=== PATIENT | female | born 1955 | race Caucasian/White ===

== ENCOUNTER → 2016-11-30 | Outpatient (CLI) | payer BC ==
[~2016-11-30] MED LIST: ACYC-251 PO; ALBU1AER9 INH; AMOX500C3 PO; B-COTAB18 PO; BACTRIM PO; BECL0.3A INH; BUTO10SO; CALC600T9 PO; CETI10TA84 PO; CLON1TAB3 PO; COEN1CAP28 PO; CYAN1LOZ; DIPH1TAB PO; DNSIS60 INJ; DOCU-94 PO; ENOX40IN SQ; ERGO1CAP41 PO; FENT75DI2 TOP; FLORAGEN PO; FOLI1TAB7 PO; ITRA100C PO; LACTONEX PO; MAGN1TAB41 PO; METH-307 PO; MULTTAB58 PO; NRN400 PO; OXYC1TAB3 PO; OXYSR/20 PO; POTA20TA13 PO; QUET1TAB10 PO; TOPI200T20 PO; TPRSR/25 PO; TRIM100T20 PO; TRMCR130WC TOP; VITA400C15 PO
[2016-11-30 18:16] LABS: BASO % 0.2 %; BASO ABS # 0.01 K/uL (0-0.2); COMPLETE YES; HEMATOCRIT 35.4 % (37-47); IG% 0.3 %; LYMPH % 27.1 %; LYMPH ABS # 1.56 K/uL (1.2-3.4); MEAN CELL VOLUME 106.3 fL (80-100); MEAN CORPUSCULAR HEMOGLOBIN 34.2 pg (25-34); MEAN CORPUSCULAR HGB CONC 32.2 g/dl (32-36); MEAN PLATELET VOLUME 10.8 fL (7.4-10.4); MONO % 19.3 %; NEUT % 49.1 %; PLATELET COUNT 136 K/uL (130-400); RED BLOOD COUNT 3.33 M/uL (4.2-5.4); WHITE BLOOD COUNT 5.76 K/uL (4.8-10.8)
[2016-11-30 19:33] LABS: ALKALINE PHOSPHATASE 93 U/L (45-117); AST/SGOT 35 U/L (15-37); BLOOD UREA NITROGEN 9 mg/dl (7-18); BUN/CREATININE RATIO 6.5 (10-20); CALCIUM 8.9 mg/dl (8.5-10.1); CARBON DIOXIDE 27 mmol/L (21-32); CHLORIDE 109 mmol/L (98-107); GLUCOSE 97 mg/dl (70-99); POTASSIUM 5.1 mmol/L (3.5-5.1); SODIUM 142 mmol/L (136-145)
[2016-11-30 19:35] LABS: ALT/SGPT 73 U/L (12-78)
[2016-12-01 06:28] LABS: ESTIMATED AVERAGE GLUCOSE 123 mg/dl; HA1C FLAG Normal (Normal)
--- NOTE | 2016-12-06 12:19 | CODING QUERY MEDICAL NECESSITY ---
SUPPORTING DIAGNOSIS NEEDED A supporting diagnosis is required for the test/procedure performed on this patient in order for us to be reimbursed by the patient's insurance. Please provide a supporting diagnosis for the following test/procedure listed below next to the test name along with your signature. *If there is no additional diagnosis for this patient that would support the following test/procedure please document that below next to the test/procedure. Test(s)/Procedure(s) that require a supporting diagnosis: * GLYCATED HEMOGLOBIN DIAGNOSIS: * DOS: 11/30/16 Provider Signature: Date: Thank you Zeina Molina Health Information Management Once completed, please kindly fax back to [phone] For questions please call [phone]
== END | disposition home or self-care (01) ==
LOC: C.LABBFT 12:48
PROVIDERS: ATTEND Internal Medicine
DX: D64.9 Anemia, unspecified (principal); E55.9 Vitamin D deficiency, unspecified; R73.03 Prediabetes; Z51.81 Encounter for therapeutic drug level monitoring; Z79.01 Long term (current) use of anticoagulants; Z86.718 Personal history of other venous thrombosis and embolism

== ENCOUNTER → 2016-12-20 | Outpatient (CLI) | payer BC ==
[2016-12-20 14:17] LABS: BASO % 0.1 %; BASO ABS # 0.01 K/uL (0-0.2); COMPLETE YES; EOS % 1.4 %; HEMATOCRIT 36.5 % (37-47); IG% 0.5 %; LYMPH % 20.3 %; MEAN CELL VOLUME 103.4 fL (80-100); MEAN CORPUSCULAR HEMOGLOBIN 33.7 pg (25-34); MEAN CORPUSCULAR HGB CONC 32.6 g/dl (32-36); MEAN PLATELET VOLUME 10.4 fL (7.4-10.4); MONO % 13.3 %; NEUT % 64.4 %; PLATELET COUNT 123 K/uL (130-400); RED BLOOD COUNT 3.53 M/uL (4.2-5.4); WHITE BLOOD COUNT 8.87 K/uL (4.8-10.8)
[2016-12-20 15:21] LABS: BLOOD UREA NITROGEN 15 mg/dl (7-18); BUN/CREATININE RATIO 12.4 (10-20); CALCIUM 8.4 mg/dl (8.5-10.1); CARBON DIOXIDE 23 mmol/L (21-32); CHLORIDE 109 mmol/L (98-107); GLUCOSE 99 mg/dl (70-99); POTASSIUM 4.2 mmol/L (3.5-5.1); SODIUM 142 mmol/L (136-145)
== END | disposition home or self-care (01) ==
LOC: C.LAB 13:00
PROVIDERS: ATTEND Urology
DX: N13.30 Unspecified hydronephrosis (principal)

== ENCOUNTER 2017-01-11 13:00 | Day surgery (SDC) | payer BC ==
[2016-12-28 13:38] VITALS: BMI 34.0
[~2017-01-11] VITALS: Ht 154.9 cm; Wt 81.8 kg
[~2017-01-11 13:00] MED LIST changes: -BACTRIM PO; +CIPROFLOXACIN / D5W 400 MG IV SCH; -DIPH1TAB PO; -FLORAGEN PO; +GENTAMICIN INJ 80 MG in DEXTROSE 5% 100ML 100 ML IV SCH; -ITRA100C PO; +LACTATED RINGER'S 1000ML 1,000 ML IV SCH
--- NOTE | 2017-01-11 13:17 | History & Physical Bridge Note ---
H&P Re-Evaluation Bridge Note: I have examined the patient, reviewed the History & Physical and in the interval since the performance of the History & Physical I have noted the following changes of clinical significance: No changes noted
[2017-01-11 13:23] VITALS: BP 117/61; PULSE 73; TEMP 36.9; O2SAT 92; Ht 154.9 cm; Wt 81.8 kg
[2017-01-11] MEDS ORDERED: PROPOFOL IV EMULSION 10 MG/ML 20 ML VIAL IV ONE (13:43)
[2017-01-11] MEDS ORDERED: DEXAMETHASONE SOD INJ 4 MG/ML VIAL ONE (13:43)
[2017-01-11] MEDS ORDERED: FENTANYL CITRATE INJ 50 MCG/1 ML 2 ML VIAL ONE (13:43)
[2017-01-11] MEDS ORDERED: ONDANSETRON INJ 2 MG/ML 2 ML VIAL ONE (13:43)
[2017-01-11] MEDS ORDERED: LIDOCAINE HCL 2% 2 ML VIAL (20MG/ML) ONE (13:43)
[2017-01-11] MEDS ORDERED: MIDAZOLAM HCL 1 MG/ML 2ML VIAL ONE (13:43)
[2017-01-11] MEDS ORDERED: CONRAY 30% 150ML BOTTLE ONE (14:24)
[2017-01-11] MEDS ORDERED: ONDANSETRON INJ 2 MG/ML 2 ML VIAL IV PRN (14:30)
[2017-01-11] MEDS ORDERED: ATROPINE SULFATE 0.1 MG/ML 5ML SYR IV PRN (14:30)
[2017-01-11] MEDS ORDERED: FENTANYL CITRATE INJ 50 MCG/1 ML 2 ML VIAL IV PRN (14:30)
[2017-01-11] MEDS ORDERED: TRIM100T20 PO (15:05)
--- NOTE | 2017-01-11 15:06 | [facility] Post Operative Brief Note ---
Immediate Operative Summary Operative Date Jan 11, 2017. Pre-Operative Diagnosis Chronic Bilateral Hydronephrosis Post-Operative Diagnosis Chronic Bilateral Hydronephrosis Procedure(s) Performed Cystoscopy, Right Retrograde Pylography; Bilateral Stent Exchange Surgeon Dr. Sean Barrett Sales Office Administrator Surgeon(s) none Estimated Blood Loss 0 cc Findings Bilateral stents in good position Specimens none per surgeon Drains 6 fr 24 cm JJ bilateral ureteral stents Anesthesia MAC Complication(s) None Disposition Recovery Room / PACU
--- NOTE | 2017-01-11 15:10 | Discharge Instructions ---
Discharge Instructions Date of Service Jan 11, 2017. Admission Reason for Admission: Bilateral Hydronephrosis Discharge Discharge Diagnosis / Problem: Bilateral hydro s/p stent exchange Discharge Goals Goal(s): Improve function, Improve disease control, Therapeutic intervention Activity Recommendations Activity Limitations: resume your previous activity Lifting Limitations: none Exercise/Sports Limitations: as tolerated May Resume Sexual Activity: when tolerated Shower/Bathe: no limitations Driving or Machine Use: resume 1 day after discharge . Instructions / Follow-Up Instructions / Follow-Up As scheduled Discharge Diet Recommended Diet: Regular Diet (good fluid intake) Procedures Procedures Performed: Cystoscopy, stent exchange Pending Studies Studies pending at discharge: no Laboratory Results Hemoglobin A1c Test 11/30/16 14:41 Range/Units Estimated Average Glucose 123 mg/dl Hemoglobin A1c 5.9 H 4.5-5.6 % Medical Emergencies . Who to Call and When: Medical Emergencies: If at any time you feel your situation is an emergency, please call 911 immediately. . Non-Emergent Contact Non-Emergency issues call your: Urologist Call Non-Emergent contact if: you have a fever, temperature is above 101, your pain is not controlled, your pain is worsening, your pain is unusual for you, your pain is concerning you, you have any medication questions . . "Provider Documentation" section prepared by Theo Barrett. VTE Core Measure Inpt VTE Proph given/why not?: SCD's
[2017-01-11] MEDS ORDERED: OXYCODONE HCL IR 5 MG TAB (IMMEDIATE RELEASE) PO PRN (15:15)
[2017-01-11] MEDS ORDERED: PHENAZOPYRIDINE HCL 100 MG TAB PO PRN (15:15)
--- NOTE | 2017-01-11 15:21 | DIAGNOSTIC IMAGING REPORT ---
RETROGRADE INCLUDES KUB HISTORY: BILATERAL RETROGRADES AND STENT EXCHANGE FLUOROSCOPY TIME: 1 minute. FINDINGS: 6 fluoroscopic spot images were submitted for review. Initial images demonstrate retrograde opacification of the right renal collecting system. This is followed by bilateral ureteral stent placement. Only the proximal portion of the stents are visualized and appear to be in good position. IMPRESSION: Fluoroscopy provided for bilateral ureteral stent placement. Electronically signed by: Jimi Bangura M.D. 01/11/2017 3:20 PM Dictated Date/Time: 01/11/2017 3:19 PM
--- NOTE | 2017-01-11 15:33 | OPERATIVE REPORT ---
DATE OF OPERATION: 01/11/2017 PREOPERATIVE DIAGNOSIS: Chronic bilateral hydronephrosis with history of renal failure managed with indwelling stents. POSTOPERATIVE DIAGNOSIS: Same. PROCEDURE: Cystoscopy, right retrograde pyelography, bilateral ureteral stent exchange. SURGEON: Dr. Theo Barrett. INTERIOR ASSEMBLIES INSTALLER: None. ANESTHESIA: Monitored anesthesia care with sedation. COMPLICATIONS: None. FINDINGS: Good stent position on both sides. DRAINS LEFT IN PLACE: Include a 6-Australian 24 cm firm Cook ureteral stent. FINDINGS: Partially encrusted stents on both sides able to be removed easily, good stent position is noted. SPECIMENS SENT TO PATHOLOGY: None. BRIEF HISTORY: Ms. Duron is a 61-year-old female who I have seen as an outpatient for history of bilateral indwelling ureteral stents to manage her chronic hydronephrosis and renal failure. She has been moved to 4 month stent exchanges due to incrustation at her last visit. Please see H\T\P for further details. She is covered with appropriate antibiotics and has been treated preoperatively for a positive urine culture. SCDs used for DVT prophylaxis today. PROCEDURE: The patient was properly identified and brought to the operative suite. After identification and appropriate consent in the chart, monitored anesthesia care with sedation was initiated and the patient was prepped and draped in standard fashion for this procedure. time study technologist-out procedure was followed. A 22-Australian rigid cystoscope was passed into the bladder under direct visualization and bladder was surveyed in its entirety demonstrating inflamed mucosa and a posterior defect from her indwelling pessary. Stents were present bilaterally with some mild encrustation. The right-sided stent was grasped and brought down to the level of the meatus and attempted to be cannulated, but due to the distal stone accumulation could not be cannulated at the level of the kidney. Wire was able to be placed alongside the stent; however, without difficulties and up to the level of the renal pelvis. Stent was removed and open ended catheter was advanced over the wire. Collecting system was opacified and wire was replaced. A 6 Australian 24 cm double-J stent was advanced with a full coil present within the renal pelvis and a full coil present within the bladder. Attention was then turned to the left hand side. The position of the stent was inspected. The right side was used as a landmark and therefore left side retrograde pyelography was not performed. The wire was simply passed alongside the stent which was then removed. A 6 Australian 24 cm double-J ureteral stent was advanced with a full coil present within the bladder and a full coil at the level of the renal pelvis. Bladder was drained, the cystoscope was removed, anesthesia was reversed. The patient was transferred to recovery room in stable condition. FOLLOW-UP CARE: We will extend the patient's course of preoperative trimethoprim for a few days. No analgesics in the postoperative period. We will keep it 4 month stent exchanges seeing her findings today. The patient's postoperative appointment is confirmed. The patient is instructed to contact us should she note any fevers, chills, nausea, vomiting, or any other significant difficulties in the postoperative period. I attest to the content of the Intraoperative Record and any orders documented therein. Any exceptio ns are noted below.
--- NOTE | 2017-01-11 15:40 | Anesthesiology Progress Note ---
Anesthesia Post Op Note Date & Time Jan 11, 2017 at 15:40 Vital Signs Vital Signs Past 12 Hours Date Time Temp Pulse Resp B/P Pulse Ox O2 Delivery O2 Flow Rate FiO2 01/11/17 15:35 36.7 59 16 102/56 98 Room Air 01/11/17 15:25 36.7 61 16 99/59 97 Room Air 01/11/17 15:15 66 16 104/60 99 Room Air 01/11/17 15:06 36.7 69 16 87/56 99 Room Air 01/11/17 13:23 36.9 73 18 117/61 92 Room Air Notes Mental Status: alert / awake / arousable, participated in evaluation Pt Amnestic to Procedure: Yes Nausea / Vomiting: adequately controlled Pain: adequately controlled Airway Patency, RR, SpO2: stable & adequate BP & HR: stable & adequate Hydration State: stable & adequate Anesthetic Complications: no major complications apparent
[2017-01-11 15:47] VITALS: BP 109/61; PULSE 65; TEMP 36.7; O2SAT 100
[2017-01-11 16:15] VITALS: BP 99/55; PULSE 60; TEMP 36.6; O2SAT 97
[2017-01-11 16:44] VITALS: BP 114/59; PULSE 62; TEMP 36.6; O2SAT 95
[2017-04-30] MEDS ORDERED: FLORAGEN PO (09:07)
[2017-04-30] MEDS ORDERED: BACTRIM PO (09:15)
[2017-04-30] MEDS ORDERED: DIPH1TAB PO (09:15)
[2017-06-08] MEDS ORDERED: ITRA100C PO (15:13)
== END 2017-01-11 16:45 | disposition home or self-care (01) ==
LOC: C.ACU 13:00
PROVIDERS: ATTEND Urology
DX: N13.30 Unspecified hydronephrosis (principal); Z46.6 Encounter for fitting and adjustment of urinary device; R33.9 Retention of urine, unspecified; N39.0 Urinary tract infection, site not specified; N81.11 Cystocele, midline; I12.9 Hypertensive chronic kidney disease with stage 1 through stage 4 chronic kidney disease, or unspecified chronic kidney disease; N18.3 Chronic kidney disease, stage 3 (moderate); E78.5 Hyperlipidemia, unspecified; K21.9 Gastro-esophageal reflux disease without esophagitis; M81.0 Age-related osteoporosis without current pathological fracture; D64.9 Anemia, unspecified; I20.9 Angina pectoris, unspecified; J45.909 Unspecified asthma, uncomplicated; J90 Pleural effusion, not elsewhere classified; I42.9 Cardiomyopathy, unspecified; J44.9 Chronic obstructive pulmonary disease, unspecified; B19.20 Unspecified viral hepatitis C without hepatic coma

== ENCOUNTER → 2017-02-26 | Outpatient (CLI) | payer BC ==
[~2017-02-26] MED LIST changes: +ACYC-223 PO; -ACYC-251 PO; +ALBU18002 INH; +AMX875 PO; +BACTRIM PO; +CALC600T37 PO; -CIPROFLOXACIN / D5W 400 MG IV SCH; +DIPH1TAB87 PO; -ERGO1CAP41 PO; +ERGO500011 PO; +FLORAGEN PO; -GENTAMICIN INJ 80 MG in DEXTROSE 5% 100ML 100 ML IV SCH; +ITRA100C PO; -LACTATED RINGER'S 1000ML 1,000 ML IV SCH; +METO-452 PO; +OXYC20TA50 PO; +PROBCAP2 PO; +QVRINH80 INH; +STDN; +TOPI100T34 PO; +TRIM100T2 PO; -TRIM100T20 PO; +VITA400C3 PO
== END | disposition home or self-care (01) ==
LOC: C.LAB1850 14:18
PROVIDERS: ATTEND Internal Medicine Rheumatology
DX: M81.0 Age-related osteoporosis without current pathological fracture (principal); S62.101A Fracture of unspecified carpal bone, right wrist, initial encounter for closed fracture; X58.XXXA Exposure to other specified factors, initial encounter

== ENCOUNTER → 2017-04-02 | Outpatient (CLI) | payer BC | END | disposition home or self-care (01) | LOC: C.MAMM 12:50 | PROVIDERS: ATTEND Internal Medicine Rheumatology | DX: M81.0 Age-related osteoporosis without current pathological fracture (principal); S62.101A Fracture of unspecified carpal bone, right wrist, initial encounter for closed fracture; X58.XXXA Exposure to other specified factors, initial encounter ==

== ENCOUNTER → 2017-04-17 | Outpatient (CLI) | payer BC ==
[~2017-04-17] MED LIST changes: -ACYC-223 PO; +ACYC-251 PO; -ALBU18002 INH; -AMX875 PO; -BACTRIM PO; -CALC600T37 PO; -DIPH1TAB87 PO; +ERGO1CAP41 PO; -ERGO500011 PO; -FLORAGEN PO; -ITRA100C PO; -METO-452 PO; -OXYC20TA50 PO; -PROBCAP2 PO; -QVRINH80 INH; -STDN; -TOPI100T34 PO; -TRIM100T2 PO; +TRIM100T20 PO; -VITA400C3 PO
== END | disposition home or self-care (01) ==
LOC: C.LAB1850 14:39
PROVIDERS: ATTEND Internal Medicine Rheumatology
DX: M81.0 Age-related osteoporosis without current pathological fracture (principal)

== ENCOUNTER → 2017-04-25 | Outpatient (CLI) | payer BC ==
[~2017-04-25] MED LIST changes: +ALBU18002 INH; +BACTRIM PO; +DIPH1TAB PO; +FLORAGEN PO; +ITRA100C PO; +METO1TAB66 PO; +OXYC20TA50 PO; +PROBCAP2 PO; +QVRINH80 INH; +TOPI100T34 PO; +VITA400C3 PO
--- NOTE | 2017-04-25 08:00 | DIAGNOSTIC IMAGING REPORT ---
ABDOMEN COMPLETE (US) CLINICAL HISTORY: FOLLICULAR LYMPHOMA COMPARISON STUDY: 09/12/2016 FINDINGS: The liver is of slightly increased echogenicity. No focal hepatic masses are visualized. The gallbladder is mildly distended. Tiny calculi are visualized. There is no gallbladder wall thickening. The common bile duct measures 7 mm. No pancreatic masses are visualized. There is mild splenic enlargement (13.7 cm). The right kidney measures 9.6 cm in length. The left kidney measures 10.9 cm in length. 2 left renal cysts are visualized measuring 1 cm in diameter. The IVC appear normal as visualized. There is no evidence of abdominal aortic dilatation. The distal abdominal aorta was nonvisualized. IMPRESSION: 1. Slight increase in hepatic echogenicity. No focal hepatic masses identified 2. Mild gallbladder distention. Cholelithiasis. 3. 7 mm common bile duct. 4. Mild splenomegaly Electronically signed by: Octavio Penny M.D. 04/25/2017 7:58 AM Dictated Date/Time: 04/25/2017 7:55 AM
--- NOTE | 2017-04-25 08:06 | DIAGNOSTIC IMAGING REPORT ---
CT SCAN OF THE CHEST WITHOUT IV CONTRAST CLINICAL HISTORY: 62-year-old female with history of follicular lymphoma; reported additional history of lung cancer. COMPARISON STUDY: 08/10/2016 and additional priors dating back to 07/26/2015. TECHNIQUE: CT scan of the thorax was performed from the thoracic inlet to the upper abdomen. Images are reviewed in the axial, sagittal, and coronal planes. IV contrast was not administered for this examination. CT DOSE: 340.75 mGy.cm FINDINGS: On soft tissue windows, normal thyroid and thoracic inlet are noted. No axillary lymphadenopathy. Mildly prominent subcentimeter mediastinal lymph nodes in the tracheal and precarinal regions, which have slightly decreased in size from prior exams. The largest node measures 7 mm in short axis (series 4 image 99), previously 8 mm in July 2016 and 11 mm in July 2015. Few small pericardial lymph nodes also noted, unchanged. Aortic arch atherosclerosis with a normal caliber aorta. Main pulmonary artery mildly enlarged measuring 3.1 cm in transverse dimension. Coronary artery calcification noted. Normal heart size. No pericardial or pleural effusion. The upper abdomen demonstrates a liver density from 40-45 Hounsfield units, suggestive of mild steatosis. Few calcifications in the spleen may relate to prior injury, infarct or old granulomatous disease. Few prominent lymph nodes in the celiac axis measure up to 10 mm in short axis (series 4 image 264), unchanged from prior. On lung windows, emphysematous changes in the mid to upper lungs again noted. Reticular opacities extending from the right hilum to the bandlike peripheral consolidation at the right apex in the subpleural/pleural based region of the anterior segment of the right upper lobe. This measures approximately 3.2 x 1.1 cm, previously 3.6 x 1.2 cm. Minimal reticular opacities noted dependently at the right lung base and anterolaterally in the left upper lobe, possibly mild fibrotic changes. No new pulmonary nodule or mass. On bone windows, at the site of chronic right anterior second and third rib deformities, increased dense callus or soft tissue noted at the anterior right second rib deformity over time, although unchanged from most recent prior. This may represent slow healing; attention on follow-up. No new destructive osseous lesion. IMPRESSION: 1. Stable appearance of the consolidative subpleural/pleural based changes in the right upper lobe. No new pulmonary nodule or mass. 2. Emphysema. 3. Continued slight interval decreased prominence of mediastinal lymph nodes. No new lymphadenopathy. Electronically signed by: Babar Kaur 04/25/2017 8:04 AM Dictated Date/Time: 04/25/2017 7:40 AM
== END | disposition home or self-care (01) ==
LOC: C.ULTR 07:04
PROVIDERS: ATTEND Nurse Practitioner Family
DX: C82.10 Follicular lymphoma grade II, unspecified site (principal); J43.9 Emphysema, unspecified; N13.30 Unspecified hydronephrosis

== ENCOUNTER → 2017-04-25 | Outpatient (CLI) | payer BC | END | disposition home or self-care (01) | LOC: C.LAB 12:45 | PROVIDERS: ATTEND Urology | DX: N13.30 Unspecified hydronephrosis (principal) ==

== ENCOUNTER 2017-05-10 09:57 | Day surgery (SDC) | payer BC ==
[2017-04-30 09:08] VITALS: BMI 34.0
[~2017-05-10] VITALS: Ht 154.9 cm; Wt 81.8 kg
[~2017-05-10 09:57] MED LIST changes: -ACYC-251 PO; -ALBU18002 INH; +ATROPINE SULFATE 0.1 MG/ML 5ML SYR IV PRN; +CIPROFLOXACIN / D5W 400 MG IV SCH; +EpHEDrine SULFATE INJ 50 MG/ML AMP IV PRN; +FENTANYL CITRATE INJ 50 MCG/1 ML 2 ML VIAL IV PRN; -ITRA100C PO; +LACTATED RINGER'S 1000ML 1,000 ML IV SCH; -LACTONEX PO; -METO1TAB66 PO; +ONDANSETRON INJ 2 MG/ML 2 ML VIAL IV PRN; -OXYC20TA50 PO; -PROBCAP2 PO; -QVRINH80 INH; -TOPI100T34 PO; -TRIM100T20 PO; -VITA400C3 PO
[2017-05-10] MEDS ORDERED: ACYC-251 PO (10:42)
[2017-05-10 10:49] VITALS: BP 99/58; PULSE 89; TEMP 37.3; O2SAT 93; Ht 154.9 cm; Wt 81.8 kg
[2017-05-10] MEDS ORDERED: NURSING VERBAL MED ORDER ONE (11:30)
[2017-05-10] MEDS ORDERED: LIDOCAINE HCL 2% 2 ML VIAL (20MG/ML) ONE (11:31)
[2017-05-10] MEDS ORDERED: PROPOFOL IV EMULSION 10 MG/ML 20 ML VIAL IV ONE (11:31)
[2017-05-10] MEDS ORDERED: MIDAZOLAM HCL 1 MG/ML 2ML VIAL ONE ×2 (11:31→12:49)
[2017-05-10] MEDS ORDERED: FENTANYL CITRATE INJ 50 MCG/1 ML 2 ML VIAL ONE (11:32)
[2017-05-10] MEDS ORDERED: CONRAY 30% 150ML BOTTLE ONE (12:21)
--- NOTE | 2017-05-10 13:16 | Discharge Instructions ---
Discharge Instructions Date of Service May 10, 2017. Admission Reason for Admission: Bilateral Hydronephrosis Discharge Discharge Diagnosis / Problem: Bilateral hydronephrosis with indwelling stents Discharge Goals Goal(s): Improve function, Improve disease control Activity Recommendations Activity Limitations: as noted below Lifting Limitations: no more than 25 pounds, gradually increase as tolerated Exercise/Sports Limitations: rest today, gradually increase as tolerated May Resume Sexual Activity: when tolerated Shower/Bathe: no limitations Driving or Machine Use: resume 1 day after discharge . Instructions / Follow-Up Instructions / Follow-Up As scheduled in office No new prescriptions, complete antibiotics as prescribed Discharge Diet Recommended Diet: Regular Diet (good hydration) Procedures Procedures Performed: Cystoscopy, Bilateral Ureteral Stent Exchange Pending Studies Studies pending at discharge: no Medical Emergencies . Who to Call and When: Medical Emergencies: If at any time you feel your situation is an emergency, please call 911 immediately. . Non-Emergent Contact Non-Emergency issues call your: Urologist Call Non-Emergent contact if: you have a fever, temperature is above 101, your pain is not controlled, your pain is worsening, your pain is unusual for you, your pain is concerning you . . "Provider Documentation" section prepared by Theo Barrett. . VTE Core Measure Inpt VTE Proph given/why not?: SCD's
--- NOTE | 2017-05-10 13:19 | [facility] Post Operative Brief Note ---
Immediate Operative Summary Operative Date May 10, 2017. Pre-Operative Diagnosis Bilateral hydronephrosis, history of renal failure Post-Operative Diagnosis Bilateral hydronephrosis, history of renal failure Procedure(s) Performed Cystoscopy, Bilateral Ureteral Stent Exchange Surgeon Dr. Mirella Barrett Airport Ramp Agent Surgeon(s) none Estimated Blood Loss 0cc Findings Pessary in position, good stent position bilaterally after completion of case on fluoro Specimens None per surgeon Drains 6 fr 24 cm bilaterally Firm Cook in good position on fluoro Anesthesia MAC Complication(s) None Disposition Recovery Room / PACU
--- NOTE | 2017-05-10 13:21 | DIAGNOSTIC IMAGING REPORT ---
KUB HISTORY: 62 years Female B/L STENT EXCHANGE COMPARISON: Retrograde cystourethrogram images from 08/31/2016 TECHNIQUE: 2 anterior spot fluoroscopic images of the abdomen were obtained utilizing 39.1 seconds of fluoroscopy time. FINDINGS: The first image demonstrates a guidewire and stent on the right which appears to be in appropriate position, only the proximal portion is imaged. The second image demonstrates a left sided ureteral stent in place which appears to be in satisfactory position as well, only the proximal portion imaged. IMPRESSION: Bilateral proximal pigtail portions of the ureteral stents are imaged and appear to be in appropriate position. The above report was generated using voice recognition software. It may contain grammatical, syntax or spelling errors. Electronically signed by: Alfredo Yoder M.D. 05/10/2017 1:19 PM Dictated Date/Time: 05/10/2017 1:17 PM
--- NOTE | 2017-05-10 13:27 | [facility] Operative Report ---
Operative Report Operative Date May 10, 2017. Pre-Operative Diagnosis Bilateral hydronephrosis, history of renal failure Post-Operative Diagnosis Bilateral hydronephrosis, history of renal failure Procedure(s) Performed Cystoscopy, Bilateral Ureteral Stent Exchange Surgeon Dr. Mirella Barrett Occupational Health And Safety Officer Surgeon(s) none Estimated Blood Loss 0cc Findings Good stent position on fluoro, pessary in good position Specimens None per surgeon Drains 6 fr 24 cm bilaterally Firm Cook in good position on fluoro Anesthesia MAC Complication(s) None Disposition Recovery Room / PACU Indications Bilateral hydronephrosis managed with indwelling stents Description of Procedure Patient was properly identified and brought to the operative suite after identification for appropriate consent of the chart. Intravenous ciprofloxacin , which the patient is tolerated in the past, was used for antibiotic prophylaxis. SCDs were in place. Full timeout procedure was followed. Monitored anesthesia care with mask sedation was used for analgesia. Patient was prepped and draped in the standard fashion for this procedure that is in a dorsal lithotomy position. 22 [place]ese rigid cystoscope was passed into the bladder under direct visualization and posterior bladder wall defect from the patient's indwelling pessary was noted. This was appreciated to be in good position. Right-sided ureteral stent was grasped and brought down to the level of the meatus using a stent grasper. This was noted to be externally unencrusted but provided a small amount of resistance to passage of the wire through the lumen of the catheter. A sensor tip wire was therefore passed alongside the ureteral stent without difficulties up to the left of the right renal pelvis under fluoroscopic guidance. Indwelling stent was removed without problems and a 6 [place]ese 24 cm firm Cook ureteral stent was advanced with a full coil at the level of the ureteral orifice and a full coil in the right upper quadrant at the level of the kidney. Attention was then turned to the left- handed side where this procedure was repeated. Again stent was noted to be relatively on encrusted compared to previous baseline. Good position of the new stent was noted. Urine was noted to be clear within the bladder and mild erythema appreciated. No intravesical masses or calculi noted. Bladder was drained and cystoscope was removed. Sedation was reversed patient was transferred to the recovery room in stable condition. I attest to the content of the Intraoperative Record and any orders documented therein. Any exceptions are noted below.
[2017-05-10] MEDS ORDERED: OXYCODONE/ACETAMINOPHEN 5-325 TAB PO PRN ×2 (13:30)
--- NOTE | 2017-05-10 13:38 | Anesthesiology Progress Note ---
Anesthesia Post Op Note Date & Time May 10, 2017 at 13:38 Vital Signs Pain Intensity: 0 Vital Signs Past 12 Hours Date Time Temp Pulse Resp B/P (MAP) Pulse Ox O2 Delivery O2 Flow Rate FiO2 05/10/17 13:30 76 12 91/51 94 Room Air 05/10/17 13:20 76 10 99/51 98 Oxymask 5 05/10/17 13:14 36.8 79 10 93/50 98 Oxymask 9 05/10/17 10:49 37.3 89 20 99/58 (72) 93 Room Air Notes Mental Status: alert / awake / arousable, participated in evaluation Pt Amnestic to Procedure: Yes Nausea / Vomiting: adequately controlled Pain: adequately controlled Airway Patency, RR, SpO2: stable & adequate BP & HR: stable & adequate Hydration State: stable & adequate Anesthetic Complications: no major complications apparent
[2017-05-10 14:20] VITALS: BP 98/63; PULSE 71; O2SAT 95
[2017-05-10 15:00] VITALS: BP 95/57; PULSE 72; TEMP 36.6; O2SAT 93
[2017-06-08] MEDS ORDERED: ITRA100C PO (15:13)
[2017-07-31] MEDS ORDERED: TOPI100T34 PO (11:29)
[2017-07-31] MEDS ORDERED: QVRINH80 INH (11:29)
[2017-07-31] MEDS ORDERED: VITA400C3 PO (11:29)
[2017-07-31] MEDS ORDERED: OXYC20TA50 PO (11:29)
[2017-07-31] MEDS ORDERED: ALBU18002 INH (11:29)
[2017-07-31] MEDS ORDERED: PROBCAP2 PO (11:29)
[2017-07-31] MEDS ORDERED: METO1TAB66 PO (11:29)
== END 2017-05-10 14:50 | disposition home or self-care (01) ==
LOC: C.ACU 09:57
PROVIDERS: ATTEND Urology
DX: N13.30 Unspecified hydronephrosis (principal); J44.9 Chronic obstructive pulmonary disease, unspecified; I42.9 Cardiomyopathy, unspecified; N18.3 Chronic kidney disease, stage 3 (moderate); Z86.718 Personal history of other venous thrombosis and embolism; E78.5 Hyperlipidemia, unspecified; K21.9 Gastro-esophageal reflux disease without esophagitis; Z86.19 Personal history of other infectious and parasitic diseases; I12.9 Hypertensive chronic kidney disease with stage 1 through stage 4 chronic kidney disease, or unspecified chronic kidney disease; M81.0 Age-related osteoporosis without current pathological fracture; Z85.72 Personal history of non-Hodgkin lymphomas; Z87.81 Personal history of (healed) traumatic fracture; Z85.118 Personal history of other malignant neoplasm of bronchus and lung; Z87.440 Personal history of urinary (tract) infections; Z92.21 Personal history of antineoplastic chemotherapy; Z86.2 Personal history of diseases of the blood and blood-forming organs and certain disorders involving the immune mechanism; Z86.72 Personal history of thrombophlebitis; Z90.89 Acquired absence of other organs; Z83.3 Family history of diabetes mellitus; Z82.49 Family history of ischemic heart disease and other diseases of the circulatory system; Z87.891 Personal history of nicotine dependence; G89.29 Other chronic pain; Z79.01 Long term (current) use of anticoagulants; I34.1 Nonrheumatic mitral (valve) prolapse; Z86.73 Personal history of transient ischemic attack (TIA), and cerebral infarction without residual deficits; M19.90 Unspecified osteoarthritis, unspecified site; Z99.81 Dependence on supplemental oxygen; I25.10 Atherosclerotic heart disease of native coronary artery without angina pectoris; G62.9 Polyneuropathy, unspecified; F41.9 Anxiety disorder, unspecified

== ENCOUNTER → 2017-08-08 | Day surgery (SDC) | payer BC ==
[2017-07-31 11:32] VITALS: Ht 154.9 cm; Wt 84.1 kg
[~2017-08-08] VITALS: Ht 154.9 cm; Wt 84.1 kg
[~2017-08-08] MED LIST changes: +ACYC-251 PO; +ALBU18002 INH; -ALBU1AER9 INH; -ATROPINE SULFATE 0.1 MG/ML 5ML SYR IV PRN; -BACTRIM PO; -BECL0.3A INH; -BUTO10SO; -CIPROFLOXACIN / D5W 400 MG IV SCH; -CYAN1LOZ; -DIPH1TAB PO; -EpHEDrine SULFATE INJ 50 MG/ML AMP IV PRN; -FENTANYL CITRATE INJ 50 MCG/1 ML 2 ML VIAL IV PRN; -FLORAGEN PO; +ITRA100C PO; -LACTATED RINGER'S 1000ML 1,000 ML IV SCH; +LIDOCAINE HCL 2% 2 ML VIAL (20MG/ML) ONE; +METO1TAB66 PO; +MIDAZOLAM HCL 1 MG/ML 2ML VIAL ONE; -ONDANSETRON INJ 2 MG/ML 2 ML VIAL IV PRN; +ONDANSETRON INJ 2 MG/ML 2 ML VIAL ONE; +OXYC20TA50 PO; -OXYSR/20 PO; +PROBCAP2 PO; +PROPOFOL IV EMULSION 10 MG/ML 20 ML VIAL IV ONE; +QVRINH80 INH; +TOPI100T34 PO; -TOPI200T20 PO; -TPRSR/25 PO; -VITA400C15 PO; +VITA400C3 PO
--- NOTE | 2017-08-08 13:04 | Endo History and Physical ---
History & Physical Date of Service: Aug 08, 2017. Chief Complaint: History of colon polyps Referring Physician: Reynold Villegas History of Present Illness 62 yo CF who presents for colonoscopy secondary to history of colon polyps. Past Medical History Osteoporosis, Arthritis, Fractures, Asthma, Blood Dyscrasias, Cancer, Hypertension, Thrombophlebitis, COPD, Kidney Disease, CVA/TIA, Other, Depression Past Surgical History Hx Cardiac Surgery: No Hx Internal Defibrillator: No Hx Pacemaker: No Hx Abdominal Surgery: Yes (TUBAL LIGATION, LIVER BIOPSY) Hx of Implantable Prosthesis: No Hx Post-Op Nausea and Vomiting: No Hx Cancer Surgery: Yes (LUNG BIOPSY, LYMPH NODE BIOPSY) Hx Thoracic Surgery: Yes (BRONCHOSCOPIES) Hx Orthopedic: Yes (BURSA REMOVAL RT KNEE, RT ARM "NERVE RELEASE") Hx Urinary Tract Surgery: Yes (MULTIPLE URETAL STENTS) Family History None Social History Smoking Status: Former Smoker Hx Substance Use: No Hx Alcohol Use: Yes (QUIT 20-30 YEARS AGO) Allergies Coded Allergies: Levofloxacin (Verified Allergy, Intermediate, numbness/weakness, 07/31/17) Pt is OK to receive CIPRO Allopurinol (Verified Allergy, Unknown, rash, 07/31/17) BEE STING (Verified Allergy, Unknown, SWELLING AT SITE-SOB AT TIMES, 07/31) Iodinated Diagnostic Agents (Verified Allergy, Unknown, Hives, 07/31/17) Iodine (Verified Allergy, Unknown, HIVES, 07/31/17) Pregabalin (Verified Allergy, Unknown, fever?/?rash, 07/31/17) Magnolia (Verified Allergy, Unknown, HIVES, 07/31/17) Sulfa Antibiotics (Verified Allergy, Unknown, RASH, 07/31/17) Venlafaxine (Verified Allergy, Unknown, UNKNOWN, 07/31/17) Gluten (Verified Adverse Reaction, Severe, Celiac Dz = GI symptoms, ) Adhesives (Verified Adverse Reaction, Unknown, red torn skin, 07/31/17) BAND AIDS OKAY - [place] OKAY - PAPER TAPE OKAY Propoxyphene (Verified Adverse Reaction, Unknown, STEAM PIPE FITTER side effects, ) Current Medications Reported Home Medications Medications Dose Route/Sig Max Daily Dose Days Date Category Dose Instructions Florajen3 (Probiotic Product) 1 Cap Cap 1 Cap PO QAM 07/31/17 Reported Vitamin E 400 Iu (Vitamin E) 400 Unit Cap 400 Inter.unit PO QAM 07/31/17 Reported Qvar (Beclomethasone Dip) 80 Mcg/Act Aer 2 Puffs INH BID 07/31/17 Reported Proair Respiclick (Albuterol Sulfate) 108 Mcg/Act Aer 2 Puffs INH Q4H PRN 07/31/17 Reported Oxycontin (Oxycodone Hcl) 20 Mg Tab 1 Tab PO BID 07/31/17 Reported Topamax (Topiramate) 100 Mg Tab 100 Mg PO HS 07/31/17 Reported Toprol Xl (Metoprolol Succinate) 50 Mg Tab 50 Mg PO QAM 07/31/17 Reported Sporanox (Itraconazole) 100 Mg Cap 100 Mg PO BID 06/08/17 Reported Zovirax (Acyclovir) 800 Mg Tab 800 Mg PO QAM 05/10/17 Reported WILL COMPLETE 08-03-17 Fentanyl 75 Mcg/Hr Dis 1 Dose TOP Q72H 12/28/16 Reported Prolia (Denosumab) 60 Mg/1 Ml Inj 60 Mg INJ Q6 MONTHS 08/16/16 Reported Calcium + D (Calcium Carbonate-Vitamin D) 1 Tab Tab 1 Tab PO QAM 08/16/16 Reported 600 MG / 800 IU Colace (Docusate Sodium) 100 Mg Cap 1 Cap PO TID 02/28/16 Reported Amoxil (Amoxicillin) 500 Mg Cap 500 Mg PO BID 02/28/16 Reported Roxicodone Ir (Oxycodone HCl) 5 Mg Tab 5 Mg PO Q2H PRN 08/26/15 Reported moderate pain Magnesium (Magnesium Oxide) 400 Mg Tab 400 Mg PO QAM 07/16/15 Reported Klonopin (Clonazepam) 1 Mg Tab 1 Mg PO HS 07/16/15 Reported Potassium Chloride Er (Potassium Chloride Microencaps) 20 Meq Tab 20 Meq PO QAM 06/18/15 Reported Robaxin (Methocarbamol) 750 Mg Tab 750 Mg PO BID 04/07/15 Reported Multivitamin (Multiple Vitamin) 1 Tab Tab 1 Tab PO QAM 02/11/15 Reported Co Q10 (Coenzyme Q10) 50 Mg Cap 200 Mg PO QAM 02/11/15 Reported Aristocort 0.1% (Triamcinolone Acet) 90 Appln/30 Gm Cr 1 Appln TOP BID PRN 02/11/15 Reported Lovenox (Enoxaparin) 40 Mg/0.4 Ml Inj 40 Mg SQ QAM 02/11/15 Reported Folvite (Folic Acid) 1 Mg Tab 1 Mg PO QAM 02/11/15 Reported Seroquel (Quetiapine Fumarate) 200 Mg Tab 200 Mg PO HS 02/11/15 Reported Vitamin D 86478 Unit (Ergocalciferol) 50,000 Unit Cap 1 Tab PO WK 01/08/15 Reported GIVE ON SUNDAY Vitamin B Complex (B-Complex Vitamins) 1 Tab Tab 1 Tab PO QAM 01/08/15 Reported Gabapentin 400 Mg Cap 400 Mg PO TID 11/13/14 Reported Zyrtec (Cetirizine HCl) 10 Mg Tab 10 Mg PO QAM 04/16/14 Reported Vital Signs Weight (Kilograms): 84.09 Height (Feet): 5 Height (Inches): 1 Physical Exam General Appearance: WD/WN, no apparent distress Respiratory/Chest: Auscultation: breath sounds normal Cardiovascular: Heart Auscultation: RRR Abdomen: Bowel Sounds: normal Inspection & Palpation: soft, non-distended, no tenderness, guarding & rebound Assessment and Plan Assessment: 62 yo CF who presents for colonoscopy secondary to history of colon polyps. Plan: Proceed with colonoscopy.
--- NOTE | 2017-08-08 13:47 | Discharge Instructions ---
Endoscopy Patient Instructions Date / Procedure(s) Performed Aug 08, 2017. Colonoscopy Allergy Information Coded Allergies: Levofloxacin (Verified Allergy, Intermediate, numbness/weakness, 07/31/17) Pt is OK to receive CIPRO Allopurinol (Verified Allergy, Unknown, rash, 07/31/17) BEE STING (Verified Allergy, Unknown, SWELLING AT SITE-SOB AT TIMES, 07/31) Iodinated Diagnostic Agents (Verified Allergy, Unknown, Hives, 07/31/17) Iodine (Verified Allergy, Unknown, HIVES, 07/31/17) Pregabalin (Verified Allergy, Unknown, fever?/?rash, 07/31/17) [place] (Verified Allergy, Unknown, HIVES, 07/31/17) Sulfa Antibiotics (Verified Allergy, Unknown, RASH, 07/31/17) Venlafaxine (Verified Allergy, Unknown, UNKNOWN, 07/31/17) Gluten (Verified Adverse Reaction, Severe, Celiac Dz = GI symptoms, ) Adhesives (Verified Adverse Reaction, Unknown, red torn skin, 07/31/17) BAND AIDS OKAY - [place] OKAY - PAPER TAPE OKAY Propoxyphene (Verified Adverse Reaction, Unknown, 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 Colon polyps Diverticulosis Internal hemorrhoids Medication Instructions Stopped Medication(s): stopped Vit E and fish oil Sunday,last dose Lovenox Sunday OK to resume all medications today as prescribed Reported Home Medications Medications Dose Route/Sig Max Daily Dose Days Date Category Dose Instructions Florajen3 (Probiotic Product) 1 Cap Cap 1 Cap PO QAM 07/31/17 Reported Vitamin E 400 Iu (Vitamin E) 400 Unit Cap 400 Inter.unit PO QAM 07/31/17 Reported Qvar (Beclomethasone Dip) 80 Mcg/Act Aer 2 Puffs INH BID 07/31/17 Reported Proair Respiclick (Albuterol Sulfate) 108 Mcg/Act Aer 2 Puffs INH Q4H PRN 07/31/17 Reported Oxycontin (Oxycodone Hcl) 20 Mg Tab 1 Tab PO BID 07/31/17 Reported Topamax (Topiramate) 100 Mg Tab 100 Mg PO HS 07/31/17 Reported Toprol Xl (Metoprolol Succinate) 50 Mg Tab 50 Mg PO QAM 10/10/17 Reported Sporanox (Itraconazole) 100 Mg Cap 100 Mg PO BID 06/08/17 Reported Zovirax (Acyclovir) 800 Mg Tab 800 Mg PO QAM 05/10/17 Reported WILL COMPLETE 08-03-17 Fentanyl 75 Mcg/Hr Dis 1 Dose TOP Q72H 12/28/16 Reported Prolia (Denosumab) 60 Mg/1 Ml Inj 60 Mg INJ Q6 MONTHS 08/16/16 Reported Calcium + D (Calcium Carbonate-Vitamin D) 1 Tab Tab 1 Tab PO QAM 08/16/16 Reported 600 MG / 800 IU Colace (Docusate Sodium) 100 Mg Cap 1 Cap PO TID 02/28/16 Reported Amoxil (Amoxicillin) 500 Mg Cap 500 Mg PO BID 02/28/16 Reported Roxicodone Ir (Oxycodone HCl) 5 Mg Tab 5 Mg PO Q2H PRN 08/26/15 Reported moderate pain Magnesium (Magnesium Oxide) 400 Mg Tab 400 Mg PO QAM 07/16/15 Reported Klonopin (Clonazepam) 1 Mg Tab 1 Mg PO HS 07/16/15 Reported Potassium Chloride Er (Potassium Chloride Microencaps) 20 Meq Tab 20 Meq PO QAM 06/18/15 Reported Robaxin (Methocarbamol) 750 Mg Tab 750 Mg PO BID 04/07/15 Reported Multivitamin (Multiple Vitamin) 1 Tab Tab 1 Tab PO QAM 02/11/15 Reported Co Q10 (Coenzyme Q10) 50 Mg Cap 200 Mg PO QAM 02/11/15 Reported Aristocort 0.1% (Triamcinolone Acet) 90 Appln/30 Gm Cr 1 Appln TOP BID PRN 02/11/15 Reported Lovenox (Enoxaparin) 40 Mg/0.4 Ml Inj 40 Mg SQ QAM 02/11/15 Reported Folvite (Folic Acid) 1 Mg Tab 1 Mg PO QAM 02/11/15 Reported Seroquel (Quetiapine Fumarate) 200 Mg Tab 200 Mg PO HS 02/11/15 Reported Vitamin D 75236 Unit (Ergocalciferol) 50,000 Unit Cap 1 Tab PO WK 01/08/15 Reported GIVE ON SUNDAY Vitamin B Complex (B-Complex Vitamins) 1 Tab Tab 1 Tab PO QAM 01/08/15 Reported Gabapentin 400 Mg Cap 400 Mg PO TID 11/13/14 Reported Zyrtec (Cetirizine HCl) 10 Mg Tab 10 Mg PO QAM 04/16/14 Reported Provider Instructions Activity Restrictions - No exercising or heavy lifting for 24 hours. - Do not drink alcohol the day of the procedure. - Do not drive a car or operate machinery until the day after the procedure. - Do not make any important decisions or sign important papers in 24 hours after the procedure. Following Day: - Return to full activity which may include returning to work/school. Diet Start your diet with liquids and light foods (jello, soup, juice, toast). Then eat your usual diet if not nauseated. Treatment For Common After Affects For mild abdominal pain, bloating, or excessive gas: - Rest - Eat lightly - Lie on right side Follow-Up Information Follow-up with Dr. Villegas as scheduled Anesthesia Information What You Should Know You have had a procedure that required some medicine to reduce anxiety and discomfort. This treatment is called moderate sedation. After receiving the treatment, you may be sleepy, but you will be able to breathe on your own. The effects of the treatment may last for several hours. Follow these instructions along with Activity/Diet recommendations noted above: * Do NOT do anything where dizziness or clumsiness would be dangerous. * Rest quietly at home today, then you can be up and about tomorrow. * Have a responsible person stay with you the rest of today. * You may have had an I.V. today. If so, you may take the dressing off later today. Recommendations Call your doctor if: * Trouble breathing * Continuous vomiting for more than 24 hours * Temperature above 101 degrees * Severe abdominal pain or bloating * Pain not relieved by pain medicine ordered * There is increased drainage or redness from any incision * A large amount of rectal bleeding greater than 2-3 tablespoons. (If you had a polyp/s removed or have hemorrhoids, a small amount of blood - from the rectum is to be expected.) * You have any unanswered questions or concerns. IN THE EVENT OF A SERIOUS EMERGENCY, GO TO THE NEAREST EMERGENCY ROOM Your discharge instructions were prepared by provider Parker Murray. Patient Instructions Signature Page Rupali Duron Patient (or Guardian) Signature/Date: I have read and understand the instructions given to me by my caregivers. Caregiver/RN/Doctor Signature/Date: The above-named patient and/or guardian has received patient instructions on this date. + Original Patient Signature Page (only) stays with chart. Please make copy for patient.
--- NOTE | 2017-08-08 13:53 | GI REPORT ---
Procedure Date: 08/08/2017 12:53 PM Procedure: Colonoscopy Indications: High risk colon cancer surveillance: Personal history of colonic polyps Medicines: Monitored Anesthesia Care Complications: No immediate complications. Estimated Blood Loss: Estimated blood loss: none. Procedure: Pre-Anesthesia Assessment: - Prior to the procedure, a History and Physical was performed, and patient medications and allergies were reviewed. The patient's tolerance of previous anesthesia was also reviewed. The risks and benefits of the procedure and the sedation options and risks were discussed with the patient. All questions were answered, and informed consent was obtained. Prior Anticoagulants: The patient has taken Lovenox (enoxaparin), last dose was 2 days prior to procedure. ASA Grade Assessment: III - A patient with severe systemic disease. After reviewing the risks and benefits, the patient was deemed in satisfactory condition to undergo the procedure. After I obtained informed consent, the scope was passed under direct vision. Throughout the procedure, the patient's blood pressure, pulse, and oxygen saturations were monitored continuously. The scope was introduced through the anus and advanced to the terminal ileum. The colonoscopy was performed without difficulty. The patient tolerated the procedure well. The quality of the bowel preparation was good. The terminal ileum, ileocecal valve, appendiceal orifice, and rectum were photographed. Findings: Three sessile polyps were found in the descending colon and in the transverse colon. The polyps were 5 to 7 mm in size. These polyps were removed with a hot snare. Resection and retrieval were complete. Multiple small-mouthed diverticula were found in the sigmoid colon. Non-bleeding internal hemorrhoids were found during retroflexion. The hemorrhoids were small. Impression: - Three 5 to 7 mm polyps in the descending colon and in the transverse colon, removed with a hot snare. Resected and retrieved. - Diverticulosis in the sigmoid colon. - Non-bleeding internal hemorrhoids. Recommendation: - Resume previous diet. - Continue present medications. - Repeat colonoscopy for surveillance based on pathology results. - Return to primary care physician as previously scheduled. Parker Murray DO 08/08/2017 1:52:35 PM This report has been signed electronically. Note Initiated On: 08/08/2017 12:53 PM I attest to the content of the Intraoperative Record and orders documented therein, exceptions below
--- NOTE | 2017-08-08 14:11 | Anesthesiology Progress Note ---
Anesthesia Post Op Note Date & Time Aug 08, 2017 at 14:11 Vital Signs Pain Intensity: 2 Vital Signs Past 12 Hours Date Time Temp Pulse Resp B/P (MAP) Pulse Ox O2 Delivery O2 Flow Rate FiO2 08/08/17 14:03 78 20 115/70 (85) 96 Room Air 08/08/17 13:47 77 20 97/61 (73) 96 Room Air 08/08/17 13:17 36.4 80 18 124/59 (80) 94 Room Air Notes Mental Status: alert / awake / arousable, participated in evaluation Pt Amnestic to Procedure: Yes Nausea / Vomiting: adequately controlled Pain: adequately controlled Airway Patency, RR, SpO2: stable & adequate BP & HR: stable & adequate Hydration State: stable & adequate Anesthetic Complications: no major complications apparent
[2017-08-08 14:18] VITALS: BP 128/73; PULSE 68; O2SAT 93
== END | disposition home or self-care (01) ==
LOC: C.GI 12:04
PROVIDERS: ATTEND Internal Medicine
DX: Z12.11 Encounter for screening for malignant neoplasm of colon (principal); D12.3 Benign neoplasm of transverse colon; D12.4 Benign neoplasm of descending colon; K57.30 Diverticulosis of large intestine without perforation or abscess without bleeding; K64.8 Other hemorrhoids; Z86.010 Personal history of colon polyps; I10 Essential (primary) hypertension; J44.9 Chronic obstructive pulmonary disease, unspecified; N28.9 Disorder of kidney and ureter, unspecified; D75.9 Disease of blood and blood-forming organs, unspecified; M81.0 Age-related osteoporosis without current pathological fracture; F32.9 Major depressive disorder, single episode, unspecified; Z86.73 Personal history of transient ischemic attack (TIA), and cerebral infarction without residual deficits; Z87.891 Personal history of nicotine dependence; Z79.899 Other long term (current) drug therapy

== ENCOUNTER → 2017-09-05 | Outpatient (CLI) | payer BC ==
[~2017-09-05] MED LIST changes: -ACYC-251 PO; -ERGO1CAP41 PO; +ERGO500011 PO; -LIDOCAINE HCL 2% 2 ML VIAL (20MG/ML) ONE; +METO-452 PO; -METO1TAB66 PO; -MIDAZOLAM HCL 1 MG/ML 2ML VIAL ONE; -ONDANSETRON INJ 2 MG/ML 2 ML VIAL ONE; -PROPOFOL IV EMULSION 10 MG/ML 20 ML VIAL IV ONE
[2017-09-05 17:44] LABS: ALT/SGPT 42 U/L (12-78); AST/SGOT 19 U/L (15-37); BLOOD UREA NITROGEN 19 mg/dl (7-18); BUN/CREATININE RATIO 13.4 (10-20); CALCIUM 9.4 mg/dl (8.5-10.1); CARBON DIOXIDE 27 mmol/L (21-32); CHLORIDE 107 mmol/L (98-107); CREATININE 1.45 mg/dl (0.60-1.20); GLUCOSE 91 mg/dl (70-99); POTASSIUM 4.1 mmol/L (3.5-5.1); SODIUM 143 mmol/L (136-145)
[2017-09-05 17:55] LABS: ALB/GLOB RATIO 0.9 (0.9-2); ALKALINE PHOSPHATASE 88 U/L (45-117)
[2017-09-05 18:17] LABS: URINE APPEARANCE CLOUDY (CLEAR); URINE BILIRUBIN NEG (NEG); URINE COLOR YELLOW; URINE NITRITE POS (NEG); URINE SPECIFIC GRAVITY 1.013 (1.000-1.030); UROBILINOGEN NEG (NEG); ZZUR CULT IF INDIC CLEAN CATCH YES
[2017-09-05 18:20] LABS: MANUAL MICROSCOPIC REQUIRED? NO; REVIEW REQ? YES
[2017-09-06 08:26] LABS: ESTIMATED AVERAGE GLUCOSE 126 mg/dl; HA1C FLAG Normal (Normal)
== END | disposition home or self-care (01) ==
LOC: C.LABBFT 14:36
PROVIDERS: ATTEND Physician Assistant Medical
DX: J44.9 Chronic obstructive pulmonary disease, unspecified (principal); C85.90 Non-Hodgkin lymphoma, unspecified, unspecified site; R39.9 Unspecified symptoms and signs involving the genitourinary system; E55.9 Vitamin D deficiency, unspecified; R73.03 Prediabetes; R60.9 Edema, unspecified

== ENCOUNTER → 2017-09-17 | Outpatient (CLI) | payer BC ==
[~2017-09-17] MED LIST changes: +AMX875 PO; +CALC600T37 PO; +STDN
--- NOTE | 2017-09-17 11:20 | DIAGNOSTIC IMAGING REPORT ---
ABDOMEN LIMITED (US) HISTORY: 62 years-old Female K74.60 unspecified cirrhosis of the liver COMPARISON: Ultrasound of the abdomen 04/25/2017 TECHNIQUE: Multiple real-time sonographic images of the abdominal right upper quadrant were obtained assessing grayscale appearance and color flow FINDINGS: Imaged pancreas is unremarkable. Distal body and tail are obscured by bowel gas. Mild increased echogenicity of the liver is again seen without significant marginal nodularity. No right upper quadrant ascites or focal hepatic mass identified. These findings appear stable from comparison. Mild layering stones and sludge seen within the gallbladder lumen. Gallbladder wall is normal, 2 mm. No pericholecystic fluid collections. Common bile duct is mildly dilated, 7 mm. No obstructing stone or mass. This is likely incidental. Imaged right kidney is unremarkable without renal calculi or hydronephrosis identified. IMPRESSION: 1. Mildly increased echogenicity of the hepatic parenchyma is again seen which is unchanged and nonspecific. No significant marginal nodularity of the liver or ascites identified. 2. Cholelithiasis and mild gallbladder sludge without sonographic evidence of acute cholecystitis. 3. Mildly dilated common bile duct measuring 7 mm without obstructing stone or mass identified. The above report was generated using voice recognition software. It may contain grammatical, syntax or spelling errors. Electronically signed by: Alfredo Yoder M.D. 09/17/2017 11:19 AM Dictated Date/Time: 09/17/2017 11:16 AM
== END | disposition home or self-care (01) ==
LOC: C.ULTR 10:37
PROVIDERS: ATTEND Internal Medicine Gastroenterology
DX: K74.60 Unspecified cirrhosis of liver (principal); K80.20 Calculus of gallbladder without cholecystitis without obstruction

== ENCOUNTER → 2017-09-19 | Outpatient (CLI) | payer BC ==
[2017-09-19 14:40] LABS: BASO % 0.2 %; BASO ABS # 0.01 K/uL (0-0.2); COMPLETE YES; EOS % 2.3 %; HEMATOCRIT 37.6 % (37-47); IG% 0.3 %; LYMPH % 26.4 %; LYMPH ABS # 1.74 K/uL (1.2-3.4); MEAN CELL VOLUME 104.4 fL (80-100); MEAN CORPUSCULAR HEMOGLOBIN 33.6 pg (25-34); MEAN CORPUSCULAR HGB CONC 32.2 g/dl (32-36); MEAN PLATELET VOLUME 10.3 fL (7.4-10.4); NEUT % 55.8 %; PLATELET COUNT 126 K/uL (130-400)
== END | disposition home or self-care (01) ==
LOC: C.CPL 13:00
PROVIDERS: ATTEND Urology
DX: N13.30 Unspecified hydronephrosis (principal)

== ENCOUNTER → 2017-10-04 | Day surgery (SDC) | payer BC ==
[2017-09-20 15:41] VITALS: BMI 34.0
[~2017-10-04] VITALS: Ht 154.9 cm; Wt 81.8 kg
[~2017-10-04] MED LIST changes: -AMOX500C3 PO; +ATROPINE SULFATE 0.1 MG/ML 5ML SYR IV PRN; -CALC600T9 PO; +CIPR1TAB11 PO; +CONRAY 30% 150ML BOTTLE ONE; +DEXAMETHASONE SOD INJ 4 MG/ML VIAL ONE; +EpHEDrine SULFATE INJ 50 MG/ML AMP IV PRN; +FENTANYL CITRATE INJ 50 MCG/1 ML 2 ML VIAL IV PRN; +FENTANYL CITRATE INJ 50 MCG/1 ML 2 ML VIAL ONE; -FOLI1TAB7 PO; +FOLI1TAB8 PO; +GENTAMICIN INJ 80 MG in DEXTROSE 5% 100ML 100 ML IV SCH; +HYDROmorphone INJ 1 MG/ML SYR IV PRN; -ITRA100C PO; +LACTATED RINGER'S 1000ML 1,000 ML IV SCH; +LIDOCAINE HCL 2% 2 ML VIAL (20MG/ML) ONE; +MIDAZOLAM HCL 1 MG/ML 2ML VIAL ONE; +NURSING VERBAL MED ORDER ONE; +ONDANSETRON INJ 2 MG/ML 2 ML VIAL IV PRN; +ONDANSETRON INJ 2 MG/ML 2 ML VIAL ONE; +OXYCODONE HCL IR 5 MG TAB (IMMEDIATE RELEASE) PO PRN; +PHENAZOPYRIDINE HCL 100 MG TAB PO PRN; +PHENAZOPYRIDINE HCL 200 MG TAB PO ONE; +PROMETHAZINE HCL INJ 12.5 MG in SODIUM CHLORIDE 0.9% 50ML 50 ML IV PRN; +PROPOFOL IV EMULSION 10 MG/ML 20 ML VIAL IV ONE
[2017-10-04 05:45] VITALS: BP 117/53; PULSE 83; TEMP 37.1; O2SAT 93; Ht 154.9 cm; Wt 81.8 kg
--- NOTE | 2017-10-04 07:21 | Discharge Instructions ---
Discharge Instructions Date of Service Oct 04, 2017. Admission Reason for Admission: Bilateral Hydronephrosis Discharge Discharge Diagnosis / Problem: Bilateral hydronephrosis s/p stent change Discharge Goals Goal(s): Improve function Activity Recommendations Activity Limitations: as noted below Lifting Limitations: no more than 25 pounds, gradually increase as tolerated Exercise/Sports Limitations: rest today, gradually increase as tolerated May Resume Sexual Activity: when tolerated Shower/Bathe: no limitations Driving or Machine Use: resume 1 day after discharge . Instructions / Follow-Up Instructions / Follow-Up In office for postop check as scheduled Current Hospital Diet Patient's current hospital diet: Discharge Diet Recommended Diet: Regular Diet Procedures Procedures Performed: Cystoscopy, bilateral retrograde pyelography, bilateral ureteral stent exchange Pending Studies Studies pending at discharge: no Laboratory Results Hemoglobin A1c Test 09/05/17 14:56 Range/Units Estimated Average Glucose 126 mg/dl Hemoglobin A1c 6.0 H 4.5-5.6 % Medical Emergencies . Who to Call and When: Medical Emergencies: If at any time you feel your situation is an emergency, please call 911 immediately. . Non-Emergent Contact Non-Emergency issues call your: Urologist Call Non-Emergent contact if: you have a fever, temperature is above 101, your pain is not controlled, your pain is worsening, your pain is unusual for you, your pain is concerning you, you have any medication questions . . "Provider Documentation" section prepared by Theo Barrett. . VTE Core Measure Inpt VTE Proph given/why not?: SCD's
--- NOTE | 2017-10-04 08:08 | [facility] Operative Report ---
Operative Report Operative Date Oct 04, 2017. Pre-Operative Diagnosis Bilateral Hydronephrosis Post-Operative Diagnosis Bilateral Hydronephrosis Procedure(s) Performed Cystoscopy, Bilateral Ureteral Stent Exchange, Retrograde Pyelogram Surgeon Dr. Mirella Barrett Vision Impaired Teacher Surgeon(s) none Estimated Blood Loss 0mL Findings No significant hydro on opacification of collecting system bilaterally, good stent position on fluoroscopy. Specimens none per surgeon Drains 6 fr 24 cm bilateral firm Cook stents Anesthesia MAC Complication(s) None Disposition Recovery Room / PACU Indications Chronic bilaterally hydronephrosis managed with indwelling stents. SCDs were used for DVT prophylaxis and gentamicin provided for perioperative antibiotic coverage. Patient's been pretreated for her positive urine culture for Proteus with ciprofloxacin which she has tolerated well. Please see H&P for further details. Description of Procedure Patient was properly identified and brought to the operative suite after identification for appropriate consent of the chart. Intravenous ciprofloxacin , which the patient is tolerated in the past, was used for antibiotic prophylaxis. SCDs were in place. Full timeout procedure was followed. Monitored anesthesia care with mask sedation was used for analgesia. Patient was prepped and draped in the standard fashion for this procedure that is in a dorsal lithotomy position. 22 Occitan rigid cystoscope was passed into the bladder under direct visualization and posterior bladder wall defect from the patient's indwelling pessary was noted. This was appreciated to be in good position. Right-sided ureteral stent was grasped and brought down to the level of the meatus using a stent grasper. This was noted to be externally unencrusted but provided a small amount of resistance to passage of the wire through the lumen of the catheter. A sensor tip wire was therefore passed alongside the ureteral stent without difficulties up to the left of the right renal pelvis under fluoroscopic guidance. Indwelling stent was removed without problems and a 6 Occitan 24 cm firm Cook ureteral stent was advanced with a full coil at the level of the ureteral orifice and a full coil in the right upper quadrant at the level of the kidney. Attention was then turned to the left- handed side where this procedure was repeated. Again stent was noted to be relatively on encrusted compared to previous baseline. Good position of the new stent was noted. Urine was noted to be clear within the bladder and mild erythema appreciated. No significant hydro was noted on either side on opacification of the collecting system with a 5 fr open ended prior to stent placement to ensure good location. No intravesical masses or calculi noted. Bladder was drained and cystoscope was removed. Sedation was reversed patient was transferred to the recovery room in stable condition. I attest to the content of the Intraoperative Record and any orders documented therein. Any exceptions are noted below.
--- NOTE | 2017-10-04 08:10 | [facility] Post Operative Brief Note ---
Immediate Operative Summary Operative Date Oct 04, 2017. Pre-Operative Diagnosis Bilateral Hydronephrosis Post-Operative Diagnosis Bilateral Hydronephrosis Procedure(s) Performed Cystoscopy, Bilateral Ureteral Stent Exchange, Retrograde Pyelogram Surgeon Dr. Mirella Barrett Microfilm Technician Surgeon(s) none Estimated Blood Loss 0mL Findings No significant hydro on opacification of collecting system bilaterally, good stent position on fluoroscopy. Specimens none per surgeon Drains 6 fr 24 cm firm cook JJ stents bilaterally Anesthesia MAC Complication(s) None Disposition Recovery Room / PACU
--- NOTE | 2017-10-04 08:18 | DIAGNOSTIC IMAGING REPORT ---
RETROGRADE INCLUDES KUB CLINICAL HISTORY: 62 years-old Female presenting with BILATERAL CYSTOSCOPY, STENT EXCHANGE. TECHNIQUE: 7 fluoroscopic spot image(s) obtained as part of an intraoperative procedure. COMPARISON: None. FINDINGS/IMPRESSION: At the first fluoroscopic image, bilateral ureteral stents in place. Subsequently a catheter over a guidewire was introduced into the left ureter. A catheter over a guidewire was also introduced into the right ureter. The left ureteral stent was replaced. The right renal collecting system was opacified with contrast, demonstrating a dilated system though slightly decreased from prior. A right ureteral stent was then placed. The left renal collecting system was finally opacified with contrast demonstrating dilatation and blunting of the calyces. Please see surgical report for further details. Fluoroscopy dosage (mGy): 22.19. Fluoroscopy time: 63.3 seconds. Number of fluoroscopic spot images: 7. Electronically signed by: Babar Kaur M.D. 10/04/2017 8:17 AM Dictated Date/Time: 10/04/2017 8:15 AM
--- NOTE | 2017-10-04 08:56 | Anesthesiology Progress Note ---
Anesthesia Post Op Note Date & Time Oct 04, 2017 at 08:55 Vital Signs Pain Intensity: 0 Vital Signs Past 12 Hours Date Time Temp Pulse Resp B/P (MAP) Pulse Ox O2 Delivery O2 Flow Rate FiO2 10/04/17 08:47 76 18 99 10/04/17 08:47 75 18 10/04/17 08:46 94/51 10/04/17 08:42 66 16 92 10/04/17 08:42 36.1 10/04/17 08:42 67 16 10/04/17 08:41 95/54 10/04/17 08:37 72 15 94 10/04/17 08:37 73 15 10/04/17 08:36 98/58 10/04/17 08:35 74 15 10/04/17 08:35 76 15 99 10/04/17 08:31 95/53 10/04/17 08:30 72 20 91 10/04/17 08:30 72 20 10/04/17 08:26 98/63 10/04/17 08:25 75 16 10/04/17 08:25 75 16 94 10/04/17 08:24 73 16 92 10/04/17 08:24 75 16 10/04/17 08:21 121/68 10/04/17 08:19 71 14 100 10/04/17 08:19 72 14 10/04/17 08:16 111/71 10/04/17 08:14 92 16 10/04/17 08:14 92 16 100 10/04/17 08:13 78 15 100 10/04/17 08:13 79 15 10/04/17 08:11 94/55 10/04/17 08:08 78 16 100 10/04/17 08:08 78 16 10/04/17 08:07 90/53 10/04/17 08:06 75/52 10/04/17 08:03 77 15 10/04/17 08:03 77 15 100 10/04/17 08:01 84/56 10/04/17 07:58 79 15 99 10/04/17 07:58 78 15 10/04/17 07:57 81/39 10/04/17 07:56 76/45 10/04/17 07:53 79 12 10/04/17 07:53 82 12 94 10/04/17 07:53 36.6 83 15 81/39 97 Oxymask 10 10/04/17 05:45 37.1 83 20 117/53 (74) 93 Room Air Notes Mental Status: alert / awake / arousable, participated in evaluation Pt Amnestic to Procedure: Yes Nausea / Vomiting: adequately controlled Pain: adequately controlled Airway Patency, RR, SpO2: stable & adequate BP & HR: stable & adequate Hydration State: stable & adequate Anesthetic Complications: no major complications apparent
[2017-10-04 09:00] VITALS: BP 99/53; PULSE 73; TEMP 36.4; O2SAT 94
[2017-10-04 09:30] VITALS: BP 120/62; PULSE 76; TEMP 36.4; O2SAT 95
[2017-10-04 10:00] VITALS: BP 120/64; PULSE 77; TEMP 36.5; O2SAT 95
== END | disposition home or self-care (01) ==
LOC: C.ACU 05:27
PROVIDERS: ATTEND Urology
DX: N13.30 Unspecified hydronephrosis (principal); J44.9 Chronic obstructive pulmonary disease, unspecified; K50.90 Crohn's disease, unspecified, without complications; I12.9 Hypertensive chronic kidney disease with stage 1 through stage 4 chronic kidney disease, or unspecified chronic kidney disease; N18.3 Chronic kidney disease, stage 3 (moderate); Z86.718 Personal history of other venous thrombosis and embolism; E78.5 Hyperlipidemia, unspecified; R26.9 Unspecified abnormalities of gait and mobility; I34.1 Nonrheumatic mitral (valve) prolapse; C85.90 Non-Hodgkin lymphoma, unspecified, unspecified site; M81.0 Age-related osteoporosis without current pathological fracture; G62.9 Polyneuropathy, unspecified; R73.03 Prediabetes; L40.9 Psoriasis, unspecified; E55.9 Vitamin D deficiency, unspecified; E51.9 Thiamine deficiency, unspecified; Z86.73 Personal history of transient ischemic attack (TIA), and cerebral infarction without residual deficits; Z86.72 Personal history of thrombophlebitis; Z86.14 Personal history of Methicillin resistant Staphylococcus aureus infection

== ENCOUNTER → 2017-10-08 | Day surgery (SDC) | payer BC ==
[2017-09-24 12:36] VITALS: Ht 154.9 cm; Wt 81.8 kg
[~2017-10-08] VITALS: Ht 154.9 cm; Wt 81.8 kg
[~2017-10-08] MED LIST changes: -ATROPINE SULFATE 0.1 MG/ML 5ML SYR IV PRN; -CONRAY 30% 150ML BOTTLE ONE; -DEXAMETHASONE SOD INJ 4 MG/ML VIAL ONE; -EpHEDrine SULFATE INJ 50 MG/ML AMP IV PRN; -FENTANYL CITRATE INJ 50 MCG/1 ML 2 ML VIAL IV PRN; -FENTANYL CITRATE INJ 50 MCG/1 ML 2 ML VIAL ONE; -GENTAMICIN INJ 80 MG in DEXTROSE 5% 100ML 100 ML IV SCH; -HYDROmorphone INJ 1 MG/ML SYR IV PRN; -LACTATED RINGER'S 1000ML 1,000 ML IV SCH; -MIDAZOLAM HCL 1 MG/ML 2ML VIAL ONE; -NURSING VERBAL MED ORDER ONE; -ONDANSETRON INJ 2 MG/ML 2 ML VIAL IV PRN; -ONDANSETRON INJ 2 MG/ML 2 ML VIAL ONE; -OXYCODONE HCL IR 5 MG TAB (IMMEDIATE RELEASE) PO PRN; -PHENAZOPYRIDINE HCL 100 MG TAB PO PRN; -PHENAZOPYRIDINE HCL 200 MG TAB PO ONE; -PROMETHAZINE HCL INJ 12.5 MG in SODIUM CHLORIDE 0.9% 50ML 50 ML IV PRN
--- NOTE | 2017-10-08 13:12 | Endo History and Physical ---
History & Physical Date of Service: Oct 08, 2017. Chief Complaint: dysphagia Referring Physician: Dr Chavez History of Present Illness For EGD Past Medical History Osteoporosis, Arthritis, Fractures, Asthma, Blood Dyscrasias, Cancer, Hypertension, Thrombophlebitis, COPD, Kidney Disease, CVA/TIA, Other, Depression Past Surgical History Hx Cardiac Surgery: No Hx Internal Defibrillator: No Hx Pacemaker: No Hx Abdominal Surgery: Yes (TUBAL LIGATION, LIVER BIOPSY) Hx Post-Op Nausea and Vomiting: No Hx Cancer Surgery: Yes (LUNG BIOPSY, LYMPH NODE BIOPSY) Hx Thoracic Surgery: Yes (BRONCHOSCOPIES) Hx Orthopedic: Yes (BURSA REMOVAL RT KNEE, RT ARM/ELBOW "NERVE RELEASE") Hx Urinary Tract Surgery: Yes (MULTIPLE URETAL STENTS) Family History IBD Social History Smoking Status: Former Smoker Hx Substance Use: Yes (SEE MED REC) Hx Alcohol Use: No Allergies Coded Allergies: Levofloxacin (Verified Allergy, Intermediate, numbness/weakness, 10/04/17) Pt is OK to receive CIPRO Allopurinol (Verified Allergy, Unknown, rash, 10/04/17) BEE STING (Verified Allergy, Unknown, SWELLING AT SITE-SOB AT TIMES, 10/04) Iodinated Diagnostic Agents (Verified Allergy, Unknown, Hives, 10/04/17) Iodine (Verified Allergy, Unknown, HIVES, 10/04/17) Pregabalin (Verified Allergy, Unknown, fever?/?rash, 10/04/17) [place] (Verified Allergy, Unknown, HIVES, 09/24/17) Sulfa Antibiotics (Verified Allergy, Unknown, RASH/HIVES, 10/01/17) Venlafaxine (Verified Allergy, Unknown, UNKNOWN, 09/24/17) Gluten (Verified Adverse Reaction, Severe, Celiac Dz = GI symptoms, ) Adhesives (Verified Adverse Reaction, Unknown, red torn skin, 09/24/17) BAND AIDS OKAY - [place] OKAY - PAPER TAPE OKAY Propoxyphene (Verified Adverse Reaction, Unknown, 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, ) Current Medications Reported Home Medications Medications Dose Route/Sig Max Daily Dose Days Date Category Dose Instructions Cipro (Ciprofloxacin) 250 Mg Tab 500 Mg PO BID 10/04/17 Reported Butorphanol Tartrate 25 Sprays/2.5 Ml Eolia 1 Eolia NA DAILY PRN 09/20/17 Reported Calcium 600 Mg Tab 1 Tab PO QAM 09/20/17 Reported Amoxicillin 875 Mg Tab 1 Tab PO BID 09/20/17 Reported Florajen3 (Probiotic Product) 1 Cap Cap 1 Cap PO QAM 07/31/17 Reported Vitamin E 400 Iu (Vitamin E) 400 Unit Cap 400 Inter.unit PO QAM 07/31/17 Reported Qvar (Beclomethasone Dip) 80 Mcg/Act Aer 2 Puffs INH BID 07/31/17 Reported Proair Respiclick (Albuterol Sulfate) 108 Mcg/Act Aer 2 Puffs INH Q4H PRN 07/31/17 Reported Oxycontin (Oxycodone Hcl) 20 Mg Tab 1 Tab PO BID 07/31/17 Reported Topamax (Topiramate) 100 Mg Tab 100 Mg PO HS 07/31/17 Reported Toprol Xl (Metoprolol Succinate) 50 Mg Tab 50 Mg PO QAM 07/31/17 Reported Fentanyl 75 Mcg/Hr Dis 1 Dose TOP Q72H 12/28/16 Reported Prolia (Denosumab) 60 Mg/1 Ml Inj 60 Mg INJ Q6 MONTHS 08/16/16 Reported Colace (Docusate Sodium) 100 Mg Cap 1 Cap PO TID 02/28/16 Reported Roxicodone Ir (Oxycodone HCl) 5 Mg Tab 5 Mg PO Q2H PRN 08/26/15 Reported moderate pain Magnesium (Magnesium Oxide) 400 Mg Tab 400 Mg PO QAM 07/16/15 Reported Klonopin (Clonazepam) 1 Mg Tab 1 Mg PO HS 07/16/15 Reported Potassium Chloride Er (Potassium Chloride Microencaps) 20 Meq Tab 20 Meq PO QAM 06/18/15 Reported Robaxin (Methocarbamol) 750 Mg Tab 750 Mg PO BID 04/07/15 Reported Multivitamin (Multiple Vitamin) 1 Tab Tab 1 Tab PO QAM 02/11/15 Reported Co Q10 (Coenzyme Q10) 50 Mg Cap 200 Mg PO QAM 02/11/15 Reported Aristocort 0.1% (Triamcinolone Acet) 90 Appln/30 Gm Cr 1 Appln TOP BID PRN 02/11/15 Reported Lovenox (Enoxaparin) 40 Mg/0.4 Ml Inj 40 Mg SQ QAM 02/11/15 Reported Folvite (Folic Acid) 1 Mg Tab 1 Mg PO QAM 02/11/15 Reported Seroquel (Quetiapine Fumarate) 200 Mg Tab 200 Mg PO HS 02/11/15 Reported Vitamin D 91722 Unit (Ergocalciferol) 50,000 Unit Cap 1 Tab PO WK 01/08/15 Reported GIVE ON SUNDAY Vitamin B Complex (B-Complex Vitamins) 1 Tab Tab 1 Tab PO QAM 01/08/15 Reported Gabapentin 400 Mg Cap 400 Mg PO TID 11/13/14 Reported Zyrtec (Cetirizine HCl) 10 Mg Tab 10 Mg PO QAM 04/16/14 Reported Vital Signs Weight (Kilograms): 81.82 Height (Feet): 5 Height (Inches): 1 Physical Exam General Appearance: WD/WN Respiratory/Chest: Respiratory effort: no dyspnea Cardiovascular: Heart Auscultation: RRR Abdomen: Inspection & Palpation: soft Assessment and Plan Dysphagia for EGD
--- NOTE | 2017-10-08 14:10 | Discharge Instructions ---
Endoscopy Patient Instructions Date / Procedure(s) Performed Oct 08, 2017. EGD Allergy Information Coded Allergies: Levofloxacin (Verified Allergy, Intermediate, numbness/weakness, 10/04/17) Pt is OK to receive CIPRO Allopurinol (Verified Allergy, Unknown, rash, 10/04/17) BEE STING (Verified Allergy, Unknown, SWELLING AT SITE-SOB AT TIMES, 10/04) Iodinated Diagnostic Agents (Verified Allergy, Unknown, Hives, 10/04/17) Iodine (Verified Allergy, Unknown, HIVES, 10/04/17) Pregabalin (Verified Allergy, Unknown, fever?/?rash, 10/04/17) [place] (Verified Allergy, Unknown, HIVES, 09/24/17) Sulfa Antibiotics (Verified Allergy, Unknown, RASH/HIVES, 10/01/17) Venlafaxine (Verified Allergy, Unknown, UNKNOWN, 09/24/17) Gluten (Verified Adverse Reaction, Severe, Celiac Dz = GI symptoms, ) Adhesives (Verified Adverse Reaction, Unknown, red torn skin, 09/24/17) BAND AIDS OKAY - [place] OKAY - PAPER TAPE OKAY Propoxyphene (Verified Adverse Reaction, Unknown, 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 stricture Medication Instructions Stopped Medication(s): see med rec Restart Stopped Medication(s): resume meds Reported Home Medications Medications Dose Route/Sig Max Daily Dose Days Date Category Dose Instructions Cipro (Ciprofloxacin) 250 Mg Tab 500 Mg PO BID 10/04/17 Reported Butorphanol Tartrate 25 Sprays/2.5 Ml [place] 1 [place] NA DAILY PRN 09/20/17 Reported Calcium 600 Mg Tab 1 Tab PO QAM 09/20/17 Reported Amoxicillin 875 Mg Tab 1 Tab PO BID 09/20/17 Reported Florajen3 (Probiotic Product) 1 Cap Cap 1 Cap PO QAM 07/31/17 Reported Vitamin E 400 Iu (Vitamin E) 400 Unit Cap 400 Inter.unit PO QAM 07/31/17 Reported Qvar (Beclomethasone Dip) 80 Mcg/Act Aer 2 Puffs INH BID 07/31/17 Reported Proair Respiclick (Albuterol Sulfate) 108 Mcg/Act Aer 2 Puffs INH Q4H PRN 07/31/17 Reported Oxycontin (Oxycodone Hcl) 20 Mg Tab 1 Tab PO BID 07/31/17 Reported Topamax (Topiramate) 100 Mg Tab 100 Mg PO HS 07/31/17 Reported Toprol Xl (Metoprolol Succinate) 50 Mg Tab 50 Mg PO QAM 07/31/17 Reported Fentanyl 75 Mcg/Hr Dis 1 Dose TOP Q72H 12/28/16 Reported Prolia (Denosumab) 60 Mg/1 Ml Inj 60 Mg INJ Q6 MONTHS 08/16/16 Reported Colace (Docusate Sodium) 100 Mg Cap 1 Cap PO TID 02/28/16 Reported Roxicodone Ir (Oxycodone HCl) 5 Mg Tab 5 Mg PO Q2H PRN 08/26/15 Reported moderate pain Magnesium (Magnesium Oxide) 400 Mg Tab 400 Mg PO QAM 07/16/15 Reported Klonopin (Clonazepam) 1 Mg Tab 1 Mg PO HS 07/16/15 Reported Potassium Chloride Er (Potassium Chloride Microencaps) 20 Meq Tab 20 Meq PO QAM 06/18/15 Reported Robaxin (Methocarbamol) 750 Mg Tab 750 Mg PO BID 04/07/15 Reported Multivitamin (Multiple Vitamin) 1 Tab Tab 1 Tab PO QAM 02/11/15 Reported Co Q10 (Coenzyme Q10) 50 Mg Cap 200 Mg PO QAM 02/11/15 Reported Aristocort 0.1% (Triamcinolone Acet) 90 Appln/30 Gm Cr 1 Appln TOP BID PRN 02/11/15 Reported Lovenox (Enoxaparin) 40 Mg/0.4 Ml Inj 40 Mg SQ QAM 02/11/15 Reported Folvite (Folic Acid) 1 Mg Tab 1 Mg PO QAM 02/11/15 Reported Seroquel (Quetiapine Fumarate) 200 Mg Tab 200 Mg PO HS 02/11/15 Reported Vitamin D 07725 Unit (Ergocalciferol) 50,000 Unit Cap 1 Tab PO WK 01/08/15 Reported GIVE ON SUNDAY Vitamin B Complex (B-Complex Vitamins) 1 Tab Tab 1 Tab PO QAM 01/08/15 Reported Gabapentin 400 Mg Cap 400 Mg PO TID 11/13/14 Reported Zyrtec (Cetirizine HCl) 10 Mg Tab 10 Mg PO QAM 04/16/14 Reported Provider Instructions Activity Restrictions - No exercising or heavy lifting for 24 hours. - Do not drink alcohol the day of the procedure. - Do not drive a car or operate machinery until the day after the procedure. - Do not make any important decisions or sign important papers in 24 hours after the procedure. Following Day: - Return to full activity which may include returning to work/school. Diet Start your diet with liquids and light foods (jello, soup, juice, toast). Then eat your usual diet if not nauseated. Treatment For Common After Affects For mild abdominal pain, bloating, or excessive gas: - Rest - Eat lightly - Lie on right side Follow-Up Information Follow-up with Dr. Reynold Villegas as scheduled Anesthesia Information What You Should Know You have had a procedure that required some medicine to reduce anxiety and discomfort. This treatment is called moderate sedation. After receiving the treatment, you may be sleepy, but you will be able to breathe on your own. The effects of the treatment may last for several hours. Follow these instructions along with Activity/Diet recommendations noted above: * Do NOT do anything where dizziness or clumsiness would be dangerous. * Rest quietly at home today, then you can be up and about tomorrow. * Have a responsible person stay with you the rest of today. * You may have had an I.V. today. If so, you may take the dressing off later today. Recommendations Call your doctor if: * Trouble breathing * Continuous vomiting for more than 24 hours * Temperature above 101 degrees * Severe abdominal pain or bloating * Pain not relieved by pain medicine ordered * There is increased drainage or redness from any incision * A large amount of rectal bleeding greater than 2-3 tablespoons. (If you had a polyp/s removed or have hemorrhoids, a small amount of blood - from the rectum is to be expected.) * You have any unanswered questions or concerns. IN THE EVENT OF A SERIOUS EMERGENCY, GO TO THE NEAREST EMERGENCY ROOM Your discharge instructions were prepared by provider Pradeep Chavez. Patient Instructions Signature Page Rupali Oliverio Patient (or Guardian) Signature/Date: I have read and understand the instructions given to me by my caregivers. Caregiver/RN/Doctor Signature/Date: The above-named patient and/or guardian has received patient instructions on this date. + Original Patient Signature Page (only) stays with chart. Please make copy for patient.
--- NOTE | 2017-10-08 14:16 | GI REPORT ---
Procedure Date: 10/08/2017 1:49 PM Procedure: Upper GI endoscopy Indications: Dysphagia Medicines: Propofol total dose 180 mg IV, Lidocaine 80 mg IV Complications: No immediate complications. Estimated Blood Loss: Estimated blood loss was minimal. Estimated blood loss was minimal. Procedure: Pre-Anesthesia Assessment: - Prior to the procedure, a History and Physical was performed, and patient medications, allergies and sensitivities were reviewed. The patient's tolerance of previous anesthesia was reviewed. - The risks and benefits of the procedure and the sedation options and risks were discussed with the patient. All questions were answered and informed consent was obtained. After obtaining informed consent, the endoscope was passed under direct vision. Throughout the procedure, the patient's blood pressure, pulse, and oxygen saturations were monitored continuously. The scope was introduced through the mouth, and advanced to the second part of duodenum. The upper GI endoscopy was accomplished without difficulty. The patient tolerated the procedure well. Findings: The 2nd part of the duodenum was normal. Biopsies were taken with a cold forceps for histology. Estimated blood loss was minimal. The entire examined stomach was normal. A single 4 mm mucosal nodule with a localized distribution was found at the gastroesophageal junction, 41 cm from the incisors. Biopsies were taken with a cold forceps for histology. Estimated blood loss was minimal. A web was found in the middle third of the esophagus. Biopsies were taken with a cold forceps for histology. Estimated blood loss was minimal. One mild benign-appearing, intrinsic stenosis was found. And was traversed. A guidewire was placed and the scope was withdrawn. Dilation was performed with a Savary dilator with no resistance at 48 Fr. Estimated blood loss was minimal. Patchy candidiasis was found in the middle third of the esophagus. Cells for cytology were obtained by brushing. Estimated blood loss: none. Impression: - Normal 2nd part of the duodenum. Biopsied. - Normal stomach. - Mucosal nodule found in the esophagus. Biopsied. - Web in the middle third of the esophagus. Biopsied. - Benign-appearing esophageal stenosis. Dilated. Recommendation: - Discharge patient to home (ambulatory). - Continue present medications. - Await pathology results. - Return to primary care physician NATASHA. Pradeep Chavez M.D. Pradeep Chavez MD 10/08/2017 2:16:04 PM This report has been signed electronically. Note Initiated On: 10/08/2017 1:49 PM I attest to the content of the Intraoperative Record and orders documented therein, exceptions below
--- NOTE | 2017-10-08 14:24 | Anesthesiology Progress Note ---
Anesthesia Post Op Note Date & Time Oct 08, 2017 at 14:24 Vital Signs Pain Intensity: 6 Vital Signs Past 12 Hours Date Time Temp Pulse Resp B/P (MAP) Pulse Ox O2 Delivery O2 Flow Rate FiO2 10/08/17 13:28 36.4 76 20 120/66 (84) 93 Room Air Notes Mental Status: alert / awake / arousable, participated in evaluation Pt Amnestic to Procedure: Yes Nausea / Vomiting: adequately controlled Pain: adequately controlled Airway Patency, RR, SpO2: stable & adequate BP & HR: stable & adequate Hydration State: stable & adequate Anesthetic Complications: no major complications apparent
[2017-10-08 14:47] VITALS: BP 99/69; PULSE 67; O2SAT 97
== END | disposition home or self-care (01) ==
LOC: C.GI 12:52
PROVIDERS: ATTEND Internal Medicine Gastroenterology
DX: R13.10 Dysphagia, unspecified (principal); K22.2 Esophageal obstruction; M81.0 Age-related osteoporosis without current pathological fracture; M19.90 Unspecified osteoarthritis, unspecified site; J44.9 Chronic obstructive pulmonary disease, unspecified; I10 Essential (primary) hypertension; F32.9 Major depressive disorder, single episode, unspecified; I34.1 Nonrheumatic mitral (valve) prolapse; N18.9 Chronic kidney disease, unspecified; Z87.81 Personal history of (healed) traumatic fracture; Z86.73 Personal history of transient ischemic attack (TIA), and cerebral infarction without residual deficits; Z86.72 Personal history of thrombophlebitis; Z98.51 Tubal ligation status; Z87.891 Personal history of nicotine dependence; Z91.041 Radiographic dye allergy status; Z88.2 Allergy status to sulfonamides; Z85.118 Personal history of other malignant neoplasm of bronchus and lung; Z85.72 Personal history of non-Hodgkin lymphomas; Z92.21 Personal history of antineoplastic chemotherapy

== ENCOUNTER 2017-11-12 17:01 | Inpatient (IN) | payer BC, OTHER ==
[~2017-11-12] VITALS: Ht 154.9 cm; Wt 82.1 kg
[~2017-11-12 17:01] MED LIST changes: -LIDOCAINE HCL 2% 2 ML VIAL (20MG/ML) ONE; -PROPOFOL IV EMULSION 10 MG/ML 20 ML VIAL IV ONE
[2017-11-12] MEDS ORDERED: CEFTRIAXONE SOD INJ 1 GM ADDVIAL IV STA (18:58)
[2017-11-12] MEDS ORDERED: VANCOMYCIN 1GM/270ML NSS IV STA (18:58)
--- NOTE | 2017-11-12 19:03 | EMERGENCY ROOM VISIT NOTE ---
History Report prepared by Baldev: Johnathon Platt Under the Supervision of: Dr. Oracio Santos M.D. First contact with patient: 18:52 Chief Complaint: SWELLING TO EXTREMITY Stated Complaint: RED SWOLLEN SORE LEGS History of Present Illness The patient is a 62 year old female who presents to the Emergency Room with complaints of constant pain in her lower extremities that she has been experiencing for a couple of days. She notes that she has worsening redness and swelling to the extremities as well. The patient claims she was also running a fever of 100.3 two days prior to arrival. 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 A total of 10 systems reviewed and were otherwise negative. Past Medical & Surgical Medical Problems: (1) Acute blood loss anemia (2) Anemia (3) Asthma (4) Asthma (5) ASTHMA, UNSPECIFIED (6) ASTHMA, UNSPECIFIED (7) ASTHMA, UNSPECIFIED (8) Bronchitis (9) Bronchitis (10) Carcinoma of upper lobe, bronchus or lung (11) Carcinoma of upper lobe, bronchus or lung (12) Carcinoma of upper lobe, bronchus or lung (13) Cellulitis (14) Cellulitis (15) CHRONIC KIDNEY DISEASE, STAGE III (MODERATE) (16) CHRONIC KIDNEY DISEASE, STAGE III (MODERATE) (17) CHRONIC KIDNEY DISEASE, STAGE III (MODERATE) (18) Contusion of left leg (19) DVT (deep venous thrombosis) (20) DVT (deep venous thrombosis) (21) Emphysema (22) Emphysema (23) Failure of outpatient treatment (24) Fall (25) Frequent falls (26) Frequent falls (27) Frequent falls (28) History of malignant lymphoma (29) History of malignant lymphoma (30) History of malignant lymphoma (31) HYDRONEPHROSIS (32) HYDRONEPHROSIS (33) HYDRONEPHROSIS (34) Hypertension Nos (35) Hypertension Nos (36) Hypertension Nos (37) HYPTNSV CHR KID DIS, UNSPEC, 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 (38) HYPTNSV CHR KID DIS, UNSPEC, 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 (39) HYPTNSV CHR KID DIS, UNSPEC, 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 (40) Lung cancer (41) Lung cancer (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) MRSA (methicillin resistant Staphylococcus aureus) (44) MRSA (methicillin resistant Staphylococcus aureus) (45) Orthostatic hypotension (46) Pancytopenia (47) Pancytopenia (48) Pancytopenia (49) Pneumonia (50) Pneumonia (51) Rash and nonspecific skin eruption (52) Stroke (53) Thrombocytopenia (54) Urinary tract infection Surgical Problems: (1) History of tubal ligation (2) History of tubal ligation (3) History of ureter stent (4) History of ureter stent (5) Tubal Ligation Status (6) Tubal Ligation Status (7) Tubal Ligation Status Social History Problems: (1) Hepatitis C (2) Hepatitis C (3) Hepatitis C Family History Cancer Diabetes mellitus Heart disease Hypertension Social History Smoking Status: Former Smoker Alcohol Use: none Drug Use: none Marital Status: Housing Status: [facility] Occupation Status: retired, disabled Current/Historical Medications Scheduled Amoxicillin (Amoxicillin), 1 TAB PO BID B-Complex Vitamins (Vitamin B Complex), 1 TAB PO QAM Beclomethasone Dip (Qvar), 2 PUFFS INH BID Calcium (Calcium), 1 TAB PO QAM Cetirizine (Zyrtec), 10 MG PO QAM Clonazepam (Klonopin), 1 MG PO HS Coenzyme Q10 (Ubidecarenone) (Co Q10), 200 MG PO QAM Denosumab (Prolia), 60 MG INJ Q6 MONTHS Docusate Sodium (Colace), 1 CAP PO TID Enoxaparin (Lovenox), 40 MG SQ QAM Ergocalciferol (Vitamin D 90779 Unit), 1 TAB PO WK Fentanyl (Fentanyl), 1 DOSE TOP Q72H Folic Acid (Folvite), 1 MG PO QAM Gabapentin (Gabapentin), 400 MG PO TID Magnesium Oxide (Magnesium), 400 MG PO BID Methocarbamol (Robaxin), 750 MG PO BID Metoprolol Succinate (Toprol Xl), 50 MG PO QAM Multiple Vitamin (Multivitamin), 1 TAB PO QAM Oxycodone Hcl (Oxycontin), 1 TAB PO BID Potassium Chloride Microencaps (Potassium Chloride Er), 20 MEQ PO QAM Probiotic Product (Florajen3), 1 CAP PO QAM Quetiapine Fumarate (Seroquel), 200 MG PO HS Topiramate (Topamax), 100 MG PO HS Vitamin E (Vitamin E 400 Iu), 400 INTER.UNIT PO QAM Scheduled PRN Albuterol Sulfate (Proair Respiclick), 2 PUFFS INH Q4H PRN for SOB/Wheezing Butorphanol Tartrate (Butorphanol Tartrate), 1 SPRAY NA DAILY PRN for Migraine Oxycodone Immediate Rel Tab (Roxicodone Ir), 5 MG PO Q2H PRN for Severe Pain Triamcinolone Acet (Aristocort 0.1%), 1 APPLN TOP BID PRN for Psoriasis Allergies Coded Allergies: Levofloxacin (Verified Allergy, Intermediate, numbness/weakness, 11/12/17) Pt is OK to receive CIPRO Allopurinol (Verified Allergy, Unknown, rash, 11/12/17) BEE STING (Verified Allergy, Unknown, SWELLING AT SITE-SOB AT TIMES, ) Iodinated Diagnostic Agents (Verified Allergy, Unknown, Hives, 11/12/17) Iodine (Verified Allergy, Unknown, HIVES, 11/12/17) Pregabalin (Verified Allergy, Unknown, fever?/?rash, 11/12/17) [place] (Verified Allergy, Unknown, HIVES, 11/12/17) Sulfa Antibiotics (Verified Allergy, Unknown, RASH/HIVES, 11/12/17) Venlafaxine (Verified Allergy, Unknown, UNKNOWN, 11/12/17) Gluten (Verified Adverse Reaction, Severe, Celiac Dz = GI symptoms, ) Adhesives (Verified Adverse Reaction, Unknown, red torn skin, 11/12/17) BAND AIDS OKAY - [place] OKAY - PAPER TAPE OKAY Propoxyphene (Verified Adverse Reaction, Unknown, 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, ) Physical Exam Vital Signs Date Time Temp Pulse Resp B/P (MAP) Pulse Ox O2 Delivery O2 Flow Rate FiO2 11/12/17 20:40 Room Air 11/12/17 19:40 86 18 104/63 95 Room Air 11/12/17 17:19 36.7 91 18 145/72 94 Room Air Physical Exam GENERAL: Patient is a healthy-appearing well-nourished [] HEAD: Normocephalic atraumatic EYES: Ocular movements intact pupils equal and react to light OROPHARYNX mucous membranes are moist no exudates present no erythema or edema present NECK: Supple no nuchal rigidity CHEST: Good equal expansion LUNGS: Clear and equal to auscultation CARDIAC: Normal S1 and S2 ABDOMEN: Soft nontender no guarding BACK: No CVA tenderness EXTREMITIES: No pain upon palpation normal muscle strength in all groups no clubbing cyanosis. The left leg is grossly swollen all the way to the knee. There is weeping present. NEURO: Patient is following commands and answering questions appropriately. Alert and oriented x3 Cranial Nerves 2-12 grossly intact Medical Decision & Procedures ER Provider Diagnostic Interpretation: L VENOUS DOPP LOWER EXT UNILAT CLINICAL HISTORY: Pt c/o LLE swelling pain. Edema. TECHNIQUE: Venous Doppler COMPARISON STUDY: None FINDINGS: Normal study IMPRESSION: Normal study The above report was generated using voice recognition software. It may contain grammatical, syntax or spelling errors. Electronically signed by: Shahram Heaton M.D. 11/12/2017 8:20 PM Dictated Date/Time: 11/12/2017 8:20 PM Laboratory Results Test 11/12/17 19:25 11/12/17 21:01 Immature Granulocyte % (Auto) 0.3 % White Blood Count 7.69 K/uL (4.8-10.8) Red Blood Count 3.80 M/uL (4.2-5.4) Hemoglobin 12.8 g/dL (12.0-16.0) Hematocrit 38.3 % (37-47) Mean Corpuscular Volume 100.8 fL (80-100) Mean Corpuscular Hemoglobin 33.7 pg (25-34) Mean Corpuscular Hemoglobin Concent 33.4 g/dl (32-36) Platelet Count 142 K/uL (130-400) Mean Platelet Volume 10.2 fL (7.4-10.4) Neutrophils (%) (Auto) 54.2 % Lymphocytes (%) (Auto) 27.2 % Monocytes (%) (Auto) 17.0 % Eosinophils (%) (Auto) 1.2 % Basophils (%) (Auto) 0.1 % Neutrophils # (Auto) 4.17 K/uL (1.4-6.5) Lymphocytes # (Auto) 2.09 K/uL (1.2-3.4) Monocytes # (Auto) 1.31 K/uL (0.11-0.59) Eosinophils # (Auto) 0.09 K/uL (0-0.5) Basophils # (Auto) 0.01 K/uL (0-0.2) Immature Granulocyte # (Auto) 0.02 K/uL (0.00-0.02) Total Bilirubin 0.5 mg/dl (0.2-1) Direct Bilirubin 0.1 mg/dl (0-0.2) Aspartate Amino Transf (AST/SGOT) 26 U/L (15-37) Alanine Aminotransferase (ALT/SGPT) 45 U/L (12-78) Alkaline Phosphatase 88 U/L (45-117) Pro-B-Type Natriuretic Peptide 384 pg/ml (0-900) Total Protein 7.5 gm/dl (6.4-8.2) Albumin 3.5 gm/dl (3.4-5.0) Urine Color YELLOW Urine Appearance CLOUDY (CLEAR) Urine pH 7.5 (4.5-7.5) Urine Specific Johnson 1.011 (1.000-1.030) Urine Protein NEG (NEG) Urine Glucose (UA) NEG (NEG) Urine Ketones NEG (NEG) Urine Occult Blood TRACE (NEG) Urine Nitrite NEG (NEG) Urine Bilirubin NEG (NEG) Urine Urobilinogen NEG (NEG) Urine Leukocyte Esterase LARGE (NEG) Urine WBC (Auto) >30 /hpf (0-5) Urine RBC (Auto) 0-4 /hpf (0-4) Urine Hyaline Casts (Auto) 1-5 /lpf (0-5) Urine Epithelial Cells (Auto) 5-10 /lpf (0-5) Urine Bacteria (Auto) NEG (NEG) Urine Yeast (Auto) BUDDING (NONE PRSENT) Labs reviewed by ED physician. Medications Administered Medications (Trade) Dose Ordered Sig/Artie Route Start Time Stop Time Status Last Admin Dose Admin Ceftriaxone Sodium (Rocephin Inj) 1 gm NOW STAT IV 11/12/17 18:58 11/12/17 19:01 DC 11/12/17 19:49 1 GM Vancomycin HCl (Vancomycin 1gm/ 270ml Nss) 1 gm NOW STAT IV 11/12/17 18:58 11/12/17 19:01 DC 11/12/17 18:58 1 GM ED Course 1853: Past medical records reviewed. The patient was evaluated in room A11. A complete history and physical examination was performed. 1858: Ordered Vancomycin HCl 1 gm IV, Rocephin 1 gm IV. Medical Decision Differential diagnosis: Etiologies such as cellulitis, abscess, MRSA infection, DVT, necrotizing fasciitis, dermatitis, drug eruption, as well as others were entertained. This is a 62-year-old female who presents emergency department complaining of a rash to the left lower extremity that has now extended all the way up to her hip. The patient is on antibiotic that home for cellulitis however that has not prevented this outbreak. She was given Rocephin and Bactrim in the emergency department. I did discuss the case with the hospitalist service who agreed to admit the patient. Patient was in agreement with the treatment plan. Medication Reconcilliation Current Medication List: was personally reviewed by me Impression Primary Impression: Swelling of left extremity Scribe Attestation The scribe's documentation has been prepared under my direction and personally reviewed by me in its entirety. I confirm that the note above accurately reflects all work, treatment, procedures, and medical decision making performed by me. Departure Information Referrals Reynold Villegas M.D. (PCP) Patient Instructions My [facility]
--- NOTE | 2017-11-12 19:39 | DIAGNOSTIC IMAGING REPORT ---
CHEST ONE VIEW PORTABLE CLINICAL HISTORY: Pt c/o SOB dyspnea COMPARISON STUDY: 08/20/2015 FINDINGS: Chronic parenchymal scarring right upper lobe laterally. Lungs otherwise are clear. Diaphragms are smooth. PICC catheter in the prior study has been removed. IMPRESSION: Chronic change. No acute process. The above report was generated using voice recognition software. It may contain grammatical, syntax or spelling errors. Electronically signed by: Shahram Heaton M.D. 11/12/2017 7:38 PM Dictated Date/Time: 11/12/2017 7:36 PM
[2017-11-12 19:51] LABS: BASO % 0.1 %; BASO ABS # 0.01 K/uL (0-0.2); EOS % 1.2 %; EOS ABS # 0.09 K/uL (0-0.5); HEMATOCRIT 38.3 % (37-47); HEMOGLOBIN 12.8 g/dL (12.0-16.0); IG# 0.02 K/uL (0.00-0.02); LYMPH % 27.2 %; LYMPH ABS # 2.09 K/uL (1.2-3.4); MEAN CELL VOLUME 100.8 fL (80-100); MEAN CORPUSCULAR HEMOGLOBIN 33.7 pg (25-34); MEAN CORPUSCULAR HGB CONC 33.4 g/dl (32-36); MEAN PLATELET VOLUME 10.2 fL (7.4-10.4); MONO ABS # 1.31 K/uL (0.11-0.59); NEUT % 54.2 %; NEUT ABS # 4.17 K/uL (1.4-6.5); PLATELET COUNT 142 K/uL (130-400); RED CELL DISTRIBUTION WIDTH CV 13.7 % (11.5-14.5); RED CELL DISTRIBUTION WIDTH SD 50.5 fL (36.4-46.3); WHITE BLOOD COUNT 7.69 K/uL (4.8-10.8)
[2017-11-12 20:03] LABS: ALBUMIN 3.5 gm/dl (3.4-5.0); CALCIUM 8.8 mg/dl (8.5-10.1); CREATININE 1.22 mg/dl (0.60-1.20); POTASSIUM 3.9 mmol/L (3.5-5.1)
[2017-11-12 20:08] LABS: TOTAL PROTEIN 7.5 gm/dl (6.4-8.2)
--- NOTE | 2017-11-12 20:21 | DIAGNOSTIC IMAGING REPORT ---
L VENOUS DOPP LOWER EXT UNILAT CLINICAL HISTORY: Pt c/o LLE swelling pain. Edema. TECHNIQUE: Venous Doppler COMPARISON STUDY: None FINDINGS: Normal study IMPRESSION: Normal study The above report was generated using voice recognition software. It may contain grammatical, syntax or spelling errors. Electronically signed by: Shahram Heaton M.D. 11/12/2017 8:20 PM Dictated Date/Time: 11/12/2017 8:20 PM
[2017-11-12] MEDS ORDERED: POLYETHYLENE (MIRALAX) 17 GM PACK PO PRN (21:15)
[2017-11-12] MEDS ORDERED: ONDANSETRON INJ 2 MG/ML 2 ML VIAL IV PRN (21:15)
[2017-11-12] MEDS ORDERED: ACETAMINOPHEN 325 MG TAB PO PRN (21:15)
[2017-11-12] MEDS ORDERED: MAGNESIUM HYDROXIDE SUSP 30 ML UDC PO PRN (21:15)
[2017-11-12] MEDS ORDERED: ALUMINUM/MAGNESIUM/SIMETH (MAALOX MAX) 30 ML UDC PO PRN (21:15)
[2017-11-12 22:35] VITALS: BP 130/80; PULSE 102; TEMP 36.5; O2SAT 93
[2017-11-12 23:01] VITALS: BP 130/80; PULSE 102; TEMP 36.5; O2SAT 93; Ht 154.9 cm; Wt 82.1 kg
--- NOTE | 2017-11-12 23:37 | History and Physical ---
History & Physical Date & Time of Service: Nov 12, 2017 at 23:37 Chief Complaint: Cellulitis Of Both Lower Extremities Primary Care Physician: Reynold Villegas M.D. History of Present Illness Source: patient, clinic records This is a 62 yo f with a h/o chronic LE cellulitis presenting to us with acute worsening of her cellulitis. Patient typically follows with Dr nielson and has been on chronic suppressive therapy with Amoxil 875 mg daily. She has done well and has not been in the hospital for recurrence since 2014. Over the weekend the patient has noticed significant worsening of the weeping and erythema of the LE. She called Dr Nielsen office today but could not be seen until tomorrow. She was concerned for the cellulitis and came into the ED for evaluation. Aside from the erythema and weeping from the LE she has had intermittent low grade temp of 100.3F. She denies any chest pain, SOB, change in bowel habits or dysuria. She has had a PICC line in the past for abx and would be willing to get another if this was necessary, no consent signed as of yet. 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 Non Hodgkin Lymphoma 2010 Peripheral neuropathy - chronic back pain Stroke Family History Cancer Diabetes mellitus Heart disease Hypertension Social History Smoking Status: Former Smoker Smokeless Tobacco Use: No Alcohol Use: none Drug Use: none Marital Status: Housing status: lives with family, skilled nursing Occupational Status: retired, disabled Immunizations History of Influenza Vaccine: Yes Influenza Vaccine Date: May 22, 2011 History of Tetanus Vaccine?: utd Tetanus Immunization Date: Jul 03, 2012 History of Pneumococcal: Yes Pneumococcal Date: May 22, 2011 History of Hepatitis B Vaccine: Unknown Multi-Drug Resistant Organisms History of MDRO: No Allergies Coded Allergies: Levofloxacin (Verified Allergy, Intermediate, numbness/weakness, 11/12/17) Pt is OK to receive CIPRO Allopurinol (Verified Allergy, Unknown, rash, 11/12/17) BEE STING (Verified Allergy, Unknown, SWELLING AT SITE-SOB AT TIMES, ) Iodinated Diagnostic Agents (Verified Allergy, Unknown, Hives, 11/12/17) Iodine (Verified Allergy, Unknown, HIVES, 11/12/17) Pregabalin (Verified Allergy, Unknown, fever?/?rash, 11/12/17) [place] (Verified Allergy, Unknown, HIVES, 11/12/17) Sulfa Antibiotics (Verified Allergy, Unknown, RASH/HIVES, 11/12/17) Venlafaxine (Verified Allergy, Unknown, UNKNOWN, 11/12/17) Gluten (Verified Adverse Reaction, Severe, Celiac Dz = GI symptoms, ) Adhesives (Verified Adverse Reaction, Unknown, red torn skin, 11/12/17) BAND AIDS OKAY - [place] OKAY - PAPER TAPE OKAY Propoxyphene (Verified Adverse Reaction, Unknown, 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, ) Home Medications Scheduled Amoxicillin (Amoxicillin), 1 TAB PO BID B-Complex Vitamins (Vitamin B Complex), 1 TAB PO QAM Beclomethasone Dip (Qvar), 2 PUFFS INH BID Calcium (Calcium), 1 TAB PO QAM Cetirizine (Zyrtec), 10 MG PO QAM Clonazepam (Klonopin), 1 MG PO HS Coenzyme Q10 (Ubidecarenone) (Co Q10), 200 MG PO QAM Denosumab (Prolia), 60 MG INJ Q6 MONTHS Docusate Sodium (Colace), 1 CAP PO TID Enoxaparin (Lovenox), 40 MG SQ QAM Ergocalciferol (Vitamin D 04614 Unit), 1 TAB PO WK Fentanyl (Fentanyl), 1 DOSE TOP Q72H Folic Acid (Folvite), 1 MG PO QAM Gabapentin (Gabapentin), 400 MG PO TID Magnesium Oxide (Magnesium), 400 MG PO BID Methocarbamol (Robaxin), 750 MG PO BID Metoprolol Succinate (Toprol Xl), 50 MG PO QAM Multiple Vitamin (Multivitamin), 1 TAB PO QAM Oxycodone Hcl (Oxycontin), 1 TAB PO BID Potassium Chloride Microencaps (Potassium Chloride Er), 20 MEQ PO QAM Probiotic Product (Florajen3), 1 CAP PO QAM Quetiapine Fumarate (Seroquel), 200 MG PO HS Topiramate (Topamax), 100 MG PO HS Vitamin E (Vitamin E 400 Iu), 400 INTER.UNIT PO QAM Scheduled PRN Albuterol Sulfate (Proair Respiclick), 2 PUFFS INH Q4H PRN for SOB/Wheezing Butorphanol Tartrate (Butorphanol Tartrate), 1 SPRAY NA DAILY PRN for Migraine Oxycodone Immediate Rel Tab (Roxicodone Ir), 5 MG PO Q2H PRN for Severe Pain Triamcinolone Acet (Aristocort 0.1%), 1 APPLN TOP BID PRN for Psoriasis Review of Systems Constitutional: + fever, No chills, No sweats, No weight loss, No weakness Eyes: No worsening of vision ENT: No hearing loss Respiratory: No cough, No sputum, No wheezing, No shortness of breath, No dyspnea on exertion, No dyspnea at rest Cardiovascular: No chest pain Abdomen: No pain, No nausea, No vomiting, No diarrhea, No constipation, No GI bleeding Musculoskeletal: + muscle pain, + swelling, No joint pain Genitourinary - Female: No dysuria, No hematuria Neurologic: No weakness, No numbness/tingling, No balance problems Psychiatric: No depression symptoms Endocrine: No fatigue Hematologic / Lymphatic: No abnormal bleeding/bruising Integumentary: No rash Physical Exam Vital Signs Date Time Temp Pulse Resp B/P (MAP) Pulse Ox O2 Delivery O2 Flow Rate FiO2 11/12/17 22:35 36.5 102 18 130/80 (97) 93 Room Air 11/12/17 22:06 81 18 109/68 98 11/12/17 20:40 Room Air 11/12/17 19:40 86 18 104/63 95 Room Air 11/12/17 17:19 36.7 91 18 145/72 94 Room Air General Appearance: no apparent distress Head: normocephalic, atraumatic Eyes: normal inspection ENT: normal ENT inspection Neck: supple Respiratory/Chest: normal breath sounds, no respiratory distress, no accessory muscle use Cardiovascular: regular rate, rhythm, no murmur Abdomen/GI: normal bowel sounds, non tender, soft Back: normal inspection, no CVA tenderness Extremities/Musculoskelatal: + pertinent finding (bilat LE swelling with weeping lesions above both navarro, erythema spreading to the bilat inner thighs) Neurologic/Psych: alert, normal mood/affect, oriented x 3 Skin: normal color, warm/dry, no rash Lymphatic: no adenopathy Diagnostics Laboratory Results Results Past 24 Hours Test 11/12/17 19:25 11/12/17 21:01 Range/Units White Blood Count 7.69 4.8-10.8 K/uL Red Blood Count 3.80 4.2-5.4 M/uL Hemoglobin 12.8 12.0-16.0 g/dL Hematocrit 38.3 37-47 % Mean Corpuscular Volume 100.8 80-100 fL Mean Corpuscular Hemoglobin 33.7 25-34 pg Mean Corpuscular Hemoglobin Concent 33.4 32-36 g/dl Platelet Count 142 130-400 K/uL Mean Platelet Volume 10.2 7.4-10.4 fL Neutrophils (%) (Auto) 54.2 % Lymphocytes (%) (Auto) 27.2 % Monocytes (%) (Auto) 17.0 % Eosinophils (%) (Auto) 1.2 % Basophils (%) (Auto) 0.1 % Neutrophils # (Auto) 4.17 1.4-6.5 K/uL Lymphocytes # (Auto) 2.09 1.2-3.4 K/uL Monocytes # (Auto) 1.31 0.11-0.59 K/uL Eosinophils # (Auto) 0.09 0-0.5 K/uL Basophils # (Auto) 0.01 0-0.2 K/uL RDW Standard Deviation 50.5 36.4-46.3 fL RDW Coefficient of Variation 13.7 11.5-14.5 % Immature Granulocyte % (Auto) 0.3 % Immature Granulocyte # (Auto) 0.02 0.00-0.02 K/uL Sodium Level 137 136-145 mmol/L Potassium Level 3.9 3.5-5.1 mmol/L Chloride Level 106 98-107 mmol/L Carbon Dioxide Level 23 21-32 mmol/L Anion Gap 8.0 3-11 mmol/L Blood Urea Nitrogen 10 7-18 mg/dl Creatinine 1.22 0.60-1.20 mg/dl Est Creatinine Clear Calc Drug Dose 46.6 ml/min Estimated GFR () 55.0 Estimated GFR (Non- 47.4 BUN/Creatinine Ratio 8.1 10-20 Random Glucose 106 70-99 mg/dl Calcium Level 8.8 8.5-10.1 mg/dl Total Bilirubin 0.5 0.2-1 mg/dl Direct Bilirubin 0.1 0-0.2 mg/dl Aspartate Amino Transf (AST/SGOT) 26 15-37 U/L Alanine Aminotransferase (ALT/SGPT) 45 12-78 U/L Alkaline Phosphatase 88 45-117 U/L Pro-B-Type Natriuretic Peptide 384 0-900 pg/ml Total Protein 7.5 6.4-8.2 gm/dl Albumin 3.5 3.4-5.0 gm/dl Urine Color YELLOW Urine Appearance CLOUDY CLEAR Urine pH 7.5 4.5-7.5 Urine Specific [place] 1.011 1.000-1.030 Urine Protein NEG NEG Urine Glucose (UA) NEG NEG Urine Ketones NEG NEG Urine Occult Blood TRACE NEG Urine Nitrite NEG NEG Urine Bilirubin NEG NEG Urine Urobilinogen NEG NEG Urine Leukocyte Esterase LARGE NEG Urine WBC (Auto) >30 0-5 /hpf Urine RBC (Auto) 0-4 0-4 /hpf Urine Hyaline Casts (Auto) 1-5 0-5 /lpf Urine Epithelial Cells (Auto) 5-10 0-5 /lpf Urine Bacteria (Auto) NEG NEG Urine Yeast (Auto) BUDDING NONE PRSENT Microbiology Results 11/12/17 Blood Culture, Received Pending 11/12/17 Blood Culture, Received Pending Diagnostic Radiology CHEST ONE VIEW PORTABLE CLINICAL HISTORY: Pt c/o SOB dyspnea COMPARISON STUDY: 08/20/2015 FINDINGS: Chronic parenchymal scarring right upper lobe laterally. Lungs otherwise are clear. Diaphragms are smooth. PICC catheter in the prior study has been removed. IMPRESSION: Chronic change. No acute process. L VENOUS DOPP LOWER EXT UNILAT CLINICAL HISTORY: Pt c/o LLE swelling pain. Edema. TECHNIQUE: Venous Doppler COMPARISON STUDY: None FINDINGS: Normal study IMPRESSION: Normal study Impression Assessment and Plan This is a 62 yo f that failed oupatient therapy of chronic LE cellulitis treatment here for IV antibiotics Bilat LE cellulitis, failure of outpatient mx - continue Rocephin and Vanco - consult ID - repeat CBC in am - Blood cx pending COPD, stable - continue Q selvin CKD III- stable - follow BMP, Cr at BL (approx 1.2-1.3) Migraine with aura - Topamax 100 mg HS Peripheral neuropathy / chronic pain mx - cont Fentanyl and oyxcontin - continue gabapentin 400 mg HS - continue Methocarbamol 750 mg bid HTN/TIA/ CAD - continue Toprol XL 50 mg am Mood disorder - cont Seroquel 200 mg HS Hypomagnesemia - continue Mg Oxide supp DVT prophylaxis, H/O DVT Lovenox 40 SC daily FULL CODE Attending addendum: I have physically seen this patient, have supervised the medical residents activities, and agree with the H&P unless as otherwise noted. Assessment and Plan: Cellulitis of bilateral lower extremity/failure of outpatient treatment-- Place on vancomycin IV per pharmacokinetic monitoring, and ceftriaxone 1 g IV daily. Follow blood culture and sensitivity Consult Dr. Nielson from infectious disease who was following her in the past Needs better management of lower extremity edema to treat this occurrence and prevent future occurrences. Level of Care Med/Surg Advanced Directives Existing Advance Directive: No Existing Living Will: No Existing Power of Armature Tester: No Resuscitation Status FULL RESUSCITATION VTE Prophylaxis VTE Risk Assessment Done? Y/N: Yes Risk Level: Moderate Given or contraindicated: Enoxaparin (Lovenox)SQ Social Service Consult None Apply Note Total Time: Critical Care 30 - 74 minutes Additional Copies To Reynold Villegas M.D.
[2017-11-12] MEDS ORDERED: FENTANYL TOP SCH (23:45)
[2017-11-12] MEDS ORDERED: VANCOMYCIN CONSULT ACTIVE PRN (23:45)
[2017-11-12] MEDS ORDERED: ALBUTEROL HFA 8 GM INHALER INH PRN (23:45)
[2017-11-12] MEDS ORDERED: TRIAMCINOLONE ACET 0.1% CR 15 GM TUBE EXT PRN (23:45)
[2017-11-12] MEDS ORDERED: BUTORPHANOL TARTRATE 10 MG/ML PRN (23:45)
[2017-11-12 23:56] LABS: INR 1.1 (0.9-1.1)
[2017-11-13] MEDS: OXYCODONE HCL IR 5 MG TAB (IMMEDIATE RELEASE) PO PRN ×5 (00:47→23:15)
[2017-11-13] MEDS ORDERED: VANCOMYCIN CONSULT ACTIVE PRN (04:15)
[2017-11-13 06:51] LABS: INR 1.1 (0.9-1.1)
[2017-11-13 07:17] LABS: PTT PATIENT 49.1 SECONDS (21.0-31.0)
[2017-11-13 07:38] VITALS: BP 102/65; PULSE 93; TEMP 37.4; O2SAT 93
--- NOTE | 2017-11-13 07:53 | Pharmacy Progress Note ---
Pharmacy Abx Initial Consult Date of Service Nov 13, 2017. Pharmacy Dosing Scope Date of Consult: 11/12/17 Consultation requested by: Dr. Booth Pharmacy is consulted to initiate Vancomycin IV dosing therapy, order appropriate labs and adjust drug dose/frequency. Subjective The patient is a 62 year old female admitted on Nov 12, 2017 at 21:18 with complaints of worsening LE cellulitis. Objective Height (Feet): 5 Height (Inches): 1.00 Weight (Kilograms): 82.100 Vital Signs (Past 12Hrs) Vital Signs Past 12 Hours Date Time Temp Pulse Resp B/P (MAP) Pulse Ox O2 Delivery O2 Flow Rate FiO2 11/13/17 07:38 37.4 93 16 102/65 (77) 93 Nasal Cannula 1.0 11/13/17 00:00 Room Air 11/12/17 23:01 36.5 102 18 130/80 93 Room Air 11/12/17 22:35 36.5 102 18 130/80 (97) 93 Room Air 11/12/17 22:06 81 18 109/68 98 11/12/17 20:40 Room Air Lab Results (24Hrs) Laboratory Tests (24 Hours) Test 11/12/17 19:25 White Blood Count 7.69 K/uL (4.8-10.8) Red Blood Count 3.80 M/uL (4.2-5.4) L Hemoglobin 12.8 g/dL (12.0-16.0) Hematocrit 38.3 % (37-47) Mean Corpuscular Volume 100.8 fL (80-100) H Mean Corpuscular Hemoglobin 33.7 pg (25-34) Mean Corpuscular Hemoglobin Concent 33.4 g/dl (32-36) Platelet Count 142 K/uL (130-400) Mean Platelet Volume 10.2 fL (7.4-10.4) Neutrophils (%) (Auto) 54.2 % Lymphocytes (%) (Auto) 27.2 % Monocytes (%) (Auto) 17.0 % Eosinophils (%) (Auto) 1.2 % Basophils (%) (Auto) 0.1 % Neutrophils # (Auto) 4.17 K/uL (1.4-6.5) Lymphocytes # (Auto) 2.09 K/uL (1.2-3.4) Monocytes # (Auto) 1.31 K/uL (0.11-0.59) H Eosinophils # (Auto) 0.09 K/uL (0-0.5) Basophils # (Auto) 0.01 K/uL (0-0.2) Micro Results Date/Time Source Procedure Growth Status 11/12/17 19:33 Blood Blood Culture Pending Received 11/12/17 19:25 Blood Blood Culture Pending Received Risk Factors for Resistance * Antimicrobial use within the last 90 days/Pt takes chronic suppressive therapy as outpatient (Amoxicillin 875 mg PO BID) Assessment & Plan Assessment 62 year old female with chronic LE cellulitis presents with acute worsening, initiated on Vancomycin/Rocephin IV. Pt follows with Dr. Nielson as outpatient and has been on chronic suppressive Amoxicillin 875 mg PO BID. ID consulted this admission. Blood cultures pending. Plan Vancomycin IV * Loading dose: 1000 mg (12 mg/kg) -- given in ED * Maintenance dose: 1250 mg IV (15 mg/kg) every 18 hours * Goal trough level for cellulitis: 15 mcg/mL * Trough level ordered for 11/14/17 @2130 prior to 2200 dose. Pharmacy will continue to follow and will adjust dose/frequency as necessary. Thank you.
[2017-11-13] MEDS ORDERED: NON-FORMULARY MEDICATION (Coenzyme Q10 (Ubidecarenone) (Co Q10) 200 MG) PO SCH (08:00)
[2017-11-13] MEDS ORDERED: HEPARIN SOD 5000 UNIT/0.5 ML CARP SQ SCH (09:00)
[2017-11-13] MEDS ORDERED: VANCOMYCIN INJ 1,000 MG in SODIUM CHLORIDE 0.9% 250ML 250 ML IV SCH ×4 (09:00)
[2017-11-13] MEDS: OXYCODONE HCL 20 MG TABCR (OXYCONTIN) PO SCH ×2 (09:27→19:40)
[2017-11-13] MEDS: VANCOMYCIN INJ 1,250 MG in SODIUM CHLORIDE 0.9% 250ML 250 ML IV SCH (09:27)
[2017-11-13] MEDS: VITAMIN B COMPLEX TAB PO SCH (09:28)
[2017-11-13] MEDS: METOPROLOL SUCC 50MG EXT REL TAB PO SCH (09:28)
[2017-11-13] MEDS: CALCIUM 600MG + VIT D 400 IU TAB PO SCH (09:28)
[2017-11-13] MEDS: MULTIVITAMIN TAB PO SCH (09:28)
[2017-11-13] MEDS: LACTOBACILLUS ACIDOPHILUS (FLORANEX) TAB PO SCH (09:29)
[2017-11-13] MEDS: MAGNESIUM OXIDE 400 MG TAB PO SCH ×2 (09:29→19:40)
[2017-11-13] MEDS: GABAPENTIN 400 MG CAP PO SCH ×3 (09:29→19:40)
[2017-11-13] MEDS: CETIRIZINE HCL 10 MG TAB PO SCH (09:29)
[2017-11-13] MEDS: METHOCARBAMOL 750 MG TAB PO SCH ×2 (09:29→19:40)
[2017-11-13] MEDS: DOCUSATE SODIUM 100 MG CAP PO SCH ×3 (09:30→19:40)
[2017-11-13] MEDS: CHOLECALCIFEROL 1000 INTER.UNIT TAB PO SCH (09:30)
[2017-11-13] MEDS: POTASSIUM CHLORIDE 20 MEQ TABCR PO SCH (09:30)
[2017-11-13] MEDS: CHECK FENTANYL PATCH PLACEMENT SCH ×3 (09:32→23:10)
[2017-11-13] MEDS: BECLOMETHASONE DIP HFA 80 MCG 8.7G INH INH SCH ×2 (09:43→19:40)
[2017-11-13] MEDS: ENOXAPARIN 40 MG/0.4 ML SYR SQ SCH (09:44)
--- NOTE | 2017-11-13 10:40 | Medical Consult ---
Consultation Date of Consultation: Nov 13, 2017. Attending Physician: Leeroy Mcelroy MD Reason for Consultation: Failure of outpatient therapy History of Present Illness 62-year-old female well known to me from infectious disease outpatient follow-up , with history of multiple recurrences of cellulitis of the lower extremities in the setting of chronic venous stasis disease. She has been maintained for several years on oral amoxicillin as suppressive therapy with relatively good results. Has not been hospitalized since 2014. She now presents with several days of progressively worsening bilateral lower extremity erythema, pain, and low-grade fevers with chills. Has been started on IV vancomycin and ceftriaxone. She rates pain in her legs currently 6/10 in intensity Past Medical/Surgical History Medical Problems: (1) Acute blood loss anemia Status: Acute (2) Acute blood loss anemia Status: Acute (3) Anemia Status: Acute (4) Anemia Status: Acute (5) Asthma Status: Chronic (6) ASTHMA, UNSPECIFIED Status: Chronic (7) ASTHMA, UNSPECIFIED Status: Chronic (8) Bronchitis Status: Chronic (9) Cellulitis Status: Chronic (10) Cellulitis Status: Chronic (11) Cellulitis of both lower extremities Status: Acute (12) Cellulitis of both lower extremities Status: Acute (13) Cellulitis of right leg Status: Acute (14) CHRONIC KIDNEY DISEASE, STAGE III (MODERATE) Status: Chronic (15) CHRONIC KIDNEY DISEASE, STAGE III (MODERATE) Status: Chronic (16) Contusion of left leg Status: Acute (17) Contusion of left leg Status: Acute (18) Contusion of leg, left Status: Acute (19) Contusion of leg, left Status: Acute (20) Contusion of leg, left Status: Acute (21) Emphysema Status: Chronic (22) Failure of outpatient treatment Status: Acute (23) Fall Status: Acute (24) Fall Status: Acute (25) Fever Status: Acute (26) Fever Status: Acute (27) Frequent falls Status: Chronic (28) Frequent falls Status: Chronic (29) History of malignant lymphoma Status: Chronic (30) HYDRONEPHROSIS Status: Chronic (31) HYDRONEPHROSIS Status: Chronic (32) Hypertension Nos Status: Chronic (33) Hypertension Nos Status: Chronic (34) Hypotension Status: Acute (35) Hypotension Status: Acute (36) Hypotension Status: Acute (37) Hypotension Status: Acute (38) Hypotension Status: Acute (39) Hypoxia Status: Acute (40) Hypoxia Status: Acute (41) HYPTNSV CHR KID DIS, UNSPEC, 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 (42) HYPTNSV CHR KID DIS, UNSPEC, 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 (43) Left leg cellulitis Status: Acute (44) Lymphangitis, acute, lower leg Status: Acute (45) Orthostatic hypotension Status: Acute (46) Orthostatic hypotension Status: Acute (47) Pancytopenia Status: Chronic (48) Pneumonia Status: Chronic (49) Rash and nonspecific skin eruption Status: Acute (50) Rash and nonspecific skin eruption Status: Acute (51) Sepsis Status: Acute (52) Sepsis Status: Acute (53) Stroke Status: Acute (54) Stroke Status: Acute (55) UTI (lower urinary tract infection) Status: Acute (56) UTI (lower urinary tract infection) Status: Acute (57) UTI (lower urinary tract infection) Status: Acute (58) UTI (urinary tract infection) Status: Acute (59) UTI (urinary tract infection) Status: Acute Social History Problems: (1) Hepatitis C Status: Chronic (2) Hepatitis C Status: Chronic Medical Problems: (1) Acute blood loss anemia (2) Anemia (3) Asthma (4) Asthma (5) ASTHMA, UNSPECIFIED (6) ASTHMA, UNSPECIFIED (7) ASTHMA, UNSPECIFIED (8) Bronchitis (9) Bronchitis (10) Carcinoma of upper lobe, bronchus or lung (11) Carcinoma of upper lobe, bronchus or lung (12) Carcinoma of upper lobe, bronchus or lung (13) Cellulitis (14) Cellulitis (15) CHRONIC KIDNEY DISEASE, STAGE III (MODERATE) (16) CHRONIC KIDNEY DISEASE, STAGE III (MODERATE) (17) CHRONIC KIDNEY DISEASE, STAGE III (MODERATE) (18) Contusion of left leg (19) DVT (deep venous thrombosis) (20) DVT (deep venous thrombosis) (21) Emphysema (22) Emphysema (23) Failure of outpatient treatment (24) Fall (25) Frequent falls (26) Frequent falls (27) Frequent falls (28) History of malignant lymphoma (29) History of malignant lymphoma (30) History of malignant lymphoma (31) HYDRONEPHROSIS (32) HYDRONEPHROSIS (33) HYDRONEPHROSIS (34) Hypertension Nos (35) Hypertension Nos (36) Hypertension Nos (37) HYPTNSV CHR KID DIS, UNSPEC, 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 (38) HYPTNSV CHR KID DIS, UNSPEC, 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 (39) HYPTNSV CHR KID DIS, UNSPEC, 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 (40) Lung cancer (41) Lung cancer (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) MRSA (methicillin resistant Staphylococcus aureus) (44) MRSA (methicillin resistant Staphylococcus aureus) (45) Orthostatic hypotension (46) Pancytopenia (47) Pancytopenia (48) Pancytopenia (49) Pneumonia (50) Pneumonia (51) Rash and nonspecific skin eruption (52) Stroke (53) Thrombocytopenia (54) Urinary tract infection Surgical Problems: (1) History of tubal ligation (2) History of tubal ligation (3) History of ureter stent (4) History of ureter stent (5) Tubal Ligation Status (6) Tubal Ligation Status (7) Tubal Ligation Status Social History Problems: (1) Hepatitis C (2) Hepatitis C (3) Hepatitis C Family History Cancer Diabetes mellitus Heart disease Hypertension Social History Smoking Status: Never Smoker Smokeless Tobacco Use: No Alcohol Use: none Drug Use: none Marital Status: Housing Status: alf Occupation Status: retired, disabled Allergies Coded Allergies: Levofloxacin (Verified Allergy, Intermediate, numbness/weakness, 11/12/17) Pt is OK to receive CIPRO Allopurinol (Verified Allergy, Unknown, rash, 11/12/17) BEE STING (Verified Allergy, Unknown, SWELLING AT SITE-SOB AT TIMES, ) Iodinated Diagnostic Agents (Verified Allergy, Unknown, Hives, 11/12/17) Iodine (Verified Allergy, Unknown, HIVES, 11/12/17) Pregabalin (Verified Allergy, Unknown, fever?/?rash, 11/12/17) [place] (Verified Allergy, Unknown, HIVES, 11/12/17) Sulfa Antibiotics (Verified Allergy, Unknown, RASH/HIVES, 11/12/17) Venlafaxine (Verified Allergy, Unknown, UNKNOWN, 11/12/17) Gluten (Verified Adverse Reaction, Severe, Celiac Dz = GI symptoms, ) Adhesives (Verified Adverse Reaction, Unknown, red torn skin, 11/12/17) BAND AIDS OKAY - [place] OKAY - PAPER TAPE OKAY Propoxyphene (Verified Adverse Reaction, Unknown, CLEAN OUT DRILLER side effects, ) Current Inpatient Medications Current Inpatient Medications Medications (Trade) Dose Ordered Sig/Artie Route Start Time Stop Time Status Last Admin Dose Admin Acetaminophen (Tylenol Tab) 650 mg Q4H PRN PO 11/12/17 21:15 12/12/17 21:14 Al Hydrox/Mg Hydrox/Simethicone (Maalox Max Susp) 15 ml Q4H PRN PO 11/12/17 21:15 12/12/17 21:14 Magnesium Hydroxide (Milk Of Magnesia Susp) 30 ml Q6H PRN PO 11/12/17 21:15 12/12/17 21:14 Polyethylene (Miralax Powder Packet) 17 gm DAILY PRN PO 11/12/17 21:15 12/12/17 21:14 Ondansetron HCl (Zofran Inj) 4 mg Q6H PRN IV 11/12/17 21:15 12/12/17 21:14 Ceftriaxone Sodium 1 gm/ Dextrose 50 ml @ 100 mls/hr Q24H IV 11/13/17 20:00 11/13/17 20:29 Miscellaneous Information (Consult) 1 ea UD PRN N/A 11/12/17 23:45 12/12/17 23:44 Beclomethasone Dipropionate (Qvar 80 Mcg Hfa Inhaler) 2 puffs BID INH 11/13/17 08:00 12/13/17 07:59 11/13/17 09:43 2 PUFFS Butorphanol Tartrate (Butorphanol Tartrate Mark) 2 sprays DAILY PRN NA 11/12/17 23:45 12/12/17 23:44 Cetirizine HCl (zyrTEC TAB) 10 mg QAM PO 11/13/17 08:00 12/13/17 07:59 11/13/17 09:29 10 MG Clonazepam (Klonopin Tab) 1 mg HS PO 11/13/17 21:00 12/13/17 20:59 Docusate Sodium (coLACE CAP) 100 mg TID PO 11/13/17 08:00 12/13/17 07:59 11/13/17 09:30 100 MG Cholecalciferol (Vitamin D Tab) 1,000 inter.unit DAILY PO 11/13/17 08:00 12/13/17 07:59 11/13/17 09:30 1,000 INTER.UNIT Folic Acid (Folvite Tab) 1 mg QAM PO 11/13/17 08:00 12/13/17 07:59 11/13/17 09:30 1 MG Gabapentin (Neurontin Cap) 400 mg TID PO 11/13/17 08:00 12/13/17 07:59 11/13/17 09:29 400 MG Methocarbamol (Robaxin Tab) 750 mg BID PO 11/13/17 08:00 12/13/17 07:59 11/13/17 09:29 750 MG Metoprolol Succinate (Toprol Xl Tab) 50 mg QAM PO 11/13/17 08:00 12/13/17 07:59 11/13/17 09:28 50 MG Multivitamins (Multivitamin Tab) 1 tab QAM PO 11/13/17 08:00 12/13/17 07:59 11/13/17 09:28 1 TAB Oxycodone HCl (Oxycontin Tab) 20 mg BID PO 11/13/17 08:00 11/27/17 07:59 11/13/17 09:27 20 MG Oxycodone HCl (Roxicodone Immediate Rel Tab) 5 mg Q2H PRN PO 11/12/17 23:45 11/26/17 23:44 11/13/17 09:27 5 MG Potassium Chloride (Klor-Con Tab) 20 meq QAM PO 11/13/17 08:00 12/13/17 07:59 11/13/17 09:30 20 MEQ Quetiapine Fumarate (seroQUEL TAB) 200 mg HS PO 11/13/17 21:00 12/13/17 20:59 Topiramate (Topamax Tab) 100 mg HS PO 11/13/17 21:00 12/13/17 20:59 Triamcinolone Acetonide (Kenalog 0.1% Cream) 1 appln BID PRN EXT 11/12/17 23:45 12/12/17 23:44 Albuterol (Ventolin Hfa Inhaler) 2 puffs Q4H PRN INH 11/12/17 23:45 12/12/17 23:44 Miscellaneous Information (Order Awaiting Action) 1 ea QS N/A 11/13/17 08:00 12/13/17 07:59 Vitamin B Complex (Vitamin B Complex) 1 tab QAM PO 11/13/17 08:00 12/13/17 07:59 11/13/17 09:28 1 TAB Calcium/Vitamin D (Caltrate Plus Tab) 1 tab QAM PO 11/13/17 08:00 12/13/17 07:59 11/13/17 09:28 1 TAB Miscellaneous Information (Order Awaiting Action) 1 ea QS N/A 11/13/17 08:00 12/13/17 07:59 Magnesium Oxide (Mag-Ox Tab) 400 mg BID PO 11/13/17 08:00 12/13/17 07:59 11/13/17 09:29 400 MG Lactobacillus Acidophilus (Floranex Tab) 1 tab QAM PO 11/13/17 08:00 12/13/17 07:59 11/13/17 09:29 1 TAB Fentanyl (Duragesic Patch) 75 mcg Q3D TD 11/15/17 09:00 11/29/17 08:59 Miscellaneous (Fentanyl Patch Remove & Waste) 1 ea Q3D N/A 11/15/17 08:59 12/15/17 08:58 Miscellaneous Information (Check Fentanyl Patch Placement) 1 ea QS N/A 11/13/17 08:00 12/13/17 07:59 11/13/17 09:32 1 EA Enoxaparin Sodium (Lovenox Inj) 40 mg QAM SQ 11/13/17 08:00 12/13/17 07:59 11/13/17 09:44 40 MG Vancomycin HCl 1250 mg/Sodium Chloride 275 ml @ 125 mls/hr Q18H IV 11/13/17 10:00 11/23/17 09:59 11/13/17 09:27 125 MLS/HR Review of Systems Constitutional: + fever, + chills Eyes: No problem reported Respiratory: No problem reported Cardiovascular: No problem reported Abdomen: No problem reported Musculoskeletal: + muscle pain, + swelling Genitourinary - Female: No problem reported Neurologic: No problem reported Psychiatric: No problem reported Endocrine: No problem reported Hematologic / Lymphatic: No problem reported Integumentary: + new/changing skin lesions Allergic / Immunologic: No problem reported Physical Exam Date Time Temp Pulse Resp B/P (MAP) Pulse Ox O2 Delivery O2 Flow Rate FiO2 11/13/17 07:38 37.4 93 16 102/65 (77) 93 Nasal Cannula 1.0 11/13/17 00:00 Room Air 11/12/17 23:01 36.5 102 18 130/80 93 Room Air 11/12/17 22:35 36.5 102 18 130/80 (97) 93 Room Air 11/12/17 22:06 81 18 109/68 98 11/12/17 20:40 Room Air 11/12/17 19:40 86 18 104/63 95 Room Air 11/12/17 17:19 36.7 91 18 145/72 94 Room Air General Appearance: WD/WN, no apparent distress Head: normocephalic, atraumatic Eyes: normal inspection, EOMI, sclerae normal ENT: normal ENT inspection, pharynx normal Neck: supple, no adenopathy, thyroid normal, trachea midline Respiratory/Chest: chest non-tender, lungs clear, normal breath sounds, no respiratory distress Cardiovascular: regular rate, rhythm, no gallop, no murmur Abdomen/GI: normal bowel sounds, non tender, soft, no organomegaly Back: normal inspection, no CVA tenderness Extremities/Musculoskelatal: normal capillary refill, + inflammation, + swelling Neurologic/Psych: alert, normal mood/affect, oriented x 3 Skin: normal color, no rash, + pertinent finding (Bilateral lower extremity venous chronic stasis disease, with overlying cellulitis below her knees.) Lymphatic: no adenopathy Laboratory Results Date/Time Source Procedure Growth Status 11/12/17 19:33 Blood Blood Culture Pending Received 11/12/17 19:25 Blood Blood Culture Pending Received Last 24 Hours Test 11/12/17 19:25 11/12/17 21:01 11/13/17 06:05 White Blood Count 7.69 K/uL Red Blood Count 3.80 M/uL Hemoglobin 12.8 g/dL Hematocrit 38.3 % Mean Corpuscular Volume 100.8 fL Mean Corpuscular Hemoglobin 33.7 pg Mean Corpuscular Hemoglobin Concent 33.4 g/dl Platelet Count 142 K/uL Mean Platelet Volume 10.2 fL Neutrophils (%) (Auto) 54.2 % Lymphocytes (%) (Auto) 27.2 % Monocytes (%) (Auto) 17.0 % Eosinophils (%) (Auto) 1.2 % Basophils (%) (Auto) 0.1 % Neutrophils # (Auto) 4.17 K/uL Lymphocytes # (Auto) 2.09 K/uL Monocytes # (Auto) 1.31 K/uL Eosinophils # (Auto) 0.09 K/uL Basophils # (Auto) 0.01 K/uL RDW Standard Deviation 50.5 fL RDW Coefficient of Variation 13.7 % Immature Granulocyte % (Auto) 0.3 % Immature Granulocyte # (Auto) 0.02 K/uL Prothrombin Time 11.3 SECONDS 12.0 SECONDS Prothromb Time International Ratio 1.1 1.1 Sodium Level 137 mmol/L Potassium Level 3.9 mmol/L Chloride Level 106 mmol/L Carbon Dioxide Level 23 mmol/L Anion Gap 8.0 mmol/L Blood Urea Nitrogen 10 mg/dl Creatinine 1.22 mg/dl Est Creatinine Clear Calc Drug Dose 46.6 ml/min Estimated GFR () 55.0 Estimated GFR (Non- 47.4 BUN/Creatinine Ratio 8.1 Random Glucose 106 mg/dl Calcium Level 8.8 mg/dl Total Bilirubin 0.5 mg/dl Direct Bilirubin 0.1 mg/dl Aspartate Amino Transf (AST/SGOT) 26 U/L Alanine Aminotransferase (ALT/SGPT) 45 U/L Alkaline Phosphatase 88 U/L Pro-B-Type Natriuretic Peptide 384 pg/ml Total Protein 7.5 gm/dl Albumin 3.5 gm/dl Urine Color YELLOW Urine Appearance CLOUDY Urine pH 7.5 Urine Specific [place] 1.011 Urine Protein NEG Urine Glucose (UA) NEG Urine Ketones NEG Urine Occult Blood TRACE Urine Nitrite NEG Urine Bilirubin NEG Urine Urobilinogen NEG Urine Leukocyte Esterase LARGE Urine WBC (Auto) >30 /hpf Urine RBC (Auto) 0-4 /hpf Urine Hyaline Casts (Auto) 1-5 /lpf Urine Epithelial Cells (Auto) 5-10 /lpf Urine Bacteria (Auto) NEG Urine Yeast (Auto) BUDDING Activated Partial Thromboplast Time 49.1 SECONDS Partial Thromboplastin Ratio 1.9 L VENOUS DOPP LOWER EXT UNILAT CLINICAL HISTORY: Pt c/o LLE swelling pain. Edema. TECHNIQUE: Venous Doppler COMPARISON STUDY: None FINDINGS: Normal study IMPRESSION: Normal study The above report was generated using voice recognition software. It may contain grammatical, syntax or spelling errors. Electronically signed by: Shahram Heaton M.D. 11/12/2017 8:20 PM Dictated Date/Time: 11/12/2017 8:20 PM The status of this report is Signed. Draft = Not yet reviewed or approved by Radiologist. Assessment & Plan 62-year-old female with recurrent lower extremity cellulitis in the setting of chronic venous stasis disease. Current antibiotic therapy appropriate, would increase dose of ceftriaxone to 2 g daily. Await further culture results. Length of IV antibiotics will be determined by clinical response and culture results. Will follow.
[2017-11-13 14:58] VITALS: BP 99/61; PULSE 80; TEMP 37.1; O2SAT 93
[2017-11-13] MEDS ORDERED: CEFTRIAXONE SOD INJ 1 GM in DEXTROSE 5% ADD-VANTAGE 50ML 50 ML IV SCH (20:00)
[2017-11-13] MEDS: TOPIRAMATE 100 MG TAB PO SCH ×2 (21:00→23:08)
[2017-11-13] MEDS: QUETIAPINE FUMARATE 200 MG TAB PO SCH ×2 (21:00→23:08)
[2017-11-13] MEDS: CLONAZEPAM 1 MG TAB PO SCH ×2 (21:00→23:08)
--- NOTE | 2017-11-13 22:49 | Progress Note ---
Subjective Date of Service: Nov 13, 2017. Subjective Pt evaluation today including: conversation w/ patient, physical exam, chart review, lab review, review of studies (doppler, etc), review of inpatient medication list Pain: legs, L>R PO Intake: normal Voiding: no voiding problems pt w/o complaints except for mild leg discomfort thinks the erythema in the left upper medial thigh is improved Problem List Medical Problems: (1) Acute blood loss anemia Status: Acute (2) Acute blood loss anemia Status: Acute (3) Anemia Status: Acute (4) Anemia Status: Acute (5) Asthma Status: Chronic (6) ASTHMA, UNSPECIFIED Status: Chronic (7) ASTHMA, UNSPECIFIED Status: Chronic (8) Bronchitis Status: Chronic (9) Cellulitis Status: Chronic (10) Cellulitis Status: Chronic (11) Cellulitis of both lower extremities Status: Acute (12) Cellulitis of both lower extremities Status: Acute (13) Cellulitis of right leg Status: Acute (14) CHRONIC KIDNEY DISEASE, STAGE III (MODERATE) Status: Chronic (15) CHRONIC KIDNEY DISEASE, STAGE III (MODERATE) Status: Chronic (16) Contusion of left leg Status: Acute (17) Contusion of left leg Status: Acute (18) Contusion of leg, left Status: Acute (19) Contusion of leg, left Status: Acute (20) Contusion of leg, left Status: Acute (21) Emphysema Status: Chronic (22) Failure of outpatient treatment Status: Acute (23) Fall Status: Acute (24) Fall Status: Acute (25) Fever Status: Acute (26) Fever Status: Acute (27) Frequent falls Status: Chronic (28) Frequent falls Status: Chronic (29) History of malignant lymphoma Status: Chronic (30) HYDRONEPHROSIS Status: Chronic (31) HYDRONEPHROSIS Status: Chronic (32) Hypertension Nos Status: Chronic (33) Hypertension Nos Status: Chronic (34) Hypotension Status: Acute (35) Hypotension Status: Acute (36) Hypotension Status: Acute (37) Hypotension Status: Acute (38) Hypotension Status: Acute (39) Hypoxia Status: Acute (40) Hypoxia Status: Acute (41) HYPTNSV CHR KID DIS, UNSPEC, 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 (42) HYPTNSV CHR KID DIS, UNSPEC, 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 (43) Left leg cellulitis Status: Acute (44) Lymphangitis, acute, lower leg Status: Acute (45) Orthostatic hypotension Status: Acute (46) Orthostatic hypotension Status: Acute (47) Pancytopenia Status: Chronic (48) Pneumonia Status: Chronic (49) Rash and nonspecific skin eruption Status: Acute (50) Rash and nonspecific skin eruption Status: Acute (51) Sepsis Status: Acute (52) Sepsis Status: Acute (53) Stroke Status: Acute (54) Stroke Status: Acute (55) UTI (lower urinary tract infection) Status: Acute (56) UTI (lower urinary tract infection) Status: Acute (57) UTI (lower urinary tract infection) Status: Acute (58) UTI (urinary tract infection) Status: Acute (59) UTI (urinary tract infection) Status: Acute Social History Problems: (1) Hepatitis C Status: Chronic (2) Hepatitis C Status: Chronic Review of Systems Constitutional: No fever, No chills Respiratory: No shortness of breath Cardiac: No chest pain Abdomen: No pain Objective Vital Signs Date Time Temp Pulse Resp B/P (MAP) Pulse Ox O2 Delivery O2 Flow Rate FiO2 11/13/17 20:00 Room Air 11/13/17 16:20 Room Air 11/13/17 14:58 37.1 80 16 99/61 (74) 93 Room Air 11/13/17 09:30 Room Air 11/13/17 07:38 37.4 93 16 102/65 (77) 93 Nasal Cannula 1.0 11/13/17 00:00 Room Air 11/12/17 23:01 36.5 102 18 130/80 93 Room Air Physical Exam General Appearance: no apparent distress ENT: pharynx normal Neck: no JVD Respiratory/Chest: lungs clear, no respiratory distress, no accessory muscle use Cardiovascular: regular rate, rhythm, no gallop, no JVD, no murmur Abdomen: normal bowel sounds, non tender, soft, no organomegaly Extremities: + pedal edema, + swelling (1-2+ b/l, worse on left) Neurologic/Psychiatric: alert, oriented x 3 Skin: + pertinent finding (extensive cellulitis of LLE in background of chronic venous stasis changes; erythema & warmth extends from just superior to left ankle to the knee; there is also faint erythema extending from medial distal thigh proximally to the left medial groin; RLE below the knee with very mild cellulitis, ending just above the ankle as well ) Laboratory Results Last 24 Hours Test 11/13/17 06:05 Prothrombin Time 12.0 SECONDS Prothromb Time International Ratio 1.1 Activated Partial Thromboplast Time 49.1 SECONDS Partial Thromboplastin Ratio 1.9 Assessment and Plan 62yo female with: 1. b/l LE cellulitis, much worse on left - cont vanco and rocephin; ID consult appreciated; will increase rocephin to 2gm daily per Dr. Nielson's recommendation. Blood cx's thus far neg. 2. COPD - stable, not active; cont home inhalers. 3. anxiety/ Depression - stable, cont home meds. 4. Squamous cell ca of lung 2014 - noted. 5. chronic pain syndrome, 2nd to neuropathy & chronic back pain - cont fentanyl patch, etc. 6. peripheral neuropathy - legs - cont gabapentin. 7. h/o Stroke - noted, but oddly is not on anything for secondary stroke prevention. Will need to inquire w/ patient if she has ever taken aspirin, plavix, etc. 8. DVT proph - lovenox 40mg daily. 9. CKD stage 2-3 - BMP in am for stability. Continued [facility] stay due to: multiple IV medications needed Discharge planning: home
[2017-11-13 23:26] VITALS: BP 100/62; PULSE 76; TEMP 36.8; O2SAT 92
[2017-11-14] MEDS: VANCOMYCIN INJ 1,250 MG in SODIUM CHLORIDE 0.9% 250ML 250 ML IV SCH ×2 (03:04→22:09)
[2017-11-14 06:53] LABS: CALCIUM 7.7 mg/dl (8.5-10.1); CREATININE 1.25 mg/dl (0.60-1.20); POTASSIUM 3.9 mmol/L (3.5-5.1)
[2017-11-14] MEDS: CHOLECALCIFEROL 1000 INTER.UNIT TAB PO SCH (07:36)
[2017-11-14] MEDS: OXYCODONE HCL 20 MG TABCR (OXYCONTIN) PO SCH ×2 (07:36→21:28)
[2017-11-14] MEDS: CETIRIZINE HCL 10 MG TAB PO SCH (07:37)
[2017-11-14] MEDS: VITAMIN B COMPLEX TAB PO SCH (07:37)
[2017-11-14] MEDS: MAGNESIUM OXIDE 400 MG TAB PO SCH ×2 (07:37→21:28)
[2017-11-14] MEDS: CALCIUM 600MG + VIT D 400 IU TAB PO SCH (07:37)
[2017-11-14] MEDS: OXYCODONE HCL IR 5 MG TAB (IMMEDIATE RELEASE) PO PRN ×4 (07:37→18:53)
[2017-11-14] MEDS: BECLOMETHASONE DIP HFA 80 MCG 8.7G INH INH SCH ×2 (07:38→21:27)
[2017-11-14] MEDS: LACTOBACILLUS ACIDOPHILUS (FLORANEX) TAB PO SCH (07:38)
[2017-11-14] MEDS: POTASSIUM CHLORIDE 20 MEQ TABCR PO SCH (07:38)
[2017-11-14] MEDS: METHOCARBAMOL 750 MG TAB PO SCH ×2 (07:39→21:29)
[2017-11-14] MEDS: ENOXAPARIN 40 MG/0.4 ML SYR SQ SCH (07:39)
[2017-11-14] MEDS: GABAPENTIN 400 MG CAP PO SCH ×3 (07:39→21:28)
[2017-11-14] MEDS: MULTIVITAMIN TAB PO SCH (07:39)
[2017-11-14] MEDS: METOPROLOL SUCC 50MG EXT REL TAB PO SCH (07:39)
[2017-11-14] MEDS: DOCUSATE SODIUM 100 MG CAP PO SCH ×3 (07:39→21:28)
[2017-11-14] MEDS: CHECK FENTANYL PATCH PLACEMENT SCH ×2 (07:40→16:00)
[2017-11-14 07:50] VITALS: BP 105/62; PULSE 74; TEMP 36.5; O2SAT 94
[2017-11-14 09:46] LABS: HEMATOCRIT 32.4 % (37-47); HEMOGLOBIN 10.6 g/dL (12.0-16.0); MEAN CELL VOLUME 101.3 fL (80-100); MEAN CORPUSCULAR HEMOGLOBIN 33.1 pg (25-34); MEAN CORPUSCULAR HGB CONC 32.7 g/dl (32-36); MEAN PLATELET VOLUME 9.9 fL (7.4-10.4); PLATELET COUNT 122 K/uL (130-400); RED CELL DISTRIBUTION WIDTH CV 13.8 % (11.5-14.5); RED CELL DISTRIBUTION WIDTH SD 51.6 fL (36.4-46.3); WHITE BLOOD COUNT 5.28 K/uL (4.8-10.8)
--- NOTE | 2017-11-14 11:47 | Hospitalist Progress Note ---
Hospitalist Progress Note Date of Service Nov 14, 2017. (Sheron Parr ., RHINA-C) Subjective Pt evaluation today including: conversation w/ patient, physical exam, chart review, lab review, review of inpatient medication list Pain: 10/10 aching LLE pain PO Intake: Tolerating PO diet Voiding: no voiding problems The patient reports feeling the same. She complains of 10/10 aching pain in her LLE, even at rest, and this is exacerbated by touch, movement and walking. She states that the erythema going up her medial thigh seems minimally improved. The patient reports that last night she had some nausea and did not eat her supper, however she denies any abdominal pain or vomiting. She was able to eat some breakfast and states that the nausea is improving. The patient denies fevers, chills, sweats, chest pain, palpitations, claudication, cough, wheezing, shortness of breath, vomiting, abdominal pain, dysuria, hematuria, urinary retention, paralysis, weakness, numbness and tingling. Additional Comments: See HPI for pertinent positives and negatives. All other systems reviewed and negative. (Sheron Parr ., PA-C) Objective Vital Signs Date Time Temp Pulse Resp B/P (MAP) Pulse Ox O2 Delivery O2 Flow Rate FiO2 11/14/17 08:00 Room Air 11/14/17 07:50 36.5 74 18 105/62 (76) 94 Room Air 11/14/17 00:45 Room Air 11/13/17 23:26 36.8 76 20 100/62 (75) 92 Room Air 11/13/17 20:00 Room Air 11/13/17 16:20 Room Air 11/13/17 14:58 37.1 80 16 99/61 (74) 93 Room Air (Sheron Parr ., RHINA-C) Physical Exam Notes: General appearance: +Obese. Well-developed, well-nourished, no apparent distress Head: Normocephalic, atraumatic Eyes: Normal inspection, PERRL, EOMI ENT: Normal ENT inspection, hearing grossly normal, pharynx normal Neck: Supple, no JVD, trachea midline Respiratory/Chest: Lungs clear to auscultation, normal breath sounds, no respiratory distress Cardiovascular: Regular rate & rhythm, no gallop, no murmur Abdomen/GI: Normal bowel sounds, non-tender, soft Extremities/Musculoskeletal: +Circumferential erythema of lower legs bilaterally, L>R. Edema bilaterally, L>R. LLE exquisitely TTP. Erythema of LLE starts at ankle and extends up medial aspect of thigh. No calf tenderness, no pedal edema Neurological/Psych: Alert, normal mood/affect, oriented x 3 Skin: +Erythema as above. Psoriasis plaques left anterior navarro. Warm/dry (Sheron Parr ., RHINA-C) Laboratory Results Last 24 Hours Test 11/14/17 05:43 11/14/17 09:30 Sodium Level 138 mmol/L Potassium Level 3.9 mmol/L Chloride Level 108 mmol/L Carbon Dioxide Level 22 mmol/L Anion Gap 8.0 mmol/L Blood Urea Nitrogen 13 mg/dl Creatinine 1.25 mg/dl Est Creatinine Clear Calc Drug Dose 45.5 ml/min Estimated GFR () 53.4 Estimated GFR (Non- 46.1 BUN/Creatinine Ratio 10.4 Random Glucose 109 mg/dl Calcium Level 7.7 mg/dl White Blood Count 5.28 K/uL Red Blood Count 3.20 M/uL Hemoglobin 10.6 g/dL Hematocrit 32.4 % Mean Corpuscular Volume 101.3 fL Mean Corpuscular Hemoglobin 33.1 pg Mean Corpuscular Hemoglobin Concent 32.7 g/dl RDW Standard Deviation 51.6 fL RDW Coefficient of Variation 13.8 % Platelet Count 122 K/uL Mean Platelet Volume 9.9 fL (Sheron Parr ., PA-C) Assessment and Plan 62 y/o female with a history of COPD, h/o CVA, anxiety/depression, h/o non- Hodgkin's lymphoma, neuropathy, migraine and chronic back pain who presents with acute worsening of chronic cellulitis. Bilateral lower extremity cellulitis, L>R--ongoing. Still with 10/10 pain -Admit to med/surg -Infectious disease consulted, appreciate recs: Increase Rocephin to 2 gm, continue vancomycin. Length of IV antibiotics to be determined by clinical response and culture results -Continue Rocephin 2 gm IV qd and IV vanco. Day #3. -Blood cultures NGTD x 2 HTN--stable -Continue Toprol XL 50 mg PO qd COPD--stable, no acute exacerbation -Continue Qvar BID, albuterol prn H/o CVA--remote history, CVA in 1996 Anxiety, depression, insomnia--stable -Continue Seroquel 200 mg PO hs, Klonopin 1 mg PO hs H/o non-Hodgkin's lymphoma--last treatment 2013 H/o SCC right upper lobe--s/p radiation 2012 Neuropathy, chronic pain -Continue fentanyl patch 75 mcg, methocarbamol 750 mg PO BID, oxycodone ER 20 mg PO BID, oxycodone IR 5 mg PO q2h prn, and gabapentin 400 mg PO TID Migraine -Continue Topamax 100 mg PO hs H/o DVT, Factor V Leiden deficiency -Doppler ultrasound negative for DVT in LLE -Continue Lovenox 40 mg SC q24h CKD stage III--stable -Creatinine at baseline DVT prophylaxis -Enoxaparin 40 mg SC q24h Code Status -Level I, FULL RESUSCITATION STATUS Continued [facility] stay due to: multiple IV medications needed (Sheron Parr ., PA-C) PA Physician Supervision Note: I interviewed and examined the patient. Discussed with Sheron BALTAZAR and agree with findings and plan as documented in the note. Any exceptions or clarifications are listed here: None Patient is marked pain in her legs are erythematous and swollen she is on chronic pain medicine but feels her pain is worse than usual Vital signs show temp 36 5 pulse 74 respiration rate 18 BP 105/62 Her legs are with chronic stasis dermatitis is a small open area in the left lower leg there is an erythematous lymphangitic streak to the left upper thigh there is no fluctuance or fluid collection seen Patient with chronic venous stasis and recurrent infections is currently on vancomycin and Rocephin with infectious disease oversight likely will need follow-up and wound care clinic\ I personally increase her pain medications due to poor pain control we need to also observe her for problems with constipation due to her opiate medication Documented By: William Hussein (William Hussein M.D.)
[2017-11-14] MEDS: CEFTRIAXONE SOD INJ 2,000 MG in DEXTROSE 5% 50ML 50 ML IV SCH (14:33)
[2017-11-14] MEDS ORDERED: NURSING VERBAL MED ORDER ONE (14:45)
[2017-11-14 15:25] VITALS: BP 103/67; PULSE 79; TEMP 36.6; O2SAT 92
[2017-11-14] MEDS ORDERED: CEFTRIAXONE SOD INJ 2,000 MG in DEXTROSE 5% 50ML 50 ML IV SCH (19:00)
[2017-11-14] MEDS: CLONAZEPAM 1 MG TAB PO SCH (21:29)
[2017-11-14] MEDS: ACETAMINOPHEN 500 MG TAB PO SCH (21:29)
[2017-11-14] MEDS ORDERED: VANCOMYCIN TROUGH ONE (21:30)
[2017-11-14] MEDS: TOPIRAMATE 100 MG TAB PO SCH (21:30)
[2017-11-14] MEDS: QUETIAPINE FUMARATE 200 MG TAB PO SCH (21:30)
[2017-11-14 23:48] VITALS: BP 100/62; PULSE 77; TEMP 36.6; O2SAT 91
[2017-11-15] MEDS: OXYCODONE HCL IR 5 MG TAB (IMMEDIATE RELEASE) PO PRN ×8 (00:30→23:31)
[2017-11-15] MEDS: CHECK FENTANYL PATCH PLACEMENT SCH ×4 (00:31→23:34)
[2017-11-15 06:11] LABS: HEMATOCRIT 35.6 % (37-47); HEMOGLOBIN 11.7 g/dL (12.0-16.0); MEAN CELL VOLUME 101.4 fL (80-100); MEAN CORPUSCULAR HEMOGLOBIN 33.3 pg (25-34); MEAN CORPUSCULAR HGB CONC 32.9 g/dl (32-36); MEAN PLATELET VOLUME 9.7 fL (7.4-10.4); PLATELET COUNT 127 K/uL (130-400); RED CELL DISTRIBUTION WIDTH CV 13.9 % (11.5-14.5); RED CELL DISTRIBUTION WIDTH SD 51.4 fL (36.4-46.3); WHITE BLOOD COUNT 4.89 K/uL (4.8-10.8)
[2017-11-15 06:41] LABS: CALCIUM 8.5 mg/dl (8.5-10.1); CREATININE 1.37 mg/dl (0.60-1.20)
[2017-11-15 07:44] VITALS: BP 97/68; PULSE 77; TEMP 36.4; O2SAT 94
[2017-11-15] MEDS: OXYCODONE HCL 20 MG TABCR (OXYCONTIN) PO SCH ×2 (08:29→19:32)
[2017-11-15] MEDS: GABAPENTIN 400 MG CAP PO SCH ×3 (08:30→19:32)
[2017-11-15] MEDS: CETIRIZINE HCL 10 MG TAB PO SCH (08:30)
[2017-11-15] MEDS: VITAMIN B COMPLEX TAB PO SCH (08:30)
[2017-11-15] MEDS: METOPROLOL SUCC 50MG EXT REL TAB PO SCH (08:30)
[2017-11-15] MEDS: MAGNESIUM OXIDE 400 MG TAB PO SCH ×2 (08:30→19:31)
[2017-11-15] MEDS: MULTIVITAMIN TAB PO SCH (08:30)
[2017-11-15] MEDS: POTASSIUM CHLORIDE 20 MEQ TABCR PO SCH (08:30)
[2017-11-15] MEDS: LACTOBACILLUS ACIDOPHILUS (FLORANEX) TAB PO SCH (08:30)
[2017-11-15] MEDS: ACETAMINOPHEN 500 MG TAB PO SCH ×3 (08:31→19:33)
[2017-11-15] MEDS: CALCIUM 600MG + VIT D 400 IU TAB PO SCH (08:31)
[2017-11-15] MEDS: CHOLECALCIFEROL 1000 INTER.UNIT TAB PO SCH (08:31)
[2017-11-15] MEDS: METHOCARBAMOL 750 MG TAB PO SCH ×2 (08:31→19:32)
[2017-11-15] MEDS: DOCUSATE SODIUM 100 MG CAP PO SCH ×3 (08:31→19:31)
[2017-11-15] MEDS: BECLOMETHASONE DIP HFA 80 MCG 8.7G INH INH SCH ×2 (08:32→19:30)
[2017-11-15] MEDS: ENOXAPARIN 40 MG/0.4 ML SYR SQ SCH (08:32)
[2017-11-15] MEDS ORDERED: FENTANYL PATCH REMOVE & WASTE SCH (08:59)
[2017-11-15] MEDS ORDERED: FENTANYL 75 MCG/HR TDSY TD SCH (09:00)
--- NOTE | 2017-11-15 09:12 | Hospitalist Progress Note ---
Hospitalist Progress Note Date of Service Nov 15, 2017. (Sheron Parr ., PA-C) Subjective Pt evaluation today including: conversation w/ patient, physical exam, chart review, lab review, conversation w/ financial services consultant (spoke with Dr. Nielson), review of inpatient medication list Pain: 8/10 aching LLE pain PO Intake: Tolerating PO diet, improved appetite today Voiding: no voiding problems The patient states that her erythema is improved but her pain is about the same. She currently complains of an 8/10 aching pain in the LLE but states that she just received an oxycodone just prior to my arrival. She denies any pain in her RLE. She denies any nausea today and states that she was able to eat properly yesterday. She states she had a good bowel movement last night. The patient denies fevers, chills, sweats, chest pain, palpitations, claudication, cough, wheezing, shortness of breath, nausea, vomiting, abdominal pain, dysuria, hematuria, urinary retention, paralysis, weakness, numbness and tingling. Additional Comments: See HPI for pertinent positives and negatives. All other systems reviewed and negative. (Sheron Parr ., PA-C) Objective Vital Signs Date Time Temp Pulse Resp B/P (MAP) Pulse Ox O2 Delivery O2 Flow Rate FiO2 11/15/17 07:44 36.4 77 20 97/68 (78) 94 Room Air 11/15/17 00:45 Room Air 11/14/17 23:48 36.6 77 20 100/62 (75) 91 Room Air 11/14/17 16:00 Room Air 11/14/17 15:25 36.6 79 16 103/67 (79) 92 Room Air (Sheron Prar ., PA-C) Physical Exam Notes: General appearance: +Obese. Well-developed, well-nourished, no apparent distress Head: Normocephalic, atraumatic Eyes: Normal inspection, PERRL, EOMI ENT: Normal ENT inspection, hearing grossly normal, pharynx normal Neck: Supple, no JVD, trachea midline Respiratory/Chest: Lungs clear to auscultation, normal breath sounds, no respiratory distress Cardiovascular: Regular rate & rhythm, no gallop, no murmur Abdomen/GI: Normal bowel sounds, non-tender, soft Extremities/Musculoskeletal: +Circumferential erythema of lower legs bilaterally, L>R, improved. Erythema less bright red, now more dusky in appearance. Edema bilaterally, L>R. LLE TTP but less tender than yesterday. Erythema of LLE starts at ankle and extends up medial aspect of thigh. No calf tenderness, no pedal edema Neurological/Psych: Alert, normal mood/affect, oriented x 3 Skin: +Erythema as above. Skin dry/peeling left anterior navarro. Warm/dry (Sheron Parr ., PA-C) Laboratory Results Last 24 Hours Test 11/14/17 09:30 11/14/17 21:31 11/15/17 05:51 White Blood Count 5.28 K/uL 4.89 K/uL Red Blood Count 3.20 M/uL 3.51 M/uL Hemoglobin 10.6 g/dL 11.7 g/dL Hematocrit 32.4 % 35.6 % Mean Corpuscular Volume 101.3 fL 101.4 fL Mean Corpuscular Hemoglobin 33.1 pg 33.3 pg Mean Corpuscular Hemoglobin Concent 32.7 g/dl 32.9 g/dl RDW Standard Deviation 51.6 fL 51.4 fL RDW Coefficient of Variation 13.8 % 13.9 % Platelet Count 122 K/uL 127 K/uL Mean Platelet Volume 9.9 fL 9.7 fL Vancomycin Level Trough 15.8 mcg/ml Sodium Level 138 mmol/L Potassium Level 4.0 mmol/L Chloride Level 108 mmol/L Carbon Dioxide Level 25 mmol/L Anion Gap 5.0 mmol/L Blood Urea Nitrogen 16 mg/dl Creatinine 1.37 mg/dl Est Creatinine Clear Calc Drug Dose 41.2 ml/min Estimated GFR () 47.8 Estimated GFR (Non- 41.2 BUN/Creatinine Ratio 11.6 Random Glucose 113 mg/dl Calcium Level 8.5 mg/dl (Sheron Parr, PA-C) Assessment and Plan 62 y/o female with a history of COPD, h/o CVA, anxiety/depression, h/o non- Hodgkin's lymphoma, neuropathy, migraine and chronic back pain who presents with acute worsening of chronic cellulitis. Bilateral lower extremity cellulitis, L>R--improving. Erythema much improved, pain slightly improved. -Admit to med/surg -Infectious disease consulted, appreciate recs: Spoke with Dr. Nielson. Cellulitis is improved, would continue IV antibiotics through today and then transition to PO antibiotics. -Continue Rocephin 2 gm IV qd and IV vanco. Day #4. -Blood cultures NGTD x 2 -Tylenol 1000 mg PO TID scheduled -Increased oxycodone IR to 10 mg PO q2h prn pain HTN--stable -Continue Toprol XL 50 mg PO qd COPD--stable, no acute exacerbation -Continue Qvar BID, albuterol prn H/o CVA--remote history, CVA in 1996 Anxiety, depression, insomnia--stable -Continue Seroquel 200 mg PO hs, Klonopin 1 mg PO hs H/o non-Hodgkin's lymphoma--last treatment 2013 H/o SCC right upper lobe--s/p radiation 2012 Neuropathy, chronic pain -Continue fentanyl patch 75 mcg, methocarbamol 750 mg PO BID, oxycodone ER 20 mg PO BID, and gabapentin 400 mg PO TID -Oxycodone IR increased as above Migraine -Continue Topamax 100 mg PO hs H/o DVT, Factor V Leiden deficiency -Doppler ultrasound negative for DVT in LLE -Continue Lovenox 40 mg SC q24h CKD stage III--stable -Creatinine at baseline 1.2-1.4 DVT prophylaxis -Enoxaparin 40 mg SC q24h Code Status -Level I, FULL RESUSCITATION STATUS Continued [facility] stay due to: multiple IV medications needed (Sheron Parr ., PA-C) PA Physician Supervision Note: I interviewed and examined the patient. Discussed with Sheron Parr PAC and agree with findings and plan as documented in the note. Any exceptions or clarifications are listed here: None Patient has dramatic improvement of the erythema of her lower legs for pain control also improved although she does take chronic pain medication Her vital signs are stable today, her blood pressure remains slightly low Her lower extremities are less erythematous there still is a slight erythematous streak to the left middle thigh Continue antibiotics including vancomycin with infectious disease oversight and pain controlled escalating dosages of oral opiates Documented By: William Hussein (William Hussein M.D.)
--- NOTE | 2017-11-15 10:59 | Infectious Disease Progress Nt ---
Progress Note Date of Service Nov 15, 2017. Subjective Pt evaluation today including: conversation w/ patient, physical exam, chart review, lab review, review of studies, conversation w/ art sales consultant, review of inpatient medication list Patient feeling better today. Still with severe pain, currently 7 out 10 intensity, but improved from admission. Erythema much improved. No fever. Tolerating her antibiotic without apparent difficulty. All Other Systems: Reviewed and Negative Medications Current Inpatient Medications Medications (Trade) Dose Ordered Sig/Artie Route Start Time Stop Time Status Last Admin Dose Admin Acetaminophen (Tylenol Tab) 650 mg Q4H PRN PO 11/12/17 21:15 12/12/17 21:14 Al Hydrox/Mg Hydrox/Simethicone (Maalox Max Susp) 15 ml Q4H PRN PO 11/12/17 21:15 12/12/17 21:14 Magnesium Hydroxide (Milk Of Magnesia Susp) 30 ml Q6H PRN PO 11/12/17 21:15 12/12/17 21:14 Polyethylene (Miralax Powder Packet) 17 gm DAILY PRN PO 11/12/17 21:15 12/12/17 21:14 Ondansetron HCl (Zofran Inj) 4 mg Q6H PRN IV 11/12/17 21:15 12/12/17 21:14 Miscellaneous Information (Consult) 1 ea UD PRN N/A 11/12/17 23:45 12/12/17 23:44 Beclomethasone Dipropionate (Qvar 80 Mcg Hfa Inhaler) 2 puffs BID INH 11/13/17 08:00 12/13/17 07:59 11/15/17 08:32 2 PUFFS Butorphanol Tartrate (Butorphanol Tartrate [place]) 2 sprays DAILY PRN NA 11/12/17 23:45 12/12/17 23:44 Cetirizine HCl (zyrTEC TAB) 10 mg QAM PO 11/13/17 08:00 12/13/17 07:59 11/15/17 08:30 10 MG Clonazepam (Klonopin Tab) 1 mg HS PO 11/13/17 21:00 12/13/17 20:59 11/14/17 21:29 1 MG Docusate Sodium (coLACE CAP) 100 mg TID PO 11/13/17 08:00 12/13/17 07:59 11/15/17 08:31 100 MG Cholecalciferol (Vitamin D Tab) 1,000 inter.unit DAILY PO 11/13/17 08:00 12/13/17 07:59 11/15/17 08:31 1,000 INTER.UNIT Folic Acid (Folvite Tab) 1 mg QAM PO 11/13/17 08:00 12/13/17 07:59 11/15/17 08:30 1 MG Gabapentin (Neurontin Cap) 400 mg TID PO 11/13/17 08:00 12/13/17 07:59 11/15/17 08:30 400 MG Methocarbamol (Robaxin Tab) 750 mg BID PO 11/13/17 08:00 12/13/17 07:59 11/15/17 08:31 750 MG Metoprolol Succinate (Toprol Xl Tab) 50 mg QAM PO 11/13/17 08:00 12/13/17 07:59 11/14/17 07:39 50 MG Multivitamins (Multivitamin Tab) 1 tab QAM PO 11/13/17 08:00 12/13/17 07:59 11/15/17 08:30 1 TAB Oxycodone HCl (Oxycontin Tab) 20 mg BID PO 11/13/17 08:00 11/27/17 07:59 11/15/17 08:29 20 MG Potassium Chloride (Klor-Con Tab) 20 meq QAM PO 11/13/17 08:00 12/13/17 07:59 11/15/17 08:30 20 MEQ Quetiapine Fumarate (seroQUEL TAB) 200 mg HS PO 11/13/17 21:00 12/13/17 20:59 11/14/17 21:30 200 MG Topiramate (Topamax Tab) 100 mg HS PO 11/13/17 21:00 12/13/17 20:59 11/14/17 21:30 100 MG Triamcinolone Acetonide (Kenalog 0.1% Cream) 1 appln BID PRN EXT 11/12/17 23:45 12/12/17 23:44 Albuterol (Ventolin Hfa Inhaler) 2 puffs Q4H PRN INH 11/12/17 23:45 12/12/17 23:44 Vitamin B Complex (Vitamin B Complex) 1 tab QAM PO 11/13/17 08:00 12/13/17 07:59 11/15/17 08:30 1 TAB Calcium/Vitamin D (Caltrate Plus Tab) 1 tab QAM PO 11/13/17 08:00 12/13/17 07:59 11/15/17 08:31 1 TAB Magnesium Oxide (Mag-Ox Tab) 400 mg BID PO 11/13/17 08:00 12/13/17 07:59 11/15/17 08:30 400 MG Lactobacillus Acidophilus (Floranex Tab) 1 tab QAM PO 11/13/17 08:00 12/13/17 07:59 11/15/17 08:30 1 TAB Fentanyl (Duragesic Patch) 75 mcg Q3D TD 11/15/17 09:00 11/29/17 08:59 11/15/17 08:29 75 MCG Miscellaneous (Fentanyl Patch Remove & Waste) 1 ea Q3D N/A 11/15/17 08:59 12/15/17 08:58 11/15/17 08:40 1 EA Miscellaneous Information (Check Fentanyl Patch Placement) 1 ea QS N/A 11/13/17 08:00 12/13/17 07:59 11/15/17 08:00 1 EA Enoxaparin Sodium (Lovenox Inj) 40 mg QAM SQ 11/13/17 08:00 12/13/17 07:59 11/15/17 08:32 40 MG Vancomycin HCl 1250 mg/Sodium Chloride 275 ml @ 125 mls/hr Q18H IV 11/13/17 10:00 11/23/17 09:59 11/14/17 22:09 125 MLS/HR Ceftriaxone Sodium 2000 mg/ Dextrose 70 ml @ 100 mls/hr Q24H IV 11/14/17 14:00 11/24/17 13:59 11/14/17 14:33 100 MLS/HR Oxycodone HCl (Roxicodone Immediate Rel Tab) 10 mg Q2H PRN PO 11/14/17 15:45 11/26/17 23:44 11/15/17 09:52 10 MG Acetaminophen (Tylenol Tab) 1,000 mg TID PO 11/14/17 20:00 12/14/17 19:59 11/15/17 08:31 1,000 MG Objective Vital Signs Date Time Temp Pulse Resp B/P (MAP) Pulse Ox O2 Delivery O2 Flow Rate FiO2 11/15/17 10:23 Room Air 11/15/17 07:44 36.4 77 20 97/68 (78) 94 Room Air 11/15/17 00:45 Room Air 11/14/17 23:48 36.6 77 20 100/62 (75) 91 Room Air 11/14/17 16:00 Room Air 11/14/17 15:25 36.6 79 16 103/67 (79) 92 Room Air Physical Exam General Appearance: WD/WN, no apparent distress Eyes: normal inspection, EOMI, sclerae normal ENT: normal ENT inspection, pharynx normal Neck: supple, no adenopathy, trachea midline Respiratory/Chest: chest non-tender, lungs clear, normal breath sounds, no respiratory distress Cardiovascular: regular rate, rhythm, no gallop, no JVD Abdomen: normal bowel sounds, non tender, soft, no organomegaly Extremities: non-tender, no calf tenderness Neurologic/Psychiatric: alert, oriented x 3 Skin: normal color, no rash Lymphatic: no adenopathy Laboratory Results Last 24 Hours Test 11/14/17 21:31 11/15/17 05:51 Vancomycin Level Trough 15.8 mcg/ml White Blood Count 4.89 K/uL Red Blood Count 3.51 M/uL Hemoglobin 11.7 g/dL Hematocrit 35.6 % Mean Corpuscular Volume 101.4 fL Mean Corpuscular Hemoglobin 33.3 pg Mean Corpuscular Hemoglobin Concent 32.9 g/dl RDW Standard Deviation 51.4 fL RDW Coefficient of Variation 13.9 % Platelet Count 127 K/uL Mean Platelet Volume 9.7 fL Sodium Level 138 mmol/L Potassium Level 4.0 mmol/L Chloride Level 108 mmol/L Carbon Dioxide Level 25 mmol/L Anion Gap 5.0 mmol/L Blood Urea Nitrogen 16 mg/dl Creatinine 1.37 mg/dl Est Creatinine Clear Calc Drug Dose 41.2 ml/min Estimated GFR () 47.8 Estimated GFR (Non- 41.2 BUN/Creatinine Ratio 11.6 Random Glucose 113 mg/dl Calcium Level 8.5 mg/dl Assessment and Plan 62-year-old female with recurrent lower extremity cellulitis in the setting of chronic venous stasis disease. Appears to be responding well to current antibiotic therapy, would recommend at least 24 more hours of IV antibiotics before consideration of transition to oral therapy. Will follow.
--- NOTE | 2017-11-15 13:30 | Pharmacy Progress Note ---
Pharmacy Abx Dose Short Note Date of Service Nov 15, 2017. Assessment & Plan Assessment 62 year old female receiving vancomycin/Rocephin for treatment of cellulitis Day # 3 of antimicrobial therapy. Per provider, cellulitis is much improved. Plan Vancomycin * Trough level of 15.8 mcg/mL is therapeutic. * Continue dose of 1250 mg IV every 18 hours * Goal trough level for cellulitis : ~15 mcg/mL * Re-order level if continues on for > 1 week or kidney function is altered Pharmacy will continue to follow and will adjust dose/frequency as necessary. Thank you.
[2017-11-15] MEDS: CEFTRIAXONE SOD INJ 2,000 MG in DEXTROSE 5% 50ML 50 ML IV SCH (14:22)
[2017-11-15 14:48] VITALS: BP 104/68; PULSE 72; TEMP 36.5; O2SAT 93
[2017-11-15] MEDS: VANCOMYCIN INJ 1,250 MG in SODIUM CHLORIDE 0.9% 250ML 250 ML IV SCH (15:45)
[2017-11-15 23:02] VITALS: BP 114/53; PULSE 68; TEMP 36.5; O2SAT 97
[2017-11-15] MEDS: TOPIRAMATE 100 MG TAB PO SCH (23:31)
[2017-11-15] MEDS: CLONAZEPAM 1 MG TAB PO SCH (23:31)
[2017-11-15] MEDS: QUETIAPINE FUMARATE 200 MG TAB PO SCH (23:31)
[2017-11-16 03:47] VITALS: BP 96/63; PULSE 70; TEMP 36.5; O2SAT 97
[2017-11-16 06:06] LABS: HEMATOCRIT 34.1 % (37-47); HEMOGLOBIN 11.1 g/dL (12.0-16.0); MEAN CELL VOLUME 101.5 fL (80-100); MEAN CORPUSCULAR HGB CONC 32.6 g/dl (32-36); MEAN PLATELET VOLUME 9.8 fL (7.4-10.4); PLATELET COUNT 116 K/uL (130-400); RED CELL DISTRIBUTION WIDTH SD 51.8 fL (36.4-46.3); WHITE BLOOD COUNT 4.45 K/uL (4.8-10.8)
[2017-11-16 06:50] LABS: CREATININE 1.4 mg/dl (0.60-1.20)
[2017-11-16] MEDS: CHECK FENTANYL PATCH PLACEMENT SCH (07:33)
[2017-11-16] MEDS: BECLOMETHASONE DIP HFA 80 MCG 8.7G INH INH SCH (07:34)
[2017-11-16] MEDS: CALCIUM 600MG + VIT D 400 IU TAB PO SCH (07:34)
[2017-11-16] MEDS: CETIRIZINE HCL 10 MG TAB PO SCH (07:35)
[2017-11-16] MEDS: CHOLECALCIFEROL 1000 INTER.UNIT TAB PO SCH (07:35)
[2017-11-16] MEDS: POTASSIUM CHLORIDE 20 MEQ TABCR PO SCH (07:37)
[2017-11-16] MEDS: METOPROLOL SUCC 50MG EXT REL TAB PO SCH (07:39)
[2017-11-16] MEDS: GABAPENTIN 400 MG CAP PO SCH ×2 (07:39→14:48)
[2017-11-16] MEDS: MAGNESIUM OXIDE 400 MG TAB PO SCH (07:40)
[2017-11-16] MEDS: MULTIVITAMIN TAB PO SCH (07:40)
[2017-11-16] MEDS: LACTOBACILLUS ACIDOPHILUS (FLORANEX) TAB PO SCH (07:41)
[2017-11-16] MEDS: DOCUSATE SODIUM 100 MG CAP PO SCH ×2 (07:41→14:48)
[2017-11-16] MEDS: METHOCARBAMOL 750 MG TAB PO SCH (07:42)
[2017-11-16 07:43] VITALS: BP 104/68; PULSE 79; TEMP 36.3; O2SAT 99
[2017-11-16] MEDS: VITAMIN B COMPLEX TAB PO SCH (07:43)
[2017-11-16] MEDS: ENOXAPARIN 40 MG/0.4 ML SYR SQ SCH (07:44)
[2017-11-16] MEDS: OXYCODONE HCL 20 MG TABCR (OXYCONTIN) PO SCH (07:49)
[2017-11-16] MEDS: OXYCODONE HCL IR 5 MG TAB (IMMEDIATE RELEASE) PO PRN ×4 (07:59→16:00)
[2017-11-16] MEDS: ACETAMINOPHEN 500 MG TAB PO SCH ×2 (08:00→14:49)
[2017-11-16] MEDS: VANCOMYCIN INJ 1,250 MG in SODIUM CHLORIDE 0.9% 250ML 250 ML IV SCH (10:53)
[2017-11-16 11:23] VITALS: BP 104/67; PULSE 75; TEMP 36.5; O2SAT 94
[2017-11-16] MEDS: CEFTRIAXONE SOD INJ 2,000 MG in DEXTROSE 5% 50ML 50 ML IV SCH (14:48)
[2017-11-16] MEDS ORDERED: DOXY1TAB6 PO (14:53)
[2017-11-16] MEDS ORDERED: CEPH-571 PO (14:53)
[2017-11-16] MEDS ORDERED: ACET-24 PO (14:53)
--- NOTE | 2017-11-16 14:59 | Discharge Instructions ---
Discharge Instructions Date of Service Nov 16, 2017. Admission Reason for Admission: Cellulitis Of Both Lower Extremities Discharge Discharge Diagnosis / Problem: Cellulitis Discharge Goals Goal(s): Decrease discomfort, Improve function, Diagnostic testing, Therapeutic intervention Activity Recommendations Activity Limitations: resume your previous activity . Instructions / Follow-Up Instructions / Follow-Up You were admitted to the hospital with acute worsening of your chronic/ recurrent lower extremity cellulitis. You were initially treated with IV antibiotics, which did result in significant improvement. Dr. Nielson of infectious disease has also been following along with your case, and you are now ready to be changed to oral antibiotics. Medications: *Please take doxycycline 100 mg by mouth twice a day for 2 weeks or until instructed otherwise by infectious disease. You will follow up with Dr. Nielson, and he may need to extend this course. *Please take Keflex 500 mg by mouth twice a day for 2 weeks or until instructed otherwise by infectious disease. *STOP Amoxil. *You may take Tylenol 1000 mg by mouth three times a day scheduled for pain, in addition to your home narcotics. Follow up: *You have been scheduled to follow up at your primary care provider's office with Brenda Amaro PA-C on November 20 at 11:30 am. *You have also been scheduled to follow up with Dr. Nielson of infectious disease on November 28 at 1:15 pm. Please seek medical attention if you experience fevers, chills, sweats, dizziness/lightheadedness, loss of consciousness, chest pain, shortness of breath, nausea, vomiting, numbness or tingling. Current Hospital Diet Patient's current hospital diet: Gluten Free Diet Discharge Diet Recommended Diet: AHA Diet (Heart Healthy), Gluten Free Diet Pending Studies Studies pending at discharge: no Laboratory Results Hemoglobin A1c Test 09/05/17 14:56 Range/Units Estimated Average Glucose 126 mg/dl Hemoglobin A1c 6.0 H 4.5-5.6 % Medical Emergencies . Who to Call and When: Medical Emergencies: If at any time you feel your situation is an emergency, please call 911 immediately. . Non-Emergent Contact Non-Emergency issues call your: Primary Care Provider, Specialist (infectious disease) Call Non-Emergent contact if: you have a fever, your pain is not controlled, your pain is worsening, your pain is unusual for you, your pain is concerning you, you have any medication questions . Past History Medical & Surgical History: (1) Cellulitis of left leg (2) Cellulitis of both lower extremities . "Provider Documentation" section prepared by Sheron Parr. . VTE Core Measure Inpt VTE Proph given/why not?: Enoxaparin (Lovenox)SQ [place] Drug Monitoring Program Search Results: patient reviewed within database, no issues identified
[2017-11-16 15:25] VITALS: BP 104/67; PULSE 75; TEMP 36.5; O2SAT 94
--- NOTE | 2017-11-16 15:41 | Discharge Summary ---
Discharge Summary Date of Service Nov 16, 2017. Discharge Summary Admission Date: Nov 12, 2017 at 21:18 Discharge Date: Nov 16, 2017 Discharge Disposition: Home Principal Diagnosis: Cellulitis Problems/Secondary Diagnoses: (1) Asthma Status: Chronic (2) ASTHMA, UNSPECIFIED Status: Chronic (3) ASTHMA, UNSPECIFIED Status: Chronic (4) Bronchitis Status: Chronic (5) Cellulitis Status: Chronic (6) Cellulitis Status: Chronic (7) CHRONIC KIDNEY DISEASE, STAGE III (MODERATE) Status: Chronic (8) CHRONIC KIDNEY DISEASE, STAGE III (MODERATE) Status: Chronic (9) Emphysema Status: Chronic (10) Frequent falls Status: Chronic (11) Frequent falls Status: Chronic (12) History of malignant lymphoma Status: Chronic (13) HYDRONEPHROSIS Status: Chronic (14) HYDRONEPHROSIS Status: Chronic (15) Hypertension Nos Status: Chronic (16) Hypertension Nos Status: Chronic (17) HYPTNSV CHR KID DIS, UNSPEC, 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 Edema. TECHNIQUE: Venous Doppler COMPARISON STUDY: None FINDINGS: Normal study IMPRESSION: Normal study Consultations: Infectious disease Medication Reconciliation New Medications: Cephalexin (Keflex) 500 Mg Cap 1 CAP PO BID for 14 Days, #28 CAP Doxycycline Hyclate (Doxycycline Hyclate) 100 Mg Tab 1 TAB PO BID for 14 Days, #28 TAB Acetaminophen (Sb Non-Aspirin Extra Stre) 500 Mg Tab 1000 MG PO TID for 7 Days, #42 TAB Continued Medications: Albuterol Sulfate (Proair Respiclick) 108 Mcg/Act Aer 2 PUFFS INH Q4H PRN for SOB/Wheezing B-Complex Vitamins (Vitamin B Complex) 1 Tab Tab 1 TAB PO QAM Beclomethasone Dip (Qvar) 80 Mcg/Act Aer 2 PUFFS INH BID Butorphanol Tartrate (Butorphanol Tartrate) 25 Sprays/2.5 Ml [place] 1 SPRAY NA DAILY PRN for Migraine Calcium (Calcium) 600 Mg Tab 1 TAB PO QAM Cetirizine (Zyrtec) 10 Mg Tab 10 MG PO QAM, TAB Clonazepam (Klonopin) 1 Mg Tab 1 MG PO HS, TAB Coenzyme Q10 (Ubidecarenone) (Co Q10) 50 Mg Cap 200 MG PO QAM, CAP Denosumab (Prolia) 60 Mg/1 Ml Inj 60 MG INJ Q6 MONTHS Docusate Sodium (Colace) 100 Mg Cap 1 CAP PO TID Enoxaparin (Lovenox) 40 Mg/0.4 Ml Inj 40 MG SQ QAM Ergocalciferol (Vitamin D 61527 Unit) 50,000 Unit Cap 1 TAB PO WK, CAP GIVE ON SUNDAY Fentanyl (Fentanyl) 75 Mcg/Hr Dis 1 DOSE TOP Q72H Folic Acid (Folvite) 1 Mg Tab 1 MG PO QAM, TAB Gabapentin (Gabapentin) 400 Mg Cap 400 MG PO TID Magnesium Oxide (Magnesium) 400 Mg Tab 400 MG PO BID Methocarbamol (Robaxin) 750 Mg Tab 750 MG PO BID Metoprolol Succinate (Toprol Xl) 50 Mg Tab 50 MG PO QAM Multiple Vitamin (Multivitamin) 1 Tab Tab 1 TAB PO QAM, TAB Oxycodone Hcl (Oxycontin) 20 Mg Tab 1 TAB PO BID Oxycodone Immediate Rel Tab (Roxicodone Ir) 5 Mg Tab 5 MG PO Q2H PRN for Severe Pain, TAB moderate pain Potassium Chloride Microencaps (Potassium Chloride Er) 20 Meq Tab 20 MEQ PO QAM Probiotic Product (Florajen3) 1 Cap Cap 1 CAP PO QAM Quetiapine Fumarate (Seroquel) 200 Mg Tab 200 MG PO HS, TAB Topiramate (Topamax) 100 Mg Tab 100 MG PO HS Triamcinolone Acet (Aristocort 0.1%) 90 Appln/30 Gm Cr 1 APPLN TOP BID PRN for Psoriasis Vitamin E (Vitamin E 400 Iu) 400 Unit Cap 400 INTER.UNIT PO QAM Discontinued Medications: Amoxicillin (Amoxicillin) 875 Mg Tab 1 TAB PO BID Discharge Exam Patient reports feeling the same. Her pain remains unchanged. She states that her RLE has returned to baseline. She states that her LLE erythema is improved from admission. She does complain of some itching on the dorsal aspect of her feet bilaterally. The patient denies fevers, chills, sweats, chest pain, palpitations, claudication, cough, wheezing, shortness of breath, nausea, vomiting, abdominal pain, dysuria, hematuria, urinary retention, paralysis, weakness, numbness and tingling. Constitutional: No fever, No chills, No sweats Eyes: No worsening of vision, No eye pain, No diplopia ENT: No hearing loss, No nasal symptoms, No trouble swallowing Respiratory: No cough, No wheezing, No shortness of breath Cardiovascular: No chest pain, No claudication, No palpitations Abdomen: No pain, No nausea, No vomiting Musculoskeletal: No joint pain, No muscle pain, No swelling Genitourinary - Female: No dysuria, No urinary retention, No hematuria Neurologic: No paralysis, No weakness, No numbness/tingling Integumentary: +Erythema LLE improving. No rash, No itch General appearance: +Obese. Well-developed, well-nourished, no apparent distress Head: Normocephalic, atraumatic Eyes: Normal inspection, PERRL, EOMI ENT: Normal ENT inspection, hearing grossly normal, pharynx normal Neck: Supple, no JVD, trachea midline Respiratory/Chest: Lungs clear to auscultation, normal breath sounds, no respiratory distress Cardiovascular: Regular rate & rhythm, no gallop, no murmur Abdomen/GI: Normal bowel sounds, non-tender, soft Extremities/Musculoskeletal: +Circumferential erythema of lower legs bilaterally, L>R, improved. Erythema less bright red, now more dusky in appearance. Edema bilaterally, L>R. LLE TTP but less tender than yesterday. Erythema of LLE starts at ankle and extends up medial aspect of thigh. Trace pitting edema. No calf tenderness Neurological/Psych: Alert, normal mood/affect, oriented x 3 Skin: +Erythema as above. Skin dry/peeling left anterior navarro. Warm/dry Hospital Course 62 y/o female with a history of COPD, h/o CVA, anxiety/depression, h/o non- Hodgkin's lymphoma, neuropathy, migraine and chronic back pain who presents with acute worsening of chronic cellulitis. Bilateral lower extremity cellulitis, L>R--improving. Erythema much improved, pain slightly improved. -Admit to med/surg -Infectious disease consulted, appreciate recs: Spoke with Dr. Nielson. Can transition to PO doxycycline and Keflex x 2 weeks and will see in office as outpatient for [facility] suppressive therapy. -Continue Rocephin 2 gm IV qd and IV vanco. Day #5. -D/C with doxy 100 mg PO BID and Keflex 500 mg PO BID x 2 weeks -Blood cultures NGTD x 2 -Tylenol 1000 mg PO TID scheduled -Increased oxycodone IR to 10 mg PO q2h prn pain HTN--stable -Continue Toprol XL 50 mg PO qd COPD--stable, no acute exacerbation -Continue Qvar BID, albuterol prn H/o CVA--remote history, CVA in 1996 Anxiety, depression, insomnia--stable -Continue Seroquel 200 mg PO hs, Klonopin 1 mg PO hs H/o non-Hodgkin's lymphoma--last treatment 2013 H/o SCC right upper lobe--s/p radiation 2012 Neuropathy, chronic pain -Continue fentanyl patch 75 mcg, methocarbamol 750 mg PO BID, oxycodone ER 20 mg PO BID, and gabapentin 400 mg PO TID -Oxycodone IR increased as above Migraine -Continue Topamax 100 mg PO hs H/o DVT, Factor V Leiden deficiency -Doppler ultrasound negative for DVT in LLE -Continue Lovenox 40 mg SC q24h CKD stage III--stable -Creatinine at baseline 1.2-1.4 DVT prophylaxis -Enoxaparin 40 mg SC q24h Code Status -Level I, FULL RESUSCITATION STATUS PA Physician Supervision Note: I interviewed and examined the patient. Discussed with Sheron BALTAZAR and agree with findings and plan as documented in the note. Any exceptions or clarifications are listed here: None Patient is a good improvement of her leg discomfort and erythema Dr. Nielson has recommended Keflex and Bactrim patient's family to take her home and will try to enroll her in outpatient wound clinic for continued attention to her chronic venous stasis dermatitis and cellulitis Vital signs show temperature 63 pulse 79 respiration 18 BP 104/68 her legs are with receding erythema the left leg is still slightly worse than the right there is also small open area to the distal left leg Attempts at outpatient treatment will be undertaken if need be she doesn't a poor and arrangements for IV antibiotics at home could be arranged as an outpatient Documented By: William Hussein Total Time Spent: Greater than 30 minutes This includes examination of the patient, discharge planning, medication reconciliation, and communication with other providers. Discharge Instructions Please refer to the electronic Patient Visit Report (Discharge Instructions) for additional information. Follow-Up Scheduled to f/u with infectious disease in 2 weeks Additional Copies To Brenda Amaro PA
[2017-11-17] MEDS ORDERED: VANCOMYCIN TROUGH ONE (20:30)
== END 2017-11-16 17:22 | disposition home or self-care (01) | DRG 603 ==
LOC: C.EDA 18:57 → C.4E 21:18 → ENRESERV 21:48
PROVIDERS: ADMIT Hospitalist; ATTEND Internal Medicine
DX: L03.116 Cellulitis of left lower limb (principal); L03.115 Cellulitis of right lower limb; I87.8 Other specified disorders of veins; G62.9 Polyneuropathy, unspecified; N18.3 Chronic kidney disease, stage 3 (moderate); I12.9 Hypertensive chronic kidney disease with stage 1 through stage 4 chronic kidney disease, or unspecified chronic kidney disease; J44.9 Chronic obstructive pulmonary disease, unspecified; E83.42 Hypomagnesemia; I25.10 Atherosclerotic heart disease of native coronary artery without angina pectoris; F32.9 Major depressive disorder, single episode, unspecified; F41.9 Anxiety disorder, unspecified; G89.29 Other chronic pain; J45.909 Unspecified asthma, uncomplicated; G47.00 Insomnia, unspecified; Z79.01 Long term (current) use of anticoagulants; Z79.2 Long term (current) use of antibiotics; Z79.899 Other long term (current) drug therapy; Z86.73 Personal history of transient ischemic attack (TIA), and cerebral infarction without residual deficits; Z87.891 Personal history of nicotine dependence; Z88.1 Allergy status to other antibiotic agents; Z88.2 Allergy status to sulfonamides; Z91.041 Radiographic dye allergy status; Z86.718 Personal history of other venous thrombosis and embolism; Z92.3 Personal history of irradiation

== ENCOUNTER 2018-02-12 19:39 | Inpatient (IN) | payer BC, OTHER ==
[~2018-02-12] VITALS: Ht 154.9 cm; Wt 84.6 kg
[~2018-02-12 19:39] MED LIST changes: -AMX875 PO; +CEPH500C2 PO; -CIPR1TAB11 PO; -COEN1CAP28 PO; +DOXY-300 PO; -FOLI1TAB8 PO; -MULTTAB58 PO; +OXGN; -QUET1TAB10 PO; -TRMCR130WC TOP; +VITA1TAB4 PO; -VITA400C3 PO
[2018-02-12] MEDS ORDERED: ACETAMINOPHEN 500 MG TAB PO STA (20:57)
[2018-02-12] MEDS ORDERED: ONDANSETRON INJ 2 MG/ML 2 ML VIAL IV STA (20:57)
[2018-02-12] MEDS ORDERED: SODIUM CHLORIDE 0.9% 1000ML 1,000 ML IV STA (20:57)
--- NOTE | 2018-02-12 20:57 | EMERGENCY ROOM VISIT NOTE ---
History Report prepared by Baldev: Fidelia Lopez Under the Supervision of: Dr. Oracio Santos M.D. First contact with patient: 20:31 Chief Complaint: VOMITING Stated Complaint: NAUSEA, DIARRHEA, VOMITING Nursing Triage Summary: pt c/o n/v/d that began today. states she is on maintence keflex and doxycycline for cellulitis in her legs, states "dr. mcknight put me on maintence, i've been on it for awhile." pt alert and oriented x4, ambulatory independently, breathing WNL. History of Present Illness The patient is a 63 year old female who presents to the Emergency Room with complaints of worsening vomiting starting this afternoon. The patient states that she has nausea and diarrhea as well. She reports that she called her PCP and they said to come to the ED for fluids. She notes that she usually only wears O2 at night. The patient denies any abdominal surgery and abdominal pain. The patient notes that she takes Doxycycline, Keflex, and Lovenox. Source of History: patient Onset: this afternoon Position: other (global) Quality: other (vomiting) Timing: worsening Associated Symptoms: + nausea, + diarrhea, No abdominal pain Review of Systems See HPI for pertinent positives & negatives. A total of 10 systems reviewed and were otherwise negative. Past Medical & Surgical Medical Problems: (1) Acute blood loss anemia (2) Anemia (3) Asthma (4) Asthma (5) ASTHMA, UNSPECIFIED (6) ASTHMA, UNSPECIFIED (7) ASTHMA, UNSPECIFIED (8) Bronchitis (9) Bronchitis (10) Carcinoma of upper lobe, bronchus or lung (11) Carcinoma of upper lobe, bronchus or lung (12) Carcinoma of upper lobe, bronchus or lung (13) Cellulitis (14) Cellulitis (15) CHRONIC KIDNEY DISEASE, STAGE III (MODERATE) (16) CHRONIC KIDNEY DISEASE, STAGE III (MODERATE) (17) CHRONIC KIDNEY DISEASE, STAGE III (MODERATE) (18) Contusion of left leg (19) Diarrhea (20) DVT (deep venous thrombosis) (21) DVT (deep venous thrombosis) (22) Emphysema (23) Emphysema (24) Failure of outpatient treatment (25) Fall (26) Frequent falls (27) Frequent falls (28) Frequent falls (29) History of malignant lymphoma (30) History of malignant lymphoma (31) History of malignant lymphoma (32) HYDRONEPHROSIS (33) HYDRONEPHROSIS (34) HYDRONEPHROSIS (35) Hypertension Nos (36) Hypertension Nos (37) Hypertension Nos (38) HYPTNSV CHR KID DIS, UNSPEC, 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 (39) HYPTNSV CHR KID DIS, UNSPEC, 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 (40) HYPTNSV CHR KID DIS, UNSPEC, 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 (41) Lung cancer (42) Lung cancer (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) MRSA (methicillin resistant Staphylococcus aureus) (45) MRSA (methicillin resistant Staphylococcus aureus) (46) Orthostatic hypotension (47) Pancytopenia (48) Pancytopenia (49) Pancytopenia (50) Pneumonia (51) Pneumonia (52) Rash and nonspecific skin eruption (53) Stroke (54) Thrombocytopenia (55) Urinary tract infection Surgical Problems: (1) History of tubal ligation (2) History of tubal ligation (3) History of ureter stent (4) History of ureter stent (5) Tubal Ligation Status (6) Tubal Ligation Status (7) Tubal Ligation Status Social History Problems: (1) Hepatitis C (2) Hepatitis C (3) Hepatitis C Family History Cancer Diabetes mellitus Heart disease Hypertension Social History Smoking Status: Never Smoker Alcohol Use: none Drug Use: none Marital Status: Housing Status: senior living Occupation Status: retired, disabled Current/Historical Medications Scheduled B-Complex Vitamins (Vitamin B Complex), 1 TAB PO QAM Beclomethasone Dip (Qvar), 2 PUFFS INH BID Calcium (Calcium), 1 TAB PO QAM Cephalexin Monohydrate (Keflex), 500 MG PO QAM Cetirizine (Zyrtec), 10 MG PO QAM Clonazepam (Klonopin), 1 MG PO HS Coenzyme Q10 (Ubidecarenone) (Co Q10), 200 MG PO QAM Denosumab (Prolia), 60 MG INJ Q6 MONTHS Docusate Sodium (Colace), 1 CAP PO TID Doxycycline (Monohydrate) (Doxycycline), 100 MG PO QDL Enoxaparin (Lovenox), 40 MG SQ QAM Ergocalciferol (Vitamin D 16030 Unit), 1 TAB PO WK Fentanyl (Fentanyl), 75 MCG TOP Q72H Folic Acid (Folvite), 1 MG PO QAM Gabapentin (Gabapentin), 400 MG PO TID Home O2 Therapy (Oxygen), 2 LITER NA HS Magnesium Oxide (Magnesium), 400 MG PO BID Methocarbamol (Robaxin), 750 MG PO BID Metoprolol Succinate (Toprol Xl), 50 MG PO QAM Multiple Vitamin (Multivitamin), 1 TAB PO QAM Oxycodone Hcl (Oxycontin), 1 TAB PO BID Potassium Chloride Microencaps (Potassium Chloride Er), 20 MEQ PO QAM Probiotic Product (Florajen3), 1 CAP PO QAM Quetiapine Fumarate (Seroquel), 200 MG PO HS Topiramate (Topamax), 100 MG PO HS Vitamin E (Vitamin E), 1 TAB PO QAM Scheduled PRN Albuterol Sulfate (Proair Respiclick), 2 PUFFS INH Q4H PRN for SOB/Wheezing Butorphanol Tartrate (Butorphanol Tartrate), 1 SPRAY NA DAILY PRN for Migraine Oxycodone Immediate Rel Tab (Roxicodone Ir), 5 MG PO Q2H PRN for Severe Pain Triamcinolone Acet (Aristocort 0.1%), 1 APPLN TOP BID PRN for Psoriasis Allergies Coded Allergies: Levofloxacin (Verified Allergy, Intermediate, numbness/weakness, 02/06/18) Pt is OK to receive CIPRO Allopurinol (Verified Allergy, Unknown, rash, 02/06/18) BEE STING (Verified Allergy, Unknown, SWELLING AT SITE-SOB AT TIMES, ) Iodinated Diagnostic Agents (Verified Allergy, Unknown, Hives, 02/06/18) Iodine (Verified Allergy, Unknown, HIVES, 02/06/18) Pregabalin (Verified Allergy, Unknown, fever?/?rash, 02/06/18) Shushan (Verified Allergy, Unknown, HIVES, 02/06/18) Sulfa Antibiotics (Verified Allergy, Unknown, RASH/HIVES, 02/06/18) Venlafaxine (Verified Allergy, Unknown, UNKNOWN, 02/06/18) Gluten (Verified Adverse Reaction, Severe, Celiac Dz = GI symptoms, ) Adhesives (Verified Adverse Reaction, Unknown, red torn skin, 02/06/18) BAND AIDS OKAY - [place] OKAY - PAPER TAPE OKAY Propoxyphene (Verified Adverse Reaction, Unknown, [employer]OP[employer]GER side effects, ) Physical Exam Vital Signs Date Time Temp Pulse Resp B/P (MAP) Pulse Ox O2 Delivery O2 Flow Rate FiO2 02/13/18 00:56 92 20 113/68 94 Nasal Cannula 2.0 02/12/18 23:48 104 20 110/59 95 Room Air 02/12/18 22:41 110 22 101/46 94 Nasal Cannula 2.0 02/12/18 22:10 108 20 100/54 100 Nebulizer 02/12/18 21:46 108 02/12/18 20:51 92 Nasal Cannula 2.0 02/12/18 20:44 115 22 111/58 92 Nasal Cannula 2.0 02/12/18 19:53 37.6 128 18 140/71 91 Room Air Physical Exam GENERAL: Awake, alert, well-appearing, in no acute distress HENT: Normocephalic, atraumatic. Oropharynx unremarkable. EYES: Normal conjunctiva. Sclera non-icteric. NECK: Supple. No nuchal rigidity. FROM. No JVD. RESPIRATORY: Clear to auscultation. CARDIAC: Regular rate, normal rhythm. Extremities warm and well perfused. Pulses equal. ABDOMEN: Soft, non-distended. No tenderness to palpation. No rebound or guarding. No masses. RECTAL: Deferred. MUSCULOSKELETAL: Chest examination reveals no tenderness. The back is symmetrical on inspection without obvious abnormality. There is no CVA tenderness to palpation. No joint edema. LOWER EXTREMITIES: Calves are equal size bilaterally and non-tender. No edema. No discoloration. NEURO: Normal sensorium. No sensory or motor deficits noted. SKIN: No rash or jaundice noted. Medical Decision & Procedures ER Provider Diagnostic Interpretation: Radiology results as stated below per my review and radiologist interpretation: CHEST ONE VIEW PORTABLE CLINICAL HISTORY: Shortness of breath COMPARISON STUDY: 11/12/2017 FINDINGS: The cardiac and mediastinal contours remain stable. There is diffuse elevation of the interstitium, possibly secondary to mild pulmonary vascular congestion. Right upper lung zone opacities, likely relate to old rib fractures. There is a 6 mm left upper lung zone opacity, corresponding to an area of presumed scarring on the prior CT scan performed April 2017 There is pulmonary emphysema.[ IMPRESSION: 1. Emphysema 2. Slight elevation of the interstitium. Clinical correlation in regards to mild congestive failure/fluid overload is recommended 3. Right upper lung zone opacities which are felt to be secondary to healing rib fractures 4. 6 mm left upper lung zone opacity corresponding to an area of presumed scarring on a prior CT scan. Electronically signed by: Octavio Penny M.D. 02/12/2018 10:19 PM Dictated Date/Time: 02/12/2018 10:[address] SCAN OF THE ABDOMEN AND PELVIS WITHOUT CONTRAST CLINICAL HISTORY: Nausea, vomiting, diarrhea COMPARISON STUDY: March 2015 TECHNIQUE: CT scan of the abdomen and pelvis was performed from the lung bases to the proximal femurs. Images are reviewed in the axial, sagittal, and coronal planes. IV contrast was not administered for this examination. A dose lowering technique was utilized adhering to the principles of ALARA. CT DOSE: 991.37 mGy.cm FINDINGS: Lower chest: There are by basilar atelectatic changes. There is a tiny left-sided Bochdalek hernia. Liver: There is mild hepatic steatosis. No focal masses are visualized in this noncontrast study. Gallbladder: Cholelithiasis Spleen: Mildly enlarged measuring 13 cm Pancreas: There is fatty atrophy the pancreas. There is no ductal dilatation. Adrenal glands: Unremarkable. Kidneys: There is a lower pole left renal calculus. There is a left-sided nephroureteral stent. Also evident is a right-sided nephroureteral stent. There is a right renal calculus. Bowel: There are no transition zones indicate bowel obstruction. The appendix appears normal. There is no acute diverticulitis. Peritoneum: There is no intraperitoneal free air or abdominal ascites. Vasculature: The abdominal aorta is normal in course and caliber. Adenopathy: There are a few borderline enlarged lymph nodes adjacent to the pancreas and in the region of the gastrohepatic ligament. There is a left iliac node which remains unchanged and is at the upper limits of normal in size Pelvic viscera: There is pelvic floor relaxation. A pessary is visualized. Skeletal structures: No destructive osseous lesions are seen. IMPRESSION: 1. No evidence of bowel obstruction. No evidence of free air 2. Normal appendix. No evidence of acute diverticulitis 3. Bilateral nephrolithiasis. Bilateral nephroureteral stents 4. Pelvic floor relaxation Electronically signed by: Octavio Penny M.D. 02/12/2018 10:38 PM Dictated Date/Time: 02/12/2018 10:31 PM Laboratory Results 02/12/18 20:00 Red Blood Count 3.77, Mean Corpuscular Volume 100.5, Mean Corpuscular Hemoglobin 33.2, Mean Corpuscular Hemoglobin Concent 33.0, Mean Platelet Volume 10.5, Neutrophils (%) (Auto) 78.5, Lymphocytes (%) (Auto) 10.6, Monocytes (%) ( Auto) 10.0, Eosinophils (%) (Auto) 0.3, Basophils (%) (Auto) 0.1, Neutrophils # (Auto) 11.74, Lymphocytes # (Auto) 1.59, Monocytes # (Auto) 1.50, Eosinophils # (Auto) 0.05, Basophils # (Auto) 0.01 02/12/18 20:00 Test 02/12/18 20:00 02/12/18 20:33 02/12/18 22:39 White Blood Count 14.96 K/uL (4.8-10.8) Red Blood Count 3.77 M/uL (4.2-5.4) Hemoglobin 12.5 g/dL (12.0-16.0) Hematocrit 37.9 % (37-47) Mean Corpuscular Volume 100.5 fL (80-100) Mean Corpuscular Hemoglobin 33.2 pg (25-34) Mean Corpuscular Hemoglobin Concent 33.0 g/dl (32-36) Platelet Count 149 K/uL (130-400) Mean Platelet Volume 10.5 fL (7.4-10.4) Neutrophils (%) (Auto) 78.5 % Lymphocytes (%) (Auto) 10.6 % Monocytes (%) (Auto) 10.0 % Eosinophils (%) (Auto) 0.3 % Basophils (%) (Auto) 0.1 % Neutrophils # (Auto) 11.74 K/uL (1.4-6.5) Lymphocytes # (Auto) 1.59 K/uL (1.2-3.4) Monocytes # (Auto) 1.50 K/uL (0.11-0.59) Eosinophils # (Auto) 0.05 K/uL (0-0.5) Basophils # (Auto) 0.01 K/uL (0-0.2) RDW Standard Deviation 51.7 fL (36.4-46.3) RDW Coefficient of Variation 14.2 % (11.5-14.5) Immature Granulocyte % (Auto) 0.5 % Immature Granulocyte # (Auto) 0.07 K/uL (0.00-0.02) Anion Gap 9.0 mmol/L (3-11) Est Creatinine Clear Calc Drug Dose 32.3 ml/min Estimated GFR () 35.3 Estimated GFR (Non- 30.5 BUN/Creatinine Ratio 12.9 (10-20) Calcium Level 8.8 mg/dl (8.5-10.1) Total Bilirubin 0.4 mg/dl (0.2-1) Direct Bilirubin < 0.1 mg/dl (0-0.2) Aspartate Amino Transf (AST/SGOT) 21 U/L (15-37) Alanine Aminotransferase (ALT/SGPT) 48 U/L (12-78) Alkaline Phosphatase 90 U/L (45-117) Total Protein 7.1 gm/dl (6.4-8.2) Albumin 3.4 gm/dl (3.4-5.0) Lipase 74 U/L (73-393) Urine Color DK YELLOW Urine Appearance TURBID (CLEAR) Urine pH 6.0 (4.5-7.5) Urine Specific [place] 1.019 (1.000-1.030) Urine Protein 3+ (NEG) Urine Glucose (UA) NEG (NEG) Urine Ketones NEG (NEG) Urine Occult Blood 3+ (NEG) Urine Nitrite POS (NEG) Urine Bilirubin NEG (NEG) Urine Urobilinogen NEG (NEG) Urine Leukocyte Esterase LARGE (NEG) Urine WBC (Auto) >30 /hpf (0-5) Urine RBC (Auto) >30 /hpf (0-4) Urine Hyaline Casts (Auto) /lpf (0-5) Urine Epithelial Cells (Auto) >30 /lpf (0-5) Urine Bacteria (Auto) NEG (NEG) Urine Pathogenic Casts /lpf (0) Phosphorus Level 3.7 mg/dl (2.5-4.9) Magnesium Level 1.8 mg/dl (1.8-2.4) Total Creatine Kinase 220 U/L (26-192) Creatine Kinase MB 5.4 ng/ml (0.5-3.6) Creatine Kinase MB Ratio 2.5 (0-3.0) Troponin I < 0.015 ng/ml (0-0.045) Labs reviewed by ED physician. Medications Administered Medications (Trade) Dose Ordered Sig/Artie Route Start Time Stop Time Status Last Admin Dose Admin Sodium Chloride 1,000 ml @ 999 mls/hr Q1H1M STAT IV 02/12/18 20:57 02/12/18 21:57 DC 02/12/18 21:23 999 MLS/HR Ondansetron HCl (Zofran Inj) 4 mg NOW STAT IV 02/12/18 20:57 02/12/18 20:59 DC 02/12/18 21:23 4 MG Acetaminophen (Tylenol Tab) 1,000 mg NOW STAT PO 02/12/18 20:57 02/12/18 20:59 DC 02/12/18 21:11 1,000 MG Albuterol Sulfate (Ventolin 0.083% 2.5MG/3ML Neb) 2.5 mg NOW STAT INH 02/12/18 21:16 02/12/18 21:17 DC 02/12/18 21:28 2.5 MG Albuterol Sulfate (Ventolin 0.083% 2.5MG/3ML Neb) 2.5 mg NOW STAT INH 02/12/18 21:57 02/12/18 21:59 DC 02/12/18 22:06 2.5 MG ECG Per My Interpretation Indication: vomiting Rate (beats per minute): 107 Rhythm: sinus tachycardia Findings: PVC, other (inferior infarct) Comparison ECG Date: 09/19/2017 Change: The inferior infarct is new. ED Course 2047: Past medical records reviewed. The patient was evaluated in room A4B. A complete history and physical examination was performed. I offered to perform x- ray s and cat scans, but the patient refused. 2056: Ordered Tylenol Tab 1000 mg PO, Zofran Inj 4 mg IV, NSS 1000 ml @ 999 mls/ hr IV. 2115: Ordered Albuterol Sulfate 2.5 mg INH. 2153: I reevaluated the patient and she is willing to get the CT and x-rays now. 2156: Ordered Albuterol Sulfate 2.5 mg INH. 9: I reevaluated the patient and she is doing okay. 2303: I reevaluated the patient and updated her on her test results. She states that she is unsure if she wants to be admitted to the hospital. 2347: The patient has decided that she would like to stay in the hospital. 001: I discussed the patient's case with Dr. Kika VIGIL Hospitalist, she has agreed to evaluate the patient for further management and care. Medical Decision Differential diagnosis: Etiologies such as gastroenteritis, food borne illness, infections, appendicitis , diverticulitis, inflammatory bowel disease, obstruction, GI bleed, biliary pathology, as well as others were entertained. This is a 63-year-old female who presents the emergency department complaining of vomiting. Serial abdominal examinations were performed and the patient in the emergency department and no time to the patient exhibited surgical abdomen. Upon arrival to the emergency department based on the patient's past medical history as well as the fact that she is requiring oxygen I strongly recommended that the patient received CAT scan of the abdomen pelvis as well as chest x-ray which she refused. She does have an elevation in her white blood cell count. She was given Zofran as well as a normal saline bolus. I again discussed the patient's case with her and her son and she eventually relented to having a CAT scan performed as well as EKG and cardiac enzymes. I am concerned that the patient's EKG is unchanged from previous she has what appears to be an old inferior infarct. After talking to the patient she was having chest pain earlier this week. I strongly recommended that the patient be admitted to the hospital however she at first wish to go home. Her son eventually recommended that she stay. I did discuss the case with hospitalist service who agreed to admit the patient. Patient was in agreement with the treatment plan. Medication Reconcilliation Current Medication List: was personally reviewed by me Blood Pressure Screening Patient's blood pressure: Normal blood pressure Blood pressure disposition: Did not require urgent referral Consults Time Called: 2348 Consulting Physician: Dr. Kika VIGIL Hospitalist Returned Call: 15 I discussed the patient's case with Dr. Kika VIGIL Hospitalist, she has agreed to evaluate the patient for further management and care. Impression Primary Impression: Vomiting Scribe Attestation The scribe's documentation has been prepared under my direction and personally reviewed by me in its entirety. I confirm that the note above accurately reflects all work, treatment, procedures, and medical decision making performed by me. Departure Information Dispostion Being Evaluated By Hospitalist Referrals Reynold Villegas M.D. (PCP) Patient Instructions [facility] Problem Qualifiers Primary Impression: Vomiting Vomiting type: unspecified Vomiting Intractability: unspecified Nausea presence: unspecified Qualified Codes: R11.10 - Vomiting, unspecified
[2018-02-12] MEDS ORDERED: ALBUTEROL 0.083% NEBU SOLN 3 ML VIAL INH STA ×2 (21:16→21:57)
[2018-02-12 21:36] LABS: HEMATOCRIT 37.9 % (37-47); HEMOGLOBIN 12.5 g/dL (12.0-16.0); MEAN CELL VOLUME 100.5 fL (80-100); MEAN CORPUSCULAR HEMOGLOBIN 33.2 pg (25-34); MEAN PLATELET VOLUME 10.5 fL (7.4-10.4); PLATELET COUNT 149 K/uL (130-400); RED CELL DISTRIBUTION WIDTH CV 14.2 % (11.5-14.5); RED CELL DISTRIBUTION WIDTH SD 51.7 fL (36.4-46.3); WHITE BLOOD COUNT 14.96 K/uL (4.8-10.8)
[2018-02-12 21:43] LABS: ALBUMIN 3.4 gm/dl (3.4-5.0); ALT/SGPT 48 U/L (12-78); AST/SGOT 21 U/L (15-37); BLOOD UREA NITROGEN 23 mg/dl (7-18); CALCIUM 8.8 mg/dl (8.5-10.1); CARBON DIOXIDE 22 mmol/L (21-32); CREATININE 1.75 mg/dl (0.60-1.20); GLUCOSE 139 mg/dl (70-99); LIPASE 74 U/L (73-393); POTASSIUM 4.2 mmol/L (3.5-5.1); SODIUM 140 mmol/L (136-145)
[2018-02-12 21:46] LABS: ALKALINE PHOSPHATASE 90 U/L (45-117); TOTAL PROTEIN 7.1 gm/dl (6.4-8.2)
[2018-02-12 22:02] LABS: BASO % 0.1 %; BASO ABS # 0.01 K/uL (0-0.2); EOS % 0.3 %; EOS ABS # 0.05 K/uL (0-0.5); IG# 0.07 K/uL (0.00-0.02); LYMPH % 10.6 %; LYMPH ABS # 1.59 K/uL (1.2-3.4); NEUT % 78.5 %; NEUT ABS # 11.74 K/uL (1.4-6.5)
--- NOTE | 2018-02-12 22:20 | DIAGNOSTIC IMAGING REPORT ---
CHEST ONE VIEW PORTABLE CLINICAL HISTORY: Shortness of breath COMPARISON STUDY: 11/12/2017 FINDINGS: The cardiac and mediastinal contours remain stable. There is diffuse elevation of the interstitium, possibly secondary to mild pulmonary vascular congestion. Right upper lung zone opacities, likely relate to old rib fractures. There is a 6 mm left upper lung zone opacity, corresponding to an area of presumed scarring on the prior CT scan performed April 2017 There is pulmonary emphysema.[ IMPRESSION: 1. Emphysema 2. Slight elevation of the interstitium. Clinical correlation in regards to mild congestive failure/fluid overload is recommended 3. Right upper lung zone opacities which are felt to be secondary to healing rib fractures 4. 6 mm left upper lung zone opacity corresponding to an area of presumed scarring on a prior CT scan. Electronically signed by: Octavio Penny M.D. 02/12/2018 10:19 PM Dictated Date/Time: 02/12/2018 10:16 PM
[2018-02-12] MEDS ORDERED: QUET1TAB10 PO (22:35)
[2018-02-12] MEDS ORDERED: TRMCR130WC TOP (22:40)
[2018-02-12] MEDS ORDERED: FOLI1TAB8 PO (22:40)
--- NOTE | 2018-02-12 22:40 | DIAGNOSTIC IMAGING REPORT ---
CT SCAN OF THE ABDOMEN AND PELVIS WITHOUT CONTRAST CLINICAL HISTORY: Nausea, vomiting, diarrhea COMPARISON STUDY: March 2015 TECHNIQUE: CT scan of the abdomen and pelvis was performed from the lung bases to the proximal femurs. Images are reviewed in the axial, sagittal, and coronal planes. IV contrast was not administered for this examination. A dose lowering technique was utilized adhering to the principles of ALARA. CT DOSE: 991.37 mGy.cm FINDINGS: Lower chest: There are by basilar atelectatic changes. There is a tiny left-sided Bochdalek hernia. Liver: There is mild hepatic steatosis. No focal masses are visualized in this noncontrast study. Gallbladder: Cholelithiasis Spleen: Mildly enlarged measuring 13 cm Pancreas: There is fatty atrophy the pancreas. There is no ductal dilatation. Adrenal glands: Unremarkable. Kidneys: There is a lower pole left renal calculus. There is a left-sided nephroureteral stent. Also evident is a right-sided nephroureteral stent. There is a right renal calculus. Bowel: There are no transition zones indicate bowel obstruction. The appendix appears normal. There is no acute diverticulitis. Peritoneum: There is no intraperitoneal free air or abdominal ascites. Vasculature: The abdominal aorta is normal in course and caliber. Adenopathy: There are a few borderline enlarged lymph nodes adjacent to the pancreas and in the region of the gastrohepatic ligament. There is a left iliac node which remains unchanged and is at the upper limits of normal in size Pelvic viscera: There is pelvic floor relaxation. A pessary is visualized. Skeletal structures: No destructive osseous lesions are seen. IMPRESSION: 1. No evidence of bowel obstruction. No evidence of free air 2. Normal appendix. No evidence of acute diverticulitis 3. Bilateral nephrolithiasis. Bilateral nephroureteral stents 4. Pelvic floor relaxation Electronically signed by: Octavio Penny M.D. 02/12/2018 10:38 PM Dictated Date/Time: 02/12/2018 10:31 PM
[2018-02-12] MEDS ORDERED: COEN1CAP28 PO (22:44)
[2018-02-12] MEDS ORDERED: MULTTAB58 PO (22:44)
[2018-02-12 23:15] LABS: CKMB 5.4 ng/ml (0.5-3.6)
[2018-02-13] MEDS ORDERED: BUTORPHANOL TARTRATE 10 MG/ML PRN (00:45)
[2018-02-13] MEDS ORDERED: ACETAMINOPHEN 325 MG TAB PO PRN (00:45)
[2018-02-13] MEDS ORDERED: ALBUTEROL HFA INHALER 8.5 GM INH PRN (00:45)
[2018-02-13] MEDS ORDERED: ONDANSETRON INJ 2 MG/ML 2 ML VIAL IV PRN (00:45)
[2018-02-13] MEDS ORDERED: ENOXAPARIN 40 MG/0.4 ML SYR SQ SCH (00:45)
[2018-02-13 01:36] LABS: PHOSPHORUS 3.7 mg/dl (2.5-4.9)
--- NOTE | 2018-02-13 01:36 | History and Physical ---
History & Physical Date & Time of Service: Feb 13, 2018 at 00:54 Chief Complaint: Nausea, Diarrhea, Vomiting Primary Care Physician: Reynold Villegas M.D. History of Present Illness Source: patient, family Patient is a pleasant 63yo C female presenting with 1 day of nausea, vomiting and diarrhea. Patient states that she had multiple episodes of large volume watery non-bloody diarrhea today, as well as a few episodes of nausea with nonbloody/nonbilious vomiting starting around noon today. She has some abdominal discomfort as well. Patient denies dietary changes, denies sick contacts. On arrival to the ER she was afebrile, tachycardic at 128bpm, BP 140/ 71, RR of 22 and 100% on 2L NC. EKG was performed in the ER which was noted to be different from prior, suggestive inferior infarct. Patient states that last Sunday she had right arm pain and heaviness but was not concerned about it. Otherwise she denies chest pain, palpitations, dyspnea, edema. She is able to walk a flight of stairs carrying laundry with minimal dyspnea. No exertional chest pain. She reports following with Cardiology in the past due to a prior episode of chest pain. She had a stress test in the past. ER Course: Zofran, Tylenol, NSS x 1 liter, Albuterol Past Medical/Surgical History Medical Problems: 1. Asthma 2. CKD Stage III - baseline Cr of 1.3-1.4 3. CVA 4. Non-hodgkins lymphoma 5. Migraine 6. SCC Lung CA upper lobe 7. HCV 8. Cirrhosis 9. Factor II deficiency 10. DVT Surgical Problems: 1. Tubal ligation 2. Tonsillectomy 3. Right ulnar nerve release 4. Right knee bursectomy 5. Bilateral renal stents 6. CT release left 7. Lymph node biopsy Family History Cancer Diabetes mellitus Heart disease Hypertension Social History Smoking Status: Never Smoker Smokeless Tobacco Use: No Alcohol Use: none Drug Use: none Marital Status: Housing status: lives with family, half-way Occupational Status: retired, disabled Immunizations History of Influenza Vaccine: Yes Influenza Vaccine Date: May 22, 2011 History of Tetanus Vaccine?: utd Tetanus Immunization Date: Jul 03, 2012 History of Pneumococcal: Yes Pneumococcal Date: May 22, 2011 History of Hepatitis B Vaccine: Unknown Allergies Coded Allergies: Levofloxacin (Verified Allergy, Intermediate, numbness/weakness, 02/06/18) Pt is OK to receive CIPRO Allopurinol (Verified Allergy, Unknown, rash, 02/06/18) BEE STING (Verified Allergy, Unknown, SWELLING AT SITE-SOB AT TIMES, ) Iodinated Diagnostic Agents (Verified Allergy, Unknown, Hives, 02/06/18) Iodine (Verified Allergy, Unknown, HIVES, 02/06/18) Pregabalin (Verified Allergy, Unknown, fever?/?rash, 02/06/18) Mcfarland (Verified Allergy, Unknown, HIVES, 02/06/18) Sulfa Antibiotics (Verified Allergy, Unknown, RASH/HIVES, 02/06/18) Venlafaxine (Verified Allergy, Unknown, UNKNOWN, 02/06/18) Gluten (Verified Adverse Reaction, Severe, Celiac Dz = GI symptoms, ) Adhesives (Verified Adverse Reaction, Unknown, red torn skin, 02/06/18) BAND AIDS OKAY - [place] OKAY - PAPER TAPE OKAY Propoxyphene (Verified Adverse Reaction, Unknown, REWRITER side effects, ) Home Medications Scheduled B-Complex Vitamins (Vitamin B Complex), 1 TAB PO QAM Beclomethasone Dip (Qvar), 2 PUFFS INH BID Calcium (Calcium), 1 TAB PO QAM Cephalexin Monohydrate (Keflex), 500 MG PO QAM Cetirizine (Zyrtec), 10 MG PO QAM Clonazepam (Klonopin), 1 MG PO HS Coenzyme Q10 (Ubidecarenone) (Co Q10), 200 MG PO QAM Denosumab (Prolia), 60 MG INJ Q6 MONTHS Docusate Sodium (Colace), 1 CAP PO TID Doxycycline (Monohydrate) (Doxycycline), 100 MG PO QDL Enoxaparin (Lovenox), 40 MG SQ QAM Ergocalciferol (Vitamin D 37879 Unit), 1 TAB PO WK Fentanyl (Fentanyl), 75 MCG TOP Q72H Folic Acid (Folvite), 1 MG PO QAM Gabapentin (Gabapentin), 400 MG PO TID Home O2 Therapy (Oxygen), 2 LITER NA HS Magnesium Oxide (Magnesium), 400 MG PO BID Methocarbamol (Robaxin), 750 MG PO BID Metoprolol Succinate (Toprol Xl), 50 MG PO QAM Multiple Vitamin (Multivitamin), 1 TAB PO QAM Oxycodone Hcl (Oxycontin), 1 TAB PO BID Potassium Chloride Microencaps (Potassium Chloride Er), 20 MEQ PO QAM Probiotic Product (Florajen3), 1 CAP PO QAM Quetiapine Fumarate (Seroquel), 200 MG PO HS Topiramate (Topamax), 100 MG PO HS Vitamin E (Vitamin E), 1 TAB PO QAM Scheduled PRN Albuterol Sulfate (Proair Respiclick), 2 PUFFS INH Q4H PRN for SOB/Wheezing Butorphanol Tartrate (Butorphanol Tartrate), 1 SPRAY NA DAILY PRN for Migraine Oxycodone Immediate Rel Tab (Roxicodone Ir), 5 MG PO Q2H PRN for Severe Pain Triamcinolone Acet (Aristocort 0.1%), 1 APPLN TOP BID PRN for Psoriasis Review of Systems Constitutional: + chills, No fever, No sweats, No weight loss, No weakness, No fatigue Eyes: No worsening of vision, No eye pain, No redness ENT: No hearing loss, No unusual epistaxis, No sore throat, No trouble swallowing Respiratory: No cough, No sputum, No wheezing, No shortness of breath, No dyspnea on exertion Cardiovascular: No chest pain, No orthopnea, No edema, No claudication, No palpitations Abdomen: + nausea, + vomiting, + diarrhea, + constipation, No pain Musculoskeletal: No joint pain Genitourinary - Female: No dysuria, No urinary frequency, No urinary urgency Neurologic: No paralysis Hematologic / Lymphatic: No abnormal bleeding/bruising, No night sweats Integumentary: No rash, No new/changing skin lesions Physical Exam Vital Signs Date Time Temp Pulse Resp B/P (MAP) Pulse Ox O2 Delivery O2 Flow Rate FiO2 02/12/18 23:48 104 20 110/59 95 Room Air 02/12/18 22:41 110 22 101/46 94 Nasal Cannula 2.0 02/12/18 22:10 108 20 100/54 100 Nebulizer 02/12/18 21:46 108 02/12/18 20:51 92 Nasal Cannula 2.0 02/12/18 20:44 115 22 111/58 92 Nasal Cannula 2.0 02/12/18 19:53 37.6 128 18 140/71 91 Room Air General: patient is resting comfortably in bed, NAD, pleasant Skin: warm, dry, intact, scattered psoriasis lesions noted, no evidence of bleeding or secondary infection HEENT: NC/AT, PERRL, EOMI, anicteric sclera, conjunctiva without injection, dry mucus membranes, dentition intact, neck supple, no JVD, no thyromegaly Heart: +S1/S2, regular, tachycardic at 102bpm with occasional ectopy, no m/r/g Lungs: equal air entry bilaterally, no rales/rhonchi or wheezes Abdomen: hyperactive bowel sounds, soft, NT/ND Extremities: warm, well perfused, mild clubbing of fingernails Neuro: grossly nonfocal, left facial droop from prior CVA Diagnostics Laboratory Results Results Past 24 Hours Test 02/12/18 20:00 02/12/18 20:33 02/12/18 22:39 Range/Units White Blood Count 14.96 4.8-10.8 K/uL Red Blood Count 3.77 4.2-5.4 M/uL Hemoglobin 12.5 12.0-16.0 g/dL Hematocrit 37.9 37-47 % Mean Corpuscular Volume 100.5 80-100 fL Mean Corpuscular Hemoglobin 33.2 25-34 pg Mean Corpuscular Hemoglobin Concent 33.0 32-36 g/dl Platelet Count 149 130-400 K/uL Mean Platelet Volume 10.5 7.4-10.4 fL Neutrophils (%) (Auto) 78.5 % Lymphocytes (%) (Auto) 10.6 % Monocytes (%) (Auto) 10.0 % Eosinophils (%) (Auto) 0.3 % Basophils (%) (Auto) 0.1 % Neutrophils # (Auto) 11.74 1.4-6.5 K/uL Lymphocytes # (Auto) 1.59 1.2-3.4 K/uL Monocytes # (Auto) 1.50 0.11-0.59 K/uL Eosinophils # (Auto) 0.05 0-0.5 K/uL Basophils # (Auto) 0.01 0-0.2 K/uL RDW Standard Deviation 51.7 36.4-46.3 fL RDW Coefficient of Variation 14.2 11.5-14.5 % Immature Granulocyte % (Auto) 0.5 % Immature Granulocyte # (Auto) 0.07 0.00-0.02 K/uL Sodium Level 140 136-145 mmol/L Potassium Level 4.2 3.5-5.1 mmol/L Chloride Level 109 98-107 mmol/L Carbon Dioxide Level 22 21-32 mmol/L Anion Gap 9.0 3-11 mmol/L Blood Urea Nitrogen 23 7-18 mg/dl Creatinine 1.75 0.60-1.20 mg/dl Est Creatinine Clear Calc Drug Dose 32.3 ml/min Estimated GFR () 35.3 Estimated GFR (Non- 30.5 BUN/Creatinine Ratio 12.9 10-20 Random Glucose 139 70-99 mg/dl Calcium Level 8.8 8.5-10.1 mg/dl Total Bilirubin 0.4 0.2-1 mg/dl Direct Bilirubin < 0.1 0-0.2 mg/dl Aspartate Amino Transf (AST/SGOT) 21 15-37 U/L Alanine Aminotransferase (ALT/SGPT) 48 12-78 U/L Alkaline Phosphatase 90 45-117 U/L Total Protein 7.1 6.4-8.2 gm/dl Albumin 3.4 3.4-5.0 gm/dl Lipase 74 73-393 U/L Urine Color DK YELLOW Urine Appearance TURBID CLEAR Urine pH 6.0 4.5-7.5 Urine Specific Weikert 1.019 1.000-1.030 Urine Protein 3+ NEG Urine Glucose (UA) NEG NEG Urine Ketones NEG NEG Urine Occult Blood 3+ NEG Urine Nitrite POS NEG Urine Bilirubin NEG NEG Urine Urobilinogen NEG NEG Urine Leukocyte Esterase LARGE NEG Urine WBC (Auto) >30 0-5 /hpf Urine RBC (Auto) >30 0-4 /hpf Urine Hyaline Casts (Auto) 0-5 /lpf Urine Epithelial Cells (Auto) >30 0-5 /lpf Urine Bacteria (Auto) NEG NEG Urine Pathogenic Casts 0 /lpf Total Creatine Kinase 220 26-192 U/L Creatine Kinase MB 5.4 0.5-3.6 ng/ml Creatine Kinase MB Ratio 2.5 0-3.0 Troponin I < 0.015 0-0.045 ng/ml Diagnostic Radiology CT SCAN OF THE ABDOMEN AND PELVIS WITHOUT CONTRAST CLINICAL HISTORY: Nausea, vomiting, diarrhea COMPARISON STUDY: March 2015 TECHNIQUE: CT scan of the abdomen and pelvis was performed from the lung bases to the proximal femurs. Images are reviewed in the axial, sagittal, and coronal planes. IV contrast was not administered for this examination. A dose lowering technique was utilized adhering to the principles of ALARA. CT DOSE: 991.37 mGy.cm FINDINGS: Lower chest: There are by basilar atelectatic changes. There is a tiny left-sided Bochdalek hernia. Liver: There is mild hepatic steatosis. No focal masses are visualized in this noncontrast study. Gallbladder: Cholelithiasis Spleen: Mildly enlarged measuring 13 cm Pancreas: There is fatty atrophy the pancreas. There is no ductal dilatation. Adrenal glands: Unremarkable. Kidneys: There is a lower pole left renal calculus. There is a left-sided nephroureteral stent. Also evident is a right-sided nephroureteral stent. There is a right renal calculus. Bowel: There are no transition zones indicate bowel obstruction. The appendix appears normal. There is no acute diverticulitis. Peritoneum: There is no intraperitoneal free air or abdominal ascites. Vasculature: The abdominal aorta is normal in course and caliber. Adenopathy: There are a few borderline enlarged lymph nodes adjacent to the pancreas and in the region of the gastrohepatic ligament. There is a left iliac node which remains unchanged and is at the upper limits of normal in size Pelvic viscera: There is pelvic floor relaxation. A pessary is visualized. Skeletal structures: No destructive osseous lesions are seen. IMPRESSION: 1. No evidence of bowel obstruction. No evidence of free air 2. Normal appendix. No evidence of acute diverticulitis 3. Bilateral nephrolithiasis. Bilateral nephroureteral stents 4. Pelvic floor relaxation ################################################################################ ######################### CHEST ONE VIEW PORTABLE CLINICAL HISTORY: Shortness of breath COMPARISON STUDY: 11/12/2017 FINDINGS: The cardiac and mediastinal contours remain stable. There is diffuse elevation of the interstitium, possibly secondary to mild pulmonary vascular congestion. Right upper lung zone opacities, likely relate to old rib fractures. There is a 6 mm left upper lung zone opacity, corresponding to an area of presumed scarring on the prior CT scan performed April 2017 There is pulmonary emphysema.[ IMPRESSION: 1. Emphysema 2. Slight elevation of the interstitium. Clinical correlation in regards to mild congestive failure/fluid overload is recommended 3. Right upper lung zone opacities which are felt to be secondary to healing rib fractures 4. 6 mm left upper lung zone opacity corresponding to an area of presumed scarring on a prior CT scan. EKG The study demonstrates sinus tachycardia at 107bpm with PVCs, normal MD and QRS intervals, GQp=173, no evidence of acute ischemia, possible old inferior infarct. When compared to prior EKG from 09/19/2017 there is significant changes in leads II, aVL and aVF Impression Assessment and Plan 63yo C female presenting with nausea/vomiting and diarrhea. 1. Nausea/vomiting/diarrhea - possibly secondary to viral syndrome, patient denies changes in diet, sick contacts or new medication. No evidence of colitis or acute intraabdominal process on CT. Patient appears clinically volume depleted on exam -Check c. diff -Monitor electrolytes and replete as needed -NSS at 125mL/hr x 2 liters -Zofran PRN -Hold Colace 2. AUR[place]A on CKD - patient with baseline Cr of 1.3-1.4 presents now with Cr of 1.75. Most likely secondary to prerenal azotemia in setting of GI losses. -Continue to monitor BUN/Cr/electrolytes and UOP -Avoid nephrotoxic agents -Renal dosing where appropriate -Repeat chemistry panel in AM 3. Leukocytosis - patient is SIRS 3/4 on arrival (elevated HR, leukocytosis and tachypnea). Sources to include GI vs urine vs skin -Will repeat UA and culture if indicated -Continue to monitor, no empiric antibiotics at this time 4. EKG changes - patient does not endorse CP, palpitations or exertional symptoms. She had vague arm pain last Sunday, uncertain of significance. EKG changes suggestive of inferior infarct, age undetermined -Trend cardiac enzymes x 3 sets -EKG in AM -Cardiology consultation -Continue Metoprolol XL 50mg po qAM -Start ASA 81mg po daily -Check CK with AM labs - patient should be on a statin given history of prior CVA 5. Asthma - patient presently with adequate oxygenation and ventilation on 2L NC, no respiratory distress. -Continue O2, baseline 2L qHS -Continue Albuterol PRN -Continue Beclomethasone inhaled 6. Migraine - patient presently without headache -Continue Butorphanol PRN -Continue Topamax 7. Chronic Pain - Patient is on a significant amount of pain medication -Continue Fentanyl patch -Continue Oxycontin 20mg po BID -Change Oxycodone to 5mg po q 4 hours PRN -Continue Neurontin -Continue Methocarbamol 8. Anxiety/Depression/Insomnia -Continue Clonazepam -Continue Seroquel 200mg po qHS 9. F/E/N - NSS at 125mL/hr x 2 liters, monitor electrolytes and replete as needed, AHA diet as tolerated 10. Ppx - Lovenox for DVT prophylaxis 11. Code - Full per discussion with patient 12. Admit to general medical floor Resuscitation Status VTE Prophylaxis Will order VTE Prophylaxis: Yes
[2018-02-13 02:25] VITALS: BP 117/72; PULSE 86; TEMP 36.6; O2SAT 94; Ht 154.9 cm; Wt 84.6 kg
[2018-02-13] MEDS: OXYCODONE HCL IR 5 MG TAB (IMMEDIATE RELEASE) PO PRN ×3 (03:01→16:04)
[2018-02-13] MEDS: SODIUM CHLORIDE 0.9% 1000ML 1,000 ML IV SCH ×2 (03:02→08:21)
[2018-02-13] MEDS ORDERED: IV FLUIDS COMPLETED PRN (04:15)
[2018-02-13 07:32] VITALS: BP 107/69; PULSE 86; TEMP 36.5; O2SAT 97
[2018-02-13] MEDS: ASPIRIN 81 MG CHEW PO SCH (08:21)
[2018-02-13] MEDS: OXYCODONE HCL 20 MG TABCR (OXYCONTIN) PO SCH ×2 (08:21→19:48)
[2018-02-13] MEDS: ENOXAPARIN 40 MG/0.4 ML SYR SQ SCH (08:22)
[2018-02-13] MEDS: METHOCARBAMOL 750 MG TAB PO SCH ×2 (08:23→19:48)
[2018-02-13] MEDS: BECLOMETHASONE DIP HFA 80 MCG 8.7G INH INH SCH ×2 (08:23→19:48)
[2018-02-13] MEDS: CETIRIZINE HCL 10 MG TAB PO SCH (08:23)
[2018-02-13] MEDS: METOPROLOL SUCC 50MG EXT REL TAB PO SCH (08:24)
[2018-02-13] MEDS: GABAPENTIN 400 MG CAP PO SCH ×3 (08:24→19:48)
[2018-02-13] MEDS: CHECK FENTANYL PATCH PLACEMENT SCH ×3 (08:25→23:38)
--- NOTE | 2018-02-13 09:42 | Cardiology Consultation ---
Cardiology Consultation Date of Consultation: Feb 13, 2018. Requesting Physician: Dr. Kay Attending Physician: Dr. Garcia Reason for Consultation: ECG abnormality Pt evaluation today including: conversation w/ patient, physical exam, chart review, lab review, review of studies, review of inpatient medication list, conversation w/ attending History of Present Illness Ms. Duron is a 63-year-old female with a complex past medical history who presented to the ED last evening with complaints of vomiting and diarrhea which began yesterday afternoon. ECG on arrival showed sinus tachycardia with occasional PVCs, possible inferior infarct, and low voltage QRS. The consultation was requested due to the new finding of a possible inferior infarct on ECG. The patient has been somewhat limited in her functional status recently due to lower extremity pain from recurrent cellulitis infections. She is not able to do any prolonged walking due to the discomfort. She continues to perform her own housework, and she has stairs in her home which she ambulates up and down regularly. She denies any chest discomfort, other anginal type symptoms, or limiting dyspnea with these activities. She notes an episode of right arm pain last week, which lasted several hours in duration. She felt that the discomfort was musculoskeletal in nature. She also had an episode of left arm discomfort a couple of weeks ago, which she also felt was musculoskeletal in nature as she was scrubbing floors and vacuuming prior to the onset of the pain. She has chronically slept in her recliner at night. She denies edema, palpitations, lightheadedness, syncope, presyncope, or cerebrovascular symptoms. She notes chronic hematuria. She denies melena or hematochezia. Review of Systems: As noted in HPI. All other ROS are reviewed and otherwise negative at this time. Past Medical/Surgical History 1. Hx of multiple prior CVAs 2. Hx of LLE DVT 3. Hypercoagulable state (Factor II mutation) 4. Hypertension 5. COPD/asthma - wears supplemental O2 at night 6. Hx of B cell non-Hodgkin's lymphoma treated with chemotherapy 7. Hx of squamous cell carcinoma of lung treated with radiation 8. Hx of resolved cardiomyopathy (EF 40% in 2012; EF 60-65% by most recent echo in 2014) 9. Hx of Hepatitis C 10. Chronic kidney disease 11. Recurrent LE cellulitis 12. Bilateral uretal stent placement 13. Hx of tubal ligation Family History Cancer Diabetes mellitus Heart disease Hypertension Father of a SC at the age of 69. Mother in a car accident. Social History Smoking Status: Former Smoker History of Alcohol Use: No Quit smoking in 2010. She smoked off and on since the age of 17 at up to 1 ppd. No alcohol or illicit drug use. Allergies Coded Allergies: Levofloxacin (Verified Allergy, Intermediate, numbness/weakness, 02/06/18) Pt is OK to receive CIPRO Allopurinol (Verified Allergy, Unknown, rash, 02/06/18) BEE STING (Verified Allergy, Unknown, SWELLING AT SITE-SOB AT TIMES, ) Iodinated Diagnostic Agents (Verified Allergy, Unknown, Hives, 02/06/18) Iodine (Verified Allergy, Unknown, HIVES, 02/06/18) Pregabalin (Verified Allergy, Unknown, fever?/?rash, 02/06/18) [place] (Verified Allergy, Unknown, HIVES, 02/06/18) Sulfa Antibiotics (Verified Allergy, Unknown, RASH/HIVES, 02/06/18) Venlafaxine (Verified Allergy, Unknown, UNKNOWN, 02/06/18) Gluten (Verified Adverse Reaction, Severe, Celiac Dz = GI symptoms, ) Adhesives (Verified Adverse Reaction, Unknown, red torn skin, 02/06/18) BAND AIDS OKAY - [place] OKAY - PAPER TAPE OKAY Propoxyphene (Verified Adverse Reaction, Unknown, REGULATORY AUDITOR side effects, ) Medications Current Inpatient Medications Medications (Trade) Dose Ordered Sig/Artie Route Start Time Stop Time Status Last Admin Dose Admin Acetaminophen (Tylenol Tab) 650 mg Q4H PRN PO 02/13/18 00:45 03/15/18 00:44 Ondansetron HCl (Zofran Inj) 4 mg Q6H PRN IV 02/13/18 00:45 03/15/18 00:44 Beclomethasone Dipropionate (Qvar 80 Mcg Hfa Inhaler) 2 puffs BID INH 02/13/18 08:00 03/15/18 08:59 02/13/18 08:23 2 PUFFS Butorphanol Tartrate (Butorphanol Tartrate [place]) 1 sprays DAILY PRN NA 02/13/18 00:45 03/15/18 00:44 Cetirizine HCl (zyrTEC TAB) 10 mg QAM PO 02/13/18 08:00 03/15/18 08:59 02/13/18 08:23 10 MG Enoxaparin Sodium (Lovenox Inj) 40 mg QAM SQ 02/13/18 08:00 03/15/18 08:59 02/13/18 08:22 40 MG Folic Acid (Folvite Tab) 1 mg QAM PO 02/13/18 08:00 03/15/18 08:59 02/13/18 08:24 1 MG Gabapentin (Neurontin Cap) 400 mg TID PO 02/13/18 08:00 03/15/18 08:59 02/13/18 08:24 400 MG Methocarbamol (Robaxin Tab) 750 mg BID PO 02/13/18 08:00 03/15/18 08:59 02/13/18 08:23 750 MG Metoprolol Succinate (Toprol Xl Tab) 50 mg QAM PO 02/13/18 08:00 03/15/18 08:59 02/13/18 08:24 50 MG Oxycodone HCl (Oxycontin Tab) 20 mg BID PO 02/13/18 08:00 02/27/18 08:59 02/13/18 08:21 20 MG Oxycodone HCl (Roxicodone Immediate Rel Tab) 5 mg Q4 PRN PO 02/13/18 00:45 02/27/18 00:44 02/13/18 03:01 5 MG Quetiapine Fumarate (seroQUEL TAB) 200 mg HS PO 02/13/18 21:00 03/15/18 20:59 Topiramate (Topamax Tab) 100 mg HS PO 02/13/18 21:00 03/15/18 20:59 Albuterol (Proair Hfa) 2 puffs Q4H PRN INH 02/13/18 00:45 03/15/18 00:44 Doxycycline Hyclate (Vibramycin Cap) 100 mg QDL PO 02/13/18 12:00 03/15/18 11:59 02/13/18 08:22 100 MG Fentanyl (Duragesic Patch) 75 mcg Q72H TD 02/14/18 08:00 02/28/18 07:59 Sodium Chloride 1,000 ml @ 125 mls/hr Q8H IV 02/13/18 00:45 02/13/18 16:44 02/13/18 08:21 125 MLS/HR Aspirin (Aspirin Chew) 81 mg DAILY PO 02/13/18 08:00 03/15/18 08:59 02/13/18 08:21 81 MG Clonazepam (Klonopin Tab) 1 mg HS PRN PO 02/13/18 21:00 03/15/18 20:59 Miscellaneous (Fentanyl Patch Remove & Waste) 1 ea Q72H N/A 02/14/18 07:59 03/16/18 07:58 Miscellaneous Information (Check Fentanyl Patch Placement) 1 ea QS N/A 02/13/18 08:00 03/15/18 07:59 02/13/18 08:25 1 EA Miscellaneous (Iv Fluids Completed) 1 ea PRN PRN N/A 02/13/18 04:15 02/13/19 04:14 Physical Exam Vital Signs Past 12 Hours Date Time Temp Pulse Resp B/P (MAP) Pulse Ox O2 Delivery O2 Flow Rate FiO2 02/13/18 07:32 36.5 86 16 107/69 (82) 97 Nasal Cannula 2.0 02/13/18 02:25 36.6 86 20 117/72 94 Venturi Mask 2.0 02/13/18 02:02 36.6 89 20 105/67 95 Nasal Cannula 2.0 02/13/18 00:56 92 20 113/68 94 Nasal Cannula 2.0 02/12/18 23:48 104 20 110/59 95 Room Air 02/12/18 22:41 110 22 101/46 94 Nasal Cannula 2.0 02/12/18 22:10 108 20 100/54 100 Nebulizer 02/12/18 21:46 108 Constitutional: Alert, oriented, in no acute distress. Oxygen via nasal cannula HEENT: Head is atraumatic and normocephalic. EOMs intact. Sclera anicteric. Face is symmetric. No perioral cyanosis. Mucous membranes moist. Neck: Supple, no JVD, no carotid bruits Pulmonary: Normal respiratory effort, clear to auscultation bilaterally Cardiac: Regular rate and rhythm, normal S1 and S2, no gallops, no rubs, no murmurs Extremities: No clubbing, cyanosis, or edema. Pulses 2+ and symmetric Abdomen: Normal bowel sounds, soft, non-tender, no abdominal mass palpated Skin: Chronic venous stasis skin changes of bilateral lower extremities. No rash or skin lesions Neurological: Oriented to person, place, and time Data Laboratory Results: Last 24 Hours Test 02/12/18 20:00 02/12/18 20:33 02/12/18 22:39 02/13/18 05:07 White Blood Count 14.96 K/uL Red Blood Count 3.77 M/uL Hemoglobin 12.5 g/dL Hematocrit 37.9 % Mean Corpuscular Volume 100.5 fL Mean Corpuscular Hemoglobin 33.2 pg Mean Corpuscular Hemoglobin Concent 33.0 g/dl Platelet Count 149 K/uL Mean Platelet Volume 10.5 fL Neutrophils (%) (Auto) 78.5 % Lymphocytes (%) (Auto) 10.6 % Monocytes (%) (Auto) 10.0 % Eosinophils (%) (Auto) 0.3 % Basophils (%) (Auto) 0.1 % Neutrophils # (Auto) 11.74 K/uL Lymphocytes # (Auto) 1.59 K/uL Monocytes # (Auto) 1.50 K/uL Eosinophils # (Auto) 0.05 K/uL Basophils # (Auto) 0.01 K/uL RDW Standard Deviation 51.7 fL RDW Coefficient of Variation 14.2 % Immature Granulocyte % (Auto) 0.5 % Immature Granulocyte # (Auto) 0.07 K/uL Sodium Level 140 mmol/L Potassium Level 4.2 mmol/L Chloride Level 109 mmol/L Carbon Dioxide Level 22 mmol/L Anion Gap 9.0 mmol/L Blood Urea Nitrogen 23 mg/dl Creatinine 1.75 mg/dl Est Creatinine Clear Calc Drug Dose 32.3 ml/min Estimated GFR () 35.3 Estimated GFR (Non- 30.5 BUN/Creatinine Ratio 12.9 Random Glucose 139 mg/dl Calcium Level 8.8 mg/dl Total Bilirubin 0.4 mg/dl Direct Bilirubin < 0.1 mg/dl Aspartate Amino Transf (AST/SGOT) 21 U/L Alanine Aminotransferase (ALT/SGPT) 48 U/L Alkaline Phosphatase 90 U/L Total Protein 7.1 gm/dl Albumin 3.4 gm/dl Lipase 74 U/L Urine Color DK YELLOW Urine Appearance TURBID Urine pH 6.0 Urine Specific [place] 1.019 Urine Protein 3+ Urine Glucose (UA) NEG Urine Ketones NEG Urine Occult Blood 3+ Urine Nitrite POS Urine Bilirubin NEG Urine Urobilinogen NEG Urine Leukocyte Esterase LARGE Urine WBC (Auto) >30 /hpf Urine RBC (Auto) >30 /hpf Urine Hyaline Casts (Auto) /lpf Urine Epithelial Cells (Auto) >30 /lpf Urine Bacteria (Auto) NEG Urine Pathogenic Casts /lpf Phosphorus Level 3.7 mg/dl Magnesium Level 1.8 mg/dl Total Creatine Kinase 220 U/L Creatine Kinase MB 5.4 ng/ml Creatine Kinase MB Ratio 2.5 Troponin I < 0.015 ng/ml < 0.015 ng/ml Chest x-ray: 1. Emphysema 2. Slight elevation of the interstitium. Clinical correlation in regards to mild congestive failure/fluid overload is recommended 3. Right upper lung zone opacities which are felt to be secondary to healing rib fractures 4. 6 mm left upper lung zone opacity corresponding to an area of presumed scarring on a prior CT scan. EKG: Sinus tachycardia with occasional PVCs. 107 bpm. Low voltage QRS. Possible inferior infarct, which is a new finding compared to previous ECGs. Assessment & Plan Patient is a 63-year-old female with a complex medical history, but known known CAD, who was admitted last evening in the setting of vomiting and diarrhea. ECG shows possible inferior infarct, which is a new finding compared to prior ECGs. She has no acute ST-T wave abnormality, and 2 sets of Troponin I have been negative. She is not currently experiencing any angina, and has been relatively active at home without anginal symptoms. She has no signs or symptoms of congestive heart failure. It is recommended that she undergo an echocardiogram to further evaluate her LV systolic function and regional wall motion. As there does not appear to be an acute event occurring, no additional evaluation is warranted at this time. Moving forward, though, would optimize her cardiovascular risk factors with good blood pressure, cholesterol, and blood glucose control. She has been started on a low dose aspirin, which is also appropriate. The patient was discussed with Dr. Garcia, and the plan was made in collaboration with him.
[2018-02-13] MEDS ORDERED: PERFLUTREN LIPID MICROSPHERE (DEFINITY) IV ONE (10:23)
[2018-02-13] MEDS ORDERED: DOXYCYCLINE HYCLATE 100 MG CAP PO SCH (12:00)
[2018-02-13 12:06] LABS: BLOOD UREA NITROGEN 21 mg/dl (7-18); CALCIUM 7.5 mg/dl (8.5-10.1); CARBON DIOXIDE 23 mmol/L (21-32); GLUCOSE 105 mg/dl (70-99); POTASSIUM 3.8 mmol/L (3.5-5.1); SODIUM 141 mmol/L (136-145)
[2018-02-13] MEDS: LACTOBACILLUS ACIDOPHILUS (FLORANEX) TAB PO SCH ×2 (12:34→18:10)
[2018-02-13] MEDS: VANCOMYCIN HCL 125 MG/2.5ML SOLN PO SCH ×3 (12:35→23:38)
[2018-02-13] MEDS: RASPBERRY SYRUP 5 ML UDP PO SCH ×3 (12:35→23:37)
--- NOTE | 2018-02-13 12:37 | ECHOCARDIOGRAM REPORT ---
*NOTICE TO RECEIVING LIBERTARIAN AGENCY This information is strictly Confidential and protected under [place] law. [place] law prohibits you from making any further disclosure of this information unless further disclosure is expressly permitted by the written consent of the person to whom it pertains or is authorized by law. A general authorization for the release of medical or other information is not sufficient for this purpose. Hospital accepts no responsibility if the information is made available to any other person, INCLUDING THE PATIENT. Interpretation Summary * Name: JOSUE IVY Study Date: 02/13/2018 09:56 AM BP: 107/69 mmHg * Patient Location: .4E\S\E418\S\1 HR: 86 * : 1955 (M/d/yyyy) Gender: Female Height: 60 in * Age: 63 yrs Ethnicity: CA Weight: 186 lb * Ordering Physician: Josey Black * Referring Physician: Self, Referred * Performed By: Heydi Salter RDCS * * Reason For Study: ECG Abnormality * BSA: 1.8 m2 * -- Conclusions -- * Left ventricular systolic function is normal. * The left ventricular wall motion is normal. * Right ventricular systolic pressure is elevated at 30-40mmHg. Procedure Details * A complete two-dimensional transthoracic echocardiogram was performed (2D, M-mode, Doppler and color flow Doppler). * A contrast injection of Definity was performed to improve assessment of LV function. * Contrast was injected into an intravenous site in the left arm. * One vial of Definity ultrasound contrast was diluted in normal saline to a total volume of 10 ml. A total of '2' ml of solution was administered during imaging. * Lot # [id number] of Definity utilized for procedure. * Expiration date 1APR19. * The attending nurse who injected the contrast agent was Radha Blanco RN. Left Ventricle * The left ventricle is normal in size. * There is normal left ventricular wall thickness. * Ejection Fraction = 60-65%. * Left ventricular systolic function is normal. * Normal diastolic function * The left ventricular wall motion is normal. Right Ventricle * The right ventricle is normal in size and function. * The right ventricular systolic function is normal as assessed by tricuspid annular plane systolic excursion (TAPSE) (normal >1.5 cm). Atria * The left atrial size is normal. * Right atrium not well visualized. Mitral Valve * The mitral valve is grossly normal. * Significant mitral regurgitation is absent. Tricuspid Valve * The tricuspid valve is not well visualized, but is grossly normal. * There is trace tricuspid regurgitation. * Right ventricular systolic pressure is elevated at 30-40mmHg. Aortic Valve * The aortic valve is normal in structure and function. * No hemodynamically significant valvular aortic stenosis. * There is no significant aortic regurgitation. Pulmonic Valve * The pulmonic valve is not well visualized. Great Vessels * The aortic root is normal size. Pericardium/Pleural * There is no pericardial effusion. MMode 2D Measurements and Calculations IVSd 0.85 cm IVSs 1.2 cm LVIDd 4.8 cm LVIDs 3.0 cm LVPWd 0.85 cm LVPWs 1.5 cm IVS/LVPW 0.99 FS 36.9 % EDV(Teich) 106.3 ml ESV(Teich) 35.5 ml EF(Teich) 66.6 % EDV(cubed) 109.0 ml ESV(cubed) 27.4 ml EF(cubed) 74.8 % % IVS thick 38.2 % % LVPW thick 78.2 % LV mass(C)d 135.8 grams LV mass(C)dI 75.0 grams/m\S\2 LV mass(C)s 132.2 grams LV mass(C)sI 73.1 grams/m\S\2 SV(Teich) 70.8 ml SI(Teich) 39.1 ml/m\S\2 SV(cubed) 81.5 ml SI(cubed) 45.1 ml/m\S\2 Ao root diam 3.0 cm Ao root area 6.9 cm\S\2 ACS 2.3 cm LA dimension 3.4 cm LA/Ao 1.2 LVAd ap4 21.4 cm\S\2 LVLd ap4 7.6 cm EDV(MOD-sp4) 55.0 ml EDV(sp4-el) 51.3 ml LVAs ap4 12.5 cm\S\2 LVLs ap4 6.9 cm ESV(MOD-sp4) 19.8 ml ESV(sp4-el) 19.4 ml EF(MOD-sp4) 64.1 % EF(sp4-el) 62.2 % LVAd ap2 22.4 cm\S\2 LVLd ap2 7.8 cm EDV(MOD-sp2) 55.0 ml EDV(sp2-el) 54.9 ml LVAs ap2 11.0 cm\S\2 LVLs ap2 6.4 cm ESV(MOD-sp2) 16.8 ml ESV(sp2-el) 16.0 ml EF(MOD-sp2) 69.5 % EF(sp2-el) 70.9 % LVLd %diff 2.2 % EDV(MOD-bp) 55.0 ml LVLs %diff -7.14 % ESV(MOD-bp) 18.8 ml EF(MOD-bp) 65.8 % SV(MOD-sp4) 35.2 ml SI(MOD-sp4) 19.5 ml/m\S\2 SV(MOD-sp2) 38.2 ml SI(MOD-sp2) 21.1 ml/m\S\2 SV(MOD-bp) 36.2 ml SI(MOD-bp) 20.0 ml/m\S\2 SV(sp4-el) 31.9 ml SI(sp4-el) 17.6 ml/m\S\2 SV(sp2-el) 38.9 ml SI(sp2-el) 21.5 ml/m\S\2 Doppler Measurements and Calculations MV E max vijay 124.7 cm/sec MV A max vijay 102.8 cm/sec MV E/A 1.2 MV dec time 0.17 sec Ao V2 max 136.8 cm/sec Ao max PG 7.5 mmHg Ao max PG (full) 3.4 mmHg LV V1 max PG 4.1 mmHg LV V1 max 101.4 cm/sec PA V2 max 132.7 cm/sec PA max PG 7.0 mmHg TR max vijay 279.8 cm/sec
[2018-02-13 15:14] VITALS: BP 97/63; PULSE 72; TEMP 36.7; O2SAT 96
[2018-02-13 16:00] VITALS: O2SAT 96
[2018-02-13] MEDS ORDERED: CLONAZEPAM 1 MG TAB PO SCH (21:00)
[2018-02-13] MEDS ORDERED: NSS + 20MEQ KCL 1000ML 1,000 ML IV SCH (22:00)
--- NOTE | 2018-02-13 22:07 | Progress Note ---
Subjective Date of Service: Feb 13, 2018. Subjective Pt evaluation today including: conversation w/ patient, physical exam, chart review, lab review, review of studies (CT abd/pelvis, echo) Pain: none reported PO Intake: tolerating diet Voiding: no voiding problems patient with 2 loose stools this AM after eating breakfast yesterday had 20+ stools throughout the day reports taking chronic keflex and doxycycline for recurrent LE cellulitis, managed by infectious disease also takes probiotics we had a discussion about how to clean her bathroom and linens at home (she lives with her son) Problem List Medical Problems: (1) Acute blood loss anemia Status: Acute (2) Acute blood loss anemia Status: Acute (3) Anemia Status: Acute (4) Anemia Status: Acute (5) Asthma Status: Chronic (6) ASTHMA, UNSPECIFIED Status: Chronic (7) ASTHMA, UNSPECIFIED Status: Chronic (8) Bronchitis Status: Chronic (9) Cellulitis Status: Chronic (10) Cellulitis Status: Chronic (11) Cellulitis of both lower extremities Status: Acute (12) Cellulitis of both lower extremities Status: Acute (13) Cellulitis of right leg Status: Acute (14) CHRONIC KIDNEY DISEASE, STAGE III (MODERATE) Status: Chronic (15) CHRONIC KIDNEY DISEASE, STAGE III (MODERATE) Status: Chronic (16) Contusion of left leg Status: Acute (17) Contusion of left leg Status: Acute (18) Contusion of leg, left Status: Acute (19) Contusion of leg, left Status: Acute (20) Contusion of leg, left Status: Acute (21) Emphysema Status: Chronic (22) Failure of outpatient treatment Status: Acute (23) Fall Status: Acute (24) Fall Status: Acute (25) Fever Status: Acute (26) Fever Status: Acute (27) Frequent falls Status: Chronic (28) Frequent falls Status: Chronic (29) History of malignant lymphoma Status: Chronic (30) HYDRONEPHROSIS Status: Chronic (31) HYDRONEPHROSIS Status: Chronic (32) Hypertension Nos Status: Chronic (33) Hypertension Nos Status: Chronic (34) Hypotension Status: Acute (35) Hypotension Status: Acute (36) Hypotension Status: Acute (37) Hypotension Status: Acute (38) Hypotension Status: Acute (39) Hypoxia Status: Acute (40) Hypoxia Status: Acute (41) HYPTNSV CHR KID DIS, UNSPEC, 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 (42) HYPTNSV CHR KID DIS, UNSPEC, 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 (43) Left leg cellulitis Status: Acute (44) Lymphangitis, acute, lower leg Status: Acute (45) Orthostatic hypotension Status: Acute (46) Orthostatic hypotension Status: Acute (47) Pancytopenia Status: Chronic (48) Pneumonia Status: Chronic (49) Rash and nonspecific skin eruption Status: Acute (50) Rash and nonspecific skin eruption Status: Acute (51) Sepsis Status: Acute (52) Sepsis Status: Acute (53) Stroke Status: Acute (54) Stroke Status: Acute (55) UTI (lower urinary tract infection) Status: Acute (56) UTI (lower urinary tract infection) Status: Acute (57) UTI (lower urinary tract infection) Status: Acute (58) UTI (urinary tract infection) Status: Acute (59) UTI (urinary tract infection) Status: Acute (60) Vomiting Status: Acute Social History Problems: (1) Hepatitis C Status: Chronic (2) Hepatitis C Status: Chronic Review of Systems Constitutional: No fever, No chills Respiratory: No shortness of breath, No dyspnea on exertion Cardiac: No chest pain Abdomen: + pain, + diarrhea, No nausea, No vomiting, No GI bleeding Objective Vital Signs Date Time Temp Pulse Resp B/P (MAP) Pulse Ox O2 Delivery O2 Flow Rate FiO2 02/13/18 16:00 96 Room Air 02/13/18 15:14 36.7 72 18 97/63 (74) 96 Room Air 02/13/18 08:30 Room Air 02/13/18 07:32 36.5 86 16 107/69 (82) 97 Nasal Cannula 2.0 02/13/18 02:25 36.6 86 20 117/72 94 Venturi Mask 2.0 02/13/18 02:02 36.6 89 20 105/67 95 Nasal Cannula 2.0 02/13/18 00:56 92 20 113/68 94 Nasal Cannula 2.0 02/12/18 23:48 104 20 110/59 95 Room Air 02/12/18 22:41 110 22 101/46 94 Nasal Cannula 2.0 02/12/18 22:10 108 20 100/54 100 Nebulizer Physical Exam General Appearance: no apparent distress ENT: pharynx normal (MMM ) Neck: no JVD Respiratory/Chest: lungs clear, no respiratory distress, no accessory muscle use Cardiovascular: regular rate, rhythm, no gallop, no murmur Abdomen: normal bowel sounds, non tender, soft, no organomegaly Extremities: no pedal edema Neurologic/Psychiatric: alert, oriented x 3, + pertinent finding (minimal motor weakness left arm/leg) Skin: + pertinent finding (chronic stasis changes/hemosiderin changes on both legs) Laboratory Results Last 24 Hours Test 02/12/18 22:39 02/13/18 05:07 02/13/18 09:45 02/13/18 11:20 Phosphorus Level 3.7 mg/dl Magnesium Level 1.8 mg/dl Total Creatine Kinase 220 U/L Creatine Kinase MB 5.4 ng/ml Creatine Kinase MB Ratio 2.5 Troponin I < 0.015 ng/ml < 0.015 ng/ml < 0.015 ng/ml Sodium Level 141 mmol/L Potassium Level 3.8 mmol/L Chloride Level 113 mmol/L Carbon Dioxide Level 23 mmol/L Anion Gap 5.0 mmol/L Blood Urea Nitrogen 21 mg/dl Creatinine 1.30 mg/dl Est Creatinine Clear Calc Drug Dose 43.7 ml/min Estimated GFR () 50.6 Estimated GFR (Non- 43.6 BUN/Creatinine Ratio 16.1 Random Glucose 105 mg/dl Calcium Level 7.5 mg/dl Assessment and Plan 63yo female with: 1. c. diff colitis - start vancomycin 125mg QID and Rx for 14 days. Probiotics. If diarrhea frequency continues to be severe consider bile acid sequestrant. Contact isolation. BMP in am. 2. acute kidney injury - 2nd to significant dehydration from #1. Improving. BMP am. Will give 1 additional liter of NS tonight. 3. CKD stage 3 - creatinine has approached baseline. 4. hematuria & proteinuria on u/a - this will need to be repeated later in the admission. No casts to suggest GN. 5. h/o stroke - cont asa for secondary stroke prevention. 6. h/o Non-hodgkins lymphoma - noted. 7. h/o SCC of the Lung - noted. 8. cirrhosis of the liver - appears compensated. 9. Factor II deficiency with h/o DVT - takes lovenox daily presumably for such. anti-10a level tomorrow after AM dose (check 4 hours later). 10. chronic pain syndrome - continue outpatient meds. 11. DVT proph - lovenox 40mg daily. 12. FEN - 1 additional liter of fluids tonight; repeat BMP am. 13. chronic, recurrent LE cellulitis - noted; takes doxycycline & keflex chronically; would hold these while hospitalized and resume at discharge. PT eval to ensure safe for home Continued [facility] stay due to: multiple IV medications needed Discharge planning: home
[2018-02-13 22:31] VITALS: BP 100/66; PULSE 70; TEMP 36.5; O2SAT 91
[2018-02-13] MEDS: TOPIRAMATE 100 MG TAB PO SCH (22:48)
[2018-02-13] MEDS: CLONAZEPAM 1 MG TAB PO PRN (22:56)
[2018-02-13] MEDS: QUETIAPINE FUMARATE 200 MG TAB PO SCH (23:37)
[2018-02-14] MEDS: VANCOMYCIN HCL 125 MG/2.5ML SOLN PO SCH ×3 (05:33→16:43)
[2018-02-14] MEDS: RASPBERRY SYRUP 5 ML UDP PO SCH ×3 (05:33→16:43)
[2018-02-14 07:01] LABS: HEMATOCRIT 32.4 % (37-47); HEMOGLOBIN 10.4 g/dL (12.0-16.0); MEAN CELL VOLUME 101.6 fL (80-100); MEAN CORPUSCULAR HEMOGLOBIN 32.6 pg (25-34); MEAN CORPUSCULAR HGB CONC 32.1 g/dl (32-36); MEAN PLATELET VOLUME 9.7 fL (7.4-10.4); PLATELET COUNT 106 K/uL (130-400); RED CELL DISTRIBUTION WIDTH CV 14.5 % (11.5-14.5); RED CELL DISTRIBUTION WIDTH SD 53.9 fL (36.4-46.3); WHITE BLOOD COUNT 5.37 K/uL (4.8-10.8)
[2018-02-14 07:36] LABS: CALCIUM 7.8 mg/dl (8.5-10.1); CREATININE 1.16 mg/dl (0.60-1.20); POTASSIUM 4.3 mmol/L (3.5-5.1)
[2018-02-14 07:56] VITALS: BP 97/64; PULSE 77; TEMP 36.4; O2SAT 96
[2018-02-14] MEDS ORDERED: FENTANYL PATCH REMOVE & WASTE SCH (07:59)
[2018-02-14] MEDS ORDERED: FENTANYL 75 MCG/HR TDSY TD SCH (08:00)
[2018-02-14] MEDS: ASPIRIN 81 MG CHEW PO SCH (08:26)
[2018-02-14] MEDS: OXYCODONE HCL 20 MG TABCR (OXYCONTIN) PO SCH ×2 (08:26→20:21)
[2018-02-14] MEDS: GABAPENTIN 400 MG CAP PO SCH ×3 (08:27→20:22)
[2018-02-14] MEDS: METOPROLOL SUCC 50MG EXT REL TAB PO SCH (08:27)
[2018-02-14] MEDS: METHOCARBAMOL 750 MG TAB PO SCH ×2 (08:27→20:22)
[2018-02-14] MEDS: CETIRIZINE HCL 10 MG TAB PO SCH (08:27)
[2018-02-14] MEDS: BECLOMETHASONE DIP HFA 80 MCG 8.7G INH INH SCH ×2 (08:27→20:23)
[2018-02-14] MEDS: LACTOBACILLUS ACIDOPHILUS (FLORANEX) TAB PO SCH ×3 (08:27→16:44)
[2018-02-14] MEDS: ENOXAPARIN 40 MG/0.4 ML SYR SQ SCH (08:28)
[2018-02-14] MEDS: CHECK FENTANYL PATCH PLACEMENT SCH ×2 (08:28→16:00)
[2018-02-14 08:32] VITALS: BP 110/72; PULSE 76
[2018-02-14 09:54] VITALS: O2SAT 96
[2018-02-14] MEDS: OXYCODONE HCL IR 5 MG TAB (IMMEDIATE RELEASE) PO PRN ×2 (11:53→16:23)
[2018-02-14 15:51] VITALS: BP 106/71; PULSE 76; TEMP 36.3; O2SAT 91
[2018-02-14 16:00] VITALS: O2SAT 91
--- NOTE | 2018-02-14 16:06 | Pharmacy Progress Note ---
Pharmacy Progress Note Date of Service Feb 14, 2018. Progress Note Xa ordered for today, per protocol, after discussion w/ Dr. Veliz yesterday since this is one of our anticoagulation clinic patients and was in [place]. SCr has significantly improved today; Xa = 0.[address] Veliz - okay with level. No changes necessary. Please let clinical pharmacy service know if we can be of further assistance.
[2018-02-14] MEDS: CLONAZEPAM 1 MG TAB PO PRN (22:35)
[2018-02-14] MEDS: QUETIAPINE FUMARATE 200 MG TAB PO SCH (22:36)
[2018-02-14] MEDS: TOPIRAMATE 100 MG TAB PO SCH (22:36)
--- NOTE | 2018-02-14 23:11 | Progress Note ---
Subjective Date of Service: Feb 14, 2018. Subjective Pt evaluation today including: conversation w/ patient, physical exam, chart review, lab review, review of inpatient medication list Pain: minimal abd discomfort at times PO Intake: tolerating meals Voiding: no voiding problems no diarrhea since yesterday no nausea or emesis gets a little full/early satiety mild lower abdominal discomfort but intermittent ambulating w/o difficulty NO UTI symptoms such as dysuria, incontinence, frequency, foul smelling urine, etc Problem List Medical Problems: (1) Acute blood loss anemia Status: Acute (2) Acute blood loss anemia Status: Acute (3) Anemia Status: Acute (4) Anemia Status: Acute (5) Asthma Status: Chronic (6) ASTHMA, UNSPECIFIED Status: Chronic (7) ASTHMA, UNSPECIFIED Status: Chronic (8) Bronchitis Status: Chronic (9) Cellulitis Status: Chronic (10) Cellulitis Status: Chronic (11) Cellulitis of both lower extremities Status: Acute (12) Cellulitis of both lower extremities Status: Acute (13) Cellulitis of right leg Status: Acute (14) CHRONIC KIDNEY DISEASE, STAGE III (MODERATE) Status: Chronic (15) CHRONIC KIDNEY DISEASE, STAGE III (MODERATE) Status: Chronic (16) Contusion of left leg Status: Acute (17) Contusion of left leg Status: Acute (18) Contusion of leg, left Status: Acute (19) Contusion of leg, left Status: Acute (20) Contusion of leg, left Status: Acute (21) Emphysema Status: Chronic (22) Failure of outpatient treatment Status: Acute (23) Fall Status: Acute (24) Fall Status: Acute (25) Fever Status: Acute (26) Fever Status: Acute (27) Frequent falls Status: Chronic (28) Frequent falls Status: Chronic (29) History of malignant lymphoma Status: Chronic (30) HYDRONEPHROSIS Status: Chronic (31) HYDRONEPHROSIS Status: Chronic (32) Hypertension Nos Status: Chronic (33) Hypertension Nos Status: Chronic (34) Hypotension Status: Acute (35) Hypotension Status: Acute (36) Hypotension Status: Acute (37) Hypotension Status: Acute (38) Hypotension Status: Acute (39) Hypoxia Status: Acute (40) Hypoxia Status: Acute (41) HYPTNSV CHR KID DIS, UNSPEC, 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 (42) HYPTNSV CHR KID DIS, UNSPEC, 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 (43) Left leg cellulitis Status: Acute (44) Lymphangitis, acute, lower leg Status: Acute (45) Orthostatic hypotension Status: Acute (46) Orthostatic hypotension Status: Acute (47) Pancytopenia Status: Chronic (48) Pneumonia Status: Chronic (49) Rash and nonspecific skin eruption Status: Acute (50) Rash and nonspecific skin eruption Status: Acute (51) Sepsis Status: Acute (52) Sepsis Status: Acute (53) Stroke Status: Acute (54) Stroke Status: Acute (55) UTI (lower urinary tract infection) Status: Acute (56) UTI (lower urinary tract infection) Status: Acute (57) UTI (lower urinary tract infection) Status: Acute (58) UTI (urinary tract infection) Status: Acute (59) UTI (urinary tract infection) Status: Acute (60) Vomiting Status: Acute Social History Problems: (1) Hepatitis C Status: Chronic (2) Hepatitis C Status: Chronic Review of Systems Constitutional: No fever Respiratory: No shortness of breath Cardiac: No chest pain Abdomen: + see HPI, No GI bleeding Objective Vital Signs Date Time Temp Pulse Resp B/P (MAP) Pulse Ox O2 Delivery O2 Flow Rate FiO2 02/14/18 16:00 91 Room Air 02/14/18 15:51 36.3 76 20 106/71 (83) 91 Room Air 02/14/18 09:54 96 02/14/18 08:32 76 110/72 (85) 02/14/18 08:00 Room Air 02/14/18 07:56 36.4 77 16 97/64 (75) 96 Nasal Cannula 2.0 02/14/18 00:00 Room Air Physical Exam General Appearance: no apparent distress ENT: pharynx normal Neck: no JVD Respiratory/Chest: lungs clear, no respiratory distress, no accessory muscle use Cardiovascular: regular rate, rhythm, no gallop, no murmur Abdomen: normal bowel sounds, non tender, soft, no organomegaly, + distended ( mild) Extremities: no pedal edema Neurologic/Psychiatric: alert, oriented x 3 Laboratory Results Last 24 Hours Test 02/14/18 06:37 02/14/18 12:13 White Blood Count 5.37 K/uL Red Blood Count 3.19 M/uL Hemoglobin 10.4 g/dL Hematocrit 32.4 % Mean Corpuscular Volume 101.6 fL Mean Corpuscular Hemoglobin 32.6 pg Mean Corpuscular Hemoglobin Concent 32.1 g/dl RDW Standard Deviation 53.9 fL RDW Coefficient of Variation 14.5 % Platelet Count 106 K/uL Mean Platelet Volume 9.7 fL Sodium Level 142 mmol/L Potassium Level 4.3 mmol/L Chloride Level 116 mmol/L Carbon Dioxide Level 21 mmol/L Anion Gap 5.0 mmol/L Blood Urea Nitrogen 16 mg/dl Creatinine 1.16 mg/dl Est Creatinine Clear Calc Drug Dose 49.0 ml/min Estimated GFR () 58.0 Estimated GFR (Non- 50.1 BUN/Creatinine Ratio 14.1 Random Glucose 96 mg/dl Calcium Level 7.8 mg/dl Heparin Anti-Xa Act, Low Molec Wt 0.34 IU/ML Assessment and Plan 63yo female with: 1. c. diff colitis - improved. Day #2 vancomycin 125mg QID x 14 days. Outpatient cost for 12 more days of Rx -- $12. Cont probiotics. Contact isolation. BMP in am. Low fiber diet. 2. acute kidney injury - 2nd to significant dehydration from #1. Resolved. BMP am. Stop fluids; she is hydrating well on her own. 3. CKD stage 3 - creatinine at baseline. 4. hematuria & proteinuria on u/a - No casts to suggest GN. Creatinine at baseline. Repeat u/a in AM to re-evaluate. 5. h/o stroke - cont asa for secondary stroke prevention. 6. h/o Non-hodgkins lymphoma - noted. 7. h/o SCC of the Lung - noted. 8. cirrhosis of the liver - appears compensated. 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 anti-10a level is therapeutic at 0.3. 10. chronic pain syndrome - continue outpatient meds. 11. DVT proph - lovenox 40mg daily. 12. FEN - lytes stable, low fiber diet (tolerating this despite #1), BMP am. 13. chronic, recurrent LE cellulitis - noted; takes doxycycline & keflex chronically; can resume tomorrow. 14. positive urine cx - patient w/o signs/symptoms of UTI. This is likely asymptomatic bacteriuria - would not Rx at this time. 15. h/o asthma (or COPD) - stable on home inhalers. Lung exam stable/normal. PT eval - has been cleared for home hopefully d/c tomorrow Discharge planning: home
[2018-02-14 23:48] VITALS: BP 118/71; PULSE 71; TEMP 36.3; O2SAT 97
[2018-02-15] MEDS: VANCOMYCIN HCL 125 MG/2.5ML SOLN PO SCH ×4 (01:03→17:11)
[2018-02-15] MEDS: RASPBERRY SYRUP 5 ML UDP PO SCH ×4 (01:03→17:11)
[2018-02-15] MEDS: CHECK FENTANYL PATCH PLACEMENT SCH ×3 (01:04→15:40)
[2018-02-15] MEDS: OXYCODONE HCL IR 5 MG TAB (IMMEDIATE RELEASE) PO PRN ×2 (06:07→12:57)
[2018-02-15 06:17] LABS: MEAN CORPUSCULAR HGB CONC 32.6 g/dl (32-36); MEAN PLATELET VOLUME 9.7 fL (7.4-10.4); PLATELET COUNT 128 K/uL (130-400)
[2018-02-15 06:31] LABS: HEMATOCRIT 33.1 % (37-47); HEMOGLOBIN 10.8 g/dL (12.0-16.0); MEAN CELL VOLUME 102.2 fL (80-100); MEAN CORPUSCULAR HEMOGLOBIN 33.3 pg (25-34); RED CELL DISTRIBUTION WIDTH CV 14.6 % (11.5-14.5); RED CELL DISTRIBUTION WIDTH SD 54.6 fL (36.4-46.3); WHITE BLOOD COUNT 5.83 K/uL (4.8-10.8)
[2018-02-15 06:46] LABS: CALCIUM 7.9 mg/dl (8.5-10.1); CREATININE 1.36 mg/dl (0.60-1.20); POTASSIUM 4.1 mmol/L (3.5-5.1)
[2018-02-15 07:53] VITALS: BP 99/64; PULSE 70; TEMP 36.4; O2SAT 98
[2018-02-15] MEDS ORDERED: DOXYCYCLINE HYCLATE 100 MG CAP PO SCH (08:00)
[2018-02-15] MEDS ORDERED: CEPHALEXIN MONOHYDRATE 500 MG CAP PO SCH (08:00)
[2018-02-15] MEDS: ASPIRIN 81 MG CHEW PO SCH (08:39)
[2018-02-15] MEDS: OXYCODONE HCL 20 MG TABCR (OXYCONTIN) PO SCH (08:39)
[2018-02-15] MEDS: LACTOBACILLUS ACIDOPHILUS (FLORANEX) TAB PO SCH ×3 (08:40→17:10)
[2018-02-15] MEDS: BECLOMETHASONE DIP HFA 80 MCG 8.7G INH INH SCH (08:40)
[2018-02-15] MEDS: GABAPENTIN 400 MG CAP PO SCH ×2 (08:40→12:55)
[2018-02-15] MEDS: CETIRIZINE HCL 10 MG TAB PO SCH (08:41)
[2018-02-15] MEDS: METHOCARBAMOL 750 MG TAB PO SCH (08:41)
[2018-02-15] MEDS: METOPROLOL SUCC 50MG EXT REL TAB PO SCH (08:42)
[2018-02-15] MEDS: ENOXAPARIN 40 MG/0.4 ML SYR SQ SCH (08:42)
[2018-02-15 09:35] VITALS: BP 112/76
[2018-02-15] MEDS ORDERED: SULFAMETHOXAZOLE/TRIMETHOPRIM DS 800/160MG TAB PO ONE (13:41)
[2018-02-15] MEDS ORDERED: DIPH1TAB87 PO (13:47)
[2018-02-15] MEDS ORDERED: ASPCH81 PO (13:47)
[2018-02-15] MEDS ORDERED: SULF800T23 PO (13:47)
[2018-02-15] MEDS ORDERED: VANC1CAP19 PO (13:47)
--- NOTE | 2018-02-15 13:50 | Discharge Instructions ---
Discharge Instructions Date of Service Feb 15, 2018. Admission Reason for Admission: Diarrhea Discharge Discharge Diagnosis / Problem: Clostridium difficile colitis Discharge Goals Goal(s): Improve disease control, Diagnostic testing, Therapeutic intervention Activity Recommendations Activity Limitations: resume your previous activity Shower/Bathe: no limitations Instructions / Follow-Up Instructions / Follow-Up Please finish out the course of antibiotics for the Clostridium difficile diarrhea. Continue taking your probiotics. You were found to have bacteria in your urine and due to your upcoming ureteral stent change out, you will be treated with an antibiotic separately for this urinary tract infection. Please follow-up with your PCP within 1-2 weeks as scheduled for you. . Current Hospital Diet Patient's current hospital diet: Low Fiber Diet Discharge Diet Recommended Diet: Low Fiber Diet Procedures Procedures Performed: CT abdomen/pelvis Chest x-ray Pending Studies Studies pending at discharge: no Medical Emergencies . Who to Call and When: Medical Emergencies: If at any time you feel your situation is an emergency, please call 911 immediately. . Non-Emergent Contact Non-Emergency issues call your: Primary Care Provider Call Non-Emergent contact if: you have a fever, temperature is above 100.5, your pain is not controlled, your pain is worsening, your pain is unusual for you, your pain is concerning you, you have any medication questions . . "Provider Documentation" section prepared by July Garrett. .
--- NOTE | 2018-02-15 13:58 | Discharge Summary ---
Discharge Summary Date of Service Feb 15, 2018. Discharge Summary Admission Date: Feb 13, 2018 at 01:37 Discharge Date: Feb 15, 2018 Discharge Disposition: Home Principal Diagnosis: Clostridium difficile colitis Problems/Secondary Diagnoses: (1) Asthma Status: Chronic (2) ASTHMA, UNSPECIFIED Status: Chronic (3) ASTHMA, UNSPECIFIED Status: Chronic (4) Bronchitis Status: Chronic (5) Cellulitis Status: Chronic (6) Cellulitis Status: Chronic (7) CHRONIC KIDNEY DISEASE, STAGE III (MODERATE) Status: Chronic (8) CHRONIC KIDNEY DISEASE, STAGE III (MODERATE) Status: Chronic (9) Emphysema Status: Chronic (10) Frequent falls Status: Chronic (11) Frequent falls Status: Chronic (12) History of malignant lymphoma Status: Chronic (13) HYDRONEPHROSIS Status: Chronic (14) HYDRONEPHROSIS Status: Chronic (15) Hypertension Nos Status: Chronic (16) Hypertension Nos Status: Chronic (17) HYPTNSV CHR KID DIS, UNSPEC, 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 c. diff colitis - improved. Day #2 vancomycin 125mg QID x 14 days. Outpatient cost for 12 more days of Rx -- $12. Cont probiotics. Contact isolation. BMP in am. Low fiber diet. 2. acute kidney injury - 2nd to significant dehydration from #1. Resolved. BMP am. Stop fluids; she is hydrating well on her own. 3. CKD stage 3 - creatinine at baseline. 4. hematuria & proteinuria on u/a - No casts to suggest GN. Creatinine at baseline. Repeat u/a in AM to re-evaluate. 5. h/o stroke - cont asa for secondary stroke prevention. 6. h/o Non-hodgkins lymphoma - noted. 7. h/o SCC of the Lung - noted. 8. cirrhosis of the liver - appears compensated. 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 anti-10a level is therapeutic at 0.3. 10. chronic pain syndrome - continue outpatient meds. 11. DVT proph - lovenox 40mg daily. 12. FEN - lytes stable, low fiber diet (tolerating this despite #1), BMP am. 13. chronic, recurrent LE cellulitis - noted; takes doxycycline & keflex chronically; can resume tomorrow. 14. positive urine cx - patient w/o signs/symptoms of UTI. This is likely asymptomatic bacteriuria - would not Rx at this time. 15. h/o asthma (or COPD) - stable on home inhalers. Lung exam stable/normal. PT eval - has been cleared for home hopefully d/c tomorrow Discharge planning: home <Electronically signed by Leeroy Mcelroy MD> Signed: 02/14/182310 Signed: The status of this report is Signed * If report status is Draft, the document has not been finalized by the responsible provider. Addendum: 02/14/184 Addendum: Leeroy Mcelroy MD on 02/14/18 @ 23:12 Addendum Section abnormal EKG at presentation - EKG from admission showed new ST segment changes. Trop x 3 negative. echo wnl with normal LV function/wall motion. cardiology consult performed - no Rx/additional work-up at this time due to absence of cardiac symptoms. Bilateral ureteral stents Recurrent UTIs Immunizations: Have You Had Influenza Vaccine: Yes Influenza Vaccine Date: May 22, 2011 History of Tetanus Vaccine?: utd Tetanus Immunization Date: Jul 03, 2012 History of Pneumococcal: Yes Pneumococcal Date: May 22, 2011 History of Hepatitis B Vaccine: Unknown Procedures: CT abdomen/pelvis Chest x-ray Echocardiogram Consultations: Cardiology Medication Reconciliation New Medications: Diphenhydramine Hcl (Benadryl Allergy) 25 Mg Tab 25 MG PO BID for 6 Days to be taken 1 hour prior to taking Bactrim for UTI Sulfa/Trimethoprim (Bactrim Ds 800MG/160MG) Tab 1 TAB PO BID, #13 TAB Vancomycin Hcl (Vancocin Hcl) 125 Mg Cap 125 MG PO QID for 11 Days, #44 CAP Aspirin (Aspirin Low Strength) 81 Mg Chew 81 MG PO DAILY for 30 Days, #30 OTC Continued Medications: Albuterol Sulfate (Proair Respiclick) 108 Mcg/Act Aer 2 PUFFS INH Q4H PRN for SOB/Wheezing B-Complex Vitamins (Vitamin B Complex) 1 Tab Tab 1 TAB PO QAM Beclomethasone Dip (Qvar) 80 Mcg/Act Aer 2 PUFFS INH BID Butorphanol Tartrate (Butorphanol Tartrate) 25 Sprays/2.5 Ml Ephraim 1 SPRAY NA DAILY PRN for Migraine Calcium (Calcium) 600 Mg Tab 1 TAB PO QAM Cephalexin Monohydrate (Keflex) 500 Mg Cap 500 MG PO QAM, CAP Cetirizine (Zyrtec) 10 Mg Tab 10 MG PO QAM, TAB Clonazepam (Klonopin) 1 Mg Tab 1 MG PO HS, TAB Coenzyme Q10 (Ubidecarenone) (Co Q10) 50 Mg Cap 200 MG PO QAM, CAP Denosumab (Prolia) 60 Mg/1 Ml Inj 60 MG INJ Q6 MONTHS LAST DOSE SEP 2017 Doxycycline (Monohydrate) (Doxycycline) 100 Mg Cap 100 MG PO QDL Enoxaparin (Lovenox) 40 Mg/0.4 Ml Inj 40 MG SQ QAM Ergocalciferol (Vitamin D 59381 Unit) 50,000 Unit Cap 1 TAB PO WK, CAP GIVE ON SUNDAY Fentanyl (Fentanyl) 75 Mcg/Hr Dis 75 MCG TOP Q72H Folic Acid (Folvite) 1 Mg Tab 1 MG PO QAM, TAB Gabapentin (Gabapentin) 400 Mg Cap 400 MG PO TID Home O2 Therapy (Oxygen) Unknown Strength Gas 2 LITER NA HS, BTL Magnesium Oxide (Magnesium) 400 Mg Tab 400 MG PO BID Methocarbamol (Robaxin) 750 Mg Tab 750 MG PO BID Metoprolol Succinate (Toprol Xl) 50 Mg Tab 50 MG PO QAM Multiple Vitamin (Multivitamin) 1 Tab Tab 1 TAB PO QAM, TAB Oxycodone Hcl (Oxycontin) 20 Mg Tab 1 TAB PO BID Oxycodone Immediate Rel Tab (Roxicodone Ir) 5 Mg Tab 5 MG PO Q2H PRN for Severe Pain, TAB moderate pain Potassium Chloride Microencaps (Potassium Chloride Er) 20 Meq Tab 20 MEQ PO QAM Probiotic Product (Florajen3) 1 Cap Cap 1 CAP PO QAM Quetiapine Fumarate (Seroquel) 200 Mg Tab 200 MG PO HS, TAB Topiramate (Topamax) 100 Mg Tab 100 MG PO HS Triamcinolone Acet (Aristocort 0.1%) 90 Appln/30 Gm Cr 1 APPLN TOP BID PRN for Psoriasis Vitamin E (Vitamin E) 400 Unit Tab 1 TAB PO QAM Discontinued Medications: Docusate Sodium (Colace) 100 Mg Cap 1 CAP PO TID Discharge Exam Patient feeling well. No further diarrhea in the last 2 days. Has mild lower abdominal pain that is present. No bleeding in the stool. She has no dysuria or urinary frequency, however the RN reports that her urine appears very cloudy. Patient reports she is having a ureteral stent change out in the near future. She is concerned about urinary tract infection. Afebrile. Tolerating a low fiber diet, no nausea or vomiting. Review of Systems: Constitutional: No fever, No chills Eyes: No problem reported ENT: No problem reported Respiratory: No shortness of breath Cardiovascular: No chest pain Abdomen: + pain, No nausea, No vomiting, No diarrhea, No constipation, No GI bleeding Musculoskeletal: No problem reported Genitourinary - Female: No problem reported Neurologic: No problem reported Psychiatric: No problem reported Endocrine: No problem reported Hematologic / Lymphatic: No problem reported Integumentary: No problem reported Physical Exam: General Appearance: WD/WN, no apparent distress, + obese Eyes: normal inspection, sclerae normal ENT: hearing grossly normal, pharynx normal Neck: supple, no adenopathy, trachea midline Respiratory/Chest: lungs clear, normal breath sounds, no respiratory distress, no accessory muscle use Cardiovascular: regular rate, rhythm, no edema, no gallop, no murmur Abdomen / GI: normal bowel sounds, soft, + pertinent finding (Mild tenderness to palpation in the lower abdomen and suprapubic region without guarding or rebound tenderness) Extremities: no calf tenderness, no pedal edema, + pertinent finding ( Chronic venous stasis changes, no edema) Neurologic/Psychiatric: no motor/sensory deficits, alert, normal mood/affect , oriented x 3 Skin: normal color, warm/dry, no rash Hospital Course 1. c. diff colitis - improved. Day #2 vancomycin 125mg QID x 14 days. Outpatient cost for 12 more days of Rx -- $12. Cont probiotics. Contact isolation. BMP in am. Low fiber diet. 2. acute kidney injury - 2nd to significant dehydration from #1. Resolved. BMP am. Stop fluids; she is hydrating well on her own. 3. CKD stage 3 - creatinine at baseline. 4. hematuria & proteinuria on u/a - No casts to suggest GN. Creatinine at baseline. Repeat u/a in AM to re-evaluate. 5. h/o stroke - cont asa for secondary stroke prevention. 6. h/o Non-hodgkins lymphoma - noted. 7. h/o SCC of the Lung - noted. 8. cirrhosis of the liver - appears compensated. 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 anti-10a level is therapeutic at 0.3. 10. chronic pain syndrome - continue outpatient meds. 11. DVT proph - lovenox 40mg daily. 12. FEN - lytes stable, low fiber diet (tolerating this despite #1), BMP am. 13. chronic, recurrent LE cellulitis - noted; takes doxycycline & keflex chronically; can resume tomorrow. 14. positive urine cx - patient w/o signs/symptoms of UTI. This is likely asymptomatic bacteriuria - would not Rx at this time. 15. h/o asthma (or COPD) - stable on home inhalers. Lung exam stable/normal. PT eval - has been cleared for home abnormal EKG at presentation - EKG from admission showed new ST segment changes. Trop x 3 negative. echo wnl with normal LV function/wall motion. cardiology consult performed - no Rx/additional work-up at this time due to absence of cardiac symptoms. Bilateral ureteral stents Recurrent UTIs Total Time Spent: Greater than 30 minutes This includes examination of the patient, discharge planning, medication reconciliation, and communication with other providers. Discharge Instructions Please refer to the electronic Patient Visit Report (Discharge Instructions) for additional information. Follow-Up With PCP within 1-2 weeks Additional Copies To Reynold Villegas M.D.
[2018-02-15 14:52] VITALS: BP 112/76; PULSE 70; TEMP 36.4; O2SAT 98
[2018-02-15] MEDS ORDERED: SULFAMETHOXAZOLE/TRIMETHOPRIM DS 800/160MG TAB PO SCH (21:00)
== END 2018-02-15 18:26 | disposition home or self-care (01) | DRG 372 ==
LOC: C.EDB 19:40 → C.4E 02-13 01:37 → EDBEDREQ 02-13 01:38 → ENRESERV 02-13 01:52
PROVIDERS: ADMIT Internal Medicine; ATTEND Family Medicine
DX: A04.72 Enterocolitis due to Clostridium difficile, not specified as recurrent (principal); D68.2 Hereditary deficiency of other clotting factors; N17.9 Acute kidney failure, unspecified; N13.30 Unspecified hydronephrosis; L03.116 Cellulitis of left lower limb; D62 Acute posthemorrhagic anemia; J45.909 Unspecified asthma, uncomplicated; Z88.9 Allergy status to unspecified drugs, medicaments and biological substances; Z86.718 Personal history of other venous thrombosis and embolism; J43.9 Emphysema, unspecified; Z86.14 Personal history of Methicillin resistant Staphylococcus aureus infection; Z85.72 Personal history of non-Hodgkin lymphomas; Z86.19 Personal history of other infectious and parasitic diseases; Z88.1 Allergy status to other antibiotic agents; Z88.2 Allergy status to sulfonamides; N18.3 Chronic kidney disease, stage 3 (moderate); Z86.73 Personal history of transient ischemic attack (TIA), and cerebral infarction without residual deficits; I12.9 Hypertensive chronic kidney disease with stage 1 through stage 4 chronic kidney disease, or unspecified chronic kidney disease; G89.4 Chronic pain syndrome; K74.60 Unspecified cirrhosis of liver; I25.10 Atherosclerotic heart disease of native coronary artery without angina pectoris

== ENCOUNTER → 2018-02-21 | Day surgery (SDC) | payer BC ==
[2018-02-06 13:16] VITALS: BMI 35.0
[2018-02-06 15:10] LABS: BASO % 0.2 %; BASO ABS # 0.02 K/uL (0-0.2); EOS % 1.3 %; EOS ABS # 0.11 K/uL (0-0.5); HEMATOCRIT 36.7 % (37-47); HEMOGLOBIN 11.8 g/dL (12.0-16.0); IG# 0.05 K/uL (0.00-0.02); LYMPH ABS # 2.21 K/uL (1.2-3.4); MEAN CELL VOLUME 102.2 fL (80-100); MEAN CORPUSCULAR HEMOGLOBIN 32.9 pg (25-34); MEAN CORPUSCULAR HGB CONC 32.2 g/dl (32-36); MEAN PLATELET VOLUME 10.2 fL (7.4-10.4); MONO % 15.6 %; MONO ABS # 1.28 K/uL (0.11-0.59); NEUT % 55.3 %; NEUT ABS # 4.53 K/uL (1.4-6.5); PLATELET COUNT 127 K/uL (130-400); RED CELL DISTRIBUTION WIDTH CV 14.2 % (11.5-14.5); RED CELL DISTRIBUTION WIDTH SD 53.4 fL (36.4-46.3)
[2018-02-06 15:18] LABS: CALCIUM 9.1 mg/dl (8.5-10.1); CREATININE 1.4 mg/dl (0.60-1.20); POTASSIUM 5.1 mmol/L (3.5-5.1)
[~2018-02-21] VITALS: Ht 154.9 cm; Wt 84.9 kg
[~2018-02-21] MED LIST changes: +ASPCH81 PO; +ATROPINE SULFATE 0.1 MG/ML 5ML SYR IV PRN; +COEN1CAP28 PO; +Cysto-Conray II 17.2% 250ML BOTTLE ONE; +DIPH1TAB87 PO; -DOCU-94 PO; +EpHEDrine SULFATE INJ 50 MG/ML AMP IV PRN; +FENTANYL CITRATE INJ 50 MCG/1 ML 2 ML VIAL IV PRN; +FENTANYL CITRATE INJ 50 MCG/1 ML 2 ML VIAL ONE; +FOLI1TAB8 PO; +HYDROmorphone INJ 2 MG/ML SYR/VIAL IV PRN; +LACTATED RINGER'S 1000ML 1,000 ML IV SCH; +LIDOCAINE HCL 2% 2 ML VIAL (20MG/ML) ONE; +MIDAZOLAM HCL 1 MG/ML 2ML VIAL ONE; +MULTTAB58 PO; +ONDANSETRON INJ 2 MG/ML 2 ML VIAL IV PRN; +OXYCODONE/ACETAMINOPHEN 5-325 TAB PO PRN; +PHENAZOPYRIDINE HCL 200 MG TAB PO PRN; +PHENYLEPHRINE 100MCG/ML 5ML SYR IV PRN; +PHENYLEPHRINE 100MCG/ML 5ML SYR ONE; +PROMETHAZINE HCL INJ 12.5 MG in SODIUM CHLORIDE 0.9% 50ML 50 ML IV PRN; +PROPOFOL IV EMULSION 10 MG/ML 20 ML VIAL ONE; +QUET1TAB10 PO; +SULF800T23 PO; +TRMCR130WC TOP; +VANC1CAP19 PO
[2018-02-21 12:50] VITALS: BP 136/64; PULSE 102; TEMP 37.5; O2SAT 91; Ht 154.9 cm; Wt 84.9 kg
--- NOTE | 2018-02-21 16:22 | Discharge Instructions ---
Discharge Instructions Date of Service February 21, 2018. Admission Reason for Admission: Hydronephrosis Discharge Discharge Diagnosis / Problem: Bilateral hydro with indwelling stents s/p stent exchange Discharge Goals Goal(s): Improve disease control, Therapeutic intervention Activity Recommendations Activity Limitations: as noted below Lifting Limitations: no more than 25 pounds, gradually increase as tolerated Exercise/Sports Limitations: rest today, gradually increase as tolerated May Resume Sexual Activity: when tolerated Shower/Bathe: no limitations . Instructions / Follow-Up Instructions / Follow-Up In office as scheduled Current Hospital Diet Patient's current hospital diet: Discharge Diet Recommended Diet: Regular Diet Procedures Procedures Performed: Cystoscopy, bilateral retrograde pyelography, bilateral ureteral stent exchange Pending Studies Studies pending at discharge: no Medical Emergencies . Who to Call and When: Medical Emergencies: If at any time you feel your situation is an emergency, please call 911 immediately. . Non-Emergent Contact Non-Emergency issues call your: Urologist Call Non-Emergent contact if: you have a fever, temperature is above 101, your pain is not controlled, your pain is worsening, your pain is unusual for you, your pain is concerning you, you have any medication questions . . "Provider Documentation" section prepared by Theo Barrett. .
--- NOTE | 2018-02-21 16:48 | [facility] Operative Report ---
Operative Report Operative Date February 21, 2018. Pre-Operative Diagnosis History of bilateral hydronephrosis, renal failure managed with stents Post-Operative Diagnosis History of bilateral hydronephrosis, renal failure managed with stents Procedure(s) Performed Cystoscopy, Bilateral Ureteral Stent Exchange, Retrograde Pyelogram Surgeon Dr. Sean Barrett Estimated Blood Loss 0cc Findings Good stent position bilaterally on fluoroscopy. Specimens None Drains 6 [place] 24 cm stents bilaterally, Cook firm Anesthesia Type MAC Complication(s) none Disposition no Recovery Room / PACU Indications 63-year-old female managed with regular stent exchanges for history of bilateral hydronephrosis and renal failure here for a scheduled stent exchange. She has been recently diagnosed with C. difficile colitis and is on numerous antibiotics. She reports her diarrhea is improved. No preoperative antibiotics provided today due to her numerous other agents for coverage. Please see H&P for further details. SCDs used for DVT prophylaxis. She is currently on a q. 5 month stent exchange schedule due to a history of stent failure near the end of her previous six-month changes. Description of Procedure Patient was properly identified and brought into the operative suite after identification for proper consent of the chart. Monitored anesthesia care with sedation was initiated and patient was prepped and draped in standard fashion for the full timeout procedure was followed. 22 [place] rigid cystoscope was placed in the bladder under direct visualization which was noted to have some mild to moderate inflammation, unchanged from previously. Pessary remains in good position. Right-sided stent was grasped and a sensor tip wire was advanced alongside the stent and up to the level of the right kidney under fluoroscopy. Stent was removed and a 5 [place] open-ended catheter was placed over the wire. Collecting system was opacified to assist with stent location and noted to be free of the patient's previously noted hydronephrosis. Sensor tip wire was replaced followed by a 6 [place] 24 cm double-J firm Cook ureteral stent with a full coil present at the level of the renal pelvis and a full coil present within the bladder. Procedure was repeated on the left-hand side with opacification of the collecting system and a lack of significant hydronephrosis. 6 [place] 24 cm double-J firm Cook ureteral stent was present with a full coil present at the level of the distal renal pelvis and a full coil present within the bladder. Bladder was drained and cystoscope was removed. Anesthesia was reversed the patient was transferred to the recovery room in stable condition. Follow-up instructions: No new prescriptions provided today. Outpatient follow- up is scheduled for postoperative check. Patient is instructed to contact our service should she note any fevers, chills, nausea, vomiting or other difficulties in the postoperative period. I attest to the content of the Intraoperative Record and any orders documented therein. Any exceptions are noted below.
[2018-02-21 16:55] VITALS: BP 124/59; PULSE 61; TEMP 36.8; O2SAT 97
--- NOTE | 2018-02-21 17:00 | DIAGNOSTIC IMAGING REPORT ---
RETROGRADE INCLUDES KUB CLINICAL HISTORY: 63 years-old Female presenting with CYSTOSCOPY, BILATERAL STENT EXCHANGE. TECHNIQUE: 5 fluoroscopic image(s) recorded as part of an intraoperative procedure. COMPARISON: CT from 02/12/2018. FINDINGS/IMPRESSION: A catheter was introduced into the right ureter and a right ureteral stent was placed. Subsequently a catheter was introduced into the left ureter. The left urinary collecting system was opacified with contrast, which was mildly dilated. A left ureteral stent was placed. Please see surgical report for further details. Dose area product (mGy.cm^2): 6993.7. Fluoroscopy time: 61.9 seconds. Number of fluoroscopic spot images: 0. Electronically signed by: Babar Kaur M.D. 02/21/2018 4:59 PM Dictated Date/Time: 02/21/2018 4:57 PM
--- NOTE | 2018-02-21 17:19 | Anesthesiology Progress Note ---
Anesthesia Post Op Note Date & Time February 21, 2018 at 17:19 Vital Signs Pain Intensity: 4 Vital Signs Past 12 Hours Date Time Temp Pulse Resp B/P (MAP) Pulse Ox O2 Delivery O2 Flow Rate FiO2 02/21/18 16:55 36.8 61 20 124/59 97 Room Air 02/21/18 12:50 37.5 102 20 136/64 (88) 91 Room Air Notes Mental Status: alert / awake / arousable, participated in evaluation Nausea / Vomiting: adequately controlled Pain: adequately controlled Airway Patency, RR, SpO2: stable & adequate BP & HR: stable & adequate Hydration State: stable & adequate Anesthetic Complications: no major complications apparent
[2018-02-21 17:25] VITALS: BP 99/55; PULSE 79; TEMP 36.8; O2SAT 94
== END | disposition home or self-care (01) ==
LOC: C.ACU 12:13
PROVIDERS: ATTEND Urology
DX: N13.30 Unspecified hydronephrosis (principal); N31.8 Other neuromuscular dysfunction of bladder; I42.9 Cardiomyopathy, unspecified; N18.3 Chronic kidney disease, stage 3 (moderate); J44.9 Chronic obstructive pulmonary disease, unspecified; F32.9 Major depressive disorder, single episode, unspecified; E78.5 Hyperlipidemia, unspecified; K21.9 Gastro-esophageal reflux disease without esophagitis; D68.8 Other specified coagulation defects; I12.9 Hypertensive chronic kidney disease with stage 1 through stage 4 chronic kidney disease, or unspecified chronic kidney disease; D64.9 Anemia, unspecified; B19.20 Unspecified viral hepatitis C without hepatic coma; Z83.3 Family history of diabetes mellitus; Z82.49 Family history of ischemic heart disease and other diseases of the circulatory system; Z88.8 Allergy status to other drugs, medicaments and biological substances; Z91.041 Radiographic dye allergy status; Z82.2 Family history of deafness and hearing loss; Z86.718 Personal history of other venous thrombosis and embolism; Z87.442 Personal history of urinary calculi; E66.9 Obesity, unspecified; Z85.72 Personal history of non-Hodgkin lymphomas; Z85.118 Personal history of other malignant neoplasm of bronchus and lung; Z92.21 Personal history of antineoplastic chemotherapy; Z88.1 Allergy status to other antibiotic agents; Z88.2 Allergy status to sulfonamides; Z79.899 Other long term (current) drug therapy

== ENCOUNTER → 2018-03-06 | Outpatient (CLI) | payer BC ==
[~2018-03-06] MED LIST changes: -ASPCH81 PO; -ATROPINE SULFATE 0.1 MG/ML 5ML SYR IV PRN; -Cysto-Conray II 17.2% 250ML BOTTLE ONE; -EpHEDrine SULFATE INJ 50 MG/ML AMP IV PRN; -FENTANYL CITRATE INJ 50 MCG/1 ML 2 ML VIAL IV PRN; -FENTANYL CITRATE INJ 50 MCG/1 ML 2 ML VIAL ONE; -HYDROmorphone INJ 2 MG/ML SYR/VIAL IV PRN; -LACTATED RINGER'S 1000ML 1,000 ML IV SCH; -LIDOCAINE HCL 2% 2 ML VIAL (20MG/ML) ONE; -MIDAZOLAM HCL 1 MG/ML 2ML VIAL ONE; -ONDANSETRON INJ 2 MG/ML 2 ML VIAL IV PRN; -OXYCODONE/ACETAMINOPHEN 5-325 TAB PO PRN; -PHENAZOPYRIDINE HCL 200 MG TAB PO PRN; -PHENYLEPHRINE 100MCG/ML 5ML SYR IV PRN; -PHENYLEPHRINE 100MCG/ML 5ML SYR ONE; -PROMETHAZINE HCL INJ 12.5 MG in SODIUM CHLORIDE 0.9% 50ML 50 ML IV PRN; -PROPOFOL IV EMULSION 10 MG/ML 20 ML VIAL ONE
== END | disposition home or self-care (01) ==
LOC: C.LAB1850 12:50
PROVIDERS: ATTEND Internal Medicine Rheumatology
DX: M81.0 Age-related osteoporosis without current pathological fracture (principal); E55.9 Vitamin D deficiency, unspecified; K90.0 Celiac disease

== ENCOUNTER → 2018-06-14 | Outpatient (CLI) | payer BC ==
[~2018-06-14] MED LIST changes: +CLON1TAB10 PO; -CLON1TAB3 PO; -DIPH1TAB87 PO; +OXYC-737 PO; -OXYC1TAB3 PO; -QVRINH80 INH; -SULF800T23 PO; +SYMIN160 INH
[2018-06-14 18:14] LABS: HEMATOCRIT 31.9 % (37-47); MEAN CELL VOLUME 104.6 fL (80-100); MEAN CORPUSCULAR HEMOGLOBIN 32.8 pg (25-34); MEAN CORPUSCULAR HGB CONC 31.3 g/dl (32-36); MEAN PLATELET VOLUME 12.7 fL (7.4-10.4); PLATELET COUNT 73 K/uL (130-400); RED CELL DISTRIBUTION WIDTH CV 14.7 % (11.5-14.5); RED CELL DISTRIBUTION WIDTH SD 55.2 fL (36.4-46.3)
== END | disposition home or self-care (01) ==
LOC: C.LABBFT 14:12
PROVIDERS: ATTEND Physician Assistant Medical
DX: D64.9 Anemia, unspecified (principal)

== ENCOUNTER 2020-06-27 14:26 | Observation (INO) ==
--- NOTE | 2020-06-27 15:30 | Emergency Department Note ---
History of Present Illness General Chief complaint: Chest Pain Stated complaint: CHEST PAIN Time Seen by Provider: 06/27/20 15:02 Source: patient and family History of Present Illness Provider complaint: Chest pain Onset (ago): hour(s) Location: chest and left Radiation: back Pain Consistency: + now resolved Maximum Pain Intensity: 5 Quality: + other (Squeezing) Relieved By: + none Associated symptoms: + chest pain, + headaches (Chronic left-sided headaches) an d + shortness of breath; no cough, no fever/chills and no nausea/vomiting This is a 65-year-old female brought in by her son for evaluation of chest discomfort and shortness of breath. The patient started having symptoms sometime this afternoon. She has COPD and requires 2 L of oxygen daily. She felt like she needed more oxygen. He did turn up her oxygen and she did feel better. She then noticed some stiffness in her left arm and leg. She denies numbness or weakness but it felt stiff. As they were bringing her to the hospital her son noticed that she was either falling asleep or look like she is going to pass out. He went over to the backat and woke her up. She then stated that she had left-sided chest discomfort which she describes as a squeezing sensation. No associated diaphoresis or nausea. The chest discomfort resolved. She does state currently that she feels a hollow feeling in her right chest rating to her back. She states it is not the same discomfort she had earlier. She describes it as her chest feeling empty. She denies any fever, cough or cold symptoms, known exposure to COVID-19, abdominal pain, urinary symptoms, vomiting or diarrhea. She is on Lovenox daily as she has a prior history of DVT and lymphoma. 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 Finally she states that before her shortness of breath started she felt as if her heart rate was slowing down. Her son states that she has been very emotional and having nightmares and therefore had an MRI of her brain earlier this month which was within normal limits. Home Medications Home Medications Medication Instructions Recorded Confirmed Type Florajen3 1 cap PO QAM 07/16/18 06/27/20 History Prolia 60 mg SUBCUT Q6M 07/16/18 06/27/20 History butorphanol tartrate 1 spray INTRANASAL Q3H PRN 07/16/18 06/27/20 History cetirizine [Zyrtec] 10 mg PO QAM 07/16/18 06/27/20 History coenzyme Q10 [CoQ-10] 200 mg PO QAM 07/16/18 06/27/20 History folic acid 1 mg PO QAM 07/16/18 06/27/20 History magnesium oxide 400 mg PO QAM 07/16/18 06/27/20 History multivitamin 1 tab PO QAM 07/16/18 06/27/20 History triamcinolone acetonide 1 applic TOPICAL BID PRN 07/16/18 06/27/20 History vitamin B complex [B-Complex] 1 tab PO QAM 07/16/18 06/27/20 History calcium carbonate-vitamin D3 600 1 tab PO QPM 11/26/18 06/27/20 History mg (1,500 mg)-800 unit tablet cyanocobalamin (vitamin B-12) 1,000 mcg IM MONTHLY 02/10/19 06/27/20 History ferrous sulfate [iron] 325 mg PO QAM 02/10/19 06/27/20 History mirabegron 50 mg tablet,extended 50 mg PO HS #90 tab 08/20/19 06/27/20 Rx release 24 hr psyllium husk [Metamucil] 0.52 g PO QAM 08/28/19 06/27/20 History vitamin E 400 unit PO QAM 08/28/19 06/27/20 History budesonide-formoterol HFA 160 2 puff INHALATION BID #10.2 gm 09/15/19 06/27/20 Rx mcg-4.5 mcg/actuation aerosol inhaler albuterol sulfate 90 mcg/actuation 2 puff INHALATION QID PRN #8.5 gm 11/12/19 06/27/20 Rx aerosol inhaler vancomycin 125 mg capsule 125 mg PO 2XWK #30 cap 12/01/19 06/27/20 Rx methocarbamol 750 mg tablet See Rx Instructions .ROUTE 01/20/20 06/27/20 Rx .COMPLEX #60 tablet oxybutynin chloride 10 mg 10 mg PO QAM #90 tab 01/20/20 06/27/20 Rx tablet,extended release 24 hr rizatriptan 10 mg disintegrating See Rx Instructions PO .COMPLEX #9 02/09/20 06/27/20 Rx tablet tab topiramate 100 mg tablet 100 mg PO BID #60 tab 02/09/20 06/27/20 Rx ergocalciferol (vitamin D2) 1,250 50,000 units PO WEEKLY #12 cap 04/13/20 Rx mcg (50,000 unit) capsule gabapentin 400 mg capsule 400 mg PO DAILY cap 04/26/20 06/27/20 History lidocaine 5 % topical cream 1 appln TOP TID PRN #30 gm 05/14/20 06/27/20 Rx clonazepam 1 mg tablet 1 mg PO HS #30 tab 06/09/20 06/27/20 Rx metoprolol succinate 50 mg 50 mg PO QAM #30 tab 06/09/20 06/27/20 Rx tablet,extended release 24 hr potassium chloride 20 mEq 20 meq PO QAM #30 tab 06/09/20 06/27/20 Rx tablet,extended release enoxaparin 40 mg/0.4 mL See Rx Instructions SQ QAM 30 Days 06/10/20 06/27/20 Rx subcutaneous syringe #30 syr quetiapine 50 mg tablet 50 mg PO ONCE HS 30 Days #30 tab 06/10/20 06/27/20 Rx cephalexin 500 mg capsule 500 mg PO QAM #30 cap 06/16/20 06/27/20 Rx Medical Marijuana 1 dose PO DIRECTED PRN 06/27/20 06/27/20 History evlzwxyxhs-uovahnpualbow-yzsi See Rx Instructions .ROUTE 06/27/20 06/27/20 History .COMPLEX PRN doxycycline hyclate 100 mg PO QAM 06/27/20 06/27/20 History Allergies Allergy/AdvReac Type Severity Reaction Status Date / Time Iodinated Contrast Media Allergy Intermediate Hives Verified 06/27/20 16:01 iodine Allergy Intermediate HIVES Verified 06/27/20 16:01 levofloxacin Allergy Intermediate numbness/we Verified 06/27/20 16:01 akness pregabalin Allergy Intermediate fever?/?cher Verified 06/27/20 16:01 h strawberry Allergy Intermediate HIVES Verified 06/27/20 16:01 Sulfa (Sulfonamide Allergy Intermediate RASH/HIVES Verified 06/27/20 16:01 Antibiotics) allopurinol Allergy Mild rash Verified 06/27/20 16:01 venlafaxine Allergy Unknown UNKNOWN Verified 06/27/20 16:01 gluten AdvReac Severe Celiac Dz Verified 06/27/20 16:01 = GI symptoms adhesive AdvReac Intermediate red torn Verified 06/27/20 16:01 skin propoxyphene AdvReac Intermediate [employer]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 BAUM). CURRENTLY NOT ACTIVE. 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 Psoriasis Pulmonary emphysema Recurrent cellulitis Stroke 1996= DECREASED RIGHT SIDED SENSATION Thrombocytopenia CHRONIC Urge and stress incontinence Venous stasis Surgical History H/O bursectomy RIGHT KNEE History of bone marrow biopsy History of bronchoscopy History of carpal tunnel release LEFT History of cystoscopy most recent 10/27/2019 [place] Cystoscopy, Bilateral Retrograde, Bilateral Stent Exchange, Injection of Urethral Bulking Agent History of esophagogastroduodenoscopy (EGD) History of liver biopsy History of ureter stent MULTIPLE Hx of bladder repair surgery FOR PROLAPSE Hx of colonoscopy Hx of tonsillectomy Hx of tubal ligation Family History Unknown Heart disease Hypertension Mother Psoriasis Diabetes Social History Smoking Status: Former smoker Smoking End Date: 03/07/2011; Second Hand Exposure: No; Hx Alcohol Use: No Hx Substance Use: Yes Last Used Substance: Hours (ago) Last Used Substance Other:: Daily Substance Use Type Other:: AM and PM; medical marijuana Preferred Language: Citizen Of [place] Communication Ability: Effective Visual Impairment: No Limitations Nautical Instrument Mechanic Required: No Beliefs That Will Affect Care: None Current Living Situation: Family Current Living Situation Comment: Son and gf Feels Safe at Home: Yes Safety Concerns: Feels Safe At This Time Review of Systems See HPI for pertinent positives & negatives. and A total of 10 systems reviewed and were otherwise negative Physical Exam Vital Signs Vital Signs - 24 hr 06/27/20 14:44 06/27/20 15:45 06/27/20 15:48 Temperature 36.4 C L Temperature Source Oral Pulse Rate 71 Pulse Rate [Apical] 66 Pulse Rate from SpO2 Sensor Respiratory Rate 19 18 Respiratory Effort / Characteristics Non-Labored Spontaneous Respiratory Depth Normal Respiratory Pattern Regular Blood Pressure 112/76 Blood Pressure [Left Arm] 105/62 Blood Pressure Mean 88 Blood Pressure Mean [Left Arm] 76 Pulse Oximetry 100 100 100 Oxygen Delivery Method Nasal Cannula Nasal Cannula Nasal Cannula Oxygen Flow Rate 5 2 2 Sepsis Recent Fever Within 48 Hours No Sepsis New/Unexplained Change in Mental Status No Sepsis Action Taken by Nursing No Action Required 06/27/20 16:09 06/27/20 16:30 06/27/20 17:00 Temperature Temperature Source Pulse Rate 59 L 59 L 55 L Pulse Rate [Apical] Pulse Rate from SpO2 Sensor 60 59 L Respiratory Rate 15 12 13 Respiratory Effort / Characteristics Respiratory Depth Respiratory Pattern Blood Pressure 103/60 123/63 Blood Pressure [Left Arm] Blood Pressure Mean 71 81 Blood Pressure Mean [Left Arm] Pulse Oximetry 100 100 Oxygen Delivery Method Nasal Cannula Nasal Cannula Oxygen Flow Rate 2 2 Sepsis Recent Fever Within 48 Hours Sepsis New/Unexplained Change in Mental Status Sepsis Action Taken by Nursing 06/27/20 17:37 06/27/20 18:00 06/27/20 18:01 Temperature Temperature Source Pulse Rate 54 L 55 L 59 L Pulse Rate [Apical] Pulse Rate from SpO2 Sensor 54 L 58 L Respiratory Rate 20 13 18 Respiratory Effort / Characteristics Respiratory Depth Respiratory Pattern Blood Pressure 114/66 Blood Pressure [Left Arm] Blood Pressure Mean 83 Blood Pressure Mean [Left Arm] Pulse Oximetry Oxygen Delivery Method Oxygen Flow Rate Sepsis Recent Fever Within 48 Hours Sepsis New/Unexplained Change in Mental Status Sepsis Action Taken by Nursing Constitutional: Vital signs reviewed. Eyes: Pupils are equal round reactive to light. Conjunctiva are noninjected. ENT: Pharynx is clear without erythema or exudate. Mucous membranes are moist. Neck supple without meningeal signs. Respiratory: Clear to auscultation bilaterally. Breath sounds are equal bilaterally. Cardiovascular: Regular rate and rhythm. No rubs or gallops. GI: Soft, nondistended and nontender. Bowel sounds are present. Musculoskeletal: No peripheral edema. No lower extremity tenderness. Integumentary: No cyanosis. or jaundice. Neurologic: The patient is awake and alert. Cranial nerves II-XII are intact. Motor is 5 out of 5 all extremities. Sensation is intact to light touch all extremities. Normal speech. No pronator drift. Psychiatric: Anxious appearing. Medical Decision Making Differential Diagnosis Unstable angina, [place], pleurisy, anxiety, COPD exacerbation, ICH Medical Records Attestation: I reviewed the patient's medical records. Patient had an MRI of her brain June 23 which showed no acute intracranial abnormalities. She was seen by her primary care provider last month and noted to have paranoia, confusion and auditory hallucinations. Home Medications Current Medication List: was personally reviewed by me Laboratory Data Attestation: I reviewed the patient's lab results. Result diagrams: 06/27/20 15:38 06/27/20 15:38 Lab Results 06/27/20 06/27/20 06/27/20 Range/Units 15:38 15:38 15:38 WBC 3.17 L (4.8-10.8) K/uL RBC 3.54 L (4.2-5.4) M/uL Hgb 11.5 L (12.0-16.0) g/dL Hct 35.6 L (37-47) % MCV 100.6 H (80-100) fL MCH 32.5 (25-34) pg MCHC 32.3 (32-36) g/dL RDW Std Deviation 49.4 H (36.4-46.3) fL RDW Coeff of Irasema 13.4 (11.5-14.5) % Plt Count 124 L (130-400) K/uL MPV 10.0 (7.4-10.4) fL Immature Gran % (Auto) 0.0 % Neut % (Auto) 39.8 % Lymph % (Auto) 38.5 % [place] % (Auto) 17.0 % Eos % (Auto) 4.4 % Baso % (Auto) 0.3 % Neut # (Auto) 1.26 L (1.4-6.5) K/uL Lymph # (Auto) 1.22 (1.2-3.4) K/uL [place] # (Auto) 0.54 (0.11-0.59) K/uL Eos # (Auto) 0.14 (0-0.5) K/uL Baso # (Auto) 0.01 (0-0.2) K/uL Immature Gran # (Auto) 0.00 (0.00-0.02) K/uL PT 11.3 (9.0-12.0) Seconds INR 1.1 (0.9-1.1) APTT 34.6 H (21.0-31.0) Seconds PTT Ratio 1.2 Sodium 143 (136-145) mmol/L Potassium 3.8 (3.5-5.1) mmol/L Chloride 109 H (98-107) mmol/L Carbon Dioxide 27 (21-32) mmol/L Anion Gap 7.0 (3-11) BUN 20 H (7-18) mg/dl Creatinine 1.37 H (0.6-1.2) mg/dl Est Cr Clr Drug Dosing 34.6 ml/min Est GFR ( Amer) 46.8 Est GFR (Non-Af Amer) 40.4 BUN/Creatinine Ratio 14.7 (10-20) Glucose 89 (70-99) mg/dl Calcium 8.5 (8.5-10.1) mg/dl Total Bilirubin 0.3 (0.2-1) mg/dl AST 14 L (15-37) U/L ALT 27 (12-78) U/L Alkaline Phosphatase 67 (45-117) U/L Troponin I < 0.015 (0-0.045) ng/ml Total Protein 6.7 (6.4-8.2) gm/dl Albumin 3.5 (3.4-5.0) gm/dl Globulin 3.2 (2.5-4.0) gm/dl Albumin/Globulin Ratio 1.1 (0.9-2) Lipase 96 (73-393) U/L Urine Color Urine Appearance (Clear) Urine pH (4.5-7.5) Ur Specific [place] (1.000-1.030) Urine Protein (Negative) Urine Glucose (UA) (Negative) Urine Ketones (Negative) Urine Blood (Negative) Urine Nitrite (Negative) Urine Bilirubin (Negative) Urine Urobilinogen (Negative) Ur Leukocyte Esterase (Negative) Urine WBC (Auto) (0-5) /hpf Urine RBC (Auto) (0-4) /hpf U Hyaline Cast (Auto) (0-5) /lpf U Epithel Cells (Auto) (0-5) /lpf Urine Bacteria (Auto) (Negative) 06/27/20 Range/Units 16:08 WBC (4.8-10.8) K/uL RBC (4.2-5.4) M/uL Hgb (12.0-16.0) g/dL Hct (37-47) % MCV (80-100) fL MCH (25-34) pg MCHC (32-36) g/dL RDW Std Deviation (36.4-46.3) fL RDW Coeff of Irasema (11.5-14.5) % Plt Count (130-400) K/uL MPV (7.4-10.4) fL Immature Gran % (Auto) % Neut % (Auto) % Lymph % (Auto) % [place] % (Auto) % Eos % (Auto) % Baso % (Auto) % Neut # (Auto) (1.4-6.5) K/uL Lymph # (Auto) (1.2-3.4) K/uL [place] # (Auto) (0.11-0.59) K/uL Eos # (Auto) (0-0.5) K/uL Baso # (Auto) (0-0.2) K/uL Immature Gran # (Auto) (0.00-0.02) K/uL PT (9.0-12.0) Seconds INR (0.9-1.1) APTT (21.0-31.0) Seconds PTT Ratio Sodium (136-145) mmol/L Potassium (3.5-5.1) mmol/L Chloride (98-107) mmol/L Carbon Dioxide (21-32) mmol/L Anion Gap (3-11) BUN (7-18) mg/dl Creatinine (0.6-1.2) mg/dl Est Cr Clr Drug Dosing ml/min Est GFR ( Amer) Est GFR (Non-Af Amer) BUN/Creatinine Ratio (10-20) Glucose (70-99) mg/dl Calcium (8.5-10.1) mg/dl Total Bilirubin (0.2-1) mg/dl AST (15-37) U/L ALT (12-78) U/L Alkaline Phosphatase (45-117) U/L Troponin I (0-0.045) ng/ml Total Protein (6.4-8.2) gm/dl Albumin (3.4-5.0) gm/dl Globulin (2.5-4.0) gm/dl Albumin/Globulin Ratio (0.9-2) Lipase (73-393) U/L Urine Color Yellow Urine Appearance Cloudy A (Clear) Urine pH 7.0 (4.5-7.5) Ur Specific [place] 1.012 (1.000-1.030) Urine Protein 2+ H (Negative) Urine Glucose (UA) Negative (Negative) Urine Ketones Negative (Negative) Urine Blood 3+ H (Negative) Urine Nitrite Negative (Negative) Urine Bilirubin Negative (Negative) Urine Urobilinogen Negative (Negative) Ur Leukocyte Esterase 3+ H (Negative) Urine WBC (Auto) >30 H (0-5) /hpf Urine RBC (Auto) >30 H (0-4) /hpf U Hyaline Cast (Auto) 1-5 (0-5) /lpf U Epithel Cells (Auto) 10-20 H (0-5) /lpf Urine Bacteria (Auto) Negative (Negative) Imaging Data Radiologist's Impression: CT head/brain wo con CLINICAL HISTORY: 65 years-old Female with KELLOGG eval for bleed. Acute headache TECHNIQUE: Multiple axial CT images of the head were obtained without contrast. A dose lowering technique was utilized adhering to the principles of ALARA. CT DOSE: 537.48 mGy.cm COMPARISON: Head CT 11/16/2019. FINDINGS: No acute intracranial hemorrhage, midline shift, intracranial mass, hydrocephalus, territorial ischemia or abnormal extra-axial collection. Age- related involutional changes. Encephalomalacia from remote infarct involves the left frontal/temporal lobes and left cerebellar hemisphere. Tiny area of encephalomalacia is again noted involving the posterolateral medial right parietal lobe. Mild patchy white matter hypodensities suggest chronic microvascular ischemic disease. The calvarium is intact. The paranasal sinuses, mastoid air cells, and middle ear cavities are clear. IMPRESSION: Chronic findings as above without acute intracranial abnormality. ACT 112: Negative or not required by law. The above report was generated using voice recognition software. It may contain grammatical, syntax or spelling errors. Electronically signed by: Alfredo Yoder M.D. 06/27/2020 4:48 PM XR chest 1V portable HISTORY: 65 years-old Female Chest Pain acute atypical chest pain COMPARISON: Chest radiograph 11/16/2019, chest CT 05/14/2020, PET CT 05/31/2020. TECHNIQUE: Portable AP view of the chest FINDINGS: Cardiomediastinal and hilar silhouettes are within normal limits. Chronic interstitial coarsening. Unchanged blunting of the costophrenic angles. Emphysema. Ill-defined 2 cm nodule of the medial right lung base redemonstrated. Unchanged linear scarring of the right upper lobe. Healed remote fracture def ormity of the proximal left humerus. Degenerative changes of the shoulders and spine. IMPRESSION: 1. Emphysema without acute process. 2. Ill-defined suspicious nodule of the right lower lobe redemonstrated. ACT 112: Negative or not required by law. The above report was generated using voice recognition software. It may contain grammatical, syntax or spelling errors. Electronically signed by: Alfredo Yoder M.D. 06/27/2020 4:04 PM Dictated: 06/27/20 1600 Transcribed: 06/27/20 1600 ECG Data Attestation: I personally reviewed and interpreted this ECG as follows: Indication: + chest pain Rate (beats per minute): 72 Rhythm: + normal sinus ECG Intervals/blocks: + Normal QRS ECG ST segments: no ST elevation ECG Findings: no PVCs Blood Pressure Blood Pressure Findings: Normal blood pressure MDM Narrative I did evaluate the patient as noted above. IV access was established. I did place an order for continuous cardiac monitoring. The monitor showed normal sinus rhythm at a rate of 72 bpm. I did order and personally review the patient's 12-lead EKG as described above. She has no acute ischemic changes on her twelve-lead EKG. I did order and personally reviewed the images of the patient's chest x-ray as described above. Chest x-ray is unremarkable. I did o rder a urine analysis. She does have a UTI. Urine culture was sent. Antibiotics to be determined by the hospitalist. I did order and review the patient's blood work as noted in the electronic medical record. She has mild pancytopenia. She has chronic kidney disease. Electrolytes are unremarkable. Troponin is negative. I did order a CT of the brain. I did review the images myself as well as the radiology report as described above. There is no evidence of acute intracranial process. I did reassess the patient. I did discuss the test results with the patient. She is not having any chest pain at this time. I did recommend hospitalization for further evaluation of her symptoms. I did discuss the case with the hospitalist and employment case manager. Impression & Plan Chest pain, Heart palpitations, Near syncope, Acute UTI, Chronic kidney disease, Pancytopenia Discharge Plan Visit Data Chief Complaint: Chest Pain Stated Complaint: CHEST PAIN ED Provider: William Lopez Discharge Problem: Chest pain, Heart palpitations, Near syncope, Acute UTI, Chronic kidney disease, Pancytopenia Patient Disposition: Admitted As Inpatient Discharge Instructions Interventions: ED Discharge Assessment Last Done: 06/27/20 20:31 Discharge Problem: Chest pain Qualifiers: Chest pain type: unspecified Qualified Code(s): R07.9 - Chest pain, unspecified Chronic kidney disease Qualifiers: Chronic kidney disease stage: unspecified stage Qualified Code(s): N18.9 - Chronic kidney disease, unspecified
[2020-06-27 15:51] LABS: Basophils # (auto) 0.01 K/uL (0-0.2); Basophils % (auto) 0.3 %; Eosinophils # (auto) 0.14 K/uL (0-0.5); Eosinophils % (auto) 4.4 %; Hematocrit (blood only) 35.6 % (37-47); Hemoglobin 11.5 g/dL (12.0-16.0); Lymphocytes # (auto) 1.22 K/uL (1.2-3.4); Lymphocytes % (auto) 38.5 %; Mean Corpuscular Hemoglobin 32.5 pg (25-34); Mean Corpuscular Hgb Conc 32.3 g/dL (32-36); Mean Corpuscular Volume 100.6 fL (80-100); Monocytes # (auto) 0.54 K/uL (0.11-0.59); Neutrophils # (auto) 1.26 K/uL (1.4-6.5); Neutrophils % (auto) 39.8 %; Platelet Count 124 K/uL (130-400); RDW Coefficient of Variation 13.4 % (11.5-14.5); RDW Standard Deviation 49.4 fL (36.4-46.3); Red Blood Count 3.54 M/uL (4.2-5.4); White Blood Count 3.17 K/uL (4.8-10.8)
--- NOTE | 2020-06-27 16:05 | XRay Report ---
XR chest 1V portable HISTORY: 65 years-old Female Chest Pain acute atypical chest pain COMPARISON: Chest radiograph 11/16/2019, chest CT 05/14/2020, PET CT 05/31/2020. TECHNIQUE: Portable AP view of the chest FINDINGS: Cardiomediastinal and hilar silhouettes are within normal limits. Chronic interstitial coarsening. Un changed blunting of the costophrenic angles. Emphysema. Ill-defined 2 cm nodule of the medial right l vania base redemonstrated. Unchanged linear scarring of the right upper lobe. Healed remote fracture de formity of the proximal left humerus. Degenerative changes of the shoulders and spine. IMPRESSION: 1. Emphysema without acute process. 2. Ill-defined suspicious nodule of the right lower lobe redemonstrated. ACT 112: Negative or not required by law. The above report was generated using voice recognition software. It may contain grammatical, syntax o r spelling errors. Electronically signed by: Alfredo Yoder M.D. 06/27/2020 4:04 PM
[2020-06-27 16:08] LABS: Alanine Aminotransferase 27 U/L (12-78); Albumin Level 3.5 gm/dl (3.4-5.0); Aspartate Aminotransferase 14 U/L (15-37); BUN Creatinine Ratio 14.7 (10-20); Blood Urea Nitrogen 20 mg/dl (7-18); Calcium 8.5 mg/dl (8.5-10.1); Carbon Dioxide 27 mmol/L (21-32); Chloride 109 mmol/L (98-107); Creatinine Clr Calc Pharmacy 34.6 ml/min; Est GFR (African American) 46.8; Est GFR (Non-African American) 40.4; Glucose 89 mg/dl (70-99); Lipase 96 U/L (73-393); Potassium 3.8 mmol/L (3.5-5.1); Sodium 143 mmol/L (136-145)
[2020-06-27 16:12] LABS: Albumin Globulin Ratio 1.1 (0.9-2); Alkaline Phosphatase 67 U/L (45-117); Bilirubin,Total 0.3 mg/dl (0.2-1); Globulin 3.2 gm/dl (2.5-4.0); Total Protein 6.7 gm/dl (6.4-8.2); Troponin I < 0.015 ng/ml (0-0.045)
[2020-06-27 16:14] LABS: INR 1.1 (0.9-1.1); Partial Thromboplastin Ratio 1.2; Partial Thromboplastin Time 34.6 Seconds (21.0-31.0); Prothrombin Time 11.3 Seconds (9.0-12.0)
[2020-06-27 16:29] LABS: Appearance Urine Cloudy (Clear); Bacteria Urine Automated Negative (Negative); Bilirubin Urine Negative (Negative); Blood Urine 3+ (Negative); Color Urine Yellow; Glucose Urine UA Negative (Negative); Ketones Urine Negative (Negative); Leukocyte Esterase Urine 3+ (Negative); Nitrite Urine Negative (Negative); Protein Urine 2+ (Negative); RBC Urine Automated >30 /hpf (0-4); Specific Gravity Urine 1.012 (1.000-1.030); Urobilinogen Urine Negative (Negative); WBC Urine Automated >30 /hpf (0-5)
--- NOTE | 2020-06-27 16:50 | CT Scan Report ---
CT head/brain wo con CLINICAL HISTORY: 65 years-old Female with KELLOGG eval for bleed. Acute headache TECHNIQUE: Multiple axial CT images of the head were obtained without contrast. A dose lowering tech nique was utilized adhering to the principles of ALARA. CT DOSE: 537.48 mGy.cm COMPARISON: Head CT 11/16/2019. FINDINGS: No acute intracranial hemorrhage, midline shift, intracranial mass, hydrocephalus, territorial ischem ia or abnormal extra-axial collection. Age-related involutional changes. Encephalomalacia from remote infarct involves the left frontal/temporal lobes and left cerebellar hemisphere. Tiny area of enceph alomalacia is again noted involving the posterolateral medial right parietal lobe. Mild patchy white matter hypodensities suggest chronic microvascular ischemic disease. The calvarium is intact. The paranasal sinuses, mastoid air cells, and middle ear cavities are clear . IMPRESSION: Chronic findings as above without acute intracranial abnormality. ACT 112: Negative or not required by law. The above report was generated using voice recognition software. It may contain grammatical, syntax o r spelling errors. Electronically signed by: Alfredo Yoder M.D. 06/27/2020 4:48 PM
--- NOTE | 2020-06-27 18:47 | History & Physical Report ---
Date of Service June 27, 2020 Assessment & Plan (1) Muscle spasticity: Sudden onset left arm. No residual symptoms. ?related to hypoperfusion with presyncopal symptoms although this appears to be her first symptom. ?neuropsychiatric related to recent knowledge of new suspected cancerous lung nodule. (2) Back pain: Muscle spasticity in her back appears to be because of her discomfort when she was woken up by her son in the back of the car. (3) Chest pain: Came on with her back pain Low suspicion ACS. Repeat troponin in AM. (4) Near syncope: Eyes rolling to the back of her head. Appears consistent with presyncope. Will consult cardiology given association with her feeling like her heart was beating slower. (5) Heart palpitations: Did not have any palpitations during 48 hour holter therefore this is effectively non-diagnostic. Monitor for arrhythmia on telemetry. Consult cardiology as above. (6) Urinary frequency: Chronic, cystocele. Continue Mybetriq and oxybutynin. Follow up urine culture. (7) Urge and stress incontinence: as above (8) Bilateral hydronephrosis: Chronic bilateral indwelling stents exchanged every 5 months. Last performed March 2020. (9) Celiac disease: Will send out IgA-TTG to assess for compliance to gluten-free diet given multiple recent neuropsychiatric problems which can be associated with celiacs. Episode today came on with Brother[employer] pizza (although gluten free was prepared in an area with a lot of gluten). (10) Cirrhosis: Due to hepatitis C treated with sofosbuvir/simeprevir in 2013. Viral load undetectable October 2014. (11) B12 deficiency: B12 injections monthly (12) Recurrent deep venous thrombosis: Continue home medication of Lovenox 40 mg SQ daily (13) Hypertension: Continue metoprolol succinate 50mg PO QAM (14) Solitary lung nodule: RLL follow up outpatient for biopsy. (15) Chronic kidney disease, stage III (moderate): At baseline. Monitor BMP. (16) Clostridium difficile colitis: History of such on chronic antibiotics. Continue her chronic suppressive therapy with oral vancomycin twice a week. (17) Recurrent cellulitis: On chronic suppression with Keflex and doxycycline. We will continue these. 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 diff, PEs, celiacs disease, history of small cell lung cancer, marginal zone lymphoma who presents to the ER an abnormal episode consisting of left arm stiffness, presyncope, chest and back pain. She was seen with her son who provided a collateral history. For the past few months she has been feeling generally unwell with palpitations and auditory hallucinations undergoing workup by her PCP. Recent investigations are concerning for FDG avid spiculated right lower lobe lung which she is awaiting biopsy for. Today she suddenly called out to her son around 1:30pm. She was feeling her heart rate slowing to the point she was concerned it might stop. When he arrived she was pointing to her left arm complaining she couldn't move it as it was completely stiff. Occurred while lying down on the couch. While bringing her mother to the ER her eyes were rolling upwards and her son was unsure whether she was losing consciousness or falling asleep. He was able to arouse her at which point she noted chest pain radiating through to her back between her shoulder blades with a feeling that she had a hole in her back. No headache, neck pain, shortness of breath, change in bowels, dysuria. Residual deficits from prior CVA are a; right sided mainly sensory with inability to tell difference between hot and cold. Never had any problems on left side. On admission she reports feeling "not too bad". Feels like she needs to go to the bathroom. Allergies Allergy/AdvReac Type Severity Reaction Status Date / Time Iodinated Contrast Media Allergy Intermediate Hives Verified 07/02/20 14:57 iodine Allergy Intermediate HIVES Verified 07/02/20 14:57 levofloxacin Allergy Intermediate numbness/we Verified 07/02/20 14:57 akness pregabalin Allergy Intermediate fever?/?cher Verified 07/02/20 14:57 h strawberry Allergy Intermediate HIVES Verified 07/02/20 14:57 Sulfa (Sulfonamide Allergy Intermediate RASH/HIVES Verified 07/02/20 14:57 Antibiotics) allopurinol Allergy Mild rash Verified 07/02/20 14:57 venlafaxine Allergy Unknown UNKNOWN Verified 07/02/20 14:57 gluten AdvReac Severe Celiac Dz Verified 07/02/20 14:57 = GI symptoms adhesive AdvReac Intermediate red torn Verified 07/02/20 14:57 skin propoxyphene AdvReac Intermediate COUNTER FORMER side Verified 07/02/20 14:57 effects bee stings Allergy Severe Difficulty Uncoded 07/02/20 14:57 Breathing Home Medications Home Medications Medication Instructions Recorded Confirmed Type Florajen3 1 cap PO QAM 07/16/18 07/02/20 History Prolia 60 mg SUBCUT Q6M 07/16/18 07/02/20 History butorphanol tartrate 1 spray INTRANASAL Q3H PRN 07/16/18 07/02/20 History cetirizine [Zyrtec] 10 mg PO QAM 07/16/18 07/02/20 History coenzyme Q10 [CoQ-10] 200 mg PO QAM 07/16/18 07/02/20 History folic acid 1 mg PO QAM 07/16/18 07/02/20 History magnesium oxide 400 mg PO QAM 07/16/18 07/02/20 History multivitamin 1 tab PO QAM 07/16/18 07/02/20 History triamcinolone acetonide 1 applic TOPICAL BID PRN 07/16/18 07/02/20 History vitamin B complex [B-Complex] 1 tab PO QAM 07/16/18 07/02/20 History calcium carbonate-vitamin D3 600 1 tab PO QPM 11/26/18 07/02/20 History mg (1,500 mg)-800 unit tablet cyanocobalamin (vitamin B-12) 1,000 mcg IM MONTHLY 02/10/19 07/02/20 History ferrous sulfate [iron] 325 mg PO QAM 02/10/19 07/02/20 History mirabegron 50 mg tablet,extended 50 mg PO HS #90 tab 08/20/19 07/02/20 Rx release 24 hr psyllium husk [Metamucil] 0.52 g PO QAM 08/28/19 07/02/20 History vitamin E 400 unit PO QAM 08/28/19 07/02/20 History budesonide-formoterol HFA 160 2 puff INHALATION BID #10.2 gm 09/15/19 07/02/20 R x mcg-4.5 mcg/actuation aerosol inhaler albuterol sulfate 90 mcg/actuation 2 puff INHALATION QID PRN #8.5 gm 11/12/19 07/02/20 Rx aerosol inhaler vancomycin 125 mg capsule 125 mg PO 2XWK #30 cap 12/01/19 07/02/20 Rx methocarbamol 750 mg tablet See Rx Instructions .ROUTE 01/20/20 07/02/20 Rx .COMPLEX #60 tablet oxybutynin chloride 10 mg 10 mg PO QAM #90 tab 01/20/20 07/02/20 Rx tablet,extended release 24 hr rizatriptan 10 mg disintegrating See Rx Instructions PO .COMPLEX #9 02/09/20 07/02/20 Rx tablet tab ergocalciferol (vitamin D2) 1,250 50,000 units PO WEEKLY #12 cap 04/13/20 07/02/20 Rx mcg (50,000 unit) capsule gabapentin 400 mg capsule 400 mg PO DAILY cap 04/26/20 07/02/20 History lidocaine 5 % topical cream 1 appln TOP TID PRN #30 gm 05/14/20 07/02/20 Rx clonazepam 1 mg tablet 1 mg PO HS #30 tab 06/09/20 07/02/20 Rx metoprolol succinate 50 mg 50 mg PO QAM #30 tab 06/09/20 07/02/20 Rx tablet,extended release 24 hr potassium chloride 20 mEq 20 meq PO QAM #30 tab 06/09/20 07/02/20 Rx tablet,extended release enoxaparin 40 mg/0.4 mL See Rx Instructions SQ QAM 30 Days 06/10/20 07/02/20 Rx subcutaneous syringe #30 syr quetiapine 50 mg tablet 50 mg PO ONCE HS 30 Days #30 tab 06/10/20 07/02/20 Rx cephalexin 500 mg capsule 500 mg PO QAM #30 cap 06/16/20 07/02/20 Rx Medical Marijuana 1 dose PO DIRECTED PRN 06/27/20 07/02/20 History leibzwmoyf-etzuagszfgofe-ueto See Rx Instructions .ROUTE 06/27/20 07/02/20 History .COMPLEX PRN doxycycline hyclate 100 mg PO QAM 09/06/20 09/11/20 History acyclovir 400 mg tablet 400 mg PO BID #60 tab 06/29/20 07/02/20 Rx topiramate See Rx Instructions .ROUTE 06/29/20 07/02/20 Rx .COMPLEX #90 tab Past Med/Surg History Medical History (Updated 07/02/20 @ 16:07 by Alex Sampson MD) Abnormal PET of right lung Acute UTI Anemia Asthma Celiac disease History of Hep C 2013 Cellulitis RECURRENT B/L LE - ON PROPHYLACTIC ABX (FOLLOWS W/ DR. BAUM). CURRENTLY NOT ACTIVE. BUT IF STOPS ABX FLARES UP Chest pain Chronic back pain Chronic hypoxemic respiratory failure Chronic kidney disease STAGE III Chronic obstructive pulmonary disease EMPHYSEMA ON O2 2L CONTINUOUS Chronic venous stasis WITH DERMATITIS AND RECURRENT CELLULITIS Cirrhosis COPD (chronic obstructive pulmonary disease) COPD (chronic obstructive pulmonary disease) with acute bronchitis Heart palpitations Hx of cancer of lung TREATED Hx of deep venous thrombosis Hx of hepatitis C 2003 - TREATED Hx of non-Hodgkin's lymphoma Hydronephrosis B/L CHRONIC HYDRONEPHROSIS REQUIRING ROUTINE STENT EXCHANGES Lung nodule Medical marijuana use Migraine Near syncope On home oxygen therapy 2L continuous Osteoporosis Poor historian Primary hypercoagulable state 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 Psoriasis Pulmonary emphysema Recurrent cellulitis Stroke 1996= DECREASED RIGHT SIDED SENSATION Thrombocytopenia CHRONIC Urge and stress incontinence Venous stasis Surgical History H/O bursectomy RIGHT KNEE History of bone marrow biopsy History of bronchoscopy History of carpal tunnel release LEFT History of cystoscopy most recent 10/27/2019 [place] Cystoscopy, Bilateral Retrograde, Bilateral Stent Exchange, Injection of Urethral Bulking Agent History of esophagogastroduodenoscopy (EGD) History of liver biopsy History of ureter stent MULTIPLE Hx of bladder repair surgery FOR PROLAPSE Hx of colonoscopy Hx of tonsillectomy Hx of tubal ligation Family History Unknown Heart disease Hypertension Mother Psoriasis Diabetes Social History Smoking Status: Former smoker Second Hand Exposure: No; Hx Alcohol Use: No Hx Substance Use: Yes Last Used Substance: Hours (ago) Last Used Substance Other:: Daily Substance Use Type Other:: AM and PM; medical marijuana Preferred Language: Persian Communication Ability: Effective Visual Impairment: No Limitations Salvationist Required: No Current Living Situation: Family Current Living Situation Comment: Son and gf Feels Safe at Home: Yes Review of Systems Review of Systems: All systems reviewed & are unremarkable except as noted in HPI & below Physical Exam Constitutional: well developed; + not well nourished and no acute distress Eyes: PERRL, conjunctivae normal, anicteric sclerae ENMT: external ear and nose normal, oropharynx normal Neck: trachea midline, no thyromegaly Respiratory: normal respiratory effort, lungs clear to auscultation Cardiovascular: RRR, no murmur, no edema Gastrointestinal (Abdomen): normal bowel sounds, soft, nontender, no hepatosplenomegaly Musculoskeletal: no cyanosis or clubbing, extremities motor strength 5/5 Skin: no rashes, warm and dry Neurologic: moves all extremities and awake; no focal motor deficits and not confused Motor/Sensory: no tremor, no pronator drift and no sensory deficit Coordination: normal kadedt-fv-tjey test Psychiatric: Orientation: alert and oriented x 3 Eye Contact: + fair eye contact Motor Behavior: no abnormal motor movements Speech: normal rate/rhythm/volume of speech Affect: + anxious affect Mood: + anxious mood Genitourinary: no CVA tenderness Results & Data Results & Data ([facility]) Vital Signs (Past 12 Hours) Vital Signs Temp Pulse Pulse Resp BP BP Pulse Ox 06/27/20 18:01 59 L 18 06/27/20 18:00 55 L 13 114/66 06/27/20 17:37 54 L 20 06/27/20 17:00 55 L 13 06/27/20 16:30 59 L 12 123/63 100 06/27/20 16:09 59 L 15 103/60 100 06/27/20 15:48 66 18 105/62 100 06/27/20 15:45 100 06/27/20 14:44 36.4 C L 71 19 112/76 100 Diagnostic Findings XR chest 1V portable IMPRESSION: 1. Emphysema without acute process. 2. Ill-defined suspicious nodule of the right lower lobe redemonstrated. CT head/brain wo con IMPRESSION: Chronic findings as above without acute intracranial abnormality. ECG Indication: syncope (presyncope) Rate (beats per minute): 72 Rhythm: normal sinus Comparison ECG Date: from (Nov 16, 2019) Change: no significant change Code Status & VTE Plan Code Status Full VTE Prophylaxis Plan VTE Prophylaxis will be ordered: Yes PG Care Time/CCT Total # of Minutes Spent Total Time Spent with Patient: Total time spent is greater than 50% in coordination of care (as documented) at patient's floor/unit and/or counseling patient: Coding Level of Care Code 77016 OBS Care - Level 3 Diagnoses Muscle spasticity M62.838 Back pain M54.9 Chest pain R07.9 Chest pain type: unspecified Near syncope R55 Heart palpitations R00.2 Urinary frequency R35.0 Urge and stress incontinence N39.46 Bilateral hydronephrosis N13.30 Celiac disease K90.0 Cirrhosis K74.60 B12 deficiency E53.8 Recurrent deep venous thrombosis I82.409 Hypertension I10 Solitary lung nodule R91.1 Chronic kidney disease, stage III (moderate) N18.3 Clostridium difficile colitis A04.72 Recurrent cellulitis L03.90 Primary hypercoagulable state D68.59 Migraine G43.909 Squamous cell carcinoma of lung C34.90 Marginal zone B-cell lymphoma C85.80 (1) Chest pain Chest pain type: unspecified Qualified Code(s): R07.9 - Chest pain, unspecified
[2020-06-27] MEDS ORDERED: TRIAMCINOLONE ACET 0.025% CR 15 GM TUBE TOP PRN (20:44)
[2020-06-27] MEDS ORDERED: MEDICAL MARIJUANA PO PRN (21:47)
[2020-06-27] MEDS: clonazePAM 1 MG TAB PO SCH (22:21)
[2020-06-27] MEDS: CALCIUM 600MG + VIT D 400 IU TAB PO SCH (22:21)
[2020-06-27] MEDS: METHOCARBAMOL 750 MG TABLET PO SCH (22:22)
[2020-06-27] MEDS: MIRABEGRON ER 25 MG TAB PO SCH (22:23)
[2020-06-27] MEDS: QUETIAPINE FUMARATE 25 MG TABLET PO SCH (22:23)
[2020-06-27] MEDS: TOPIRAMATE 100 MG TAB PO SCH (22:24)
[2020-06-28 06:13] LABS: Basophils # (auto) 0.01 K/uL (0-0.2); Basophils % (auto) 0.2 %; Eosinophils # (auto) 0.16 K/uL (0-0.5); Eosinophils % (auto) 2.7 %; Hematocrit (blood only) 40.3 % (37-47); Hemoglobin 12.8 g/dL (12.0-16.0); Immature Granulocytes # (auto) 0.01 K/uL (0.00-0.02); Immature Granulocytes % (auto) 0.2 %; Lymphocytes # (auto) 2.49 K/uL (1.2-3.4); Lymphocytes % (auto) 41.6 %; Mean Corpuscular Hemoglobin 32.5 pg (25-34); Mean Corpuscular Hgb Conc 31.8 g/dL (32-36); Mean Corpuscular Volume 102.3 fL (80-100); Mean Platelet Volume 9.7 fL (7.4-10.4); Monocytes # (auto) 0.85 K/uL (0.11-0.59); Monocytes % (auto) 14.2 %; Neutrophils # (auto) 2.47 K/uL (1.4-6.5); Neutrophils % (auto) 41.1 %; Platelet Count 140 K/uL (130-400); RDW Coefficient of Variation 13.5 % (11.5-14.5); RDW Standard Deviation 51.1 fL (36.4-46.3); Red Blood Count 3.94 M/uL (4.2-5.4); White Blood Count 5.99 K/uL (4.8-10.8)
[2020-06-28 06:42] LABS: BUN Creatinine Ratio 14.4 (10-20); Blood Urea Nitrogen 20 mg/dl (7-18); Calcium 8.7 mg/dl (8.5-10.1); Carbon Dioxide 27 mmol/L (21-32); Chloride 108 mmol/L (98-107); Creatinine Clr Calc Pharmacy 33.1 ml/min; Est GFR (African American) 45.2; Glucose 95 mg/dl (70-99); Sodium 140 mmol/L (136-145)
[2020-06-28 06:53] LABS: Thyroid Stimulating Hormone 0.943 uIu/ml (0.300-4.500); Troponin I < 0.015 ng/ml (0-0.045)
--- NOTE | 2020-06-28 07:02 | Electrocardiogram Report ---
Test Reason : Blood Pressure : / mmHG Vent. Rate : 072 BPM Atrial Rate : 072 BPM P-R Int : 188 ms QRS Dur : 096 ms QT Int : 408 ms P-R-T Axes : 053 009 036 degrees QTc Int : 446 ms Poor data quality, interpretation may be adversely affected Normal sinus rhythm Normal ECG When compared with ECG of 16-NOV-2019 01:55, No significant change was found Confirmed by Jose Self ([id number]) on 06/28/2020 7:01:38 AM Referred By: REFERRED SELF Confirmed By:Jose Self
[2020-06-28] MEDS: FLUTICASONE/VILANTEROL 200/25MCG 14 PUFFS/INHALER INH SCH (08:08)
[2020-06-28] MEDS: CETIRIZINE HCL 10 MG TABLET PO SCH (08:10)
[2020-06-28] MEDS: VITAMIN B COMPLEX TAB PO SCH (08:10)
[2020-06-28] MEDS: TOCOPHERYL, DL-ALPHA 400 UNITS CAP PO SCH (08:10)
[2020-06-28] MEDS: FOLIC ACID 1 MG TAB PO SCH (08:10)
[2020-06-28] MEDS: FERROUS SULFATE 325 MG TAB PO SCH (08:10)
[2020-06-28] MEDS: MAGNESIUM OXIDE 400 MG TAB PO SCH (08:10)
[2020-06-28] MEDS: OXYBUTYNIN CHLORIDE XL 5 MG TABCR PO SCH (08:10)
[2020-06-28] MEDS: cephALEXin 500 MG CAP PO SCH (08:10)
[2020-06-28] MEDS: GABAPENTIN 400 MG CAP PO SCH (08:11)
[2020-06-28] MEDS: METOPROLOL SUCC 50MG EXT REL TAB PO SCH (08:11)
[2020-06-28] MEDS: ENOXAPARIN INJ 40 MG/0.4 ML SYR SQ SCH (08:12)
[2020-06-28] MEDS: MULTIVITAMIN TAB PO SCH (08:12)
[2020-06-28] MEDS: POTASSIUM CHLORIDE 20 MEQ TABCR PO SCH (08:12)
[2020-06-28] MEDS: TOPIRAMATE 100 MG TAB PO SCH ×2 (08:12→22:11)
[2020-06-28] MEDS: METHOCARBAMOL 750 MG TABLET PO SCH ×2 (08:12→22:11)
[2020-06-28] MEDS: PSYLLIUM 58.6% POWDER PACKET PO SCH (08:13)
[2020-06-28] MEDS ORDERED: LACTOBACILLUS ACIDOPHILUS PO SCH (09:00)
[2020-06-28] MEDS ORDERED: VANCOMYCIN HCL 125 MG/2.5ML SOLN PO SCH (09:00)
[2020-06-28] MEDS ORDERED: [UNRECOGNIZED DRUG - OTHER] PO SCH (09:00)
[2020-06-28] MEDS ORDERED: RASPBERRY SYRUP 5 ML UDP PO SCH (09:00)
[2020-06-28] MEDS ORDERED: BIFIDOBACTERIUM LONGUM PO SCH (09:00)
[2020-06-28] MEDS ORDERED: NON-FORMULARY MEDICATION (Coenzyme Q10 [Coq-10] 200 MG) PO SCH (09:00)
--- NOTE | 2020-06-28 09:50 | Hospitalist Progress Note ---
Date of Service June 28, 2020 Assessment & Plan (1) Muscle spasticity: * Sudden onset left arm 06/27. History CVA 1996 with some R sided numbness along with hx multiple smaller strokes. 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 * Neurology consulted -- appreciate assistance. Recent MRI without evidence of acute CVA or brain mass -- could consider repeating MRI although do not suspect this is current cause Patient also with PET scan with new RLL nodule with previous hx small cell lung ca 7-8 years ago * Psych consulted -- ??neuropsych related to recent knowledge of suspected lung ca --> of note, patient with auditory hallucinations and had recently been restarted on her Seroquel and increased to 50mg daily as she had previously weaned herself off (2) Depression: * and anxiety, with auditory hallucinations/possible psychosis * MRI negative for brain mets * Psych consulted -- appreciate assitance (3) Chest pain: * Came on with her back pain --> now describes as intermittent "squeezing/tightness" with shortness of breath * Low suspicion ACS --> trops negative. EKG unremarkable. * Previous * Cardiology consulted --> appreciate assistance. No further ischemic evaluation recommended. If patient agreeable, could arrange 30 day event monitor as she was unsure if she would like to undergo at this time during their conversation * Suspect some related to anxiety/depression -- see above (4) Near syncope: * Reported eyes rolling to the back of her head. Appears consistent with presyncope. * Cardiology consulted -- rec possible 30day (5) Urinary frequency: * Chronic, cystocele. On Keflex/Doxy outpatient for recurrent cellulitis * UA 2+ protein, 3+ blood, 3+ leuk esterase, >30 RBC, 10-20 epi * Culture with pinpoint growth, re-incubating --> follow * Continue Mybetriq and oxybutynin. * Will speak with Urology in AM as patient with chronic bilateral stent, exchan ged Q5 months and most recently exchanged 04/01/[address] Marroquin (6) Heart palpitations: * Did not have any palpitations during 48 hour Holter therefore this is effectively non-diagnostic. She did have some bigeminy noted, although did not increase BB due to hypotension * Monitor for arrhythmia on telemetry. * Consult cardiology as above. * Has been normal sinus 60-70s on monitor (7) Back pain: * Stable (8) Urge and stress incontinence: * as above (9) Bilateral hydronephrosis: * Chronic bilateral indwelling stents exchanged every 5 months. Last performed March 2020. (10) Celiac disease: * IgA-TTG sent out to assess for compliance to gluten-free diet given multiple recent neuropsychiatric problems which can be associated with celiacs. Patient had episode reported following Brother[employer] pizza (although gluten free was prepared in an area with a lot of gluten). * Follow (11) Cirrhosis: * Due to hepatitis C treated with sofosbuvir/simeprevir in 2013. Viral load undetectable October 2014. (12) B12 deficiency: * B12 injections monthly -- to have next one on Sunday she believes (13) Recurrent deep venous thrombosis: * Hx Factor II deficiency * Continue home medication of Lovenox 40 mg SQ daily (14) Hypertension: * Continue metoprolol succinate 50mg PO QAM * BP 100/60 and patient continually runs lower --> had been low at last office visit as well. Cardiology consulted as above (15) Solitary lung nodule: * Hx small cell lung ca. * Seen on PET scan, 2.2cm RLL nodule, ordered by Dr. Piedra. Will need outpatient follow up courtney and likely fine needle biopsy outpatient and then f/u with Dr. Bloom (16) Chronic kidney disease, stage III (moderate): * At baseline. * Continue to monitor (17) Clostridium difficile colitis: * History of such on chronic antibiotics. Continue her chronic suppressive therapy with oral vancomycin twice a week, sunday/sunday (18) Recurrent cellulitis: * On chronic suppression with Keflex and doxycycline. We will continue these. (19) Primary hypercoagulable state: * Factor II mutation, on daily lovenox (20) Migraine: * Continue topamax 100mg BID (21) Squamous cell carcinoma of lung: * Hx Right upper lobe - external beam radiation * New nodule on PET as above * Follows with Dr. Bloom for oncology (22) Marginal zone B-cell lymphoma: * s/p chemotherapy 2013. (23) COPD (chronic obstructive pulmonary disease): * On 2L chronically at home * Continue home medications * Currently 100% on 2L NC (24) DVT prophylaxis: * Lovenox Admission and Anticipated Discharge Date Admission Date: June 27, 2020 Subjective Patient evaluated this afternoon. She states she is feeling ok and that she talked with Dr. Pagan this morning who she has followed with for some time. No further spasticity this morning but does have some numbness to left elbow when resting in bed. She became tearful during our conversation when talking about what's been going on lately. She states that she had been seen by Dr. Piedra previously who ordered the PET scan, and that she did receive a call from their office that he would be out of town but she did not hear anything back from them. Discussed getting her in sooner rather than later but that I did speak with pulmonary team and that it is likely she will be able to have a fine need biopsy given location. She states she did have a holter monitor in the past but they didn't want to increase metoprolol because her blood pressures were on the low side. She notes that she has had significant weight loss since last September 2019 from 175lb to 135lb with associated night sweats. She states she did not wake up "drenched" in sweat but had been "moist" most mornings. She has had decreased appetite and increased anxiety and depression regarding her living situation. She states that her son lives with her and his girlfriend also moved in last winter and she endorses not getting along with her. She states she had been utilizing caffeine free tea and the girlfriend brought in tea this morning "on purpose" that had caffeine and upset her stomach. She had been previously been trying to get into psychiatric care but had not heard back from her PCP or psych office as they had been trying to get her in with neuropsych so that she might get seen sooner. Denies SI/HI but does endorse increased anxiety/depression given new findings of likely recurrence of lung CA. She is willing to travel to [facility] for appointments, but states she depends on daughter for travel and will need to coordinate these visits. She denies fever, chills. She has chest tightness/squeezing that comes and goes and is not related directly to food or activity. Review of Systems Review of Systems: All systems reviewed & are unremarkable except as noted in HPI & below Physical Exam Constitutional: no acute distress. appears older than stated age Eyes: + anicteric sclerae and PERRL ENMT: Ears: no hearing impairment Neck: normal visual inspection Respiratory: normal respiratory effort, lungs clear to auscultation Cardiovascular: Rate/Rhythm: regular rate and regular rhythm Extremities: + edema (trace b/l) Gastrointestinal (Abdomen): Inspection/Auscultation: + abdomen distended and normal bowel sounds Percussion/Palpation: abdomen soft; abdomen nontender, no guarding and abdomen not rigid Musculoskeletal: no cyanosis or clubbing, extremities motor strength 5/5 Skin: warm, dry -- numerous areas of ecchymosis across lower abdomen Neurologic: PERRL, EOMI, accommodation nl, no face palsy, no dysarthria 1/4 reflexes biceps, triceps b/l Psychiatric: Orientation: alert and oriented x 3 Affect: + anxious affect and + tearful affect Lymphatic: no cervical or axillary lymphadenopathy Results & Data Results & Data ([facility]) Vital Signs (Past 12 Hours) Vital Signs Temp Pulse Pulse Resp BP Pulse Ox 06/28/20 07:08 81 06/28/20 06:15 36.4 C L 74 18 100/59 L 100 06/28/20 02:46 36.6 C 66 18 97/68 L 99 Laboratory Results 06/28/20 06/28/20 06/28/20 Range/Units 05:41 05:41 05:41 WBC 5.99 (4.8-10.8) K/uL RBC 3.94 L (4.2-5.4) M/uL Hgb 12.8 (12.0-16.0) g/dL Hct 40.3 (37-47) % MCV 102.3 H (80-100) fL MCH 32.5 (25-34) pg MCHC 31.8 L (32-36) g/dL RDW Std Deviation 51.1 H (36.4-46.3) fL RDW Coeff of Irasema 13.5 (11.5-14.5) % Plt Count 140 (130-400) K/uL MPV 9.7 (7.4-10.4) fL Immature Gran % (Auto) 0.2 % Neut % (Auto) 41.1 % Lymph % (Auto) 41.6 % [place] % (Auto) 14.2 % Eos % (Auto) 2.7 % Baso % (Auto) 0.2 % Neut # (Auto) 2.47 (1.4-6.5) K/uL Lymph # (Auto) 2.49 (1.2-3.4) K/uL [place] # (Auto) 0.85 H (0.11-0.59) K/uL Eos # (Auto) 0.16 (0-0.5) K/uL Baso # (Auto) 0.01 (0-0.2) K/uL Immature Gran # (Auto) 0.01 (0.00-0.02) K/uL Sodium 140 (136-145) mmol/L Potassium 4.0 (3.5-5.1) mmol/L Chloride 108 H (98-107) mmol/L Carbon Dioxide 27 (21-32) mmol/L Anion Gap 5.0 (3-11) BUN 20 H (7-18) mg/dl Creatinine 1.41 H (0.6-1.2) mg/dl Est Cr Clr Drug Dosing 33.1 ml/min Est GFR ( Amer) 45.2 Est GFR (Non-Af Amer) 39.0 BUN/Creatinine Ratio 14.4 (10-20) Glucose 95 (70-99) mg/dl Calcium 8.7 (8.5-10.1) mg/dl Troponin I < 0.015 (0-0.045) ng/ml TSH 0.943 (0.300-4.500) uIu/ml Tiss Transglutamin IgA Pending PG Care Time/CCT Total # of Minutes Spent Total Time Spent with Patient: Total time spent is greater than 50% in coord ination of care (as documented) at patient's floor/unit and/or counseling patient: Coding Level of Care Code 02465 Subseq Obs Care Lvl 3 Diagnoses Muscle spasticity M62.838 Depression F32.9 Chest pain R07.9 Chest pain type: unspecified Near syncope R55 Urinary frequency R35.0 Heart palpitations R00.2 Back pain M54.9 Urge and stress incontinence N39.46 Bilateral hydronephrosis N13.30 Celiac disease K90.0 Cirrhosis K74.60 B12 deficiency E53.8 Recurrent deep venous thrombosis I82.409 Hypertension I10 Solitary lung nodule R91.1 Chronic kidney disease, stage III (moderate) N18.3 Clostridium difficile colitis A04.72 Recurrent cellulitis L03.90 Primary hypercoagulable state D68.59 Migraine G43.909 Squamous cell carcinoma of lung C34.90 Marginal zone B-cell lymphoma C85.80 COPD (chronic obstructive pulmonary disease) J44.9 DVT prophylaxis Z29.9 (1) Chest pain Chest pain type: unspecified Qualified Code(s): R07.9 - Chest pain, unspecified
--- NOTE | 2020-06-28 10:30 | Neurology Consultation ---
Date of Consultation June 28, 2020 Assessment & Plan (1) Muscle spasticity: (2) Migraine: (3) Factor II deficiency: (4) Depression: This patient has a long-standing history of refractory, intermittent migraine headaches which have been spontaneously improve over time compared to previous decades of her life. She is stable with this issue currently. She has a history of a significant left temporoparietal stroke in 1996 leaving her with some right-sided numbness. This is also stable. Currently on neurologic examination she is at baseline with no other focal neurologic findings, meningeal signs, or encephalopathy. she has a history of multiple other smaller strokes but none recently. She has Factor 2 deficiency. The patient has a history of non-Hodgkin's lymphoma and small cell lung carcinoma 7-8 years ago and currently has a new right lung lesion seen on imaging. This is likely recurrence small cell carcinoma. She had cardiopulmonary symptoms yesterday which led to her admission. There was some brief left arm and leg stiffness that occurred for some minutes ( unsure by history) resolved by the time she came to the emergency room and did not reoccur. Patient does have a remote history of seizures , but these have not been an issue for many years. The topiramate and gabapentin that she is on for migraine headaches would help prevent seizures as well. She was awake and alert with good recall of the events of yesterday. She has a history of depression and possibly some psychosis. This has been stable eyes with low-dose Seroquel and her mood seems fairly good currently. An MRI of the brain several days prior to admission revealed no new tumor or stroke. Recommendations: 1. continue topiramate, gabapentin, and quetiapine at current doses. 2. I see no need for additional neurologic testing at this time since she is so stable and her exam is at baseline neurologically (As well as just having an MRI several days prior to admission). 3. Cardiology and pulmonology evaluations would be reasonable. 4. I will follow otherwise, Overall, I spent a total of 100 minutes with this case including review of records, review of MRI films, direct evaluation the patient at bedside, and discussion of the case with the patient and RN at bedside as well as Flory Mirza PA-C, including differential diagnosis and treatment options. History of Present Illness Reason for Consultation: Patient is a 65-year-old, who I was asked to see at the request of Dr. Brown, for neurologic consultation regarding acute left- sided spasticity and abnormal movements. Requesting Physician: Dr. Brown Attending Physician: William Hussein MD History of Present Illness I have known this patient since the early when I followed her for severe, refractory, intermittent migraine headaches. He has tried and failed most medications that I have ever tried although currently topiramate helps some. The patient had a significant left temporoparietal stroke in 1996. She has had multiple smaller strokes in the past as well including the cerebellum left greater than right side , and the right basal ganglia. she has a factor II thrombophilia. She was also diagnosed in the with porphyria cutanea tarda. She had non-Hodgkin's lymphoma diagnosed somewhere around 2011 and within a year to after that she had small cell lung carcinoma of the right lung. she carries a diagnosis of depression and insomnia. She has had some right- sided numbness and dysesthesias since the stroke in 1996 of a longstanding nature. Over the last 6 months there has been a question of memory and mental status changes. She was on Seroquel but tapered herself off. I saw her on April of this year and felt that perhaps there was some underlying psychosis. I restarted Seroquel at 25 mg each evening for a couple of weeks then increase to 50 mg each evening where she is now. She tells me that she is sleeping a little bit better and her mood is better. This may be having a bit of headache control as well. Her headaches are occasional and not nearly as frequent or severe as they were in past years. Topiramate and gabapentin help her headaches to some degree. Recent PET scan showed right lower lobe change consistent with possible lung cancer recurrence. She has prominent lymph nodes of the mediastinum but these were unchanged. MRI of the brain June 23 showed old changes only and no new strokes or tumors. On the morning of June 27 she had a typical left sided headache. By 1 o'clock in the afternoon she noted some shortness of breath and some "slowing of her heart rate". She had some chest discomfort and then some "stiffness" of her left arm and leg. There was no limb pain or increased weakness or numbness. She did not have the control over it that she felt but was perfectly awake and alert and had total recall all events of yesterday. She arrived to the emergency room June 27 at 1444 with a temperature 36.4, pulse 71, respiratory rate 19, blood pressure 112/76, and 100% O2 on 5 L. This remain 100% on 2 L ( her usual dose of oxygen ). Neurologic examination was described as unremarkable/ normal. CBC showed some mild anemia increased MCV. Chem profile showed elevated BUN and creatinine. Urinalysis had increased white cells and a culture is pending. CT scan of the head was unremarkable. Chest x-ray showed changes of emphysema and a right lower lobe nodule. This morning the patient is doing very well with no spasticity, stiffness, weakness, numbness, or pain of the arms and legs bilaterally. Her chest feels better and she feels that she is breathing better. She is not confused and has no vision issues. She does have some chronic low back pain which is typical for her. Currently she has no headache. In the past she has tried and failed (for both migraine prevention and mood) Cymbalta, Lamictal, Keppra, Depakote, doxepin, Lyrica, Effexor, Paxil, Zanaflex, Remeron, Zoloft, Corgard, gabapentin, nortriptyline, fluoxetine, verapamil, propranolol, and amitriptyline. Allergies Allergy/AdvReac Type Severity Reaction Status Date / Time Iodinated Contrast Media Allergy Intermediate Hives Verified 06/27/20 16:01 iodine Allergy Intermediate HIVES Verified 06/27/20 16:01 levofloxacin Allergy Intermediate numbness/we Verified 06/27/20 16:01 akness pregabalin Allergy Intermediate fever?/?cher Verified 06/27/20 16:01 h strawberry Allergy Intermediate HIVES Verified 06/27/20 16:01 Sulfa (Sulfonamide Allergy Intermediate RASH/HIVES Verified 06/27/20 16:01 Antibiotics) allopurinol Allergy Mild rash Verified 06/27/20 16:01 venlafaxine Allergy Unknown UNKNOWN Verified 06/27/20 16:01 gluten AdvReac Severe Celiac Dz Verified 06/27/20 16:01 = GI symptoms adhesive AdvReac Intermediate red torn Verified 06/27/20 16:01 skin propoxyphene AdvReac Intermediate DIRECTOR STYLE side Verified 06/27/20 16:01 effects bee stings Allergy Severe Difficulty Uncoded 06/27/20 16:01 Breathing Home Medications Home Medications Medication Instructions Recorded Confirmed Type Florajen3 1 cap PO QAM 07/16/18 06/27/20 History Prolia 60 mg SUBCUT Q6M 07/16/18 06/27/20 History butorphanol tartrate 1 spray INTRANASAL Q3H PRN 07/16/18 06/27/20 History cetirizine [Zyrtec] 10 mg PO QAM 07/16/18 06/27/20 History coenzyme Q10 [CoQ-10] 200 mg PO QAM 07/16/18 06/27/20 History folic acid 1 mg PO QAM 07/16/18 06/27/20 History magnesium oxide 400 mg PO QAM 07/16/18 06/27/20 History multivitamin 1 tab PO QAM 07/16/18 06/27/20 History triamcinolone acetonide 1 applic TOPICAL BID PRN 07/16/18 06/27/20 History vitamin B complex [B-Complex] 1 tab PO QAM 07/16/18 06/27/20 History calcium carbonate-vitamin D3 600 1 tab PO QPM 11/26/18 06/27/20 History mg (1,500 mg)-800 unit tablet cyanocobalamin (vitamin B-12) 1,000 mcg IM MONTHLY 02/10/19 06/27/20 History ferrous sulfate [iron] 325 mg PO QAM 02/10/19 06/27/20 History mirabegron 50 mg tablet,extended 50 mg PO HS #90 tab 08/20/19 06/27/20 Rx release 24 hr psyllium husk [Metamucil] 0.52 g PO QAM 08/28/19 06/27/20 History vitamin E 400 unit PO QAM 08/28/19 06/27/20 History budesonide-formoterol HFA 160 2 puff INHALATION BID #10.2 gm 09/15/19 06/27/20 Rx mcg-4.5 mcg/actuation aerosol inhaler albuterol sulfate 90 mcg/actuation 2 puff INHALATION QID PRN #8.5 gm 11/12/19 06/27/20 Rx aerosol inhaler vancomycin 125 mg capsule 125 mg PO 2XWK #30 cap 12/01/19 06/27/20 Rx methocarbamol 750 mg tablet See Rx Instructions .ROUTE 01/20/20 06/27/20 Rx .COMPLEX #60 tablet oxybutynin chloride 10 mg 10 mg PO QAM #90 tab 01/20/20 06/27/20 Rx tablet,extended release 24 hr rizatriptan 10 mg disintegrating See Rx Instructions PO .COMPLEX #9 02/09/20 06/27/20 Rx tablet tab topiramate 100 mg tablet 100 mg PO BID #60 tab 02/09/20 06/27/20 Rx ergocalciferol (vitamin D2) 1,250 50,000 units PO WEEKLY #12 cap 04/13/20 06/27/20 Rx mcg (50,000 unit) capsule gabapentin 400 mg capsule 400 mg PO DAILY cap 04/26/20 06/27/20 History lidocaine 5 % topical cream 1 appln TOP TID PRN #30 gm 05/14/20 06/27/20 Rx clonazepam 1 mg tablet 1 mg PO HS #30 tab 06/09/20 06/27/20 Rx metoprolol succinate 50 mg 50 mg PO QAM #30 tab 06/09/20 06/27/20 Rx tablet,extended release 24 hr potassium chloride 20 mEq 20 meq PO QAM #30 tab 06/09/20 06/27/20 Rx tablet,extended release enoxaparin 40 mg/0.4 mL See Rx Instructions SQ QAM 30 Days 06/10/20 06/27/20 Rx subcutaneous syringe #30 syr quetiapine 50 mg tablet 50 mg PO ONCE HS 30 Days #30 tab 06/10/20 06/27/20 Rx cephalexin 500 mg capsule 500 mg PO QAM #30 cap 06/16/20 06/27/20 Rx Medical Marijuana 1 dose PO DIRECTED PRN 06/27/20 06/27/20 History [id number] See Rx Instructions .ROUTE 06/27/20 06/27/20 History .COMPLEX PRN doxycycline hyclate 100 mg PO QAM 06/27/20 06/27/20 History Patient History Medical History Anemia Asthma Cardiomyopathy HX (EF 60-65% PER 2018 ECHO) Celiac disease History of Hep C 2013 Cellulitis RECURRENT B/L LE - ON PROPHYLACTIC ABX (FOLLOWS W/ DR. BAUM). CURRENTLY NOT ACTIVE. BUT IF STOPS ABX FLARES UP Chronic back pain Chronic kidney disease STAGE III Chronic obstructive pulmonary disease EMPHYSEMA ON O2 2L CONTINUOUS Chronic venous stasis WITH DERMATITIS AND RECURRENT CELLULITIS Cirrhosis COPD (chronic obstructive pulmonary disease) Hx of cancer of lung TREATED Hx of deep venous thrombosis Hx of hepatitis C 2004 - TREATED Hx of non-Hodgkin's lymphoma Hydronephrosis B/L CHRONIC HYDRONEPHROSIS REQUIRING ROUTINE STENT EXCHANGES Lung nodule Medical marijuana use Migraine On home oxygen therapy 2L continuous Osteoporosis Poor historian Primary hypercoagulable state Prothrombin [id number] mutation "FACTOR 2 MUTATION" PER PT Psoriasis Pulmonary emphysema Recurrent cellulitis Stroke 1996= DECREASED RIGHT SIDED SENSATION Thrombocytopenia CHRONIC Urge and stress incontinence Venous stasis Surgical History H/O bursectomy RIGHT KNEE History of bone marrow biopsy History of bronchoscopy History of carpal tunnel release LEFT History of cystoscopy most recent 10/27/2019 [place] Cystoscopy, Bilateral Retrograde, Bilateral Stent Exchange, Injection of Urethral Bulking Agent History of esophagogastroduodenoscopy (EGD) History of liver biopsy History of ureter stent MULTIPLE Hx of bladder repair surgery FOR PROLAPSE Hx of colonoscopy Hx of tonsillectomy Hx of tubal ligation Family History Unknown Heart disease Hypertension Mother Psoriasis Diabetes Social History Smoking Status: Former smoker Smoking End Date: 03/07/2011; Second Hand Exposure: No; Hx Alcohol Use: No Hx Substance Use: Yes Last Used Substance: Hours (ago) Last Used Substance Other:: Daily Substance Use Type Other:: AM and PM; medical marijuana Preferred Language: Divehi Communication Ability: Effective Visual Impairment: No Limitations Marine Engine Driver Required: No Beliefs That Will Affect Care: None Current Living Situation: Family Current Living Situation Comment: Son and gf Feels Safe at Home: Yes Safety Concerns: Feels Safe At This Time Review of Systems Constitutional: + fatigue; no fever and no weakness Eyes: no diplopia, no eye pain and no worsening vision Ear, Nose, Mouth, Throat: no ear pain, no tinnitus, no hearing loss, no dizziness, no hoarseness and no dysphagia Respiratory: no cough and no dyspnea Cardiovascular: no chest pain, no palpitations and no lightheadedness Gastrointestinal: no abdominal pain, no nausea and no vomiting Genitourinary: no dysuria, no urinary frequency and no urinary incontinence Musculoskeletal: + back pain; no neck pain, no radicular pain, no joint pain and no myalgia Integumentary: no rash and no lesions Neurologic: no gait abnormality, no localized weakness, no generalized weakness, no tingling, no numbness, no tremor(s), no abnormal movements, no headache(s), no abnormal speech, no confusion and no memory loss Psychiatric: + depression; no irritability, no anxiety, no difficulty concentrating, no confusion and no hallucinations Endocrine: no fatigue and no flushing Hematologic / Lymphatic: no easy bleeding and no easy bruising Allergy / Immunological: no urticaria and no problem reported Exam (Neuro) Physical Exam: The patient is right-handed. The patient is awake, alert, and attentive. Speech is normal without any aphasia or dysarthria. She can name objects, repeat phrases, and has normal spontaneous speech. Mentation and thought processes are intact, with cayla entation to person, place and time, and normal fund of knowledge. Attention and concentration are normal. Mood is reasonable and affect is mildly flat ( as is typical for her). General appearance and grooming are normal. Short and long- term memory are reasonable to conversation. The discs are sharp with positive venous pulsations bilaterally. There are no exudates, hemorrhages, or blood vessel changes seen. Pupils are 4 mm bilaterally and reactive to light. Extraocular eye muscles are intact without nystagmus. Visual acuity and visual romero seem normal grossly to confrontation. There are no deficits to sensation in the face in all 3 distributions of the fifth cranial nerve bilaterally. Corneal reflexes are positive bilaterally. Facial strength and symmetry was normal bilaterally. Hearing seems normal to whisper and finger rub bilaterally. Palate moves well without asymmetry. There is normal sternocleidomastoid and trapezius (shoulder shrug) strength bilaterally. Tongue is midline with good strength bilaterally. Neck has a full range of motion without discomfort. There are no cervical bruits bilaterally. There are no cranial or ocular bruits. Heart is without murmur. There is a regular rhythm and rate. Cervical, thoracic, and lumbar spine are nontender to palpation. Gait Was not tested but stance sitting up in bed is. With outstretched arms there is no drift. There are no resting, postural, or action tremors. There is no ataxia with finger to nose testing. There is good facility in the hands. No other abnormal involuntary movements are noted. Motor strength is 5/5 diffusely in the arms bilaterally including deltoids, biceps, triceps, brachioradialis, wrist flexors and extensors, landscape photographer, and intrinsic hand muscles. Motor strength is 5/5 diffusely in the legs bilaterally including hip flexors, quadriceps, hamstrings, gastrocnemius, tibialis anterior, tibialis posterior, and Peroneii muscles. Toe extensors are normal and there is good bulk in the extensor digitorum brevis muscles bilaterally. The limbs have good tone without rigidity or spasticity. There is no atrophy noted in the muscles. Muscle bulk is normal, there is no tenderness to palpation, no myotonia to percussion, and no fasciculations seen. Sensory examination is intact to touch and pin throughout all 4 limbs diffusely. Reflexes are 1/4 in the biceps, triceps, brachioradialis, quadriceps, and Achilles tendons bilaterally. There is no clonus bilaterally. Toes are downgoing with plantar stimulation bilaterally. Peripheral pulses are present and of normal quality distally in all 4 limbs. There is no peripheral edema noted in the limbs. Results & Data ([facility]) Vital Signs (Past 12 Hours) Vital Signs Temp Pulse Pulse Resp BP Pulse Ox 06/28/20 07:08 81 06/28/20 06:15 36.4 C L 74 18 100/59 L 100 06/28/20 02:46 36.6 C 66 18 97/68 L 99 Diagnostic Findings MRI OF THE BRAIN WITHOUT AND WITH IV CONTRAST CLINICAL HISTORY: G43.909 - Migraine, unspecified, not intractable, without status migrainosus HISTORY OF LYMPHOMA AND LUNG CARCINOMA COMPARISON STUDY: MRI the brain dated 12/19/2014, CT scan dated 11/16/2019 TECHNIQUE: MRI of the brain was performed from the vertex to the skull base utilizing various T1 and T2 weighted sequences. Following the IV administration of 6 mL of Gadavist contrast, additional enhanced images were obtained. FINDINGS: Sagittal T1, axial diffusion, proton density and T2 weighted axial, coronal FLAIR, and pre and post axial T1-weighted images were acquired. These were supplemented with post gadolinium coronal T1 weighted images. No intra or extra-axial mass lesions are visualized. Axial diffusion-weighted images reveal no evidence of acute or subacute infarction. There is no evidence of ventricular dilatation. Proton density T2-weighted and FLAIR images reveal scattered foci of increased T2 signal within the white matter, likely on a small vessel basis. There is an old left parietotemporal lobe cortical infarct, and old cerebellar infarcts. There are no abnormal flow voids. There is no evidence of pathologic enhancement. IMPRESSION: 1. No acute intracranial findings 2. No evidence of intracranial mass 3. No evidence of acute or subacute infarction 4. Old left parietotemporal and cerebellar infarcts ACT 112: Negative or not required by law. Electronically signed by: Octavio Penny M.D. 06/23/2020 9:02 AM PG Care Time/CCT Total # of Minutes Spent Total Time Spent with Patient: Total time spent is greater than 50% in coordination of care (as documented) at patient's floor/unit and/or counseling patient: Coding Level of Care Code 00869 OBS Care - Level 3 Diagnoses Muscle spasticity M62.838 Migraine G43.909 Factor II deficiency D68.2 Depression F32.9 Time Spent (min) 100 Comment add [id number] to be [id number]
[2020-06-28] MEDS: DOXYCYCLINE HYCLATE 100 MG CAP PO SCH (11:31)
--- NOTE | 2020-06-28 16:02 | Cardiology Consultation ---
Date of Consultation June 28, 2020 Assessment & Plan (1) Chest pain: (2) Palpitations: (3) Near syncope: ASSESSMENT/PLAN: 1. Chest pain: Her chest pain is atypical and not consistent with ischemic heart disease. She has had persistent pain for more than 24 hours now and has had negative troponin and unremarkable ECG. No further ischemic evaluation recommended at this time. Recommend evaluation for noncardiac chest pain. 2. Palpitations: She describes her heart beating very slowly as if it was going to stop. She had a 48 hour Holter monitor recently but no symptoms as an outpatient. Recommended 30 day event monitor if there is no significant finding on telemetry while hospitalized. She is not sure if she would like to undergo a 30 day event monitor at this time. If she chooses to do so, please notify Cardiology and we can help arrange or she can call the cardiology office or have it arranged to her PCP. 3. Near-syncope: She did not lose consciousness and is not clear if she had near-syncope or simply some form of neurologic symptoms based on her inability to speak or flex her left arm or left leg. Recommend monitor as above. 4. Disposition: Cardiology will sign off at this time. To further clarify her palpitations to see if they correlate with cardiac etiology, event monitor was recommended as above. Patient care discussed with Dr. Hussein of the primary hospitalist service. Thank you for allowing me to participate in the care of your patient. Please call for any other questions or concerns. Sincerely, Juan Self M.D. History of Present Illness Reason for Consultation: "Palpitations, near-syncope, chest pain" Requesting Physician: Dr. Brown Attending Physician: William Hussein MD History of Present Illness Ms. Duron is a pleasant 65-year-old female with a history significant for stroke, recurrent DVT, lung cancer status post chemotherapy and radiation, marginal zone lymphoma, recurrent cellulitis, C diff, celiac disease, hepatitis C (treated 2013), hypertension, and primary hypercoagulable state on anticoagulation therapy. She was hospitalized on 06/27/2020 for multiple symptoms. She states that she was sleeping on a couch yesterday in the afternoon and she felt as though her heart was going to stop. She states her heart felt as if it was beating quite slow. She did not check her pulse however. She thought she was going to . She then became more alert and it felt as though her heart was beating fast. Her left arm felt stiff as well as her left leg. She demonstrated the fact that her arm was extended at the elbow and she was unable to move it, similar to her left leg. She yelled for her son and when he came to a sister, she states that she was no longer able to speak and could merely point at her arm. The symptoms persisted for few minutes and then she felt funny. On the way to the hospital, she once again states that her heart felt funny like it was going to slow down again however it did not. She states that her arms drop to her side and she stopped talking. She reports that her eyes rolled back in her head and that she threw her head backward while sitting in the car. She states that her son then try to a sister from the front seat. His girlfrie nd was driving. She then developed which she describes as big pain in the chest that was constant from that moment on since however the pain has since improved. This pain was felt in the left side of her chest but also radiated to the right side of her back. The left side chest pain persists and was present during our meeting. She denies syncope, shortness of breath, edema, or bleeding. She states that she has had palpitations in the past but could not further quantitate or give any other details. She underwent a Holter monitor as an outpatient for 48 hours but states that she did not experience any symptoms wearing it. The Holter monitor was performed on 05/19/2020 and demonstrated sinus rhythm with an average heart rate of 75, ranging 43-129. Very rare PACs and rare PVCs were noted. No arrhythmia. She also underwent ECHO on 06/04/2020 which demonstrated normal biventricular systolic function and no significant valvular abnormalities. She recalls undergoing chemotherapy in 2010 or 2012 as well as XRT for lung cancer. She apparently has another nodule/mass on lung imaging and is awaiting biopsy. She has had hematuria and has ureteral stents in place. Review of systems: As above. Review of systems otherwise negative/unremarkable. Family history: Father from [place] in his 60s. Social history: She smoked 1-1.5 packs per day until 2010. She denies alcohol abuse. She uses medical marijuana but denies any illicit drugs. She is a . She lives at home. Her son and his girlfriend live with her. She also has a daughter. She has step children but states that she is no longer close with them. She was unaccompanied during our meeting. Allergies Allergy/AdvReac Type Severity Reaction Status Date / Time Iodinated Contrast Media Allergy Intermediate Hives Verified 06/27/20 16:01 iodine Allergy Intermediate HIVES Verified 06/27/20 16:01 levofloxacin Allergy Intermediate numbness/we Verified 06/27/20 16:01 akness pregabalin Allergy Intermediate fever?/?cher Verified 06/27/20 16:01 h strawberry Allergy Intermediate HIVES Verified 06/27/20 16:01 Sulfa (Sulfonamide Allergy Intermediate RASH/HIVES Verified 06/27/20 16:01 Antibiotics) allopurinol Allergy Mild rash Verified 06/27/20 16:01 venlafaxine Allergy Unknown UNKNOWN Verified 06/27/20 16:01 gluten AdvReac Severe Celiac Dz Verified 06/27/20 16:01 = GI symptoms adhesive AdvReac Intermediate red torn Verified 06/27/20 16:01 skin propoxyphene AdvReac Intermediate [employer] side Verified 06/27/20 16:01 effects bee stings Allergy Severe Difficulty Uncoded 06/27/20 16:01 Breathing Home Medications Home Medications Medication Instructions Recorded Confirmed Type Florajen3 1 cap PO QAM 07/16/18 06/27/20 History Prolia 60 mg SUBCUT Q6M 07/16/18 06/27/20 History butorphanol tartrate 1 spray INTRANASAL Q3H PRN 07/16/18 06/27/20 History cetirizine [Zyrtec] 10 mg PO QAM 07/16/18 06/27/20 History coenzyme Q10 [CoQ-10] 200 mg PO QAM 07/16/18 06/27/20 History folic acid 1 mg PO QAM 07/16/18 06/27/20 History magnesium oxide 400 mg PO QAM 07/16/18 06/27/20 History multivitamin 1 tab PO QAM 07/16/18 06/27/20 History triamcinolone acetonide 1 applic TOPICAL BID PRN 07/16/18 06/27/20 History vitamin B complex [B-Complex] 1 tab PO QAM 07/16/18 06/27/20 History calcium carbonate-vitamin D3 600 1 tab PO QPM 11/26/18 06/27/20 History mg (1,500 mg)-800 unit tablet cyanocobalamin (vitamin B-12) 1,000 mcg IM MONTHLY 02/10/19 06/27/20 History ferrous sulfate [iron] 325 mg PO QAM 02/10/19 06/27/20 History mirabegron 50 mg tablet,extended 50 mg PO HS #90 tab 08/20/19 06/27/20 Rx release 24 hr psyllium husk [Metamucil] 0.52 g PO QAM 08/28/19 06/27/20 History vitamin E 400 unit PO QAM 08/28/19 06/27/20 History budesonide-formoterol HFA 160 2 puff INHALATION BID #10.2 gm 09/15/19 06/27/20 Rx mcg-4.5 mcg/actuation aerosol inhaler albuterol sulfate 90 mcg/actuation 2 puff INHALATION QID PRN #8.5 gm 11/12/19 06/27/20 Rx aerosol inhaler vancomycin 125 mg capsule 125 mg PO 2XWK #30 cap 12/01/19 06/27/20 Rx methocarbamol 750 mg tablet See Rx Instructions .ROUTE 01/20/20 06/27/20 Rx .COMPLEX #60 tablet oxybutynin chloride 10 mg 10 mg PO QAM #90 tab 01/20/20 06/27/20 Rx tablet,extended release 24 hr rizatriptan 10 mg disintegrating See Rx Instructions PO .COMPLEX #9 02/09/20 06/27/20 Rx tablet tab topiramate 100 mg tablet 100 mg PO BID #60 tab 02/09/20 06/27/20 Rx ergocalciferol (vitamin D2) 1,250 50,000 units PO WEEKLY #12 cap 04/13/20 06/27/20 Rx mcg (50,000 unit) capsule gabapentin 400 mg capsule 400 mg PO DAILY cap 04/26/20 06/27/20 History lidocaine 5 % topical cream 1 appln TOP TID PRN #30 gm 05/14/20 06/27/20 Rx clonazepam 1 mg tablet 1 mg PO HS #30 tab 06/09/20 06/27/20 Rx metoprolol succinate 50 mg 50 mg PO QAM #30 tab 06/09/20 06/27/20 Rx tablet,extended release 24 hr potassium chloride 20 mEq 20 meq PO QAM #30 tab 06/09/20 06/27/20 Rx tablet,extended release enoxaparin 40 mg/0.4 mL See Rx Instructions SQ QAM 30 Days 06/10/20 06/27/20 Rx subcutaneous syringe #30 syr quetiapine 50 mg tablet 50 mg PO ONCE HS 30 Days #30 tab 06/10/20 06/27/20 Rx cephalexin 500 mg capsule 500 mg PO QAM #30 cap 06/16/20 06/27/20 Rx Medical Marijuana 1 dose PO DIRECTED PRN 06/27/20 06/27/20 History [id number] See Rx Instructions .ROUTE 06/27/20 06/27/20 History .COMPLEX PRN doxycycline hyclate 100 mg PO QAM 06/27/20 06/27/20 History Patient History Medical History Anemia Asthma Cardiomyopathy HX (EF 60-65% PER 2018 ECHO) Celiac disease History of Hep C 2013 Cellulitis RECURRENT B/L LE - ON PROPHYLACTIC ABX (FOLLOWS W/ DR. BAUM). CURRENTLY NOT ACTIVE. 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 Psoriasis Pulmonary emphysema Recurrent cellulitis Stroke 1996= DECREASED RIGHT SIDED SENSATION Thrombocytopenia CHRONIC Urge and stress incontinence Venous stasis Surgical History H/O bursectomy RIGHT KNEE History of bone marrow biopsy History of bronchoscopy History of carpal tunnel release LEFT History of cystoscopy most recent 10/27/2019 [place] Cystoscopy, Bilateral Retrograde, Bilateral Stent Exchange, Injection of Urethral Bulking Agent History of esophagogastroduodenoscopy (EGD) History of liver biopsy History of ureter stent MULTIPLE Hx of bladder repair surgery FOR PROLAPSE Hx of colonoscopy Hx of tonsillectomy Hx of tubal ligation Family History Unknown Heart disease Hypertension Mother Psoriasis Diabetes Social History Smoking Status: Former smoker Smoking End Date: 03/07/2011; Second Hand Exposure: No; Hx Alcohol Use: No Hx Substance Use: Yes Last Used Substance: Hours (ago) Last Used Substance Other:: Daily Substance Use Type Other:: AM and PM; medical marijuana Preferred Language: Japanese Communication Ability: Effective Visual Impairment: No Limitations Outside Cutter Required: No Beliefs That Will Affect Care: None Current Living Situation: Family Current Living Situation Comment: Son and gf Feels Safe at Home: Yes Safety Concerns: Feels Safe At This Time Physical Exam Physical Exam: Gen.: No acute distress. Alert and oriented. HEENT: Anicteric sclera. Neck: No JVD. No bruits. Normal carotid upstrokes bilaterally. Cardiac: PMI was nondisplaced. No ventricular heave. Regular rate and rhythm. Normal S1-S2. No murmurs, rubs, or gallops. Pulmonary: Clear to auscultation bilaterally without wheezes, rales, or rhonchi. Abdomen: Soft, nontender, nondistended, with normoactive bowel sounds. No bruits noted. Extremities: 2+ radial pulses bilaterally. 2+ posterior tibialis pulses bilaterally. Trace bilateral lower extremity edema. No cyanosis. Psychiatric: Affect appears appropriate. Chest: Nontender to palpation. Results & Data ([facility]) Vital Signs (Past 12 Hours) Vital Signs Temp Pulse Pulse Pulse Resp BP Pulse Ox 06/28/20 15:16 36.2 C L 61 17 100/60 100 06/28/20 11:52 36.5 C 64 20 105/63 94 06/28/20 07:08 81 06/28/20 06:15 36.4 C L 74 18 100/59 L 100 Laboratory Results Laboratory Results - last 24 hr 06/27/20 06/27/20 06/27/20 15:38 15:38 16:08 WBC RBC Hgb Hct MCV MCH MCHC RDW Std Deviation RDW Coeff of Irasema Plt Count MPV Immature Gran % (Auto) Neut % (Auto) Lymph % (Auto) [place] % (Auto) Eos % (Auto) Baso % (Auto) Neut # (Auto) Lymph # (Auto) [place] # (Auto) Eos # (Auto) Baso # (Auto) Immature Gran # (Auto) PT 11.3 INR 1.1 APTT 34.6 H PTT Ratio 1.2 Sodium 143 Potassium 3.8 Chloride 109 H Carbon Dioxide 27 Anion Gap 7.0 BUN 20 H Creatinine 1.37 H Est Cr Clr Drug Dosing 34.6 Est GFR ( Amer) 46.8 Est GFR (Non-Af Amer) 40.4 BUN/Creatinine Ratio 14.7 Glucose 89 Calcium 8.5 Total Bilirubin 0.3 AST 14 L ALT 27 Alkaline Phosphatase 67 Troponin I < 0.015 Total Protein 6.7 Albumin 3.5 Globulin 3.2 Albumin/Globulin Ratio 1.1 Lipase 96 TSH Urine Color Yellow Urine Appearance Cloudy A Urine pH 7.0 Ur Specific [place] 1.012 Urine Protein 2+ H Urine Glucose (UA) Negative Urine Ketones Negative Urine Blood 3+ H Urine Nitrite Negative Urine Bilirubin Negative Urine Urobilinogen Negative Ur Leukocyte Esterase 3+ H Urine WBC (Auto) >30 H Urine RBC (Auto) >30 H U Hyaline Cast (Auto) 1-5 U Epithel Cells (Auto) 10-20 H Urine Bacteria (Auto) Negative Tiss Transglutamin IgA 06/28/20 06/28/20 06/28/20 05:41 05:41 05:41 WBC 5.99 RBC 3.94 L Hgb 12.8 Hct 40.3 MCV 102.3 H MCH 32.5 MCHC 31.8 L RDW Std Deviation 51.1 H RDW Coeff of Irasema 13.5 Plt Count 140 MPV 9.7 Immature Gran % (Auto) 0.2 Neut % (Auto) 41.1 Lymph % (Auto) 41.6 [place] % (Auto) 14.2 Eos % (Auto) 2.7 Baso % (Auto) 0.2 Neut # (Auto) 2.47 Lymph # (Auto) 2.49 [place] # (Auto) 0.85 H Eos # (Auto) 0.16 Baso # (Auto) 0.01 Immature Gran # (Auto) 0.01 PT INR APTT PTT Ratio Sodium 140 Potassium 4.0 Chloride 108 H Carbon Dioxide 27 Anion Gap 5.0 BUN 20 H Creatinine 1.41 H Est Cr Clr Drug Dosing 33.1 Est GFR ( Amer) 45.2 Est GFR (Non-Af Amer) 39.0 BUN/Creatinine Ratio 14.4 Glucose 95 Calcium 8.7 Total Bilirubin AST ALT Alkaline Phosphatase Troponin I < 0.015 Total Protein Albumin Globulin Albumin/Globulin Ratio Lipase TSH 0.943 Urine Color Urine Appearance Urine pH Ur Specific [place] Urine Protein Urine Glucose (UA) Urine Ketones Urine Blood Urine Nitrite Urine Bilirubin Urine Urobilinogen Ur Leukocyte Esterase Urine WBC (Auto) Urine RBC (Auto) U Hyaline Cast (Auto) U Epithel Cells (Auto) Urine Bacteria (Auto) Tiss Transglutamin IgA Pending Diagnostic Findings Telemetry personally reviewed: Sinus rhythm. No arrhythmia. ECG personally reviewed: ECG 06/27/2020: Sinus rhythm 72 beats per minute. Normal ECG. No significant change from 11/16/2019 ECG. Echo and Holter report reviewed as noted above in the HPI. Medications Administered Current Inpatient Medications Cephalexin HCl (Cephalexin 500 Mg Cap) 500 mg PO [facility] Stop: 07/28/20 08:59 Last Admin: 06/28/20 08:10 Dose: 500 mg Documented by: Cetirizine HCl (Cetirizine Hcl 10 Mg Tablet) 10 mg PO [facility] Stop: 07/28/20 08:59 Last Admin: 06/28/20 08:10 Dose: 10 mg Documented by: Clonazepam (Clonazepam 1 Mg Tab) 1 mg PO [facility] Stop: 07/27/20 20:59 Last Admin: 06/27/20 22:21 Dose: 1 mg Documented by: Doxycycline Hyclate (Doxycycline Hyclate 100 Mg Cap) 100 mg PO DAILY@1100 [facility] Stop: 07/28/20 10:59 Last Admin: 06/28/20 11:31 Dose: 100 mg Documented by: Enoxaparin Sodium (Enoxaparin Inj 40 Mg/0.4 Ml Syr) 40 mg SQ [facility] Stop: 07/28/20 08:59 Last Admin: 06/28/20 08:12 Dose: 40 mg Documented by: Ferrous Sulfate (Ferrous Sulfate 325 Mg Tab) [facility] Stop: 07/28/20 08:59 Last Admin: 06/28/20 08:10 Dose: 325 mg Documented by: Fluticasone/Vilanterol (Fluticasone/Vilanterol 200/25mcg 14 Puffs/Inhaler) 1 puffs INH DAILY [facility] Stop: 07/28/20 08:59 Last Admin: 06/28/20 08:08 Dose: 1 puffs Documented by: Folic Acid (Folic Acid 1 Mg Tab) 1 mg PO QAM [facility] Stop: 07/28/20 08:59 Last Admin: 06/28/20 08:10 Dose: 1 mg Documented by: Gabapentin (Gabapentin 400 Mg Cap) 400 mg PO DAILY [facility] Stop: 07/28/20 08:59 Last Admin: 06/28/20 08:11 Dose: 400 mg Documented by: Magnesium Oxide (Magnesium Oxide 400 Mg Tab) 400 mg PO QAM [facility] Stop: 07/28/20 08:59 Last Admin: 06/28/20 08:10 Dose: 400 mg Documented by: Methocarbamol (Methocarbamol 750 Mg Tablet) 750 mg PO BID [facility] Stop: 07/27/20 20:59 Last Admin: 06/28/20 08:12 Dose: 750 mg Documented by: Metoprolol Succinate (Metoprolol Succ 50mg Ext Rel Tab) 50 mg PO QAM [facility] Stop: 07/28/20 08:59 Last Admin: 06/28/20 08:11 Dose: 50 mg Documented by: Mirabegron (Mirabegron Er 25 Mg Tab) 50 mg PO HS [facility] Stop: 07/27/20 20:59 Last Admin: 06/27/20 22:23 Dose: 50 mg Documented by: Miscellaneous Medication (Medical Marijuana) 1 dose PO BID PRN PRN Reason: Pain Stop: 07/27/20 21:46 Multivitamins (Multivitamin Tab) 1 tab PO QAM [facility] Stop: 07/28/20 08:59 Last Admin: 06/28/20 08:12 Dose: 1 tab Documented by: Multivitamins/Minerals (Calcium 600mg + Vit D 400 Iu Tab) 1 tab PO QPM [facility] Stop: 07/27/20 20:59 Last Admin: 06/27/20 22:21 Dose: Not Given Documented by: Oxybutynin Chloride (Oxybutynin Chloride Xl 5 Mg Tabcr) 10 mg PO QAM [facility] Stop: 07/28/20 08:59 Last Admin: 06/28/20 08:10 Dose: 10 mg Documented by: Potassium Chloride (Potassium Chloride 20 Meq Tabcr) 20 meq PO QAM [facility] Stop: 07/28/20 08:59 Last Admin: 06/28/20 08:12 Dose: 20 meq Documented by: Psyllium Hydrophilic Mucilloid (Psyllium 58.6% Powder Packet) 1 pkt PO QAM [facility] Stop: 07/28/20 08:59 Last Admin: 06/28/20 08:13 Dose: 1 pkt Documented by: Quetiapine Fumarate (Quetiapine Fumarate 25 Mg Tablet) 50 mg PO HS [facility] Stop: 07/27/20 20:59 Last Admin: 06/27/20 22:23 Dose: 50 mg Documented by: Raspberry (Raspberry Syrup 5 Ml Udp) 5 ml PO MoFr@0900 [facility] Stop: 07/27/20 08:59 Last Admin: 06/28/20 08:10 Dose: 5 ml Documented by: Topiramate (Topiramate 100 Mg Tab) 100 mg PO BID [facility] Stop: 07/27/20 20:59 Last Admin: 06/28/20 08:12 Dose: 100 mg Documented by: Triamcinolone Acetonide (Triamcinolone Acet 0.025% Cr 15 Gm Tube) 1 appln TOP BID PRN PRN Reason: psoriasis Stop: 07/27/20 20:43 Vancomycin HCl (Vancomycin Hcl 125 Mg/2.5ml Soln) 125 mg PO MoFr@0900 [facility] Stop: 07/28/20 08:59 Last Admin: 06/28/20 08:57 Dose: 125 mg Documented by: Vitamin B Complex (Vitamin B Complex Tab) [facility] [place] Stop: 07/28/20 08:59 Last Admin: 06/28/20 08:10 Dose: 1 tab Documented by: Vitamin E (Tocopheryl, Dl-Alpha 400 Units Cap) 400 units PO QAM [facility] Stop: 07/28/20 08:59 Last Admin: 06/28/20 08:10 Dose: 400 units Documented by: PG Care Time/CCT Total # of Minutes Spent Total Time Spent with Patient: Total time spent is greater than 50% in coordination of care (as documented) at patient's floor/unit and/or counseling patient: Coding Level of Care Code 33461 Office/Outpt Visit, New Diagnoses Chest pain R07.9 Chest pain type: unspecified Palpitations R00.2 Near syncope R55 (1) Chest pain Chest pain type: unspecified Qualified Code(s): R07.9 - Chest pain, unspecified
[2020-06-28] MEDS ORDERED: Nursing to Pharmacy Communication SCH (20:30)
[2020-06-28] MEDS: MIRABEGRON ER 25 MG TAB PO SCH (22:10)
[2020-06-28] MEDS: CALCIUM 600MG + VIT D 400 IU TAB PO SCH (22:10)
[2020-06-28] MEDS: clonazePAM 1 MG TAB PO SCH (22:11)
[2020-06-28] MEDS: QUETIAPINE FUMARATE 25 MG TABLET PO SCH (22:11)
[2020-06-29 06:01] LABS: Hematocrit (blood only) 35.7 % (37-47); Hemoglobin 11.8 g/dL (12.0-16.0); Mean Corpuscular Hemoglobin 32.6 pg (25-34); Mean Corpuscular Hgb Conc 33.1 g/dL (32-36); Mean Corpuscular Volume 98.6 fL (80-100); Platelet Count 109 K/uL (130-400); RDW Coefficient of Variation 13.4 % (11.5-14.5); Red Blood Count 3.62 M/uL (4.2-5.4); White Blood Count 4.64 K/uL (4.8-10.8)
[2020-06-29 06:27] LABS: BUN Creatinine Ratio 16.7 (10-20); Calcium 9.5 mg/dl (8.5-10.1); Creatinine Clr Calc Pharmacy 43.2 ml/min; Est GFR (African American) 62.4; Est GFR (Non-African American) 53.8; Potassium 3.8 mmol/L (3.5-5.1)
[2020-06-29] MEDS: FLUTICASONE/VILANTEROL 200/25MCG 14 PUFFS/INHALER INH SCH (08:53)
[2020-06-29] MEDS: VITAMIN B COMPLEX TAB PO SCH (08:54)
[2020-06-29] MEDS: CETIRIZINE HCL 10 MG TABLET PO SCH (08:54)
[2020-06-29] MEDS: ENOXAPARIN INJ 40 MG/0.4 ML SYR SQ SCH (08:54)
[2020-06-29] MEDS: MAGNESIUM OXIDE 400 MG TAB PO SCH (08:54)
[2020-06-29] MEDS: METOPROLOL SUCC 50MG EXT REL TAB PO SCH (08:55)
[2020-06-29] MEDS: POTASSIUM CHLORIDE 20 MEQ TABCR PO SCH (08:55)
[2020-06-29] MEDS: GABAPENTIN 400 MG CAP PO SCH (08:55)
[2020-06-29] MEDS: FERROUS SULFATE 325 MG TAB PO SCH (08:55)
[2020-06-29] MEDS: FOLIC ACID 1 MG TAB PO SCH (08:56)
[2020-06-29] MEDS: OXYBUTYNIN CHLORIDE XL 5 MG TABCR PO SCH (08:56)
[2020-06-29] MEDS: TOPIRAMATE 100 MG TAB PO SCH (08:56)
[2020-06-29] MEDS: cephALEXin 500 MG CAP PO SCH (08:56)
[2020-06-29] MEDS: TOCOPHERYL, DL-ALPHA 400 UNITS CAP PO SCH (08:56)
[2020-06-29] MEDS: PSYLLIUM 58.6% POWDER PACKET PO SCH (08:57)
[2020-06-29] MEDS: METHOCARBAMOL 750 MG TABLET PO SCH (08:58)
[2020-06-29] MEDS: MULTIVITAMIN TAB PO SCH (08:58)
[2020-06-29] MEDS: DOXYCYCLINE HYCLATE 100 MG CAP PO SCH (11:28)
--- NOTE | 2020-06-29 11:37 | Neurology Progress Note ---
Date of Service June 29, 2020 Assessment & Plan (1) Muscle spasticity: (2) Migraine: (3) Factor II deficiency: (4) Depression: This patient has a long-standing history of refractory, intermittent migraine headaches which have been spontaneously improve over time compared to previous decades of her life. She is stable with this issue currently. She has a history of a significant left temporoparietal stroke in 1996 leaving her with some right-sided numbness. This is also stable. Currently on neurologic examination she is at baseline with no other focal neurologic findings, meningeal signs, or encephalopathy. she has a history of multiple other smaller strokes but none recently. She has Factor 2 deficiency. The patient has a history of non-Hodgkin's lymphoma and small cell lung carcinoma 7-8 years ago and currently has a new right lung lesion seen on imaging. This is likely recurrence small cell carcinoma. She had cardiopulmonary symptoms yesterday which led to her admission. There was some brief left arm and leg stiffness that occurred for a few minutes, acc ompanied by some decreased ability to speech, but this all resolved by the time she came to the emergency room and did not reoccur. Patient does have a remote history of seizures , but these have not been an issue for many years. The topiramate and gabapentin that she is on for migraine headaches would help prevent seizures as well. She was awake and alert with good recall of the events of yesterday. She has had no further events since admission. She has a history of depression and possibly some psychosis. This has been stable eyes with low-dose Seroquel and her mood seems fairly good currently. An MRI of the brain several days prior to admission revealed no new tumor or stroke. Recommendations: 1. continue gabapentin, and quetiapine at current doses. 2. Increase topiramate to 100 milligrams in the morning and 200 milligrams at night. As an outpatient, I may increase to 200 milligrams twice daily in a few weeks, if needed. 3. Pulmonology to follow up on lung nodule. 4. I will follow As an outpatient Overall, I spent a total of 35 minutes with this case including review of records, review of MRI films, direct evaluation the patient at bedside, and discussion of the case with the patient at bedside as well as Dr. Hussein, including differential diagnosis and treatment options. Admission and Anticipated Discharge Date Admission Date: June 27, 2020 Subjective And has some minor chest pain and some upper thoracic pain. She does not have a headache currently but has been getting headaches intermittently lately. She has discomfort in her feet and occasionally her left leg will stiffen for a few minutes. Her episode that brought her to the hospital consisted of some stiffening in tremor/jerking of the left upper extremity lasting a couple of minutes and during this she had the inability to get words out well for a minute or so. She was perfectly awake and aware of what happened. Blood pressure is 105/70. TSH was 0.7. CBC shows a mild anemia and Chem profile is unremarkable. Apparently she has been seen by Psychiatry but there is no note yet. Results & Data ([facility]) Vital Signs (Past 12 Hours) Vital Signs Temp Pulse Pulse Resp BP Pulse Ox 06/29/20 07:36 36.4 C L 85 17 105/70 100 06/29/20 07:12 66 06/29/20 03:45 36.5 C 73 18 103/66 100 06/28/20 23:38 36.4 C L 67 18 106/62 100 06/28/20 23:30 72 Exam (Neuro) Physical Exam: She is awake and alert. Speech is without aphasia or dysarthria. Mood is down and affect is mildly flat. She is pleasant and cooperative however. Memory is reasonable to conversation. Extraocular eye muscles are intact without nystagmus. There is no facial droop Strength is symmetrical in the limbs and coordination is normal in the arms. There are no abnormal involuntary movements noted. PG Care Time/CCT Total # of Minutes Spent Total Time Spent with Patient: Total time spent is greater than 50% in coordination of care (as documented) at patient's floor/unit and/or counseling patient: Coding Level of Care Code 10166 Subseq Hosp Care Lvl 3 Diagnoses Muscle spasticity M62.838 Migraine G43.909 Factor II deficiency D68.2 Depression F32.9
--- NOTE | 2020-06-29 12:16 | Psychiatric Consultation ---
Date of Consultation June 29, 2020 Impression / Recommendations Impression Dr. Guille Metz was directly involved in review and discussion of the patient's case and participated in medical decision making regarding treatment recommendations. RECOMMENDATIONS: 06/29 - Psychiatric consultation requested by hospitalist service to evaluate patient for anxiety and depression, with history of small cell lung carcinoma with new right lung lesion which is concerning for recurrence. - Reviewed outpatient primary care records as well as other specialist's consultations (specifically neurology, as they have been involved in patient's treatment for several years). Agree that patient would benefit from referral for outpatient psychiatric treatment, for both medication management and therapy - especially given likelihood of recurrence of lung cancer and numerous other medical issues. - There is mention in various documentation of "auditory hallucinations." When patient was asked about this, she suggests the "voices" occur only surrounding sleep states. Differential includes hypnopompic/hypnagogic hallucinations vs. primary mood disorder with psychotic features vs. organic causes in the context of numerous chronic medical conditions. Continuation of quetiapine certainly seems reasonable, and does could be titrated as needed in the future. - Pt denies suicidal ideation or safety concerns. No indication at this time for inpatient psychiatric admission. Appreciate the opportunity to participate in the care of this patient. Risk Factors Assessment Do You Have Access To A Gun?: Yes Psych History Identifying Data 65-year-old female admitted medically on 06/27/2020 after presenting to the ED with her son due to concern for palpitation and muscle spasticity. Psychiatric consultation was requested by primary team to evaluate patient for depression and anxiety, with recent concern for recurrence of lung carcinoma. Chief Complaint "Oh, my heart...at first it was going real slow. And then my arm got stiff, and I couldn't say anything anymore." History of Present Illness Aleja Duron is a 65-year-old female admitted medically on 06/27/2020 after presenting to the ED with her son with complaints of palpitation and muscle spasticity. It was reported that patient had the sensation that her heart was beating very slowly and then noticed rigidity of her left arm. Pt has been seen by cardiology during her admission, and has also been seen by neurology - fortunately the same provider she meets with as an outpatient. Psychiatric consultation was requested to evaluate patient for anxiety and depression, in the setting of suspected recurrence of lung carcinoma. Pt was cooperative with psychiatric assessment. She shares with this provider "Oh, my heart...at first it was going real slow. And then my arm got stiff, and I couldn't say anything anymore." Pt states that when she regained ability to verbalize words, she had requested that her son and his girlfriend bring her to the hospital. Pt states she has not had a recurrence of these episodes since she was admitted. Pt admits that she is aware of concern surrounding a recent lung nodule, with documented suspicion for recurrence of lung cancer. Pt has an extensive and complex past medical history and likens this to "I'm a cat with 9 lives. I've had a stroke, a serious bleed, and several types of cancers. I've had surgery, it's been a lot. I do feel like I'm running out of lives." Pt does admit that she has not struggled with suicidal ideation and denies safety concerns at home. Pt states she has not previously met with a therapist, but would be interested in a referral for outpatient psychiatric treatment. Regarding her current mood, patient states "I can't say I've been really happy since COVID." She admits to increased anxiety related to leaving her home, given her medical history. Pt does mention poor sleep, especially here in the hospital. She states that at home, she occasionally wakes up during the night and can hear voices "telling me, 'you're not actually awake'." Pt states that she does not hear the voices aside from the period of time surrounding sleep. Pt denies other signs/symptoms of psychosis. She denies history of treatment for anxiety or depression. Although patient is willing for referrals for outpatient treatment, she is not currently willing to make medication adjustments or adding any new medications. She denies any additional needs or concerns at this time Past Psychiatric History Outpatient Services: None presently, though PCP documentation suggests recent attempts to refer for treatment Previous Psych Admissions: Denied Do You Have Access To A Gun?: Yes History of Previous Suicide Attempt: No Past Medication Trials: Per available documentation - patient denies history of treatment for depression/anxiety, claiming the following are for migraines: 1. Seroquel 2. Klonopin 3. Gabapentin 4. Topamax Allergies Allergy/AdvReac Type Severity Reaction Status Date / Time Iodinated Contrast Media Allergy Intermediate Hives Verified 06/27/20 16:01 iodine Allergy Intermediate HIVES Verified 06/27/20 16:01 levofloxacin Allergy Intermediate numbness/we Verified 06/27/20 16:01 akness pregabalin Allergy Intermediate fever?/?cher Verified 06/27/20 16:01 h strawberry Allergy Intermediate HIVES Verified 06/27/20 16:01 Sulfa (Sulfonamide Allergy Intermediate RASH/HIVES Verified 06/27/20 16:01 Antibiotics) allopurinol Allergy Mild rash Verified 06/27/20 16:01 venlafaxine Allergy Unknown UNKNOWN Verified 06/27/20 16:01 gluten AdvReac Severe Celiac Dz Verified 06/27/20 16:01 = GI symptoms adhesive AdvReac Intermediate red torn Verified 06/27/20 16:01 skin propoxyphene AdvReac Intermediate ROUTE [employer]IE[employer]IVER side Verified 06/27/20 16:01 effects bee stings Allergy Severe Difficulty Uncoded 06/27/20 16:01 Breathing Home Medications Home Medications Medication Instructions Recorded Confirmed Type Florajen3 1 cap PO QAM 07/16/18 06/27/20 History Prolia 60 mg SUBCUT Q6M 07/16/18 06/27/20 History butorphanol tartrate 1 spray INTRANASAL Q3H PRN 07/16/18 06/27/20 History cetirizine [Zyrtec] 10 mg PO QAM 07/16/18 06/27/20 History coenzyme Q10 [CoQ-10] 200 mg PO QAM 07/16/18 06/27/20 History folic acid 1 mg PO QAM 07/16/18 06/27/20 History magnesium oxide 400 mg PO QAM 07/16/18 06/27/20 History multivitamin 1 tab PO QAM 07/16/18 06/27/20 History triamcinolone acetonide 1 applic TOPICAL BID PRN 07/16/18 06/27/20 History vitamin B complex [B-Complex] 1 tab PO QAM 07/16/18 06/27/20 History calcium carbonate-vitamin D3 600 1 tab PO QPM 11/26/18 06/27/20 History mg (1,500 mg)-800 unit tablet cyanocobalamin (vitamin B-12) 1,000 mcg IM MONTHLY 02/10/19 06/27/20 History ferrous sulfate [iron] 325 mg PO QAM 02/10/19 06/27/20 History mirabegron 50 mg tablet,extended 50 mg PO HS #90 tab 08/20/19 06/27/20 Rx release 24 hr psyllium husk [Metamucil] 0.52 g PO QAM 08/28/19 06/27/20 History vitamin E 400 unit PO QAM 08/28/19 06/27/20 History budesonide-formoterol HFA 160 2 puff INHALATION BID #10.2 gm 09/15/19 06/27/20 Rx mcg-4.5 mcg/actuation aerosol inhaler albuterol sulfate 90 mcg/actuation 2 puff INHALATION QID PRN #8.5 gm 11/12/19 06/27/20 Rx aerosol inhaler vancomycin 125 mg capsule 125 mg PO 2XWK #30 cap 12/01/19 06/27/20 Rx methocarbamol 750 mg tablet See Rx Instructions .ROUTE 01/20/20 06/27/20 Rx .COMPLEX #60 tablet oxybutynin chloride 10 mg 10 mg PO QAM #90 tab 01/20/20 06/27/20 Rx tablet,extended release 24 hr rizatriptan 10 mg disintegrating See Rx Instructions PO .COMPLEX #9 02/09/20 06/27/20 Rx tablet tab topiramate 100 mg tablet 100 mg PO BID #60 tab 02/09/20 06/27/20 Rx ergocalciferol (vitamin D2) 1,250 50,000 units PO WEEKLY #12 cap 04/13/20 06/27/20 Rx mcg (50,000 unit) capsule gabapentin 400 mg capsule 400 mg PO DAILY cap 04/26/20 06/27/20 History lidocaine 5 % topical cream 1 appln TOP TID PRN #30 gm 05/14/20 06/27/20 Rx clonazepam 1 mg tablet 1 mg PO HS #30 tab 06/09/20 06/27/20 Rx metoprolol succinate 50 mg 50 mg PO QAM #30 tab 06/09/20 06/27/20 Rx tablet,extended release 24 hr potassium chloride 20 mEq 20 meq PO QAM #30 tab 06/09/20 06/27/20 Rx tablet,extended release enoxaparin 40 mg/0.4 mL See Rx Instructions SQ QAM 30 Days 06/10/20 06/27/20 Rx subcutaneous syringe #30 syr quetiapine 50 mg tablet 50 mg PO ONCE HS 30 Days #30 tab 06/10/20 06/27/20 Rx cephalexin 500 mg capsule 500 mg PO QAM #30 cap 06/16/20 06/27/20 Rx Medical Marijuana 1 dose PO DIRECTED PRN 06/27/20 06/27/20 History pxcenotopg-[id number] See Rx Instructions .ROUTE 06/27/20 06/27/20 History .COMPLEX PRN doxycycline hyclate 100 mg PO QAM 06/27/20 06/27/20 History acyclovir 400 mg tablet 400 mg PO BID #60 tab 06/29/20 Rx topiramate See Rx Instructions .ROUTE 06/29/20 Rx .COMPLEX #90 tab Family History Patient reports multiple male cousins on her maternal side committed suicide - suspected to be related to medical diagnoses/complications though information is unknown. Substance Abuse History Pt is a former smoker, quit in 2010. Reportedly has a history of heavy alcohol use prior to 2010 as well. Denies significant alcohol or tobacco use presently. Denies use of illicit substances. 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 BAUM). CURRENTLY NOT ACTIVE. 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 Psoriasis Pulmonary emphysema Recurrent cellulitis Stroke 1996= DECREASED RIGHT SIDED SENSATION Thrombocytopenia CHRONIC Urge and stress incontinence Venous stasis Surgical History H/O bursectomy RIGHT KNEE History of bone marrow biopsy History of bronchoscopy History of carpal tunnel release LEFT History of cystoscopy most recent 10/27/2019 [place] Cystoscopy, Bilateral Retrograde, Bilateral Stent Exchange, Injection of Urethral Bulking Agent History of esophagogastroduodenoscopy (EGD) History of liver biopsy History of ureter stent MULTIPLE Hx of bladder repair surgery FOR PROLAPSE Hx of colonoscopy Hx of tonsillectomy Hx of tubal ligation Family History Unknown Heart disease Hypertension Mother Psoriasis Diabetes Social History Smoking Status: Former smoker Second Hand Exposure: No; Hx Alcohol Use: No Hx Substance Use: Yes Last Used Substance: Hours (ago) Last Used Substance Other:: Daily Substance Use Type Other:: AM and PM; medical marijuana Preferred Language: Kyrgyz Communication Ability: Effective Visual Impairment: No Limitations Ed Tech Required: No Current Living Situation: Family Current Living Situation Comment: Son and gf Feels Safe at Home: Yes Physical Exam Psychiatric: Orientation: alert, oriented x 3 and cooperative Apperance: appropriately dressed and appeared stated age female of healthy- appearing weight, laying in bed in no acute distress. Pt is appropriately dressed in a hospital gown. She is wearing corrective lenses. Appearing only mildly unkempt, though hygiene appears adequate. Eye Contact: good eye contact Motor Behavior: no abnormal motor movements (observed while laying in bed ) Speech: normal rate/rhythm/volume of speech Affect: + depressed affect, + anxious affect and + tearful affect Mood: + depressed mood and + anxious mood Thought Process: goal directed thought process, clear/coherent thought process and thought association intact Thought Content: reality based without delusions; no hopelessness (but does state "I'm worried I'm running out of lives") and no worthlessness Suicidal Thoughts: denies suicidal thoughts, denies suicidal plan and denies suicidal intent Homicidal Thoughts: denies homicidal thoughts Hallucinations: + auditory hallucinations (reporting "voices" only surrounding sleep states); no visual hallucinations Cognition: recent memory grossly intact, attention grossly intact and language grossly intact Estimated Intelligence: consistent with education level Insight: + fair insight Judgement: + fair judgement Vital Signs (Past 24 Hours): Last Vital Signs Temp 36.4 C L 06/29/20 11:43 Pulse 90 06/29/20 11:43 Resp 18 06/29/20 11:43 BP 92/64 L 06/29/20 11:43 Pulse Ox 99 06/29/20 11:43 Review of Systems Constitutional: reports poor sleep, especially in the hospital setting Cardiovascular: denied Respiratory: denied Gastrointestinal: denied Neurological: denied Psychiatric: denies symptoms other than stated above Total of at least 10 systems reviewed, pertinent positives as above and in HPI. Results & Data (PSY) Medications Administered Cephalexin HCl (Cephalexin 500 Mg Cap) 500 mg PO [facility] Stop: 07/28/20 08:59 Last Admin: 06/29/20 08:56 Dose: 500 mg Documented by: [id number] Admin: 06/28/20 08:10 Dose: 500 mg Documented by: [id number] Cetirizine HCl (Cetirizine Hcl 10 Mg Tablet) 10 mg PO [facility] Stop: 07/28/20 08:59 Last Admin: 06/29/20 08:54 Dose: 10 mg Documented by: [id number] Admin: 06/28/20 08:10 Dose: 10 mg Documented by: [id number] Clonazepam (Clonazepam 1 Mg Tab) 1 mg PO [facility] Stop: 07/27/20 20:59 Last Admin: 06/28/20 22:11 Dose: 1 mg Documented by: [id number] Admin: 06/27/20 22:21 Dose: 1 mg Documented by: [id number] Doxycycline Hyclate (Doxycycline Hyclate 100 Mg Cap) 100 mg PO DAILY@1100 [facility] Stop: 07/28/20 10:59 Last Admin: 06/29/20 11:28 Dose: 100 mg Documented by: [id number] Admin: 06/28/20 11:31 Dose: 100 mg Documented by: [id number] Enoxaparin Sodium (Enoxaparin Inj 40 Mg/0.4 Ml Syr) 40 mg SQ [facility] Stop: 07/28/20 08:59 Last Admin: 06/29/20 08:54 Dose: 40 mg Documented by: [id number] Admin: 06/28/20 08:12 Dose: 40 mg Documented by: [id number] Ferrous Sulfate (Ferrous Sulfate 325 Mg Tab) 325 mg PO QAM [facility] Stop: 07/28/20 08:59 Last Admin: 06/29/20 08:55 Dose: 325 mg Documented by: [id number] Admin: 06/28/20 08:10 Dose: 325 mg Documented by: [id number] Fluticasone/Vilanterol (Fluticasone/Vilanterol 200/25mcg 14 Puffs/Inhaler) 1 puffs INH DAILY [facility] Stop: 07/28/20 08:59 Last Admin: 06/29/20 08:53 Dose: 1 puffs Documented by: [id number] Admin: 06/28/20 08:08 Dose: 1 puffs Documented by: [id number] Folic Acid (Folic Acid 1 Mg Tab) 1 mg PO QAM [facility] Stop: 07/28/20 08:59 Last Admin: 06/29/20 08:56 Dose: 1 mg Documented by: [id number] Admin: 06/28/20 08:10 Dose: 1 mg Documented by: [id number] Gabapentin (Gabapentin 400 Mg Cap) 400 mg PO DAILY [facility] Stop: 07/28/20 08:59 Last Admin: 06/29/20 08:55 Dose: 400 mg Documented by: [id number] Admin: 06/28/20 08:11 Dose: 400 mg Documented by: [id number] Magnesium Oxide (Magnesium Oxide 400 Mg Tab) 400 mg PO QAM [facility] Stop: 07/28/20 08:59 Last Admin: 06/29/20 08:54 Dose: 400 mg Documented by: [id number] Admin: 06/28/20 08:10 Dose: 400 mg Documented by: [id number] Methocarbamol (Methocarbamol 750 Mg Tablet) 750 mg PO BID [facility] Stop: 07/27/20 20:59 Last Admin: 06/29/20 08:58 Dose: 750 mg Documented by: [id number] Admin: 06/28/20 22:11 Dose: 750 mg Documented by: [id number] Admin: 06/28/20 08:12 Dose: 750 mg Documented by: [id number] Admin: 06/27/20 22:22 Dose: 750 mg Documented by: [id number] Metoprolol Succinate (Metoprolol Succ 50mg Ext Rel Tab) 50 mg PO QAM [facility] Stop: 07/28/20 08:59 Last Admin: 06/29/20 08:55 Dose: 50 mg Documented by: [id number] Admin: 06/28/20 08:11 Dose: 50 mg Documented by: [id number] Mirabegron (Mirabegron Er 25 Mg Tab) 50 mg PO HS [facility] Stop: 07/27/20 20:59 Last Admin: 06/28/20 22:10 Dose: 50 mg Documented by: [id number] Admin: 06/27/20 22:23 Dose: 50 mg Documented by: [id number] Multivitamins (Multivitamin Tab) 1 tab PO QAM [facility] Stop: 07/28/20 08:59 Last Admin: 06/29/20 08:58 Dose: 1 tab Documented by: [id number] Admin: 06/28/20 08:12 Dose: 1 tab Documented by: [id number] Multivitamins/Minerals (Calcium 600mg + Vit D 400 Iu Tab) 1 tab PO QPM [facility] Stop: 07/27/20 20:59 Last Admin: 06/28/20 22:10 Dose: 1 tab Documented by: [id number] Admin: 06/27/20 22:21 Dose: Not Given Documented by: [id number] Oxybutynin Chloride (Oxybutynin Chloride Xl 5 Mg Tabcr) 10 mg PO QAM [facility] Stop: 07/28/20 08:59 Last Admin: 06/29/20 08:56 Dose: 10 mg Documented by: [id number] Admin: 06/28/20 08:10 Dose: 10 mg Documented by: [id number] Potassium Chloride (Potassium Chloride 20 Meq Tabcr) 20 meq PO QAM [facility] Stop: 07/28/20 08:59 Last Admin: 06/29/20 08:55 Dose: 20 meq Documented by: [id number] Admin: 06/28/20 08:12 Dose: 20 meq Documented by: [id number] Psyllium Hydrophilic Mucilloid (Psyllium 58.6% Powder Packet) 1 pkt PO QAM [facility] Stop: 07/28/20 08:59 Last Admin: 06/29/20 08:57 Dose: 1 pkt Documented by: [id number] Admin: 06/28/20 08:13 Dose: 1 pkt Documented by: [id number] Quetiapine Fumarate (Quetiapine Fumarate 25 Mg Tablet) 50 mg PO [facility] Stop: 07/27/20 20:59 Last Admin: 06/28/20 22:11 Dose: 50 mg Documented by: [id number] Admin: 06/27/20 22:23 Dose: 50 mg Documented by: [id number] Raspberry (Raspberry Syrup 5 Ml Udp) 5 ml PO MoFr@0900 [facility] Stop: 07/27/20 08:59 Last Admin: 06/28/20 08:10 Dose: 5 ml Documented by: [id number] Topiramate (Topiramate 100 Mg Tab) 100 mg PO BID [facility] Stop: 07/27/20 20:59 Last Admin: 06/29/20 08:56 Dose: 100 mg Documented by: [id number] Admin: 06/28/20 22:11 Dose: 100 mg Documented by: [id number] Admin: 06/28/20 08:12 Dose: 100 mg Documented by: [id number] Admin: 06/27/20 22:24 Dose: 100 mg Documented by: [id number] Vancomycin HCl (Vancomycin Hcl 125 Mg/2.5ml Soln) 125 mg PO MoFr@0900 [facility] Stop: 07/28/20 08:59 Last Admin: 06/28/20 08:57 Dose: 125 mg Documented by: [id number] Vitamin B Complex (Vitamin B Complex Tab) 1 tab PO QAM [facility] Stop: 07/28/20 08:59 Last Admin: 06/29/20 08:54 Dose: 1 tab Documented by: [id number] Admin: 06/28/20 08:10 Dose: 1 tab Documented by: [id number] Vitamin E (Tocopheryl, Dl-Alpha 400 Units Cap) 400 units PO QAM [facility] Stop: 07/28/20 08:59 Last Admin: 06/29/20 08:56 Dose: 400 units Documented by: [id number] Admin: 06/28/20 08:10 Dose: 400 units Documented by: [id number] Coding Level of Care Code 81221 U Intl Hosp Care Lvl 3
--- NOTE | 2020-06-29 13:28 | Discharge Summary ---
Date of Service June 29, 2020 Admission HPI Per Admitting Provider Rupali Duron is a 65 year old female who has a very complex medical history including prior CVA, recurrent cellulitis, c. diff, PEs, celiacs disease, history of small cell lung cancer, marginal zone lymphoma who presents to the ER an abnormal episode consisting of left arm stiffness, presyncope, chest and back pain. She was seen with her son who provided a collateral history. For the past few months she has been feeling generally unwell with palpitations and auditory hallucinations undergoing workup by her PCP. Recent investigations are concerning for FDG avid spiculated right lower lobe lung which she is awaiting biopsy for. Today she suddenly called out to her son around 1:30pm. She was feeling her heart rate slowing to the point she was concerned it might stop. When he arrived she was pointing to her left arm complaining she couldn't move it as it was completely stiff. Occurred while lying down on the cough. While bringing her mother to the ER her eyes were rolling upwards and her son was unsure whether she was losing consciousness or falling asleep. He was able to arouse her at which point she noted chest pain radiating through to her back between her shoulder blades with a feeling that she had a hole in her back. No headache, neck pain, shortness of breath, change in bowels, dysuria. Residual deficits from prior CVA are a; right sided mainly sensory with inability to tell difference between hot and cold. Never had any problems on left side. On admission she reports feeling "not too bad". Feels like she needs to go to the bathroom. Principal Diagnosis Anxiety, cannot r/o Seizure Activity Discharge Exam Constitutional + cachectic, cooperative and comfortable chronically ill appearing Eyes + anicteric sclerae and PERRL ENMT Ears: no hearing impairment Neck trachea midline, no thyromegaly Respiratory normal respiratory effort, lungs clear to auscultation Cardiovascular Rate/Rhythm: regular rate and regular rhythm Extremities: + edema (trace b/l) Gastrointestinal (Abdomen) Inspection/Auscultation: + abdomen distended and normal bowel sounds Percussion/Palpation: abdomen soft; abdomen nontender, no guarding and abdomen not rigid Musculoskeletal no cyanosis or clubbing, extremities motor strength 5/5 Neurologic PERRL, EOMI, accommodation nl, no face palsy, no dysarthria Psychiatric Orientation: alert and oriented x 3 Affect: + anxious affect Lymphatic no cervical or axillary lymphadenopathy Discharge Data Allergies Allergy/AdvReac Type Severity Reaction Status Date / Time Iodinated Contrast Media Allergy Intermediate Hives Verified 07/02/20 14:57 iodine Allergy Intermediate HIVES Verified 07/02/20 14:57 levofloxacin Allergy Intermediate numbness/we Verified 07/02/20 14:57 akness pregabalin Allergy Intermediate fever?/?cher Verified 07/02/20 14:57 h strawberry Allergy Intermediate HIVES Verified 07/02/20 14:57 Sulfa (Sulfonamide Allergy Intermediate RASH/HIVES Verified 07/02/20 14:57 Antibiotics) allopurinol Allergy Mild rash Verified 07/02/20 14:57 venlafaxine Allergy Unknown UNKNOWN Verified 07/02/20 14:57 gluten AdvReac Severe Celiac Dz Verified 07/02/20 14:57 = GI symptoms adhesive AdvReac Intermediate red torn Verified 07/02/20 14:57 skin propoxyphene AdvReac Intermediate FRONT W[employer] side Verified 07/02/20 14:57 effects bee stings Allergy Severe Difficulty Uncoded 07/02/20 14:57 Breathing Consultations 06/27/20 16:57 ED Decision to Admit Stat 06/28/20 02:52 Consult Neurology Routine 06/28/20 03:25 Consult Cardiology Routine 06/28/20 14:52 Consult Psychiatry Routine Ordered Studies 06/27/20 15:22 CT head/brain wo con Stat CXR Hospital Course (1) Muscle spasticity: * Sudden onset left arm 06/27. History CVA 1996 with some R sided numbness along with hx multiple smaller strokes. 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 * Neurology consulted. Follows with Dr. Pagan for years. * -- Recent MRI without evidence of acute CVA or brain mass. Recommended increasing topimax to 200mg QAM, 100mg QHS and possible uptitration to 200/200 after outpatient follow-up with Dr. Pagan. Patient also with PET scan with new RLL nodule with previous hx small cell lung ca 7-8 years ago * Psych consulted -- ??neuropsych related to recent knowledge of suspected lung ca --> of note, patient with auditory hallucinations and had recently been restarted on her Seroquel and increased to 50mg daily as she had previously weaned herself off. Agreed to continue current dosing. (2) Depression: * and anxiety, with auditory hallucinations/possible psychosis. Continue clonazepam * MRI negative for brain mets * Psych consulted (3) Urinary frequency: * Chronic, with cystocele. On Keflex/Doxy outpatient for recurrent cellulitis as well as mybetriq and oxybutynin * UA 2+ protein, 3+ blood, 3+ leuk esterase, >30 RBC, 10-20 epi * Culture with pinpoint growth, re-incubated and showed yeast not julia albicans/dub. * Given patient with chronic bilateral stent, exchanged Q5 months and most recently exchanged 04/01/[address] Marroquin --> I spoke with urology information management specialist regarding findings and they recommended outpatient follow-up. Discussed with patient. (4) Back pain: * Stable (5) Urge and stress incontinence: * as above (6) Bilateral hydronephrosis: * Noted. Chronic bilateral indwelling stents exchanged every 5 months. Last performed March 2020. (7) Celiac disease: * IgA-TTG sent out to assess for compliance to gluten-free diet given multiple recent neuropsychiatric problems which can be associated with celiacs. Patient had episode reported following [employer] pizza (although gluten free was prepared in an area with a lot of gluten). * Resulted at 2--> <4 no antibody detected * Gluten free diet while inpatient (8) Cirrhosis: * Due to hepatitis C treated with sofosbuvir/simeprevir in 2013. Viral load undetectable October 2014. 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 BP chronically on lower side. Cardiology consulted as above (12) Solitary lung nodule: * Hx small cell lung ca. * Seen on PET scan, 2.2cm RLL nodule, ordered by Dr. Piedra. * Scheduled outpatient follow up with Pulm on Sunday of this week and will likely need needle biopsy and f/u with Oncology pending results. She follows with Dr. Bloom (13) Chronic kidney disease, stage III (moderate): * At baseline. (14) Clostridium difficile colitis: * History of such on chronic antibiotics. Continued her chronic suppressive therapy with oral vancomycin twice a week, sunday/sunday (15) Recurrent cellulitis: * On chronic suppression with Keflex and doxycycline. Continued * No s/sx cellulitis during hospitalization (16) Primary hypercoagulable state: * Factor II mutation, on daily lovenox. Continued. (17) Migraine: * Continued topamax, but increased as above with possible further titration at follow up with Dr. Pagan (18) Squamous cell carcinoma of lung: * Hx Right upper lobe - external beam radiation * New nodule on PET as above * Follows with Dr. 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 (20) COPD (chronic obstructive pulmonary disease): * On 2L chronically at home * Continued home medications * No hypoxia noted during hospitalization (21) DVT prophylaxis: * Lovenox as above Total Time Total Time Spent Total Time Spent (In Minutes): 60 Discharge Plan Discharge Items Patient Disposition: Home - Self-Care Reason For Visit: CHEST PAIN RULE OUT RI Discharge Diagnosis: Anxiety, Depression, Muscle Spasticity Goals: You have been hospitalized for an acute medical problem. During your stay at [facility], we have made an effort to correct the problem that brought you to the hospital while keeping you as comfortable as possible. Medications were used to bring your condition under control and your discharge instructions will include directions for any medications you should take after leaving the hospital. Please make sure you see your Primary Care Provider as part of your follow up plan. Activity: Resume your previous activity Non-emergency contact: Primary Care Provider and Neurologist Call non-emergency contact if: you have any medication questions and your symptoms worsen Follow-up/Referrals: Rashid Villegas MD [Primary Care Provider] - 07/02/20 10:30 am () Efrem Pagan MD [Physician] - 07/22/20 11:00 am () Rashid Marroquin MD [Physician] - (1 week ) Rodri Piedra DO [Physician] - 07/01/20 10:00 am (APPOINTMENT WILL BE WITH DR STEINBERG) Diet: Heart Healthy Addtl Attending Provider Instructions: You have been hospitalized for chest pain, muscle spasticity and back pain as well as feeling like your heart was going to stop. You were monitored on telemetry which showed a normal rhythm. Cardiology was consulted and they do not recommend further work-up for ischemia (damage to your heart) given negative lab values, normal on heart monitor, and EKG without significant abnormalities. You had previously had a Holter monitor with cardiology and if you continue to notice symptoms again, you may want to discuss a 30 day event monitor for further evaluation. You were evaluated by Neurology and it is felt this is not related to a stroke, but has increased your Topamax to 200mg daily in the morning and 100mg daily at night. Recent MRI did not show any metastatic disease or mass and repeat was not recommended at this time. A CT scan was done of your head and did not show any acute changes. Dr. Pagan may decide to increase this dose further once seen in follow up. Prescriptions have been sent for this medication. You were also evaluated by psychiatry during this admission. They will be attempting to arrange closer follow up with [facility] and will be in touch r egarding appointment. Discussion was had with our pulmonary team and it is recommended that you have follow up with Dr. Piedra as soon as possible for biopsy given increased concern for malignancy on your recent PET scan. An appointment has been made for this upcoming . Your urine was collected and shows yeast but not julia albicans which typically is treated with anti-fungal. It appears as though you have had multiple urine cultures positive for this in the past with negative testing in between. Discussion was had with Urology and you should follow up with them as an outpatient for possible exchange sooner than typically scheduled if they feel this is warranted. Please follow up with them to prevent any further complications. Please return to the emergency department with worsening chest pain, shortness of breath, or for any other symptoms that are concerning for you. It has been a pleasure being a part of the medical team providing for you while you have been in the hospital. Take care! Pending Studies at Discharge: Yes Studies:: Tissue IgA Stand-Alone Forms: My [employer] Medications and DC Order Prescriptions: New topiramate 100 mg tablet See Rx Instructions .ROUTE .COMPLEX Qty: 90 RF: 0 Continued calcium carbonate-vitamin D3 [Caltrate with Vitamin D3] 600 mg(1,500mg) -800 unit tablet 1 tab PO QPM RF: 0 Symbicort 160-4.5 mcg/actuation HFA aerosol inhaler 2 puff INHALATION BID Qty: 10.2 RF: 11 vancomycin 125 mg capsule 125 mg PO 2XWK Qty: 30 RF: 5 oxybutynin chloride 10 mg tablet extended release 24hr 10 mg PO QAM Qty: 90 RF: 1 methocarbamol 750 mg tablet See Rx Instructions .ROUTE .COMPLEX Qty: 60 RF: 5 ergocalciferol (vitamin D2) 1,250 mcg (50,000 unit) capsule 50,000 units PO WEEKLY Qty: 12 RF: 1 lidocaine 5 % cream 1 appln TOP TID PRN (Reason: pain) Qty: 30 RF: 2 clonazepam [Klonopin] 1 mg tablet 1 mg PO HS Qty: 30 RF: 2 metoprolol succinate 50 mg tablet extended release 24 hr 50 mg PO QAM Qty: 30 RF: 5 potassium chloride 20 mEq tablet extended release 20 meq PO QAM Qty: 30 RF: 5 quetiapine 50 mg tablet 50 mg PO ONCE HS 30 Days Qty: 30 RF: 3 enoxaparin [Lovenox] 40 mg/0.4 mL syringe See Rx Instructions SQ QAM 30 Days Qty: 30 RF: 6 acyclovir 400 mg tablet 400 mg PO BID Qty: 60 RF: 2 albuterol sulfate [ProAir HFA] 90 mcg/actuation HFA aerosol inhaler 2 puff INHALATION QID PRN (Reason: Wheezing) Qty: 8.5 RF: 5 rizatriptan 10 mg tablet,disintegrating See Rx Instructions PO .COMPLEX Qty: 9 RF: 5 Myrbetriq 50 mg tablet extended release 24 hr 50 mg PO HS Qty: 90 RF: 3 gabapentin 400 mg capsule 400 mg PO DAILY RF: 0 cephalexin [Keflex] 500 mg capsule 500 mg PO QAM Qty: 30 RF: 6 cyanocobalamin (vitamin B-12) 1,000 mcg/mL Solution 1,000 mcg IM MONTHLY RF: 0 ferrous sulfate [iron] 325 mg (65 mg iron) Tablet 325 mg PO QAM RF: 0 vitamin E 400 unit Capsule 400 unit PO QAM RF: 0 psyllium husk [Metamucil] 0.52 gram Capsule 0.52 g PO QAM RF: 0 multivitamin Tablet 1 tab PO QAM RF: 0 butorphanol tartrate 10 mg/mL [place],Non-Aerosol 1 spray INTRANASAL Q3H PRN (Reason: Migraine Headache) RF: 0 cetirizine [Zyrtec] 10 mg Tablet 10 mg PO QAM RF: 0 triamcinolone acetonide 0.025 % Cream 1 applic TOPICAL BID PRN (Reason: Skin Irritation) RF: 0 vitamin B complex [B-Complex] Tablet 1 tab PO QAM RF: 0 folic acid 1 mg Tablet 1 mg PO QAM RF: 0 coenzyme Q10 [CoQ-10] 100 mg Capsule 200 mg PO QAM RF: 0 Prolia 60 mg/mL Syringe 60 mg subcut Q6M RF: 0 [id number] 460 mg (7.5-6- 1.5 bill. cell) Capsule 1 cap PO QAM RF: 0 magnesium oxide 400 mg Capsule 400 mg PO QAM RF: 0 Medical Marijuana 1 dose PO DIRECTED PRN (Reason: NEEDED) RF: 0 doxycycline hyclate 100 mg capsule 100 mg PO QAM RF: 0 lvudjmqdwf-chrjddknszfuf-ldfq 50-325-40 mg tablet See Rx Instructions .ROUTE .COMPLEX PRN (Reason: HEADACHES) RF: 0 Discontinued topiramate 100 mg tablet 100 mg PO BID Qty: 60 RF: 5 Discharge Orders: Discharge Order (Routine); Ordered 06/29/20 Ordered By: Flory Mirza Admission Data Admit Date/Time: 06/27/20 18:29 Attending Provider: William Hussein Admit Provider: Leeroy Brown Primary Care Provider: Rashid Villegas Other Providers: Leeroy Brown ; Efrem Pagan ; Jose Self ; Lulu Dumont Other Interventions: Discharge Summary Assessment (RN) Last Done: 06/29/20 16:27 Coding Level of Care Code 83543 OBS Care - Discharge Diagnoses Muscle spasticity M62.838 Depression F32.9 Urinary frequency R35.0 Back pain M54.9 Urge and stress incontinence N39.46 Bilateral hydronephrosis N13.30 Celiac disease K90.0 Cirrhosis K74.60 B12 deficiency E53.8 Recurrent deep venous thrombosis I82.409 Hypertension I10 Solitary lung nodule R91.1 Chronic kidney disease, stage III (moderate) N18.3 Clostridium difficile colitis A04.72 Recurrent cellulitis L03.90 Primary hypercoagulable state D68.59 Migraine G43.909 Squamous cell carcinoma of lung C34.90 Marginal zone B-cell lymphoma C85.80 COPD (chronic obstructive pulmonary disease) J44.9 DVT prophylaxis Z29.9
== END 2020-06-29 18:36 | disposition home or self-care (01) ==
LOC: ED 14:26 → 2N 14:26 → SUATTDRO 18:29 → 2N 20:31
DX: R00.2 Palpitations; D68.2 Hereditary deficiency of other clotting factors; K90.0 Celiac disease; Z88.1 Allergy status to other antibiotic agents; K74.60 Unspecified cirrhosis of liver; Z86.718 Personal history of other venous thrombosis and embolism; N18.3 Chronic kidney disease, stage 3 (moderate); Z91.041 Radiographic dye allergy status; G43.909 Migraine, unspecified, not intractable, without status migrainosus; D69.6 Thrombocytopenia, unspecified; Z86.73 Personal history of transient ischemic attack (TIA), and cerebral infarction without residual deficits; Z85.72 Personal history of non-Hodgkin lymphomas; M81.0 Age-related osteoporosis without current pathological fracture; J44.9 Chronic obstructive pulmonary disease, unspecified; Z79.899 Other long term (current) drug therapy; I42.9 Cardiomyopathy, unspecified; I87.8 Other specified disorders of veins; Z86.19 Personal history of other infectious and parasitic diseases; R42 Dizziness and giddiness; Z87.891 Personal history of nicotine dependence; Z91.030 Bee allergy status; J43.9 Emphysema, unspecified; Z88.2 Allergy status to sulfonamides; R07.9 Chest pain, unspecified; Z88.8 Allergy status to other drugs, medicaments and biological substances; Z79.01 Long term (current) use of anticoagulants; F32.9 Major depressive disorder, single episode, unspecified; L40.9 Psoriasis, unspecified; M62.838 Other muscle spasm; R35.0 Frequency of micturition

== ENCOUNTER 2020-08-09 16:28 | Inpatient (IN) ==
[2020-08-09] MEDS ORDERED: PIPERACILLIN/TAZOBACTAM 4.5 GM/120 ML BAG IV ONE (17:06)
[2020-08-09] MEDS ORDERED: CLINDAMYCIN 900 MG in DEXTROSE 5% 50 ML IV ONE (17:06)
[2020-08-09] MEDS ORDERED: DAPTOmycin 350 MG in SYRINGE 0 ML IV ONE (17:06)
[2020-08-09] MEDS ORDERED: SODIUM CHLORIDE 0.9% 1000ML 1,000 ML IV SCH (17:15)
--- NOTE | 2020-08-09 17:19 | Emergency Department Note ---
History of Present Illness General Chief complaint: Wound Recheck Stated complaint: INFECTED LAC Time Seen by Provider: 08/09/20 16:49 Source: patient Mode of arrival: ambulatory Limitations: no limitations History of Present Illness Provider Complaint: + discoloration and + other (left leg infection) Onset (ago): 3 hour(s) Tetanus up to date: yes Location: + LLE Severity: severe Maximum Pain Intensity: 7 Current Pain Intensity: 7 Quality: + burning, + aching and + constant Pain Consistency: + constant Relieved By: + immobilization Exacerbated By: + palpation and + movement Context: + other (recent laceration with repair and infection) Associated symptoms: + fever, + chills and + malaise Treatments prior to arrival: + none HPI narrative: This 65-year-old female patient presents to the emergency department today for evaluation of "I have an angry-looking leg". The patient reports 3 weeks ago, she had a laceration on her left proximal navarro after kicking a cooler. She had 19 stitches placed and states these were removed last week. She was seen by the primary care provider last week for suture removal and they noted a small amount of redness and pain surrounding the laceration. The patient is chronically on doxycycline and Keflex for lower extremity cellulitis prophylaxis, and states her dose was increased to a therapeutic dose due to the infection. She reports the redness and swelling and pain resolved and she was doing well for the past week. The patient states today she went to an ophthalmology appointment when she had a temperature of 99 F. When she got home at about 4 PM, she noticed that her left lower extremity was red and she was experiencing chills. She noticed rapidly progressing redness proximally since 4 PM. When she got home, she did also note a fever of 102.2. The patient states her leg was normal yesterday and even upon awakening this morning. She denies any chest pain, dyspnea, nausea, vomiting, numbness, tingling, or weakness. She has not been wearing her compression stocking of the left lower extremity due to the infection. She denies any other associated symptoms. Home Medications Home Medications Medication Instructions Recorded Confirmed Type Florajen3 1 cap PO QAM 07/16/18 08/09/20 History Prolia 60 mg SUBCUT Q6M 07/16/18 08/09/20 History butorphanol 1 spray INTRANASAL Q3H PRN 07/16/18 08/09/20 History cetirizine [Zyrtec] 10 mg PO QAM 07/16/18 08/09/20 History coenzyme Q10 [CoQ-10] 200 mg PO QAM 07/16/18 08/09/20 History folic acid 1 mg PO QAM 07/16/18 08/09/20 History magnesium oxide 400 mg PO QAM 07/16/18 08/09/20 History multivitamin 1 tab PO QAM 07/16/18 08/09/20 History triamcinolone acetonide 1 applic TOPICAL BID PRN 07/16/18 08/09/20 History vitamin B complex [B-Complex] 1 tab PO QAM 07/16/18 08/09/20 History calcium carbonate-vitamin D3 600 1 tab PO QPM 11/26/18 08/09/20 History mg (1,500 mg)-800 unit tablet cyanocobalamin (vitamin B-12) 1,000 mcg IM MONTHLY 02/10/19 08/09/20 History ferrous sulfate [iron] 325 mg PO QAM 02/10/19 08/09/20 History psyllium husk [Metamucil] 0.52 g PO QAM 08/28/19 08/09/20 History vitamin E 400 unit PO QAM 08/28/19 08/09/20 History budesonide-formoterol HFA 160 2 puff INHALATION BID #10.2 gm 09/15/19 08/09/20 Rx mcg-4.5 mcg/actuation aerosol inhaler albuterol sulfate 90 mcg/actuation 2 puff INHALATION QID PRN #8.5 gm 11/12/19 08/09/20 Rx aerosol inhaler ergocalciferol (vitamin D2) 1,250 50,000 units PO WEEKLY #12 cap 04/13/20 08/09/20 Rx mcg (50,000 unit) capsule gabapentin 400 mg capsule 400 mg PO QAM cap 04/26/20 08/09/20 History clonazepam 1 mg tablet 1 mg PO HS #30 tab 06/09/20 08/09/20 Rx metoprolol succinate 50 mg 50 mg PO QAM #30 tab 06/09/20 08/09/20 Rx tablet,extended release 24 hr potassium chloride 20 mEq 20 meq PO QAM #30 tab 06/09/20 08/09/20 Rx tablet,extended release enoxaparin 40 mg/0.4 mL See Rx Instructions SQ QAM 30 Days 06/10/20 08/09/20 Rx subcutaneous syringe #30 syr Medical Marijuana 1 dose PO BID 06/27/20 08/09/20 History [id number]-[id number] See Rx Instructions .ROUTE 06/27/20 08/09/20 History [Esgic] .COMPLEX PRN acyclovir 400 mg tablet 400 mg PO BID #60 tab 06/29/20 08/09/20 Rx methocarbamol [Robaxin-750] 750 mg PO BID 07/09/20 08/09/20 History quetiapine [Seroquel] 50 mg PO HS 07/09/20 08/09/20 History mirabegron 50 mg tablet,extended 50 mg PO HS #90 tab 07/13/20 08/09/20 Rx release 24 hr oxybutynin chloride 10 mg 10 mg PO QAM #90 tab 07/13/20 08/09/20 Rx tablet,extended release 24 hr mupirocin 2 % topical ointment 1 applic TOPICAL BID 14 Days #15 g 08/02/20 08/09/20 Rx cephalexin 500 mg capsule 500 mg PO BID cap 08/05/20 08/09/20 History doxycycline hyclate 100 mg capsule 100 mg PO BID cap 08/05/20 08/09/20 History vancomycin 125 mg capsule 125 mg PO 2XWK cap 08/05/20 08/09/20 History rizatriptan 10 mg disintegrating 10 mg PO .COMPLEX #9 tab 08/06/20 08/09/20 Rx tablet topiramate 100 mg tablet 100 mg PO .COMPLEX #90 tab 08/06/20 08/09/20 Rx Allergies Allergy/AdvReac Type Severity Reaction Status Date / Time Iodinated Contrast Media Allergy Intermediate Hives Verified 08/09/20 17:43 iodine Allergy Intermediate HIVES Verified 08/09/20 17:43 levofloxacin Allergy Intermediate numbness/we Verified 08/09/20 17:43 akness pregabalin Allergy Intermediate fever?/?cher Verified 08/09/20 17:43 h strawberry Allergy Intermediate HIVES Verified 08/09/20 17:43 Sulfa (Sulfonamide Allergy Intermediate RASH/HIVES Verified 08/09/20 17:43 Antibiotics) allopurinol Allergy Mild rash Verified 08/09/20 17:43 venlafaxine Allergy Unknown UNKNOWN Verified 08/09/20 17:43 gluten AdvReac Severe Celiac Dz Verified 08/09/20 17:43 = GI symptoms adhesive AdvReac Intermediate red torn Verified 08/09/20 17:43 skin propoxyphene AdvReac Intermediate LEAN SIX SIGMA BLACK BELT side Verified 08/09/20 17:43 effects bee stings Allergy Severe Difficulty Uncoded 08/09/20 17:43 Breathing Past Med/Surg History Medical History Abnormal PET of right lung Acute UTI Anemia Asthma Celiac disease History of Hep C 2013 Cellulitis RECURRENT B/L LE - ON PROPHYLACTIC ABX (FOLLOWS W/ DR. BAUM). CURRENTLY NOT ACTIVE. BUT IF STOPS ABX FLARES UP Chest pain Chronic back pain Chronic hypoxemic respiratory failure Chronic kidney disease STAGE III Chronic obstructive pulmonary disease EMPHYSEMA ON O2 2L CONTINUOUS Chronic venous stasis WITH DERMATITIS AND RECURRENT CELLULITIS Cirrhosis COPD (chronic obstructive pulmonary disease) Heart palpitations Hx MRSA infection Hx of cancer of lung 2012> TREATED with radiation Hx of Clostridium difficile infection Hx of deep venous thrombosis Hx of hepatitis C 2003 - TREATED Hx of non-Hodgkin's lymphoma Hydronephrosis B/L CHRONIC HYDRONEPHROSIS REQUIRING ROUTINE STENT EXCHANGES Insomnia Lung cancer Lung nodule Malignant neoplasm of lower lobe, right bronchus or lung Medical marijuana use Migraine Mood disorder Near syncope On home oxygen therapy 2L continuous Osteoporosis Poor historian Primary hypercoagulable state 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 follows Dr. Pagan Thrombocytopenia CHRONIC Urge and stress incontinence Venous stasis Surgical History H/O bursectomy RIGHT KNEE History of bone marrow biopsy History of bronchoscopy History of carpal tunnel release LEFT History of cystoscopy most recent 10/27/2019 [place] Cystoscopy, Bilateral Retrograde, Bilateral Stent Exchange, Injection of Urethral Bulking Agent History of esophagogastroduodenoscopy (EGD) History of liver biopsy History of ureter stent MULTIPLE Hx of bladder repair surgery FOR PROLAPSE Hx of colonoscopy Hx of tonsillectomy Hx of tubal ligation Family History Unknown Heart disease Hypertension Mother Psoriasis Diabetes Social History Smoking Status: Former smoker Cigarettes Per Day: stopped february 2011; Second Hand Exposure: No; Hx Alcohol Use: No Hx Substance Use: Yes Last Used Substance: Hours (ago) Last Used Substance Other:: this am Substance Use Type Other:: medical marijuana Preferred Language: Lebanese Communication Ability: Effective Visual Impairment: No Limitations Evaluator Transfer Students Required: No Beliefs That Will Affect Care: None Current Living Situation: Family Current Living Situation Comment: son and sons girlfriend live with pt Feels Safe at Home: Yes Assistive Devices: Oxygen - Continuous Review of Systems A total of 10 systems reviewed and were otherwise negative Physical Exam Vital Signs: Vital Signs - 24 hr 08/09/20 16:41 08/09/20 17:07 08/09/20 19:26 Temperature 39.4 C H Temperature Source Oral Pulse Rate 103 H 78 Pulse Rate [Left F jose] Pulse Rate from Sp O2 Sensor 76 Respiratory Rate 24 15 Respiratory Effort / Characteristics Blood Pressure 88/38 L Blood Pressure [Ri ght Arm] Blood Pressure [place] n 48 Blood Pressure [place] n [Right Arm] Blood Pressure Pos ition [Right Arm] Pulse Oximetry 100 99 Oxygen Delivery Me thod Nasal Cannula Room Air Nasal Cannula Oxygen Flow Rate 2 2 Sepsis Recent Feve r Within 48 Hours Yes Sepsis New/Unexpla ined Change in Men rambo Status No Sepsis Action Take n by Nursing No Action Required 08/09/20 19:33 08/09/20 20:00 08/09/20 20:13 Temperature Temperature Source Pulse Rate Pulse Rate [Left F jose] 80 Pulse Rate from Sp O2 Sensor 75 75 Respiratory Rate 16 19 16 Respiratory Effort / Characteristics Blood Pressure 80/44 L Blood Pressure [Ri ght Arm] 88/38 L Blood Pressure [place] n 54 Blood Pressure [place] n [Right Arm] 54 Blood Pressure Pos ition [Right Arm] Sitting Pulse Oximetry 99 100 100 Oxygen Delivery Me thod Room Air Nasal Cannula Nasal Cannula Oxygen Flow Rate 2 2 Sepsis Recent Feve r Within 48 Hours Sepsis New/Unexpla ined Change in Men rambo Status Sepsis Action Take n by Nursing 08/09/20 20:19 08/09/20 20:25 Temperature Temperature Source Pulse Rate Pulse Rate [Left F jose] Pulse Rate from Sp O2 Sensor 71 Respiratory Rate 19 Respiratory Effort / Characteristics Non-Labored Sponta neous Blood Pressure 81/42 L Blood Pressure [Ri ght Arm] Blood Pressure [place] n 48 Blood Pressure [place] n [Right Arm] Blood Pressure Pos ition [Right Arm] Pulse Oximetry 100 99 Oxygen Delivery Me thod Nasal Cannula Nasal Cannula Oxygen Flow Rate 2 2 Sepsis Recent Feve r Within 48 Hours Sepsis New/Unexpla ined Change in Men rambo Status Sepsis Action Take n by Nursing Physical Exam: VITALS: Vitals are noted on the nurse's note and reviewed by myself. Patient is tachycardic and febrile. Patient is hypotensive, however blood pressure not immediately obtained by nursing staff. GENERAL: This is a 65-year-old white female, in no acute distress, nondiaphoretic, well-developed well-nourished. SKIN: Erythema, edema, and significant tenderness extending from the medial aspect of the mid thigh to the entire left lower leg, ankle, and heel. No palpable cord. The skin was otherwise without rashes, erythema, edema, or bruis ing. There is no tenting of the skin. Capillary refill less than 2 seconds. HEAD: Normocephalic atraumatic. EYES: Conjunctivae without injection, sclerae without icterus. NECK: Supple without nuchal rigidity. No lymphadenopathy. No thyromegaly. Cervical spine is nontender. No JVD. HEART: Regular rate and rhythm without murmurs gallops or rubs. LUNGS: Clear to auscultation bilaterally without wheezes, rales or rhonchi. No retractions or accessory muscle use. MUSCULOSKELETAL: No muscle atrophy, erythema, or edema except as noted. Full range of motion without joint tenderness in all extremities except the left lower extremity which is mildly limited at the knee and ankle due to pain. No tenderness to palpation except the left lower extremity as previously noted. Limping gait. Strength 5/5 throughout. NEURO: Patient was alert and oriented to person place and time. No focal neur ological deficits. Course Course The patient was seen and evaluated as above. An order was placed for continuous cardiac monitoring. The monitor shows a sinus tachycardia at a rate of 103 bpm. I discussed the case with the ED pharmacist. IV access obtained, labs drawn. Patient medicated with IV fluids, acetaminophen, Zofran, morphine, Zosyn, daptomycin, clindamycin. I discussed the case with my attending physician who did see and evaluate the patient. Imaging performed and reviewed by myself and radiologist as noted. Labs reviewed by myself. I discussed the findings with the patient at bedside. I did discuss recomm endation for admission. The patient was agreeable. I discussed the case with the corporate affairs manager. [facility] She did agree to see and evaluate the patient for ongoing management. Administered Medications Sodium Chloride (Nss 1000ml) 1,000 mls @ 999 mls/hr IV .Q1H1M ONE Stop: 08/09/20 21:18 Last Admin: 08/09/20 20:21 Dose: 999 mls/hr Documented by: [id number] Discontinued Medications Sodium Chloride (Nss 1000ml) 1,000 mls @ 999 mls/hr IV .Q1H1M BIRDIE Stop: 08/09/20 18:15 Last Infusion: 08/09/20 19:19 Dose: 0 mls/hr Documented by: [id number] Admin: 08/09/20 17:52 Dose: 999 mls/hr Documented by: [id number] Daptomycin 350 mg/ Syringe 7 mls @ 3.5 mls/min IV NOW ONE; Protocol Stop: 08/09/20 17:07 Last Admin: 08/09/20 18:09 Dose: 3.5 mls/min Documented by: [id number] Piperacillin Sod/Tazobactam Sod (Zosyn) 4.5 gm in 120 mls @ 240 mls/hr IV NOW ONE Stop: 08/09/20 17:35 Last Infusion: 08/09/20 18:39 Dose: 0 mls/hr Documented by: [id number] Admin: 08/09/20 18:09 Dose: 240 mls/hr Documented by: [id number] Clindamycin Phosphate 900 mg/ (Dextrose) 56 mls @ 112 mls/hr IV ONE ONE Stop: 08/09/20 17:35 Last Infusion: 08/09/20 18:59 Dose: 0 mls/hr Documented by: [id number] Admin: 08/09/20 18:09 Dose: 112 mls/hr Documented by: [id number] Acetaminophen (Ofirmev) 1,000 mg in 100 mls @ 400 mls/hr IV NOW STA Stop: 08/09/20 17:38 Last Infusion: 08/09/20 18:25 Dose: 0 mls/hr Documented by: [id number] Admin: 08/09/20 17:52 Dose: 400 mls/hr Documented by: [id number] Morphine Sulfate (Morphine Sulfate 4 Mg/Ml 1 Ml Carp\\Vial) 4 mg IV NOW STA Stop: 08/09/20 17:25 Last Admin: 08/09/20 17:52 Dose: 4 mg Documented by: [id number] Ondansetron HCl (Ondansetron Inj 2 Mg/Ml 2 Ml Vial) 4 mg IV NOW STA Stop: 08/09/20 17:25 Last Admin: 08/09/20 17:52 Dose: 4 mg Documented by: [id number] Medical Decision Making Differential Diagnosis + abscess of skin or subcutaneous tissue, + urticaria, + cellulitis, + impetigo, + cellulitis, + necrotizing fasciitis and + foreign body Medical Records Attestation: I reviewed the patient's medical records. Home Medications Current Medication List: was personally reviewed by me Laboratory Data Attestation: I reviewed the patient's lab results. Leukocytosis of 12,000. Very mild anemia with a hemoglobin of 11.9. Platelet count 99,000. Coags normal. Creatinine elevated at 1.51. This is elevated from baseline. Otherwise, hepatic function without significant abnormality. Electrolytes without significant abnormality. Lactic acid 1.9. Result diagrams: 08/09/20 17:44 08/09/20 17:44 Lab Results 08/09/20 08/09/20 08/09/20 Range/Units 17:44 17:44 17:44 WBC 12.46 H (4.8-10.8) K/uL RBC 3.66 L (4.2-5.4) M/uL Hgb 11.9 L (12.0-16.0) g/dL POC Hgb (12.0-16.0) g/dl Hct 37.0 (37-47) % POC Hct (37-47) % MCV 101.1 H (80-100) fL MCH 32.5 (25-34) pg MCHC 32.2 (32-36) g/dL RDW Std Deviation 51.0 H (36.4-46.3) fL RDW Coeff of Irasema 13.9 (11.5-14.5) % Plt Count 99 L (130-400) K/uL MPV 10.4 (7.4-10.4) fL Immature Gran % (Auto) 0.3 % Neut % (Auto) 79.3 % Lymph % (Auto) 11.4 % [place] % (Auto) 8.7 % Eos % (Auto) 0.2 % Baso % (Auto) 0.1 % Neut # (Auto) 9.89 H (1.4-6.5) K/uL Lymph # (Auto) 1.42 (1.2-3.4) K/uL [place] # (Auto) 1.08 H (0.11-0.59) K/uL Eos # (Auto) 0.02 (0-0.5) K/uL Baso # (Auto) 0.01 (0-0.2) K/uL Immature Gran # (Auto) 0.04 H (0.00-0.02) K/uL Platelet Estimate Decreased L (Normal) PT 10.9 (9.0-12.0) Seconds INR 1.0 (0.9-1.1) APTT 32.5 H (21.0-31.0) Seconds PTT Ratio 1.2 POC Sodium (135-144) mmol/L Sodium 140 (136-145) mmol/L POC Potassium (3.3-5.0) mmol/L Potassium 4.0 (3.5-5.1) mmol/L POC Chloride (101-112) mmol/L Chloride 110 H (98-107) mmol/L Carbon Dioxide 25 (21-32) mmol/L POC Total CO2 (24-31) mmol/L Anion Gap 4.0 (3-11) POC Anion Gap (16-25) mmol/L POC BUN (7-18) mg/dl BUN 22 H (7-18) mg/dl Creatinine 1.51 H (0.6-1.2) mg/dl POC Creatinine (0.6-1.3) mg/dl Est Cr Clr Drug Dosing 33.4 ml/min Est GFR ( Amer) 41.6 Est GFR (Non-Af Amer) 35.9 BUN/Creatinine Ratio 14.3 (10-20) Glucose 129 H (70-99) mg/dl POC Glucose (other) (70-99) mg/dl Lactate (0.4-2.0) mmol/L Calcium 8.4 L (8.5-10.1) mg/dl POC Ioniz Calcium Ira (1.12-1.32) mmol/l Magnesium 2.1 (1.8-2.4) mg/dl Total Bilirubin 0.5 (0.2-1) mg/dl AST 39 H (15-37) U/L ALT 79 H (12-78) U/L Alkaline Phosphatase 79 (45-117) U/L Total Protein 7.7 (6.4-8.2) gm/dl Albumin 3.8 (3.4-5.0) gm/dl Globulin 3.9 (2.5-4.0) gm/dl Albumin/Globulin Ratio 1.0 (0.9-2) 08/09/20 08/09/20 Range/Units 17:53 18:09 WBC (4.8-10.8) K/uL RBC (4.2-5.4) M/uL Hgb (12.0-16.0) g/dL POC Hgb 12.6 (12.0-16.0) g/dl Hct (37-47) % POC Hct 37 (37-47) % MCV (80-100) fL MCH (25-34) pg MCHC (32-36) g/dL RDW Std Deviation (36.4-46.3) fL RDW Coeff of Irasema (11.5-14.5) % Plt Count (130-400) K/uL MPV (7.4-10.4) fL Immature Gran % (Auto) % Neut % (Auto) % Lymph % (Auto) % [place] % (Auto) % Eos % (Auto) % Baso % (Auto) % Neut # (Auto) (1.4-6.5) K/uL Lymph # (Auto) (1.2-3.4) K/uL [place] # (Auto) (0.11-0.59) K/uL Eos # (Auto) (0-0.5) K/uL Baso # (Auto) (0-0.2) K/uL Immature Gran # (Auto) (0.00-0.02) K/uL Platelet Estimate (Normal) PT (9.0-12.0) Seconds INR (0.9-1.1) APTT (21.0-31.0) Seconds PTT Ratio POC Sodium 141 (135-144) mmol/L Sodium (136-145) mmol/L POC Potassium 4.4 (3.3-5.0) mmol/L Potassium (3.5-5.1) mmol/L POC Chloride 109 (101-112) mmol/L Chloride (98-107) mmol/L Carbon Dioxide (21-32) mmol/L POC Total CO2 18 L (24-31) mmol/L Anion Gap (3-11) POC Anion Gap 19.0 (16-25) mmol/L POC BUN 20 H (7-18) mg/dl BUN (7-18) mg/dl Creatinine (0.6-1.2) mg/dl POC Creatinine 1.2 (0.6-1.3) mg/dl Est Cr Clr Drug Dosing ml/min Est GFR ( Amer) Est GFR (Non-Af Amer) BUN/Creatinine Ratio (10-20) Glucose (70-99) mg/dl POC Glucose (other) 137 H (70-99) mg/dl Lactate 1.9 (0.4-2.0) mmol/L Calcium (8.5-10.1) mg/dl POC Ioniz Calcium Ira 1.08 L (1.12-1.32) mmol/l Magnesium (1.8-2.4) mg/dl Total Bilirubin (0.2-1) mg/dl AST (15-37) U/L ALT (12-78) U/L Alkaline Phosphatase (45-117) U/L Total Protein (6.4-8.2) gm/dl Albumin (3.4-5.0) gm/dl Globulin (2.5-4.0) gm/dl Albumin/Globulin Ratio (0.9-2) Imaging Data Radiologist's Impression: XR chest 1V portable HISTORY: SEPSIS COMPARISON: Chest 07/20/2020. FINDINGS: The heart is normal in size. The lungs are clear. No pleural effusions. No pneumothorax. Old, healed upper right rib fractures are again noted. Old, healed left humeral neck fracture. IMPRESSION: No significant change compared to the prior study. No acute process. ACT 112: Negative or not required by law. Electronically signed by: Jimi Bangura M.D. 08/09/2020 5:[address] WITHOUT CONTRAST, LEFT TIBIA/FIBULA CT WITHOUT CONTRAST CT DOSE: 600.25 mGy.cm HISTORY: Left lower extremity redness, pain, swelling TECHNIQUE: Multiaxial CT images of the left femur and left lower leg were performed and reformatted in the sagittal and coronal plane without the use of contrast. A dose lowering technique was utilized adhering to the principles of ALARA. COMPARISON: None. FINDINGS: Bilateral ureteral stents are partially visualized and located within the bladder. Multiple calcifications surrounding the urethra likely representing a urethral diverticulum. Mild left inguinal and femoral lymphadenopathy with adjacent infiltration. No loculated fluid collections on this noncontrast study is suggested to suggest an abscess. Mild subcutaneous edema within the left lateral hip. No fracture or dislocation within the left femur, tibia, or fibula. Diffuse skin thickening seen within the left lower leg with mild subcutaneous fat stranding. IMPRESSION: 1. Mild left inguinal/femoral lymphadenopathy with surrounding fat stranding. This is nonspecific but may be reactive. 2. Mild diffuse skin thickening with subcutaneous fat stranding within the left lower leg. This could be due to edema or a cellulitis. 3. No loculated fluid collections on this noncontrast study to suggest an abscess. 4. No fractures within the left femur or left lower leg. ACT 112: Negative or not required by law. Electronically signed by: Jimi Bangura M.D. 08/09/2020 7:36 PM Blood Pressure Blood Pressure Findings: Low blood pressure MDM Narrative This 65-year-old female patient presents to the emergency department today for left lower extremity redness, pain, and swelling. This is consistent with lower extremity cellulitis and does seem to have been rapidly progressive since this morning. The patient did have a laceration 3 weeks ago and sutures were removed 1 week ago. At that time, she had a mild cellulitis in the area of the laceration which resolved in approximately 24 hours of increased antibiotics. Patient presents today with sudden onset of redness, pain, and fever which began only several hours prior to arrival. Given the acute nature and rapid progressi on according to the patient and her son, we did elect to perform CT imaging to rule out necrotizing fasciitis. This is consistent with an acute cellulitis, but no evidence of abscess and no clear evidence of subcutaneous gas. The patient was febrile and tachycardic on initial evaluation. Nursing staff did not obtain BP, but once this was obtained, it was noted to be low. The patient was immediately treated with IV fluids, Zofran, morphine, Zosyn, daptomycin, and clindamycin. The redness does seem to have improved with this treatment. The patient will be admitted to the hospitalist service due to sepsis and cellulitis. Please see hospitalist dictation regarding ongoing management care of this patient. The chart was completed utilizing [employer] Speech voice recognition software. Grammatical errors, random word insertions, pronoun errors, and incomplete sentences are an occasional consequence of this system due to software limitations, ambient noise, and hardware issues. Any formal questions or concerns about the content, text, or information contained within the body of this dictation should be directly addressed to the provider for clarification. Impression & Plan Cellulitis of left lower extremity, Sepsis Critical Care Time Critical Care Time: Yes Total Critical Care Time: 47 I have personally spent greater than 47 minutes of critical care time in the direct management of this patient to assess and manage sepsis. This includes bedside care, interpretation of diagnostic studies, and testing, discussion with consultants, patient, and family members, documentation time, and other required patient management activities. This 47 minutes is in excess of all separately billable procedures. Discharge Plan Visit Data Chief Complaint: Wound Recheck Stated Complaint: INFECTED LAC ED Provider: Florence Kulkarni ED Midlevel Provider: Sheron Mckeon Discharge Problem: Cellulitis of left lower extremity, Sepsis Patient Disposition: Admitted As Inpatient Forms Stand Alone Forms: [facility] Prescriptions Prescriptions: No Action cephalexin [Keflex] 500 mg capsule 500 mg PO BID RF: 0 doxycycline hyclate 100 mg capsule 100 mg PO BID RF: 0 vancomycin 125 mg capsule 125 mg PO 2XWK RF: 0 calcium carbonate-vitamin D3 [Caltrate with Vitamin D3] 600 mg(1,500mg) -800 unit tablet 1 tab PO QPM RF: 0 Symbicort 160-4.5 mcg/actuation HFA aerosol inhaler 2 puff INHALATION BID Qty: 10.2 RF: 11 ergocalciferol (vitamin D2) 1,250 mcg (50,000 unit) capsule 50,000 units PO WEEKLY Qty: 12 RF: 1 clonazepam [Klonopin] 1 mg tablet 1 mg PO HS Qty: 30 RF: 2 metoprolol succinate 50 mg tablet extended release 24 hr 50 mg PO QAM Qty: 30 RF: 5 potassium chloride 20 mEq tablet extended release 20 meq PO QAM Qty: 30 RF: 5 enoxaparin [Lovenox] 40 mg/0.4 mL syringe See Rx Instructions SQ QAM 30 Days Qty: 30 RF: 6 acyclovir 400 mg tablet 400 mg PO BID Qty: 60 RF: 2 Myrbetriq 50 mg tablet extended release 24 hr 50 mg PO HS Qty: 90 RF: 3 oxybutynin chloride 10 mg tablet extended release 24hr 10 mg PO QAM Qty: 90 RF: 1 albuterol sulfate [ProAir HFA] 90 mcg/actuation HFA aerosol inhaler 2 puff INHALATION QID PRN (Reason: Wheezing) Qty: 8.5 RF: 5 topiramate [Topamax] 100 mg tablet 100 mg PO .COMPLEX Qty: 90 RF: 5 rizatriptan [Maxalt-CLIENT EXPERIENCE MANAGER] 10 mg tablet,disintegrating 10 mg PO .COMPLEX Qty: 9 RF: 5 mupirocin 2 % ointment 1 applic topical BID 14 Days Qty: 15 RF: 2 gabapentin [Neurontin] 400 mg capsule 400 mg PO QAM RF: 0 cyanocobalamin (vitamin B-12) 1,000 mcg/mL Solution 1,000 mcg IM MONTHLY RF: 0 ferrous sulfate [iron] 325 mg (65 mg iron) Tablet 325 mg PO QAM RF: 0 vitamin E 400 unit Capsule 400 unit PO QAM RF: 0 psyllium husk [Metamucil] 0.52 gram Capsule 0.52 g PO QAM RF: 0 methocarbamol [Robaxin-750] 750 mg tablet 750 mg PO BID RF: 0 quetiapine [Seroquel] 50 mg tablet 50 mg PO HS RF: 0 multivitamin Tablet 1 tab PO QAM RF: 0 butorphanol 10 mg/mL [place],Non-Aerosol 1 spray INTRANASAL Q3H PRN (Reason: Migraine Headache) RF: 0 cetirizine [Zyrtec] 10 mg Tablet 10 mg PO QAM RF: 0 triamcinolone acetonide 0.025 % Cream 1 applic TOPICAL BID PRN (Reason: Skin Irritation) RF: 0 vitamin B complex [B-Complex] Tablet 1 tab PO QAM RF: 0 folic acid 1 mg Tablet 1 mg PO QAM RF: 0 coenzyme Q10 [CoQ-10] 100 mg Capsule 200 mg PO QAM RF: 0 Prolia 60 mg/mL Syringe 60 mg subcut Q6M RF: 0 Florajen3 460 mg (7.5-6- 1.5 bill. cell) Capsule 1 cap PO QAM RF: 0 magnesium oxide 400 mg Capsule 400 mg PO QAM RF: 0 Medical Marijuana 1 dose PO BID RF: 0 uuxaesnciw-eoeuiipmjqiti-lqvd [Esgic] 50-325-40 mg tablet See Rx Instructions .ROUTE .COMPLEX PRN (Reason: HEADACHES) RF: 0 Referrals Referrals: Rashid Villegas MD [Primary Care Provider] - Discharge Problem: Sepsis Qualifiers: Sepsis type: sepsis due to unspecified organism Sepsis acute organ dysfunction status: unspecified Qualified Code(s): A41.9 - Sepsis, unspecified organism
[2020-08-09] MEDS ORDERED: MoRPHine SULFATE 4 MG/ML 1 ML CARP\\VIAL IV STA (17:24)
[2020-08-09] MEDS ORDERED: ACETAMINOPHEN 1,000 MG/100 ML VIAL IV STA (17:24)
[2020-08-09] MEDS ORDERED: ONDANSETRON INJ 2 MG/ML 2 ML VIAL IV STA (17:24)
[2020-08-09 18:01] LABS: Hemoglobin 11.9 g/dL (12.0-16.0); Mean Corpuscular Hemoglobin 32.5 pg (25-34); Mean Corpuscular Hgb Conc 32.2 g/dL (32-36); Mean Corpuscular Volume 101.1 fL (80-100); RDW Coefficient of Variation 13.9 % (11.5-14.5); Red Blood Count 3.66 M/uL (4.2-5.4); White Blood Count 12.46 K/uL (4.8-10.8)
--- NOTE | 2020-08-09 18:01 | XRay Report ---
XR chest 1V portable HISTORY: SEPSIS COMPARISON: Chest 07/20/2020. FINDINGS: The heart is normal in size. The lungs are clear. No pleural effusions. No pneumothorax. Ol d, healed upper right rib fractures are again noted. Old, healed left humeral neck fracture. IMPRESSION: No significant change compared to the prior study. No acute process. ACT 112: Negative or not required by law. Electronically signed by: Jimi Bangura M.D. 08/09/2020 5:59 PM
[2020-08-09 18:06] LABS: iSTAT Creatinine 1.2 mg/dl (0.6-1.3); iSTAT Hemoglobin 12.6 g/dl (12.0-16.0); iSTAT Ionized Calcium 1.08 mmol/l (1.12-1.32); iSTAT Potassium 4.4 mmol/L (3.3-5.0)
[2020-08-09 18:12] LABS: Partial Thromboplastin Ratio 1.2; Partial Thromboplastin Time 32.5 Seconds (21.0-31.0); Prothrombin Time 10.9 Seconds (9.0-12.0)
[2020-08-09 18:19] LABS: Albumin Level 3.8 gm/dl (3.4-5.0); BUN Creatinine Ratio 14.3 (10-20); Calcium 8.4 mg/dl (8.5-10.1); Creatinine Clr Calc Pharmacy 33.4 ml/min; Est GFR (African American) 41.6; Est GFR (Non-African American) 35.9; Magnesium 2.1 mg/dl (1.8-2.4)
[2020-08-09 18:22] LABS: Bilirubin,Total 0.5 mg/dl (0.2-1); Globulin 3.9 gm/dl (2.5-4.0); Total Protein 7.7 gm/dl (6.4-8.2)
[2020-08-09 18:26] LABS: Mean Platelet Volume 10.4 fL (7.4-10.4); Platelet Count 99 K/uL (130-400)
[2020-08-09 18:28] LABS: Basophils # (auto) 0.01 K/uL (0-0.2); Basophils % (auto) 0.1 %; Eosinophils # (auto) 0.02 K/uL (0-0.5); Eosinophils % (auto) 0.2 %; Immature Granulocytes # (auto) 0.04 K/uL (0.00-0.02); Immature Granulocytes % (auto) 0.3 %; Lymphocytes # (auto) 1.42 K/uL (1.2-3.4); Lymphocytes % (auto) 11.4 %; Monocytes # (auto) 1.08 K/uL (0.11-0.59); Monocytes % (auto) 8.7 %; Neutrophils # (auto) 9.89 K/uL (1.4-6.5); Neutrophils % (auto) 79.3 %; Platelet Estimate Decreased (Normal)
--- NOTE | 2020-08-09 19:38 | CT Scan Report ---
LEFT FEMUR CT WITHOUT CONTRAST, LEFT TIBIA/FIBULA CT WITHOUT CONTRAST CT DOSE: 600.25 mGy.cm HISTORY: Left lower extremity redness, pain, swelling TECHNIQUE: Multiaxial CT images of the left femur and left lower leg were performed and reformatted i n the sagittal and coronal plane without the use of contrast. A dose lowering technique was utilized adhering to the principles of ALARA. COMPARISON: None. FINDINGS: Bilateral ureteral stents are partially visualized and located within the bladder. Multiple calcifications surrounding the urethra likely representing a urethral diverticulum. Mild left inguin al and femoral lymphadenopathy with adjacent infiltration. No loculated fluid collections on this non contrast study is suggested to suggest an abscess. Mild subcutaneous edema within the left lateral hi p. No fracture or dislocation within the left femur, tibia, or fibula. Diffuse skin thickening seen w ithin the left lower leg with mild subcutaneous fat stranding. IMPRESSION: 1. Mild left inguinal/femoral lymphadenopathy with surrounding fat stranding. This is nonspecific but may be reactive. 2. Mild diffuse skin thickening with subcutaneous fat stranding within the left lower leg. This could be due to edema or a cellulitis. 3. No loculated fluid collections on this noncontrast study to suggest an abscess. 4. No fractures within the left femur or left lower leg. ACT 112: Negative or not required by law. Electronically signed by: Jimi Bangura M.D. 08/09/2020 7:36 PM
[2020-08-09] MEDS ORDERED: SODIUM CHLORIDE 0.9% 1000ML 1,000 ML IV ONE (20:18)
--- NOTE | 2020-08-09 21:15 | History & Physical Report ---
Date of Service August 09, 2020 Assessment & Plan (1) Cellulitis of left lower extremity: Patient with recent trauma of LLE now with redness/pain/edema. Concern for cellulitis in setting of fever/chills/rigors/leukocytosis. 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 Imaging with no air or evidence of necrotizing fasciitis. Patient on Lovenox 40mg SQ daily at home -Check LLE duplex US -Shahram area of cellulitis -Follow cultures -Continue Zosyn, Daptomycin -Patient with history of C. diff - continue PO vancomycin and probiotic -Check CBC and CK in AM -Pain control with Oxycodone PRN -Tylenol as needed for fever Present on Admission?: Yes (2) Sepsis: As above. Patient febrile, +leukocytosis, hypotensive in the ER. Of note , patient states that her SBP is typically in the 90's. She denies CP/SOB/Palpitations/dizziness. -Follow cultures as above -Zosyn/Daptomycin for skin/soft tissue infection -IVF support Present on Admission?: Yes (3) Asthma: Patient with no cough/SOB or wheeze -Albuterol PRN -Fluticasone/Vilaterol Present on Admission?: Yes (4) Squamous cell carcinoma of lung: Patient to receive XRT -Outpatient followup as scheduled Present on Admission?: Yes (5) Chronic kidney disease, stage III (moderate): BUN=22, Cr=1.5 -Gentle IVF with LR at 100mL/hr -Avoid nephrotoxic agents -Renal dosing where needed -Monitor BUN/Cr/electroltyes and UOP Present on Admission?: Yes (6) Hypertension: Patient hypotensive at present -Hold antihypertensive agents -Continue to monitor F/E/N - LR at 100mL/hr x 1 liter, electrolytes WNL, Regular diet as tolerated Ppx - Lovenox 40 Code - Full Dispo - Admit to medical with telemetry Present on Admission?: Yes History of Present Illness Chief Complaint: LLE cellulitis Primary Care Provider: Reynold Villegas MD Rupali Duron is a pleasant 65yo female with multiple medical problems. Patient injured her LLE 3 weeks ago by bumping into the latch of a cooler leading to a laceration. She was seen in the ER and received 19 sutures. Her sutures were removed 7 days ago without difficulty. The wound healed well with no bleeding/drainage/dehiscence. Patient with history of cellulitis - she is on Doxycycline and Keflex daily for maintenance. Also with history of LLE DVT many years ago. She typically wears compression stockings, however, has been unable to wear them for the last 3 weeks due to her injury. Today she developed pain in her LLE, 6-8/10 in severity. Also with redness and swelling of her LLE. She had chills/rigors and a fever to 102 degrees. No additional complaints. ER Course: Tylenol. Clindamycin. Daptomycin. NSS. Morphine. Zofran. Zosyn Allergies Allergy/AdvReac Type Severity Reaction Status Date / Time bee venom protein (honey bee) Allergy Severe Difficulty Verified 08/09/20 23:03 Breathing Iodinated Contrast Media Allergy Intermediate Hives Verified 08/09/20 17:43 iodine Allergy Intermediate HIVES Verified 08/09/20 17:43 levofloxacin Allergy Intermediate numbness/we Verified 08/09/20 17:43 akness pregabalin Allergy Intermediate fever?/?cher Verified 08/09/20 17:43 h strawberry Allergy Intermediate HIVES Verified 08/09/20 17:43 Sulfa (Sulfonamide Allergy Intermediate RASH/HIVES Verified 08/09/20 17:43 Antibiotics) allopurinol Allergy Mild rash Verified 08/09/20 17:43 venlafaxine Allergy Unknown UNKNOWN Verified 08/09/20 17:43 gluten AdvReac Severe Celiac Dz Verified 08/09/20 17:43 = GI symptoms adhesive AdvReac Intermediate red torn Verified 08/09/20 17:43 skin propoxyphene AdvReac Intermediate [employer] INTER[employer] side Verified 08/09/20 17:43 effects Home Medications Home Medications Medication Instructions Recorded Confirmed Type Florajen3 1 cap PO QAM 07/16/18 08/09/20 History Prolia 60 mg SUBCUT Q6M 07/16/18 08/09/20 History butorphanol 1 spray INTRANASAL Q3H PRN 07/16/18 08/09/20 History cetirizine [Zyrtec] 10 mg PO QAM 07/16/18 08/09/20 History coenzyme Q10 [CoQ-10] 200 mg PO QAM 07/16/18 08/09/20 History folic acid 1 mg PO QAM 07/16/18 08/09/20 History magnesium oxide 400 mg PO QAM 07/16/18 08/09/20 History multivitamin 1 tab PO QAM 07/16/18 08/09/20 History triamcinolone acetonide 1 applic TOPICAL BID PRN 07/16/18 08/09/20 History vitamin B complex [B-Complex] 1 tab PO QAM 07/16/18 08/09/20 History calcium carbonate-vitamin D3 600 1 tab PO QPM 11/26/18 08/09/20 History mg (1,500 mg)-800 unit tablet cyanocobalamin (vitamin B-12) 1,000 mcg IM MONTHLY 02/10/19 08/09/20 History ferrous sulfate [iron] 325 mg PO QAM 02/10/19 08/09/20 History psyllium husk [Metamucil] 0.52 g PO QAM 08/28/19 08/09/20 History vitamin E 400 unit PO QAM 08/28/19 08/09/20 History budesonide-formoterol HFA 160 2 puff INHALATION BID #10.2 gm 09/15/19 08/09/20 Rx mcg-4.5 mcg/actuation aerosol inhaler albuterol sulfate 90 mcg/actuation 2 puff INHALATION QID PRN #8.5 gm 11/12/19 08/09/20 Rx aerosol inhaler ergocalciferol (vitamin D2) 1,250 50,000 units PO WEEKLY #12 cap 04/13/20 08/09/20 Rx mcg (50,000 unit) capsule gabapentin 400 mg capsule 400 mg PO QAM cap 04/26/20 08/09/20 History clonazepam 1 mg tablet 1 mg PO HS #30 tab 06/09/20 08/09/20 Rx metoprolol succinate 50 mg 50 mg PO QAM #30 tab 06/09/20 08/09/20 Rx tablet,extended release 24 hr potassium chloride 20 mEq 20 meq PO QAM #30 tab 06/09/20 08/09/20 Rx tablet,extended release enoxaparin 40 mg/0.4 mL See Rx Instructions SQ QAM 30 Days 06/10/20 08/09/20 Rx subcutaneous syringe #30 syr Medical Marijuana 1 dose PO BID 06/27/20 08/09/20 History ohcjyatzze-qvcqfuxszlwwq-vjpc See Rx Instructions .ROUTE 06/27/20 08/09/20 Histo ry [Esgic] .COMPLEX PRN acyclovir 400 mg tablet 400 mg PO BID #60 tab 06/29/20 08/09/20 Rx methocarbamol [Robaxin-750] 750 mg PO BID 07/09/20 08/09/20 History quetiapine [Seroquel] 50 mg PO HS 07/09/20 08/09/20 History mirabegron 50 mg tablet,extended 50 mg PO HS #90 tab 07/13/20 08/09/20 Rx release 24 hr oxybutynin chloride 10 mg 10 mg PO QAM #90 tab 07/13/20 08/09/20 Rx tablet,extended release 24 hr mupirocin 2 % topical ointment 1 applic TOPICAL BID 14 Days #15 g 08/02/20 08/09/20 Rx cephalexin 500 mg capsule 500 mg PO BID cap 08/05/20 08/09/20 History doxycycline hyclate 100 mg capsule 100 mg PO BID cap 08/05/20 08/09/20 History vancomycin 125 mg capsule 125 mg PO 2XWK cap 08/05/20 08/09/20 History rizatriptan 10 mg disintegrating 10 mg PO .COMPLEX #9 tab 08/06/20 08/09/20 Rx tablet topiramate 100 mg tablet 100 mg PO .COMPLEX #90 tab 08/06/20 08/09/20 Rx Past Med/Surg History Medical History Abnormal PET of right lung Acute UTI Anemia Asthma Celiac disease History of Hep C 2013 Cellulitis RECURRENT B/L LE - ON PROPHYLACTIC ABX (FOLLOWS W/ DR. BAUM). CURRENTLY NOT ACTIVE. BUT IF STOPS ABX FLARES UP Chest pain Chronic back pain Chronic hypoxemic respiratory failure Chronic kidney disease STAGE III Chronic obstructive pulmonary disease EMPHYSEMA ON O2 2L CONTINUOUS Chronic venous stasis WITH DERMATITIS AND RECURRENT CELLULITIS Cirrhosis COPD (chronic obstructive pulmonary disease) Heart palpitations Hx MRSA infection Hx of cancer of lung 2012> TREATED with radiation Hx of Clostridium difficile infection Hx of deep venous thrombosis Hx of hepatitis C 2003 - TREATED Hx of non-Hodgkin's lymphoma Hydronephrosis B/L CHRONIC HYDRONEPHROSIS REQUIRING ROUTINE STENT EXCHANGES Insomnia Lung cancer Lung nodule Malignant neoplasm of lower lobe, right bronchus or lung Medical marijuana use Migraine Mood disorder Near syncope On home oxygen therapy 2L continuous Osteoporosis Poor historian Primary hypercoagulable state 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 follows Dr. Pagan Thrombocytopenia CHRONIC Urge and stress incontinence Venous stasis Surgical History H/O bursectomy RIGHT KNEE History of bone marrow biopsy History of bronchoscopy History of carpal tunnel release LEFT History of cystoscopy most recent 10/27/2019 [place] Cystoscopy, Bilateral Retrograde, Bilateral Stent Exchange, Injection of Urethral Bulking Agent History of esophagogastroduodenoscopy (EGD) History of liver biopsy History of ureter stent MULTIPLE Hx of bladder repair surgery FOR PROLAPSE Hx of colonoscopy Hx of tonsillectomy Hx of tubal ligation Family History Unknown Heart disease Hypertension Mother Psoriasis Diabetes Social History Smoking Status: Former smoker Cigarettes Per Day: stopped february 2011; Smoking End Date: 2010; Second Hand Exposure: No; Do You Dip or Chew Tobacco: No; Tobacco Cessation Education Requested by Patient: No Hx Alcohol Use: No Hx Substance Use: Yes Last Used Substance: Just Prior to Arrival Last Used Substance Other:: this am Substance Use Type Other:: medical marijuana Preferred Language: Nauruan Communication Ability: Effective Visual Impairment: No Limitations Import Export Coordinator Required: No Beliefs That Will Affect Care: None Current Living Situation: Family Current Living Situation Comment: son and DIL Other Information That Helps Us Care for You: No Feels Safe at Home: Yes Safety Concerns: Feels Safe At This Time Assistive Devices: Glasses and Oxygen - Continuous Review of Systems Review of Systems: All systems reviewed & are unremarkable except as noted in HPI & below Physical Exam Physical Exam: General: patient resting comfortably, NAD, non-toxic in appearance, AA&O x 4 Skin: warm, dry, intact HEENT: NC/AT, PERRL, EOMI, anicteric sclera, conjunctiva without injection, external ear normal to inspection and nontender, nares patent, moist mucus membranes, dentition intact, no oropharyngeal lesions, neck supple, trachea midline, no LAD, no thyromegaly, no JVD Heart: +S1/S2, regular, no m/r/g Lungs: equal air entry bilaterally, no rales/rhonchi/wheezes Abd: +BS, soft, NT/ND, no masses/organomegaly/ascites Ext: warm, 2+ pulses in UE/LE bilaterally, LLE red and dusky in color, tender to palpation, 2+ pulses and sensation intact, darkened bullae present which patient assures me are old and unchanged, no crepitus or lymphangitic streaking Neuro: nonfocal, patient AA&O x 4, speech intact, no facial droop, moving all extremities on command with equal strength 5/5 Results & Data Results & Data ([facility]) Vital Signs (Past 12 Hours) Vital Signs Temp Pulse Pulse Resp BP BP Pulse Ox 08/09/20 20:45 73 13 92/54 L 100 08/09/20 20:30 68 17 89/43 L 100 08/09/20 20:25 99 08/09/20 20:19 19 81/42 L 100 08/09/20 20:13 16 80/44 L 100 08/09/20 20:00 19 100 08/09/20 19:33 80 16 88/38 L 99 08/09/20 19:26 78 15 88/38 L 99 08/09/20 16:41 39.4 C H 103 H 24 100 Laboratory Results Lab Results 08/09/20 08/09/20 08/09/20 Range/Units 17:44 17:44 17:44 WBC 12.46 H (4.8-10.8) K/uL RBC 3.66 L (4.2-5.4) M/uL Hgb 11.9 L (12.0-16.0) g/dL POC Hgb (12.0-16.0) g/dl Hct 37.0 (37-47) % POC Hct (37-47) % MCV 101.1 H (80-100) fL MCH 32.5 (25-34) pg MCHC 32.2 (32-36) g/dL RDW Std Deviation 51.0 H (36.4-46.3) fL RDW Coeff of Irasema 13.9 (11.5-14.5) % Plt Count 99 L (130-400) K/uL MPV 10.4 (7.4-10.4) fL Immature Gran % (Auto) 0.3 % Neut % (Auto) 79.3 % Lymph % (Auto) 11.4 % [place] % (Auto) 8.7 % Eos % (Auto) 0.2 % Baso % (Auto) 0.1 % Neut # (Auto) 9.89 H (1.4-6.5) K/uL Lymph # (Auto) 1.42 (1.2-3.4) K/uL [place] # (Auto) 1.08 H (0.11-0.59) K/uL Eos # (Auto) 0.02 (0-0.5) K/uL Baso # (Auto) 0.01 (0-0.2) K/uL Immature Gran # (Auto) 0.04 H (0.00-0.02) K/uL Platelet Estimate Decreased L (Normal) PT 10.9 (9.0-12.0) Seconds INR 1.0 (0.9-1.1) APTT 32.5 H (21.0-31.0) Seconds PTT Ratio 1.2 POC Sodium (135-144) mmol/L Sodium 140 (136-145) mmol/L POC Potassium (3.3-5.0) mmol/L Potassium 4.0 (3.5-5.1) mmol/L POC Chloride (101-112) mmol/L Chloride 110 H (98-107) mmol/L Carbon Dioxide 25 (21-32) mmol/L POC Total CO2 (24-31) mmol/L Anion Gap 4.0 (3-11) POC Anion Gap (16-25) mmol/L POC BUN (7-18) mg/dl BUN 22 H (7-18) mg/dl Creatinine 1.51 H (0.6-1.2) mg/dl POC Creatinine (0.6-1.3) mg/dl Est Cr Clr Drug Dosing 33.4 ml/min Est GFR ( Amer) 41.6 Est GFR (Non-Af Amer) 35.9 BUN/Creatinine Ratio 14.3 (10-20) Glucose 129 H (70-99) mg/dl POC Glucose (other) (70-99) mg/dl Lactate (0.4-2.0) mmol/L Calcium 8.4 L (8.5-10.1) mg/dl POC Ioniz Calcium Ira (1.12-1.32) mmol/l Magnesium 2.1 (1.8-2.4) mg/dl Total Bilirubin 0.5 (0.2-1) mg/dl AST 39 H (15-37) U/L ALT 79 H (12-78) U/L Alkaline Phosphatase 79 (45-117) U/L Total Protein 7.7 (6.4-8.2) gm/dl Albumin 3.8 (3.4-5.0) gm/dl Globulin 3.9 (2.5-4.0) gm/dl Albumin/Globulin Ratio 1.0 (0.9-2) Procalcitonin (0-0.5) ng/ml 08/09/20 08/09/20 08/09/20 Range/Units 17:53 18:09 21:25 WBC (4.8-10.8) K/uL RBC (4.2-5.4) M/uL Hgb (12.0-16.0) g/dL POC Hgb 12.6 (12.0-16.0) g/dl Hct (37-47) % POC Hct 37 (37-47) % MCV (80-100) fL MCH (25-34) pg MCHC (32-36) g/dL RDW Std Deviation (36.4-46.3) fL RDW Coeff of Irasema (11.5-14.5) % Plt Count (130-400) K/uL MPV (7.4-10.4) fL Immature Gran % (Auto) % Neut % (Auto) % Lymph % (Auto) % [place] % (Auto) % Eos % (Auto) % Baso % (Auto) % Neut # (Auto) (1.4-6.5) K/uL Lymph # (Auto) (1.2-3.4) K/uL [place] # (Auto) (0.11-0.59) K/uL Eos # (Auto) (0-0.5) K/uL Baso # (Auto) (0-0.2) K/uL Immature Gran # (Auto) (0.00-0.02) K/uL Platelet Estimate (Normal) PT (9.0-12.0) Seconds INR (0.9-1.1) APTT (21.0-31.0) Seconds PTT Ratio POC Sodium 141 (135-144) mmol/L Sodium (136-145) mmol/L POC Potassium 4.4 (3.3-5.0) mmol/L Potassium (3.5-5.1) mmol/L POC Chloride 109 (101-112) mmol/L Chloride (98-107) mmol/L Carbon Dioxide (21-32) mmol/L POC Total CO2 18 L (24-31) mmol/L Anion Gap (3-11) POC Anion Gap 19.0 (16-25) mmol/L POC BUN 20 H (7-18) mg/dl BUN (7-18) mg/dl Creatinine (0.6-1.2) mg/dl POC Creatinine 1.2 (0.6-1.3) mg/dl Est Cr Clr Drug Dosing ml/min Est GFR ( Amer) Est GFR (Non-Af Amer) BUN/Creatinine Ratio (10-20) Glucose (70-99) mg/dl POC Glucose (other) 137 H (70-99) mg/dl Lactate 1.9 (0.4-2.0) mmol/L Calcium (8.5-10.1) mg/dl POC Ioniz Calcium Ira 1.08 L (1.12-1.32) mmol/l Magnesium (1.8-2.4) mg/dl Total Bilirubin (0.2-1) mg/dl AST (15-37) U/L ALT (12-78) U/L Alkaline Phosphatase (45-117) U/L Total Protein (6.4-8.2) gm/dl Albumin (3.4-5.0) gm/dl Globulin (2.5-4.0) gm/dl Albumin/Globulin Ratio (0.9-2) Procalcitonin 0.32 (0-0.5) ng/ml Diagnostic Findings XR chest 1V portable HISTORY: SEPSIS COMPARISON: Chest 07/20/2020. FINDINGS: The heart is normal in size. The lungs are clear. No pleural effusions. No pneumothorax. Old, healed upper right rib fractures are again noted. Old, healed left humeral neck fracture. IMPRESSION: No significant change compared to the prior study. No acute process. ACT 112: Negative or not required by law. Electronically signed by: Jimi Bangura M.D. 08/09/2020 5:[address] WITHOUT CONTRAST, LEFT TIBIA/FIBULA CT WITHOUT CONTRAST CT DOSE: 600.25 mGy.cm HISTORY: Left lower extremity redness, pain, swelling TECHNIQUE: Multiaxial CT images of the left femur and left lower leg were performed and reformatted in the sagittal and coronal plane without the use of contrast. A dose lowering technique was utilized adhering to the principles of ALARA. COMPARISON: None. FINDINGS: Bilateral ureteral stents are partially visualized and located within the bladder. Multiple calcifications surrounding the urethra likely representing a urethral diverticulum. Mild left inguinal and femoral lymphadenopathy with adjacent infiltration. No loculated fluid collections on this noncontrast study is suggested to suggest an abscess. Mild subcutaneous edema within the left lateral hip. No fracture or dislocation within the left femur, tibia, or fibula. Diffuse skin thickening seen within the left lower leg with mild subcutaneous fat stranding. IMPRESSION: 1. Mild left inguinal/femoral lymphadenopathy with surrounding fat stranding. This is nonspecific but may be reactive. 2. Mild diffuse skin thickening with subcutaneous fat stranding within the left lower leg. This could be due to edema or a cellulitis. 3. No loculated fluid collections on this noncontrast study to suggest an abscess. 4. No fractures within the left femur or left lower leg. ACT 112: Negative or not required by law. Electronically signed by: Jimi Bangura M.D. 08/09/2020 7:36 PM Dictated: 08/09/201928 Transcribed: 08/09/201928 LEFT FEMUR CT WITHOUT CONTRAST, LEFT TIBIA/FIBULA CT WITHOUT CONTRAST CT DOSE: 600.25 mGy.cm HISTORY: Left lower extremity redness, pain, swelling TECHNIQUE: Multiaxial CT images of the left femur and left lower leg were performed and reformatted in the sagittal and coronal plane without the use of contrast. A dose lowering technique was utilized adhering to the principles of ALARA. COMPARISON: None. FINDINGS: Bilateral ureteral stents are partially visualized and located within the bladder. Multiple calcifications surrounding the urethra likely representing a urethral diverticulum. Mild left inguinal and femoral lymphadenopathy with adjacent infiltration. No loculated fluid collections on this noncontrast study is suggested to suggest an abscess. Mild subcutaneous edema within the left lateral hip. No fracture or dislocation within the left femur, tibia, or fibula. Diffuse skin thickening seen within the left lower leg with mild subcutaneous fat stranding. IMPRESSION: 1. Mild left inguinal/femoral lymphadenopathy with surrounding fat stranding. This is nonspecific but may be reactive. 2. Mild diffuse skin thickening with subcutaneous fat stranding within the left lower leg. This could be due to edema or a cellulitis. 3. No loculated fluid collections on this noncontrast study to suggest an abscess. 4. No fractures within the left femur or left lower leg. ACT 112: Negative or not required by law. Electronically signed by: Jimi Bangura M.D. 08/09/2020 7:36 PM Dictated: 08/09/201928 Transcribed: 08/09/201928 ECG Additional Comments: NSR at 94, normal axis, HI=976, QRS=78, NcI=211, No acute ischemic changes Code Status & VTE Plan Code Status FULL CODE VTE Prophylaxis Plan VTE Prophylaxis will be ordered: Yes PG Care Time/CCT Total # of Minutes Spent Total Time Spent with Patient: Total time spent is greater than 50% in coordination of care (as documented) at patient's floor/unit and/or counseling patient: Coding Level of Care Code 61021 Initial Inpt Care Lvl 3 Diagnoses Cellulitis of left lower extremity L03.116 Sepsis A41.9 Sepsis acute organ dysfunction status: unspecified Sepsis type: sepsis due to unspecified organism Asthma J45.30 Asthma severity: mild Asthma persistence: persistent Asthma complication type: uncomplicated Squamous cell carcinoma of lung C34.90 Chronic kidney disease, stage III (moderate) N18.30 Chronic kidney disease stage 3 subtype: unspecified whether 3a or 3b Hypertension I10 Hypertension type: essential hypertension (1) Sepsis Sepsis acute organ dysfunction status: unspecified Sepsis type: sepsis due to unspecified organism Qualified Code(s): A41.9 - Sepsis, unspecified organism (2) Asthma Asthma severity: mild Asthma persistence: persistent Asthma complication type: uncomplicated Qualified Code(s): J45.30 - Mild persistent asthma, uncomplicated (3) Chronic kidney disease, stage III (moderate) Chronic kidney disease stage 3 subtype: unspecified whether 3a or 3b Qualified Code(s): N18.30 - Chronic kidney disease, stage 3 unspecified (4) Hypertension Hypertension type: essential hypertension Qualified Code(s): I10 - Essential (primary) hypertension
[2020-08-09] MEDS ORDERED: ONDANSETRON INJ 2 MG/ML 2 ML VIAL IV PRN (22:50)
[2020-08-09] MEDS ORDERED: PIPERACILL/TAZOBAC CONSULT ACTIVE PRN (22:50)
[2020-08-09] MEDS ORDERED: ALBUTEROL HFA 8 GM INHALER INH PRN (23:25)
[2020-08-09] MEDS: LACTATED RINGER'S 1,000 ML IV SCH (23:27)
[2020-08-09] MEDS: oxyCODONE HCL IR 5 MG TAB (IMMEDIATE RELEASE) PO PRN (23:33)
[2020-08-10] MEDS: ACETAMINOPHEN 325 MG TAB PO PRN ×2 (03:03→16:40)
[2020-08-10 06:49] LABS: Appearance Urine Cloudy (Clear); Bacteria Urine Automated Negative (Negative); Bilirubin Urine Negative (Negative); Blood Urine 3+ (Negative); Color Urine Yellow; Epithelial Cell Urine Auto >30 /lpf (0-5); Glucose Urine UA Negative (Negative); Ketones Urine Negative (Negative); Leukocyte Esterase Urine 2+ (Negative); Nitrite Urine Negative (Negative); Protein Urine 2+ (Negative); RBC Urine Automated >30 /hpf (0-4); Specific Gravity Urine 1.024 (1.000-1.030); Urobilinogen Urine Negative (Negative); WBC Urine Automated >30 /hpf (0-5); pH Urine 5.5 (4.5-7.5)
--- NOTE | 2020-08-10 08:30 | Ultrasound Report ---
US venous doppler LE LT CLINICAL HISTORY: Left lower extremity redness pain and edema. COMPARISON STUDY: October 2017 FINDINGS: Real-time and color flow Doppler imaging were performed. Flow was seen within the femoral, popliteal and calf veins with no intraluminal thrombus demonstrated. The saphenous vein is patent. Mildly prominent left inguinal lymph nodes are likely reactive. IMPRESSION: No evidence of left lower extremity DVT. ACT 112: Negative or not required by law. Electronically signed by: Octavio Penny M.D. 08/10/2020 8:29 AM
[2020-08-10] MEDS: ENOXAPARIN INJ 40 MG/0.4 ML SYR SQ SCH (08:42)
[2020-08-10] MEDS: FOLIC ACID 1 MG TAB PO SCH (08:43)
[2020-08-10] MEDS: ACYCLOVIR 400 MG TAB PO SCH ×3 (08:43→22:20)
[2020-08-10] MEDS: GABAPENTIN 400 MG CAP PO SCH (08:43)
[2020-08-10] MEDS: FERROUS SULFATE 325 MG TAB PO SCH (08:43)
[2020-08-10] MEDS: CETIRIZINE HCL 10 MG TABLET PO SCH (08:44)
[2020-08-10] MEDS: TOPIRAMATE 100 MG TAB PO SCH (08:44)
[2020-08-10] MEDS: OXYBUTYNIN CHLORIDE XL 5 MG TABCR PO SCH (08:44)
[2020-08-10] MEDS: METHOCARBAMOL 750 MG TABLET PO SCH ×3 (08:44→22:20)
[2020-08-10] MEDS: METOPROLOL SUCC 50MG EXT REL TAB PO SCH (08:44)
[2020-08-10] MEDS: FLUTICASONE/VILANTEROL 100/25MCG 14 PUFFS/INHALER INH SCH (08:45)
[2020-08-10] MEDS: ADVANCED PROBIOTIC 1250 MG CAPSULE PO SCH (08:45)
[2020-08-10] MEDS: oxyCODONE HCL IR 5 MG TAB (IMMEDIATE RELEASE) PO PRN ×3 (08:49→20:27)
[2020-08-10] MEDS: PIPERACILLIN/TAZOBACTAM 3.375 GM in DEXTROSE 5% 100 ML IV SCH ×3 (08:49→16:05)
[2020-08-10] MEDS: LACTATED RINGER'S 1,000 ML IV SCH (08:56)
[2020-08-10] MEDS: MEDICAL MARIJUANA INH SCH ×2 (08:57→22:20)
[2020-08-10] MEDS ORDERED: MUPIROCIN 2% OINT 22 GM TUBE EXT SCH (09:00)
[2020-08-10 09:05] LABS: Hematocrit (blood only) 35.4 % (37-47); Hemoglobin 11.4 g/dL (12.0-16.0); Mean Corpuscular Hemoglobin 32.6 pg (25-34); Mean Corpuscular Hgb Conc 32.2 g/dL (32-36); Mean Corpuscular Volume 101.1 fL (80-100); RDW Coefficient of Variation 14.1 % (11.5-14.5); RDW Standard Deviation 51.5 fL (36.4-46.3); White Blood Count 7.48 K/uL (4.8-10.8)
[2020-08-10 09:24] LABS: Albumin Level 2.8 gm/dl (3.4-5.0); BUN Creatinine Ratio 13.8 (10-20); Bilirubin Direct 0.3 mg/dl (0-0.2); Calcium 8.2 mg/dl (8.5-10.1); Est GFR (African American) 44.1; Potassium 3.8 mmol/L (3.5-5.1)
[2020-08-10 09:31] LABS: Mean Platelet Volume 10.3 fL (7.4-10.4); Platelet Count 86 K/uL (130-400)
[2020-08-10 09:32] LABS: Basophils # (auto) 0.02 K/uL (0-0.2); Basophils % (auto) 0.3 %; Eosinophils # (auto) 0.09 K/uL (0-0.5); Eosinophils % (auto) 1.2 %; Immature Granulocytes # (auto) 0.01 K/uL (0.00-0.02); Immature Granulocytes % (auto) 0.1 %; Lymphocytes # (auto) 1.87 K/uL (1.2-3.4); Monocytes # (auto) 0.88 K/uL (0.11-0.59); Monocytes % (auto) 11.8 %; Neutrophils # (auto) 4.61 K/uL (1.4-6.5); Neutrophils % (auto) 61.6 %
--- NOTE | 2020-08-10 09:43 | Electrocardiogram Report ---
Test Reason : Blood Pressure : / mmHG Vent. Rate : 094 BPM Atrial Rate : 094 BPM P-R Int : 146 ms QRS Dur : 078 ms QT Int : 358 ms P-R-T Axes : 064 -15 061 degrees QTc Int : 447 ms Normal sinus rhythm Normal ECG When compared with ECG of 27-JUN-2020 14:55, No significant change was found Confirmed by Collin Deng ([id number]) on 08/10/2020 9:43:25 AM Referred By: REFERRED SELF Confirmed By:Collin Deng
[2020-08-10 09:47] LABS: Bilirubin,Total 0.8 mg/dl (0.2-1); Total Protein 6.2 gm/dl (6.4-8.2)
[2020-08-10] MEDS: PSYLLIUM 58.6% POWDER PACKET PO SCH (12:21)
--- NOTE | 2020-08-10 13:02 | Hospitalist Progress Note ---
Date of Service August 10, 2020 Assessment & Plan (1) Cellulitis of left lower extremity: * Patient with recent trauma of LLE now with redness/pain/edema. Concern for cellulitis in setting of fever/chills/rigors/leukocytosis. * Patient with reported Prothrombin gene mutation, prior DVTs involving the LLE as well as active malignancy (squamous cell). * CT LE with no air or evidence of necrotizing fasciitis. * US Doppler NEGATIVE for DVT * Blood cultures pending -- NGTD * Continue Zosyn, Daptomycin. CK 58 * ID Consulted -- appreciate recommendations * Continue PO Vanco + probiotic for hx cdiff * Oxycodone prn pain, added morphine IV for breakthrough * Tylenol prn fever -- initial temp 39.4C on admission (typically runs low), afebrile since that time * Continue to monitor * Transferred to medical floor as had been NSR 60-100 on monitor without issue (2) Sepsis: * As above. Patient febrile, +leukocytosis, hypotensive in the ER. Of note, patient states that her SBP is typically in the 90's. She denies CP/SOB/Palpitations/dizziness. * Follow cultures as above * Zosyn/Daptomycin for skin/soft tissue infection * IVF support with LR @ 100cc/hr (3) Asthma: * Patient with no cough/SOB or wheeze * Albuterol PRN * Fluticasone/Vilaterol * Stable (4) Squamous cell carcinoma of lung: * New primary, although does have hx of such as well. Discovered on PET scan ordered by Dr. 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 Pt with hx non-hodgkins lymphoma as well Admission and Anticipated Discharge Date Admission Date: August 09, 2020 Supervising Physician Co-Signing Physician Notes RHINA Supervision Note: I did not personally see or examine the patient today, but I verified all george points of RHINA Mirza's assessment and plan with the following exceptions/additions: Of note, patient with chronic microscopic hematuria and bilateral indwelling ureteral stents last exchanged in 03/2020. Will be due for exchange in 08/2020. Otherwise continue with treatment as above Follow urine cultures, blood cultures Subjective Patient evaluated this afternoon. Pain controlled with morphine initially given in ER but states minimal if no relief with current oxycodone, which she has received twice today in addition to her medical marijuana. Discussed ordering additional low dose morphine for now and to let staff know if ineffective but hopeful once infection settled down oral options will be sufficient. She states she had been doing well yesterday and had an appointment for markings for her radiation yesterday morning, which will begin in another 7-10 days by oncology per her account but is not sure of set date at this time. Then she went to her eye doctor appointment and she had walked back the [place] and back to use bathroom and noted she didn't feel quite right and had a temperature of 99 degrees F. She typically runs on the lower side and son's girlfriend told her maybe she got all worked up from the walk back the [place]. She notes later once they got home she noted pain in her extremities and looked down and saw her left leg was hot and swollen to tender to even sheet laying overtop of it. She had required sutures of recent laceration to left knee area that were removed approximately 8 days ago and had initially had some redness once sutures removed, but no issues with this until just last evening. Already on chronic doxy/keflex outpatient for chronic cellulitis and is worried about these maybe not being effective any longer. Discussed obtaining ID consultation for further recommendations moving forward. No fever, chills, chest pain, shortness of breath, abdominal pain, dysuria at th is time. Review of Systems Review of Systems: All systems reviewed & are unremarkable except as noted in HPI & below Physical Exam Constitutional: + cachectic; no acute distress Eyes: + anicteric sclerae and PERRL Neck: trachea midline, no thyromegaly Respiratory: normal respiratory effort; no respiratory distress and no labored breathing Auscultation: + diminished lung sounds coarse BS throughout 98% on 2L via NC Cardiovascular: Rate/Rhythm: regular rate and regular rhythm Heart Sounds: normal S1 and normal S2 Vessels: no JVD Gastrointestinal (Abdomen): normal bowel sounds, soft, nontender, no hepatosplenomegaly Musculoskeletal: Head/Neck/Chest: normocephalic and head atraumatic Skin: left leg with erythema, edema, warmth to knee within markings extremely tender to palpation Neurologic: PERRL, EOMI, accommodation nl, no face palsy, no dysarthria Psychiatric: Orientation: alert and oriented x 3 Lymphatic: no cervical or axillary lymphadenopathy Results & Data Results & Data ([facility]) Vital Signs (Past 12 Hours) Vital Signs Temp Pulse Pulse Resp BP Pulse Ox 08/10/20 11:38 36.6 C 73 20 93/57 L 100 08/10/20 07:26 77 08/10/20 07:00 36.9 C 75 18 93/55 L 99 08/10/20 03:00 37.2 C 79 20 95/60 L 100 08/10/20 01:43 36.7 C 08/10/20 01:39 102 H Laboratory Results 08/10/20 08/10/20 08/10/20 Range/Units 08:44 08:44 05:40 WBC 7.48 (4.8-10.8) K/uL RBC 3.50 L (4.2-5.4) M/uL Hgb 11.4 L (12.0-16.0) g/dL POC Hgb (12.0-16.0) g/dl Hct 35.4 L (37-47) % POC Hct (37-47) % MCV 101.1 H (80-100) fL MCH 32.6 (25-34) pg MCHC 32.2 (32-36) g/dL RDW Std Deviation 51.5 H (36.4-46.3) fL RDW Coeff of Irasema 14.1 (11.5-14.5) % Plt Count 86 L (130-400) K/uL MPV 10.3 (7.4-10.4) fL Immature Gran % (Auto) 0.1 % Neut % (Auto) 61.6 % Lymph % (Auto) 25.0 % Troup % (Auto) 11.8 % Eos % (Auto) 1.2 % Baso % (Auto) 0.3 % Neut # (Auto) 4.61 (1.4-6.5) K/uL Lymph # (Auto) 1.87 (1.2-3.4) K/uL Troup # (Auto) 0.88 H (0.11-0.59) K/uL Eos # (Auto) 0.09 (0-0.5) K/uL Baso # (Auto) 0.02 (0-0.2) K/uL Immature Gran # (Auto) 0.01 (0.00-0.02) K/uL Platelet Estimate (Normal) PT (9.0-12.0) Seconds INR (0.9-1.1) APTT (21.0-31.0) Seconds PTT Ratio POC Sodium (135-144) mmol/L Sodium 141 (136-145) mmol/L POC Potassium (3.3-5.0) mmol/L Potassium 3.8 (3.5-5.1) mmol/L POC Chloride (101-112) mmol/L Chloride 114 H (98-107) mmol/L Carbon Dioxide 23 (21-32) mmol/L POC Total CO2 (24-31) mmol/L Anion Gap 5.0 (3-11) POC Anion Gap (16-25) mmol/L POC BUN (7-18) mg/dl BUN 20 H (7-18) mg/dl Creatinine 1.44 H (0.6-1.2) mg/dl POC Creatinine (0.6-1.3) mg/dl Est Cr Clr Drug Dosing 35.0 ml/min Est GFR ( Amer) 44.1 Est GFR (Non-Af Amer) 38.0 BUN/Creatinine Ratio 13.8 (10-20) Glucose 94 (70-99) mg/dl POC Glucose (other) (70-99) mg/dl Lactate (0.4-2.0) mmol/L Calcium 8.2 L (8.5-10.1) mg/dl POC Ioniz Calcium Ira (1.12-1.32) mmol/l Magnesium (1.8-2.4) mg/dl Total Bilirubin 0.8 (0.2-1) mg/dl Direct Bilirubin 0.3 H (0-0.2) mg/dl AST 21 (15-37) U/L ALT 58 (12-78) U/L Alkaline Phosphatase 64 (45-117) U/L Total Creatine Kinase 58 (26-192) U/L Total Protein 6.2 L (6.4-8.2) gm/dl Albumin 2.8 L (3.4-5.0) gm/dl Globulin (2.5-4.0) gm/dl Albumin/Globulin Ratio (0.9-2) Procalcitonin (0-0.5) ng/ml Urine Color Yellow Urine Appearance Cloudy A (Clear) Urine pH 5.5 (4.5-7.5) Ur Specific Baldwin 1.024 (1.000-1.030) Urine Protein 2+ H (Negative) Urine Glucose (UA) Negative (Negative) Urine Ketones Negative (Negative) Urine Blood 3+ H (Negative) Urine Nitrite Negative (Negative) Urine Bilirubin Negative (Negative) Urine Urobilinogen Negative (Negative) Ur Leukocyte Esterase 2+ H (Negative) Urine WBC (Auto) >30 H (0-5) /hpf Urine RBC (Auto) >30 H (0-4) /hpf U Hyaline Cast (Auto) 1-5 (0-5) /lpf U Epithel Cells (Auto) >30 H (0-5) /lpf Urine Bacteria (Auto) Negative (Negative) 08/09/20 08/09/20 08/09/20 Range/Units 21:25 18:09 17:53 WBC (4.8-10.8) K/uL RBC (4.2-5.4) M/uL Hgb (12.0-16.0) g/dL POC Hgb 12.6 (12.0-16.0) g/dl Hct (37-47) % POC Hct 37 (37-47) % MCV (80-100) fL MCH (25-34) pg MCHC (32-36) g/dL RDW Std Deviation (36.4-46.3) fL RDW Coeff of Irasema (11.5-14.5) % Plt Count (130-400) K/uL MPV (7.4-10.4) fL Immature Gran % (Auto) % Neut % (Auto) % Lymph % (Auto) % Troup % (Auto) % Eos % (Auto) % Baso % (Auto) % Neut # (Auto) (1.4-6.5) K/uL Lymph # (Auto) (1.2-3.4) K/uL Troup # (Auto) (0.11-0.59) K/uL Eos # (Auto) (0-0.5) K/uL Baso # (Auto) (0-0.2) K/uL Immature Gran # (Auto) (0.00-0.02) K/uL Platelet Estimate (Normal) PT (9.0-12.0) Seconds INR (0.9-1.1) APTT (21.0-31.0) Seconds PTT Ratio POC Sodium 141 (135-144) mmol/L Sodium (136-145) mmol/L POC Potassium 4.4 (3.3-5.0) mmol/L Potassium (3.5-5.1) mmol/L POC Chloride 109 (101-112) mmol/L Chloride (98-107) mmol/L Carbon Dioxide (21-32) mmol/L POC Total CO2 18 L (24-31) mmol/L Anion Gap (3-11) POC Anion Gap 19.0 (16-25) mmol/L POC BUN 20 H (7-18) mg/dl BUN (7-18) mg/dl Creatinine (0.6-1.2) mg/dl POC Creatinine 1.2 (0.6-1.3) mg/dl Est Cr Clr Drug Dosing ml/min Est GFR ( Amer) Est GFR (Non-Af Amer) BUN/Creatinine Ratio (10-20) Glucose (70-99) mg/dl POC Glucose (other) 137 H (70-99) mg/dl Lactate 1.9 (0.4-2.0) mmol/L Calcium (8.5-10.1) mg/dl POC Ioniz Calcium Ira 1.08 L (1.12-1.32) mmol/l Magnesium (1.8-2.4) mg/dl Total Bilirubin (0.2-1) mg/dl Direct Bilirubin (0-0.2) mg/dl AST (15-37) U/L ALT (12-78) U/L Alkaline Phosphatase (45-117) U/L Total Creatine Kinase (26-192) U/L Total Protein (6.4-8.2) gm/dl Albumin (3.4-5.0) gm/dl Globulin (2.5-4.0) gm/dl Albumin/Globulin Ratio (0.9-2) Procalcitonin 0.32 (0-0.5) ng/ml Urine Color Urine Appearance (Clear) Urine pH (4.5-7.5) Ur Specific Baldwin (1.000-1.030) Urine Protein (Negative) Urine Glucose (UA) (Negative) Urine Ketones (Negative) Urine Blood (Negative) Urine Nitrite (Negative) Urine Bilirubin (Negative) Urine Urobilinogen (Negative) Ur Leukocyte Esterase (Negative) Urine WBC (Auto) (0-5) /hpf Urine RBC (Auto) (0-4) /hpf U Hyaline Cast (Auto) (0-5) /lpf U Epithel Cells (Auto) (0-5) /lpf Urine Bacteria (Auto) (Negative) 08/09/20 08/09/20 08/09/20 Range/Units 17:44 17:44 17:44 WBC 12.46 H (4.8-10.8) K/uL RBC 3.66 L (4.2-5.4) M/uL Hgb 11.9 L (12.0-16.0) g/dL POC Hgb (12.0-16.0) g/dl Hct 37.0 (37-47) % POC Hct (37-47) % MCV 101.1 H (80-100) fL MCH 32.5 (25-34) pg MCHC 32.2 (32-36) g/dL RDW Std Deviation 51.0 H (36.4-46.3) fL RDW Coeff of Irasema 13.9 (11.5-14.5) % Plt Count 99 L (130-400) K/uL MPV 10.4 (7.4-10.4) fL Immature Gran % (Auto) 0.3 % Neut % (Auto) 79.3 % Lymph % (Auto) 11.4 % Troup % (Auto) 8.7 % Eos % (Auto) 0.2 % Baso % (Auto) 0.1 % Neut # (Auto) 9.89 H (1.4-6.5) K/uL Lymph # (Auto) 1.42 (1.2-3.4) K/uL [place]oup # (Auto) 1.08 H (0.11-0.59) K/uL Eos # (Auto) 0.02 (0-0.5) K/uL Baso # (Auto) 0.01 (0-0.2) K/uL Immature Gran # (Auto) 0.04 H (0.00-0.02) K/uL Platelet Estimate Decreased L (Normal) PT 10.9 (9.0-12.0) Seconds INR 1.0 (0.9-1.1) APTT 32.5 H (21.0-31.0) Seconds PTT Ratio 1.2 POC Sodium (135-144) mmol/L Sodium 140 (136-145) mmol/L POC Potassium (3.3-5.0) mmol/L Potassium 4.0 (3.5-5.1) mmol/L POC Chloride (101-112) mmol/L Chloride 110 H (98-107) mmol/L Carbon Dioxide 25 (21-32) mmol/L POC Total CO2 (24-31) mmol/L Anion Gap 4.0 (3-11) POC Anion Gap (16-25) mmol/L POC BUN (7-18) mg/dl BUN 22 H (7-18) mg/dl Creatinine 1.51 H (0.6-1.2) mg/dl POC Creatinine (0.6-1.3) mg/dl Est Cr Clr Drug Dosing 33.4 ml/min Est GFR ( Amer) 41.6 Est GFR (Non-Af Amer) 35.9 BUN/Creatinine Ratio 14.3 (10-20) Glucose 129 H (70-99) mg/dl POC Glucose (other) (70-99) mg/dl Lactate (0.4-2.0) mmol/L Calcium 8.4 L (8.5-10.1) mg/dl POC Ioniz Calcium Ira (1.12-1.32) mmol/l Magnesium 2.1 (1.8-2.4) mg/dl Total Bilirubin 0.5 (0.2-1) mg/dl Direct Bilirubin (0-0.2) mg/dl AST 39 H (15-37) U/L ALT 79 H (12-78) U/L Alkaline Phosphatase 79 (45-117) U/L Total Creatine Kinase (26-192) U/L Total Protein 7.7 (6.4-8.2) gm/dl Albumin 3.8 (3.4-5.0) gm/dl Globulin 3.9 (2.5-4.0) gm/dl Albumin/Globulin Ratio 1.0 (0.9-2) Procalcitonin (0-0.5) ng/ml Urine Color Urine Appearance (Clear) Urine pH (4.5-7.5) Ur Specific Baldwin (1.000-1.030) Urine Protein (Negative) Urine Glucose (UA) (Negative) Urine Ketones (Negative) Urine Blood (Negative) Urine Nitrite (Negative) Urine Bilirubin (Negative) Urine Urobilinogen (Negative) Ur Leukocyte Esterase (Negative) Urine WBC (Auto) (0-5) /hpf Urine RBC (Auto) (0-4) /hpf U Hyaline Cast (Auto) (0-5) /lpf U Epithel Cells (Auto) (0-5) /lpf Urine Bacteria (Auto) (Negative) Diagnostic Findings LEFT FEMUR CT WITHOUT, LEFT TIBIA/FIBULA CT WITHOUT CONTRAST IMPRESSION: 1. Mild left inguinal/femoral lymphadenopathy with surrounding fat stranding. This is nonspecific but may be reactive. 2. Mild diffuse skin thickening with subcutaneous fat stranding within the left lower leg. This could be due to edema or a cellulitis. 3. No loculated fluid collections on this noncontrast study to suggest an abscess. 4. No fractures within the left femur or left lower leg. US Doppler LE LT IMPRESSION: No evidence of left lower extremity DVT. PG Care Time/CCT Total # of Minutes Spent Total Time Spent with Patient: Total time spent is greater than 50% in coordination of care (as documented) at patient's floor/unit and/or counseling patient: Coding Level of Care Code 62560 Subseq Hosp Care Lvl 3 Diagnoses Cellulitis of left lower extremity L03.116 Sepsis A41.9 Sepsis acute organ dysfunction status: unspecified Sepsis type: sepsis due to unspecified organism Asthma J45.30 Asthma complication type: uncomplicated Asthma persistence: persistent Asthma severity: mild Squamous cell carcinoma of lung C34.90 Chronic kidney disease, stage III (moderate) N18.30 Chronic kidney disease stage 3 subtype: unspecified whether 3a or 3b Hypertension I10 Hypertension type: essential hypertension Prothrombin [id number] mutation D68.52 Chronic hypoxemic respiratory failure J96.11 DVT prophylaxis Z29.9 (1) Chronic kidney disease, stage III (moderate) Chronic kidney disease stage 3 subtype: unspecified whether 3a or 3b Qualified Code(s): N18.30 - Chronic kidney disease, stage 3 unspecified (2) Sepsis Sepsis acute organ dysfunction status: unspecified Sepsis type: sepsis due to unspecified organism Qualified Code(s): A41.9 - Sepsis, unspecified organism (3) Hypertension Hypertension type: essential hypertension Qualified Code(s): I10 - Essential (primary) hypertension (4) Asthma Asthma complication type: uncomplicated Asthma persistence: persistent Asthma severity: mild Qualified Code(s): J45.30 - Mild persistent asthma, uncomplicated
[2020-08-10] MEDS: MUPIROCIN 2% OINT 22 GM TUBE EXT SCH ×2 (13:21→20:24)
[2020-08-10] MEDS ORDERED: BUTORPHANOL TARTRATE 10 MG/ML NAE PRN (16:00)
[2020-08-10] MEDS: MoRPHine SULFATE 2 MG/ML CARP IV PRN ×2 (16:01→22:20)
[2020-08-10] MEDS: DAPTOmycin 225 MG in SYRINGE 0 ML IV SCH (18:10)
[2020-08-10] MEDS: TOPIRAMATE 50 MG TAB PO SCH ×2 (20:23→22:20)
[2020-08-10] MEDS: QUEtiapine FUMARATE 25 MG TABLET PO SCH ×3 (20:23→22:21)
[2020-08-10] MEDS: MIRABEGRON ER 25 MG TAB PO SCH ×3 (20:23→22:20)
[2020-08-10] MEDS: clonazePAM 1 MG TAB PO SCH ×3 (20:28→22:20)
[2020-08-10] MEDS ORDERED: TOPIRAMATE 50 MG TAB PO SCH (21:00)
[2020-08-11] MEDS: PIPERACILLIN/TAZOBACTAM 3.375 GM in DEXTROSE 5% 100 ML IV SCH ×4 (01:14→23:34)
[2020-08-11] MEDS: oxyCODONE HCL IR 5 MG TAB (IMMEDIATE RELEASE) PO PRN ×5 (01:14→22:14)
[2020-08-11 05:56] LABS: Hematocrit (blood only) 33.8 % (37-47); Hemoglobin 10.7 g/dL (12.0-16.0); Mean Corpuscular Hemoglobin 32.4 pg (25-34); Mean Corpuscular Hgb Conc 31.7 g/dL (32-36); Mean Corpuscular Volume 102.4 fL (80-100); RDW Coefficient of Variation 14.2 % (11.5-14.5); RDW Standard Deviation 53.4 fL (36.4-46.3); White Blood Count 6.58 K/uL (4.8-10.8)
[2020-08-11 05:58] LABS: Mean Platelet Volume 10.5 fL (7.4-10.4); Platelet Count 94 K/uL (130-400)
[2020-08-11 06:05] LABS: Partial Thromboplastin Ratio 1.2; Partial Thromboplastin Time 34.5 Seconds (21.0-31.0)
[2020-08-11 06:23] LABS: Albumin Level 2.7 gm/dl (3.4-5.0); BUN Creatinine Ratio 12.6 (10-20); Basophils # (auto) 0.01 K/uL (0-0.2); Basophils % (auto) 0.2 %; Calcium 7.6 mg/dl (8.5-10.1); Creatinine Clr Calc Pharmacy 31.5 ml/min; Eosinophils # (auto) 0.15 K/uL (0-0.5); Eosinophils % (auto) 2.3 %; Est GFR (African American) 38.8; Est GFR (Non-African American) 33.5; Immature Granulocytes # (auto) 0.02 K/uL (0.00-0.02); Immature Granulocytes % (auto) 0.3 %; Lymphocytes # (auto) 1.81 K/uL (1.2-3.4); Lymphocytes % (auto) 27.5 %; Magnesium 2.3 mg/dl (1.8-2.4); Monocytes # (auto) 0.65 K/uL (0.11-0.59); Monocytes % (auto) 9.9 %; Neutrophils # (auto) 3.94 K/uL (1.4-6.5); Neutrophils % (auto) 59.8 %; Potassium 4.1 mmol/L (3.5-5.1)
[2020-08-11 06:25] LABS: Albumin Globulin Ratio 0.8 (0.9-2); Bilirubin,Total 0.6 mg/dl (0.2-1); Globulin 3.2 gm/dl (2.5-4.0); Total Protein 5.9 gm/dl (6.4-8.2)
[2020-08-11] MEDS: FLUTICASONE/VILANTEROL 100/25MCG 14 PUFFS/INHALER INH SCH (09:01)
[2020-08-11] MEDS: FERROUS SULFATE 325 MG TAB PO SCH (09:03)
[2020-08-11] MEDS: OXYBUTYNIN CHLORIDE XL 5 MG TABCR PO SCH (09:04)
[2020-08-11] MEDS: FOLIC ACID 1 MG TAB PO SCH (09:04)
[2020-08-11] MEDS: GABAPENTIN 400 MG CAP PO SCH (09:05)
[2020-08-11] MEDS: ADVANCED PROBIOTIC 1250 MG CAPSULE PO SCH (09:05)
[2020-08-11] MEDS: PSYLLIUM 58.6% POWDER PACKET PO SCH ×2 (09:06→09:32)
[2020-08-11] MEDS: METHOCARBAMOL 750 MG TABLET PO SCH ×2 (09:06→22:11)
[2020-08-11] MEDS: TOPIRAMATE 100 MG TAB PO SCH (09:06)
[2020-08-11] MEDS: ACYCLOVIR 400 MG TAB PO SCH ×2 (09:08→22:11)
[2020-08-11] MEDS: ENOXAPARIN INJ 40 MG/0.4 ML SYR SQ SCH (09:09)
[2020-08-11] MEDS: CETIRIZINE HCL 10 MG TABLET PO SCH (09:09)
[2020-08-11] MEDS: MEDICAL MARIJUANA INH SCH ×2 (09:11→22:11)
[2020-08-11] MEDS: METOPROLOL SUCC 50MG EXT REL TAB PO SCH (09:14)
[2020-08-11] MEDS: MUPIROCIN 2% OINT 22 GM TUBE EXT SCH ×2 (09:16→22:10)
[2020-08-11] MEDS ORDERED: diphenhydrAMINE 50 MG/ML VIAL IV STA (09:39)
[2020-08-11] MEDS: MoRPHine SULFATE 2 MG/ML CARP IV PRN ×2 (12:10→18:53)
--- NOTE | 2020-08-11 15:22 | Hospitalist Progress Note ---
Date of Service August 11, 2020 Assessment & Plan (1) Cellulitis of left lower extremity: Improving slowly, but still with significant pain/edema/erythema * Patient with recent trauma of LLE now with redness/pain/edema. Concern for cellulitis in setting of fever/chills/rigors/leukocytosis. * Patient with reported Prothrombin gene mutation, prior DVTs involving the LLE as well as active malignancy (squamous cell). * CT LE with no air or evidence of necrotizing fasciitis. * US Doppler NEGATIVE for DVT * Blood cultures pending -- NGTD. Follow * Continue Zosyn, Daptomycin. CK 58 * ID Consulted -- appreciate recommendations. Will not be seen until tomorrow * Continue PO Vanco + probiotic for hx cdiff * Oxycodone prn pain, added morphine IV for breakthrough but increased to Q4H and increased oxycodone to 1-2 tablets prn * Tylenol prn fever -- initial temp 39.4C on admission (typically runs low), afebrile since that time * Continue to monitor (2) Sepsis: * As above. Patient febrile, +leukocytosis, hypotensive in the ER. Of note, patient states that her SBP is typically in the 90's. She denies CP/SOB/Palpitations/dizziness. * Follow cultures as above * Zosyn/Daptomycin for skin/soft tissue infection (3) Asthma: * Patient with no cough/SOB or wheeze * Albuterol PRN * Fluticasone/Vilaterol * Stable (4) Squamous cell carcinoma of lung: * New primary, although does have hx of such as well. Discovered on PET scan ordered by Dr. 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 Pt with hx non-hodgkins lymphoma as well Dispo: awaiting ID consultation, BCx Admission and Anticipated Discharge Date Admission Date: August 09, 2020 Supervising Physician Co-Signing Physician Notes RHINA Supervision Note: I did not personally see or examine the patient today, but I verified all george points of RHINA Mirza's assessment and plan with the following exceptions/additions: Of note, patient with chronic microscopic hematuria and bilateral indwelling ureteral stents last exchanged in 03/2020. Will be due for exchange in 08/2020. Otherwise continue with treatment as above Follow urine cultures, blood cultures Subjective Patient evaluated this morning. Still quite painful to her RLE with any movement or touching. Morphine more effective at controlling her pain but frequency does not seem to be sufficient. Will change to Q4H after discussion and she will also use her medical marijuana as needed. In addition, discussed increasing her dose of oral pain medication to 2 tablets to see if any added benefit/longer lasting relief able to be achieved. She did have a breakout/rash across her chest/abdomen/back this morning that was red and reportedly itchy. Still present, although she notes extremely sensitive skin and she utilized supplies from the hospital without looking at the packaging and is in the distribution of wiping with the clothes. housekeeper and laundry assistant helped to wipe down with plain water and relief was achieved with regards to the itching with a dose of IV Benadryl this morning. Hopeful for ID consultation today, as was reportedly lost in transition to her moving to the medical floor last evening. ID backed up and contacted today but consult likely not able to be done until tomorrow. Will continue current IV abx and await their input. Denied fever, chills, cp, sob, abd pain, n/v at this time. Questions/concerns addressed. Review of Systems Review of Systems: All systems reviewed & are unremarkable except as noted in HPI & below Physical Exam Constitutional: + cachectic; no acute distress Eyes: + anicteric sclerae and PERRL Neck: trachea midline, no thyromegaly Respiratory: normal respiratory effort; no respiratory distress and no labored breathing Auscultation: + diminished lung sounds (bronchial breath sounds) Cardiovascular: Rate/Rhythm: regular rate and regular rhythm Heart Sounds: normal S1 and normal S2 Vessels: no JVD Gastrointestinal (Abdomen): normal bowel sounds, soft, nontender, no hepatosplenomegaly Musculoskeletal: Head/Neck/Chest: normocephalic and head atraumatic Skin: significant erythema/darkened area/cellulitis to RLE exquisitely tender to palpation within pen markings up to medial thigh and distal ankle NVI palpable pulses bilaterally healing scar below L knee. Site of recent trauma(sutures removed ~9 days ago). No drainage noted. Neurologic: PERRL, EOMI, accommodation nl, no face palsy, no dysarthria Psychiatric: Orientation: alert and oriented x 3 Lymphatic: no cervical or axillary lymphadenopathy Results & Data Results & Data ([facility]) Vital Signs (Past 12 Hours) Vital Signs Temp Pulse Pulse Resp BP BP Pulse Ox 08/11/20 14:59 36.6 C 73 16 93/56 L 100 08/11/20 13:34 36.6 C 73 19 99/62 L 100 08/11/20 12:10 104/63 08/11/20 09:12 83 94/60 L 08/11/20 07:37 36.9 C 93 H 17 105/65 97 08/11/20 05:19 36.8 C 103/63 Laboratory Results 08/11/20 08/11/20 08/11/20 Range/Units 05:19 05:19 05:19 WBC 6.58 (4.8-10.8) K/uL RBC 3.30 L (4.2-5.4) M/uL Hgb 10.7 L (12.0-16.0) g/dL Hct 33.8 L (37-47) % MCV 102.4 H (80-100) fL MCH 32.4 (25-34) pg MCHC 31.7 L (32-36) g/dL RDW Std Deviation 53.4 H (36.4-46.3) fL RDW Coeff of Irasema 14.2 (11.5-14.5) % Plt Count 94 L (130-400) K/uL MPV 10.5 H (7.4-10.4) fL Immature Gran % (Auto) 0.3 % Neut % (Auto) 59.8 % Lymph % (Auto) 27.5 % [place] % (Auto) 9.9 % Eos % (Auto) 2.3 % Baso % (Auto) 0.2 % Neut # (Auto) 3.94 (1.4-6.5) K/uL Lymph # (Auto) 1.81 (1.2-3.4) K/uL [place] # (Auto) 0.65 H (0.11-0.59) K/uL Eos # (Auto) 0.15 (0-0.5) K/uL Baso # (Auto) 0.01 (0-0.2) K/uL Immature Gran # (Auto) 0.02 (0.00-0.02) K/uL APTT 34.5 H (21.0-31.0) Seconds PTT Ratio 1.2 Sodium 142 (136-145) mmol/L Potassium 4.1 (3.5-5.1) mmol/L Chloride 116 H (98-107) mmol/L Carbon Dioxide 21 (21-32) mmol/L Anion Gap 5.0 (3-11) BUN 20 H (7-18) mg/dl Creatinine 1.60 H (0.6-1.2) mg/dl Est Cr Clr Drug Dosing 31.5 ml/min Est GFR ( Amer) 38.8 Est GFR (Non-Af Amer) 33.5 BUN/Creatinine Ratio 12.6 (10-20) Glucose 89 (70-99) mg/dl Calcium 7.6 L (8.5-10.1) mg/dl Magnesium 2.3 (1.8-2.4) mg/dl Total Bilirubin 0.6 (0.2-1) mg/dl AST 12 L (15-37) U/L ALT 43 (12-78) U/L Alkaline Phosphatase 64 (45-117) U/L Total Protein 5.9 L (6.4-8.2) gm/dl Albumin 2.7 L (3.4-5.0) gm/dl Globulin 3.2 (2.5-4.0) gm/dl Albumin/Globulin Ratio 0.8 L (0.9-2) PG Care Time/CCT Total # of Minutes Spent Total Time Spent with Patient: Total time spent is greater than 50% in coordination of care (as documented) at patient's floor/unit and/or counseling patient: Coding Level of Care Code 78488 Subseq Hosp Care Lvl 3 Diagnoses Cellulitis of left lower extremity L03.116 Sepsis A41.9 Sepsis acute organ dysfunction status: unspecified Sepsis type: sepsis due to unspecified organism Asthma J45.30 Asthma complication type: uncomplicated Asthma persistence: persistent Asthma severity: mild Squamous cell carcinoma of lung C34.90 Chronic kidney disease, stage III (moderate) N18.30 Chronic kidney disease stage 3 subtype: unspecified whether 3a or 3b Hypertension I10 Hypertension type: essential hypertension Prothrombin [id number] mutation D68.52 Chronic hypoxemic respiratory failure J96.11 DVT prophylaxis Z29.9 (1) Chronic kidney disease, stage III (moderate) Chronic kidney disease stage 3 subtype: unspecified whether 3a or 3b Qualified Code(s): N18.30 - Chronic kidney disease, stage 3 unspecified (2) Sepsis Sepsis acute organ dysfunction status: unspecified Sepsis type: sepsis due to unspecified organism Qualified Code(s): A41.9 - Sepsis, unspecified organism (3) Hypertension Hypertension type: essential hypertension Qualified Code(s): I10 - Essential (primary) hypertension (4) Asthma Asthma complication type: uncomplicated Asthma persistence: persistent Asthma severity: mild Qualified Code(s): J45.30 - Mild persistent asthma, uncomplicated
[2020-08-11] MEDS: DAPTOmycin 225 MG in SYRINGE 0 ML IV SCH (17:09)
[2020-08-11] MEDS ORDERED: SODIUM CHLORIDE 0.65% NA SOLN 45 ML (OCEAN) PRN (18:13)
[2020-08-11] MEDS: LACTATED RINGER'S 1,000 ML IV SCH (20:17)
[2020-08-11] MEDS: MIRABEGRON ER 25 MG TAB PO SCH (22:10)
[2020-08-11] MEDS: TOPIRAMATE 50 MG TAB PO SCH (22:11)
[2020-08-11] MEDS: QUEtiapine FUMARATE 25 MG TABLET PO SCH (22:11)
[2020-08-11] MEDS: clonazePAM 1 MG TAB PO SCH (22:14)
[2020-08-12 06:04] LABS: Hematocrit (blood only) 28.6 % (37-47); Hemoglobin 9.3 g/dL (12.0-16.0); Mean Corpuscular Hemoglobin 32.9 pg (25-34); Mean Corpuscular Hgb Conc 32.5 g/dL (32-36); Mean Corpuscular Volume 101.1 fL (80-100); RDW Coefficient of Variation 14.3 % (11.5-14.5); RDW Standard Deviation 52.6 fL (36.4-46.3); Red Blood Count 2.83 M/uL (4.2-5.4); White Blood Count 4.04 K/uL (4.8-10.8)
[2020-08-12] MEDS: oxyCODONE HCL IR 5 MG TAB (IMMEDIATE RELEASE) PO PRN ×4 (06:20→20:30)
[2020-08-12 06:21] LABS: Partial Thromboplastin Ratio 1.2; Partial Thromboplastin Time 33.4 Seconds (21.0-31.0)
[2020-08-12 06:42] LABS: Basophils # (auto) 0.01 K/uL (0-0.2); Basophils % (auto) 0.2 %; Eosinophils # (auto) 0.12 K/uL (0-0.5); Immature Granulocytes # (auto) 0.01 K/uL (0.00-0.02); Immature Granulocytes % (auto) 0.2 %; Lymphocytes # (auto) 1.36 K/uL (1.2-3.4); Lymphocytes % (auto) 33.7 %; Mean Platelet Volume 10.1 fL (7.4-10.4); Monocytes # (auto) 0.54 K/uL (0.11-0.59); Monocytes % (auto) 13.4 %; Neutrophils % (auto) 49.5 %; Platelet Count 90 K/uL (130-400)
[2020-08-12 06:47] LABS: BUN Creatinine Ratio 9.6 (10-20); Calcium 7.1 mg/dl (8.5-10.1); Creatinine Clr Calc Pharmacy 44.3 ml/min; Est GFR (African American) 58.4; Est GFR (Non-African American) 50.4; Magnesium 2.3 mg/dl (1.8-2.4); Phosphorus 1.6 mg/dl (2.5-4.9); Potassium 3.7 mmol/L (3.5-5.1)
[2020-08-12] MEDS: PIPERACILLIN/TAZOBACTAM 3.375 GM in DEXTROSE 5% 100 ML IV SCH ×2 (07:45→16:01)
[2020-08-12] MEDS ORDERED: POTASSIUM PHOS 3 MMOL/1 ML INFUSION IV STA (08:19)
[2020-08-12] MEDS: OXYBUTYNIN CHLORIDE XL 5 MG TABCR PO SCH (08:44)
[2020-08-12] MEDS: FLUTICASONE/VILANTEROL 100/25MCG 14 PUFFS/INHALER INH SCH (08:44)
[2020-08-12] MEDS: MUPIROCIN 2% OINT 22 GM TUBE EXT SCH ×2 (08:44→22:25)
[2020-08-12] MEDS: FERROUS SULFATE 325 MG TAB PO SCH (08:45)
[2020-08-12] MEDS ORDERED: POTASSIUM PHOSPHATE 15 MMOL in SODIUM CHLORIDE 0.9% 250 ML IV ONE (08:45)
[2020-08-12] MEDS: FOLIC ACID 1 MG TAB PO SCH (08:46)
[2020-08-12] MEDS: ADVANCED PROBIOTIC 1250 MG CAPSULE PO SCH (08:46)
[2020-08-12] MEDS: MEDICAL MARIJUANA INH SCH ×2 (08:46→22:25)
[2020-08-12] MEDS: GABAPENTIN 400 MG CAP PO SCH (08:46)
[2020-08-12] MEDS: TOPIRAMATE 100 MG TAB PO SCH (08:47)
[2020-08-12] MEDS: METHOCARBAMOL 750 MG TABLET PO SCH ×2 (08:47→22:26)
[2020-08-12] MEDS: ACYCLOVIR 400 MG TAB PO SCH ×2 (08:47→22:26)
[2020-08-12] MEDS: CETIRIZINE HCL 10 MG TABLET PO SCH (08:48)
[2020-08-12] MEDS: ENOXAPARIN INJ 40 MG/0.4 ML SYR SQ SCH (08:48)
[2020-08-12] MEDS: METOPROLOL SUCC 50MG EXT REL TAB PO SCH ×2 (08:50→10:37)
[2020-08-12] MEDS: PSYLLIUM 58.6% POWDER PACKET PO SCH (09:02)
--- NOTE | 2020-08-12 10:01 | Hospitalist Progress Note ---
Date of Service August 12, 2020 Assessment & Plan (1) Cellulitis of left lower extremity: On admit, patient with recent trauma of LLE now with redness/pain/edema. Concern for cellulitis in setting of fever/chills/rigors/leukocytosis. Patient with reported Prothrombin gene mutation, prior DVTs involving the LLE as well as active malignancy (squamous cell). Continues to improving, slowly. Still with significant pain/edema/erythema * CT LE with no air or evidence of necrotizing fasciitis. * US Doppler NEGATIVE for DVT * On Zosyn, Daptomycin since admission. * Patient with contact dermatitis vs drug reaction with rash to chest/abd/back. Patient with very sensitive skin and has issues without her home soaps/detergents/linens and had not gotten soap used washed off this morning after used) * Benadryl IV (once 08/11 and again 08/12). Will continue prn although patient states improvement of itching since yesterday. * ID Consulted -- appreciate recommendations --> will discontinue Zosyn at this time and continue Daptomycin for next 48 hours alone. If improved on gram + coverage, consider switching to PO linezolid (as long as no drug interactions) at discharge for total duration 14 days. Then, patient to resume her usual immunosuppressive therapy with doxy/keflex * Continue PO Vanco + probiotic for hx cdiff * Oxycodone prn pain, added morphine IV for breakthrough but increased to Q4H and increased oxycodone to 1-2 tablets prn * Tylenol prn fever -- initial temp 39.4C on admission (typically runs low), afebrile since that time * Blood cultures pending -- NGTD. Follow * Continue to monitor (2) Sepsis: * As above. Patient febrile, +leukocytosis, hypotensive in the ER. Of note, patient states that her SBP is typically in the 90's. She denies CP/SOB/Palpitations/dizziness. * Follow cultures as above * Zosyn/Daptomycin for skin/soft tissue infection (3) Asthma: * Patient with no cough/SOB or wheeze * Albuterol PRN * Fluticasone/Vilaterol * Stable (4) Squamous cell carcinoma of lung: * New primary, although does have hx of such as well. Discovered on PET scan ordered by Dr. Piedra and had biopsy in June * Patient to receive XRT, had markings placed day prior to admission * Outpatient followup as scheduled (5) Chronic kidney disease, stage III (moderate): * BUN=22, Cr=1.5 on admission * Gentle IVF with LR --> d/c'd now that Cr 1.14 and patient taking plenty PO * Avoid nephrotoxic agents * Renal dosing where needed * Monitor BUN/Cr/electrolytes and UOP * BMP in AM * Of note, patient with chronic microscopic hematuria and bilateral indwelling ureteral stents last exchanged in 03/2020. Will be due for exchange in 08/2020. (6) Hypertension: * Typically runs low * Continue home metoprolol -- changed hold parameters to give unless SBP <90 as patient asymptomatic with SBP in 90s * BP 97/61 * Continue to monitor (7) Prothrombin [id number] mutation: * On Lovenox SQ 40mg daily (8) Chronic hypoxemic respiratory failure: * On chronic O2 2L via NC * Stable * Continue home medications Anxiety/Depression -- Has been trying to get into outpt provider -- Stable currently -- Continue klonopin, seroquel Migraine --Stable --Continue topamax 100mg QAM, 200mg QPM Recurrent c.diff --Continue oral vancomycin (9) Hypophosphatemia: * Phos checked given above -- low at 1.6 * Ordered 15mmol Kphos IV x 1 * Repeat in AM (10) DVT prophylaxis: * On Lovenox outpt -- continue * Platelets low at 90k although always low. Pt with hx non-hodgkins lymphoma as well Dispo: continue to monitor response on Daptomycin alone. If improved over next 48 hours on this agent alone, can consider oral Linezolid but will need CM to check $. Admission and Anticipated Discharge Date Admission Date: August 09, 2020 Supervising Physician Co-Signing Physician Notes RHINA Supervision Note: I did not personally see or examine the patient today, but I verified all george points of RHINA Mirza's assessment and plan with the following exceptions/additions: None Subjective Patient evaluated this morning. Pain better controlled with increased oral pain medications but she states she has not been offered the morphine. Agreed to re-address with nursing to make sure if not controlled that they offer this medication. Redness/swelling and pain minimally improved. Did have baby soap used this morning and did not get it washed off. Continued issue with itchiness and utilizing benadryl. Discussed stopping one of the abx as this may be contributing but will await their input prior to switching around multiple times given it is improving. Eating/drinking without difficulty. Did have a liquid BM this morning and needed help getting cleaned up as she was not able to get unhooked fast enough to make it to the restroom. No further BM. No fever, chill, cp, sob, abd pain, n/v at this time. Review of Systems Review of Systems: All systems reviewed & are unremarkable except as noted in HPI & below Physical Exam Constitutional: + cachectic; no acute distress Eyes: + anicteric sclerae and PERRL Neck: trachea midline, no thyromegaly Respiratory: normal respiratory effort; no respiratory distress and no labored breathing Auscultation: + diminished lung sounds (bronchial breath sounds) Cardiovascular: Rate/Rhythm: regular rate and regular rhythm Heart Sounds: normal S1 and normal S2 Vessels: no JVD Gastrointestinal (Abdomen): normal bowel sounds, soft, nontender, no hepatosplenomegaly Musculoskeletal: Head/Neck/Chest: normocephalic and head atraumatic Skin: diffuse rash to back, improved to front of chest, minimal R thigh LLE cellulitis improved -- decreased tenderness to palpation but still exquisitely tender. receding from proximal thigh markings as well as distal leg healing laceration to below knee Neurologic: PERRL, EOMI, accommodation nl, no face palsy, no dysarthria Psychiatric: Orientation: alert and oriented x 3 Lymphatic: no cervical or axillary lymphadenopathy Results & Data Results & Data ([facility]) Vital Signs (Past 12 Hours) Vital Signs Temp Pulse Resp BP Pulse Ox 08/12/20 08:50 89 97/61 L 08/12/20 06:28 36.3 C L 76 16 108/67 100 08/11/20 22:30 36.5 C 66 16 114/62 100 Laboratory Results 08/12/20 08/12/20 08/12/20 Range/Units 05:25 05:25 05:25 WBC 4.04 L (4.8-10.8) K/uL RBC 2.83 L (4.2-5.4) M/uL Hgb 9.3 L (12.0-16.0) g/dL Hct 28.6 L (37-47) % MCV 101.1 H (80-100) fL MCH 32.9 (25-34) pg MCHC 32.5 (32-36) g/dL RDW Std Deviation 52.6 H (36.4-46.3) fL RDW Coeff of Irasema 14.3 (11.5-14.5) % Plt Count 90 L (130-400) K/uL MPV 10.1 (7.4-10.4) fL Immature Gran % (Auto) 0.2 % Neut % (Auto) 49.5 % Lymph % (Auto) 33.7 % [place] % (Auto) 13.4 % Eos % (Auto) 3.0 % Baso % (Auto) 0.2 % Neut # (Auto) 2.00 (1.4-6.5) K/uL Lymph # (Auto) 1.36 (1.2-3.4) K/uL [place] # (Auto) 0.54 (0.11-0.59) K/uL Eos # (Auto) 0.12 (0-0.5) K/uL Baso # (Auto) 0.01 (0-0.2) K/uL Immature Gran # (Auto) 0.01 (0.00-0.02) K/uL APTT 33.4 H (21.0-31.0) Seconds PTT Ratio 1.2 Sodium 144 (136-145) mmol/L Potassium 3.7 (3.5-5.1) mmol/L Chloride 117 H (98-107) mmol/L Carbon Dioxide 23 (21-32) mmol/L Anion Gap 4.0 (3-11) BUN 11 (7-18) mg/dl Creatinine 1.14 D (0.6-1.2) mg/dl Est Cr Clr Drug Dosing 44.3 ml/min Est GFR ( Amer) 58.4 Est GFR (Non-Af Amer) 50.4 BUN/Creatinine Ratio 9.6 L (10-20) Glucose 94 (70-99) mg/dl Calcium 7.1 L (8.5-10.1) mg/dl Phosphorus 1.6 L (2.5-4.9) mg/dl Magnesium 2.3 (1.8-2.4) mg/dl PG Care Time/CCT Total # of Minutes Spent Total Time Spent with Patient: Total time spent is greater than 50% in coordination of care (as documented) at patient's floor/unit and/or counseling patient: Coding Level of Care Code 27745 Subseq Hosp Care Lvl 3 Diagnoses Cellulitis of left lower extremity L03.116 Sepsis A41.9 Sepsis acute organ dysfunction status: unspecified Sepsis type: sepsis due to unspecified organism Asthma J45.30 Asthma complication type: uncomplicated Asthma persistence: persistent Asthma severity: mild Squamous cell carcinoma of lung C34.90 Chronic kidney disease, stage III (moderate) N18.30 Chronic kidney disease stage 3 subtype: unspecified whether 3a or 3b Hypertension I10 Hypertension type: essential hypertension Prothrombin [id number] mutation D68.52 Chronic hypoxemic respiratory failure J96.11 Hypophosphatemia E83.39 DVT prophylaxis Z29.9 (1) Chronic kidney disease, stage III (moderate) Chronic kidney disease stage 3 subtype: unspecified whether 3a or 3b Qualified Code(s): N18.30 - Chronic kidney disease, stage 3 unspecified (2) Sepsis Sepsis acute organ dysfunction status: unspecified Sepsis type: sepsis due to unspecified organism Qualified Code(s): A41.9 - Sepsis, unspecified organism (3) Hypertension Hypertension type: essential hypertension Qualified Code(s): I10 - Essential (primary) hypertension (4) Asthma Asthma complication type: uncomplicated Asthma persistence: persistent Asthma severity: mild Qualified Code(s): J45.30 - Mild persistent asthma, uncomplicated
[2020-08-12] MEDS: LACTATED RINGER'S 1,000 ML IV SCH (10:04)
[2020-08-12] MEDS ORDERED: diphenhydrAMINE 50 MG/ML VIAL IV STA (13:38)
[2020-08-12] MEDS: DAPTOmycin 225 MG in SYRINGE 0 ML IV SCH (17:51)
[2020-08-12] MEDS: clonazePAM 1 MG TAB PO SCH (22:25)
[2020-08-12] MEDS: MIRABEGRON ER 25 MG TAB PO SCH (22:26)
[2020-08-12] MEDS: TOPIRAMATE 50 MG TAB PO SCH (22:26)
[2020-08-12] MEDS: QUEtiapine FUMARATE 25 MG TABLET PO SCH (22:26)
[2020-08-12] MEDS: diphenhydrAMINE 50 MG/ML VIAL IV PRN (22:32)
[2020-08-12] MEDS: MoRPHine SULFATE 2 MG/ML CARP IV PRN (22:39)
[2020-08-13] MEDS: oxyCODONE HCL IR 5 MG TAB (IMMEDIATE RELEASE) PO PRN ×4 (06:30→20:27)
[2020-08-13 07:07] LABS: Hematocrit (blood only) 29.8 % (37-47); Hemoglobin 9.2 g/dL (12.0-16.0); Mean Corpuscular Hemoglobin 31.7 pg (25-34); Mean Corpuscular Hgb Conc 30.9 g/dL (32-36); Mean Corpuscular Volume 102.8 fL (80-100); RDW Coefficient of Variation 14.4 % (11.5-14.5); RDW Standard Deviation 54.1 fL (36.4-46.3); White Blood Count 3.04 K/uL (4.8-10.8)
[2020-08-13 07:16] LABS: Platelet Count 97 K/uL (130-400)
[2020-08-13 07:36] LABS: BUN Creatinine Ratio 8.2 (10-20); Calcium 7.3 mg/dl (8.5-10.1); Creatinine Clr Calc Pharmacy 48.1 ml/min; Est GFR (African American) 64.5; Est GFR (Non-African American) 55.7; Magnesium 2.3 mg/dl (1.8-2.4); Phosphorus 1.6 mg/dl (2.5-4.9); Potassium 4.1 mmol/L (3.5-5.1)
[2020-08-13] MEDS ORDERED: POTASSIUM PHOS 3 MMOL/1 ML INFUSION IV STA (08:37)
[2020-08-13] MEDS ORDERED: POTASSIUM PHOSPHATE 21 MMOL in SODIUM CHLORIDE 0.9% 500 ML IV ONE (08:45)
[2020-08-13] MEDS: FLUTICASONE/VILANTEROL 100/25MCG 14 PUFFS/INHALER INH SCH (09:04)
[2020-08-13] MEDS: OXYBUTYNIN CHLORIDE XL 5 MG TABCR PO SCH (09:05)
[2020-08-13] MEDS: FERROUS SULFATE 325 MG TAB PO SCH (09:05)
[2020-08-13] MEDS: MUPIROCIN 2% OINT 22 GM TUBE EXT SCH ×2 (09:05→22:04)
[2020-08-13] MEDS: ENOXAPARIN INJ 40 MG/0.4 ML SYR SQ SCH (09:06)
[2020-08-13] MEDS: FOLIC ACID 1 MG TAB PO SCH (09:06)
[2020-08-13] MEDS: MEDICAL MARIJUANA INH SCH ×2 (09:06→22:05)
[2020-08-13] MEDS: PSYLLIUM 58.6% POWDER PACKET PO SCH (09:07)
[2020-08-13] MEDS: GABAPENTIN 400 MG CAP PO SCH (09:07)
[2020-08-13] MEDS: ADVANCED PROBIOTIC 1250 MG CAPSULE PO SCH (09:07)
[2020-08-13] MEDS: METOPROLOL SUCC 50MG EXT REL TAB PO SCH (09:08)
[2020-08-13] MEDS: ACYCLOVIR 400 MG TAB PO SCH ×2 (09:08→22:06)
[2020-08-13] MEDS: METHOCARBAMOL 750 MG TABLET PO SCH ×2 (09:08→22:06)
[2020-08-13] MEDS: TOPIRAMATE 100 MG TAB PO SCH (09:08)
[2020-08-13] MEDS: CETIRIZINE HCL 10 MG TABLET PO SCH (09:09)
[2020-08-13] MEDS: POT PHOSPHATE MONOBASIC W/ SOD TAB PO SCH ×4 (09:16→22:05)
[2020-08-13] MEDS: VANCOMYCIN HCL 125 MG/2.5ML SOLN PO SCH (10:14)
[2020-08-13] MEDS: RASPBERRY SYRUP 5 ML UDP PO SCH (10:14)
[2020-08-13] MEDS: diphenhydrAMINE 50 MG/ML VIAL IV PRN ×2 (12:03→22:07)
--- NOTE | 2020-08-13 16:18 | Hospitalist Progress Note ---
Date of Service August 13, 2020 Assessment & Plan (1) Cellulitis of left lower extremity: On admit, patient with recent trauma of LLE now with redness/pain/edema. Concern for cellulitis in setting of fever/chills/rigors/leukocytosis. Patient with reported Prothrombin gene mutation, prior DVTs involving the LLE as well as active malignancy (squamous cell). Continues to improve * CT LE with no air or evidence of necrotizing fasciitis. * US Doppler NEGATIVE for DVT * On Zosyn, Daptomycin on admission. * Patient with contact dermatitis vs drug reaction with rash to chest/abd/back. Patient with very sensitive skin and has issues without her home soaps/detergents/linens and had not gotten soap used washed off this morning after used) * Benadryl IV. Will continue prn although patient states improvement of itching since yesterday. * Continue PO Vanco + probiotic for hx cdiff * Oxycodone prn pain, added morphine IV for breakthrough but increased to Q4H and increased oxycodone to 1-2 tablets prn * Blood cultures pending -- NGTD. Follow * Tylenol prn fever -- initial temp 39.4C on admission (typically runs low), afebrile since that time * ID Consulted -- appreciate recommendations * --> will discontinue Zosyn at this time and continue Daptomycin for next 48 hours alone. If improved on gram + coverage, consider switching to PO linezolid (as long as no drug interactions) at discharge for total duration 14 days. Then, patient to resume her usual immunosuppressive therapy with doxy /keflex * Continue to monitor (2) Sepsis: * As above. Patient febrile, +leukocytosis, hypotensive in the ER. Of note, patient states that her SBP is typically in the 90's. She denies CP/SOB/Palpitations/dizziness. * Follow cultures as above * Dapto as above (3) Asthma: * Patient with no cough/SOB or wheeze * Albuterol PRN * Fluticasone/Vilaterol * Stable (4) Squamous cell carcinoma of lung: * New primary, although does have hx of such as well. Discovered on PET scan ordered by Dr. Piedra and had biopsy in June * Patient to receive XRT, had markings placed day prior to admission * Outpatient followup as scheduled (5) Chronic kidney disease, stage III (moderate): * BUN=22, Cr=1.5 on admission * Given IVF * Avoid nephrotoxic agents * Renal dosing where needed * Monitor BUN/Cr/electrolytes and UOP * D/c'd IVF 08/12 * Cr stable at 1 today * BMP in AM Of note, patient with chronic microscopic hematuria and bilateral indwelling ureteral stents last exchanged in 03/2020. Will be due for exchange in 08/2020 --> if remains inpatient through sunday could possibly be done during this admission. To contact Urology on Sunday if still inpatient. 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 Pt with hx non-hodgkins lymphoma as well Dispo: continue to monitor response on Daptomycin alone. If continues to improve over next 24 hours on this agent alone, can consider oral Linezolid but will need CM to check $. Admission and Anticipated Discharge Date Admission Date: August 09, 2020 Supervising Physician Co-Signing Physician Notes RHINA Supervision Note: I did not personally see or examine the patient today, but I verified all george points of RHINA Mirza's assessment and plan with the following exceptions/additions: None Subjective Pain better controlled. Rash/itchiness improved but has not gotten any further benadryl. Will ask nursing to admin. Edema/erythema improved slightly. Eating/drinking without difficulty. No further accidents/diarrhea as yesterday. Has been keeping up with oral intake. Continued stay on Dapto and monitoring response with possible PO option if insurance covered. Will check with CM No fever,chills, cp, sob, abd pain, n/v at this time. Review of Systems Review of Systems: All systems reviewed & are unremarkable except as noted in HPI & below Physical Exam Constitutional: + cachectic; no acute distress Eyes: + anicteric sclerae and PERRL Neck: trachea midline, no thyromegaly Respiratory: normal respiratory effort; no respiratory distress and no labored breathing Auscultation: + diminished lung sounds (bronchial breath sounds) Cardiovascular: Rate/Rhythm: regular rate and regular rhythm Heart Sounds: normal S1 and normal S2 Vessels: no JVD Gastrointestinal (Abdomen): normal bowel sounds, soft, nontender, no hepatosplenomegaly Musculoskeletal: Head/Neck/Chest: normocephalic and head atraumatic Skin: cellulitis of LLE improved, slowly and within markings Now with less edema/erythema but still significant exquisitely tender, but improved from past two days NVI pulses palpable Psychiatric: Orientation: alert and oriented x 3 Lymphatic: no cervical or axillary lymphadenopathy Results & Data Results & Data ([facility]) Vital Signs (Past 12 Hours) Vital Signs Temp Pulse Pulse Resp BP BP Pulse Ox 08/13/20 15:33 36.5 C 58 L 16 99/63 L 100 08/13/20 09:01 36.7 C 72 18 99/63 L 100 Laboratory Results 08/13/20 08/13/20 Range/Units 06:07 06:07 WBC 3.04 L (4.8-10.8) K/uL RBC 2.90 L (4.2-5.4) M/uL Hgb 9.2 L (12.0-16.0) g/dL Hct 29.8 L (37-47) % MCV 102.8 H (80-100) fL MCH 31.7 (25-34) pg MCHC 30.9 L (32-36) g/dL RDW Std Deviation 54.1 H (36.4-46.3) fL RDW Coeff of Irasema 14.4 (11.5-14.5) % Plt Count 97 L (130-400) K/uL MPV 10.0 (7.4-10.4) fL Sodium 144 (136-145) mmol/L Potassium 4.1 (3.5-5.1) mmol/L Chloride 118 H (98-107) mmol/L Carbon Dioxide 23 (21-32) mmol/L Anion Gap 3.0 (3-11) BUN 9 (7-18) mg/dl Creatinine 1.05 (0.6-1.2) mg/dl Est Cr Clr Drug Dosing 48.1 ml/min Est GFR ( Amer) 64.5 Est GFR (Non-Af Amer) 55.7 BUN/Creatinine Ratio 8.2 L (10-20) Glucose 89 (70-99) mg/dl Calcium 7.3 L (8.5-10.1) mg/dl Phosphorus 1.6 L (2.5-4.9) mg/dl Magnesium 2.3 (1.8-2.4) mg/dl PG Care Time/CCT Total # of Minutes Spent Total Time Spent with Patient: Total time spent is greater than 50% in coordination of care (as documented) at patient's floor/unit and/or counseling patient: Coding Level of Care Code 59080 Subseq Hosp Care Lvl 2 Diagnoses Cellulitis of left lower extremity L03.116 Sepsis A41.9 Sepsis acute organ dysfunction status: unspecified Sepsis type: sepsis due to unspecified organism Asthma J45.30 Asthma complication type: uncomplicated Asthma persistence: persistent Asthma severity: mild Squamous cell carcinoma of lung C34.90 Chronic kidney disease, stage III (moderate) N18.30 Chronic kidney disease stage 3 subtype: unspecified whether 3a or 3b Hypertension I10 Hypertension type: essential hypertension Prothrombin [id number] mutation D68.52 Chronic hypoxemic respiratory failure J96.11 Hypophosphatemia E83.39 DVT prophylaxis Z29.9 (1) Chronic kidney disease, stage III (moderate) Chronic kidney disease stage 3 subtype: unspecified whether 3a or 3b Qualified Code(s): N18.30 - Chronic kidney disease, stage 3 unspecified (2) Sepsis Sepsis acute organ dysfunction status: unspecified Sepsis type: sepsis due to unspecified organism Qualified Code(s): A41.9 - Sepsis, unspecified organism (3) Hypertension Hypertension type: essential hypertension Qualified Code(s): I10 - Essential (primary) hypertension (4) Asthma Asthma complication type: uncomplicated Asthma persistence: persistent Asthma severity: mild Qualified Code(s): J45.30 - Mild persistent asthma, uncomplicated
[2020-08-13] MEDS: DAPTOmycin 225 MG in SYRINGE 0 ML IV SCH (17:05)
[2020-08-13] MEDS: clonazePAM 1 MG TAB PO SCH (22:05)
[2020-08-13] MEDS: MIRABEGRON ER 25 MG TAB PO SCH (22:05)
[2020-08-13] MEDS: QUEtiapine FUMARATE 25 MG TABLET PO SCH (22:06)
[2020-08-13] MEDS: TOPIRAMATE 50 MG TAB PO SCH (22:06)
[2020-08-14 06:24] LABS: Hematocrit (blood only) 32.4 % (37-47); Hemoglobin 10.3 g/dL (12.0-16.0); Mean Corpuscular Hemoglobin 32.4 pg (25-34); Mean Corpuscular Hgb Conc 31.8 g/dL (32-36); Mean Corpuscular Volume 101.9 fL (80-100); Platelet Count 113 K/uL (130-400); RDW Coefficient of Variation 14.2 % (11.5-14.5); RDW Standard Deviation 53.1 fL (36.4-46.3); Red Blood Count 3.18 M/uL (4.2-5.4); White Blood Count 4.09 K/uL (4.8-10.8)
[2020-08-14 06:51] LABS: BUN Creatinine Ratio 11.1 (10-20); Calcium 7.8 mg/dl (8.5-10.1); Creatinine Clr Calc Pharmacy 48.1 ml/min; Est GFR (African American) 64.5; Est GFR (Non-African American) 55.7; Potassium 4.4 mmol/L (3.5-5.1)
[2020-08-14] MEDS: ENOXAPARIN INJ 40 MG/0.4 ML SYR SQ SCH (08:27)
[2020-08-14] MEDS: PSYLLIUM 58.6% POWDER PACKET PO SCH (08:27)
[2020-08-14] MEDS: FERROUS SULFATE 325 MG TAB PO SCH (08:28)
[2020-08-14] MEDS: ADVANCED PROBIOTIC 1250 MG CAPSULE PO SCH (08:28)
[2020-08-14] MEDS: FLUTICASONE/VILANTEROL 100/25MCG 14 PUFFS/INHALER INH SCH (08:28)
[2020-08-14] MEDS: ACYCLOVIR 400 MG TAB PO SCH ×2 (08:28→23:04)
[2020-08-14] MEDS: METOPROLOL SUCC 50MG EXT REL TAB PO SCH (08:28)
[2020-08-14] MEDS: FOLIC ACID 1 MG TAB PO SCH (08:28)
[2020-08-14] MEDS: OXYBUTYNIN CHLORIDE XL 5 MG TABCR PO SCH (08:28)
[2020-08-14] MEDS: GABAPENTIN 400 MG CAP PO SCH (08:28)
[2020-08-14] MEDS: MUPIROCIN 2% OINT 22 GM TUBE EXT SCH ×2 (08:29→23:05)
[2020-08-14] MEDS: POT PHOSPHATE MONOBASIC W/ SOD TAB PO SCH ×4 (08:29→23:04)
[2020-08-14] MEDS: METHOCARBAMOL 750 MG TABLET PO SCH ×2 (08:29→23:04)
[2020-08-14] MEDS: TOPIRAMATE 100 MG TAB PO SCH (08:29)
[2020-08-14] MEDS: CETIRIZINE HCL 10 MG TABLET PO SCH (08:29)
[2020-08-14] MEDS: MEDICAL MARIJUANA INH SCH ×2 (08:29→23:05)
[2020-08-14] MEDS: oxyCODONE HCL IR 5 MG TAB (IMMEDIATE RELEASE) PO PRN ×4 (08:42→23:01)
--- NOTE | 2020-08-14 10:15 | Hospitalist Progress Note ---
Date of Service August 14, 2020 Assessment & Plan (1) Cellulitis of left lower extremity: On admit, patient with recent trauma of LLE now with redness/pain/edema. Concern for cellulitis in setting of fever/chills/rigors/leukocytosis. Patient with reported Prothrombin gene mutation, prior DVTs involving the LLE as well as active malignancy (squamous cell). Continues to improve * CT LE with no air or evidence of necrotizing fasciitis. * US Doppler NEGATIVE for DVT * On Zosyn, Daptomycin on admission. * Patient with contact dermatitis vs drug reaction with rash to chest/abd/back. Patient with very sensitive skin and has issues without her home soaps/detergents/linens and had not gotten soap used washed off this morning after used) * Benadryl IV. Will continue prn although patient states improvement of itching since yesterday. * Continue PO Vanco + probiotic for hx cdiff * Oxycodone prn pain, added morphine IV for breakthrough but increased to Q4H and increased oxycodone to 1-2 tablets prn * Blood cultures pending -- NGTD. Follow * Tylenol prn fever -- initial temp 39.4C on admission (typically runs low), afebrile since that time * ID Consulted -- appreciate recommendations * Continue Daptomycin alone for next 48 hours * Can consider transition to Linezolid PO for total duration 14 days at discharge. Of note, patient agreeable to abstain from use of rizatriptan while on this medication. She typically gets migraines about 1x/month but they vary. She has not had to take in a couple weeks. * Then, patient to resume her usual immunosuppressive therapy with doxy/keflex * Continue to monitor (2) Sepsis: * As above. Patient febrile, +leukocytosis, hypotensive in the ER. Of note, patient states that her SBP is typically in the 90's. She denies CP/SOB/Palpitations/dizziness. * Follow cultures as above * Dapto as above (3) Asthma: * Patient with no cough/SOB or wheeze * Albuterol PRN * Fluticasone/Vilaterol * Stable (4) Squamous cell carcinoma of lung: * New primary, although does have hx of such as well. Discovered on PET scan ordered by Dr. Piedra and had biopsy in June * Patient to receive XRT, had markings placed day prior to admission * Outpatient followup as scheduled (5) Chronic kidney disease, stage III (moderate): * BUN=22, Cr=1.5 on admission * Avoid nephrotoxic agents. Renal dosing where needed. Monitor BUN/Cr/electrolytes and UOP * Given IVF --> DC'd 08/12 * Cr stable at 1.05 * BMP in AM Of note, patient with chronic microscopic hematuria and bilateral indwelling ureteral stents last exchanged in 03/2020. Will be due for exchange in 08/2020 --> if remains inpatient through sunday could possibly be done during this admission. To contact Urology on Sunday if still inpatient. Would make NPO after MN 08/15 (6) Hypertension: * Typically runs low * Continue home metoprolol -- changed hold parameters to give unless SBP <90 as patient asymptomatic with SBP in 90s * BP 104/59 * Continue to monitor (7) Prothrombin [id number] mutation: * On Lovenox SQ 40mg daily (8) Chronic hypoxemic respiratory failure: * On chronic O2 2L via NC * Stable * Continue home medications (9) Hypophosphatemia: * Phos checked given above -- low at 1.6 * Ordered 15mmol Kphos IV x 1 and oral supplementation * RESOLVED -- phos 3.0 * Repeat in AM Anxiety/Depression -- Has been trying to get into outpt provider -- Stable currently -- Continue klonopin, seroquel Migraine --Stable --Continue topamax 100mg QAM, 200mg QPM --- See above as she will not be able to use maxaalt while on Linezolid Recurrent c.diff --Continue oral vancomycin (10) DVT prophylaxis: * On Lovenox outpt -- continue * Platelets low at 113k although always low. Pt with hx non-hodgkins lymphoma as well Dispo: continue to monitor response on Daptomycin while inpatient. Can consider oral Linezolid at discharge. CM osorio checked-- insurance to cover at cost of $12 Admission and Anticipated Discharge Date Admission Date: August 09, 2020 Supervising Physician Co-Signing Physician Notes PA Supervision Note: I did not personally see or examine the patient today, but I verified all george points of RHINA Mirza's assessment and plan with the following exceptions/additions: None Subjective Patient evaluated this afternoon. Pain controlled with ordered medications. No need for further IV at this time. Discussed interactions with her riztriptan and the PO Linezolid. She states her migraines have been less frequent but that they do vary. She seemed very interested in using Linezolid as option after discussion of cost but aware that she is not to use the riztriptan during this duration on Linezolid. Several BMs but not c/w her previous cdiff. 2 reported this morning. Rash improved. Got dose of benadryl last evening but nothing further. No fever, chills, cp, sob, abd pain, n/v/dysuria reported at this time. Review of Systems Review of Systems: All systems reviewed & are unremarkable except as noted in HPI & below Physical Exam Constitutional: + cachectic; no acute distress Eyes: + anicteric sclerae and PERRL Neck: trachea midline, no thyromegaly Respiratory: normal respiratory effort; no respiratory distress and no labored breathing Auscultation: + diminished lung sounds (bronchial breath sounds) 100% on 2L NC Cardiovascular: Rate/Rhythm: regular rate and regular rhythm Heart Sounds: normal S1 and normal S2 Vessels: no JVD Gastrointestinal (Abdomen): normal bowel sounds, soft, nontender, no hepatosplenomegaly Inspection/Auscultation: + abdomen distended Musculoskeletal: Head/Neck/Chest: normocephalic and head atraumatic Skin: LLE: erythema to LLE significantly improved to proximal thigh and distal ankle, although still significant to entire navarro up to knee laceration healing distal to knee tender to palpation NVI pulses palpable equal strength Rash: rash significantly improved to chest (almost resolved), improved to back non-tender Neurologic: PERRL, EOMI, accommodation nl, no face palsy, no dysarthria Psychiatric: Orientation: alert and oriented x 3 Lymphatic: no cervical or axillary lymphadenopathy Results & Data Results & Data ([facility]) Vital Signs (Past 12 Hours) Vital Signs Temp Pulse Resp BP BP Pulse Ox 08/14/20 06:54 36.8 C 76 16 105/66 100 08/14/20 00:12 36.7 C 71 16 100/62 100 Laboratory Results 08/14/20 08/14/20 Range/Units 05:24 05:24 WBC 4.09 L (4.8-10.8) K/uL RBC 3.18 L (4.2-5.4) M/uL Hgb 10.3 L (12.0-16.0) g/dL Hct 32.4 L (37-47) % MCV 101.9 H (80-100) fL MCH 32.4 (25-34) pg MCHC 31.8 L (32-36) g/dL RDW Std Deviation 53.1 H (36.4-46.3) fL RDW Coeff of Irasema 14.2 (11.5-14.5) % Plt Count 113 L (130-400) K/uL MPV 10.0 (7.4-10.4) fL Sodium 143 (136-145) mmol/L Potassium 4.4 (3.5-5.1) mmol/L Chloride 117 H (98-107) mmol/L Carbon Dioxide 22 (21-32) mmol/L Anion Gap 4.0 (3-11) BUN 12 (7-18) mg/dl Creatinine 1.05 (0.6-1.2) mg/dl Est Cr Clr Drug Dosing 48.1 ml/min Est GFR ( Amer) 64.5 Est GFR (Non-Af Amer) 55.7 BUN/Creatinine Ratio 11.1 (10-20) Glucose 89 (70-99) mg/dl Calcium 7.8 L (8.5-10.1) mg/dl Phosphorus 3.0 D (2.5-4.9) mg/dl PG Care Time/CCT Total # of Minutes Spent Total Time Spent with Patient: Total time spent is greater than 50% in coordination of care (as documented) at patient's floor/unit and/or counseling patient: Coding Level of Care Code 15800 Subseq Hosp Care Lvl 2 Diagnoses Cellulitis of left lower extremity L03.116 Sepsis A41.9 Sepsis acute organ dysfunction status: unspecified Sepsis type: sepsis due to unspecified organism Asthma J45.30 Asthma complication type: uncomplicated Asthma persistence: persistent Asthma severity: mild Squamous cell carcinoma of lung C34.90 Chronic kidney disease, stage III (moderate) N18.30 Chronic kidney disease stage 3 subtype: unspecified whether 3a or 3b Hypertension I10 Hypertension type: essential hypertension Prothrombin [id number] mutation D68.52 Chronic hypoxemic respiratory failure J96.11 Hypophosphatemia E83.39 DVT prophylaxis Z29.9 (1) Chronic kidney disease, stage III (moderate) Chronic kidney disease stage 3 subtype: unspecified whether 3a or 3b Qualified Code(s): N18.30 - Chronic kidney disease, stage 3 unspecified (2) Sepsis Sepsis acute organ dysfunction status: unspecified Sepsis type: sepsis due to unspecified organism Qualified Code(s): A41.9 - Sepsis, unspecified organism (3) Hypertension Hypertension type: essential hypertension Qualified Code(s): I10 - Essential (primary) hypertension (4) Asthma Asthma complication type: uncomplicated Asthma persistence: persistent Asthma severity: mild Qualified Code(s): J45.30 - Mild persistent asthma, uncomplicated
[2020-08-14] MEDS: DAPTOmycin 225 MG in SYRINGE 0 ML IV SCH (18:43)
[2020-08-14] MEDS: TOPIRAMATE 50 MG TAB PO SCH (23:04)
[2020-08-14] MEDS: clonazePAM 1 MG TAB PO SCH (23:04)
[2020-08-14] MEDS: MIRABEGRON ER 25 MG TAB PO SCH (23:04)
[2020-08-14] MEDS: QUEtiapine FUMARATE 25 MG TABLET PO SCH (23:04)
[2020-08-15 07:28] LABS: Hematocrit (blood only) 30.6 % (37-47); Hemoglobin 9.5 g/dL (12.0-16.0); Mean Corpuscular Hemoglobin 31.8 pg (25-34); Mean Corpuscular Volume 102.3 fL (80-100); Mean Platelet Volume 10.3 fL (7.4-10.4); Platelet Count 107 K/uL (130-400); RDW Coefficient of Variation 14.2 % (11.5-14.5); RDW Standard Deviation 52.9 fL (36.4-46.3); Red Blood Count 2.99 M/uL (4.2-5.4); White Blood Count 2.71 K/uL (4.8-10.8)
[2020-08-15 07:56] LABS: Calcium 7.6 mg/dl (8.5-10.1); Creatinine Clr Calc Pharmacy 63.9 ml/min; Est GFR (Non-African American) 78.6; Phosphorus 2.8 mg/dl (2.5-4.9); Potassium 4.3 mmol/L (3.5-5.1)
[2020-08-15] MEDS: MUPIROCIN 2% OINT 22 GM TUBE EXT SCH ×2 (08:25→22:28)
[2020-08-15] MEDS: OXYBUTYNIN CHLORIDE XL 5 MG TABCR PO SCH (08:26)
[2020-08-15] MEDS: FLUTICASONE/VILANTEROL 100/25MCG 14 PUFFS/INHALER INH SCH (08:26)
[2020-08-15] MEDS: FERROUS SULFATE 325 MG TAB PO SCH (08:26)
[2020-08-15] MEDS: FOLIC ACID 1 MG TAB PO SCH (08:26)
[2020-08-15] MEDS: ENOXAPARIN INJ 40 MG/0.4 ML SYR SQ SCH (08:27)
[2020-08-15] MEDS: PSYLLIUM 58.6% POWDER PACKET PO SCH (08:27)
[2020-08-15] MEDS: POT PHOSPHATE MONOBASIC W/ SOD TAB PO SCH ×4 (08:28→22:27)
[2020-08-15] MEDS: ACYCLOVIR 400 MG TAB PO SCH ×2 (08:28→22:27)
[2020-08-15] MEDS: TOPIRAMATE 100 MG TAB PO SCH (08:28)
[2020-08-15] MEDS: GABAPENTIN 400 MG CAP PO SCH (08:28)
[2020-08-15] MEDS: METHOCARBAMOL 750 MG TABLET PO SCH ×2 (08:29→22:27)
[2020-08-15] MEDS: CETIRIZINE HCL 10 MG TABLET PO SCH (08:29)
[2020-08-15] MEDS: ADVANCED PROBIOTIC 1250 MG CAPSULE PO SCH (08:29)
[2020-08-15] MEDS: MEDICAL MARIJUANA INH SCH ×2 (08:29→22:28)
[2020-08-15] MEDS: METOPROLOL SUCC 50MG EXT REL TAB PO SCH (08:31)
--- NOTE | 2020-08-15 09:47 | Hospitalist Progress Note ---
Date of Service August 15, 2020 Assessment & Plan (1) Cellulitis of left lower extremity: On admit, patient with recent trauma of LLE now with redness/pain/edema. Concern for cellulitis in setting of fever/chills/rigors/leukocytosis. Patient with reported Prothrombin gene mutation, prior DVTs involving the LLE as well as active malignancy (squamous cell). Continuing to improve * CT LE with no air or evidence of necrotizing fasciitis. * US Doppler NEGATIVE for DVT * On Zosyn, Daptomycin on admission. * Patient with contact dermatitis vs drug reaction with rash to chest/abd/back. Patient with very sensitive skin and has issues without her home soaps/detergents/linens and had not gotten soap used washed off this morning after used). Rash almost completely resolved since stopping the Zosyn and avoiding those soaps * Benadryl IV. Will continue prn although patient states improvement of itching * Continue PO Vanco + probiotic for hx cdiff * Oxycodone prn pain, added morphine IV for breakthrough but increased to Q4H and increased oxycodone to 1-2 tablets prn. Pain adequately controlled and has not needed Morphine IV for several days * Blood cultures NGTD - FINAL * Tylenol prn fever -- initial temp 39.4C on admission (typically runs low), afebrile since that time * ID Consulted -- appreciate recommendations * Continue Daptomycin alone while inpatient (on day 7 of therapy). Will order CPK, ESR, CRP in am with rest of labs as she has been on for a week. Patient with leukopenia since on daptomycin -- will order CBCD in AM * Consider transition to Linezolid PO for total duration 14 days at discharge. Then, patient to resume her usual immunosuppressive therapy with doxy/keflex one Linezolid complete * --> Of note, patient agreeable to abstain from use of rizatriptan while on this medication. She typically gets migraines about 1x/month but they vary. She has not had to take in a couple weeks. * Continue to monitor (2) Sepsis: * As above. Patient febrile, +leukocytosis, hypotensive in the ER. Of note, patient states that her SBP is typically in the 90's. She denies CP/SOB/Palpitations/dizziness. * Follow cultures as above * Dapto as above (3) Asthma: * Albuterol PRN * Fluticasone/Vilaterol * Stable * No wheezing on exam. 100% on usual 2L NC as she is on outpatient (4) Squamous cell carcinoma of lung: * New primary, although does have hx of such as well. Discovered on PET scan ordered by Dr. Piedra and had biopsy in June * Patient to receive XRT, had markings placed day prior to admission * Outpatient followup as scheduled (5) Chronic kidney disease, stage III (moderate): * BUN=22, Cr=1.5 on admission * Avoid nephrotoxic agents. Renal dosing where needed. Monitor BUN/Cr/electrolytes and UOP * Given IVF --> DC'd 08/12 * Cr stable at 0.79, better than it has been in the past years * BMP in AM Of note, patient with chronic microscopic hematuria and bilateral indwelling ureteral stents last exchanged in 03/2020. Will be due for exchange in 08/2020 --> if remains inpatient through sunday could possibly be done during this admission. 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 will continue for now and check again in AM to see if she will need continued at d/c Anxiety/Depression -- Has been trying to get into outpt provider -- Stable currently -- Continue klonopin, seroquel Migraine --Stable. None reported during current hospital stay. only usual headache controlled with tylenol --Continue topamax 100mg QAM, 200mg QPM --- See above as she will not be able to use maxaalt while on Linezolid Recurrent c.diff --Continue oral vancomycin (10) DVT prophylaxis: * On Lovenox outpt -- continue except hold for possible procedure tomorrow * Platelets low at 107k although always low. Pt with hx non-hodgkins lymphoma as well. Dispo: continue to monitor response on Daptomycin while inpatient. Can consider oral Linezolid at discharge. CM osorio checked-- insurance to cover at cost of $12. Would need additional 7 days of therapy and to resume usual doxy/keflex once completed. Made NPO after midnight for possible b/l ureteral stent exchange and consulted Urology (aware of pt being hospitalized) Admission and Anticipated Discharge Date Admission Date: August 09, 2020 Supervising Physician Co-Signing Physician Notes PA Supervision Note: I did not personally see or examine the patient today, but I verified all george points of RHINA Mirza's assessment and plan with the following exceptions/additions: None Subjective Patient evaluated this morning. Feeling better. Leg edema/erythema improved. Pain adequately controlled. No migraine. Patient hopeful for stent exchange tomorrow and transition to Linezolid PO for discharge tomorrow if cellulitis improved and stable for discharge. Rash much improved. None present to chest, back almost completely resolved. No fever, chills, chest pain, shortness of breath, abdominal pain, nausea or vomiting at this time. No BM today but is passing gas. No abdominal pain noted. Review of Systems Review of Systems: All systems reviewed & are unremarkable except as noted in HPI & below Physical Exam Constitutional: + cachectic, cooperative and comfortable; no acute distress Eyes: + anicteric sclerae and PERRL ENMT: mmm Neck: trachea midline, no thyromegaly Respiratory: normal respiratory effort and able to speak in complete sentences; no respiratory distress and no labored breathing Auscultation: + diminished lung sounds 100% on 2L NC Cardiovascular: Rate/Rhythm: regular rate and regular rhythm Heart Sounds: normal S1 and normal S2 Vessels: no JVD Gastrointestinal (Abdomen): normal bowel sounds, soft, nontender, no hepatos plenomegaly Inspection/Auscultation: + abdomen distended Musculoskeletal: Head/Neck/Chest: normocephalic and head atraumatic Skin: improvement of LLE cellulitis with specific regards to thigh and medial leg. within markings, less tender to palpation mild-moderate tenderness to navarro NVI pulses palpable and equal steri-strip to laceration distal to L kneecap. no drainage noted Neurologic: PERRL, EOMI, accommodation nl, no face palsy, no dysarthria Psychiatric: Orientation: alert and oriented x 3 Results & Data Results & Data ([facility]) Vital Signs (Past 12 Hours) Vital Signs Temp Pulse Resp BP BP Pulse Ox 08/15/20 08:31 75 116/71 08/15/20 06:56 36.5 C 82 16 117/69 100 08/14/20 23:02 36.6 C 58 L 16 111/58 L 100 Laboratory Results 08/15/20 08/15/20 Range/Units 06:14 06:14 WBC 2.71 L (4.8-10.8) K/uL RBC 2.99 L (4.2-5.4) M/uL Hgb 9.5 L (12.0-16.0) g/dL Hct 30.6 L (37-47) % MCV 102.3 H (80-100) fL MCH 31.8 (25-34) pg MCHC 31.0 L (32-36) g/dL RDW Std Deviation 52.9 H (36.4-46.3) fL RDW Coeff of Irasema 14.2 (11.5-14.5) % Plt Count 107 L (130-400) K/uL MPV 10.3 (7.4-10.4) fL Sodium 144 (136-145) mmol/L Potassium 4.3 (3.5-5.1) mmol/L Chloride 117 H (98-107) mmol/L Carbon Dioxide 23 (21-32) mmol/L Anion Gap 4.0 (3-11) BUN 10 (7-18) mg/dl Creatinine 0.79 (0.6-1.2) mg/dl Est Cr Clr Drug Dosing 63.9 ml/min Est GFR ( Amer) 91.0 Est GFR (Non-Af Amer) 78.6 BUN/Creatinine Ratio 13.0 (10-20) Glucose 84 (70-99) mg/dl Calcium 7.6 L (8.5-10.1) mg/dl Phosphorus 2.8 (2.5-4.9) mg/dl PG Care Time/CCT Total # of Minutes Spent Total Time Spent with Patient: Total time spent is greater than 50% in coordination of care (as documented) at patient's floor/unit and/or counseling patient: Coding Level of Care Code 95339 Subseq Hosp Care Lvl 2 Diagnoses Cellulitis of left lower extremity L03.116 Sepsis A41.9 Sepsis acute organ dysfunction status: unspecified Sepsis type: sepsis due to unspecified organism Asthma J45.30 Asthma complication type: uncomplicated Asthma persistence: persistent Asthma severity: mild Squamous cell carcinoma of lung C34.90 Chronic kidney disease, stage III (moderate) N18.30 Chronic kidney disease stage 3 subtype: unspecified whether 3a or 3b Hypertension I10 Hypertension type: essential hypertension Prothrombin [id number] mutation D68.52 Chronic hypoxemic respiratory failure J96.11 Hypophosphatemia E83.39 DVT prophylaxis Z29.9 (1) Chronic kidney disease, stage III (moderate) Chronic kidney disease stage 3 subtype: unspecified whether 3a or 3b Qualified Code(s): N18.30 - Chronic kidney disease, stage 3 unspecified (2) Sepsis Sepsis acute organ dysfunction status: unspecified Sepsis type: sepsis due to unspecified organism Qualified Code(s): A41.9 - Sepsis, unspecified organism (3) Hypertension Hypertension type: essential hypertension Qualified Code(s): I10 - Essential (primary) hypertension (4) Asthma Asthma complication type: uncomplicated Asthma persistence: persistent Asthma severity: mild Qualified Code(s): J45.30 - Mild persistent asthma, uncomplicated
[2020-08-15] MEDS: oxyCODONE HCL IR 5 MG TAB (IMMEDIATE RELEASE) PO PRN ×3 (10:21→22:35)
[2020-08-15] MEDS: DAPTOmycin 225 MG in SYRINGE 0 ML IV SCH ×2 (17:05→18:07)
[2020-08-15] MEDS: TOPIRAMATE 50 MG TAB PO SCH (22:27)
[2020-08-15] MEDS: QUEtiapine FUMARATE 25 MG TABLET PO SCH (22:27)
[2020-08-15] MEDS: MIRABEGRON ER 25 MG TAB PO SCH (22:27)
[2020-08-15] MEDS: clonazePAM 1 MG TAB PO SCH (22:28)
[2020-08-16 06:15] LABS: Basophils # (auto) 0.01 K/uL (0-0.2); Basophils % (auto) 0.3 %; Hematocrit (blood only) 33.6 % (37-47); Hemoglobin 10.9 g/dL (12.0-16.0); Immature Granulocytes # (auto) 0.01 K/uL (0.00-0.02); Immature Granulocytes % (auto) 0.3 %; Lymphocytes # (auto) 1.35 K/uL (1.2-3.4); Mean Corpuscular Hemoglobin 32.7 pg (25-34); Mean Corpuscular Hgb Conc 32.4 g/dL (32-36); Mean Corpuscular Volume 100.9 fL (80-100); Mean Platelet Volume 9.7 fL (7.4-10.4); Monocytes # (auto) 0.37 K/uL (0.11-0.59); Monocytes % (auto) 11.2 %; Neutrophils # (auto) 1.45 K/uL (1.4-6.5); Neutrophils % (auto) 44.2 %; Platelet Count 110 K/uL (130-400); RDW Coefficient of Variation 14.2 % (11.5-14.5); RDW Standard Deviation 51.4 fL (36.4-46.3); Red Blood Count 3.33 M/uL (4.2-5.4); White Blood Count 3.29 K/uL (4.8-10.8)
[2020-08-16 06:24] LABS: Partial Thromboplastin Ratio 1.1
[2020-08-16] MEDS: oxyCODONE HCL IR 5 MG TAB (IMMEDIATE RELEASE) PO PRN (06:28)
[2020-08-16 07:01] LABS: Albumin Globulin Ratio 0.8 (0.9-2); Albumin Level 2.9 gm/dl (3.4-5.0); BUN Creatinine Ratio 13.5 (10-20); Bilirubin,Total 0.4 mg/dl (0.2-1); C Reactive Protein 0.64 mg/dl (0-0.29); Calcium 8.1 mg/dl (8.5-10.1); Creatinine Clr Calc Pharmacy 60.1 ml/min; Est GFR (African American) 84.5; Est GFR (Non-African American) 72.9; Globulin 3.6 gm/dl (2.5-4.0); Potassium 4.4 mmol/L (3.5-5.1); Total Protein 6.5 gm/dl (6.4-8.2)
[2020-08-16] MEDS: MUPIROCIN 2% OINT 22 GM TUBE EXT SCH (08:52)
[2020-08-16] MEDS: METOPROLOL SUCC 50MG EXT REL TAB PO SCH (08:56)
[2020-08-16] MEDS: OXYBUTYNIN CHLORIDE XL 5 MG TABCR PO SCH (08:57)
[2020-08-16] MEDS: MEDICAL MARIJUANA INH SCH (08:57)
[2020-08-16] MEDS: GABAPENTIN 400 MG CAP PO SCH (08:57)
[2020-08-16] MEDS: FLUTICASONE/VILANTEROL 100/25MCG 14 PUFFS/INHALER INH SCH (09:02)
[2020-08-16] MEDS: PSYLLIUM 58.6% POWDER PACKET PO SCH (09:05)
[2020-08-16] MEDS: POT PHOSPHATE MONOBASIC W/ SOD TAB PO SCH ×2 (09:05→13:05)
[2020-08-16] MEDS: FOLIC ACID 1 MG TAB PO SCH (09:05)
[2020-08-16] MEDS: FERROUS SULFATE 325 MG TAB PO SCH ×2 (09:05→09:24)
[2020-08-16] MEDS: ACYCLOVIR 400 MG TAB PO SCH (09:06)
[2020-08-16] MEDS: ADVANCED PROBIOTIC 1250 MG CAPSULE PO SCH ×2 (09:06→09:24)
[2020-08-16] MEDS: METHOCARBAMOL 750 MG TABLET PO SCH (09:07)
[2020-08-16] MEDS: CETIRIZINE HCL 10 MG TABLET PO SCH (09:07)
[2020-08-16] MEDS: RASPBERRY SYRUP 5 ML UDP PO SCH (09:22)
[2020-08-16] MEDS: VANCOMYCIN HCL 125 MG/2.5ML SOLN PO SCH (09:22)
[2020-08-16] MEDS: TOPIRAMATE 100 MG TAB PO SCH (09:39)
--- NOTE | 2020-08-16 09:59 | Urology Consultation ---
Date of Consultation August 16, 2020 Assessment & Plan (1) Bilateral hydronephrosis: 65yo F with known history of bilateral hydronephrosis managed with chronic bilateral indwelling stents. -Reviewed plan of care with Dr. Marroquin -Afebrile, WBC and Creatinine are stable -No intervention planned today -Can likely schedule for b/l stent exchange on if still inpatient, otherwise will plan for outpatient follow-up -Will continue to monitor while inpatient History of Present Illness Attending Physician: James Thomas, History of Present Illness 65yo F with multiple medical issues admitted to [facility] on 08/09/20 with LLE Cellulitis and Sepsis. Urology consulted for possible b/l stent exchange. Patient has a known history of bilateral hydronephrosis managed with chronic bilateral indwelling stents. Last stent exchange was 04/01/[address] Marroquin. Plan was for next stent exchange in 5 months. Chart Review: Afebrile WBC 3.29 Cr 0.84 Hgb 10.9 ID consulted On PO/IV antibiotics Patient examined at bedside this am. Awake, sitting in bed on arrival. Denies any fever or chills. Denies nausea or vomiting. Denies hematuria/dysuria. Denies any back, flank, or suprapubic pain. Feels she is emptying her bladder completely. Reports some urinary frequency. No additional concerns today. Allergies Allergy/AdvReac Type Severity Reaction Status Date / Time bee venom protein (honey bee) Allergy Severe Difficulty Verified 08/09/20 23:03 Breathing Iodinated Contrast Media Allergy Intermediate Hives Verified 08/09/20 17:43 iodine Allergy Intermediate HIVES Verified 08/09/20 17:43 levofloxacin Allergy Intermediate numbness/we Verified 08/09/20 17:43 akness pregabalin Allergy Intermediate fever?/?cher Verified 08/09/20 17:43 h strawberry Allergy Intermediate HIVES Verified 08/09/20 17:43 Sulfa (Sulfonamide Allergy Intermediate RASH/HIVES Verified 08/09/20 17:43 Antibiotics) allopurinol Allergy Mild rash Verified 08/09/20 17:43 venlafaxine Allergy Unknown UNKNOWN Verified 08/09/20 17:43 gluten AdvReac Severe Celiac Dz Verified 08/09/20 17:43 = GI symptoms adhesive AdvReac Intermediate red torn Verified 08/09/20 17:43 skin propoxyphene AdvReac Intermediate PLASTIC TILE SETTER side Verified 08/09/20 17:43 effects Home Medications Home Medications Medication Instructions Recorded Confirmed Type Florajen3 1 cap PO QAM 07/16/18 08/09/20 History Prolia 60 mg SUBCUT Q6M 07/16/18 08/09/20 History butorphanol 1 spray INTRANASAL Q3H PRN 07/16/18 08/09/20 History cetirizine [Zyrtec] 10 mg PO QAM 07/16/18 08/09/20 History coenzyme Q10 [CoQ-10] 200 mg PO QAM 07/16/18 08/09/20 History folic acid 1 mg PO QAM 07/16/18 08/09/20 History magnesium oxide 400 mg PO QAM 07/16/18 08/09/20 History multivitamin 1 tab PO QAM 07/16/18 08/09/20 History triamcinolone acetonide 1 applic TOPICAL BID PRN 07/16/18 08/09/20 History vitamin B complex [B-Complex] 1 tab PO QAM 07/16/18 08/09/20 History calcium carbonate-vitamin D3 600 1 tab PO QPM 11/26/18 08/09/20 History mg (1,500 mg)-800 unit tablet cyanocobalamin (vitamin B-12) 1,000 mcg IM MONTHLY 02/10/19 08/09/20 History ferrous sulfate [iron] 325 mg PO QAM 02/10/19 08/09/20 History psyllium husk [Metamucil] 0.52 g PO QAM 08/28/19 08/09/20 History vitamin E 400 unit PO QAM 08/28/19 08/09/20 History budesonide-formoterol HFA 160 2 puff INHALATION BID #10.2 gm 09/15/19 08/09/20 Rx mcg-4.5 mcg/actuation aerosol inhaler albuterol sulfate 90 mcg/actuation 2 puff INHALATION QID PRN #8.5 gm 11/12/19 08/09/20 Rx aerosol inhaler ergocalciferol (vitamin D2) 1,250 50,000 units PO WEEKLY #12 cap 04/13/20 08/09/20 Rx mcg (50,000 unit) capsule gabapentin 400 mg capsule 400 mg PO QAM cap 04/26/20 08/09/20 History clonazepam 1 mg tablet 1 mg PO HS #30 tab 06/09/20 08/09/20 Rx metoprolol succinate 50 mg 50 mg PO QAM #30 tab 06/09/20 08/09/20 Rx tablet,extended release 24 hr potassium chloride 20 mEq 20 meq PO QAM #30 tab 06/09/20 08/09/20 Rx tablet,extended release enoxaparin 40 mg/0.4 mL See Rx Instructions SQ QAM 30 Days 06/10/20 08/09/20 Rx subcutaneous syringe #30 syr Medical Marijuana 1 dose PO BID 06/27/20 08/09/20 History tyczdncnax-sijkccfeufqqe-csap See Rx Instructions .ROUTE 06/27/20 08/09/20 History [Esgic] .COMPLEX PRN acyclovir 400 mg tablet 400 mg PO BID #60 tab 06/29/20 08/09/20 Rx methocarbamol [Robaxin-750] 750 mg PO BID 07/09/20 08/09/20 History quetiapine [Seroquel] 50 mg PO HS 07/09/20 08/09/20 History mirabegron 50 mg tablet,extended 50 mg PO HS #90 tab 07/13/20 08/09/20 Rx release 24 hr oxybutynin chloride 10 mg 10 mg PO QAM #90 tab 07/13/20 08/09/20 Rx tablet,extended release 24 hr mupirocin 2 % topical ointment 1 applic TOPICAL BID 14 Days #15 g 08/02/20 08/09/20 Rx cephalexin 500 mg capsule 500 mg PO BID cap 08/05/20 08/09/20 History doxycycline hyclate 100 mg capsule 100 mg PO BID cap 08/05/20 08/09/20 History vancomycin 125 mg capsule 125 mg PO 2XWK cap 08/05/20 08/09/20 History topiramate 100 mg tablet 100 mg PO .COMPLEX #90 tab 08/06/20 08/09/20 Rx linezolid 600 mg PO BID #14 tab 08/16/20 Rx sod phos di, mono-K phos mono 1 tab PO QID #28 tab 08/16/20 Rx [Phospha 250 Neutral] Patient History Medical History Abnormal PET of right lung Acute UTI Anemia Asthma Celiac disease History of Hep C 2013 Cellulitis RECURRENT B/L LE - ON PROPHYLACTIC ABX (FOLLOWS W/ DR. BAUM). CURRENTLY NOT ACTIVE. BUT IF STOPS ABX FLARES UP Chest pain Chronic back pain Chronic hypoxemic respiratory failure Chronic kidney disease STAGE III Chronic obstructive pulmonary disease EMPHYSEMA ON O2 2L CONTINUOUS Chronic venous stasis WITH DERMATITIS AND RECURRENT CELLULITIS Cirrhosis COPD (chronic obstructive pulmonary disease) Heart palpitations Hx MRSA infection Hx of cancer of lung 2012> TREATED with radiation Hx of Clostridium difficile infection Hx of deep venous thrombosis Hx of hepatitis C 2003 - TREATED Hx of non-Hodgkin's lymphoma Hydronephrosis B/L CHRONIC HYDRONEPHROSIS REQUIRING ROUTINE STENT EXCHANGES Insomnia Lung cancer Lung nodule Malignant neoplasm of lower lobe, right bronchus or lung Medical marijuana use Migraine Mood disorder Near syncope On home oxygen therapy 2L continuous Osteoporosis Poor historian Primary hypercoagulable state 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 follows Dr. Pagan Thrombocytopenia CHRONIC Urge and stress incontinence Venous stasis Surgical History H/O bursectomy RIGHT KNEE History of bone marrow biopsy History of bronchoscopy History of carpal tunnel release LEFT History of cystoscopy most recent 10/27/2019 [place] Cystoscopy, Bilateral Retrograde, Bilateral Stent Exchange, Injection of Urethral Bulking Agent History of esophagogastroduodenoscopy (EGD) History of liver biopsy History of ureter stent MULTIPLE Hx of bladder repair surgery FOR PROLAPSE Hx of colonoscopy Hx of tonsillectomy Hx of tubal ligation Family History Unknown Heart disease Hypertension Mother Psoriasis Diabetes Social History Smoking Status: Former smoker Cigarettes Per Day: stopped february 2011; Second Hand Exposure: No; Hx Alcohol Use: No Hx Substance Use: Yes Last Used Substance: Just Prior to Arrival Last Used Substance Other:: this am Substance Use Type Other:: medical marijuana Preferred Language: Welsh Communication Ability: Effective Visual Impairment: No Limitations Hi Lo Driver Required: No Beliefs That Will Affect Care: None Current Living Situation: Family Current Living Situation Comment: son and DIL Feels Safe at Home: Yes Assistive Devices: Glasses and Oxygen - Continuous Review of Systems Constitutional: as per Subjective / HPI; no fever and no chills Eyes: no problem reported Ear, Nose, Mouth, Throat: no problem reported Cardiovascular: no chest pain and no dyspnea Gastrointestinal: as per Subjective / HPI Genitourinary: as per Subjective / HPI Musculoskeletal: as per Subjective / HPI Integumentary: as per Subjective / HPI Neurologic: no abnormal movements and no abnormal speech Psychiatric: no irritability and no confusion Allergy / Immunological: no lip swelling and no tongue swelling Physical Exam Constitutional: well developed and well nourished; no acute distress and not ill appearing Neck: normal visual inspection Respiratory: normal respiratory effort and able to speak in complete sentences Gastrointestinal (Abdomen): Inspection/Auscultation: abdomen normal to inspection Musculoskeletal: Head/Neck/Chest: normocephalic Skin: Warm and dry Neurologic: awake; not confused Psychiatric: Orientation: alert, oriented x 3 and cooperative Results & Data ([facility]) Vital Signs (Past 12 Hours) Vital Signs Temp Pulse Resp BP BP Pulse Ox 08/16/20 08:54 83 105/67 08/16/20 07:08 36.4 C L 72 16 107/65 99 08/15/20 23:33 36.6 C 64 16 109/69 100 PG Care Time/CCT Total # of Minutes Spent Total Time Spent with Patient: Total time spent is greater than 50% in coordination of care (as documented) at patient's floor/unit and/or counseling patient: Coding Level of Care Code 78582 Initial Inpt Care Lvl 3 Diagnoses Bilateral hydronephrosis N13.30
--- NOTE | 2020-08-16 10:56 | Discharge Summary ---
Date of Service August 16, 2020 Admission HPI Per Admitting Provider Rupali Duron is a pleasant 65yo female with multiple medical problems. Patient injured her LLE 3 weeks ago by bumping into the latch of a cooler leading to a laceration. She was seen in the ER and received 19 sutures. Her sutures were removed 7 days ago without difficulty. The wound healed well with no bleeding/drainage/dehiscence. Patient with history of cellulitis - she is on Doxycycline and Keflex daily for maintenance. Also with history of LLE DVT many years ago. She typically wears compression stockings, however, has been unable to wear them for the last 3 weeks due to her injury. Today she developed pain in her LLE, 6-8/10 in severity. Also with redness and swelling of her LLE. She had chills/rigors and a fever to 102 degrees. No additional complaints. ER Course: Tylenol. Clindamycin. Daptomycin. NSS. Morphine. Zofran. Zosyn Principal Diagnosis Cellulitis Discharge Exam Constitutional WD/WN, vitals as above Respiratory normal respiratory effort, lungs clear to auscultation Cardiovascular RRR, no murmur, no edema Gastrointestinal (Abdomen) normal bowel sounds, soft, nontender, no hepatosplenomegaly Musculoskeletal no cyanosis or clubbing, extremities motor strength 5/5 Skin no rashes, warm and dry Neurologic moves all extremities and awake Psychiatric A+Ox3, euthymic affect Discharge Data Allergies Allergy/AdvReac Type Severity Reaction Status Date / Time bee venom protein (honey bee) Allergy Severe Difficulty Verified 08/09/20 23:03 Breathing Iodinated Contrast Media Allergy Intermediate Hives Verified 08/09/20 17:43 iodine Allergy Intermediate HIVES Verified 08/09/20 17:43 levofloxacin Allergy Intermediate numbness/we Verified 08/09/20 17:43 akness pregabalin Allergy Intermediate fever?/?cher Verified 08/09/20 17:43 h strawberry Allergy Intermediate HIVES Verified 08/09/20 17:43 Sulfa (Sulfonamide Allergy Intermediate RASH/HIVES Verified 08/09/20 17:43 Antibiotics) allopurinol Allergy Mild rash Verified 08/09/20 17:43 venlafaxine Allergy Unknown UNKNOWN Verified 08/09/20 17:43 gluten AdvReac Severe Celiac Dz Verified 08/09/20 17:43 = GI symptoms adhesive AdvReac Intermediate red torn Verified 08/09/20 17:43 skin propoxyphene AdvReac Intermediate [employer] side Verified 08/09/20 17:43 effects Consultations 08/09/20 20:05 ED Decision to Admit Stat 08/10/20 15:24 Consult Infectious Diseases Routine 08/16/20 08:00 Consult Urology Routine Ordered Studies 08/09/20 17:16 CT femur LT wo con Stat CT tib/fib LT wo con Stat 08/10/20 08:00 US venous doppler LE LT Stat Hospital Course (1) Cellulitis of left lower extremity: On admit, patient with recent trauma of LLE now with redness/pain/edema. Concern for cellulitis in setting of fever/chills/rigors/leukocytosis. Patient with reported Prothrombin gene mutation, prior DVTs involving the LLE as well as active malignancy (squamous cell). Cellulitis nearly resolved * CT LE with no air or evidence of necrotizing fasciitis. * US Doppler NEGATIVE for DVT * On Zosyn, Daptomycin on admission. * Patient with contact dermatitis vs drug reaction with rash to chest/abd/back. Patient with very sensitive skin and has issues without her home soaps/detergents/linens and had not gotten soap used washed off this morning after used). Rash almost completely resolved since stopping the Zosyn and avoiding those soaps * Continue PO Vanco + probiotic for hx cdiff * Blood cultures NGTD - FINAL * Tylenol prn fever -- initial temp 39.4C on admission (typically runs low), afebrile since that time * ID Consulted -- appreciate recommendations * Continue Daptomycin alone while inpatient (on day 7 of therapy). Checked CPK, ESR, CRP in am with rest of labs as she has been on for a week. Patient with leukopenia since on daptomycin -- continues to be about the same today at 3.2 9. Recheck on Sunday * Transition to Linezolid PO for total duration 14 days at discharge. Then, patient to resume her usual immunosuppressive therapy with doxy/keflex one Linezolid complete * --> Of note, patient agreeable to abstain from use of rizatriptan while on this medication. She typically gets migraines about 1x/month but they vary. She has not had to take in a couple weeks. Given handout on foods to avoid with tyramine while on linezolid (2) Sepsis: * As above. Patient febrile, +leukocytosis, hypotensive in the ER. Of note, patient states that her SBP is typically in the 90's. She denies CP/SOB/Palpitations/dizziness. * Follow cultures as above * abx as above (3) Asthma: * Albuterol PRN * Fluticasone/Vilaterol * Stable * No wheezing on exam. 100% on usual 2L NC as she is on outpatient (4) Squamous cell carcinoma of lung: * New primary, although does have hx of such as well. Discovered on PET scan ordered by Dr. Piedra and had biopsy in June * Patient to receive XRT, had markings placed day prior to admission * Outpatient followup as scheduled (5) Chronic kidney disease, stage III (moderate): * BUN=22, Cr=1.5 on admission * Avoid nephrotoxic agents. Renal dosing where needed. Monitor BUN/Cr/electr olytes and UOP * Given IVF --> DC'd 08/12 * Cr stable at 0.79, better than it has been in the past years * BMP in AM Of note, patient with chronic microscopic hematuria and bilateral indwelling ureteral stents last exchanged in 03/2020. Will be due for exchange in 08/2020 --> urology consulted and will follow up with patient outpatient (6) Hypertension: * Typically runs low * Continue home metoprolol -- changed hold parameters to give unless SBP <90 as patient asymptomatic with SBP in 90s and patient's BP improved with continued use * BP 116/71 * Continue to monitor (7) Prothrombin [id number] mutation: * On Lovenox SQ 40mg daily held for possible procedure today - resume for home (8) Chronic hypoxemic respiratory failure: * On chronic O2 2L via NC * Stable * Continue home medications (9) Hypophosphatemia: * Phos checked given above -- low at 1.6 * Ordered 15mmol Kphos IV x 2 and oral supplementation which has been continued * RESOLVED -- continues to remain stable on oral supplementation alone - will continue for a week and have her follow up with her pcp Anxiety/Depression -- Has been trying to get into outpt provider -- Stable currently -- Continue klonopin, seroquel Migraine --Stable. None reported during current hospital stay. only usual headache controlled with tylenol --Continue topamax 100mg QAM, 200mg QPM --- See above as she will not be able to use maxaalt while on Linezolid Recurrent c.diff --Continue oral vancomycin (10) DVT prophylaxis: * On Lovenox outpt -- continue except hold for possible procedure today - can resume for home * Platelets low at 107k although always low. Pt with hx non-hodgkins lymphoma as well. Total Time Total Time Spent Total Time Spent (In Minutes): greater than 30 minutes Discharge Plan Discharge Items Patient Disposition: Home - Self-Care Reason For Visit: LLE CELLULITIS, SEPSIS Discharge Diagnosis: LLE cellulitis Activity: Resume your previous activity Non-emergency contact: Primary Care Provider Call non-emergency contact if: you have any medication questions, your symptoms worsen, you have a fever and your wound has increased redness Follow-up/Referrals: Rashid Villegas MD [Primary Care Provider] - 08/23/20 10:30 am (follow up in one week APPT WITH GIOVANNY BYNUM) Luis Cervantes DO [Physician] - 08/18/20 11:20 am (Follow up - if you don't hear from the Urology office in the next couple of days please call to arrange stent removal ) Diet: Gluten Free Ambulatory Orders: Complete Blood Count no Diff (Routine) Timeframe: 20200820 Location: Determined by Patient Ordered By: Marly Lindo Comprehensive Metabolic Panel (Routine) Timeframe: 20200820 Location: Determined by Patient Ordered By: Marly Lindo C Reactive Protein (Routine) Timeframe: 20200820 Location: Determined by Patient Ordered By: Marly Lindo Erythrocyte Sedimentation Rate (Routine) Timeframe: 20200820 Location: Determined by Patient Ordered By: Marly Lindo Addtl Attending Provider Instructions: (1) Cellulitis of left lower extremity: You will go home with linezolid for your infection. You will need to hold your rizatriptan until you are finished with the linezolid to avoid interaction. Please refer to the enclosed information about diet as you will need to avoid high tyramine containing foods while completing your linezolid regimen. Continue oral vancomycin and take a probiotic to prevent secondary C diff infection while on linezolid. You should hold your home cephalexin and doxycycline until you are finished with the linezolid and then resume. (2) Ureteral stents Please call urology office this week to arrange stent exchange if you do not hear from them in the next couple of days (3)Hypophosphatemia: Your phosphorous level was low while you were here. I will have you continue phosphorous supplements for another week. You should increase the amount of phosphorous containing foods that you eat and follow with your primary care provider (4)Migraine Hold your Maxalt until you have completed your Linezolid as above (5) Recurrent c.diff --Continue oral vancomycin Pending Studies at Discharge: No Stand-Alone Forms: My [facility] Unique Microguides, Smoking Cessation Medications and DC Order Prescriptions: New linezolid 600 mg tablet 600 mg PO BID Qty: 14 RF: 0 Phospha 250 Neutral 250 mg Tablet 1 tab PO QID Qty: 28 RF: 0 Continued cephalexin [Keflex] 500 mg capsule 500 mg PO BID RF: 0 doxycycline hyclate 100 mg capsule 100 mg PO BID RF: 0 vancomycin 125 mg capsule 125 mg PO 2XWK RF: 0 calcium carbonate-vitamin D3 [Caltrate with Vitamin D3] 600 mg(1,500mg) -800 unit tablet 1 tab PO QPM RF: 0 Symbicort 160-4.5 mcg/actuation HFA aerosol inhaler 2 puff INHALATION BID Qty: 10.2 RF: 11 ergocalciferol (vitamin D2) 1,250 mcg (50,000 unit) capsule 50,000 units PO WEEKLY Qty: 12 RF: 1 clonazepam [Klonopin] 1 mg tablet 1 mg PO HS Qty: 30 RF: 2 metoprolol succinate 50 mg tablet extended release 24 hr 50 mg PO QAM Qty: 30 RF: 5 potassium chloride 20 mEq tablet extended release 20 meq PO QAM Qty: 30 RF: 5 enoxaparin [Lovenox] 40 mg/0.4 mL syringe See Rx Instructions SQ QAM 30 Days Qty: 30 RF: 6 acyclovir 400 mg tablet 400 mg PO BID Qty: 60 RF: 2 Myrbetriq 50 mg tablet extended release 24 hr 50 mg PO HS Qty: 90 RF: 3 oxybutynin chloride 10 mg tablet extended release 24hr 10 mg PO QAM Qty: 90 RF: 1 albuterol sulfate [ProAir HFA] 90 mcg/actuation HFA aerosol inhaler 2 puff INHALATION QID PRN (Reason: Wheezing) Qty: 8.5 RF: 5 topiramate [Topamax] 100 mg tablet 100 mg PO .COMPLEX Qty: 90 RF: 5 mupirocin 2 % ointment 1 applic topical BID 14 Days Qty: 15 RF: 2 gabapentin [Neurontin] 400 mg capsule 400 mg PO QAM RF: 0 cyanocobalamin (vitamin B-12) 1,000 mcg/mL Solution 1,000 mcg IM MONTHLY RF: 0 ferrous sulfate [iron] 325 mg (65 mg iron) Tablet 325 mg PO QAM RF: 0 vitamin E 400 unit Capsule 400 unit PO QAM RF: 0 psyllium husk [Metamucil] 0.52 gram Capsule 0.52 g PO QAM RF: 0 methocarbamol [Robaxin-750] 750 mg tablet 750 mg PO BID RF: 0 quetiapine [Seroquel] 50 mg tablet 50 mg PO HS RF: 0 multivitamin Tablet 1 tab PO QAM RF: 0 butorphanol 10 mg/mL [place],Non-Aerosol 1 spray INTRANASAL Q3H PRN (Reason: Migraine Headache) RF: 0 cetirizine [Zyrtec] 10 mg Tablet 10 mg PO QAM RF: 0 triamcinolone acetonide 0.025 % Cream 1 applic TOPICAL BID PRN (Reason: Skin Irritation) RF: 0 vitamin B complex [B-Complex] Tablet 1 tab PO QAM RF: 0 folic acid 1 mg Tablet 1 mg PO QAM RF: 0 coenzyme Q10 [CoQ-10] 100 mg Capsule 200 mg PO QAM RF: 0 Prolia 60 mg/mL Syringe 60 mg subcut Q6M RF: 0 Florajen3 460 mg (7.5-6- 1.5 bill. cell) Capsule 1 cap PO QAM RF: 0 magnesium oxide 400 mg Capsule 400 mg PO QAM RF: 0 Medical Marijuana 1 dose PO BID RF: 0 [id number] [Esgic] 50-325-40 mg tablet See Rx Instructions .ROUTE .COMPLEX PRN (Reason: HEADACHES) RF: 0 Discontinued rizatriptan [Maxalt-[employer]ICAL WORKER] 10 mg tablet,disintegrating 10 mg PO .COMPLEX Qty: 9 RF: 5 Discharge Orders: Discharge Order (Routine); Ordered 08/16/20 Ordered By: Marly Gomez/Other Patient Handouts: Linezolid tablets Admission Data Admit Date/Time: 08/09/20 21:14 Attending Provider: James Thomas Admit Provider: Sarah Kay Primary Care Provider: Rashid Villegas Other Providers: Sarah Kay ; Yasir Mcclelland ; Guy Aguayo ; Santiago Kay I. ; Jeffrey Starr II ; Oumou Palm ; Shahram Santiago ; Luis Cervantes Other Interventions: Discharge Summary Assessment (RN) Last Done: 08/16/20 10:44 Supervising Physician Co-Signing Physician Notes Patient seen and examined on the day of discharge. I agree with the discharge summary by Marly ANTHONY. I have reviewed the chart including labs, imaging and plans for discharge. patient doing great, redness and tenderness of leg resolved, eating well, no fever/chills - Lower extremity cellulitis: responded well to Daptomycin transition to Linezolid on discharge for MRSA coverage, will need 14 more days Coding Level of Care Code D/C Day Management >30 mins Diagnoses Cellulitis of left lower extremity L03.116 Sepsis A41.9 Sepsis acute organ dysfunction status: unspecified Sepsis type: sepsis due to unspecified organism Asthma J45.30 Asthma complication type: uncomplicated Asthma persistence: persistent Asthma severity: mild Squamous cell carcinoma of lung C34.90 Chronic kidney disease, stage III (moderate) N18.30 Chronic kidney disease stage 3 subtype: unspecified whether 3a or 3b Hypertension I10 Hypertension type: essential hypertension Prothrombin [id number] mutation D68.52 Chronic hypoxemic respiratory failure J96.11 Hypophosphatemia E83.39 DVT prophylaxis Z29.9
--- NOTE | 2020-08-27 13:42 | Coding Query ---
SEPSIS To promote full compliance with coding requirements relating to patient care, physician participation is requested in all cases of post doc fellowship uncertainty. Please assist us with the question(s) below: In responding to this query, please exercise your independent professional judgement. The fact that a question is asked does not imply that any particular answer is desired or expected. We appreciate your clarification on this issue. Throughout the medical record, you have clearly documented a localized infection and your patient has clinical evidence of a generalized sepsis or severe sepsis. It is documented the patient has sepsis and cellulitis; please clarify in your response below: Sepsis Specify associated condition/diagnosis cellulitis Specify Organism,if known____unknown Other, patient has: Please specify Thank you DAT Hutchins
== END 2020-08-16 16:23 | disposition home or self-care (01) | DRG 872 ==
LOC: ED 16:28 → 2W 21:14 → SUATTDRO 21:14 → 2W 22:36 → 3E 08-11 00:59

== ENCOUNTER 2021-01-03 18:11 | Observation (INO) ==
[2021-01-03] MEDS ORDERED: SODIUM CHLORIDE 0.9% 500 ML IV SCH (18:45)
[2021-01-03] MEDS ORDERED: SODIUM CHLORIDE 0.9% 1000ML 1,000 ML IV SCH (18:45)
--- NOTE | 2021-01-03 19:02 | Emergency Department Note ---
Impression & Plan Syncope and collapse, Acute confusion ED Provider Note INFORMANT: Patient ED PROVIDER(S): Fei Walker MD CHIEF COMPLAINT: Illness PLAN: Disposition: Admitted Condition: Good Outpatient prescription management: none Referral: None MEDICAL DECISION MAKING: Patient presented to emergency room complaining of illness. EMS reported a seizure-like episode however the patient was not unconscious for this. She was not responding. There was no post ictal period afterwards. She has noted urinary symptoms. Her laboratory testing did not reveal any significant problems with blood work however it looks like she has a urinary tract infection. CT scan of the head revealed an old CVA. Chest x-ray shows chronic finding. The patient's ECG showed a low voltage QRS and poor R wave progression but otherwise no significant findings. She was given IV Rocephin. He noted feeling generally weak and I did review her results with her as well as her son. The patient was observed in the ER while she was receiving her IV antibiotics. The patient and son did not feel comfortable with the patient going home and she will be alone tomorrow in light of her symptoms. I did discuss the risks and benefits with her but patient still feels uncomfortable with going home. Consultation was made with Dr. Kay of internal medicine. Patient was evaluated for further management. Triage Nursing notes reviewed and agree them. Additional history obtained from EMS and the patient's son Vital Signs: reviewed and remarkable for no significant abnormalities Differential diagnosis: Infection, dehydration, metabolic abnormality, hypo/hyperglycemia, electrolyte disturbance, anemia, hypoxia, cardiac sources, intracerebral event, toxicologic, neurologic, as well as other pathologies. Diagnostics interpreted by me: ECG: Twelve-lead ECG reveals a normal sinus rhythm at 64 bpm. Low voltage QRS. Poor R wave progression. No ST elevation or depression. No PVCs. Cardiac Monitoring: Cardiac monitoring ordered by me: The patient was placed on continuous cardiac monitoring and observed. It revealed a normal sinus rhythm at 62 beats per minute without ectopy or evidence of dysrhythmia. Imaging studies: Chest x-ray. Findings: A chest x-ray was performed and revealed no pneumothorax, effusion, infiltrate, pulmonary edema, free air under the diaphragm, or wide mediastinum. Impression: No acute disease. Chronic findings noted. Head CT revealed old left-sided CVA. No acute findings. Consultation(s): Malena Marques hospitalist HPI: The patient is a 65 year old female who presents to the Emergency Room with complaints of illness. This started today and is persisting throughout the day. The patient also notes the following associated symptoms, chills, syncope, rigors, and possible change in urination, weakness, back pain. The patient has found no relieving factors. Current pain is rated as 4/10. She has lung CA. Pt denies headache, fevers, chills, diaphoresis, visual changes, neck pain, chest pain, breathing difficulties, nausea, vomiting, abdominal pain, back pain, melena, hematochezia, numbness, lymphadenopathy, rash, or other complaints. ROS: See above HPI for pertinent positives & negatives. A total of 10 systems reviewed and were otherwise negative. PAST MEDICAL HISTORY:See Below , lung CA PAST SURGICAL HISTORY:See Below, FAMILY HISTORY:See Below SOCIAL HISTORY:See Below, lives with son HOME MEDICATIONS:See Below ALLERGIES:See Below VITALS:See Below PHYSICAL EXAMINATION: GENERAL: Awake, alert, uncomfortable-appearing, in no distress HENT: Normocephalic, atraumatic. Oropharynx unremarkable. EYES: Normal conjunctiva. Sclera non-icteric. NECK: Inspection normal. Non-tender. Supple. No nuchal rigidity. FROM. No masses. RESPIRATORY: Clear to auscultation. No wheezes. No rales. Normal respiratory e ffort. CARDIAC: Normal rate. Normal rhythm. No murmurs. No rubs. Extremities warm and well perfused. Pulses equal. No JVD. GI: Soft, non-distended. No tenderness to palpation. No rebound or guarding. No masses. RECTAL: Deferred. MUSCULOSKELETAL: Atraumatic. Chest examination reveals no tenderness. The back is symmetrical on inspection without obvious abnormality. There is no CVA tenderness to palpation. No joint edema. LOWER EXTREMITIES: Calves are equal size bilaterally and non-tender. No edema. No discoloration. NEURO: Normal sensorium. No sensory or motor deficits noted. SKIN: No rash or jaundice noted. Fei Walker MD Past Med/Surg History Medical History Abnormal PET of right lung Acute UTI resolved per pt Anemia Asthma rare res inh use Celiac disease Cellulitis RECURRENT B/L LE - ON PROPHYLACTIC ABX (FOLLOWS W/ DR. BAUM). ADMITTED TO [facility] 08/09-08/14 FOR CELLULITIS/SEPSIS 2/2 INFECTED LACERATION ON LE. Chronic back pain Chronic hypoxemic respiratory failure ON 2L O2 CONT. Chronic kidney disease STAGE III Chronic obstructive pulmonary disease EMPHYSEMA ON O2 2L CONTINUOUS Chronic venous stasis WITH DERMATITIS AND RECURRENT CELLULITIS Cirrhosis of liver Heart palpitations no issues with presently Hx MRSA infection several yrs ago Hx of cancer of lung 2012> TREATED with radiation Hx of Clostridium difficile infection on Vanco 2xw prophylactic Hx of deep venous thrombosis left leg > 1976 Hx of hepatitis C 2013 > resolved Hx of non-Hodgkin's lymphoma Hydronephrosis B/L CHRONIC HYDRONEPHROSIS REQUIRING ROUTINE STENT EXCHANGES Insomnia Lung cancer Lung nodule Malignant neoplasm of lower lobe, right bronchus or lung Medical marijuana use Migraine Mood disorder On home oxygen therapy 2L continuous Osteoporosis Poor historian due to hx stroke Primary hypercoagulable state 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 follows Dr. Pagan > Lovenox Thrombocytopenia CHRONIC Urge and stress incontinence Venous stasis Surgical History H/O bursectomy RIGHT KNEE History of bone marrow biopsy History of bronchoscopy History of carpal tunnel release LEFT History of cystoscopy most recent 10/27/2019 [place] Cystoscopy, Bilateral Retrograde, Bilateral Stent Exchange, Injection of Urethral Bulking Agent History of esophagogastroduodenoscopy (EGD) History of liver biopsy History of tooth extraction History of ureter stent MULTIPLE Hx of bladder repair surgery FOR PROLAPSE Hx of colonoscopy Hx of tonsillectomy Hx of tubal ligation Family History Unknown Heart disease Hypertension Mother Psoriasis Diabetes Social History Smoking Status: Unknown if ever smoked Cigarettes Per Day: stopped february 2011; Second Hand Exposure: Yes; Hx Alcohol Use: No Hx Substance Use: Yes Last Used Substance: Just Prior to Arrival Last Used Substance Other:: this am Substance Use Type Other:: medical marijuana card Preferred Language: Bolivian Communication Ability: Effective Visual Impairment: No Limitations Hearing Ability: Normal Field Technician Required: No Beliefs That Will Affect Care: None Current Living Situation: Family Current Living Situation Comment: son and DIL Feels Safe at Home: Yes Assistive Devices: Denture - Upper, Denture - Lower, Glasses and Oxygen - Continuous Allergies Allergies Allergy/AdvReac Type Severity Reaction Status Date / Time bee venom protein (honey bee) Allergy Severe Difficulty Verified 01/03/21 20:20 Breathing Iodinated Contrast Media Allergy Intermediate Hives Verified 01/03/21 20:20 iodine Allergy Intermediate HIVES Verified 01/03/21 20:20 levofloxacin Allergy Intermediate numbness/we Verified 01/03/21 20:20 akness pregabalin Allergy Intermediate fever?/?cher Verified 01/03/21 20:20 h strawberry Allergy Intermediate HIVES Verified 01/03/21 20:20 Sulfa (Sulfonamide Allergy Intermediate RASH/HIVES Verified 01/03/21 20:20 Antibiotics) allopurinol Allergy Mild rash Verified 01/03/21 20:20 venlafaxine Allergy Unknown UNKNOWN Verified 01/03/21 20:20 gluten AdvReac Severe Celiac Dz Verified 01/03/21 20:20 = GI symptoms adhesive AdvReac Intermediate red torn Verified 11/17/20 14:26 skin propoxyphene AdvReac Intermediate BODY TEAM MEMBER side Verified 11/17/20 14:26 effects Home Meds Home Medications Medication Instructions Recorded Confirmed Florajen3 1 cap PO QAM 07/16/18 01/03/21 butorphanol 1 spray INTRANASAL Q3H PRN 07/16/18 01/03/21 cetirizine [Zyrtec] 10 mg PO QAM 07/16/18 01/03/21 coenzyme Q10 [CoQ-10] 200 mg PO QAM 07/16/18 01/03/21 folic acid 1 mg PO QAM 07/16/18 01/03/21 magnesium oxide 400 mg PO QAM 07/16/18 01/03/21 multivitamin 1 tab PO QAM 07/16/18 01/03/21 triamcinolone acetonide 1 applic TOPICAL BID PRN 07/16/18 01/03/21 vitamin B complex [B-Complex] 1 tab PO QAM 07/16/18 01/03/21 calcium carbonate-vitamin D3 600 1 tab PO QPM 11/26/18 01/03/21 mg (1,500 mg)-800 unit tablet cyanocobalamin (vitamin B-12) 1,000 mcg IM MONTHLY 02/10/19 01/03/21 ferrous sulfate [iron] 325 mg PO QAM 02/10/19 01/03/21 psyllium husk [Metamucil] 0.52 g PO QAM 08/28/19 01/03/21 vitamin E 400 unit PO QAM 08/28/19 01/03/21 gabapentin 400 mg capsule 400 mg PO QAM cap 04/26/20 01/03/21 Medical Marijuana 1 dose PO BID 06/27/20 01/03/21 vancomycin 125 mg capsule 125 mg PO 2XWK cap 08/05/20 01/03/21 denosumab 60 mg/mL subcutaneous 60 mg SUBCUT .q 6 months ml 12/17/20 01/03/21 syringe clonazepam 1 mg PO HS 01/03/21 01/03/21 enoxaparin 40 mg SUBCUT DAILY 01/03/21 01/03/21 Previous Rx's Medication Instructions Recorded albuterol sulfate 90 mcg/actuation 2 puff INHALATION QID PRN #8.5 gm 11/12/19 aerosol inhaler potassium chloride 20 mEq 20 meq PO QAM #30 tab 06/09/20 tablet,extended release mirabegron 50 mg tablet,extended 50 mg PO HS #90 tab 07/13/20 release 24 hr oxybutynin chloride 10 mg 10 mg PO QAM #90 tab 07/13/20 tablet,extended release 24 hr budesonide-formoterol HFA 160 2 inh INHALATION BID #10.2 g 09/01/20 mcg-4.5 mcg/actuation aerosol inhaler cephalexin 500 mg capsule 500 mg PO QAM #30 cap 09/13/20 doxycycline hyclate 100 mg capsule 100 mg PO QAM #30 cap 09/13/20 ergocalciferol (vitamin D2) 1,250 50,000 unit PO WEEKLY #12 cap 09/15/20 mcg (50,000 unit) capsule [id number] See Rx Instructions .ROUTE 10/07/20 50 mg-325 mg-40 mg tablet .COMPLEX PRN #12 tab quetiapine 50 mg tablet 50 mg PO HS #30 tab 10/07/20 sertraline 50 mg tablet 50 mg PO DAILY #30 tab 11/11/20 metoprolol succinate 50 mg 50 mg PO QAM #30 tab 12/01/20 tablet,extended release 24 hr methocarbamol 750 mg tablet 750 mg PO BID 30 Days #60 tab 12/29/20 topiramate 100 mg tablet 100 mg PO .COMPLEX 30 Days #90 tab 12/29/20 acyclovir 400 mg tablet 400 mg PO BID #60 tab 12/30/20 Results & Data (ED) Vital Signs Vital Signs - 24 hr 01/03/21 18:22 01/03/21 18:58 01/03/21 19:00 Temperature 36.5 C Temperature Source Oral Pulse Rate 71 92 H Pulse Rate from SpO2 Sensor 69 Respiratory Rate 16 24 Respiratory Depth Normal Blood Pressure 114/60 97/75 L Blood Pressure Mean 78 82 Blood Pressure Position Lying Pulse Oximetry 100 97 100 Oxygen Delivery Method Nasal Cannula Room Air Oxygen Flow Rate 2 2 Sepsis Recent Fever Within 48 Hours No Sepsis New/Unexplained Change in Mental Status N/A Sepsis Action Taken by Nursing No Action Required 01/03/21 19:30 01/03/21 19:31 01/03/21 20:00 Temperature Temperature Source Pulse Rate 59 L 54 L 65 Pulse Rate from SpO2 Sensor 58 L 54 L 65 Respiratory Rate 17 12 12 Respiratory Depth Blood Pressure 112/52 L 111/58 L Blood Pressure Mean 72 75 Blood Pressure Position Pulse Oximetry 99 100 100 Oxygen Delivery Method Oxygen Flow Rate 2 2 Sepsis Recent Fever Within 48 Hours Sepsis New/Unexplained Change in Mental Status Sepsis Action Taken by Nursing 01/03/21 20:51 01/03/21 21:00 01/03/21 21:30 Temperature Temperature Source Pulse Rate 59 L 62 57 L Pulse Rate from SpO2 Sensor 60 62 57 L Respiratory Rate 16 14 13 Respiratory Depth Blood Pressure 108/56 L 107/53 L 108/58 L Blood Pressure Mean 73 71 74 Blood Pressure Position Pulse Oximetry 100 100 100 Oxygen Delivery Method Nasal Cannula Oxygen Flow Rate 2 2 2 Sepsis Recent Fever Within 48 Hours Sepsis New/Unexplained Change in Mental Status Sepsis Action Taken by Nursing 01/03/21 22:00 01/03/21 23:25 01/03/21 23:30 Temperature Temperature Source Pulse Rate 66 65 66 Pulse Rate from SpO2 Sensor 64 65 66 Respiratory Rate 17 14 12 Respiratory Depth Blood Pressure 103/56 L 104/53 L 95/53 L Blood Pressure Mean 71 70 67 Blood Pressure Position Pulse Oximetry 100 100 100 Oxygen Delivery Method Oxygen Flow Rate 2 Sepsis Recent Fever Within 48 Hours Sepsis New/Unexplained Change in Mental Status Sepsis Action Taken by Nursing 01/04/21 00:00 01/04/21 00:30 01/04/21 01:00 Temperature Temperature Source Pulse Rate 60 63 62 Pulse Rate from SpO2 Sensor 60 63 62 Respiratory Rate 16 20 16 Respiratory Depth Blood Pressure 104/56 L 105/56 L 111/59 L Blood Pressure Mean 72 72 76 Blood Pressure Position Pulse Oximetry 100 98 98 Oxygen Delivery Method Oxygen Flow Rate Sepsis Recent Fever Within 48 Hours Sepsis New/Unexplained Change in Mental Status Sepsis Action Taken by Nursing 01/04/21 01:30 Temperature Temperature Source Pulse Rate 58 L Pulse Rate from SpO2 Sensor 58 L Respiratory Rate 15 Respiratory Depth Blood Pressure 107/56 L Blood Pressure Mean 73 Blood Pressure Position Pulse Oximetry 100 Oxygen Delivery Method Oxygen Flow Rate Sepsis Recent Fever Within 48 Hours Sepsis New/Unexplained Change in Mental Status Sepsis Action Taken by Nursing Laboratory Data Result diagrams: 01/03/21 19:20 01/03/21 19:20 Lab Results 01/03/21 01/03/21 01/03/21 Range/Units 19:20 19:20 19:27 WBC 4.97 (4.8-10.8) K/uL RBC 3.32 L (4.2-5.4) M/uL Hgb 11.4 L (12.0-16.0) g/dL Hct 35.4 L (37-47) % MCV 106.6 H (80-100) fL MCH 34.3 H (25-34) pg MCHC 32.2 (32-36) g/dL RDW Std Deviation 54.4 H (36.4-46.3) fL RDW Coeff of Irasema 13.9 (11.5-14.5) % Plt Count 129 L (130-400) K/uL MPV 10.0 (7.4-10.4) fL Immature Gran % (Auto) 0.2 % Neut % (Auto) 53.9 % Lymph % (Auto) 26.4 % [place] % (Auto) 14.3 % Eos % (Auto) 5.0 % Baso % (Auto) 0.2 % Neut # (Auto) 2.68 (1.4-6.5) K/uL Lymph # (Auto) 1.31 (1.2-3.4) K/uL [place] # (Auto) 0.71 H (0.11-0.59) K/uL Eos # (Auto) 0.25 (0-0.5) K/uL Baso # (Auto) 0.01 (0-0.2) K/uL Immature Gran # (Auto) 0.01 (0.00-0.02) K/uL Sodium 142 (136-145) mmol/L Potassium 4.4 (3.5-5.1) mmol/L Chloride 113 H (98-107) mmol/L Carbon Dioxide 25 (21-32) mmol/L Anion Gap 4.0 (3-11) BUN 18 (7-18) mg/dl Creatinine 1.43 H (0.6-1.2) mg/dl Est Cr Clr Drug Dosing Not Reportable Est GFR ( Amer) 44.4 Est GFR (Non-Af Amer) 38.3 BUN/Creatinine Ratio 12.8 (10-20) Glucose 92 (70-99) mg/dl Calcium 9.4 (8.5-10.1) mg/dl Magnesium 2.2 (1.8-2.4) mg/dl Total Bilirubin 0.2 (0.2-1) mg/dl AST 26 (15-37) U/L ALT 38 (12-78) U/L Alkaline Phosphatase 106 (45-117) U/L Total Creatine Kinase 67 (26-192) U/L Troponin I < 0.015 (0-0.045) ng/ml Total Protein 7.2 (6.4-8.2) gm/dl Albumin 3.5 (3.4-5.0) gm/dl Globulin 3.7 (2.5-4.0) gm/dl Albumin/Globulin Ratio 0.9 (0.9-2) TSH 0.777 (0.300-4.500) uIu/ml Urine Color Yellow Urine Appearance Turbid A (Clear) Urine pH 6.0 (4.5-7.5) Ur Specific [place] 1.016 (1.000-1.030) Urine Protein 2+ H (Negative) Urine Glucose (UA) Negative (Negative) Urine Ketones Negative (Negative) Urine Blood 3+ H (Negative) Urine Nitrite Negative (Negative) Urine Bilirubin Negative (Negative) Urine Urobilinogen Negative (Negative) Ur Leukocyte Esterase 3+ H (Negative) Urine WBC (Auto) >30 H (0-5) /hpf Urine RBC (Auto) >30 H (0-4) /hpf U Hyaline Cast (Auto) 0 (0-5) /lpf U Epithel Cells (Auto) >30 H (0-5) /lpf Urine Bacteria (Auto) Negative (Negative) Urine Yeast Budding A (None Prsent) COVID-19 Eval Order SARS-CoV-2, RNA, NAAT (NEGATIVE) 01/03/21 01/03/21 Range/Units 19:33 19:33 WBC (4.8-10.8) K/uL RBC (4.2-5.4) M/uL Hgb (12.0-16.0) g/dL Hct (37-47) % MCV (80-100) fL MCH (25-34) pg MCHC (32-36) g/dL RDW Std Deviation (36.4-46.3) fL RDW Coeff of Irasema (11.5-14.5) % Plt Count (130-400) K/uL MPV (7.4-10.4) fL Immature Gran % (Auto) % Neut % (Auto) % Lymph % (Auto) % [place] % (Auto) % Eos % (Auto) % Baso % (Auto) % Neut # (Auto) (1.4-6.5) K/uL Lymph # (Auto) (1.2-3.4) K/uL [place] # (Auto) (0.11-0.59) K/uL Eos # (Auto) (0-0.5) K/uL Baso # (Auto) (0-0.2) K/uL Immature Gran # (Auto) (0.00-0.02) K/uL Sodium (136-145) mmol/L Potassium (3.5-5.1) mmol/L Chloride (98-107) mmol/L Carbon Dioxide (21-32) mmol/L Anion Gap (3-11) BUN (7-18) mg/dl Creatinine (0.6-1.2) mg/dl Est Cr Clr Drug Dosing Est GFR ( Amer) Est GFR (Non-Af Amer) BUN/Creatinine Ratio (10-20) Glucose (70-99) mg/dl Calcium (8.5-10.1) mg/dl Magnesium (1.8-2.4) mg/dl Total Bilirubin (0.2-1) mg/dl AST (15-37) U/L ALT (12-78) U/L Alkaline Phosphatase (45-117) U/L Total Creatine Kinase (26-192) U/L Troponin I (0-0.045) ng/ml Total Protein (6.4-8.2) gm/dl Albumin (3.4-5.0) gm/dl Globulin (2.5-4.0) gm/dl Albumin/Globulin Ratio (0.9-2) TSH (0.300-4.500) uIu/ml Urine Color Urine Appearance (Clear) Urine pH (4.5-7.5) Ur Specific [place] (1.000-1.030) Urine Protein (Negative) Urine Glucose (UA) (Negative) Urine Ketones (Negative) Urine Blood (Negative) Urine Nitrite (Negative) Urine Bilirubin (Negative) Urine Urobilinogen (Negative) Ur Leukocyte Esterase (Negative) Urine WBC (Auto) (0-5) /hpf Urine RBC (Auto) (0-4) /hpf U Hyaline Cast (Auto) (0-5) /lpf U Epithel Cells (Auto) (0-5) /lpf Urine Bacteria (Auto) (Negative) Urine Yeast (None Prsent) COVID-19 Eval Order Covid19 IDNow [facility] SARS-CoV-2, RNA, NAAT NEGATIVE (NEGATIVE) Administered Medications Sodium Chloride (Nss 1000ml) 1,000 mls @ 125 mls/hr IV .Q8H BIRDIE Stop: 01/04/21 02:44 Last Infusion: 01/03/21 22:04 Dose: 0 mls/hr Documented by: [id number] Admin: 01/03/21 20:10 Dose: 125 mls/hr Documented by: [id number] Discontinued Medications Sodium Chloride (Nss) 500 mls @ 999 mls/hr IV .Q31M BIRDIE Stop: 01/03/21 19:15 Last Infusion: 01/03/21 20:07 Dose: 0 mls/hr Documented by: [id number] Admin: 01/03/21 19:36 Dose: 999 mls/hr Documented by: [id number] Ceftriaxone Sodium (Rocephin) 1,000 mg in 50 mls @ 100 mls/hr IV NOW STA Stop: 01/03/21 22:08 Last Infusion: 01/03/21 22:31 Dose: 0 mls/hr Documented by: [id number] Admin: 01/03/21 22:01 Dose: 100 mls/hr Documented by: [id number] Discharge Plan Visit Data Chief Complaint: Illness ED Provider: Fei Walker Discharge Problem: Syncope and collapse, Acute confusion Forms Stand Alone Forms: My [facility] Prescriptions Prescriptions: No Action vancomycin 125 mg capsule 125 mg PO 2XWK RF: 0 Prolia 60 mg/mL syringe 60 mg subcut .q 6 months RF: 0 calcium carbonate-vitamin D3 [Caltrate with Vitamin D3] 600 mg(1,500mg) -800 unit tablet 1 tab PO QPM RF: 0 potassium chloride 20 mEq tablet extended release 20 meq PO QAM Qty: 30 RF: 5 Myrbetriq 50 mg tablet extended release 24 hr 50 mg PO HS Qty: 90 RF: 3 oxybutynin chloride 10 mg tablet extended release 24hr 10 mg PO QAM Qty: 90 RF: 1 budesonide-formoterol [Symbicort] 160-4.5 mcg/actuation HFA aerosol inhaler 2 inh inhalation BID Qty: 10.2 RF: 11 cephalexin [Keflex] 500 mg capsule 500 mg PO QAM Qty: 30 RF: 5 doxycycline hyclate 100 mg capsule 100 mg PO QAM Qty: 30 RF: 5 ergocalciferol (vitamin D2) 1,250 mcg (50,000 unit) capsule 50,000 unit PO WEEKLY Qty: 12 RF: 1 quetiapine [Seroquel] 50 mg tablet 50 mg PO HS Qty: 30 RF: 5 [id number] [Esgic] 50-325-40 mg tablet See Rx Instructions .ROUTE .COMPLEX PRN (Reason: HEADACHES) Qty: 12 RF: 0 sertraline 50 mg tablet 50 mg PO DAILY Qty: 30 RF: 5 metoprolol succinate 50 mg tablet extended release 24 hr 50 mg PO QAM Qty: 30 RF: 5 methocarbamol [Robaxin-750] 750 mg tablet 750 mg PO BID 30 Days Qty: 60 RF: 2 topiramate [Topamax] 100 mg tablet 100 mg PO .COMPLEX 30 Days Qty: 90 RF: 5 acyclovir 400 mg tablet 400 mg PO BID Qty: 60 RF: 1 albuterol sulfate [ProAir HFA] 90 mcg/actuation HFA aerosol inhaler 2 puff INHALATION QID PRN (Reason: Wheezing) Qty: 8.5 RF: 5 gabapentin [Neurontin] 400 mg capsule 400 mg PO QAM RF: 0 cyanocobalamin (vitamin B-12) 1,000 mcg/mL Solution 1,000 mcg IM MONTHLY RF: 0 ferrous sulfate [iron] 325 mg (65 mg iron) Tablet 325 mg PO QAM RF: 0 vitamin E 400 unit Capsule 400 unit PO QAM RF: 0 psyllium husk [Metamucil] 0.52 gram Capsule 0.52 g PO QAM RF: 0 multivitamin Tablet 1 tab PO QAM RF: 0 butorphanol 10 mg/mL [place],Non-Aerosol 1 spray INTRANASAL Q3H PRN (Reason: Migraine Headache) RF: 0 cetirizine [Zyrtec] 10 mg Tablet 10 mg PO QAM RF: 0 triamcinolone acetonide 0.025 % Cream 1 applic TOPICAL BID PRN (Reason: Skin Irritation) RF: 0 vitamin B complex [B-Complex] Tablet 1 tab PO QAM RF: 0 folic acid 1 mg Tablet 1 mg PO QAM RF: 0 coenzyme Q10 [CoQ-10] 100 mg Capsule 200 mg PO QAM RF: 0 [email or web address] 460 mg (7.5-6- 1.5 bill. cell) Capsule 1 cap PO QAM RF: 0 magnesium oxide 400 mg Capsule 400 mg PO QAM RF: 0 Medical Marijuana 1 dose PO BID RF: 0 enoxaparin 40 mg/0.4 mL syringe 40 mg subcut DAILY RF: 0 clonazepam 1 mg tablet 1 mg PO HS RF: 0
--- NOTE | 2021-01-03 19:21 | XRay Report ---
XR chest 1V portable CLINICAL HISTORY: weakness COMPARISON STUDY: 12/29/2020 FINDINGS: There is radiographic evidence of emphysema. There is a stable area of linear scarring with in the right mid to upper lung zone. There are old right-sided rib fractures. There are persistent in terstitial opacities the right lung base similar to the prior study.[ IMPRESSION: 1. Stable nonspecific interstitial opacities at the right lung base 2. Stable right upper lobe scarring 3. Old right-sided rib deformities 4. Emphysema ACT 112: Negative or not required by law. Electronically signed by: Octavio Penny M.D. 01/03/2021 7:20 PM
[2021-01-03 19:33] LABS: Basophils # (auto) 0.01 K/uL (0-0.2); Basophils % (auto) 0.2 %; Eosinophils # (auto) 0.25 K/uL (0-0.5); Hematocrit (blood only) 35.4 % (37-47); Hemoglobin 11.4 g/dL (12.0-16.0); Immature Granulocytes # (auto) 0.01 K/uL (0.00-0.02); Immature Granulocytes % (auto) 0.2 %; Lymphocytes # (auto) 1.31 K/uL (1.2-3.4); Lymphocytes % (auto) 26.4 %; Mean Corpuscular Hemoglobin 34.3 pg (25-34); Mean Corpuscular Hgb Conc 32.2 g/dL (32-36); Mean Corpuscular Volume 106.6 fL (80-100); Monocytes # (auto) 0.71 K/uL (0.11-0.59); Monocytes % (auto) 14.3 %; Neutrophils # (auto) 2.68 K/uL (1.4-6.5); Neutrophils % (auto) 53.9 %; Platelet Count 129 K/uL (130-400); RDW Coefficient of Variation 13.9 % (11.5-14.5); RDW Standard Deviation 54.4 fL (36.4-46.3); Red Blood Count 3.32 M/uL (4.2-5.4); White Blood Count 4.97 K/uL (4.8-10.8)
[2021-01-03 19:53] LABS: Alanine Aminotransferase 38 U/L (12-78); Albumin Level 3.5 gm/dl (3.4-5.0); Aspartate Aminotransferase 26 U/L (15-37); BUN Creatinine Ratio 12.8 (10-20); Blood Urea Nitrogen 18 mg/dl (7-18); Calcium 9.4 mg/dl (8.5-10.1); Carbon Dioxide 25 mmol/L (21-32); Chloride 113 mmol/L (98-107); Est GFR (African American) 44.4; Est GFR (Non-African American) 38.3; Glucose 92 mg/dl (70-99); Magnesium 2.2 mg/dl (1.8-2.4); Potassium 4.4 mmol/L (3.5-5.1); Sodium 142 mmol/L (136-145)
[2021-01-03 20:04] LABS: Albumin Globulin Ratio 0.9 (0.9-2); Alkaline Phosphatase 106 U/L (45-117); Bilirubin,Total 0.2 mg/dl (0.2-1); Creatine Kinase 67 U/L (26-192); Globulin 3.7 gm/dl (2.5-4.0); Thyroid Stimulating Hormone 0.777 uIu/ml (0.300-4.500); Total Protein 7.2 gm/dl (6.4-8.2); Troponin I < 0.015 ng/ml (0-0.045)
[2021-01-03 20:06] LABS: Appearance Urine Turbid (Clear); Bacteria Urine Automated Negative (Negative); Bilirubin Urine Negative (Negative); Blood Urine 3+ (Negative); Color Urine Yellow; Epithelial Cell Urine Auto >30 /lpf (0-5); Glucose Urine UA Negative (Negative); Ketones Urine Negative (Negative); Leukocyte Esterase Urine 3+ (Negative); Nitrite Urine Negative (Negative); Protein Urine 2+ (Negative); Specific Gravity Urine 1.016 (1.000-1.030); Urobilinogen Urine Negative (Negative); WBC Urine Automated >30 /hpf (0-5)
--- NOTE | 2021-01-03 20:29 | CT Scan Report ---
CT head/brain wo con CLINICAL HISTORY: seizure like activity HISTORY OF LUNG CARCINOMA COMPARISON STUDY: 06/27/2020 TECHNIQUE: Axial CT of the brain is performed from the vertex to the skull base. IV contrast was not administered for this examination. A dose lowering technique was utilized adhering to the principles of ALARA. CT DOSE: 537.48 mGy.cm FINDINGS: No intra or extra-axial mass lesions are visualized. There is no CT evidence of acute cortical infarc tion. There is no evidence of midline shift. There is no acute hemorrhage. No calvarial fractures ar e visualized. There are patchy white matter hypodensities likely on a small vessel basis. There is an old left tricia etal infarct, an old left cerebellar infarct. There is also a probable old right occipital lobe infar ct There is no evidence of pathologic ventricular dilatation. There is no evidence of acute sinusitis IMPRESSION: Evidence of old infarcts. No acute intracranial findings ACT 112: Negative or not required by law. Electronically signed by: Octavio Penny M.D. 01/03/2021 8:28 PM
[2021-01-03 21:16] LABS: RBC Urine Automated >30 /hpf (0-4)
[2021-01-03 21:17] LABS: Cast Urine Automated 0 /lpf (0-5)
[2021-01-03] MEDS ORDERED: cefTRIAXone SODIUM 1,000 MG/50 ML BAG IV STA (21:39)
--- NOTE | 2021-01-04 03:11 | History & Physical Report ---
Date of Service January 04, 2021 Assessment & Plan (1) Syncope and collapse: Most likely in setting of hypoxia - occurred when patient was ambulating without O2 on. -Telemetry monitoring -Check orthostatics Present on Admission?: Yes (2) UTI (urinary tract infection): Afebrile. HD stable -Follow cultures -Ceftriaxone Present on Admission?: Yes (3) Urge and stress incontinence: Chronic -Continue Oxybutynin Present on Admission?: Yes (4) Primary hypercoagulable state: Chronic -Continue Lovenox Present on Admission?: Yes (5) Chronic hypoxemic respiratory failure: Stable -Continue O2 Present on Admission?: Yes (6) Lung cancer: To have outpatient PET scn next month -Continue outpatient plan -No active inpatient issues Present on Admission?: Yes (7) Anxiety: Chronic -Continue Sertraline -Continue Seroquel Present on Admission?: Yes (8) Clostridium difficile colitis: History of recurrent c. diff. On PO Vancomycin weekly -Continue PO Vanc -Continue probiotic Present on Admission?: Yes (9) Cellulitis: Chronic. On suppressive therapy per ID -Continue keflex and doxy Present on Admission?: Yes History of Present Illness Chief Complaint: fall Primary Care Provider: Reynold Villegas MD 65yo C female presenting to ER after a fall at home. Patient took a shower earlier this evening without her oxygen on. Became dizzy and had a syncopal event. She did hit her head. She was on the ground an unknown amount of time. EMS called. ?Seizure -like episode at home and in ambulance x 2 prior to arrival. Patient remembers these episodes - states she feels like she was being shocked. Son states that she was unresponsive for 1-2 minutes, possible loss of bladder control possible post-ictal phase. Uncertain by history. Patient with complaint of dysuria. Otherwise seems to be at baseline. ER Course: Ceftriaxone. NSS Allergies Allergy/AdvReac Type Severity Reaction Status Date / Time bee venom protein (honey bee) Allergy Severe Difficulty Verified 01/03/21 20:20 Breathing Iodinated Contrast Media Allergy Intermediate Hives Verified 01/03/21 20:20 iodine Allergy Intermediate HIVES Verified 01/03/21 20:20 levofloxacin Allergy Intermediate numbness/we Verified 01/03/21 20:20 akness pregabalin Allergy Intermediate fever?/?cher Verified 01/03/21 20:20 h strawberry Allergy Intermediate HIVES Verified 01/03/21 20:20 Sulfa (Sulfonamide Allergy Intermediate RASH/HIVES Verified 01/03/21 20:20 Antibiotics) allopurinol Allergy Mild rash Verified 01/03/21 20:20 venlafaxine Allergy Unknown UNKNOWN Verified 01/03/21 20:20 gluten AdvReac Severe Celiac Dz Verified 01/03/21 20:20 = GI symptoms adhesive AdvReac Intermediate red torn Verified 11/17/20 14:26 skin propoxyphene AdvReac 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 Verified 11/17/20 14:26 effects Home Medications Medication Instructions Recorded Confirmed Type Florajen3 1 cap PO QAM 07/16/18 01/03/21 History butorphanol 1 spray INTRANASAL Q3H PRN 07/16/18 01/03/21 History cetirizine [Zyrtec] 10 mg PO QAM 07/16/18 01/03/21 History coenzyme Q10 [CoQ-10] 200 mg PO QAM 07/16/18 01/03/21 History folic acid 1 mg PO QAM 07/16/18 01/03/21 History magnesium oxide 400 mg PO QAM 07/16/18 01/03/21 History multivitamin 1 tab PO QAM 07/16/18 01/03/21 History triamcinolone acetonide 1 applic TOPICAL BID PRN 07/16/18 01/03/21 History vitamin B complex [B-Complex] 1 tab PO QAM 07/16/18 01/03/21 History calcium carbonate-vitamin D3 600 1 tab PO QPM 11/26/18 01/03/21 History mg (1,500 mg)-800 unit tablet cyanocobalamin (vitamin B-12) 1,000 mcg IM MONTHLY 02/10/19 01/03/21 History ferrous sulfate [iron] 325 mg PO QAM 02/10/19 01/03/21 History psyllium husk [Metamucil] 0.52 g PO QAM 08/28/19 01/03/21 History vitamin E 400 unit PO QAM 08/28/19 01/03/21 History albuterol sulfate 90 mcg/actuation 2 puff INHALATION QID PRN #8.5 gm 11/12/19 01/03/21 Rx aerosol inhaler gabapentin 400 mg capsule 400 mg PO QAM cap 04/26/20 01/03/21 History potassium chloride 20 mEq 20 meq PO QAM #30 tab 06/09/20 01/03/21 Rx tablet,extended release Medical Marijuana 1 dose PO BID 06/27/20 01/03/21 History mirabegron 50 mg tablet,extended 50 mg PO HS #90 tab 07/13/20 01/03/21 Rx release 24 hr oxybutynin chloride 10 mg 10 mg PO QAM #90 tab 07/13/20 01/03/21 Rx tablet,extended release 24 hr vancomycin 125 mg capsule 125 mg PO 2XWK cap 08/05/20 01/03/21 History budesonide-formoterol HFA 160 2 inh INHALATION BID #10.2 g 09/01/20 01/03/21 Rx mcg-4.5 mcg/actuation aerosol inhaler cephalexin 500 mg capsule 500 mg PO QAM #30 cap 09/13/20 01/03/21 Rx doxycycline hyclate 100 mg capsule 100 mg PO QAM #30 cap 09/13/20 01/03/21 Rx ergocalciferol (vitamin D2) 1,250 50,000 unit PO WEEKLY #12 cap 09/15/20 01/03/21 Rx mcg (50,000 unit) capsule [id number]-ulxojhjj See Rx Instructions .ROUTE 10/07/20 01/03/21 Rx 50 mg-325 mg-40 mg tablet .COMPLEX PRN #12 tab quetiapine 50 mg tablet 50 mg PO HS #30 tab 10/07/20 01/03/21 Rx sertraline 50 mg tablet 50 mg PO DAILY #30 tab 11/11/20 01/03/21 Rx metoprolol succinate 50 mg 50 mg PO QAM #30 tab 12/01/20 01/03/21 Rx tablet,extended release 24 hr denosumab 60 mg/mL subcutaneous 60 mg SUBCUT .q 6 months ml 12/17/20 01/03/21 History syringe methocarbamol 750 mg tablet 750 mg PO BID 30 Days #60 tab 12/29/20 01/03/21 Rx topiramate 100 mg tablet 100 mg PO .COMPLEX 30 Days #90 tab 12/29/20 01/03/21 Rx acyclovir 400 mg tablet 400 mg PO BID #60 tab 03/11/21 03/15/21 Rx clonazepam 1 mg PO HS 01/03/21 01/03/21 History enoxaparin 40 mg SUBCUT DAILY 01/03/21 01/03/21 History Past Med/Surg History Medical History Abnormal PET of right lung Acute UTI resolved per pt Anemia Asthma rare res inh use Celiac disease Cellulitis RECURRENT B/L LE - ON PROPHYLACTIC ABX (FOLLOWS W/ DR. BAUM). ADMITTED TO [facility] [place] 08/09-08/14 FOR CELLULITIS/SEPSIS 2/2 INFECTED LACERATION ON LE. Chronic back pain Chronic hypoxemic respiratory failure ON 2L O2 CONT. Chronic kidney disease STAGE III Chronic obstructive pulmonary disease EMPHYSEMA ON O2 2L CONTINUOUS Chronic venous stasis WITH DERMATITIS AND RECURRENT CELLULITIS Cirrhosis of liver Heart palpitations no issues with presently Hx MRSA infection several yrs ago Hx of cancer of lung 2012> TREATED with radiation Hx of Clostridium difficile infection on Vanco 2xw prophylactic Hx of deep venous thrombosis left leg > 1976 Hx of hepatitis C 2013 > resolved Hx of non-Hodgkin's lymphoma Hydronephrosis B/L CHRONIC HYDRONEPHROSIS REQUIRING ROUTINE STENT EXCHANGES Insomnia Lung cancer Lung nodule Malignant neoplasm of lower lobe, right bronchus or lung Medical marijuana use Migraine Mood disorder On home oxygen therapy 2L continuous Osteoporosis Poor historian due to hx stroke Primary hypercoagulable state 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 follows Dr. Pagan > Lovenox Thrombocytopenia CHRONIC Urge and stress incontinence Venous stasis Surgical History H/O bursectomy RIGHT KNEE History of bone marrow biopsy History of bronchoscopy History of carpal tunnel release LEFT History of cystoscopy most recent 10/27/2019 [place] Cystoscopy, Bilateral Retrograde, Bilateral Stent Exchange, Injection of Urethral Bulking Agent History of esophagogastroduodenoscopy (EGD) History of liver biopsy History of tooth extraction History of ureter stent MULTIPLE Hx of bladder repair surgery FOR PROLAPSE Hx of colonoscopy Hx of tonsillectomy Hx of tubal ligation Family History Unknown Heart disease Hypertension Mother Psoriasis Diabetes Social History Smoking Status: Unknown if ever smoked Cigarettes Per Day: stopped february 2011; Second Hand Exposure: Yes; Hx Alcohol Use: No Hx Substance Use: Yes Last Used Substance: Just Prior to Arrival Last Used Substance Other:: this am Substance Use Type Other:: medical marijuana card Preferred Language: Maltese Communication Ability: Effective Visual Impairment: No Limitations Hearing Ability: Normal Formula Technician Required: No Beliefs That Will Affect Care: None Current Living Situation: Family Current Living Situation Comment: son and DIL Feels Safe at Home: Yes Assistive Devices: Denture - Upper, Denture - Lower, Glasses and Oxygen - Continuous Review of Systems Review of Systems: All systems reviewed & are unremarkable except as noted in HPI & below Physical Exam Physical Exam: General: patient resting comfortably, NAD, non-toxic in appearance, AA&O x 4 Skin: warm, dry, intact, no rashes or lesions HEENT: NC/AT, PERRL, EOMI, anicteric sclera, conjunctiva without injection, external ear normal to inspection and nontender, nares patent, moist mucus membranes, dentition intact, no oropharyngeal lesions, neck supple, trachea midline, no LAD, no thyromegaly, no JVD Heart: +S1/S2, regular, no m/r/g Lungs: equal air entry bilaterally, no rales/rhonchi/wheezes Abd: +BS, soft, NT/ND, no masses/organomegaly/ascites Ext: warm, 2+ pulses in UE/LE bilaterally, no clubbing/cyanosis or edema Neuro: nonfocal, patient AA&O x 4, speech intact, no facial droop, moving all extremities on command with equal strength 5/5 Results & Data Results & Data ([facility]) Vital Signs (Past 12 Hours) Vital Signs Temp Pulse Resp BP Pulse Ox 01/04/21 00:00 60 16 104/56 L 100 01/03/21 23:30 66 12 95/53 L 100 01/03/21 23:25 65 14 104/53 L 100 01/03/21 22:00 66 17 103/56 L 100 01/03/21 21:30 57 L 13 108/58 L 100 01/03/21 21:00 62 14 107/53 L 100 01/03/21 20:51 59 L 16 108/56 L 100 03/15/21 20:00 65 12 111/58 L 100 01/03/21 19:31 54 L 12 112/52 L 100 01/03/21 19:30 59 L 17 99 01/03/21 19:00 92 H 24 97/75 L 100 01/03/21 18:58 97 01/03/21 18:22 36.5 C 71 16 114/60 100 Code Status & VTE Plan VTE Prophylaxis Plan VTE Prophylaxis will be ordered: Yes PG Care Time/CCT Total # of Minutes Spent Total Time Spent with Patient: Total time spent is greater than 50% in coordination of care (as documented) at patient's floor/unit and/or counseling patient: Coding Level of Care Code 61430 OBS Care - Level 3 Diagnoses Syncope and collapse R55 UTI (urinary tract infection) N39.0 Urge and stress incontinence N39.46 Primary hypercoagulable state D68.59 Chronic hypoxemic respiratory failure J96.11 Lung cancer C34.31 Laterality: right Lung location: lower lobe of lung Anxiety F41.9 Clostridium difficile colitis A04.72 Cellulitis L03.90 Site of cellulitis: unspecified site (1) Lung cancer Laterality: right Lung location: lower lobe of lung Qualified Code(s): C34.31 - Malignant neoplasm of lower lobe, right bronchus or lung (2) Cellulitis Site of cellulitis: unspecified site Qualified Code(s): L03.90 - Cellulitis, unspecified
[2021-01-04] MEDS ORDERED: LACTATED RINGER'S 1,000 ML IV SCH (04:30)
[2021-01-04] MEDS ORDERED: ONDANSETRON INJ 2 MG/ML 2 ML VIAL IV PRN (04:30)
[2021-01-04] MEDS ORDERED: ACETAMINOPHEN 325 MG TAB PO PRN (04:30)
[2021-01-04] MEDS ORDERED: ALBUTEROL HFA 8 GM INHALER INH PRN (05:15)
[2021-01-04 07:22] VITALS: O2SAT 99
[2021-01-04] MEDS ORDERED: OXYBUTYNIN CHLORIDE XL 5 MG TABCR PO SCH (09:00)
[2021-01-04] MEDS ORDERED: FOLIC ACID 1 MG TAB PO SCH (09:00)
[2021-01-04] MEDS ORDERED: FLUTICASONE/VILANTEROL 100/25MCG 14 PUFFS/INHALER INH SCH (09:00)
[2021-01-04] MEDS ORDERED: CETIRIZINE HCL 10 MG TABLET PO SCH (09:00)
[2021-01-04] MEDS ORDERED: SERTRALINE HCL 50 MG TABLET PO SCH (09:00)
[2021-01-04] MEDS ORDERED: GABAPENTIN 400 MG CAP PO SCH (09:00)
[2021-01-04] MEDS ORDERED: ADVANCED PROBIOTIC 1250 MG CAPSULE PO SCH (09:00)
[2021-01-04] MEDS ORDERED: MAGNESIUM OXIDE 400 MG TAB PO SCH (09:00)
[2021-01-04] MEDS ORDERED: FERROUS SULFATE 325 MG TAB PO SCH (09:00)
[2021-01-04] MEDS ORDERED: METHOCARBAMOL 750 MG TABLET PO SCH (09:00)
[2021-01-04] MEDS ORDERED: DOXYCYCLINE HYCLATE 100 MG CAP PO SCH (09:00)
[2021-01-04] MEDS ORDERED: TOPIRAMATE 100 MG TAB PO SCH ×2 (09:00→21:00)
[2021-01-04] MEDS ORDERED: ACYCLOVIR 400 MG TAB PO SCH (09:00)
[2021-01-04] MEDS ORDERED: POTASSIUM CHLORIDE CRTAB 20 MEQ TABCR PO SCH (09:00)
[2021-01-04] MEDS ORDERED: METOPROLOL SUCC 50MG EXT REL TAB PO SCH (09:00)
[2021-01-04] MEDS ORDERED: cephALEXin 500 MG CAP PO SCH (09:00)
[2021-01-04] MEDS ORDERED: ENOXAPARIN INJ 40 MG/0.4 ML SYR SQ SCH (09:00)
[2021-01-04] MEDS ORDERED: NON-FORMULARY MEDICATION (Coenzyme Q10 [Coq-10] 100 mg Capsule) PO SCH (09:00)
[2021-01-04] MEDS ORDERED: ondansetron HCL 6 MG in DEXTROSE 5% 50 ML IV ONE (09:30)
[2021-01-04 11:14] VITALS: BP 112/65; PULSE 79; TEMP 97.5
--- NOTE | 2021-01-04 18:26 | Discharge Summary ---
Date of Service January 04, 2021 Admission HPI Per Admitting Provider 65yo C female presenting to ER after a fall at home. Patient took a shower earlier this evening without her oxygen on. Became dizzy and had a syncopal event. She did hit her head. She was on the ground an unknown amount of time. EMS called. ?Seizure -like episode at home and in ambulance x 2 prior to arrival. Patient remembers these episodes - states she feels like she was being shocked. Son states that she was unresponsive for 1-2 minutes, possible loss of bladder control possible post-ictal phase. Uncertain by history. Patient with complaint of dysuria. Otherwise seems to be at baseline. ER Course: Ceftriaxone. NSS Principal Diagnosis syncope UTI tibialis anterior tendonitis suboccipital headache Discharge Exam gen aaox3 pleasant nad heent nc at mmm cardio reg no r/m/g lungs cta quiet but clear no r/r/w good effort abd soft nd nt ext L ankle no findings L tib anterior tender no crepitis Discharge Data Allergies Allergy/AdvReac Type Severity Reaction Status Date / Time bee venom protein (honey bee) Allergy Severe Difficulty Verified 01/03/21 20:20 Breathing Iodinated Contrast Media Allergy Intermediate Hives Verified 01/03/21 20:20 iodine Allergy Intermediate HIVES Verified 01/03/21 20:20 levofloxacin Allergy Intermediate numbness/we Verified 01/03/21 20:20 akness pregabalin Allergy Intermediate fever?/?cher Verified 01/03/21 20:20 h strawberry Allergy Intermediate HIVES Verified 01/03/21 20:20 Sulfa (Sulfonamide Allergy Intermediate RASH/HIVES Verified 01/03/21 20:20 Antibiotics) allopurinol Allergy Mild rash Verified 01/03/21 20:20 venlafaxine Allergy Unknown UNKNOWN Verified 01/03/21 20:20 gluten AdvReac Severe Celiac Dz Verified 01/03/21 20:20 = GI symptoms adhesive AdvReac Intermediate red torn Verified 11/17/20 14:26 skin propoxyphene AdvReac 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 -no worrisome cardiac or neurologic findings, has not recurred, has been ambulatory in the room well --->safe/stable for home (2) UTI (urinary tract infection): Afebrile. HD stable -cultures likely will show skin earl - but had (+) UA and urgency --> started on ceftriaxone here, will finish course w cedfinir. due to age + comorbidities: complicated, will treat for a week (3) Urge and stress incontinence: Chronic -Continue Oxybutynin (4) Primary hypercoagulable state: Chronic -Continue Lovenox (5) Chronic hypoxemic respiratory failure: Stable with O2 on -Continue O2 (6) Lung cancer: To have outpatient PET scn next month -Continue outpatient plan -No active inpatient issues (7) Anxiety: Chronic -Continue Sertraline -Continue Seroquel (8) Clostridium difficile colitis: History of recurrent c. diff. On PO Vancomycin weekly -Continue PO Vanc -Continue probiotic (9) Cellulitis: Chronic. On suppressive therapy per ID -Continue keflex and doxy (10) Anterior tibialis tendinitis: stretches taught, voltaren gel QID Total Time Total Time Spent Total Time Spent (In Minutes): >30 Discharge Plan Discharge Items Patient Disposition: Home - Home Health Services Reason For Visit: ?SYNCOPE VS SEIZURE, UTI Discharge Diagnosis: fainting spell, see below Activity: Resume your previous activity Activity Comment: wear your oxygen all the time, 14/05 Non-emergency contact: Primary Care Provider Call non-emergency contact if: you have any medication questions and your symptoms worsen Follow-up/Referrals: Rashid Rust MD [Primary Care Provider] - Diet: Regular Addtl Attending Provider Instructions: fainting spell - fortunately we aren't seeing anything cardiac or neurologic that appears to have been the culprit for your faint. more than likely, it was from being off oxygen while you were in the shower. when people who need oxygen all the time take it off, oxygen levels can drop pretty low pretty quick - but a lot of the time folks won't feel short of breath "like they should" - so things like a fainting spell can result. to that end, it would be best to have you wear your oxygen all the time urinary tract infection -your having to pee all the time appears consistent with a urinary tract infection. the actual culture looks like it was mixed with enough skin bacteria that we won't really have a meaningful result - however, the antibiotic you're on (ceftriaxone) is very similar to the antibiotic we'll send you home on (cefdinir) --> we'll have you take it tonight as your next dose. diarrhea -this is fortunately fairly nonspecific, i expect it to get better on its own in a few days, however, if it worsens we'd want you to have dr rust aware Pending Studies at Discharge: Yes Stand-Alone Forms: My [facility], Smoking Cessation Medications and DC Order Prescriptions: New cefdinir 300 mg capsule 300 mg PO BID Qty: 12 RF: 0 diclofenac sodium [Voltaren] 1 % gel 2 g topical QID Qty: 100 RF: 0 Continued vancomycin 125 mg capsule 125 mg PO 2XWK RF: 0 Prolia 60 mg/mL syringe 60 mg subcut .q 6 months RF: 0 calcium carbonate-vitamin D3 [Caltrate with Vitamin D3] 600 mg(1,500mg) -800 unit tablet 1 tab PO QPM RF: 0 potassium chloride 20 mEq tablet extended release 20 meq PO QAM Qty: 30 RF: 5 Myrbetriq 50 mg tablet extended release 24 hr 50 mg PO HS Qty: 90 RF: 3 oxybutynin chloride 10 mg tablet extended release 24hr 10 mg PO QAM Qty: 90 RF: 1 budesonide-formoterol [Symbicort] 160-4.5 mcg/actuation HFA aerosol inhaler 2 inh inhalation BID Qty: 10.2 RF: 11 cephalexin [Keflex] 500 mg capsule 500 mg PO QAM Qty: 30 RF: 5 doxycycline hyclate 100 mg capsule 100 mg PO QAM Qty: 30 RF: 5 ergocalciferol (vitamin D2) 1,250 mcg (50,000 unit) capsule 50,000 unit PO WEEKLY Qty: 12 RF: 1 quetiapine [Seroquel] 50 mg tablet 50 mg PO HS Qty: 30 RF: 5 [id number]-dcmjlteopcwxc-nbnm [Esgic] 50-325-40 mg tablet See Rx Instructions .ROUTE .COMPLEX PRN (Reason: HEADACHES) Qty: 12 RF: 0 sertraline 50 mg tablet 50 mg PO DAILY Qty: 30 RF: 5 metoprolol succinate 50 mg tablet extended release 24 hr 50 mg PO QAM Qty: 30 RF: 5 methocarbamol [Robaxin-750] 750 mg tablet 750 mg PO BID 30 Days Qty: 60 RF: 2 topiramate [Topamax] 100 mg tablet 100 mg PO .COMPLEX 30 Days Qty: 90 RF: 5 acyclovir 400 mg tablet 400 mg PO BID Qty: 60 RF: 1 albuterol sulfate [ProAir HFA] 90 mcg/actuation HFA aerosol inhaler 2 puff INHALATION QID PRN (Reason: Wheezing) Qty: 8.5 RF: 5 gabapentin [Neurontin] 400 mg capsule 400 mg PO QAM RF: 0 cyanocobalamin (vitamin B-12) 1,000 mcg/mL Solution 1,000 mcg IM MONTHLY RF: 0 ferrous sulfate [iron] 325 mg (65 mg iron) Tablet 325 mg PO QAM RF: 0 vitamin E 400 unit Capsule 400 unit PO QAM RF: 0 psyllium husk [Metamucil] 0.52 gram Capsule 0.52 g PO QAM RF: 0 multivitamin Tablet 1 tab PO QAM RF: 0 butorphanol 10 mg/mL Neche,Non-Aerosol 1 spray INTRANASAL Q3H PRN (Reason: Migraine Headache) RF: 0 cetirizine [Zyrtec] 10 mg Tablet 10 mg PO QAM RF: 0 triamcinolone acetonide 0.025 % Cream 1 applic TOPICAL BID PRN (Reason: Skin Irritation) RF: 0 vitamin B complex [B-Complex] Tablet 1 tab PO QAM RF: 0 folic acid 1 mg Tablet 1 mg PO QAM RF: 0 coenzyme Q10 [CoQ-10] 100 mg Capsule 200 mg PO QAM RF: 0 Florajen3 460 mg (7.5-6- 1.5 bill. cell) Capsule 1 cap PO QAM RF: 0 magnesium oxide 400 mg Capsule 400 mg PO QAM RF: 0 Medical Marijuana 1 dose PO BID RF: 0 enoxaparin 40 mg/0.4 mL syringe 40 mg subcut DAILY RF: 0 clonazepam 1 mg tablet 1 mg PO HS RF: 0 Discharge Orders: Discharge Order (Routine); Ordered 01/04/21 Ordered By: Genaro Rider Admission Data Admit Date/Time: 01/04/21 00:12 Attending Provider: Genaro Rider Admit Provider: Sarah Kay Primary Care Provider: Rashid Rust Other Providers: Sarah Kay Other Interventions: Discharge Summary Assessment (RN) Last Done: 01/04/21 13:39 Coding Level of Care Code 11387 OBS Care - Discharge Diagnoses Syncope and collapse R55 UTI (urinary tract infection) N39.0 Urge and stress incontinence N39.46 Primary hypercoagulable state D68.59 Chronic hypoxemic respiratory failure J96.11 Lung cancer C34.31 Laterality: right Lung location: lower lobe of lung Anxiety F41.9 Clostridium difficile colitis A04.72 Cellulitis L03.90 Site of cellulitis: unspecified site Anterior tibialis tendinitis M76.819
[2021-01-04] MEDS ORDERED: clonazePAM 1 MG TAB PO SCH (21:00)
[2021-01-04] MEDS ORDERED: MIRABEGRON ER 25 MG TAB PO SCH (21:00)
[2021-01-04] MEDS ORDERED: cefTRIAXone SODIUM 1,000 MG in DEXTROSE 5% 50 ML IV SCH (21:00)
[2021-01-04] MEDS ORDERED: QUEtiapine FUMARATE 25 MG TABLET PO SCH (21:00)
--- NOTE | 2021-01-05 05:36 | Electrocardiogram Report ---
Test Reason : Blood Pressure : / mmHG Vent. Rate : 064 BPM Atrial Rate : 064 BPM P-R Int : 176 ms QRS Dur : 068 ms QT Int : 420 ms P-R-T Axes : 080 006 052 degrees QTc Int : 433 ms Poor data quality, interpretation may be adversely affected Normal sinus rhythm Low voltage QRS Cannot rule out Anterior infarct , age undetermined Abnormal ECG When compared with ECG of 09-AUG-2020 18:02, Nonspecific T wave abnormality no longer evident in Anterior leads Confirmed by Jose Self ([id number] on 01/05/2021 5:35:51 AM Referred By: REFERRED SELF Confirmed By:Jose Self
[2021-01-07] MEDS ORDERED: VANCOMYCIN HCL 125 MG/2.5ML SOLN PO SCH (09:00)
[2021-01-07] MEDS ORDERED: RASPBERRY SYRUP 5 ML UDP PO SCH (09:00)
== END 2021-01-04 16:13 | disposition home health service (06) ==
LOC: ED 18:11 → 2N 18:11 → SUATTDRO 01-04 00:12 → 2N 01-04 04:43

== ENCOUNTER 2021-05-09 14:30 | Inpatient (IN) ==
[2021-05-09 15:14] LABS: Hematocrit (blood only) 28.4 % (37-47); Hemoglobin 8.8 g/dL (12.0-16.0); Mean Corpuscular Volume 109.7 fL (80-100); RDW Coefficient of Variation 13.9 % (11.5-14.5); RDW Standard Deviation 55.3 fL (36.4-46.3); Red Blood Count 2.59 M/uL (4.2-5.4); White Blood Count 2.79 K/uL (4.8-10.8)
[2021-05-09] MEDS ORDERED: SODIUM CHLORIDE 0.9% 1000ML 1,000 ML IV ONE ×2 (15:19→17:02)
[2021-05-09 15:22] LABS: Alanine Aminotransferase 145 U/L (12-78); Albumin Level 2.8 gm/dl (3.4-5.0); Aspartate Aminotransferase 78 U/L (15-37); BUN Creatinine Ratio 18.8 (10-20); Blood Urea Nitrogen 27 mg/dl (7-18); Calcium 8.3 mg/dl (8.5-10.1); Carbon Dioxide 29 mmol/L (21-32); Chloride 116 mmol/L (98-107); Creatinine Clr Calc Pharmacy 26.9 ml/min; Est GFR (Non-African American) 37.1 ml/min; Glucose 101 mg/dl (70-99); Potassium 4.5 mmol/L (3.5-5.1); Sodium 147 mmol/L (136-145)
[2021-05-09 15:24] LABS: Alkaline Phosphatase 80 U/L (45-117); Bilirubin,Total 0.2 mg/dl (0.2-1); Globulin 2.7 gm/dl (2.5-4.0); Total Protein 5.5 gm/dl (6.4-8.2)
--- NOTE | 2021-05-09 15:26 | Emergency Department Note ---
History of Present Illness General Chief complaint: Hypotension Stated complaint: HYPOTENSION Time Seen by Provider: 05/09/21 14:58 Mode of arrival: EMS Limitations: no limitations History of Present Illness Provider complaint: syncope, low blood pressure Onset (ago): hour(s) Maximum Pain Intensity: 5 This is a 66-year-old female presents emergency department due to concern for low blood pressure and a syncopal event while in the doctor's office. Patient as well as family at bedside help provide history. Family states prior to arriving at the doctor's office she complained that she was not feeling well. Upon arrival she stated that she felt like "the blood was draining from my body ". After getting checked in and while seated the family member noticed she began holding onto her chest and when she was asked about this she said she was having a hard time breathing. When she was taken back into her room at the doctor's office family member states she appeared to be trying to talk however was not vocalizing anything, her eyes rolled back in her head, and she slumped over and went unresponsive. Staff were unable to palpate a pulse so they later on the floor ended several chest compressions which resulted in her promptly opening her eyes regaining consciousness. Family states that her pulse was also noted to be low in the office in the 30s and 40s. They state her blood pressures recently have been lower than usual over the course of the last week, however she has not had any other near syncopal or syncopal events. He denies any recent change in medication. They suspect she has not been eating and drinking as much as usual due to all of her other ongoing medical problems. Patient admits she does not drink much water daily. Patient states she does have intermittent back pain, however denies chest pain, abdominal pain, nausea, headaches. She states she did feel dizzy/weak/lightheaded prior to arriving at the doctor's office earlier today. She denies any change in bowel movements or urinary habits. Pt seen during a time of high acuity and national emergency pandemic while wearing PPE. Home Medications Medication Instructions Recorded Confirmed Type butorphanol 10 mg/mL nasal spray 1 spray INTRANASAL Q3H PRN 07/16/18 05/09/21 History cetirizine 10 mg tablet (Zyrtec) 10 mg PO QAM 07/16/18 05/09/21 History coenzyme Q10 100 mg capsule 100 mg PO QAM 07/16/18 05/09/21 History (CoQ-10) folic acid 1 mg tablet 1 mg PO QAM 07/16/18 05/09/21 History magnesium oxide 400 mg PO QAM 07/16/18 05/09/21 History multivitamin 1 tab PO QAM 07/16/18 05/09/21 History triamcinolone acetonide 0.025 % 1 applic TOPICAL BID PRN 07/16/18 05/09/21 History topical cream vitamin B complex (B-Complex) 1 tab PO QAM 07/16/18 05/09/21 History calcium carbonate-vitamin D3 600 1 tab PO QPM 11/26/18 05/09/21 History mg (1,500 mg)-800 unit tablet (Caltrate with Vitamin D3) cyanocobalamin (vitamin B-12) 1,000 mcg IM MONTHLY 02/10/19 05/09/21 History 1,000 mcg/mL injection solution ferrous sulfate 325 mg (65 mg 325 mg PO QAM 02/10/19 05/09/21 History iron) tablet (iron) psyllium husk 0.52 gram capsule 1.04 g PO QAM 08/28/19 05/09/21 History (Metamucil) vitamin E 400 unit capsule 400 unit PO QAM 08/28/19 05/09/21 History Medical Marijuana 1 drp SUBLINGUAL BID 06/27/20 05/09/21 History mirabegron 50 mg tablet,extended 50 mg PO HS #90 tab 07/13/20 05/09/21 Rx release 24 hr (Myrbetriq) mgfhmiejny-gyeuaefrzennl-msbfxzsj See Rx Instructions .ROUTE 10/07/20 05/09/21 Rx 50 mg-325 mg-40 mg tablet (Esgic) .COMPLEX PRN #12 tab metoprolol succinate 50 mg 50 mg PO QAM #30 tab 12/01/20 05/09/21 Rx tablet,extended release 24 hr denosumab 60 mg/mL subcutaneous 60 mg SUBCUT .q 6 months ml 12/17/20 05/09/21 History syringe (Prolia) topiramate 100 mg tablet (Topamax) 100 mg PO .COMPLEX 30 Days #90 tab 12/29/20 05/09/21 Rx acetaminophen 500 mg capsule 500 mg PO QID PRN 01/24/21 05/09/21 History doxycycline hyclate 100 mg capsule 100 mg PO QAM #30 cap 01/27/21 05/09/21 Rx gabapentin 400 mg capsule 400 mg PO QAM 30 Days #30 cap 01/27/21 05/09/21 Rx (Neurontin) potassium chloride 20 mEq 20 meq PO QAM #30 tab 01/27/21 05/09/21 Rx tablet,extended release oxybutynin chloride 10 mg 10 mg PO QAM #90 tab 01/31/21 05/09/21 Rx tablet,extended release 24 hr L.acidophilus-B.lactis-B.longum 15 1 cap PO QAM 02/03/21 05/09/21 History billion cell capsule acyclovir 400 mg tablet 400 mg PO BID #60 tab 02/25/21 05/09/21 Rx quetiapine 50 mg tablet (Seroquel) 50 mg PO HS #30 tab 02/25/21 05/09/21 Rx cephalexin 500 mg capsule 500 mg PO QAM #30 cap 02/28/21 05/09/21 Rx enoxaparin 30 mg/0.3 mL 30 mg SUBCUT DAILY #30 syr 02/28/21 05/09/21 Rx subcutaneous syringe ergocalciferol (vitamin D2) 1,250 50,000 unit PO WEEKLY #12 cap 02/28/21 05/09/21 Rx mcg (50,000 unit) capsule budesonide-formoterol HFA 80 2 puff INHALATION BID #10.2 g 03/16/21 05/09/21 Rx mcg-4.5 mcg/actuation aerosol inhaler (Symbicort) sertraline 50 mg tablet 50 mg PO DAILY #30 tab 03/25/21 05/09/21 Rx vancomycin 125 mg capsule 125 mg PO 2XWK #30 cap 03/29/21 05/09/21 Rx albuterol sulfate 90 mcg/actuation 2 puff INHALATION QID PRN #8.5 gm 04/22/21 05/09/21 Rx aerosol inhaler (ProAir HFA) clonazepam 1 mg tablet 1 mg PO HS #30 tab 04/22/21 05/09/21 Rx methocarbamol 750 mg tablet See Rx Instructions .ROUTE 05/09/21 05/09/21 History .COMPLEX PRN rizatriptan 10 mg tablet 10 mg PO DAILY PRN 05/09/21 05/09/21 History Allergies Allergy/AdvReac Type Severity Reaction Status Date / Time bee venom protein (honey bee) Allergy Severe Difficulty Verified 05/09/21 15:33 Breathing Iodinated Contrast Media Allergy Intermediate Hives Verified 05/09/21 15:33 iodine Allergy Intermediate HIVES Verified 05/09/21 15:33 levofloxacin Allergy Intermediate numbness/we Verified 05/09/21 15:33 akness pregabalin Allergy Intermediate fever?/?cher Verified 05/09/21 15:33 h strawberry Allergy Intermediate HIVES Verified 05/09/21 15:33 Sulfa (Sulfonamide Allergy Intermediate RASH/HIVES Verified 05/09/21 15:33 Antibiotics) allopurinol Allergy Mild rash Verified 05/09/21 15:33 venlafaxine Allergy Unknown UNKNOWN Verified 05/09/21 15:33 gluten AdvReac Severe Celiac Dz Verified 05/09/21 15:33 = GI symptoms adhesive AdvReac Intermediate red torn Verified 05/09/21 15:33 skin propoxyphene AdvReac Intermediate MANAGER CHINESE side Verified 05/09/21 15:33 effects Past Med/Surg History Medical History Acute hypercapnic respiratory failure Acute UTI chronic /recurrent> finished Cefdinir 01/11/21 Asthma rare res inh use Bilateral hydronephrosis Celiac disease Cellulitis RECURRENT B/L LE - ON PROPHYLACTIC ABX (FOLLOWS W/ DR. BAUM). On chronic Cephalexin and Doxy Chronic back pain Chronic hypoxemic respiratory failure ON 2L O2 CONT. Chronic kidney disease STAGE III > follows Dr. Fleming Chronic obstructive pulmonary disease EMPHYSEMA ON O2 2L CONTINUOUS Chronic venous stasis WITH DERMATITIS AND RECURRENT CELLULITIS Cirrhosis of liver Hx of Hep C with cirrhosis Clostridium difficile colitis Depression Fatigue Heart palpitations no issues with presently Hx MRSA infection several yrs ago Hx of cancer of lung 2012> TREATED with radiation Dx'ed again in 06/2020 in [facility]- tx'ed with XRT - follows with heme/onc Follow up PET scan January 2021 per patient Hx of Clostridium difficile infection on Vanco 2xw prophylactic Hx of deep venous thrombosis left leg > 1977 Hx of hepatitis C 2013 > resolved Hx of non-Hodgkin's lymphoma finished treatment in 2013 Hydronephrosis B/L CHRONIC HYDRONEPHROSIS REQUIRING ROUTINE STENT EXCHANGES Hyperlipidemia Insomnia Lethargy Migraine Mood disorder Obstructive sleep apnea On home oxygen therapy 2L continuous Osteoporosis Polypharmacy Poor historian due to hx stroke Prediabetes diet control Primary hypercoagulable state 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 follows Dr. Pagan > Lovenox Thrombocytopenia CHRONIC Unintentional weight loss Surgical History H/O bursectomy RIGHT KNEE History of bone marrow biopsy History of bronchoscopy History of carpal tunnel release LEFT History of cystoscopy most recent 08/2020 Bilateral Retrograde Pyelogram, and Bilateral Ureteral Stent Exchange History of esophagogastroduodenoscopy (EGD) History of liver biopsy History of tooth extraction History of ureter stent MULTIPLE History of ureter stent Hx of bladder repair surgery FOR PROLAPSE Hx of colonoscopy Hx of tonsillectomy Hx of tubal ligation Family History Unknown Heart disease Hypertension Mother Psoriasis Diabetes Social History Smoking Status: Former smoker Tobacco Type: Cigarettes Cigarettes Per Day: stopped february 2011; Second Hand Exposure: Yes; Hx Alcohol Use: No Hx Substance Use: No Preferred Language: Yoruba Communication Ability: Effective Visual Impairment: No Limitations Hearing Ability: Normal Supervisor Typesetting Required: No Beliefs That Will Affect Care: None Current Living Situation: Family Current Living Situation Comment: Son and son's girlfriend Feels Safe at Home: Yes Assistive Devices: Denture - Upper, Denture - Lower, Glasses and Oxygen - Continuous Review of Systems See HPI for pertinent positives & negatives. and A total of 10 systems reviewed and were otherwise negative All systems reviewed & are unremarkable except as noted in HPI & below Physical Exam Vital Signs Vital Signs - 24 hr 05/09/21 14:34 05/09/21 14:43 05/09/21 15:00 Temperature 36.6 C Temperature Source Oral Pulse Rate 68 84 66 Pulse Rate [Left Finger] Pulse Rate from SpO2 Sensor 68 65 69 Respiratory Rate 22 18 15 Blood Pressure 90/49 L 89/52 L 92/53 L Blood Pressure [Right Arm] Blood Pressure Mean 62 64 66 Blood Pressure Mean [Right Arm] Blood Pressure Position [Right Arm] Pulse Oximetry 95 98 99 Oxygen Delivery Method Room Air Room Air Room Air Oxygen Flow Rate Sepsis Recent Fever Within 48 Hours No Sepsis New/Unexplained Change in Mental Status No Sepsis Action Taken by Nursing No Action Required 05/09/21 15:10 05/09/21 15:30 05/09/21 15:44 Temperature Temperature Source Pulse Rate 69 62 Pulse Rate [Left Finger] Pulse Rate from SpO2 Sensor 69 63 Respiratory Rate 12 19 24 Blood Pressure 86/46 L 82/56 L 106/50 L Blood Pressure [Right Arm] Blood Pressure Mean 59 64 68 Blood Pressure Mean [Right Arm] Blood Pressure Position [Right Arm] Pulse Oximetry 98 100 Oxygen Delivery Method Room Air Nasal Cannula Oxygen Flow Rate 1 Sepsis Recent Fever Within 48 Hours Sepsis New/Unexplained Change in Mental Status Sepsis Action Taken by Nursing 05/09/21 16:02 05/09/21 16:10 05/09/21 16:31 Temperature Temperature Source Pulse Rate 65 61 102 H Pulse Rate [Left Finger] Pulse Rate from SpO2 Sensor 67 61 78 Respiratory Rate 19 13 22 Blood Pressure 95/55 L Blood Pressure [Right Arm] Blood Pressure Mean 68 Blood Pressure Mean [Right Arm] Blood Pressure Position [Right Arm] Pulse Oximetry 95 100 98 Oxygen Delivery Method Nasal Cannula Nasal Cannula Nasal Cannula Oxygen Flow Rate 1 1 1 Sepsis Recent Fever Within 48 Hours Sepsis New/Unexplained Change in Mental Status Sepsis Action Taken by Nursing 05/09/21 16:58 05/09/21 17:00 05/09/21 17:16 Temperature Temperature Source Pulse Rate 69 67 Pulse Rate [Left Finger] 63 Pulse Rate from SpO2 Sensor 64 67 Respiratory Rate 18 14 18 Blood Pressure 98/56 L Blood Pressure [Right Arm] 101/51 L Blood Pressure Mean 70 Blood Pressure Mean [Right Arm] 67 Blood Pressure Position [Right Arm] Lying Pulse Oximetry 100 100 100 Oxygen Delivery Method Nasal Cannula Nasal Cannula Nasal Cannula Oxygen Flow Rate 1 1 1 Sepsis Recent Fever Within 48 Hours Sepsis New/Unexplained Change in Mental Status Sepsis Action Taken by Nursing 05/09/21 17:31 05/09/21 17:46 05/09/21 18:00 Temperature Temperature Source Pulse Rate 69 67 63 Pulse Rate [Left Finger] 66 Pulse Rate from SpO2 Sensor 68 67 63 Respiratory Rate 16 18 14 Blood Pressure 110/66 103/54 L 109/58 L Blood Pressure [Right Arm] 109/58 L Blood Pressure Mean 80 70 75 Blood Pressure Mean [Right Arm] 75 Blood Pressure Position [Right Arm] Pulse Oximetry 100 100 100 Oxygen Delivery Method Nasal Cannula Nasal Cannula Oxygen Flow Rate 1 1 Sepsis Recent Fever Within 48 Hours Sepsis New/Unexplained Change in Mental Status Sepsis Action Taken by Nursing GENERAL: alert, unwell appearing, cachectic, no distress, non-toxic EYE EXAM: normal conjunctiva, PERRL and EOM's grossly intact OROPHARYNX: no exudate, no erythema, lips, buccal mucosa, and tongue normal and mucous membranes are moist NECK: supple, no nuchal rigidity, no adenopathy, non-tender LUNGS: Clear to auscultation. Normal chest wall mechanics, no w/r/r HEART: no murmurs, S1 normal and S2 normal ABDOMEN: abdomen soft, non-tender, normo-active bowel sounds, no masses, no rebound or guarding. BACK: Back is symmetrical on inspection and there is no deformity, no midline tenderness, no CVA tenderness. SKIN: no rashes and no bruising UPPER EXTREMITIES: upper extremities are grossly normal. FROM, nml pulses b/l. LOWER EXTREMITIES: No pitting edema. FROM, nml pulses b/l. NEURO EXAM: Normal sensorium, cranial nerves II-XII grossly intact, normal speech, no gross weakness of arms, no gross weakness of legs. Gross sensation intact. Course Course 1699: Dr. Leblanc discussed with Dr. Armijo. Administered Medications Acetaminophen (Acetaminophen 500 Mg Tab) 500 mg PO QID PRN PRN Reason: Pain Stop: 06/08/21 21:18 Last Admin: 05/10/21 19:50 Dose: 500 mg Documented by: [id number] Acyclovir (Acyclovir 400 Mg Tab) 400 mg PO BID BIRDIE Stop: 06/08/21 21:59 Last Admin: 05/10/21 08:16 Dose: 400 mg Documented by: [id number] Admin: 05/09/21 22:22 Dose: 400 mg Documented by: [id number] Cetirizine HCl (Cetirizine Hcl 10 Mg Tablet) 10 mg PO QAM BIRDIE Stop: 06/09/21 08:59 Last Admin: 05/10/21 08:15 Dose: 10 mg Documented by: [id number] Clonazepam (Clonazepam 1 Mg Tab) 1 mg PO HS BIRDIE Stop: 06/08/21 21:59 Last Admin: 05/09/21 22:20 Dose: 1 mg Documented by: [id number] Diphenhydramine HCl (Diphenhydramine Capsule 25 Mg Cap) 25 mg PO Q4H PRN PRN Reason: Itching Stop: 06/09/21 10:09 Last Admin: 05/10/21 19:04 Dose: 25 mg Documented by: [id number] Admin: 05/10/21 11:13 Dose: 25 mg Documented by: [id number] Enoxaparin Sodium (Enoxaparin Inj 30 Mg/0.3 Ml Syr) 30 mg SQ DAILY [facility] Stop: 06/09/21 08:59 Last Admin: 05/10/21 08:16 Dose: 30 mg Documented by: [id number] Fluticasone/Vilanterol (Fluticasone/Vilanterol 100/25mcg 14 Puffs/Inhaler) 1 puffs INH DAILY [facility]; Protocol Stop: 06/09/21 08:59 Last Admin: 05/10/21 08:18 Dose: 1 puffs Documented by: [id number] Gabapentin (Gabapentin 400 Mg Cap) 400 mg PO QAM BIRDIE Stop: 06/09/21 08:59 Last Admin: 05/10/21 08:14 Dose: 400 mg Documented by: [id number] Dextrose (D5w) 1,000 mls @ 125 mls/hr IV .Q8H [facility] Stop: 05/11/21 11:14 Last Admin: 05/10/21 19:38 Dose: 125 mls/hr Documented by: [id number] Methocarbamol (Methocarbamol 750 Mg Tablet) 750 mg PO BID BIRDIE Stop: 06/08/21 21:59 Last Admin: 05/10/21 08:16 Dose: 750 mg Documented by: [id number] Admin: 05/09/21 22:21 Dose: 750 mg Documented by: [id number] Mirabegron (Mirabegron Er 25 Mg Tab) 50 mg PO HS [facility] Stop: 06/08/21 21:59 Last Admin: 05/09/21 22:23 Dose: 50 mg Documented by: [id number] Oxybutynin Chloride (Oxybutynin Chloride Xl 5 Mg Tabcr) 10 mg PO QAM BIRDIE Stop: 06/09/21 08:59 Last Admin: 05/10/21 08:14 Dose: 10 mg Documented by: [id number] Quetiapine Fumarate (Quetiapine Fumarate 25 Mg Tablet) 50 mg PO HS BIRDIE Stop: 06/08/21 21:59 Last Admin: 05/09/21 22:23 Dose: 50 mg Documented by: [id number] Sertraline HCl (Sertraline Hcl 50 Mg Tablet) 50 mg PO DAILY BIRDIE Stop: 06/09/21 08:59 Last Admin: 05/10/21 08:14 Dose: 50 mg Documented by: [id number] Topiramate (Topiramate 100 Mg Tab) 100 mg PO DAILY BIRDIE Stop: 06/09/21 08:59 Last Admin: 05/10/21 08:16 Dose: 100 mg Documented by: [id number] Topiramate (Topiramate 100 Mg Tab) 200 mg PO HS BIRDIE Stop: 06/08/21 21:59 Last Admin: 05/09/21 22:24 Dose: 200 mg Documented by: [id number] Discontinued Medications Diphenhydramine HCl (Diphenhydramine 50 Mg/Ml Vial) 25 mg IV NOW STA Stop: 05/09/21 16:20 Last Admin: 05/09/21 16:29 Dose: 25 mg Documented by: [id number] Sodium Chloride (Nss 1000ml) 1,000 mls @ 999 mls/hr IV .Q1H1M ONE Stop: 05/09/21 16:19 Last Infusion: 05/09/21 16:36 Dose: 0 mls/hr Documented by: [id number] Admin: 05/09/21 15:30 Dose: 999 mls/hr Documented by: [id number] Sodium Chloride (Nss 1000ml) 1,000 mls @ 999 mls/hr IV .Q1H1M ONE Stop: 05/09/21 18:02 Last Infusion: 05/09/21 18:06 Dose: 0 mls/hr Documented by: [id number] Admin: 05/09/21 17:00 Dose: 999 mls/hr Documented by: [id number] Piperacillin Sod/Tazobactam Sod (Zosyn) 4.5 gm in 120 mls @ 240 mls/hr IV NOW ONE Stop: 05/09/21 17:45 Last Infusion: 05/09/21 18:25 Dose: 0 mls/hr Documented by: [id number] Admin: 05/09/21 17:55 Dose: 240 mls/hr Documented by: [id number] Piperacillin Sod/Tazobactam (Sod 3.375 gm/ Dextrose) 115 mls @ 28.75 mls/hr IV Q8H [facility]; Protocol Stop: 05/16/21 21:59 Last Infusion: 05/10/21 19:18 Dose: 0 mls/hr Documented by: [id number] Admin: 05/10/21 14:58 Dose: 28.8 mls/hr Documented by: [id number] Infusion: 05/10/21 10:18 Dose: 0 mls/hr Documented by: [id number] Admin: 05/10/21 06:18 Dose: 28.8 mls/hr Documented by: [id number] Infusion: 05/10/21 02:35 Dose: 0 mls/hr Documented by: [id number] Admin: 05/09/21 22:21 Dose: 28.8 mls/hr Documented by: [id number] Sodium Chloride (Nss 1000ml) 500 mls @ 999 mls/hr IV .Q31M ONE Stop: 05/10/21 12:15 Last Infusion: 05/10/21 12:42 Dose: 0 mls/hr Documented by: [id number] Admin: 05/10/21 11:51 Dose: 999 mls/hr Documented by: [id number] Ioversol (Optiray 320 100ml) 94 ml IV ONCE ONE Stop: 05/09/21 16:41 Last Admin: 05/09/21 16:40 Dose: 94 ml Documented by: [id number] Metoprolol Succinate (Metoprolol Succ 50mg Ext Rel Tab) 50 mg PO QAM [facility] Stop: 06/09/21 08:59 Last Admin: 05/10/21 08:21 Dose: 50 mg Documented by: [id number] Raspberry (Raspberry Syrup 5 Ml Udp) 5 ml PO MoFr@0900 [facility] Stop: 05/23/21 21:59 Last Admin: 05/09/21 22:23 Dose: 5 ml Documented by: [id number] Vancomycin HCl (Vancomycin Hcl 125 Mg/2.5ml Soln) 125 mg PO MoFr@0900 [facility] Stop: 06/08/21 21:59 Last Admin: 05/09/21 22:21 Dose: 125 mg Documented by: [id number] Critical Care Time Critical Care Time: Yes (49) Total Critical Care Time: 49 Critical care of 49 min performed to assess and manage high likelihood of life- threatening hypotension, involving labs and imaging performed with assessment to evaluate hypotension and syncope with frequent reassessment. This time includes bedside time, treatment discussions with patient/family/consultants, documentation time and excludes procedure time. Medical Decision Making Differential Diagnosis Differential diagnosis includes etiologies such as vasovagal event, infection, hypoglycemia, electrolyte abnormalities, cardiac sources, intracerebral event, toxicologic, neurologic, as well as others were entertained. Medical Records Attestation: I reviewed the patient's medical records. Home Medications Current Medication List: was personally reviewed by me Laboratory Data Attestation: I reviewed the patient's lab results. Result diagrams: 05/10/21 07:56 05/10/21 07:56 Lab Results 05/09/21 05/09/21 05/09/21 Range/Units 14:40 14:40 14:40 WBC 2.79 L (4.8-10.8) K/uL RBC 2.59 L (4.2-5.4) M/uL Hgb 8.8 L (12.0-16.0) g/dL POC Hgb (12.0-16.0) g/dl Hct 28.4 L (37-47) % POC Hct (37-47) % MCV 109.7 H (80-100) fL MCH 34.0 (25-34) pg MCHC 31.0 L (32-36) g/dL RDW Std Deviation 55.3 H (36.4-46.3) fL RDW Coeff of Irasema 13.9 (11.5-14.5) % Plt Count 64 L (130-400) K/uL MPV 10.5 H (7.4-10.4) fL Immature Gran % (Auto) 0.0 % Neut % (Auto) 40.5 % Lymph % (Auto) 38.7 % Carroll % (Auto) 17.6 % Eos % (Auto) 3.2 % Baso % (Auto) 0.0 % Neut # (Auto) 1.13 L (1.4-6.5) K/uL Lymph # (Auto) 1.08 L (1.2-3.4) K/uL Carroll # (Auto) 0.49 (0.11-0.59) K/uL Eos # (Auto) 0.09 (0-0.5) K/uL Baso # (Auto) 0.00 (0-0.2) K/uL Immature Gran # (Auto) 0.00 (0.00-0.02) K/uL Specimen Type POC pH (7.35-7.45) POC pCO2 (35-46) mmHg POC pO2 (80-95) mmHg POC HCO3 (19-24) leonor/L POC Total CO2 (24-31) mmol/L POC Base Excess (-9-1.8) leonor/L POC ABG O2 Sat (90-95) % POC Sodium (135-144) mmol/L Sodium 147 H (136-145) mmol/L POC Potassium (3.3-5.0) mmol/L Potassium 4.5 (3.5-5.1) mmol/L Chloride 116 H (98-107) mmol/L Carbon Dioxide 29 (21-32) mmol/L Anion Gap 2.0 L (3-11) BUN 27 H (7-18) mg/dl Creatinine 1.46 H (0.6-1.2) mg/dl Est Cr Clr Drug Dosing 26.9 ml/min Est GFR ( Amer) 43.0 ml/min Est GFR (Non-Af Amer) 37.1 ml/min BUN/Creatinine Ratio 18.8 (10-20) Glucose 101 H (70-99) mg/dl Lactate (0.4-2.0) mmol/L Calcium 8.3 L (8.5-10.1) mg/dl Phosphorus 3.8 (2.5-4.9) mg/dl Magnesium 2.2 (1.8-2.4) mg/dl Total Bilirubin 0.2 (0.2-1) mg/dl AST 78 H (15-37) U/L ALT 145 H (12-78) U/L Alkaline Phosphatase 80 (45-117) U/L Troponin I < 0.015 (0-0.045) ng/ml Total Protein 5.5 L (6.4-8.2) gm/dl Albumin 2.8 L (3.4-5.0) gm/dl Globulin 2.7 (2.5-4.0) gm/dl Albumin/Globulin Ratio 1.0 (0.9-2) Procalcitonin (0-0.5) ng/ml Nasal Screen MRSA (PCR) (Negative) COVID-19 Eval Order SARS-CoV-2 (PCR) (Negative) 05/09/21 05/09/21 05/09/21 Range/Units 14:40 15:36 15:53 WBC (4.8-10.8) K/uL RBC (4.2-5.4) M/uL Hgb (12.0-16.0) g/dL POC Hgb 7.8 L (12.0-16.0) g/dl Hct (37-47) % POC Hct 23 L (37-47) % MCV (80-100) fL MCH (25-34) pg MCHC (32-36) g/dL RDW Std Deviation (36.4-46.3) fL RDW Coeff of Irasema (11.5-14.5) % Plt Count (130-400) K/uL MPV (7.4-10.4) fL Immature Gran % (Auto) % Neut % (Auto) % Lymph % (Auto) % Carroll % (Auto) % Eos % (Auto) % Baso % (Auto) % Neut # (Auto) (1.4-6.5) K/uL Lymph # (Auto) (1.2-3.4) K/uL Carroll # (Auto) (0.11-0.59) K/uL Eos # (Auto) (0-0.5) K/uL Baso # (Auto) (0-0.2) K/uL Immature Gran # (Auto) (0.00-0.02) K/uL Specimen Type Arterial POC pH 7.28 L (7.35-7.45) POC pCO2 49 H (35-46) mmHg POC pO2 177 H (80-95) mmHg POC HCO3 23 (19-24) leonor/L POC Total CO2 24 (24-31) mmol/L POC Base Excess -4.0 (-9-1.8) leonor/L POC ABG O2 Sat 99.0 H (90-95) % POC Sodium 147 H (135-144) mmol/L Sodium (136-145) mmol/L POC Potassium 4.1 (3.3-5.0) mmol/L Potassium (3.5-5.1) mmol/L Chloride (98-107) mmol/L Carbon Dioxide (21-32) mmol/L Anion Gap (3-11) BUN (7-18) mg/dl Creatinine (0.6-1.2) mg/dl Est Cr Clr Drug Dosing ml/min Est GFR ( Amer) ml/min Est GFR (Non-Af Amer) ml/min BUN/Creatinine Ratio (10-20) Glucose (70-99) mg/dl Lactate 1.0 (0.4-2.0) mmol/L Calcium (8.5-10.1) mg/dl Phosphorus (2.5-4.9) mg/dl Magnesium (1.8-2.4) mg/dl Total Bilirubin (0.2-1) mg/dl AST (15-37) U/L ALT (12-78) U/L Alkaline Phosphatase (45-117) U/L Troponin I (0-0.045) ng/ml Total Protein (6.4-8.2) gm/dl Albumin (3.4-5.0) gm/dl Globulin (2.5-4.0) gm/dl Albumin/Globulin Ratio (0.9-2) Procalcitonin < 0.05 (0-0.5) ng/ml Nasal Screen MRSA (PCR) (Negative) COVID-19 Eval Order SARS-CoV-2 (PCR) (Negative) 05/09/21 05/09/21 05/09/21 Range/Units 17:22 17:23 17:23 WBC (4.8-10.8) K/uL RBC (4.2-5.4) M/uL Hgb (12.0-16.0) g/dL POC Hgb (12.0-16.0) g/dl Hct (37-47) % POC Hct (37-47) % MCV (80-100) fL MCH (25-34) pg MCHC (32-36) g/dL RDW Std Deviation (36.4-46.3) fL RDW Coeff of Irasema (11.5-14.5) % Plt Count (130-400) K/uL MPV (7.4-10.4) fL Immature Gran % (Auto) % Neut % (Auto) % Lymph % (Auto) % Carroll % (Auto) % Eos % (Auto) % Baso % (Auto) % Neut # (Auto) (1.4-6.5) K/uL Lymph # (Auto) (1.2-3.4) K/uL Carroll # (Auto) (0.11-0.59) K/uL Eos # (Auto) (0-0.5) K/uL Baso # (Auto) (0-0.2) K/uL Immature Gran # (Auto) (0.00-0.02) K/uL Specimen Type POC pH (7.35-7.45) POC pCO2 (35-46) mmHg POC pO2 (80-95) mmHg POC HCO3 (19-24) leonor/L POC Total CO2 (24-31) mmol/L POC Base Excess (-9-1.8) leonor/L POC ABG O2 Sat (90-95) % POC Sodium (135-144) mmol/L Sodium (136-145) mmol/L POC Potassium (3.3-5.0) mmol/L Potassium (3.5-5.1) mmol/L Chloride (98-107) mmol/L Carbon Dioxide (21-32) mmol/L Anion Gap (3-11) BUN (7-18) mg/dl Creatinine (0.6-1.2) mg/dl Est Cr Clr Drug Dosing ml/min Est GFR ( Amer) ml/min Est GFR (Non-Af Amer) ml/min BUN/Creatinine Ratio (10-20) Glucose (70-99) mg/dl Lactate (0.4-2.0) mmol/L Calcium (8.5-10.1) mg/dl Phosphorus (2.5-4.9) mg/dl Magnesium (1.8-2.4) mg/dl Total Bilirubin (0.2-1) mg/dl AST (15-37) U/L ALT (12-78) U/L Alkaline Phosphatase (45-117) U/L Troponin I (0-0.045) ng/ml Total Protein (6.4-8.2) gm/dl Albumin (3.4-5.0) gm/dl Globulin (2.5-4.0) gm/dl Albumin/Globulin Ratio (0.9-2) Procalcitonin (0-0.5) ng/ml Nasal Screen MRSA (PCR) Negative (Negative) COVID-19 Eval Order Covid19 at [facility], [place] SARS-CoV-2 (PCR) NEGATIVE (Negative) Imaging Data Radiologist's Impression: Abdomen/Pelvis CT 05/09/21 16:19 CT abd pelvis IV con only CLINICAL HISTORY: hypotension, BL stents COMPARISON STUDY: December 10, 2020 TECHNIQUE: A dose lowering technique was utilized adhering to the principles of ALARA. CT DOSE: 456.45 mGy.cm FINDINGS: Liver: The contrast-enhanced liver is normal in size, contour, and attenuation. There is no intrahepatic biliary ductal dilatation. The hepatic veins and portal veins are patent. Gallbladder: Is fluid-filled with prominent mucosal enhancement and mild surrounding pericholecystic edema. Previously seen gallstone is poorly demonstrated on current exam which could be due to intravenous contrast administration. Spleen: Normal in size and attenuation. Pancreas: Is slightly atrophic. No definite pancreatic lesion is seen. Adrenal glands: Unremarkable. Kidneys: Mild bilateral hydronephrosis is seen. Right and left double-J stents are in stable position.Stable small left renal cyst. Pelvic viscera: Urinary bladder is fluid-filled, and contain distal aspect of the urinary stents. Uterus is atrophic, previously seen cystic lesion within right posterior pelvis now appear on the contralateral side. Bowel: Bowel loops are nondilated. Appendix is not definitely seen. Peritoneum: There is no intraperitoneal free air or abdominal ascites. Vasculature: Abdominal aorta is nondilated. Distal aspect of infrarenal aorta and bilateral iliac arteries are heavily calcified with possible luminal narrowing of the distal portion of abdominal aorta measuring 6 mm in diameter. Adenopathy: Multiple mottled retroperitoneal lymph nodes are seen. Skeletal structures: Mild degenerative changes of the spine. No definite destructive osseous lesions are seen. IMPRESSION: 1. Stable position of bilateral urinary stents. Mild bilateral hydronephrosis. 2. Questionable pericholecystic edema and mucosal enhancement of the gallbladder. Please correlate above-mentioned findings with clinical presentation of cholecystitis. 3. Stenosis of the distal aspect of abdominal aorta. Prominent calcified plaques. 4. Previously seen cystic lesion within inferior posterior right pelvis now appear on the contralateral side and might represent adnexal cyst versus other etiology. 5. Multiple mottled retroperitoneal lymph nodes, stable since prior. ACT 112: Negative or not required by law. The above report was generated using voice recognition software. It may contain grammatical, syntax or spelling errors. Electronically signed by: Feli Hall DO 05/09/2021 5:[address] 05/09/21 16:19 CT OF THE CHEST WITH IV CONTRAST CLINICAL HISTORY: hx lymphoma, lung cancer, AMS COMPARISON STUDY: April 29, 2021 TECHNIQUE: Following the IV administration of 94 mL of Optiray, CT of the thorax was performed from the thoracic inlet to the lung bases. Images are reviewed in the axial, sagittal, and coronal planes. IV contrast was administered without complication. A dose lowering technique was utilized adhering to the principles of ALARA. CT DOSE: FINDINGS: There is no axillary, supra clavicle or internal mammary lymphadenopathy seen. There are a few pericardial lymph nodes are seen, stable since recent prior study and measuring less than 1 cm in short axis. Multiple mottled mediastinal lymph nodes are again seen measuring up to 1.3 cm within precarinal region, stable since prior. Thyroid: Imaged portions of the thyroid gland are normal in appearance. Thoracic aorta: The thoracic aorta is normal in course and caliber, noting standard 3-vessel arch anatomy. No aneurysm or dissection is seen. Pulmonary vasculature: Main pulmonary artery is is not dilated. HEART: The heart is normal in size and configuration. Trace pericardial effusion and moderate coronary calcifications are seen. Lungs and pleural spaces: Tracheobronchial tree is patent. Evaluation of lung parenchyma is slightly limited due to respiratory motion artifact. There is moderate centrilobular and paraseptal upper lobe predominant emphysema. Stable appearance of the subpleural ill-defined consolidative opacity within right upper lobe associated with pleural thickening and sclerotic appearance of adjacent rib. Previously seen patchy consolidative opacity within posterior basal and medial basal segment of the right lower lobe is slightly enlarged since April 29, 2021 and could represent infectious/inflammatory process . There is minimal focal pleural effusion is seen on the right. Upper abdomen: For abdominal findings please see report of the CT of abdomen and pelvis performed the same time. Skeletal structures: Mild osteopenia and degenerative changes of the spine. IMPRESSION: 1. Mild interval worsening/enlargement of the ill-defined consolidative opacity within right base associated with minimal focal pleural effusion most likely representing infectious/inflammatory etiology or related to aspiration. Previously seen nodule is not well seen on current exam due to surrounding opacities. Follow-up evaluation is per clinical protocol. 2. Stable appearance of the subpleural consolidative opacity within right upper lobe associated with focal sclerotic rib lesion which is stable since recent prior. 3. Stable lymph nodes as detailed above. 4. Emphysema. ACT 112: Negative or not required by law. The above report was generated using voice recognition software. It may contain grammatical, syntax or spelling errors. Electronically signed by: Feli Hall DO 05/09/2021 5:05 PM ECG Data Indication: + syncope Rate (beats per minute): 69 Rhythm: + normal sinus ECG Intervals/blocks: + Normal QRS and + Normal QT ECG [place]: + Normal ECG ST segments: + Normal ST segments ECG Findings: + PVCs MDM Narrative This is an ill-appearing 66-year-old female with multiple chronic comorbidities who presents following low blood pressure in her doctor's office and syncopal event which ultimately resulted in several chest compressions as they were unable to initially feel her pulse. Patient woke up and was neurologically intact very quickly and I believe this was more a syncopal event than true cardiac arrest. Patient's daughter bedside did relay the patient has had lower blood pressure recently and she is typically poor about drinking water and has had decreased p.o. intake. I suspect this was more likely the cause of her low blood pressure. Patient did respond to IV fluids while in the emergency room. No ectopy or dysrhythmia noted on telemetry although patient was intermittently in a sinus bradycardia which may also have been a contributing factor. A sepsis evaluation was started on the patient and she was sent for neuroimaging in addition. Patient was rechecked multiple times by myself, no change in her exam, and as long as IV fluids were continuously given patient's blood pressure responded and improved maintaining a MAP greater than 65. After 3 L of IV fl uids patient's blood pressure was maintaining, she was started on IV antibiotics for a urinary tract infection as well as a possible aspiration pneumonia as noted on CT. Patient's lactic acid reassuring. Cultures pending at this time. I do not suspect acute cholecystitis despite findings noted on CT is patient with no right upper quadrant or epigastric tenderness. Given patient's other comorbidities including chronic liver problems, I feel this is more likely a chronic or incidental finding. Patient does have chronic pancytopenia although today's counts did seem worse compared to prior. Patient with CKD in addition, I do not suspect this is related to evolving pyelonephritis. Patient's prior urine cultures were reviewed. Patient and family made aware of all results, verbalized understanding, and were in agreement with plan. Case discussed with hospitalist. An order was placed for continuous cardiac monitoring. The monitor shows a rate of _56__ with _sinus bradycardia__ rhythm. Impression & Plan Hypotension, Pancytopenia, Syncope, Acute UTI (urinary tract infection), Fatigue, Transaminitis, Bradycardia, Chronic kidney disease, stage III (moderate) Discharge Plan Visit Data Chief Complaint: Hypotension Stated Complaint: HYPOTENSION ED Provider: Florence Kulkarni ED Midlevel Provider: Leena Leblanc Discharge Problem: Hypotension, Pancytopenia, Syncope, Acute UTI (urinary tract infection), Fatigue, Transaminitis, Bradycardia, Chronic kidney disease, stage III (moderate) Patient Disposition: Admitted As Inpatient Discharge Instructions Interventions: ED Discharge Assessment Last Done: 05/09/21 20:30 Resident Activity Tracking Resident Involvement: Resident Care Provided Care Provided: Adult ED (Patient seen with attending provider. Please see their documentation for MDM.)
[2021-05-09 15:31] LABS: Mean Platelet Volume 10.5 fL (7.4-10.4); Platelet Count 64 K/uL (130-400)
[2021-05-09 15:34] LABS: Eosinophils # (auto) 0.09 K/uL (0-0.5); Eosinophils % (auto) 3.2 %; Lymphocytes # (auto) 1.08 K/uL (1.2-3.4); Lymphocytes % (auto) 38.7 %; Monocytes # (auto) 0.49 K/uL (0.11-0.59); Monocytes % (auto) 17.6 %; Neutrophils # (auto) 1.13 K/uL (1.4-6.5); Neutrophils % (auto) 40.5 %
[2021-05-09] MEDS ORDERED: diphenhydrAMINE 50 MG/ML VIAL IV STA (16:19)
[2021-05-09] MEDS ORDERED: OPTIRAY 320 100ml IV ONE (16:40)
[2021-05-09 16:50] LABS: Troponin I < 0.015 ng/ml (0-0.045)
[2021-05-09 17:00] LABS: Appearance Urine Cloudy (Clear); Bacteria Urine Automated Negative (Negative); Bilirubin Urine Negative (Negative); Blood Urine 3+ (Negative); Color Urine Dark Yellow; Epithelial Cell Urine Auto 20-30 /lpf (0-5); Glucose Urine UA Negative (Negative); Ketones Urine Negative (Negative); Leukocyte Esterase Urine 3+ (Negative); Nitrite Urine Negative (Negative); RBC Urine Automated >30 /hpf (0-4); Urobilinogen Urine Negative (Negative); WBC Urine Automated >30 /hpf (0-5); pH Urine 7.5 (4.5-7.5)
--- NOTE | 2021-05-09 17:06 | CT Scan Report ---
CT OF THE CHEST WITH IV CONTRAST CLINICAL HISTORY: hx lymphoma, lung cancer, AMS COMPARISON STUDY: April 29, 2021 TECHNIQUE: Following the IV administration of 94 mL of Optiray, CT of the thorax was performed from the thoracic inlet to the lung bases. Images are reviewed in the axial, sagittal, and coronal planes. IV contrast was administered without complication. A dose lowering technique was utilized adhering to the principles of ALARA. CT DOSE: FINDINGS: There is no axillary, supra clavicle or internal mammary lymphadenopathy seen. There are a few perica rdial lymph nodes are seen, stable since recent prior study and measuring less than 1 cm in short axi s. Multiple mottled mediastinal lymph nodes are again seen measuring up to 1.3 cm within precarinal r egion, stable since prior. Thyroid: Imaged portions of the thyroid gland are normal in appearance. Thoracic aorta: The thoracic aorta is normal in course and caliber, noting standard 3-vessel arch rossana priyank. No aneurysm or dissection is seen. Pulmonary vasculature: Main pulmonary artery is is not dilated. HEART: The heart is normal in size and configuration. Trace pericardial effusion and moderate coronar y calcifications are seen. Lungs and pleural spaces: Tracheobronchial tree is patent. Evaluation of lung parenchyma is slightly limited due to respiratory motion artifact. There is moderate centrilobular and paraseptal upper lobe predominant emphysema. Stable appearance of the subpleural ill-defined consolidative opacity within right upper lobe associa mireya with pleural thickening and sclerotic appearance of adjacent rib. Previously seen patchy consolidative opacity within posterior basal and medial basal segment of the r ight lower lobe is slightly enlarged since April 29, 2021 and could represent infectious/inflammatory p rocess . There is minimal focal pleural effusion is seen on the right. Upper abdomen: For abdominal findings please see report of the CT of abdomen and pelvis performed th e same time. Skeletal structures: Mild osteopenia and degenerative changes of the spine. IMPRESSION: 1. Mild interval worsening/enlargement of the ill-defined consolidative opacity within right base as sociated with minimal focal pleural effusion most likely representing infectious/inflammatory etiolog y or related to aspiration. Previously seen nodule is not well seen on current exam due to surroundin g opacities. Follow-up evaluation is per clinical protocol. 2. Stable appearance of the subpleural consolidative opacity within right upper lobe associated with focal sclerotic rib lesion which is stable since recent prior. 3. Stable lymph nodes as detailed above. 4. Emphysema. ACT 112: Negative or not required by law. The above report was generated using voice recognition software. It may contain grammatical, syntax o r spelling errors. Electronically signed by: Feli Hall DO 05/09/2021 5:05 PM
[2021-05-09 17:10] LABS: Protein Urine 3+ (Negative)
[2021-05-09] MEDS ORDERED: PIPERACILL/TAZOBAC CONSULT ACTIVE PRN ×2 (17:16→21:14)
[2021-05-09] MEDS ORDERED: PIPERACILLIN/TAZOBACTAM 4.5 GM/120 ML BAG IV ONE (17:16)
--- NOTE | 2021-05-09 17:21 | CT Scan Report ---
CT abd pelvis IV con only CLINICAL HISTORY: hypotension, BL stents COMPARISON STUDY: December 10, 2020 TECHNIQUE: A dose lowering technique was utilized adhering to the principles of ALARA. CT DOSE: 456.45 mGy.cm FINDINGS: Liver: The contrast-enhanced liver is normal in size, contour, and attenuation. There is no intrahepa tic biliary ductal dilatation. The hepatic veins and portal veins are patent. Gallbladder: Is fluid-filled with prominent mucosal enhancement and mild surrounding pericholecystic edema. Previously seen gallstone is poorly demonstrated on current exam which could be due to intrave nous contrast administration. Spleen: Normal in size and attenuation. Pancreas: Is slightly atrophic. No definite pancreatic lesion is seen. Adrenal glands: Unremarkable. Kidneys: Mild bilateral hydronephrosis is seen. Right and left double-J stents are in stable position .Stable small left renal cyst. Pelvic viscera: Urinary bladder is fluid-filled, and contain distal aspect of the urinary stents. [place] anushka is atrophic, previously seen cystic lesion within right posterior pelvis now appear on the contra lateral side. Bowel: Bowel loops are nondilated. Appendix is not definitely seen. Peritoneum: There is no intraperitoneal free air or abdominal ascites. Vasculature: Abdominal aorta is nondilated. Distal aspect of infrarenal aorta and bilateral iliac art eries are heavily calcified with possible luminal narrowing of the distal portion of abdominal aorta measuring 6 mm in diameter. Adenopathy: Multiple mottled retroperitoneal lymph nodes are seen. Skeletal structures: Mild degenerative changes of the spine. No definite destructive osseous lesions are seen. IMPRESSION: 1. Stable position of bilateral urinary stents. Mild bilateral hydronephrosis. 2. Questionable pericholecystic edema and mucosal enhancement of the gallbladder. Please correlate a [place]-mentioned findings with clinical presentation of cholecystitis. 3. Stenosis of the distal aspect of abdominal aorta. Prominent calcified plaques. 4. Previously seen cystic lesion within inferior posterior right pelvis now appear on the contralate ral side and might represent adnexal cyst versus other etiology. 5. Multiple mottled retroperitoneal lymph nodes, stable since prior. ACT 112: Negative or not required by law. The above report was generated using voice recognition software. It may contain grammatical, syntax o r spelling errors. Electronically signed by: Feli Hall DO 05/09/2021 5:20 PM
--- NOTE | 2021-05-09 18:07 | History & Physical Report ---
Date of Service May 09, 2021 Assessment & Plan (1) Syncope: Plan: Patient most likely had a syncopal event while at her appointment. Concerning report of pulselessness preceded by feeling of SOB. Patient is HD stable while in the ER now -Telemetry monitoring -Carotid duplex -2D echo -Check orthostatic VS (2) Hypotension: Plan: Blood pressure WNL -Continue to monitor -Metoprolol may be continued with holding parameters (3) Recurrent deep venous thrombosis: Plan: Chronic -Continue Lovenox (4) COPD (chronic obstructive pulmonary disease): Plan: Chronic -Continue Symbicort -Albuterol PRN (5) Depression: Plan: Chronic. -Continue Sertraline (6) UTI (urinary tract infection): Plan: Patient reports dysuria. Also with suprapubic tenderness -Follow cultures -Zosyn (7) Right lower lobe consolidation: Plan: Possible PNA -Check procalcitonin -Zosyn -Follow cultures Admission and Anticipated Discharge Date Admission Date: F/E/N - s/p 3L in ER, monitor electrolytes, check Mg and PO4 x 1, Regular diet as tolerated Ppx - On Lovenox for history of hypercoag Code - Full Dispo -Medical with telemetry History of Present Illness Chief Complaint: syncope Primary Care Provider: Reynold Villegas MD Aleja Duron is a 66yo female with multiple medical problems presenting with possibly syncopal/vasovagal event. Patient was at the doctors today and she "didn't feel well", like "the blood was draining from her body". She was sitting in the exam room and started grabbing her chest and stating that she felt like she couldn't breathe. She became slightly less responsive and briefly dysarthric then had a possible syncopal event where her eyes rolled back and she became unresponsive. She was placed on the floor by medical staff and, by report, was pulseless. She received chest compressions x 5 then woke up. She was placed on O2 and EMS was called to transport her to the ER. By report, patient bradycardic with HR in 30's and hypotensive. Upon arrival patient afebrile, HD stable, NAD. She reports occasional chills as well as dysuria. She also reports ongoing fatigue and some achiness and malaise. She also has lower abdominal cramping discomfort ongoing for the last year and diarrhea. Otherwise she denies fevers, sweats, nausea, vomiting, flank pain. ER Course: 3L NSS, Zosyn , Benadryl Allergies Allergy/AdvReac Type Severity Reaction Status Date / Time bee venom protein (honey bee) Allergy Severe Difficulty Verified 05/09/21 15:33 Breathing Iodinated Contrast Media Allergy Intermediate Hives Verified 05/09/21 15:33 iodine Allergy Intermediate HIVES Verified 05/09/21 15:33 levofloxacin Allergy Intermediate numbness/we Verified 05/09/21 15:33 akness pregabalin Allergy Intermediate fever?/?cher Verified 05/09/21 15:33 h strawberry Allergy Intermediate HIVES Verified 05/09/21 15:33 Sulfa (Sulfonamide Allergy Intermediate RASH/HIVES Verified 05/09/21 15:33 Antibiotics) allopurinol Allergy Mild rash Verified 05/09/21 15:33 venlafaxine Allergy Unknown UNKNOWN Verified 05/09/21 15:33 gluten AdvReac Severe Celiac Dz Verified 05/09/21 15:33 = GI symptoms adhesive AdvReac Intermediate red torn Verified 05/09/21 15:33 skin propoxyphene AdvReac Intermediate COGNOS BI DEVELOPER side Verified 05/09/21 15:33 effects Home Medications Medication Instructions Recorded Confirmed Type butorphanol 10 mg/mL nasal spray 1 spray INTRANASAL Q3H PRN 07/16/18 05/09/21 History cetirizine 10 mg tablet (Zyrtec) 10 mg PO QAM 07/16/18 05/09/21 History coenzyme Q10 100 mg capsule 100 mg PO QAM 07/16/18 05/09/21 History (CoQ-10) folic acid 1 mg tablet 1 mg PO QAM 07/16/18 05/09/21 History magnesium oxide 400 mg PO QAM 07/16/18 05/09/21 History multivitamin 1 tab PO QAM 07/16/18 05/09/21 History triamcinolone acetonide 0.025 % 1 applic TOPICAL BID PRN 07/16/18 05/09/21 History topical cream vitamin B complex (B-Complex) 1 tab PO QAM 07/16/18 05/09/21 History calcium carbonate-vitamin D3 600 1 tab PO QPM 11/26/18 05/09/21 History mg (1,500 mg)-800 unit tablet (Caltrate with Vitamin D3) cyanocobalamin (vitamin B-12) 1,000 mcg IM MONTHLY 02/10/19 05/09/21 History 1,000 mcg/mL injection solution ferrous sulfate 325 mg (65 mg 325 mg PO QAM 02/10/19 05/09/21 History iron) tablet (iron) psyllium husk 0.52 gram capsule 1.04 g PO QAM 08/28/19 05/09/21 History (Metamucil) vitamin E 400 unit capsule 400 unit PO QAM 08/28/19 05/09/21 History Medical Marijuana 1 drp SUBLINGUAL BID 06/27/20 05/09/21 History mirabegron 50 mg tablet,extended 50 mg PO HS #90 tab 07/13/20 05/09/21 Rx release 24 hr (Myrbetriq) elrcmcqwdw-jrwvucudtylrv-zofvzsjj See Rx Instructions .ROUTE 10/07/20 05/09/21 Rx 50 mg-325 mg-40 mg tablet (Esgic) .COMPLEX PRN #12 tab metoprolol succinate 50 mg 50 mg PO QAM #30 tab 12/01/20 05/09/21 Rx tablet,extended release 24 hr denosumab 60 mg/mL subcutaneous 60 mg SUBCUT .q 6 months ml 12/17/20 05/09/21 History syringe (Prolia) topiramate 100 mg tablet (Topamax) 100 mg PO .COMPLEX 30 Days #90 tab 12/29/20 05/09/21 Rx acetaminophen 500 mg capsule 500 mg PO QID PRN 01/24/21 05/09/21 History doxycycline hyclate 100 mg capsule 100 mg PO QAM #30 cap 01/27/21 05/09/21 Rx gabapentin 400 mg capsule 400 mg PO QAM 30 Days #30 cap 01/27/21 05/09/21 Rx (Neurontin) potassium chloride 20 mEq 20 meq PO QAM #30 tab 01/27/21 05/09/21 Rx tablet,extended release oxybutynin chloride 10 mg 10 mg PO QAM #90 tab 01/31/21 05/09/21 Rx tablet,extended release 24 hr L.acidophilus-B.lactis-B.longum 15 1 cap PO QAM 02/03/21 05/09/21 History billion cell capsule acyclovir 400 mg tablet 400 mg PO BID #60 tab 02/25/21 05/09/21 Rx quetiapine 50 mg tablet (Seroquel) 50 mg PO HS #30 tab 02/25/21 05/09/21 Rx cephalexin 500 mg capsule 500 mg PO QAM #30 cap 02/28/21 05/09/21 Rx enoxaparin 30 mg/0.3 mL 30 mg SUBCUT DAILY #30 syr 02/28/21 05/09/21 Rx subcutaneous syringe ergocalciferol (vitamin D2) 1,250 50,000 unit PO WEEKLY #12 cap 02/28/21 05/09/21 Rx mcg (50,000 unit) capsule budesonide-formoterol HFA 80 2 puff INHALATION BID #10.2 g 03/16/21 05/09/21 Rx mcg-4.5 mcg/actuation aerosol inhaler (Symbicort) sertraline 50 mg tablet 50 mg PO DAILY #30 tab 03/25/21 05/09/21 Rx vancomycin 125 mg capsule 125 mg PO 2XWK #30 cap 03/29/21 05/09/21 Rx albuterol sulfate 90 mcg/actuation 2 puff INHALATION QID PRN #8.5 gm 04/22/21 05/09/21 Rx aerosol inhaler (ProAir HFA) clonazepam 1 mg tablet 1 mg PO HS #30 tab 04/22/21 05/09/21 Rx methocarbamol 750 mg tablet See Rx Instructions .ROUTE 05/09/21 05/09/21 History .COMPLEX PRN rizatriptan 10 mg tablet 10 mg PO DAILY PRN 05/09/21 05/09/21 History Past Med/Surg History Medical History Acute hypercapnic respiratory failure Acute UTI chronic /recurrent> finished Cefdinir 01/11/21 Asthma rare res inh use Bilateral hydronephrosis Celiac disease Cellulitis RECURRENT B/L LE - ON PROPHYLACTIC ABX (FOLLOWS W/ DR. BAUM). On chronic Cephalexin and Doxy Chronic back pain Chronic hypoxemic respiratory failure ON 2L O2 CONT. Chronic kidney disease STAGE III > follows Dr. Fleming Chronic obstructive pulmonary disease EMPHYSEMA ON O2 2L CONTINUOUS Chronic venous stasis WITH DERMATITIS AND RECURRENT CELLULITIS Cirrhosis of liver Hx of Hep C with cirrhosis Clostridium difficile colitis Depression Fatigue Heart palpitations no issues with presently Hx MRSA infection several yrs ago Hx of cancer of lung 2012> TREATED with radiation Dx'ed again in 06/2020 in [facility]- tx'ed with XRT - follows with heme/onc Follow up PET scan January 2021 per patient Hx of Clostridium difficile infection on Vanco 2xw prophylactic Hx of deep venous thrombosis left leg > 1977 Hx of hepatitis C 2013 > resolved Hx of non-Hodgkin's lymphoma finished treatment in 2013 Hydronephrosis B/L CHRONIC HYDRONEPHROSIS REQUIRING ROUTINE STENT EXCHANGES Hyperlipidemia Insomnia Lethargy Migraine Mood disorder Obstructive sleep apnea On home oxygen therapy 2L continuous Osteoporosis Polypharmacy Poor historian due to hx stroke Prediabetes diet control Primary hypercoagulable state 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 follows Dr. Pagan > Lovenox Thrombocytopenia CHRONIC Unintentional weight loss Surgical History H/O bursectomy RIGHT KNEE History of bone marrow biopsy History of bronchoscopy History of carpal tunnel release LEFT History of cystoscopy most recent 08/2020 Bilateral Retrograde Pyelogram, and Bilateral Ureteral Stent Exchange History of esophagogastroduodenoscopy (EGD) History of liver biopsy History of tooth extraction History of ureter stent MULTIPLE History of ureter stent Hx of bladder repair surgery FOR PROLAPSE Hx of colonoscopy Hx of tonsillectomy Hx of tubal ligation Family History Unknown Heart disease Hypertension Mother Psoriasis Diabetes Social History Smoking Status: Never smoker Tobacco Type: Cigarettes Cigarettes Per Day: stopped february 2011; Second Hand Exposure: No; Hx Alcohol Use: No Hx Substance Use: Yes Last Used Substance: Just Prior to Arrival Last Used Substance Other:: this am Substance Use Type Other:: medical marijuana card Preferred Language: Arabic Communication Ability: Effective Visual Impairment: No Limitations Hearing Ability: Normal Php Engineer Required: No Beliefs That Will Affect Care: None Current Living Situation: Family Current Living Situation Comment: son and DIL Feels Safe at Home: Yes Assistive Devices: Denture - Upper, Denture - Lower and Glasses Review of Systems Review of Systems: General: Patient denies fevers, weight loss or weight gain Skin: Patient denies bruising, bleeding or rash HEENT: Patient denies headache, visual changes, sore throat, difficulty swallowing, stiff neck Cardio: Patient denies chest pain, palpitations, shortness of breath, lightheadedness Pulmonary: Patient denies cough, wheeze GI: Patient denies, nausea, diarrhea, constipation : Patient denies frequency, urgency or hematuria Musculoskeletal: Patient denies swelling or pain of the joints, edema Neuro: Patient denies numbness, tingling, weakness or falls Psych: Patient denies depression, anxiety Physical Exam Physical Exam: General: patient resting comfortably, NAD, non-toxic in appearance, AA&O x 4, chronically ill in appearance Skin: warm, dry, intact, no rashes or lesions HEENT: NC/AT, PERRL, EOMI, anicteric sclera, conjunctiva without injection, external ear normal to inspection and nontender, nares patent, moist mucus membranes, dentition intact, no oropharyngeal lesions, neck supple, trachea midline, no LAD, no thyromegaly, no JVD Heart: +S1/S2, regular, no m/r/g Lungs: equal air entry bilaterally, no rhonchi/wheezes, +crackles in R[facility] Abd: +BS, soft, ND, tender in lower abdomen and suprapubic region with no rebound, no masses/organomegaly/ascites Ext: warm, 2+ pulses in UE/LE bilaterally, no clubbing/cyanosis or edema Neuro: nonfocal, patient AA&O x 4, speech intact, no facial droop, moving all extremities on command with equal strength 5/5 Results & Data Results & Data ([facility]) Vital Signs (Past 12 Hours) Vital Signs Temp Pulse Pulse Resp BP BP Pulse Ox 05/09/21 17:31 69 16 110/66 100 05/09/21 17:16 67 18 98/56 L 100 05/09/21 17:00 69 14 100 05/09/21 16:58 63 18 101/51 L 100 05/09/21 16:31 102 H 22 98 05/09/21 16:10 61 13 95/55 L 100 05/09/21 16:02 65 19 95 05/09/21 15:44 24 106/50 L 100 05/09/21 15:30 62 19 82/56 L 05/09/21 15:10 69 12 86/46 L 98 05/09/21 15:00 66 15 92/53 L 99 05/09/21 14:43 36.6 C 84 18 89/52 L 98 05/09/21 14:34 68 22 90/49 L 95 Laboratory Results Laboratory Results WBC 2.79 K/uL (4.8-10.8) L 05/09/21 14:40 RBC 2.59 M/uL (4.2-5.4) L 05/09/21 14:40 Hgb 8.8 g/dL (12.0-16.0) L 05/09/21 14:40 Hct 28.4 % (37-47) L 05/09/21 14:40 MCV 109.7 fL (80-100) H 05/09/21 14:40 MCH 34.0 pg (25-34) 05/09/21 14:40 MCHC 31.0 g/dL (32-36) L 05/09/21 14:40 RDW Std Deviation 55.3 fL (36.4-46.3) H 05/09/21 14:40 RDW Coeff of Irasema 13.9 % (11.5-14.5) 05/09/21 14:40 Plt Count 64 K/uL (130-400) L 05/09/21 14:40 MPV 10.5 fL (7.4-10.4) H 05/09/21 14:40 Immature Gran % (Auto) 0.0 % 05/09/21 14:40 Neut % (Auto) 40.5 % 05/09/21 14:40 Lymph % (Auto) 38.7 % 05/09/21 14:40 Nicholas % (Auto) 17.6 % 05/09/21 14:40 Eos % (Auto) 3.2 % 05/09/21 14:40 Baso % (Auto) 0.0 % 05/09/21 14:40 Neut # (Auto) 1.13 K/uL (1.4-6.5) L 05/09/21 14:40 Lymph # (Auto) 1.08 K/uL (1.2-3.4) L 05/09/21 14:40 Nicholas # (Auto) 0.49 K/uL (0.11-0.59) 05/09/21 14:40 Eos # (Auto) 0.09 K/uL (0-0.5) 05/09/21 14:40 Baso # (Auto) 0.00 K/uL (0-0.2) 05/09/21 14:40 Immature Gran # (Auto) 0.00 K/uL (0.00-0.02) 05/09/21 14:40 Sodium 147 mmol/L (136-145) H 05/09/21 14:40 Potassium 4.5 mmol/L (3.5-5.1) 05/09/21 14:40 Chloride 116 mmol/L (98-107) H 05/09/21 14:40 Carbon Dioxide 29 mmol/L (21-32) 05/09/21 14:40 Anion Gap 2.0 (3-11) L 05/09/21 14:40 BUN 27 mg/dl (7-18) H 05/09/21 14:40 Creatinine 1.46 mg/dl (0.6-1.2) H 05/09/21 14:40 Est Cr Clr Drug Dosing 26.9 ml/min 05/09/21 14:40 Est GFR ( Amer) 43.0 ml/min 05/09/21 14:40 Est GFR (Non-Af Amer) 37.1 ml/min 05/09/21 14:40 BUN/Creatinine Ratio 18.8 (10-20) 05/09/21 14:40 Glucose 101 mg/dl (70-99) H 05/09/21 14:40 Lactate 1.0 mmol/L (0.4-2.0) 05/09/21 15:36 Calcium 8.3 mg/dl (8.5-10.1) L 05/09/21 14:40 Total Bilirubin 0.2 mg/dl (0.2-1) 05/09/21 14:40 AST 78 U/L (15-37) H 05/09/21 14:40 ALT 145 U/L (12-78) H 05/09/21 14:40 Alkaline Phosphatase 80 U/L (45-117) 05/09/21 14:40 Troponin I < 0.015 ng/ml (0-0.045) 05/09/21 14:40 Total Protein 5.5 gm/dl (6.4-8.2) L 05/09/21 14:40 Albumin 2.8 gm/dl (3.4-5.0) L 05/09/21 14:40 Globulin 2.7 gm/dl (2.5-4.0) 05/09/21 14:40 Albumin/Globulin Ratio 1.0 (0.9-2) 05/09/21 14:40 Urine Color Dark Yellow 05/09/21 Unknown Urine Appearance Cloudy (Clear) A 05/09/21 Unknown Urine pH 7.5 (4.5-7.5) 05/09/21 Unknown Ur Specific [place] 1.020 (1.000-1.030) 05/09/21 Unknown Urine Protein 3+ (Negative) H 05/09/21 Unknown Urine Glucose (UA) Negative (Negative) 05/09/21 Unknown Urine Ketones Negative (Negative) 05/09/21 Unknown Urine Blood 3+ (Negative) H 05/09/21 Unknown Urine Nitrite Negative (Negative) 05/09/21 Unknown Urine Bilirubin Negative (Negative) 05/09/21 Unknown Urine Urobilinogen Negative (Negative) 05/09/21 Unknown Ur Leukocyte Esterase 3+ (Negative) H 05/09/21 Unknown Urine WBC (Auto) >30 /hpf (0-5) H 05/09/21 Unknown Urine RBC (Auto) >30 /hpf (0-4) H 05/09/21 Unknown U Hyaline Cast (Auto) 1-5 /lpf (0-5) 05/09/21 Unknown U Epithel Cells (Auto) 20-30 /lpf (0-5) H 05/09/21 Unknown Urine Bacteria (Auto) Negative (Negative) 05/09/21 Unknown Nasal Screen MRSA (PCR) Negative (Negative) 05/09/21 17:22 COVID-19 Eval Order Covid19 at [facility] 05/09/21 17:23 SARS-CoV-2 (PCR) NEGATIVE (Negative) 05/09/21 17:23 Impressions Abdomen/Pelvis CT 05/09/21 16:19 CT abd pelvis IV con only CLINICAL HISTORY: hypotension, BL stents COMPARISON STUDY: December 10, 2020 TECHNIQUE: A dose lowering technique was utilized adhering to the principles of ALARA. CT DOSE: 456.45 mGy.cm FINDINGS: Liver: The contrast-enhanced liver is normal in size, contour, and attenuation. There is no intrahepatic biliary ductal dilatation. The hepatic veins and portal veins are patent. Gallbladder: Is fluid-filled with prominent mucosal enhancement and mild surrounding pericholecystic edema. Previously seen gallstone is poorly demonstrated on current exam which could be due to intravenous contrast administration. Spleen: Normal in size and attenuation. Pancreas: Is slightly atrophic. No definite pancreatic lesion is seen. Adrenal glands: Unremarkable. Kidneys: Mild bilateral hydronephrosis is seen. Right and left double-J stents are in stable position.Stable small left renal cyst. Pelvic viscera: Urinary bladder is fluid-filled, and contain distal aspect of the urinary stents. Uterus is atrophic, previously seen cystic lesion within right posterior pelvis now appear on the contralateral side. Bowel: Bowel loops are nondilated. Appendix is not definitely seen. Peritoneum: There is no intraperitoneal free air or abdominal ascites. Vasculature: Abdominal aorta is nondilated. Distal aspect of infrarenal aorta and bilateral iliac arteries are heavily calcified with possible luminal narrowing of the distal portion of abdominal aorta measuring 6 mm in diameter. Adenopathy: Multiple mottled retroperitoneal lymph nodes are seen. Skeletal structures: Mild degenerative changes of the spine. No definite destructive osseous lesions are seen. IMPRESSION: 1. Stable position of bilateral urinary stents. Mild bilateral hydronephrosis. 2. Questionable pericholecystic edema and mucosal enhancement of the gallbladder. Please correlate above-mentioned findings with clinical presentation of cholecystitis. 3. Stenosis of the distal aspect of abdominal aorta. Prominent calcified plaques. 4. Previously seen cystic lesion within inferior posterior right pelvis now appear on the contralateral side and might represent adnexal cyst versus other etiology. 5. Multiple mottled retroperitoneal lymph nodes, stable since prior. ACT 112: Negative or not required by law. The above report was generated using voice recognition software. It may contain grammatical, syntax or spelling errors. Electronically signed by: Feli Hall DO 05/09/2021 5:[address] 05/09/21 16:19 CT OF THE CHEST WITH IV CONTRAST CLINICAL HISTORY: hx lymphoma, lung cancer, AMS COMPARISON STUDY: April 29, 2021 TECHNIQUE: Following the IV administration of 94 mL of Optiray, CT of the thorax was performed from the thoracic inlet to the lung bases. Images are reviewed in the axial, sagittal, and coronal planes. IV contrast was administered without complication. A dose lowering technique was utilized adhering to the principles of ALARA. CT DOSE: FINDINGS: There is no axillary, supra clavicle or internal mammary lymphadenopathy seen. There are a few pericardial lymph nodes are seen, stable since recent prior study and measuring less than 1 cm in short axis. Multiple mottled mediastinal lymph nodes are again seen measuring up to 1.3 cm within precarinal region, stable since prior. Thyroid: Imaged portions of the thyroid gland are normal in appearance. Thoracic aorta: The thoracic aorta is normal in course and caliber, noting standard 3-vessel arch anatomy. No aneurysm or dissection is seen. Pulmonary vasculature: Main pulmonary artery is is not dilated. HEART: The heart is normal in size and configuration. Trace pericardial effusion and moderate coronary calcifications are seen. Lungs and pleural spaces: Tracheobronchial tree is patent. Evaluation of lung parenchyma is slightly limited due to respiratory motion artifact. There is moderate centrilobular and paraseptal upper lobe predominant emphysema. Stable appearance of the subpleural ill-defined consolidative opacity within right upper lobe associated with pleural thickening and sclerotic appearance of adjacent rib. Previously seen patchy consolidative opacity within posterior basal and medial basal segment of the right lower lobe is slightly enlarged since April 29, 2021 and could represent infectious/inflammatory process . There is minimal focal pleural effusion is seen on the right. Upper abdomen: For abdominal findings please see report of the CT of abdomen and pelvis performed the same time. Skeletal structures: Mild osteopenia and degenerative changes of the spine. IMPRESSION: 1. Mild interval worsening/enlargement of the ill-defined consolidative opacity within right base associated with minimal focal pleural effusion most likely representing infectious/inflammatory etiology or related to aspiration. Previously seen nodule is not well seen on current exam due to surrounding opacities. Follow-up evaluation is per clinical protocol. 2. Stable appearance of the subpleural consolidative opacity within right upper lobe associated with focal sclerotic rib lesion which is stable since recent prior. 3. Stable lymph nodes as detailed above. 4. Emphysema. ACT 112: Negative or not required by law. The above report was generated using voice recognition software. It may contain grammatical, syntax or spelling errors. Electronically signed by: Feli Hall DO 05/09/2021 5:05 PM Code Status & VTE Plan VTE Prophylaxis Plan VTE Prophylaxis will be ordered: Yes PG Care Time/CCT Total # of Minutes Spent Total Time Spent with Patient: Total time spent is greater than 50% in coordination of care (as documented) at patient's floor/unit and/or counseling patient: Coding Level of Care Code INT OBSERVATION CARE 50M LVL 2 Diagnoses Hypotension I95.9 Hypotension type: unspecified hypotension type Syncope R55 Syncope type: unspecified Recurrent deep venous thrombosis I82.409 COPD (chronic obstructive pulmonary disease) J44.9 Depression F32.9 UTI (urinary tract infection) N39.0 Right lower lobe consolidation J18.1 (1) Hypotension Hypotension type: unspecified hypotension type Qualified Code(s): I95.9 - Hypotension, unspecified (2) Syncope Syncope type: unspecified Qualified Code(s): R55 - Syncope and collapse
[2021-05-09] MEDS ORDERED: ONDANSETRON INJ 2 MG/ML 2 ML VIAL IV PRN (21:14)
[2021-05-09] MEDS ORDERED: DOCUSATE SODIUM 100 MG CAP PO PRN (21:14)
[2021-05-09] MEDS ORDERED: ALBUTEROL HFA 8 GM INHALER INH PRN (21:24)
[2021-05-09] MEDS ORDERED: RASPBERRY SYRUP 5 ML UDP PO SCH (22:00)
[2021-05-09] MEDS ORDERED: VANCOMYCIN HCL 125 MG/2.5ML SOLN PO SCH (22:00)
[2021-05-09] MEDS: clonazePAM 1 MG TAB PO SCH (22:20)
[2021-05-09] MEDS: METHOCARBAMOL 750 MG TABLET PO SCH (22:21)
[2021-05-09] MEDS: PIPERACILLIN/TAZOBACTAM 3.375 GM in DEXTROSE 5% 100 ML IV SCH (22:21)
[2021-05-09] MEDS: ACYCLOVIR 400 MG TAB PO SCH (22:22)
[2021-05-09 22:23] LABS: Magnesium 2.2 mg/dl (1.8-2.4); Phosphorus 3.8 mg/dl (2.5-4.9)
[2021-05-09] MEDS: QUEtiapine FUMARATE 25 MG TABLET PO SCH (22:23)
[2021-05-09] MEDS: MIRABEGRON ER 25 MG TAB PO SCH (22:23)
[2021-05-09] MEDS: TOPIRAMATE 100 MG TAB PO SCH (22:24)
--- NOTE | 2021-05-09 22:43 | Ultrasound Report ---
ULTRASOUND OF THE CAROTID ARTERIES CLINICAL HISTORY: Syncope COMPARISON STUDY: November 04, 2014 TECHNIQUE: Real-time, grayscale, and color Doppler sonography of the carotid arteries was performed. Imaging reviewed in the transverse and longitudinal planes. NASCET criteria was utilized for stenosis calcification. FINDINGS: There is heavy calcified atherosclerotic plaque present at the distal aspect of the right common gray tid artery near carotid bulb.. The peak systolic velocity within the right internal carotid artery is 60 cm/sec. The systolic velocity ratio of right internal to common carotid artery is 0.6. The peak systolic velocity within the left internal carotid artery is 77 cm/sec. The systolic velocity ratio left internal to common carotid artery is 0.8. Antegrade flow is seen in the vertebral arteries. The external carotid arteries are patent. Blood pressure in the right arm measured 126/69 mm/Hg. Blood pressure in the left arm measured 119/7 0 mm/Hg. IMPRESSION: No evidence of hemodynamically significant carotid stenosis. Mild atherosclerosis. ACT 112: Negative or not required by law. The above report was generated using voice recognition software. It may contain grammatical, syntax o r spelling errors. Electronically signed by: Feli Hall DO 05/09/2021 10:42 PM
[2021-05-10] MEDS: PIPERACILLIN/TAZOBACTAM 3.375 GM in DEXTROSE 5% 100 ML IV SCH ×2 (06:18→14:58)
[2021-05-10 08:12] LABS: Hemoglobin 10.6 g/dL (12.0-16.0); Mean Corpuscular Hemoglobin 34.1 pg (25-34); Mean Corpuscular Hgb Conc 31.2 g/dL (32-36); Mean Corpuscular Volume 109.3 fL (80-100); RDW Coefficient of Variation 14.1 % (11.5-14.5); RDW Standard Deviation 55.6 fL (36.4-46.3); Red Blood Count 3.11 M/uL (4.2-5.4); White Blood Count 3.64 K/uL (4.8-10.8)
[2021-05-10] MEDS: OXYBUTYNIN CHLORIDE XL 5 MG TABCR PO SCH (08:14)
[2021-05-10] MEDS: SERTRALINE HCL 50 MG TABLET PO SCH (08:14)
[2021-05-10] MEDS: GABAPENTIN 400 MG CAP PO SCH (08:14)
[2021-05-10 08:15] LABS: Mean Platelet Volume 10.7 fL (7.4-10.4); Platelet Count 60 K/uL (130-400)
[2021-05-10] MEDS: CETIRIZINE HCL 10 MG TABLET PO SCH (08:15)
[2021-05-10] MEDS: ENOXAPARIN INJ 30 MG/0.3 ML SYR SQ SCH (08:16)
[2021-05-10] MEDS: ACYCLOVIR 400 MG TAB PO SCH ×2 (08:16→21:44)
[2021-05-10] MEDS: TOPIRAMATE 100 MG TAB PO SCH ×2 (08:16→21:46)
[2021-05-10] MEDS: METHOCARBAMOL 750 MG TABLET PO SCH ×2 (08:16→21:45)
[2021-05-10] MEDS: FLUTICASONE/VILANTEROL 100/25MCG 14 PUFFS/INHALER INH SCH (08:18)
[2021-05-10 08:39] LABS: Alanine Aminotransferase 146 U/L (12-78); Albumin Level 2.8 gm/dl (3.4-5.0); Aspartate Aminotransferase 63 U/L (15-37); BUN Creatinine Ratio 17.2 (10-20); Blood Urea Nitrogen 21 mg/dl (7-18); Calcium 7.9 mg/dl (8.5-10.1); Carbon Dioxide 22 mmol/L (21-32); Chloride 119 mmol/L (98-107); Creatinine Clr Calc Pharmacy 33.9 ml/min; Est GFR (African American) 52.9 ml/min; Est GFR (Non-African American) 45.7 ml/min; Glucose 88 mg/dl (70-99); Potassium 4.3 mmol/L (3.5-5.1); Sodium 146 mmol/L (136-145)
[2021-05-10 08:40] LABS: Eosinophils # (auto) 0.11 K/uL (0-0.5); Immature Granulocytes # (auto) 0.01 K/uL (0.00-0.02); Immature Granulocytes % (auto) 0.3 %; Lymphocytes # (auto) 1.15 K/uL (1.2-3.4); Lymphocytes % (auto) 31.6 %; Monocytes # (auto) 0.31 K/uL (0.11-0.59); Monocytes % (auto) 8.5 %; Neutrophils # (auto) 2.06 K/uL (1.4-6.5); Neutrophils % (auto) 56.6 %
[2021-05-10 08:41] LABS: Alkaline Phosphatase 93 U/L (45-117); Bilirubin Direct < 0.1 mg/dl (0-0.2); Bilirubin,Total 0.3 mg/dl (0.2-1)
[2021-05-10] MEDS ORDERED: METOPROLOL SUCC 50MG EXT REL TAB PO SCH (09:00)
[2021-05-10] MEDS ORDERED: EUCERIN CR 120 GM JAR EXT PRN (10:10)
--- NOTE | 2021-05-10 10:13 | XCELERA ---
[id number]
[2021-05-10 10:16] LABS: iSTAT Arterial Blood Gas HCO3 23 meg/L (19-24); iSTAT Arterial Blood Gas pCO2 49 mmHg (35-46); iSTAT Arterial Blood Gas pH 7.28 (7.35-7.45); iSTAT Arterial Blood Gas pO2 177 mmHg (80-95); iSTAT Carbon Dioxide 24 mmol/L (24-31); iSTAT Hematocrit 23 % (37-47); iSTAT Hemoglobin 7.8 g/dl (12.0-16.0); iSTAT Potassium 4.1 mmol/L (3.3-5.0); iSTAT Sodium 147 mmol/L (135-144)
[2021-05-10 10:17] LABS: iSTAT Sample Type Arterial
[2021-05-10] MEDS: diphenhydrAMINE Capsule 25 MG CAP PO PRN ×2 (11:13→19:04)
[2021-05-10] MEDS ORDERED: SODIUM CHLORIDE 0.9% 1000ML 500 ML IV ONE (11:45)
--- NOTE | 2021-05-10 15:26 | Electrocardiogram Report ---
Test Reason : Blood Pressure : / mmHG Vent. Rate : 069 BPM Atrial Rate : 069 BPM P-R Int : 166 ms QRS Dur : 078 ms QT Int : 454 ms P-R-T Axes : 074 018 053 degrees QTc Int : 486 ms Poor data quality, interpretation may be adversely affected Sinus rhythm with frequent Premature ventricular complexes Possible Left atrial enlargement Borderline ECG When compared with ECG of 03-FEB-2021 14:49, Premature ventricular complexes are now Present QT has lengthened Confirmed by Shaheen Davalos ([id number]) on 05/10/2021 3:26:24 PM Referred By: Fatou Bell Confirmed By:Shaheen Davalos
--- NOTE | 2021-05-10 19:11 | Hospitalist Progress Note ---
Date of Service May 10, 2021 Assessment & Plan (1) Syncope: Plan: Patient most likely had a syncopal event while at her appointment. Concerning report of pulselessness preceded by feeling of SOB. -Telemetry monitoring - unremarkable, sinus rhythm -Carotid duplex, no hemodynamically significant stenosis -2D echo - no significant change since 2018 -Check orthostatic VS - suspect dehydration in setting of metoprolol use with PNA as cause (2) Hypotension: Plan: -Continue to monitor -discontinue further metoprolol (3) Recurrent deep venous thrombosis: Plan: Chronic -Continue Lovenox (4) COPD (chronic obstructive pulmonary disease): Plan: Chronic. No acute exacerbation suspected -Continue Symbicort -Albuterol PRN (5) Depression: Plan: Chronic. -Continue Sertraline (6) UTI (urinary tract infection): Plan: Patient reports dysuria. Also with suprapubic tenderness -Follow urine cultures -Zosyn (possible allergic reaction to this with itching although not severe, switch to ceftriaxone (7) Right lower lobe consolidation: Plan: Possible PNA -Procalcitonin negative -Zosyn, switch to ceftriaxone -Follow blood cultures (8) Transaminitis: Plan: ?shock to liver with hypotensive syncopal episode. Will continue to trend. Questionable pericholecystic edema and mucosal enhancement of the gallbladder on CT for no pain in this area. (9) Adnexal cyst: Plan: Incidentally seen on CT, follow up as outpatient Admission and Anticipated Discharge Date Admission Date: May 09, 2021 Subjective Syncopal event at doctors appointment. Reports no presyncope or syncope. Hypotensive after metoprolol given this morning but not significantly symptomatic with this (but also just lying in bed). Cr and BUN at baseline but increase Na and Cl suggest degree of dehydration on admission. She reports good control of her celiac gluten free diet although does note chronic diarrhea (no worse than usual). This is backed up by normal IgA TTG in June 2020. Review of Systems Review of Systems: All systems reviewed & are unremarkable except as noted in HPI & below Physical Exam Constitutional: WD/WN, vitals as above Eyes: + anicteric sclerae; normal pupil size ENMT: external ear and nose normal, oropharynx normal Respiratory: normal respiratory effort, lungs clear to auscultation Cardiovascular: RRR, no murmur, no edema Gastrointestinal (Abdomen): Inspection/Auscultation: abdomen normal to inspection; abdomen not distended Percussion/Palpation: + abdomen tender (mild suprapubic tenderness) and abdomen soft; no guarding, abdomen not rigid and no hepatosplenomegaly Musculoskeletal: no cyanosis or clubbing, extremities motor strength 5/5 Skin: no rashes, warm and dry Neurologic: moves all extremities and awake; not confused Psychiatric: A+Ox3, euthymic affect Genitourinary: no CVA tenderness Results & Data Results & Data ([facility]) Vital Signs (Past 12 Hours) Vital Signs Temp Pulse Pulse Resp BP BP Pulse Ox 05/10/21 18:37 36.9 C 74 18 106/64 100 05/10/21 15:50 36.4 C L 73 18 98/58 L 99 05/10/21 14:20 66 05/10/21 12:43 72 98/61 L 05/10/21 11:37 36.7 C 68 18 80/44 L 99 05/10/21 08:20 80 112/68 05/10/21 07:43 36.5 C 75 18 97/60 L 100 05/10/21 07:12 88 PG Care Time/CCT Total # of Minutes Spent Total Time Spent with Patient: Total time spent is greater than 50% in coordination of care (as documented) at patient's floor/unit and/or counseling patient: Coding Level of Care Code 50738 Subseq Obs Care Lvl 2 Diagnoses Syncope R55 Syncope type: unspecified Hypotension I95.9 Hypotension type: unspecified hypotension type Recurrent deep venous thrombosis I82.409 COPD (chronic obstructive pulmonary disease) J44.9 Depression F32.9 UTI (urinary tract infection) N39.0 Right lower lobe consolidation J18.1 Transaminitis R74.01 Adnexal cyst N94.9 (1) Syncope Syncope type: unspecified Qualified Code(s): R55 - Syncope and collapse (2) Hypotension Hypotension type: unspecified hypotension type Qualified Code(s): I95.9 - Hypotension, unspecified
[2021-05-10] MEDS: DEXTROSE 5% 1,000 ML IV SCH (19:38)
[2021-05-10] MEDS: ACETAMINOPHEN 500 MG TAB PO PRN (19:50)
[2021-05-10] MEDS: cefTRIAXone SODIUM 2,000 MG in DEXTROSE 5% 50 ML IV SCH (21:44)
[2021-05-10] MEDS: clonazePAM 1 MG TAB PO SCH (21:44)
[2021-05-10] MEDS: QUEtiapine FUMARATE 25 MG TABLET PO SCH (21:45)
[2021-05-10] MEDS: MIRABEGRON ER 25 MG TAB PO SCH (21:45)
[2021-05-11] MEDS: DEXTROSE 5% 1,000 ML IV SCH (03:31)
[2021-05-11] MEDS: diphenhydrAMINE Capsule 25 MG CAP PO PRN (03:43)
[2021-05-11] MEDS: ACETAMINOPHEN 500 MG TAB PO PRN (06:03)
[2021-05-11] MEDS: ENOXAPARIN INJ 30 MG/0.3 ML SYR SQ SCH (08:03)
[2021-05-11] MEDS: METHOCARBAMOL 750 MG TABLET PO SCH ×2 (08:03→21:41)
[2021-05-11] MEDS: OXYBUTYNIN CHLORIDE XL 5 MG TABCR PO SCH (08:03)
[2021-05-11] MEDS: SERTRALINE HCL 50 MG TABLET PO SCH (08:03)
[2021-05-11] MEDS: TOPIRAMATE 100 MG TAB PO SCH ×2 (08:03→21:41)
[2021-05-11] MEDS: GABAPENTIN 400 MG CAP PO SCH (08:03)
[2021-05-11] MEDS: FLUTICASONE/VILANTEROL 100/25MCG 14 PUFFS/INHALER INH SCH (08:03)
[2021-05-11] MEDS: CETIRIZINE HCL 10 MG TABLET PO SCH (08:03)
[2021-05-11] MEDS: ACYCLOVIR 400 MG TAB PO SCH ×2 (08:03→21:41)
[2021-05-11 12:51] LABS: Hematocrit (blood only) 34.8 % (37-47); Hemoglobin 11.3 g/dL (12.0-16.0); Mean Corpuscular Hgb Conc 32.5 g/dL (32-36); Mean Corpuscular Volume 107.7 fL (80-100); RDW Coefficient of Variation 13.8 % (11.5-14.5); RDW Standard Deviation 54.8 fL (36.4-46.3); Red Blood Count 3.23 M/uL (4.2-5.4); White Blood Count 4.61 K/uL (4.8-10.8)
[2021-05-11 13:16] LABS: Mean Platelet Volume 9.9 fL (7.4-10.4); Platelet Count 55 K/uL (130-400)
[2021-05-11 13:19] LABS: Eosinophils # (auto) 0.11 K/uL (0-0.5); Eosinophils % (auto) 2.4 %; Immature Granulocytes # (auto) 0.01 K/uL (0.00-0.02); Immature Granulocytes % (auto) 0.2 %; Lymphocytes # (auto) 0.81 K/uL (1.2-3.4); Lymphocytes % (auto) 17.6 %; Monocytes # (auto) 0.32 K/uL (0.11-0.59); Monocytes % (auto) 6.9 %; Neutrophils # (auto) 3.36 K/uL (1.4-6.5); Neutrophils % (auto) 72.9 %
[2021-05-11 13:47] LABS: Alanine Aminotransferase 95 U/L (12-78); Alkaline Phosphatase 86 U/L (45-117); Aspartate Aminotransferase 28 U/L (15-37); BUN Creatinine Ratio 11.6 (10-20); Bilirubin Direct < 0.1 mg/dl (0-0.2); Bilirubin,Total 0.3 mg/dl (0.2-1); Blood Urea Nitrogen 13 mg/dl (7-18); Calcium 7.8 mg/dl (8.5-10.1); Carbon Dioxide 20 mmol/L (21-32); Chloride 114 mmol/L (98-107); Est GFR (African American) 58.7 ml/min; Est GFR (Non-African American) 50.6 ml/min; Glucose 84 mg/dl (70-99); Potassium 3.6 mmol/L (3.5-5.1); Sodium 141 mmol/L (136-145); Total Protein 6.3 gm/dl (6.4-8.2)
[2021-05-11] MEDS: DOXYCYCLINE HYCLATE 100 MG CAP PO SCH ×2 (14:00→21:40)
[2021-05-11] MEDS: cefTRIAXone SODIUM 2,000 MG in DEXTROSE 5% 50 ML IV SCH (19:44)
[2021-05-11] MEDS: MIRABEGRON ER 25 MG TAB PO SCH (21:40)
[2021-05-11] MEDS: clonazePAM 1 MG TAB PO SCH (21:40)
[2021-05-11] MEDS: QUEtiapine FUMARATE 25 MG TABLET PO SCH (21:40)
--- NOTE | 2021-05-11 22:17 | Hospitalist Progress Note ---
Date of Service May 11, 2021 Assessment & Plan (1) Syncope: Plan: Patient most likely had a syncopal event while at her appointment. Concerning report of pulselessness preceded by feeling of SOB. -Telemetry monitoring - unremarkable, sinus rhythm -Carotid duplex, no hemodynamically significant stenosis -2D echo - no significant change since 2018 -Check orthostatic VS -suspect dehydration in setting of metoprolol use with PNA as cause (2) Right lower lobe consolidation: Plan: Possible PNA -Procalcitonin negative, will repeat today -unfortunately limited antibiotics as she chronically takes keflex and doxycycline. -Follow blood cultures (3) Hypotension: Plan: -Continue to monitor -discontinue further metoprolol (4) Recurrent deep venous thrombosis: Plan: Chronic -Continue Lovenox (5) COPD (chronic obstructive pulmonary disease): Plan: Chronic. No acute exacerbation suspected -Continue Symbicort -Albuterol PRN (6) Depression: Plan: Chronic. -Continue Sertraline (7) UTI (urinary tract infection): Plan: Patient reports dysuria. Also with suprapubic tenderness -Follow urine cultures - growing yeast, no symptoms related to this -Zosyn (possible allergic reaction to this with itching although not severe, switched to ceftriaxone) (8) Transaminitis: Plan: Improving ?shock to liver with hypotensive syncopal episode. Will continue to trend. Questionable pericholecystic edema and mucosal enhancement of the gallbladder on CT for no pain in this area. (9) Adnexal cyst: Plan: Incidentally seen on CT, follow up as outpatient Admission and Anticipated Discharge Date Admission Date: May 09, 2021 Subjective Reports not dizziness or presyncope today despite low blood pressures. Significantly tachycardic off metoprolol but not symptomatic with this and no palpitations. Occasional cough. No nasal congestion or shortness of breath. Her biggest concern is generalized itching, unsure if this got worse after Zosyn yesterday but appears to worse than her usual itching with just the hospital bed sheets. Review of Systems Review of Systems: All systems reviewed & are unremarkable except as noted in HPI & below Physical Exam Constitutional: WD/WN, vitals as above Eyes: + anicteric sclerae; normal pupil size ENMT: external ear and nose normal, oropharynx normal Respiratory: normal respiratory effort, lungs clear to auscultation Cardiovascular: RRR, no murmur, no edema Gastrointestinal (Abdomen): Inspection/Auscultation: abdomen normal to inspection; abdomen not distended Percussion/Palpation: + abdomen tender (mild suprapubic tenderness) and abdomen soft; no guarding, abdomen not rigid and no hepatosplenomegaly Musculoskeletal: no cyanosis or clubbing, extremities motor strength 5/5 Skin: no rashes, warm and dry Neurologic: moves all extremities and awake; not confused Psychiatric: A+Ox3, euthymic affect Genitourinary: no CVA tenderness Results & Data Results & Data ([facility]) Vital Signs (Past 12 Hours) Vital Signs Temp Pulse Pulse Resp BP BP Pulse Ox 05/11/21 19:00 36.6 C 99 H 16 98/59 L 95 05/11/21 15:20 93 H 05/11/21 15:14 36.5 C 95 H 20 99/62 L 100 05/11/21 11:00 36.4 C L 99 H 16 86/53 L 100 PG Care Time/CCT Total # of Minutes Spent Total Time Spent with Patient: Total time spent is greater than 50% in coordination of care (as documented) at patient's floor/unit and/or counseling patient: Coding Level of Care Code 23167 Subseq Obs Care Lvl 2 Diagnoses Syncope R55 Syncope type: unspecified Hypotension I95.9 Hypotension type: unspecified hypotension type Recurrent deep venous thrombosis I82.409 COPD (chronic obstructive pulmonary disease) J44.9 Depression F32.9 UTI (urinary tract infection) N39.0 Right lower lobe consolidation J18.1 Transaminitis R74.01 Adnexal cyst N94.9 (1) Syncope Syncope type: unspecified Qualified Code(s): R55 - Syncope and collapse (2) Hypotension Hypotension type: unspecified hypotension type Qualified Code(s): I95.9 - Hypotension, unspecified
[2021-05-12] MEDS: FLUTICASONE/VILANTEROL 100/25MCG 14 PUFFS/INHALER INH SCH (07:51)
[2021-05-12] MEDS: SERTRALINE HCL 50 MG TABLET PO SCH (07:52)
[2021-05-12] MEDS: OXYBUTYNIN CHLORIDE XL 5 MG TABCR PO SCH (07:53)
[2021-05-12] MEDS: METHOCARBAMOL 750 MG TABLET PO SCH ×2 (07:53→22:30)
[2021-05-12] MEDS: GABAPENTIN 400 MG CAP PO SCH (07:54)
[2021-05-12] MEDS: CETIRIZINE HCL 10 MG TABLET PO SCH (07:54)
[2021-05-12] MEDS: DOXYCYCLINE HYCLATE 100 MG CAP PO SCH ×2 (07:54→22:30)
[2021-05-12] MEDS: ACYCLOVIR 400 MG TAB PO SCH ×2 (07:55→22:31)
[2021-05-12] MEDS: TOPIRAMATE 100 MG TAB PO SCH ×2 (07:56→22:33)
[2021-05-12] MEDS: ENOXAPARIN INJ 30 MG/0.3 ML SYR SQ SCH (08:23)
[2021-05-12 08:24] LABS: Hematocrit (blood only) 32.2 % (37-47); Hemoglobin 10.4 g/dL (12.0-16.0); Mean Corpuscular Hemoglobin 34.9 pg (25-34); Mean Corpuscular Hgb Conc 32.3 g/dL (32-36); Mean Corpuscular Volume 108.1 fL (80-100); RDW Standard Deviation 55.3 fL (36.4-46.3); Red Blood Count 2.98 M/uL (4.2-5.4)
[2021-05-12 08:36] LABS: Mean Platelet Volume 9.8 fL (7.4-10.4); Platelet Count 46 K/uL (130-400)
[2021-05-12 08:42] LABS: Calcium 7.6 mg/dl (8.5-10.1); Creatinine Clr Calc Pharmacy 39.4 ml/min; Est GFR (African American) 63.4 ml/min; Est GFR (Non-African American) 54.7 ml/min; Potassium 3.5 mmol/L (3.5-5.1)
[2021-05-12 08:56] LABS: Eosinophils # (auto) 0.09 K/uL (0-0.5); Eosinophils % (auto) 2.4 %; Immature Granulocytes # (auto) 0.01 K/uL (0.00-0.02); Immature Granulocytes % (auto) 0.3 %; Lymphocytes % (auto) 35.1 %; Monocytes # (auto) 0.35 K/uL (0.11-0.59); Monocytes % (auto) 9.5 %; Neutrophils # (auto) 1.95 K/uL (1.4-6.5); Neutrophils % (auto) 52.7 %
--- NOTE | 2021-05-12 09:19 | XRay Report ---
XR chest 2V PA/lateral CLINICAL HISTORY: Pneumonia COMPARISON STUDY: 02/03/2021, CT scan dated 05/09/2021 FINDINGS: There is radiographic evidence of emphysema. The heart is normal in size.[Right upper lung zone calcifications correspond to sclerotic anterior rib lesions. There are linear scarlike densities present within the right upper lobe. There are patchy airspace opacities at the right lung base, lik sarah infectious/inflammatory. There are no large pleural effusions. There is no failure. There is part ial visualization of a left-sided nephroureteral stent IMPRESSION: 1. Patchy right lower lung zone airspace opacities suspicious for pneumonia. Clinical and radiographi c follow-up are recommended 2. Calcifications projected over the right upper lung zone which correspond to sclerotic rib lesions on the prior CT scan 3. Linear scarlike densities within the right upper lobe ACT 112: Negative or not required by law. Electronically signed by: Octavio Penny M.D. 05/12/2021 9:18 AM
[2021-05-12] MEDS ORDERED: ASPIRIN 81 MG CHEW PO STA (14:19)
--- NOTE | 2021-05-12 14:26 | Pulmonary Consultation ---
Date of Consultation May 12, 2021 Assessment & Plan (1) Right lower lobe consolidation: 66-year-old female with a history of marginal cell lymphoma, lung cancer x2 status post radiation most recently to the right lower lobe in the fall 2019 presenting to the hospital due to syncope. Right lower lobe consolidation: There have been some evolving changes in the right lower lobe with an increasing consolidation noted. The opacities are a bit unusual likely due to the underlying emphysema. She previously had radiation to this site in the fall 2019. These may represent evolving radiation changes. She is asymptomatic. In January I did have her in a prolonged steroid taper for possible radiation fibrosis/pneumonitis. I am going to recommend that she restart on the prednisone taper and I will start her on 30 mg prednisone. Please leave her on the 30 mg of prednisone for 5 days and then wean the prednisone by 5 mg every 3 days. I will see her back in the pulmonary clinic. I discussed other options with her including bronchoscopy to evaluate for infectious and malignant causes. I did note to her that the right lower lobe opacities can represent malignancy such as lymphangitic carcinomatosis. She would prefer a more conservative route such as prednisone therapy at this time. Follow-up imaging will need to be done in 2 to 3 weeks with chest x-ray. PET/CT imaging would likely not be helpful with regards to the right lower lobe density as FDG uptake would be very nonspecific at this point. Obstructive sleep apnea: She will need follow-up with the sleep medicine clinic. She does not have a CPAP device. Lower extremity redness and swelling: Suspect this is volume overload exacerbating underlying venous stasis dermatitis changes. I suggested a lower extremity Doppler to rule out DVT. Cellulitis seems less likely given the lack of fever or white count. Patient notes that she has a history of increased swelling and redness whenever she is in the hospital. Can consider evaluation by dermatology if redness worsens. Thank you for the consultation. Please call with questions. (2) History of lung cancer: (3) Obstructive sleep apnea: (4) Venous stasis dermatitis: History of Present Illness Reason for Consultation: Right lower lobe opacity noted on CT chest Attending Physician: Leeroy Brown MD History of Present Illness 66-year-old female with a history of marginal cell lymphoma diagnosed in 2012, squamous cell carcinoma of the right lung diagnosed in 2012 status post radiation and squamous cell carcinoma of the right lower lobe diagnosed in 2020 status post radiation who presented to the hospital on 05/09/2021 due to syncope. Thus far echocardiogram and carotid duplex has been unremarkable. She is on a number of sedating medications including medical marijuana that can contribute to lethargy and possibly syncope. I have noted this on several my previous outpatient pulmonary notes. She has a history of mild obstructive sleep apnea with an AHI of 8 noted on a sleep study from 04/20/2021. Last saw the patient in the pulmonary clinic on 03/16/2021. It was recommended that she wean down her oxygen to 1 L from 3 L/min. Pulmonary is consulted for a right lower lobe airspace opacity that was noted on a CT chest from 05/09/2021. This opacity has been described on numerous previous studies. Recall, that she does have a history of radiation to the right lower lobe for a malignant nodule. I have treated her in the past with prednisone for radiation pneumonitis in this region. She denies any respiratory symptoms on this admission. She notes that she has had chest pain in her left chest. 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 She has reproducible pain to the site after undergoing CPR. She is also being treated for possible cellulitis in the lower extremities. She notes that whenever she is in the hospital and she receives fluids, her legs swell and become more red. She has noted that she feels very tired. She feels that her appetite is good. She is unsure of whether she lost weight. Allergies Allergy/AdvReac Type Severity Reaction Status Date / Time bee venom protein (honey bee) Allergy Severe Difficulty Verified 05/09/21 15:33 Breathing Iodinated Contrast Media Allergy Intermediate Hives Verified 05/09/21 15:33 iodine Allergy Intermediate HIVES Verified 05/09/21 15:33 levofloxacin Allergy Intermediate numbness/we Verified 05/09/21 15:33 akness pregabalin Allergy Intermediate fever?/?cher Verified 05/09/21 15:33 h strawberry Allergy Intermediate HIVES Verified 05/09/21 15:33 Sulfa (Sulfonamide Allergy Intermediate RASH/HIVES Verified 05/09/21 15:33 Antibiotics) allopurinol Allergy Mild rash Verified 05/09/21 15:33 venlafaxine Allergy Unknown UNKNOWN Verified 05/09/21 15:33 gluten AdvReac Severe Celiac Dz Verified 05/09/21 15:33 = GI symptoms adhesive AdvReac Intermediate red torn Verified 05/09/21 15:33 skin propoxyphene AdvReac Intermediate STRIPE MATCHER side Verified 05/09/21 15:33 effects Home Medications Medication Instructions Recorded Confirmed Type butorphanol 10 mg/mL nasal spray 1 spray INTRANASAL Q3H PRN 07/16/18 05/09/21 History cetirizine 10 mg tablet (Zyrtec) 10 mg PO QAM 07/16/18 05/09/21 History coenzyme Q10 100 mg capsule 100 mg PO QAM 07/16/18 05/09/21 History (CoQ-10) folic acid 1 mg tablet 1 mg PO QAM 07/16/18 05/09/21 History magnesium oxide 400 mg PO QAM 07/16/18 05/09/21 History multivitamin 1 tab PO QAM 07/16/18 05/09/21 History triamcinolone acetonide 0.025 % 1 applic TOPICAL BID PRN 07/16/18 05/09/21 History topical cream vitamin B complex (B-Complex) 1 tab PO QAM 07/16/18 05/09/21 History calcium carbonate-vitamin D3 600 1 tab PO QPM 11/26/18 05/09/21 History mg (1,500 mg)-800 unit tablet (Caltrate with Vitamin D3) cyanocobalamin (vitamin B-12) 1,000 mcg IM MONTHLY 02/10/19 05/09/21 History 1,000 mcg/mL injection solution ferrous sulfate 325 mg (65 mg 325 mg PO QAM 02/10/19 05/09/21 History iron) tablet (iron) psyllium husk 0.52 gram capsule 1.04 g PO QAM 08/28/19 05/09/21 History (Metamucil) vitamin E 400 unit capsule 400 unit PO QAM 08/28/19 05/09/21 History Medical Marijuana 1 drp SUBLINGUAL BID 06/27/20 05/09/21 History mirabegron 50 mg tablet,extended 50 mg PO HS #90 tab 07/13/20 05/09/21 Rx release 24 hr (Myrbetriq) scvuafgfua-ldlpcsddujtda-fhjclams See Rx Instructions .ROUTE 10/07/20 05/09/21 Rx 50 mg-325 mg-40 mg tablet (Esgic) .COMPLEX PRN #12 tab metoprolol succinate 50 mg 50 mg PO QAM #30 tab 12/01/20 05/09/21 Rx tablet,extended release 24 hr denosumab 60 mg/mL subcutaneous 60 mg SUBCUT .q 6 months ml 12/17/20 05/09/21 History syringe (Prolia) topiramate 100 mg tablet (Topamax) 100 mg PO .COMPLEX 30 Days #90 tab 12/29/20 05/09/21 Rx acetaminophen 500 mg capsule 500 mg PO QID PRN 01/24/21 05/09/21 History doxycycline hyclate 100 mg capsule 100 mg PO QAM #30 cap 01/27/21 05/09/21 Rx gabapentin 400 mg capsule 400 mg PO QAM 30 Days #30 cap 01/27/21 05/09/21 Rx (Neurontin) potassium chloride 20 mEq 20 meq PO QAM #30 tab 01/27/21 05/09/21 Rx tablet,extended release oxybutynin chloride 10 mg 10 mg PO QAM #90 tab 01/31/21 05/09/21 Rx tablet,extended release 24 hr L.acidophilus-B.lactis-B.longum 15 1 cap PO QAM 02/03/21 05/09/21 History billion cell capsule acyclovir 400 mg tablet 400 mg PO BID #60 tab 02/25/21 05/09/21 Rx quetiapine 50 mg tablet (Seroquel) 50 mg PO HS #30 tab 02/25/21 05/09/21 Rx cephalexin 500 mg capsule 500 mg PO QAM #30 cap 02/28/21 05/09/21 Rx enoxaparin 30 mg/0.3 mL 30 mg SUBCUT DAILY #30 syr 02/28/21 05/09/21 Rx subcutaneous syringe ergocalciferol (vitamin D2) 1,250 50,000 unit PO WEEKLY #12 cap 02/28/21 05/09/21 Rx mcg (50,000 unit) capsule budesonide-formoterol HFA 80 2 puff INHALATION BID #10.2 g 03/16/21 05/09/21 Rx mcg-4.5 mcg/actuation aerosol inhaler (Symbicort) sertraline 50 mg tablet 50 mg PO DAILY #30 tab 03/25/21 05/09/21 Rx vancomycin 125 mg capsule 125 mg PO 2XWK #30 cap 03/29/21 05/09/21 Rx albuterol sulfate 90 mcg/actuation 2 puff INHALATION QID PRN #8.5 gm 04/22/21 05/09/21 Rx aerosol inhaler (ProAir HFA) clonazepam 1 mg tablet 1 mg PO HS #30 tab 04/22/21 05/09/21 Rx methocarbamol 750 mg tablet See Rx Instructions .ROUTE 05/09/21 05/09/21 History .COMPLEX PRN rizatriptan 10 mg tablet 10 mg PO DAILY PRN 05/09/21 05/09/21 History Patient History Medical History (Updated 05/12/21 @ 15:57 by Alex Sampson MD) Acute hypercapnic respiratory failure Acute UTI chronic /recurrent> finished Cefdinir 01/11/21 Asthma rare res inh use Bilateral hydronephrosis Celiac disease Cellulitis RECURRENT B/L LE - ON PROPHYLACTIC ABX (FOLLOWS W/ DR. BAUM). On chronic Cephalexin and Doxy Chronic back pain Chronic hypoxemic respiratory failure ON 2L O2 CONT. Chronic kidney disease STAGE III > follows Dr. Fleming Chronic obstructive pulmonary disease EMPHYSEMA ON O2 2L CONTINUOUS Chronic venous stasis WITH DERMATITIS AND RECURRENT CELLULITIS Cirrhosis of liver Hx of Hep C with cirrhosis Clostridium difficile colitis Depression Fatigue Heart palpitations no issues with presently History of lung cancer Hx MRSA infection several yrs ago Hx of cancer of lung 2012> TREATED with radiation Dx'ed again in 06/2020 in [facility]- tx'ed with XRT - follows with heme/onc Follow up PET scan January 2021 per patient Hx of Clostridium difficile infection on Vanco 2xw prophylactic Hx of deep venous thrombosis left leg > 1976 Hx of hepatitis C 2013 > resolved Hx of non-Hodgkin's lymphoma finished treatment in 2013 Hydronephrosis B/L CHRONIC HYDRONEPHROSIS REQUIRING ROUTINE STENT EXCHANGES Hyperlipidemia Insomnia Lethargy Migraine Mood disorder Obstructive sleep apnea On home oxygen therapy 2L continuous Osteoporosis Polypharmacy Poor historian due to hx stroke Prediabetes diet control Primary hypercoagulable state 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 follows Dr. Pagan > Lovenox Thrombocytopenia CHRONIC Unintentional weight loss Venous stasis dermatitis Surgical History H/O bursectomy RIGHT KNEE History of bone marrow biopsy History of bronchoscopy History of carpal tunnel release LEFT History of cystoscopy most recent 08/2020 Bilateral Retrograde Pyelogram, and Bilateral Ureteral Stent Exchange History of esophagogastroduodenoscopy (EGD) History of liver biopsy History of tooth extraction History of ureter stent MULTIPLE History of ureter stent Hx of bladder repair surgery FOR PROLAPSE Hx of colonoscopy Hx of tonsillectomy Hx of tubal ligation Family History Unknown Heart disease Hypertension Mother Psoriasis Diabetes Social History Smoking Status: Former smoker Tobacco Type: Cigarettes Cigarettes Per Day: stopped february 2011; Second Hand Exposure: Yes; Do You Dip or Chew Tobacco: No; Hx Alcohol Use: No Hx Substance Use: No Preferred Language: Faroese Communication Ability: Effective Visual Impairment: No Limitations Hearing Ability: Normal Life Care Planner Required: No Beliefs That Will Affect Care: None Current Living Situation: Family Current Living Situation Comment: Son and son's girlfriend Other Information That Helps Us Care for You: No Feels Safe at Home: Yes Safety Concerns: Feels Safe At This Time Assistive Devices: None Review of Systems Review of Systems: All systems reviewed & are unremarkable except as noted in HPI & below Physical Exam Physical Exam: Constitutional: Chronically ill-appearing female no apparent distress. Eyes: Pupils are equal round and reactive to light. Conjunctivae are normal. Anicteric sclera. Ears nose, mouth and throat: Normal posterior oropharynx. Uvula is midline. Neck: Trachea is midline. Visual inspection is normal. Respiratory: Mild crackles at the right lung base. No tachypnea. Cardiovascular: Regular rate and rhythm. No murmurs. 1+ pitting edema in the lower extremities bilaterally. Redness noted in the navarro area. Likely venous stasis dermatitis. Gastrointestinal: Normal bowel sounds, soft, nontender and nondistended. No hepatosplenomegaly noted. Musculoskeletal: No cyanosis. Patient is able to move all extremities. Strength is 5 out of 5 in the upper and lower extremities. Skin: Venous stasis dermatitis changes noted in the lower extremities bila terally. Neurologic: No obvious focal neurological deficits seen. Psychiatric: Alert and oriented x3 with a euthymic affect. Results & Data Results & Data ([facility]) Vital Signs (Past 12 Hours) Vital Signs Temp Pulse Resp BP BP Pulse Ox 05/12/21 11:57 98.2 F 64 18 104/70 95 05/12/21 07:53 98.1 F 97 H 18 95/59 L 100 05/12/21 03:02 98.1 F 116 H 20 109/[address] chest imaging reviewed personally. Labs reviewed as well. PG Care Time/CCT Total # of Minutes Spent Total Time Spent with Patient: Total time spent is greater than 50% in coordina tion of care (as documented) at patient's floor/unit and/or counseling patient: Coding Level of Care Code 13360 Initial Inpt Care Lvl 3 Diagnoses Right lower lobe consolidation J18.1 History of lung cancer Z85.118 Obstructive sleep apnea G47.33 Venous stasis dermatitis I87.2
[2021-05-12] MEDS: ADVANCED PROBIOTIC 1250 MG CAPSULE PO SCH (15:03)
[2021-05-12] MEDS: METOPROLOL SUCC 25MG EXT REL TAB PO SCH (15:04)
--- NOTE | 2021-05-12 15:57 | Ultrasound Report ---
BILATERAL LOWER EXTREMITY VENOUS DOPPLER CLINICAL HISTORY: Leg pain and discoloration. COMPARISON STUDY: Left lower extremity venous Doppler ultrasound August 10, 2020. Right lower extre mity venous Doppler ultrasound February 12, 2020. TECHNIQUE: Sonography of the deep venous system of the bilateral lower extremities was performed. Co mpression and augmentation were evaluated. FINDINGS: The bilateral common femoral, superficial femoral and popliteal veins were compressible. A ugmentation was normal. Flow was shown within the deep calf vessels. IMPRESSION: No evidence of deep venous thrombus within the bilateral lower extremities. ACT 112: Negative or not required by law. Electronically signed by: Juno Garcia M.D. 05/12/2021 3:56 PM
[2021-05-12] MEDS ORDERED: DAPTOmycin 200 MG in SYRINGE 0 ML IV SCH (16:00)
[2021-05-12] MEDS: predniSONE 10 MG TABLET PO SCH (17:48)
--- NOTE | 2021-05-12 22:30 | Hospitalist Progress Note ---
Date of Service May 12, 2021 Assessment & Plan (1) Chest pain: Plan: Low suspicion of ACS given lack of EKG changes and reproducibility on exam. EKG with no ischemic changes ASA 324mg PO now Serial troponins (2) Leg erythema: Plan: Concerning for cellulitis but given no significant WBC, procalcitonin negative, no fever/chills and usually occurs without wearing stocking would favor venous dermatitis at the present time and monitor If febrile, WBC or erythema getting worse will start on daptomycin and get ID consult. (3) Syncope: Plan: Patient most likely had a syncopal event while at her appointment. Concerning report of pulselessness preceded by feeling of SOB. -Telemetry monitoring - unremarkable, sinus rhythm -Carotid duplex, no hemodynamically significant stenosis -2D echo - no significant change since 2018 -Check orthostatic VS -suspect dehydration in setting of metoprolol use with PNA as cause (4) Right lower lobe consolidation: Plan: Given negative procalcitonin and suspected radiation pneumonitis will switch ceftriaxone back to her usual Keflex. Continue on increased dose of doxycycline for atypical pneumonia. Prednisone per pulmonology recommendations (5) Hypotension: Plan: -Continue to monitor -discontinue further metoprolol (6) Recurrent deep venous thrombosis: Plan: Chronic -Continue Lovenox (7) COPD (chronic obstructive pulmonary disease): Plan: Chronic. No acute exacerbation suspected -Continue Symbicort -Albuterol PRN (8) Depression: Plan: Chronic. -Continue Sertraline (9) UTI (urinary tract infection): Plan: Patient reports dysuria. Also with suprapubic tenderness -Follow urine cultures - growing yeast, no symptoms related to this -Zosyn (possible allergic reaction to this with itching although not severe, switched to ceftriaxone) (10) Transaminitis: Plan: Improving ?shock to liver with hypotensive syncopal episode. Will continue to trend. Questionable pericholecystic edema and mucosal enhancement of the gallbladder on CT for no pain in this area. (11) Adnexal cyst: Plan: Incidentally seen on CT, follow up as outpatient Admission and Anticipated Discharge Date Admission Date: May 12, 2021 Subjective Reports chest pain, unable to tell me severity and finds it hard to describe, reproducible on exam but unsure if this is the same pain she has been feeling. She also notes leg erythema bilaterally getting worse. She reports this usually occurs if she gets IV fluids and does not wear her stockings. She notes she usually gets antibiotics Discussed care with Dr Sampson at bedside. Updated her daughter over the phone. Review of Systems Review of Systems: All systems reviewed & are unremarkable except as noted in HPI & below Physical Exam Constitutional: WD/WN, vitals as above Eyes: + anicteric sclerae; normal pupil size ENMT: external ear and nose normal, oropharynx normal Respiratory: normal respiratory effort, lungs clear to auscultation Cardiovascular: RRR, no murmur, no edema Chest (Breasts): Additional Comments: Reproducible Gastrointestinal (Abdomen): Inspection/Auscultation: abdomen normal to inspection; abdomen not distended Percussion/Palpation: + abdomen tender (mild suprapubic tenderness) and abdomen soft; no guarding, abdomen not rigid and no hepatosplenomegaly Musculoskeletal: no cyanosis or clubbing, extremities motor strength 5/5 Skin: no rashes, warm and dry Neurologic: moves all extremities and awake; not confused Psychiatric: A+Ox3, euthymic affect Genitourinary: no CVA tenderness Results & Data Results & Data ([facility]) Vital Signs (Past 12 Hours) Vital Signs Temp Pulse Resp BP Pulse Ox 05/12/21 19:34 36.8 C 81 18 107/57 L 98 05/12/21 15:12 36.6 C 104 H 18 109/65 100 05/12/21 11:57 36.8 C 64 18 104/70 95 PG Care Time/CCT Total # of Minutes Spent Total Time Spent with Patient: Total time spent is greater than 50% in coordination of care (as documented) at patient's floor/unit and/or counseling patient: Coding Level of Care Code 04515 Subseq Hosp Care Lvl 2 Diagnoses Syncope R55 Syncope type: unspecified Right lower lobe consolidation J18.1 Hypotension I95.9 Hypotension type: unspecified hypotension type Recurrent deep venous thrombosis I82.409 COPD (chronic obstructive pulmonary disease) J44.9 Depression F32.9 UTI (urinary tract infection) N39.0 Transaminitis R74.01 Adnexal cyst N94.9 Chest pain R07.9 Leg erythema L53.9 (1) Syncope Syncope type: unspecified Qualified Code(s): R55 - Syncope and collapse (2) Hypotension Hypotension type: unspecified hypotension type Qualified Code(s): I95.9 - Hypotension, unspecified
[2021-05-12] MEDS: QUEtiapine FUMARATE 25 MG TABLET PO SCH (22:31)
[2021-05-12] MEDS: MIRABEGRON ER 25 MG TAB PO SCH (22:32)
[2021-05-12] MEDS: clonazePAM 1 MG TAB PO SCH (22:32)
[2021-05-12] MEDS: diphenhydrAMINE Capsule 25 MG CAP PO PRN (22:39)
[2021-05-13] MEDS: diphenhydrAMINE Capsule 25 MG CAP PO PRN ×2 (04:45→12:47)
[2021-05-13] MEDS ORDERED: VANCOMYCIN HCL 125 MG/2.5ML SOLN PO SCH (09:00)
[2021-05-13] MEDS ORDERED: cephALEXin 500 MG CAP PO SCH (09:00)
[2021-05-13] MEDS ORDERED: RASPBERRY SYRUP 5 ML UDP PO SCH (09:00)
[2021-05-13] MEDS: TOPIRAMATE 100 MG TAB PO SCH (09:14)
[2021-05-13] MEDS: FLUTICASONE/VILANTEROL 100/25MCG 14 PUFFS/INHALER INH SCH (09:14)
[2021-05-13] MEDS: SERTRALINE HCL 50 MG TABLET PO SCH (09:15)
[2021-05-13] MEDS: predniSONE 10 MG TABLET PO SCH (09:16)
[2021-05-13] MEDS: GABAPENTIN 400 MG CAP PO SCH (09:16)
[2021-05-13] MEDS: CETIRIZINE HCL 10 MG TABLET PO SCH (09:16)
[2021-05-13] MEDS: OXYBUTYNIN CHLORIDE XL 5 MG TABCR PO SCH (09:17)
[2021-05-13] MEDS: METOPROLOL SUCC 25MG EXT REL TAB PO SCH (09:18)
[2021-05-13] MEDS: METHOCARBAMOL 750 MG TABLET PO SCH (09:19)
[2021-05-13] MEDS: DOXYCYCLINE HYCLATE 100 MG CAP PO SCH (09:19)
[2021-05-13] MEDS: ADVANCED PROBIOTIC 1250 MG CAPSULE PO SCH (09:19)
[2021-05-13] MEDS: ACYCLOVIR 400 MG TAB PO SCH (09:20)
[2021-05-13] MEDS: ENOXAPARIN INJ 30 MG/0.3 ML SYR SQ SCH (09:21)
[2021-05-13] MEDS ORDERED: LIDOCAINE 5% 1 PATCH TD SCH (10:45)
--- NOTE | 2021-05-13 10:46 | Pulmonology Progress Note ---
Date of Service May 13, 2021 Assessment & Plan (1) Right lower lobe consolidation: Plan: 66-year-old female with a history of marginal cell lymphoma, lung cancer x2 status post radiation most recently to the right lower lobe in the fall 2019 presenting to the hospital due to syncope. Right lower lobe consolidation: There have been some evolving changes in the right lower lobe with an increasing consolidation noted. The opacities are a bit unusual likely due to the underlying emphysema. She previously had radiation to this site in the fall 2019. These may represent evolving radiation changes. She is asymptomatic. In January I did have her on a prolonged steroid taper for possible radiation fibrosis/pneumonitis. 30 mg of prednisone for 5 days and then wean the prednisone by 5 mg every 3 days. I will see her back in the pulmonary clinic. I discussed other options with her including bronchoscopy to evaluate for infectious and malignant causes. I did note to her that the right lower lobe opacities can represent malignancy such as lymphangitic carcinomatosis. She would prefer a more conservative route such as prednisone therapy at this time. Follow-up imaging will need to be done in 2 to 3 weeks with chest x-ray. PET/CT imaging would likely not be helpful with regards to the right lower lobe density as FDG uptake would be very nonspecific at this point. Chest pain: This is musculoskeletal likely related to the chest compressions she received in the outpatient setting. Will order for a lidocaine patch. Obstructive sleep apnea: She will need follow-up with the sleep medicine clinic. She does not have a CPAP device. Lower extremity redness and swelling: Likely due to chronic venous stasis dermatitis. Improved today after wearing HOMAR hose. No DVT noted on lower extremity ultrasound. Thank you for the consultation. Please call with questions. (2) History of lung cancer: (3) Obstructive sleep apnea: (4) Venous stasis dermatitis: (5) Musculoskeletal chest pain: Admission and Anticipated Discharge Date Admission Date: May 12, 2021 Subjective Patient is stable today and saturating well on room air. He denies any significant shortness of breath or cough symptoms. She continues to have left chest pain which is likely related to CPR she received as an outpatient when it was thought that she was pulseless. Review of Systems Review of Systems: Otherwise negative unless noted elsewhere Physical Exam Physical Exam: Constitutional: Chronically ill-appearing female no apparent distress. Eyes: Pupils are equal round and reactive to light. Conjunctivae are normal. Anicteric sclera. Ears nose, mouth and throat: Normal posterior oropharynx. Uvula is midline. Neck: Trachea is midline. Visual inspection is normal. Respiratory: Mild crackles at the right lung base. No tachypnea. Cardiovascular: Regular rate and rhythm. No murmurs. 1+ pitting edema in the lower extremities bilaterally. Redness noted in the navarro area. Likely venous stasis dermatitis. Gastrointestinal: Normal bowel sounds, soft, nontender and nondistended. No hepatosplenomegaly noted. Musculoskeletal: No cyanosis. Patient is able to move all extremities. Strength is 5 out of 5 in the upper and lower extremities. Skin: Venous stasis dermatitis changes noted in the lower extremities bilaterally. Neurologic: No obvious focal neurological deficits seen. Psychiatric: Alert and oriented x3 with a euthymic affect. Results & Data Results & Data ([facility]) Vital Signs (Past 12 Hours) Vital Signs Temp Pulse Pulse Resp BP BP Pulse Ox 05/13/21 08:00 86 05/13/21 07:54 98.1 F 91 H 18 109/73 97 05/13/21 07:00 86 05/13/21 04:29 98.1 F 91 H 18 110/62 97 05/12/21 23:28 98.6 F 86 18 117/64 97 05/12/21 23:00 83 vital signs, labs and imaging personally reviewed PG Care Time/CCT Total # of Minutes Spent Total Time Spent with Patient: Total time spent is greater than 50% in coordination of care (as documented) at patient's floor/unit and/or counseling patient: Coding Level of Care Code 82427 Subseq Hosp Care Lvl 3 Diagnoses Right lower lobe consolidation J18.1 History of lung cancer Z85.118 Obstructive sleep apnea G47.33 Venous stasis dermatitis I87.2 Musculoskeletal chest pain R07.89
[2021-05-13 10:57] VITALS: TEMP 97.9
[2021-05-13 15:09] VITALS: BP 115/59; PULSE 88; O2SAT 95
--- NOTE | 2021-05-13 16:21 | Electrocardiogram Report ---
Test Reason : Blood Pressure : / mmHG Vent. Rate : 090 BPM Atrial Rate : 090 BPM P-R Int : 158 ms QRS Dur : 070 ms QT Int : 386 ms P-R-T Axes : 068 028 058 degrees QTc Int : 472 ms Poor data quality, interpretation may be adversely affected Normal sinus rhythm Normal ECG When compared with ECG of 09-MAY-2021 14:36, Premature ventricular complexes are no longer Present Confirmed by Shaheen Davalos ([id number]) on 05/13/2021 4:21:13 PM Referred By: Fatou Bell Confirmed By:Shaheen Davalos
--- NOTE | 2021-05-13 17:14 | Discharge Summary ---
Date of Service May 13, 2021 Admission HPI Per Admitting Provider Aleja Duron is a 66yo female with multiple medical problems presenting with possibly syncopal/vasovagal event. Patient was at the doctors today and she "didn't feel well", like "the blood was draining from her body". She was sitting in the exam room and started grabbing her chest and stating that she felt like she couldn't breathe. She became slightly less responsive and briefly dysarthric then had a possible syncopal event where her eyes rolled back and she became unresponsive. She was placed on the floor by medical staff and, by report, was pulseless. She received chest compressions x 5 then woke up. She was placed on O2 and EMS was called to transport her to the ER. By report, patient bradycardic with HR in 30's and hypotensive. Upon arrival patient afebrile, HD stable, NAD. She reports occasional chills as well as dysuria. She also reports ongoing fatigue and some achiness and malaise. She also has lower abdominal cramping discomfort ongoing for the last year and diarrhea. Otherwise she denies fevers, sweats, nausea, vomiting, flank pain. ER Course: 3L NSS, Zosyn , Benadryl Admission Exam Per Admitting Provider General: patient resting comfortably, NAD, non-toxic in appearance, AA&O x 4, chronically ill in appearance Skin: warm, dry, intact, no rashes or lesions HEENT: NC/AT, PERRL, EOMI, anicteric sclera, conjunctiva without injection, external ear normal to inspection and nontender, nares patent, moist mucus membranes, dentition intact, no oropharyngeal lesions, neck supple, trachea midline, no LAD, no thyromegaly, no JVD Heart: +S1/S2, regular, no m/r/g Lungs: equal air entry bilaterally, no rhonchi/wheezes, +crackles in RLL Abd: +BS, soft, ND, tender in lower abdomen and suprapubic region with no rebound, no masses/organomegaly/ascites Ext: warm, 2+ pulses in UE/LE bilaterally, no clubbing/cyanosis or edema Neuro: nonfocal, patient AA&O x 4, speech intact, no facial droop, moving all extremities on command with equal strength 5/5 Principal Diagnosis Syncope Discharge Exam Constitutional WD/WN, vitals as above Eyes + anicteric sclerae; normal pupil size ENMT external ear and nose normal, oropharynx normal Respiratory normal respiratory effort, lungs clear to auscultation Cardiovascular RRR, no murmur, no edema Gastrointestinal (Abdomen) Inspection/Auscultation: abdomen normal to inspection; abdomen not distended Percussion/Palpation: + abdomen tender (mild suprapubic tenderness) and abdomen soft; no guarding, abdomen not rigid and no hepatosplenomegaly Musculoskeletal no cyanosis or clubbing, extremities motor strength 5/5 Skin no rashes, warm and dry Neurologic moves all extremities and awake; not confused Psychiatric A+Ox3, euthymic affect Discharge Data Allergies Allergy/AdvReac Type Severity Reaction Status Date / Time bee venom protein (honey bee) Allergy Severe Difficulty Verified 05/09/21 15:33 Breathing Iodinated Contrast Media Allergy Intermediate Hives Verified 05/09/21 15:33 iodine Allergy Intermediate HIVES Verified 05/09/21 15:33 levofloxacin Allergy Intermediate numbness/we Verified 05/09/21 15:33 akness pregabalin Allergy Intermediate fever?/?cher Verified 05/09/21 15:33 h strawberry Allergy Intermediate HIVES Verified 05/09/21 15:33 Sulfa (Sulfonamide Allergy Intermediate RASH/HIVES Verified 05/09/21 15:33 Antibiotics) allopurinol Allergy Mild rash Verified 05/09/21 15:33 venlafaxine Allergy Unknown UNKNOWN Verified 05/09/21 15:33 gluten AdvReac Severe Celiac Dz Verified 05/09/21 15:33 = GI symptoms adhesive AdvReac Intermediate red torn Verified 05/09/21 15:33 skin propoxyphene AdvReac Intermediate [employer] side Verified 05/09/21 15:33 effects Consultations 05/09/21 16:59 ED Decision to Admit Stat 05/12/21 08:16 Consult Pulmonology Routine Ordered Studies 05/09/21 16:19 CT abd pelvis IV con only Stat IMPRESSION: 1. Stable position of bilateral urinary stents. Mild bilateral hydronephrosis. 2. Questionable pericholecystic edema and mucosal enhancement of the gallbladder. Please correlate above-mentioned findings with clinical presentation of cholecystitis. 3. Stenosis of the distal aspect of abdominal aorta. Prominent calcified plaques. 4. Previously seen cystic lesion within inferior posterior right pelvis now appear on the contralateral side and might represent adnexal cyst versus other etiology. 5. Multiple mottled retroperitoneal lymph nodes, stable since prior. CT chest diagnostic w con Stat IMPRESSION: 1. Mild interval worsening/enlargement of the ill-defined consolidative opacity within right base associated with minimal focal pleural effusion most likely representing infectious/inflammatory etiology or related to aspiration. Previously seen nodule is not well seen on current exam due to surrounding opacities. Follow-up evaluation is per clinical protocol. 2. Stable appearance of the subpleural consolidative opacity within right upper lobe associated with focal sclerotic rib lesion which is stable since recent prior. 3. Stable lymph nodes as detailed above. 4. Emphysema. 05/09/21 18:04 US carotid doppler BI Routine IMPRESSION: No evidence of hemodynamically significant carotid stenosis. Mild atherosclerosis. 05/12/21 14:28 US venous doppler LE BI Urgent IMPRESSION: No evidence of deep venous thrombus within the bilateral lower extremities. Hospital Course (1) Chest pain: (2) Leg erythema: (3) Syncope: (4) Right lower lobe consolidation: (5) Hypotension: (6) Recurrent deep venous thrombosis: (7) COPD (chronic obstructive pulmonary disease): (8) Depression: (9) UTI (urinary tract infection): (10) Transaminitis: (11) Adnexal cyst: Aleja Duron is a 66 year old female admitted to [facility] from May 09-2020 due to a syncope episode associated with hypotension and bradycardia. EKG showed sinus rhythm with frequent PVCs. She was treated with reduction in metoprolol dosing and IV fluids. Initial concern for bacterial pneumonia although procalcitonin remained negative and on review by pulmonology changes on your CT suspected most likely secondary to radiation pneumonitis. CT A/P possibly concerning for cholecystitis but no abdominal pain to suggest acute infection here. Echocardiogram was unremarkable and serial troponins have been negative. Blood cultures negative. Due to IV fluids and not wearing compression stockings she had worsening leg erythema during her inpatient stay. This resolved with wearing her compression stockings. She will continue prednisone taper for radiation pneumonitis. Suspect syncopal event secondary to metoprolol and dehydration. No arrhythmia noted on telemetry. If occurs again would consider loop recorder. Total Time Total Time Spent Total Time Spent (In Minutes): 40 Discharge Plan Discharge Items Patient Disposition: Home - Self-Care Reason For Visit: SYNCOPE Discharge Diagnosis: Syncope Activity: Resume your previous activity Non-emergency contact: Primary Care Provider Call non-emergency contact if: you have any medication questions and your symptoms worsen Follow-up/Referrals: Rashid Villegas MD [Primary Care Provider] - (Please call office and coordinate your follow up appointment with the office and your daugther.) Diet: Gluten Free Addtl Attending Provider Instructions: You were admitted to [facility] from May 09-2020 due to a syncope episode associated with low blood pressure and low heart rate. EKG in the emergency room showed sinus rhythm with frequent PVCs. You were treated with reduction in your metoprolol dosing and IV fluids. Initial concern for pneumonia although procalcitonin remained negative and you were reviewed by pulmonology and felt changes on your CT most likely secondary to radiation pneumonitis. Your heart rate became too fast after holding your metoprolol therefore this was reintroduced at a lower dose. Echocardiogram was unremarkable and serial troponins have been negative. Blood cultures negative. You had some venous stasis dermatitis (leg redness) related to the IV fluids given on admission but this resolved with your usual compression stockings. Please continue prednisone taper for radiation pneumonitis. Please continue reduced dose of metoprolol as this with dehydration most likely led to your syncopal event. Kind regards, Dr Leeroy Brown Pending Studies at Discharge: No Stand-Alone Forms: My [facility], Smoking Cessation Medications and DC Order Prescriptions: New prednisone 5 mg tablet See Rx Instructions .ROUTE .COMPLEX Qty: 63 RF: 0 Continued Prolia 60 mg/mL syringe 60 mg subcut .q 6 months RF: 0 calcium carbonate-vitamin D3 [Caltrate with Vitamin D3] 600 mg(1,500mg) -800 unit tablet 1 tab PO QPM RF: 0 Myrbetriq 50 mg tablet extended release 24 hr 50 mg PO HS Qty: 90 RF: 3 [id number]-[id number]-[id number] [Esgic] 50-325-40 mg tablet See Rx Instructions .ROUTE .COMPLEX PRN (Reason: HEADACHES) Qty: 12 RF: 0 topiramate [Topamax] 100 mg tablet 100 mg PO .COMPLEX 30 Days Qty: 90 RF: 5 doxycycline hyclate 100 mg capsule 100 mg PO QAM Qty: 30 RF: 5 potassium chloride 20 mEq tablet extended release 20 meq PO QAM Qty: 30 RF: 5 gabapentin [Neurontin] 400 mg capsule 400 mg PO QAM 30 Days Qty: 30 RF: 3 oxybutynin chloride 10 mg tablet extended release 24hr 10 mg PO QAM Qty: 90 RF: 1 quetiapine [Seroquel] 50 mg tablet 50 mg PO HS Qty: 30 RF: 5 acyclovir 400 mg tablet 400 mg PO BID Qty: 60 RF: 1 enoxaparin 30 mg/0.3 mL syringe 30 mg subcut DAILY Qty: 30 RF: 2 cephalexin 500 mg capsule 500 mg PO QAM Qty: 30 RF: 5 ergocalciferol (vitamin D2) 1,250 mcg (50,000 unit) capsule 50,000 unit PO WEEKLY Qty: 12 RF: 1 sertraline 50 mg tablet 50 mg PO DAILY Qty: 30 RF: 5 vancomycin 125 mg capsule 125 mg PO 2XWK Qty: 30 RF: 5 albuterol sulfate [ProAir HFA] 90 mcg/actuation HFA aerosol inhaler 2 puff INHALATION QID PRN (Reason: Wheezing) Qty: 8.5 RF: 5 budesonide-formoterol [Symbicort] 80-4.5 mcg/actuation HFA aerosol inhaler 2 puff inhalation BID Qty: 10.2 RF: 2 clonazepam 1 mg tablet 1 mg PO HS Qty: 30 RF: 0 cyanocobalamin (vitamin B-12) 1,000 mcg/mL Solution 1,000 mcg IM MONTHLY RF: 0 ferrous sulfate [iron] 325 mg (65 mg iron) Tablet 325 mg PO QAM RF: 0 vitamin E 400 unit Capsule 400 unit PO QAM RF: 0 psyllium husk [Metamucil] 0.52 gram Capsule 1.04 g PO QAM RF: 0 multivitamin Tablet 1 tab PO QAM RF: 0 butorphanol 10 mg/mL [place],Non-Aerosol 1 spray INTRANASAL Q3H PRN (Reason: Migraine Headache) RF: 0 cetirizine [Zyrtec] 10 mg Tablet 10 mg PO QAM RF: 0 triamcinolone acetonide 0.025 % Cream 1 applic TOPICAL BID PRN (Reason: Skin Irritation) RF: 0 vitamin B complex [B-Complex] Tablet 1 tab PO QAM RF: 0 folic acid 1 mg Tablet 1 mg PO QAM RF: 0 coenzyme Q10 [CoQ-10] 100 mg Capsule 100 mg PO QAM RF: 0 magnesium oxide 400 mg Capsule 400 mg PO QAM RF: 0 Medical Marijuana 1 drp sublingual BID RF: 0 acetaminophen 500 mg Capsule 500 mg PO QID PRN (Reason: Pain) RF: 0 L.acidoph-B.lactis-B.longum 15 billion cell Capsule 1 cap PO QAM RF: 0 rizatriptan 10 mg Tablet 10 mg PO DAILY PRN (Reason: Migraine Headache) RF: 0 methocarbamol 750 mg tablet See Rx Instructions .ROUTE .COMPLEX PRN (Reason: Pain) RF: 0 Changed metoprolol succinate 50 mg tablet extended release 24 hr 25 mg PO QAM Qty: 30 RF: 5 Discharge Orders: Discharge Order (Routine); Ordered 05/13/21 Ordered By: Leeroy Brown Admission Data Admit Date/Time: 05/12/21 08:39 Attending Provider: Leeroy Brown Admit Provider: Sarah Kay Primary Care Provider: Rashid Villegas Other Providers: Sarah Kay ; Alex Sampson Other Interventions: Discharge Summary Assessment (RN) Last Done: 05/13/21 17:15 Coding Level of Care Code D/C DAY MANAGEMENT >30 MINS Diagnoses Chest pain R07.9 Leg erythema L53.9 Syncope R55 Syncope type: unspecified Right lower lobe consolidation J18.1 Hypotension I95.9 Hypotension type: unspecified hypotension type Recurrent deep venous thrombosis I82.409 COPD (chronic obstructive pulmonary disease) J44.9 Depression F32.9 UTI (urinary tract infection) N39.0 Transaminitis R74.01 Adnexal cyst N94.9
== END 2021-05-13 17:48 | disposition home or self-care (01) | DRG 312 ==
LOC: 2W 14:30 → ED 14:30 → SUATTDRO 18:04 → 2W 20:30

== ENCOUNTER 2021-08-09 19:16 | Inpatient (IN) ==
[2021-08-09] MEDS ORDERED: ACETAMINOPHEN 325 MG TAB PO STA (19:38)
[2021-08-09 20:15] LABS: Appearance Urine Clear (Clear); Bilirubin Urine Negative (Negative); Blood Urine 3+ (Negative); Color Urine Yellow; Glucose Urine UA Negative (Negative); Ketones Urine Negative (Negative); Leukocyte Esterase Urine Trace (Negative); Nitrite Urine Negative (Negative); Protein Urine 3+ (Negative); Urobilinogen Urine Negative (Negative); pH Urine 6.5 (4.5-7.5)
--- NOTE | 2021-08-09 20:25 | XRay Report ---
SINGLE VIEW CHEST CLINICAL HISTORY: Fever. Lung cancer. FINDINGS: An AP, portable, upright chest radiograph is compared to study dated 05/31/2021 and correlat ed with chest CT dated 08/01/2021 and PET/CT dated 02/02/2021. The cardiomediastinal silhouette is unr emarkable noting atherosclerotic calcification of the thoracic aorta. Advanced emphysema and chronic interstitial thickening is similar to previous. Parenchyma scarring in the right upper lobe is unchan ged. Airspace opacities are again seen at the right lung base. No large pleural effusion or pneumotho rax is identified. The skeletal structures are osteopenic. Thickening and sclerosis of the right ante rior upper ribs is similar to previous. There is chronic posttraumatic deformity of the left proximal humerus. IMPRESSION: 1. No significant change as compared to the 08/01/2021 CT scan. 2. Patchy airspace opacities are again seen at the right lung base. This is unchanged over several pr ior examinations. 3. Emphysema and treatment related changes as above. ACT 112: Negative or not required by law. Electronically signed by: Zohaib Montoya M.D. 08/09/2021 8:23 PM
[2021-08-09 20:31] LABS: Albumin Level 3.2 gm/dl (3.4-5.0); BUN Creatinine Ratio 16.1 (10-20); Creatinine Clr Calc Pharmacy 32.6 ml/min; Est GFR (African American) 50.4 ml/min; Est GFR (Non-African American) 43.5 ml/min; Potassium 4.5 mmol/L (3.5-5.1)
[2021-08-09 20:34] LABS: Bilirubin,Total 0.5 mg/dl (0.2-1); Globulin 3.3 gm/dl (2.5-4.0); Total Protein 6.5 gm/dl (6.4-8.2)
[2021-08-09 20:50] LABS: Epithelial Cell Urine 0-5 /lpf (0-5)
[2021-08-09 20:54] LABS: Bacteria Urine Negative (Negative)
[2021-08-09 21:16] LABS: Mean Corpuscular Hemoglobin 29.4 pg (25-34); Mean Corpuscular Hgb Conc 33.3 g/dL (32-36); Mean Corpuscular Volume 88.2 fL (80-100); Nucleated RBC # (auto) 0.02 K/uL (0-0); Nucleated RBC % (auto) 5.3 %; Platelet Count 8 K/uL (130-400); RDW Coefficient of Variation 18.9 % (11.5-14.5); RDW Standard Deviation 60.8 fL (36.4-46.3); Red Blood Count 2.72 M/uL (4.2-5.4); White Blood Count 0.44 K/uL (4.8-10.8)
[2021-08-09] MEDS ORDERED: VANCOMYCIN CONSULT ACTIVE PRN (22:26)
[2021-08-09] MEDS ORDERED: VANCOMYCIN HCL 1,250 MG in SODIUM CHLORIDE 0.9% 500 ML IV ONE (22:26)
[2021-08-09] MEDS ORDERED: CEFEPIME 2,000 MG/20 ML VIAL IV STA (22:26)
[2021-08-09] MEDS ORDERED: SODIUM CHLORIDE 0.9% 1000ML 1,000 ML IV ONE (22:35)
--- NOTE | 2021-08-09 23:55 | Emergency Department Note ---
History of Present Illness General Chief complaint: Fever Stated complaint: FEVER, REFERRED BY DOCTOR Time Seen by Provider: 08/09/21 22:00 History of Present Illness Provider complaint: Fever Onset (ago): day(s) 1 Maximum Pain Intensity: 7 Associated symptoms: + fever/chills, + headaches and + malaise; no cough, no nausea/vomiting or no shortness of breath 66-year-old female presents emergency department for fever. Patient reports she has fever starting 1 day. She states that she is currently being treated with Dr. Bloom for MDS. She states that her platelet count was low and she got an infusion today however when she called him about his fever he advised her to come to the emergency department. Home Medications Medication Instructions Recorded Confirmed Type butorphanol 10 mg/mL nasal spray 1 spray INTRANASAL Q3H PRN 07/16/18 08/09/21 History cetirizine 10 mg tablet (Zyrtec) 10 mg PO QAM 07/16/18 08/09/21 History coenzyme Q10 100 mg capsule 100 mg PO QAM 07/16/18 08/09/21 History (CoQ-10) folic acid 1 mg tablet 1 mg PO QAM 07/16/18 08/09/21 History magnesium oxide 400 mg PO QAM 07/16/18 08/09/21 History multivitamin 1 tab PO QAM 07/16/18 08/09/21 History triamcinolone acetonide 0.025 % 1 applic TOPICAL BID PRN 07/16/18 08/09/21 History topical cream vitamin B complex (B-Complex) 1 tab PO QAM 07/16/18 08/09/21 History calcium carbonate-vitamin D3 600 1 tab PO QPM 11/26/18 08/09/21 History mg (1,500 mg)-800 unit tablet (Caltrate with Vitamin D3) cyanocobalamin (vitamin B-12) 1,000 mcg IM MONTHLY 02/10/19 08/09/21 History 1,000 mcg/mL injection solution ferrous sulfate 325 mg (65 mg 325 mg PO QAM 02/10/19 08/09/21 History iron) tablet (iron) psyllium husk 0.52 gram capsule 1.04 g PO QAM 08/28/19 08/09/21 History (Metamucil) vitamin E 400 unit capsule 400 unit PO QAM 08/28/19 08/09/21 History Medical Marijuana 1 ml SUBLINGUAL BID 06/27/20 08/09/21 History nacqrfsfjz-ibdpafciufecl-bcharfym See Rx Instructions .ROUTE 10/07/20 08/09/21 Rx 50 mg-325 mg-40 mg tablet (Esgic) .COMPLEX PRN #12 tab denosumab 60 mg/mL subcutaneous 60 mg SUBCUT .q 6 months ml 12/17/20 08/09/21 History syringe (Prolia) acetaminophen 500 mg capsule 500 mg PO QID PRN 01/24/21 08/09/21 History gabapentin 400 mg capsule 400 mg PO QAM 30 Days #30 cap 01/27/21 08/09/21 Rx (Neurontin) potassium chloride 20 mEq 20 meq PO QAM #30 tab 01/27/21 08/09/21 Rx tablet,extended release L.acidophilus-B.lactis-B.longum 15 1 cap PO QAM 02/03/21 08/09/21 History billion cell capsule quetiapine 50 mg tablet (Seroquel) 50 mg PO HS #30 tab 02/25/21 08/09/21 Rx ergocalciferol (vitamin D2) 1,250 50,000 unit PO WEEKLY #12 cap 02/28/21 08/09/21 Rx mcg (50,000 unit) capsule vancomycin 125 mg capsule 125 mg PO 2XWK #30 cap 03/29/21 08/09/21 Rx albuterol sulfate 90 mcg/actuation 2 puff INHALATION QID PRN #8.5 gm 04/22/21 08/09/21 Rx aerosol inhaler (ProAir HFA) sertraline 50 mg tablet (Zoloft) 50 mg PO HS 05/19/21 08/09/21 History metoprolol succinate 50 mg 25 mg PO QAM #45 tab 05/23/21 08/09/21 Rx tablet,extended release 24 hr phenazopyridine 200 mg tablet 200 mg PO Q8H PRN #10 tab 05/30/21 08/09/21 Rx (Pyridium) Auto Titrating CPAP #1 ea 06/01/21 08/02/21 Rx CPAP Supplies #1 ea 06/01/21 08/02/21 Rx clonazepam 1 mg tablet 1 mg PO HS #30 tab 06/17/21 08/09/21 Rx enoxaparin 30 mg/0.3 mL 30 mg SUBCUT DAILY #30 syr 06/17/21 08/09/21 Rx subcutaneous syringe acyclovir 400 mg tablet 400 mg PO BID #60 tab 06/21/21 08/09/21 Rx methocarbamol 750 mg tablet 750 mg PO BID PRN #60 tab 06/21/21 08/09/21 Rx rizatriptan 10 mg tablet 10 mg PO DAILY PRN #9 tab 06/21/21 08/09/21 Rx topiramate 100 mg tablet (Topamax) 100 mg PO .COMPLEX 30 Days #90 tab 06/21/21 08/09/21 Rx budesonide-formoterol HFA 80 2 puff INHALATION BID #10.2 g 06/23/21 08/09/21 Rx mcg-4.5 mcg/actuation aerosol inhaler (Symbicort) denosumab 60 mg/mL subcutaneous 60 mg SUBCUT ONCE #1 ml 07/05/21 08/09/21 Rx syringe (Prolia) oxybutynin chloride 10 mg 10 mg PO QAM #90 tab 07/14/21 08/09/21 Rx tablet,extended release 24 hr cephalexin 500 mg capsule 500 mg PO QAM #30 cap 07/15/21 08/09/21 Rx doxycycline hyclate 100 mg capsule 100 mg PO DAILY #30 cap 07/15/21 08/09/21 Rx mirabegron 50 mg tablet,extended 50 mg PO HS #90 tab 07/25/21 08/09/21 Rx release 24 hr (Myrbetriq) Allergies Allergy/AdvReac Type Severity Reaction Status Date / Time bee venom protein (honey bee) Allergy Severe Difficulty Verified 08/09/21 10:56 Breathing adhesive Allergy Intermediate Red torn Verified 08/09/21 10:56 skin Iodinated Contrast Media Allergy Intermediate Hives Verified 08/09/21 10:56 iodine Allergy Intermediate Hives Verified 08/09/21 10:56 levofloxacin Allergy Intermediate numbness/we Verified 08/09/21 10:56 akness pregabalin Allergy Intermediate fever?/?cher Verified 08/09/21 10:56 h strawberry Allergy Intermediate Hives Verified 08/09/21 10:56 Sulfa (Sulfonamide Allergy Intermediate Rash, hives Verified 08/09/21 10:56 Antibiotics) allopurinol Allergy Mild Rash Verified 08/09/21 10:56 ceftriaxone [From Rocephin] Allergy Mild Rash Verified 08/09/21 10:56 piperacillin [From Zosyn] Allergy Mild Rash Verified 08/09/21 10:56 tazobactam [From Zosyn] Allergy Mild Rash Verified 08/09/21 10:56 venlafaxine Allergy Unknown Unknown Verified 08/09/21 10:56 gluten AdvReac Severe Celiac Dz Verified 08/09/21 10:56 = GI symptoms propoxyphene AdvReac Intermediate PROOF CLERK side Verified 08/09/21 10:56 effects Past Med/Surg History Medical History Asthma Celiac disease Cellulitis Recurrent B/L LE - on prophylactic abx (Follows with Dr. Nielson). on chronic Cephalexin and Doxy Chronic back pain Chronic kidney disease Stage III > follows Dr. Fleming Chronic obstructive pulmonary disease Emphysema Chronic venous stasis Cirrhosis of liver Hx of Hep C with cirrhosis Depression History of blood transfusion History of recurrent UTI (urinary tract infection) Hx MRSA infection several yrs ago Hx of cancer of lung s/p radiation (2012), recurrence (2019 in [facility]) s/p radiation- follows with heme/onc Hx of Clostridium difficile infection on Vanco 2x/week for prophylaxis Hx of deep venous thrombosis LLE (1976) Hx of hepatitis C 2013 > "resolved" Hx of non-Hodgkin's lymphoma s/p treatment in 2013 Hydronephrosis b/l chronic hydronephrosis requiring routine stent exchanges Hyperlipidemia Insomnia Migraine Mood disorder Obstructive sleep apnea 1L O2 HS Obstructive sleep apnea Osteoporosis Poor historian R/t hx stroke Prediabetes diet control 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 Pagan Thrombocytopenia Chronic (platelet baseline in the 40-70s over the past few months) Venous stasis dermatitis Surgical History H/O bursectomy Right knee History of bone marrow biopsy History of bronchoscopy History of carpal tunnel release Left History of cystoscopy Multiple Bilateral Retrograde Pyelogram (05/27/21): MAC at [facility] History of esophagogastroduodenoscopy (EGD) History of liver biopsy History of tooth extraction History of ureter stent MULTIPLE Hx of bladder repair surgery FOR PROLAPSE Hx of colonoscopy Hx of tonsillectomy Hx of tubal ligation Family History Unknown Heart disease Hypertension Mother Psoriasis Diabetes Social History Smoking Status: Former smoker Tobacco Type: Cigarettes Cigarettes Per Day: Quit 02/2011; Second Hand Exposure: Yes; Hx Alcohol Use: No Hx Substance Use: Yes Last Used Substance: Just Prior to Arrival Last Used Substance Other:: medical marijuanna Substance Use Type Other:: medical marijuana card Preferred Language: Upper Sorbian Communication Ability: Effective Visual Impairment: No Limitations Hearing Ability: Normal Mill 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 Head Required: No Beliefs That Will Affect Care: None Current Living Situation: Family Current Living Situation Comment: Son and son's girlfriend current occupational status: retired Feels Safe at Home: Yes Assistive Devices: Denture - Upper, Denture - Lower and Glasses Review of Systems A total of 10 systems reviewed and were otherwise negative Physical Exam Vital Signs Vital Signs - 24 hr 08/09/21 19:36 08/09/21 22:02 08/09/21 22:45 Temperature 38.3 C H 37.6 C H Temperature Source Temporal Artery Scan Oral Pulse Rate 112 H 100 H Pulse Rate [Apical] 96 H 86 Pulse Rhythm Regular Pulse Rhythm [Apical] Regular Respiratory Rate 18 21 17 Respiratory Effort / Characteristics Non-Labored Spontaneous Non-Labored Spontaneous Non-Labored Spontaneous Respiratory Depth Normal Normal Normal Respiratory Pattern Regular Regular Regular Blood Pressure 110/48 L Blood Pressure [Right Arm] 88/54 L 88/49 L Blood Pressure Mean 68 Blood Pressure Mean [Right Arm] 65 62 Blood Pressure Position Sitting Blood Pressure Position [Right Arm] Lying Semi-fowlers Pulse Oximetry 95 98 97 Oxygen Delivery Method Room Air Room Air Room Air Sepsis Recent Fever Within 48 Hours No Sepsis New/Unexplained Change in Mental Status Yes Sepsis Action Taken by Nursing No Action Required 08/09/21 23:30 Temperature Temperature Source Pulse Rate Pulse Rate [Apical] 90 Pulse Rhythm Pulse Rhythm [Apical] Respiratory Rate 20 Respiratory Effort / Characteristics Respiratory Depth Respiratory Pattern Blood Pressure Blood Pressure [Right Arm] 101/49 L Blood Pressure Mean Blood Pressure Mean [Right Arm] 66 Blood Pressure Position Blood Pressure Position [Right Arm] Pulse Oximetry 100 Oxygen Delivery Method Room Air Sepsis Recent Fever Within 48 Hours Sepsis New/Unexplained Change in Mental Status Sepsis Action Taken by Nursing Physical Exam GENERAL: She is oriented to person, place, and time. She appears well-developed and well-nourished. She does not appear distressed. HENT: Exam performed. -Head: Normocephalic and atraumatic. -Right Ear: External ear normal. No mastoid tenderness. -Left Ear: External ear normal. No mastoid tenderness. -Mouth/Throat: The oropharynx is clear and moist. No trismus in the jaw. No dental abscesses or uvula swelling. No oropharyngeal exudate or tonsillar abscesses. EYES: Conjunctivae and EOM are normal. Pupils are equal, round, and reactive to light. Right eye exhibits no discharge. Left eye exhibits no discharge. No scleral icterus. NECK: Normal range of motion. Neck supple. No JVD present. No spinous process tenderness present. No carotid bruit present. No rigidity. No tracheal deviation and normal range of motion present. No Brudzinski's sign and no Kernig's sign noted. CV: Normal rate, regular rhythm, normal heart sounds and intact distal pulses. There is no peripheral edema. Palpable radial pulses bue. PULM/CHEST: Effort normal and breath sounds normal. No respiratory distress. No stridor. She has no wheezes. She has no rales. -Chest Wall: She exhibits no tenderness. ABD: The abdomen is soft. Bowel sounds are normal. She has no distension. No mass is present. There is no tenderness. There is no rebound, no guarding, no Villagomez's sign and no tenderness at McBurney's point. Rovsig negative MUSC/SKEL: Normal range of motion. There is no peripheral edema, tenderness or deformity. LYMPH: No cervical adenopathy. NEURO: She is alert and oriented to person, place, and time. She has normal strength. No cranial nerve deficit or sensory deficit. Coordination and gait normal. GCS eye subscore is 4. GCS verbal subscore is 5. GCS motor subscore is 6. Cerebellar tests wnl. SKIN: Skin is warm and dry. She is not diaphoretic. PSYCH: She has a normal mood and affect. Behavior is normal. Judgment and thought content normal. Course Course 220: The patient was evaluated in room A10. A complete history and physical exam was performed Cardiac monitoring: An order was placed for continuous cardiac monitoring. The monitor shows a rate of 90 with sinus rhythm Patient was seen during a time of extreme volume and extreme acuity during the ID- pandemic. Nursing triage protocols were initiated and labs were drawn by protocol in the triage area. Labs show a leukopenia of 0.44 platelet count of 8. 2222: Spoke with Dr. Bloom the physician who referred the patient to the emergency department. He states that he recommends admitting the patient and giving her antibiotics for her fever. He also recommends that the hospitalist team admit the patient and give IVIG 1 g/kg tomorrow morning. He agrees with the idea to CT the patient's head given her headaches and low platelets. Discussed with pharmacy Osbaldo who states that the patient has had cefepime in the past. Patient be given cefepime and vancomycin. 2351: CT of the head is negative. Patient will be admitted to the [facility] hospitalist team Dr. Kay notified. Administered Medications Discontinued Medications Acetaminophen (Acetaminophen 325 Mg Tab) 650 mg PO NOW STA Stop: 08/09/21 19:39 Last Admin: 08/09/21 19:55 Dose: 650 mg Documented by: [id number] Cefepime HCl (Maxipime) 2,000 mg in 20 mls @ 5 mls/min IV NOW STA; Protocol Stop: 08/09/21 22:29 Last Admin: 08/09/21 22:42 Dose: 5 mls/min Documented by: [id number] Sodium Chloride (Nss 1000ml) 1,000 mls @ 999 mls/hr IV .Q1H1M ONE Stop: 08/09/21 23:35 Last Admin: 08/09/21 22:41 Dose: 999 mls/hr Documented by: [id number] Medical Decision Making Laboratory Data Result diagrams: 08/09/21 19:20 08/09/21 19:20 Lab Results 08/09/21 08/09/21 08/09/21 Range/Units 19:20 19:20 19:20 WBC 0.44 L* (4.8-10.8) K/uL RBC 2.72 L (4.2-5.4) M/uL Hgb 8.0 L (12.0-16.0) g/dL Hct 24.0 L (37-47) % MCV 88.2 (80-100) fL MCH 29.4 (25-34) pg MCHC 33.3 (32-36) g/dL RDW Std Deviation 60.8 H (36.4-46.3) fL RDW Coeff of Irasema 18.9 H (11.5-14.5) % Plt Count 8 L* (130-400) K/uL Immature Gran % (Auto) Cancelled Neut % (Auto) Cancelled Lymph % (Auto) Cancelled [place] % (Auto) Cancelled Eos % (Auto) Cancelled Baso % (Auto) Cancelled Neut # (Auto) Cancelled Lymph # (Auto) Cancelled [place] # (Auto) Cancelled Eos # (Auto) Cancelled Baso # (Auto) Cancelled Immature Gran # (Auto) Cancelled Absolute Nucleated RBC 0.02 H (0-0) K/uL Nucleated RBC % (auto) 5.3 % Neutrophils % (Manual) Cancelled Band Neutrophils % Cancelled Lymphocytes % (Manual) Cancelled Prolymphocyte % Cancelled Reactive Lymphs % (Man) Cancelled Monocytes % (Manual) Cancelled Eosinophils % (Manual) Cancelled Basophils % (Manual) Cancelled Metamyelocytes % (Man) Cancelled Myelocytes % (Man) Cancelled Promyelocytes % (Man) Cancelled Blast Cells % (Manual) Cancelled Plasma Cell % (Manual) Cancelled Other Cells % Cancelled Nucleated RBC % Cancelled Neutrophils # (Manual) Cancelled Band Neutrophils # Cancelled Total Absolute Neuts Cancelled Lymphocytes # (Manual) Cancelled Prolymphocyte # Cancelled Reactive Lymphs # Cancelled Total Abs Lymphocytes Cancelled Monocytes # (Manual) Cancelled Eosinophils # (Manual) Cancelled Basophils # (Manual) Cancelled Metamyelocytes # (Man) Cancelled Myelocytes # (Manual) Cancelled Promyelocytes # (Man) Cancelled Blast Cells # (Man) Cancelled Plasma Cell # (Manual) Cancelled Other Cells # Cancelled Nucleated RBCs # (Man) Cancelled Hypersegmented Neuts Cancelled Hyposegmented Neuts Cancelled Hypogranular Neuts Cancelled Large Granular Lymphs Cancelled # Lrg Granular Lymphs Cancelled Hairy Cells Cancelled Smudge Cells Cancelled Toxic Granulation Cancelled Toxic Vacuolation Cancelled Dohle Bodies Cancelled Jean Carlos Rods Cancelled Hypogranular Platelets Cancelled Clumped Platelets Cancelled Giant Platelets Cancelled Platelet Satelliting Cancelled RBC Morphology Cancelled Polychromasia Cancelled Hypochromasia Cancelled Poikilocytosis Cancelled Basophilic Stippling Cancelled Anisocytosis Cancelled Microcytosis Cancelled Macrocytosis Cancelled Spherocytes Cancelled Pappenheimer Bodies Cancelled Sickle Cells Cancelled Target Cells Cancelled Tear Drop Cells Cancelled Ovalocytes Cancelled Stomatocytes Cancelled Albrecht-Wildrose Bodies Cancelled Echinocytes Cancelled Acanthocytes (Spur) Cancelled Rouleaux Cancelled RBC Agglutinates Cancelled Schistocytes Cancelled RBC Morph Comment Cancelled Sezary Cell Cancelled Sodium 140 (136-145) mmol/L Potassium 4.5 (3.5-5.1) mmol/L Chloride 113 H (98-107) mmol/L Carbon Dioxide 23 (21-32) mmol/L Anion Gap 4.0 (3-11) BUN 21 H (7-18) mg/dl Creatinine 1.28 H (0.6-1.2) mg/dl Est Cr Clr Drug Dosing 32.6 ml/min Est GFR ( Amer) 50.4 ml/min Est GFR (Non-Af Amer) 43.5 ml/min BUN/Creatinine Ratio 16.1 (10-20) Glucose 139 H (70-99) mg/dl Lactate (0.4-2.0) mmol/L Calcium 8.0 L (8.5-10.1) mg/dl Total Bilirubin 0.5 (0.2-1) mg/dl AST 18 (15-37) U/L ALT 41 (12-78) U/L Alkaline Phosphatase 87 (45-117) U/L Total Protein 6.5 (6.4-8.2) gm/dl Albumin 3.2 L (3.4-5.0) gm/dl Globulin 3.3 (2.5-4.0) gm/dl Albumin/Globulin Ratio 1.0 (0.9-2) Procalcitonin (0-0.5) ng/ml Urine Color Yellow Urine Appearance Clear (Clear) Urine pH 6.5 (4.5-7.5) Ur Specific [place] 1.020 (1.000-1.030) Urine Protein 3+ H (Negative) Urine Glucose (UA) Negative (Negative) Urine Ketones Negative (Negative) Urine Blood 3+ H (Negative) Urine Nitrite Negative (Negative) Urine Bilirubin Negative (Negative) Urine Urobilinogen Negative (Negative) Ur Leukocyte Esterase Trace H (Negative) Urine RBC 10-30 H (0-4) /hpf Urine WBC 10-30 H (0-5) /hpf Ur Epithelial Cells 0-5 (0-5) /lpf Urine Bacteria Negative (Negative) Urine Yeast Budding A (None Prsent) 08/09/21 08/09/21 Range/Units 22:26 22:26 WBC (4.8-10.8) K/uL RBC (4.2-5.4) M/uL Hgb (12.0-16.0) g/dL Hct (37-47) % MCV (80-100) fL MCH (25-34) pg MCHC (32-36) g/dL RDW Std Deviation (36.4-46.3) fL RDW Coeff of Irasema (11.5-14.5) % Plt Count (130-400) K/uL Immature Gran % (Auto) Neut % (Auto) Lymph % (Auto) [place] % (Auto) Eos % (Auto) Baso % (Auto) Neut # (Auto) Lymph # (Auto) [place] # (Auto) Eos # (Auto) Baso # (Auto) Immature Gran # (Auto) Absolute Nucleated RBC (0-0) K/uL Nucleated RBC % (auto) % Neutrophils % (Manual) Band Neutrophils % Lymphocytes % (Manual) Prolymphocyte % Reactive Lymphs % (Man) Monocytes % (Manual) Eosinophils % (Manual) Basophils % (Manual) Metamyelocytes % (Man) Myelocytes % (Man) Promyelocytes % (Man) Blast Cells % (Manual) Plasma Cell % (Manual) Other Cells % Nucleated RBC % Neutrophils # (Manual) Band Neutrophils # Total Absolute Neuts Lymphocytes # (Manual) Prolymphocyte # Reactive Lymphs # Total Abs Lymphocytes Monocytes # (Manual) Eosinophils # (Manual) Basophils # (Manual) Metamyelocytes # (Man) Myelocytes # (Manual) Promyelocytes # (Man) Blast Cells # (Man) Plasma Cell # (Manual) Other Cells # Nucleated RBCs # (Man) Hypersegmented Neuts Hyposegmented Neuts Hypogranular Neuts Large Granular Lymphs # Lrg Granular Lymphs Hairy Cells Smudge Cells Toxic Granulation Toxic Vacuolation Dohle Bodies Jean Carlos Rods Hypogranular Platelets Clumped Platelets Giant Platelets Platelet Satelliting RBC Morphology Polychromasia Hypochromasia Poikilocytosis Basophilic Stippling Anisocytosis Microcytosis Macrocytosis Spherocytes Pappenheimer Bodies Sickle Cells Target Cells Tear Drop Cells Ovalocytes Stomatocytes Albrecht-Wildrose Bodies Echinocytes Acanthocytes (Spur) Rouleaux RBC Agglutinates Schistocytes RBC Morph Comment Sezary Cell Sodium (136-145) mmol/L Potassium (3.5-5.1) mmol/L Chloride (98-107) mmol/L Carbon Dioxide (21-32) mmol/L Anion Gap (3-11) BUN (7-18) mg/dl Creatinine (0.6-1.2) mg/dl Est Cr Clr Drug Dosing ml/min Est GFR ( Amer) ml/min Est GFR (Non-Af Amer) ml/min BUN/Creatinine Ratio (10-20) Glucose (70-99) mg/dl Lactate 0.7 (0.4-2.0) mmol/L Calcium (8.5-10.1) mg/dl Total Bilirubin (0.2-1) mg/dl AST (15-37) U/L ALT (12-78) U/L Alkaline Phosphatase (45-117) U/L Total Protein (6.4-8.2) gm/dl Albumin (3.4-5.0) gm/dl Globulin (2.5-4.0) gm/dl Albumin/Globulin Ratio (0.9-2) Procalcitonin 0.12 (0-0.5) ng/ml Urine Color Urine Appearance (Clear) Urine pH (4.5-7.5) Ur Specific [place] (1.000-1.030) Urine Protein (Negative) Urine Glucose (UA) (Negative) Urine Ketones (Negative) Urine Blood (Negative) Urine Nitrite (Negative) Urine Bilirubin (Negative) Urine Urobilinogen (Negative) Ur Leukocyte Esterase (Negative) Urine RBC (0-4) /hpf Urine WBC (0-5) /hpf Ur Epithelial Cells (0-5) /lpf Urine Bacteria (Negative) Urine Yeast (None Prsent) Imaging Data Radiologist's Impression: Chest X-Ray 08/09/21 19:38 SINGLE VIEW CHEST CLINICAL HISTORY: Fever. Lung cancer. FINDINGS: An AP, portable, upright chest radiograph is compared to study dated 05/31/2021 and correlated with chest CT dated 08/01/2021 and PET/CT dated 02/02/2021. The cardiomediastinal silhouette is unremarkable noting atherosclerotic calcification of the thoracic aorta. Advanced emphysema and chronic interstitial thickening is similar to previous. Parenchyma scarring in the right upper lobe is unchanged. Airspace opacities are again seen at the right lung base. No large pleural effusion or pneumothorax is identified. The skeletal structures are osteopenic. Thickening and sclerosis of the right anterior upper ribs is similar to previous. There is chronic posttraumatic deformity of the left proximal humerus. IMPRESSION: 1. No significant change as compared to the 08/01/2021 CT scan. 2. Patchy airspace opacities are again seen at the right lung base. This is unchanged over several prior examinations. 3. Emphysema and treatment related changes as above. ACT 112: Negative or not required by law. Electronically signed by: Zohaib Montoya M.D. 08/09/2021 8:23 PM Preliminary Findings Only See Final Report For Complete Findings CT HEAD: Prior study from 3 1520 No evidence of acute intracranial abnormality. Stable chronic changes of mild volume loss, small vessel disease and focal areas of encephalomalacia in the left parietal lobe and left cerebellum. Partially visualized paranasal sinuses and mastoid air cells are clear. Radiologist: Christopher Denson M.D. Study ready at 23:24 and initial results transmitted at 23:28 ECG Data Indication: + other (headache) Rate (beats per minute): 95 Rhythm: + normal sinus ECG Intervals/blocks: + Normal QRS, + Normal [place] and + Normal QT-c ECG ST segments: + Normal ST segments MDM Narrative 2200: The patient was evaluated in room A10. A complete history and physical exam was performed Cardiac monitoring: An order was placed for continuous cardiac monitoring. The monitor shows a rate of 90 with sinus rhythm Patient was seen during a time of extreme volume and extreme acuity during the COVID-19 pandemic. Nursing triage protocols were initiated and labs were drawn by protocol in the triage area. Labs show a leukopenia of 0.44 platelet count of 8. 2222: Spoke with Dr. Bloom the physician who referred the patient to the emergency department. He states that he recommends admitting the patient and giving her antibiotics for her fever. He also recommends that the hospitalist team admit the patient and give IVIG 1 g/kg tomorrow morning. He agrees with the idea to CT the patient's head given her headaches and low platelets. Discussed with pharmacy Osbaldo who states that the patient has had cefepime in the past. Patient be given cefepime and vancomycin. 2351: CT of the head is negative. Patient will be admitted to the [facility] hospitalist team Dr. Kay notified. Impression & Plan Sepsis, Thrombocytopenia Discharge Plan Visit Data Chief Complaint: Fever Stated Complaint: FEVER, REFERRED BY DOCTOR Discharge Problem: Sepsis, Thrombocytopenia Patient Disposition: Admitted As Inpatient Forms Stand Alone Forms: My [facility] Prescriptions Prescriptions: No Action Prolia 60 mg/mL syringe 60 mg subcut .q 6 months RF: 0 calcium carbonate-vitamin D3 [Caltrate with Vitamin D3] 600 mg(1,500mg) -800 unit tablet 1 tab PO QPM RF: 0 [id number] [Esgic] 50-325-40 mg tablet See Rx Instructions .ROUTE .COMPLEX PRN (Reason: HEADACHES) Qty: 12 RF: 0 potassium chloride 20 mEq tablet extended release 20 meq PO QAM Qty: 30 RF: 5 gabapentin [Neurontin] 400 mg capsule 400 mg PO QAM 30 Days Qty: 30 RF: 3 quetiapine [Seroquel] 50 mg tablet 50 mg PO HS Qty: 30 RF: 5 ergocalciferol (vitamin D2) 1,250 mcg (50,000 unit) capsule 50,000 unit PO WEEKLY Qty: 12 RF: 1 vancomycin 125 mg capsule 125 mg PO 2XWK Qty: 30 RF: 5 albuterol sulfate [ProAir HFA] 90 mcg/actuation HFA aerosol inhaler 2 puff INHALATION QID PRN (Reason: Wheezing) Qty: 8.5 RF: 5 metoprolol succinate 50 mg tablet extended release 24 hr 25 mg PO QAM Qty: 45 RF: 3 clonazepam 1 mg tablet 1 mg PO HS Qty: 30 RF: 2 enoxaparin 30 mg/0.3 mL syringe 30 mg subcut DAILY Qty: 30 RF: 2 topiramate [Topamax] 100 mg tablet 100 mg PO .COMPLEX 30 Days Qty: 90 RF: 5 rizatriptan 10 mg tablet 10 mg PO DAILY PRN (Reason: Migraine Headache) Qty: 9 RF: 5 methocarbamol 750 mg tablet 750 mg PO BID PRN (Reason: Pain) Qty: 60 RF: 5 acyclovir 400 mg tablet 400 mg PO BID Qty: 60 RF: 3 budesonide-formoterol [Symbicort] 80-4.5 mcg/actuation HFA aerosol inhaler 2 puff inhalation BID Qty: 10.2 RF: 1 Prolia 60 mg/mL syringe 60 mg subcut ONCE Qty: 1 RF: 0 oxybutynin chloride 10 mg tablet extended release 24hr 10 mg PO QAM Qty: 90 RF: 1 cephalexin 500 mg capsule 500 mg PO QAM Qty: 30 RF: 5 doxycycline hyclate 100 mg capsule 100 mg PO DAILY Qty: 30 RF: 5 Myrbetriq 50 mg tablet extended release 24 hr 50 mg PO HS Qty: 90 RF: 3 (DME) Auto Titrating CPAP Misc See Rx Instructions .ROUTE .MEDSUPPLY Qty: 1 RF: 0 (DME) CPAP Supplies Misc See Rx Instructions .ROUTE .MEDSUPPLY Qty: 1 RF: 0 cyanocobalamin (vitamin B-12) 1,000 mcg/mL Solution 1,000 mcg IM MONTHLY RF: 0 ferrous sulfate [iron] 325 mg (65 mg iron) Tablet 325 mg PO QAM RF: 0 vitamin E 400 unit Capsule 400 unit PO QAM RF: 0 psyllium husk [Metamucil] 0.52 gram Capsule 1.04 g PO QAM RF: 0 multivitamin Tablet 1 tab PO QAM RF: 0 butorphanol 10 mg/mL [place],Non-Aerosol 1 spray INTRANASAL Q3H PRN (Reason: Migraine Headache) RF: 0 cetirizine [Zyrtec] 10 mg Tablet 10 mg PO QAM RF: 0 triamcinolone acetonide 0.025 % Cream 1 applic TOPICAL BID PRN (Reason: Skin Irritation) RF: 0 vitamin B complex [B-Complex] Tablet 1 tab PO QAM RF: 0 folic acid 1 mg Tablet 1 mg PO QAM RF: 0 coenzyme Q10 [CoQ-10] 100 mg Capsule 100 mg PO QAM RF: 0 magnesium oxide 400 mg Capsule 400 mg PO QAM RF: 0 Medical Marijuana 1 ml sublingual BID RF: 0 sertraline [Zoloft] 50 mg tablet 50 mg PO HS RF: 0 acetaminophen 500 mg Capsule 500 mg PO QID PRN (Reason: Pain) RF: 0 L.acidoph-B.lactis-B.longum 15 billion cell Capsule 1 cap PO QAM RF: 0 phenazopyridine [Pyridium] 200 mg tablet 200 mg PO Q8H PRN (Reason: pain) Qty: 10 RF: 0 Referrals Referrals: Reynold Villegas MD [Primary Care Provider] -
[2021-08-10] MEDS ORDERED: SODIUM CHLORIDE 0.9% 1000ML 500 ML IV ONE ×2 (00:12→14:42)
[2021-08-10] MEDS ORDERED: SODIUM CHLORIDE 0.9% 1000ML 1,000 ML IV SCH (00:15)
[2021-08-10] MEDS ORDERED: RASPBERRY SYRUP 5 ML UDP PO STA (01:05)
--- NOTE | 2021-08-10 01:10 | History & Physical Report ---
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 Patient was transfused with 1u platelets prior to arrival this afternoon. Ddx for thrombocytopenia is broad - in this patient may be secondary to worsening MDS, complication of Vidaza treatment. Possible infection/sepsis as patient presenting with SIRS 3/4. ?ITP, less likely TTP. Patient had been on Lovenox in the past for history of hypercoagulable state secondary to Prothrombin mutation but has not received since May. Presently no active bleeding -Admit to medical with telemetry -Check peripheral blood smear -Check Lyme - (doubtful, however, fever + thrombocytopenia + high endemic rate of Lyme) -Will order IVIG 1gm/kg to be administered today at 09:00 per direction of Hematology -Hematology consultation appreciated -Monitor CBC, platelet count (2) Sepsis: Plan: Patient with fever, tachycardia, leukopenia and borderline low blood pressures in the ER. She has been given IVF/crystalloid resuscitation with improvement. Unclear source. Patient was neutropenic on labs from yesterday - unable to obtain differential on today's CBC secondary to low WBC count - will assume patient is still neutropenic -Maintain neutropenic precautions -Follow cultures - blood and urine - sent in ER -Empiric Vancomycin and Cefepime (3) Pancytopenia: Plan: Possibly secondary to worsening MDS. Patient has received Procrit as well as transfusion of platelets -Continue to monitor -Hematology consultation appreciated (4) UTI (urinary tract infection): Plan: Patient with budding yeast present in in urine as well as elevated WBC, LE, blood. Has history of non-julia albicans in the urine previously. She is presumably neutropenic and has ureteral stents in place. -Follow culture -Diflucan 200mg po daily -Consider Urology consultation re: stent exchange -Continue Pyridium PRN (5) Obstructive sleep apnea: Plan: Chronic. Patient has not been issued CPAP as of yet. She uses 1L O2 by SC qHS -Continue nocturnal O2 (6) Obstructive uropathy: Plan: Chronic. Patient has ureteral stents in place for chronic obstruction. She follows with Urology and typically undergoes stent exchange q 3 months - last seen on 08/02/21. She is to have stent exchange coordinated between Urology and Oncology pending improvement in platelet counts. Last performed on 05/30/[address] Cervantes. (7) Hx of Clostridium difficile infection: Plan: Patient with history of C. diff - is on Vancomycin PO twice weekly as well as daily probiotic -Will increase Vancomycin to 125mg po daily while on broad spectrum antibiotics -Provide shortest course of antibiotics as possible -Continue daily probiotic (8) Cirrhosis: Plan: Secondary to HCV and EtOH use in the past. Compensated -Monitor (9) Chronic kidney disease, stage III (moderate): Plan: Near baseline values. Patient is urinating without difficulty -Avoid nephrotoxic agents -Monitor BUN, Cr, electrolytes (10) COPD (chronic obstructive pulmonary disease): Plan: Chronic. Patient denies cough, SOB or wheeze. -Continue Symbicort -Albuterol as needed -Continue Zyrtec (11) Depression: Plan: Chronic -Continue Sertraline 50mg po qHS -Continue Clonazepam 1mg po qHS -Patient may use medical marijuana as directed (12) Prothrombin [id number] mutation: Plan: Patient was previously receiving Lovenox through Anticoagulation clinic. Has been on hold of late secondary to low platelet count. No complaints consistent with new VTE. -Continue to hold Lovenox in setting of thrombocytopenia with platelets = 8 (13) Migraine: Plan: Chronic. Patient presently without migraine. She is on several medications for migraine as needed -Continue Topamax at home dosing -Will hold PRN migraine agents for now (14) Celiac disease: Plan: Chronic. Well controlled. Patient adheres to gluten free diet -Continue gluten free diet as tolerated Plan: F/E/N - LR at 80mL/hr x 1 liter, continue po K, monitor electrolytes, gluten free diet as tolerated Ppx - Avoid chemoppx in setting of thrombocytopenia Code - Ful per discussion with patient Dispo - Admit to medical with telemetry History of Present Illness Chief Complaint: thrombocytopenia Primary Care Provider: Reynold Villegas MD Aleja Duron is a 66yo female with complex medical history, most notably for recently diagnosed Myelodysplastic Syndrome (by bone marrow biopsy performed on 07/09/21) with chronic pancytopenia. Patient follows with Oncology and is currently receiving chemotherapy with Vidaza (Azacitidine) as well as Procrit injections. Patient had routine blood work performed yesterday which revealed WBC=1.27, Hgb=8.8, Hct=26.7 and platelets of 7. Neutropenic on labs yesterday with Neut# 0.13 as well as lymphopenia and some schistocytes. She received a Procrit injection yesterday and a platelet transfusion today. Repeat CBC following transfusion of 1u platelets with Plt=8. Patient states she has had one day of fever to 104, headache, fatigue and chills. She has persistent feeling of abdominal fullness and occasional discomfort but reports no acute worsening of these symptoms. Also with occasional nausea and diarrhea at baseline with no acute worsening. She denies cough, SOB, chest pain, palpitations. Denies urinary complaints. She has occasional nosebleeds but nothing recently. Denies rash, bleeding gums or mucosal bleeding. Denies numbness/tingling/weakness. No additional complaints at this time. In the ER patient febrile at 38.3, regular tachycardia at 112 bpm, blood pressure borderline low 88-101 / 48-63. ER Course: NSS 2.5L, Vancomycin 1250mg, Cefepime 2gm, Tylenol 650mg Allergies Allergy/AdvReac Type Severity Reaction Status Date / Time bee venom protein (honey bee) Allergy Severe Difficulty Verified 08/10/21 00:02 Breathing adhesive Allergy Intermediate Red torn Verified 08/10/21 00:02 skin Iodinated Contrast Media Allergy Intermediate Hives Verified 08/10/21 00:02 iodine Allergy Intermediate Hives Verified 08/10/21 00:02 levofloxacin Allergy Intermediate numbness/we Verified 08/10/21 00:02 akness pregabalin Allergy Intermediate fever?/?cher Verified 08/10/21 00:02 h strawberry Allergy Intermediate Hives Verified 08/10/21 00:02 Sulfa (Sulfonamide Allergy Intermediate Rash, hives Verified 08/10/21 00:02 Antibiotics) allopurinol Allergy Mild Rash Verified 08/10/21 00:02 ceftriaxone [From Rocephin] Allergy Mild Rash Verified 08/10/21 00:02 piperacillin [From Zosyn] Allergy Mild Rash Verified 08/10/21 00:02 tazobactam [From Zosyn] Allergy Mild Rash Verified 08/10/21 00:02 venlafaxine Allergy Unknown Unknown Verified 08/10/21 00:02 gluten AdvReac Severe Celiac Dz Verified 08/10/21 00:02 = GI symptoms propoxyphene AdvReac Intermediate DIRECTOR TELEVISION side Verified 08/10/21 00:02 effects Home Medications Medication Instructions Recorded Confirmed Type butorphanol 10 mg/mL nasal spray 1 spray INTRANASAL Q3H PRN 07/16/18 08/10/21 History cetirizine 10 mg tablet (Zyrtec) 10 mg PO QAM 07/16/18 08/10/21 History folic acid 1 mg tablet 1 mg PO QAM 07/16/18 08/10/21 History magnesium oxide 400 mg PO QAM 07/16/18 08/10/21 History multivitamin 1 tab PO QAM 07/16/18 08/10/21 History triamcinolone acetonide 0.025 % 1 applic TOPICAL BID PRN 07/16/18 08/10/21 History topical cream vitamin B complex (B-Complex) 1 tab PO QAM 07/16/18 08/10/21 History calcium carbonate-vitamin D3 600 1 tab PO QPM 11/26/18 08/10/21 History mg (1,500 mg)-800 unit tablet (Caltrate with Vitamin D3) cyanocobalamin (vitamin B-12) 1,000 mcg IM MONTHLY 02/10/19 08/10/21 History 1,000 mcg/mL injection solution ferrous sulfate 325 mg (65 mg 325 mg PO QAM 02/10/19 08/10/21 History iron) tablet (iron) psyllium husk 0.52 gram capsule 1.04 g PO QAM 08/28/19 08/10/21 History (Metamucil) vitamin E 400 unit capsule 400 unit PO QAM 08/28/19 08/10/21 History Medical Marijuana 1 ml SUBLINGUAL UD PRN 06/27/20 08/10/21 History denosumab 60 mg/mL subcutaneous 60 mg SUBCUT .q 6 months ml 12/17/20 08/10/21 History syringe (Prolia) acetaminophen 500 mg capsule 500 mg PO QID PRN 01/24/21 08/10/21 History gabapentin 400 mg capsule 400 mg PO QAM 30 Days #30 cap 01/27/21 08/10/21 Rx (Neurontin) potassium chloride 20 mEq 20 meq PO QAM #30 tab 01/27/21 08/10/21 Rx tablet,extended release L.acidophilus-B.lactis-B.longum 15 1 cap PO QAM 02/03/21 08/10/21 History billion cell capsule quetiapine 50 mg tablet (Seroquel) 50 mg PO HS #30 tab 02/25/21 08/10/21 Rx ergocalciferol (vitamin D2) 1,250 50,000 unit PO WEEKLY #12 cap 02/28/21 08/10/21 Rx mcg (50,000 unit) capsule vancomycin 125 mg capsule 125 mg PO 2XWK #30 cap 03/29/21 08/10/21 Rx albuterol sulfate 90 mcg/actuation 2 puff INHALATION QID PRN #8.5 gm 04/22/21 08/10/21 Rx aerosol inhaler (ProAir HFA) sertraline 50 mg tablet (Zoloft) 50 mg PO HS 05/19/21 08/10/21 History metoprolol succinate 50 mg 25 mg PO QAM #45 tab 05/23/21 08/10/21 Rx tablet,extended release 24 hr phenazopyridine 200 mg tablet 200 mg PO Q8H PRN #10 tab 05/30/21 08/10/21 Rx (Pyridium) Auto Titrating CPAP #1 ea 06/01/21 08/02/21 Rx CPAP Supplies #1 ea 06/01/21 08/02/21 Rx clonazepam 1 mg tablet 1 mg PO HS #30 tab 06/17/21 08/10/21 Rx acyclovir 400 mg tablet 400 mg PO BID #60 tab 06/21/21 08/10/21 Rx methocarbamol 750 mg tablet 750 mg PO BID PRN #60 tab 06/21/21 08/10/21 Rx rizatriptan 10 mg tablet 10 mg PO DAILY PRN #9 tab 06/21/21 08/10/21 Rx topiramate 100 mg tablet (Topamax) 100 mg PO .COMPLEX 30 Days #90 tab 06/21/21 08/10/21 Rx budesonide-formoterol HFA 80 2 puff INHALATION BID #10.2 g 06/23/21 08/10/21 Rx mcg-4.5 mcg/actuation aerosol inhaler (Symbicort) oxybutynin chloride 10 mg 10 mg PO QAM #90 tab 07/14/21 08/10/21 Rx tablet,extended release 24 hr cephalexin 500 mg capsule 500 mg PO QAM #30 cap 07/15/21 08/10/21 Rx mirabegron 50 mg tablet,extended 50 mg PO HS #90 tab 07/25/21 08/10/21 Rx release 24 hr (Myrbetriq) ydactjafdu-axypyyirfxheh-esnwvkaz 1 tab PO DAILY PRN 08/10/21 08/10/21 History 50 mg-325 mg-40 mg tablet (Esgic) coQ10 (ubiquinol) 200 mg capsule 200 mg PO QAM 08/10/21 08/10/21 History doxycycline hyclate 100 mg capsule 100 mg PO QAM 08/10/21 08/10/21 History Past Med/Surg History Medical History (Updated 08/10/21 @ 02:08 by Sarah Kay DO) Asthma Celiac disease Cellulitis Recurrent B/L LE - on prophylactic abx (Follows with Dr. Nielson). on chronic Cephalexin and Doxy Chronic back pain Chronic kidney disease Stage III > follows Dr. Fleming Chronic obstructive pulmonary disease Emphysema Cirrhosis of liver Hx of Hep C with cirrhosis Depression History of blood transfusion History of recurrent UTI (urinary tract infection) Hx MRSA infection several yrs ago Hx of cancer of lung s/p radiation (2012), recurrence (2019 in [facility]) s/p radiation- follows with heme/onc Hx of Clostridium difficile infection on Vanco 2x/week for prophylaxis Hx of deep venous thrombosis LLE (1976) Hx of hepatitis C 2013 > "resolved" Hx of non-Hodgkin's lymphoma s/p treatment in 2013 Hydronephrosis b/l chronic hydronephrosis requiring routine stent exchanges Hyperlipidemia Insomnia Migraine Mood disorder Obstructive sleep apnea 1L O2 HS Osteoporosis Poor historian R/t hx stroke Prediabetes diet control 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 Pagan Thrombocytopenia Chronic (platelet baseline in the 40-70s over the past few months) Venous stasis dermatitis Surgical History H/O bursectomy Right knee History of bone marrow biopsy History of bronchoscopy History of carpal tunnel release Left History of cystoscopy Multiple Bilateral Retrograde Pyelogram (05/27/21): MAC at [facility] History of esophagogastroduodenoscopy (EGD) History of liver biopsy History of tooth extraction History of ureter stent MULTIPLE Hx of bladder repair surgery FOR PROLAPSE Hx of colonoscopy Hx of tonsillectomy Hx of tubal ligation Family History Unknown Heart disease Hypertension Mother Psoriasis Diabetes Social History Smoking Status: Former smoker Tobacco Type: Cigarettes Cigarettes Per Day: Quit 02/2011; Second Hand Exposure: Yes; Hx Alcohol Use: No Hx Substance Use: Yes Last Used Substance: Just Prior to Arrival Last Used Substance Other:: medical marijuanna Substance Use Type Other:: medical marijuana card Preferred Language: Armenian Communication Ability: Effective Visual Impairment: No Limitations Hearing Ability: Normal Soundscriber Mechanic Required: No Beliefs That Will Affect Care: None Current Living Situation: Family Current Living Situation Comment: Son and son's girlfriend current occupational status: retired Feels Safe at Home: Yes Assistive Devices: Denture - Upper, Denture - Lower and Glasses Review of Systems Review of Systems: All systems reviewed & are unremarkable except as noted in HPI & below Physical Exam Physical Exam: General: patient resting comfortably, NAD, non-toxic in appearance, AA&O x 3 Skin: warm, dry, intact, scattered bruising on forearms and LE, no petechiae, no mucosal bleeding HEENT: NC/AT, PERRL, EOMI, anicteric sclera, conjunctiva without injection, external ear normal to inspection and nontender, nares patent, dry mucus membranes, dentition intact, no oropharyngeal lesions, neck supple, trachea midline, no LAD, no thyromegaly, no JVD Heart: +S1/S2, regular, no m/r/g Lungs: equal air entry bilaterally, no rales/rhonchi/wheezes Abd: +BS, soft, NT/ND, no masses/organomegaly/ascites Ext: warm, 2+ pulses in UE/LE bilaterally, no clubbing/cyanosis or edema Neuro: nonfocal, patient AA&O x 4, speech intact, no facial droop, moving all extremities on command with equal strength 5/5 Results & Data Results & Data ([facility]) Vital Signs (Past 12 Hours) Vital Signs Temp Pulse Pulse Resp BP BP Pulse Ox 08/10/21 00:30 91 H 19 109/63 100 08/10/21 00:00 91 H 14 88/53 L 99 08/09/21 23:30 90 20 101/49 L 100 08/09/21 22:45 86 17 88/49 L 97 08/09/21 22:02 37.6 C H 100 H 96 H 21 88/54 L 98 08/09/21 19:36 38.3 C H 112 H 18 110/48 L 95 Laboratory Results Laboratory Results WBC 0.44 K/uL (4.8-10.8) L* 08/09/21 19:20 RBC 2.72 M/uL (4.2-5.4) L 08/09/21 19:20 Hgb 8.0 g/dL (12.0-16.0) L 08/09/21 19:20 Hct 24.0 % (37-47) L 08/09/21 19:20 MCV 88.2 fL (80-100) 08/09/21 19:20 MCH 29.4 pg (25-34) 08/09/21 19:20 MCHC 33.3 g/dL (32-36) 08/09/21 19:20 RDW Std Deviation 60.8 fL (36.4-46.3) H 08/09/21 19:20 RDW Coeff of Irasema 18.9 % (11.5-14.5) H 08/09/21 19:20 Plt Count 8 K/uL (130-400) L* 08/09/21 19:20 Immature Gran % (Auto) Cancelled 08/09/21 19:20 Neut % (Auto) Cancelled 08/09/21 19:20 Lymph % (Auto) Cancelled 08/09/21 19:20 Dawson % (Auto) Cancelled 08/09/21 19:20 Eos % (Auto) Cancelled 08/09/21 19:20 Baso % (Auto) Cancelled 08/09/21 19:20 Neut # (Auto) Cancelled 08/09/21 19:20 Lymph # (Auto) Cancelled 08/09/21 19:20 Dawson # (Auto) Cancelled 08/09/21 19:20 Eos # (Auto) Cancelled 08/09/21 19:20 Baso # (Auto) Cancelled 08/09/21 19:20 Immature Gran # (Auto) Cancelled 08/09/21 19:20 Absolute Nucleated RBC 0.02 K/uL (0-0) H 08/09/21 19:20 Nucleated RBC % (auto) 5.3 % 08/09/21 19:20 Neutrophils % (Manual) Cancelled 08/09/21 19:20 Band Neutrophils % Cancelled 08/09/21 19:20 Lymphocytes % (Manual) Cancelled 08/09/21 19:20 Prolymphocyte % Cancelled 08/09/21 19:20 Reactive Lymphs % (Man) Cancelled 08/09/21 19:20 Monocytes % (Manual) Cancelled 08/09/21 19:20 Eosinophils % (Manual) Cancelled 08/09/21 19:20 Basophils % (Manual) Cancelled 08/09/21 19:20 Metamyelocytes % (Man) Cancelled 08/09/21 19:20 Myelocytes % (Man) Cancelled 08/09/21 19:20 Promyelocytes % (Man) Cancelled 08/09/21 19:20 Blast Cells % (Manual) Cancelled 08/09/21 19:20 Plasma Cell % (Manual) Cancelled 08/09/21 19:20 Other Cells % Cancelled 08/09/21 19:20 Nucleated RBC % Cancelled 08/09/21 19:20 Neutrophils # (Manual) Cancelled 08/09/21 19:20 Band Neutrophils # Cancelled 08/09/21 19:20 Total Absolute Neuts Cancelled 08/09/21 19:20 Lymphocytes # (Manual) Cancelled 08/09/21 19:20 Prolymphocyte # Cancelled 08/09/21 19:20 Reactive Lymphs # Cancelled 08/09/21 19:20 Total Abs Lymphocytes Cancelled 08/09/21 19:20 Monocytes # (Manual) Cancelled 08/09/21 19:20 Eosinophils # (Manual) Cancelled 08/09/21 19:20 Basophils # (Manual) Cancelled 08/09/21 19:20 Metamyelocytes # (Man) Cancelled 08/09/21 19:20 Myelocytes # (Manual) Cancelled 08/09/21 19:20 Promyelocytes # (Man) Cancelled 08/09/21 19:20 Blast Cells # (Man) Cancelled 08/09/21 19:20 Plasma Cell # (Manual) Cancelled 08/09/21 19:20 Other Cells # Cancelled 08/09/21 19:20 Nucleated RBCs # (Man) Cancelled 08/09/21 19:20 Hypersegmented Neuts Cancelled 08/09/21 19:20 Hyposegmented Neuts Cancelled 08/09/21 19:20 Hypogranular Neuts Cancelled 08/09/21 19:20 Large Granular Lymphs Cancelled 08/09/21 19:20 # Lrg Granular Lymphs Cancelled 08/09/21 19:20 Hairy Cells Cancelled 08/09/21 19:20 Smudge Cells Cancelled 08/09/21 19:20 Toxic Granulation Cancelled 08/09/21 19:20 Toxic Vacuolation Cancelled 08/09/21 19:20 Dohle Bodies Cancelled 08/09/21 19:20 Jean Carlos Rods Cancelled 08/09/21 19:20 Hypogranular Platelets Cancelled 08/09/21 19:20 Clumped Platelets Cancelled 08/09/21 19:20 Giant Platelets Cancelled 08/09/21 19:20 Platelet Satelliting Cancelled 08/09/21 19:20 RBC Morphology Cancelled 08/09/21 19:20 Polychromasia Cancelled 08/09/21 19:20 Hypochromasia Cancelled 08/09/21 19:20 Poikilocytosis Cancelled 08/09/21 19:20 Basophilic Stippling Cancelled 08/09/21 19:20 Anisocytosis Cancelled 08/09/21 19:20 Microcytosis Cancelled 08/09/21 19:20 Macrocytosis Cancelled 08/09/21 19:20 Spherocytes Cancelled 08/09/21 19:20 Pappenheimer Bodies Cancelled 08/09/21 19:20 Sickle Cells Cancelled 08/09/21 19:20 Target Cells Cancelled 08/09/21 19:20 Tear Drop Cells Cancelled 08/09/21 19:20 Ovalocytes Cancelled 08/09/21 19:20 Stomatocytes Cancelled 08/09/21 19:20 [place] Bodies Cancelled 08/09/21 19:20 Echinocytes Cancelled 08/09/21 19:20 Acanthocytes (Spur) Cancelled 08/09/21 19:20 Rouleaux Cancelled 08/09/21 19:20 RBC Agglutinates Cancelled 08/09/21 19:20 Schistocytes Cancelled 08/09/21 19:20 RBC Morph Comment Cancelled 08/09/21 19:20 Sezary Cell Cancelled 08/09/21 19:20 Sodium 140 mmol/L (136-145) 08/09/21 19:20 Potassium 4.5 mmol/L (3.5-5.1) 08/09/21 19:20 Chloride 113 mmol/L (98-107) H 08/09/21 19:20 Carbon Dioxide 23 mmol/L (21-32) 08/09/21 19:20 Anion Gap 4.0 (3-11) 08/09/21 19:20 BUN 21 mg/dl (7-18) H 08/09/21 19:20 Creatinine 1.28 mg/dl (0.6-1.2) H 08/09/21 19:20 Est Cr Clr Drug Dosing 32.6 ml/min 08/09/21 19:20 Est GFR ( Amer) 50.4 ml/min 08/09/21 19:20 Est GFR (Non-Af Amer) 43.5 ml/min 08/09/21 19:20 BUN/Creatinine Ratio 16.1 (10-20) 08/09/21 19:20 Glucose 139 mg/dl (70-99) H 08/09/21 19:20 Lactate 0.7 mmol/L (0.4-2.0) 08/09/21 22:26 Calcium 8.0 mg/dl (8.5-10.1) L 08/09/21 19:20 Total Bilirubin 0.5 mg/dl (0.2-1) 08/09/21 19:20 AST 18 U/L (15-37) 08/09/21 19:20 ALT 41 U/L (12-78) 08/09/21 19:20 Alkaline Phosphatase 87 U/L (45-117) 08/09/21 19:20 Total Protein 6.5 gm/dl (6.4-8.2) 08/09/21 19:20 Albumin 3.2 gm/dl (3.4-5.0) L 08/09/21 19:20 Globulin 3.3 gm/dl (2.5-4.0) 08/09/21 19:20 Albumin/Globulin Ratio 1.0 (0.9-2) 08/09/21 19:20 Procalcitonin 0.12 ng/ml (0-0.5) 08/09/21 22:26 Urine Color Yellow 08/09/21 19:20 Urine Appearance Clear (Clear) 08/09/21 19:20 Urine pH 6.5 (4.5-7.5) 08/09/21 19:20 Ur Specific [place] 1.020 (1.000-1.030) 08/09/21 19:20 Urine Protein 3+ (Negative) H 08/09/21 19:20 Urine Glucose (UA) Negative (Negative) 08/09/21 19:20 Urine Ketones Negative (Negative) 08/09/21 19:20 Urine Blood 3+ (Negative) H 08/09/21 19:20 Urine Nitrite Negative (Negative) 08/09/21 19:20 Urine Bilirubin Negative (Negative) 08/09/21 19:20 Urine Urobilinogen Negative (Negative) 08/09/21 19:20 Ur Leukocyte Esterase Trace (Negative) H 08/09/21 19:20 Urine RBC 10-30 /hpf (0-4) H 08/09/21 19:20 Urine WBC 10-30 /hpf (0-5) H 08/09/21 19:20 Ur Epithelial Cells 0-5 /lpf (0-5) 08/09/21 19:20 Urine Bacteria Negative (Negative) 08/09/21 19:20 Urine Yeast Budding (None Prsent) A 08/09/21 19:20 COVID-19 Eval Order Covid19 at [facility] 08/10/21 01:10 Impressions Chest X-Ray 08/09/21 19:38 SINGLE VIEW CHEST CLINICAL HISTORY: Fever. Lung cancer. FINDINGS: An AP, portable, upright chest radiograph is compared to study dated 05/31/2021 and correlated with chest CT dated 08/01/2021 and PET/CT dated 02/02/2021. The cardiomediastinal silhouette is unremarkable noting atherosclerotic calcification of the thoracic aorta. Advanced emphysema and chronic interstitial thickening is similar to previous. Parenchyma scarring in the right upper lobe is unchanged. Airspace opacities are again seen at the right lung base. No large pleural effusion or pneumothorax is identified. The skeletal structures are osteopenic. Thickening and sclerosis of the right anterior upper ribs is similar to previous. There is chronic posttraumatic deformity of the left proximal humerus. IMPRESSION: 1. No significant change as compared to the 08/01/2021 CT scan. 2. Patchy airspace opacities are again seen at the right lung base. This is unchanged over several prior examinations. 3. Emphysema and treatment related changes as above. ACT 112: Negative or not required by law. Electronically signed by: Zohaib Montoya M.D. 08/09/2021 8:[address] Head - per STAT rad - no evidence of acute intracranial abnormality. Stable chronic changes of mild volume loss, small vessel disease and focal areas of encephalomalacia in the left parietal lobe and left cerebellum. Partially visualized paranasal sinuses and mastoid air cells are clear. ECG Additional Comments: EKG with ST at 110, normal axis, CI=420, QRS=64, CEv=489, nonspecific ST changes, no STEMI Code Status & VTE Plan VTE Prophylaxis Plan VTE Prophylaxis will be ordered: No PG Care Time/CCT Total # of Minutes Spent Total Time Spent with Patient: Total time spent is greater than 50% in c oordination of care (as documented) at patient's floor/unit and/or counseling patient: Coding Level of Care Code 38615 Initial Inpt Care Lvl 3 Diagnoses Thrombocytopenia D69.6 Sepsis A41.9 Sepsis acute organ dysfunction status: unspecified Sepsis type: sepsis due to unspecified organism Obstructive sleep apnea G47.33 Obstructive uropathy N13.9 Pancytopenia D61.818 Cirrhosis K74.60 Chronic kidney disease, stage III (moderate) N18.30 Chronic kidney disease stage 3 subtype: unspecified whether 3a or 3b COPD (chronic obstructive pulmonary disease) J44.9 Depression F32.9 Prothrombin [id number] mutation D68.52 Migraine G43.909 UTI (urinary tract infection) N39.0 Hx of Clostridium difficile infection Z86.19 Celiac disease K90.0 (1) Chronic kidney disease, stage III (moderate) Chronic kidney disease stage 3 subtype: unspecified whether 3a or 3b Qualified Code(s): N18.30 - Chronic kidney disease, stage 3 unspecified (2) Sepsis Sepsis acute organ dysfunction status: unspecified Sepsis type: sepsis due to unspecified organism Qualified Code(s): A41.9 - Sepsis, unspecified organism
[2021-08-10] MEDS ORDERED: ALBUTEROL 0.5% NEB SOLN 2.5 MG/0.5 ML VIAL NEB PRN (04:24)
[2021-08-10] MEDS ORDERED: PHENAZOPYRIDINE HCL 200 MG TAB PO PRN (04:24)
[2021-08-10] MEDS ORDERED: VANCOMYCIN CONSULT ACTIVE PRN (04:24)
[2021-08-10] MEDS ORDERED: ACETAMINOPHEN 325 MG TAB ONE (04:29)
[2021-08-10] MEDS: ACETAMINOPHEN 325 MG TAB PO PRN ×2 (04:30→11:32)
[2021-08-10] MEDS ORDERED: LACTATED RINGER'S 1,000 ML IV SCH (05:00)
[2021-08-10] MEDS ORDERED: MEDICAL MARIJUANA INH PRN (05:02)
[2021-08-10 05:22] LABS: Lyme Ab IgG w/WB Rflx Negative (Negative)
[2021-08-10 05:45] LABS: Lyme Ab IgM w/WB Rflx Equivocal (Negative)
--- NOTE | 2021-08-10 07:42 | CT Scan Report ---
CT head/brain wo con CLINICAL HISTORY: Headache, fever, low platelets Technique: Contiguous axial CT images of the head were acquired from the base of the skull to the sheron yari without intravenous contrast administration. Images were viewed in brain, subdural and bone [facility]. Automated dose lowering techniques and/or adjustment according to patient size were utilized for this exam. Comparison: Comparison is made to CT head 01/03/2021 Findings: A region of encephalomalacia is seen in the left posterior MCA territory. Age related white matter ch anges are seen. Choroidal calcifications are incidentally noted. Imaged portions of the paranasal sinuses and mastoid air cells are clear. The orbits appear normal. There are no acute fractures of the calvaria or scalp swelling. Impression: No acute intracranial hemorrhage, evidence of acute territorial infarction, or other acute intracrani al disease process. ACT 112: Negative or not required by law. Electronically signed by: James Castañeda M.D. 08/10/2021 7:40 AM
[2021-08-10 08:22] LABS: Folate (Folic Acid) > 20.00 ng/ml (>5.38); Vitamin B12 1602 pg/ml (193-986)
--- NOTE | 2021-08-10 08:55 | Hospitalist Progress Note ---
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 Patient was transfused with 1u platelets prior to arrival this afternoon. Ddx for thrombocytopenia is broad - in this patient may be secondary to worsening MDS, complication of Vidaza treatment. Possible infection/sepsis as patient presenting with SIRS 3/4. ?ITP, less likely TTP. Patient had been on Lovenox in the past for history of hypercoagulable state secondary to Prothrombin mutation but has not received since May. Presently no active bleeding -Admit to medical with telemetry -Check peripheral blood smear -Check Lyme - equivocal test results, add doxy to regimen -Will order IVIG 1gm/kg to be administered today at 09:00 per direction of Hematology -Hematology consultation appreciated -Monitor CBC, platelet count (2) Sepsis: Plan: Patient with fever, tachycardia, leukopenia and borderline low blood pressures in the ER. She has been given IVF/crystalloid resuscitation with improvement. Unclear source. Patient was neutropenic on labs from yesterday - unable to obtain differential on today's CBC secondary to low WBC count - will assume patient is still neutropenic -Maintain neutropenic precautions -Follow cultures - blood and urine - sent in ER -Empiric Vancomycin and Cefepime, added doxy due to lyme testing (3) Pancytopenia: Plan: Possibly secondary to worsening MDS. Patient has received Procrit as well as transfusion of platelets -Continue to monitor -Hematology consultation appreciated (4) UTI (urinary tract infection): Plan: Patient with budding yeast present in in urine as well as elevated WBC, LE, blood. Has history of non-julia albicans in the urine previously. She is presumably neutropenic and has ureteral stents in place. -Follow culture -Diflucan 200mg po daily -Consider Urology consultation re: stent exchange -Continue Pyridium PRN (5) Obstructive sleep apnea: Plan: Chronic. Patient has not been issued CPAP as of yet. She uses 1L O2 by ID qHS -Continue nocturnal O2 (6) Obstructive uropathy: Plan: Chronic. Patient has ureteral stents in place for chronic obstruction. She follows with Urology and typically undergoes stent exchange q 3 months - last seen on 08/02/21. She is to have stent exchange coordinated between Urology and Oncology pending improvement in platelet counts. Last performed on 05/30/[address] Cervantes. (7) Hx of Clostridium difficile infection: Plan: Patient with history of C. diff - is on Vancomycin PO twice weekly as well as daily probiotic -Will increase Vancomycin to 125mg po qid, until toxin test is returned, while on broad spectrum antibiotics -Provide shortest course of antibiotics as possible -Continue daily probiotic (8) Cirrhosis: Plan: Secondary to HCV and EtOH use in the past. Compensated -Monitor (9) Chronic kidney disease, stage III (moderate): Plan: Near baseline values. Patient is urinating without difficulty -Avoid nephrotoxic agents -Monitor BUN, Cr, electrolytes (10) COPD (chronic obstructive pulmonary disease): Plan: Chronic. Patient denies cough, SOB or wheeze. 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 Has been on hold of late secondary to low platelet count. No complaints consistent with new VTE. -Continue to hold Lovenox in setting of thrombocytopenia with platelets = 8 (13) Migraine: Plan: Chronic. Patient presently without migraine. She is on several medications for migraine as needed -Continue Topamax at home dosing -Will hold PRN migraine agents for now (14) Celiac disease: Plan: Chronic. Well controlled. Patient adheres to gluten free diet -Continue gluten free diet as tolerated Plan: F/E/N - LR at 80mL/hr x 1 liter, continue po K, monitor electrolytes, gluten free diet as tolerated Ppx - Avoid chemoppx in setting of thrombocytopenia Code - Ful per discussion with patient Dispo - Admit to medical with telemetry Admission and Anticipated Discharge Date Admission Date: August 10, 2021 Subjective this pt is weak and tired, she has had some diarrhea in the ER but formed stool upstairs. she has no signs of blood loss, initial problems felt secondary to myelodysplastic issues from the treatment of previous cancers, she has had lower blood pressures from illness. Review of Systems Review of Systems: Moderate distress and fatigue no headache, no visual changes no speech or swallowing issues no chest pain, pressure or palpitations Mild shortness of breath, no cough or wheezes no abdominal pain, nausea or vomiting, diarrhea or constipation no dysuria, hematuria or frequency no focal joint pain or swelling no back pain, CVA tenderness or radicular pain no bruising, bleeding or rashes no focal signs of weakness or numbness or altered sensation no complaints of anxiety or depression.. Physical Exam Physical Exam: The patient appeared well nourished and normally developed. Vital signs as documented. Head exam is normocephalic atraumatic Neck is without JVD, thyromegaly, or carotid bruits. Lungs are clear to auscultation, no focal loss of breath sounds Cardiac exam, Rhythm is tachycardic. No murmurs, rubs or gallops. Abdominal exam reveals normal bowel sounds, soft non tender, no masses Extremities are nonedematous and both pedal pulses are present Neurologic exam is alert and oriented, no focal loss of strength or sensation Skin is without bruises or rashes Psychologically is without concerns for anxiety or depression Results & Data Results & Data ([facility]) Vital Signs (Past 12 Hours) Vital Signs Temp Pulse Pulse Resp BP BP Pulse Ox 08/10/21 06:37 100.0 F H 122 H 19 106/55 L 99 08/10/21 06:00 100.4 F H 115 H 17 114/76 98 08/10/21 05:30 117 H 21 102/49 L 99 08/10/21 05:00 108 H 20 98/57 L 100 08/10/21 04:30 100.4 F H 113 H 29 H 113/70 99 08/10/21 04:00 94 H 17 121/54 L 99 08/10/21 03:30 97 H 22 112/54 L 98 08/10/21 03:00 92 H 21 110/59 L 100 08/10/21 02:30 92 H 26 H 117/55 L 100 08/10/21 01:30 87 19 99/49 L 99 08/10/21 00:30 91 H 19 109/63 100 08/10/21 00:00 91 H 14 88/53 L 99 08/09/21 23:30 90 20 101/49 L 100 08/09/21 22:45 86 17 88/49 L 97 08/09/21 22:02 99.7 F H 100 H 96 H 21 88/54 L 98 PG Care Time/CCT Total # of Minutes Spent Total Time Spent with Patient: Total time spent is greater than 50% in coordination of care (as documented) at patient's floor/unit and/or counseling patient: Coding Level of Care Code None Diagnoses Thrombocytopenia D69.6 Sepsis A41.9 Sepsis acute organ dysfunction status: unspecified Sepsis type: sepsis due to unspecified organism Pancytopenia D61.818 UTI (urinary tract infection) N39.0 Obstructive sleep apnea G47.33 Obstructive uropathy N13.9 Hx of Clostridium difficile infection Z86.19 Cirrhosis K74.60 Chronic kidney disease, stage III (moderate) N18.30 Chronic kidney disease stage 3 subtype: unspecified whether 3a or 3b COPD (chronic obstructive pulmonary disease) J44.9 Depression F32.9 Prothrombin [id number] mutation D68.52 Migraine G43.909 Celiac disease K90.0 (1) Chronic kidney disease, stage III (moderate) Chronic kidney disease stage 3 subtype: unspecified whether 3a or 3b Qualified Code(s): N18.30 - Chronic kidney disease, stage 3 unspecified (2) Sepsis Sepsis acute organ dysfunction status: unspecified Sepsis type: sepsis due to unspecified organism Qualified Code(s): A41.9 - Sepsis, unspecified organism
[2021-08-10] MEDS ORDERED: VANCOMYCIN HCL 125 MG/2.5ML SOLN PO SCH (09:00)
[2021-08-10] MEDS ORDERED: RASPBERRY SYRUP 5 ML UDP PO SCH (09:00)
[2021-08-10] MEDS ORDERED: IMMUNE GLOBULIN (HUMAN) SOLN IV ONE (09:00)
[2021-08-10 09:23] LABS: Creatinine Clr Calc Pharmacy 38.3 ml/min; Est GFR (African American) 61.3 ml/min; Est GFR (Non-African American) 52.9 ml/min
[2021-08-10] MEDS: IMMUNE GLOBULIN(HUMAN) 10% 100 ML IV SCH ×5 (10:02→19:49)
[2021-08-10] MEDS: ACYCLOVIR 400 MG TAB PO SCH ×2 (10:03→22:20)
[2021-08-10] MEDS: GABAPENTIN 400 MG CAP PO SCH (10:03)
[2021-08-10] MEDS: FLUCONAZOLE 100 MG TAB PO SCH (10:03)
[2021-08-10] MEDS: OXYBUTYNIN CHLORIDE XL 5 MG TABCR PO SCH (10:04)
[2021-08-10] MEDS: ADVANCED PROBIOTIC 1250 MG CAPSULE PO SCH (10:04)
[2021-08-10] MEDS: CETIRIZINE HCL 10 MG TABLET PO SCH (10:04)
[2021-08-10] MEDS: POTASSIUM CHLORIDE CRTAB 20 MEQ TABCR PO SCH (10:04)
[2021-08-10] MEDS: METOPROLOL SUCC 25MG EXT REL TAB PO SCH (10:05)
[2021-08-10] MEDS: MAGNESIUM OXIDE 400 MG TAB PO SCH (10:05)
[2021-08-10] MEDS: FLUTICASONE/VILANTEROL 200/25MCG 14 PUFFS/INHALER INH SCH (10:06)
[2021-08-10] MEDS: TOPIRAMATE 100 MG TAB PO SCH ×4 (10:07→22:22)
[2021-08-10] MEDS: VANCOMYCIN HCL 125 MG/2.5ML SOLN PO SCH ×4 (10:08→22:23)
--- NOTE | 2021-08-10 10:37 | Consultation Report ---
HEMATOLOGY CONSULTATION DATE OF SERVICE: 08/10/2021 REASON FOR CONSULTATION: Neutropenic fever and refractory thrombocytopenia. HISTORY OF PRESENT ILLNESS: Ascencion Duron is a pleasant and very complex 66-year-old female patient with multiple hematologic and oncologic diagnoses. 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 I was alerted by Ascencion Patel's family members. She was fevering impressively at 103-104. She was instructed to come to the Emergency Room for formal evaluation and admission to the hospital. Yesterday, Ascencion bonilla had come to [facility] for peripheral blood counts. Her platelet count was in single digits and thus orde red a platelet transfusion, which was carried out, and post-transfusion, platelet count only vera bo roximately 2000, from 7000 to 9000 to be precise. Thus, patient either has HLA mismatched antibodies or perhaps an antibody against her platelets consistent with ITP. We were planning to administer IV IG empirically prior to her presentation to the hospital. From a clinical standpoint, she has been b attling with fever and chills as well as intermittent nausea and diarrhea. In the Emergency Room, I instructed the ER physician to panculture and begin cefepime and vancomycin. ASCENCION PATEL HAS MULTIPLE AN TIMICROBIAL ALLERGIES. Her most recent diagnosis of myelodysplasia was established here a couple of months back. Beginning in April of this year, began to notice refractory anemia and thrombocytopenia. Bone marrow biopsy and aspiration was carried out confirming the diagnosis. She was recently starte d on 5-azacitidine and her last dose administered on 07/22. Generally speaking, 5-azacitidine in the setting of myelodysplasia can result in profound myelosuppression, so thus her significant decrease in counts is not all that surprising; however, the refractoriness of her platelet count is concerning . PAST MEDICAL HISTORY: Again, significant for marginal zone lymphoma and squamous cell carcinoma of t he lung, chronic obstructive pulmonary disease, chronic kidney disease, history of cellulitis, celiac disease, asthma, hyperlipidemia, mood disorder, obstructive sleep apnea, osteoporosis, prediabetes, stroke, venous stasis dermatitis, cirrhosis of the liver. PAST SURGICAL HISTORY: History of tubal ligation, tonsillectomy, colonoscopy, bladder repair surgery for prolapse, history of a ureter stent placement, history of tooth extraction, liver biopsy, EGD, b ilateral retrograde pyelogram, cystoscopy, carpal tunnel release, bronchoscopy, bone marrow biopsy an d bursectomy in the right knee. MEDICATIONS: The list is lengthy. Butorphanol nasal spray 1 spray intranasally q.3 hours p.r.n., ce tirizine 10 mg p.o. daily, folic acid 1 mg p.o. daily, magnesium oxide 400 mg p.o. daily, triamcinolo ne cream applied to affected area topically b.i.d., vitamin B complex 1 tablet p.o. daily, calcium ca rbonate with vitamin D3 600 mg 1 tablet p.o. q.p.m., cyanocobalamin 1000 mcg IM monthly, ferrous sulf ate 325 mg p.o. daily, vitamin E 400 mg p.o. daily, medical marijuana 1 mL sublingual as directed p.r .n., Prolia 60 mg subcutaneously q.6 months, gabapentin 400 mg p.o. daily, potassium chloride 20 mEq p.o. daily, quetiapine 50 mg p.o. at bedtime, vitamin D2 50,000 units p.o. weekly, vancomycin 125 mg p.o. q.2 weeks, albuterol sulfate 2 puffs inhaled q.i.d., sertraline 50 mg p.o. at bedtime, metoprolo l 25 mg p.o. daily, Pyridium 200 mg p.o. q.8 hours p.r.n., clonazepam 1 mg p.o. at bedtime, acyclovir 400 mg p.o. b.i.d., methocarbamol 750 mg p.o. b.i.d. p.r.n., rizatriptan 10 mg p.o. daily p.r.n., To pamax 100 mg p.o. daily, budesonide 2 puffs inhaled b.i.d., oxybutynin chloride 10 mg p.o. daily, ce phalexin 500 mg p.o. daily, Myrbetriq 50 mg p.o. at bedtime, butalbital/acetaminophen/caffeine 1 tabl et p.o. p.r.n., Coenzyme Q10 200 mg p.o. daily, doxycycline 100 mg p.o. daily. ALLERGIES: BEE VENOM, ADHESIVE, IV CONTRAST DYE, LEVOFLOXACIN, PREGABALIN, STRAWBERRIES, SULFA, ALLO PURINOL, CEFTRIAXONE, PIPERACILLIN/TAZOBACTAM, EFFEXOR, GLUTEN, PROPOXYPHENE. FAMILY HISTORY: Largely unknown. SOCIAL HISTORY: The patient is a reformed smoker. She is single, lives with her son and son's girlf pati. REVIEW OF SYSTEMS: CONSTITUTIONAL: Positive for fever and chills. She is not anorexic. SKIN: No rashes or lesions. No petechia or bruising. HEENT: Head is atraumatic. No current headache. She has history of migraine headaches, no visual d isturbances. No hearing loss, no sinus symptoms, sore throat or dysphagia. LYMPHATICS: Positive history of non-Hodgkin's lymphoma. No current lymphadenopathy. CARDIAC: No current angina or palpitations. PULMONARY: She is not acutely short of breath, dyspneic or orthopneic. No cough or hemoptysis. GASTROINTESTINAL: Positive for diarrhea and nausea. No current hematochezia, melena or nathan rectal bleeding. GENITOURINARY: Negative for hematuria, dysuria, or urinary incontinence. MUSCULOSKELETAL: Negative for arthralgias or myalgias. No focal muscle weakness. ENDOCRINE: Positive for diabetes. NEUROLOGIC: Negative for seizure disorder. Positive history for migraine headache and previous CVA. HEMATOLOGIC: Cytopenias attributable to 5-azacitidine. PHYSICAL EXAMINATION: GENERAL: A very pleasant 66-year-old female, awake, alert, appropriate, in no acute distress. VITAL SIGNS: Temperature 37.8, pulse 122, blood pressure 106/55, respirations 19. SKIN: Turgor is fair. Warm, dry, noncyanotic. Otherwise, no petechiae or ecchymosis noted. HEENT: Atraumatic, normocephalic. Eyes: PERRLA, EOMI. Sclerae nonicteric. No conjunctival inject ion. Nares patent without rhinorrhea or discharge. Throat clear. Tongue midline. No obvious mucos itis or thrush. NECK: Supple without palpable lymphadenopathy. HEART: Regular rate and rhythm. No clicks, rubs, murmurs or gallops. LUNGS: Clear to auscultation bilaterally. ABDOMEN: Soft, nontender, nondistended, without palpable hepatosplenomegaly. EXTREMITIES: No calf tenderness or swelling. No clubbing, cyanosis or edema. NEUROLOGICAL: She is awake, alert and oriented x3. Cranial nerves grossly intact. LABORATORY DATA: WBC count 440, hemoglobin 8, platelet count 8000. Sodium 140, potassium 4.5, chlor sapna 113, carbon dioxide 23, creatinine 1.28, BUN 21, albumin 3.2. Urine: 3+ protein, 3+ blood, WBCs and RBCs are both elevated, leukocyte esterase is also elevated. RADIOGRAPHIC DATA: Head CT: No acute intracranial hemorrhage, evidence of acute tentorial infarctio n or other intracranial disease process. Chest x-ray: No significant changes compared to 08/01 CT sc an. Patchy airspace opacities again seen for right lung base, unchanged. IMPRESSION: 1. Neutropenic fever. 2. Refractory thrombocytopenia, myelosuppression versus idiopathic thrombocytopenic purpura. 3. Myelodysplasia. 4. Impending sepsis. 5. Urinary tract infection. 6. History of Clostridium difficile colitis. 7. Chronic kidney disease. 8. Chronic obstructive pulmonary disease. 9. History of non-small cell lung cancer. 10. History of non-Hodgkin's lymphoma. PLAN: I have been asked to render opinion on Ascencion Duron, a longstanding patient of [facility], I have f ollowed her for years. Has multiple oncologic and hematologic diagnoses. Most recently was diagnose d with myelodysplasia and started on 5-azacitidine. She received her first cycle, which completed on 07/22. Ascencion Patel's hemoglobin and platelets began dropping earlier this spring. The patient had been followed by Flory Stevenson, physician travel assistant and astutely had her undergo bone marrow biopsy an d aspiration, which confirmed most likely a secondary myelodysplasia. She was started on 5-azacitidi ne, not surprisingly has become severely myelosuppressed as most patients do in the early phases of t reatment. However, much more concerned with refractory thrombocytopenia despite receiving platelet t ransfusion yesterday and went from 7000 to 9000, which is considered refractory. Thus, there may be an HLA mismatch or perhaps an antibody against her platelets. Therefore, I recommend IVIG 1 gram/kg daily x2. Obviously, we need daily peripheral blood counts. She is on broad-spectrum antibiotics an d has been pancultured. I spoke to the admitting hospitalist from overnight and Ascencion Patel is covered w ith antifungals and antivirals as well. She seems to be doing a bit better with fluid resuscitation. We would hold off on transfusion and do not want her to have a growth factor at this point. We delilah l continue to follow her closely during her hospital stay. Thank you very much for allowing me to participate in her care. Job ID: [id number]
--- NOTE | 2021-08-10 10:46 | Pharmacy Report ---
Pharmacy Vanc AUC Short Note - Date of Service August 10, 2021 - Assessment & Plan Assessment 66 year old F receiving vancomycin and cefepime empirically for treatment of neutropenic fever. Current abx duration ordered for 48 hours. Bcx and ucx pending Day # 2 of antimicrobial therapy. Plan Vancomycin * AUC/SCOTT is the preferred PK/PD target for vancomycin * AUC guided dosing is effective and associated with decreased risk of nephrotoxicity compared to traditional trough targets * Predicted steady state trough level of 15.3 mcg/mL is predicted to achieve target AUC/SCOTT of 400-600 mg/L.hr and may be associated with a 11 % risk of nephrotoxicity * Loading dose of 1250mg X 1 ordered last evening * Initiate dose of 1000 mg IV every 24 hours to start this evening * Trough or random level ordered for: Level will be ordered pending continuation past 48 hours. Pharmacy will continue to follow and will adjust dose/frequency as necessary. Thank you.
[2021-08-10] MEDS: ONDANSETRON INJ 2 MG/ML 2 ML VIAL IV PRN (11:44)
[2021-08-10] MEDS: CEFEPIME 2,000 MG in SYRINGE 0 ML IV SCH (12:50)
[2021-08-10] MEDS: DOXYCYCLINE HYCLATE 100 MG in DEXTROSE 5% 100 ML IV SCH (12:50)
[2021-08-10] MEDS: RASPBERRY SYRUP 5 ML UDP PO SCH ×3 (14:05→22:22)
[2021-08-10 15:27] LABS: Platelet Count 8 K/uL (130-400)
[2021-08-10 15:32] LABS: Calcium 6.9 mg/dl (8.5-10.1); Creatinine Clr Calc Pharmacy 33.4 ml/min; Est GFR (African American) 51.9 ml/min; Est GFR (Non-African American) 44.8 ml/min; Potassium 3.9 mmol/L (3.5-5.1)
[2021-08-10] MEDS ORDERED: SODIUM CHLORIDE 0.9% 250 ML IV PRN ×2 (15:35→19:32)
[2021-08-10 15:42] LABS: Mean Corpuscular Hgb Conc 33.5 g/dL (32-36)
[2021-08-10 15:44] LABS: Hematocrit (blood only) 20.3 % (37-47); Hemoglobin 6.8 g/dL (12.0-16.0); Mean Corpuscular Hemoglobin 28.9 pg (25-34); Mean Corpuscular Volume 86.4 fL (80-100); RDW Coefficient of Variation 19.2 % (11.5-14.5); RDW Standard Deviation 60.6 fL (36.4-46.3); Red Blood Count 2.35 M/uL (4.2-5.4); White Blood Count 0.32 K/uL (4.8-10.8)
[2021-08-10] MEDS ORDERED: Nursing to Pharmacy Communication SCH (18:30)
[2021-08-10] MEDS ORDERED: VANCOMYCIN HCL 750 MG in SODIUM CHLORIDE 0.9% 250 ML IV SCH (20:00)
[2021-08-10] MEDS ORDERED: MIRABEGRON ER 25 MG TAB PO SCH (21:00)
[2021-08-10] MEDS ORDERED: clonazePAM 1 MG TAB PO SCH (21:00)
[2021-08-10] MEDS: QUEtiapine FUMARATE 25 MG TABLET PO SCH (22:21)
[2021-08-10] MEDS: SERTRALINE HCL 50 MG TABLET PO SCH (22:22)
[2021-08-10] MEDS ORDERED: diphenhydrAMINE Capsule 25 MG CAP PO PRN (22:39)
[2021-08-10] MEDS ORDERED: diphenhydrAMINE 50 MG/ML VIAL ONE (22:52)
[2021-08-10] MEDS ORDERED: diphenhydrAMINE 50 MG/ML VIAL IV STA (22:54)
[2021-08-10] MEDS ORDERED: ACETAMINOPHEN 1000 MG/100 ML IV IV STA (22:57)
--- NOTE | 2021-08-10 23:07 | Communication Note ---
Date of Service: August 10, 2021 Called to bedside by nursing staff at 2230 for concerns of new onset fevers, back pain, tremulousness, hypotension, tachycardia following initiation of p latelet transfusion. Blood transfusion started approximately at 2130 and had been running for the last hour prior to this. Patient has previously had numerous platelet and packed red blood cell transfusions most recently had one 2 weeks ago. Upon my presentation to bedside, platelets had been stopped patient had more flushed appearance of skin as compared to earlier this evening, tachycardic to the 140s, hypotensive (SBP 80). Dr. Kay presented to bedside for assistance with evaluation and management of patient. 500 cc bolus of NSS provided over 30 minutes, 50 mg IV Benadryl ordered as well as 1 g IV Tylenol. Following administration of fluids patient had improvement in heart rate and blood pressure, and after approximately 15 to 20 minutes patient had resolution of facial flushing. Blood bank was notified regarding potential transfusion related reaction and platelets sent for evaluation/analysis. CBC, CMP, PT/INR, fibrinogen, FDP, and blood cultures ordered. Fibrinogen results are normal, with mild elevation of FDP, improvement in hemoglobin as compared to prior to transfusion, platelets seemingly steady. We will hold further platelet or packed red blood cell transfusions overnight. Started NSS at 125 mL/h. Continue to monitor blood pressure, heart rate overnight. Resident Activity Tracking Resident Involvement: Resident Care Provided Care Provided: Adult [facility]
[2021-08-10] MEDS: VANCOMYCIN HCL 1,000 MG in SODIUM CHLORIDE 0.9% 250 ML IV SCH (23:44)
[2021-08-10] MEDS: SODIUM CHLORIDE 0.9% 1000ML 1,000 ML IV SCH (23:44)
[2021-08-10 23:46] LABS: Fibrinogen 396 mg/dl (184-400); INR 1.6 (0.9-1.1); Prothrombin Time 16.1 Seconds (9.0-12.0)
[2021-08-10 23:47] LABS: Albumin Globulin Ratio 0.6 (0.9-2); Albumin Level 2.4 gm/dl (3.4-5.0); BUN Creatinine Ratio 14.7 (10-20); Bilirubin,Total 0.6 mg/dl (0.2-1); Calcium 6.8 mg/dl (8.5-10.1); Creatinine Clr Calc Pharmacy 30.9 ml/min; Est GFR (African American) 47.3 ml/min; Est GFR (Non-African American) 40.8 ml/min; Globulin 4.3 gm/dl (2.5-4.0); Potassium 4.6 mmol/L (3.5-5.1); Total Protein 6.7 gm/dl (6.4-8.2)
[2021-08-10 23:53] LABS: Hematocrit (blood only) 23.8 % (37-47); Hemoglobin 7.9 g/dL (12.0-16.0); Mean Corpuscular Hemoglobin 29.5 pg (25-34); Mean Corpuscular Hgb Conc 33.2 g/dL (32-36); Mean Corpuscular Volume 88.8 fL (80-100); Nucleated RBC # (auto) 0.06 K/uL (0-0); Nucleated RBC % (auto) 3.7 %; Platelet Count 9 K/uL (130-400); RDW Coefficient of Variation 19.5 % (11.5-14.5); RDW Standard Deviation 63.3 fL (36.4-46.3); Red Blood Count 2.68 M/uL (4.2-5.4); White Blood Count 1.57 K/uL (4.8-10.8)
[2021-08-10 23:57] LABS: Anisocytosis Present; Basophils # (auto) 0.01 K/uL (0-0.2); Basophils % (auto) 0.6 %; Echinocytes 1+; Eosinophils # (auto) 0.01 K/uL (0-0.5); Eosinophils % (auto) 0.6 %; Lymphocytes # (auto) 1.41 K/uL (1.2-3.4); Lymphocytes % (auto) 89.8 %; Monocytes # (auto) 0.05 K/uL (0.11-0.59); Monocytes % (auto) 3.2 %; Neutrophils # (auto) 0.09 K/uL (1.4-6.5); Neutrophils % (auto) 5.8 %; Platelet Estimate SIGNIFIC DECREASED (Normal)
[2021-08-11] MEDS: DOXYCYCLINE HYCLATE 100 MG in DEXTROSE 5% 100 ML IV SCH ×3 (01:15→22:29)
[2021-08-11] MEDS: CEFEPIME 2,000 MG in SYRINGE 0 ML IV SCH ×3 (01:15→22:29)
[2021-08-11] MEDS: SODIUM CHLORIDE 0.9% 1000ML 1,000 ML IV SCH ×2 (02:08→09:34)
[2021-08-11] MEDS ORDERED: PHYTONADIONE 5 MG TAB PO STA (08:06)
[2021-08-11] MEDS: MAGNESIUM OXIDE 400 MG TAB PO SCH (08:20)
[2021-08-11] MEDS: GABAPENTIN 400 MG CAP PO SCH (08:22)
[2021-08-11] MEDS: ACYCLOVIR 400 MG TAB PO SCH ×2 (08:22→22:28)
[2021-08-11] MEDS: ADVANCED PROBIOTIC 1250 MG CAPSULE PO SCH (08:30)
[2021-08-11] MEDS: FLUTICASONE/VILANTEROL 200/25MCG 14 PUFFS/INHALER INH SCH (08:30)
[2021-08-11] MEDS: POTASSIUM CHLORIDE CRTAB 20 MEQ TABCR PO SCH (08:31)
[2021-08-11] MEDS: FLUCONAZOLE 100 MG TAB PO SCH (08:31)
[2021-08-11] MEDS: TOPIRAMATE 100 MG TAB PO SCH ×2 (08:31→22:29)
[2021-08-11] MEDS: CETIRIZINE HCL 10 MG TABLET PO SCH (08:31)
[2021-08-11] MEDS: OXYBUTYNIN CHLORIDE XL 5 MG TABCR PO SCH (08:31)
[2021-08-11] MEDS: RASPBERRY SYRUP 5 ML UDP PO SCH (08:32)
[2021-08-11] MEDS: VANCOMYCIN HCL 125 MG/2.5ML SOLN PO SCH (08:32)
[2021-08-11 09:00] LABS: Hematocrit (blood only) 20.2 % (37-47); Hemoglobin 6.7 g/dL (12.0-16.0); Mean Corpuscular Hemoglobin 29.1 pg (25-34); Mean Corpuscular Hgb Conc 33.2 g/dL (32-36); Mean Corpuscular Volume 87.8 fL (80-100); Nucleated RBC # (auto) 0.02 K/uL (0-0); Nucleated RBC % (auto) 5.4 %; Platelet Count 10 K/uL (130-400); RDW Coefficient of Variation 19.6 % (11.5-14.5); White Blood Count 0.29 K/uL (4.8-10.8)
[2021-08-11 09:02] LABS: Platelet Estimate SIGNIFIC DECREASED (Normal)
[2021-08-11] MEDS: METOPROLOL SUCC 25MG EXT REL TAB PO SCH (09:06)
[2021-08-11] MEDS: METHOCARBAMOL 750 MG TABLET PO PRN ×2 (09:17→22:28)
[2021-08-11] MEDS ORDERED: ACETAMINOPHEN 650 MG SUPP PR STA (09:23)
[2021-08-11 09:26] LABS: Calcium 6.3 mg/dl (8.5-10.1); Creatinine Clr Calc Pharmacy 35.7 ml/min; Est GFR (African American) 56.2 ml/min; Est GFR (Non-African American) 48.5 ml/min; Potassium 3.7 mmol/L (3.5-5.1)
[2021-08-11] MEDS ORDERED: ACETAMINOPHEN 500 MG TAB PO ONE (09:28)
--- NOTE | 2021-08-11 12:01 | Electrocardiogram Report ---
Test Reason : Blood Pressure : / mmHG Vent. Rate : 110 BPM Atrial Rate : 110 BPM P-R Int : 136 ms QRS Dur : 064 ms QT Int : 328 ms P-R-T Axes : 060 050 061 degrees QTc Int : 443 ms Poor data quality, interpretation may be adversely affected Sinus tachycardia Nonspecific ST abnormality Otherwise normal ECG When compared with ECG of 12-MAY-2021 14:13, No significant change was found Confirmed by Zain Amaral ([id number]) on 08/11/2021 12:01:13 PM Referred By: Ibrahima Bloom Confirmed By:Zain Amaral
--- NOTE | 2021-08-11 19:51 | Hospitalist Progress Note ---
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 Patient was transfused with 1u platelets prior to arrival this afternoon. Ddx for thrombocytopenia is broad - in this patient may be secondary to worsening MDS, complication of Vidaza treatment. Possible infection/sepsis as patient presenting with SIRS 3/4. ?ITP, less likely TTP. Patient had been on Lovenox in the past for history of hypercoagulable state secondary to Prothrombin mutation but has not received since May. continues without active bleeding -Check Lyme - equivocal test results, added doxy to regimen -Will order IVIG 1gm/kg to be administered today at 09:00 per direction of Hematology -Hematology consultation following (2) Sepsis: Plan: Patient with fever, tachycardia, leukopenia and borderline low blood pressures in the ER. She has been given IVF/crystalloid resuscitation with improvement. Unclear source. Patient was neutropenic on labs from yesterday - unable to obtain differential on today's CBC secondary to low WBC count - will assume flaca boyd is still neutropenic -Maintain neutropenic precautions -Follow cultures - blood and urine - sent in ER -Empiric Vancomycin and Cefepime, added doxy due to lyme testing -stopping po vanco as C Diff negative (3) Pancytopenia: Plan: Possibly secondary to worsening MDS. Patient has received Procrit as well as transfusion irradiated PRBC -Continue to monitor -Hematology consultation appreciated (4) UTI (urinary tract infection): Plan: Patient with budding yeast present in in urine as well as elevated WBC, LE, blood. Has history of non-julia albicans in the urine previously. She is presumably neutropenic and has ureteral stents in place. -Follow culture -Diflucan 200mg po daily -Consider Urology consultation re: stent exchange in the future if blood cultures are positive -Continue Pyridium PRN (5) Obstructive sleep apnea: Plan: Chronic. Patient has not been issued CPAP as of yet. She uses 1L O2 by PR qHS -Continue nocturnal O2 (6) Obstructive uropathy: Plan: Chronic. Patient has ureteral stents in place for chronic obstruction. She follows with Urology and typically undergoes stent exchange q 3 months - last seen on 08/02/21. She is to have stent exchange coordinated between Urology and Oncology pending improvement in platelet counts. Last performed on 05/30/[address] Cervantes. platelets are still low (7) Hx of Clostridium difficile infection: Plan: Patient with history of C. diff - is on Vancomycin PO twice weekly as well as daily probiotic -Will increase Vancomycin to 125mg po qid, until toxin test is returned, while on broad spectrum antibiotics -Provide shortest course of antibiotics as possible -Continue daily probiotic (8) Cirrhosis: Plan: Secondary to HCV and EtOH use in the past. Compensated (9) Chronic kidney disease, stage III (moderate): Plan: Near baseline values. Patient is urinating without difficulty -Avoid nephrotoxic agents -Monitor BUN, Cr, electrolytes (10) COPD (chronic obstructive pulmonary disease): Plan: Chronic. Patient denies cough, SOB or wheeze. 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 Has been on hold of late secondary to low platelet count. No complaints consistent with new VTE. -Continue to hold Lovenox in setting of thrombocytopenia with platelets low (13) Migraine: Plan: Chronic. Patient presently without migraine. She is on several medications for migraine as needed -Continue Topamax at home dosing -Will hold PRN migraine agents for now (14) Celiac disease: Plan: Chronic. Well controlled. Patient adheres to gluten free diet -Continue gluten free diet as tolerated Plan: F/E/N - LR at 80mL/hr x 1 liter, continue po K, monitor electrolytes, gluten free diet as tolerated Ppx - Avoid chemoppx in setting of thrombocytopenia Code - Ful per discussion with patient Dispo - Admit to medical with telemetry Admission and Anticipated Discharge Date Admission Date: August 10, 2021 Subjective this pt is weak and tired, she had a some symptoms during a platelet transfusion which was stopped. she tolerated 2 units irradiated blood today, she has no signs of blood loss, initial problems felt secondary to myelodysplastic issues from the treatment of previous cancers, she has had lower blood pressures from illness. Review of Systems Review of Systems: Moderate distress and fatigue no headache, no visual changes no speech or swallowing issues no chest pain, pressure or palpitations Mild shortness of breath, no cough or wheezes no abdominal pain, nausea or vomiting, diarrhea or constipation no dysuria, hematuria or frequency no focal joint pain or swelling no back pain, CVA tenderness or radicular pain no bruising, bleeding or rashes no focal signs of weakness or numbness or altered sensation no complaints of anxiety or depression.. Physical Exam Physical Exam: The patient appeared well nourished and normally developed. Vital signs as documented. Head exam is normocephalic atraumatic Neck is without JVD, thyromegaly, or carotid bruits. Lungs are clear to auscultation, no focal loss of breath sounds Cardiac exam, Rhythm is tachycardic. No murmurs, rubs or gallops. Abdominal exam reveals normal bowel sounds, soft non tender, no masses Extremities are nonedematous and both pedal pulses are present Neurologic exam is alert and oriented, no focal loss of strength or sensation Skin is without bruises or rashes Psychologically is without concerns for anxiety or depression Results & Data Results & Data ([facility]) Vital Signs (Past 12 Hours) Vital Signs Temp Pulse Pulse Resp BP BP Pulse Ox 08/11/21 19:00 101.8 F H 101 H 20 135/67 96 08/11/21 17:17 99.0 F 98 H 18 114/57 L 98 08/11/21 16:45 98.8 F 87 18 117/66 98 08/11/21 15:15 98.8 F 80 18 119/66 100 08/11/21 14:45 98.8 F 79 18 112/65 97 08/11/21 14:27 98.4 F 79 18 106/57 L 99 08/11/21 14:14 98.6 F 80 18 108/56 L 98 08/11/21 14:00 98.6 F 84 18 104/58 L 98 08/11/21 13:00 98.4 F 92 H 22 91/42 L 99 08/11/21 12:00 98.2 F 81 18 115/72 96 08/11/21 11:30 98.2 F 89 18 93/50 L 94 08/11/21 11:00 98.6 F 86 18 93/54 L 95 08/11/21 10:45 98.6 F 85 18 98/60 L 98 08/11/21 10:30 98.6 F 91 H 18 98/60 L 98 08/11/21 08:00 80 PG Care Time/CCT Total # of Minutes Spent Total Time Spent with Patient: Total time spent is greater than 50% in coordination of care (as documented) at patient's floor/unit and/or counseling patient: Coding Level of Care Code 75705 Subseq Hosp Care Lvl 3 Diagnoses Thrombocytopenia D69.6 Sepsis A41.9 Sepsis acute organ dysfunction status: unspecified Sepsis type: sepsis due to unspecified organism Pancytopenia D61.818 UTI (urinary tract infection) N39.0 Obstructive sleep apnea G47.33 Obstructive uropathy N13.9 Hx of Clostridium difficile infection Z86.19 Cirrhosis K74.60 Chronic kidney disease, stage III (moderate) N18.30 Chronic kidney disease stage 3 subtype: unspecified whether 3a or 3b COPD (chronic obstructive pulmonary disease) J44.9 Depression F32.9 Prothrombin [id number] mutation D68.52 Migraine G43.909 Celiac disease K90.0 (1) Sepsis Sepsis acute organ dysfunction status: unspecified Sepsis type: sepsis due to unspecified organism Qualified Code(s): A41.9 - Sepsis, unspecified organism (2) Chronic kidney disease, stage III (moderate) Chronic kidney disease stage 3 subtype: unspecified whether 3a or 3b Qualified Code(s): N18.30 - Chronic kidney disease, stage 3 unspecified
[2021-08-11] MEDS: ACETAMINOPHEN 325 MG TAB PO PRN (20:19)
[2021-08-11] MEDS: VANCOMYCIN HCL 1,000 MG in SODIUM CHLORIDE 0.9% 250 ML IV SCH (20:19)
[2021-08-11] MEDS: QUEtiapine FUMARATE 25 MG TABLET PO SCH (22:28)
[2021-08-11] MEDS: SERTRALINE HCL 50 MG TABLET PO SCH (22:28)
[2021-08-11] MEDS: clonazePAM 0.25 MG TAB PO SCH (22:28)
[2021-08-12] MEDS: SODIUM CHLORIDE 0.9% 1000ML 1,000 ML IV SCH ×3 (00:40→15:45)
[2021-08-12] MEDS: ONDANSETRON INJ 2 MG/ML 2 ML VIAL IV PRN (07:43)
[2021-08-12 07:53] LABS: Eosinophils # (auto) 0.02 K/uL (0-0.5); Hematocrit (blood only) 26.3 % (37-47); Lymphocytes # (auto) 0.34 K/uL (1.2-3.4); Mean Corpuscular Hemoglobin 29.2 pg (25-34); Mean Corpuscular Hgb Conc 34.2 g/dL (32-36); Mean Corpuscular Volume 85.4 fL (80-100); Monocytes # (auto) 0.06 K/uL (0.11-0.59); Neutrophils # (auto) 0.08 K/uL (1.4-6.5); Nucleated RBC # (auto) 0.03 K/uL (0-0); Nucleated RBC % (auto) 5.4 %; Platelet Count 6 K/uL (130-400); Platelet Estimate SIGNIFIC DECREASED (Normal); RBC Morphology Unremarkable; RDW Coefficient of Variation 17.7 % (11.5-14.5); Red Blood Count 3.08 M/uL (4.2-5.4)
[2021-08-12] MEDS ORDERED: EPOETIN ALFA 40,000 UNITS/ML VIAL SQ SCH (08:00)
[2021-08-12 08:03] LABS: Est GFR (African American) 70.5 ml/min; Est GFR (Non-African American) 60.9 ml/min
[2021-08-12] MEDS: TOPIRAMATE 100 MG TAB PO SCH ×2 (08:54→22:18)
[2021-08-12] MEDS: ACYCLOVIR 400 MG TAB PO SCH ×2 (08:54→22:17)
[2021-08-12] MEDS: FLUTICASONE/VILANTEROL 200/25MCG 14 PUFFS/INHALER INH SCH (08:54)
[2021-08-12] MEDS ORDERED: LOPERAMIDE HCL 2 MG CAP PO STA (09:19)
[2021-08-12] MEDS: DOXYCYCLINE HYCLATE 100 MG in DEXTROSE 5% 100 ML IV SCH ×2 (09:25→22:21)
[2021-08-12] MEDS: FLUCONAZOLE 100 MG TAB PO SCH (10:26)
[2021-08-12] MEDS: ADVANCED PROBIOTIC 1250 MG CAPSULE PO SCH (10:27)
[2021-08-12] MEDS: POTASSIUM CHLORIDE CRTAB 20 MEQ TABCR PO SCH (10:27)
[2021-08-12] MEDS: GABAPENTIN 400 MG CAP PO SCH (10:27)
[2021-08-12] MEDS: MAGNESIUM OXIDE 400 MG TAB PO SCH (10:27)
[2021-08-12] MEDS: CETIRIZINE HCL 10 MG TABLET PO SCH (10:27)
[2021-08-12] MEDS: METHOCARBAMOL 750 MG TABLET PO PRN ×2 (10:34→22:17)
[2021-08-12] MEDS: CEFEPIME 2,000 MG in SYRINGE 0 ML IV SCH ×2 (11:50→22:21)
--- NOTE | 2021-08-12 13:19 | Progress Notes ---
HEMATOLOGY PROGRESS NOTE DATE OF SERVICE: 08/12/2021 DIAGNOSES: 1. Neutropenic fever. 2. Refractory thrombocytopenia. 3. Myelodysplasia. 4. Possible sepsis. 5. Urinary tract infection. SUBJECTIVE: Aleja Haq was seen and examined at bedside. Clinically, she actually looked a little bit b quita today. Her main concern was refractory thrombocytopenia. Despite administration of IVIG and pr ior transfusion, her platelet count once again is 6000. WBCs remained suppressed at 500. Her hemogl obin actually is a bit better posttransfusion at 9 g/dL. Cultures thus far are negative. Aleja Haq is receiving active treatment for UTI and previous yeast in urine. Other than some intermittent mild na usea, she seems to be maintaining p.o. intake. No complaint of pain or discomfort otherwise today. Nursing reports no overnight difficulties. OBJECTIVE: GENERAL: A pleasant 66-year-old female in no acute distress. VITAL SIGNS: Temperature 37.3, pulse 81, respiratory rate 16, blood pressure 112/65. SKIN: A few scattered bruises. No overt petechiae. HEENT: Oral mucosa without erythema or ulceration. HEART: Regular rate and rhythm. LUNGS: Clear to auscultation bilaterally. ABDOMEN: Soft, nontender, nondistended, without palpable hepatosplenomegaly. EXTREMITIES: No clubbing, cyanosis or edema. NEUROLOGIC: Grossly intact. LABORATORY DATA: WBC count 500, hemoglobin 9, platelet count 6000, absolute neutrophil count 80. ASSESSMENT: 1. Neutropenic fever. 2. Refractory thrombocytopenia. 3. Myelodysplasia. 4. Urinary tract infection. 5. Suspected sepsis. 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 She was recently started on 5-azacitidine, which has resulted in profound myelosupp ression, which again is not terribly surprising in itself. More concerning is refractory platelet co unt, which is not responding to IVIG or transfusional support. May need to consider HLA-matched prod uct moving forward. For now, we will administer platelets as necessary if bleeding ensues. Cultures thus far are negative, but nonetheless maintain appropriate antimicrobials, antifungals, etc. Hemog lobin is adequate at this juncture and could hold off on further transfusion for now. We will contin ue to watch her closely over the weekend and would proceed with single donor platelets if she needs t ransfusion. If she remains refractory after the weekend, again we will proceed with HLA-matched plat elets, which generally take time to obtain. Job ID: [id number]
[2021-08-12] MEDS: ACETAMINOPHEN 325 MG TAB PO PRN ×2 (14:36→22:21)
[2021-08-12] MEDS: LOPERAMIDE HCL 2 MG CAP PO PRN (18:56)
--- NOTE | 2021-08-12 19:02 | Hospitalist Progress Note ---
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 Patient was transfused with 1u platelets prior to arrival this afternoon. Ddx for thrombocytopenia is broad - in this patient may be secondary to worsening MDS, complication of Vidaza treatment. Possible infection/sepsis as patient presenting with SIRS 3/4. ?ITP, less likely TTP. Patient had been on Lovenox in the past for history of hypercoagulable state secondary to Prothrombin mutation but has not received since May. continues without active bleeding -Check Lyme - equivocal test results, added doxy to regimen -Will order IVIG 1gm/kg to be administered today at 09:00 per direction of Hematology -Hematology consultation following may have typhylitis (2) Sepsis: Plan: Patient with fever, tachycardia, leukopenia and borderline low blood pressures in the ER. She has been given IVF/crystalloid resuscitation with improvement. Unclear source. Patient was neutropenic on labs from yesterday - unable to obtain differential on today's CBC secondary to low WBC count - will assume patient is still neutropenic -Maintain neutropenic precautions -Follow cultures - blood and urine - sent in ER -Empiric Vancomycin and Cefepime, added doxy due to lyme testing -stopping po vanco as C Diff negative, stool cultures are pending (3) Pancytopenia: Plan: Possibly secondary to worsening MDS. Patient has received Procrit as well as transfusion irradiated PRBC -Continue to monitor -Hematology consultation following recommend hold platelet transfusion (4) UTI (urinary tract infection): Plan: Patient with budding yeast present in in urine as well as elevated WBC, LE, blood. Has history of non-julia albicans in the urine previously. She is presumably neutropenic and has ureteral stents in place. -Follow culture -Diflucan 200mg po daily -Consider Urology consultation re: stent exchange in the future if blood cultures are positive -Continue Pyridium PRN (5) Obstructive sleep apnea: Plan: Chronic. Patient has not been issued CPAP as of yet. She uses 1L O2 by [place] qHS -Continue nocturnal O2 (6) Obstructive uropathy: Plan: Chronic. Patient has ureteral stents in place for chronic obstruction. She follows with Urology and typically undergoes stent exchange q 3 months - last seen on 08/02/21. She is to have stent exchange coordinated between Urology and Oncology pending improvement in platelet counts. Last performed on 05/30/[address] Cervantes. platelets are still low (7) Hx of Clostridium difficile infection: Plan: Patient with history of C. diff - is on Vancomycin PO twice weekly as well as daily probiotic -Will increase Vancomycin to 125mg po qid, until toxin test is returned, while on broad spectrum antibiotics -Provide shortest course of antibiotics as possible -Continue daily probiotic (8) Cirrhosis: Plan: Secondary to HCV and EtOH use in the past. Compensated (9) Chronic kidney disease, stage III (moderate): Plan: Near baseline values. Patient is urinating without difficulty -Avoid nephrotoxic agents -Monitor BUN, Cr, electrolytes (10) COPD (chronic obstructive pulmonary disease): Plan: Chronic. Patient denies cough, SOB or wheeze. -Continue Symbicort -Albuterol as needed -Continue Zyrtec (11) Depression: Plan: Chronic -Continue Sertraline 50mg po qHS -Continue Clonazepam 1mg po qHS -Patient may use medical marijuana as directed (12) Prothrombin [id number] mutation: Plan: Patient was previously receiving Lovenox through Anticoagulation clinic. Has been on hold of late secondary to low platelet count. No complaints consistent with new VTE. -Continue to hold Lovenox in setting of thrombocytopenia with platelets low (13) Migraine: Plan: Chronic. Patient presently without migraine. She is on several medications for migraine as needed -Continue Topamax at home dosing -Will hold PRN migraine agents for now (14) Celiac disease: Plan: Chronic. Well controlled. Patient adheres to gluten free diet -Continue gluten free diet as tolerated Plan: F/E/N - LR at 80mL/hr x 1 liter, continue po K, monitor electrolytes, gluten free diet as tolerated Ppx - Avoid chemoppx in setting of thrombocytopenia Code - Ful per discussion with patient Dispo - Admit to medical with telemetry Admission and Anticipated Discharge Date Admission Date: August 10, 2021 Subjective the patient remains weak and tired, she has persistent diarrhea, she tolerated 2 units irradiated blood today, she has no signs of blood loss, initial problems felt secondary to myelodysplastic issues from the treatment of previous cancers, she has had lower blood pressures from illness. diarrhea maybe typhylitis Review of Systems Review of Systems: Moderate distress and fatigue no headache, no visual changes no speech or swallowing issues no chest pain, pressure or palpitations Mild shortness of breath, no cough or wheezes no abdominal pain, nausea or vomiting, now with diarrhea no dysuria, hematuria or frequency no focal joint pain or swelling no back pain, CVA tenderness or radicular pain no bruising, bleeding or rashes no focal signs of weakness or numbness or altered sensation no complaints of anxiety or depression.. Physical Exam Physical Exam: The patient appeared frail and chronically ill Vital signs as documented. Head exam is normocephalic atraumatic Neck is without JVD, thyromegaly, or carotid bruits. Lungs are clear to auscultation, no focal loss of breath sounds Cardiac exam, Rhythm is tachycardic. No murmurs, rubs or gallops. Abdominal exam reveals normal bowel sounds, soft non tender, no masses Extremities are 1+edematous and both pedal pulses are present Neurologic exam is alert and oriented, no focal loss of strength or sensation Skin is with many bruises and chronic changes Psychologically is without concerns for anxiety or depression Results & Data Results & Data ([facility]) Vital Signs (Past 12 Hours) Vital Signs Temp Pulse Pulse Resp BP Pulse Ox 08/12/21 18:32 98.4 F 83 16 106/60 97 08/12/21 14:55 82 08/12/21 14:31 99.7 F H 83 24 108/58 L 100 08/12/21 11:13 99.1 F 81 16 112/65 96 08/12/21 07:51 93 H 08/12/21 07:35 99.0 F 84 20 112/68 97 PG Care Time/CCT Total # of Minutes Spent Total Time Spent with Patient: Total time spent is greater than 50% in coordination of care (as documented) at patient's floor/unit and/or counseling patient: Coding Level of Care Code 17478 Subseq Hosp Care Lvl 3 Diagnoses Thrombocytopenia D69.6 Sepsis A41.9 Sepsis acute organ dysfunction status: unspecified Sepsis type: sepsis due to unspecified organism Pancytopenia D61.818 UTI (urinary tract infection) N39.0 Obstructive sleep apnea G47.33 Obstructive uropathy N13.9 Hx of Clostridium difficile infection Z86.19 Cirrhosis K74.60 Chronic kidney disease, stage III (moderate) N18.30 Chronic kidney disease stage 3 subtype: unspecified whether 3a or 3b COPD (chronic obstructive pulmonary disease) J44.9 Depression F32.9 Prothrombin [id number] mutation D68.52 Migraine G43.909 Celiac disease K90.0 (1) Sepsis Sepsis acute organ dysfunction status: unspecified Sepsis type: sepsis due to unspecified organism Qualified Code(s): A41.9 - Sepsis, unspecified organism (2) Chronic kidney disease, stage III (moderate) Chronic kidney disease stage 3 subtype: unspecified whether 3a or 3b Qualified Code(s): N18.30 - Chronic kidney disease, stage 3 unspecified
[2021-08-12] MEDS ORDERED: VANCOMYCIN TROUGH ONE (19:30)
[2021-08-12] MEDS: VANCOMYCIN HCL 1,000 MG in SODIUM CHLORIDE 0.9% 250 ML IV SCH (20:43)
[2021-08-12] MEDS: QUEtiapine FUMARATE 25 MG TABLET PO SCH (22:17)
[2021-08-12] MEDS: clonazePAM 0.25 MG TAB PO SCH (22:17)
[2021-08-12] MEDS: SERTRALINE HCL 50 MG TABLET PO SCH (22:18)
[2021-08-13] MEDS: SODIUM CHLORIDE 0.9% 1000ML 1,000 ML IV SCH ×3 (00:14→16:11)
[2021-08-13] MEDS: LOPERAMIDE HCL 2 MG CAP PO PRN ×3 (06:13→22:06)
[2021-08-13] MEDS: ACYCLOVIR 400 MG TAB PO SCH ×2 (08:22→22:32)
[2021-08-13] MEDS: FLUTICASONE/VILANTEROL 200/25MCG 14 PUFFS/INHALER INH SCH (08:22)
[2021-08-13] MEDS: METHOCARBAMOL 750 MG TABLET PO PRN ×2 (08:22→22:06)
[2021-08-13] MEDS: ONDANSETRON INJ 2 MG/ML 2 ML VIAL IV PRN ×2 (08:22→14:08)
[2021-08-13] MEDS: TOPIRAMATE 100 MG TAB PO SCH ×3 (08:23→22:33)
[2021-08-13] MEDS: MAGNESIUM OXIDE 400 MG TAB PO SCH (08:23)
[2021-08-13] MEDS: GABAPENTIN 400 MG CAP PO SCH (08:23)
[2021-08-13] MEDS: POTASSIUM CHLORIDE CRTAB 20 MEQ TABCR PO SCH (08:23)
[2021-08-13] MEDS: FLUCONAZOLE 100 MG TAB PO SCH (08:23)
[2021-08-13] MEDS: CETIRIZINE HCL 10 MG TABLET PO SCH (08:23)
[2021-08-13] MEDS: ADVANCED PROBIOTIC 1250 MG CAPSULE PO SCH (08:23)
[2021-08-13 08:56] LABS: Hematocrit (blood only) 27.2 % (37-47); Hemoglobin 9.4 g/dL (12.0-16.0); Mean Corpuscular Hemoglobin 29.8 pg (25-34); Mean Corpuscular Hgb Conc 34.6 g/dL (32-36); Mean Corpuscular Volume 86.3 fL (80-100); Nucleated RBC # (auto) 0.04 K/uL (0-0); Platelet Count 10 K/uL (130-400); RDW Coefficient of Variation 18.1 % (11.5-14.5); RDW Standard Deviation 56.7 fL (36.4-46.3); Red Blood Count 3.15 M/uL (4.2-5.4); White Blood Count 0.64 K/uL (4.8-10.8)
[2021-08-13 09:00] LABS: ALC (manual) 0.42 K/uL (1.2-3.4); ANC (manual) 0.19 K/uL (1.4-6.5); Basophils # (manual) 0.01 K/uL (0-0.2); Eosinophils # (manual) 0.01 K/uL (0-0.5); Lymphocytes # (manual) 0.42 K/uL (1.2-3.4); Monocytes # (manual) 0.01 K/uL (0.11-0.59); Neutrophils # (manual) 0.19 K/uL (1.4-6.5); Toxic Granulation 1+
[2021-08-13 09:08] LABS: Creatinine Clr Calc Pharmacy 49.7 ml/min; Est GFR (African American) 83.9 ml/min; Est GFR (Non-African American) 72.4 ml/min
[2021-08-13] MEDS: DOXYCYCLINE HYCLATE 100 MG in DEXTROSE 5% 100 ML IV SCH ×2 (09:34→23:26)
[2021-08-13] MEDS: CEFEPIME 2,000 MG in SYRINGE 0 ML IV SCH (11:14)
[2021-08-13] MEDS ORDERED: VANCOMYCIN HCL 1,250 MG in SODIUM CHLORIDE 0.9% 250 ML IV SCH ×2 (12:00→16:00)
--- NOTE | 2021-08-13 12:12 | Pharmacy Report ---
Pharmacy Vanc AUC Short Note - Date of Service August 13, 2021 - Assessment & Plan Assessment 66 year old F receiving vancomycin/cefepime for empiric treatment 7 days of therapy. SCr has been trending down. Day # 5/7of antimicrobial therapy. Plan Vancomycin * AUC/SCOTT is the preferred PK/PD target for vancomycin * AUC guided dosing is effective and associated with decreased risk of nephrotoxicity compared to traditional trough targets * Trough level of 10.3 mcg/mL is predicting slightly below target AUC/SCOTT of 400-600 mg/L.hr * Will adjust dose to 1250 mg q18H which predicts an AUC/SCOTT of 571 mg/L.hr with current parameters * Trough ordered for 10/25 AM dose- should complete therapy on this day Pharmacy will continue to follow and will adjust dose/frequency as necessary. Thank you.
[2021-08-13] MEDS: ACETAMINOPHEN 325 MG TAB PO PRN ×2 (14:08→20:41)
[2021-08-13] MEDS ORDERED: FAMOTIDINE 20MG IV PUSH 20 MG/5 ML SYR IV STA (15:46)
[2021-08-13] MEDS ORDERED: methylPREDNISolone 40 MG in SYRINGE 0 ML IV ONE (15:47)
--- NOTE | 2021-08-13 18:11 | Hospitalist Progress Note ---
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 Patient was transfused with 1u platelets prior to arrival this afternoon. Ddx for thrombocytopenia is broad - in this patient may be secondary to worsening MDS, complication of Vidaza treatment. Possible infection/sepsis as patient presenting with SIRS 3/4. ?ITP, less likely TTP. Patient had been on Lovenox in the past for history of hypercoagulable state secondary to Prothrombin mutation but has not received since May. continues without active bleeding -Check Lyme - equivocal test results, added doxy to regimen -Will order IVIG 1gm/kg to be administered today at 09:00 per direction of Hematology -Hematology consultation following may have typhylitis now with possible allergic reaction will stop Vanco and Cefepime, ( does have allergy listed to ceftriaxone) if fever and looks ill consider Imipenem (2) Sepsis: Plan: Patient with fever, tachycardia, leukopenia and borderline low blood pressures in the ER. She has been given IVF/crystalloid resuscitation with improvement. Unclear source. Patient was neutropenic on labs from yesterday - patient is still neutropenic -Maintain neutropenic precautions -Follow cultures - blood and urine - sent in ER stopping other antibiotics, doxy due to lyme testing -stopping po vanco as C Diff negative, stool cultures are pending if need to restart antibiotics, will consider imipenem (3) Allergic reaction: Plan: maybe allergic reaction stopped vanco and cefepime, given some benadryl, pepcid and steroid, follow no pharyngeal or pulmonary involvement at this time (4) Pancytopenia: Plan: Possibly secondary to worsening MDS. Patient has received Procrit as well as transfusion irradiated PRBC -Continue to monitor -Hematology consultation following recommend hold platelet transfusion, no signs of active bleeding (5) UTI (urinary tract infection): Plan: Patient with budding yeast present in in urine as well as elevated WBC, LE, blood. Has history of non-julia albicans in the urine previously. She is presumably neutropenic and has ureteral stents in place. -Follow culture -Diflucan 200mg po daily -Consider Urology consultation re: stent exchange in the future if blood cultures are positive -Continue Pyridium PRN (6) Obstructive sleep apnea: Plan: Chronic. Patient has not been issued CPAP as of yet. She uses 1L O2 by [place] qHS -Continue nocturnal O2 (7) Obstructive uropathy: Plan: Chronic. Patient has ureteral stents in place for chronic obstruction. She follows with Urology and typically undergoes stent exchange q 3 months - last seen on 08/02/21. She is to have stent exchange coordinated between Urology and Oncology pending improvement in platelet counts. Last performed on 05/30/[address] Cervantes. platelets are still low (8) Hx of Clostridium difficile infection: Plan: Patient with history of C. diff - is on Vancomycin PO twice weekly as well as daily probiotic -Will increase Vancomycin to 125mg po qid, until toxin test is returned, while on broad spectrum antibiotics -Provide shortest course of antibiotics as possible -Continue daily probiotic (9) Cirrhosis: Plan: Secondary to HCV and EtOH use in the past. Compensated (10) Chronic kidney disease, stage III (moderate): Plan: Near baseline values. Patient is urinating without difficulty -Avoid nephrotoxic agents -Monitor BUN, Cr, electrolytes (11) COPD (chronic obstructive pulmonary disease): Plan: Chronic. Patient denies cough, SOB or wheeze. -Continue Symbicort -Albuterol as needed -Continue Zyrtec (12) Depression: Plan: Chronic -Continue Sertraline 50mg po qHS -Continue Clonazepam 1mg po qHS -Patient may use medical marijuana as directed (13) Prothrombin [id number] mutation: Plan: Patient was previously receiving Lovenox through Anticoagulation clinic. Has been on hold of late secondary to low platelet count. No complaints consistent with new VTE. -Continue to hold Lovenox in setting of thrombocytopenia with platelets low (14) Migraine: Plan: Chronic. Patient presently without migraine. She is on several medications for migraine as needed -Continue Topamax at home dosing -Will hold PRN migraine agents for now (15) Celiac disease: Plan: Chronic. Well controlled. Patient adheres to gluten free diet -Continue gluten free diet as tolerated Plan: Ppx - Avoid chemoppx in setting of thrombocytopenia Code - Ful per discussion with patient Admission and Anticipated Discharge Date Admission Date: August 10, 2021 Subjective the patient remains weak and tired, she has persistent diarrhea, she tolerated 2 units irradiated blood today, she has no signs of blood loss, initial problems felt secondary to myelodysplastic issues from the treatment of previous cancers, she has had lower blood pressures from illness. diarrhea maybe typhylitis did have diffuse rash, some bullae, not typical for red man syndrome, does have allergy to ceftriaxone, on cefepime will stop given benadryl, pepcid and steroids Review of Systems Review of Systems: Moderate distress and fatigue no headache, no visual changes no speech or swallowing issues no chest pain, pressure or palpitations Mild shortness of breath, no cough or wheezes no abdominal pain, nausea or vomiting, now with diarrhea no dysuria, hematuria or frequency no focal joint pain or swelling no back pain, CVA tenderness or radicular pain diffuse redness and some blisters no focal signs of weakness or numbness or altered sensation no complaints of anxiety or depression.. Physical Exam Physical Exam: The patient appeared frail and chronically ill Vital signs as documented. Head exam is normocephalic atraumatic Neck is without JVD, thyromegaly, or carotid bruits. Lungs are clear to auscultation, no focal loss of breath sounds Cardiac exam, Rhythm is tachycardic. No murmurs, rubs or gallops. Abdominal exam reveals normal bowel sounds, soft non tender, no masses Extremities are 1+edematous and both pedal pulses are present Neurologic exam is alert and oriented, no focal loss of strength or sensation Skin is with erythema and bullae on legs Psychologically is without concerns for anxiety or depression Results & Data Results & Data ([facility]) Vital Signs (Past 12 Hours) Vital Signs Temp Pulse Pulse Resp BP BP Pulse Ox 08/13/21 15:22 99.7 F H 96 H 17 115/50 L 97 08/13/21 14:53 83 08/13/21 14:05 100.0 F H 08/13/21 14:01 08/13/21 12:56 99 08/13/21 11:16 98.4 F 90 136/69 97 08/13/21 08:00 76 08/13/21 07:24 98.1 F 81 115/60 96 Pulse Ox Pulse Ox 08/13/21 15:22 08/13/21 14:53 08/13/21 14:05 08/13/21 14:01 98 96 08/13/21 12:56 08/13/21 11:16 08/13/21 08:00 08/13/21 07:24 PG Care Time/CCT Total # of Minutes Spent Total Time Spent with Patient: Total time spent is greater than 50% in coordination of care (as documented) at patient's floor/unit and/or counseling patient: Coding Level of Care Code 70690 Subseq Hosp Care Lvl 3 Diagnoses Thrombocytopenia D69.6 Sepsis A41.9 Sepsis acute organ dysfunction status: unspecified Sepsis type: sepsis due to unspecified organism Pancytopenia D61.818 UTI (urinary tract infection) N39.0 Obstructive sleep apnea G47.33 Obstructive uropathy N13.9 Hx of Clostridium difficile infection Z86.19 Cirrhosis K74.60 Chronic kidney disease, stage III (moderate) N18.30 Chronic kidney disease stage 3 subtype: unspecified whether 3a or 3b COPD (chronic obstructive pulmonary disease) J44.9 Depression F32.9 Prothrombin [id number] mutation D68.52 Migraine G43.909 Celiac disease K90.0 Allergic reaction T78.40XA (1) Sepsis Sepsis acute organ dysfunction status: unspecified Sepsis type: sepsis due to unspecified organism Qualified Code(s): A41.9 - Sepsis, unspecified organism (2) Chronic kidney disease, stage III (moderate) Chronic kidney disease stage 3 subtype: unspecified whether 3a or 3b Qualified Code(s): N18.30 - Chronic kidney disease, stage 3 unspecified
[2021-08-13] MEDS: diphenhydrAMINE 50 MG/ML VIAL IV PRN (20:43)
[2021-08-13] MEDS: clonazePAM 0.25 MG TAB PO SCH (22:04)
[2021-08-13] MEDS: SERTRALINE HCL 50 MG TABLET PO SCH (22:31)
[2021-08-13] MEDS: QUEtiapine FUMARATE 25 MG TABLET PO SCH (22:33)
[2021-08-14] MEDS: diphenhydrAMINE 50 MG/ML VIAL IV PRN ×4 (05:52→22:28)
[2021-08-14] MEDS: POTASSIUM CHLORIDE CRTAB 20 MEQ TABCR PO SCH (08:04)
[2021-08-14] MEDS: METHOCARBAMOL 750 MG TABLET PO PRN (08:04)
[2021-08-14] MEDS: GABAPENTIN 400 MG CAP PO SCH (08:04)
[2021-08-14] MEDS: ACYCLOVIR 400 MG TAB PO SCH ×2 (08:04→22:21)
[2021-08-14] MEDS: CETIRIZINE HCL 10 MG TABLET PO SCH (08:04)
[2021-08-14] MEDS: ONDANSETRON INJ 2 MG/ML 2 ML VIAL IV PRN ×2 (08:04→20:44)
[2021-08-14] MEDS: LOPERAMIDE HCL 2 MG CAP PO PRN (08:04)
[2021-08-14] MEDS: FLUTICASONE/VILANTEROL 200/25MCG 14 PUFFS/INHALER INH SCH (08:04)
[2021-08-14] MEDS: MAGNESIUM OXIDE 400 MG TAB PO SCH (08:04)
[2021-08-14] MEDS: ADVANCED PROBIOTIC 1250 MG CAPSULE PO SCH (08:04)
[2021-08-14 08:19] LABS: Hematocrit (blood only) 26.4 % (37-47); Hemoglobin 9.1 g/dL (12.0-16.0); Mean Corpuscular Hemoglobin 29.1 pg (25-34); Mean Corpuscular Volume 84.3 fL (80-100); Platelet Count 9 K/uL (130-400); RDW Coefficient of Variation 18.2 % (11.5-14.5); RDW Standard Deviation 56.2 fL (36.4-46.3); Red Blood Count 3.13 M/uL (4.2-5.4); White Blood Count 0.57 K/uL (4.8-10.8)
[2021-08-14 08:26] LABS: Basophils # (auto) 0.02 K/uL (0-0.2); Basophils % (auto) 3.5 %; Immature Granulocytes # (auto) 0.01 K/uL (0.00-0.02); Immature Granulocytes % (auto) 1.8 %; Lymphocytes # (auto) 0.39 K/uL (1.2-3.4); Lymphocytes % (auto) 68.4 %; Mean Corpuscular Hgb Conc 34.5 g/dL (32-36); Monocytes # (auto) 0.07 K/uL (0.11-0.59); Monocytes % (auto) 12.3 %; Neutrophils # (auto) 0.08 K/uL (1.4-6.5); Nucleated RBC # (auto) 0.06 K/uL (0-0); Nucleated RBC % (auto) 10.2 %; Schistocytes Occasional; Toxic Granulation 1+
[2021-08-14] MEDS: DOXYCYCLINE HYCLATE 100 MG in DEXTROSE 5% 100 ML IV SCH ×2 (09:34→22:23)
--- NOTE | 2021-08-14 11:32 | Progress Notes ---
HEMATOLOGY FOLLOWUP NOTE DATE OF SERVICE: 08/14/2021. DIAGNOSES: 1. Refractory thrombocytopenia. 2. Suspected sepsis. 3. Allergic reaction. 4. Urinary tract infection. 5. Myelodysplasia. 6. History of non-Hodgkin's lymphoma. 7. History of lung cancer. SUBJECTIVE: Aleja Haq was seen and examined at bedside. She continues to be profoundly myelosuppressed , particularly troubling is her refractory platelet count. She measures 9000 at the present time. H er neutrophils were also significantly depressed and thus remains at risk for opportunistic infection . Otherwise, she seems to be doing reasonably well. She is tolerating regular diet. Apparently had a cutaneous allergic reaction, not sure to what agent, manifested by multiple water-filled bullae in volving her lower extremities predominantly. Hospitalist believed the allergic reaction was probably due to antibiotic, which I would certainly agree. That said from a hemodynamic standpoint, Aleja Haq continues to hold her own. Unfortunately, she may remain myelosuppressed for quite some time. Burton fofana reports no overnight difficulties. OBJECTIVE: GENERAL: A very pleasant 66-year-old female, awake, alert, appropriate, in no acute distress. VITAL SIGNS: Temperature 37.0, pulse 74, respiratory rate 20, blood pressure 116/61. SKIN: She has all kinds of findings, she has stasis dermatitis findings in the lower extremities kike ng with waxy appearance in the skin, multiple ecchymoses, and senile purpura noted in the upper extre mities. HEENT: Oral mucosa without erythema or ulceration. HEART: Regular rate and rhythm. LUNGS: Bibasilar rhonchi. ABDOMEN: Soft, nontender, nondistended. EXTREMITIES: No clubbing or cyanosis otherwise. NEUROLOGICAL: Grossly intact. LABORATORY DATA: WBC count 570, hemoglobin 9.1, platelet count 9000, absolute neutrophil count 80. Cultures thus far no growth. ASSESSMENT: 1. Refractory thrombocytopenia. 2. Urinary tract infection. 3. Allergic reaction attributable to antibiotics. 4. Pancytopenia attributable to 5 days azacitidine. 5. Urinary tract infection. PLAN: Aleja Haq is a pleasant and equally complex 66-year-old female patient well known CCP, recently started on 5 days azacitidine for a secondary myelodysplasia. She received her first course couple o f weeks ago, not surprisingly is profoundly myelosuppressed. Fortunately, there are no outward signs of infection and with ongoing allergic reaction issues, try to minimize her antibiotics moving forwa rd, even now it would be optimal to have some sort of prophylaxis while she is lying in hospital. Th us, if we are able to get her close to satisfactory, to be able to go home. Ultimately Aleja Haq would be safer to be at home if she remains hemodynamically stable. She seems to be tolerating regular di et. She is moving her bowels ad alisson. Her activity levels are minimal and need to be improved before she can safely be discharged home. That said, I agree with medical management otherwise and have no thing further to add at this point. I would prefer not to give her growth factor unless an active op portunistic infection is confirmed. Job ID: [id number]
--- NOTE | 2021-08-14 18:06 | Hospitalist Progress Note ---
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 Patient was transfused with 1u platelets prior to arrival this afternoon. Ddx for thrombocytopenia is broad - in this patient may be secondary to worsening MDS, complication of Vidaza treatment. Possible infection/sepsis as patient presenting with SIRS 3/4. ?ITP, less likely TTP. Patient had been on Lovenox in the past for history of hypercoagulable state secondary to Prothrombin mutation but has not received since May. continues without active bleeding Oncology has seen patient and feels her pancytopenia as a result of her recent cancer treatments but also concern for bone marrow failure myelodysplasia. Recommend supporting her red cells holding on platelet transfusions unless the patient's bleeding and giving her time for her marrow to recover. -Check Lyme - equivocal test results, added doxy to regimen -Will order IVIG 1gm/kg to be administered today at 09:00 per direction of Hematology -Hematology consultation following may have typhylitis now with possible allergic reaction will stop Vanco and Cefepime, ( does have allergy listed to ceftriaxone) if fever and looks ill consider Imipenem (2) Sepsis: Plan: Patient with fever, tachycardia, leukopenia and borderline low blood pressures in the ER. She has been given IVF/crystalloid resuscitation with improvement. Unclear source. Patient was neutropenic on labs from yesterday - patient is still neutropenic sepsis ruled out symptoms felt secondary to post chemotherapeutic treatment -Maintain neutropenic precautions -Follow cultures - blood and urine negative to date, stool cultures negative stopping other antibiotics due to rash, doxy continues due to lyme testing and its equivocal nature -stopping po vanco as C Diff negative if need to restart antibiotics, will consider imipenem (3) Allergic reaction: Plan: maybe allergic reaction stopped vanco and cefepime, given some benadryl, pepcid and steroid, follow no pharyngeal or pulmonary involvement at this time (4) UTI (urinary tract infection): Plan: Patient with budding yeast present in in urine as well as elevated WBC, LE, blood. Has history of non-julia albicans in the urine previously. She is presumably neutropenic and has ureteral stents in place. -Follow culture -Diflucan 200mg po daily -Consider Urology consultation re: stent exchange in the future if blood cultures are positive -Continue Pyridium PRN (5) Obstructive sleep apnea: Plan: Chronic. Patient has not been issued CPAP as of yet. She uses 1L O2 by [place] qHS -Continue nocturnal O2 (6) Obstructive uropathy: Plan: Chronic. Patient has ureteral stents in place for chronic obstruction. She follows with Urology and typically undergoes stent exchange q 3 months - last seen on 08/02/21. She is to have stent exchange coordinated between Urology and Oncology pending improvement in platelet counts. Last performed on 05/30/[address] Cervantes. platelets are still low (7) Hx of Clostridium difficile infection: Plan: Patient with history of C. diff - is on Vancomycin PO twice weekly as well as daily probiotic -Negative posterior DM toxin test is returned, stopping p.o. vancomycin -Continue daily probiotic (8) Cirrhosis: Plan: Secondary to HCV and EtOH use in the past. Compensated (9) Chronic kidney disease, stage III (moderate): Plan: Near baseline values. Patient is urinating without difficulty -Avoid nephrotoxic agents -Monitor BUN, Cr, electrolytes (10) COPD (chronic obstructive pulmonary disease): Plan: Chronic. Patient denies cough, SOB or wheeze. -Continue Symbicort -Albuterol as needed -Continue Zyrtec (11) Depression: Plan: Chronic -Continue Sertraline 50mg po qHS -Continue Clonazepam 1mg po qHS -Patient may use medical marijuana as directed (12) Prothrombin [id number] mutation: Plan: Patient was previously receiving Lovenox through Anticoagulation clinic. Has been on hold of late secondary to low platelet count. No complaints consistent with new VTE. -Continue to hold Lovenox in setting of thrombocytopenia with platelets low (13) Migraine: Plan: Chronic. Patient presently without migraine. She is on several medications for migraine as needed -Continue Topamax at home dosing -Will hold PRN migraine agents for now (14) Celiac disease: Plan: Chronic. Well controlled. Patient adheres to gluten free diet -Continue gluten free diet as tolerated Plan: Ppx - Avoid chemoppx in setting of thrombocytopenia Code - Ful per discussion with patient Admission and Anticipated Discharge Date Admission Date: August 10, 2021 Subjective Patient looks slightly better after having a brett few days. She tolerated 2 units irradiated blood 08/13, she has no signs of blood loss, initial problems felt secondary to myelodysplastic issues from the treatment of previous cancers, she has had lower blood pressures from illness. diarrhea maybe typhylitis 08/10 2 in the evening did have diffuse rash, some bullae, not typical for red man syndrome, does have allergy to ceftriaxone, on cefepime will stop given benadryl, pepcid and steroids Review of Systems Review of Systems: Moderate distress and fatigue no headache, no visual changes no speech or swallowing issues no chest pain, pressure or palpitations Mild shortness of breath, no cough or wheezes no abdominal pain, nausea or vomiting, now with diarrhea no dysuria, hematuria or frequency no focal joint pain or swelling no back pain, CVA tenderness or radicular pain diffuse redness and some blisters no focal signs of weakness or numbness or altered sensation no complaints of anxiety or depression.. Physical Exam Physical Exam: The patient appeared frail and chronically ill Vital signs as documented. Head exam is normocephalic atraumatic Neck is without JVD, thyromegaly, or carotid bruits. Lungs are clear to auscultation, no focal loss of breath sounds Cardiac exam, Rhythm is tachycardic. No murmurs, rubs or gallops. Abdominal exam reveals normal bowel sounds, soft non tender, no masses Extremities are 1+edematous and both pedal pulses are present Neurologic exam is alert and oriented, no focal loss of strength or sensation Skin is with erythema and bullae on legs Psychologically is without concerns for anxiety or depression Results & Data Results & Data ([facility]) Vital Signs (Past 12 Hours) Vital Signs Temp Pulse Pulse Resp BP Pulse Ox 08/14/21 15:07 81 08/14/21 14:42 98.4 F 77 20 117/65 99 08/14/21 12:21 98.6 F 75 20 121/63 100 08/14/21 07:26 74 08/14/21 07:25 98.6 F 74 20 116/61 99 PG Care Time/CCT Total # of Minutes Spent Total Time Spent with Patient: Total time spent is greater than 50% in coordination of care (as documented) at patient's floor/unit and/or counseling patient: Coding Level of Care Code 80423 Subseq Hosp Care Lvl 3 Diagnoses Sepsis A41.9 Sepsis acute organ dysfunction status: unspecified Sepsis type: sepsis due to unspecified organism Allergic reaction T78.40XA Pancytopenia D61.818 UTI (urinary tract infection) N39.0 Obstructive sleep apnea G47.33 Obstructive uropathy N13.9 Hx of Clostridium difficile infection Z86.19 Cirrhosis K74.60 Chronic kidney disease, stage III (moderate) N18.30 Chronic kidney disease stage 3 subtype: unspecified whether 3a or 3b COPD (chronic obstructive pulmonary disease) J44.9 Depression F32.9 Prothrombin [id number] mutation D68.52 Migraine G43.909 Celiac disease K90.0 (1) Sepsis Sepsis acute organ dysfunction status: unspecified Sepsis type: sepsis due to unspecified organism Qualified Code(s): A41.9 - Sepsis, unspecified organism (2) Chronic kidney disease, stage III (moderate) Chronic kidney disease stage 3 subtype: unspecified whether 3a or 3b Qualified Code(s): N18.30 - Chronic kidney disease, stage 3 unspecified
[2021-08-14] MEDS: ACETAMINOPHEN 325 MG TAB PO PRN (20:47)
[2021-08-14] MEDS ORDERED: traMADol HCL 50 MG TABLET PO STA (21:12)
[2021-08-14] MEDS: QUEtiapine FUMARATE 25 MG TABLET PO SCH (22:20)
[2021-08-14] MEDS: TOPIRAMATE 100 MG TAB PO SCH (22:20)
[2021-08-14] MEDS: SERTRALINE HCL 50 MG TABLET PO SCH (22:21)
[2021-08-14] MEDS: clonazePAM 0.25 MG TAB PO SCH (22:21)
[2021-08-15] MEDS ORDERED: VANCOMYCIN TROUGH ONE (03:30)
[2021-08-15 06:57] LABS: Hematocrit (blood only) 22.9 % (37-47); Mean Corpuscular Hemoglobin 29.3 pg (25-34); Mean Corpuscular Hgb Conc 34.9 g/dL (32-36); Mean Corpuscular Volume 83.9 fL (80-100); Nucleated RBC # (auto) 0.06 K/uL (0-0); Nucleated RBC % (auto) 6.1 %; Platelet Count 9 K/uL (130-400); RDW Coefficient of Variation 18.4 % (11.5-14.5); Red Blood Count 2.73 M/uL (4.2-5.4)
[2021-08-15] MEDS: diphenhydrAMINE 50 MG/ML VIAL IV PRN ×3 (06:59→18:14)
[2021-08-15] MEDS: ONDANSETRON INJ 2 MG/ML 2 ML VIAL IV PRN (06:59)
[2021-08-15 07:09] LABS: Anisocytosis Present; Basophils # (auto) 0.01 K/uL (0-0.2); Basophils % (auto) 1.1 %; Eosinophils # (auto) 0.01 K/uL (0-0.5); Eosinophils % (auto) 1.1 %; Immature Granulocytes # (auto) 0.01 K/uL (0.00-0.02); Immature Granulocytes % (auto) 1.1 %; Lymphocytes # (auto) 0.61 K/uL (1.2-3.4); Lymphocytes % (auto) 67.8 %; Monocytes # (auto) 0.13 K/uL (0.11-0.59); Monocytes % (auto) 14.4 %; Neutrophils # (auto) 0.13 K/uL (1.4-6.5); Neutrophils % (auto) 14.5 %; Ovalocytes 1+; Platelet Estimate SIGNIFIC DECREASED (Normal); Schistocytes Occasional; Spherocytes 1+
[2021-08-15 07:17] LABS: Albumin Level 1.7 gm/dl (3.4-5.0); BUN Creatinine Ratio 17.6 (10-20); Bilirubin Direct 0.1 mg/dl (0-0.2); Calcium 6.3 mg/dl (8.5-10.1); Creatinine Clr Calc Pharmacy 48.6 ml/min; Est GFR (African American) 81.6 ml/min; Est GFR (Non-African American) 70.4 ml/min; Potassium 3.5 mmol/L (3.5-5.1)
[2021-08-15 07:19] LABS: Bilirubin,Total 0.5 mg/dl (0.2-1); Total Protein 5.2 gm/dl (6.4-8.2)
[2021-08-15] MEDS: TOPIRAMATE 100 MG TAB PO SCH ×2 (08:04→21:56)
[2021-08-15] MEDS: FLUTICASONE/VILANTEROL 200/25MCG 14 PUFFS/INHALER INH SCH (08:04)
[2021-08-15] MEDS: ADVANCED PROBIOTIC 1250 MG CAPSULE PO SCH (08:04)
[2021-08-15] MEDS: ACYCLOVIR 400 MG TAB PO SCH ×2 (08:04→21:58)
[2021-08-15] MEDS: ACETAMINOPHEN 325 MG TAB PO PRN (08:08)
[2021-08-15] MEDS: POTASSIUM CHLORIDE CRTAB 20 MEQ TABCR PO SCH (08:08)
[2021-08-15] MEDS: CETIRIZINE HCL 10 MG TABLET PO SCH (08:08)
[2021-08-15] MEDS: GABAPENTIN 400 MG CAP PO SCH (08:08)
[2021-08-15] MEDS: MAGNESIUM OXIDE 400 MG TAB PO SCH (08:08)
[2021-08-15] MEDS ORDERED: traMADol HCL 50 MG TABLET PO PRN (09:45)
[2021-08-15] MEDS: DOXYCYCLINE HYCLATE 100 MG in DEXTROSE 5% 100 ML IV SCH (10:13)
--- NOTE | 2021-08-15 12:25 | Hospitalist Progress Note ---
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 Patient was transfused with 1u platelets prior to arrival this afternoon. Ddx for thrombocytopenia is broad - in this patient may be secondary to worsening MDS, complication of Vidaza treatment. Possible infection/sepsis as patient presenting with SIRS 3/4. ?ITP, less likely TTP. Patient had been on Lovenox in the past for history of hypercoagulable state secondary to Prothrombin mutation but has not received since May. continues without active bleeding Oncology has seen patient and feels her pancytopenia as a result of her recent cancer treatments but also concern for bone marrow failure myelodysplasia. Recommend supporting her red cells holding on platelet transfusions unless the patient's bleeding and giving her time for her marrow to recover. -Check Lyme - equivocal test results, increased dose of her usual doxycycline -IVIG given yesterday -Hematology consultation following now with possible allergic reaction - Vanco and Cefepime ( does have allergy listed to ceftriaxone) if fever and looks ill consider Imipenem (2) Sepsis: Plan: Patient with fever, tachycardia, leukopenia and borderline low blood pressures in the ER. She has been given IVF/crystalloid resuscitation with improvement. Unclear source. Patient was neutropenic on labs from yesterday - patient is still neutropenic sepsis ruled out symptoms felt secondary to post chemotherapeutic treatment -Maintain neutropenic precautions -Follow cultures - blood and urine negative to date, stool cultures negative stopping other antibiotics due to rash, doxy continues due to lyme testing and i ts equivocal nature -stopping po vanco as C Diff negative if need to restart antibiotics, will consider imipenem (3) Allergic reaction: Plan: maybe allergic reaction stopped vanco and cefepime, given some benadryl, pepcid and steroid, follow no pharyngeal or pulmonary involvement at this time Given no new bullae will continue to hold antibiotics above and monitor for now (4) UTI (urinary tract infection): Plan: Patient with budding yeast present in in urine as well as elevated WBC, LE, blood. Has history of non-julia albicans in the urine previously. She is presumably neutropenic and has ureteral stents in place. -Urine culture - mixed -Diflucan 200mg po daily (now dc'd 08/10-08/13) -Consider Urology consultation re: stent exchange in the future if blood cultures are positive -Continue Pyridium PRN (5) Obstructive sleep apnea: Plan: Chronic. Patient has not been issued CPAP as of yet. She uses 1L O2 by [place] qHS -Continue nocturnal O2 (6) Obstructive uropathy: Plan: Chronic. Patient has ureteral stents in place for chronic obstruction. She follows with Urology and typically undergoes stent exchange q 3 months - last seen on 08/02/21. She is to have stent exchange coordinated between Urology and Oncology pending improvement in platelet counts. Last performed on 05/30/[address] Cervantes. platelets are still low (7) Hx of Clostridium difficile infection: Plan: Patient with history of C. diff - is on Vancomycin PO twice weekly as well as daily probiotic, will restart her usual dosing of this -Negative posterior DM toxin test is returned, stopping p.o. vancomycin -Continue daily probiotic (8) Cirrhosis: Plan: Secondary to HCV and EtOH use in the past. Compensated (9) Chronic kidney disease, stage III (moderate): Plan: Near baseline values. Patient is urinating without difficulty -Avoid nephrotoxic agents -Monitor BUN, Cr, electrolytes (10) COPD (chronic obstructive pulmonary disease): Plan: Chronic. Patient denies cough, SOB or wheeze. -Continue Symbicort -Albuterol as needed -Continue Zyrtec (11) Depression: Plan: Chronic -Continue Sertraline 50mg po qHS -Continue Clonazepam 1mg po qHS -Patient may use medical marijuana as directed (12) Prothrombin [id number] mutation: Plan: Patient was previously receiving Lovenox through Anticoagulation clinic. Has been on hold of late secondary to low platelet count. No complaints consistent with new VTE. -Continue to hold Lovenox in setting of thrombocytopenia with platelets low (13) Migraine: Plan: Chronic. Patient presently without migraine. She is on several medications for migraine as needed -Continue Topamax at home dosing -Will hold PRN migraine agents for now (14) Celiac disease: Plan: Chronic. Well controlled. Patient adheres to gluten free diet -Continue gluten free diet as tolerated Plan: Ppx - Avoid chemoppx in setting of thrombocytopenia Code - Full per prior provider discussion with patient Admission and Anticipated Discharge Date Admission Date: August 10, 2021 Subjective Painful bullae remain but no new lesions. Otherwise no fevers and feels she is doing well. No prior history of this sking rash. On gluten free diet. Review of Systems Review of Systems: All systems reviewed & are unremarkable except as noted in HPI & below Physical Exam Constitutional: + frail appearing; no acute distress Respiratory: normal respiratory effort, lungs clear to auscultation Cardiovascular: Rate/Rhythm: regular rate and regular rhythm Heart Sounds: no murmur Extremities: + pedal edema (1+) Gastrointestinal (Abdomen): normal bowel sounds, soft, nontender, no hepatosplenomegaly Skin: chronic venous stasis changes b/l LE multiple painful erupted bullae present on lower extremities up to thighs, well circumferential, approximately 3cm diameter Neurologic: moves all extremities and awake; not confused Psychiatric: Orientation: alert and oriented x 3 Results & Data Results & Data ([facility]) Vital Signs (Past 12 Hours) Vital Signs Temp Pulse Pulse Resp BP Pulse Ox 08/15/21 11:39 37.1 C 77 20 110/63 98 08/15/21 07:54 36.9 C 83 20 120/68 99 08/15/21 07:22 72 08/15/21 02:50 37.0 C 74 18 116/61 99 PG Care Time/CCT Total # of Minutes Spent Total Time Spent with Patient: Total time spent is greater than 50% in coordination of care (as documented) at patient's floor/unit and/or counseling patient: Coding Level of Care Code 39315 Subseq Hosp Care Lvl 2 Diagnoses Pancytopenia D61.818 Sepsis A41.9 Sepsis acute organ dysfunction status: unspecified Sepsis type: sepsis due to unspecified organism Allergic reaction T78.40XA UTI (urinary tract infection) N39.0 Obstructive sleep apnea G47.33 Obstructive uropathy N13.9 Hx of Clostridium difficile infection Z86.19 Cirrhosis K74.60 Chronic kidney disease, stage III (moderate) N18.30 Chronic kidney disease stage 3 subtype: unspecified whether 3a or 3b COPD (chronic obstructive pulmonary disease) J44.9 Depression F32.9 Prothrombin [id number] mutation D68.52 Migraine G43.909 Celiac disease K90.0 (1) Chronic kidney disease, stage III (moderate) Chronic kidney disease stage 3 subtype: unspecified whether 3a or 3b Qualified Code(s): N18.30 - Chronic kidney disease, stage 3 unspecified (2) Sepsis Sepsis acute organ dysfunction status: unspecified Sepsis type: sepsis due to unspecified organism Qualified Code(s): A41.9 - Sepsis, unspecified organism
[2021-08-15] MEDS: oxyCODONE HCL IR 5 MG TAB (IMMEDIATE RELEASE) PO PRN ×3 (12:46→22:13)
[2021-08-15] MEDS ORDERED: VANCOMYCIN HCL 125 MG/2.5ML SOLN PO SCH ×2 (14:00)
[2021-08-15] MEDS ORDERED: RASPBERRY SYRUP 5 ML UDP PO SCH ×2 (14:00)
[2021-08-15 15:06] LABS: 18KDIGG Band NON-REACTIVE; 23KDIGG Band NON-REACTIVE; 23KDIGM Band NON-REACTIVE; 28KDIGG Band NON-REACTIVE; 30KDIGG Band NON-REACTIVE; 39KDIGG Band NON-REACTIVE; 39KDIGM Band NON-REACTIVE; 41KDIGG Band NON-REACTIVE; 41KDIGM Band NON-REACTIVE; 45KDIGG Band NON-REACTIVE; 58KDIGG Band NON-REACTIVE; 66KDIGG Band NON-REACTIVE; 93KDIGG Band NON-REACTIVE; Lyme Antibodies, WB IgG NEGATIVE (NEGATIVE); Lyme Antibodies, WB IgM NEGATIVE (NEGATIVE)
[2021-08-15] MEDS: METHOCARBAMOL 750 MG TABLET PO PRN (21:56)
[2021-08-15] MEDS: QUEtiapine FUMARATE 25 MG TABLET PO SCH (21:57)
[2021-08-15] MEDS: SERTRALINE HCL 50 MG TABLET PO SCH (21:57)
[2021-08-15] MEDS: clonazePAM 0.25 MG TAB PO SCH (22:12)
[2021-08-15] MEDS: DOXYCYCLINE HYCLATE 100 MG CAP PO SCH (22:13)
[2021-08-16] MEDS ORDERED: diphenhydrAMINE Capsule 25 MG CAP PO ONE (00:04)
[2021-08-16 04:57] LABS: Hematocrit (blood only) 24.1 % (37-47); Hemoglobin 8.2 g/dL (12.0-16.0); Mean Corpuscular Hemoglobin 29.2 pg (25-34); Mean Corpuscular Volume 85.8 fL (80-100); Nucleated RBC # (auto) 0.06 K/uL (0-0); Platelet Count 9 K/uL (130-400); RDW Coefficient of Variation 18.4 % (11.5-14.5); RDW Standard Deviation 56.9 fL (36.4-46.3); Red Blood Count 2.81 M/uL (4.2-5.4); White Blood Count 1.14 K/uL (4.8-10.8)
[2021-08-16 05:00] LABS: Basophils # (auto) 0.01 K/uL (0-0.2); Basophils % (auto) 0.9 %; Dohle Bodies Occasional; Eosinophils # (auto) 0.01 K/uL (0-0.5); Eosinophils % (auto) 0.9 %; Immature Granulocytes # (auto) 0.01 K/uL (0.00-0.02); Immature Granulocytes % (auto) 0.9 %; Lymphocytes # (auto) 0.82 K/uL (1.2-3.4); Lymphocytes % (auto) 71.9 %; Monocytes # (auto) 0.13 K/uL (0.11-0.59); Monocytes % (auto) 11.4 %; Neutrophils # (auto) 0.16 K/uL (1.4-6.5); Platelet Estimate SIGNIFIC DECREASED (Normal); Toxic Granulation 1+
[2021-08-16] MEDS: ADVANCED PROBIOTIC 1250 MG CAPSULE PO SCH (07:55)
[2021-08-16] MEDS: TOPIRAMATE 100 MG TAB PO SCH ×2 (07:56→22:39)
[2021-08-16] MEDS: METHOCARBAMOL 750 MG TABLET PO PRN (07:56)
[2021-08-16] MEDS: ACYCLOVIR 400 MG TAB PO SCH ×2 (07:56→22:39)
[2021-08-16] MEDS: FLUTICASONE/VILANTEROL 200/25MCG 14 PUFFS/INHALER INH SCH (07:56)
[2021-08-16] MEDS: MULTIVITAMIN TAB PO SCH (08:03)
[2021-08-16] MEDS: MAGNESIUM OXIDE 400 MG TAB PO SCH (08:03)
[2021-08-16] MEDS: CETIRIZINE HCL 10 MG TABLET PO SCH (08:03)
[2021-08-16] MEDS: VITAMIN B COMPLEX TAB PO SCH (08:03)
[2021-08-16] MEDS: GABAPENTIN 400 MG CAP PO SCH (08:03)
[2021-08-16] MEDS: oxyCODONE HCL IR 5 MG TAB (IMMEDIATE RELEASE) PO PRN ×4 (08:07→22:40)
[2021-08-16] MEDS: POTASSIUM CHLORIDE CRTAB 20 MEQ TABCR PO SCH (08:08)
--- NOTE | 2021-08-16 08:26 | Progress Notes ---
HEMATOLOGY PROGRESS NOTE DATE OF SERVICE: 08/16/2021 DIAGNOSES: 1. Refractory thrombocytopenia. 2. Suspected sepsis. 3. Possible drug reaction. 4. Urinary tract infection. 5. Myelodysplasia. 6. Pancytopenia. SUBJECTIVE: Aleaj Haq is seen and examined again at bedside. Her activity level remains modest at bes t. She admitted not really getting out of bed yesterday, stating her lower extremities were hurting too much and she was finally provided some pain medication. She remains profoundly pancytopenic incl uding her platelet count, which remains in single digits. That said, no overt signs of bleeding. Jaclyn arrieta remains neutropenic as well. There is no overt signs of impending infection. I would like to incr ease her activity level and get her moving towards discharge. Overall, I believe she would be safer at home recovering from pancytopenia. Advised Aleja Haq that we will need to continue holding 5-azacit idine for the foreseeable future. Nursing reports no overnight difficulties otherwise. OBJECTIVE: GENERAL: Very pleasant 66-year-old female in no acute distress. VITAL SIGNS: Temperature 36.8, pulse 71, respiratory rate 20, blood pressure 100/62. SKIN: Warm, dry, noncyanotic without petechia or rash; however, there is scattered ecchymosis and pu rpura. HEENT: Oral mucosa without evidence of thrush. HEART: Regular rate and rhythm. LUNGS: Bibasilar crackles. ABDOMEN: Soft, nontender, nondistended. EXTREMITIES: No clubbing, cyanosis or edema. Stasis dermatitis changes noted in the lower extremiti es bilaterally. NEUROLOGIC: Focally intact. LABORATORY DATA: WBC count 1140, hemoglobin 8.2, platelet count 9000, absolute neutrophil count 160. ASSESSMENT: 1. Refractory thrombocytopenia. 2. Neutropenia. 3. Anemia attributable to treatment and myelodysplasia. 4. Probable allergic reaction (drug). 5. Urinary tract infection. PLAN: Aleja Haq was seen and examined at bedside this morning. I would like her to get out of bed a b it more and move towards discharge. Her platelet count remains refractory; however, did not respond to IVIG or transfusion. Without overt signs of bleeding, however, I would like to hold off on furthe r transfusion. Perhaps 1 unit of blood to bolster her hemoglobin level moving towards discharge. No overt signs of infection at the present time. We will continue to hold 5-azacitidine for the forese eable future and plan on seeing her in outpatient followup to determine when we can safely resume. I have nothing further to add on Aleja Haq at this time. Unfortunately, she is a product of being heavi ly pretreated for her prior neoplasia and thus her overall bone marrow health is tenuous at best. Job ID: [id number]
[2021-08-16] MEDS: diphenhydrAMINE 50 MG/ML VIAL IV PRN (10:15)
[2021-08-16] MEDS: DOXYCYCLINE HYCLATE 100 MG CAP PO SCH ×2 (10:16→22:39)
--- NOTE | 2021-08-16 15:36 | Hospitalist Progress Note ---
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 Patient was transfused with 1u platelets prior to arrival this afternoon. Ddx for thrombocytopenia is broad - in this patient may be secondary to worsening MDS, complication of Vidaza treatment. Possible infection/sepsis as patient presenting with SIRS 3/4. ?ITP, less likely TTP. Patient had been on Lovenox in the past for history of hypercoagulable state secondary to Prothrombin mutation but has not received since May. continues without active bleeding Oncology has seen patient and feels her pancytopenia as a result of her recent cancer treatments but also concern for bone marrow failure myelodysplasia. Recommend supporting her red cells holding on platelet transfusions unless the patient's bleeding and giving her time for her marrow to recover. -Check Lyme - equivocal test results, increased dose of her usual doxycycline -IVIG given without significant response -Hematology consultation following Suspect bullae secondary to IV vancomycin use ?linear IgA bullous dermatosis. Alternative offending drug possible fluconazole. Will restart on her usual cephalexin today and make sure does not reoccur prior to discharge.. (2) Sepsis: Plan: Patient with fever, tachycardia, leukopenia and borderline low blood pressures in the ER. She has been given IVF/crystalloid resuscitation with improvement. Unclear source. Patient was neutropenic on labs from yesterday - patient is still neutropenic sepsis ruled out symptoms felt secondary to post chemotherapeutic treatment -Maintain neutropenic precautions -Follow cultures - blood and urine negative to date, stool cultures negative stopping other antibiotics due to rash, doxy continues due to lyme testing and its equivocal nature -stopping po vanco as C Diff negative, placed back on her usual prophylaxis dosi ng if need to restart antibiotics, will consider imipenem (3) Allergic reaction: Plan: maybe allergic reaction stopped vanco and cefepime, given some benadryl, pepcid and steroid, follow no pharyngeal or pulmonary involvement at this time Given no new bullae will continue to hold antibiotics above and monitor for now (4) UTI (urinary tract infection): Plan: Patient with budding yeast present in in urine as well as elevated WBC, LE, blood. Has history of non-julia albicans in the urine previously. She is presumably neutropenic and has ureteral stents in place. -Urine culture - mixed -Diflucan 200mg po daily (now dc'd 08/10-08/13) -Consider Urology consultation re: stent exchange in the future if blood cultures are positive -Continue Pyridium PRN (5) Obstructive sleep apnea: Plan: Chronic. Patient has not been issued CPAP as of yet. She uses 1L O2 by [place] qHS -Continue nocturnal O2 (6) Obstructive uropathy: Plan: Chronic. Patient has ureteral stents in place for chronic obstruction. She follows with Urology and typically undergoes stent exchange q 3 months - last seen on 08/02/21. She is to have stent exchange coordinated between Urology and Oncology pending improvement in platelet counts. Last performed on 05/30/[address] Cervantes. platelets are still low (7) Hx of Clostridium difficile infection: Plan: Patient with history of C. diff - is on Vancomycin PO twice weekly as well as daily probiotic, will restart her usual dosing of this -Negative posterior DM toxin test is returned, stopping p.o. vancomycin -Continue daily probiotic (8) Cirrhosis: Plan: Secondary to HCV and EtOH use in the past. Compensated (9) Chronic kidney disease, stage III (moderate): Plan: Near baseline values. Patient is urinating without difficulty -Avoid nephrotoxic agents -Monitor BUN, Cr, electrolytes (10) COPD (chronic obstructive pulmonary disease): Plan: Chronic. Patient denies cough, SOB or wheeze. -Continue Symbicort -Albuterol as needed -Continue Zyrtec (11) Depression: Plan: Chronic -Continue Sertraline 50mg po qHS -Continue Clonazepam 1mg po qHS -Patient may use medical marijuana as directed (12) Prothrombin [id number] mutation: Plan: Patient was previously receiving Lovenox through Anticoagulation clinic. Has been on hold of late secondary to low platelet count. No complaints consistent with new VTE. -Continue to hold Lovenox in setting of thrombocytopenia with platelets low (13) Migraine: Plan: Chronic. Patient presently without migraine. She is on several medications for migraine as needed -Continue Topamax at home dosing -Will hold PRN migraine agents for now (14) Celiac disease: Plan: Chronic. Well controlled. Patient adheres to gluten free diet -Continue gluten free diet as tolerated Plan: Ppx - Avoid chemoppx in setting of thrombocytopenia Code - Full per prior provider discussion with patient Admission and Anticipated Discharge Date Admission Date: August 10, 2021 Subjective No new blisters. No bleeding despite platelets remaining low. Most recently refused PT due to painful blisters. Review of Systems Review of Systems: All systems reviewed & are unremarkable except as noted in HPI & below Physical Exam Constitutional: + frail appearing; no acute distress Respiratory: normal respiratory effort, lungs clear to auscultation Cardiovascular: Rate/Rhythm: regular rate and regular rhythm Heart Sounds: no murmur Extremities: + pedal edema (1+) Gastrointestinal (Abdomen): normal bowel sounds, soft, nontender, no hepatosplenomegaly Skin: No new bullae noted Neurologic: moves all extremities and awake; not confused Psychiatric: Orientation: alert and oriented x 3 Results & Data Results & Data ([facility]) Vital Signs (Past 12 Hours) Vital Signs Temp Pulse Pulse Resp BP Pulse Ox 08/16/21 15:03 36.8 C 93 H 20 118/69 97 08/16/21 11:00 36.8 C 77 20 101/64 100 08/16/21 07:43 37.0 C 78 20 102/56 L 96 08/16/21 07:17 71 08/16/21 05:05 72 PG Care Time/CCT Total # of Minutes Spent Total Time Spent with Patient: Total time spent is greater than 50% in coordination of care (as documented) at patient's floor/unit and/or counseling patient: Coding Level of Care Code 45490 Subseq Hosp Care Lvl 2 Diagnoses Pancytopenia D61.818 Sepsis A41.9 Sepsis acute organ dysfunction status: unspecified Sepsis type: sepsis due to unspecified organism Allergic reaction T78.40XA UTI (urinary tract infection) N39.0 Obstructive sleep apnea G47.33 Obstructive uropathy N13.9 Hx of Clostridium difficile infection Z86.19 Cirrhosis K74.60 Chronic kidney disease, stage III (moderate) N18.30 Chronic kidney disease stage 3 subtype: unspecified whether 3a or 3b COPD (chronic obstructive pulmonary disease) J44.9 Depression F32.9 Prothrombin [id number] mutation D68.52 Migraine G43.909 Celiac disease K90.0 (1) Chronic kidney disease, stage III (moderate) Chronic kidney disease stage 3 subtype: unspecified whether 3a or 3b Qualified Code(s): N18.30 - Chronic kidney disease, stage 3 unspecified (2) Sepsis Sepsis acute organ dysfunction status: unspecified Sepsis type: sepsis due to unspecified organism Qualified Code(s): A41.9 - Sepsis, unspecified organism
[2021-08-16] MEDS: cephALEXin 500 MG CAP PO SCH (16:20)
[2021-08-16] MEDS: ACETAMINOPHEN 325 MG TAB PO PRN (20:39)
[2021-08-16] MEDS: QUEtiapine FUMARATE 25 MG TABLET PO SCH (22:39)
[2021-08-16] MEDS: SERTRALINE HCL 50 MG TABLET PO SCH (22:39)
[2021-08-16] MEDS: clonazePAM 0.25 MG TAB PO SCH (22:40)
[2021-08-17 05:48] LABS: Eosinophils # (auto) 0.01 K/uL (0-0.5); Eosinophils % (auto) 0.8 %; Giant Platelets 1+; Hematocrit (blood only) 24.1 % (37-47); Hemoglobin 8.1 g/dL (12.0-16.0); Lymphocytes # (auto) 1.01 K/uL (1.2-3.4); Lymphocytes % (auto) 75.9 %; Mean Corpuscular Hemoglobin 28.2 pg (25-34); Mean Corpuscular Hgb Conc 33.6 g/dL (32-36); Monocytes # (auto) 0.13 K/uL (0.11-0.59); Monocytes % (auto) 9.8 %; Neutrophils # (auto) 0.18 K/uL (1.4-6.5); Neutrophils % (auto) 13.5 %; Nucleated RBC # (auto) 0.07 K/uL (0-0); Nucleated RBC % (auto) 5.4 %; Platelet Count 11 K/uL (130-400); Platelet Estimate SIGNIFIC DECREASED (Normal); RDW Coefficient of Variation 18.6 % (11.5-14.5); RDW Standard Deviation 57.7 fL (36.4-46.3); Red Blood Count 2.87 M/uL (4.2-5.4); Toxic Granulation 1+; White Blood Count 1.33 K/uL (4.8-10.8)
[2021-08-17 05:59] LABS: Albumin Globulin Ratio 0.6 (0.9-2); BUN Creatinine Ratio 22.1 (10-20); Bilirubin,Total 0.4 mg/dl (0.2-1); Calcium 6.6 mg/dl (8.5-10.1); Creatinine Clr Calc Pharmacy 52.2 ml/min; Est GFR (Non-African American) 76.8 ml/min; Globulin 3.6 gm/dl (2.5-4.0); Potassium 4.6 mmol/L (3.5-5.1); Total Protein 5.6 gm/dl (6.4-8.2)
[2021-08-17] MEDS: VITAMIN B COMPLEX TAB PO SCH (08:13)
[2021-08-17] MEDS: oxyCODONE HCL IR 5 MG TAB (IMMEDIATE RELEASE) PO PRN ×4 (08:13→21:35)
[2021-08-17] MEDS: MAGNESIUM OXIDE 400 MG TAB PO SCH (08:14)
[2021-08-17] MEDS: ACYCLOVIR 400 MG TAB PO SCH ×2 (08:14→22:59)
[2021-08-17] MEDS: METHOCARBAMOL 750 MG TABLET PO PRN ×2 (08:14→23:01)
[2021-08-17] MEDS: TOPIRAMATE 100 MG TAB PO SCH ×2 (08:14→22:58)
[2021-08-17] MEDS: POTASSIUM CHLORIDE CRTAB 20 MEQ TABCR PO SCH (08:14)
[2021-08-17] MEDS: GABAPENTIN 400 MG CAP PO SCH (08:15)
[2021-08-17] MEDS: MULTIVITAMIN TAB PO SCH (08:15)
[2021-08-17] MEDS: CETIRIZINE HCL 10 MG TABLET PO SCH (08:15)
[2021-08-17] MEDS: ADVANCED PROBIOTIC 1250 MG CAPSULE PO SCH (08:15)
[2021-08-17] MEDS: FLUTICASONE/VILANTEROL 200/25MCG 14 PUFFS/INHALER INH SCH (08:15)
[2021-08-17] MEDS: cephALEXin 500 MG CAP PO SCH (08:15)
[2021-08-17] MEDS: DOXYCYCLINE HYCLATE 100 MG CAP PO SCH ×2 (10:30→23:00)
[2021-08-17] MEDS ORDERED: SODIUM CHLORIDE 0.9% 250 ML IV PRN (16:30)
--- NOTE | 2021-08-17 20:04 | Hospitalist Progress Note ---
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 Patient was transfused with 1u platelets prior to arrival this afternoon. Ddx for thrombocytopenia is broad - in this patient may be secondary to worsening MDS, complication of Vidaza treatment. Possible infection/sepsis as patient presenting with SIRS 3/4. ?ITP, less likely TTP. Patient had been on Lovenox in the past for history of hypercoagulable state secondary to Prothrombin mutation but has not received since May. continues without active bleeding Oncology has seen patient and feels her pancytopenia as a result of her recent cancer treatments but also concern for bone marrow failure myelodysplasia. Recommend supporting her red cells holding on platelet transfusions unless the patient's bleeding and giving her time for her marrow to recover. -Check Lyme - equivocal test results, increased dose of her usual doxycycline -IVIG given without significant response -Hematology consultation following Suspect bullae secondary to IV vancomycin use ?linear IgA bullous dermatosis. Alternative offending drug possible fluconazole. No new bullae since Sunday after restarted her usual medications yesterday. 1 units packed RBCs transfuse overnight. Planning on discharge tomorrow. (2) Sepsis: Plan: Patient with fever, tachycardia, leukopenia and borderline low blood pressures in the ER. She has been given IVF/crystalloid resuscitation with improvement. Unclear source. Patient was neutropenic on labs from yesterday - patient is still neutropenic sepsis ruled out symptoms felt secondary to post chemotherapeutic treatment -Maintain neutropenic precautions -Follow cultures - blood and urine negative to date, stool cultures negative stopping other antibiotics due to rash, doxy continues due to lyme testing and its equivocal nature -stopping po vanco as C Diff negative, placed back on her usual prophylaxis dosing if need to restart antibiotics, will consider imipenem (3) Allergic reaction: Plan: maybe allergic reaction stopped vanco and cefepime, given some benadryl, pepcid and steroid, follow no pharyngeal or pulmonary involvement at this time Given no new bullae will continue to hold antibiotics above and monitor for now (4) UTI (urinary tract infection): Plan: Patient with budding yeast present in in urine as well as elevated WBC, LE, blood. Has history of non-julia albicans in the urine previously. She is presumably neutropenic and has ureteral stents in place. -Urine culture - mixed -Diflucan 200mg po daily (now dc'd 08/10-08/13) -Consider Urology consultation re: stent exchange in the future if blood cultures are positive -Continue Pyridium PRN (5) Obstructive sleep apnea: Plan: Chronic. Patient has not been issued CPAP as of yet. She uses 1L O2 by [place] qHS -Continue nocturnal O2 (6) Obstructive uropathy: Plan: Chronic. Patient has ureteral stents in place for chronic obstruction. She follows with Urology and typically undergoes stent exchange q 3 months - last seen on 08/02/21. She is to have stent exchange coordinated between Urology and Oncology pending improvement in platelet counts. Last performed on 05/30/[address] Cervantes. platelets are still low (7) Hx of Clostridium difficile infection: Plan: Patient with history of C. diff - is on Vancomycin PO twice weekly as well as daily probiotic, will restart her usual dosing of this -Negative posterior DM toxin test is returned, stopping p.o. vancomycin -Continue daily probiotic (8) Cirrhosis: Plan: Secondary to HCV and EtOH use in the past. Compensated (9) Chronic kidney disease, stage III (moderate): Plan: Near baseline values. Patient is urinating without difficulty -Avoid nephrotoxic agents -Monitor BUN, Cr, electrolytes (10) COPD (chronic obstructive pulmonary disease): Plan: Chronic. Patient denies cough, SOB or wheeze. 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 Has been on hold of late secondary to low platelet count. No complaints consistent with new VTE. -Continue to hold Lovenox in setting of thrombocytopenia with platelets low (13) Migraine: Plan: Chronic. Patient presently without migraine. She is on several medications for migraine as needed -Continue Topamax at home dosing -Will hold PRN migraine agents for now (14) Celiac disease: Plan: Chronic. Well controlled. Patient adheres to gluten free diet -Continue gluten free diet as tolerated Plan: Ppx - Avoid chemoppx in setting of thrombocytopenia Code - Full per prior provider discussion with patient Admission and Anticipated Discharge Date Admission Date: August 10, 2021 Subjective Blisters appear to be healing. Patient doing well with physical therapy and feel she is safe to return home at this time. Discussed case with her son over the phone and he is concerned about her safety with her platelets being so low. Discussed case with Dr Bloom and no ongoing treatment needed for neutropenia and thrombocytopenia. Comfortable with current levels for discharge but does want her to have another unit of blood prior to discharge. Review of Systems Review of Systems: All systems reviewed & are unremarkable except as noted in HPI & below Physical Exam Constitutional: + frail appearing; no acute distress Respiratory: normal respiratory effort, lungs clear to auscultation Cardiovascular: Rate/Rhythm: regular rate and regular rhythm Heart Sounds: no murmur Extremities: + pedal edema (1+) Gastrointestinal (Abdomen): normal bowel sounds, soft, nontender, no hepatosplenomegaly Skin: Bullae are all popped and dry at the current time. Neurologic: moves all extremities and awake; not confused Psychiatric: Orientation: alert and oriented x 3 Results & Data Results & Data ([facility]) Vital Signs (Past 12 Hours) Vital Signs Temp Pulse Pulse Pulse Pulse Resp BP 08/17/21 19:30 37.0 C 85 16 121/65 08/17/21 19:00 37.0 C 90 18 103/62 08/17/21 18:38 36.7 C 90 18 112/63 08/17/21 18:29 36.9 C 90 18 108/59 L 08/17/21 15:15 36.7 C 91 H 18 08/17/21 12:30 36.5 C 118 H 76 86 18 BP BP Pulse Ox 08/17/21 19:30 98 08/17/21 19:00 99 08/17/21 18:38 99 08/17/21 18:29 99 08/17/21 15:15 120/60 99 08/17/21 12:30 118/69 98/56 L 100 PG Care Time/CCT Total # of Minutes Spent Total Time Spent with Patient: Total time spent is greater than 50% in coordination of care (as documented) at patient's floor/unit and/or counseling patient: Coding Level of Care Code 64567 Subseq Hosp Care Lvl 2 Diagnoses Pancytopenia D61.818 Sepsis A41.9 Sepsis acute organ dysfunction status: unspecified Sepsis type: sepsis due to unspecified organism Allergic reaction T78.40XA UTI (urinary tract infection) N39.0 Obstructive sleep apnea G47.33 Obstructive uropathy N13.9 Hx of Clostridium difficile infection Z86.19 Cirrhosis K74.60 Chronic kidney disease, stage III (moderate) N18.30 Chronic kidney disease stage 3 subtype: unspecified whether 3a or 3b COPD (chronic obstructive pulmonary disease) J44.9 Depression F32.9 Prothrombin [id number] mutation D68.52 Migraine G43.909 Celiac disease K90.0 (1) Chronic kidney disease, stage III (moderate) Chronic kidney disease stage 3 subtype: unspecified whether 3a or 3b Qualified Code(s): N18.30 - Chronic kidney disease, stage 3 unspecified (2) Sepsis Sepsis acute organ dysfunction status: unspecified Sepsis type: sepsis due to unspecified organism Qualified Code(s): A41.9 - Sepsis, unspecified organism
[2021-08-17] MEDS: ACETAMINOPHEN 325 MG TAB PO PRN (20:39)
[2021-08-17] MEDS: SERTRALINE HCL 50 MG TABLET PO SCH (22:59)
[2021-08-17] MEDS: clonazePAM 0.25 MG TAB PO SCH (22:59)
[2021-08-17] MEDS: QUEtiapine FUMARATE 25 MG TABLET PO SCH (22:59)
[2021-08-18] MEDS: oxyCODONE HCL IR 5 MG TAB (IMMEDIATE RELEASE) PO PRN ×3 (04:34→13:24)
[2021-08-18] MEDS: MULTIVITAMIN TAB PO SCH (08:43)
[2021-08-18] MEDS: MAGNESIUM OXIDE 400 MG TAB PO SCH (08:44)
[2021-08-18] MEDS: ADVANCED PROBIOTIC 1250 MG CAPSULE PO SCH (08:44)
[2021-08-18] MEDS: cephALEXin 500 MG CAP PO SCH (08:44)
[2021-08-18] MEDS: CETIRIZINE HCL 10 MG TABLET PO SCH (08:45)
[2021-08-18] MEDS: GABAPENTIN 400 MG CAP PO SCH (08:45)
[2021-08-18] MEDS: VITAMIN B COMPLEX TAB PO SCH (08:46)
[2021-08-18] MEDS: FLUTICASONE/VILANTEROL 200/25MCG 14 PUFFS/INHALER INH SCH (08:46)
[2021-08-18] MEDS: ACYCLOVIR 400 MG TAB PO SCH (08:46)
[2021-08-18] MEDS: METHOCARBAMOL 750 MG TABLET PO PRN (09:08)
[2021-08-18] MEDS: TOPIRAMATE 100 MG TAB PO SCH (09:36)
[2021-08-18] MEDS: POTASSIUM CHLORIDE CRTAB 20 MEQ TABCR PO SCH (09:36)
[2021-08-18 09:57] LABS: Hematocrit (blood only) 27.8 % (37-47); Hemoglobin 9.5 g/dL (12.0-16.0); Mean Corpuscular Hemoglobin 28.9 pg (25-34); Mean Corpuscular Hgb Conc 34.2 g/dL (32-36); Mean Corpuscular Volume 84.5 fL (80-100); Nucleated RBC # (auto) 0.04 K/uL (0-0); Platelet Count 9 K/uL (130-400); RDW Coefficient of Variation 17.9 % (11.5-14.5); RDW Standard Deviation 55.6 fL (36.4-46.3); Red Blood Count 3.29 M/uL (4.2-5.4); White Blood Count 1.11 K/uL (4.8-10.8)
[2021-08-18 10:02] LABS: Anisocytosis Present; Basophils # (auto) 0.01 K/uL (0-0.2); Basophils % (auto) 0.9 %; Eosinophils # (auto) 0.01 K/uL (0-0.5); Eosinophils % (auto) 0.9 %; Immature Granulocytes # (auto) 0.01 K/uL (0.00-0.02); Immature Granulocytes % (auto) 0.9 %; Lymphocytes # (auto) 0.72 K/uL (1.2-3.4); Lymphocytes % (auto) 64.9 %; Monocytes # (auto) 0.15 K/uL (0.11-0.59); Monocytes % (auto) 13.5 %; Neutrophils # (auto) 0.21 K/uL (1.4-6.5); Neutrophils % (auto) 18.9 %; Ovalocytes 1+
[2021-08-18 10:07] LABS: BUN Creatinine Ratio 22.4 (10-20); Calcium 7.2 mg/dl (8.5-10.1); Creatinine Clr Calc Pharmacy 60.5 ml/min; Est GFR (African American) 105.1 ml/min; Est GFR (Non-African American) 90.7 ml/min; Potassium 4.5 mmol/L (3.5-5.1)
[2021-08-18] MEDS: DOXYCYCLINE HYCLATE 100 MG CAP PO SCH (11:34)
[2021-08-18 12:34] VITALS: TEMP 98.4; O2SAT 99
[2021-08-18] MEDS: ACETAMINOPHEN 325 MG TAB PO PRN (12:45)
--- NOTE | 2021-08-18 13:37 | Discharge Summary ---
Date of Service August 18, 2021 Admission HPI Per Admitting Provider Aleja Duron is a 66yo female with complex medical history, most notably for recently diagnosed Myelodysplastic Syndrome (by bone marrow biopsy performed on 07/09/21) with chronic pancytopenia. Patient follows with Oncology and is currently receiving chemotherapy with Vidaza (Azacitidine) as well as Procrit injections. Patient had routine blood work performed yesterday which revealed WBC=1.27, Hgb=8.8, Hct=26.7 and platelets of 7. Neutropenic on labs yesterday with Neut# 0.13 as well as lymphopenia and some schistocytes. She received a Procrit injection yesterday and a platelet transfusion today. Repeat CBC following transfusion of 1u platelets with Plt=8. Patient states she has had one day of fever to 104, headache, fatigue and chills. She has persistent feeling of abdominal fullness and occasional discomfort but reports no acute worsening of these symptoms. Also with occasional nausea and diarrhea at baseline with no acute worsening. She denies cough, SOB, chest pain, palpitations. Denies urinary complaints. She has occasional nosebleeds but nothing recently. Denies rash, bleeding gums or mucosal bleeding. Denies numbness/tingling/weakness. No additional complaints at this time. In the ER patient febrile at 38.3, regular tachycardia at 112 bpm, blood pressure borderline low 88-101 / 48-63. ER Course: NSS 2.5L, Vancomycin 1250mg, Cefepime 2gm, Tylenol 650mg Principal Diagnosis Pancytopenia Discharge Exam Constitutional + frail appearing; no acute distress Respiratory normal respiratory effort, lungs clear to auscultation Cardiovascular Rate/Rhythm: regular rate and regular rhythm Heart Sounds: no murmur Extremities: + pedal edema (1+) Gastrointestinal (Abdomen) normal bowel sounds, soft, nontender, no hepatosplenomegaly Neurologic moves all extremities and awake; not confused Psychiatric Orientation: alert and oriented x 3 Discharge Data Allergies Allergy/AdvReac Type Severity Reaction Status Date / Time bee venom protein (honey bee) Allergy Severe Difficulty Verified 08/23/21 09:12 Breathing adhesive Allergy Intermediate Red torn Verified 08/23/21 09:12 skin Iodinated Contrast Media Allergy Intermediate Hives Verified 08/23/21 09:12 iodine Allergy Intermediate Hives Verified 08/23/21 09:12 levofloxacin Allergy Intermediate numbness/we Verified 08/23/21 09:12 akness pregabalin Allergy Intermediate fever?/?cher Verified 08/23/21 09:12 h strawberry Allergy Intermediate Hives Verified 08/23/21 09:12 Sulfa (Sulfonamide Allergy Intermediate Rash, hives Verified 08/23/21 09:12 Antibiotics) vancomycin Allergy Intermediate Bullous Verified 08/23/21 09:12 skin rash allopurinol Allergy Mild Rash Verified 08/23/21 09:12 ceftriaxone [From Rocephin] Allergy Mild Rash Verified 08/23/21 09:12 piperacillin [From Zosyn] Allergy Mild Rash Verified 08/23/21 09:12 tazobactam [From Zosyn] Allergy Mild Rash Verified 08/23/21 09:12 venlafaxine Allergy Unknown Unknown Verified 08/23/21 09:12 gluten AdvReac Severe Celiac Dz Verified 08/23/21 09:12 = GI symptoms propoxyphene AdvReac Intermediate [employer] side Verified 08/23/21 09:12 effects Consultations 08/09/21 23:36 ED Decision to Admit Stat 08/10/21 01:05 Consult Hematology Routine Ordered Studies 08/09/21 22:24 CT head/brain wo con Urgent Impression: No acute intracranial hemorrhage, evidence of acute territorial infarction, or other acute intracranial disease process. Hospital Course (1) Pancytopenia: Aleja Duron is a 66 year old female with MDS admitted to [facility] from August 10 - 2020 due to possible sepsis (fever) and pancytopenia. She was treated with broad spectrum antibiotics and fluconazole to cover for budding yeast in urine. Blood cultures were subsequently negative therefore broad spectrum antibiotics were discontinued. Lyme testing was initially equivocal therefore your doxycycline dose was also increased but subsequent analysis was negative for lyme disease. She was reviewed by hematology and suspected pancytopenia secondary to myelosuppression from 5- azacitidine with secondary myelodysplasia. She was treated with red blood cells and platelet transfusions. Due to possible HLA mismatch with platelet transfusion she was also treated with IVIG which also did not result in increasing your platelet count and is considered refractory at this stage. H owever, she is not having any active bleeding therefore no further transfusions are currently recommended. She will continue to follow up with hematology regarding this. In the course of your treatment your developed painful blisters. Most likely these developed as an reaction to intravenous vancomycin (however reactions to cefepime/fluconazole also possible but less likely). 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 No new lesions on discharge for several days. Suspect this will continue to improve as intravenous vancomycin has been stopped but consider dermatology follow up if they continue to be painful or further bullae develop. (2) Sepsis: ruled out (3) Allergic reaction: (4) UTI (urinary tract infection): (5) Obstructive sleep apnea: (6) Obstructive uropathy: (7) Hx of Clostridium difficile infection: (8) Cirrhosis: (9) Chronic kidney disease, stage III (moderate): (10) COPD (chronic obstructive pulmonary disease): (11) Depression: (12) Prothrombin [id number] mutation: (13) Migraine: (14) Celiac disease: Total Time Total Time Spent Total Time Spent (In Minutes): 40 Discharge Plan Discharge Items Patient Disposition: Home - Self-Care Reason For Visit: THROMBOCYTOPENIA, FEVER Discharge Diagnosis: Pancytopenia Activity: Resume your previous activity Non-emergency contact: Primary Care Provider Call non-emergency contact if: you have any medication questions and your symptoms worsen Follow-up/Referrals: Reynold Villegas MD [Primary Care Provider] - 08/23/21 3:00 pm (Your appointment is with Qing Coto PA-C. If you have any questions or need to change this appointment, please call [phone].) Diet: Gluten Free Addtl Attending Provider Instructions: You were admitted to [facility] from August 10 - 2020 due to possible sepsis and pancytopenia. You were treated with broad spectrum antibiotics and fluconazole to cover for budding yeast in urine. Blood culture were subsequently negative therefore broad spectrum antibiotics were discontinued. Lyme testing was initially equivocal therefore your doxycycline dose was also increased but subsequent analysis was negative for lyme disease. You were reviewed by hematology and suspect pancytopenia secondary to myelosuppression from 5-azacitidine with secondary myelodysplasia. You were treated with blood and platelet transfusions. Due to possible HLA mismatch with platelet transfusion you were also treated with IVIG which also did not result in increasing your platelet count and is considered refractory at this stage. However you do not appear to be having any active bleeding therefore no further transfusions are currently recommended. Please continue to follow up with hematology for ongoing treatment of this. In the course of your treatment your developed painful blisters. Most likely these developed as an reaction to intravenous vancomycin (however reactions to cefepime/fluconazole also possible but less likely). 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 No new lesions at this time for several days. Suspect this will continue to improve as intravenous vancomycin has been stopped but consider dermatology follow up if they continue to be painful. Kind regards, Dr Leeroy Brown Pending Studies at Discharge: No Stand-Alone Forms: [facility], Smoking Cessation Medications and DC Order Prescriptions: New oxycodone 5 mg tablet 5 mg PO Q4H PRN (Reason: pain) Qty: 20 RF: 0 Continued Prolia 60 mg/mL syringe 60 mg subcut .q 6 months RF: 0 calcium carbonate-vitamin D3 [Caltrate with Vitamin D3] 600 mg(1,500mg) -800 unit tablet 1 tab PO QPM RF: 0 ergocalciferol (vitamin D2) 1,250 mcg (50,000 unit) capsule 50,000 unit PO WEEKLY Qty: 12 RF: 1 albuterol sulfate [ProAir HFA] 90 mcg/actuation HFA aerosol inhaler 2 puff INHALATION QID PRN (Reason: Wheezing) Qty: 8.5 RF: 5 metoprolol succinate 50 mg tablet extended release 24 hr 25 mg PO QAM Qty: 45 RF: 3 topiramate [Topamax] 100 mg tablet 100 mg PO .COMPLEX 30 Days Qty: 90 RF: 5 rizatriptan 10 mg tablet 10 mg PO DAILY PRN (Reason: Migraine Headache) Qty: 9 RF: 5 methocarbamol 750 mg tablet 750 mg PO BID PRN (Reason: Pain) Qty: 60 RF: 5 acyclovir 400 mg tablet 400 mg PO BID Qty: 60 RF: 3 oxybutynin chloride 10 mg tablet extended release 24hr 10 mg PO QAM Qty: 90 RF: 1 cephalexin 500 mg capsule 500 mg PO QAM Qty: 30 RF: 5 Myrbetriq 50 mg tablet extended release 24 hr 50 mg PO HS Qty: 90 RF: 3 gabapentin [Neurontin] 400 mg capsule 400 mg PO QAM 30 Days Qty: 30 RF: 3 potassium chloride 20 mEq tablet extended release 20 meq PO QAM Qty: 30 RF: 5 (DME) Auto Titrating CPAP Misc See Rx Instructions .ROUTE .MEDSUPPLY Qty: 1 RF: 0 (DME) CPAP Supplies Misc See Rx Instructions .ROUTE .MEDSUPPLY Qty: 1 RF: 0 cyanocobalamin (vitamin B-12) 1,000 mcg/mL Solution 1,000 mcg IM MONTHLY RF: 0 ferrous sulfate [iron] 325 mg (65 mg iron) Tablet 325 mg PO QAM RF: 0 vitamin E 400 unit Capsule 400 unit PO QAM RF: 0 psyllium husk [Metamucil] 0.52 gram Capsule 1.04 g PO QAM RF: 0 multivitamin Tablet 1 tab PO QAM RF: 0 butorphanol 10 mg/mL [place],Non-Aerosol 1 spray INTRANASAL Q3H PRN (Reason: Migraine Headache) RF: 0 cetirizine [Zyrtec] 10 mg Tablet 10 mg PO QAM RF: 0 triamcinolone acetonide 0.025 % Cream 1 applic TOPICAL BID PRN (Reason: Skin Irritation) RF: 0 vitamin B complex [B-Complex] Tablet 1 tab PO QAM RF: 0 folic acid 1 mg Tablet 1 mg PO QAM RF: 0 magnesium oxide 400 mg Capsule 400 mg PO QAM RF: 0 Medical Marijuana 1 ml sublingual UD PRN (Reason: Pain) RF: 0 sertraline [Zoloft] 50 mg tablet 50 mg PO HS RF: 0 coQ10 (ubiquinol) 200 mg Capsule 200 mg PO QAM RF: 0 doxycycline hyclate 100 mg capsule 100 mg PO QAM RF: 0 ddegicoigf-qpnawdbhizlog-fyqw [Esgic] 50-325-40 mg tablet 1 tab PO DAILY PRN (Reason: HEADACHES) RF: 0 acetaminophen 500 mg Capsule 500 mg PO QID PRN (Reason: Pain) RF: 0 L.acidoph-B.lactis-B.longum 15 billion cell Capsule 1 cap PO QAM RF: 0 phenazopyridine [Pyridium] 200 mg tablet 200 mg PO Q8H PRN (Reason: pain) Qty: 10 RF: 0 Discontinued clonazepam 1 mg tablet 1 mg PO HS Qty: 30 RF: 2 No Action quetiapine [Seroquel] 50 mg tablet 50 mg PO HS Qty: 30 RF: 5 clonazepam 1 mg tablet 0.5 mg PO HS Qty: 30 RF: 2 budesonide-formoterol [Symbicort] 80-4.5 mcg/actuation HFA aerosol inhaler 2 puff inhalation BID Qty: 3 RF: 3 Discharge Orders: Discharge Order (Routine); Ordered 08/18/21 Ordered By: Leeroy Brown Admission Data Admit Date/Time: 08/10/21 01:05 Attending Provider: Leeroy Brown Admit Provider: Sarah Kay Primary Care Provider: Reynold Villegas Other Providers: Sarah Kay ; Ibrahima Bloom V. Other Interventions: Discharge Summary Assessment (RN) Last Done: 08/18/21 15:28 Coding Level of Care Code D/C DAY MANAGEMENT >30 MINS Diagnoses Pancytopenia D61.818 Sepsis A41.9 Sepsis acute organ dysfunction status: unspecified Sepsis type: sepsis due to unspecified organism Allergic reaction T78.40XA UTI (urinary tract infection) N39.0 Obstructive sleep apnea G47.33 Obstructive uropathy N13.9 Hx of Clostridium difficile infection Z86.19 Cirrhosis K74.60 Chronic kidney disease, stage III (moderate) N18.30 Chronic kidney disease stage 3 subtype: unspecified whether 3a or 3b COPD (chronic obstructive pulmonary disease) J44.9 Depression F32.9 Prothrombin [id number] mutation D68.52 Migraine G43.909 Celiac disease K90.0
[2021-08-18 15:30] VITALS: BP 111/65; PULSE 118
[2021-08-19] MEDS ORDERED: VANCOMYCIN HCL 125 MG/2.5ML SOLN PO SCH (09:00)
== END 2021-08-18 16:05 | disposition home or self-care (01) | DRG 809 ==
LOC: ED 19:16 → SUATTDRO 08-10 01:05 → EDINP 08-10 01:05 → 2W 08-10 13:57

== ENCOUNTER 2021-09-20 17:18 | Inpatient (IN) ==
[2021-09-20 18:15] LABS: INR 1.1 (0.9-1.1); Partial Thromboplastin Ratio 1.3; Partial Thromboplastin Time 35.2 Seconds (21.0-31.0); Prothrombin Time 11.4 Seconds (9.0-12.0)
[2021-09-20 18:24] LABS: Appearance Urine Cloudy (Clear); Bacteria Urine Automated Negative (Negative); Bilirubin Urine Negative (Negative); Blood Urine 3+ (Negative); Color Urine Dark Yellow; Epithelial Cell Urine Auto >30 /lpf (0-5); Glucose Urine UA Negative (Negative); Ketones Urine Negative (Negative); Leukocyte Esterase Urine 2+ (Negative); Nitrite Urine Negative (Negative); Protein Urine 3+ (Negative); Urobilinogen Urine Negative (Negative); WBC Urine Automated >30 /hpf (0-5); pH Urine 5.5 (4.5-7.5)
[2021-09-20 18:28] LABS: Alanine Aminotransferase 33 U/L (12-78); Albumin Globulin Ratio 0.9 (0.9-2); Albumin Level 3.4 gm/dl (3.4-5.0); Alkaline Phosphatase 103 U/L (45-117); Aspartate Aminotransferase 10 U/L (15-37); BUN Creatinine Ratio 15.9 (10-20); Bilirubin,Total 0.5 mg/dl (0.2-1); Blood Urea Nitrogen 21 mg/dl (7-18); Calcium 7.8 mg/dl (8.5-10.1); Carbon Dioxide 21 mmol/L (21-32); Chloride 112 mmol/L (98-107); Creatinine Clr Calc Pharmacy 30.8 ml/min; Est GFR (Non-African American) 43.1 ml/min; Globulin 3.8 gm/dl (2.5-4.0); Glucose 116 mg/dl (70-99); Magnesium 2.2 mg/dl (1.8-2.4); Mean Corpuscular Hemoglobin 26.9 pg (25-34); Mean Corpuscular Volume 84.2 fL (80-100); Nucleated RBC # (auto) 0.04 K/uL (0-0); Nucleated RBC % (auto) 2.3 %; Platelet Count 20 K/uL (130-400); Potassium 4.3 mmol/L (3.5-5.1); RDW Coefficient of Variation 18.3 % (11.5-14.5); RDW Standard Deviation 54.7 fL (36.4-46.3); Red Blood Count 2.97 M/uL (4.2-5.4); Sodium 141 mmol/L (136-145); Total Protein 7.2 gm/dl (6.4-8.2); Troponin I < 0.015 ng/ml (0-0.045); White Blood Count 1.76 K/uL (4.8-10.8)
--- NOTE | 2021-09-20 18:28 | XRay Report ---
XR chest 2V PA/lateral HISTORY: Sepsis COMPARISON: Chest 08/09/2021. FINDINGS: No pneumothorax. No pleural effusions. The lungs are hyperexpanded with mild apical predomi nant emphysematous changes. Chronic opacification within the medial base of the right lower lobe is a gain noted. No new focal lung consolidations. No evidence for pulmonary edema. Bilateral anterior rib densities remain stable. Partially visualized left ureteral stent. IMPRESSION: No significant change compared to the prior study. No acute process. Chronic right medial lung base d ensity likely represents scarring. ACT 112: Negative or not required by law. Electronically signed by: Jimi Bangura M.D. 09/20/2021 6:27 PM
[2021-09-20 18:29] LABS: Anisocytosis Present; Basophils # (auto) 0.01 K/uL (0-0.2); Basophils % (auto) 0.6 %; Eosinophils # (auto) 0.01 K/uL (0-0.5); Eosinophils % (auto) 0.6 %; Giant Platelets 2+; Hypochromasia Present; Immature Granulocytes # (auto) 0.01 K/uL (0.00-0.02); Immature Granulocytes % (auto) 0.6 %; Lymphocytes # (auto) 1.08 K/uL (1.2-3.4); Lymphocytes % (auto) 61.4 %; Microcytosis Present; Monocytes # (auto) 0.22 K/uL (0.11-0.59); Monocytes % (auto) 12.5 %; Neutrophils # (auto) 0.43 K/uL (1.4-6.5); Neutrophils % (auto) 24.3 %; Platelet Estimate SIGNIFIC DECREASED (Normal); Polychromasia 1+
[2021-09-20 18:46] LABS: RBC Urine Automated >30 /hpf (0-4)
[2021-09-21] MEDS ORDERED: CEFEPIME 2,000 MG/20 ML VIAL IV STA (01:44)
[2021-09-21] MEDS ORDERED: diphenhydrAMINE 50 MG/ML VIAL IV STA ×2 (02:52→04:39)
[2021-09-21] MEDS ORDERED: ONDANSETRON INJ 2 MG/ML 2 ML VIAL IV STA (02:52)
[2021-09-21] MEDS ORDERED: MoRPHine SULFATE 2 MG/ML CARP IV STA (02:54)
[2021-09-21] MEDS ORDERED: SODIUM CHLORIDE 0.9% 1000ML 1,000 ML IV ONE (02:54)
--- NOTE | 2021-09-21 03:27 | History & Physical Report ---
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 Patient had reached out to her oncologists office in regards to her symptoms and fevers and was urged to come to the ED for evaluation as her last ANC was 660. Neutropenic Fever -Last chemo in July per patient, currently on pause until the new year -Patient with fever of 100.8F at home -ANC on 09/19/21 was 660 -Started on Cefepime in the ED, though patient with significant itching requiring Benadryl -Will empirically cover with Aztreonam and Linezolid -No obvious signs of infection, though blood cultures and urine cultures pending -Patient does note history of urine related infections secondary to her urinary stents -Low threshold to scan patient should her symptoms or status worsen -Procal pending -MRSA nares pending -Lactate 1.2 -Neutropenic precautions -Continue prophylactic home Doxycycline and Acyclovir Thrombocytopenia -Platelets at 20K on admission -While patient has several factors concerning for DVT including current malignancy and Factor 2 mutation, will hold on prophylactic lovenox at this time for concern of bleed -Mechanical prophylaxis with SCDs SACHA -cpap qhs COPD/Emphysema -Continue albuterol PRN -Continue home Symbicort Anxiety -Continue home clonazepam -Continue home Seroquel -Continue home Zoloft Migraines -Continue home Topamax Urge Incontinence -Continue home Myrbetriq Continue home Oxybutynin Dispo: Med/Surg Telemetry FEN: Gluten free diet, LR 80ml/hr x1L DVT: SCDs, hold on chemoprophylaxis secondary to significant thrombocytopenia Code: Full History of Present Illness Chief Complaint: Neutropenic fever Primary Care Provider: Reynold Villegas MD Patient is a 66 year old female with PMHx Myelodysplastic syndrome on chemotherapy, SACHA, urge and stress incontinence, COPD emphysema, Squamous Cell Lung cancer, Prothrombin [id number] Factor 2 mutation, Celiacs disease, CVA, that presents with concerns of sore throat, runny nose, and a fever of 100.8F at home. Patient had reached out to her oncologists office in regards to her symptoms and fevers and was urged to come to the ED for evaluation as her last ANC was 660. Patient notes currently that she started with her symptoms yesterday morning primarily with a sore throat and runny nose. She notes that today she has also noticed a slight cough along with a fever of 100.8F while at home. She denies any recent cuts or bruises. She denies any recent diarrhea, dysuria, hematuria, or vomiting. She notes that her symptoms have improved somewhat, and that she currently does not feel febrile. In the ED she was started on Cefepime to which she notes currently that she "feels itchy." She notes multiple areas on her L arm, L neck, and inner R thigh that she feels appear more red than usual and itch somewhat. She notes that these areas had fluid filled bullae previously which she felt was secondary to vancomycin. She notes that the rashes were less red prior to administration of the Cefepime. She denies any SOB, throat swelling, tongue swelling, or itchy throat. Med Hx:Myelodysplastic syndrome on chemotherapy, SACHA, urge and stress incontinence, COPD emphysema, Squamous Cell Lung cancer, Prothrombin [id number] Factor 2 mutation, Celiacs disease, CVA Surg Hx: Bone marrow biopsy, L carpal tunnel release, Liver biopsy, multiple ureteral stent placements, bladder prolapse repair, tonsillectomy, tubal ligation Soc Hx: Denies tobacco use since 2010, Denies alcohol use since 1996, notes medical marijuana use Allergies Allergy/AdvReac Type Severity Reaction Status Date / Time bee venom protein (honey bee) Allergy Severe Difficulty Verified 09/21/21 02:29 Breathing adhesive Allergy Intermediate Red torn Verified 09/21/21 02:29 skin Iodinated Contrast Media Allergy Intermediate Hives Verified 09/21/21 02:29 iodine Allergy Intermediate Hives Verified 09/21/21 02:29 levofloxacin Allergy Intermediate numbness/we Verified 09/21/21 02:29 akness pregabalin Allergy Intermediate fever?/?cher Verified 09/21/21 02:29 h strawberry Allergy Intermediate Hives Verified 09/21/21 02:29 Sulfa (Sulfonamide Allergy Intermediate Rash, hives Verified 09/21/21 02:29 Antibiotics) vancomycin Allergy Intermediate Bullous Verified 09/21/21 02:29 skin rash allopurinol Allergy Mild Rash Verified 09/21/21 02:29 ceftriaxone [From Rocephin] Allergy Mild Rash Verified 09/21/21 02:29 piperacillin [From Zosyn] Allergy Mild Rash Verified 09/21/21 02:29 tazobactam [From Zosyn] Allergy Mild Rash Verified 09/21/21 02:29 venlafaxine Allergy Unknown Unknown Verified 09/21/21 02:29 gluten AdvReac Severe Celiac Dz Verified 09/21/21 02:29 = GI symptoms propoxyphene AdvReac Intermediate 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 Verified 09/21/21 02:29 effects Home Medications Medication Instructions Recorded Confirmed Type butorphanol 10 mg/mL nasal spray 1 spray INTRANASAL Q3H PRN 07/16/18 09/21/21 History cetirizine 10 mg tablet (Zyrtec) 10 mg PO QAM 07/16/18 09/21/21 History folic acid 1 mg tablet 1 mg PO QAM 07/16/18 09/21/21 History magnesium oxide 400 mg PO QAM 07/16/18 09/21/21 History multivitamin 1 tab PO QAM 07/16/18 09/21/21 History triamcinolone acetonide 0.025 % 1 applic TOPICAL BID PRN 07/16/18 09/21/21 History topical cream vitamin B complex (B-Complex) 1 tab PO QAM 07/16/18 09/21/21 History calcium carbonate 600 mg-vitamin 1 tab PO QPM 11/26/18 09/21/21 History D3 20 mcg (800 unit) tablet (Caltrate with Vitamin D3) cyanocobalamin (vitamin B-12) 1,000 mcg IM MONTHLY 02/10/19 09/21/21 History 1,000 mcg/mL injection solution ferrous sulfate 325 mg (65 mg 325 mg PO QAM 02/10/19 09/21/21 History iron) tablet (iron) psyllium husk 0.52 gram capsule 1.04 g PO QAM 08/28/19 09/21/21 History (Metamucil) vitamin E 400 unit capsule 400 unit PO QAM 08/28/19 09/21/21 History Medical Marijuana 1 ml SUBLINGUAL UD PRN 06/27/20 09/21/21 History denosumab 60 mg/mL subcutaneous 60 mg SUBCUT .q 6 months ml 12/17/20 09/21/21 History syringe (Prolia) acetaminophen 500 mg capsule 500 mg PO QID PRN 01/24/21 09/21/21 History L.acidophilus-B.lactis-B.longum 15 1 cap PO QAM 02/03/21 09/21/21 History billion cell capsule ergocalciferol (vitamin D2) 1,250 50,000 unit PO WEEKLY #12 cap 02/28/21 09/21/21 Rx mcg (50,000 unit) capsule albuterol sulfate 90 mcg/actuation 2 puff INHALATION QID PRN #8.5 gm 04/22/21 09/21/21 Rx aerosol inhaler (ProAir HFA) sertraline 50 mg tablet (Zoloft) 50 mg PO HS 05/19/21 09/21/21 History metoprolol succinate 50 mg 25 mg PO QAM #45 tab 05/23/21 09/21/21 Rx tablet,extended release 24 hr phenazopyridine 200 mg tablet 200 mg PO Q8H PRN #10 tab 05/30/21 09/21/21 Rx (Pyridium) Auto Titrating CPAP #1 ea 06/01/21 08/23/21 Rx CPAP Supplies #1 ea 06/01/21 08/23/21 Rx acyclovir 400 mg tablet 400 mg PO BID #60 tab 06/21/21 09/21/21 Rx methocarbamol 750 mg tablet 750 mg PO BID PRN #60 tab 06/21/21 09/21/21 Rx rizatriptan 10 mg tablet 10 mg PO DAILY PRN #9 tab 06/21/21 09/21/21 Rx topiramate 100 mg tablet (Topamax) 100 mg PO .COMPLEX 30 Days #90 tab 06/21/21 09/21/21 Rx oxybutynin chloride 10 mg 10 mg PO QAM #90 tab 07/14/21 09/21/21 Rx tablet,extended release 24 hr cephalexin 500 mg capsule 500 mg PO QAM #30 cap 07/15/21 09/21/21 Rx mirabegron 50 mg tablet,extended 50 mg PO HS #90 tab 07/25/21 09/21/21 Rx release 24 hr (Myrbetriq) qghdlzhbvv-eqmcrgtctxxbr-dtjfjirc 1 tab PO DAILY PRN 08/10/21 09/21/21 History 50 mg-325 mg-40 mg tablet (Esgic) coQ10 (ubiquinol) 200 mg capsule 200 mg PO QAM 08/10/21 09/21/21 History doxycycline hyclate 100 mg capsule 100 mg PO QAM 08/10/21 09/21/21 History gabapentin 400 mg capsule 400 mg PO QAM 30 Days #30 cap 08/11/21 09/21/21 Rx (Neurontin) potassium chloride 20 mEq 20 meq PO QAM #30 tab 08/11/21 09/21/21 Rx tablet,extended release oxycodone 5 mg tablet 5 mg PO Q4H PRN #20 tab 08/18/21 09/21/21 Rx budesonide-formoterol HFA 80 2 puff INHALATION BID #3 inhaler 08/22/21 09/21/21 Rx mcg-4.5 mcg/actuation aerosol inhaler (Symbicort) clonazepam 1 mg tablet 0.5 mg PO HS #30 tab 08/22/21 09/21/21 Rx quetiapine 50 mg tablet (Seroquel) 50 mg PO HS #30 tab 08/22/21 09/21/21 Rx enoxaparin 30 mg/0.3 mL 30 mg SUBCUT DAILY ml 09/05/21 09/21/21 History subcutaneous syringe Past Med/Surg History Medical History Asthma Celiac disease Cellulitis Recurrent B/L LE - on prophylactic abx (Follows with Dr. Nielson). on chronic Cephalexin and Doxy Chronic back pain Chronic kidney disease Stage III > follows Dr. Fleming Chronic obstructive pulmonary disease Emphysema Cirrhosis of liver Hx of Hep C with cirrhosis Depression History of blood transfusion History of recurrent UTI (urinary tract infection) Hx MRSA infection several yrs ago Hx of cancer of lung s/p radiation (2012), recurrence (2019 in [facility]) s/p radiation- follows with heme/onc Hx of Clostridium difficile infection on Vanco 2x/week for prophylaxis Hx of deep venous thrombosis LLE (1976) Hx of hepatitis C 2013 > "resolved" Hx of non-Hodgkin's lymphoma s/p treatment in 2013 Hydronephrosis b/l chronic hydronephrosis requiring routine stent exchanges Hyperlipidemia Insomnia Migraine Mood disorder Myelodysplasia (myelodysplastic syndrome) Diagnosed 07/09/21 by bone marrow biopsy. Being treated with Azacitidine and Procrit injections. Obstructive sleep apnea 1L O2 HS Osteoporosis Poor historian R/t hx stroke Prediabetes diet control Prothrombin [id number] mutation "Factor 2 mutation" on Lovenox (lifelong), follows with [facility] Psoriasis Radiation pneumonitis Stroke 1996, residual decreased right sided sensation, memory impairment, follows with Dr. Pagan Thrombocytopenia Chronic (platelet baseline in the 40-70s over the past few months) Venous stasis dermatitis Surgical History H/O bursectomy Right knee History of bone marrow biopsy History of bronchoscopy History of carpal tunnel release Left History of cystoscopy Multiple Bilateral Retrograde Pyelogram (05/27/21): MAC at [facility] History of esophagogastroduodenoscopy (EGD) History of liver biopsy History of tooth extraction History of ureter stent MULTIPLE Hx of bladder repair surgery FOR PROLAPSE Hx of colonoscopy Hx of tonsillectomy Hx of tubal ligation Family History Unknown Heart disease Hypertension Mother Psoriasis Diabetes Social History Smoking Status: Former smoker Tobacco Type: Cigarettes Cigarettes Per Day: Quit 02/2011; Smoking End Date: March 07, 2011; Second Hand Exposure: No; Do You Dip or Chew Tobacco: No; Tobacco Cessation Education Requested by Patient: No Hx Alcohol Use: No Hx Substance Use: No Preferred Language: Somali Communication Ability: Effective Visual Impairment: No Limitations Hearing Ability: Normal Mid Wife Required: No Beliefs That Will Affect Care: None marital status: / Current Living Situation: Family Current Living Situation Comment: Son and son's girlfriend current occupational status: retired How many Children do You have: 2 Other Information That Helps Us Care for You: No Feels Safe at Home: Yes Safety Concerns: Feels Safe At This Time Assistive Devices: None Review of Systems Review of Systems: All systems reviewed & are unremarkable except as noted in Subjective Physical Exam Constitutional: + frail appearing, cooperative and comfortable Eyes: PERRL, conjunctivae normal, anicteric sclerae ENMT: external ear and nose normal, oropharynx normal (no erythema or discharge noted in posterior orpharynx ) Neck: trachea midline, no thyromegaly There is a slightly erythematous, flat, roughly 5cm diameter rash on the L neck below the jawline Respiratory: normal respiratory effort, lungs clear to auscultation Cardiovascular: RRR, no murmur, no edema Gastrointestinal (Abdomen): normal bowel sounds, soft, nontender, no hepatosplenomegaly Musculoskeletal: Head/Neck/Chest: normocephalic, head atraumatic and neck supple Extremities: extremities normal to inspection and strength 5/5 throughout Skin: Multiple flat, erythematous appearing lesions noted primarily on the L neck, L upper arm, and R inner thigh. Patient notes these lesions are pruritic Bruising noted on the patient's inner L thigh and R leg below the knee No obvious cuts noted on patient's scalp, neck, arms, face, chest, abdomen, back, legs, feet, and in-between toes. Did not examine patient's buttocks, perineum, nor anterior pelvis or vulva. Neurologic: PERRL, EOMI, accommodation nl, no face palsy, no dysarthria Psychiatric: A+Ox3, euthymic affect Results & Data Results & Data ([facility]) Vital Signs (Past 12 Hours) Vital Signs Temp Pulse Pulse Resp BP BP Pulse Ox 09/21/21 01:44 82 84 17 107/60 97 09/20/21 17:24 36.7 C 97 H 16 119/57 L 97 Supervising Physician Co-Signing Physician Notes Attending addendum: I have physically seen this patient, have supervised the medical residents activities, and agree with the H&P unless as otherwise noted. Assessment and Plan: Neutropenic fever- ANC 430, follow serially Temperature 100.8 F at home, but normal in the ED Received cefepime from the ED, with itching afterwards. Multiple antibiotic sensitivities noted Place on linezolid IV and aztreonam IV Follow blood culture and sensitivity Follow urine culture and sensitivities Neutropenic precautions Continue prophylaxis with acyclovir and doxycycline Hold on Neupogen due to history of MDS Remaining orders and notations as noted Resident Activity Tracking Resident Involvement: Resident Care Provided Care Provided: Adult [facility]
[2021-09-21] MEDS: LINEZOLID 600 MG/300 ML BAG IV SCH ×2 (05:13→15:07)
[2021-09-21] MEDS ORDERED: LACTATED RINGER'S 1,000 ML IV SCH (08:06)
[2021-09-21] MEDS ORDERED: TOPIRAMATE 100 MG TAB PO SCH (08:06)
[2021-09-21] MEDS ORDERED: ALBUTEROL HFA 8 GM INHALER INH PRN (08:35)
[2021-09-21] MEDS: OXYBUTYNIN CHLORIDE XL 5 MG TABCR PO SCH (10:16)
[2021-09-21] MEDS: GABAPENTIN 400 MG CAP PO SCH (10:16)
[2021-09-21] MEDS: ACYCLOVIR 400 MG TAB PO SCH ×2 (10:16→22:29)
[2021-09-21] MEDS: TOPIRAMATE 100 MG TAB PO SCH ×2 (10:17→22:29)
[2021-09-21] MEDS: FLUTICASONE/VILANTEROL 200/25MCG 14 PUFFS/INHALER INH SCH (10:18)
[2021-09-21] MEDS: AZTREONAM 2,000 MG in DEXTROSE 5% 100 ML IV SCH ×2 (10:18→18:41)
[2021-09-21] MEDS: DOXYCYCLINE HYCLATE 100 MG CAP PO SCH ×3 (10:18→18:41)
[2021-09-21] MEDS: oxyCODONE HCL IR 5 MG TAB (IMMEDIATE RELEASE) PO PRN ×3 (10:19→20:05)
[2021-09-21] MEDS: ACETAMINOPHEN 325 MG TAB PO PRN ×2 (10:41→15:14)
[2021-09-21] MEDS ORDERED: Nursing to Pharmacy Communication SCH (11:00)
--- NOTE | 2021-09-21 13:04 | Electrocardiogram Report ---
Test Reason : Blood Pressure : / mmHG Vent. Rate : 080 BPM Atrial Rate : 080 BPM P-R Int : 152 ms QRS Dur : 072 ms QT Int : 402 ms P-R-T Axes : 080 046 064 degrees QTc Int : 463 ms Normal sinus rhythm Normal ECG When compared with ECG of 09-AUG-2021 19:49, Nonspecific T wave abnormality no longer evident in Anterior leads Confirmed by Reynold Garcia ([id number]) on 09/21/2021 1:04:26 PM Referred By: REFERRED SELF Confirmed By:Agus Garcia
[2021-09-21 18:49] LABS: Hematocrit (blood only) 25.4 % (37-47); Hemoglobin 8.1 g/dL (12.0-16.0); Mean Corpuscular Hemoglobin 26.9 pg (25-34); Mean Corpuscular Hgb Conc 31.9 g/dL (32-36); Mean Corpuscular Volume 84.4 fL (80-100); Nucleated RBC % (auto) 7.2 %; Platelet Count 20 K/uL (130-400); RDW Coefficient of Variation 18.7 % (11.5-14.5); RDW Standard Deviation 55.8 fL (36.4-46.3); Red Blood Count 3.01 M/uL (4.2-5.4); White Blood Count 1.38 K/uL (4.8-10.8)
[2021-09-21 19:01] LABS: Platelet Estimate SIGNIFIC DECREASED (Normal); Polychromasia 1+; Toxic Vacuolation 1+
[2021-09-21 19:04] LABS: ALC (manual) 0.45 K/uL (1.2-3.4); ANC (manual) 0.75 K/uL (1.4-6.5); Basophils # (manual) 0.02 K/uL (0-0.2); Basophils % (manual) 1.8 %; Blast # (manual) 0.07 K/uL (0-0); Blast Cells % (manual) 5.4 %; Eosinophils # (manual) 0.02 K/uL (0-0.5); Eosinophils % (manual) 1.8 %; Lymphocytes # (manual) 0.45 K/uL (1.2-3.4); Lymphocytes % (manual) 32.4 %; Monocytes # (manual) 0.06 K/uL (0.11-0.59); Monocytes % (manual) 4.5 %; Neutrophils # (manual) 0.75 K/uL (1.4-6.5); Neutrophils % (manual) 54.1 %
[2021-09-21] MEDS ORDERED: SERTRALINE HCL 50 MG TABLET PO SCH (21:00)
[2021-09-21] MEDS: QUEtiapine FUMARATE 25 MG TABLET PO SCH (22:29)
[2021-09-21] MEDS: MIRABEGRON ER 25 MG TAB PO SCH (22:29)
[2021-09-21] MEDS: clonazePAM 0.5 MG TAB PO SCH (22:29)
[2021-09-22] MEDS: AZTREONAM 2,000 MG in DEXTROSE 5% 100 ML IV SCH ×3 (03:34→17:51)
[2021-09-22] MEDS: LINEZOLID 600 MG/300 ML BAG IV SCH ×2 (04:56→17:49)
[2021-09-22 05:49] LABS: Influenza A virus by PCR Negative (Negative); Influenza B virus by PCR Negative (Negative)
[2021-09-22 08:15] LABS: Platelet Estimate SIGNIFIC DECREASED (Normal); Poikilocytosis Present
[2021-09-22 08:18] LABS: ALC (manual) 0.49 K/uL (1.2-3.4); ANC (manual) 0.62 K/uL (1.4-6.5); Basophils # (manual) 0.02 K/uL (0-0.2); Basophils % (manual) 1.8 %; Blast # (manual) 0.01 K/uL (0-0); Blast Cells % (manual) 0.9 %; Eosinophils # (manual) 0.03 K/uL (0-0.5); Eosinophils % (manual) 2.6 %; Lymphocytes # (manual) 0.49 K/uL (1.2-3.4); Lymphocytes % (manual) 37.7 %; Mean Corpuscular Hgb Conc 32.7 g/dL (32-36); Monocytes # (manual) 0.09 K/uL (0.11-0.59); Myelocytes # (manual) 0.03 K/uL (0-0); Myelocytes % (manual) 2.6 %; Neutrophils # (manual) 0.62 K/uL (1.4-6.5); Neutrophils % (manual) 47.4 %; Nucleated RBC # (auto) 0.03 K/uL (0-0); Nucleated RBC % (auto) 2.7 %; Platelet Count 15 K/uL (130-400)
[2021-09-22 08:22] LABS: Albumin Globulin Ratio 0.8 (0.9-2); Albumin Level 2.4 gm/dl (3.4-5.0); Bilirubin,Total 0.6 mg/dl (0.2-1); Calcium 6.6 mg/dl (8.5-10.1); Creatinine Clr Calc Pharmacy 40.5 ml/min; Est GFR (African American) 65.6 ml/min; Est GFR (Non-African American) 56.6 ml/min; Globulin 3.1 gm/dl (2.5-4.0); Potassium 3.6 mmol/L (3.5-5.1); Total Protein 5.5 gm/dl (6.4-8.2)
[2021-09-22 08:40] LABS: Hematocrit (blood only) 20.2 % (37-47); Hemoglobin 6.6 g/dL (12.0-16.0); Mean Corpuscular Hemoglobin 26.7 pg (25-34); Mean Corpuscular Volume 81.8 fL (80-100); RDW Coefficient of Variation 18.7 % (11.5-14.5); RDW Standard Deviation 53.9 fL (36.4-46.3); Red Blood Count 2.47 M/uL (4.2-5.4)
[2021-09-22] MEDS ORDERED: SODIUM CHLORIDE 0.9% 250 ML IV PRN (09:15)
[2021-09-22] MEDS ORDERED: ACETAMINOPHEN 325 MG TAB PO SCH (09:30)
[2021-09-22] MEDS ORDERED: CALCIUM GLUCONATE 10% 1,000 MG in SODIUM CHLORIDE 0.9% 50 ML IV ONE (09:30)
[2021-09-22] MEDS ORDERED: diphenhydrAMINE Capsule 25 MG CAP PO SCH (09:30)
[2021-09-22] MEDS: ACYCLOVIR 400 MG TAB PO SCH ×2 (10:02→23:05)
[2021-09-22] MEDS: oxyCODONE HCL IR 5 MG TAB (IMMEDIATE RELEASE) PO PRN ×3 (10:02→23:03)
[2021-09-22] MEDS: FLUTICASONE/VILANTEROL 200/25MCG 14 PUFFS/INHALER INH SCH (10:03)
[2021-09-22] MEDS: GABAPENTIN 400 MG CAP PO SCH (10:04)
[2021-09-22] MEDS: OXYBUTYNIN CHLORIDE XL 5 MG TABCR PO SCH (10:05)
[2021-09-22] MEDS: METHOCARBAMOL 750 MG TABLET PO PRN ×2 (10:06→23:02)
[2021-09-22] MEDS: TOPIRAMATE 100 MG TAB PO SCH ×2 (10:06→23:07)
--- NOTE | 2021-09-22 13:10 | Consultation Report ---
HEMATOLOGY CONSULTATION DATE OF SERVICE: 09/22/2021. REASON FOR CONSULTATION: Neutropenic fever. HISTORY OF PRESENT ILLNESS: Aleja Duron is a very pleasant 66-year-old female well known to [facility], currently under my care for recently diagnosed secondary myelodysplasia. Aleja Haq was diagnosed with MDS a couple of months ago and I started her on 5-azacitidine a little over a month ago. Since her first dose, she has manifested a protracted myelosuppression. She has been in and out of the hospital because of fever and pancytopenia. I actually saw her in consultation on 08/10 when she was admitted shortly after receiving her initial course of 5-azacitidine, which was completed on 07/22/2021. During that admission, had developed cellulitis and unfortunately had an allergic reaction to the antibiotics. This is now I believe her third admission for pancytopenia and neutropenic fever. She was actually seen by one of my extenders and nursing staff at [facility] who prompted her to go to the Emergency Room. This morning, her platelets are measuring 15,000, hemoglobin 6.6 g/dL. Instructed the hospitalist to proceed with transfusional support moving forward. Fortunately, thus far, her blood and urine cultures are negative. Her fever has been fluctuant in the low 100 degree range. She is not complaining of nausea or vomiting. Her weight and appetite have remained relatively stable. Hospitalist service is requesting a consultation for this pleasant, somewhat complex 66-year-old patient. PAST MEDICAL HISTORY: Significant for prior history of marginal zone lymphoma as well as squamous cell carcinoma of the lung, chronic obstructive pulmonary disease, chronic kidney disease, history of cellulitis, celiac disease, secondary myelodysplasia, hyperlipidemia, mood disorder, obstructive sleep apnea, osteoporosis, prediabetes, stroke, stasis dermatitis and cirrhosis of the liver. PAST SURGICAL HISTORY: Includes tubal ligation, tonsillectomy, colonoscopy, bladder repair surgery for prolapse, history of ureter stent placement, tooth extraction, liver biopsy, EGD, bilateral retrograde pyelogram, cystoscopy, carpal tunnel release, bronchoscopy, bone marrow biopsy and aspiration, and bursectomy of right knee. MEDICATIONS: Include butorphanol nasal spray 1 spray intranasally q.3 hours p.r.n., cetirizine 10 mg p.o. daily, folic acid 1 mg p.o. daily, magnesium oxide 400 mg p.o. daily, triamcinolone cream applied to affected area topically b.i.d., vitamin B complex 1 tablet p.o. daily, calcium carbonate with vitamin D3 600 mg 1 tablet p.o. q.p.m., cyanocobalamin 1000 mcg IM monthly, ferrous sulfate 325 mg p.o. daily, vitamin E 400 mg p.o. daily, medical marijuana 1 mL sublingual as directed p.r.n., Prolia 60 mg subcutaneously q.6 months, gabapentin 400 mg p.o. daily, potassium chloride 20 mEq p.o. daily, quetiapine 50 mg p.o. at bedtime, vitamin D2 50,000 units p.o. q. weekly, vancomycin 125 mg p.o. q.2 weeks, albuterol sulfate 2 puffs inhaled q.i.d., sertraline 50 mg p.o. at bedtime, metoprolol 25 mg p.o. daily, Pyridium 200 mg p.o. q.8 hours p.r.n., clonazepam 1 mg p.o. at bedtime, acyclovir 400 mg p.o. b.i.d., methocarbamol 750 mg p.o. b.i.d. p.r.n., rizatriptan 10 mg p.o. daily p.r.n., Topamax 100 mg p.o. daily, budesonide 2 puffs inhaled b.i.d., oxybutynin chloride 10 mg p.o. daily, cephalexin 500 mg p.o. daily, Myrbetriq 50 mg p.o. at bedtime, butalbital/acetaminophen/caffeine 1 tablet p.o. p.r.n., Coenzyme Q10 200 mg p.o. daily, doxycycline 100 mg p.o. daily. ALLERGIES: BEE VENOM, ADHESIVE, IV CONTRAST DYE, LEVOFLOXACIN, PREGABALIN, STRAWBERRIES, SULFA, ALLOPURINOL, CEFTRIAXONE, PIPERACILLIN/TAZOBACTAM, EFFEXOR, GLUTEN, PROPOXYPHENE. FAMILY HISTORY: Really unknown. SOCIAL HISTORY: The patient is a reformed smoker. She is single, lives with her son and son's girlfriend. REVIEW OF SYSTEMS: CONSTITUTIONAL: Positive for fevers and chills. No anorexia or weight loss. SKIN: No rashes or lesions. No petechiae or bruising. HEENT: No current headache. She has a history of migraines. No visual disturbances, no hearing loss, sinus symptoms, sore throat or dysphagia. LYMPHATICS: Positive history of non-Hodgkin lymphoma. No current lymphadenopathy. CARDIAC: No current angina or palpitations. PULMONARY: She is not acutely short of breath, dyspneic or orthopneic. No cough or hemoptysis. GASTROINTESTINAL: Negative for abdominal pain, nausea, vomiting, diarrhea or constipation, hematochezia or melena stools. GENITOURINARY: No hematuria, dysuria, or urinary incontinence. MUSCULOSKELETAL: No arthralgias or myalgias. No focal muscle weakness. ENDOCRINE: Positive for diabetes mellitus. NEUROLOGIC: Negative for seizures. Positive history of migraine headache and previous CVA. HEMATOLOGIC: Pancytopenia attributable to chemotherapeutics. PHYSICAL EXAMINATION: GENERAL: A very pleasant 66-year-old female, awake, alert and appropriate, in no acute distress. VITAL SIGNS: Temperature 36.8, pulse 88, respiratory rate 15, blood pressure 100/62. SKIN: Warm, dry, noncyanotic without petechia, rash or ecchymosis. HEENT: Atraumatic, normocephalic. Eyes: PERRLA. EOMI. Sclerae are nonicteric. No conjunctival injection. Nares patent without rhinorrhea or discharge. Throat clear. Tongue midline. Mucous membranes are moist. No evidence of mucositis or thrush. NECK: Supple. HEART: Regular rate and rhythm. LUNGS: Clear to auscultation bilaterally. ABDOMEN: Soft, nontender, nondistended, without palpable hepatosplenomegaly. EXTREMITIES: No clubbing, cyanosis or edema. MUSCULOSKELETAL: Strength and pulses are equal in all 4 quadrants. NEUROLOGIC: Grossly intact. LABORATORY DATA: WBC count 1300, hemoglobin 6.6, platelet count 15,000, absolute neutrophil count 620. Sodium 137, potassium 3.6, chloride 110, carbon dioxide 19, creatinine 1.03, BUN 19, albumin 2.4. IMPRESSION: 1. Neutropenic fever. 2. Secondary myelodysplasia. 3. Refractory pancytopenia attributable to 5-azacitidine. 4. Hypoalbuminemia. 5. Anxiety. PLAN: Aleja Duron is a very pleasant and equally complex 66-year-old female well known to me, under my care for secondary myelodysplasia. Diagnosis was established earlier this summer by bone marrow biopsy and aspiration. She received her initial course of 5-azacitidine in early July of this year. Unfortunately, we have not been able to resume treatment because of frequent hospitalization and refractory myelosuppression. She has been in and out of the [facility] now, I believe this is her third admission in the last couple of months. She remains transfusion dependent for both packed RBCs and platelets. I took a notice of her most recent type and screen and now she has positive antibodies. Hopefully, she is not developing alloimmunization. That said, we need to continue transfusional support. I generally do not give granulocyte colony stimulating growth factor in the setting of MDS. However, her neutrophil count has been very slow to recover. In this case, I think administering 1 or 2 doses of Neupogen may be enough to bolster her counts to stop this cycle of fever and admission to the hospital. Problem lies on what to do with her thereafter. I had actually seen Aleja Haq in the office a couple of days before this admission and decided to continue observation for another month before resuming 5-azacitidine. Generally speaking, the myelosuppression in itself is not prohibitive to restart treatment. However, she has had frequent hospitalizations and infections, and thus reluctant to resume expediently. That said, I agree with medical management otherwise. Thank you for assisting me in the care of this very pleasant patient and we will continue to monitor during her hospital stay. Job ID: [id number]
[2021-09-22] MEDS ORDERED: diphenhydrAMINE Capsule 25 MG CAP PO ONE (16:06)
[2021-09-22] MEDS ORDERED: ACETAMINOPHEN 325 MG TAB PO ONE (16:06)
--- NOTE | 2021-09-22 16:09 | Hospitalist Progress Note ---
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 Patient had reached out to her oncologists office in regards to her symptoms and fevers and was urged to come to the ED for evaluation as her last ANC was 660. Covid-19 -, flu A/B checked this morning and is also negative Neutropenic Fever -Last chemo in July per patient-has only received 1 dose of 5-azacitidine so far and has had persistent pancytopenia since then -Patient with fever of 100.8F at home and has had several recurrences of neutropenic fever over the last 2 months -Remains neutropenic today, but afebrile since the morning of 09/21 -Empirically cover with Aztreonam and Linezolid due to allergies-blood cultures no growth to date-we will likely discontinue these antibiotics tomorrow if blood cultures remain no growth at 48-hour akira -Patient does note history of urine related infections secondary to her urinary stents -Urine culture now growing yeast-ID pending. She has had numerous cultures in the past with yeast not Rachelle and it is not clear if these have ever been treated -Given that she is having neutropenic fever and has indwelling ureteral stents-I feel that she should be treated with IV caspofungin -Starting IV caspofungin -Consult infectious disease for further opinion -Neutropenic precautions -Continue prophylactic home Doxycycline and Acyclovir (2) Acute UTI (urinary tract infection): Plan: With bilateral indwelling ureteral stents With neutropenic fever as above Growing yeast in the urine-she has grown Rachelle not albicans and Rachelle glabrata in the past-I cannot tell that she is ever been treated for this previously Blood cultures without yeast so far -Start caspofungin 70 mg IV x1 now and then 50 mg IV once daily after that Consult ID for further recommendations (3) Pancytopenia: Plan: Secondary to chemotherapy Hemoglobin significantly low today down to 6.6 from 8.1 yesterday Unfortunately she has developed antibodies in her blood-awaiting blood products all day from [place] [facility] to transfuse 2 units PRBCs Platelets down to 15 today-transfuse 1 pack of platelets Follow CBC in the morning Hematology/oncology recommends 1 or 2 doses of Neupogen-we will give Neupogen 480 SQ now (4) Myelodysplasia (myelodysplastic syndrome): Plan: Secondary myelodysplasia due to previous treatment for lymphoma Currently undergoing chemotherapy with 5azacitidine which is caused her significant pancytopenia as above (5) Hx of Clostridium difficile infection: Plan: With a history of C. difficile at least once or twice in the past Typically takes vancomycin twice a week While on antibiotics, will start vancomycin 125 mg p.o. once daily Monitor for development of diarrhea (6) S/P ureteral stent placement: Plan: With bilateral indwelling ureteral stents for chronic hydronephrosis Last exchanged in the beginning of May Is overdue for an exchange but has been unable to get it done due to severe pancytopenia -Follow-up with urology once blood counts are improved (7) COPD (chronic obstructive pulmonary disease): Plan: -Continue albuterol PRN -Continue home Symbicort (8) Chronic kidney disease, stage III (moderate): Plan: Stable -Avoid nephrotoxins -renally dose meds when appropriate -follow BMP (9) Prothrombin [id number] mutation: Plan: Previously on Lovenox lifelong, but has been held due to significant thrombocytopenia (10) Hypocalcemia: Plan: Give 1 g of calcium gluconate today Follow chemistry in the morning (11) Obstructive sleep apnea: Plan: Continue supplemental O2 at bedtime (12) Migraine: Plan: -Continue home Topamax for prophylaxis (13) Urge and stress incontinence: Plan: Continue Myrbetriq and oxybutynin (14) Depression: Plan: With anxiety -Continue home clonazepam -Continue home Seroquel -Continue home Zoloft Plan: DVT prophylaxis-add HOMAR hose, avoid SCDs due to thrombocytopenia and risk of trauma. Avoid anticoagulation otherwise due to severe thrombocytopenia and anemia Disposition-continued stay on medical telemetry unit Admission and Anticipated Discharge Date Admission Date: September 21, 2021 Subjective Patient reports pain in her left flank with urination and urinary urgency, no hematuria. No chest pains or shortness of breath, no nausea or vomiting, no diarrhea but has a history of C. difficile she notes. Feels very weak and short of breath with minimal exertion to walk to the bathroom. She is agreeable to transfusion Telemetry with normal sinus rhythm with rates in the 90s Review of Systems Review of Systems: All systems reviewed & are unremarkable except as noted in HPI & below Physical Exam Constitutional: WD/WN, vitals as above Eyes: PERRL, conjunctivae normal, anicteric sclerae ENMT: external ear and nose normal, oropharynx normal Neck: trachea midline, no thyromegaly Respiratory: normal respiratory effort, lungs clear to auscultation Cardiovascular: RRR, no murmur, no edema Chest (Breasts): Chest: normal inspection of chest Gastrointestinal (Abdomen): normal bowel sounds, soft, nontender, no hepatosplenomegaly Musculoskeletal: Extremities: extremities normal to inspection; no cyanosis and no clubbing Skin: no rashes, warm and dry Neurologic: moves all extremities and awake; no focal motor deficits Psychiatric: A+Ox3, euthymic affect Lymphatic: no lymphedema Results & Data Results & Data ([facility]) Vital Signs (Past 12 Hours) Vital Signs Temp Pulse Pulse Resp BP BP Pulse Ox 09/22/21 14:30 36.6 C 90 20 98/60 L 96 09/22/21 13:30 36.5 C 91 H 18 105/60 98 09/22/21 13:00 36.5 C 90 20 95/54 L 99 09/22/21 12:45 36.5 C 94 H 20 96/55 L 09/22/21 12:26 36.8 C 88 15 100/62 98 09/22/21 07:28 36.8 C 94 H 20 90/51 L 100 Laboratory Results 09/22/21 06:43 09/22/21 06:43 PG Care Time/CCT Total # of Minutes Spent Total Time Spent with Patient: Total time spent is greater than 50% in coordination of care (as documented) at patient's floor/unit and/or counseling patient: Coding Level of Care Code 51472 Subseq Hosp Care Lvl 3 Diagnoses Neutropenic fever D70.9; R50.81 Myelodysplasia (myelodysplastic syndrome) D46.9 Hx of Clostridium difficile infection Z86.19 S/P ureteral stent placement Z96.0 Pancytopenia D61.818 Urge and stress incontinence N39.46 COPD (chronic obstructive pulmonary disease) J44.9 Chronic kidney disease, stage III (moderate) N18.30 Chronic kidney disease stage 3 subtype: unspecified whether 3a or 3b Depression F32.9 Acute UTI (urinary tract infection) N39.0 Obstructive sleep apnea G47.33 Prothrombin [id number] mutation D68.52 Hypocalcemia E83.51 Migraine G43.909 (1) Chronic kidney disease, stage III (moderate) Chronic kidney disease stage 3 subtype: unspecified whether 3a or 3b Qualified Code(s): N18.30 - Chronic kidney disease, stage 3 unspecified
[2021-09-22] MEDS: DOXYCYCLINE HYCLATE 100 MG CAP PO SCH (17:50)
[2021-09-22] MEDS ORDERED: COUGH DROP (SUGAR FREE) LOZ 24 LOZ/1 BOX BUCCAL STA (17:52)
[2021-09-22] MEDS: VANCOMYCIN HCL 125 MG/2.5ML SOLN PO SCH (18:34)
[2021-09-22] MEDS: RASPBERRY SYRUP 5 ML UDP PO SCH (18:34)
[2021-09-22] MEDS: SACCHAROMYCES BOULARDII 250 MG CAP PO SCH (18:34)
--- NOTE | 2021-09-22 20:18 | Emergency Department Note ---
Impression & Plan Neutropenic fever, Myelodysplastic disease ED Provider Note CHIEF COMPLAINT: fever, neutropenia HISTORY OF PRESENT ILLNESS: This 66 yo female patient presents to the emergency department with c/o fever of 100.4 and 100.6 this afternoon around 11 AM. Patient states she did take Tylenol around that time. Patient states she has had a sore throat and some nasal congestion recently. She denies any chest pain, shortness of breath, vomiting or diarrhea. REVIEW OF SYSTEMS: A review of systems was performed with positives and pertinent negatives listed in the history of present illness. 10 systems were reviewed and are otherwise negative. ALLERGIES: see below MEDICATIONS: see below PMH: see below SOCIAL HISTORY: see below DDx: Viral syndrome, otitis, pharyngitis, pneumonia, influenza, meningitis, urinary tract infection, sepsis, bacteremia, as well as other pathologies. PHYSICAL EXAM: Vital signs reviewed. General: Chronically ill-appearing thin and frail 66-year-old female in no severe distress. Patient is ambulatory about the room. HEENT: No scleral icterus, PERRLA, neck supple. Atraumatic. Cardiovascular: Regular rate and rhythm, no extra sounds. Pulmonary: Clear to auscultation bilaterally, normal work of breathing. Abdomen: Soft, nontender, nondistended, positive bowel sounds. Musculoskeletal: Atraumatic, no peripheral edema. Neurologic: Patient awake alert and oriented x 3, speech is clear. No meningeal signs. Skin: Warm, dry, no rash EMERGENCY DEPARTMENT COURSE/MDM: This patient was evaluated and appeared to be in no significant distress. IV access was obtained and laboratory work was drawn. Patient was placed on the telemetry monitor and noted to be in a normal sinus rhythm. Patient was hydrated with normal saline solution. Blood cultures were sent. Laboratory work confirms neutropenia. Urinalysis is concerning for infection. Covid swab was obtained and is negative. After review of the patient's records with pharmacy, patient was medicated with IV cefepime 2 g. She had tolerated this well in the past. Patient then began to complain of itching and subsequently had a headache. She requested medication for both. Patient was given IV Benadryl 25 mg, Zofran and morphine. Patient's case was discussed with the hospitalist service who will evaluate the patient for admission and further management. Patient was made aware of the plan and agreed. MONITORING: An order for cardiac monitoring was placed and the patient is noted to be in a NSR at 80 beats per minute. RADIOLOGY: See below EKG: Normal sinus rhythm at 80 bpm. No PVC, no PAC. Normal axis. QTC is 463. DISPOSITION: Admission Past Med/Surg History Medical History (Updated 09/22/21 @ 20:18 by Muna Bazzi MD) Asthma Celiac disease Cellulitis Recurrent B/L LE - on prophylactic abx (Follows with Dr. Nielson). on chronic Cephalexin and Doxy Chronic back pain Chronic kidney disease Stage III > follows Dr. Fleming Chronic obstructive pulmonary disease Emphysema Cirrhosis of liver Hx of Hep C with cirrhosis Depression History of blood transfusion History of recurrent UTI (urinary tract infection) Hx MRSA infection several yrs ago Hx of cancer of lung s/p radiation (2012), recurrence (2019 in [facility]) s/p radiation- follows with heme/onc Hx of Clostridium difficile infection on Vanco 2x/week for prophylaxis Hx of deep venous thrombosis LLE (1976) Hx of hepatitis C 2013 > "resolved" Hx of non-Hodgkin's lymphoma s/p treatment in 2013 Hydronephrosis b/l chronic hydronephrosis requiring routine stent exchanges Hyperlipidemia Insomnia Migraine Mood disorder Myelodysplasia (myelodysplastic syndrome) Diagnosed 07/09/21 by bone marrow biopsy. Being treated with Azacitidine and Procrit injections. 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 Pagan Thrombocytopenia Chronic (platelet baseline in the 40-70s over the past few months) Venous stasis dermatitis Surgical History H/O bursectomy Right knee History of bone marrow biopsy History of bronchoscopy History of carpal tunnel release Left History of cystoscopy Multiple Bilateral Retrograde Pyelogram (05/27/21): [facility] at [facility] History of esophagogastroduodenoscopy (EGD) History of liver biopsy History of tooth extraction History of ureter stent MULTIPLE Hx of bladder repair surgery FOR PROLAPSE Hx of colonoscopy Hx of tonsillectomy Hx of tubal ligation Family History Unknown Heart disease Hypertension Mother Psoriasis Diabetes Social History Smoking Status: Former smoker Tobacco Type: Cigarettes Cigarettes Per Day: Quit 02/2011; Smoking End Date: March 07, 2011; Second Hand Exposure: No; Do You Dip or Chew Tobacco: No; Tobacco Cessation Education Requested by Patient: No Hx Alcohol Use: No Hx Substance Use: No Preferred Language: [place] Communication Ability: Effective Visual Impairment: No Limitations Hearing Ability: Normal Pickle Processor Required: No Beliefs That Will Affect Care: None marital status: / Current Living Situation: Family Current Living Situation Comment: Son and son's girlfriend current occupational status: retired How many Children do You have: 2 Other Information That Helps Us Care for You: No Feels Safe at Home: Yes Safety Concerns: Feels Safe At This Time Assistive Devices: CPAP and Oxygen - Continuous Allergies Allergies Allergy/AdvReac Type Severity Reaction Status Date / Time bee venom protein (honey bee) Allergy Severe Difficulty Verified 09/21/21 02:29 Breathing adhesive Allergy Intermediate Red torn Verified 09/21/21 02:29 skin Iodinated Contrast Media Allergy Intermediate Hives Verified 09/21/21 02:29 iodine Allergy Intermediate Hives Verified 09/21/21 02:29 levofloxacin Allergy Intermediate numbness/we Verified 09/21/21 02:29 akness pregabalin Allergy Intermediate fever?/?cher Verified 09/21/21 02:29 h strawberry Allergy Intermediate Hives Verified 09/21/21 02:29 Sulfa (Sulfonamide Allergy Intermediate Rash, hives Verified 09/21/21 02:29 Antibiotics) vancomycin Allergy Intermediate Bullous Verified 09/21/21 02:29 skin rash allopurinol Allergy Mild Rash Verified 09/21/21 02:29 ceftriaxone [From Rocephin] Allergy Mild Rash Verified 09/21/21 02:29 piperacillin [From Zosyn] Allergy Mild Rash Verified 09/21/21 02:29 tazobactam [From Zosyn] Allergy Mild Rash Verified 09/21/21 02:29 venlafaxine Allergy Unknown Unknown Verified 09/21/21 02:29 gluten AdvReac Severe Celiac Dz Verified 09/21/21 02:29 = GI symptoms propoxyphene AdvReac Intermediate [employer] side Verified 09/21/21 02:29 effects Home Meds Home Medications Medication Instructions Recorded Confirmed butorphanol 10 mg/mL nasal spray 1 spray INTRANASAL Q3H PRN 07/16/18 09/21/21 cetirizine 10 mg tablet (Zyrtec) 10 mg PO QAM 07/16/18 09/21/21 folic acid 1 mg tablet 1 mg PO QAM 07/16/18 09/21/21 magnesium oxide 400 mg PO QAM 07/16/18 09/21/21 multivitamin 1 tab PO QAM 07/16/18 09/21/21 triamcinolone acetonide 0.025 % 1 applic TOPICAL BID PRN 07/16/18 09/21/21 topical cream vitamin B complex (B-Complex) 1 tab PO QAM 07/16/18 09/21/21 calcium carbonate 600 mg-vitamin 1 tab PO QPM 11/26/18 09/21/21 D3 20 mcg (800 unit) tablet (Caltrate with Vitamin D3) cyanocobalamin (vitamin B-12) 1,000 mcg IM MONTHLY 02/10/19 09/21/21 1,000 mcg/mL injection solution ferrous sulfate 325 mg (65 mg 325 mg PO QAM 02/10/19 09/21/21 iron) tablet (iron) psyllium husk 0.52 gram capsule 1.04 g PO QAM 08/28/19 09/21/21 (Metamucil) vitamin E 400 unit capsule 400 unit PO QAM 08/28/19 09/21/21 Medical Marijuana 1 ml SUBLINGUAL UD PRN 06/27/20 09/21/21 denosumab 60 mg/mL subcutaneous 60 mg SUBCUT .q 6 months ml 12/17/20 09/21/21 syringe (Prolia) acetaminophen 500 mg capsule 500 mg PO QID PRN 01/24/21 09/21/21 L.acidophilus-B.lactis-B.longum 15 1 cap PO QAM 02/03/21 09/21/21 billion cell capsule sertraline 50 mg tablet (Zoloft) 50 mg PO HS 05/19/21 09/21/21 qlcncbdefq-zwsestgtxurpg-yisqthpe 1 tab PO DAILY PRN 08/10/21 09/21/21 50 mg-325 mg-40 mg tablet (Esgic) coQ10 (ubiquinol) 200 mg capsule 200 mg PO QAM 08/10/21 09/21/21 doxycycline hyclate 100 mg capsule 100 mg PO QAM 08/10/21 09/21/21 enoxaparin 30 mg/0.3 mL 30 mg SUBCUT DAILY ml 09/05/21 09/21/21 subcutaneous syringe Previous Rx's Medication Instructions Recorded ergocalciferol (vitamin D2) 1,250 50,000 unit PO WEEKLY #12 cap 02/28/21 mcg (50,000 unit) capsule albuterol sulfate 90 mcg/actuation 2 puff INHALATION QID PRN #8.5 gm 04/22/21 aerosol inhaler (ProAir HFA) metoprolol succinate 50 mg 25 mg PO QAM #45 tab 05/23/21 tablet,extended release 24 hr phenazopyridine 200 mg tablet 200 mg PO Q8H PRN #10 tab 05/30/21 (Pyridium) Auto Titrating CPAP #1 ea 06/01/21 CPAP Supplies #1 ea 06/01/21 acyclovir 400 mg tablet 400 mg PO BID #60 tab 06/21/21 methocarbamol 750 mg tablet 750 mg PO BID PRN #60 tab 06/21/21 rizatriptan 10 mg tablet 10 mg PO DAILY PRN #9 tab 06/21/21 topiramate 100 mg tablet (Topamax) 100 mg PO .COMPLEX 30 Days #90 tab 06/21/21 oxybutynin chloride 10 mg 10 mg PO QAM #90 tab 07/14/21 tablet,extended release 24 hr cephalexin 500 mg capsule 500 mg PO QAM #30 cap 07/15/21 mirabegron 50 mg tablet,extended 50 mg PO HS #90 tab 07/25/21 release 24 hr (Myrbetriq) gabapentin 400 mg capsule 400 mg PO QAM 30 Days #30 cap 08/11/21 (Neurontin) potassium chloride 20 mEq 20 meq PO QAM #30 tab 08/11/21 tablet,extended release oxycodone 5 mg tablet 5 mg PO Q4H PRN #20 tab 08/18/21 budesonide-formoterol HFA 80 2 puff INHALATION BID #3 inhaler 08/22/21 mcg-4.5 mcg/actuation aerosol inhaler (Symbicort) clonazepam 1 mg tablet 0.5 mg PO HS #30 tab 08/22/21 quetiapine 50 mg tablet (Seroquel) 50 mg PO HS #30 tab 08/22/21 Results & Data (ED) Home Medications Current Medication List: was personally reviewed by me Laboratory Data Attestation: I reviewed the patient's lab results. Result diagrams: 09/22/21 06:43 09/22/21 06:43 Lab Results 09/20/21 09/20/21 09/20/21 Range/Units 17:40 17:40 17:40 WBC 1.76 L (4.8-10.8) K/uL RBC 2.97 L (4.2-5.4) M/uL Hgb 8.0 L (12.0-16.0) g/dL Hct 25.0 L (37-47) % MCV 84.2 (80-100) fL MCH 26.9 (25-34) pg MCHC 32.0 (32-36) g/dL RDW Std Deviation 54.7 H (36.4-46.3) fL RDW Coeff of Irasema 18.3 H (11.5-14.5) % Plt Count 20 L* (130-400) K/uL Immature Gran % (Auto) 0.6 % Neut % (Auto) 24.3 % Lymph % (Auto) 61.4 % [place] % (Auto) 12.5 % Eos % (Auto) 0.6 % Baso % (Auto) 0.6 % Neut # (Auto) 0.43 L* (1.4-6.5) K/uL Lymph # (Auto) 1.08 L (1.2-3.4) K/uL [place] # (Auto) 0.22 (0.11-0.59) K/uL Eos # (Auto) 0.01 (0-0.5) K/uL Baso # (Auto) 0.01 (0-0.2) K/uL Immature Gran # (Auto) 0.01 (0.00-0.02) K/uL Absolute Nucleated RBC 0.04 H (0-0) K/uL Nucleated RBC % (auto) 2.3 % Platelet Estimate SIGNIFIC DECREASED (Normal) Giant Platelets 2+ Polychromasia 1+ Hypochromasia Present Anisocytosis Present Microcytosis Present PT 11.4 (9.0-12.0) Seconds INR 1.1 (0.9-1.1) APTT 35.2 H (21.0-31.0) Seconds PTT Ratio 1.3 Sodium 141 (136-145) mmol/L Potassium 4.3 (3.5-5.1) mmol/L Chloride 112 H (98-107) mmol/L Carbon Dioxide 21 (21-32) mmol/L Anion Gap 8.0 (3-11) BUN 21 H (7-18) mg/dl Creatinine 1.29 H (0.6-1.2) mg/dl Est Cr Clr Drug Dosing 30.8 ml/min Est GFR ( Amer) 50.0 ml/min Est GFR (Non-Af Amer) 43.1 ml/min BUN/Creatinine Ratio 15.9 (10-20) Glucose 116 H (70-99) mg/dl Calcium 7.8 L (8.5-10.1) mg/dl Magnesium 2.2 (1.8-2.4) mg/dl Total Bilirubin 0.5 (0.2-1) mg/dl AST 10 L (15-37) U/L ALT 33 (12-78) U/L Alkaline Phosphatase 103 (45-117) U/L Troponin I < 0.015 (0-0.045) ng/ml Total Protein 7.2 (6.4-8.2) gm/dl Albumin 3.4 (3.4-5.0) gm/dl Globulin 3.8 (2.5-4.0) gm/dl Albumin/Globulin Ratio 0.9 (0.9-2) Urine Color Urine Appearance (Clear) Urine pH (4.5-7.5) Ur Specific Ward (1.000-1.030) Urine Protein (Negative) Urine Glucose (UA) (Negative) Urine Ketones (Negative) Urine Blood (Negative) Urine Nitrite (Negative) Urine Bilirubin (Negative) Urine Urobilinogen (Negative) Ur Leukocyte Esterase (Negative) Urine WBC (Auto) (0-5) /hpf Urine RBC (Auto) (0-4) /hpf U Hyaline Cast (Auto) (0-5) /lpf U Epithel Cells (Auto) (0-5) /lpf Urine Bacteria (Auto) (Negative) Urine Yeast SARS-CoV-2 (PCR) (Negative) 09/20/21 09/21/21 Range/Units 18:02 01:48 WBC (4.8-10.8) K/uL RBC (4.2-5.4) M/uL Hgb (12.0-16.0) g/dL Hct (37-47) % MCV (80-100) fL MCH (25-34) pg MCHC (32-36) g/dL RDW Std Deviation (36.4-46.3) fL RDW Coeff of Irasema (11.5-14.5) % Plt Count (130-400) K/uL Immature Gran % (Auto) % Neut % (Auto) % Lymph % (Auto) % [place] % (Auto) % Eos % (Auto) % Baso % (Auto) % Neut # (Auto) (1.4-6.5) K/uL Lymph # (Auto) (1.2-3.4) K/uL [place] # (Auto) (0.11-0.59) K/uL Eos # (Auto) (0-0.5) K/uL Baso # (Auto) (0-0.2) K/uL Immature Gran # (Auto) (0.00-0.02) K/uL Absolute Nucleated RBC (0-0) K/uL Nucleated RBC % (auto) % Platelet Estimate (Normal) Giant Platelets Polychromasia Hypochromasia Anisocytosis Microcytosis PT (9.0-12.0) Seconds INR (0.9-1.1) APTT (21.0-31.0) Seconds PTT Ratio Sodium (136-145) mmol/L Potassium (3.5-5.1) mmol/L Chloride (98-107) mmol/L Carbon Dioxide (21-32) mmol/L Anion Gap (3-11) BUN (7-18) mg/dl Creatinine (0.6-1.2) mg/dl Est Cr Clr Drug Dosing ml/min Est GFR ( Amer) ml/min Est GFR (Non-Af Amer) ml/min BUN/Creatinine Ratio (10-20) Glucose (70-99) mg/dl Calcium (8.5-10.1) mg/dl Magnesium (1.8-2.4) mg/dl Total Bilirubin (0.2-1) mg/dl AST (15-37) U/L ALT (12-78) U/L Alkaline Phosphatase (45-117) U/L Troponin I (0-0.045) ng/ml Total Protein (6.4-8.2) gm/dl Albumin (3.4-5.0) gm/dl Globulin (2.5-4.0) gm/dl Albumin/Globulin Ratio (0.9-2) Urine Color Dark Yellow Urine Appearance Cloudy A (Clear) Urine pH 5.5 (4.5-7.5) Ur Specific Ward 1.020 (1.000-1.030) Urine Protein 3+ H (Negative) Urine Glucose (UA) Negative (Negative) Urine Ketones Negative (Negative) Urine Blood 3+ H (Negative) Urine Nitrite Negative (Negative) Urine Bilirubin Negative (Negative) Urine Urobilinogen Negative (Negative) Ur Leukocyte Esterase 2+ H (Negative) Urine WBC (Auto) >30 H (0-5) /hpf Urine RBC (Auto) >30 H (0-4) /hpf U Hyaline Cast (Auto) 1-5 (0-5) /lpf U Epithel Cells (Auto) >30 H (0-5) /lpf Urine Bacteria (Auto) Negative (Negative) Urine Yeast Not Reportable SARS-CoV-2 (PCR) NEGATIVE (Negative) Administered Medications Acetaminophen (Acetaminophen 325 Mg Tab) 650 mg PO Q4H PRN PRN Reason: Pain or Fever Stop: 10/21/21 08:05 Last Admin: 09/21/21 15:14 Dose: 650 mg Documented by: [id number] Admin: 09/21/21 10:41 Dose: 650 mg Documented by: [id number] Acetaminophen (Acetaminophen 325 Mg Tab) 650 mg PO TODAY@0930 [facility] Stop: 09/22/21 23:59 Last Admin: 09/22/21 11:11 Dose: 650 mg Documented by: [id number] Acyclovir (Acyclovir 400 Mg Tab) 400 mg PO BID [facility] Stop: 10/21/21 08:59 Last Admin: 09/22/21 10:02 Dose: 400 mg Documented by: [id number] Admin: 09/21/21 22:29 Dose: 400 mg Documented by: [id number] Admin: 09/21/21 10:16 Dose: 400 mg Documented by: [id number] Clonazepam (Clonazepam 0.5 Mg Tab) 0.5 mg PO [facility] Stop: 10/21/21 20:59 Last Admin: 09/21/21 22:29 Dose: 0.5 mg Documented by: [id number] Diphenhydramine HCl (Diphenhydramine Capsule 25 Mg Cap) 25 mg PO TODAY@0930 [facility] Stop: 09/22/21 23:59 Last Admin: 09/22/21 11:12 Dose: 25 mg Documented by: [id number] Doxycycline Hyclate (Doxycycline Hyclate 100 Mg Cap) 100 mg PO Q24H [facility] Stop: 10/21/21 16:59 Last Admin: 09/22/21 17:50 Dose: 100 mg Documented by: [id number] Admin: 09/21/21 18:41 Dose: 100 mg Documented by: [id number] Fluticasone/Vilanterol (Fluticasone/Vilanterol 200/25mcg 14 Puffs/Inhaler) 1 puffs INH DAILY [facility]; Protocol Stop: 10/21/21 08:59 Last Admin: 09/22/21 10:03 Dose: 1 puffs Documented by: [id number] Admin: 09/21/21 10:18 Dose: 1 puffs Documented by: [id number] Gabapentin (Gabapentin 400 Mg Cap) 400 mg PO QAM [facility] Stop: 10/21/21 08:59 Last Admin: 09/22/21 10:04 Dose: 400 mg Documented by: [id number] Admin: 09/21/21 10:16 Dose: 400 mg Documented by: [id number] Linezolid (Zyvox) 600 mg in 300 mls @ 300 mls/hr IV Q12H [facility] Stop: 09/23/21 03:44 Last Infusion: 09/22/21 18:56 Dose: 0 mls/hr Documented by: [id number] Admin: 09/22/21 17:49 Dose: 300 mls/hr Documented by: [id number] Infusion: 09/22/21 06:09 Dose: 0 mls/hr Documented by: [id number] Admin: 09/22/21 04:56 Dose: 300 mls/hr Documented by: [id number] Infusion: 09/21/21 16:07 Dose: 0 mls/hr Documented by: [id number] Admin: 09/21/21 15:07 Dose: 300 mls/hr Documented by: [id number] Infusion: 09/21/21 06:31 Dose: 0 mls/hr Documented by: [id number] Admin: 09/21/21 05:13 Dose: 300 mls/hr Documented by: [id number] Aztreonam 2,000 mg/ Dextrose 110 mls @ 100 mls/hr IV Q8H [facility]; Protocol Stop: 09/23/21 09:59 Last Infusion: 09/22/21 19:57 Dose: 0 mls/hr Documented by: [id number] Admin: 09/22/21 17:51 Dose: 100 mls/hr Documented by: [id number] Infusion: 09/22/21 12:36 Dose: 0 mls/hr Documented by: [id number] Admin: 09/22/21 11:28 Dose: 100 mls/hr Documented by: [id number] Infusion: 09/22/21 04:51 Dose: 0 mls/hr Documented by: [id number] Admin: 09/22/21 03:34 Dose: 100 mls/hr Documented by: [id number] Infusion: 09/21/21 20:02 Dose: 0 mls/hr Documented by: [id number] Admin: 09/21/21 18:41 Dose: 100 mls/hr Documented by: [id number] Infusion: 09/21/21 11:24 Dose: 0 mls/hr Documented by: [id number] Admin: 09/21/21 10:18 Dose: 100 mls/hr Documented by: [id number] Methocarbamol (Methocarbamol 750 Mg Tablet) 750 mg PO BID PRN PRN Reason: Pain Stop: 10/22/21 00:18 Last Admin: 09/22/21 10:06 Dose: 750 mg Documented by: [id number] Mirabegron (Mirabegron Er 25 Mg Tab) 50 mg PO HS [facility] Stop: 10/21/21 20:59 Last Admin: 09/21/21 22:29 Dose: 50 mg Documented by: [id number] Oxybutynin Chloride (Oxybutynin Chloride Xl 5 Mg Tabcr) 10 mg PO QAM [facility] Stop: 10/21/21 08:59 Last Admin: 09/22/21 10:05 Dose: 10 mg Documented by: [id number] Admin: 09/21/21 10:16 Dose: 10 mg Documented by: [id number] Oxycodone HCl (Oxycodone Hcl Ir 5 Mg Tab (Immediate Release)) 5 mg PO Q4H PRN PRN Reason: pain Stop: 10/05/21 08:05 Last Admin: 09/22/21 14:45 Dose: 5 mg Documented by: [id number] Admin: 09/22/21 10:02 Dose: 5 mg Documented by: [id number] Admin: 09/21/21 20:05 Dose: 5 mg Documented by: [id number] Admin: 09/21/21 15:12 Dose: 5 mg Documented by: [id number] Admin: 09/21/21 10:19 Dose: 5 mg Documented by: [id number] Quetiapine Fumarate (Quetiapine Fumarate 25 Mg Tablet) 50 mg PO HS [facility] Stop: 10/21/21 20:59 Last Admin: 09/21/21 22:29 Dose: 50 mg Documented by: [id number] Raspberry (Raspberry Syrup 5 Ml Udp) 5 ml PO DAILY [facility] Stop: 10/02/21 16:14 Last Admin: 09/22/21 18:34 Dose: 5 ml Documented by: [id number] Saccharomyces Boulardii (Saccharomyces Boulardii 250 Mg Cap) 250 mg PO DAILY [facility] Stop: 10/22/21 16:14 Last Admin: 09/22/21 18:34 Dose: 250 mg Documented by: [id number] Topiramate (Topiramate 100 Mg Tab) 100 mg PO QAM [facility] Stop: 10/21/21 08:59 Last Admin: 09/22/21 10:06 Dose: 100 mg Documented by: [id number] Admin: 09/21/21 10:17 Dose: 100 mg Documented by: [id number] Topiramate (Topiramate 100 Mg Tab) 200 mg PO PM [facility] Stop: 10/21/21 20:59 Last Admin: 09/21/21 22:29 Dose: 200 mg Documented by: [id number] Vancomycin HCl (Vancomycin Hcl 125 Mg/2.5ml Soln) 125 mg PO DAILY [facility] Stop: 10/22/21 16:14 Last Admin: 09/22/21 18:34 Dose: 125 mg Documented by: [id number] Discontinued Medications Diphenhydramine HCl (Diphenhydramine 50 Mg/Ml Vial) 25 mg IV NOW STA Stop: 09/21/21 02:53 Last Admin: 09/21/21 03:06 Dose: 25 mg Documented by: [id number] Diphenhydramine HCl (Diphenhydramine 50 Mg/Ml Vial) 25 mg IV NOW STA Stop: 09/21/21 04:40 Last Admin: 09/21/21 05:14 Dose: 25 mg Documented by: [id number] Doxycycline Hyclate (Doxycycline Hyclate 100 Mg Cap) 100 mg PO QAM [facility] Stop: 10/21/21 08:59 Last Admin: 09/21/21 11:53 Dose: Not Given Documented by: [id number] Cefepime HCl (Maxipime) 2,000 mg in 20 mls @ 5 mls/min IV NOW STA; Protocol Stop: 09/21/21 01:47 Last Admin: 09/21/21 02:14 Dose: 5 mls/min Documented by: [id number] Sodium Chloride (Nss 1000ml) 1,000 mls @ 999 mls/hr IV .Q1H1M ONE Stop: 09/21/21 03:54 Last Infusion: 09/21/21 04:23 Dose: 0 mls/hr Documented by: [id number] Admin: 09/21/21 03:07 Dose: 999 mls/hr Documented by: [id number] Lactated Ringer's (Lr) 1,000 mls @ 80 mls/hr IV .[id number] [facility] Stop: 09/21/21 20:35 Last Infusion: 09/22/21 00:17 Dose: 0 mls/hr Documented by: [id number] Admin: 09/21/21 08:42 Dose: 80 mls/hr Documented by: [id number] Calcium Gluconate 1,000 mg/ (Sodium Chloride) 60 mls @ 240 mls/hr IV NOW ONE Stop: 09/22/21 09:44 Last Infusion: 09/22/21 13:13 Dose: 0 mls/hr Documented by: [id number] Admin: 09/22/21 11:28 Dose: 240 mls/hr Documented by: [id number] Menthol (Cough Drop (Sugar Free) Laura 24 Laura/1 Box) 1 laura BUCCAL NOW STA Stop: 09/22/21 17:53 Last Admin: 09/22/21 18:56 Dose: 1 laura Documented by: [id number] Morphine Sulfate (Morphine Sulfate 2 Mg/Ml Carp) 2 mg IV NOW STA Stop: 09/21/21 02:55 Last Admin: 09/21/21 03:06 Dose: 2 mg Documented by: [id number] Ondansetron HCl (Ondansetron Inj 2 Mg/Ml 2 Ml Vial) 4 mg IV NOW STA Stop: 09/21/21 02:53 Last Admin: 09/21/21 03:06 Dose: 4 mg Documented by: [id number] Imaging Data Radiologist's Impression: Chest X-Ray 09/20/21 17:28 XR chest 2V PA/lateral HISTORY: Sepsis COMPARISON: Chest 08/09/2021. FINDINGS: No pneumothorax. No pleural effusions. The lungs are hyperexpanded with mild apical predominant emphysematous changes. Chronic opacification within the medial base of the right lower lobe is again noted. No new focal lung consolidations. No evidence for pulmonary edema. Bilateral anterior rib densities remain stable. Partially visualized left ureteral stent. IMPRESSION: No significant change compared to the prior study. No acute process. Chronic right medial lung base density likely represents scarring. ACT 112: Negative or not required by law. Electronically signed by: Jimi Bangura M.D. 09/20/2021 6:27 PM Blood Pressure Blood Pressure Findings: Low blood pressure Blood Pressure Disposition: further management by hospitalist Discharge Plan Visit Data Chief Complaint: Fever Stated Complaint: FEVER,RUNNY NOSE, MDS, NUEROPENIC FEVER ED Provider: Muna Bazzi Discharge Problem: Neutropenic fever, Myelodysplastic disease Patient Disposition: Admitted As Inpatient Discharge Instructions Interventions: ED Discharge Assessment Last Done: 09/21/21 07:43
[2021-09-22 20:46] LABS: Appearance Urine Cloudy (Clear); Bacteria Urine Automated Negative (Negative); Bilirubin Urine Negative (Negative); Blood Urine 2+ (Negative); Color Urine Yellow; Glucose Urine UA Negative (Negative); Ketones Urine Negative (Negative); Leukocyte Esterase Urine 2+ (Negative); Nitrite Urine Negative (Negative); Protein Urine 2+ (Negative); Specific Gravity Urine 1.009 (1.000-1.030); Urobilinogen Urine Negative (Negative); WBC Urine Automated >30 /hpf (0-5)
[2021-09-22] MEDS ORDERED: FILGRASTIM 480 MCG/1.6 ML VIAL SC ONE (22:00)
[2021-09-22] MEDS ORDERED: CASPOFUNGIN 70 MG in SODIUM CHLORIDE 0.9% 250 ML IV ONE (22:00)
[2021-09-22] MEDS: clonazePAM 0.5 MG TAB PO SCH (23:03)
[2021-09-22] MEDS: MIRABEGRON ER 25 MG TAB PO SCH (23:06)
[2021-09-22] MEDS: QUEtiapine FUMARATE 25 MG TABLET PO SCH (23:07)
[2021-09-23] MEDS: AZTREONAM 2,000 MG in DEXTROSE 5% 100 ML IV SCH (02:48)
[2021-09-23] MEDS ORDERED: diphenhydrAMINE Capsule 25 MG CAP ONE ×3 (02:56→21:25)
[2021-09-23] MEDS ORDERED: diphenhydrAMINE Capsule 25 MG CAP PO ONE ×2 (08:00→15:24)
[2021-09-23] MEDS ORDERED: ACETAMINOPHEN 325 MG TAB PO ONE ×2 (08:01→15:24)
[2021-09-23] MEDS: SACCHAROMYCES BOULARDII 250 MG CAP PO SCH (09:09)
[2021-09-23] MEDS: VANCOMYCIN HCL 125 MG/2.5ML SOLN PO SCH (09:09)
[2021-09-23] MEDS: RASPBERRY SYRUP 5 ML UDP PO SCH (09:09)
[2021-09-23] MEDS: oxyCODONE HCL IR 5 MG TAB (IMMEDIATE RELEASE) PO PRN ×4 (09:09→23:33)
[2021-09-23] MEDS: TOPIRAMATE 100 MG TAB PO SCH ×2 (09:10→23:29)
[2021-09-23] MEDS: OXYBUTYNIN CHLORIDE XL 5 MG TABCR PO SCH (09:10)
[2021-09-23] MEDS: METHOCARBAMOL 750 MG TABLET PO PRN ×2 (09:10→23:29)
[2021-09-23] MEDS: FLUTICASONE/VILANTEROL 200/25MCG 14 PUFFS/INHALER INH SCH (09:11)
[2021-09-23] MEDS: GABAPENTIN 400 MG CAP PO SCH (09:11)
[2021-09-23] MEDS: ACYCLOVIR 400 MG TAB PO SCH ×2 (09:11→23:30)
[2021-09-23 13:04] LABS: Hematocrit (blood only) 29.6 % (37-47); Hemoglobin 9.7 g/dL (12.0-16.0); Mean Corpuscular Hemoglobin 27.2 pg (25-34); Mean Corpuscular Hgb Conc 32.8 g/dL (32-36); Mean Corpuscular Volume 83.1 fL (80-100); Nucleated RBC # (auto) 0.08 K/uL (0-0); Nucleated RBC % (auto) 3.1 %; Platelet Count 14 K/uL (130-400); RDW Coefficient of Variation 16.3 % (11.5-14.5); RDW Standard Deviation 48.9 fL (36.4-46.3); Red Blood Count 3.56 M/uL (4.2-5.4); White Blood Count 2.47 K/uL (4.8-10.8)
[2021-09-23 13:05] LABS: ALC (manual) 0.71 K/uL (1.2-3.4); ANC (manual) 1.31 K/uL (1.4-6.5); Blast # (manual) 0.06 K/uL (0-0); Blast Cells % (manual) 2.6 %; Eosinophils # (manual) 0.02 K/uL (0-0.5); Eosinophils % (manual) 0.9 %; Lymphocytes # (manual) 0.71 K/uL (1.2-3.4); Lymphocytes % (manual) 28.7 %; Monocytes # (manual) 0.37 K/uL (0.11-0.59); Monocytes % (manual) 14.8 %; Neutrophils # (manual) 1.31 K/uL (1.4-6.5); Platelet Estimate SIGNIFIC DECREASED (Normal); Poikilocytosis Present
[2021-09-23 13:23] LABS: Albumin Level 2.7 gm/dl (3.4-5.0); BUN Creatinine Ratio 23.1 (10-20); Calcium 7.4 mg/dl (8.5-10.1); Creatinine Clr Calc Pharmacy 45.8 ml/min; Est GFR (African American) 77.2 ml/min; Est GFR (Non-African American) 66.6 ml/min; Magnesium 2.1 mg/dl (1.8-2.4); Potassium 3.6 mmol/L (3.5-5.1)
[2021-09-23 13:28] LABS: Albumin Globulin Ratio 0.8 (0.9-2); Bilirubin,Total 1.1 mg/dl (0.2-1); Globulin 3.5 gm/dl (2.5-4.0); Total Protein 6.2 gm/dl (6.4-8.2)
--- NOTE | 2021-09-23 15:36 | Hospitalist Progress Note ---
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 Patient had reached out to her oncologists office in regards to her symptoms and fevers and was urged to come to the ED for evaluation as her last ANC was 660. Covid-19 -, flu A/B also negative *Possible sepsisin immunocompromised patient of unknown origin e/b +3/4 SIRS criteria and SOFA score of 5 Neutropenic Fever -Last chemo in July per patient-has only received 1 dose of 5-azacitidine so far and has had persistent pancytopenia since then related to her MDS and chemo -Patient with fever of 100.8F at home and has had several recurrences of neutropenic fever over the last 2 months -Remains neutropenic today although ANC increasing, but afebrile since the morning of 09/21 -Empirically covered with Aztreonam and Linezolid due to allergies-blood cultures no growth to date-discontinue these antibiotics -Patient does note history of urine related infections secondary to her urinary stents -Urine culture now growing Rachelle glabrata -Given that she is having neutropenic fever and has indwelling ureteral stents-I feel that she should be treated with IV caspofungin in case of fungemia and fu ngiuria -Startied IV caspofungin 09/22 -Consult infectious disease for further opinion-to have consultation today -Neutropenic precautions -Continue prophylactic home Doxycycline and Acyclovir (2) Acute UTI (urinary tract infection): Plan: With bilateral indwelling ureteral stents With neutropenic fever as above Growing yeast in the urine-she has grown Rachelle not albicans and Rachelle glabrata in the past-I cannot tell that she is ever been treated for this previously Blood cultures without yeast so far -Started caspofungin 70 mg IV x1 now and then 50 mg IV once daily after that Consult ID for further recommendations (3) Pancytopenia: Plan: *Chemotherapy induced pancytopenia Hemoglobin was down to 6.6 and transfused 2 units PRBCs on 09/23 Unfortunately she has developed antibodies in her blood- blood products have to come from [place] [facility] Platelets down to 14 today-transfuse 1 pack of platelets Follow CBC in the morning -received Neupogen 480 SQ on 09/22 (4) Myelodysplasia (myelodysplastic syndrome): Plan: *immunocompromised patient in patient with MDS under going Chemo Secondary myelodysplasia due to previous treatment for lymphoma Currently undergoing chemotherapy with 5azacitidine which is caused her significant pancytopenia as above (5) Hx of Clostridium difficile infection: Plan: With a history of C. difficile at least once or twice in the past Typically takes vancomycin twice a week While on antibiotics, start vancomycin 125 mg p.o. once daily Monitor for development of diarrhea (6) S/P ureteral stent placement: Plan: With bilateral indwelling ureteral stents for chronic hydronephrosis Last exchanged in the beginning of May Is overdue for an exchange but has been unable to get it done due to severe pancytopenia -Follow-up with urology once blood counts are improved (7) COPD (chronic obstructive pulmonary disease): Plan: -Continue albuterol PRN -Continue home Symbicort (8) Chronic kidney disease, stage III (moderate): Plan: Stable -Avoid nephrotoxins -renally dose meds when appropriate -follow BMP (9) Prothrombin [id number] mutation: Plan: Previously on Lovenox lifelong, but has been held due to significant thrombocytopenia (10) Hypocalcemia: Plan: replaced and resolved (11) Obstructive sleep apnea: Plan: Continue supplemental O2 at bedtime (12) Migraine: Plan: -Continue home Topamax for prophylaxis (13) Urge and stress incontinence: Plan: Continue Myrbetriq and oxybutynin (14) Depression: Plan: With anxiety -Continue home clonazepam -Continue home Seroquel -holding home Zoloft due to interaction with linezolid--can restart in 1 week Plan: DVT prophylaxis-add HOMAR hose, avoid SCDs due to thrombocytopenia and risk of trauma. Avoid anticoagulation otherwise due to severe thrombocytopenia and anemia Disposition-continued stay but downgrade to med/surg Admission and Anticipated Discharge Date Admission Date: September 21, 2021 Subjective Feels a little better after getting 2 units of blood last night into this AM. Moving bowels a few times today, no diarrhea, less abd bloating. Some ANTON, no CP. Tele with NSR and ST rates 70s-110s Review of Systems Review of Systems: All systems reviewed & are unremarkable except as noted in HPI & below Physical Exam Constitutional: WD/WN, vitals as above Neck: trachea midline, no thyromegaly Respiratory: normal respiratory effort, lungs clear to auscultation Cardiovascular: RRR, no murmur, no edema Chest (Breasts): Chest: normal inspection of chest Gastrointestinal (Abdomen): normal bowel sounds, soft, nontender, no hepatosplenomegaly Musculoskeletal: Extremities: extremities normal to inspection; no cyanosis and no clubbing Skin: no rashes, warm and dry Neurologic: moves all extremities and awake; no focal motor deficits Psychiatric: A+Ox3, euthymic affect Lymphatic: no lymphedema Results & Data Results & Data ([facility]) Vital Signs (Past 12 Hours) Vital Signs Temp Pulse Pulse Resp BP BP Pulse Ox 09/23/21 15:18 89 09/23/21 12:25 36.3 C L 90 16 118/70 100 09/23/21 10:40 36.5 C 85 16 112/51 L 97 09/23/21 09:40 36.6 C 99 H 16 94/57 L 100 09/23/21 09:10 36.4 C L 87 16 110/51 L 98 09/23/21 08:40 36.3 C L 86 16 96/53 L 99 09/23/21 08:22 36.7 C 89 18 107/67 97 09/23/21 08:00 36.6 C 88 16 110/71 96 09/23/21 07:45 95 H 09/23/21 07:11 36.4 C L 93 H 20 112/57 L 98 09/23/21 06:52 36.4 C L 79 18 100/64 98 09/23/21 05:20 36.7 C 76 20 104/64 98 09/23/21 04:20 36.4 C L 89 20 92/55 L 98 09/23/21 03:50 36.5 C 95 H 20 88/52 L 97 Laboratory Results 09/23/21 12:27 09/23/21 12:27 PG Care Time/CCT Total # of Minutes Spent Total Time Spent with Patient: Total time spent is greater than 50% in coordination of care (as documented) at patient's floor/unit and/or counseling patient: Coding Level of Care Code 36934 Subseq Hosp Care Lvl 3 Diagnoses Neutropenic fever D70.9; R50.81 Acute UTI (urinary tract infection) N39.0 Pancytopenia D61.818 Myelodysplasia (myelodysplastic syndrome) D46.9 Hx of Clostridium difficile infection Z86.19 S/P ureteral stent placement Z96.0 COPD (chronic obstructive pulmonary disease) J44.9 Chronic kidney disease, stage III (moderate) N18.30 Chronic kidney disease stage 3 subtype: unspecified whether 3a or 3b Prothrombin [id number] mutation D68.52 Hypocalcemia E83.51 Obstructive sleep apnea G47.33 Migraine G43.909 Urge and stress incontinence N39.46 Depression F32.9 (1) Chronic kidney disease, stage III (moderate) Chronic kidney disease stage 3 subtype: unspecified whether 3a or 3b Qualified Code(s): N18.30 - Chronic kidney disease, stage 3 unspecified
[2021-09-23] MEDS: DOXYCYCLINE HYCLATE 100 MG CAP PO SCH (16:32)
[2021-09-23] MEDS: ONDANSETRON INJ 2 MG/ML 2 ML VIAL IV PRN (17:51)
[2021-09-23] MEDS: POTASSIUM CHLORIDE CRTAB 20 MEQ TABCR PO SCH (18:44)
[2021-09-23] MEDS ORDERED: PHENAZOPYRIDINE HCL 200 MG TAB PO PRN (21:15)
[2021-09-23] MEDS: CASPOFUNGIN 50 MG in SODIUM CHLORIDE 0.9% 250 ML IV SCH (21:30)
[2021-09-23] MEDS: clonazePAM 0.5 MG TAB PO SCH (23:28)
[2021-09-23] MEDS: PHENAZOPYRIDINE HCL 200 MG TAB PO PRN (23:28)
[2021-09-23] MEDS: QUEtiapine FUMARATE 25 MG TABLET PO SCH (23:30)
[2021-09-23] MEDS: MIRABEGRON ER 25 MG TAB PO SCH (23:31)
[2021-09-24 07:07] LABS: Albumin Level 2.6 gm/dl (3.4-5.0); BUN Creatinine Ratio 23.7 (10-20); Calcium 6.7 mg/dl (8.5-10.1); Creatinine Clr Calc Pharmacy 55.7 ml/min; Est GFR (African American) 97.8 ml/min; Est GFR (Non-African American) 84.4 ml/min; Magnesium 2.1 mg/dl (1.8-2.4); Potassium 3.7 mmol/L (3.5-5.1)
[2021-09-24 07:09] LABS: Mean Corpuscular Hgb Conc 32.9 g/dL (32-36); Nucleated RBC # (auto) 0.04 K/uL (0-0); Nucleated RBC % (auto) 1.9 %; Platelet Count 13 K/uL (130-400)
[2021-09-24 07:10] LABS: ALC (manual) 0.47 K/uL (1.2-3.4); ANC (manual) 1.27 K/uL (1.4-6.5); Albumin Globulin Ratio 0.8 (0.9-2); Basophils # (manual) 0.04 K/uL (0-0.2); Basophils % (manual) 1.8 %; Bilirubin,Total 0.8 mg/dl (0.2-1); Blast # (manual) 0.06 K/uL (0-0); Blast Cells % (manual) 2.7 %; Eosinophils # (manual) 0.04 K/uL (0-0.5); Eosinophils % (manual) 1.8 %; Globulin 3.2 gm/dl (2.5-4.0); Hematocrit (blood only) 28.3 % (37-47); Hemoglobin 9.3 g/dL (12.0-16.0); Lymphocytes # (manual) 0.47 K/uL (1.2-3.4); Lymphocytes % (manual) 22.1 %; Mean Corpuscular Hemoglobin 27.6 pg (25-34); Monocytes # (manual) 0.25 K/uL (0.11-0.59); Monocytes % (manual) 11.5 %; Myelocytes # (manual) 0.02 K/uL (0-0); Myelocytes % (manual) 0.9 %; Neutrophils # (manual) 1.27 K/uL (1.4-6.5); Neutrophils % (manual) 59.2 %; Platelet Estimate SIGNIFIC DECREASED (Normal); Poikilocytosis Present; RDW Coefficient of Variation 16.9 % (11.5-14.5); RDW Standard Deviation 50.9 fL (36.4-46.3); Red Blood Count 3.37 M/uL (4.2-5.4); Total Protein 5.8 gm/dl (6.4-8.2); White Blood Count 2.14 K/uL (4.8-10.8)
[2021-09-24] MEDS: FLUTICASONE/VILANTEROL 200/25MCG 14 PUFFS/INHALER INH SCH (09:32)
[2021-09-24] MEDS: ACYCLOVIR 400 MG TAB PO SCH ×2 (09:32→23:05)
[2021-09-24] MEDS: OXYBUTYNIN CHLORIDE XL 5 MG TABCR PO SCH (09:33)
[2021-09-24] MEDS: MULTIVITAMIN TAB PO SCH (09:33)
[2021-09-24] MEDS: GABAPENTIN 400 MG CAP PO SCH (09:33)
[2021-09-24] MEDS: RASPBERRY SYRUP 5 ML UDP PO SCH (09:34)
[2021-09-24] MEDS: TOPIRAMATE 100 MG TAB PO SCH ×2 (09:35→23:06)
[2021-09-24] MEDS: SACCHAROMYCES BOULARDII 250 MG CAP PO SCH (09:35)
[2021-09-24] MEDS: METHOCARBAMOL 750 MG TABLET PO PRN ×2 (09:36→23:02)
[2021-09-24] MEDS: POTASSIUM CHLORIDE CRTAB 20 MEQ TABCR PO SCH (09:40)
[2021-09-24] MEDS: oxyCODONE HCL IR 5 MG TAB (IMMEDIATE RELEASE) PO PRN ×4 (09:40→23:02)
[2021-09-24] MEDS: VANCOMYCIN HCL 125 MG/2.5ML SOLN PO SCH (09:42)
[2021-09-24] MEDS: PHENAZOPYRIDINE HCL 200 MG TAB PO PRN ×2 (11:42→21:53)
--- NOTE | 2021-09-24 16:08 | Hospitalist Progress Note ---
Date of Service September 24, 2021 Assessment & Plan (1) Neutropenic fever: Plan: Patient is a 66 year old female with PMHx Myelodysplastic syndrome on chemotherapy, SACHA, urge and stress incontinence, COPD emphysema, Squamous Cell Lung cancer, lymphoma, prothrombin [id number] Factor 2 mutation, Celiac disease, CVA, that presents with concerns of sore throat, runny nose, and a fever of 100.8F at home. Patient had reached out to her oncologists office in regards to her symptoms and fevers and was urged to come to the ED for evaluation as her last ANC was 660. Covid-19 -, flu A/B also negative *Possible sepsisin immunocompromised patient of unknown origin now felt to be neutropenic fever, Rachelle UTI, all blood cultures show no growth and no fever for 3 days Neutropenic Fever -Last chemo in July per patient-has only received 1 dose of 5-azacitidine so far and has had persistent pancytopenia since then related to her MDS and chemo no longer neutropenic, no fever for three days initially on Aztreonam and Linezolid, stopped since blood cultures clean -Patient does note history of urine related infections secondary to her urinary stents -Urine culture now growing Rachelle glabrata - indwelling ureteral stents since May 2021, due to come out -Started IV caspofungin 09/22 -Consult infectious disease for further opinion, likely won't happen until Sunday -Neutropenic precautions -Continue prophylactic home Doxycycline and Acyclovir (2) Acute UTI (urinary tract infection): Plan: With bilateral indwelling ureteral stents Growing yeast in the urine-she has grown Rachelle not albicans and Rachelle glabrata in the past Blood cultures without yeast -continue caspofungin 50 mg IV once daily Consult ID for further recommendations (3) Pancytopenia: Plan: *Chemotherapy induced pancytopenia Hemoglobin was down to 6.6 and transfused 2 units PRBCs on 09/23 Unfortunately she has developed antibodies in her blood- blood products have to come from [place] [facility] Hb is > 9, platelets are low at 13k, no bleeding or bruising, repeat tomorrow, if still low give 2 units of platelets -received Neupogen 480 SQ on 09/22 (4) Myelodysplasia (myelodysplastic syndrome): Plan: *immunocompromised patient in patient with MDS under going Chemo Secondary myelodysplasia due to previous treatment for lymphoma Currently undergoing chemotherapy with 5azacitidine which is caused her significant pancytopenia as above (5) Hx of Clostridium difficile infection: Plan: With a history of C. difficile at least once or twice in the past Typically takes vancomycin twice a week While on antibiotics, start vancomycin 125 mg p.o. once daily Monitor for development of diarrhea (6) S/P ureteral stent placement: Plan: With bilateral indwelling ureteral stents for chronic hydronephrosis Last exchanged in the beginning of May Is overdue for an exchange but has been unable to get it done due to severe pancytopenia -Follow-up with urology will consult them if ID feels stents need to come out (7) COPD (chronic obstructive pulmonary disease): Plan: -Continue albuterol PRN -Continue home Symbicort (8) Chronic kidney disease, stage III (moderate): Plan: Stable -Avoid nephrotoxins -renally dose meds when appropriate -follow BMP (9) Prothrombin [id number] mutation: Plan: Previously on Lovenox lifelong, but has been held due to significant thrombocytopenia (10) Hypocalcemia: Plan: replaced and resolved (11) Obstructive sleep apnea: Plan: Continue supplemental O2 at bedtime (12) Migraine: Plan: -Continue home Topamax for prophylaxis (13) Urge and stress incontinence: Plan: Continue Myrbetriq and oxybutynin (14) Depression: Plan: With anxiety -Continue home clonazepam -Continue home Seroquel -holding home Zoloft due to interaction with linezolid--can restart in 1 week Plan: DVT prophylaxis-add HOMAR hose, avoid SCDs due to thrombocytopenia and risk of trauma. Avoid anticoagulation otherwise due to severe thrombocytopenia and anemia Disposition- await ID consult Admission and Anticipated Discharge Date Admission Date: September 21, 2021 Subjective patient is feeling well, no fever, breathing comfortably, no cough says she had some difficulty swallowing food last night, did better with breakfast discussed that we are waiting on ID consult, she understands she says her ureteral stents were placed 4 months ago, overdue to come out Review of Systems Review of Systems: All systems reviewed & are unremarkable except as noted in Subjective Physical Exam Physical Exam: General: well developed, thin female, no acute distress, comfortable Neck: supple, trachea midline, normal thyroid Lungs: clear to auscultation bilaterally, normal respiratory effort, no accessory muscle use, no distress Heart: regular S1 and S2, no murmur, peripheral pulses normal, capillary refill normal, no edema Abdomen: soft, NT, ND, + BS, no hepatomegaly, normal to percussion Extremities: muscle atrophy, no cyanosis, no petechiae, strength is 5/5 bilaterally Neuro: awake, cooperative, moves all extremities, no focal motor deficits, CN II-XII intact, sensation in extremities intact, normal speech Skin: warm, dry, no rash, normal turgor Psych: Awake, alert oriented x 3, euthymic affect Results & Data Results & Data ([facility]) Vital Signs (Past 12 Hours) Vital Signs Temp Pulse Resp BP Pulse Ox 09/24/21 06:59 36.5 C 83 16 102/66 100 Laboratory Results Laboratory Results - last 24 hr 09/22/21 09/24/21 09/24/21 09:22 06:09 06:09 WBC 2.14 L RBC 3.37 L Hgb 9.3 L Hct 28.3 L MCV 84.0 MCH 27.6 MCHC 32.9 RDW Std Deviation 50.9 H RDW Coeff of Irasema 16.9 H Plt Count 13 L* Absolute Nucleated RBC 0.04 H Nucleated RBC % (auto) 1.9 Neutrophils % (Manual) 59.2 Lymphocytes % (Manual) 22.1 Monocytes % (Manual) 11.5 Eosinophils % (Manual) 1.8 Basophils % (Manual) 1.8 Myelocytes % (Man) 0.9 Blast Cells % (Manual) 2.7 Neutrophils # (Manual) 1.27 L Total Absolute Neuts 1.27 L Lymphocytes # (Manual) 0.47 L Total Abs Lymphocytes 0.47 L Monocytes # (Manual) 0.25 Eosinophils # (Manual) 0.04 Basophils # (Manual) 0.04 Myelocytes # (Manual) 0.02 H Blast Cells # (Man) 0.06 H Platelet Estimate SIGNIFIC DECREASED Poikilocytosis Present Sodium 143 Potassium 3.7 Chloride 115 H Carbon Dioxide 20 L Anion Gap 8.0 BUN 18 Creatinine 0.74 Est Cr Clr Drug Dosing 55.7 Est GFR ( Amer) 97.8 Est GFR (Non-Af Amer) 84.4 BUN/Creatinine Ratio 23.7 H Glucose 97 Calcium 6.7 L Magnesium 2.1 Total Bilirubin 0.8 AST 8 L ALT 22 Alkaline Phosphatase 70 Total Protein 5.8 L Albumin 2.6 L Globulin 3.2 Albumin/Globulin Ratio 0.8 L Blood Type B Positive Antibody Screen POSITIVE A Antibody Identification Auto [place] Agglutinin Antibody ID Comment Cancelled Crossmatch See Detail Medications Administered Current Inpatient Medications Acetaminophen (Acetaminophen 325 Mg Tab) 650 mg PO Q4H PRN PRN Reason: Pain or Fever Stop: 10/21/21 08:05 Last Admin: 09/21/21 15:14 Dose: 650 mg Documented by: Acyclovir (Acyclovir 400 Mg Tab) 400 mg PO BID BIRDIE Stop: 10/21/21 08:59 Last Admin: 09/24/21 09:32 Dose: 400 mg Documented by: Albuterol (Albuterol Hfa 8 Gm Inhaler) 2 puffs INH QID PRN PRN Reason: Wheezing Stop: 10/21/21 08:34 Clonazepam (Clonazepam 0.5 Mg Tab) 0.5 mg PO [facility] Stop: 10/21/21 20:59 Last Admin: 09/23/21 23:28 Dose: 0.5 mg Documented by: Doxycycline Hyclate (Doxycycline Hyclate 100 Mg Cap) 100 mg PO Q24H BIRDIE Stop: 10/21/21 16:59 Last Admin: 09/24/21 17:03 Dose: 100 mg Documented by: Fluticasone/Vilanterol (Fluticasone/Vilanterol 200/25mcg 14 Puffs/Inhaler) 1 puffs INH DAILY BIRDIE; Protocol Stop: 10/21/21 08:59 Last Admin: 09/24/21 09:32 Dose: 1 puffs Documented by: Gabapentin (Gabapentin 400 Mg Cap) 400 mg PO QAM BIRDIE Stop: 10/21/21 08:59 Last Admin: 09/24/21 09:33 Dose: 400 mg Documented by: Caspofungin 50 mg/ Sodium (Chloride) 260 mls @ 250 mls/hr IV BIRDIE Stop: 10/23/21 20:59 Last Infusion: 09/23/21 23:03 Dose: Infused Documented by: Methocarbamol (Methocarbamol 750 Mg Tablet) 750 mg PO BID PRN PRN Reason: Pain Stop: 10/22/21 00:18 Last Admin: 09/24/21 09:36 Dose: 750 mg Documented by: Mirabegron (Mirabegron Er 25 Mg Tab) 50 mg PO HS BIRDIE Stop: 10/21/21 20:59 Last Admin: 09/23/21 23:31 Dose: 50 mg Documented by: Multivitamins (Multivitamin Tab) 1 tab PO QAM [facility] Stop: 10/24/21 08:59 Last Admin: 09/24/21 09:33 Dose: 1 tab Documented by: Ondansetron HCl (Ondansetron Inj 2 Mg/Ml 2 Ml Vial) 4 mg IV Q6H PRN PRN Reason: Nausea Stop: 10/21/21 08:05 Last Admin: 09/23/21 17:51 Dose: 4 mg Documented by: Oxybutynin Chloride (Oxybutynin Chloride Xl 5 Mg Tabcr) 10 mg PO QAM [facility] Stop: 10/21/21 08:59 Last Admin: 09/24/21 09:33 Dose: 10 mg Documented by: Oxycodone HCl (Oxycodone Hcl Ir 5 Mg Tab (Immediate Release)) 5 mg PO Q4H PRN PRN Reason: pain Stop: 10/05/21 08:05 Last Admin: 09/24/21 18:12 Dose: 5 mg Documented by: Phenazopyridine HCl (Phenazopyridine Hcl 200 Mg Tab) 200 mg PO TID PRN PRN Reason: Bladder pain Stop: 10/23/21 21:14 Last Admin: 09/24/21 11:42 Dose: 200 mg Documented by: Potassium Chloride (Potassium Chloride Crtab 20 Meq Tabcr) [facility] me[facility] [place] Stop: 10/23/21 18:28 Last Admin: 09/24/21 09:40 Dose: 20 meq Documented by: Quetiapine Fumarate (Quetiapine Fumarate 25 Mg Tablet) 50 mg PO [facility] Stop: 10/21/21 20:59 Last Admin: 09/23/21 23:30 Dose: 50 mg Documented by: Raspberry (Raspberry Syrup 5 Ml Udp) 5 ml PO DAILY [facility] Stop: 10/02/21 16:14 Last Admin: 09/24/21 09:34 Dose: 5 ml Documented by: Saccharomyces Boulardii (Saccharomyces Boulardii 250 Mg Cap) 250 mg PO DAILY [facility] Stop: 10/22/21 16:14 Last Admin: 09/24/21 09:35 Dose: 250 mg Documented by: Topiramate (Topiramate 100 Mg Tab) [facility] [place] Stop: 10/21/21 08:59 Last Admin: 09/24/21 09:35 Dose: 100 mg Documented by: Topiramate (Topiramate 100 Mg Tab) 200 mg PO PM BIRDIE Stop: 10/21/21 20:59 Last Admin: 09/23/21 23:29 Dose: 200 mg Documented by: Vancomycin HCl (Vancomycin Hcl 125 Mg/2.5ml Soln) 125 mg PO DAILY BIRDIE Stop: 10/22/21 16:14 Last Admin: 09/24/21 09:42 Dose: 125 mg Documented by: PG Care Time/CCT Total # of Minutes Spent Total Time Spent with Patient: Total time spent is greater than 50% in coordination of care (as documented) at patient's floor/unit and/or counseling patient: Coding Level of Care Code 89972 Subseq Hosp Care Lvl 2 Diagnoses Neutropenic fever D70.9; R50.81 Acute UTI (urinary tract infection) N39.0 Pancytopenia D61.818 Myelodysplasia (myelodysplastic syndrome) D46.9 Hx of Clostridium difficile infection Z86.19 S/P ureteral stent placement Z96.0 COPD (chronic obstructive pulmonary disease) J44.9 Chronic kidney disease, stage III (moderate) N18.30 Chronic kidney disease stage 3 subtype: unspecified whether 3a or 3b Prothrombin [id number] mutation D68.52 Hypocalcemia E83.51 Obstructive sleep apnea G47.33 Migraine G43.909 Urge and stress incontinence N39.46 Depression F32.9 (1) Chronic kidney disease, stage III (moderate) Chronic kidney disease stage 3 subtype: unspecified whether 3a or 3b Qualified Code(s): N18.30 - Chronic kidney disease, stage 3 unspecified
[2021-09-24] MEDS: DOXYCYCLINE HYCLATE 100 MG CAP PO SCH (17:03)
[2021-09-24] MEDS: clonazePAM 0.5 MG TAB PO SCH (23:01)
[2021-09-24] MEDS: CASPOFUNGIN 50 MG in SODIUM CHLORIDE 0.9% 250 ML IV SCH (23:04)
[2021-09-24] MEDS: QUEtiapine FUMARATE 25 MG TABLET PO SCH (23:04)
[2021-09-24] MEDS: MIRABEGRON ER 25 MG TAB PO SCH (23:05)
[2021-09-25] MEDS: ACYCLOVIR 400 MG TAB PO SCH ×2 (09:13→23:45)
[2021-09-25] MEDS: OXYBUTYNIN CHLORIDE XL 5 MG TABCR PO SCH (09:14)
[2021-09-25] MEDS: GABAPENTIN 400 MG CAP PO SCH (09:14)
[2021-09-25] MEDS: FLUTICASONE/VILANTEROL 200/25MCG 14 PUFFS/INHALER INH SCH (09:14)
[2021-09-25] MEDS: MULTIVITAMIN TAB PO SCH (09:14)
[2021-09-25] MEDS: TOPIRAMATE 100 MG TAB PO SCH ×2 (09:15→23:45)
[2021-09-25] MEDS: RASPBERRY SYRUP 5 ML UDP PO SCH (09:15)
[2021-09-25] MEDS: SACCHAROMYCES BOULARDII 250 MG CAP PO SCH (09:15)
[2021-09-25] MEDS: VANCOMYCIN HCL 125 MG/2.5ML SOLN PO SCH (09:15)
[2021-09-25] MEDS: METHOCARBAMOL 750 MG TABLET PO PRN ×2 (09:16→23:45)
[2021-09-25] MEDS: oxyCODONE HCL IR 5 MG TAB (IMMEDIATE RELEASE) PO PRN ×4 (09:16→23:46)
[2021-09-25] MEDS: POTASSIUM CHLORIDE CRTAB 20 MEQ TABCR PO SCH (09:21)
[2021-09-25 12:33] LABS: Hemoglobin 8.9 g/dL (12.0-16.0); Mean Corpuscular Hemoglobin 27.3 pg (25-34); Mean Corpuscular Volume 82.8 fL (80-100); Nucleated RBC # (auto) 0.07 K/uL (0-0); Nucleated RBC % (auto) 3.4 %; Platelet Count 12 K/uL (130-400); RDW Coefficient of Variation 17.2 % (11.5-14.5); RDW Standard Deviation 51.4 fL (36.4-46.3); Red Blood Count 3.26 M/uL (4.2-5.4); White Blood Count 2.01 K/uL (4.8-10.8)
[2021-09-25 12:34] LABS: Eosinophils # (auto) 0.01 K/uL (0-0.5); Eosinophils % (auto) 0.5 %; Giant Platelets 1+; Immature Granulocytes # (auto) 0.01 K/uL (0.00-0.02); Immature Granulocytes % (auto) 0.5 %; Lymphocytes # (auto) 0.75 K/uL (1.2-3.4); Lymphocytes % (auto) 37.3 %; Monocytes # (auto) 0.27 K/uL (0.11-0.59); Monocytes % (auto) 13.4 %; Neutrophils # (auto) 0.97 K/uL (1.4-6.5); Neutrophils % (auto) 48.3 %; Platelet Estimate SIGNIFIC DECREASED (Normal); Poikilocytosis Present
[2021-09-25 12:38] LABS: BUN Creatinine Ratio 23.9 (10-20); Calcium 7.7 mg/dl (8.5-10.1); Creatinine Clr Calc Pharmacy 60.6 ml/min; Est GFR (African American) 105.6 ml/min; Est GFR (Non-African American) 91.2 ml/min; Potassium 4.6 mmol/L (3.5-5.1)
[2021-09-25] MEDS: PHENAZOPYRIDINE HCL 200 MG TAB PO PRN (13:57)
[2021-09-25] MEDS ORDERED: FILGRASTIM 480 MCG/1.6 ML VIAL SC ONE (16:30)
[2021-09-25] MEDS: DOXYCYCLINE HYCLATE 100 MG CAP PO SCH (17:07)
[2021-09-25] MEDS ORDERED: diphenhydrAMINE Capsule 25 MG CAP PO ONE (17:34)
[2021-09-25] MEDS ORDERED: ACETAMINOPHEN 325 MG TAB PO ONE (17:35)
[2021-09-25] MEDS: ACETAMINOPHEN 325 MG TAB PO PRN (17:44)
[2021-09-25] MEDS: clonazePAM 0.5 MG TAB PO SCH (23:44)
[2021-09-25] MEDS: CASPOFUNGIN 50 MG in SODIUM CHLORIDE 0.9% 250 ML IV SCH (23:44)
[2021-09-25] MEDS: QUEtiapine FUMARATE 25 MG TABLET PO SCH (23:44)
[2021-09-25] MEDS: MIRABEGRON ER 25 MG TAB PO SCH (23:45)
[2021-09-26] MEDS: PHENAZOPYRIDINE HCL 200 MG TAB PO PRN ×2 (00:07→09:18)
[2021-09-26 07:13] LABS: Hematocrit (blood only) 24.6 % (37-47); Hemoglobin 8.2 g/dL (12.0-16.0); Mean Corpuscular Hemoglobin 27.7 pg (25-34); Mean Corpuscular Volume 83.1 fL (80-100); Platelet Count 15 K/uL (130-400); RDW Coefficient of Variation 17.2 % (11.5-14.5); RDW Standard Deviation 50.2 fL (36.4-46.3); Red Blood Count 2.96 M/uL (4.2-5.4); White Blood Count 1.97 K/uL (4.8-10.8)
[2021-09-26 07:31] LABS: BUN Creatinine Ratio 24.3 (10-20); Calcium 7.5 mg/dl (8.5-10.1); Creatinine Clr Calc Pharmacy 50.3 ml/min; Est GFR (African American) 86.4 ml/min; Est GFR (Non-African American) 74.6 ml/min; Potassium 4.2 mmol/L (3.5-5.1)
[2021-09-26 07:32] LABS: Mean Corpuscular Hgb Conc 33.3 g/dL (32-36)
[2021-09-26 07:42] LABS: ALC (manual) 0.49 K/uL (1.2-3.4); ANC (manual) 1.25 K/uL (1.4-6.5); Blast # (manual) 0.02 K/uL (0-0); Blast Cells % (manual) 1.1 %; Lymphocytes # (manual) 0.49 K/uL (1.2-3.4); Lymphocytes % (manual) 25.1 %; Monocytes % (manual) 10.2 %; Neutrophils # (manual) 1.25 K/uL (1.4-6.5); Neutrophils % (manual) 63.6 %
[2021-09-26 08:01] LABS: Nucleated RBC # (auto) 0.08 K/uL (0-0); Nucleated RBC % (auto) 3.9 %; Platelet Estimate SIGNIFIC DECREASED (Normal); Poikilocytosis Present; Schistocytes Occasional; Toxic Granulation 1+
[2021-09-26] MEDS: RASPBERRY SYRUP 5 ML UDP PO SCH (08:12)
[2021-09-26] MEDS: FLUTICASONE/VILANTEROL 200/25MCG 14 PUFFS/INHALER INH SCH (08:12)
[2021-09-26] MEDS: ACYCLOVIR 400 MG TAB PO SCH ×2 (08:12→08:13)
[2021-09-26] MEDS: VANCOMYCIN HCL 125 MG/2.5ML SOLN PO SCH (08:12)
[2021-09-26] MEDS: OXYBUTYNIN CHLORIDE XL 5 MG TABCR PO SCH (08:12)
[2021-09-26] MEDS: POTASSIUM CHLORIDE CRTAB 20 MEQ TABCR PO SCH (08:13)
[2021-09-26] MEDS: SACCHAROMYCES BOULARDII 250 MG CAP PO SCH (08:13)
[2021-09-26] MEDS: GABAPENTIN 400 MG CAP PO SCH (08:13)
[2021-09-26] MEDS: TOPIRAMATE 100 MG TAB PO SCH (08:13)
[2021-09-26] MEDS: MULTIVITAMIN TAB PO SCH (08:13)
[2021-09-26] MEDS: oxyCODONE HCL IR 5 MG TAB (IMMEDIATE RELEASE) PO PRN ×2 (08:18→13:15)
[2021-09-26] MEDS ORDERED: ACETAMINOPHEN 325 MG TAB PO PRN (15:13)
[2021-09-26] MEDS ORDERED: diphenhydrAMINE Capsule 25 MG CAP PO PRN (15:14)
[2021-09-26] MEDS ORDERED: AMPHOTERICIN B CONSULT ACTIVE PRN (15:14)
--- NOTE | 2021-09-26 15:52 | Urology Consultation ---
Date of Consultation September 26, 2021 Assessment & Plan (1) Neutropenic fever: (2) S/P ureteral stent placement: (3) Acute UTI (urinary tract infection): 66yo F with chronic b/l ureteral stents admitted with neutropenic fever and acute UTI. - Urology consulted for b/l ureteral stents, fungal UTI - Patient with chronic b/l hydronephrosis managed with chronic b/l ureteral stents - Last exchanged 05/30/21 - Plan of care reviewed with Dr. Cervantes, on-call urologist - She is afebrile, VSS, non-toxic appearing. - Labs reviewed- Wbc 1.97, Hgb 8.2, Cr 0.82 - UCx from 09/20 and 09/22 with Rachelle glabrata - ID consulted, On IV Capsofungin - Blood culture 09/20 no growth - Given her fungal UTI in the setting of chronic indwelling bilateral ureteral stents, will plan to proceed to OR for cystoscopy, bilateral ureteral stent exchange today. Risks and benefits to be reviewed with patient by Dr. Cervantes. - Keep NPO - Continue supportive care, antifungal therapy, and close monitoring - Will continue to follow Attending note: Independently evaluated, assessed, examined, and interviewed. Agree with findings as above. Patient has complicated history. Has indwelling stents being changed every 3 months which was delayed now almost a month and a half due to patient not being medically stable with severe pancytopenia especially thrombocytopenia. Patient had presented with significant illness and neutropenic fever. Has drastically improved. Is clinically much better and overall improved from acute illness. Patient had been on caspofungin IV for management of glabrata infection. Has funguria with indwelling stents. Stents have also been in the past the plan time for removal. And with patient improved and platelet count increased for patient will be optimal time for exchange. Patient did eat lunch and because of this are delayed until the evening. Patient is also being seen by infectious disease and hospitalist team. There has been some discussion of changing patient to IV amphotericin B. Extensive discussion at length with pharmacist, hospitalist, and infectious disease doctor. Different recommendations and options were considered. Case was discussed with my partners from the urologic standpoint and from a surgical candidate point, we do not recommend proceeding with the IV amphotericin B in the preoperative and immediate perioperative period. Major concern due to systemic effects especially related to immunosuppression, possible liver failure, renal damage, and other major concerns of IV amphotericin B. Clinically patient has improved drastically at this point aggressive therapy does not seem warranted especially with considerable risks. Will utilize caspofungin preoperatively and plan to maintain patient on her current medications. Will plan to leave new stents and will consider possible ureteral catheters as well as three-way [place] catheter. Either of these options if able to be done will be able to facilitate bladder or ureteral installations if it is deemed necessary. Extensively discussed risk and benefits with patient. Discussed concerns and issues. Discussed patient's overall health and concerns. Discussed possible complications and issues. Discussed major concerns related to patient's pancytopenia especially related to thrombocytopenia. Also discussed possible bleeding risks and infections. Risks and benefits discussed at length for procedure. These include bleeding, infection, injury to surrounding tissues or organs, and risks associated with anesthesia. Patient states understanding and agrees to proceed. Will sign consent and schedule. 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 Urology consulted for indwelling ureteral stents, fungal UTI Patient is known to [facility]. Patient has a known history of bilateral hydronephrosis managed with chronic bilateral indwelling stents. Last stent exchange was 05/30/[address] Cervantes. Plan was for next stent exchange in 3 months, however this was cancelled as patient was not medically stable at the time. Chart review: Afebrile at present (Tmax 39.5 on 09/21). Wbc 1.97 Hgb 8.2 Cr 0.82 Urine culture 09/20- Rachelle glabrata Urine culture 09/22- Rachelle glabrata Blood culture 09/20- Negative On IV Capsofungin - ID consulted CTAP impression 09/26- Bilateral nephroureteral stents are noted. No evidence of hydronephrosis or hydroureter within the limitations of noncontrast technique. Patient examined at bedside this afternoon. Awake, resting in bed on arrival. No acute distress. Denies any pain or discomfort at present. Some hematuria and dysuria. No fevers or chills. Denies nausea or vomiting. Voiding spontaneously without difficulty. She reports urinary urgency and incontinence/leakage at baseline. Feels she is emptying her bladder without difficulty. Offers no additional complaints at this time Allergies Allergy/AdvReac Type Severity Reaction Status Date / Time bee venom protein (honey bee) Allergy Severe Difficulty Verified 09/21/21 02:29 Breathing adhesive Allergy Intermediate Red torn Verified 09/21/21 02:29 skin Iodinated Contrast Media Allergy Intermediate Hives Verified 09/21/21 02:29 iodine Allergy Intermediate Hives Verified 09/21/21 02:29 levofloxacin Allergy Intermediate numbness/we Verified 09/21/21 02:29 akness pregabalin Allergy Intermediate fever?/?cher Verified 09/21/21 02:29 h strawberry Allergy Intermediate Hives Verified 09/21/21 02:29 Sulfa (Sulfonamide Allergy Intermediate Rash, hives Verified 09/21/21 02:29 Antibiotics) vancomycin Allergy Intermediate Bullous Verified 09/21/21 02:29 skin rash allopurinol Allergy Mild Rash Verified 09/21/21 02:29 ceftriaxone [From Rocephin] Allergy Mild Rash Verified 09/21/21 02:29 piperacillin [From Zosyn] Allergy Mild Rash Verified 09/21/21 02:29 tazobactam [From Zosyn] Allergy Mild Rash Verified 09/21/21 02:29 venlafaxine Allergy Unknown Unknown Verified 09/21/21 02:29 gluten AdvReac Severe Celiac Dz Verified 09/21/21 02:29 = GI symptoms propoxyphene AdvReac Intermediate [employer] side Verified 09/21/21 02:29 effects Home Medications Medication Instructions Recorded Confirmed Type butorphanol 10 mg/mL nasal spray 1 spray INTRANASAL Q3H PRN 07/16/18 09/21/21 History cetirizine 10 mg tablet (Zyrtec) 10 mg PO QAM 07/16/18 09/21/21 History folic acid 1 mg tablet 1 mg PO QAM 07/16/18 09/21/21 History magnesium oxide 400 mg PO QAM 07/16/18 09/21/21 History multivitamin 1 tab PO QAM 07/16/18 09/21/21 History triamcinolone acetonide 0.025 % 1 applic TOPICAL BID PRN 07/16/18 09/21/21 History topical cream vitamin B complex (B-Complex) 1 tab PO QAM 07/16/18 09/21/21 History calcium carbonate 600 mg-vitamin 1 tab PO QPM 11/26/18 09/21/21 History D3 20 mcg (800 unit) tablet (Caltrate with Vitamin D3) cyanocobalamin (vitamin B-12) 1,000 mcg IM MONTHLY 02/10/19 09/21/21 History 1,000 mcg/mL injection solution ferrous sulfate 325 mg (65 mg 325 mg PO QAM 02/10/19 09/21/21 History iron) tablet (iron) psyllium husk 0.52 gram capsule 1.04 g PO QAM 08/28/19 09/21/21 History (Metamucil) vitamin E 400 unit capsule 400 unit PO QAM 08/28/19 09/21/21 History Medical Marijuana 1 ml SUBLINGUAL UD PRN 06/27/20 09/21/21 History denosumab 60 mg/mL subcutaneous 60 mg SUBCUT .q 6 months ml 12/17/20 09/21/21 History syringe (Prolia) acetaminophen 500 mg capsule 500 mg PO QID PRN 01/24/21 09/21/21 History L.acidophilus-B.lactis-B.longum 15 1 cap PO QAM 02/03/21 09/21/21 History billion cell capsule ergocalciferol (vitamin D2) 1,250 50,000 unit PO WEEKLY #12 cap 02/28/21 09/21/21 Rx mcg (50,000 unit) capsule albuterol sulfate 90 mcg/actuation 2 puff INHALATION QID PRN #8.5 gm 04/22/21 09/21/21 Rx aerosol inhaler (ProAir HFA) sertraline 50 mg tablet (Zoloft) 50 mg PO HS 05/19/21 09/21/21 History metoprolol succinate 50 mg 25 mg PO QAM #45 tab 05/23/21 09/21/21 Rx tablet,extended release 24 hr phenazopyridine 200 mg tablet 200 mg PO Q8H PRN #10 tab 05/30/21 09/21/21 Rx (Pyridium) Auto Titrating CPAP #1 ea 06/01/21 08/23/21 Rx CPAP Supplies #1 ea 06/01/21 08/23/21 Rx acyclovir 400 mg tablet 400 mg PO BID #60 tab 06/21/21 09/21/21 Rx methocarbamol 750 mg tablet 750 mg PO BID PRN #60 tab 06/21/21 09/21/21 Rx rizatriptan 10 mg tablet 10 mg PO DAILY PRN #9 tab 06/21/21 09/21/21 Rx topiramate 100 mg tablet (Topamax) 100 mg PO .COMPLEX 30 Days #90 tab 06/21/21 09/21/21 Rx oxybutynin chloride 10 mg 10 mg PO QAM #90 tab 07/14/21 09/21/21 Rx tablet,extended release 24 hr cephalexin 500 mg capsule 500 mg PO QAM #30 cap 07/15/21 09/21/21 Rx mirabegron 50 mg tablet,extended 50 mg PO HS #90 tab 07/25/21 09/21/21 Rx release 24 hr (Myrbetriq) hlhcklcfgs-ujmcuaoskigqi-ahfoegac 1 tab PO DAILY PRN 08/10/21 09/21/21 History 50 mg-325 mg-40 mg tablet (Esgic) coQ10 (ubiquinol) 200 mg capsule 200 mg PO QAM 08/10/21 09/21/21 History doxycycline hyclate 100 mg capsule 100 mg PO QAM 08/10/21 09/21/21 History gabapentin 400 mg capsule 400 mg PO QAM 30 Days #30 cap 08/11/21 09/21/21 Rx (Neurontin) potassium chloride 20 mEq 20 meq PO QAM #30 tab 08/11/21 09/21/21 Rx tablet,extended release oxycodone 5 mg tablet 5 mg PO Q4H PRN #20 tab 08/18/21 09/21/21 Rx budesonide-formoterol HFA 80 2 puff INHALATION BID #3 inhaler 08/22/21 09/21/21 Rx mcg-4.5 mcg/actuation aerosol inhaler (Symbicort) clonazepam 1 mg tablet 0.5 mg PO HS #30 tab 08/22/21 09/21/21 Rx quetiapine 50 mg tablet (Seroquel) 50 mg PO HS #30 tab 08/22/21 09/21/21 Rx enoxaparin 30 mg/0.3 mL 30 mg SUBCUT DAILY ml 09/05/21 09/21/21 History subcutaneous syringe Patient History Medical History Asthma Celiac disease Cellulitis Recurrent B/L LE - on prophylactic abx (Follows with Dr. Nielson). on chronic Cephalexin and Doxy Chronic back pain Chronic kidney disease Stage III > follows Dr. Fleming Chronic obstructive pulmonary disease Emphysema Cirrhosis of liver Hx of Hep C with cirrhosis Depression History of blood transfusion History of recurrent UTI (urinary tract infection) Hx MRSA infection several yrs ago Hx of cancer of lung s/p radiation (2012), recurrence (2019 in [facility]) s/p radiation- follows with heme/onc Hx of Clostridium difficile infection on Vanco 2x/week for prophylaxis Hx of deep venous thrombosis LLE (1976) Hx of hepatitis C 2013 > "resolved" Hx of non-Hodgkin's lymphoma s/p treatment in 2013 Hydronephrosis b/l chronic hydronephrosis requiring routine stent exchanges Hyperlipidemia Insomnia Migraine Mood disorder Myelodysplasia (myelodysplastic syndrome) Diagnosed 07/09/21 by bone marrow biopsy. Being treated with Azacitidine and Procrit injections. Obstructive sleep apnea 1L O2 HS Osteoporosis Poor historian R/t hx stroke Prediabetes diet control Prothrombin [id number] mutation "Factor 2 mutation" on Lovenox (lifelong), follows with [facility] Psoriasis Radiation pneumonitis Stroke 1996, residual decreased right sided sensation, memory impairment, follows with Dr. Pagan Thrombocytopenia Chronic (platelet baseline in the 40-70s over the past few months) Venous stasis dermatitis Surgical History H/O bursectomy Right knee History of bone marrow biopsy History of bronchoscopy History of carpal tunnel release Left History of cystoscopy Multiple Bilateral Retrograde Pyelogram (05/27/21): MAC at [facility] History of esophagogastroduodenoscopy (EGD) History of liver biopsy History of tooth extraction History of ureter stent MULTIPLE Hx of bladder repair surgery FOR PROLAPSE Hx of colonoscopy Hx of tonsillectomy Hx of tubal ligation Family History Unknown Heart disease Hypertension Mother Psoriasis Diabetes Social History Smoking Status: Former smoker Tobacco Type: Cigarettes Cigarettes Per Day: Quit 02/2011; Smoking End Date: March 07, 2011; Second Hand Exposure: No; Do You Dip or Chew Tobacco: No; Tobacco Cessation Education Requested by Patient: No Hx Alcohol Use: No Hx Substance Use: No Preferred Language: [place] Communication Ability: Effective Visual Impairment: No Limitations Hearing Ability: Normal Treasury Accountant Required: No Beliefs That Will Affect Care: None marital status: / Current Living Situation: Family Current Living Situation Comment: Son and son's girlfriend current occupational status: retired How many Children do You have: 2 Other Information That Helps Us Care for You: No Feels Safe at Home: Yes Safety Concerns: Feels Safe At This Time Assistive Devices: None Review of Systems Review of Systems: All systems reviewed & are unremarkable except as noted in HPI & below Physical Exam Constitutional: + thin; no acute distress Neck: normal visual inspection Respiratory: normal respiratory effort and able to speak in complete sentences; no labored breathing and no audible wheezes Gastrointestinal (Abdomen): Inspection/Auscultation: abdomen normal to inspection; abdomen not distended Percussion/Palpation: abdomen soft; abdomen nontender and no guarding Musculoskeletal: Head/Neck/Chest: normocephalic Skin: No visible rashes or lesions to exposed skin areas Neurologic: moves all extremities and awake Psychiatric: Orientation: alert, oriented x 3 and cooperative Results & Data ([facility]) Vital Signs (Past 12 Hours) Vital Signs Temp Pulse Resp BP Pulse Ox 09/26/21 14:45 36.4 C L 84 14 108/66 98 09/26/21 07:14 36.7 C 115 H 16 117/65 97 PG Care Time/CCT Total # of Minutes Spent Total Time Spent with Patient: Total time spent is greater than 50% in coordination of care (as documented) at patient's floor/unit and/or counseling patient: Coding Level of Care Code 53654 Initial Inpt Care Lvl 2 Diagnoses Neutropenic fever D70.9; R50.81 S/P ureteral stent placement Z96.0 Acute UTI (urinary tract infection) N39.0
[2021-09-26] MEDS ORDERED: LACTATED RINGER'S 500 ML IV SCH ×2 (16:00)
--- NOTE | 2021-09-26 16:03 | CT Scan Report ---
CT abd pelvis wo con CLINICAL HISTORY: r/o obstructive uropathy TECHNIQUE: Helical axial images of the abdomen and pelvis were obtained. Automated dose lowering tech niques and/or adjustment according to patient size were utilized for this exam. This exam was perfor med without intravenous contrast. COMPARISON: Comparison is made to CT abdomen pelvis 05/09/2021 FINDINGS: Lower chest: Bronchiectasis and scarring is again seen in the right lower lobe. Liver: Unremarkable. No focal lesions are seen. Gallbladder and biliary tree: No calcified gallstones. Normal caliber wall. No intra- or extrahepatic biliary ductal dilation. Pancreas: Fatty replacement of the pancreas is seen. Spleen: The spleen is prominent in size measuring 13 cm in craniocaudal dimension. Adrenals: Unremarkable. Kidneys and ureters: Bilateral nephroureteral stents are seen. No significant hydronephrosis is seen bilaterally. Bladder: Unremarkable. Reproductive organs: Unremarkable. Bowel: Unremarkable. Lymph nodes Retroperitoneal: Unremarkable. Mesenteric: Unremarkable. Pelvic: Unremarkable. Peritoneum: Normal Vessels: Unremarkable. Abdominal wall: Unremarkable. Bones: Unremarkable. IMPRESSION: Bilateral nephroureteral stents are noted. No evidence of hydronephrosis or hydroureter within the li mitations of noncontrast technique. ACT 112: Negative or not required by law. Electronically signed by: James Castañeda M.D. 09/26/2021 4:02 PM
[2021-09-26] MEDS: DOXYCYCLINE HYCLATE 100 MG CAP PO SCH (16:48)
[2021-09-26] MEDS ORDERED: AMPHOTERICIN B IV SCH (17:00)
[2021-09-26] MEDS ORDERED: DEXTROSE 5% IV SCH (17:00)
--- NOTE | 2021-09-26 17:48 | Hospitalist Progress Note ---
Date of Service September 26, 2021 Assessment & Plan (1) Neutropenic fever: Plan: Patient is a 66 year old female with PMHx Myelodysplastic syndrome on chemotherapy, SACHA, urge and stress incontinence, COPD emphysema, Squamous Cell Lung cancer, lymphoma, prothrombin [id number] Factor 2 mutation, Celiac disease, CVA, that presents with concerns of sore throat, runny nose, and a fever of 100.8F at home. Patient had reached out to her oncologists office in regards to her symptoms and fevers and was urged to come to the ED for evaluation as her last ANC was 660. Covid-19 -, flu A/B also negative *Possible sepsisin immunocompromised patient of unknown origin now felt to be neutropenic fever, Rachelle UTI, all blood cultures show no growth and no fever for 4 days Neutropenic Fever -Last chemo in July per patient-has only received 1 dose of 5-azacitidine so far and has had persistent pancytopenia since then related to her MDS and chemo -no longer neutropenic--patient has since defervesced on 09/22 - initially on Aztreonam and Linezolid, stopped since blood cultures showing NG -Patient does note history of urine related infections secondary to her urinary stents -Urine culture now growing Rachelle glabrata - indwelling ureteral stents since May 2021, due to come out -Started IV caspofungin 09/22 -ID consulted who recommended CT of the abdomen and pelvis (ordered and pending), urology consult (done and plan is for removal of ureteral stents with placement catheter for amphotericin installation) and transition to amphotericin B -Fungal blood cultures obtained -Urology very hesitant about long-term amphotericin. I agree with this. Patient is very chronically ill and amphotericin can be toxic. Given stent removal/exchange today, and no evidence of fungemia up until this point--it see ms reasonable that amphotericin bladder instillation would be appropriate. In discussion with Dr. Cervantes, he is able to insert specific stents that would allow for not only installation in the bladder but also into the ureters. I did reach out to infectious disease to determine if this would be an acceptable treatment plan -Neutropenic precautions--ANC 1252.9 (mild neutropenia). Did receive 1 dose of Neupogen on 09/22. Additional dose will be given today as recommended by oncology -Continue prophylactic home Doxycycline and Acyclovir (2) Acute UTI (urinary tract infection): Plan: With bilateral indwelling ureteral stents Growing yeast in the urine-she has grown Rachelle not albicans and Rachelle glabrata in the past Blood cultures without yeast (specific fungal blood culture ordered and pending) ID and Urology consulted-- see above (see recommendation) (3) Pancytopenia: Plan: *Chemotherapy induced pancytopenia Hemoglobin was down to 6.6 and transfused 2 units PRBCs on 09/23 Unfortunately she has developed antibodies in her blood- blood products have to come from [place] [facility] Hb is > 9, platelets are low at 13k, no bleeding or bruising, repeat tomorrow, if still low give 2 units of platelets -received Neupogen 480 SQ on 09/22. Additional dose today as recommended by Dr. Bloom Patient is transfusion dependent at this point (4) Myelodysplasia (myelodysplastic syndrome): Plan: *immunocompromised patient in patient with MDS under going Chemo Secondary myelodysplasia due to previous treatment for lymphoma Currently undergoing chemotherapy with 5azacitidine which is caused her significant pancytopenia as above (5) Hx of Clostridium difficile infection: Plan: With a history of C. difficile at least once or twice in the past Typically takes vancomycin twice a week Was on vancomycin 125 mg p.o. once daily while on IV antibiotic therapy IV antibiotic therapy has since been stopped thus will DC vancomycin Monitor for development of diarrhea (6) S/P ureteral stent placement: Plan: With bilateral indwelling ureteral stents for chronic hydronephrosis Last exchanged in the beginning of May Is overdue for an exchange but has been unable to get it done due to severe pancytopenia Urology has since been consulted and plan is for ureteral stent exchange today as outlined above (7) COPD (chronic obstructive pulmonary disease): Plan: -Continue albuterol PRN -Continue home Symbicort (8) Chronic kidney disease, stage III (moderate): Plan: Stable -Avoid nephrotoxins -renally dose meds when appropriate -follow BMP (9) Prothrombin [id number] mutation: Plan: Previously on Lovenox lifelong, but has been held due to significant thrombocytopenia (10) Hypocalcemia: Plan: replaced and resolved (11) Obstructive sleep apnea: Plan: Continue supplemental O2 at bedtime (12) Migraine: Plan: -Continue home Topamax for prophylaxis (13) Urge and stress incontinence: Plan: Continue Myrbetriq and oxybutynin (14) Depression: Plan: With anxiety -Continue home clonazepam -Continue home Seroquel -Zoloft was on hold given treatment with linezolid upon admission but this has since been stopped. Okay to resume Zoloft Plan: DVT prophylaxis-add HOMAR hose, avoid SCDs due to thrombocytopenia and risk of trauma. Avoid anticoagulation otherwise due to severe thrombocytopenia and anemia Disposition- await ID consult Admission and Anticipated Discharge Date Admission Date: September 21, 2021 Subjective Patient seen on daily rounds today. Still reports complaints of dysuria and frequency but otherwise denies any subsequent fevers. Seen by infectious disease who is recommending transition of caspofungin to amphotericin due to lack of caspofungin penetration to the system and growth of Rachelle glabrata. In addition, CT of the abdomen and pelvis and urology consult recommended. Patient has since been seen by urology who is planning on ureteral stent e xchange today. Plan is for ureteral catheters for ability to do amphotericin ureteral and bladder instillation due to toxicity caused by amphotericin and the fact that this patient is already very chronically ill Review of Systems Review of Systems: All systems reviewed and are unremarkable except as noted in HPI and below Denies fevers, chills, headache, nasal congestion, sore throat, cough, chest pain, shortness of breath, palpitations, orthopnea, PND, abdominal pain, nausea, vomiting, diarrhea, constipation, hematuria, back pain, joint pain or swelling, easy bruising or bleeding, skin lesions or rashes. Physical Exam Physical Exam: General: Resting comfortably in her hospital bed. Appears chronically but not acutely ill. NAD. HEENT: Head is AT/NC buccal mucosa is moist and pink Neck: No JVD. Negative hepatojugular reflex Cardiac: RRR without M/G/R Lungs: CTA without W/R/R Abdomen: Normoactive X4. Soft and nontender in all quadrants. Extremities: No peripheral clubbing cyanosis or edema Neuro: A&O X4 cranial nerves II through XII are grossly intact no focal neuro deficits Skin: No obvious skin lesions or rashes Psych: Appropriate affect pleasant and cooperative Results & Data Results & Data ([facility]) Vital Signs (Past 12 Hours) Vital Signs Temp Pulse Resp BP Pulse Ox 09/26/21 14:45 36.4 C L 84 14 108/66 98 09/26/21 07:14 36.7 C 115 H 16 117/65 97 Laboratory Results 09/26/21 05:42 09/26/21 05:42 PG Care Time/CCT Total # of Minutes Spent Total Time Spent with Patient: Total time spent is greater than 50% in coordination of care (as documented) at patient's floor/unit and/or counseling patient: Coding Level of Care Code 89448 Subseq Hosp Care Lvl 3 Diagnoses Neutropenic fever D70.9; R50.81 Acute UTI (urinary tract infection) N39.0 Pancytopenia D61.818 Myelodysplasia (myelodysplastic syndrome) D46.9 Hx of Clostridium difficile infection Z86.19 S/P ureteral stent placement Z96.0 COPD (chronic obstructive pulmonary disease) J44.9 Chronic kidney disease, stage III (moderate) N18.30 Chronic kidney disease stage 3 subtype: unspecified whether 3a or 3b Prothrombin [id number] mutation D68.52 Hypocalcemia E83.51 Obstructive sleep apnea G47.33 Migraine G43.909 Urge and stress incontinence N39.46 Depression F32.9 (1) Chronic kidney disease, stage III (moderate) Chronic kidney disease stage 3 subtype: unspecified whether 3a or 3b Qualified Code(s): N18.30 - Chronic kidney disease, stage 3 unspecified
[2021-09-26] MEDS ORDERED: FILGRASTIM 480 MCG/1.6 ML VIAL SQ ONE (18:15)
--- NOTE | 2021-09-26 20:54 | Anesthesiology Consultation ---
Date of Service September 26, 2021 Assessment & Plan (1) Encounter for pre-operative examination: Chart Review Chart Review: Acceptable Risk for Surgery (Urgent procedure) History Surgery Operation Date: 09/26/21 18:15 Proposed Procedures p Cystoscopy, Bilateral Stent Exchange - Luis Cervantes DO Height/Weight Height: 5 ft 1 in Weight: 47.2 kg Allergies Allergy/AdvReac Type Severity Reaction Status Date / Time bee venom protein (honey bee) Allergy Severe Difficulty Verified 09/21/21 02:29 Breathing adhesive Allergy Intermediate Red torn Verified 09/21/21 02:29 skin Iodinated Contrast Media Allergy Intermediate Hives Verified 09/21/21 02:29 iodine Allergy Intermediate Hives Verified 09/21/21 02:29 levofloxacin Allergy Intermediate numbness/we Verified 09/21/21 02:29 akness pregabalin Allergy Intermediate fever?/?cher Verified 09/21/21 02:29 h strawberry Allergy Intermediate Hives Verified 09/21/21 02:29 Sulfa (Sulfonamide Allergy Intermediate Rash, hives Verified 09/21/21 02:29 Antibiotics) vancomycin Allergy Intermediate Bullous Verified 09/21/21 02:29 skin rash allopurinol Allergy Mild Rash Verified 09/21/21 02:29 ceftriaxone [From Rocephin] Allergy Mild Rash Verified 09/21/21 02:29 piperacillin [From Zosyn] Allergy Mild Rash Verified 09/21/21 02:29 tazobactam [From Zosyn] Allergy Mild Rash Verified 09/21/21 02:29 venlafaxine Allergy Unknown Unknown Verified 09/21/21 02:29 gluten AdvReac Severe Celiac Dz Verified 09/21/21 02:29 = GI symptoms propoxyphene AdvReac Intermediate [employer] side Verified 09/21/21 02:29 effects Medications Home Medications Medication Instructions Recorded Confirmed Last Taken butorphanol 10 mg/mL nasal spray 1 spray INTRANASAL Q3H PRN 07/16/18 09/21/21 01/01/19 cetirizine 10 mg tablet (Zyrtec) 10 mg PO QAM 07/16/18 09/21/21 08/09/21 folic acid 1 mg tablet 1 mg PO QAM 07/16/18 09/21/21 08/09/21 magnesium oxide 400 mg PO QAM 07/16/18 09/21/21 08/09/21 multivitamin 1 tab PO QAM 07/16/18 09/21/21 08/09/21 triamcinolone acetonide 0.025 % 1 applic TOPICAL BID PRN 07/16/18 09/21/21 08/09/21 topical cream vitamin B complex (B-Complex) 1 tab PO QAM 07/16/18 09/21/21 08/09/21 calcium carbonate 600 mg-vitamin 1 tab PO QPM 11/26/18 09/21/21 08/08/21 D3 20 mcg (800 unit) tablet (Caltrate with Vitamin D3) cyanocobalamin (vitamin B-12) 1,000 mcg IM MONTHLY 02/10/19 09/21/21 07/29/21 1,000 mcg/mL injection solution ferrous sulfate 325 mg (65 mg 325 mg PO QAM 02/10/19 09/21/21 08/09/21 iron) tablet (iron) psyllium husk 0.52 gram capsule 1.04 g PO QAM 08/28/19 09/21/21 08/09/21 (Metamucil) vitamin E 400 unit capsule 400 unit PO QAM 08/28/19 09/21/21 08/09/21 Medical Marijuana 1 ml SUBLINGUAL UD PRN 06/27/20 09/21/21 08/10/21 denosumab 60 mg/mL subcutaneous 60 mg SUBCUT .q 6 months ml 12/17/20 09/21/21 12/17/20 syringe (Prolia) acetaminophen 500 mg capsule 500 mg PO QID PRN 01/24/21 09/21/21 08/09/21 L.acidophilus-B.lactis-B.longum 15 1 cap PO QAM 02/03/21 09/21/21 08/09/21 billion cell capsule ergocalciferol (vitamin D2) 1,250 50,000 unit PO WEEKLY #12 cap 02/28/21 09/21/21 08/06/21 mcg (50,000 unit) capsule albuterol sulfate 90 mcg/actuation 2 puff INHALATION QID PRN #8.5 gm 04/22/21 09/21/21 05/30/21 07:00 aerosol inhaler (ProAir HFA) sertraline 50 mg tablet (Zoloft) 50 mg PO HS 05/19/21 09/21/21 08/08/21 metoprolol succinate 50 mg 25 mg PO QAM #45 tab 05/23/21 09/21/21 08/09/21 tablet,extended release 24 hr phenazopyridine 200 mg tablet 200 mg PO Q8H PRN #10 tab 05/30/21 09/21/21 Unknown (Pyridium) Auto Titrating CPAP #1 ea 06/01/21 08/23/21 Unknown CPAP Supplies #1 ea 06/01/21 08/23/21 Unknown acyclovir 400 mg tablet 400 mg PO BID #60 tab 06/21/21 09/21/21 08/09/21 methocarbamol 750 mg tablet 750 mg PO BID PRN #60 tab 06/21/21 09/21/21 08/09/21 rizatriptan 10 mg tablet 10 mg PO DAILY PRN #9 tab 06/21/21 09/21/21 Unknown topiramate 100 mg tablet (Topamax) 100 mg PO .COMPLEX 30 Days #90 tab 06/21/21 09/21/21 08/09/21 oxybutynin chloride 10 mg 10 mg PO QAM #90 tab 07/14/21 09/21/21 08/09/21 tablet,extended release 24 hr cephalexin 500 mg capsule 500 mg PO QAM #30 cap 07/15/21 09/21/21 08/09/21 mirabegron 50 mg tablet,extended 50 mg PO HS #90 tab 07/25/21 09/21/21 08/08/21 release 24 hr (Myrbetriq) [id number]-pkqvashoevclm-zjtngtnp 1 tab PO DAILY PRN 08/10/21 09/21/21 Unknown 50 mg-325 mg-40 mg tablet (Esgic) coQ10 (ubiquinol) 200 mg capsule 200 mg PO QAM 08/10/21 09/21/21 08/09/21 doxycycline hyclate 100 mg capsule 100 mg PO QAM 08/10/21 09/21/21 08/09/21 gabapentin 400 mg capsule 400 mg PO QAM 30 Days #30 cap 08/11/21 09/21/21 Unknown (Neurontin) potassium chloride 20 mEq 20 meq PO QAM #30 tab 08/11/21 09/21/21 Unknown tablet,extended release oxycodone 5 mg tablet 5 mg PO Q4H PRN #20 tab 08/18/21 09/21/21 Unknown budesonide-formoterol HFA 80 2 puff INHALATION BID #3 inhaler 08/22/21 09/21/21 Unknown mcg-4.5 mcg/actuation aerosol inhaler (Symbicort) clonazepam 1 mg tablet 0.5 mg PO HS #30 tab 08/22/21 09/21/21 Unknown quetiapine 50 mg tablet (Seroquel) 50 mg PO HS #30 tab 08/22/21 09/21/21 Unknown enoxaparin 30 mg/0.3 mL 30 mg SUBCUT DAILY ml 09/05/21 09/21/21 Unknown subcutaneous syringe Active Medications Generic Name Dose Route Start Last Admin Trade Name Freq PRN Reason Stop Dose Admin Acetaminophen 650 mg 09/21/21 08:06 09/25/21 17:44 Acetaminophen 325 Mg Tab PO 10/21/21 08:05 650 mg Q4H PRN Administration Pain or Fever Acyclovir 400 mg 09/21/21 09:00 09/26/21 08:13 Acyclovir 400 Mg Tab PO 10/21/21 08:59 400 mg BID BIRDIE Administration Clonazepam 0.5 mg 09/21/21 21:00 09/25/21 23:44 Clonazepam 0.5 Mg Tab PO 10/21/21 20:59 0.5 mg HS BIRDIE Administration Doxycycline Hyclate 100 mg 09/21/21 17:00 09/26/21 16:48 Doxycycline Hyclate 100 Mg Cap PO 10/21/21 16:59 Not Given Q24H BIRDIE Fluticasone/Vilanterol 1 puffs 09/21/21 09:00 09/26/21 08:12 Fluticasone/Vilanterol 200/25mcg 14 Puffs/Inhaler INH 10/21/21 08:59 1 puffs DAILY BIRDIE Administration Protocol Gabapentin 400 mg 09/21/21 09:00 09/26/21 08:13 Gabapentin 400 Mg Cap PO 10/21/21 08:59 400 mg QAM BIRDIE Administration Lactated Ringer's 500 mls @ 500 mls/hr 09/26/21 16:00 09/26/21 18:03 Lr IV 10/26/21 15:59 Infused DAILY@1600,2300 BIRDIE Infusion Methocarbamol 750 mg 09/22/21 00:19 09/25/21 23:45 Methocarbamol 750 Mg Tablet PO 10/22/21 00:18 750 mg BID PRN Administration Pain Mirabegron 50 mg 09/21/21 21:00 09/25/21 23:45 Mirabegron Er 25 Mg Tab PO 10/21/21 20:59 50 mg HS BIRDIE Administration Multivitamins 1 tab 09/24/21 09:00 09/26/21 08:13 Multivitamin Tab PO 10/24/21 08:59 1 tab QAM BIRDIE Administration Ondansetron HCl 4 mg 09/21/21 08:06 09/23/21 17:51 Ondansetron Inj 2 Mg/Ml 2 Ml Vial IV 10/21/21 08:05 4 mg Q6H PRN Administration Nausea Oxybutynin Chloride 10 mg 09/21/21 09:00 09/26/21 08:12 Oxybutynin Chloride Xl 5 Mg Tabcr PO 10/21/21 08:59 10 mg QAM BIRDIE Administration Oxycodone HCl 5 mg 09/21/21 08:06 09/26/21 13:15 Oxycodone Hcl Ir 5 Mg Tab (Immediate Release) PO 10/05/21 08:05 5 mg Q4H PRN Administration pain Phenazopyridine HCl 200 mg 09/23/21 21:25 09/26/21 09:18 Phenazopyridine Hcl 200 Mg Tab PO 10/23/21 21:14 200 mg TID PRN Administration Bladder pain Potassium Chloride 20 meq 09/23/21 18:29 09/26/21 08:13 Potassium Chloride Crtab 20 Meq Tabcr PO 10/23/21 18:28 20 meq QAM BIRDIE Administration Quetiapine Fumarate 50 mg 09/21/21 21:00 09/25/21 23:44 Quetiapine Fumarate 25 Mg Tablet PO 10/21/21 20:59 50 mg HS BIRDIE Administration Saccharomyces Boulardii 250 mg 09/22/21 16:15 09/26/21 08:13 Saccharomyces Boulardii 250 Mg Cap PO 10/22/21 16:14 250 mg DAILY BIRDIE Administration Topiramate 100 mg 09/21/21 09:00 09/26/21 08:13 Topiramate 100 Mg Tab PO 10/21/21 08:59 100 mg QAM BIRDIE Administration Topiramate 200 mg 09/21/21 21:00 09/25/21 23:45 Topiramate 100 Mg Tab PO 10/21/21 20:59 200 mg PM BIRDIE Administration Past Medical History Medical History Asthma Celiac disease Cellulitis Recurrent B/L LE - on prophylactic abx (Follows with Dr. Nielson). on chronic Cephalexin and Doxy Chronic back pain Chronic kidney disease Stage III > follows Dr. Fleming Chronic obstructive pulmonary disease Emphysema Cirrhosis of liver Hx of Hep C with cirrhosis Depression History of blood transfusion History of recurrent UTI (urinary tract infection) Hx MRSA infection several yrs ago Hx of cancer of lung s/p radiation (2012), recurrence (2019 in [facility]) s/p radiation- follows with heme/onc Hx of Clostridium difficile infection on Vanco 2x/week for prophylaxis Hx of deep venous thrombosis LLE (1976) Hx of hepatitis C 2013 > "resolved" Hx of non-Hodgkin's lymphoma s/p treatment in 2013 Hydronephrosis b/l chronic hydronephrosis requiring routine stent exchanges Hyperlipidemia Insomnia Migraine Mood disorder Myelodysplasia (myelodysplastic syndrome) Diagnosed 07/09/21 by bone marrow biopsy. Being treated with Azacitidine and Procrit injections. 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 Pagan Thrombocytopenia Chronic (platelet baseline in the 40-70s over the past few months) Venous stasis dermatitis Past Family History Family History Unknown Heart disease Hypertension Mother Psoriasis Diabetes Past Surgical History Surgical History H/O bursectomy Right knee History of bone marrow biopsy History of bronchoscopy History of carpal tunnel release Left History of cystoscopy Multiple Bilateral Retrograde Pyelogram (05/27/21): MAC at [facility] History of esophagogastroduodenoscopy (EGD) History of liver biopsy History of tooth extraction History of ureter stent MULTIPLE Hx of bladder repair surgery FOR PROLAPSE Hx of colonoscopy Hx of tonsillectomy Hx of tubal ligation Social History Smoking Status: Former smoker tobacco type: cigarettes Smoking cigarettes per day: Quit 02/2011 Do You Dip or Chew Tobacco: No Smoking End Date: March 07, 2011 Hx Alcohol Use: No Hx Substance Use: No substance use type: marijuana Substance Use Type Other:: medical marijuana card Last Used Substance: Just Prior to Arrival Last Used Substance Other:: medical [facility] Physical Exam Vital Signs Last Vital Signs Temp 36.4 C L 09/26/21 14:45 Pulse 84 09/26/21 14:45 Resp 14 09/26/21 14:45 BP 108/66 09/26/21 14:45 Pulse Ox 98 09/26/21 14:45 Testing Laboratory Results 09/26/21 05:42 09/26/21 05:42 PT 11.4 Seconds (9.0-12.0) 09/20/21 17:40 INR 1.1 (0.9-1.1) 09/20/21 17:40 APTT 35.2 Seconds (21.0-31.0) H 09/20/21 17:40 Urine Color Yellow 09/22/21 18:20 Urine Appearance Cloudy (Clear) A 09/22/21 18:20 Urine pH 7.0 (4.5-7.5) 09/22/21 18:20 Ur Specific [place] 1.009 (1.000-1.030) 09/22/21 18:20 Urine Protein 2+ (Negative) H 09/22/21 18:20 Urine Glucose (UA) Negative (Negative) 09/22/21 18:20 Urine Ketones Negative (Negative) 09/22/21 18:20 Urine Nitrite Negative (Negative) 09/22/21 18:20 Ur Leukocyte Esterase 2+ (Negative) H 09/22/21 18:20 Urine WBC (Auto) >30 /hpf (0-5) H 09/22/21 18:20 Urine RBC (Auto) 10-30 /hpf (0-4) H 09/22/21 18:20 U Hyaline Cast (Auto) 1-5 /lpf (0-5) 09/22/21 18:20 U Epithel Cells (Auto) 10-20 /lpf (0-5) H 09/22/21 18:20 Urine Bacteria (Auto) Negative (Negative) 09/22/21 18:20 Blood Type B Positive 09/22/21 09:22 Antibody Screen POSITIVE A 09/22/21 09:22 09/26/21 15:12 Fungal Smear - Final Blood 09/20/21 17:45 Aerobic Blood Culture - Final Blood No growth in Aerobic bottle after 5 days. Anaerobic Blood Culture - Final No growth in Anaerobic bottle after 5 days. 09/20/21 17:40 Aerobic Blood Culture - Final Blood No growth in Aerobic bottle after 5 days. Anaerobic Blood Culture - Final No growth in Anaerobic bottle after 5 days. 09/22/21 18:20 Urine Culture - Final Urine,Clean Catch Rachelle glabrata complex 09/20/21 18:02 Urine Culture - Preliminary Urine,Clean Catch Rachelle glabrata complex
--- NOTE | 2021-09-26 21:29 | Anesthesiology Consultation ---
Date of Service September 26, 2021 Assessment & Plan (1) Encounter for pre-operative examination: Chart Review Chart Review: Acceptable Risk for Surgery and Patient NOT seen in Pre Admission Testing Consults Requested none History Surgery Operation Date: 09/26/21 18:15 Proposed Procedures p Cystoscopy, Bilateral Stent Exchange - Luis Cervantes, Height/Weight Height: 5 ft 1 in Weight: 47.2 kg Allergies Allergy/AdvReac Type Severity Reaction Status Date / Time bee venom protein (honey bee) Allergy Severe Difficulty Verified 09/21/21 02:29 Breathing adhesive Allergy Intermediate Red torn Verified 09/21/21 02:29 skin Iodinated Contrast Media Allergy Intermediate Hives Verified 09/21/21 02:29 iodine Allergy Intermediate Hives Verified 09/21/21 02:29 levofloxacin Allergy Intermediate numbness/we Verified 09/21/21 02:29 akness pregabalin Allergy Intermediate fever?/?cher Verified 09/21/21 02:29 h strawberry Allergy Intermediate Hives Verified 09/21/21 02:29 Sulfa (Sulfonamide Allergy Intermediate Rash, hives Verified 09/21/21 02:29 Antibiotics) vancomycin Allergy Intermediate Bullous Verified 09/21/21 02:29 skin rash allopurinol Allergy Mild Rash Verified 09/21/21 02:29 ceftriaxone [From Rocephin] Allergy Mild Rash Verified 09/21/21 02:29 piperacillin [From Zosyn] Allergy Mild Rash Verified 09/21/21 02:29 tazobactam [From Zosyn] Allergy Mild Rash Verified 09/21/21 02:29 venlafaxine Allergy Unknown Unknown Verified 09/21/21 02:29 gluten AdvReac Severe Celiac Dz Verified 09/21/21 02:29 = GI symptoms propoxyphene AdvReac Intermediate [employer] side Verified 09/21/21 02:29 effects Medications Home Medications Medication Instructions Recorded Confirmed Last Taken butorphanol 10 mg/mL nasal spray 1 spray INTRANASAL Q3H PRN 07/16/18 09/21/21 01/01/19 cetirizine 10 mg tablet (Zyrtec) 10 mg PO QAM 07/16/18 09/21/21 08/09/21 folic acid 1 mg tablet 1 mg PO QAM 07/16/18 09/21/21 08/09/21 magnesium oxide 400 mg PO QAM 07/16/18 09/21/2121 multivitamin 1 tab PO QAM 07/16/18 09/21/21 08/09/21 triamcinolone acetonide 0.025 % 1 applic TOPICAL BID PRN 07/16/18 09/21/21 08/09/21 topical cream vitamin B complex (B-Complex) 1 tab PO QAM 07/16/18 09/21/21 08/09/21 calcium carbonate 600 mg-vitamin 1 tab PO QPM 11/26/18 09/21/21 08/08/21 D3 20 mcg (800 unit) tablet (Caltrate with Vitamin D3) cyanocobalamin (vitamin B-12) 1,000 mcg IM MONTHLY 02/10/19 09/21/21 07/29/21 1,000 mcg/mL injection solution ferrous sulfate 325 mg (65 mg 325 mg PO QAM 02/10/19 09/21/21 08/09/21 iron) tablet (iron) psyllium husk 0.52 gram capsule 1.04 g PO QAM 08/28/19 09/21/21 08/09/21 (Metamucil) vitamin E 400 unit capsule 400 unit PO QAM 08/28/19 09/21/21 08/09/21 Medical Marijuana 1 ml SUBLINGUAL UD PRN 06/27/20 09/21/21 08/10/21 denosumab 60 mg/mL subcutaneous 60 mg SUBCUT .q 6 months ml 12/17/20 09/21/21 12/17/20 syringe (Prolia) acetaminophen 500 mg capsule 500 mg PO QID PRN 01/24/21 09/21/21 08/09/21 L.acidophilus-B.lactis-B.longum 15 1 cap PO QAM 02/03/21 09/21/21 08/09/21 billion cell capsule ergocalciferol (vitamin D2) 1,250 50,000 unit PO WEEKLY #12 cap 02/28/2109/2108/06/21 mcg (50,000 unit) capsule albuterol sulfate 90 mcg/actuation 2 puff INHALATION QID PRN #8.5 gm 04/22/21 09/21/21 05/30/21 07:00 aerosol inhaler (ProAir HFA) sertraline 50 mg tablet (Zoloft) 50 mg PO HS 05/19/21 09/21/21 08/08/21 metoprolol succinate 50 mg 25 mg PO QAM #45 tab 05/23/21 09/21/21 08/09/21 tablet,extended release 24 hr phenazopyridine 200 mg tablet 200 mg PO Q8H PRN #10 tab 05/30/21 09/21/21 Unknown (Pyridium) Auto Titrating CPAP #1 ea 06/01/21 08/23/21 Unknown CPAP Supplies #1 ea 06/01/21 08/23/21 Unknown acyclovir 400 mg tablet 400 mg PO BID #60 tab 06/21/21 09/21/21 08/09/21 methocarbamol 750 mg tablet 750 mg PO BID PRN #60 tab 06/21/21 09/21/21 08/09/21 rizatriptan 10 mg tablet 10 mg PO DAILY PRN #9 tab 06/21/21 09/21/21 Unknown topiramate 100 mg tablet (Topamax) 100 mg PO .COMPLEX 30 Days #90 tab 06/21/21 09/21/21 08/09/21 oxybutynin chloride 10 mg 10 mg PO QAM #90 tab 07/14/21 09/21/21 08/09/21 tablet,extended release 24 hr cephalexin 500 mg capsule 500 mg PO QAM #30 cap 07/15/21 09/21/21 08/09/21 mirabegron 50 mg tablet,extended 50 mg PO HS #90 tab 07/25/21 09/21/21 08/08/21 release 24 hr (Myrbetriq) hbusndbzzn-ebdlllukrpkjc-hycuycoy 1 tab PO DAILY PRN 08/10/21 09/21/21 Unknown 50 mg-325 mg-40 mg tablet (Esgic) coQ10 (ubiquinol) 200 mg capsule 200 mg PO QAM 08/10/21 09/21/21 08/09/21 doxycycline hyclate 100 mg capsule 100 mg PO QAM 08/10/21 09/21/21 08/09/21 gabapentin 400 mg capsule 400 mg PO QAM 30 Days #30 cap 08/11/21 09/21/21 Unknown (Neurontin) potassium chloride 20 mEq 20 meq PO QAM #30 tab 08/11/21 09/21/21 Unknown tablet,extended release oxycodone 5 mg tablet 5 mg PO Q4H PRN #20 tab 08/18/21 09/21/21 Unknown budesonide-formoterol HFA 80 2 puff INHALATION BID #3 inhaler 08/22/21 09/21/21 Unknown mcg-4.5 mcg/actuation aerosol inhaler (Symbicort) clonazepam 1 mg tablet 0.5 mg PO HS #30 tab 08/22/21 09/21/21 Unknown quetiapine 50 mg tablet (Seroquel) 50 mg PO HS #30 tab 08/22/21 09/21/21 Unknown enoxaparin 30 mg/0.3 mL 30 mg SUBCUT DAILY ml 09/05/21 09/21/21 Unknown subcutaneous syringe Active Medications Generic Name Dose Route Start Last Admin Trade Name Freq PRN Reason Stop Dose Admin Acetaminophen 650 mg 09/21/21 08:06 09/25/21 17:44 Acetaminophen 325 Mg Tab PO 10/21/21 08:05 650 mg Q4H PRN Administration Pain or Fever Acyclovir 400 mg 09/21/21 09:00 09/26/21 08:13 Acyclovir 400 Mg Tab PO 10/21/21 08:59 400 mg BID BIRDIE Administration Clonazepam 0.5 mg 09/21/21 21:00 09/25/21 23:44 Clonazepam 0.5 Mg Tab PO 10/21/21 20:59 0.5 mg HS BIRDIE Administration Doxycycline Hyclate 100 mg 09/21/21 17:00 09/26/21 16:48 Doxycycline Hyclate 100 Mg Cap PO 10/21/21 16:59 Not Given Q24H BIRDIE Fluticasone/Vilanterol 1 puffs 09/21/21 09:00 09/26/21 08:12 Fluticasone/Vilanterol 200/25mcg 14 Puffs/Inhaler INH 10/21/21 08:59 1 puffs DAILY BIRDIE Administration Protocol Gabapentin 400 mg 09/21/21 09:00 09/26/21 08:13 Gabapentin 400 Mg Cap PO 10/21/21 08:59 400 mg QAM BIRDIE Administration Lactated Ringer's 500 mls @ 500 mls/hr 09/26/21 16:00 09/26/21 18:03 Lr IV 10/26/21 15:59 Infused DAILY@1600,2300 BIRDIE Infusion Methocarbamol 750 mg 09/22/21 00:19 12/05/21 23:45 Methocarbamol 750 Mg Tablet PO 10/22/21 00:18 750 mg BID PRN Administration Pain Mirabegron 50 mg 09/21/21 21:00 09/25/21 23:45 Mirabegron Er 25 Mg Tab PO 10/21/21 20:59 50 mg HS BIRDIE Administration Multivitamins 1 tab 09/24/21 09:00 09/26/21 08:13 Multivitamin Tab PO 10/24/21 08:59 1 tab QAM BIRDIE Administration Ondansetron HCl 4 mg 09/21/21 08:06 09/23/21 17:51 Ondansetron Inj 2 Mg/Ml 2 Ml Vial IV 10/21/21 08:05 4 mg Q6H PRN Administration Nausea Oxybutynin Chloride 10 mg 09/21/21 09:00 09/26/21 08:12 Oxybutynin Chloride Xl 5 Mg Tabcr PO 10/21/21 08:59 10 mg QAM BIRDIE Administration Oxycodone HCl 5 mg 09/21/21 08:06 09/26/21 13:15 Oxycodone Hcl Ir 5 Mg Tab (Immediate Release) PO 10/05/21 08:05 5 mg Q4H PRN Administration pain Phenazopyridine HCl 200 mg 09/23/21 21:25 09/26/21 09:18 Phenazopyridine Hcl 200 Mg Tab PO 10/23/21 21:14 200 mg TID PRN Administration Bladder pain Potassium Chloride 20 meq 09/23/21 18:29 09/26/21 08:13 Potassium Chloride Crtab 20 Meq Tabcr PO 10/23/21 18:28 20 meq QAM BIRDIE Administration Quetiapine Fumarate 50 mg 09/21/21 21:00 09/25/21 23:44 Quetiapine Fumarate 25 Mg Tablet PO 10/21/21 20:59 50 mg HS BIRDIE Administration Saccharomyces Boulardii 250 mg 09/22/21 16:15 09/26/21 08:13 Saccharomyces Boulardii 250 Mg Cap PO 10/22/21 16:14 250 mg DAILY BIRDIE Administration Topiramate 100 mg 09/21/21 09:00 09/26/21 08:13 Topiramate 100 Mg Tab PO 10/21/21 08:59 100 mg QAM BIRDIE Administration Topiramate 200 mg 09/21/21 21:00 09/25/21 23:45 Topiramate 100 Mg Tab PO 10/21/21 20:59 200 mg PM BIRDIE Administration Past Medical History Medical History Asthma Celiac disease Cellulitis Recurrent B/L LE - on prophylactic abx (Follows with Dr. Nielson). on chronic Cephalexin and Doxy Chronic back pain Chronic kidney disease Stage III > follows Dr. Fleming Chronic obstructive pulmonary disease Emphysema Cirrhosis of liver Hx of Hep C with cirrhosis Depression History of blood transfusion History of recurrent UTI (urinary tract infection) Hx MRSA infection several yrs ago Hx of cancer of lung s/p radiation (2012), recurrence (2019 in [facility]) s/p radiation- follows with heme/onc Hx of Clostridium difficile infection on Vanco 2x/week for prophylaxis Hx of deep venous thrombosis LLE (1976) Hx of hepatitis C 2013 > "resolved" Hx of non-Hodgkin's lymphoma s/p treatment in 2013 Hydronephrosis b/l chronic hydronephrosis requiring routine stent exchanges Hyperlipidemia Insomnia Migraine Mood disorder Myelodysplasia (myelodysplastic syndrome) Diagnosed 07/09/21 by bone marrow biopsy. Being treated with Azacitidine and Procrit injections. 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 Pagan Thrombocytopenia Chronic (platelet baseline in the 40-70s over the past few months) Venous stasis dermatitis Past Family History Family History Unknown Heart disease Hypertension Mother Psoriasis Diabetes Past Surgical History Surgical History H/O bursectomy Right knee History of bone marrow biopsy History of bronchoscopy History of carpal tunnel release Left History of cystoscopy Multiple Bilateral Retrograde Pyelogram (05/27/21): MAC at [facility] History of esophagogastroduodenoscopy (EGD) History of liver biopsy History of tooth extraction History of ureter stent MULTIPLE Hx of bladder repair surgery FOR PROLAPSE Hx of colonoscopy Hx of tonsillectomy Hx of tubal ligation Social History Smoking Status: Former smoker tobacco type: cigarettes Smoking cigarettes per day: Quit 02/2011 Do You Dip or Chew Tobacco: No Smoking End Date: March 07, 2011 Hx Alcohol Use: No Hx Substance Use: No substance use type: marijuana Substance Use Type Other:: medical marijuana card Last Used Substance: Just Prior to Arrival Last Used Substance Other:: medical [facility] Physical Exam Vital Signs Last Vital Signs Temp 36.7 C 09/26/21 20:45 Pulse 90 09/26/21 20:45 Resp 16 09/26/21 20:45 BP 125/75 09/26/21 20:45 Pulse Ox 97 09/26/21 20:45 Testing Laboratory Results 09/26/21 05:42 09/26/21 05:42 PT 11.4 Seconds (9.0-12.0) 09/20/21 17:40 INR 1.1 (0.9-1.1) 09/20/21 17:40 APTT 35.2 Seconds (21.0-31.0) H 09/20/21 17:40 Urine Color Yellow 09/22/21 18:20 Urine Appearance Cloudy (Clear) A 09/22/21 18:20 Urine pH 7.0 (4.5-7.5) 09/22/21 18:20 Ur Specific [place] 1.009 (1.000-1.030) 09/22/21 18:20 Urine Protein 2+ (Negative) H 09/22/21 18:20 Urine Glucose (UA) Negative (Negative) 09/22/21 18:20 Urine Ketones Negative (Negative) 09/22/21 18:20 Urine Nitrite Negative (Negative) 09/22/21 18:20 Ur Leukocyte Esterase 2+ (Negative) H 09/22/21 18:20 Urine WBC (Auto) >30 /hpf (0-5) H 09/22/21 18:20 Urine RBC (Auto) 10-30 /hpf (0-4) H 09/22/21 18:20 U Hyaline Cast (Auto) 1-5 /lpf (0-5) 09/22/21 18:20 U Epithel Cells (Auto) 10-20 /lpf (0-5) H 09/22/21 18:20 Urine Bacteria (Auto) Negative (Negative) 09/22/21 18:20 Blood Type B Positive 09/22/21 09:22 Antibody Screen POSITIVE A 09/22/21 09:22 09/26/21 15:12 Fungal Smear - Final Blood 09/20/21 17:45 Aerobic Blood Culture - Final Blood No growth in Aerobic bottle after 5 days. Anaerobic Blood Culture - Final No growth in Anaerobic bottle after 5 days. 09/20/21 17:40 Aerobic Blood Culture - Final Blood No growth in Aerobic bottle after 5 days. Anaerobic Blood Culture - Final No growth in Anaerobic bottle after 5 days. 09/22/21 18:20 Urine Culture - Final Urine,Clean Catch Rachelle glabrata complex 09/20/21 18:02 Urine Culture - Preliminary Urine,Clean Catch Rachelle glabrata complex Other Testing Electrocardiogram Date:05/12/21 NSR at 90bpm. "Normal ECG" (Poor data quality) Chest X-Ray Date:05/31/21 Mild persistent right lung base airspace opacities suspicious for an infectious or inflammatory pneumonitis. Findings should be correlated with patient history to exclude aspiration. Emphysema with unchanged linear areas consolidation within the upper lobes. Sclerotic lesions of the right anterior second and third ribs redemonstrated.Patient seen by pulmonary 06/01/21. Echocardiogram Date:05/10/21 EF: 55 to 60% LV Function: normal RWMA: + none Other Findings: no LVH Valvular Disease: + MR (Mild) Borderline left atrial enlargement. Mild TR. Other Testing Carotid doppler (05/09/21):No evidence of hemodynamically significant carotid stenosis. Mild atherosclerosis. Holter monitor (05/19/20):rhythm predominantly SR. Average heart rate 75 bpm. Minimum HR 43 bpm. Max HR 129 bpm. No significant pauses or AV blocks noted. Very rare isolated APD's noted no complex atrial arrhythmia. Rare isolated VPD's and couplets noted. No complex ventricular arrhythmia.
[2021-09-26] MEDS ORDERED: CASPOFUNGIN 50 MG in SODIUM CHLORIDE 0.9% 250 ML IV STA (21:34)
--- NOTE | 2021-09-26 21:50 | Billing Data ---
Date of Service September 26, 2021 Coding Level of Care Code 88154 Initial Inpt Care Lvl 3
[2021-09-26] MEDS ORDERED: PROPOFOL IV EMULSION 10 MG/ML 20 ML VIAL IV ONE ×2 (21:58→22:32)
[2021-09-26] MEDS ORDERED: fentaNYL citrate 100 MCG/2 ML VIAL ONE (22:12)
[2021-09-26] MEDS ORDERED: IOTHALAMATE MEGLUMINE II 17.2% 250 ML VIAL INSTIL ONE (22:30)
[2021-09-26] MEDS ORDERED: ONDANSETRON INJ 2 MG/ML 2 ML VIAL ONE (22:32)
--- NOTE | 2021-09-26 22:45 | Operative Report ---
PG Post Operative Report Pre & Post Diagnosis Operation Date: 09/26/21 18:15 Pre-Op Diagnosis: Funguria, Neutropenic Fever Post-Op Diagnosis: Funguria, Neutropenic Fever I identified the patient and participated in the time-out.: Yes Procedure Operation Date: 09/26/21 18:15 Actual Procedures p Cystoscopy with Bilateral retrograde pyelogram and Stent Exchange/catheter placement - Luis Cervantes DO Surgeon Luis Cervantes, II, DO Projector Operator None Estimated Blood Loss 1 Findings Consistent with Post-Op Diagnosis Stent exchanged and placed in good position. Urine aspirated from left kidney Bilateral ureteral catheter placed. Specimens None Drains 4.8 Fr x 24 Stent Bilateral 5 Fr Open ended ureteral catheter bilateral 16 Fr hinojosa Anesthesia Type MAC Complications none Disposition Disposition: Recovery Room Indications Patient with obstruction with chronic stent changes. Acutely dealing with funguria and recent neutropenic fever. Plan for urgent/emergent procedure. Risks and benefits discussed at length. Description of Procedure Patient was consented and brought back to the operating room. Patient was placed under anesthesia in the supine position and moved to the dorsal lithotomy position. Caspofungin was given preoperatively. Patient was prepped and draped in the regular sterile fashion. A time out was completed. A 30degree Cystoscope was placed into the bladder and the entire bladder was examined. The UO's were identified. Starting on the left, the stent was grasped and partially removed. A wire was then placed and the stent fully removed. The UO was cannulized over the wire with a dual lumen catheter and a retrograde pyelogram was completed. The left renal pelvis was aspirated. The wire was maintained and the catheter remained in place. With the wire in place, a 4.8 Fr Double J stent was placed. It was confirmed with fluoroscopy. This was repeated for the right. There was no aspiration on the right. Otherwise, the stent was grasped, a catheter was placed, a retrograde pyelogram was completed, and the new stent was placed. With the stents in place, the bladder was emptied. Patient had bilateral stents as well as bilateral ureteral catheters which were capped. The scope was removed. A 16 Fr hinojosa catheter was placed. The patient was cleaned, aroused from anesthesia, and transferred to the pacu in stable condition having tolerated the procedure well with no complications. I was present and participated in all aspects of the procedure. The patient will be monitored in the PACU until transferred. Plan to maintain stents likely 2-3 months. Will maintain catheter over night in case renal pelvis/bladder instillation is needed. If not, catheters can be removed in morning. Hinojosa catheter over night with plan to remove tomorrow morning as well. Monitor for change or worsening of issues. I attest to the content of the Intraoperative Record and any orders documented therein. Any exceptions are noted below.
[2021-09-26] MEDS ORDERED: ATROPINE SULFATE 0.1 MG/ML 10ML SYR IV PRN (22:53)
[2021-09-26] MEDS ORDERED: fentaNYL citrate 100 MCG/2 ML VIAL IV PRN (22:53)
[2021-09-26] MEDS ORDERED: ePHEDrine sulfate 50 MG/ML AMP IV PRN (22:53)
--- NOTE | 2021-09-26 23:20 | Anesthesiology Progress Note ---
Date of Service September 26, 2021 Anesthesia Post Procedure Vital Signs Vital Signs: Temp Pulse Pulse Pulse Resp BP BP 09/26/21 23:05 36.7 C 86 18 111/54 L 09/26/21 22:55 88 22 111/54 L 09/26/21 22:46 36.2 C L 95 H 15 102/38 L 09/26/21 20:45 36.7 C 90 16 125/75 09/26/21 14:45 36.4 C L 84 14 108/66 09/26/21 07:14 36.7 C 115 H 16 117/65 09/26/21 00:06 36.5 C 109 H 18 137/73 Pulse Ox 09/26/21 23:05 95 09/26/21 22:55 97 09/26/21 22:46 94 09/26/21 20:45 97 09/26/21 14:45 98 09/26/21 07:14 97 09/26/21 00:06 98 Pain Intensity Left Head: Pain Intensity: 8 Bilateral Generalized: Pain Intensity: 8 Transfer of Care Handoff Completed per policy Notes Mental Status: alert / awake / arousable and participated in evaluation Nausea / Vomiting: adequately controlled Pain: adequately controlled Airway Patency, RR, SpO2: stable & adequate BP & HR: stable & adequate Hydration State: stable & adequate Anesthetic Complications: no major complications apparent and Pt Satisfied with anesthetic care
[2021-09-27] MEDS: clonazePAM 0.5 MG TAB PO SCH ×2 (00:27→22:56)
[2021-09-27] MEDS: MIRABEGRON ER 25 MG TAB PO SCH ×2 (00:28→23:16)
[2021-09-27] MEDS: TOPIRAMATE 100 MG TAB PO SCH ×3 (00:29→23:15)
[2021-09-27] MEDS: QUEtiapine FUMARATE 25 MG TABLET PO SCH ×2 (00:29→23:15)
[2021-09-27] MEDS: PHENAZOPYRIDINE HCL 200 MG TAB PO PRN ×3 (00:33→20:14)
[2021-09-27] MEDS: SERTRALINE HCL 50 MG TABLET PO SCH ×2 (01:25→23:16)
[2021-09-27] MEDS: oxyCODONE HCL IR 5 MG TAB (IMMEDIATE RELEASE) PO PRN ×4 (07:17→23:03)
--- NOTE | 2021-09-27 08:23 | Urology Progress Note ---
Date of Service September 27, 2021 Assessment & Plan (1) Neutropenic fever: (2) Acute UTI (urinary tract infection): (3) S/P ureteral stent placement: Plan: 66 yo F with chronic b/l ureteral stents admitted with neutropenic fever and acute fungal UTI. - Pt POD#1 s/p Cystoscopy with Bilateral retrograde pyelogram and Stent Exchange/catheter placementwith Dr. Cervantes - Afebrile, lab work reviewed - creatinine 0.78, WBC 3.50, Hgb 8.6 - Intraop kidney urine aspirate: gram stain- few WBCs seen, cult pending; fungal- no yeast or hyphae seen, cult pending - Fungal smear blood direct- no yeast of hyphae seen, cult pending - Currently on IV Caspofungin and doxycycline - If Amphotericin B is to be initiated per primary team/ID, urology recommends via instillation only - Plan to maintain [place] and ureteral catheters for now pending discussion with hospitalists/treatment plan - Continue antibiotics, supportive care and management per primary service - Will continue to follow closely with primary team Admission and Anticipated Discharge Date Admission Date: September 21, 2021 Subjective Pt POD#1 s/p Cystoscopy with Bilateral retrograde pyelogram and Stent Exchange/catheter placementwith Dr. Cervantes. Patient seen and examined at bedside this AM. She is awake, alert, and sitting up in bed eating breakfast. No acute issues overnight. Reports mild generalized abdominal and flank discomfort. Tolerating regular diet, no nausea or vomiting. [place] catheter intact, patent and draining dylan/orange tinged urine, scant sediment noted. On Pyridium. Tolerating [place] catheter. Notes some leaking of the ureteral catheters, which is causing mild bother. No fever or chills. Review of Systems Constitutional: as per Subjective / HPI Gastrointestinal: as per Subjective / HPI Genitourinary: as per Subjective / HPI Physical Exam Constitutional: + thin; no acute distress nontoxic Respiratory: normal respiratory effort and able to speak in complete sentences; no respiratory distress and no labored breathing Cardiovascular: Extremities: no pedal edema Gastrointestinal (Abdomen): Inspection/Auscultation: abdomen normal to inspection; abdomen not distended Percussion/Palpation: + abdomen tender (mildly tender to palpation generalized) and abdomen soft; no guarding Neurologic: moves all extremities and awake Psychiatric: Orientation: alert and oriented x 3 Genitourinary: no CVA tenderness Results & Data ([facility]) Vital Signs (Past 12 Hours) Vital Signs Temp Pulse Pulse Pulse Resp BP Pulse Ox 09/27/21 07:00 36.5 C 93 H 16 104/62 97 09/27/21 02:56 97 H 17 97 09/27/21 02:25 36.4 C L 103 H 16 101/63 97 09/27/21 01:25 36.5 C 99 H 110/55 L 95 09/27/21 00:25 36.6 C 73 16 111/64 96 09/26/21 23:55 36.6 C 68 18 116/65 98 09/26/21 23:25 36.5 C 73 16 110/68 97 09/26/21 23:15 72 15 107/56 L 95 09/26/21 23:05 36.7 C 86 18 111/54 L 95 09/26/21 22:55 88 22 111/54 L 97 09/26/21 22:46 36.2 C L 95 H 15 102/38 L 94 09/26/21 20:45 36.7 C 90 16 125/75 97 PG Care Time/CCT Total # of Minutes Spent Total Time Spent with Patient: Total time spent is greater than 50% in coordination of care (as documented) at patient's floor/unit and/or counseling patient: Coding Level of Care Code 49053 Subseq Hosp Care Lvl 2 Diagnoses Neutropenic fever D70.9; R50.81 Acute UTI (urinary tract infection) N39.0 S/P ureteral stent placement Z96.0
--- NOTE | 2021-09-27 08:32 | Fluoroscopy Report ---
FL retrograde includes kub CLINICAL HISTORY: CYSTO, STENT. Left-sided COMPARISON STUDY: 05/30/2021 FLUOROSCOPY TIME: 1 minute 24 seconds. FLUOROSCOPIC IMAGES: 2 FINDINGS: Compared to previous examination, double-J ureteral stents are in place. Previously identif ied hydronephrosis on the left is no longer seen. IMPRESSION: Previously identified left-sided hydronephrosis is not seen on the current study. ACT 112: Negative or not required by law. Electronically signed by: Holland Rodgers M.D. 09/27/2021 8:30 AM
[2021-09-27] MEDS: FLUTICASONE/VILANTEROL 200/25MCG 14 PUFFS/INHALER INH SCH (08:53)
[2021-09-27] MEDS: ACYCLOVIR 400 MG TAB PO SCH ×2 (08:54→22:57)
[2021-09-27] MEDS: SACCHAROMYCES BOULARDII 250 MG CAP PO SCH (08:54)
[2021-09-27] MEDS: GABAPENTIN 400 MG CAP PO SCH (08:54)
[2021-09-27] MEDS: MULTIVITAMIN TAB PO SCH (08:54)
[2021-09-27] MEDS: OXYBUTYNIN CHLORIDE XL 5 MG TABCR PO SCH (08:54)
[2021-09-27] MEDS: METHOCARBAMOL 750 MG TABLET PO PRN ×2 (08:55→22:57)
[2021-09-27] MEDS: POTASSIUM CHLORIDE CRTAB 20 MEQ TABCR PO SCH (08:58)
[2021-09-27 09:54] LABS: BUN Creatinine Ratio 21.8 (10-20); Calcium 7.6 mg/dl (8.5-10.1); Creatinine Clr Calc Pharmacy 52.9 ml/min; Est GFR (African American) 91.8 ml/min; Est GFR (Non-African American) 79.2 ml/min; Potassium 4.3 mmol/L (3.5-5.1)
[2021-09-27 10:58] LABS: Hematocrit (blood only) 26.7 % (37-47); Hemoglobin 8.6 g/dL (12.0-16.0); Mean Corpuscular Hemoglobin 27.3 pg (25-34); Mean Corpuscular Hgb Conc 32.2 g/dL (32-36); Mean Corpuscular Volume 84.8 fL (80-100); Nucleated RBC # (auto) 0.02 K/uL (0-0); Nucleated RBC % (auto) 0.7 %; Platelet Count 13 K/uL (130-400); RDW Coefficient of Variation 17.6 % (11.5-14.5); RDW Standard Deviation 52.8 fL (36.4-46.3); Red Blood Count 3.15 M/uL (4.2-5.4)
[2021-09-27 11:19] LABS: ALC (manual) 0.99 K/uL (1.2-3.4); Blast # (manual) 0.03 K/uL (0-0); Blast Cells % (manual) 0.9 %; Lymphocytes # (manual) 0.99 K/uL (1.2-3.4); Lymphocytes % (manual) 28.3 %; Monocytes # (manual) 0.25 K/uL (0.11-0.59); Monocytes % (manual) 7.1 %; Myelocytes # (manual) 0.03 K/uL (0-0); Myelocytes % (manual) 0.9 %; Neutrophils % (manual) 62.8 %
[2021-09-27 11:20] LABS: Anisocytosis Present; Schistocytes Occasional
[2021-09-27] MEDS ORDERED: CYANOCOBALAMIN 1000 MCG/ML VIAL IM SCH (14:30)
[2021-09-27] MEDS ORDERED: EPOETIN ALFA 40,000 UNITS/ML VIAL SQ SCH (14:30)
[2021-09-27] MEDS: DOXYCYCLINE HYCLATE 100 MG CAP PO SCH (17:07)
--- NOTE | 2021-09-27 19:31 | Hospitalist Progress Note ---
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 Patient had reached out to her oncologists office in regards to her symptoms and fevers and was urged to come to the ED for evaluation as her last ANC was 660. Covid-19 -, flu A/B also negative *Possible sepsis syndromein immunocompromised patient which seems to be related to funguria now felt to be neutropenic fever, Rachelle UTI, all blood cultures show no growth and no fever for 5 days Neutropenic Fever -Last chemo in July per patient-has only received 1 dose of5-azacitidine so far and has had persistent pancytopenia since then related to her MDS and chemo -no longer neutropenic--patient has since defervesced on 09/22 -initially on Aztreonam and Linezolid, stopped since blood cultures showing NG -Patient does note history of urine related infections secondary to her urinary stents -Urine culture now growing Rachelle glabrata - indwelling ureteral stents since May 2021, past due to come out but given her underlying chronic comorbidities, has not been stable to do so -Started IV caspofungin 09/22 -ID consulted who recommended transition to amphotericin B IV -Fungal blood cultures obtained (pending) -Urology consulted and did subsequently exchange ureteral stents on the evening of 09/26 and placed ureteral catheters to proceed with amphotericin bladder instillation given concern for IV amphotericin in this chronically ill patient -Have discussed this in great detail with both urology, and infectious disease. Infectious disease recommending 2 weeks of IV amphotericin. Urology recommending bladder/ureteral installation for 3 to 5 days and avoiding IV amphotericin given its risk of toxicity in this chronically ill patient -since patient is s/p stent exchange, urology feels comfortable with transitioning to amphotericin bladder/ureteral instillation per hour hospital protocol and watching patient clinically -Plan is for installation for total of 3 to 5 days pending clinical improvement. At that time, her culture sensitivities (fungal) should be back. Updated literature does suggest 3 to 5 days of treatment for fungal ball -Patient initially with mild neutropenia; however, this has since resolved. Okay to DC neutropenic precautions (WBC count currently 3.5) -Continue prophylactic home Doxycycline and Acyclovir (2) Acute UTI (urinary tract infection): Plan: With bilateral indwelling ureteral stents Growing yeast in the urine-she has grown Rachelle not albicans and Rachelle glabrata in the past Blood cultures without yeast (specific fungal blood culture ordered and pending) Plan is for amphotericin bladder instillation as outlined above Awaiting fungal sensitivities on initial urine culture ID and Urology consulted-- see above (see recommendation) (3) Pancytopenia: Plan: *Chemotherapy induced pancytopenia Hemoglobin was down to 6.6 and transfused 2 units PRBCs on 09/23 Unfortunately she has developed antibodies in her blood- blood products have to come from [place] Hb is > 9, platelets are low at 13k, no bleeding or bruising, would not provide any additional platelet transfusions unless patient plans to have surgery or platelet count drops below 10 -received Neupogen 480 SQ on 09/22 with additional dose on 09/26 Additional dose today as recommended by Dr. Bloom -Is due for Procrit and vitamin B12 today. Discussed with oncology clinic regarding doses. Will give both of these today Patient is transfusion dependent at this point (4) Myelodysplasia (myelodysplastic syndrome): Plan: *immunocompromised patient in patient with MDS under going Chemo Secondary myelodysplasia due to previous treatment for lymphoma Currently undergoing chemotherapy with 5azacitidine which is caused her significant pancytopenia as above (5) Hx of Clostridium difficile infection: Plan: With a history of C. difficile at least once or twice in the past Typically takes vancomycin twice a week Was on vancomycin 125 mg p.o. once daily while on IV antibiotic therapy IV antibiotic therapy has since been stopped thus will DC vancomycin Monitor for development of diarrhea (6) S/P ureteral stent placement: Plan: With bilateral indwelling ureteral stents for chronic hydronephrosis Last exchanged in the beginning of May Is overdue for an exchange but has been unable to get it done due to severe pancytopenia Urology has since been consulted and plan is for ureteral stent exchange today as outlined above (7) COPD (chronic obstructive pulmonary disease): Plan: -Continue albuterol PRN -Continue home Symbicort (8) Chronic kidney disease, stage III (moderate): Plan: Stable -Avoid nephrotoxins -renally dose meds when appropriate -follow BMP (9) Prothrombin [id number] mutation: Plan: Previously on Lovenox lifelong, but has been held due to significant thrombocytopenia (10) Hypocalcemia: Plan: replaced and resolved (11) Obstructive sleep apnea: Plan: Continue supplemental O2 at bedtime (12) Migraine: Plan: -Continue home Topamax for prophylaxis (13) Urge and stress incontinence: Plan: Continue Myrbetriq and oxybutynin (14) Depression: Plan: With anxiety -Continue home clonazepam -Continue home Seroquel -Zoloft was on hold given treatment with linezolid upon admission but this has since been stopped. Okay to resume Zoloft Plan: DVT prophylaxis-add HOMAR hose, avoid SCDs due to thrombocytopenia and risk of trauma. Avoid anticoagulation otherwise due to severe thrombocytopenia and anemia Admission and Anticipated Discharge Date Admission Date: September 21, 2021 Subjective Patient seen on daily rounds today. Overall, vocalizes no significant c/c at this time. denies F/C, CP, SOB, abd pain, N/V. is s/p ureteral stent exchange with ureteral catheters (with plan for amphotericin bladder irrigation) Review of Systems Review of Systems: All systems reviewed and are unremarkable except as noted in HPI and below Denies fevers, chills, headache, nasal congestion, sore throat, cough, chest pain, shortness of breath, palpitations, orthopnea, PND, abdominal pain, nausea, vomiting, diarrhea, constipation, hematuria, back pain, joint pain or swelling, easy bruising or bleeding, skin lesions or rashes. Physical Exam Physical Exam: General: Resting comfortably in her hospital bed. Ap pears chronically but not acutely il l. NAD. HEENT: He ad is AT/NC buccal mucosa is moist a nd pink Neck: No J VD. Negative hepa tojugular reflex C ardiac: RRR withou t M/G/R Lungs: CTA without W/R/R Abd omen: Normoactive X4. Soft and nont orquidea in all quadr ants. Extremities: No peripheral clu bbing cyanosis or edema Neuro: A&O X 4 cranial nerves I I through XII are grossly intact no focal neuro defici ts Skin: No obviou s skin lesions or rashes Psych: Appr opriate affect ple asant and cooperat benjie Results & Data Results & Data ([facility]) Vital Signs (Past 12 Hours) Vital Signs Temp Pulse Resp BP Pulse Ox 09/27/21 14:59 36.5 C 70 16 131/68 96 09/27/21 11:09 36.9 C 74 16 124/64 95 PG Care Time/CCT Total # of Minutes Spent Total Time Spent with Patient: Total time spent is greater than 50% in coordination of care (as documented) at patient's floor/unit and/or counseling patient: Coding Level of Care Code 07338 Subseq Hosp Care Lvl 3 Diagnoses Neutropenic fever D70.9; R50.81
[2021-09-27] MEDS: AMPHOTERICIN B 50 MG in WATER, STERILE 1,000 ML IR SCH (20:08)
[2021-09-28 06:42] LABS: Albumin Level 3.1 gm/dl (3.4-5.0); Calcium 8.3 mg/dl (8.5-10.1); Creatinine Clr Calc Pharmacy 45.3 ml/min; Est GFR (African American) 76.2 ml/min; Est GFR (Non-African American) 65.7 ml/min; Potassium 4.6 mmol/L (3.5-5.1)
[2021-09-28 06:45] LABS: Albumin Globulin Ratio 0.9 (0.9-2); Bilirubin,Total 0.7 mg/dl (0.2-1); Globulin 3.4 gm/dl (2.5-4.0); Total Protein 6.5 gm/dl (6.4-8.2)
[2021-09-28 06:59] LABS: Mean Corpuscular Hgb Conc 32.9 g/dL (32-36); Nucleated RBC # (auto) 0.07 K/uL (0-0); Nucleated RBC % (auto) 1.7 %; Platelet Count 12 K/uL (130-400)
[2021-09-28 07:00] LABS: ALC (manual) 1.24 K/uL (1.2-3.4); ANC (manual) 2.62 K/uL (1.4-6.5); Blast # (manual) 0.04 K/uL (0-0); Blast Cells % (manual) 0.9 %; Eosinophils # (manual) 0.04 K/uL (0-0.5); Eosinophils % (manual) 0.9 %; Lymphocytes # (manual) 1.24 K/uL (1.2-3.4); Lymphocytes % (manual) 29.6 %; Monocytes # (manual) 0.26 K/uL (0.11-0.59); Monocytes % (manual) 6.1 %; Neutrophils # (manual) 2.62 K/uL (1.4-6.5); Neutrophils % (manual) 62.5 %
[2021-09-28 07:25] LABS: Hematocrit (blood only) 29.2 % (37-47); Hemoglobin 9.6 g/dL (12.0-16.0); Mean Corpuscular Hemoglobin 27.4 pg (25-34); Mean Corpuscular Volume 83.2 fL (80-100); Platelet Estimate SIGNIFIC DECREASED (Normal); Poikilocytosis Present; RDW Coefficient of Variation 17.7 % (11.5-14.5); RDW Standard Deviation 52.4 fL (36.4-46.3); Red Blood Count 3.51 M/uL (4.2-5.4); Schistocytes Occasional; White Blood Count 4.19 K/uL (4.8-10.8)
--- NOTE | 2021-09-28 08:34 | Urology Progress Note ---
Date of Service September 28, 2021 Assessment & Plan (1) Neutropenic fever: (2) Acute UTI (urinary tract infection): (3) S/P ureteral stent placement: Plan: 66 yo F with chronic b/l ureteral stents admitted with neutropenic fever and acute fungal UTI - Pt POD#2 s/p Cystoscopy with Bilateral retrograde pyelogram and Stent Exchange/catheter placementwith Dr. Cervantes - Afebrile, lab work reviewed - creatinine 0.91, WBC 4.19, Hgb 9.6 - Intraop kidney urine aspirate - pending; fungal blood cultures are pending - Ureteral catheters fell out yesterday, O[place]fe exchanged to 3-way catheter - Amphotericin B via bladder irrigation was initiated last night - Recommend continue Amphotericin B for 3-5 days, follow pending fungal cultures - Maintain Okeefe catheter at this time for irrigations, plan for voiding trial prior to discharge - Continue antibiotics, supportive care and management per primary service/ID - Plan to follow-up outpatient with urology service to arrange next bilateral stent exchange Thank you for allowing us to participate in the acute care of Ms. Duron. Please reconsult us with additional questions, concerns or changes in patient status. Admission and Anticipated Discharge Date Admission Date: September 21, 2021 Supervising Physician Co-Signing Physician Notes Discussed patient with VENKATESH. Agree with plan. Subjective Pt POD#2 s/p Cystoscopy with Bilateral retrograde pyelogram and Stent Exchange/catheter placementwith Dr. Cervantes. Patient seen and examined at bedside this AM. She is awake, alert, and sitting up in bed eating breakfast. No acute issues overnight. Reports mild generalized bladder and flank discomfort. Tolerating regular diet, notes occasional nausea, but not at present and no vomiting. BM this morning. Patient's ureteral catheters fell out yesterday. O[place]fe catheter was exchanged to 3-way. Amphotericin B is infusing via bladder instillation. Okeefe catheter intact, patent and draining bright yellow urine, scant sediment noted. Tolerating Okeefe catheter. Mild dysuria, no hematuria. No fever or chills. Review of Systems Constitutional: as per Subjective / HPI Gastrointestinal: as per Subjective / HPI Genitourinary: as per Subjective / HPI Physical Exam Constitutional: + thin; no acute distress nontoxic Respiratory: normal respiratory effort and able to speak in complete sentences; no respiratory distress and no labored breathing Cardiovascular: Extremities: no pedal edema Gastrointestinal (Abdomen): Inspection/Auscultation: abdomen normal to inspection; abdomen not distended Percussion/Palpation: + abdomen tender (mildly tender to palpation generalized lower abdomen) and abdomen soft; no guarding Neurologic: moves all extremities and awake Psychiatric: Orientation: alert and oriented x 3 Genitourinary: Mild tenderness to palpation on bilateral flanks Okeefe catheter intact, patent and draining yellow urine with scant sediment; Amphotericin B infusing via bladder Results & Data ([facility]) Vital Signs (Past 12 Hours) Vital Signs Temp Pulse Pulse Pulse Resp BP Pulse Ox 09/28/21 08:13 37.2 C 85 18 125/66 95 09/28/21 03:10 84 16 97 09/27/21 23:50 107 H 14 96 09/27/21 22:55 36.7 C 78 16 121/63 95 PG Care Time/CCT Total # of Minutes Spent Total Time Spent with Patient: Total time spent is greater than 50% in coordination of care (as documented) at patient's floor/unit and/or counseling patient: Coding Level of Care Code 35352 Subseq Hosp Care Lvl 2 Diagnoses Neutropenic fever D70.9; R50.81 S/P ureteral stent placement Z96.0 Acute UTI (urinary tract infection) N39.0
[2021-09-28] MEDS: oxyCODONE HCL IR 5 MG TAB (IMMEDIATE RELEASE) PO PRN ×3 (10:45→20:05)
[2021-09-28] MEDS: TOPIRAMATE 100 MG TAB PO SCH ×2 (10:46→22:51)
[2021-09-28] MEDS: ACYCLOVIR 400 MG TAB PO SCH ×2 (10:46→22:53)
[2021-09-28] MEDS: GABAPENTIN 400 MG CAP PO SCH (10:47)
[2021-09-28] MEDS: SACCHAROMYCES BOULARDII 250 MG CAP PO SCH (10:47)
[2021-09-28] MEDS: PHENAZOPYRIDINE HCL 200 MG TAB PO PRN ×2 (10:48→20:06)
[2021-09-28] MEDS: METHOCARBAMOL 750 MG TABLET PO PRN ×2 (10:50→22:48)
[2021-09-28] MEDS: FLUTICASONE/VILANTEROL 200/25MCG 14 PUFFS/INHALER INH SCH (10:51)
[2021-09-28] MEDS: MULTIVITAMIN TAB PO SCH (11:43)
[2021-09-28] MEDS: POTASSIUM CHLORIDE CRTAB 20 MEQ TABCR PO SCH (11:43)
[2021-09-28] MEDS: OXYBUTYNIN CHLORIDE XL 5 MG TABCR PO SCH (11:43)
[2021-09-28] MEDS: DOXYCYCLINE HYCLATE 100 MG CAP PO SCH (17:11)
--- NOTE | 2021-09-28 17:28 | Hospitalist Progress Note ---
Date of Service September 28, 2021 Assessment & Plan (1) Neutropenic fever: Plan: (1) Neutropenic fever: Plan: Patient is a 66 year old female with PMHx Myelodysplastic syndrome on chemotherapy, SACHA, urge and stress incontinence, COPD emphysema, Squamous Cell Lung cancer, lymphoma, prothrombin [id number] Factor 2 mutation, Celiac disease, CVA, that presents with concerns of sore throat, runny nose, and a fever of 100.8F at home. Patient had reached out to her oncologists office in regards to her symptoms and fevers and was urged to come to the ED for evaluation as her last ANC was 660. Covid-19 -, flu A/B also negative *Possible sepsis syndromein immunocompromised patient which seems to be related to funguria now felt to be neutropenic fever, Rachelle UTI, all blood cultures show no growth and no fever for 5 days Neutropenic Fever -Last chemo in July per patient-has only received 1 dose of5-azacitidine so far and has had persistent pancytopenia since then related to her MDS and chemo -no longer neutropenic--patient has since defervesced on 09/22 -initially on Aztreonam and Linezolid, stopped since blood cultures showing NG -Patient does note history of urine related infections secondary to her urinary stents -Urine culture now growing Rachelle glabrata - indwelling ureteral stents since May 2021, past due to come out but given her underlying chronic comorbidities, has not been stable to do so -Started IV caspofungin 09/22 -ID consulted who recommended transition to amphotericin B IV -Fungal blood cultures obtained (pending) -Urology consulted and did subsequently exchange ureteral stents on the evening of 09/26 and placed ureteral catheters to proceed with amphotericin bladder instillation given concern for IV amphotericin in this chronically ill patient -Have discussed this in great detail with both urology, and infectious disease. Infectious disease recommending 2 weeks of IV amphotericin. Urology recommending bladder/ureteral installation for 3 to 5 days and avoiding IV amphotericin given its risk of toxicity in this chronically ill patient -since patient is s/p stent exchange (on 09/26), urology feels comfortable with transitioning to amphotericin bladder/ureteral instillation per hour hospital protocol and watching patient clinically (started on 09/27) -Plan is for installation for total of 3 to 5 days pending clinical improvement. At that time, her culture sensitivities (fungal) should be back. Updated literature does suggest 3 to 5 days of treatment for fungal ball -Patient initially with mild neutropenia; however, this has since resolved. Okay to DC neutropenic precautions (WBC count currently 4.19) -Continue prophylactic home Doxycycline and Acyclovir (2) Acute UTI (urinary tract infection): Plan: With bilateral indwelling ureteral stents (stent exchange done 09/26) Growing yeast Rachelle glabrata--> final sensitivities pending Blood cultures without yeast (specific fungal blood culture ordered and pending) Plan is for amphotericin bladder instillation as outlined above Awaiting fungal sensitivities on initial urine culture ID and Urology consulted-- see above (see recommendation) (3) Pancytopenia: Plan: *Chemotherapy induced pancytopenia Hemoglobin was down to 6.6 and transfused 2 units PRBCs on 09/23 Unfortunately she has developed antibodies in her blood- blood products have to come from [place] [facility] Hb is > 9, platelets are low at 13k, no bleeding or bruising, would not provide any additional platelet transfusions unless patient plans to have surgery or platelet count drops below 10 -received Neupogen 480 SQ on 09/22 and 09/26 Additional dose today as recommended by Dr. Bloom -Is due for Procrit and vitamin B12 today. Discussed with oncology clinic regarding doses. Will give both of these today Patient is transfusion dependent at this point (4) Myelodysplasia (myelodysplastic syndrome): Plan: *immunocompromised patient in patient with MDS under going Chemo Secondary myelodysplasia due to previous treatment for lymphoma Currently undergoing chemotherapy with 5azacitidine which is caused her significant pancytopenia as above (5) Hx of Clostridium difficile infection: Plan: With a history of C. difficile at least once or twice in the past Typically takes vancomycin twice a week Was on vancomycin 125 mg p.o. once daily while on IV antibiotic therapy IV antibiotic therapy has since been stopped thus vancomycin also stopped Monitor for development of diarrhea (6) S/P ureteral stent placement: Plan: With bilateral indwelling ureteral stents for chronic hydronephrosis Last exchanged in the beginning of May Is overdue for an exchange but has been unable to get it done due to severe pancytopenia Urology has since been consulted and plan is for ureteral stent exchange today as outlined above (7) COPD (chronic obstructive pulmonary disease): Plan: -Continue albuterol PRN -Continue home Symbicort (8) Chronic kidney disease, stage III (moderate): Plan: Stable -Avoid nephrotoxins -renally dose meds when appropriate -follow BMP (9) Prothrombin [id number] mutation: Plan: Previously on Lovenox lifelong, but has been held due to significant thrombocytopenia (10) Hypocalcemia: Plan: replaced and resolved (11) Obstructive sleep apnea: Plan: Continue supplemental O2 at bedtime (12) Migraine: Plan: -Continue home Topamax for prophylaxis (13) Urge and stress incontinence: Plan: Continue Myrbetriq and oxybutynin (14) Depression: Plan: With anxiety -Continue home clonazepam -Continue home Seroquel -Zoloft was on hold given treatment with linezolid upon admission but this has since been stopped. Okay to resume Zoloft Plan: DVT prophylaxis-add HOMAR hose, avoid SCDs due to thrombocytopenia and risk of trauma. Avoid anticoagulation otherwise due to severe thrombocytopenia and anemia Admission and Anticipated Discharge Date Admission Date: September 21, 2021 Subjective Patient seen on daily rounds today. Vocalizes no significant complaints or concerns. Denies fevers, chills, chest pain, shortness of breath, abdominal pain, nausea or vomiting. Her only complaint is the Okeefe catheter is uncomfortable. Review of Systems Review of Systems: All systems reviewed and are unremarkable except as noted in HPI and below Denies fevers, chills, headache, nasal congestion, sore throat, cough, chest pain, shortness of breath, palpitations, orthopnea, PND, abdominal pain, nausea, vomiting, diarrhea, constipation, dysuria, hematuria, frequency, back pain, joint pain or swelling, easy bruising or bleeding, skin lesions or rashes. Physical Exam Physical Exam: General: Resting comfortably in her hospital bed. Appears chronically but not acutely ill. NAD. HEENT: Head is AT/NC buccal mucosa is moist and pink Neck: No JVD. Negative hepatojugular reflex Cardiac: RRR without M/G/R Lungs: CTA without W/R/R Abdomen: Normoactive X4. Soft and nontender in all quadrants. Extremities: No peripheral clubbing cyanosis or edema Neuro: A&O X4 cranial nerves II through XII are grossly intact no focal neuro deficits Skin: No obvious skin lesions or rashes Psych: Appropriate affect pleasant and cooperative Results & Data Results & Data ([facility]) Vital Signs (Past 12 Hours) Vital Signs Temp Pulse Pulse Resp BP Pulse Ox 09/28/21 15:34 37.1 C 102 H 16 122/61 95 09/28/21 08:13 37.2 C 85 18 125/66 95 PG Care Time/CCT Total # of Minutes Spent Total Time Spent with Patient: Total time spent is greater than 50% in coordination of care (as documented) at patient's floor/unit and/or counseling patient: Coding Level of Care Code 21358 Subseq Hosp Care Lvl 2 Diagnoses Neutropenic fever D70.9; R50.81
[2021-09-28] MEDS: AMPHOTERICIN B 50 MG in WATER, STERILE 1,000 ML IR SCH (18:37)
[2021-09-28] MEDS: ONDANSETRON INJ 2 MG/ML 2 ML VIAL IV PRN (18:37)
[2021-09-28] MEDS: clonazePAM 0.5 MG TAB PO SCH (22:48)
[2021-09-28] MEDS: MIRABEGRON ER 25 MG TAB PO SCH (22:50)
[2021-09-28] MEDS: SERTRALINE HCL 50 MG TABLET PO SCH (22:51)
[2021-09-28] MEDS: QUEtiapine FUMARATE 25 MG TABLET PO SCH (22:52)
[2021-09-29] MEDS: oxyCODONE HCL IR 5 MG TAB (IMMEDIATE RELEASE) PO PRN ×4 (06:35→19:59)
[2021-09-29 07:34] LABS: Hematocrit (blood only) 26.5 % (37-47); Hemoglobin 8.5 g/dL (12.0-16.0); Mean Corpuscular Hemoglobin 26.9 pg (25-34); Mean Corpuscular Hgb Conc 32.1 g/dL (32-36); Mean Corpuscular Volume 83.9 fL (80-100); Nucleated RBC # (auto) 0.11 K/uL (0-0); Nucleated RBC % (auto) 4.3 %; Platelet Count 7 K/uL (130-400); RDW Coefficient of Variation 17.3 % (11.5-14.5); RDW Standard Deviation 51.7 fL (36.4-46.3); Red Blood Count 3.16 M/uL (4.2-5.4); White Blood Count 2.55 K/uL (4.8-10.8)
[2021-09-29 07:35] LABS: ALC (manual) 0.85 K/uL (1.2-3.4); ANC (manual) 1.54 K/uL (1.4-6.5); Anisocytosis Present; Basophils # (manual) 0.02 K/uL (0-0.2); Basophils % (manual) 0.9 %; Blast # (manual) 0.02 K/uL (0-0); Blast Cells % (manual) 0.9 %; Eosinophils # (manual) 0.02 K/uL (0-0.5); Eosinophils % (manual) 0.9 %; Lymphocytes % (manual) 15.8 %; Monocytes # (manual) 0.09 K/uL (0.11-0.59); Monocytes % (manual) 3.5 %; Neutrophils # (manual) 1.54 K/uL (1.4-6.5); Neutrophils % (manual) 60.5 %; Ovalocytes 1+; Platelet Estimate SIGNIFIC DECREASED (Normal); Reactive Lymphocytes # (manual) 0.45 K/uL; Reactive Lymphocytes % (manual) 17.5 %; Toxic Granulation 1+; Toxic Vacuolation 1+
[2021-09-29 07:45] LABS: BUN Creatinine Ratio 18.8 (10-20); Calcium 8.3 mg/dl (8.5-10.1); Creatinine Clr Calc Pharmacy 49.1 ml/min; Est GFR (African American) 83.9 ml/min; Est GFR (Non-African American) 72.4 ml/min; Magnesium 2.1 mg/dl (1.8-2.4); Potassium 4.4 mmol/L (3.5-5.1)
[2021-09-29] MEDS: PHENAZOPYRIDINE HCL 200 MG TAB PO PRN ×2 (08:06→19:59)
[2021-09-29] MEDS: FLUTICASONE/VILANTEROL 200/25MCG 14 PUFFS/INHALER INH SCH (08:06)
[2021-09-29] MEDS: TOPIRAMATE 100 MG TAB PO SCH ×2 (08:07→22:41)
[2021-09-29] MEDS: ACYCLOVIR 400 MG TAB PO SCH ×2 (08:07→22:39)
[2021-09-29] MEDS: OXYBUTYNIN CHLORIDE XL 5 MG TABCR PO SCH (09:06)
[2021-09-29] MEDS: POTASSIUM CHLORIDE CRTAB 20 MEQ TABCR PO SCH (09:06)
[2021-09-29] MEDS: GABAPENTIN 400 MG CAP PO SCH (09:07)
[2021-09-29] MEDS: SACCHAROMYCES BOULARDII 250 MG CAP PO SCH (09:07)
[2021-09-29] MEDS: MULTIVITAMIN TAB PO SCH (09:07)
[2021-09-29] MEDS ORDERED: diphenhydrAMINE Capsule 25 MG CAP PO ONE (09:56)
[2021-09-29] MEDS ORDERED: SODIUM CHLORIDE 0.9% 250 ML IV PRN (09:56)
[2021-09-29] MEDS ORDERED: ACETAMINOPHEN 325 MG TAB PO ONE (09:57)
[2021-09-29] MEDS ORDERED: oxyCODONE HCL IR 5 MG TAB (IMMEDIATE RELEASE) PO PRN (09:58)
--- NOTE | 2021-09-29 13:53 | Hospitalist Progress Note ---
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 Patient had reached out to her oncologists office in regards to her symptoms and fevers and was urged to come to the ED for evaluation as her last ANC was 660. Covid-19 -, flu A/B also negative *Possible sepsis syndromein immunocompromised patient which seems to be related to funguria now felt to be neutropenic fever, Rachelle UTI, all blood cultures show no growth and no fever for 5 days -Last chemo in July per patient-has only received 1 dose of5-azacitidine so far and has had persistent pancytopenia since then related to her MDS and chemo -no longer neutropenic--patient has since defervesced on 09/22 -initially on Aztreonam and Linezolid, stopped since blood cultures showing NG -Patient does note history of urine related infections secondary to her urinary stents -Urine culture growing Rachelle glabrata (fungal sensitivities sents to outs [facility] lab-- results still pending) - indwelling ureteral stents since May 2021, past due to come out but given her underlying chronic comorbidities, has not been stable to do so -Started IV caspofungin 09/22 -ID consulted who recommended transition to amphotericin B IV -Fungal blood cultures: no yeast or hyphae -Urology consulted and did exchange ureteral stents on the evening of 09/26 and placed ureteral catheters to proceed with amphotericin bladder instillation given concern for IV amphotericin in this chronically ill patient -Have discussed this in great detail with both urology (Dr. Cervantes) and infectious disease (Dr. Austin). Infectious disease recommending 2 weeks of IV amphotericin. Urology recommending bladder/ureteral installation for 3 to 5 days and avoiding IV amphotericin given its risk of toxicity in this chronically ill patient I see concerns with both treatment options. [place] DO NOT HAVE GOOD PENETRATION INTO THE SYSTEM -since patient is s/p stent exchange (on 09/26), ID feels comfortable with transitioning to amphotericin bladder/ureteral instillation per hour hospital protocol and watching patient clinically (started on 09/27) -Plan is for installation for total of 3 to 5 days pending clinical improvement. At that time, her culture sensitivities (fungal) should be back. Updated literature does suggest 3 to 5 days of treatment for fungal ball Unfortunately, ureteral catheters inadvertently fell out on 09/27 but again is s/p ureteral stent exchange -Patient initially with severe neutropenia; however, this has since resolved--> ANC 1542 (was 153 on 09/12= consistent with severe neutropenia). out of reverse isolation -Continue prophylactic home Doxycycline and Acyclovir (5) Hx of Clostridium difficile infection: Plan: With a history of C. difficile at least once or twice in the past Typically takes vancomycin twice a week Was on vancomycin 125 mg p.o. once daily while on IV antibiotic therapy IV antibiotic therapy has since been stopped thus vancomycin also stopped Monitor for development of diarrhea (6) S/P ureteral stent placement: Plan: With bilateral indwelling ureteral stents for chronic hydronephrosis Last exchanged in the beginning of May Is overdue for an exchange but has been unable to get it done due to severe pancytopenia Urology has since been consulted and plan is for ureteral stent exchange today as outlined above (8) Chronic kidney disease, stage III (moderate): Plan: Stable -Avoid nephrotoxins -renally dose meds when appropriate -follow BMP (2) UTI (urinary tract infection): Plan: - with bilateral indwelling ureteral stents (stent exchange done 09/26) - Growing yeast Rachelle glabrata--> final sensitivities pending - Blood cultures without yeast (specific fungal blood culture ordered and pending) - Plan is for amphotericin bladder instillation as outlined above - Awaiting fungal sensitivities on initial urine culture but 3-5 days of instillation sufficient per updated literature since no fungemia ID and Urology consulted-- see above (appreciate recommendations (3) Pancytopenia: Plan: *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 Will give addition 2 units today as plt count down to 7 (no active hemorrhage but goal is >10) -received Neupogen 480 SQ on 09/22 and 09/26 as recommended by established Oncolog ist (Dr. Bloom)--> appreciate recommendations -Procrit (40,000U) and vitamin B12 given 09/28 (receives these every Sunday) (4) Myelodysplasia (myelodysplastic syndrome): Plan: *immunocompromised patient in patient with MDS under going Chemo -Secondary myelodysplasia due to previous treatment for lymphoma -Currently undergoing chemotherapy with 5azacitidine which is caused her significant pancytopenia as above (5) Hydronephrosis: Plan: Patient with chronic ureteral stents Ureteral stent exchange done 09/26 (6) COPD (chronic obstructive pulmonary disease): Plan: No evidence of acute exacerbation Continue home albuterol and Symbicort (7) Chronic kidney disease: Plan: -Avoid nephrotoxins -renally dose meds when appropriate -follow BMP (8) Prothrombin [id number] mutation: Plan: -Previously on Lovenox lifelong, but has been held due to significant thrombocytopenia (9) SACHA (obstructive sleep apnea): Plan: Continue CPAP as prior to hospitalization (10) Chronic pain: Plan: Not a new issue Patient takes OxyIR Current dose ineffective. Will allow for 10 mg for pain 6-10 (continue 5 mg for pain 1-5) Patient is opioid dependent and of course this will cause tachyphylaxis Admission and Anticipated Discharge Date Admission Date: September 21, 2021 Subjective Patient seen on daily rounds today. Still complains of irritation in the urethra from the [place] catheter when trying to ambulate. In addition, she is complaining of some abdominal discomfort and back pain. This is chronic for her. Typically takes OxyIR. Is being prescribed this but reports ineffective. Otherwise, she has been afebrile. Denies subjective fevers or chills. No loose stools. Nursing voices no complaints or concerns. Review of Systems Review of Systems: All systems reviewed and are unremarkable except as noted in HPI and below Denies fevers, chills, headache, nasal congestion, sore throat, cough, chest pain, shortness of breath, palpitations, orthopnea, PND, abdominal pain, nausea, vomiting, diarrhea, constipation, dysuria, hematuria, frequency, or swelling, easy bruising or bleeding, skin lesions or rashes. Physical Exam Physical Exam: General: Resting comfortably in her hospital bed. Does not look ill or toxic NAD. HEENT: Head is AT/NC buccal mucosa is moist and pink Neck: No JVD. Negative hepatojugular reflex Cardiac: RRR without M/G/R Lungs: CTA without W/R/R Abdomen: Abdomen distended in the lower quadrants (baseline). Normal active X4. Nontender Extremities: No peripheral clubbing cyanosis or edema Neuro: A&O X4 cranial nerves II through XII are grossly intact no focal neuro deficits Skin: Vascular changes of the bilateral lower extremities Psych: Appropriate affect pleasant and cooperative Results & Data Results & Data ([facility]) Vital Signs (Past 12 Hours) Vital Signs Temp Pulse Pulse Resp BP BP BP 09/29/21 13:32 36.7 C 90 16 104/61 09/29/21 13:15 36.7 C 84 18 98/57 L 09/29/21 13:03 37.1 C 86 20 103/61 09/29/21 12:00 36.6 C 82 17 119/67 09/29/21 11:48 36.6 C 84 16 127/68 09/29/21 11:30 36.6 C 84 16 127/68 09/29/21 11:15 36.9 C 88 16 138/74 09/29/21 10:53 36.6 C 85 16 125/71 09/29/21 08:03 36.6 C 92 H 20 110/64 09/29/21 03:26 89 13 Pulse Ox 09/29/21 13:32 93 09/29/21 13:15 96 09/29/21 13:03 95 09/29/21 12:00 95 09/29/21 11:48 96 09/29/21 11:30 96 09/29/21 11:15 97 09/29/21 10:53 97 09/29/21 08:03 94 09/29/21 03:26 94 Laboratory Results 09/29/21 07:05 09/29/21 07:05 PG Care Time/CCT Total # of Minutes Spent Total Time Spent with Patient: Total time spent is greater than 50% in coordination of care (as documented) at patient's floor/unit and/or counseling patient: Coding Level of Care Code 99928 Subseq Hosp Care Lvl 2 Diagnoses Neutropenic fever D70.9; R50.81 UTI (urinary tract infection) N39.0 Pancytopenia D61.818 Myelodysplasia (myelodysplastic syndrome) D46.9 Hydronephrosis N13.30 COPD (chronic obstructive pulmonary disease) J44.9 Chronic kidney disease N18.9 Chronic kidney disease stage: unspecified stage Prothrombin [id number] mutation D68.52 SACHA (obstructive sleep apnea) G47.33 Chronic pain G89.29 (1) Chronic kidney disease Chronic kidney disease stage: unspecified stage Qualified Code(s): N18.9 - Chronic kidney disease, unspecified
[2021-09-29] MEDS: DOXYCYCLINE HYCLATE 100 MG CAP PO SCH (15:52)
[2021-09-29] MEDS: AMPHOTERICIN B 50 MG in WATER, STERILE 1,000 ML IR SCH (19:55)
[2021-09-29] MEDS: clonazePAM 0.5 MG TAB PO SCH (22:38)
[2021-09-29] MEDS: SERTRALINE HCL 50 MG TABLET PO SCH (22:41)
[2021-09-29] MEDS: MIRABEGRON ER 25 MG TAB PO SCH (22:42)
[2021-09-29] MEDS: QUEtiapine FUMARATE 25 MG TABLET PO SCH (22:42)
[2021-09-30 06:38] LABS: BUN Creatinine Ratio 18.2 (10-20); Calcium 7.4 mg/dl (8.5-10.1); Creatinine Clr Calc Pharmacy 49.1 ml/min; Est GFR (African American) 83.9 ml/min; Est GFR (Non-African American) 72.4 ml/min; Magnesium 1.8 mg/dl (1.8-2.4); Potassium 4.1 mmol/L (3.5-5.1)
[2021-09-30 07:16] LABS: Hematocrit (blood only) 23.9 % (37-47); Hemoglobin 7.7 g/dL (12.0-16.0); Mean Corpuscular Hemoglobin 26.9 pg (25-34); Mean Corpuscular Hgb Conc 32.2 g/dL (32-36); Mean Corpuscular Volume 83.6 fL (80-100); Nucleated RBC # (auto) 0.07 K/uL (0-0); Nucleated RBC % (auto) 4.4 %; Platelet Count 13 K/uL (130-400); Platelet Estimate SIGNIFIC DECREASED (Normal); Poikilocytosis Present; RDW Coefficient of Variation 17.3 % (11.5-14.5); RDW Standard Deviation 51.8 fL (36.4-46.3); Red Blood Count 2.86 M/uL (4.2-5.4); White Blood Count 1.55 K/uL (4.8-10.8)
[2021-09-30 07:22] LABS: ANC (manual) 0.53 K/uL (1.4-6.5); Blast # (manual) 0.07 K/uL (0-0); Blast Cells % (manual) 4.6 %; Lymphocytes % (manual) 57.8 %; Monocytes # (manual) 0.01 K/uL (0.11-0.59); Monocytes % (manual) 0.9 %; Myelocytes # (manual) 0.04 K/uL (0-0); Myelocytes % (manual) 2.8 %; Neutrophils # (manual) 0.53 K/uL (1.4-6.5); Neutrophils % (manual) 33.9 %
[2021-09-30] MEDS ORDERED: FILGRASTIM 480 MCG/1.6 ML VIAL SQ ONE (08:00)
[2021-09-30] MEDS: oxyCODONE HCL IR 5 MG TAB (IMMEDIATE RELEASE) PO PRN ×4 (08:10→20:35)
[2021-09-30] MEDS: PHENAZOPYRIDINE HCL 200 MG TAB PO PRN ×3 (08:10→23:23)
[2021-09-30] MEDS: MULTIVITAMIN TAB PO SCH (08:33)
[2021-09-30] MEDS: POTASSIUM CHLORIDE CRTAB 20 MEQ TABCR PO SCH (08:33)
[2021-09-30] MEDS: TOPIRAMATE 100 MG TAB PO SCH ×2 (08:33→22:50)
[2021-09-30] MEDS: SACCHAROMYCES BOULARDII 250 MG CAP PO SCH (08:33)
[2021-09-30] MEDS: METHOCARBAMOL 750 MG TABLET PO PRN ×2 (08:33→22:50)
[2021-09-30] MEDS: OXYBUTYNIN CHLORIDE XL 5 MG TABCR PO SCH (08:33)
[2021-09-30] MEDS: GABAPENTIN 400 MG CAP PO SCH (08:33)
[2021-09-30] MEDS: FLUTICASONE/VILANTEROL 200/25MCG 14 PUFFS/INHALER INH SCH (08:33)
[2021-09-30] MEDS: ACYCLOVIR 400 MG TAB PO SCH ×2 (08:34→22:50)
[2021-09-30] MEDS ORDERED: SPIRONOLACTONE 12.5 MG TAB PO SCH (11:30)
[2021-09-30] MEDS: ACETAMINOPHEN 325 MG TAB PO PRN (11:37)
--- NOTE | 2021-09-30 12:11 | Ultrasound Report ---
LEFT LOWER EXTREMITY VENOUS DOPPLER HISTORY: Left leg pain. r/o dvt COMPARISON STUDY: None. FINDINGS: There is normal compressibility, flow, and augmentation within the left lower extremity katherine p venous system. IMPRESSION: No DVT within the left lower extremity. ACT 112: Negative or not required by law. Electronically signed by: Jimi Bangura M.D. 09/30/2021 12:10 PM
--- NOTE | 2021-09-30 12:13 | Ultrasound Report ---
US abdomen ltd ascites CLINICAL HISTORY: assess for ascites. Abdominal distention. COMPARISON STUDY: Abdomen and pelvis CT 09/26/2021. FINDINGS: Transabdominal scanning of the abdomen was performed with internet sales representative images submitted. No ascites identified. IMPRESSION: No ascites. ACT 112: Negative or not required by law. Electronically signed by: Jimi Bangura M.D. 09/30/2021 12:12 PM
[2021-09-30 14:44] LABS: Hematocrit (blood only) 22.4 % (37-47); Hemoglobin 7.2 g/dL (12.0-16.0); Mean Corpuscular Hemoglobin 26.7 pg (25-34); Platelet Count 8 K/uL (130-400); RDW Coefficient of Variation 17.3 % (11.5-14.5); RDW Standard Deviation 50.6 fL (36.4-46.3); White Blood Count 2.16 K/uL (4.8-10.8)
[2021-09-30 15:13] LABS: Basophils # (auto) 0.01 K/uL (0-0.2); Basophils % (auto) 0.5 %; Eosinophils # (auto) 0.01 K/uL (0-0.5); Eosinophils % (auto) 0.5 %; Immature Granulocytes # (auto) 0.03 K/uL (0.00-0.02); Immature Granulocytes % (auto) 1.4 %; Lymphocytes # (auto) 0.85 K/uL (1.2-3.4); Lymphocytes % (auto) 39.4 %; Mean Corpuscular Hgb Conc 32.1 g/dL (32-36); Microcytosis Present; Monocytes # (auto) 0.27 K/uL (0.11-0.59); Monocytes % (auto) 12.5 %; Neutrophils # (auto) 0.99 K/uL (1.4-6.5); Neutrophils % (auto) 45.7 %; Nucleated RBC # (auto) 0.06 K/uL (0-0); Nucleated RBC % (auto) 2.9 %; Poikilocytosis Present; Toxic Granulation 1+; Toxic Vacuolation 1+
--- NOTE | 2021-09-30 15:15 | Hospitalist Progress Note ---
Date of Service September 30, 2021 Assessment & Plan (1) Neutropenic fever: Plan: Patient is a 66 year old female with PMHx Myelodysplastic syndrome on chemotherapy, SACHA, urge and stress incontinence, COPD emphysema, Squamous Cell Lung cancer, lymphoma, prothrombin [id number] Factor 2 mutation, Celiac disease, CVA, that presents with concerns of sore throat, runny nose, and a fever of 100.8F at home. Patient had reached out to her oncologists office in regards to her symptoms and fevers and was urged to come to the ED for evaluation as her last ANC was 660. Covid-19 -, flu A/B also negative *Possible sepsis syndromein immunocompromised patient which seems to be related to funguria now felt to be neutropenic fever, Rachelle UTI, all blood cultures show no growth and no fever for 5 days -Last chemo in July per patient-has only received 1 dose of5-azacitidine so far and has had persistent pancytopenia since then related to her MDS and chemo -patient has since defervesced on 09/22 -initially on Aztreonam and Linezolid, stopped since blood cultures showing NG -Patient does note history of urine related infections secondary to her urinary stents -Urine culture growing Rachelle glabrata (fungal sensitivities stents to outsourced lab-- results still pending) -indwelling ureteral stents since May 2021, past due to come out but given her underlying chronic comorbidities, has not been stable to do so -Started IV caspofungin 09/22 -ID consulted who recommended transition to amphotericin B IV -Fungal blood cultures: no yeast or hyphae -Urology consulted and did exchange ureteral stents on the evening of 09/26 and placed ureteral catheters to proceed with amphotericin bladder instillation given concern for IV amphotericin in this chronically ill patient -Have discussed this in great detail with both urology (Dr. Cervantes) and infectious disease (Dr. Austin). Infectious disease initially recommended 2 weeks IV amphotericin. Urology recommending bladder/ureteral installation for 3 to 5 days and avoiding IV amphotericin given its risk of toxicity in this chronically ill patient I see concerns with both treatment options. [place] DOES NOT HAVE GOOD PENETRATION INTO THE SYSTEM. Biggest concern with the IV Amphotericin is the potential bone marrow suppression that it can cause (in this patient who has MDS and is transfusion dependent) -since patient is s/p stent exchange (on 09/26), ID feels comfortable with transitioning to amphotericin bladder/ureteral instillation per hour hospital protocol and watching patient clinically (started on 09/27) -patient has completed 4 days of Amphotericin bladder instillation. Unfortunately, ureteral catheters inadvertently fell out on 09/27 but again is s/p ureteral stent exchange Sensitivity for antifungals had to be sent out on outsource lab and is now available. It is resistant to Diflucan but is sensitive to micafungin At this point time, not certain she needs any added treatment. She had the ureteral stents exchanged and completed 4 days of bladder instillation with amphotericin. This should be adequately sufficient in updated literature Patient has defervesced. -Patient initially with severe neutropenia; that did resolve--> ANC 1542 (was 153 on 09/12= consistent with severe neutropenia). At this point in time (09/30) her ANC is consistent with moderate neutropenia (524)--I am uncertain if this is infection driven or perhaps patient stabilizing to her baseline. With review of old records, she seems to run moderate to severely neutropenic. Will give additional dose of Neupogen. We will hold off on any added treatment at this time but would have a low threshold to starting IV micafungin per sensitivities. I have a message out to infectious disease (Dr. Kee) to get his thoughts -Continue prophylactic home Doxycycline and Acyclovir (2) UTI (urinary tract infection): Plan: - with bilateral indwelling ureteral stents (stent exchange done 09/26) - Growing yeast Rachelle glabrata--> resistant to Diflucan - Blood cultures without yeast (specific fungal blood culture ordered and pending) -Patient has completed a full course of amphotericin bladder instillation as outlined above -Blood cultures show no evidence of yeast or hyphae. No suspicion for fungemia ID and Urology consulted-- see above (appreciate recommendations (3) Pancytopenia: Plan: *Patient with MDS--> transfusion dependent -Hemoglobin was down to 6.6 and transfused 2 units PRBCs on 09/23. 09/30 down to 7.7 (and 7.2 with repeat). Despite this, she is hemodynamically stable and asymptomatic -Unfortunately she has developed antibodies in her blood- blood products have to come from [place] [facility] -received platelet transfusion on 09/25 in preparation of ureteral stent exchange (platelet count was 12-13). Additional 2 unit on 09/29 for a drop in her platelet count to 7. Follow-up platelet count today is 13 (but on repeat in afternoon dropped back to 8) --Transfusing both blood and platelets at this point, we will hold off and see what her labs are in the morning. Patient has a history of transfusion reactions including rigors. As outlined above, uncertain if underlying infection is driving her pancytopenia. Have a very low threshold for starting micafungin and I hate to commit her to added treatment if she were to develop a fever from transfusion. Although the literature would advise transfusion given plt <10-- Hold off on transfusion for now but in the event that she develops any bleeding close would initiate transfusion -received Neupogen 480 SQ on 09/22 and 09/26 with additional dose 09/30--as recommended by established Oncologist (Dr. Bloom)--> appreciate recommendations -Procrit (40,000U) and vitamin B12 given 09/28 (receives these every Sunday) (4) Myelodysplasia (myelodysplastic syndrome): Plan: *immunocompromised patient in patient with MDS under going Chemo -Secondary myelodysplasia due to previous treatment for lymphoma -Currently undergoing chemotherapy with 5azacitidine which is caused her significant pancytopenia as above (5) Hydronephrosis: Plan: Patient with chronic ureteral stents Ureteral stent exchange done 09/26 (6) COPD (chronic obstructive pulmonary disease): Plan: No evidence of acute exacerbation Continue home albuterol and Symbicort (7) Chronic kidney disease: Plan: -Avoid nephrotoxins -renally dose meds when appropriate -follow BMP (8) Prothrombin [id number] mutation: Plan: -Previously on Lovenox lifelong, but has been held due to significant thrombocytopenia -Patient did complain of left leg pain for which a venous Doppler was performed showing no evidence of DVT. This is reassuring as she cannot be anticoagulated and would be a huge risk for IVC filter insertion given her thrombocytopenia (9) SACHA (obstructive sleep apnea): Plan: Continue CPAP as prior to hospitalization (10) Chronic pain: Plan: Not a new issue Patient takes OxyIR Current dose ineffective. Will allow for 10 mg for pain 6-10 (continue 5 mg for pain 1-5) Patient is opioid dependent and of course this will cause tachyphylaxis Plan: At this time, bladder irritation likely related to the bladder instillation of amphotericin. Hold on this I did obtain an ultrasound of the abdomen to rule out ascites given her reported history of cirrhosis and her mild abdominal distention. No ascites seen. Admission and Anticipated Discharge Date Admission Date: September 21, 2021 Subjective Patient seen on daily rounds today. c/o bladder irritation but denies fevers, chills, CP, SOB, abd pain, N/V. Is s/o left leg pain which is new today Review of Systems Review of Systems: All systems reviewed and are unremarkable except as noted in HPI and below Denies fevers, chills, headache, nasal congestion, sore throat, cough, chest pain, shortness of breath, palpitations, orthopnea, PND, abdominal pain, nausea, vomiting, diarrhea, constipation, dysuria, hematuria, frequency, or swelling, easy bruising or bleeding, skin lesions or rashes Physical Exam Physical Exam: General: Resting comfortably in her hospital bed. Does not look ill or toxic NAD. HEENT: Head is AT/NC buccal mucosa is moist and pink Neck: No JVD. Negative hepatojugular reflex Cardiac: RRR without M/G/R Lungs: CTA without W/R/R Abdomen: Abdomen distended in the lower quadrants (baseline per patient). Normal active X4. Nontender Extremities: No peripheral clubbing cyanosis or edema but exquisitely tenderness to palpation of the LEft leg. No edema. Neuro: A&O X4 cranial nerves II through XII are grossly intact no focal neuro deficits Skin: Vascular changes of the bilateral lower extremities Psych: Appropriate affect pleasant and cooperative Results & Data Results & Data ([facility]) Vital Signs (Past 12 Hours) Vital Signs Temp Pulse Pulse Resp BP Pulse Ox 09/30/21 07:42 36.6 C 92 H 16 124/71 98 09/30/21 03:20 88 12 93 Laboratory Results Laboratory Results - last 24 hr 09/30/21 09/30/21 09/30/21 05:26 05:26 14:28 WBC 1.55 L 2.16 L RBC 2.86 L 2.70 L Hgb 7.7 L 7.2 L Hct 23.9 L 22.4 L MCV 83.6 83.0 MCH 26.9 26.7 MCHC 32.2 32.1 RDW Std Deviation 51.8 H 50.6 H RDW Coeff of Irasema 17.3 H 17.3 H Plt Count 13 L* D 8 L* Immature Gran % (Auto) 1.4 Neut % (Auto) 45.7 Lymph % (Auto) 39.4 [place] % (Auto) 12.5 Eos % (Auto) 0.5 Baso % (Auto) 0.5 Neut # (Auto) 0.99 L* Lymph # (Auto) 0.85 L [place] # (Auto) 0.27 Eos # (Auto) 0.01 Baso # (Auto) 0.01 Immature Gran # (Auto) 0.03 H Absolute Nucleated RBC 0.07 H 0.06 H Nucleated RBC % (auto) 4.4 2.9 Neutrophils % (Manual) 33.9 Lymphocytes % (Manual) 57.8 Monocytes % (Manual) 0.9 Myelocytes % (Man) 2.8 Blast Cells % (Manual) 4.6 Neutrophils # (Manual) 0.53 L Total Absolute Neuts 0.53 L* Lymphocytes # (Manual) 0.90 L Total Abs Lymphocytes 0.90 L Monocytes # (Manual) 0.01 L Myelocytes # (Manual) 0.04 H Blast Cells # (Man) 0.07 H Toxic Granulation 1+ Toxic Vacuolation 1+ Platelet Estimate SIGNIFIC DECREASED Poikilocytosis Present Present Microcytosis Present Sodium 135 L Potassium 4.1 Chloride 107 Carbon Dioxide 23 Anion Gap 5.0 BUN 15 Creatinine 0.84 Est Cr Clr Drug Dosing 49.1 Est GFR ( Amer) 83.9 Est GFR (Non-Af Amer) 72.4 BUN/Creatinine Ratio 18.2 Glucose 116 H Calcium 7.4 L Magnesium 1.8 PG Care Time/CCT Total # of Minutes Spent Total Time Spent with Patient: Total time spent is greater than 50% in coordination of care (as documented) at patient's floor/unit and/or counseling patient: Coding Level of Care Code 07540 Subseq Hosp Care Lvl 2 Diagnoses Neutropenic fever D70.9; R50.81 UTI (urinary tract infection) N39.0 Pancytopenia D61.818 Myelodysplasia (myelodysplastic syndrome) D46.9 Hydronephrosis N13.30 COPD (chronic obstructive pulmonary disease) J44.9 Chronic kidney disease N18.9 Chronic kidney disease stage: unspecified stage Prothrombin [id number] mutation D68.52 SACHA (obstructive sleep apnea) G47.33 Chronic pain G89.29 (1) Chronic kidney disease Chronic kidney disease stage: unspecified stage Qualified Code(s): N18.9 - Chronic kidney disease, unspecified
[2021-09-30] MEDS: DOXYCYCLINE HYCLATE 100 MG CAP PO SCH (17:29)
[2021-09-30] MEDS: MIRABEGRON ER 25 MG TAB PO SCH (22:50)
[2021-09-30] MEDS: QUEtiapine FUMARATE 25 MG TABLET PO SCH (22:50)
[2021-09-30] MEDS: clonazePAM 0.5 MG TAB PO SCH (22:50)
[2021-09-30] MEDS: SERTRALINE HCL 50 MG TABLET PO SCH (22:51)
[2021-10-01] MEDS: oxyCODONE HCL IR 5 MG TAB (IMMEDIATE RELEASE) PO PRN ×4 (06:10→21:08)
[2021-10-01] MEDS: FLUTICASONE/VILANTEROL 200/25MCG 14 PUFFS/INHALER INH SCH (08:17)
[2021-10-01] MEDS: SACCHAROMYCES BOULARDII 250 MG CAP PO SCH (08:18)
[2021-10-01] MEDS: POTASSIUM CHLORIDE CRTAB 20 MEQ TABCR PO SCH (08:18)
[2021-10-01] MEDS: MULTIVITAMIN TAB PO SCH (08:18)
[2021-10-01] MEDS: OXYBUTYNIN CHLORIDE XL 5 MG TABCR PO SCH (08:18)
[2021-10-01] MEDS: TOPIRAMATE 100 MG TAB PO SCH ×2 (08:19→22:50)
[2021-10-01] MEDS: ACYCLOVIR 400 MG TAB PO SCH ×2 (08:19→22:49)
[2021-10-01] MEDS: GABAPENTIN 400 MG CAP PO SCH (08:19)
[2021-10-01] MEDS: METHOCARBAMOL 750 MG TABLET PO PRN ×2 (08:21→22:51)
[2021-10-01] MEDS: PHENAZOPYRIDINE HCL 200 MG TAB PO PRN ×2 (08:21→21:08)
[2021-10-01 08:25] LABS: INR 1.2 (0.9-1.1); Prothrombin Time 11.9 Seconds (9.0-12.0)
[2021-10-01 08:54] LABS: Platelet Count 13 K/uL (130-400)
[2021-10-01 08:55] LABS: Platelet Estimate SIGNIFIC DECREASED (Normal); Poikilocytosis Present; Toxic Granulation 1+; White Blood Count 2.39 K/uL (4.8-10.8)
[2021-10-01 09:01] LABS: Albumin Level 3.2 gm/dl (3.4-5.0); BUN Creatinine Ratio 18.5 (10-20); Calcium 7.9 mg/dl (8.5-10.1); Creatinine Clr Calc Pharmacy 45.3 ml/min; Est GFR (African American) 76.2 ml/min; Est GFR (Non-African American) 65.7 ml/min; Potassium 4.2 mmol/L (3.5-5.1)
[2021-10-01 09:04] LABS: Albumin Globulin Ratio 0.9 (0.9-2); Bilirubin,Total 0.8 mg/dl (0.2-1); Globulin 3.4 gm/dl (2.5-4.0); Total Protein 6.6 gm/dl (6.4-8.2)
[2021-10-01 09:43] LABS: Red Blood Count 2.57 M/uL (4.2-5.4)
[2021-10-01 09:44] LABS: Hematocrit (blood only) 20.6 % (37-47); Mean Corpuscular Hemoglobin 27.2 pg (25-34); Mean Corpuscular Volume 80.2 fL (80-100); RDW Coefficient of Variation 17.2 % (11.5-14.5); RDW Standard Deviation 49.5 fL (36.4-46.3)
[2021-10-01 09:45] LABS: Basophils % (auto) 0.4 %; Eosinophils % (auto) 0.4 %; Lymphocytes % (auto) 27.6 %; Monocytes % (auto) 8.4 %; Neutrophils % (auto) 62.4 %
[2021-10-01 09:46] LABS: Basophils # (auto) 0.01 K/uL (0-0.2); Eosinophils # (auto) 0.01 K/uL (0-0.5); Immature Granulocytes # (auto) 0.02 K/uL (0.00-0.02); Immature Granulocytes % (auto) 0.1 %; Lymphocytes # (auto) 0.66 K/uL (1.2-3.4); Neutrophils # (auto) 1.49 K/uL (1.4-6.5); Nucleated RBC # (auto) 0.08 K/uL (0-0); Nucleated RBC % (auto) 3.2 %
[2021-10-01] MEDS ORDERED: ACETAMINOPHEN 325 MG TAB PO ONE (10:46)
[2021-10-01] MEDS ORDERED: diphenhydrAMINE Capsule 25 MG CAP PO ONE (10:46)
[2021-10-01] MEDS ORDERED: FUROSEMIDE INJ 20 MG/2 ML VIAL IV PRN (10:46)
[2021-10-01] MEDS ORDERED: SODIUM CHLORIDE 0.9% 250 ML IV PRN (10:46)
--- NOTE | 2021-10-01 17:30 | Hospitalist Progress Note ---
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 Patient had reached out to her oncologists office in regards to her symptoms and fevers and was urged to come to the ED for evaluation as her last ANC was 660. Covid-19 -, flu A/B also negative *Possible sepsis syndromein immunocompromised patient which seems to be related to funguria now felt to be neutropenic fever, Rachelle UTI, all blood cultures show no growth and no fever for 5 days -Last chemo in July per patient-has only received 1 dose of5-azacitidine so far and has had persistent pancytopenia since then related to her MDS and chemo -patient has since defervesced on 09/22 -initially on Aztreonam and Linezolid, stopped since blood cultures showing NG -Patient does note history of urine related infections secondary to her urinary stents -Urine culture growing Rachelle glabrata (fungal sensitivities stents to outsourced lab-- results still pending) -indwelling ureteral stents since May 2021, past due to come out but given her underlying chronic comorbidities, has not been stable to do so -Started IV caspofungin 09/22 -ID consulted who recommended transition to amphotericin B IV -Fungal blood cultures: no yeast or hyphae -Urology consulted and did exchange ureteral stents on the evening of 09/26 and placed ureteral catheters to proceed with amphotericin bladder instillation given concern for IV amphotericin in this chronically ill patient -Have discussed this in great detail with both urology (Dr. Cervantes) and infectious disease (Dr. Austin). Infectious disease initially recommended 2 weeks IV amphotericin. Urology recommending bladder/ureteral installation for 3 to 5 days and avoiding IV amphotericin given its risk of toxicity in this chronically ill patient I see concerns with both treatment options. [facility] DOES NOT HAVE GOOD PENETRATION INTO THE SYSTEM. Biggest concern with the IV Amphotericin is the potential bone marrow suppression that it can cause (in this patient who has MDS and is transfusion dependent) -since patient is s/p stent exchange (on 09/26), ID feels comfortable with transi tioning to amphotericin bladder/ureteral instillation per hour hospital protocol and watching patient clinically (started on 09/27) -patient has completed 4 days of Amphotericin bladder instillation. Unfortunately, ureteral catheters inadvertently fell out on 09/27 but again is s/p ureteral stent exchange Sensitivity for antifungals had to be sent out on outsource lab and is now avai lable. It is resistant to Diflucan but is sensitive to micafungin At this point time, not certain she needs any added treatment. She had the ureteral stents exchanged and completed 4 days of bladder instillation with amphotericin. This should be adequately sufficient in updated literature Patient has defervesced. -Patient initially with severe neutropenia; that did resolve--> ANC 1542 (was 153 on 09/12= consistent with severe neutropenia). (09/30) her ANC consistent with moderate neutropenia (524)-- uncertain if this is infection driven or perhaps patient stabilizing to her baseline. With review of old records, she seems to run moderate to severely neutropenic. Will give additional dose of Neupogen. Holding off on any added treatment at this time but would have a low threshold to starting IV micafungin per sensitivities. ANC 1491--> consistent with mild neutropenia at this time. Suspect baseline -Continue prophylactic home Doxycycline and Acyclovir (2) UTI (urinary tract infection): Plan: - with bilateral indwelling ureteral stents (stent exchange done 09/26) - Growing yeast Rachelle glabrata--> resistant to Diflucan - Blood cultures without yeast (specific fungal blood culture ordered and pending) - Patient has completed a full course of amphotericin bladder instillation as outlined above - Blood cultures show no evidence of yeast or hyphae. No suspicion for fungemia - bladder has been decolonized and ureteral stents exchanged ID and Urology consulted-- see above (appreciate recommendations (3) Pancytopenia: Plan: *Patient with MDS--> transfusion dependent -Hemoglobin was down to 6.6 and transfused 2 units PRBCs on 09/23. 09/30 down to 7.7 (and 7.2 with repeat). Despite this, she is hemodynamically stable and asymptomatic -Unfortunately she has developed antibodies in her blood- blood products have to come from [facility] -received platelet transfusion on 09/25 in preparation of ureteral stent exchange (platelet count was 12-13). Additional 2 unit on 09/29 for a drop in her platelet count to 7. Follow-up platelet stable at 13 -10/01: hgb down to 7.0 and she is symptomatic. will transfuse 2 units but blood has antibiodies and has to come from [facility] -received Neupogen 480 SQ on 09/22 and 09/26 with additional dose 09/30 and 10/01--as recommended by established Oncologist (Dr. Bloom)--> appreciate recommendations -Procrit (40,000U) and vitamin B12 given 09/28 (receives these every Sunday). If still here, will need additional doses Sunday (4) Myelodysplasia (myelodysplastic syndrome): Plan: *immunocompromised patient in patient with MDS under going Chemo -transfusion dependent -Secondary myelodysplasia due to previous treatment for lymphoma -Currently undergoing chemotherapy with 5azacitidine which is caused her significant pancytopenia as above (5) Hydronephrosis: Plan: Patient with chronic ureteral stents Ureteral stent exchange done 09/26 (6) COPD (chronic obstructive pulmonary disease): Plan: No evidence of acute exacerbation Continue home albuterol and Symbicort (7) Chronic kidney disease: Plan: -Avoid nephrotoxins -renally dose meds when appropriate -follow BMP (8) Prothrombin [id number] mutation: Plan: -Previously on Lovenox lifelong, but has been held due to significant thrombocytopenia -Patient did complain of left leg pain for which a venous Doppler was performed showing no evidence of DVT. This is reassuring as she cannot be anticoagulated and would be a huge risk for IVC filter insertion given her thrombocytopenia (9) SACHA (obstructive sleep apnea): Plan: Continue CPAP as prior to hospitalization (10) Chronic pain: Plan: Not a new issue Patient takes OxyIR Current dose ineffective. Will allow for 10 mg for pain 6-10 (continue 5 mg for pain 1-5) Patient is opioid dependent and of course this will cause tachyphylaxis Plan: At this point time, patient just awaiting transfusion (again transfusion dependent). Difficult to get blood for her as she has developed antibodies and blood test to come from [facility] Can likely be discharged once she has received this transfusion. Labs not far from baseline. Admission and Anticipated Discharge Date Admission Date: September 21, 2021 Subjective Patient seen on daily rounds today. c/o excessive fatigue and increased SOB. Otherwise, denies F/C. Still with mild bladder irritation. Review of Systems Review of Systems: All systems reviewed and are unremarkable except as noted in HPI and below Denies fevers, chills, headache, nasal congestion, sore throat, cough, chest pain, palpitations, orthopnea, PND, abdominal pain, nausea, vomiting, diarrhea, constipation, dysuria, hematuria, frequency, or swelling, easy bruising or bleeding, skin lesions or rashes Physical Exam Physical Exam: General: Resting comfortably in her hospital bed-- appears fatigue, chronically but not acutely ill. NAD. HEENT: Head is AT/NC buccal mucosa is moist and pink Neck: No JVD. Negative hepatojugular reflex Cardiac: RRR without M/G/R Lungs: CTA without W/R/R Abdomen: Abdomen distended in the lower quadrants (baseline per patient). Normal active X4. Nontender Extremities: No peripheral clubbing cyanosis or edema Neuro: A&O X4 cranial nerves II through XII are grossly intact no focal neuro deficits Skin: Vascular changes of the bilateral lower extremities Psych: Appropriate affect pleasant and cooperative Results & Data Results & Data ([facility]) Vital Signs (Past 12 Hours) Vital Signs Temp Pulse Resp BP Pulse Ox 10/01/21 15:06 36.4 C L 98 H 16 110/62 95 10/01/21 07:36 36.6 C 96 H 16 99/58 L 92 Laboratory Results 10/01/21 07:10 10/01/21 08:28 PG Care Time/CCT Total # of Minutes Spent Total Time Spent with Patient: Total time spent is greater than 50% in coordination of care (as documented) at patient's floor/unit and/or counseling patient: Coding Level of Care Code 71447 Subseq Hosp Care Lvl 2 Diagnoses Neutropenic fever D70.9; R50.81 UTI (urinary tract infection) N39.0 Pancytopenia D61.818 Myelodysplasia (myelodysplastic syndrome) D46.9 Hydronephrosis N13.30 COPD (chronic obstructive pulmonary disease) J44.9 Chronic kidney disease N18.9 Chronic kidney disease stage: unspecified stage Prothrombin [id number] mutation D68.52 SACHA (obstructive sleep apnea) G47.33 Chronic pain G89.29 (1) Chronic kidney disease Chronic kidney disease stage: unspecified stage Qualified Code(s): N18.9 - Chronic kidney disease, unspecified
[2021-10-01] MEDS: DOXYCYCLINE HYCLATE 100 MG CAP PO SCH (17:43)
[2021-10-01] MEDS ORDERED: FILGRASTIM 480 MCG/1.6 ML VIAL SQ ONE (18:30)
[2021-10-01] MEDS: QUEtiapine FUMARATE 25 MG TABLET PO SCH (22:49)
[2021-10-01] MEDS: MIRABEGRON ER 25 MG TAB PO SCH (22:49)
[2021-10-01] MEDS: clonazePAM 0.5 MG TAB PO SCH (22:49)
[2021-10-01] MEDS: SERTRALINE HCL 50 MG TABLET PO SCH (22:50)
[2021-10-02] MEDS ORDERED: diphenhydrAMINE Capsule 25 MG CAP ONE (00:52)
[2021-10-02] MEDS ORDERED: FUROSEMIDE INJ 20 MG/2 ML VIAL IV SCH (04:00)
[2021-10-02] MEDS: oxyCODONE HCL IR 5 MG TAB (IMMEDIATE RELEASE) PO PRN ×3 (06:19→16:19)
[2021-10-02 06:29] LABS: BUN Creatinine Ratio 25.7 (10-20); Calcium 8.9 mg/dl (8.5-10.1); Creatinine Clr Calc Pharmacy 45.3 ml/min; Est GFR (African American) 76.2 ml/min; Est GFR (Non-African American) 65.7 ml/min; Potassium 4.2 mmol/L (3.5-5.1)
[2021-10-02] MEDS: PHENAZOPYRIDINE HCL 200 MG TAB PO PRN ×3 (06:43→16:20)
[2021-10-02 07:25] LABS: Hematocrit (blood only) 27.1 % (37-47); Hemoglobin 9.1 g/dL (12.0-16.0); Mean Corpuscular Hemoglobin 28.1 pg (25-34); Mean Corpuscular Hgb Conc 33.6 g/dL (32-36); Mean Corpuscular Volume 83.6 fL (80-100); Nucleated RBC # (auto) 0.11 K/uL (0-0); Nucleated RBC % (auto) 3.4 %; Platelet Count 11 K/uL (130-400); RDW Coefficient of Variation 16.1 % (11.5-14.5); RDW Standard Deviation 48.2 fL (36.4-46.3); Red Blood Count 3.24 M/uL (4.2-5.4); White Blood Count 3.14 K/uL (4.8-10.8)
[2021-10-02 07:34] LABS: ALC (manual) 0.94 K/uL (1.2-3.4); ANC (manual) 2.01 K/uL (1.4-6.5); Eosinophils # (manual) 0.06 K/uL (0-0.5); Lymphocytes # (manual) 0.94 K/uL (1.2-3.4); Monocytes # (manual) 0.13 K/uL (0.11-0.59); Neutrophils # (manual) 2.01 K/uL (1.4-6.5); Toxic Granulation 1+
[2021-10-02 07:54] VITALS: TEMP 98.4; O2SAT 93
[2021-10-02] MEDS: ACYCLOVIR 400 MG TAB PO SCH (08:28)
[2021-10-02] MEDS: GABAPENTIN 400 MG CAP PO SCH (08:28)
[2021-10-02] MEDS: SACCHAROMYCES BOULARDII 250 MG CAP PO SCH (08:28)
[2021-10-02] MEDS: OXYBUTYNIN CHLORIDE XL 5 MG TABCR PO SCH (08:28)
[2021-10-02] MEDS: MULTIVITAMIN TAB PO SCH (08:28)
[2021-10-02] MEDS: TOPIRAMATE 100 MG TAB PO SCH (08:28)
[2021-10-02] MEDS: FLUTICASONE/VILANTEROL 200/25MCG 14 PUFFS/INHALER INH SCH (08:29)
[2021-10-02] MEDS: POTASSIUM CHLORIDE CRTAB 20 MEQ TABCR PO SCH (08:30)
[2021-10-02] MEDS: METHOCARBAMOL 750 MG TABLET PO PRN (08:33)
--- NOTE | 2021-10-02 13:24 | Discharge Summary ---
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 Patient had reached out to her oncologists office in regards to her symptoms and fevers and was urged to come to the ED for evaluation as her last ANC was 660. Patient notes currently that she started with her symptoms yesterday morning primarily with a sore throat and runny nose. She notes that today she has also noticed a slight cough along with a fever of 100.8F while at home. She denies any recent cuts or bruises. She denies any recent diarrhea, dysuria, hematuria, or vomiting. She notes that her symptoms have improved somewhat, and that she currently does not feel febrile. In the ED she was started on Cefepime to which she notes currently that she "feels itchy." She notes multiple areas on her L arm, L neck, and inner R thigh that she feels appear more red than usual and itch somewhat. She notes that these areas had fluid filled bullae previously which she felt was secondary to vancomycin. She notes that the rashes were less red prior to administration of the Cefepime. She denies any SOB, throat swelling, tongue swelling, or itchy throat. Med Hx:Myelodysplastic syndrome on chemotherapy, SACHA, urge and stress incontinence, COPD emphysema, Squamous Cell Lung cancer, Prothrombin [id number] Factor 2 mutation, Celiacs disease, CVA Surg Hx: Bone marrow biopsy, L carpal tunnel release, Liver biopsy, multiple ureteral stent placements, bladder prolapse repair, tonsillectomy, tubal ligation Soc Hx: Denies tobacco use since 2010, Denies alcohol use since 1996, notes medical marijuana use Principal Diagnosis 1. Neutropenic feverresolved 2. UTICandida glabrata 3. Transfusion dependent pancytopeniachronic Discharge Exam General: Resting comfortably in her hospital bed. Does not look acutely ill or toxic NAD. HEENT: Head is AT/NC buccal mucosa is moist and pink Neck: No JVD. Negative hepatojugular reflex Cardiac: RRR without M/G/R Lungs: CTA without W/R/R Abdomen: Abdomen distended in the lower quadrants (baseline per patient). Normal active X4. Nontender Extremities: No peripheral clubbing cyanosis or edema but exquisitely tenderness to palpation of the LEft leg. No edema. Neuro: A&O X4 cranial nerves II through XII are grossly intact no focal neuro de ficits Skin: Vascular changes of the bilateral lower extremities Psych: Appropriate affect pleasant and cooperative Discharge Data Allergies Allergy/AdvReac Type Severity Reaction Status Date / Time bee venom protein (honey bee) Allergy Severe Difficulty Verified 09/21/21 02:29 Breathing adhesive Allergy Intermediate Red torn Verified 09/21/21 02:29 skin Iodinated Contrast Media Allergy Intermediate Hives Verified 09/21/21 02:29 iodine Allergy Intermediate Hives Verified 09/21/21 02:29 levofloxacin Allergy Intermediate numbness/we Verified 09/21/21 02:29 akness pregabalin Allergy Intermediate fever?/?cher Verified 09/21/21 02:29 h strawberry Allergy Intermediate Hives Verified 09/21/21 02:29 Sulfa (Sulfonamide Allergy Intermediate Rash, hives Verified 09/21/21 02:29 Antibiotics) vancomycin Allergy Intermediate Bullous Verified 09/21/21 02:29 skin rash allopurinol Allergy Mild Rash Verified 09/21/21 02:29 ceftriaxone [From Rocephin] Allergy Mild Rash Verified 09/21/21 02:29 piperacillin [From Zosyn] Allergy Mild Rash Verified 09/21/21 02:29 tazobactam [From Zosyn] Allergy Mild Rash Verified 09/21/21 02:29 venlafaxine Allergy Unknown Unknown Verified 09/21/21 02:29 gluten AdvReac Severe Celiac Dz Verified 09/21/21 02:29 = GI symptoms propoxyphene 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 No evidence of hydronephrosis or hydroureter within the limitations of noncontrast technique. 09/26/21 17:42 FL retrograde includes kub Routine IMPRESSION: Previously identified left-sided hydronephrosis is not seen on the current study. 09/30/21 10:52 US abdomen ltd ascites Urgent IMPRESSION: No ascites. US venous doppler LE LT Routine IMPRESSION: No DVT within the left lower extremity. Hospital Course (1) Neutropenic fever: Patient is a 66 year old female with PMHx Myelodysplastic syndrome on chemotherapy, SACHA, urge and stress incontinence, COPD emphysema, Squamous Cell Lung cancer, lymphoma, prothrombin [id number] Factor 2 mutation, Celiac disease, CVA, that presents with concerns of sore throat, runny nose, and a fever of 100.8F at home. Patient had reached out to her oncologists office in regards to her symptoms and fevers and was urged to come to the ED for evaluation as her last ANC was 660. Covid-19 -, flu A/B also negative *Possible sepsis syndromein immunocompromised patient which seems to be related to funguria now felt to be neutropenic fever, Rachelle UTI, all blood cultures show no growth and negative for yeast/hyphae -Last chemo in July per patient-has only received 1 dose of5-azacitidine so far and has had persistent pancytopenia since then related to her MDS and chemo -patient has since defervesced on 09/22 -initially on Aztreonam and Linezolid, stopped since blood cultures/urine culture showing NG -Patient does note history of urine related infections secondary to her urinary stents -Urine culture growing Rachelle glabrata (fungal sensitivities stents to outsourced lab-- after treatment, came back with resistance to Diflucan) -indwelling ureteral stents since May 2021, past due to come out but given her underlying chronic comorbidities, has not been stable to do so -Started IV caspofungin 09/22 -ID consulted who recommended transition to amphotericin B IV -Fungal blood cultures: no yeast or hyphae -Urology consulted and did exchange ureteral stents on the evening of 09/26 and placed ureteral catheters to proceed with amphotericin bladder instillation given concern for IV amphotericin in this chronically ill patient -discussed this in great detail with both urology (Dr. Cervantes) and infectious disease (Dr. Austin). Infectious disease initially recommended 2 weeks IV amphotericin. Urology recommended bladder/ureteral installation for 3 to 5 days and avoiding IV amphotericin given its risk of toxicity in this chronically ill patient (and risk for further marrow suppression) I see concerns with both treatment options. Caspo and micafungin DO NOT HAVE GOOD PENETRATION INTO THE SYSTEM. Biggest concern with the IV Amphotericin is the potential bone marrow suppression that it can cause (in this patient who has MDS and is transfusion dependent) -since patient is s/p stent exchange (on 09/26), ID felt comfortable with transitioning to amphotericin bladder/ureteral instillation per hour hospital protocol and watching patient clinically (started on 09/27) -patient has completed 4 days of Amphotericin bladder instillation. Unfortunately, ureteral catheters inadvertently fell out on 09/27 but again is s/p ureteral stent exchange Sensitivity for antifungals had to be sent out on outsource lab and is now available. It is resistant to Diflucan At this point time, not certain she needs any added treatment. She had the ureteral stents exchanged and completed 4 days of bladder instillation with amphotericin. This should be adequately sufficient in updated literature Patient has defervesced. -Patient initially with severe neutropenia; that did resolve--> ANC 1542 (was 153 on 09/12= consistent with severe neutropenia). (09/30) her ANC consistent with moderate neutropenia (524)-- uncertain if this is infection driven or perhaps patient stabilizing to her baseline. With review of old records, she seems to run moderate to severely neutropenic. With additional doses of Neupogen, her ANC improved- 1491--> consistent with mild neutropenia at this time. Suspect baseline -Continue prophylactic home Doxycycline/cephalexin and Acyclovir but did have a lengthy discussion with patient regarding risk for persistent fungal infections with long-term antibiotic agents as these will suppress her normal earl. These were prescribed by infectious disease in the past. It may be worth reevaluating and discontinuing these medications at this time (2) UTI (urinary tract infection): - with bilateral indwelling ureteral stents (stent exchange done 09/26) - Growing yeast Rachelle glabrata--> resistant to Diflucan - Blood cultures without yeast (specific fungal blood culture ordered and pending) - Patient has completed a full course of amphotericin bladder instillation as o utlined above - Blood cultures show no evidence of yeast or hyphae. No suspicion for fungemia. Again, patient has defervesced - bladder has been decolonized and ureteral stents exchanged ID and Urology consulted-- see above (appreciate recommendations (3) Pancytopenia: *Patient with MDS--> transfusion dependent -Hemoglobin was down to 6.6 and transfused 2 units PRBCs on 09/23. 2 addition Units needed on 10/01 for Hgb of 7.0 -Unfortunately she has developed antibodies in her blood- blood products have to come from [place] [facility] -received platelet transfusion on 09/25 in preparation of ureteral stent exchange (platelet count was 12-13). Additional 2 unit on 09/29 for a drop in her platelet count to 7. Follow-up platelet stable at 13 -received Neupogen 480 SQ on 09/22 and 09/26 with additional dose 09/30 and 10/01--as recommended by established Oncologist (Dr. Bloom)--> appreciate recommendations -Procrit (40,000U) and vitamin B12 given 09/28 (receives these every Sunday). (4) Myelodysplasia (myelodysplastic syndrome): *immunocompromised patient in patient with MDS undergoing Chemo -transfusion dependent -Secondary myelodysplasia due to previous treatment for lymphoma -Currently undergoing chemotherapy with 5azacitidine -follow up with oncology (5) Hydronephrosis: Patient with chronic ureteral stents Ureteral stent exchange done 09/26 (6) COPD (chronic obstructive pulmonary disease): No evidence of acute exacerbation Continue home albuterol and Symbicort (7) Chronic kidney disease: -Avoid nephrotoxins -renally dose meds when appropriate -follow BMP (8) Prothrombin [id number] mutation: -Previously on Lovenox lifelong, but has been held due to significant thrombocytopenia -Patient did complain of left leg pain for which a venous Doppler was performed showing no evidence of DVT. This is reassuring as she cannot be anticoagulated and would be a huge risk for IVC filter insertion given her thrombocytopenia Would stop lovenox (not ideal but should not be on this with a plt count of 13) (9) SACHA (obstructive sleep apnea): Continue CPAP as prior to hospitalization (10) Chronic pain: Not a new issue Patient takes OxyIR At this point time, this chronically ill patient is back to her baseline and is medically hemodynamically stable for discharge to home Should follow-up with oncology and urology as an outpatient along with her PCP Total Time Total Time Spent Total Time Spent (In Minutes): 45 min including time spent with patient, discussion with attending, coordination of care and preparation of documentation Discharge Plan Discharge Items Patient Disposition: Home - Self-Care Reason For Visit: NEUTROPENIC FEVER Discharge Diagnosis: 1. Fever- resolved 2. UTI- fungal and treated with Antifungal bladder irrigation 3. Pancytopenia (low WBC, blood count and platelet count)-- chronic Activity: Resume your previous activity Activity Comment: as tolerated Non-emergency contact: Primary Care Provider, Oncologist and Urologist Call non-emergency contact if: you have any medication questions and you have a fever Follow-up/Referrals: Reynold Villegas MD [Primary Care Provider] - Ibrahima Bloom DO [Family Provider] - Luis Cervantes DO [Physician] - Diet: Regular Addtl Attending Provider Instructions: You presented to the emergency department complaining of a fever Ultimately it was found to be secondary to a urinary tract infection that was not from bacteria but from fungus The ureteral stents indwelling have since been exchanged He received antifungal bladder irrigation to decolonize the bladder With treatment, your fevers have resolved You do have chronic pancytopenia from your myelodysplastic syndrome and are transfusion dependent at baseline You did receive multiple units of different blood products including platelets and blood Your blood counts seem to be back to baseline You are still having some mild bladder irritation and per urology, this is secondary to the amphotericin irrigation used. This may be ongoing for several days Your home medication regimen has not been changed With you taking chronic antibiotic therapy for suppression, you are at risk for persistent colonization and infections due to yeast. Would advise addition of yogurt with live cultures to help replenish normal earl You should follow-up with your PCP within 7 to 10 days Follow-up with urology: within 1 week Follow-up with oncology: within 1 week Pending Studies at Discharge: No Stand-Alone Forms: [employer], Opioid Pain Management, Smoking Cessation Medications and DC Order Prescriptions: Continued Prolia 60 mg/mL syringe 60 mg subcut .q 6 months RF: 0 calcium carbonate-vitamin D3 [Caltrate with Vitamin D3] 600 mg(1,500mg) -800 unit tablet 1 tab PO QPM RF: 0 ergocalciferol (vitamin D2) 1,250 mcg (50,000 unit) capsule 50,000 unit PO WEEKLY Qty: 12 RF: 1 albuterol sulfate [ProAir HFA] 90 mcg/actuation HFA aerosol inhaler 2 puff INHALATION QID PRN (Reason: Wheezing) Qty: 8.5 RF: 5 metoprolol succinate 50 mg tablet extended release 24 hr 25 mg PO QAM Qty: 45 RF: 3 topiramate [Topamax] 100 mg tablet 100 mg PO .COMPLEX 30 Days Qty: 90 RF: 5 rizatriptan 10 mg tablet 10 mg PO DAILY PRN (Reason: Migraine Headache) Qty: 9 RF: 5 methocarbamol 750 mg tablet 750 mg PO BID PRN (Reason: Pain) Qty: 60 RF: 5 acyclovir 400 mg tablet 400 mg PO BID Qty: 60 RF: 3 oxybutynin chloride 10 mg tablet extended release 24hr 10 mg PO QAM Qty: 90 RF: 1 Myrbetriq 50 mg tablet extended release 24 hr 50 mg PO HS Qty: 90 RF: 3 gabapentin [Neurontin] 400 mg capsule 400 mg PO QAM 30 Days Qty: 30 RF: 3 potassium chloride 20 mEq tablet extended release 20 meq PO QAM Qty: 30 RF: 5 quetiapine [Seroquel] 50 mg tablet 50 mg PO HS Qty: 30 RF: 5 clonazepam 1 mg tablet 0.5 mg PO HS Qty: 30 RF: 2 budesonide-formoterol [Symbicort] 80-4.5 mcg/actuation HFA aerosol inhaler 2 puff inhalation BID Qty: 3 RF: 3 olyhlcjnnx-fekvhuzxukhdf-ipnx [Esgic] 50-325-40 mg tablet 1 tab PO DAILY PRN (Reason: HEADACHES) 30 Days Qty: 12 RF: 0 (DME) Auto Titrating CPAP Misc See Rx Instructions .ROUTE .MEDSUPPLY Qty: 1 RF: 0 (DME) CPAP Supplies Misc See Rx Instructions .ROUTE .MEDSUPPLY Qty: 1 RF: 0 cyanocobalamin (vitamin B-12) 1,000 mcg/mL Solution 1,000 mcg IM MONTHLY RF: 0 ferrous sulfate [iron] 325 mg (65 mg iron) Tablet 325 mg PO QAM RF: 0 vitamin E 400 unit Capsule 400 unit PO QAM RF: 0 psyllium husk [Metamucil] 0.52 gram Capsule 1.04 g PO QAM RF: 0 multivitamin Tablet 1 tab PO QAM RF: 0 butorphanol 10 mg/mL Tennyson,Non-Aerosol 1 spray INTRANASAL Q3H PRN (Reason: Migraine Headache) RF: 0 cetirizine [Zyrtec] 10 mg Tablet 10 mg PO QAM RF: 0 triamcinolone acetonide 0.025 % Cream 1 applic TOPICAL BID PRN (Reason: Skin Irritation) RF: 0 vitamin B complex [B-Complex] Tablet 1 tab PO QAM RF: 0 folic acid 1 mg Tablet 1 mg PO QAM RF: 0 magnesium oxide 400 mg Capsule 400 mg PO QAM RF: 0 Medical Marijuana 1 ml sublingual UD PRN (Reason: Pain) RF: 0 sertraline [Zoloft] 50 mg tablet 50 mg PO HS RF: 0 coQ10 (ubiquinol) 200 mg Capsule 200 mg PO QAM RF: 0 doxycycline hyclate 100 mg capsule 100 mg PO QAM RF: 0 oxycodone 5 mg tablet 5 mg PO Q4H PRN (Reason: pain) Qty: 20 RF: 0 acetaminophen 500 mg Capsule 500 mg PO QID PRN (Reason: Pain) RF: 0 L.acidoph-B.lactis-B.longum 15 billion cell Capsule 1 cap PO QAM RF: 0 phenazopyridine [Pyridium] 200 mg tablet 200 mg PO Q8H PRN (Reason: pain) Qty: 10 RF: 0 Discontinued enoxaparin 30 mg/0.3 mL syringe 30 mg subcut DAILY RF: 0 cephalexin 500 mg capsule 500 mg PO QAM Qty: 30 RF: 5 Discharge Orders: Discharge Order (Routine); Ordered 10/02/21 Ordered By: Ade Gomez/Other Patient Handouts: Understanding Urinary Tract ... Admission Data Admit Date/Time: 09/21/21 03:42 Attending Provider: William Hussein Admit Provider: William Robertson Primary Care Provider: Reynold Villegas Other Providers: Cameron Holloway ; Ibrahima Bloom V. ; Yasir Mcclelland ; Guy Aguayo ; Santiago Kay I. ; Jeffrey Starr II ; Oumou Palm ; Shahram Santiago ; Wayne Austin ; Luis Cervantes Other Interventions: Discharge Summary Assessment (RN) Last Done: 10/02/21 11:53 Coding Level of Care Code D/C DAY MANAGEMENT >30 MINS Diagnoses Neutropenic fever D70.9; R50.81 UTI (urinary tract infection) N39.0 Pancytopenia D61.818 Myelodysplasia (myelodysplastic syndrome) D46.9 Hydronephrosis N13.30 COPD (chronic obstructive pulmonary disease) J44.9 Chronic kidney disease N18.9 Chronic kidney disease stage: unspecified stage Prothrombin [id number] mutation D68.52 SACHA (obstructive sleep apnea) G47.33 Chronic pain G89.29
[2021-10-02 15:09] VITALS: BP 104/62; PULSE 86
[2021-10-02] MEDS: DOXYCYCLINE HYCLATE 100 MG CAP PO SCH (16:19)
== END 2021-10-02 17:01 | disposition home or self-care (01) | DRG 987 ==
LOC: ED 17:18 → SUATTDRO 09-21 03:42 → 2W 09-21 03:42 → 3E 09-23 15:31
DX: Z91.040 Latex allergy status; B37.49 Other urogenital candidiasis; G47.33 Obstructive sleep apnea (adult) (pediatric); D61.810 Antineoplastic chemotherapy induced pancytopenia; J43.9 Emphysema, unspecified; R73.03 Prediabetes; C34.91 Malignant neoplasm of unspecified part of right bronchus or lung; E88.09 Other disorders of plasma-protein metabolism, not elsewhere classified; Z87.891 Personal history of nicotine dependence; Z88.2 Allergy status to sulfonamides; N39.46 Mixed incontinence; C85.90 Non-Hodgkin lymphoma, unspecified, unspecified site; D84.81 Immunodeficiency due to conditions classified elsewhere; E83.51 Hypocalcemia; F41.9 Anxiety disorder, unspecified; D46.Z Other myelodysplastic syndromes; Z88.1 Allergy status to other antibiotic agents; Z92.3 Personal history of irradiation; Z88.8 Allergy status to other drugs, medicaments and biological substances; K90.0 Celiac disease; Z86.14 Personal history of Methicillin resistant Staphylococcus aureus infection; D68.52 Prothrombin gene mutation; N18.30 Chronic kidney disease, stage 3 unspecified

== ENCOUNTER 2021-10-12 15:33 | Inpatient (IN) ==
[2021-10-12] MEDS ORDERED: SODIUM CHLORIDE 0.9% 1000ML 1,000 ML IV ONE ×2 (16:03→18:14)
--- NOTE | 2021-10-12 16:11 | Emergency Department Note ---
Impression & Plan Anemia, Acute UTI (urinary tract infection), Weakness, Acute hypotension, AURORA (acute kidney injury), Thrombocytopenia, Leukopenia ED Provider Note NAME: ASCENCION IVY AGE: 66 SEX: F : 1955 ARRIVES VIA: Walk-In INFORMANT: Patient, ED PROVIDER(S): Shaheen Flores DO CHIEF COMPLAINT: Weakness HPI: The patient is a 66-year-old female who presented to emergency department for an evaluation of generalized weakness. The patient's noticed fevers. She had a fever of 103.3 last evening. She is also had anemia in the past. She feels very weak and thinks that she might be anemic again. She denies having any rectal bleeding. She denies having any black or bloody vomitus. She has had some nausea but no vomiting. She states she has very severe weakness and can barely ambulate without assistance. She said no recent falls. She is on no trauma. The patient has not been exposed to COVID-19 far she knows. She called her family doctor and was referred to the emergency department. The patient did not take any medicine today for fevers. She states she has had some dysuria and frequency but denies having any abdominal pain or flank pain. She does have a history of liver problems in the past. She has been compliant with her usual medications. ROS: See above HPI for pertinent positives & negatives. A total of 10 systems reviewed and were otherwise negative. PAST MEDICAL HISTORY: See Below PAST SURGICAL HISTORY: See Below FAMILY HISTORY: See Below SOCIAL HISTORY: See Below HOME MEDICATIONS: See Below ALLERGIES: See Below VITALS: See Below PHYSICAL EXAMINATION: GENERAL: The patient is awake and alert. She is somewhat listless appearing. EYES: The conjunctivae are clear. The pupils are round and reactive. EARS, NOSE, MOUTH AND THROAT: The nose is without any evidence of any deformity. Mucous membranes are dry. NECK: The neck is nontender and supple. RESPIRATORY: Normal respiratory effort is noted there is no evidence of wheezing rhonchi or rales CARDIOVASCULAR: Regular rate and rhythm noted there no murmurs rubs or gallops normal S1 normal S2. GASTROINTESTINAL: The abdomen is mildly distended. There is no tenderness guarding rigidity. MUSCULOSKELETAL/EXTREMITIES: There is no evidence of gross deformity full range of motion is noted in the hips and shoulders. SKIN: Skin is warm and dry. Trace pedal edema was noted bilaterally. NEUROLOGIC: Patient is awake alert and oriented x3. MEDICAL DECISION MAKING: The patient is a 66-year-old female who presented to the emergency department for an evaluation of generalized weakness. The patient was sent from the cancer center. She has urinary symptoms and was found to have urinary tract infection on urinalysis done at the cancer center. I did review this result. I discussed patient's laboratory and radiographic studies with her. She was treated with IV fluids. She was initially hypotensive but this improved with IV fluids. I discussed her case with the on-call [facility] hospitalist. They have agreed to evaluate the patient in the emergency department for further management and disposition. The patient carries multiple drug allergies. It was difficult to choose an antibiotic. I did review her MAR and shows an antibiotic she was given before by urology. I did discuss the patient's antibiotic choice with her. Her family member was present. Triage Nursing notes reviewed. Prior medical records reviewed Vital Signs: reviewed and remarkable for initial hypotension. Differential diagnosis: Infection, dehydration, metabolic abnormality, hypo/hyperglycemia, electrolyte disturbance, anemia, hypoxia, cardiac sources, intracerebral event, toxicologic, neurologic, as well as other pathologies. ER treatment provided: See below Diagnostics interpreted by me: ECG: EKG was obtained in the emergency department. My interpretation is normal sinus rhythm at 81 bpm. There was no ectopy. There was no acute ST segment abnormalities noted. This was compared to a tracing from September 202020. No changes were noted. Cardiac Monitoring: An order was placed for continuous cardiac monitoring. The monitor shows a rate of 87 bpm with sinus rhythm. Laboratory studies: As stated above and show below. Imaging studies: See below Consultation(s): I discussed this case with Dr. Brown. He will evaluate the patient in the emergency department. Past Med/Surg History Medical History Asthma Celiac disease Cellulitis Recurrent B/L LE - on prophylactic abx (Follows with Dr. Nielson). on chronic Cephalexin and Doxy Chronic back pain Chronic kidney disease Stage III > follows Dr. Fleming Chronic obstructive pulmonary disease Emphysema Cirrhosis of liver Hx of Hep C with cirrhosis Depression History of blood transfusion History of recurrent UTI (urinary tract infection) Hx MRSA infection several yrs ago Hx of cancer of lung s/p radiation (2012), recurrence (2019 in [facility]) s/p radiation- follows with heme/onc Hx of Clostridium difficile infection on Vanco 2x/week for prophylaxis Hx of deep venous thrombosis LLE (1976) Hx of hepatitis C 2013 > "resolved" Hx of non-Hodgkin's lymphoma s/p treatment in 2013 Hydronephrosis b/l chronic hydronephrosis requiring routine stent exchanges Hyperlipidemia Insomnia Migraine Mood disorder Myelodysplasia (myelodysplastic syndrome) Diagnosed 07/09/21 by bone marrow biopsy. Being treated with Azacitidine and Procrit injections. 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 Pagan Thrombocytopenia Chronic (platelet baseline in the 40-70s over the past few months) Venous stasis dermatitis Surgical History H/O bursectomy Right knee History of bone marrow biopsy History of bronchoscopy History of carpal tunnel release Left History of cystoscopy Multiple Bilateral Retrograde Pyelogram (05/27/21): MAC at [facility] History of esophagogastroduodenoscopy (EGD) History of liver biopsy History of tooth extraction History of ureter stent MULTIPLE Hx of bladder repair surgery FOR PROLAPSE Hx of colonoscopy Hx of tonsillectomy Hx of tubal ligation Family History Unknown Heart disease Hypertension Mother Psoriasis Diabetes Social History Smoking Status: Former smoker Tobacco Type: Cigarettes Cigarettes Per Day: Quit 02/2011; Second Hand Exposure: No; Hx Alcohol Use: No Hx Substance Use: No Preferred Language: Croatian Communication Ability: Effective Visual Impairment: No Limitations Hearing Ability: Normal 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 Beliefs That Will Affect Care: None marital status: / Current Living Situation: Family Current Living Situation Comment: Son and son's girlfriend current occupational status: retired How many Children do You have: 2 Feels Safe at Home: Yes Assistive Devices: Glasses Allergies Allergies Allergy/AdvReac Type Severity Reaction Status Date / Time bee venom protein (honey bee) Allergy Severe Difficulty Verified 10/07/21 15:16 Breathing adhesive Allergy Intermediate Red torn Verified 10/07/21 15:16 skin Iodinated Contrast Media Allergy Intermediate Hives Verified 10/07/21 15:16 iodine Allergy Intermediate Hives Verified 10/07/21 15:16 levofloxacin Allergy Intermediate numbness/we Verified 10/07/21 15:16 akness pregabalin Allergy Intermediate fever?/?cher Verified 10/07/21 15:16 h strawberry Allergy Intermediate Hives Verified 10/07/21 15:16 Sulfa (Sulfonamide Allergy Intermediate Rash, hives Verified 10/07/21 15:16 Antibiotics) vancomycin Allergy Intermediate Bullous Verified 10/07/21 15:16 skin rash allopurinol Allergy Mild Rash Verified 10/07/21 15:16 ceftriaxone [From Rocephin] Allergy Mild Rash Verified 10/07/21 15:16 piperacillin [From Zosyn] Allergy Mild Rash Verified 10/07/21 15:16 tazobactam [From Zosyn] Allergy Mild Rash Verified 10/07/21 15:16 venlafaxine Allergy Unknown Unknown Verified 10/07/21 15:16 gluten AdvReac Severe Celiac Dz Verified 10/07/21 15:16 = GI symptoms propoxyphene AdvReac Intermediate [employer] side Verified 10/07/21 15:16 effects Home Meds Home Medications Medication Instructions Recorded Confirmed butorphanol 10 mg/mL nasal spray 1 spray INTRANASAL Q3H PRN 07/16/18 10/07/21 cetirizine 10 mg tablet (Zyrtec) 10 mg PO QAM 07/16/18 10/07/21 folic acid 1 mg tablet 1 mg PO QAM 07/16/18 10/07/21 magnesium oxide 400 mg PO QAM 07/16/18 10/07/21 multivitamin 1 tab PO QAM 07/16/18 10/07/21 triamcinolone acetonide 0.025 % 1 applic TOPICAL BID PRN 07/16/18 10/07/21 topical cream vitamin B complex (B-Complex) 1 tab PO QAM 07/16/18 10/07/21 calcium carbonate 600 mg-vitamin 1 tab PO QPM 11/26/18 10/07/21 D3 20 mcg (800 unit) tablet (Caltrate with Vitamin D3) cyanocobalamin (vitamin B-12) 1,000 mcg IM MONTHLY 02/10/19 10/07/21 1,000 mcg/mL injection solution ferrous sulfate 325 mg (65 mg 325 mg PO QAM 02/10/19 10/07/21 iron) tablet (iron) psyllium husk 0.52 gram capsule 1.04 g PO QAM 08/28/19 10/07/21 (Metamucil) vitamin E 400 unit capsule 400 unit PO QAM 08/28/19 10/07/21 Medical Marijuana 1 ml SUBLINGUAL UD PRN 06/27/20 10/07/21 denosumab 60 mg/mL subcutaneous 60 mg SUBCUT .q 6 months ml 12/17/20 10/07/21 syringe (Prolia) acetaminophen 500 mg capsule 500 mg PO QID PRN 01/24/21 10/07/21 L.acidophilus-B.lactis-B.longum 15 1 cap PO QAM 02/03/21 10/07/21 billion cell capsule coQ10 (ubiquinol) 200 mg capsule 200 mg PO QAM 08/10/21 10/07/21 doxycycline hyclate 100 mg capsule 100 mg PO QAM 08/10/21 10/07/21 Previous Rx's Medication Instructions Recorded ergocalciferol (vitamin D2) 1,250 50,000 unit PO WEEKLY #12 cap 02/28/21 mcg (50,000 unit) capsule albuterol sulfate 90 mcg/actuation 2 puff INHALATION QID PRN #8.5 gm 04/22/21 aerosol inhaler (ProAir HFA) metoprolol succinate 50 mg 25 mg PO QAM #45 tab 05/23/21 tablet,extended release 24 hr Auto Titrating CPAP #1 ea 06/01/21 CPAP Supplies #1 ea 06/01/21 acyclovir 400 mg tablet 400 mg PO BID #60 tab 06/21/21 methocarbamol 750 mg tablet 750 mg PO BID PRN #60 tab 06/21/21 rizatriptan 10 mg tablet 10 mg PO DAILY PRN #9 tab 06/21/21 topiramate 100 mg tablet (Topamax) 100 mg PO .COMPLEX 30 Days #90 tab 06/21/21 oxybutynin chloride 10 mg 10 mg PO QAM #90 tab 07/14/21 tablet,extended release 24 hr mirabegron 50 mg tablet,extended 50 mg PO HS #90 tab 07/25/21 release 24 hr (Myrbetriq) gabapentin 400 mg capsule 400 mg PO QAM 30 Days #30 cap 08/11/21 (Neurontin) potassium chloride 20 mEq 20 meq PO QAM #30 tab 08/11/21 tablet,extended release oxycodone 5 mg tablet 5 mg PO Q4H PRN #20 tab 08/18/21 budesonide-formoterol HFA 80 2 puff INHALATION BID #3 inhaler 08/22/21 mcg-4.5 mcg/actuation aerosol inhaler (Symbicort) clonazepam 1 mg tablet 0.5 mg PO HS #30 tab 08/22/21 quetiapine 50 mg tablet (Seroquel) 50 mg PO HS #30 tab 08/22/21 dmejfzdeej-oyvlixuijndya-duhbgwdo 1 tab PO DAILY PRN 30 Days #12 tab 09/27/21 50 mg-325 mg-40 mg tablet (Esgic) phenazopyridine 200 mg tablet 200 mg PO BID PRN #7 tab 10/03/21 (Pyridium) sertraline 50 mg tablet (Zoloft) 50 mg PO HS #30 tab 10/03/21 Results & Data (ED) Vital Signs Vital Signs - 24 hr 10/12/21 15:42 10/12/21 17:43 Temperature 36.7 C Temperature Source Skin Pulse Rate 85 Pulse Rate [Apical] 87 Pulse Rhythm Regular Pulse Strength Normal Respiratory Rate 20 20 Respiratory Effort / Characteristics Non-Labored Spontaneous Respiratory Depth Normal Respiratory Pattern Regular Blood Pressure 88/42 L Blood Pressure [Left Arm] 113/47 L Blood Pressure Mean 57 Blood Pressure Mean [Left Arm] 69 Pulse Oximetry 97 97 Oxygen Delivery Method Room Air Room Air Sepsis Recent Fever Within 48 Hours No Sepsis New/Unexplained Change in Mental Status N/A Sepsis Action Taken by Nursing No Action Required Home Medications Current Medication List: was personally reviewed by me Laboratory Data Attestation: I reviewed the patient's lab results. Result diagrams: 10/12/21 16:10 10/12/21 16:10 Lab Results 10/12/21 10/12/21 10/12/21 Range/Units 16:10 16:10 16:10 WBC 2.11 L (4.8-10.8) K/uL RBC 2.76 L (4.2-5.4) M/uL Hgb 7.3 L (12.0-16.0) g/dL Hct 23.9 L (37-47) % MCV 86.6 (80-100) fL MCH 26.4 (25-34) pg MCHC 30.5 L (32-36) g/dL RDW Std Deviation 58.7 H (36.4-46.3) fL RDW Coeff of Irasema 19.0 H (11.5-14.5) % Plt Count 19 L* (130-400) K/uL Absolute Nucleated RBC 0.08 H (0-0) K/uL Nucleated RBC % (auto) 3.8 % Neutrophils % (Manual) 53.0 % Lymphocytes % (Manual) 34.0 % Monocytes % (Manual) 11.0 % Eosinophils % (Manual) 2.0 % Neutrophils # (Manual) 1.12 L (1.4-6.5) K/uL Total Absolute Neuts 1.12 L (1.4-6.5) K/uL Lymphocytes # (Manual) 0.72 L (1.2-3.4) K/uL Total Abs Lymphocytes 0.72 L (1.2-3.4) K/uL Monocytes # (Manual) 0.23 (0.11-0.59) K/uL Eosinophils # (Manual) 0.04 (0-0.5) K/uL Hypochromasia Present PT 11.6 (9.0-12.0) Seconds INR 1.2 H (0.9-1.1) APTT 35.1 H (21.0-31.0) Seconds PTT Ratio 1.3 Sodium 134 L (136-145) mmol/L Potassium 4.6 (3.5-5.1) mmol/L Chloride 106 (98-107) mmol/L Carbon Dioxide 21 (21-32) mmol/L Anion Gap 7.0 (3-11) BUN 37 H (7-18) mg/dl Creatinine 1.63 H (0.6-1.2) mg/dl Est Cr Clr Drug Dosing 25.6 ml/min Est GFR ( Amer) 37.7 ml/min Est GFR (Non-Af Amer) 32.5 ml/min BUN/Creatinine Ratio 22.8 H (10-20) Glucose 130 H (70-99) mg/dl Lactate (0.4-2.0) mmol/L Calcium 8.4 L (8.5-10.1) mg/dl Magnesium 2.5 H (1.8-2.4) mg/dl Total Bilirubin 0.6 (0.2-1) mg/dl AST 14 L (15-37) U/L ALT 27 (12-78) Alkaline Phosphatase 78 (45-117) U/L Troponin I < 0.015 (0-0.045) ng/ml Total Protein 6.9 (6.4-8.2) gm/dl Albumin 3.3 L (3.4-5.0) gm/dl Globulin 3.6 (2.5-4.0) gm/dl Albumin/Globulin Ratio 0.9 (0.9-2) Procalcitonin (0-0.5) ng/ml 10/12/21 10/12/21 Range/Units 16:10 16:45 WBC (4.8-10.8) K/uL RBC (4.2-5.4) M/uL Hgb (12.0-16.0) g/dL Hct (37-47) % MCV (80-100) fL MCH (25-34) pg MCHC (32-36) g/dL RDW Std Deviation (36.4-46.3) fL RDW Coeff of Irasema (11.5-14.5) % Plt Count (130-400) K/uL Absolute Nucleated RBC (0-0) K/uL Nucleated RBC % (auto) % Neutrophils % (Manual) % Lymphocytes % (Manual) % Monocytes % (Manual) % Eosinophils % (Manual) % Neutrophils # (Manual) (1.4-6.5) K/uL Total Absolute Neuts (1.4-6.5) K/uL Lymphocytes # (Manual) (1.2-3.4) K/uL Total Abs Lymphocytes (1.2-3.4) K/uL Monocytes # (Manual) (0.11-0.59) K/uL Eosinophils # (Manual) (0-0.5) K/uL Hypochromasia PT (9.0-12.0) Seconds INR (0.9-1.1) APTT (21.0-31.0) Seconds PTT Ratio Sodium (136-145) mmol/L Potassium (3.5-5.1) mmol/L Chloride (98-107) mmol/L Carbon Dioxide (21-32) mmol/L Anion Gap (3-11) BUN (7-18) mg/dl Creatinine (0.6-1.2) mg/dl Est Cr Clr Drug Dosing ml/min Est GFR ( Amer) ml/min Est GFR (Non-Af Amer) ml/min BUN/Creatinine Ratio (10-20) Glucose (70-99) mg/dl Lactate 1.2 (0.4-2.0) mmol/L Calcium (8.5-10.1) mg/dl Magnesium (1.8-2.4) mg/dl Total Bilirubin (0.2-1) mg/dl AST (15-37) U/L ALT (12-78) Alkaline Phosphatase (45-117) U/L Troponin I (0-0.045) ng/ml Total Protein (6.4-8.2) gm/dl Albumin (3.4-5.0) gm/dl Globulin (2.5-4.0) gm/dl Albumin/Globulin Ratio (0.9-2) Procalcitonin 6.87 H (0-0.5) ng/ml Administered Medications Ciprofloxacin (Cipro / D5w) 400 mg in 200 mls @ 200 mls/hr IV NOW STA Stop: 10/12/21 18:32 Last Admin: 10/12/21 17:42 Dose: 200 mls/hr Documented by: [id number] Discontinued Medications Sodium Chloride (Nss 1000ml) 1,000 mls @ 999 mls/hr IV .Q1H1M ONE Stop: 10/12/21 17:03 Last Admin: 10/12/21 16:24 Dose: 999 mls/hr Documented by: [id number] Imaging Data Radiologist's Impression: Chest X-Ray 10/12/21 16:03 XR chest 1V portable CLINICAL HISTORY: SEPSIS COMPARISON STUDY: Chest CT August 01, 2021. Chest radiograph September 20, 2021. FINDINGS: Sclerotic foci of the anterior right second and third ribs are again noted. Adjacent irregular airspace opacity within the right upper lobe is unch anged. This favors scarring. There is no pneumothorax or pleural effusion. Mild right basilar opacity is present. There are few patchy left lung airspace opacities. Old deformity of the proximal left humerus is incidentally noted. IMPRESSION: Persistent mild right basilar opacity and a few patchy left lung airspace opacities. The findings may reflect an infectious process. Radiographic follow-up to ensure resolution is recommended. ACT 112: Negative or not required by law. Electronically signed by: Juno Garcia M.D. 10/12/2021 4:39 PM Discharge Plan Visit Data Chief Complaint: Urinary Symptoms Stated Complaint: UTI, BLOOD TRANSFUSION, [facility] REFERRED ED Provider: Shaheen Flores Discharge Problem: Anemia, Acute UTI (urinary tract infection), Weakness, Acute hypotension, AURORA (acute kidney injury), Thrombocytopenia, Leukopenia Patient Disposition: Being Evaluated by Hospitalist Forms Stand Alone Forms: My [facility] [employer] Prescriptions Prescriptions: No Action Prolia 60 mg/mL syringe 60 mg subcut .q 6 months RF: 0 calcium carbonate-vitamin D3 [Caltrate with Vitamin D3] 600 mg(1,500mg) -800 u nit tablet 1 tab PO QPM RF: 0 ergocalciferol (vitamin D2) 1,250 mcg (50,000 unit) capsule 50,000 unit PO WEEKLY Qty: 12 RF: 1 albuterol sulfate [ProAir HFA] 90 mcg/actuation HFA aerosol inhaler 2 puff INHALATION QID PRN (Reason: Wheezing) Qty: 8.5 RF: 5 metoprolol succinate 50 mg tablet extended release 24 hr 25 mg PO QAM Qty: 45 RF: 3 topiramate [Topamax] 100 mg tablet 100 mg PO .COMPLEX 30 Days Qty: 90 RF: 5 rizatriptan 10 mg tablet 10 mg PO DAILY PRN (Reason: Migraine Headache) Qty: 9 RF: 5 methocarbamol 750 mg tablet 750 mg PO BID PRN (Reason: Pain) Qty: 60 RF: 5 acyclovir 400 mg tablet 400 mg PO BID Qty: 60 RF: 3 oxybutynin chloride 10 mg tablet extended release 24hr 10 mg PO QAM Qty: 90 RF: 1 Myrbetriq 50 mg tablet extended release 24 hr 50 mg PO HS Qty: 90 RF: 3 gabapentin [Neurontin] 400 mg capsule 400 mg PO QAM 30 Days Qty: 30 RF: 3 potassium chloride 20 mEq tablet extended release 20 meq PO QAM Qty: 30 RF: 5 quetiapine [Seroquel] 50 mg tablet 50 mg PO HS Qty: 30 RF: 5 clonazepam 1 mg tablet 0.5 mg PO HS Qty: 30 RF: 2 budesonide-formoterol [Symbicort] 80-4.5 mcg/actuation HFA aerosol inhaler 2 puff inhalation BID Qty: 3 RF: 3 xjarpwfzwd-ywubragrypobk-hqgd [Esgic] 50-325-40 mg tablet 1 tab PO DAILY PRN (Reason: HEADACHES) 30 Days Qty: 12 RF: 0 phenazopyridine [Pyridium] 200 mg tablet 200 mg PO BID PRN (Reason: pain) Qty: 7 RF: 0 sertraline [Zoloft] 50 mg tablet 50 mg PO HS Qty: 30 RF: 11 (DME) Auto Titrating CPAP Misc See Rx Instructions .ROUTE .MEDSUPPLY Qty: 1 RF: 0 (DME) CPAP Supplies Misc See Rx Instructions .ROUTE .MEDSUPPLY Qty: 1 RF: 0 cyanocobalamin (vitamin B-12) 1,000 mcg/mL Solution 1,000 mcg IM MONTHLY RF: 0 ferrous sulfate [iron] 325 mg (65 mg iron) Tablet 325 mg PO QAM RF: 0 vitamin E 400 unit Capsule 400 unit PO QAM RF: 0 psyllium husk [Metamucil] 0.52 gram Capsule 1.04 g PO QAM RF: 0 multivitamin Tablet 1 tab PO QAM RF: 0 butorphanol 10 mg/mL [place],Non-Aerosol 1 spray INTRANASAL Q3H PRN (Reason: Migraine Headache) RF: 0 cetirizine [Zyrtec] 10 mg Tablet 10 mg PO QAM RF: 0 triamcinolone acetonide 0.025 % Cream 1 applic TOPICAL BID PRN (Reason: Skin Irritation) RF: 0 vitamin B complex [B-Complex] Tablet 1 tab PO QAM RF: 0 folic acid 1 mg Tablet 1 mg PO QAM RF: 0 magnesium oxide 400 mg Capsule 400 mg PO QAM RF: 0 Medical Marijuana 1 ml sublingual UD PRN (Reason: Pain) RF: 0 coQ10 (ubiquinol) 200 mg Capsule 200 mg PO QAM RF: 0 doxycycline hyclate 100 mg capsule 100 mg PO QAM RF: 0 oxycodone 5 mg tablet 5 mg PO Q4H PRN (Reason: pain) Qty: 20 RF: 0 acetaminophen 500 mg Capsule 500 mg PO QID PRN (Reason: Pain) RF: 0 L.acidoph-B.lactis-B.longum 15 billion cell Capsule 1 cap PO QAM RF: 0 Referrals Referrals: Reynold Villegas MD [Primary Care Provider] -
[2021-10-12 16:37] LABS: INR 1.2 (0.9-1.1); Partial Thromboplastin Ratio 1.3; Partial Thromboplastin Time 35.1 Seconds (21.0-31.0); Prothrombin Time 11.6 Seconds (9.0-12.0)
[2021-10-12 16:40] LABS: Hematocrit (blood only) 23.9 % (37-47); Hemoglobin 7.3 g/dL (12.0-16.0); Mean Corpuscular Hemoglobin 26.4 pg (25-34); Mean Corpuscular Hgb Conc 30.5 g/dL (32-36); Mean Corpuscular Volume 86.6 fL (80-100); Nucleated RBC # (auto) 0.08 K/uL (0-0); Nucleated RBC % (auto) 3.8 %; Platelet Count 19 K/uL (130-400); RDW Standard Deviation 58.7 fL (36.4-46.3); Red Blood Count 2.76 M/uL (4.2-5.4); White Blood Count 2.11 K/uL (4.8-10.8)
--- NOTE | 2021-10-12 16:41 | XRay Report ---
XR chest 1V portable CLINICAL HISTORY: SEPSIS COMPARISON STUDY: Chest CT August 01, 2021. Chest radiograph September 20, 2021. FINDINGS: Sclerotic foci of the anterior right second and third ribs are again noted. Adjacent irregu lar airspace opacity within the right upper lobe is unchanged. This favors scarring. There is no pneu mothorax or pleural effusion. Mild right basilar opacity is present. There are few patchy left lung a irspace opacities. Old deformity of the proximal left humerus is incidentally noted. IMPRESSION: Persistent mild right basilar opacity and a few patchy left lung airspace opacities. The findings may reflect an infectious process. Radiographic follow-up to ensure resolution is recommend ed. ACT 112: Negative or not required by law. Electronically signed by: Juno Garcia M.D. 10/12/2021 4:39 PM
[2021-10-12 16:43] LABS: Albumin Level 3.3 gm/dl (3.4-5.0); BUN Creatinine Ratio 22.8 (10-20); Blood Urea Nitrogen 37 mg/dl (7-18); Calcium 8.4 mg/dl (8.5-10.1); Carbon Dioxide 21 mmol/L (21-32); Chloride 106 mmol/L (98-107); Creatinine Clr Calc Pharmacy 25.6 ml/min; Est GFR (African American) 37.7 ml/min; Est GFR (Non-African American) 32.5 ml/min; Glucose 130 mg/dl (70-99); Magnesium 2.5 mg/dl (1.8-2.4); Potassium 4.6 mmol/L (3.5-5.1); Sodium 134 mmol/L (136-145)
[2021-10-12 16:49] LABS: Alanine Aminotransferase 27 (12-78); Albumin Globulin Ratio 0.9 (0.9-2); Alkaline Phosphatase 78 U/L (45-117); Aspartate Aminotransferase 14 U/L (15-37); Bilirubin,Total 0.6 mg/dl (0.2-1); Globulin 3.6 gm/dl (2.5-4.0); Total Protein 6.9 gm/dl (6.4-8.2); Troponin I < 0.015 ng/ml (0-0.045)
[2021-10-12 17:20] LABS: ALC (manual) 0.72 K/uL (1.2-3.4); ANC (manual) 1.12 K/uL (1.4-6.5); Eosinophils # (manual) 0.04 K/uL (0-0.5); Hypochromasia Present; Lymphocytes # (manual) 0.72 K/uL (1.2-3.4); Monocytes # (manual) 0.23 K/uL (0.11-0.59); Neutrophils # (manual) 1.12 K/uL (1.4-6.5)
[2021-10-12] MEDS ORDERED: CIPROFLOXACIN / D5W 400 MG/200 ML BAG IV STA (17:33)
[2021-10-12] MEDS ORDERED: LINEZOLID 600 MG/300 ML D5W IV STA (18:08)
[2021-10-12] MEDS ORDERED: LINEZOLID CONSULT ACTIVE PRN (18:08)
[2021-10-12] MEDS ORDERED: AZTREONAM 2,000 MG in DEXTROSE 5% 100 ML IV STA (18:21)
[2021-10-12] MEDS ORDERED: SODIUM CHLORIDE 0.9% 1000ML 500 ML IV ONE (18:22)
[2021-10-12] MEDS ORDERED: CASPOFUNGIN 70 MG in SODIUM CHLORIDE 0.9% 250 ML IV STA (18:24)
[2021-10-12 18:32] LABS: Influenza A virus by PCR Negative (Neg); Influenza B virus by PCR Negative (Neg); RSV by PCR Negative (Neg); SARS CoV2 RNA(COVID-19) InHosp NEGATIVE (Negative)
[2021-10-12] MEDS ORDERED: LINEZOLID 600 MG/300 ML BAG IV ONE (19:30)
--- NOTE | 2021-10-12 20:20 | History & Physical Report ---
Date of Service October 12, 2021 Assessment & Plan (1) Fever: Plan: Empiric treatment with aztreonam, linezolid and caspofungin pending urine and blood cultures Fortunately neutrophils > 1 at this time therefore no need for neutropenic precautions Procalcitonin elevated ?source UTI vs. pneumonia vs. acute shawn Previous admission for julia glabrata UTI (2) Generalized weakness: Plan: PT/OT evals, Rx as above (3) AURORA (acute kidney injury): Plan: Suspect pre-renal in relation to probable UTI Renal US to assess for obstructive uropathy in setting of known ureteral stents NSS 1.5L bolus total given in the ER Continue LR @ 125ml/hr when not having a blood transfusion (4) RUQ pain: Plan: US liver to assess for gallbladder disease although patient reports this pain is not acute (5) Pancytopenia due to antineoplastic chemotherapy: Plan: Secondary to chemotherapy and MDS Planned transfusions 2 units packed RBCs irradiated in the MTU - will order for here in the setting of generalized weakness (?contributing) (6) Myelodysplasia (myelodysplastic syndrome): Plan: Consult hematology (7) SACHA (obstructive sleep apnea): Plan: CPAP HS (8) Hx of Clostridium difficile infection: Plan: Vancomycin 125mg PO daily while on empiric antibiotics (9) Celiac disease: Plan: Gluten free diet (10) Cirrhosis of liver: Plan: Noted history of treated hep C Plan: VTE Prophylaxis - chemical deferred in setting of thrombocytopenia Diet - gluten free Disposition - admit to PCU Admission and Anticipated Discharge Date Admission Date: October 12, 2021 History of Present Illness Chief Complaint: Fever, generalized weakness Primary Care Provider: Reynold Villegas MD Aleja Duron is a 66 year old female with MDS who presents to the ER with fever starting yesterday. She reports having a fever yesterday of 103.3 degrees Fahrenheit. She denies any nasal congestion, sinus pain, cough, chest pain, abdominal pain, diarrhea. She reports being generally weak. She reports still having a fever today but she can't remember what it was. Dr Bloom wanted lab work and urine sample done, performed earlier today. She was advised to go to the emergency room following this. In the ER she was noted to be anemia with hemoglobin 7.3 from 7.1 earlier in the day. She has planned 2 units irradiated packed RBCs in the MTU. She denies any melena or other known bleeding. Creatine 1.63 from baseline 0.9. She was hypotensive in the ER and received NSS 1L bolus. She was started on ciprofloxacin however this was changed to aztreonam, linezolid and caspofungin based on prior cultures and allergies to cefepime, Zosyn and vancomycin. Absolute neutrophil count currently > 1. Despite hypotension lactate is within normal limits. She was referred to medicine for admission and ongoing management of suspected UTI sepsis. Allergies Allergy/AdvReac Type Severity Reaction Status Date / Time bee venom protein (honey bee) Allergy Severe Difficulty Verified 10/12/21 18:37 Breathing adhesive Allergy Intermediate Red torn Verified 10/12/21 18:37 skin Iodinated Contrast Media Allergy Intermediate Hives Verified 10/12/21 18:37 iodine Allergy Intermediate Hives Verified 10/12/21 18:37 levofloxacin Allergy Intermediate numbness/we Verified 10/12/21 18:37 akness pregabalin Allergy Intermediate fever?/?cher Verified 10/12/21 18:37 h strawberry Allergy Intermediate Hives Verified 10/12/21 18:37 Sulfa (Sulfonamide Allergy Intermediate Rash, hives Verified 10/12/21 18:37 Antibiotics) vancomycin Allergy Intermediate Bullous Verified 10/12/21 18:37 skin rash allopurinol Allergy Mild Rash Verified 10/12/21 18:37 ceftriaxone [From Rocephin] Allergy Mild Rash Verified 10/12/21 18:37 piperacillin [From Zosyn] Allergy Mild Rash Verified 10/12/21 18:37 tazobactam [From Zosyn] Allergy Mild Rash Verified 10/12/21 18:37 venlafaxine Allergy Unknown Unknown Verified 10/12/21 18:37 gluten AdvReac Severe Celiac Dz Verified 10/12/21 18:37 = GI symptoms propoxyphene AdvReac Intermediate OFFICE ASSISTANCE side Verified 10/12/21 18:37 effects Home Medications Medication Instructions Recorded Confirmed Type cetirizine 10 mg tablet (Zyrtec) 10 mg PO QAM 07/16/18 10/12/21 History folic acid 1 mg tablet 1 mg PO QAM 07/16/18 10/12/21 History magnesium oxide 400 mg PO QAM 07/16/18 10/12/21 History multivitamin 1 tab PO QAM 07/16/18 10/12/21 History triamcinolone acetonide 0.025 % 1 applic TOPICAL BID PRN 07/16/18 10/12/21 History topical cream vitamin B complex (B-Complex) 1 tab PO QAM 07/16/18 10/12/21 History calcium carbonate 600 mg-vitamin 1 tab PO QPM 11/26/18 10/12/21 History D3 20 mcg (800 unit) tablet (Caltrate with Vitamin D3) cyanocobalamin (vitamin B-12) 1,000 mcg IM MONTHLY 02/10/19 10/12/21 History 1,000 mcg/mL injection solution ferrous sulfate 325 mg (65 mg 325 mg PO QAM 02/10/19 10/12/21 History iron) tablet (iron) vitamin E 400 unit capsule 400 unit PO QAM 08/28/19 10/12/21 History Medical Marijuana 1 ml SUBLINGUAL UD PRN 06/27/20 10/12/21 History denosumab 60 mg/mL subcutaneous 60 mg SUBCUT .q 6 months ml 12/17/20 10/12/21 History syringe (Prolia) acetaminophen 500 mg capsule 500 mg PO QID PRN 01/24/21 10/12/21 History L.acidophilus-B.lactis-B.longum 15 1 cap PO QAM 02/03/21 10/12/21 History billion cell capsule ergocalciferol (vitamin D2) 1,250 50,000 unit PO WEEKLY #12 cap 02/28/21 10/12/21 Rx mcg (50,000 unit) capsule albuterol sulfate 90 mcg/actuation 2 puff INHALATION QID PRN #8.5 gm 04/22/21 10/12/21 Rx aerosol inhaler (ProAir HFA) metoprolol succinate 50 mg 25 mg PO QAM #45 tab 05/23/21 10/12/21 Rx tablet,extended release 24 hr Auto Titrating CPAP #1 ea 06/01/21 10/07/21 Rx CPAP Supplies #1 ea 06/01/21 10/07/21 Rx acyclovir 400 mg tablet 400 mg PO BID #60 tab 06/21/21 10/12/21 Rx methocarbamol 750 mg tablet 750 mg PO BID PRN #60 tab 06/21/21 10/12/21 Rx rizatriptan 10 mg tablet 10 mg PO DAILY PRN #9 tab 06/21/21 10/12/21 Rx topiramate 100 mg tablet (Topamax) 100 mg PO .COMPLEX 30 Days #90 tab 06/21/21 10/12/21 Rx oxybutynin chloride 10 mg 10 mg PO QAM #90 tab 07/14/21 10/12/21 Rx tablet,extended release 24 hr mirabegron 50 mg tablet,extended 50 mg PO HS #90 tab 07/25/21 10/12/21 Rx release 24 hr (Myrbetriq) coQ10 (ubiquinol) 200 mg capsule 200 mg PO QAM 08/10/21 10/12/21 History doxycycline hyclate 100 mg capsule 100 mg PO QDD 08/10/21 10/12/21 History gabapentin 400 mg capsule 400 mg PO QAM 30 Days #30 cap 08/11/21 10/12/21 Rx (Neurontin) potassium chloride 20 mEq 20 meq PO QAM #30 tab 08/11/21 10/12/21 Rx tablet,extended release oxycodone 5 mg tablet 5 mg PO Q4H PRN #20 tab 08/18/21 10/12/21 Rx budesonide-formoterol HFA 80 2 puff INHALATION BID #3 inhaler 08/22/21 10/12/21 Rx mcg-4.5 mcg/actuation aerosol inhaler (Symbicort) clonazepam 1 mg tablet 0.5 mg PO HS #30 tab 08/22/21 10/12/21 Rx quetiapine 50 mg tablet (Seroquel) 50 mg PO HS #30 tab 08/22/21 10/12/21 Rx xqtqezaatd-qsndbovjsowxg-cchqkdrl 1 tab PO DAILY PRN 30 Days #12 tab 09/27/21 10/12/21 Rx 50 mg-325 mg-40 mg tablet (Esgic) phenazopyridine 200 mg tablet 200 mg PO BID PRN #7 tab 10/03/21 10/12/21 Rx (Pyridium) sertraline 50 mg tablet (Zoloft) 50 mg PO HS #30 tab 10/03/21 10/12/21 Rx cephalexin 500 mg capsule 500 mg PO QDD 10/12/21 10/12/21 History Past Med/Surg History Medical History (Updated 10/13/21 @ 07:06 by Leeroy Brown MD) Asthma Celiac disease Cellulitis Recurrent B/L LE - on prophylactic abx (Follows with Dr. Nielson). on chronic Cephalexin and Doxy Chronic back pain Chronic kidney disease Stage III > follows Dr. Fleming Chronic obstructive pulmonary disease Emphysema Cirrhosis of liver Hx of Hep C with cirrhosis Depression History of blood transfusion History of recurrent UTI (urinary tract infection) Hx MRSA infection several yrs ago Hx of cancer of lung s/p radiation (2012), recurrence (2019 in [facility]) s/p radiation- follows with heme/onc Hx of Clostridium difficile infection on Vanco 2x/week for prophylaxis Hx of deep venous thrombosis LLE (1976) Hx of hepatitis C 2013 > "resolved" Hx of non-Hodgkin's lymphoma s/p treatment in 2013 Hydronephrosis b/l chronic hydronephrosis requiring routine stent exchanges Hyperlipidemia Insomnia Migraine Mood disorder Myelodysplasia (myelodysplastic syndrome) Diagnosed 07/09/21 by bone marrow biopsy. Being treated with Azacitidine and Procrit injections. 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 Pagan Thrombocytopenia Chronic (platelet baseline in the 40-70s over the past few months) Venous stasis dermatitis Surgical History H/O bursectomy Right knee History of bone marrow biopsy History of bronchoscopy History of carpal tunnel release Left History of cystoscopy Multiple Bilateral Retrograde Pyelogram (05/27/21): MAC at [facility] History of esophagogastroduodenoscopy (EGD) History of liver biopsy History of tooth extraction History of ureter stent MULTIPLE Hx of bladder repair surgery FOR PROLAPSE Hx of colonoscopy Hx of tonsillectomy Hx of tubal ligation Family History Unknown Heart disease Hypertension Mother Psoriasis Diabetes Social History Smoking Status: Unknown if ever smoked Tobacco Type: Cigarettes Cigarettes Per Day: Quit 02/2011; Second Hand Exposure: No; Hx Alcohol Use: No Hx Substance Use: No Preferred Language: Kiswahili Communication Ability: Effective Visual Impairment: No Limitations Hearing Ability: Normal Pipe Bowl Paint Trimmer Required: No Beliefs That Will Affect Care: None marital status: / Current Living Situation: Family Current Living Situation Comment: Son and son's girlfriend current occupational status: retired How many Children do You have: 2 Feels Safe at Home: Yes Safety Concerns: Feels Safe At This Time Assistive Devices: Glasses Review of Systems Review of Systems: All systems reviewed & are unremarkable except as noted in HPI & below Physical Exam Constitutional: well developed; + not well nourished and no acute distress Eyes: PERRL, conjunctivae normal, anicteric sclerae ENMT: Mouth: + dry oral mucous membranes Neck: trachea midline, no thyromegaly Respiratory: normal respiratory effort, lungs clear to auscultation Cardiovascular: RRR, no murmur, no edema Gastrointestinal (Abdomen): Inspection/Auscultation: normal bowel sounds Percussion/Palpation: + abdomen tender (RUQ pain) and abdomen soft; no guarding and abdomen not rigid Skin: no rashes, warm and dry venous stasis changes of lower extremities without cellulitic changes Neurologic: moves all extremities and awake; no focal motor deficits (no lateralizing weakness) and not confused Psychiatric: A+Ox3, euthymic affect Results & Data Results & Data ([facility]) Vital Signs (Past 12 Hours) Vital Signs Temp Pulse Pulse Resp BP BP Pulse Ox 10/12/21 19:11 79 22 96 10/12/21 17:43 87 20 113/47 L 97 10/12/21 15:42 36.7 C 85 20 88/42 L 97 Diagnostic Findings XR chest 1V portable CLINICAL HISTORY: SEPSIS COMPARISON STUDY: Chest CT August 01, 2021. Chest radiograph September 20, 2021. FINDINGS: Sclerotic foci of the anterior right second and third ribs are again noted. Adjacent irregular airspace opacity within the right upper lobe is unchanged. This favors scarring. There is no pneumothorax or pleural effusion. Mild right basilar opacity is present. There are few patchy left lung airspace opacities. Old deformity of the proximal left humerus is incidentally noted. IMPRESSION: Persistent mild right basilar opacity and a few patchy left lung airspace opacities. The findings may reflect an infectious process. Radiographic follow-up to ensure resolution is recommended. Medications Administered ER Medications Given: NSS 1L bolus ECG Rate (beats per minute): 81 Rhythm: normal sinus Findings: no acute ischemic change Comparison ECG Date: from (October 12, 2021) Change: no significant change Code Status & VTE Plan Code Status Full VTE Prophylaxis Plan VTE Prophylaxis will be ordered: No Reason for no VTE drug order: Contraindicated PG Care Time/CCT Total # of Minutes Spent Total Time Spent with Patient: Total time spent is greater than 50% in coordination of care (as documented) at patient's floor/unit and/or counseling patient: Coding Level of Care Code 87924 Initial Inpt Care Lvl 3 Diagnoses Fever R50.9 Generalized weakness R53.1 AURORA (acute kidney injury) N17.9 Pancytopenia due to antineoplastic chemotherapy D61.810; T45.1X5A SACHA (obstructive sleep apnea) G47.33 Myelodysplasia (myelodysplastic syndrome) D46.9 Hx of Clostridium difficile infection Z86.19 Celiac disease K90.0 RUQ pain R10.11 Cirrhosis of liver K74.60
[2021-10-12 22:39] LABS: Appearance Urine Cloudy (Clear); Bilirubin Urine Negative (Negative); Blood Urine 3+ (Negative); Color Urine Dark Yellow; Epithelial Cell Urine Auto >30 /lpf (0-5); Glucose Urine UA Negative (Negative); Ketones Urine Negative (Negative); Leukocyte Esterase Urine 3+ (Negative); Nitrite Urine Positive (Negative); Protein Urine 2+ (Negative); Specific Gravity Urine 1.016 (1.000-1.030); Urobilinogen Urine Negative (Negative); WBC Urine Automated >30 /hpf (0-5)
[2021-10-12] MEDS ORDERED: BUTALBITAL/ACETAMIN/CAFFEINE TAB PO PRN (23:21)
[2021-10-12] MEDS ORDERED: PHENAZOPYRIDINE HCL 200 MG TAB PO PRN (23:21)
[2021-10-12] MEDS ORDERED: TRIAMCINOLONE ACET 0.025% CR 15 GM TUBE TOP PRN (23:21)
[2021-10-12 23:22] LABS: Mucus Urine Present (None Prsent); RBC Urine Automated >30 /hpf (0-4)
[2021-10-12 23:24] LABS: Bacteria Urine Automated 3+ (Negative)
[2021-10-13] MEDS: clonazePAM 0.5 MG TAB PO SCH ×2 (00:56→22:52)
[2021-10-13] MEDS: ACYCLOVIR 400 MG TAB PO SCH ×3 (00:56→22:33)
[2021-10-13] MEDS: LACTATED RINGER'S 1,000 ML IV SCH ×3 (00:57→19:15)
[2021-10-13] MEDS: CALCIUM 600MG + VIT D 400 IU TAB PO SCH ×2 (00:57→22:33)
[2021-10-13] MEDS: QUEtiapine FUMARATE 25 MG TABLET PO SCH ×2 (00:57→22:33)
[2021-10-13] MEDS: MIRABEGRON ER 25 MG TAB PO SCH ×2 (00:57→22:34)
[2021-10-13] MEDS: oxyCODONE HCL IR 5 MG TAB (IMMEDIATE RELEASE) PO PRN ×3 (01:53→19:20)
[2021-10-13] MEDS: TOPIRAMATE 100 MG TAB PO SCH ×3 (01:53→22:33)
[2021-10-13] MEDS: METHOCARBAMOL 750 MG TABLET PO PRN ×2 (01:54→15:03)
[2021-10-13] MEDS: AZTREONAM 2,000 MG in DEXTROSE 5% 100 ML IV SCH ×3 (04:11→22:29)
[2021-10-13] MEDS: ACETAMINOPHEN 325 MG TAB PO PRN ×2 (04:11→22:06)
[2021-10-13] MEDS ORDERED: MAGNESIUM OXIDE 400 MG TAB ONE (07:34)
[2021-10-13] MEDS ORDERED: POTASSIUM CHLORIDE 10 MEQ TABCR PO ONE (07:34)
[2021-10-13] MEDS ORDERED: CETIRIZINE HCL 10 MG TABLET ONE (07:34)
[2021-10-13 07:59] LABS: Hematocrit (blood only) 18.9 % (37-47); Hemoglobin 5.8 g/dL (12.0-16.0); Hypochromasia Present; Mean Corpuscular Hemoglobin 26.2 pg (25-34); Mean Corpuscular Hgb Conc 30.7 g/dL (32-36); Mean Corpuscular Volume 85.5 fL (80-100); Nucleated RBC # (auto) 0.07 K/uL (0-0); Nucleated RBC % (auto) 4.3 %; Platelet Count 17 K/uL (130-400); Platelet Estimate SIGNIFIC DECREASED (Normal); RDW Standard Deviation 57.4 fL (36.4-46.3); Red Blood Count 2.21 M/uL (4.2-5.4); Schistocytes 1+; White Blood Count 1.64 K/uL (4.8-10.8)
[2021-10-13 08:00] LABS: ALC (manual) 0.99 K/uL (1.2-3.4); ANC (manual) 0.55 K/uL (1.4-6.5); Lymphocytes # (manual) 0.99 K/uL (1.2-3.4); Lymphocytes % (manual) 60.4 %; Monocytes % (manual) 6.3 %; Neutrophils # (manual) 0.55 K/uL (1.4-6.5); Neutrophils % (manual) 33.3 %
[2021-10-13 08:04] LABS: Albumin Level 2.5 gm/dl (3.4-5.0); BUN Creatinine Ratio 23.8 (10-20); Calcium 7.7 mg/dl (8.5-10.1); Est GFR (African American) 60.6 ml/min; Est GFR (Non-African American) 52.3 ml/min; Potassium 4.3 mmol/L (3.5-5.1)
[2021-10-13 08:08] LABS: Albumin Globulin Ratio 0.8 (0.9-2); Bilirubin,Total 0.6 mg/dl (0.2-1); Total Protein 5.5 gm/dl (6.4-8.2)
--- NOTE | 2021-10-13 08:08 | Ultrasound Report ---
US abdomen complete CLINICAL HISTORY: RUQ pain, sepsis. History of hepatitis C with cirrhosis. COMPARISON: Previous CT of the abdomen and pelvis from 09/26/2021 TECHNIQUE: Multiple grayscale and color images of the abdomen. FINDINGS: Pancreas: The pancreas is within normal limits with no focal mass or peripancreatic fluid collection identified. The pancreatic duct measures 2 mm. Liver: The liver is heterogeneous in echogenicity There is no evidence for a focal mass. There is no intrahepatic biliary duct dilatation. There is a trace amount of fluid seen in Morison's pouch. Gallbladder: The gallbladder is distended with cholelithiasis. There is no evidence for wall thicken ing. There is minimal pericholecystic edema. However, the patient was medicated and Villagomez's sign can not be evaluated. Common Bile Duct: (CBD): Common bile duct is at the upper limits of normal in size measuring 7 mm Inferior Vena Cava (IVC): The imaged IVC is patent. Right kidney: There is again evidence for a ureteral stent in place. However, there is hydronephrosi s present. There is a 5 mm nonobstructing lower pole renal calculus. There is increased echogenicity characteristic of medical renal disease. The kidney measures 9.3 x 3.2 x 4.5 cm. Incidental note is m elodia of a 1 cm cyst. Left kidney: There is again evidence for a ureteral stent in place. However, there is also mild hydro nephrosis present. Increased echogenicity is present characteristic of medical renal disease. The kid anitra measures 10.7 x 4.2 x 4.2 cm. Incidental note is made of multiple cysts, the largest measuring 1. 4 cm. Spleen: The spleen is homogeneous in echogenicity and enlarged. It measures 14.7 cm in greatest lengt h. Aorta: The aorta is normal in size with no evidence for aneurysmal dilatation. IMPRESSION: 1. Heterogeneous echogenicity of the liver characteristic of hepatocellular disease. 2. Mild splenomegaly. 3. Compared to the previous CT, there are bilateral ureteral stents in place. However, there is bilat eral hydronephrosis demonstrated. 4. Cholelithiasis with mild pericholecystic edema and distention of the gallbladder. Early cholecysti tis cannot be completely excluded. ACT 112: Negative or not required by law. Electronically signed by: Holland Rodgers M.D. 10/13/2021 8:07 AM
[2021-10-13] MEDS: FLUTICASONE/VILANTEROL 100/25MCG 14 PUFFS/INHALER INH SCH (08:56)
[2021-10-13] MEDS: ADVANCED PROBIOTIC 1250 MG CAPSULE PO SCH (08:57)
[2021-10-13] MEDS: CETIRIZINE HCL 10 MG TABLET PO SCH (08:57)
[2021-10-13] MEDS: GABAPENTIN 400 MG CAP PO SCH (08:58)
[2021-10-13] MEDS: POTASSIUM CHLORIDE CRTAB 20 MEQ TABCR PO SCH (08:58)
[2021-10-13] MEDS: FERROUS SULFATE 325 MG TAB PO SCH (08:59)
[2021-10-13] MEDS: MULTIVITAMIN TAB PO SCH (08:59)
[2021-10-13] MEDS: FOLIC ACID 1 MG TAB PO SCH (08:59)
[2021-10-13] MEDS: MAGNESIUM OXIDE 400 MG TAB PO SCH (08:59)
[2021-10-13] MEDS ORDERED: NON-FORMULARY MEDICATION (Coq10 (Ubiquinol) 200 mg Capsule) PO SCH (09:00)
[2021-10-13] MEDS: TOCOPHERYL, DL-ALPHA 400 UNITS 180 MG CAP PO SCH (09:00)
[2021-10-13] MEDS: VITAMIN B COMPLEX TAB PO SCH (09:00)
[2021-10-13] MEDS: OXYBUTYNIN CHLORIDE XL 5 MG TABCR PO SCH (09:00)
[2021-10-13] MEDS: METOPROLOL SUCC 25MG EXT REL TAB PO SCH (09:04)
[2021-10-13] MEDS: LINEZOLID 600 MG/300 ML BAG IV SCH ×2 (09:44→23:49)
[2021-10-13] MEDS ORDERED: SODIUM CHLORIDE 0.9% 250 ML IV PRN (10:40)
--- NOTE | 2021-10-13 11:00 | Urology Consultation ---
Date of Consultation October 13, 2021 Assessment & Plan (1) Fever: (2) Acute UTI (urinary tract infection): (3) AURORA (acute kidney injury): 66yo F with chronic b/l ureteral stents admitted with fever, generalized weakness, AURORA, and presumed UTI. - Urology consulted for mild b/l hydronephrosis, possible UTI with fever. - Plan of care reviewed with Dr. Marroquin, on-call urologist. - Febrile this morning @37.8C. - Labs reviewed - Wbc 1.64, Creatinine 1.10. - Urine and blood cultures pending - On aztreonam, linezolid and caspofungin. - Abdominal US reviewed - Bilateral ureteral stents in place; Bilateral hydronephrosis demonstrated. - See attending note for further details on plan of care. Supervising Physician Co-Signing Physician Notes Case reviewed, imaging, labs, cultures, reviewed. At this stage, I do not feel there is any role for urological surgery interventions. She has well positioned stents with expected levels of hydronephrosis. These stents were exchanged 2 weeks ago, so there is no indication for stent exchange. Her current hospitalization is due to infectious issues - which are admittedly challenging. I defer to ID for management of her infections. If ID feels it is necessary to irrigate her collecting system (ureters) with antibiotic or antifungal medications, she should be transferred for percutaneous nephrostomy tube placement. If that is not deemed necessary, then continue treatment of her infections via IV/PO means and continue b/l stenting. Please call us if any further assistance is needed during this hospitalization. History of Present Illness Reason for Consultation: mild hydronephrosis, possible UTI with fever Requesting Physician: Dr. 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 Urology consulted for mild hydronephrosis, possible UTI with fever. Patient is known to [facility]. Patient has a known history of bilateral hydr onephrosis managed with chronic bilateral indwelling stents. Last stent exchange was 09/26/[address] Cervantes. Chart review: Febrile this morning @ 37.8C Wbc 1.64 Hgb 5.8 Cr 1.10 Urine and blood cultures pending Abdominal US- 1. Heterogeneous echogenicity of the liver characteristic of hepatocellular disease. 2. Mild splenomegaly. 3. Compared to the previous CT, there are bilateral ureteral stents in place. However, there is bilateral hydronephrosis demonstrated. 4. Cholelithiasis with mild pericholecystic edema and distention of the gallbladder. Early cholecystitis cannot be completely excluded. Allergies Allergy/AdvReac Type Severity Reaction Status Date / Time bee venom protein (honey bee) Allergy Severe Difficulty Verified 10/12/21 18:37 Breathing adhesive Allergy Intermediate Red torn Verified 10/12/21 18:37 skin Iodinated Contrast Media Allergy Intermediate Hives Verified 10/12/21 18:37 iodine Allergy Intermediate Hives Verified 10/12/21 18:37 levofloxacin Allergy Intermediate numbness/we Verified 10/12/21 18:37 akness pregabalin Allergy Intermediate fever?/?cher Verified 10/12/21 18:37 h strawberry Allergy Intermediate Hives Verified 10/12/21 18:37 Sulfa (Sulfonamide Allergy Intermediate Rash, hives Verified 10/12/21 18:37 Antibiotics) vancomycin Allergy Intermediate Bullous Verified 10/12/21 18:37 skin rash allopurinol Allergy Mild Rash Verified 10/12/21 18:37 ceftriaxone [From Rocephin] Allergy Mild Rash Verified 10/12/21 18:37 piperacillin [From Zosyn] Allergy Mild Rash Verified 10/12/21 18:37 tazobactam [From Zosyn] Allergy Mild Rash Verified 10/12/21 18:37 venlafaxine Allergy Unknown Unknown Verified 10/12/21 18:37 gluten AdvReac Severe Celiac Dz Verified 10/12/21 18:37 = GI symptoms propoxyphene AdvReac Intermediate [employer] side Verified 10/12/21 18:37 effects Home Medications Medication Instructions Recorded Confirmed Type cetirizine 10 mg tablet (Zyrtec) 10 mg PO QAM 07/16/18 10/12/21 History folic acid 1 mg tablet 1 mg PO QAM 07/16/18 10/12/21 History magnesium oxide 400 mg PO QAM 07/16/18 10/12/21 History multivitamin 1 tab PO QAM 07/16/18 10/12/21 History triamcinolone acetonide 0.025 % 1 applic TOPICAL BID PRN 07/16/18 10/12/21 History topical cream vitamin B complex (B-Complex) 1 tab PO QAM 07/16/18 10/12/21 History calcium carbonate 600 mg-vitamin 1 tab PO QPM 11/26/18 10/12/21 History D3 20 mcg (800 unit) tablet (Caltrate with Vitamin D3) cyanocobalamin (vitamin B-12) 1,000 mcg IM MONTHLY 02/10/19 10/12/21 History 1,000 mcg/mL injection solution ferrous sulfate 325 mg (65 mg 325 mg PO QAM 02/10/19 10/12/21 History iron) tablet (iron) vitamin E 400 unit capsule 400 unit PO QAM 08/28/19 10/12/21 History Medical Marijuana 1 ml SUBLINGUAL UD PRN 06/27/20 10/12/21 History denosumab 60 mg/mL subcutaneous 60 mg SUBCUT .q 6 months ml 12/17/20 10/12/21 History syringe (Prolia) acetaminophen 500 mg capsule 500 mg PO QID PRN 01/24/21 10/12/21 History L.acidophilus-B.lactis-B.longum 15 1 cap PO QAM 02/03/21 10/12/21 History billion cell capsule ergocalciferol (vitamin D2) 1,250 50,000 unit PO WEEKLY #12 cap 02/28/21 10/12/21 Rx mcg (50,000 unit) capsule albuterol sulfate 90 mcg/actuation 2 puff INHALATION QID PRN #8.5 gm 04/22/21 10/12/21 Rx aerosol inhaler (ProAir HFA) metoprolol succinate 50 mg 25 mg PO QAM #45 tab 05/23/21 10/12/21 Rx tablet,extended release 24 hr Auto Titrating CPAP #1 ea 06/01/21 10/07/21 Rx CPAP Supplies #1 ea 06/01/21 10/07/21 Rx acyclovir 400 mg tablet 400 mg PO BID #60 tab 06/21/21 10/12/21 Rx methocarbamol 750 mg tablet 750 mg PO BID PRN #60 tab 06/21/21 10/12/21 Rx rizatriptan 10 mg tablet 10 mg PO DAILY PRN #9 tab 06/21/21 10/12/21 Rx topiramate 100 mg tablet (Topamax) 100 mg PO .COMPLEX 30 Days #90 tab 06/21/21 10/12/21 Rx oxybutynin chloride 10 mg 10 mg PO QAM #90 tab 07/14/21 10/12/21 Rx tablet,extended release 24 hr mirabegron 50 mg tablet,extended 50 mg PO HS #90 tab 07/25/21 10/12/21 Rx release 24 hr (Myrbetriq) coQ10 (ubiquinol) 200 mg capsule 200 mg PO QAM 08/10/21 10/12/21 History doxycycline hyclate 100 mg capsule 100 mg PO QDD 08/10/21 10/12/21 History gabapentin 400 mg capsule 400 mg PO QAM 30 Days #30 cap 08/11/21 10/12/21 Rx (Neurontin) potassium chloride 20 mEq 20 meq PO QAM #30 tab 08/11/21 10/12/21 Rx tablet,extended release oxycodone 5 mg tablet 5 mg PO Q4H PRN #20 tab 08/18/21 10/12/21 Rx budesonide-formoterol HFA 80 2 puff INHALATION BID #3 inhaler 08/22/21 10/12/21 Rx mcg-4.5 mcg/actuation aerosol inhaler (Symbicort) clonazepam 1 mg tablet 0.5 mg PO HS #30 tab 08/22/21 10/12/21 Rx quetiapine 50 mg tablet (Seroquel) 50 mg PO HS #30 tab 08/22/21 10/12/21 Rx vlsakbyyde-nuabfpdbcbppi-sotjpxou 1 tab PO DAILY PRN 30 Days #12 tab 09/27/21 10/12/21 Rx 50 mg-325 mg-40 mg tablet (Esgic) phenazopyridine 200 mg tablet 200 mg PO BID PRN #7 tab 10/03/21 10/12/21 Rx (Pyridium) sertraline 50 mg tablet (Zoloft) 50 mg PO HS #30 tab 10/03/21 10/12/21 Rx cephalexin 500 mg capsule 500 mg PO QDD 10/12/21 10/12/21 History Patient History Medical History Asthma Celiac disease Cellulitis Recurrent B/L LE - on prophylactic abx (Follows with Dr. Nielson). on chronic C ephalexin and Doxy Chronic back pain Chronic kidney disease Stage III > follows Dr. Fleming Chronic obstructive pulmonary disease Emphysema Cirrhosis of liver Hx of Hep C with cirrhosis Depression History of blood transfusion History of recurrent UTI (urinary tract infection) Hx MRSA infection several yrs ago Hx of cancer of lung s/p radiation (2012), recurrence (2019 in [facility]) s/p radiation- follows with heme/onc Hx of Clostridium difficile infection on Vanco 2x/week for prophylaxis Hx of deep venous thrombosis LLE (1976) Hx of hepatitis C 2013 > "resolved" Hx of non-Hodgkin's lymphoma s/p treatment in 2013 Hydronephrosis b/l chronic hydronephrosis requiring routine stent exchanges Hyperlipidemia Insomnia Migraine Mood disorder Myelodysplasia (myelodysplastic syndrome) Diagnosed 07/09/21 by bone marrow biopsy. Being treated with Azacitidine and Procrit injections. Obstructive sleep apnea 1L O2 HS Osteoporosis Poor historian R/t hx stroke Prediabetes diet control Prothrombin [id number] mutation "Factor 2 mutation" on Lovenox (lifelong), follows with [facility] Psoriasis Radiation pneumonitis Stroke 1996, residual decreased right sided sensation, memory impairment, follows with Dr. Pagan Thrombocytopenia Chronic (platelet baseline in the 40-70s over the past few months) Venous stasis dermatitis Surgical History H/O bursectomy Right knee History of bone marrow biopsy History of bronchoscopy History of carpal tunnel release Left History of cystoscopy Multiple Bilateral Retrograde Pyelogram (05/27/21): MAC at [facility] History of esophagogastroduodenoscopy (EGD) History of liver biopsy History of tooth extraction History of ureter stent MULTIPLE Hx of bladder repair surgery FOR PROLAPSE Hx of colonoscopy Hx of tonsillectomy Hx of tubal ligation Family History Unknown Heart disease Hypertension Mother Psoriasis Diabetes Social History Smoking Status: Unknown if ever smoked Tobacco Type: Cigarettes Cigarettes Per Day: Quit 02/2011; Second Hand Exposure: No; Hx Alcohol Use: No Hx Substance Use: No Preferred Language: Jordanian Communication Ability: Effective Visual Impairment: No Limitations Hearing Ability: Normal Rn Plasma Center Required: No Beliefs That Will Affect Care: None marital status: / Current Living Situation: Family Current Living Situation Comment: Son and son's girlfriend current occupational status: retired How many Children do You have: 2 Feels Safe at Home: Yes Safety Concerns: Feels Safe At This Time Assistive Devices: Glasses Review of Systems Review of Systems: All systems reviewed & are unremarkable except as noted in HPI & below Physical Exam Constitutional: + thin; no acute distress Neck: normal visual inspection Respiratory: no respiratory distress and no labored breathing Gastrointestinal (Abdomen): Inspection/Auscultation: abdomen normal to inspection Percussion/Palpation: + abdomen tender (Mild rght-sided abdominal/flank tenderness with palpation) and abdomen soft; no guarding Musculoskeletal: Head/Neck/Chest: normocephalic Skin: No rashes or lesions visualized to exposed skin areas Neurologic: moves all extremities and awake Psychiatric: Orientation: alert and oriented x 3 Results & Data ([facility]) Vital Signs (Past 12 Hours) Vital Signs Temp Pulse Pulse Resp BP Pulse Ox 10/13/21 10:02 82 18 98/47 L 97 10/13/21 07:54 97 H 18 115/54 L 98 10/13/21 03:48 95 H 15 98/49 L 96 10/13/21 03:33 37.8 C H 10/13/21 02:50 97 H 13 90 10/12/21 22:28 37 C 88 18 100/48 L 95 10/12/21 22:27 88 16 100/48 L 93 PG Care Time/CCT Total # of Minutes Spent Total Time Spent with Patient: Total time spent is greater than 50% in coordination of care (as documented) at patient's floor/unit and/or counseling patient: Coding Level of Care Code 02337 Initial Inpt Care Lvl 2 Diagnoses Fever R50.9 Acute UTI (urinary tract infection) N39.0 AURORA (acute kidney injury) N17.9
--- NOTE | 2021-10-13 17:56 | Hospitalist Progress Note ---
Date of Service October 13, 2021 Assessment & Plan (1) Fever: Plan: Empiric treatment with aztreonam, linezolid and caspofungin pending urine and blood cultures. - Source UTI vs. pneumonia vs. acute shawn -> Patient reports mostly UTI-type symptoms, so focusing on that. No significant abdominal pain, but has had residual dysuria. - Will get MRSA swab. If negative, could consider stopping linezolid. (2) AURORA (acute kidney injury): Plan: Suspect pre-renal in relation to probable UTI. Renal U/S does show hydronephrosis however. - NSS 1.5L bolus total given in the ER - Continue LR @ 125ml/hr - Urology consult (3) Generalized weakness: Plan: PT/OT evals, Rx as above (4) RUQ pain: Plan: U/S liver shows questionable, early cholecystitis; however, LFTs are all within normal limits, and the patient's RUQ pain is stable for some time. - Monitor LFTs & clinical exam; presently low suspicion of acute cholecystitis with other, more probably source of infection. (5) Pancytopenia due to antineoplastic chemotherapy: Plan: Secondary to chemotherapy and MDS. Hgb is 5.8 today, though vital stable. - Complex antibodies. 2 units of PRBCs will be delivered today ~8pm and transfused at that time. - Discussed with Dr. Bloom - Start Neuopogen 300 mcg SQ daily until ANC > 1000. (6) Myelodysplasia (myelodysplastic syndrome): Plan: Discussed with hematology (7) SACHA (obstructive sleep apnea): Plan: CPAP HS (8) Hx of Clostridium difficile infection: Plan: Vancomycin 125mg PO daily while on empiric antibiotics (9) Celiac disease: Plan: Gluten free diet (10) Cirrhosis of liver: Plan: Noted history of treated hepatitis C Plan: VTE Prophylaxis - chemical deferred in setting of thrombocytopenia Diet - gluten free Disposition - admit to PCU Admission and Anticipated Discharge Date Admission Date: October 12, 2021 Subjective Very tired today, but overall stable. No fevers/chills today. Reports no chest pain, shortness of breath, abdominal pain, nausea, or vomiting. Physical Exam Constitutional: WD/WN, vitals as above Eyes: EOM intact bilaterally; no conjunctival abnormality ENMT: external ear and nose normal, oropharynx normal Neck: trachea midline, no thyromegaly normal visual inspection Respiratory: normal respiratory effort, lungs clear to auscultation no respiratory distress Cardiovascular: RRR, no murmur, no edema Gastrointestinal (Abdomen): Inspection/Auscultation: abdomen normal to inspection; abdomen not distended Musculoskeletal: no cyanosis or clubbing, extremities motor strength 5/5 Skin: no rashes, warm and dry Neurologic: moves all extremities and awake Psychiatric: Orientation: alert, oriented to person and cooperative Results & Data Results & Data ([facility]) Vital Signs (Past 12 Hours) Vital Signs Temp Pulse Resp BP Pulse Ox 10/13/21 15:32 36.6 C 82 17 130/56 L 99 10/13/21 14:32 36.8 C 81 16 114/55 L 96 10/13/21 11:10 88 18 102/50 L 10/13/21 10:02 82 18 98/47 L 97 10/13/21 07:54 97 H 18 115/54 L 98 PG Care Time/CCT Total # of Minutes Spent Total Time Spent with Patient: Total time spent is greater than 50% in coordination of care (as documented) at patient's floor/unit and/or counseling patient: Coding Level of Care Code 47277 Subseq Hosp Care Lvl 3 Diagnoses Fever R50.9 Generalized weakness R53.1 AURORA (acute kidney injury) N17.9 RUQ pain R10.11 Pancytopenia due to antineoplastic chemotherapy D61.810; T45.1X5A Myelodysplasia (myelodysplastic syndrome) D46.9 SACHA (obstructive sleep apnea) G47.33 Hx of Clostridium difficile infection Z86.19 Celiac disease K90.0 Cirrhosis of liver K74.60
[2021-10-13] MEDS: CASPOFUNGIN 50 MG in SODIUM CHLORIDE 0.9% 250 ML IV SCH (20:53)
[2021-10-13] MEDS ORDERED: TOPIRAMATE 100 MG TAB PO SCH (21:00)
[2021-10-13] MEDS ORDERED: diphenhydrAMINE 50 MG/ML VIAL IV STA (22:03)
[2021-10-13] MEDS ORDERED: diphenhydrAMINE 50 MG/ML VIAL ONE (22:08)
[2021-10-14] MEDS: oxyCODONE HCL IR 5 MG TAB (IMMEDIATE RELEASE) PO PRN ×5 (01:58→23:03)
[2021-10-14] MEDS: AZTREONAM 2,000 MG in DEXTROSE 5% 100 ML IV SCH ×3 (05:20→21:38)
[2021-10-14] MEDS: LACTATED RINGER'S 1,000 ML IV SCH ×3 (05:48→20:21)
[2021-10-14 07:02] LABS: Hematocrit (blood only) 27.1 % (37-47); Hemoglobin 8.6 g/dL (12.0-16.0); Mean Corpuscular Hgb Conc 31.7 g/dL (32-36); Mean Corpuscular Volume 85.2 fL (80-100); Nucleated RBC # (auto) 0.09 K/uL (0-0); Nucleated RBC % (auto) 8.3 %; Platelet Count 10 K/uL (130-400); RDW Coefficient of Variation 17.3 % (11.5-14.5); RDW Standard Deviation 53.9 fL (36.4-46.3); Red Blood Count 3.18 M/uL (4.2-5.4)
[2021-10-14 07:03] LABS: Albumin Level 2.3 gm/dl (3.4-5.0); BUN Creatinine Ratio 18.8 (10-20); Calcium 7.8 mg/dl (8.5-10.1); Creatinine Clr Calc Pharmacy 51.6 ml/min; Est GFR (African American) 87.7 ml/min; Est GFR (Non-African American) 75.7 ml/min; Magnesium 2.3 mg/dl (1.8-2.4); Potassium 4.2 mmol/L (3.5-5.1)
[2021-10-14 07:08] LABS: Albumin Globulin Ratio 0.8 (0.9-2); Bilirubin,Total 0.6 mg/dl (0.2-1); Giant Platelets 1+; Globulin 2.9 gm/dl (2.5-4.0); Platelet Estimate SIGNIFIC DECREASED (Normal); Poikilocytosis Present; Total Protein 5.2 gm/dl (6.4-8.2)
[2021-10-14 07:10] LABS: ALC (manual) 0.56 K/uL (1.2-3.4); ANC (manual) 0.33 K/uL (1.4-6.5); Basophils # (manual) 0.04 K/uL (0-0.2); Basophils % (manual) 3.6 %; Blast # (manual) 0.06 K/uL (0-0); Blast Cells % (manual) 5.4 %; Eosinophils # (manual) 0.01 K/uL (0-0.5); Eosinophils % (manual) 0.9 %; Lymphocytes # (manual) 0.56 K/uL (1.2-3.4); Lymphocytes % (manual) 50.8 %; Monocytes # (manual) 0.08 K/uL (0.11-0.59); Monocytes % (manual) 7.1 %; Myelocytes # (manual) 0.02 K/uL (0-0); Myelocytes % (manual) 1.8 %; Neutrophils # (manual) 0.33 K/uL (1.4-6.5); Neutrophils % (manual) 30.4 %
[2021-10-14] MEDS ORDERED: FILGRASTIM 480 MCG/1.6 ML VIAL SC SCH (07:30)
[2021-10-14] MEDS: ACYCLOVIR 400 MG TAB PO SCH ×2 (07:55→22:55)
[2021-10-14] MEDS: FOLIC ACID 1 MG TAB PO SCH (07:55)
[2021-10-14] MEDS: MAGNESIUM OXIDE 400 MG TAB PO SCH (07:56)
[2021-10-14] MEDS: GABAPENTIN 400 MG CAP PO SCH (07:56)
[2021-10-14] MEDS: TOCOPHERYL, DL-ALPHA 400 UNITS 180 MG CAP PO SCH (07:56)
[2021-10-14] MEDS: VITAMIN B COMPLEX TAB PO SCH (07:56)
[2021-10-14] MEDS: METOPROLOL SUCC 25MG EXT REL TAB PO SCH (07:56)
[2021-10-14] MEDS: CETIRIZINE HCL 10 MG TABLET PO SCH (07:57)
[2021-10-14] MEDS: OXYBUTYNIN CHLORIDE XL 5 MG TABCR PO SCH (07:57)
[2021-10-14] MEDS: FERROUS SULFATE 325 MG TAB PO SCH (07:57)
[2021-10-14] MEDS: METHOCARBAMOL 750 MG TABLET PO PRN (07:57)
[2021-10-14] MEDS: MULTIVITAMIN TAB PO SCH (07:57)
[2021-10-14] MEDS: POTASSIUM CHLORIDE CRTAB 20 MEQ TABCR PO SCH (07:58)
[2021-10-14] MEDS: TOPIRAMATE 100 MG TAB PO SCH ×2 (07:58→22:56)
[2021-10-14] MEDS: ADVANCED PROBIOTIC 1250 MG CAPSULE PO SCH (07:59)
[2021-10-14] MEDS: RASPBERRY SYRUP 5 ML UDP PO SCH (07:59)
[2021-10-14] MEDS: FLUTICASONE/VILANTEROL 100/25MCG 14 PUFFS/INHALER INH SCH (07:59)
[2021-10-14] MEDS: VANCOMYCIN HCL 125 MG/2.5ML SOLN PO SCH (08:04)
--- NOTE | 2021-10-14 08:55 | Consultation Report ---
HEMATOLOGY CONSULTATION DATE OF SERVICE: 10/14/2021. REASON FOR CONSULTATION: Neutropenic fever in a 66-year-old female patient with secondary myelodysplasia. HISTORY OF PRESENT ILLNESS: Aleja Haq is a pleasant, somewhat unfortunate 66-year-old female patient well known to [facility], currently under my care with history of secondary myelodysplasia. Aleja Haq unfortunately has struggled over the past couple of months, has been admitted multiple times to [facility] for fevers and refractory pancytopenia. She was recently diagnosed with secondary myelodysplasia by bone marrow biopsy and aspiration. She was administered one cycle of 5-azacitidine beginning of July and since that time has encountered significant clinical difficulties. The patient has about 3 refractory pancytopenias, has been transfusion dependent. Her platelets in particular have been refractory. I have been reluctant to initiate granulocyte colony stimulating growth factor because of the prospect of proliferating immature forms (blasts). That said, with her ongoing fevers and fungus in previous urine culture, I feel compelled to be proactive at this point despite the risk of leukemic proliferation. Aleja Haq was seen in the office shortly after her last admission where she was confirmed with Rachelle glabrata in her urine. She had received a course of broad-spectrum antibiotics including caspofungin during that admission. She once again presents with fever in excess of 103 degrees Fahrenheit. Overall, her performance status has slowly dwindled over the past several weeks. She has been fully worked up including trujillo cultures and placed on empiric antimicrobials including reinstitution of caspofungin. We will start cranial granulocyte colony stimulating growth factor as well. Aleja Haq has battled with chronic pain issues and particularly her lower extremity on the left has continued to be problematic. PAST MEDICAL HISTORY: Significant for multitude of conditions, venous stasis dermatitis, previous CVA, psoriasis, radiation pneumonitis, prediabetes, osteoporosis, obstructive sleep apnea, myelodysplasia, history of non-Hodgkin's lymphoma, and lung cancer. Clostridium difficile infection, history of DVT, history of hepatitis C, depression, cirrhosis of the liver, COPD, chronic kidney disease, cellulitis, celiac disease, and asthma. MEDICATIONS: List is significant for cetirizine 10 mg p.o. daily, folic acid 1 mg p.o. daily, magnesium oxide 400 mg p.o. daily, multivitamin 1 p.o. daily, vitamin B complex 1 tablet p.o. daily, calcium carbonate 1 tablet p.o. daily, vitamin B12 1000 mcg IM monthly, ferrous sulfate 325 mg p.o. daily, vitamin E 400 units p.o. daily, medical marijuana 1 mL sublingual UD p.r.n., Prolia 60 mg subcu q. 6 months, vitamin D2 50,000 units p.o. weekly, albuterol 2 puffs inhaled q.i.d. p.r.n., metoprolol 25 mg p.o. daily, acyclovir 400 mg p.o. b.i.d., methocarbamol 750 mg p.o. b.i.d. p.r.n., rizatriptan 10 mg p.o. daily p.r.n., Topamax 100 mg p.o. daily, oxybutynin chloride 10 mg p.o. daily, mirabegron 50 mg p.o. at bedtime, coenzyme Q10 200 mg p.o. daily, doxycycline 100 mg p.o. q. DD, gabapentin 400 mg p.o. daily, potassium chloride 20 mEq p.o. daily, oxycodone 5 mg q. 4 hours p.r.n., clonazepam 0.5 mg p.o. at bedtime, budesonide 2 puffs inhaled b.i.d., ____ 50 mg p.o. at bedtime, dbddpttthi-robneksofgcxc-pwnzpjad 1 tablet p.o. p.r.n. for headaches, Pyridium 200 mg p.o. b.i.d. p.r.n., sertraline 50 mg p.o. at bedtime, cephalexin 500 mg p.o. q. DD ALLERGIES: Also numerous, BEE VENOM, ADHESIVE, IV CONTRAST, IODINE, LEVOFLOXACIN, PREGABALIN, STRAWBERRIES, SULFA, VANCOMYCIN, ALLOPURINOL, CEFTRIAXONE, PIPERACILLIN/TAZOBACTAM, VENLAFAXINE, GLUTEN, and PROPOXYPHENE. SOCIAL HISTORY: She lives with son and son's girlfriend. She is a . She is a reformed smoker. Negative for alcohol or illicit substances. FAMILY HISTORY: Mother suffered from diabetes and psoriasis. REVIEW OF SYSTEMS: CONSTITUTIONAL: As per HPI, most notably for fevers and chills. Positive for dysuria. Positive for anorexia. General clinical decline. SKIN: Previous history of cellulitis, scattered ecchymoses. No history of dermatoses otherwise. HEENT: Positive for intermittent headaches. No lightheadedness or dizziness. No acute visual deficits. She wears corrective lenses, however. No hearing deficits. No sinus symptoms. Positive for sore throat. LYMPHATICS: History of lymphoma. No current palpable lymphadenopathy. CARDIAC: Negative for angina or palpitations. PULMONARY: History of COPD. She is not acutely short of breath, dyspneic, or orthopneic. She reports no cough or hemoptysis. GASTROINTESTINAL: Positive for abdominal pain. No current nausea or vomiting. No diarrhea or constipation. GENITOURINARY: Positive for dysuria. Previous positive urine culture, Rachelle glabrata. MUSCULOSKELETAL: Diffuse musculoskeletal pain. No arthralgias or myalgias otherwise. NEUROLOGIC: Previous history of stroke, history of migraine headaches. No history of seizure disorders. HEMATOLOGIC: Positive for refractory pancytopenia. PHYSICAL EXAMINATION: GENERAL: A very pleasant 66-year-old female, awake, alert and appropriate, in no acute distress. VITAL SIGNS: Temperature 36.5, pulse 82, respiratory rate 18, blood pressure 114/61. EXTREMITIES: Warm, dry, noncyanotic. Scattered ecchymoses. Hyperpigmentation of the lower extremities due to stasis dermatitis. HEENT: Atraumatic, normocephalic. Eyes: PERRLA, EOMI. Nares are patent without rhinorrhea or discharge. Throat is clear. No overt evidence of thrush. No evidence of mucositis. NECK: Supple. HEART: Regular rate and rhythm. No clicks, rubs, murmurs or gallops. LUNGS: Clear to auscultation bilaterally. ABDOMEN: Soft, nontender, nondistended, without palpable hepatosplenomegaly. EXTREMITIES: Palpable discomfort in her lower extremities. Otherwise, no clubbing, cyanosis, or edema. NEUROLOGIC: Grossly intact. LABORATORY DATA: WBC count 1100, hemoglobin 8.6, platelet count 10,000. She has 0.06 blasts and metamyelocytes noted on white cell differential. Sodium 140, potassium 4.2, chloride 115, carbon dioxide 22, creatinine 0.81, BUN 15, albumin 2.3. RADIOGRAPHIC DATA: None. MICROBIOLOGY: Urine cultures positive for Gram-negative bacilli. Blood cultures negative thus far. IMPRESSION: 1. Urinary tract infection, Gram-negative bacilli, suspect Escherichia coli. 2. Neutropenic fever. 3. Pancytopenia attributable to secondary myelodysplastic syndrome. 4. Acute renal injury. 5. Right upper quadrant abdominal pain. 6. Hypoalbuminemia. 7. History of Clostridium difficile infection. PLAN: In summary, Aleja Duron is a very pleasant and equally complex 66-year-old female patient with prior history of lung cancer and non-Hodgkin's lymphoma, recently diagnosed with secondary myelodysplasia, readmitted to [facility] on 10/13/2021 with fever in excess of 103 degrees Fahrenheit. This patient has had a longstanding history of recurrent urinary tract issues. Last admission, urine culture grew Rachelle glabrata and she was effectively treated with caspofungin. Now it appears she's growing gram- negative bacilli in her urine. Agree with urology consult in this regard. Aleja Haq has failed to thrive ever since initiating 5-azacitidine in early July. Her cell counts have been refractory and suspect her marrow is infiltrated with leukemic blasts. Her overall performance status and frequent infections prohibit aggressively pursuing salvage treatment and/or reinitiation of 5-azacitidine. the patient's prognosis is very poor. That said, would aggressively treat her medical problems and direct antimicrobial therapy to cultures. Continue transfusional support. Maintain platelet count above 15,000 if possible and hemoglobin above 7.5 g/dL. Unfortunately, patients with myelodysplasia generally succumb to opportunistic infection or bleeding. Aleja Haq is at risk for both of these devastating clinical issues. I have nothing further to add at this point, but would be happy to engage if there are any difficulties. Thank you very much for allowing me to participate in her care. Job ID: [id number] [facility]
[2021-10-14] MEDS: LINEZOLID 600 MG/300 ML BAG IV SCH ×2 (10:34→22:56)
[2021-10-14] MEDS ORDERED: FILGRASTIM 300 MCG/ML VIAL SQ SCH (12:00)
--- NOTE | 2021-10-14 16:58 | Hospitalist Progress Note ---
Date of Service October 14, 2021 Assessment & Plan (1) Fever: Plan: Empiric treatment with aztreonam, linezolid and caspofungin pending repeat urine cuture as first was polymicrobial and blood cultures. - Source UTI vs. pneumonia vs. acute shawn -> Patient reports mostly UTI-type symptoms, so focusing on that. No significant abdominal pain, but has had residual dysuria. - Will get MRSA swab. If negative, could consider stopping linezolid. (2) AURORA (acute kidney injury): Plan: Suspect pre-renal in relation to probable UTI. Renal U/S does show hydronephrosis however. - NSS 1.5L bolus total given in the ER - Continue LR @ 80ml/hr - Urology consult do not feel there is any role for urological surgery interventions. She has well positioned stents with expected levels of hydronephrosis. These stents were exchanged 2 weeks ago, so there is no indication for stent exchange. Her current hospitalization is due to infectious issues - which are admittedly challenging. I defer to ID for management of her infections. If ID feels it is necessary to irrigate her collecting system (ureters) with antibiotic or antifungal medications, she should be transferred for percutaneous nephrostomy tube placement. If that is not deemed necessary, then continue treatment of her infections via IV/PO means and continue b/l stenting. pending ID consult at this time continuing caspofungin and antibiotics (3) Generalized weakness: Plan: PT/OT evals, Rx as above (4) RUQ pain: Plan: U/S liver shows questionable, early cholecystitis; however, LFTs are all within normal limits, and the patient's RUQ pain is stable for some time. - Monitor LFTs & clinical exam; presently low suspicion of acute cholecystitis with other, more probably source of infection. (5) Pancytopenia due to antineoplastic chemotherapy: Plan: Secondary to chemotherapy and MDS. Hgb is 5.8 today, though vital stable. - Complex antibodies. 2 units of PRBCs follow platelet counts - Discussed with Dr. Bloom - continues on Neupogen 300 mcg SQ daily until ANC > 1000. (6) Myelodysplasia (myelodysplastic syndrome): Plan: Discussed with hematology (7) SACHA (obstructive sleep apnea): Plan: CPAP HS (8) Hx of Clostridium difficile infection: Plan: Vancomycin 125mg PO daily while on empiric antibiotics (9) Celiac disease: Plan: Gluten free diet (10) Cirrhosis of liver: Plan: Noted history of treated hepatitis C Plan: VTE Prophylaxis - chemical deferred in setting of thrombocytopenia Diet - gluten free Disposition - admit to PCU Admission and Anticipated Discharge Date Admission Date: October 12, 2021 Subjective Patient feels improved today she is ambulating about the room to in for the bathroom she still suprapubic abdominal pain consistent with urinary tract infection Review of Systems Review of Systems: Mild to moderate distress and fatigue no headache, no visual changes no speech or swallowing issues no chest pain, pressure or palpitations no shortness of breath, cough or wheezes suprapubic abdominal pain, nausea or vomiting, diarrhea or constipation no dysuria, hematuria or frequency no focal joint pain or swelling no back pain, CVA tenderness or radicular pain significant bruising, bleeding or rashes no focal signs of weakness or numbness but globally weak no complaints of anxiety or depression.. Physical Exam Physical Exam: The patient appeared well nourished and normally developed. Vital signs as documented. Head exam is normocephalic atraumatic Neck is without JVD, thyromegaly, or carotid bruits. Lungs are clear to auscultation, no focal loss of breath sounds Cardiac exam, Rhythm is regular.. No murmurs, rubs or gallops. Abdominal exam reveals normal bowel sounds, soft, suprapubic tenderness Extremities are nonedematous and both pedal pulses are present Neurologic exam is alert and oriented, no focal loss of strength or sensation Skin is with bruises to lower extremities Psychologically is without concerns for anxiety or depression.. Results & Data Results & Data ([facility]) Vital Signs (Past 12 Hours) Vital Signs Temp Pulse Pulse Resp BP BP Pulse Ox 10/14/21 16:10 97.5 F L 74 14 124/72 98 10/14/21 16:00 70 10/14/21 11:06 98.1 F 79 16 116/68 97 10/14/21 09:15 67 10/14/21 07:00 97.7 F 18 114/61 97 10/14/21 05:42 98.4 F 82 21 113/72 93 PG Care Time/CCT Total # of Minutes Spent Total Time Spent with Patient: Total time spent is greater than 50% in coordination of care (as documented) at patient's floor/unit and/or counseling patient: Coding Level of Care Code 70877 Subseq Hosp Care Lvl 3 Diagnoses Fever R50.9 AURORA (acute kidney injury) N17.9 Generalized weakness R53.1 RUQ pain R10.11 Pancytopenia due to antineoplastic chemotherapy D61.810; T45.1X5A Myelodysplasia (myelodysplastic syndrome) D46.9 SACHA (obstructive sleep apnea) G47.33 Hx of Clostridium difficile infection Z86.19 Celiac disease K90.0 Cirrhosis of liver K74.60
[2021-10-14] MEDS ORDERED: COUGH DROP (SUGAR FREE) LOZ 24 LOZ/1 BOX BUCCAL PRN (17:04)
[2021-10-14] MEDS: CASPOFUNGIN 50 MG in SODIUM CHLORIDE 0.9% 250 ML IV SCH (19:50)
[2021-10-14] MEDS: MIRABEGRON ER 25 MG TAB PO SCH (22:55)
[2021-10-14] MEDS: clonazePAM 0.5 MG TAB PO SCH (22:55)
[2021-10-14] MEDS: QUEtiapine FUMARATE 25 MG TABLET PO SCH (22:55)
[2021-10-14] MEDS: CALCIUM 600MG + VIT D 400 IU TAB PO SCH (22:56)
[2021-10-15] MEDS: METHOCARBAMOL 750 MG TABLET PO PRN ×3 (01:22→23:19)
[2021-10-15] MEDS: AZTREONAM 2,000 MG in DEXTROSE 5% 100 ML IV SCH ×3 (04:17→20:45)
[2021-10-15] MEDS: oxyCODONE HCL IR 5 MG TAB (IMMEDIATE RELEASE) PO PRN ×4 (05:36→21:34)
[2021-10-15] MEDS ORDERED: ERGOCALCIFEROL 50,000 UNITS 1250 MCG CAP PO SCH (06:30)
[2021-10-15 06:46] LABS: Creatinine Clr Calc Pharmacy 52.9 ml/min; Est GFR (African American) 90.4 ml/min
--- NOTE | 2021-10-15 08:26 | Hospitalist Progress Note ---
Date of Service October 15, 2021 Assessment & Plan (1) Fever: Plan: Empiric treatment with aztreonam, linezolid and caspofungin pending repeat urine cuture as first was polymicrobial. negative to date blood cultures. - Source UTI suspected with previous julia glabrata and indwelling ureteral stents -> Patient reports mostly UTI-type symptoms, so focusing on that. No significant abdominal pain, but has had residual dysuria. (2) AURORA (acute kidney injury): Plan: resolved after hydration. - Urology consult do not feel there is any role for urological surgery interventions. She has well positioned stents with expected levels of hydronephrosis. These stents were exchanged 2 weeks ago, so there is no indication for stent exchange. Her current hospitalization is due to infectious issues - which are admittedly challenging. I defer to ID for management of her infections. If ID feels it is necessary to irrigate her collecting system (ureters) with antibiotic or antifungal medications, she should be transferred for percutaneous nephrostomy tube placement. If that is not deemed necessary, then continue treatment of her infections via IV/PO means and continue b/l stenting. pending ID consult at this time continuing caspofungin and antibiotics (3) Generalized weakness: Plan: PT/OT evals, improved after transfusion (4) RUQ pain: Plan: U/S liver shows questionable, GB changes; however, LFTs are all within normal limits, and the patient's RUQ pain is stable for some time. - low suspicion of acute cholecystitis with other, more probably source of infection. (5) Pancytopenia due to antineoplastic chemotherapy: Plan: Secondary to chemotherapy and MDS. Hgb is 5.8 today, though vital stable. - Complex antibodies. 2 units of PRBCs follow platelet counts - Discussed with Dr. Bloom - discointinued Neupogen 300 mcg as ANC > 1000 (6) Myelodysplasia (myelodysplastic syndrome): Plan: Discussed with hematology (7) SACHA (obstructive sleep apnea): Plan: CPAP HS (8) Hx of Clostridium difficile infection: Plan: Vancomycin 125mg PO daily while on empiric antibiotics (9) Celiac disease: Plan: Gluten free diet (10) Cirrhosis of liver: Plan: Noted history of treated hepatitis C Plan: VTE Prophylaxis - chemical deferred in setting of thrombocytopenia Diet - gluten free Disposition - admit to PCU Admission and Anticipated Discharge Date Admission Date: October 12, 2021 Subjective Patient continues to improve, is ambulating short distances still with some suprapubic pain Review of Systems Review of Systems: Mild to moderate distress and fatigue no headache, no visual changes no speech or swallowing issues no chest pain, pressure or palpitations no shortness of breath, cough or wheezes suprapubic abdominal pain persists, nausea or vomiting, diarrhea or constipation still without dysuria, hematuria or frequency no focal joint pain or swelling no back pain, CVA tenderness or radicular pain significant bruising, but no bleeding or rashes no focal signs of weakness or numbness but globally weak no complaints of anxiety or depression.. Physical Exam Physical Exam: The patient appeared chronically ill but improving Vital signs as documented. Head exam is normocephalic atraumatic Neck is without JVD, thyromegaly, or carotid bruits. Lungs are clear to auscultation, no focal loss of breath sounds Cardiac exam, Rhythm is regular.. No murmurs, rubs or gallops. Abdominal exam reveals normal bowel sounds, soft, suprapubic tenderness Extremities are nonedematous and both pedal pulses are present Neurologic exam is alert and oriented, no focal loss of strength or sensation Skin is with bruises to lower extremities Psychologically is without concerns for anxiety or depression.. Results & Data Results & [facility] ([facility]) Vital Signs (Past 12 Hours) Vital Signs Temp Pulse Pulse Resp BP Pulse Ox 10/15/21 07:37 72 10/15/21 06:58 97.9 F 81 18 106/68 96 10/15/21 04:43 97.3 F L 69 16 114/53 L 96 10/14/21 23:25 81 20 96 10/14/21 23:02 97.3 F L 71 20 133/72 99 10/14/21 23:00 77 PG Care Time/CCT Total # of Minutes Spent Total Time Spent with Patient: Total time spent is greater than 50% in coordination of care (as documented) at patient's floor/unit and/or counseling patient: Coding Level of Care Code 76382 Subseq Hosp Care Lvl 3 Diagnoses Fever R50.9 AURORA (acute kidney injury) N17.9 Generalized weakness R53.1 RUQ pain R10.11 Pancytopenia due to antineoplastic chemotherapy D61.810; T45.1X5A Myelodysplasia (myelodysplastic syndrome) D46.9 SACHA (obstructive sleep apnea) G47.33 Hx of Clostridium difficile infection Z86.19 Celiac disease K90.0 Cirrhosis of liver K74.60
[2021-10-15] MEDS: METOPROLOL SUCC 25MG EXT REL TAB PO SCH (08:35)
[2021-10-15] MEDS: GABAPENTIN 400 MG CAP PO SCH (08:35)
[2021-10-15] MEDS: RASPBERRY SYRUP 5 ML UDP PO SCH (08:35)
[2021-10-15] MEDS: MAGNESIUM OXIDE 400 MG TAB PO SCH (08:35)
[2021-10-15] MEDS: OXYBUTYNIN CHLORIDE XL 5 MG TABCR PO SCH (08:35)
[2021-10-15] MEDS: ACYCLOVIR 400 MG TAB PO SCH ×2 (08:35→23:19)
[2021-10-15] MEDS: CETIRIZINE HCL 10 MG TABLET PO SCH (08:35)
[2021-10-15] MEDS: ADVANCED PROBIOTIC 1250 MG CAPSULE PO SCH (08:35)
[2021-10-15] MEDS: VITAMIN B COMPLEX TAB PO SCH (08:35)
[2021-10-15] MEDS: FERROUS SULFATE 325 MG TAB PO SCH (08:35)
[2021-10-15] MEDS: TOCOPHERYL, DL-ALPHA 400 UNITS 180 MG CAP PO SCH (08:35)
[2021-10-15] MEDS: FLUTICASONE/VILANTEROL 100/25MCG 14 PUFFS/INHALER INH SCH (08:36)
[2021-10-15] MEDS: TOPIRAMATE 100 MG TAB PO SCH ×2 (08:36→23:18)
[2021-10-15] MEDS: FOLIC ACID 1 MG TAB PO SCH (08:36)
[2021-10-15] MEDS: MULTIVITAMIN TAB PO SCH (08:37)
[2021-10-15] MEDS: VANCOMYCIN HCL 125 MG/2.5ML SOLN PO SCH (08:41)
[2021-10-15] MEDS: POTASSIUM CHLORIDE CRTAB 20 MEQ TABCR PO SCH (08:42)
[2021-10-15 09:57] LABS: Hematocrit (blood only) 28.8 % (37-47); Mean Corpuscular Hemoglobin 26.8 pg (25-34); Mean Corpuscular Hgb Conc 31.3 g/dL (32-36); Mean Corpuscular Volume 85.7 fL (80-100); Nucleated RBC # (auto) 0.08 K/uL (0-0); Nucleated RBC % (auto) 3.8 %; Platelet Count 14 K/uL (130-400); RDW Coefficient of Variation 18.1 % (11.5-14.5); RDW Standard Deviation 55.7 fL (36.4-46.3); Red Blood Count 3.36 M/uL (4.2-5.4); White Blood Count 2.16 K/uL (4.8-10.8)
[2021-10-15 10:01] LABS: Basophils # (auto) 0.01 K/uL (0-0.2); Basophils % (auto) 0.5 %; Eosinophils # (auto) 0.05 K/uL (0-0.5); Eosinophils % (auto) 2.3 %; Immature Granulocytes # (auto) 0.02 K/uL (0.00-0.02); Immature Granulocytes % (auto) 0.9 %; Lymphocytes # (auto) 0.68 K/uL (1.2-3.4); Lymphocytes % (auto) 31.5 %; Monocytes # (auto) 0.29 K/uL (0.11-0.59); Monocytes % (auto) 13.4 %; Neutrophils # (auto) 1.11 K/uL (1.4-6.5); Neutrophils % (auto) 51.4 %; Platelet Estimate SIGNIFIC DECREASED (Normal); Polychromasia 1+; Schistocytes 1+; Toxic Vacuolation 1+
[2021-10-15] MEDS: LACTATED RINGER'S 1,000 ML IV SCH ×2 (10:57→20:42)
[2021-10-15] MEDS: LINEZOLID 600 MG/300 ML BAG IV SCH ×2 (10:59→23:17)
[2021-10-15] MEDS: CASPOFUNGIN 50 MG in SODIUM CHLORIDE 0.9% 250 ML IV SCH (17:14)
[2021-10-15] MEDS: SERTRALINE HCL 50 MG TABLET PO SCH (23:18)
[2021-10-15] MEDS: QUEtiapine FUMARATE 25 MG TABLET PO SCH (23:18)
[2021-10-15] MEDS: CALCIUM 600MG + VIT D 400 IU TAB PO SCH (23:18)
[2021-10-15] MEDS: MIRABEGRON ER 25 MG TAB PO SCH (23:19)
[2021-10-15] MEDS: clonazePAM 0.5 MG TAB PO SCH (23:25)
[2021-10-16] MEDS: AZTREONAM 2,000 MG in DEXTROSE 5% 100 ML IV SCH (04:36)
[2021-10-16] MEDS: oxyCODONE HCL IR 5 MG TAB (IMMEDIATE RELEASE) PO PRN ×4 (05:38→22:23)
[2021-10-16 06:40] LABS: BUN Creatinine Ratio 14.7 (10-20); Calcium 7.9 mg/dl (8.5-10.1); Creatinine Clr Calc Pharmacy 46.9 ml/min; Est GFR (African American) 78.3 ml/min; Est GFR (Non-African American) 67.5 ml/min; Potassium 4.3 mmol/L (3.5-5.1)
--- NOTE | 2021-10-16 08:10 | Hospitalist Progress Note ---
Date of Service October 16, 2021 Assessment & Plan (1) Fever: Plan: Empiric treatment with aztreonam, linezolid and caspofungin pending repeat urine cuture as first was polymicrobial, second urine culture while on antibiotics and antifungal negative also, negative to date blood cultures. neutropenia has resolved - Source UTI suspected cliniclaly with previous julia glabrata and indwelling ureteral stents -> Patient reports mostly UTI-type symptoms, so focusing on that. No significant abdominal pain, but has had residual dysuria. (2) AURORA (acute kidney injury): Plan: resolved after hydration. - Urology consult do not feel there is any role for urological surgery interventions. She has well positioned stents with expected levels of hydronephrosis. These stents were exchanged 2 weeks ago, so there is no indication for stent exchange. Her current hospitalization is due to infectious issues - which are admittedly challenging. I defer to ID for management of her infections. If ID feels it is necessary to irrigate her collecting system (ureters) with antibiotic or antifungal medications, she should be transferred for percutaneous nephrostomy tube placement. If that is not deemed necessary, then continue treatment of her infections via IV/PO means and continue b/l stenting. pending ID consult at this time continuing caspofungin and with negative urine culture x2 stop antibiotics (3) Generalized weakness: Plan: PT/OT evals, improved after transfusion (4) RUQ pain: Plan: U/S liver shows questionable, GB changes; however, LFTs are all within normal limits, and the patient's RUQ pain is stable for some time. - low suspicion of acute cholecystitis with other, more probably source of infection. (5) Pancytopenia due to antineoplastic chemotherapy: Plan: Secondary to chemotherapy and MDS. Hgb is 5.8 today, though vital stable. - Complex antibodies. 2 units of PRBCs follow platelet counts - Discussed with Dr. Bloom - discointinued Neupogen 300 mcg as ANC > 1000 (6) Myelodysplasia (myelodysplastic syndrome): Plan: Discussed with hematology (7) SACHA (obstructive sleep apnea): Plan: CPAP HS (8) Hx of Clostridium difficile infection: Plan: Vancomycin 125mg PO daily while on empiric antibiotics (9) Celiac disease: Plan: Gluten free diet (10) Cirrhosis of liver: Plan: Noted history of treated hepatitis C Plan: VTE Prophylaxis - chemical deferred in setting of thrombocytopenia Diet - gluten free Disposition - admit to PCU Admission and Anticipated Discharge Date Admission Date: October 12, 2021 Subjective Patient continues to improve, is ambulating short distances still with some suprapubic pain, still with dysuria, since culture is negative for bacteria, will stop antibiotics Review of Systems Review of Systems: Mild to moderate distress and fatigue no headache, no visual changes no speech or swallowing issues no chest pain, pressure or palpitations no shortness of breath, cough or wheezes suprapubic abdominal pain persists, nausea or vomiting, diarrhea or constipation still without dysuria, hematuria or frequency no focal joint pain or swelling no back pain, CVA tenderness or radicular pain significant bruising, but no bleeding or rashes no focal signs of weakness or numbness but globally weak no complaints of anxiety or depression.. Physical Exam Physical Exam: The patient appeared chronically ill but improving Vital signs as documented. Head exam is normocephalic atraumatic Neck is without JVD, thyromegaly, or carotid bruits. Lungs are clear to auscultation, no focal loss of breath sounds Cardiac exam, Rhythm is regular.. No murmurs, rubs or gallops. Abdominal exam reveals normal bowel sounds, soft, suprapubic tenderness Extremities are nonedematous and both pedal pulses are present Neurologic exam is alert and oriented, no focal loss of strength or sensation Skin is with bruises to lower extremities Psychologically is without concerns for anxiety or depression.. Results & Data Results & Data ([facility]) Vital Signs (Past 12 Hours) Vital Signs Temp Pulse Pulse Resp BP Pulse Ox 10/16/21 07:50 97.7 F 69 18 127/71 100 10/15/21 23:57 76 12 100 10/15/21 20:47 98.4 F 74 18 122/83 98 PG Care Time/CCT Total # of Minutes Spent Total Time Spent with Patient: Total time spent is greater than 50% in coordination of care (as documented) at patient's floor/unit and/or counseling patient: Coding Level of Care Code 79756 Subseq Hosp Care Lvl 2 Diagnoses Fever R50.9 AURORA (acute kidney injury) N17.9 Generalized weakness R53.1 RUQ pain R10.11 Pancytopenia due to antineoplastic chemotherapy D61.810; T45.1X5A Myelodysplasia (myelodysplastic syndrome) D46.9 SACHA (obstructive sleep apnea) G47.33 Hx of Clostridium difficile infection Z86.19 Celiac disease K90.0 Cirrhosis of liver K74.60
[2021-10-16] MEDS: METOPROLOL SUCC 25MG EXT REL TAB PO SCH (08:11)
[2021-10-16] MEDS: TOPIRAMATE 100 MG TAB PO SCH ×2 (08:11→22:25)
[2021-10-16] MEDS: VANCOMYCIN HCL 125 MG/2.5ML SOLN PO SCH (08:11)
[2021-10-16] MEDS: RASPBERRY SYRUP 5 ML UDP PO SCH (08:11)
[2021-10-16] MEDS: MULTIVITAMIN TAB PO SCH (08:11)
[2021-10-16] MEDS: ACYCLOVIR 400 MG TAB PO SCH ×2 (08:11→22:25)
[2021-10-16] MEDS: METHOCARBAMOL 750 MG TABLET PO PRN ×2 (08:12→22:22)
[2021-10-16] MEDS: VITAMIN B COMPLEX TAB PO SCH (08:12)
[2021-10-16] MEDS: TOCOPHERYL, DL-ALPHA 400 UNITS 180 MG CAP PO SCH (08:12)
[2021-10-16] MEDS: OXYBUTYNIN CHLORIDE XL 5 MG TABCR PO SCH (08:12)
[2021-10-16] MEDS: POTASSIUM CHLORIDE CRTAB 20 MEQ TABCR PO SCH (08:12)
[2021-10-16] MEDS: GABAPENTIN 400 MG CAP PO SCH (08:13)
[2021-10-16] MEDS: ADVANCED PROBIOTIC 1250 MG CAPSULE PO SCH (08:13)
[2021-10-16] MEDS: FLUTICASONE/VILANTEROL 100/25MCG 14 PUFFS/INHALER INH SCH (08:13)
[2021-10-16] MEDS: MAGNESIUM OXIDE 400 MG TAB PO SCH (08:13)
[2021-10-16] MEDS: CETIRIZINE HCL 10 MG TABLET PO SCH ×2 (08:13→08:22)
[2021-10-16] MEDS: FERROUS SULFATE 325 MG TAB PO SCH (08:13)
[2021-10-16] MEDS: FOLIC ACID 1 MG TAB PO SCH (08:13)
[2021-10-16 08:27] LABS: Hematocrit (blood only) 31.7 % (37-47); Mean Corpuscular Hemoglobin 26.7 pg (25-34); Mean Corpuscular Hgb Conc 31.5 g/dL (32-36); Mean Corpuscular Volume 84.5 fL (80-100); Nucleated RBC # (auto) 0.07 K/uL (0-0); Nucleated RBC % (auto) 2.8 %; Platelet Count 14 K/uL (130-400); RDW Coefficient of Variation 18.2 % (11.5-14.5); Red Blood Count 3.75 M/uL (4.2-5.4); White Blood Count 2.63 K/uL (4.8-10.8)
[2021-10-16 08:44] LABS: ALC (manual) 1.33 K/uL (1.2-3.4); ANC (manual) 1.09 K/uL (1.4-6.5); Acanthocytes 1+; Lymphocytes # (manual) 1.33 K/uL (1.2-3.4); Lymphocytes % (manual) 50.4 %; Monocytes # (manual) 0.16 K/uL (0.11-0.59); Monocytes % (manual) 6.2 %; Myelocytes # (manual) 0.05 K/uL (0-0); Myelocytes % (manual) 1.8 %; Neutrophils # (manual) 1.09 K/uL (1.4-6.5); Neutrophils % (manual) 41.6 %; Schistocytes 1+
[2021-10-16] MEDS: LINEZOLID 600 MG/300 ML BAG IV SCH (09:21)
[2021-10-16] MEDS ORDERED: Nursing to Pharmacy Communication SCH (14:15)
[2021-10-16] MEDS: CASPOFUNGIN 50 MG in SODIUM CHLORIDE 0.9% 250 ML IV SCH (17:44)
[2021-10-16] MEDS ORDERED: CETIRIZINE HCL 10 MG TABLET PO SCH (21:00)
[2021-10-16] MEDS: SERTRALINE HCL 50 MG TABLET PO SCH (22:23)
[2021-10-16] MEDS: clonazePAM 0.5 MG TAB PO SCH (22:23)
[2021-10-16] MEDS: MIRABEGRON ER 25 MG TAB PO SCH (22:24)
[2021-10-16] MEDS: QUEtiapine FUMARATE 25 MG TABLET PO SCH (22:24)
[2021-10-16] MEDS: CALCIUM 600MG + VIT D 400 IU TAB PO SCH (22:24)
[2021-10-16 23:32] VITALS: TEMP 97.9
[2021-10-17] MEDS: oxyCODONE HCL IR 5 MG TAB (IMMEDIATE RELEASE) PO PRN ×3 (04:35→14:43)
[2021-10-17 07:04] LABS: Hematocrit (blood only) 29.2 % (37-47); Hemoglobin 9.3 g/dL (12.0-16.0); Mean Corpuscular Volume 84.9 fL (80-100); Platelet Count 18 K/uL (130-400); RDW Coefficient of Variation 18.2 % (11.5-14.5); RDW Standard Deviation 55.5 fL (36.4-46.3); Red Blood Count 3.44 M/uL (4.2-5.4); White Blood Count 2.38 K/uL (4.8-10.8)
[2021-10-17 07:20] LABS: Creatinine Clr Calc Pharmacy 49.7 ml/min; Est GFR (African American) 83.9 ml/min; Est GFR (Non-African American) 72.4 ml/min
[2021-10-17 07:21] LABS: ALC (manual) 1.13 K/uL (1.2-3.4); ANC (manual) 1.09 K/uL (1.4-6.5); Blast # (manual) 0.06 K/uL (0-0); Blast Cells % (manual) 2.6 %; Lymphocytes # (manual) 1.13 K/uL (1.2-3.4); Lymphocytes % (manual) 47.4 %; Mean Corpuscular Hgb Conc 31.8 g/dL (32-36); Monocytes # (manual) 0.08 K/uL (0.11-0.59); Monocytes % (manual) 3.5 %; Myelocytes # (manual) 0.02 K/uL (0-0); Myelocytes % (manual) 0.9 %; Neutrophils # (manual) 1.09 K/uL (1.4-6.5); Neutrophils % (manual) 45.6 %; Nucleated RBC # (auto) 0.07 K/uL (0-0); Platelet Estimate SIGNIFIC DECREASED (Normal); Poikilocytosis Present; Schistocytes Occasional
[2021-10-17 07:38] VITALS: BP 120/64; PULSE 74; O2SAT 97
[2021-10-17] MEDS: ACYCLOVIR 400 MG TAB PO SCH (08:21)
[2021-10-17] MEDS: GABAPENTIN 400 MG CAP PO SCH (08:23)
[2021-10-17] MEDS: OXYBUTYNIN CHLORIDE XL 5 MG TABCR PO SCH (08:23)
[2021-10-17] MEDS: TOCOPHERYL, DL-ALPHA 400 UNITS 180 MG CAP PO SCH (08:23)
[2021-10-17] MEDS: POTASSIUM CHLORIDE CRTAB 20 MEQ TABCR PO SCH (08:24)
[2021-10-17] MEDS: MAGNESIUM OXIDE 400 MG TAB PO SCH (08:24)
[2021-10-17] MEDS: FERROUS SULFATE 325 MG TAB PO SCH (08:24)
[2021-10-17] MEDS: FOLIC ACID 1 MG TAB PO SCH (08:25)
[2021-10-17] MEDS: METOPROLOL SUCC 25MG EXT REL TAB PO SCH (08:25)
[2021-10-17] MEDS: ADVANCED PROBIOTIC 1250 MG CAPSULE PO SCH (08:25)
[2021-10-17] MEDS: MULTIVITAMIN TAB PO SCH (08:25)
[2021-10-17] MEDS: VITAMIN B COMPLEX TAB PO SCH (08:26)
[2021-10-17] MEDS: METHOCARBAMOL 750 MG TABLET PO PRN (08:27)
[2021-10-17] MEDS: TOPIRAMATE 100 MG TAB PO SCH (08:27)
[2021-10-17] MEDS: FLUTICASONE/VILANTEROL 100/25MCG 14 PUFFS/INHALER INH SCH (08:45)
[2021-10-17] MEDS: RASPBERRY SYRUP 5 ML UDP PO SCH (08:46)
[2021-10-17] MEDS: VANCOMYCIN HCL 125 MG/2.5ML SOLN PO SCH (08:46)
--- NOTE | 2021-10-17 13:50 | Discharge Summary ---
Date of Service October 17, 2021 Admission HPI Per Admitting Provider Aleja Duron is a 66 year old female with MDS who presents to the ER with fever starting yesterday. She reports having a fever yesterday of 103.3 degrees Fahrenheit. She denies any nasal congestion, sinus pain, cough, chest pain, abdominal pain, diarrhea. She reports being generally weak. She reports still having a fever today but she can't remember what it was. Dr Bloom wanted lab work and urine sample done, performed earlier today. She was advised to go to the emergency room following this. In the ER she was noted to be anemia with hemoglobin 7.3 from 7.1 earlier in the day. She has planned 2 units irradiated packed RBCs in the MTU. She denies any melena or other known bleeding. Creatine 1.63 from baseline 0.9. She was hypotensive in the ER and received NSS 1L bolus. She was started on ciprofloxacin however this was changed to aztreonam, linezolid and caspofungin based on prior cultures and allergies to cefepime, Zosyn and vancomycin. Absolute neutrophil count currently > 1. Despite hypotension lactate is within normal limits. She was referred to medicine for admission and ongoing management of suspected UTI sepsis. Principal Diagnosis Pancytopenia and neutropenia with fever Refractory pancytopenia Discharge Exam Patient appears chronically ill she is petite and near being underweight she has a systemic maculopapular rash which is not new for her. He has some chronic venous stasis changes to her lower extremities Discharge Data Allergies Allergy/AdvReac Type Severity Reaction Status Date / Time bee venom protein (honey bee) Allergy Severe Difficulty Verified 10/12/21 18:37 Breathing adhesive Allergy Intermediate Red torn Verified 10/12/21 18:37 skin Iodinated Contrast Media Allergy Intermediate Hives Verified 10/12/21 18:37 iodine Allergy Intermediate Hives Verified 10/12/21 18:37 levofloxacin Allergy Intermediate numbness/we Verified 10/12/21 18:37 akness pregabalin Allergy Intermediate fever?/?cher Verified 10/12/21 18:37 h strawberry Allergy Intermediate Hives Verified 10/12/21 18:37 Sulfa (Sulfonamide Allergy Intermediate Rash, hives Verified 10/12/21 18:37 Antibiotics) vancomycin Allergy Intermediate Bullous Verified 10/12/21 18:37 skin rash allopurinol Allergy Mild Rash Verified 10/12/21 18:37 ceftriaxone [From Rocephin] Allergy Mild Rash Verified 10/12/21 18:37 piperacillin [From Zosyn] Allergy Mild Rash Verified 10/12/21 18:37 tazobactam [From Zosyn] Allergy Mild Rash Verified 10/12/21 18:37 venlafaxine Allergy Unknown Unknown Verified 10/12/21 18:37 gluten AdvReac Severe Celiac Dz Verified 10/12/21 18:37 = GI symptoms propoxyphene AdvReac Intermediate [employer] side Verified 10/12/21 18:37 effects Consultations 10/12/21 17:53 ED Decision to Admit Stat 10/13/21 06:42 Consult Hematology Routine Consult Urology Routine 10/13/21 18:08 Consult Infectious Diseases Routine Ordered Studies 10/12/21 22:17 US abdomen complete Urgent Hospital Course (1) Fever: Empiric treatment with aztreonam, linezolid and caspofungin pending repeat urine cuture as first was polymicrobial, second urine culture while on antibiotics and antifungal negative also, negative to date blood cultures. neutropenia has resolved after Neupogen and so has her fever - Source UTI suspected clinically with previous julia glabrata and indwelling ureteral stents -> Patient reports mostly UTI-type symptoms, however these have improved as neutropenia has resolved as well as her fever has not been present. Subsequently with negative cultures negative urine culture x2 we will discontinue all antimicrobial and antifungal therapy at the time of discharge (2) AURORA (acute kidney injury): resolved after hydration. - Urology consult do not feel there is any role for urological surgery interventions. She has well positioned stents with expected levels of hydronephrosis. These stents were exchanged 2 weeks ago, so there is no indication for stent exchange. Her current hospitalization is due to infectious issues - which are admittedly challenging. I defer to ID for management of her infections. If ID feels it is necessary to irrigate her collecting system (ureters) with antibiotic or antifungal medications, she should be transferred for percutaneous nephrostomy tube placement. If that is not deemed necessary, then continue treatment of her infections via IV/PO means and continue b/l stenting. (3) Generalized weakness: PT/OT evals, improved after transfusion (4) RUQ pain: U/S liver shows questionable, GB changes; however, LFTs are all within normal limits, and the patient's RUQ pain is stable for some time. - low suspicion of acute cholecystitis with other, previous felt to be secondary to neutropenia (5) Pancytopenia due to antineoplastic chemotherapy: Secondary to chemotherapy and MDS. Hgb is 5.8 today, though vital stable. - Complex antibodies. 2 units of PRBCs follow platelet counts - Discussed with Dr. Bloom - discointinued Neupogen 300 mcg as ANC > 1000 (6) Myelodysplasia (myelodysplastic syndrome): Discussed with hematology (7) SACHA (obstructive sleep apnea): CPAP HS (8) Hx of Clostridium difficile infection: Vancomycin 125mg PO daily while on empiric antibiotics C. difficile toxin is negative will not continue vancomycin at time of discharge (9) Celiac disease: Gluten free diet (10) Cirrhosis of liver: Noted history of treated hepatitis C VTE Prophylaxis - chemical deferred in setting of thrombocytopenia Diet - gluten free Patient to be discharged home to follow-up with Dr Villegas and Dr. Bloom Total Time Total Time Spent Total Time Spent (In Minutes): It required greater than 30 minutes to prepare this patient for discharge Discharge Plan Discharge Items Patient Disposition: Home - Self-Care Reason For Visit: PANCYTOPENIA Discharge Diagnosis: neutropenic fever( fever due to low blood counts from oncology treatments) Activity: Per Instructions section Activity Comment: slowly increase activity Non-emergency contact: Primary Care Provider and Oncologist Call non-emergency contact if: your symptoms worsen and you have a fever Follow-up/Referrals: Renyold Villegas MD [Primary Care Provider] - 11/07/21 11:00 am (With RHINA Amaro) Diet: Regular Addtl Attending Provider Instructions: since your illness was a result of your body being run down it is improtant that you eat drink and rest well at home Please discuss with Dr Bloom at your next appointment the timing of any additional treatments for your myelodysplastic syndrome please have Dr Villegas check your rash, please use the Prescription for Cream until then Pending Studies at Discharge: No Stand-Alone Forms: My [employer], Smoking Cessation Medications and DC Order Prescriptions: Continued Prolia 60 mg/mL syringe 60 mg subcut .q 6 months RF: 0 calcium carbonate-vitamin D3 [Caltrate with Vitamin D3] 600 mg(1,500mg) -800 unit tablet 1 tab PO QPM RF: 0 ergocalciferol (vitamin D2) 1,250 mcg (50,000 unit) capsule 50,000 unit PO WEEKLY Qty: 12 RF: 1 albuterol sulfate [ProAir HFA] 90 mcg/actuation HFA aerosol inhaler 2 puff INHALATION QID PRN (Reason: Wheezing) Qty: 8.5 RF: 5 metoprolol succinate 50 mg tablet extended release 24 hr 25 mg PO QAM Qty: 45 RF: 3 topiramate [Topamax] 100 mg tablet 100 mg PO .COMPLEX 30 Days Qty: 90 RF: 5 rizatriptan 10 mg tablet 10 mg PO DAILY PRN (Reason: Migraine Headache) Qty: 9 RF: 5 methocarbamol 750 mg tablet 750 mg PO BID PRN (Reason: Pain) Qty: 60 RF: 5 acyclovir 400 mg tablet 400 mg PO BID Qty: 60 RF: 3 oxybutynin chloride 10 mg tablet extended release 24hr 10 mg PO QAM Qty: 90 RF: 1 Myrbetriq 50 mg tablet extended release 24 hr 50 mg PO HS Qty: 90 RF: 3 gabapentin [Neurontin] 400 mg capsule 400 mg PO QAM 30 Days Qty: 30 RF: 3 potassium chloride 20 mEq tablet extended release 20 meq PO QAM Qty: 30 RF: 5 quetiapine [Seroquel] 50 mg tablet 50 mg PO HS Qty: 30 RF: 5 clonazepam 1 mg tablet 0.5 mg PO HS Qty: 30 RF: 2 budesonide-formoterol [Symbicort] 80-4.5 mcg/actuation HFA aerosol inhaler 2 puff inhalation BID Qty: 3 RF: 3 iqnlljzoge-yevdcffcvvajo-jyjg [Esgic] 50-325-40 mg tablet 1 tab PO DAILY PRN (Reason: HEADACHES) 30 Days Qty: 12 RF: 0 phenazopyridine [Pyridium] 200 mg tablet 200 mg PO BID PRN (Reason: pain) Qty: 7 RF: 0 sertraline [Zoloft] 50 mg tablet 50 mg PO HS Qty: 30 RF: 11 (DME) Auto Titrating CPAP Misc See Rx Instructions .ROUTE .MEDSUPPLY Qty: 1 RF: 0 (DME) CPAP Supplies Misc See Rx Instructions .ROUTE .MEDSUPPLY Qty: 1 RF: 0 cyanocobalamin (vitamin B-12) 1,000 mcg/mL Solution 1,000 mcg IM MONTHLY RF: 0 ferrous sulfate [iron] 325 mg (65 mg iron) Tablet 325 mg PO QAM RF: 0 vitamin E 400 unit Capsule 400 unit PO QAM RF: 0 multivitamin Tablet 1 tab PO QAM RF: 0 cetirizine [Zyrtec] 10 mg Tablet 10 mg PO QAM RF: 0 vitamin B complex [B-Complex] Tablet 1 tab PO QAM RF: 0 folic acid 1 mg Tablet 1 mg PO QAM RF: 0 magnesium oxide 400 mg Capsule 400 mg PO QAM RF: 0 Medical Marijuana 1 ml sublingual UD PRN (Reason: Pain) RF: 0 coQ10 (ubiquinol) 200 mg Capsule 200 mg PO QAM RF: 0 doxycycline hyclate 100 mg capsule 100 mg PO QDD RF: 0 oxycodone 5 mg tablet 5 mg PO Q4H PRN (Reason: pain) Qty: 20 RF: 0 acetaminophen 500 mg Capsule 500 mg PO QID PRN (Reason: Pain) RF: 0 L.acidoph-B.lactis-B.longum 15 billion cell Capsule 1 cap PO QAM RF: 0 cephalexin 500 mg capsule 500 mg PO QDD RF: 0 triamcinolone acetonide 0.025 % Cream 1 applic TOPICAL BID PRN (Reason: Skin Irritation) Qty: 80 RF: 0 Discharge Orders: Discharge Order (Routine); Ordered 10/17/21 Ordered By: William Hussein Admission Data Admit Date/Time: 10/12/21 20:15 Attending Provider: William Hussein Admit Provider: Leeroy Brown Primary Care Provider: Reynold Villegas Other Providers: Caesar Barrett ; Leeroy Brown ; Ibrahima Bloom V. ; Chuy Estrada ; Yasir Mcclelland ; Guy Aguayo ; Santiago Kay I. ; Jeffrey Starr II ; Oumou Palm ; Shahram Santiago ; Wayne Austin Coding Level of Care Code D/C DAY MANAGEMENT >30 MINS Diagnoses Fever R50.9 AURORA (acute kidney injury) N17.9 Generalized weakness R53.1 RUQ pain R10.11 Pancytopenia due to antineoplastic chemotherapy D61.810; T45.1X5A Myelodysplasia (myelodysplastic syndrome) D46.9 SACHA (obstructive sleep apnea) G47.33 Hx of Clostridium difficile infection Z86.19 Celiac disease K90.0 Cirrhosis of liver K74.60
== END 2021-10-17 17:27 | disposition home or self-care (01) | DRG 809 ==
LOC: ED 15:33 → SUATTDRO 20:15 → EDINP 20:15 → 2S 10-13 20:10 → 3E 10-15 20:30

== ENCOUNTER 2021-11-17 16:19 | Inpatient (IN) ==
[2021-11-17] MEDS ORDERED: SODIUM CHLORIDE 0.9% 1000ML 500 ML IV ONE (16:58)
--- NOTE | 2021-11-17 17:01 | Emergency Department Note ---
History of Present Illness General Chief complaint: Fever Stated complaint: FEVER 101.8, FATIGUED, COVID TESTED TODAY Time Seen by Provider: 11/17/21 16:39 Source: patient Mode of arrival: EMS Limitations: no limitations History of Present Illness Provider complaint: Fever Onset (ago): day(s) Associated symptoms: + fever/chills, + loss of appetite and + malaise; no chest pain Treatments prior to arrival: none This is a 66-year-old female presents the emergency department due to concern for fever. Patient states fevers first began a few days ago, and temperatures at home reached as high as greater than 102 F. Patient states she has a h istory of MDS which was diagnosed approximately 6 months ago. She states she does have a history of low blood counts, low platelets, and recurrent UTI. Patient states she was diagnosed with a UTI 1 week ago and is taking antibiotic for it. Patient states when fevers began a few days ago, her doctor ordered a Covid test. Patient states her Covid test was performed at our facility earlier today, however she does not yet know the results. Patient denies any trouble breathing or cough. Patient states she does have chronic lower abdominal pain, and her family doctor added a pain medication for this recently but she does not feel it is helping. Patient states she is taking her Cipro as prescribed and still has 1 or 2 more days. On review of EMR, urine culture grew Klebsiella ESBL which is sensitive to Cipro. Pt seen during a time of high acuity and national emergency pandemic while we aring PPE. Home Medications Medication Instructions Recorded Confirmed Type cetirizine 10 mg tablet (Zyrtec) 10 mg PO QAM 07/16/18 11/17/21 History folic acid 1 mg tablet 1 mg PO QAM 07/16/18 11/17/21 History magnesium oxide 400 mg PO QAM 07/16/18 11/17/21 History multivitamin 1 tab PO QAM 07/16/18 11/17/21 History vitamin B complex (B-Complex) 1 tab PO QAM 07/16/18 11/17/21 History calcium carbonate 600 mg-vitamin 1 tab PO QPM 11/26/18 11/17/21 History D3 20 mcg (800 unit) tablet (Caltrate with Vitamin D3) cyanocobalamin (vitamin B-12) 1,000 mcg IM MONTHLY 02/10/19 11/17/21 History 1,000 mcg/mL injection solution ferrous sulfate 325 mg (65 mg 325 mg PO QAM 02/10/19 11/17/21 History iron) tablet (iron) vitamin E 400 unit capsule 400 unit PO QAM 08/28/19 11/17/21 History Medical Marijuana 1 ml SUBLINGUAL UD PRN 06/27/20 11/17/21 History denosumab 60 mg/mL subcutaneous 60 mg SUBCUT .q 6 months ml 12/17/20 11/17/21 History syringe (Prolia) acetaminophen 500 mg capsule 500 mg PO QID PRN 01/24/21 11/17/21 History L.acidophilus-B.lactis-B.longum 15 1 cap PO QAM 02/03/21 11/17/21 History billion cell capsule ergocalciferol (vitamin D2) 1,250 50,000 unit PO WEEKLY #12 cap 02/28/21 11/17/21 Rx mcg (50,000 unit) capsule albuterol sulfate 90 mcg/actuation 2 puff INHALATION QID PRN #8.5 gm 04/22/21 11/17/21 Rx aerosol inhaler (ProAir HFA) metoprolol succinate 50 mg 25 mg PO QAM #45 tab 05/23/21 11/17/21 Rx tablet,extended release 24 hr Auto Titrating CPAP #1 ea 06/01/21 10/24/21 Rx CPAP Supplies #1 ea 06/01/21 10/24/21 Rx methocarbamol 750 mg tablet 750 mg PO BID PRN #60 tab 06/21/21 11/17/21 Rx rizatriptan 10 mg tablet 10 mg PO DAILY PRN #9 tab 06/21/21 11/17/21 Rx oxybutynin chloride 10 mg 10 mg PO QAM #90 tab 07/14/21 11/17/21 Rx tablet,extended release 24 hr mirabegron 50 mg tablet,extended 50 mg PO HS #90 tab 07/25/21 11/17/21 Rx release 24 hr (Myrbetriq) coQ10 (ubiquinol) 200 mg capsule 200 mg PO QAM 08/10/21 11/17/21 History doxycycline hyclate 100 mg capsule 100 mg PO QDD 08/10/21 11/17/21 History gabapentin 400 mg capsule 400 mg PO QAM 30 Days #30 cap 08/11/21 11/17/21 Rx (Neurontin) potassium chloride 20 mEq 20 meq PO QAM #30 tab 08/11/21 11/17/21 Rx tablet,extended release oxycodone 5 mg tablet 5 mg PO Q4H PRN #20 tab 08/18/21 11/17/21 Rx budesonide-formoterol HFA 80 2 puff INHALATION BID #3 inhaler 08/22/21 11/17/21 Rx mcg-4.5 mcg/actuation aerosol inhaler (Symbicort) clonazepam 1 mg tablet 0.5 mg PO HS #30 tab 08/22/21 11/17/21 Rx quetiapine 50 mg tablet (Seroquel) 50 mg PO HS #30 tab 08/22/21 11/17/21 Rx zgamjcedsd-ftcndozbwxmnm-jotitjew 1 tab PO DAILY PRN 30 Days #12 tab 09/27/21 11/17/21 Rx 50 mg-325 mg-40 mg tablet (Esgic) phenazopyridine 200 mg tablet 200 mg PO BID PRN #7 tab 10/03/21 11/17/21 Rx (Pyridium) sertraline 50 mg tablet (Zoloft) 50 mg PO HS #30 tab 10/03/21 11/17/21 Rx cephalexin 500 mg capsule 500 mg PO QDD 10/12/21 11/17/21 History triamcinolone acetonide 0.025 % 1 applic TOPICAL BID PRN #80 g 10/17/21 11/17/21 Rx topical cream diphenhydramine HCl 25 mg capsule 25 mg PO Q6H PRN 10/31/21 11/17/21 History (Benadryl) ciprofloxacin HCl 250 mg tablet 250 mg PO BID #10 tab 11/14/21 11/17/21 Rx (Cipro) acyclovir 400 mg tablet 400 mg PO .AM & HS 11/17/21 11/17/21 History topiramate 100 mg tablet (Topamax) 100 mg PO QAM 11/17/21 11/17/21 History topiramate 200 mg tablet (Topamax) 200 mg PO HS 11/17/21 11/17/21 History vancomycin 125 mg capsule 125 mg PO 2XWK 11/17/21 11/17/21 History Allergies Allergy/AdvReac Type Severity Reaction Status Date / Time bee venom protein (honey bee) Allergy Severe Difficulty Verified 11/17/21 18:01 Breathing adhesive Allergy Intermediate Red torn Verified 11/17/21 18:01 skin Iodinated Contrast Media Allergy Intermediate Hives Verified 11/17/21 18:01 iodine Allergy Intermediate Hives Verified 11/17/21 18:01 levofloxacin Allergy Intermediate numbness/we Verified 11/17/21 18:01 akness pregabalin Allergy Intermediate fever?/?cher Verified 11/17/21 18:01 h strawberry Allergy Intermediate Hives Verified 11/17/21 18:01 Sulfa (Sulfonamide Allergy Intermediate Rash, hives Verified 11/17/21 18:01 Antibiotics) vancomycin Allergy Intermediate Bullous Verified 11/17/21 18:01 skin rash allopurinol Allergy Mild Rash Verified 11/17/21 18:01 ceftriaxone [From Rocephin] Allergy Mild Rash Verified 11/17/21 18:01 piperacillin [From Zosyn] Allergy Mild Rash Verified 11/17/21 18:01 tazobactam [From Zosyn] Allergy Mild Rash Verified 11/17/21 18:01 venlafaxine Allergy Unknown Unknown Verified 11/17/21 18:01 gluten AdvReac Severe Celiac Dz Verified 11/17/21 18:01 = GI symptoms propoxyphene AdvReac Intermediate [employer] side Verified 11/17/21 18:01 effects Past Med/Surg History Medical History (Updated 11/18/21 @ 01:09 by Florence Kulkarni DO) Asthma Celiac disease Cellulitis Recurrent B/L LE - on prophylactic abx (Follows with Dr. Nielson). on chronic Cephalexin and Doxy Chronic back pain Chronic kidney disease Stage III > follows Dr. Fleming Chronic obstructive pulmonary disease Emphysema Cirrhosis of liver Hx of Hep C with cirrhosis Depression History of blood transfusion History of recurrent UTI (urinary tract infection) Hx MRSA infection several yrs ago Hx of cancer of lung s/p radiation (2012), recurrence (2019 in [facility]) s/p radiation- follows with heme/onc Hx of Clostridium difficile infection on Vanco 2x/week for prophylaxis Hx of deep venous thrombosis LLE (1976) Hx of hepatitis C 2013 > "resolved" Hx of non-Hodgkin's lymphoma s/p treatment in 2013 Hydronephrosis b/l chronic hydronephrosis requiring routine stent exchanges Hyperlipidemia Migraine Mood disorder Myelodysplasia (myelodysplastic syndrome) Diagnosed 07/09/21 by bone marrow biopsy. Being treated with Azacitidine and Procrit injections. 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 Pagan Thrombocytopenia Chronic (platelet baseline in the 40-70s over the past few months) Venous stasis dermatitis Surgical History H/O bursectomy Right knee History of bone marrow biopsy History of bronchoscopy History of carpal tunnel release Left History of cystoscopy Multiple Bilateral Retrograde Pyelogram (05/27/21): MAC at [facility] History of esophagogastroduodenoscopy (EGD) History of liver biopsy History of tooth extraction History of ureter stent MULTIPLE Hx of bladder repair surgery FOR PROLAPSE Hx of colonoscopy Hx of tonsillectomy Hx of tubal ligation Family History Unknown Heart disease Hypertension Mother Psoriasis Diabetes Social History Smoking Status: Unknown if ever smoked Tobacco Type: Cigarettes Cigarettes Per Day: Quit 02/2011; Second Hand Exposure: No; Hx Alcohol Use: No Hx Substance Use: No Preferred Language: Niuean Communication Ability: Effective Visual Impairment: No Limitations Hearing Ability: Normal It Portfolio Manager Required: No Beliefs That Will Affect Care: None marital status: / Current Living Situation: Family Current Living Situation Comment: Son and son's girlfriend current occupational status: retired How many Children do You have: 2 Feels Safe at Home: Yes Safety Concerns: Feels Safe At This Time Assistive Devices: Glasses Review of Systems A total of 10 systems reviewed and were otherwise negative All systems reviewed & are unremarkable except as noted in HPI & below Physical Exam Vital Signs Vital Signs - 24 hr 11/17/21 16:24 11/17/21 16:49 11/17/21 17:00 Temperature 37.1 C Temperature Source Temporal Artery Scan Pulse Rate 90 87 85 Pulse Rate [Apical] Pulse Rate from SpO2 Sensor 87 85 Respiratory Rate 16 21 22 Respiratory Effort / Characteristics Blood Pressure 91/60 L 87/43 L Blood Pressure [Left Arm] Blood Pressure Mean 70 57 Blood Pressure Mean [Left Arm] Pulse Oximetry 96 95 98 Oxygen Delivery Method Room Air Sepsis Recent Fever Within 48 Hours No Sepsis New/Unexplained Change in Mental Status N/A Sepsis Action Taken by Nursing No Action Required 11/17/21 17:15 11/17/21 17:20 11/17/21 17:21 Temperature Temperature Source Pulse Rate 87 Pulse Rate [Apical] 86 Pulse Rate from SpO2 Sensor 88 Respiratory Rate 14 16 Respiratory Effort / Characteristics Non-Labored Blood Pressure 89/42 L Blood Pressure [Left Arm] 89/42 L Blood Pressure Mean 57 Blood Pressure Mean [Left Arm] 57 Pulse Oximetry 99 98 Oxygen Delivery Method Sepsis Recent Fever Within 48 Hours Sepsis New/Unexplained Change in Mental Status Sepsis Action Taken by Nursing 11/17/21 17:30 11/17/21 17:45 11/17/21 18:00 Temperature Temperature Source Pulse Rate 84 83 82 Pulse Rate [Apical] Pulse Rate from SpO2 Sensor 85 81 83 Respiratory Rate 19 18 17 Respiratory Effort / Characteristics Blood Pressure 93/45 L 84/54 L 93/45 L Blood Pressure [Left Arm] Blood Pressure Mean 61 64 61 Blood Pressure Mean [Left Arm] Pulse Oximetry 91 94 91 Oxygen Delivery Method Sepsis Recent Fever Within 48 Hours Sepsis New/Unexplained Change in Mental Status Sepsis Action Taken by Nursing 11/17/21 18:15 11/17/21 18:30 11/17/21 18:45 Temperature Temperature Source Pulse Rate 86 81 75 Pulse Rate [Apical] Pulse Rate from SpO2 Sensor 85 81 75 Respiratory Rate 18 20 18 Respiratory Effort / Characteristics Blood Pressure 98/44 L 105/53 L 103/51 L Blood Pressure [Left Arm] Blood Pressure Mean 62 70 68 Blood Pressure Mean [Left Arm] Pulse Oximetry 93 99 97 Oxygen Delivery Method Sepsis Recent Fever Within 48 Hours Sepsis New/Unexplained Change in Mental Status Sepsis Action Taken by Nursing 11/17/21 19:00 Temperature Temperature Source Pulse Rate 79 Pulse Rate [Apical] Pulse Rate from SpO2 Sensor 78 Respiratory Rate 15 Respiratory Effort / Characteristics Blood Pressure 107/48 L Blood Pressure [Left Arm] Blood Pressure Mean 67 Blood Pressure Mean [Left Arm] Pulse Oximetry 97 Oxygen Delivery Method Sepsis Recent Fever Within 48 Hours Sepsis New/Unexplained Change in Mental Status Sepsis Action Taken by Nursing GENERAL: alert, unwell appearing, thin and petite body habitus, no distress, non-toxic EYE EXAM: normal conjunctiva, PERRL and EOM's grossly intact OROPHARYNX: no exudate, no erythema, lips, buccal mucosa, and tongue normal and mucous membranes are moist NECK: supple, no nuchal rigidity, no adenopathy, non-tender LUNGS: Clear to auscultation. Normal chest wall mechanics, no w/r/r HEART: no murmurs, S1 normal and S2 normal ABDOMEN: abdomen soft, mild discomfort with palpation over the lower abdomen, normo-active bowel sounds, no masses, no rebound or guarding. BACK: Back is symmetrical on inspection and there is no deformity, no midline tenderness, no CVA tenderness. SKIN: no rashes and no bruising, areas of petechiae and bruising noted bilateral forearms UPPER EXTREMITIES: upper extremities are grossly normal. FROM, nml pulses b/l. LOWER EXTREMITIES: No pitting edema. FROM, nml pulses b/l. NEURO EXAM: Normal sensorium, cranial nerves II-XII grossly intact, normal speech, no gross weakness of arms, no gross weakness of legs. Gross sensation intact. Course Course 182: Patient updated on lab abnormalities and need for blood transfusion. Patient signed consent form at bedside. Blood pressure is slightly improved. Administered Medications Acetaminophen (Acetaminophen 500 Mg Tab) 500 mg PO QID PRN PRN Reason: Pain Stop: 12/17/21 21:39 Last Admin: 11/17/21 21:48 Dose: 500 mg Documented by: [id number] Acyclovir (Acyclovir 400 Mg Tab) 400 mg PO BID [facility] Stop: 12/17/21 21:20 Last Admin: 11/17/21 22:54 Dose: 400 mg Documented by: [id number] Meropenem 500 mg/ Syringe 10 mls @ 2 mls/min IV Q12H [facility]; Protocol Stop: 11/27/21 21:59 Last Admin: 11/17/21 22:53 Dose: 2 mls/min Documented by: [id number] Mirabegron (Mirabegron Er 25 Mg Tab) 50 mg PO [facility] Stop: 12/17/21 21:20 Last Admin: 11/17/21 22:55 Dose: 50 mg Documented by: [id number] Sertraline HCl (Sertraline Hcl 50 Mg Tablet) 50 mg PO [facility] Stop: 12/17/21 21:20 Last Admin: 11/17/21 22:56 Dose: 50 mg Documented by: [id number] Topiramate (Topiramate 100 Mg Tab) 200 mg PO [facility] Stop: 12/17/21 21:20 Last Admin: 11/17/21 22:54 Dose: 200 mg Documented by: [id number] Discontinued Medications Sodium Chloride (Nss 1000ml) 500 mls @ 999 mls/hr IV .Q31M ONE Stop: 11/17/21 17:28 Last Infusion: 11/17/21 18:31 Dose: 0 mls/hr Documented by: [id number] Admin: 11/17/21 17:26 Dose: 999 mls/hr Documented by: [id number] Sodium Chloride (Nss) 500 mls @ 999 mls/hr IV .Q31M ONE Stop: 11/17/21 18:12 Last Infusion: 11/17/21 18:31 Dose: 0 mls/hr Documented by: [id number] Admin: 11/17/21 17:57 Dose: 999 mls/hr Documented by: [id number] Lactated Ringer's (Lr) 1,000 mls @ 150 mls/hr IV .Q6H40M [facility]IRDIE Stop: 12/17/21 18:29 Last Infusion: 11/17/21 21:28 Dose: 0 mls/hr Documented by: [id number] Admin: 11/17/21 19:39 Dose: 150 mls/hr Documented by: [id number] Morphine Sulfate (Morphine Sulfate 2 Mg/Ml Carp) 2 mg IV NOW STA Stop: 11/17/21 19:26 Last Admin: 11/17/21 19:40 Dose: 2 mg Documented by: [id number] Raspberry (Raspberry Syrup 5 Ml Udp) 5 ml PO ONE STA Stop: 11/17/21 21:05 Last Admin: 11/17/21 23:25 Dose: 5 ml Documented by: [id number] Vancomycin HCl (Vancomycin Hcl 125 Mg/2.5ml Soln) 125 mg PO ONE STA Stop: 11/17/21 21:05 Last Admin: 11/17/21 23:25 Dose: 125 mg Documented by: [id number] Critical Care Time Critical Care Time: Yes Total Critical Care Time: 35 Critical care of 35 min performed to assess and manage high likelihood of life- threatening anemia, involving labs and imaging performed with assessment to evaluate anemia diagnosis with frequent reassessment. This time includes bedside time, treatment discussions with patient/family/consultants, documentation time and excludes procedure time. Medical Decision Making Differential Diagnosis Differential diagnosis: Etiologies such as viral syndrome, otitis, pharyngitis, pneumonia, influenza, meningitis, urinary tract infection, sepsis, bacteremia, as well as others were entertained. Medical Records Attestation: I reviewed the patient's medical records. Home Medications Current Medication List: was personally reviewed by me Laboratory Data Attestation: I reviewed the patient's lab results. Result diagrams: 11/17/21 17:09 11/17/21 17:09 Lab Results 11/17/21 11/17/21 11/17/21 Range/Units 17:09 17:09 17:09 WBC 1.00 L (4.8-10.8) K/uL RBC 2.52 L (4.2-5.4) M/uL Hgb 6.2 L* (12.0-16.0) g/dL Hct 20.9 L* (37-47) % MCV 82.9 (80-100) fL MCH 24.6 L (25-34) pg MCHC 29.7 L (32-36) g/dL RDW Std Deviation 61.8 H (36.4-46.3) fL RDW Coeff of Irasema 21.2 H (11.5-14.5) % Plt Count 20 L* (130-400) K/uL Immature Gran % (Auto) 1.0 % Neut % (Auto) 22.0 % Lymph % (Auto) 61.0 % [place] % (Auto) 16.0 % Eos % (Auto) 0.0 % Baso % (Auto) 0.0 % Neut # (Auto) 0.22 L* (1.4-6.5) K/uL Lymph # (Auto) 0.61 L (1.2-3.4) K/uL [place] # (Auto) 0.16 (0.11-0.59) K/uL Eos # (Auto) 0.00 (0-0.5) K/uL Baso # (Auto) 0.00 (0-0.2) K/uL Immature Gran # (Auto) 0.01 (0.00-0.02) K/uL Absolute Nucleated RBC 0.05 H (0-0) K/uL Nucleated RBC % (auto) 5.4 % Polychromasia 1+ Basophilic Stippling 1+ Tear Drop Cells 1+ PT 14.1 H (9.0-12.0) Seconds INR 1.4 H (0.9-1.1) Sodium 132 L (136-145) mmol/L Potassium 4.2 (3.5-5.1) mmol/L Chloride 105 (98-107) mmol/L Carbon Dioxide 18 L (21-32) mmol/L Anion Gap 9 (3-11) BUN 28 H (6-23) mg/dl Creatinine 1.59 H (0.6-1.2) mg/dl Est Cr Clr Drug Dosing Not Reportable Est GFR ( Amer) 38.8 ml/min Est GFR (Non-Af Amer) 33.5 ml/min BUN/Creatinine Ratio 17.6 (10-20) Glucose 100 H (70-99(Fasting)) mg/dl Lactate (0.4-2.0) mmol/L Calcium 8.2 L (8.5-10.1) mg/dl Magnesium 1.8 (1.7-2.4) mg/dl Total Bilirubin 0.4 (0.2-1.0) mg/dl AST 14 (13-39) U/L ALT 17 (7-52) U/L Alkaline Phosphatase 102 (34-104) U/L Troponin I < 0.03 (0-0.04) ng/ml C-Reactive Protein (0-0.5) mg/dl Total Protein 6.1 (6.0-8.3) gm/dl Albumin 3.5 (3.4-5.0) gm/dl Globulin 2.6 (2.5-4.0) gm/dl Albumin/Globulin Ratio 1.3 (0.9-2) Procalcitonin (0-0.5) ng/ml SARS-CoV-2 (PCR) (Negative) Influenza Type A (PCR) (Neg) Influenza Type B (PCR) (Neg) RSV (RT-PCR) (Neg) Blood Type Antibody Screen Crossmatch 11/17/21 11/17/21 11/17/21 Range/Units 17:09 17:09 17:09 WBC (4.8-10.8) K/uL RBC (4.2-5.4) M/uL Hgb (12.0-16.0) g/dL Hct (37-47) % MCV (80-100) fL MCH (25-34) pg MCHC (32-36) g/dL RDW Std Deviation (36.4-46.3) fL RDW Coeff of Irasema (11.5-14.5) % Plt Count (130-400) K/uL Immature Gran % (Auto) % Neut % (Auto) % Lymph % (Auto) % [place] % (Auto) % Eos % (Auto) % Baso % (Auto) % Neut # (Auto) (1.4-6.5) K/uL Lymph # (Auto) (1.2-3.4) K/uL [place] # (Auto) (0.11-0.59) K/uL Eos # (Auto) (0-0.5) K/uL Baso # (Auto) (0-0.2) K/uL Immature Gran # (Auto) (0.00-0.02) K/uL Absolute Nucleated RBC (0-0) K/uL Nucleated RBC % (auto) % Polychromasia Basophilic Stippling Tear Drop Cells PT (9.0-12.0) Seconds INR (0.9-1.1) Sodium (136-145) mmol/L Potassium (3.5-5.1) mmol/L Chloride (98-107) mmol/L Carbon Dioxide (21-32) mmol/L Anion Gap (3-11) BUN (6-23) mg/dl Creatinine (0.6-1.2) mg/dl Est Cr Clr Drug Dosing Est GFR ( Amer) ml/min Est GFR (Non-Af Amer) ml/min BUN/Creatinine Ratio (10-20) Glucose (70-99(Fasting)) mg/dl Lactate 1.2 (0.4-2.0) mmol/L Calcium (8.5-10.1) mg/dl Magnesium (1.7-2.4) mg/dl Total Bilirubin (0.2-1.0) mg/dl AST (13-39) U/L ALT (7-52) U/L Alkaline Phosphatase (34-104) U/L Troponin I (0-0.04) ng/ml C-Reactive Protein 7.77 H (0-0.5) mg/dl Total Protein (6.0-8.3) gm/dl Albumin (3.4-5.0) gm/dl Globulin (2.5-4.0) gm/dl Albumin/Globulin Ratio (0.9-2) Procalcitonin 0.30 (0-0.5) ng/ml SARS-CoV-2 (PCR) (Negative) Influenza Type A (PCR) (Neg) Influenza Type B (PCR) (Neg) RSV (RT-PCR) (Neg) Blood Type Antibody Screen Crossmatch 11/17/21 11/17/21 Range/Units 17:22 18:32 WBC (4.8-10.8) K/uL RBC (4.2-5.4) M/uL Hgb (12.0-16.0) g/dL Hct (37-47) % MCV (80-100) fL MCH (25-34) pg MCHC (32-36) g/dL RDW Std Deviation (36.4-46.3) fL RDW Coeff of Irasema (11.5-14.5) % Plt Count (130-400) K/uL Immature Gran % (Auto) % Neut % (Auto) % Lymph % (Auto) % [place] % (Auto) % Eos % (Auto) % Baso % (Auto) % Neut # (Auto) (1.4-6.5) K/uL Lymph # (Auto) (1.2-3.4) K/uL [place] # (Auto) (0.11-0.59) K/uL Eos # (Auto) (0-0.5) K/uL Baso # (Auto) (0-0.2) K/uL Immature Gran # (Auto) (0.00-0.02) K/uL Absolute Nucleated RBC (0-0) K/uL Nucleated RBC % (auto) % Polychromasia Basophilic Stippling Tear Drop Cells PT (9.0-12.0) Seconds INR (0.9-1.1) Sodium (136-145) mmol/L Potassium (3.5-5.1) mmol/L Chloride (98-107) mmol/L Carbon Dioxide (21-32) mmol/L Anion Gap (3-11) BUN (6-23) mg/dl Creatinine (0.6-1.2) mg/dl Est Cr Clr Drug Dosing Est GFR ( Amer) ml/min Est GFR (Non-Af Amer) ml/min BUN/Creatinine Ratio (10-20) Glucose (70-99(Fasting)) mg/dl Lactate (0.4-2.0) mmol/L Calcium (8.5-10.1) mg/dl Magnesium (1.7-2.4) mg/dl Total Bilirubin (0.2-1.0) mg/dl AST (13-39) U/L ALT (7-52) U/L Alkaline Phosphatase (34-104) U/L Troponin I (0-0.04) ng/ml C-Reactive Protein (0-0.5) mg/dl Total Protein (6.0-8.3) gm/dl Albumin (3.4-5.0) gm/dl Globulin (2.5-4.0) gm/dl Albumin/Globulin Ratio (0.9-2) Procalcitonin (0-0.5) ng/ml SARS-CoV-2 (PCR) POSITIVE A* (Negative) Influenza Type A (PCR) Negative (Neg) Influenza Type B (PCR) Negative (Neg) RSV (RT-PCR) Negative (Neg) Blood Type B Positive Antibody Screen POSITIVE A Crossmatch See Detail Imaging Data Radiologist's Impression: Chest X-Ray 11/17/21 16:43 SINGLE VIEW CHEST CLINICAL HISTORY: Sepsis. Lung cancer. FINDINGS: An AP, portable, upright chest radiograph is compared to study dated 10/12/2021 and correlated with chest CT dated 08/01/2021 and PET/CT dated 02/02/2021. The cardiomediastinal silhouette is unremarkable noting atherosclerotic calcification of the thoracic aorta. Advanced emphysema and chronic interstitial thickening is similar to previous. Parenchyma scarring in the right upper lobe is unchanged. Mild airspace opacities are again seen at the right lung base. No large pleural effusion or pneumothorax is identified. The skeletal structures are osteopenic. Thickening and sclerosis of the right anterior upper ribs is similar to previous. There is chronic posttraumatic deformity of the left proximal humerus. IMPRESSION: 1. Mild airspace opacities are again seen at the right lung base. This is s imilar to previous and a mild infectious/inflammatory pneumonitis is not excluded. 2. Emphysema with chronic and treatment related changes as above. ACT 112: Negative or not required by law. Electronically signed by: Zohaib Montoya M.D. 11/17/2021 5:04 PM ECG Data Attestation: I personally reviewed and interpreted this ECG as follows: Indication: + abdominal pain Rate (beats per minute): 85 Rhythm: + normal sinus ECG Intervals/blocks: + Normal QRS and + Normal QT ECG [place]: + Normal ECG ST segments: + Normal ST segments MDM Narrative This is a 66-year-old female with multiple medical problems who presents due to concern for persistent fever. Patient recently treated as an outpatient for UTI, still finishing her course of Cipro as prescribed. Patient did have a recent possible Covid positive sick contact, and did have a Covid swab performed at the hospital earlier today although this appears to been a send out will not be run until tomorrow. Patient was instructed to come in if she continued to feel worse. Due to persistent fevers, patient presented to the emergency room. Patient does have history of MDS and pancytopenia. Patient found to have worse anemia compared to prior as she states they typically try and keep her hemoglobin above 8. She has undergone prior transfusions, and does receive scheduled Procrit injections. I did review prior urine culture. Patient noted to have mild AURORA with a bump in her creatinine compared to prior baseline. Patient does admit to decreased p.o. intake in the last 2 days due to not feeling well. Patient did sign blood consent form, unit of blood was ordered. Patient ultimately was found to be Covid positive. This was discussed with the patient at bedside in addition. Patient with no obvious respiratory distress or hypoxia. Case discussed with hospitalist for additional evaluation and managem ent. An order was placed for continuous cardiac monitoring. The monitor shows a rate of __88_ with _normal sinus__ rhythm. Impression & Plan Fever, Pancytopenia, Acute UTI (urinary tract infection), AURORA (acute kidney injury), Dehydration, COVID-19 Discharge Plan Visit Data Chief Complaint: Fever Stated Complaint: FEVER 101.8, FATIGUED, COVID TESTED TODAY ED Provider: Florence Kulkarni Discharge Problem: Fever, Pancytopenia, Acute UTI (urinary tract infection), AURORA (acute kidney injury), Dehydration, COVID-19 Patient Disposition: Admitted As Inpatient Discharge Instructions Interventions: ED Discharge Assessment Last Done: 11/17/21 20:40 Discharge Problem: Fever Qualifiers: Fever type: unspecified Qualified Code(s): R50.9 - Fever, unspecified
--- NOTE | 2021-11-17 17:05 | XRay Report ---
SINGLE VIEW CHEST CLINICAL HISTORY: Sepsis. Lung cancer. FINDINGS: An AP, portable, upright chest radiograph is compared to study dated 10/12/2021 and correla mireya with chest CT dated 08/01/2021 and PET/CT dated 02/02/2021. The cardiomediastinal silhouette is un remarkable noting atherosclerotic calcification of the thoracic aorta. Advanced emphysema and chronic interstitial thickening is similar to previous. Parenchyma scarring in the right upper lobe is uncha nged. Mild airspace opacities are again seen at the right lung base. No large pleural effusion or pne umothorax is identified. The skeletal structures are osteopenic. Thickening and sclerosis of the righ t anterior upper ribs is similar to previous. There is chronic posttraumatic deformity of the left pr oximal humerus. IMPRESSION: 1. Mild airspace opacities are again seen at the right lung base. This is similar to previous and a mild infectious/inflammatory pneumonitis is not excluded. 2. Emphysema with chronic and treatment related changes as above. ACT 112: Negative or not required by law. Electronically signed by: Zohaib Montoya M.D. 11/17/2021 5:04 PM
[2021-11-17 17:31] LABS: INR 1.4 (0.9-1.1); Prothrombin Time 14.1 Seconds (9.0-12.0)
[2021-11-17] MEDS ORDERED: SODIUM CHLORIDE 0.9% 500 ML IV ONE (17:42)
[2021-11-17 17:46] LABS: Troponin I < 0.03 ng/ml (0-0.04)
[2021-11-17 17:57] LABS: Alanine Aminotransferase 17 U/L (7-52); Albumin Globulin Ratio 1.3 (0.9-2); Albumin Level 3.5 gm/dl (3.4-5.0); Alkaline Phosphatase 102 U/L (34-104); Anion Gap 9 (3-11); Aspartate Aminotransferase 14 U/L (13-39); BUN Creatinine Ratio 17.6 (10-20); Bilirubin,Total 0.4 mg/dl (0.2-1.0); Blood Urea Nitrogen 28 mg/dl (6-23); Calcium 8.2 mg/dl (8.5-10.1); Carbon Dioxide 18 mmol/L (21-32); Chloride 105 mmol/L (98-107); Est GFR (African American) 38.8 ml/min; Est GFR (Non-African American) 33.5 ml/min; Globulin 2.6 gm/dl (2.5-4.0); Glucose 100 mg/dl (70-99(Fasting)); Magnesium 1.8 mg/dl (1.7-2.4); Potassium 4.2 mmol/L (3.5-5.1); Sodium 132 mmol/L (136-145); Total Protein 6.1 gm/dl (6.0-8.3)
[2021-11-17 18:16] LABS: Hematocrit (blood only) 20.9 % (37-47); Hemoglobin 6.2 g/dL (12.0-16.0); Mean Corpuscular Hemoglobin 24.6 pg (25-34); Mean Corpuscular Hgb Conc 29.7 g/dL (32-36); Mean Corpuscular Volume 82.9 fL (80-100); Nucleated RBC # (auto) 0.05 K/uL (0-0); Nucleated RBC % (auto) 5.4 %; Platelet Count 20 K/uL (130-400); RDW Coefficient of Variation 21.2 % (11.5-14.5); RDW Standard Deviation 61.8 fL (36.4-46.3); Red Blood Count 2.52 M/uL (4.2-5.4)
[2021-11-17 18:23] LABS: Influenza A virus by PCR Negative (Neg); Influenza B virus by PCR Negative (Neg); RSV by PCR Negative (Neg)
[2021-11-17] MEDS ORDERED: LACTATED RINGER'S 1,000 ML IV SCH (18:30)
[2021-11-17] MEDS ORDERED: SODIUM CHLORIDE 0.9% 250 ML IV PRN (18:30)
[2021-11-17 18:55] LABS: SARS CoV2 RNA(COVID-19) InHosp POSITIVE (Negative)
[2021-11-17 19:22] LABS: Basophilic Stippling 1+; Immature Granulocytes # (auto) 0.01 K/uL (0.00-0.02); Lymphocytes # (auto) 0.61 K/uL (1.2-3.4); Monocytes # (auto) 0.16 K/uL (0.11-0.59); Polychromasia 1+; Tear Drop Cells 1+
[2021-11-17 19:24] LABS: Neutrophils # (auto) 0.22 K/uL (1.4-6.5)
[2021-11-17] MEDS ORDERED: MoRPHine SULFATE 2 MG/ML CARP IV STA (19:25)
--- NOTE | 2021-11-17 19:50 | History & Physical Report ---
Date of Service November 17, 2021 Assessment & Plan (1) Sepsis: Plan: Technically meets sepsis criteria with fever, hypotension, neutropenia, and organ dysfunction. DDX: Sepsis from bacterial infection (Urine or other) vs. COVID infection - Blood cultures drawn x2 prior to abx - suspected source is urine- await culture results- - She was adequately resuscitated in the EMD with 1L of crystalloid and 1unit of PRBC - Continue meropenem 500mg IV q12- renally dosed - Continue acyclovir for her suppressive therapy - Hold home doxy - MAPS > 65- currently doing well following above resuscitation - Follow organ dysfunction- Renal function and INR- See hospital d/c summary or Urology note from 10/13/21 regarding sepsis secondary to urine source if this is her case. (2) COVID-19: Plan: COVID 19 patient is vaccinated and boosted - Difficult to ascertain day of illness- although she reports fevers worsening over past 2-3 days - CXR no opacification and no respiratory symptoms - Not candidate at this time for remdesivir with her GFR- may change if this improves with her renal function - CRP pending - Consider Haematology consultation for treatment recs as she is also receiving chemo - SCDS for VTE - Follow clinical course as above (3) Myelodysplastic disease: Plan: As per HPI - with her treatments this has resulted in continued fevers and pancytopenia as noted - Difficult to ascertain if COVID is effecting her WBC count as well - She has received Epogen on Sunday she reports - She has also received Neupogen in the past - As above- if clinical picture worsens or further eval needed consult haematology (4) Obstructive sleep apnea: Plan: Continue CPAP at night or PRN if hypoxia ensues secondary to sepsis/COVID - CPAP at home AutoPap 5-15 or CPAP of 10 if unable to do AutoPap (5) Pancytopenia due to antineoplastic chemotherapy: Plan: As above- follow clinically for this - no urgent need at this time - Her WBC count is 1.0 her ANC is 0.23 - Platelet count remains low @ 20- replace if further decrease - SCD for VTE regarding her platelet counts - Consider Neupogen and Haematology consultation (6) S/P ureteral stent placement: Plan: Placed for hydronephrosis 08/11 with exchange done 09/26/21 - As above- await UA with culture (7) Chronic kidney disease, stage III (moderate): Plan: As above- follow post resuscitation - renally dose medications - avoid further nephrotoxic medications - AURORA II (8) Neutropenic fever: Plan: As above - Continue with Meropenem (9) Hydronephrosis: Plan: As above (10) Hx of Clostridium difficile infection: Plan: No diarrhea - has been on prophy Vancomycin in the past while on ABX - defer to rounding team in the morning History of Present Illness Chief Complaint: fever Primary Care Provider: Reynold Villegas MD 66 YOF with past medical history of: Myelodysplastic syndrome ( on 5-azacitidine- dx 2020), anemia secondary to chemotherapy(receives blood transfusions and Epogen injections), SAHCA, urinary incontinence, COPD (emphysema), SCLC of the lung, Pro-thombin factor 2 mutation, celiac disease, CVA, she is on suppressive therapy of acyclovir and doxycycline (for cellulitis), frequent UTI with (ESBL Klebsiella and glabrata)- she has bilateral urinary stents that were placed 08/11 and exchanged in 10/11 and have not been removed secondary to continued infection and low platelet counts. The patient was admitted in September with known bilateral hydronephrosis, AURORA, fever, and UTI with ESBL Klebsiella. ID was consulted as well as urology for evaluation- she was treated with meropenem. There was some discussion regarding exchanging or irrigating and/or diverting with urostomy if she continued to not improve or clinically worsen. The patient was discharged on 10/17. Since then patient continues to have fevers at home as she checks them daily with her history of pancytopenia. She reports that over the past week few days she has been getting chills, lower back/flank pain, and worsening of her discomfort around her bladder. She had an Epogen shot on Sunday- she reports, and normally her fever goes up with that. Today she endorsed fever of 102.0 associated with the above symptoms. She remains anemic in the [facility] at 6.2- she was 8.1 on . She was typed and crossed, consented for blood by [facility] physician and is receiving 1unit PRBC. Patient denies any blood loss or dark stools. 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 Patient had sepsis workup initiated in the EMD with blood cultures x2, U/A with reflexive culture, lactate and PCT. Her CXR does not have any opacities or suspected sources. She was started on Meropenem for suspected UTI as source. Unfortunately her COVID test was positive prior to admission as well. The rest of her viral panel is negative. She does meet sepsis criteria. She received 1L of crystalloid and will also get 1unit of PRBC as above. Renal organ dysfunction noted, as well as INR 1.4, Troponin Negative and no anginal symptoms. Patient will be admitted to COVID telemetry floor and continue to follow her clinical course and await her culture results- impossible at this time to differentiate- currently no COVID therapies to offer with her Renal function and immunosuppression. Will send other inflammatory markers. Patient has received her vaccine and her boosters: COVID test on admission is: POSITIVE Allergies Allergy/AdvReac Type Severity Reaction Status Date / Time bee venom protein (honey bee) Allergy Severe Difficulty Verified 11/17/21 18:01 Breathing adhesive Allergy Intermediate Red torn Verified 11/17/21 18:01 skin Iodinated Contrast Media Allergy Intermediate Hives Verified 11/17/21 18:01 iodine Allergy Intermediate Hives Verified 11/17/21 18:01 levofloxacin Allergy Intermediate numbness/we Verified 11/17/21 18:01 akness pregabalin Allergy Intermediate fever?/?cher Verified 11/17/21 18:01 h strawberry Allergy Intermediate Hives Verified 11/17/21 18:01 Sulfa (Sulfonamide Allergy Intermediate Rash, hives Verified 11/17/21 18:01 Antibiotics) vancomycin Allergy Intermediate Bullous Verified 11/17/21 18:01 skin rash allopurinol Allergy Mild Rash Verified 11/17/21 18:01 ceftriaxone [From Rocephin] Allergy Mild Rash Verified 11/17/21 18:01 piperacillin [From Zosyn] Allergy Mild Rash Verified 11/17/21 18:01 tazobactam [From Zosyn] Allergy Mild Rash Verified 11/17/21 18:01 venlafaxine Allergy Unknown Unknown Verified 11/17/21 18:01 gluten AdvReac Severe Celiac Dz Verified 11/17/21 18:01 = GI symptoms propoxyphene AdvReac Intermediate LABEL PRINTER side Verified 11/17/21 18:01 effects Home Medications Medication Instructions Recorded Confirmed Type cetirizine 10 mg tablet (Zyrtec) 10 mg PO QAM 07/16/18 11/17/21 History folic acid 1 mg tablet 1 mg PO QAM 07/16/18 11/17/21 History magnesium oxide 400 mg PO QAM 07/16/18 11/17/21 History multivitamin 1 tab PO QAM 07/16/18 11/17/21 History vitamin B complex (B-Complex) 1 tab PO QAM 07/16/18 11/17/21 History calcium carbonate 600 mg-vitamin 1 tab PO QPM 11/26/18 11/17/21 History D3 20 mcg (800 unit) tablet (Caltrate with Vitamin D3) cyanocobalamin (vitamin B-12) 1,000 mcg IM MONTHLY 02/10/19 11/17/21 History 1,000 mcg/mL injection solution ferrous sulfate 325 mg (65 mg 325 mg PO QAM 02/10/19 11/17/21 History iron) tablet (iron) vitamin E 400 unit capsule 400 unit PO QAM 08/28/19 11/17/21 History Medical Marijuana 1 ml SUBLINGUAL UD PRN 06/27/20 11/17/21 History denosumab 60 mg/mL subcutaneous 60 mg SUBCUT .q 6 months ml 12/17/20 11/17/21 History syringe (Prolia) acetaminophen 500 mg capsule 500 mg PO QID PRN 01/24/21 11/17/21 History L.acidophilus-B.lactis-B.longum 15 1 cap PO QAM 02/03/21 11/17/21 History billion cell capsule ergocalciferol (vitamin D2) 1,250 50,000 unit PO WEEKLY #12 cap 02/28/21 11/17/21 Rx mcg (50,000 unit) capsule albuterol sulfate 90 mcg/actuation 2 puff INHALATION QID PRN #8.5 gm 04/22/21 11/17/21 Rx aerosol inhaler (ProAir HFA) metoprolol succinate 50 mg 25 mg PO QAM #45 tab 05/23/21 11/17/21 Rx tablet,extended release 24 hr Auto Titrating CPAP #1 ea 06/01/21 10/24/21 Rx CPAP Supplies #1 ea 06/01/21 10/24/21 Rx methocarbamol 750 mg tablet 750 mg PO BID PRN #60 tab 06/21/21 11/17/21 Rx rizatriptan 10 mg tablet 10 mg PO DAILY PRN #9 tab 06/21/21 11/17/21 Rx oxybutynin chloride 10 mg 10 mg PO QAM #90 tab 07/14/21 11/17/21 Rx tablet,extended release 24 hr mirabegron 50 mg tablet,extended 50 mg PO HS #90 tab 07/25/21 11/17/21 Rx release 24 hr (Myrbetriq) coQ10 (ubiquinol) 200 mg capsule 200 mg PO QAM 08/10/21 11/17/21 History doxycycline hyclate 100 mg capsule 100 mg PO QDD 08/10/21 11/17/21 History gabapentin 400 mg capsule 400 mg PO QAM 30 Days #30 cap 08/11/21 11/17/21 Rx (Neurontin) potassium chloride 20 mEq 20 meq PO QAM #30 tab 08/11/21 11/17/21 Rx tablet,extended release oxycodone 5 mg tablet 5 mg PO Q4H PRN #20 tab 08/18/21 11/17/21 Rx budesonide-formoterol HFA 80 2 puff INHALATION BID #3 inhaler 08/22/21 11/17/21 Rx mcg-4.5 mcg/actuation aerosol inhaler (Symbicort) clonazepam 1 mg tablet 0.5 mg PO HS #30 tab 08/22/21 11/17/21 Rx quetiapine 50 mg tablet (Seroquel) 50 mg PO HS #30 tab 08/22/21 11/17/21 Rx xsojiwhusi-jmzmtnxnrhyzc-xxftfkck 1 tab PO DAILY PRN 30 Days #12 tab 09/27/21 11/17/21 Rx 50 mg-325 mg-40 mg tablet (Esgic) phenazopyridine 200 mg tablet 200 mg PO BID PRN #7 tab 10/03/21 11/17/21 Rx (Pyridium) sertraline 50 mg tablet (Zoloft) 50 mg PO HS #30 tab 10/03/21 11/17/21 Rx cephalexin 500 mg capsule 500 mg PO QDD 10/12/21 11/17/21 History triamcinolone acetonide 0.025 % 1 applic TOPICAL BID PRN #80 g 10/17/21 11/17/21 Rx topical cream diphenhydramine HCl 25 mg capsule 25 mg PO Q6H PRN 10/31/21 11/17/21 History (Benadryl) ciprofloxacin HCl 250 mg tablet 250 mg PO BID #10 tab 11/14/21 11/17/21 Rx (Cipro) acyclovir 400 mg tablet 400 mg PO .AM & HS 11/17/21 11/17/21 History topiramate 100 mg tablet (Topamax) 100 mg PO QAM 11/17/21 11/17/21 History topiramate 200 mg tablet (Topamax) 200 mg PO HS 11/17/21 11/17/21 History vancomycin 125 mg capsule 125 mg PO 2XWK 11/17/21 11/17/21 History Past Med/Surg History Medical History (Updated 11/18/21 @ 14:42 by William Hussein MD) Asthma Celiac disease Cellulitis Recurrent B/L LE - on prophylactic abx (Follows with Dr. Nielson). on chronic Cephalexin and Doxy Chronic back pain Chronic kidney disease Stage III > follows Dr. Fleming Chronic obstructive pulmonary disease Emphysema Cirrhosis of liver Hx of Hep C with cirrhosis Depression History of blood transfusion History of recurrent UTI (urinary tract infection) Hx MRSA infection several yrs ago Hx of cancer of lung s/p radiation (2012), recurrence (2019 in [facility]) s/p radiation- follows with heme/onc Hx of Clostridium difficile infection on Vanco 2x/week for prophylaxis Hx of deep venous thrombosis LLE (1976) Hx of hepatitis C 2013 > "resolved" Hx of non-Hodgkin's lymphoma s/p treatment in 2013 Hydronephrosis b/l chronic hydronephrosis requiring routine stent exchanges Hyperlipidemia Migraine Mood disorder Myelodysplasia (myelodysplastic syndrome) Diagnosed 07/09/21 by bone marrow biopsy. Being treated with Azacitidine and Procrit injections. Obstructive sleep apnea 1L O2 HS Osteoporosis Poor historian R/t hx stroke Prediabetes diet control Prothrombin [id number] mutation "Factor 2 mutation" on Lovenox (lifelong), follows with [place] [facility] Psoriasis Radiation pneumonitis Stroke 1996, residual decreased right sided sensation, memory impairment, follows with Dr. Pagan Thrombocytopenia Chronic (platelet baseline in the 40-70s over the past few months) Venous stasis dermatitis Surgical History H/O bursectomy Right knee History of bone marrow biopsy History of bronchoscopy History of carpal tunnel release Left History of cystoscopy Multiple Bilateral Retrograde Pyelogram (05/27/21): [facility] at [facility] History of esophagogastroduodenoscopy (EGD) History of liver biopsy History of tooth extraction History of ureter stent MULTIPLE Hx of bladder repair surgery FOR PROLAPSE Hx of colonoscopy Hx of tonsillectomy Hx of tubal ligation Family History Unknown Heart disease Hypertension Mother Psoriasis Diabetes Social History Smoking Status: Unknown if ever smoked Tobacco Type: Cigarettes Cigarettes Per Day: Quit 02/2011; Second Hand Exposure: No; Hx Alcohol Use: No Hx Substance Use: No Preferred Language: Wolof Communication Ability: Effective Visual Impairment: No Limitations Hearing Ability: Normal Mobile Service Rv Technician Required: No Beliefs That Will Affect Care: None marital status: / Current Living Situation: Family Current Living Situation Comment: Son and son's girlfriend current occupational status: retired How many Children do You have: 2 Feels Safe at Home: Yes Safety Concerns: Feels Safe At This Time Assistive Devices: Glasses Review of Systems Review of Systems: REVIEW OF SYSTEMS: Constitutional: (+) fever, sweats or chills Eyes: No diplopia, no worsening or blurred vision ENT: normal hearing, no trouble swallowing Respiratory: No cough, sputum, dyspnea at rest or on exertion Cardiovascular: No chest pain, tightness or palpitations Abdomen: (+) supra-pubic pain, nausea, vomiting, diarrhea or constipation Musculoskeletal: No joint pain, calf pain, swelling Neurologic: No weakness, numbness/tingling, or balance problems Psychiatric: No anxiety or depression Skin: (+) chronic cellulitis and macular rash Physical Exam Physical Exam: PHYSICAL EXAM: General: awake, alert, no apparent distress Head: Normocephalic, atraumatic ENT: PERRL, EOMI, no pharyngeal exudate, mucous membranes moist Neuro: AAO x 3, speech clear and appropriate, strength intact bilaterally 5/5, sensation intact and equal all extremities and dermatomes, no pronator drift Chest: equal rise and fall of the chest, no accessory muscle use, no heaves or thrills, scattered crackles, on room air Cardiac: Regular rate and rhythm, telemetry reviewed- NSR, skin warm dry, cap refill <3 seconds, peripheral pulses +2 no JVD, no murmur, no edema GI: NABS x 4 quadrants, soft, bilateral CVA tenderness as well as suprapubic tenderness with palpation : Spontaneously voiding Extremities: Normal inspection, no peripheral edema or erythema, calfs nontender to palpation Psych: Normal mood and affect Skin: ecchymosis, macular rash on chest, erythema to lower leg Results & Data Results & Data ([facility]) Vital Signs (Past 12 Hours) Vital Signs Temp Pulse Pulse Resp BP BP Pulse Ox 11/17/21 17:21 86 16 89/42 L 98 11/17/21 16:24 37.1 C 90 16 91/60 L 96 Laboratory Results Abnormal lab results 11/17/21 11/17/21 11/17/21 Range/Units 17:09 17:09 17:09 WBC 1.00 L (4.8-10.8) K/uL RBC 2.52 L (4.2-5.4) M/uL Hgb 6.2 L* (12.0-16.0) g/dL Hct 20.9 L* (37-47) % MCH 24.6 L (25-34) pg MCHC 29.7 L (32-36) g/dL RDW Std Deviation 61.8 H (36.4-46.3) fL RDW Coeff of Irasema 21.2 H (11.5-14.5) % Plt Count 20 L* (130-400) K/uL Neut # (Auto) 0.22 L* (1.4-6.5) K/uL Lymph # (Auto) 0.61 L (1.2-3.4) K/uL Absolute Nucleated RBC 0.05 H (0-0) K/uL PT 14.1 H (9.0-12.0) Seconds INR 1.4 H (0.9-1.1) Sodium 132 L (136-145) mmol/L Carbon Dioxide 18 L (21-32) mmol/L BUN 28 H (6-23) mg/dl Creatinine 1.59 H (0.6-1.2) mg/dl Glucose 100 H (70-99(Fasting)) mg/dl Calcium 8.2 L (8.5-10.1) mg/dl SARS-CoV-2 (PCR) (Negative) Crossmatch 11/17/21 11/17/21 Range/Units 17:22 18:32 WBC (4.8-10.8) K/uL RBC (4.2-5.4) M/uL Hgb (12.0-16.0) g/dL Hct (37-47) % MCH (25-34) pg MCHC (32-36) g/dL RDW Std Deviation (36.4-46.3) fL RDW Coeff of Irasema (11.5-14.5) % Plt Count (130-400) K/uL Neut # (Auto) (1.4-6.5) K/uL Lymph # (Auto) (1.2-3.4) K/uL Absolute Nucleated RBC (0-0) K/uL PT (9.0-12.0) Seconds INR (0.9-1.1) Sodium (136-145) mmol/L Carbon Dioxide (21-32) mmol/L BUN (6-23) mg/dl Creatinine (0.6-1.2) mg/dl Glucose (70-99(Fasting)) mg/dl Calcium (8.5-10.1) mg/dl SARS-CoV-2 (PCR) POSITIVE A* (Negative) Crossmatch See Detail Diagnostic Findings Chest X-Ray 11/17/21 16:43 SINGLE VIEW CHEST CLINICAL HISTORY: Sepsis. Lung cancer. FINDINGS: An AP, portable, upright chest radiograph is compared to study dated 10/12/2021 and correlated with chest CT dated 08/01/2021 and PET/CT dated 02/02/2021. The cardiomediastinal silhouette is unremarkable noting atheroscl erotic calcification of the thoracic aorta. Advanced emphysema and chronic interstitial thickening is similar to previous. Parenchyma scarring in the right upper lobe is unchanged. Mild airspace opacities are again seen at the right lung base. No large pleural effusion or pneumothorax is identified. The skeletal structures are osteopenic. Thickening and sclerosis of the right anterior upper ribs is similar to previous. There is chronic posttraumatic deformity of the left proximal humerus. IMPRESSION: 1. Mild airspace opacities are again seen at the right lung base. This is similar to previous and a mild infectious/inflammatory pneumonitis is not excluded. 2. Emphysema with chronic and treatment related changes as above. ACT 112: Negative or not required by law. Electronically signed by: Zohaib Montoya M.D. 11/17/2021 5:04 PM Medications Administered Lactated Ringer's (Lr) 1,000 mls @ 150 mls/hr IV .Q6H40M BIRDIE Stop: 12/17/21 18:29 Last Admin: 11/17/21 19:39 Dose: 150 mls/hr Documented by: [id number] Discontinued Medications Sodium Chloride (Nss 1000ml) 500 mls @ 999 mls/hr IV .Q31M ONE Stop: 11/17/21 17:28 Last Infusion: 11/17/21 18:31 Dose: 0 mls/hr Documented by: [id number] Admin: 11/17/21 17:26 Dose: 999 mls/hr Documented by: [id number] Sodium Chloride (Nss) 500 mls @ 999 mls/hr IV .Q31M ONE Stop: 11/17/21 18:12 Last Infusion: 11/17/21 18:31 Dose: 0 mls/hr Documented by: [id number] Admin: 11/17/21 17:57 Dose: 999 mls/hr Documented by: [id number] Morphine Sulfate (Morphine Sulfate 2 Mg/Ml Carp) 2 mg IV NOW STA Stop: 11/17/21 19:26 Last Admin: 11/17/21 19:40 Dose: 2 mg Documented by: [id number] Home Medications cetirizine 10 mg tablet (Zyrtec) 10 mg PO QAM 07/16/18 [History Confirmed 11/17/21] folic acid 1 mg tablet 1 mg PO QAM 07/16/18 [History Confirmed 11/17/21] magnesium oxide 400 mg PO QAM 07/16/18 [History Confirmed 11/17/21] multivitamin 1 tab PO QAM 07/16/18 [History Confirmed 11/17/21] vitamin B complex (B-Complex) 1 tab PO QAM 07/16/18 [History Confirmed 11/17/21] calcium carbonate 600 mg-vitamin D3 20 mcg (800 unit) tablet (Caltrate with Vitamin D3) 1 tab PO QPM 11/26/18 [History Confirmed 11/17/21] cyanocobalamin (vitamin B-12) 1,000 mcg/mL injection solution 1,000 mcg IM MONTHLY 02/10/19 [History Confirmed 11/17/21] ferrous sulfate 325 mg (65 mg iron) tablet (iron) 325 mg PO QAM 02/10/19 [History Confirmed 11/17/21] vitamin E 400 unit capsule 400 unit PO QAM 08/28/19 [History Confirmed 11/17/21] Medical Marijuana 1 ml SUBLINGUAL UD PRN 06/27/20 [History Confirmed 11/17/21] denosumab 60 mg/mL subcutaneous syringe (Prolia) 60 mg SUBCUT .q 6 months ml 12/17/20 [History Confirmed 11/17/21] acetaminophen 500 mg capsule 500 mg PO QID PRN 01/24/21 [History Confirmed 11/17/21] L.acidophilus-B.lactis-B.longum 15 billion cell capsule 1 cap PO QAM 02/03/21 [History Confirmed 11/17/21] ergocalciferol (vitamin D2) 1,250 mcg (50,000 unit) capsule 50,000 unit PO WEEKLY #12 cap 02/28/21 [Rx Confirmed 11/17/21] albuterol sulfate 90 mcg/actuation aerosol inhaler (ProAir HFA) 2 puff INHALATION QID PRN #8.5 gm 04/22/21 [Rx Confirmed 11/17/21] metoprolol succinate 50 mg tablet,extended release 24 hr 25 mg PO QAM #45 tab 05/23/21 [Rx Confirmed 11/17/21] Auto Titrating CPAP #1 ea 06/01/21 [Rx Confirmed 10/24/21] CPAP Supplies #1 ea 06/01/21 [Rx Confirmed 10/24/21] methocarbamol 750 mg tablet 750 mg PO BID PRN #60 tab 06/21/21 [Rx Confirmed 11/17/21] rizatriptan 10 mg tablet 10 mg PO DAILY PRN #9 tab 06/21/21 [Rx Confirmed 11/17/21] oxybutynin chloride 10 mg tablet,extended release 24 hr 10 mg PO QAM #90 tab 07/14/21 [Rx Confirmed 11/17/21] mirabegron 50 mg tablet,extended release 24 hr (Myrbetriq) 50 mg PO HS #90 tab 07/25/21 [Rx Confirmed 11/17/21] coQ10 (ubiquinol) 200 mg capsule 200 mg PO QAM 08/10/21 [History Confirmed 11/17/21] doxycycline hyclate 100 mg capsule 100 mg PO QDD 08/10/21 [History Confirmed 11/17/21] gabapentin 400 mg capsule (Neurontin) 400 mg PO QAM 30 Days #30 cap 08/11/21 [Rx Confirmed 11/17/21] potassium chloride 20 mEq tablet,extended release 20 meq PO QAM #30 tab 08/11/21 [Rx Confirmed 11/17/21] oxycodone 5 mg tablet 5 mg PO Q4H PRN #20 tab 08/18/21 [Rx Confirmed 11/17/21] budesonide-formoterol HFA 80 mcg-4.5 mcg/actuation aerosol inhaler (Symbicort) 2 puff INHALATION BID #3 inhaler 08/22/21 [Rx Confirmed 11/17/21] clonazepam 1 mg tablet 0.5 mg PO HS #30 tab 08/22/21 [Rx Confirmed 11/17/21] quetiapine 50 mg tablet (Seroquel) 50 mg PO HS #30 tab 08/22/21 [Rx Confirmed 11/17/21] caquncvryx-cegfjanmwlyax-iabztdef 50 mg-325 mg-40 mg tablet (Esgic) 1 tab PO DAILY PRN 30 Days #12 tab 09/27/21 [Rx Confirmed 11/17/21] phenazopyridine 200 mg tablet (Pyridium) 200 mg PO BID PRN #7 tab 10/03/21 [Rx Confirmed 11/17/21] sertraline 50 mg tablet (Zoloft) 50 mg PO HS #30 tab 10/03/21 [Rx Confirmed 11/17/21] cephalexin 500 mg capsule 500 mg PO QDD 10/12/21 [History Confirmed 11/17/21] triamcinolone acetonide 0.025 % topical cream 1 applic TOPICAL BID PRN #80 g 10/17/21 [Rx Confirmed 11/17/21] diphenhydramine HCl 25 mg capsule (Benadryl) 25 mg PO Q6H PRN 10/31/21 [History Confirmed 11/17/21] ciprofloxacin HCl 250 mg tablet (Cipro) 250 mg PO BID #10 tab 11/14/21 [Rx Confirmed 11/17/21] acyclovir 400 mg tablet 400 mg PO .AM & HS 11/17/21 [History Confirmed 11/17/21] topiramate 100 mg tablet (Topamax) 100 mg PO QAM 11/17/21 [History Confirmed 11/17/21] topiramate 200 mg tablet (Topamax) 200 mg PO HS 11/17/21 [History Confirmed 11/17/21] vancomycin 125 mg capsule 125 mg PO 2XWK 11/17/21 [History Confirmed 11/17/21] Active Medications Lactated Ringer's (Lr) 1,000 mls @ 150 mls/hr IV .Q6H40M BIRDIE Stop: 12/17/21 18:29 Last Admin: 11/17/21 19:39 Dose: 150 mls/hr Documented by: Sodium Chloride (Nss) 250 mls @ 15 mls/hr IV .[id number] PRN PRN Reason: For Transfusion Stop: 11/18/21 04:31 ECG Additional Comments: Normal sinus rhythm Low voltage QRS Cannot rule out Anterior infarct , age undetermined Abnormal ECG When compared with ECG of 12-OCT-2021 16:18, Nonspecific T wave abnormality now evident in Anterior leads. Code Status & VTE Plan VTE Prophylaxis Plan VTE Prophylaxis will be ordered: Yes Supervising Physician Co-Signing Physician Notes Patient seen and examined at bedside. Obtained a physical examination and history during face to face encounter with patient, Discussed plan of care with LUCI Shanks. I reviewed above note and agree with it. Patient is admitted with sepsis. Will place on IV antibitoics. PG Care Time/CCT Total # of Minutes Spent Total Time Spent with Patient: Total time spent is greater than 50% in coordination of care (as documented) at patient's floor/unit and/or counseling patient: Coding Level of Care Code 61555 Initial Inpt Care Lvl 3 Diagnoses Sepsis A41.9 COVID-19 U07.1 Myelodysplastic disease C94.6 Obstructive sleep apnea G47.33 Pancytopenia due to antineoplastic chemotherapy D61.810; T45.1X5A S/P ureteral stent placement Z96.0 Chronic kidney disease, stage III (moderate) N18.30 Chronic kidney disease stage 3 subtype: unspecified whether 3a or 3b Neutropenic fever D70.9; R50.81 Hydronephrosis N13.30 Hx of Clostridium difficile infection Z86.19 (1) Chronic kidney disease, stage III (moderate) Chronic kidney disease stage 3 subtype: unspecified whether 3a or 3b Qualified Code(s): N18.30 - Chronic kidney disease, stage 3 unspecified
[2021-11-17 20:28] LABS: Appearance Urine Clear (Clear); Color Urine Orange
[2021-11-17 20:29] LABS: Specific Gravity Urine 1.015 (1.000-1.030)
[2021-11-17] MEDS ORDERED: RASPBERRY SYRUP 5 ML UDP PO STA (21:04)
[2021-11-17] MEDS ORDERED: VANCOMYCIN HCL 125 MG/2.5ML SOLN PO STA (21:04)
[2021-11-17] MEDS ORDERED: RIZATRIPTAN BENZOATE 10 MG TAB PO PRN (21:21)
[2021-11-17] MEDS ORDERED: BUDESONIDE/FORMOTEROL FUMARATE 80/4.5 60 PUFFS/INHALER INH SCH (21:21)
[2021-11-17] MEDS ORDERED: MEROPENEM CONSULT ACTIVE PRN ×2 (21:21)
[2021-11-17] MEDS ORDERED: ALBUTEROL HFA 8 GM INHALER INH PRN (21:41)
[2021-11-17] MEDS: ACETAMINOPHEN 500 MG TAB PO PRN (21:48)
[2021-11-17] MEDS ORDERED: MEROPENEM 500 MG in SYRINGE 0 ML IV SCH (22:00)
[2021-11-17] MEDS: TOPIRAMATE 100 MG TAB PO SCH (22:54)
[2021-11-17] MEDS: ACYCLOVIR 400 MG TAB PO SCH (22:54)
[2021-11-17] MEDS: MIRABEGRON ER 25 MG TAB PO SCH (22:55)
[2021-11-17] MEDS: SERTRALINE HCL 50 MG TABLET PO SCH (22:56)
[2021-11-18] MEDS ORDERED: ONDANSETRON INJ 2 MG/ML 2 ML VIAL IV PRN (01:22)
[2021-11-18] MEDS: ACETAMINOPHEN 500 MG TAB PO PRN ×2 (06:43→14:44)
[2021-11-18 07:21] LABS: INR 1.7 (0.9-1.1); Prothrombin Time 16.2 Seconds (9.0-12.0)
[2021-11-18 07:28] LABS: Albumin Level 3.2 gm/dl (3.4-5.0); BUN Creatinine Ratio 20.7 (10-20); Bilirubin Direct 0.2 mg/dl (0-0.2); Bilirubin,Total 0.7 mg/dl (0.2-1.0); C Reactive Protein 9.68 mg/dl (0-0.5); Calcium 7.8 mg/dl (8.5-10.1); Creatinine Clr Calc Pharmacy 28.8 ml/min; Est GFR (African American) 43.4 ml/min; Est GFR (Non-African American) 37.4 ml/min; Magnesium 1.7 mg/dl (1.7-2.4); Potassium 4.2 mmol/L (3.5-5.1); Total Protein 5.6 gm/dl (6.0-8.3)
[2021-11-18 07:54] LABS: Anisocytosis Present; Giant Platelets 3+; Platelet Estimate SIGNIFIC DECREASED (Normal); Poikilocytosis Present; Schistocytes 1+
[2021-11-18 07:55] LABS: ANC (manual) 0.55 K/uL (1.4-6.5); Basophils # (manual) 0.03 K/uL (0-0.2); Basophils % (manual) 2.7 %; Blast # (manual) 0.06 K/uL (0-0); Blast Cells % (manual) 5.3 %; Hematocrit (blood only) 21.9 % (37-47); Hemoglobin 6.6 g/dL (12.0-16.0); Mean Corpuscular Hemoglobin 24.5 pg (25-34); Mean Corpuscular Hgb Conc 30.1 g/dL (32-36); Mean Corpuscular Volume 81.4 fL (80-100); Monocytes # (manual) 0.08 K/uL (0.11-0.59); Myelocytes # (manual) 0.04 K/uL (0-0); Neutrophils # (manual) 0.55 K/uL (1.4-6.5); Nucleated RBC # (auto) 0.14 K/uL (0-0); Nucleated RBC % (auto) 12.8 %; Platelet Count 20 K/uL (130-400); RDW Coefficient of Variation 20.8 % (11.5-14.5); RDW Standard Deviation 59.8 fL (36.4-46.3); Red Blood Count 2.69 M/uL (4.2-5.4); White Blood Count 1.06 K/uL (4.8-10.8)
--- NOTE | 2021-11-18 08:16 | Hospitalist Progress Note ---
Date of Service November 18, 2021 Assessment & Plan (1) Sepsis: Plan: Technically meets sepsis criteria with fever, hypotension, neutropenia, and organ dysfunction. DDX: Sepsis from bacterial infection (Urine or other) vs. COVID infection - Blood cultures drawn x2 prior to abx - suspected source is urine- await culture results- - She was adequately resuscitated in the EMD with 1L of crystalloid and 1unit of PRBC - Continue meropenem 500mg IV q12- renally dosed - Continue acyclovir for her suppressive therapy - Hold home doxy See hospital d/c summary or Urology note from 10/13/21 Urology consult do not feel there is any role for urological surgery interventions. She has well positioned stents with expected levels of hydronephrosis. These stents were exchanged 2 weeks ago, so there is no indication for stent exchange. Her current hospitalization is due to infectious issues - which are admittedly challenging. I defer to ID for management of her infections. If ID feels it is necessary to irrigate her collecting system (ureters) with antibiotic or antifungal medications, she should be transferred for percutaneous nephrostomy tube placement. If that is not deemed necessary, then continue treatment of her infections via IV/PO means and continue b/l stenting. (2) COVID-19: Plan: COVID 19 patient is - Difficult to ascertain day of illness- although she reports fevers worsening o sheron past 2-3 days - CXR no opacification and no respiratory symptoms - Not candidate at this time for remdesivir with her GFR- may change if this improves with her renal function - CRP pending - Consider Haematology consultation for treatment recs as she is also receiving chemo - SCDS for VTE - Follow clinical course as above First symptoms: ~11/15/21 First + test: 11/17/21 Vaccinated: vaccinated and boosted Admission date: 11/17/21 Admission O2 requirement: RA Admission CRP:9.86 Dexamethasone course started: N/A Remdesivir started: N/A Remdesivir contraindication: Tocilizumab given/baricitinib started:N/A Tocilizumab/baricitinib contraindication: Antibiotics: Meropenem, 1 dose of oral vancomycin (3) Myelodysplastic disease: Plan: As per HPI - with her treatments this has resulted in continued fevers and pancytopenia as noted - Difficult to ascertain if COVID is effecting her WBC count as well - She has received Epogen on 11/15 she reports - She has also received Neupogen 480 mcg 11/18/21 (4) Obstructive sleep apnea: Plan: Continue CPAP at night or PRN if hypoxia ensues secondary to sepsis/COVID - CPAP at home AutoPap 5-15 or CPAP of 10 if unable to do AutoPap (5) Pancytopenia due to antineoplastic chemotherapy: Plan: Is neutropenic this can be neutropenic fever as being treated for marginal zone lymphoma, history of squamous cell carcinoma right upper lobe and also resultant myelodysplasia. - no urgent need at this time - Her WBC count is 1.0 her ANC is 0.23 - Platelet count remains low @ 20- replace if further decrease - SCD for VTE regarding her platelet counts significant anemia, due to blood bank shortage need to be conservative, now is tachycardic due to fever, if remains so may consider transfusion of 1 U prbc (6) S/P ureteral stent placement: Plan: Placed for hydronephrosis 08/11 with exchange done 09/26/21 - As above- await UA with culture previously has had both Klebsiella pneumoniae ESBL, and Rachelle glabrata (7) Chronic kidney disease, stage III (moderate): Plan: As above- follow post resuscitation - renally dose medications - avoid further nephrotoxic medications - AURORA (8) Neutropenic fever: Plan: As above - Continue with Meropenem (9) Hydronephrosis: Plan: As above (10) Hx of Clostridium difficile infection: Plan: No diarrhea - has been on prophy Vancomycin in the past while on ABX -Given pancytopenia previous history of C. difficile chronic suppressive therapy will continue oral vancomycin (11) DVT prophylaxis: Plan: Chemoprophylaxis is contraindicated with thrombocytopenia will use SCDs cautiously and assess for bruising (12) Coagulopathy: Plan: Patient's INR is going up likely a result of nutritional deficiencies, will give vitamin K. Check INR Ultrasound liver 10/12/2021 Heterogeneous echogenicity of the liver characteristic of hepatocellular disease. Mild splenomegaly. Compared to the previous CT, there are bilateral ureteral stents in place. However, there is bilateral hydronephrosis demonstrated. Cholelithiasis with mild pericholecystic edema and distention of the gallbladder. Early cholecystitis cannot be completely excluded. Admission and Anticipated Discharge Date Admission Date: November 17, 2021 Subjective pt is lethargic but awakens and is very tired, no new shortness of breath or cough Review of Systems Review of Systems: Mild to moderate distress and fatigue no headache, no visual changes no speech or swallowing issues no chest pain, pressure or palpitations no shortness of breath, cough or wheezes supropubic abdominal pain, no nausea or vomiting dysuria, hematuria or frequency no focal joint pain or swelling no back pain, CVA tenderness or radicular pain no bruising, bleeding or rashes no focal signs of weakness or numbness or altered sensation no complaints of anxiety or depression.. Physical Exam Physical Exam: The patient appeared underweight and chronically ill Vital signs as documented. Head exam is normocephalic atraumatic Neck is without JVD, thyromegaly, or carotid bruits. Lungs are clear diminished at the bases Cardiac exam, Rhythm is regular.. No murmurs, rubs or gallops. Abdominal exam reveals normal bowel sounds, soft non tender, no masses Extremities are nonedematous and both pedal pulses are present Neurologic exam is alert and oriented, no focal loss of strength or sensation Skin is without bruises or rashes Psychologically is without concerns for anxiety or depression.. Results & Data Results & Data ([facility]) Vital Signs (Past 12 Hours) Vital Signs Temp Pulse Pulse Pulse Resp BP Pulse Ox 11/18/21 07:25 116 H 11/18/21 06:41 102.4 F H 120 H 20 111/56 L 93 11/18/21 03:00 100.4 F H 132 H 20 114/44 L 93 11/18/21 00:26 99 H 16 95 11/17/21 23:46 103.1 F H 99 H 20 118/59 L 95 11/17/21 23:21 100.0 F H 11/17/21 23:07 100.6 F H 97 H 20 103/58 L 94 11/17/21 22:36 100 H 11/17/21 21:32 103.1 F H 99 H 20 118/59 L 95 11/17/21 21:21 Pulse Ox 11/18/21 07:25 11/18/21 06:41 11/18/21 03:00 11/18/21 00:26 11/17/21 23:46 11/17/21 23:21 11/17/21 23:07 11/17/21 22:36 11/17/21 21:32 11/17/21 21:21 95 PG Care Time/CCT Total # of Minutes Spent Total Time Spent with Patient: Total time spent is greater than 50% in coordination of care (as documented) at patient's floor/unit and/or counseling patient: Coding Level of Care Code 90207 Subseq Hosp Care Lvl 3 Diagnoses Sepsis A41.9 COVID-19 U07.1 Myelodysplastic disease C94.6 Obstructive sleep apnea G47.33 Pancytopenia due to antineoplastic chemotherapy D61.810; T45.1X5A S/P ureteral stent placement Z96.0 Chronic kidney disease, stage III (moderate) N18.30 Chronic kidney disease stage 3 subtype: unspecified whether 3a or 3b Neutropenic fever D70.9; R50.81 Hydronephrosis N13.30 Hx of Clostridium difficile infection Z86.19 DVT prophylaxis Z29.9 Coagulopathy D68.9 (1) Chronic kidney disease, stage III (moderate) Chronic kidney disease stage 3 subtype: unspecified whether 3a or 3b Qualified Code(s): N18.30 - Chronic kidney disease, stage 3 unspecified
[2021-11-18] MEDS ORDERED: PHYTONADIONE 2.5 MG in SODIUM CHLORIDE 0.9% 50 ML IV ONE (08:30)
[2021-11-18] MEDS: TOPIRAMATE 100 MG TAB PO SCH ×2 (08:51→22:40)
[2021-11-18] MEDS: GABAPENTIN 400 MG CAP PO SCH (08:52)
[2021-11-18] MEDS: OXYBUTYNIN CHLORIDE XL 5 MG TABCR PO SCH (08:52)
[2021-11-18] MEDS: FOLIC ACID 1 MG TAB PO SCH (08:52)
[2021-11-18] MEDS: CETIRIZINE HCL 10 MG TABLET PO SCH (08:52)
[2021-11-18] MEDS: ACYCLOVIR 400 MG TAB PO SCH ×2 (08:52→22:40)
[2021-11-18] MEDS: FERROUS SULFATE 325 MG TAB PO SCH (08:52)
[2021-11-18] MEDS: MEROPENEM 500 MG in SYRINGE 0 ML IV SCH ×2 (08:53→18:28)
[2021-11-18] MEDS: oxyCODONE HCL IR 5 MG TAB (IMMEDIATE RELEASE) PO PRN ×2 (08:56→20:05)
[2021-11-18] MEDS: FLUTICASONE/VILANTEROL 100/25MCG 14 PUFFS/INHALER INH SCH (08:58)
--- NOTE | 2021-11-18 13:58 | Electrocardiogram Report ---
Test Reason : Blood Pressure : / mmHG Vent. Rate : 085 BPM Atrial Rate : 085 BPM P-R Int : 154 ms QRS Dur : 068 ms QT Int : 384 ms P-R-T Axes : 076 036 063 degrees QTc Int : 456 ms Normal sinus rhythm Low voltage QRS Poor R wave progression, consider anterior [place] vs. lead placement vs. LVH Abnormal ECG When compared with ECG of 12-OCT-2021 16:18, Nonspecific T wave abnormality now evident in Anterior leads Confirmed by Reynold Garcia ([id number]) on 11/18/2021 1:58:33 PM Referred By: REFERRED SELF Confirmed By:Agus Garcia
[2021-11-18] MEDS ORDERED: SODIUM CHLORIDE 0.9% 250 ML IV PRN (14:22)
[2021-11-18] MEDS ORDERED: diphenhydrAMINE Capsule 25 MG CAP PO ONE (14:46)
[2021-11-18] MEDS ORDERED: FILGRASTIM 480 MCG/1.6 ML VIAL SC ONE (15:30)
[2021-11-18] MEDS: MIRABEGRON ER 25 MG TAB PO SCH (22:40)
[2021-11-18] MEDS: SERTRALINE HCL 50 MG TABLET PO SCH (22:41)
[2021-11-19] MEDS: MEROPENEM 500 MG in SYRINGE 0 ML IV SCH ×3 (02:00→17:45)
[2021-11-19] MEDS: oxyCODONE HCL IR 5 MG TAB (IMMEDIATE RELEASE) PO PRN ×4 (04:59→22:44)
[2021-11-19 06:59] LABS: INR 1.2 (0.9-1.1); Prothrombin Time 11.7 Seconds (9.0-12.0)
[2021-11-19 07:14] LABS: Hematocrit (blood only) 22.6 % (37-47); Mean Corpuscular Hemoglobin 24.9 pg (25-34); Mean Corpuscular Volume 80.4 fL (80-100); Nucleated RBC # (auto) 0.16 K/uL (0-0); Nucleated RBC % (auto) 10.7 %; Platelet Count 21 K/uL (130-400); RDW Coefficient of Variation 19.4 % (11.5-14.5); RDW Standard Deviation 54.7 fL (36.4-46.3); Red Blood Count 2.81 M/uL (4.2-5.4); White Blood Count 1.48 K/uL (4.8-10.8)
[2021-11-19 07:15] LABS: Anisocytosis Present; Calcium 7.8 mg/dl (8.5-10.1); Creatinine Clr Calc Pharmacy 39.8 ml/min; Est GFR (African American) 64.8 ml/min; Est GFR (Non-African American) 55.9 ml/min; Giant Platelets 3+; Magnesium 1.7 mg/dl (1.7-2.4); Platelet Estimate SIGNIFIC DECREASED (Normal); Poikilocytosis Present; Potassium 3.5 mmol/L (3.5-5.1); Tear Drop Cells 1+
[2021-11-19 07:31] LABS: ALC (manual) 0.44 K/uL (1.2-3.4); ANC (manual) 0.72 K/uL (1.4-6.5); Basophils # (manual) 0.02 K/uL (0-0.2); Basophils % (manual) 1.4 %; Blast # (manual) 0.12 K/uL (0-0); Blast Cells % (manual) 8.1 %; Lymphocytes # (manual) 0.44 K/uL (1.2-3.4); Lymphocytes % (manual) 29.7 %; Monocytes # (manual) 0.16 K/uL (0.11-0.59); Monocytes % (manual) 10.8 %; Myelocytes # (manual) 0.02 K/uL (0-0); Myelocytes % (manual) 1.4 %; Neutrophils # (manual) 0.72 K/uL (1.4-6.5); Neutrophils % (manual) 48.6 %
[2021-11-19] MEDS: ACYCLOVIR 400 MG TAB PO SCH ×2 (08:54→22:44)
[2021-11-19] MEDS: TOPIRAMATE 100 MG TAB PO SCH ×2 (08:55→22:45)
[2021-11-19] MEDS: GABAPENTIN 400 MG CAP PO SCH (08:55)
[2021-11-19] MEDS: FLUTICASONE/VILANTEROL 100/25MCG 14 PUFFS/INHALER INH SCH (08:55)
[2021-11-19] MEDS: CETIRIZINE HCL 10 MG TABLET PO SCH (08:55)
[2021-11-19] MEDS: OXYBUTYNIN CHLORIDE XL 5 MG TABCR PO SCH (08:55)
[2021-11-19] MEDS: FERROUS SULFATE 325 MG TAB PO SCH (08:55)
[2021-11-19] MEDS: FOLIC ACID 1 MG TAB PO SCH (08:55)
[2021-11-19] MEDS: SACCHAROMYCES BOULARDII 250 MG CAP PO SCH (12:19)
--- NOTE | 2021-11-19 12:54 | Hospitalist Progress Note ---
Date of Service November 19, 2021 Assessment & Plan (1) Sepsis: Plan: Technically meets sepsis criteria with fever, hypotension, neutropenia, and organ dysfunction. has chronic fever with her MDS no growth on blood and urine culture thus far continue Meropenem for now fever, sepsis could just be due to COVID check CBC in AM feeling better, consider discharge to home if still not hypoxic (2) COVID-19: Plan: likely had it for about a week, got it from family no hypoxemia, no infiltrates on CXR has a fever but this is chronic issue with MDS no role for dexamethasone, Remdesivir monitor oxygen levels (3) Myelodysplastic disease: Plan: As per HPI - with her treatments this has resulted in continued fevers and pancytopenia as noted - Difficult to ascertain if COVID is effecting her WBC count as well - She has received Epogen on 11/15 she reports - She has also received Neupogen 480 mcg 11/18/21 follow CBC in AM (4) Obstructive sleep apnea: Plan: Continue CPAP at night or PRN if hypoxia ensues secondary to sepsis/COVID - CPAP at home AutoPap 5-15 or CPAP of 10 if unable to do AutoPap (5) Pancytopenia due to antineoplastic chemotherapy: Plan: Is neutropenic this can be neutropenic fever as being treated for marginal zone lymphoma, history of squamous cell carcinoma right upper lobe and also resultant myelodysplasia. - no urgent need at this time (6) S/P ureteral stent placement: Plan: Placed for hydronephrosis 08/11 with exchange done 09/26/21 - As above- await UA with culture previously has had both Klebsiella pneumoniae ESBL, and Rachelle glabrata (7) Chronic kidney disease, stage III (moderate): Plan: As above- follow post resuscitation - renally dose medications - avoid further nephrotoxic medications - AURORA (8) Neutropenic fever: Plan: As above - Continue with Meropenem (9) Hydronephrosis: Plan: As above (10) Hx of Clostridium difficile infection: Plan: No diarrhea - has been on prophy Vancomycin in the past while on ABX -Given pancytopenia previous history of C. difficile chronic suppressive therapy will continue oral vancomycin (11) DVT prophylaxis: Plan: Chemoprophylaxis is contraindicated with thrombocytopenia will use SCDs cautiously and assess for bruising (12) Coagulopathy: Plan: INR elevated due to nutritional deficits Plan: CBC in AM consider discharge if stable and not hypoxic Admission and Anticipated Discharge Date Admission Date: November 17, 2021 Subjective patient feeling a little better, still with low grade temp but this is normal WBC, Hb and plts all low but again, normal no growth on blood or urine cultures at this point she says she has likely had COVID for a week, got it from family no hypoxemia eating well, strength is intact as she is walking to bathroom and back Review of Systems Review of Systems: All systems reviewed & are unremarkable except as noted in Subjective Physical Exam Physical Exam: General: well developed, thin female, no acute distress, comfortable, appears older than age Neck: supple, trachea midline, normal thyroid Lungs: clear to auscultation bilaterally, normal respiratory effort, no accessory muscle use, no distress Heart: regular S1 and S2, no murmur, peripheral pulses normal, capillary refill normal, no edema Abdomen: soft, NT, ND, + BS, no hepatomegaly, normal to percussion Extremities: normal in appearance, no cyanosis, no petechiae, strength is 5/5 bilaterally Neuro: awake, cooperative, moves all extremities, no focal motor deficits, CN II-XII intact, sensation in extremities intact, normal speech Skin: warm, dry, no rash, normal turgor Psych: Awake, alert oriented x 3, euthymic affect Results & Data Results & Data ([facility]) Vital Signs (Past 12 Hours) Vital Signs Temp Pulse Resp BP Pulse Ox 11/19/21 11:39 37.7 C H 101 H 20 111/52 L 92 11/19/21 07:46 36.9 C 104 H 20 102/61 92 11/19/21 05:00 36.8 C 11/19/21 03:39 37.8 C H 103 H 20 121/58 L 93 Laboratory Results Laboratory Results - last 24 hr 11/17/21 11/19/21 11/19/21 18:32 04:45 05:57 WBC 1.48 L RBC 2.81 L Hgb 7.0 L Hct 22.6 L MCV 80.4 MCH 24.9 L MCHC 31.0 L RDW Std Deviation 54.7 H RDW Coeff of Irasema 19.4 H Plt Count 21 L* Absolute Nucleated RBC 0.16 H Nucleated RBC % (auto) 10.7 Neutrophils % (Manual) 48.6 Lymphocytes % (Manual) 29.7 Monocytes % (Manual) 10.8 Basophils % (Manual) 1.4 Myelocytes % (Man) 1.4 Blast Cells % (Manual) 8.1 Neutrophils # (Manual) 0.72 L Total Absolute Neuts 0.72 L* Lymphocytes # (Manual) 0.44 L Total Abs Lymphocytes 0.44 L Monocytes # (Manual) 0.16 Basophils # (Manual) 0.02 Myelocytes # (Manual) 0.02 H Blast Cells # (Man) 0.12 H Hyposegmented Neuts 1+ Platelet Estimate SIGNIFIC DECREASED Giant Platelets 3+ Poikilocytosis Present Anisocytosis Present Tear Drop Cells 1+ PT INR Sodium Potassium Chloride Carbon Dioxide Anion Gap BUN Creatinine Est Cr Clr Drug Dosing Est GFR ( Amer) Est GFR (Non-Af Amer) BUN/Creatinine Ratio Glucose Calcium Magnesium Stl C. diff Tox B Gene Cancelled Antibody ID Referred 11/19/21 11/19/21 05:57 05:57 WBC RBC Hgb Hct MCV MCH MCHC RDW Std Deviation RDW Coeff of Irasema Plt Count Absolute Nucleated RBC Nucleated RBC % (auto) Neutrophils % (Manual) Lymphocytes % (Manual) Monocytes % (Manual) Basophils % (Manual) Myelocytes % (Man) Blast Cells % (Manual) Neutrophils # (Manual) Total Absolute Neuts Lymphocytes # (Manual) Total Abs Lymphocytes Monocytes # (Manual) Basophils # (Manual) Myelocytes # (Manual) Blast Cells # (Man) Hyposegmented Neuts Platelet Estimate Giant Platelets Poikilocytosis Anisocytosis Tear Drop Cells PT 11.7 INR 1.2 H Sodium 136 Potassium 3.5 Chloride 110 H Carbon Dioxide 18 L Anion Gap 8 BUN 26 H Creatinine 1.04 D Est Cr Clr Drug Dosing 39.8 Est GFR ( Amer) 64.8 Est GFR (Non-Af Amer) 55.9 BUN/Creatinine Ratio 25.0 H Glucose 119 H Calcium 7.8 L Magnesium 1.7 Stl C. diff Tox B Gene Antibody ID Referred Medications Administered Current Inpatient Medications Acetaminophen (Acetaminophen 500 Mg Tab) 500 mg PO QID PRN PRN Reason: Pain Stop: 12/17/21 21:39 Last Admin: 11/19/21 16:35 Dose: 500 mg Documented by: Acyclovir (Acyclovir 400 Mg Tab) 400 mg PO BID BIRDIE Stop: 12/17/21 21:20 Last Admin: 11/19/21 08:54 Dose: 400 mg Documented by: Albuterol (Albuterol Hfa 8 Gm Inhaler) 2 puffs INH QID PRN PRN Reason: Wheezing Stop: 12/17/21 21:40 Cetirizine HCl (Cetirizine Hcl 10 Mg Tablet) 10 mg PO QAM [facility] Stop: 12/18/21 08:59 Last Admin: 11/19/21 08:55 Dose: 10 mg Documented by: Ferrous Sulfate (Ferrous Sulfate 325 Mg Tab) 325 mg PO QAM [facility] Stop: 12/18/21 08:59 Last Admin: 11/19/21 08:55 Dose: 325 mg Documented by: Fluticasone/Vilanterol (Fluticasone/Vilanterol 100/25mcg 14 Puffs/Inhaler) 1 puffs INH DAILY [facility] Stop: 12/18/21 08:59 Last Admin: 11/19/21 08:55 Dose: 1 puffs Documented by: Folic Acid (Folic Acid 1 Mg Tab) 1 mg PO QAM [facility] Stop: 12/18/21 08:59 Last Admin: 11/19/21 08:55 Dose: 1 mg Documented by: Gabapentin (Gabapentin 400 Mg Cap) 400 mg PO QAM [facility] Stop: 12/18/21 08:59 Last Admin: 11/19/21 08:55 Dose: 400 mg Documented by: Meropenem 500 mg/ Syringe 10 mls @ 2 mls/min IV Q8H [facility]; Protocol Stop: 11/28/21 09:59 Last Admin: 11/19/21 17:45 Dose: 2 mls/min Documented by: Mirabegron (Mirabegron Er 25 Mg Tab) 50 mg PO HS [facility] Stop: 12/17/21 21:20 Last Admin: 11/18/21 22:40 Dose: 50 mg Documented by: Miscellaneous Information (Meropenem Consult Active) 1 ea N/A UD PRN PRN Reason: Consult Stop: 12/17/21 21:20 Ondansetron HCl (Ondansetron Inj 2 Mg/Ml 2 Ml Vial) 4 mg IV Q6H PRN PRN Reason: Nausea Stop: 12/18/21 01:21 Last Admin: 11/18/21 01:32 Dose: 4 mg Documented by: Oxybutynin Chloride (Oxybutynin Chloride Xl 5 Mg Tabcr) 10 mg PO QAM [facility] Stop: 12/18/21 08:59 Last Admin: 11/19/21 08:55 Dose: 10 mg Documented by: Oxycodone HCl (Oxycodone Hcl Ir 5 Mg Tab (Immediate Release)) 5 mg PO Q4H PRN PRN Reason: pain Stop: 12/01/21 21:20 Last Admin: 11/19/21 16:33 Dose: 5 mg Documented by: Raspberry (Raspberry Syrup 5 Ml Udp) 5 ml PO MoFr [facility] Stop: 12/01/21 08:29 Rizatriptan Benzoate (Rizatriptan Benzoate 10 Mg Tab) 10 mg PO DAILY PRN PRN Reason: Migraine Headache Stop: 12/17/21 21:20 Saccharomyces Boulardii (Saccharomyces Boulardii 250 Mg Cap) 250 mg PO DAILY [facility] Stop: 12/19/21 10:59 Last Admin: 11/19/21 12:19 Dose: 250 mg Documented by: Sertraline HCl (Sertraline Hcl 50 Mg Tablet) 50 mg PO [facility] Stop: 12/17/21 21:20 Last Admin: 11/18/21 22:41 Dose: 50 mg Documented by: Topiramate (Topiramate 100 Mg Tab) 100 mg PO [facility] Stop: 12/18/21 08:59 Last Admin: 11/19/21 08:55 Dose: 100 mg Documented by: Topiramate (Topiramate 100 Mg Tab) 200 mg PO [facility] Stop: 12/17/21 21:20 Last Admin: 11/18/21 22:40 Dose: 200 mg Documented by: Vancomycin HCl (Vancomycin Hcl 125 Mg/2.5ml Soln) 125 mg PO MoFr [facility] Stop: 12/01/21 08:29 PG Care Time/CCT Total # of Minutes Spent Total Time Spent with Patient: Total time spent is greater than 50% in coordination of care (as documented) at patient's floor/unit and/or counseling patient: Coding Level of Care Code 68434 Subseq Hosp Care Lvl 2 Diagnoses Sepsis A41.9 COVID-19 U07.1 Myelodysplastic disease C94.6 Obstructive sleep apnea G47.33 Pancytopenia due to antineoplastic chemotherapy D61.810; T45.1X5A S/P ureteral stent placement Z96.0 Chronic kidney disease, stage III (moderate) N18.30 Chronic kidney disease stage 3 subtype: unspecified whether 3a or 3b Neutropenic fever D70.9; R50.81 Hydronephrosis N13.30 Hx of Clostridium difficile infection Z86.19 DVT prophylaxis Z29.9 Coagulopathy D68.9 (1) Chronic kidney disease, stage III (moderate) Chronic kidney disease stage 3 subtype: unspecified whether 3a or 3b Qualified Code(s): N18.30 - Chronic kidney disease, stage 3 unspecified
[2021-11-19] MEDS: ACETAMINOPHEN 500 MG TAB PO PRN (16:35)
[2021-11-19] MEDS: SERTRALINE HCL 50 MG TABLET PO SCH (22:45)
[2021-11-19] MEDS: MIRABEGRON ER 25 MG TAB PO SCH (22:45)
[2021-11-20] MEDS: MEROPENEM 500 MG in SYRINGE 0 ML IV SCH ×3 (01:54→17:15)
[2021-11-20] MEDS: oxyCODONE HCL IR 5 MG TAB (IMMEDIATE RELEASE) PO PRN ×3 (06:08→15:17)
[2021-11-20] MEDS: SACCHAROMYCES BOULARDII 250 MG CAP PO SCH (07:58)
[2021-11-20] MEDS: ACYCLOVIR 400 MG TAB PO SCH ×2 (07:58→21:55)
[2021-11-20] MEDS: GABAPENTIN 400 MG CAP PO SCH (07:58)
[2021-11-20] MEDS: TOPIRAMATE 100 MG TAB PO SCH ×2 (07:58→21:55)
[2021-11-20] MEDS: FERROUS SULFATE 325 MG TAB PO SCH (07:58)
[2021-11-20] MEDS: FOLIC ACID 1 MG TAB PO SCH (07:58)
[2021-11-20] MEDS: CETIRIZINE HCL 10 MG TABLET PO SCH (07:58)
[2021-11-20] MEDS: OXYBUTYNIN CHLORIDE XL 5 MG TABCR PO SCH (07:58)
[2021-11-20] MEDS: FLUTICASONE/VILANTEROL 100/25MCG 14 PUFFS/INHALER INH SCH (07:59)
[2021-11-20 08:34] LABS: INR 1.2 (0.9-1.1); Prothrombin Time 11.9 Seconds (9.0-12.0)
[2021-11-20 09:14] LABS: BUN Creatinine Ratio 23.5 (10-20); Calcium 7.9 mg/dl (8.5-10.1); Creatinine Clr Calc Pharmacy 48.2 ml/min; Est GFR (African American) 82.8 ml/min; Est GFR (Non-African American) 71.4 ml/min; Magnesium 1.7 mg/dl (1.7-2.4); Potassium 3.4 mmol/L (3.5-5.1)
[2021-11-20 09:22] LABS: Mean Corpuscular Hemoglobin 25.3 pg (25-34); Mean Corpuscular Hgb Conc 31.8 g/dL (32-36); Mean Corpuscular Volume 79.4 fL (80-100); Platelet Count 33 K/uL (130-400); RDW Coefficient of Variation 19.6 % (11.5-14.5); RDW Standard Deviation 55.5 fL (36.4-46.3); Red Blood Count 2.77 M/uL (4.2-5.4); White Blood Count 1.22 K/uL (4.8-10.8)
[2021-11-20 09:35] LABS: ANC (manual) 0.56 K/uL (1.4-6.5); Anisocytosis Present; Blast # (manual) 0.08 K/uL (0-0); Blast Cells % (manual) 6.7 %; Lymphocytes % (manual) 40.8 %; Monocytes # (manual) 0.08 K/uL (0.11-0.59); Monocytes % (manual) 6.7 %; Neutrophils # (manual) 0.56 K/uL (1.4-6.5); Neutrophils % (manual) 45.8 %; Schistocytes 1+; Spherocytes Occasional
[2021-11-20] MEDS ORDERED: FILGRASTIM 480 MCG/1.6 ML VIAL SC ONE (13:00)
--- NOTE | 2021-11-20 20:59 | Hospitalist Progress Note ---
Date of Service November 20, 2021 Assessment & Plan (1) Sepsis: Plan: Technically met sepsis criteria on admission with fever, hypotension, neutropenia, and organ dysfunction. has chronic fever with her MDS no growth on blood and urine culture thus far, stop Meropenem after today fever, sepsis could just be due to COVID neutropenic today, give another dose of Neupogen (2) COVID-19: Plan: likely had it for about a week, got it from family no hypoxemia, no infiltrates on CXR has a fever but this is chronic issue with MDS no role for dexamethasone, Remdesivir monitor oxygen levels which continue to be stable (3) Myelodysplastic disease: Plan: As per HPI - with her treatments this has resulted in continued fevers and pancytopenia as noted - Difficult to ascertain if COVID is effecting her WBC count as well - She has received Epogen on 11/15 she reports - She has also received Neupogen 480 mcg 11/18/21 ANC is 0.5 this morning, give another dose of Neupogen follow CBC in AM (4) Obstructive sleep apnea: Plan: Continue CPAP at night or PRN if hypoxia ensues secondary to sepsis/COVID - CPAP at home AutoPap 5-15 or CPAP of 10 if unable to do AutoPap (5) Pancytopenia due to antineoplastic chemotherapy: Plan: Is neutropenic this can be neutropenic fever as being treated for marginal zone lymphoma, history of squamous cell carcinoma right upper lobe and also resultant myelodysplasia. give Neupogen 480mcg this morning Hb is 7.0, repeat tomorrow to assess for PRBC transfusion (6) S/P ureteral stent placement: Plan: Placed for hydronephrosis 08/11 with exchange done 09/26/21 previously has had both Klebsiella pneumoniae ESBL, and Rachelle glabrata no growth on urine culture this admission, stop Meropenem (7) Chronic kidney disease, stage III (moderate): Plan: As above- follow post resuscitation - renally dose medications - avoid further nephrotoxic medications - [facility] (8) Neutropenic fever: Plan: stop Meropenem, no growth on cultures (9) Hydronephrosis: Plan: As above (10) Hx of Clostridium difficile infection: Plan: No diarrhea - has been on prophy Vancomycin in the past while on ABX -Given pancytopenia previous history of C. difficile chronic suppressive therapy will continue oral vancomycin (11) DVT prophylaxis: Plan: Chemoprophylaxis is contraindicated with thrombocytopenia will use SCDs cautiously and assess for bruising (12) Coagulopathy: Plan: INR elevated due to nutritional deficits down to 1.2 after Vitamin K Plan: CBC in AM consider discharge if stable and not hypoxic Admission and Anticipated Discharge Date Admission Date: November 17, 2021 Subjective patient doing well, maybe a little better still with neutropenia and anemia, Hb is 7.0 but no signs of blood loss, pl atelets are low but at baseline she is eating a little bit, she says her appetite is poor at home we discussed checking labs in the morning and trying to go home, she agreed Review of Systems Review of Systems: All systems reviewed & are unremarkable except as noted in Subjective Constitutional: + fatigue and + weakness; no fever Respiratory: no cough and no dyspnea Cardiovascular: no chest pain and no edema Gastrointestinal: + early satiety; no abdominal pain, no nausea, no vomiting, no constipation and no diarrhea/loose stools Physical Exam Physical Exam: General: well developed, thin female, no acute distress, comfortable, appears older than age Neck: supple, trachea midline, normal thyroid Lungs: clear to auscultation bilaterally, normal respiratory effort, no accessory muscle use, no distress Heart: regular S1 and S2, no murmur, peripheral pulses normal, capillary refill normal, no edema Abdomen: soft, NT, ND, + BS, no hepatomegaly, normal to percussion Extremities: normal in appearance, no cyanosis, no petechiae, strength is 5/5 bilaterally Neuro: awake, cooperative, moves all extremities, no focal motor deficits, CN II-XII intact, sensation in extremities intact, normal speech Skin: warm, dry, no rash, normal turgor Psych: Awake, alert oriented x 3, euthymic affect Results & Data Results & Data ([facility]) Vital Signs (Past 12 Hours) Vital Signs Temp Pulse Resp BP Pulse Ox 11/20/21 19:25 37.4 C 99 H 20 108/52 L 94 11/20/21 15:28 37.8 C H 100 H 18 105/56 L 97 11/20/21 11:22 36.8 C 92 H 20 99/51 L 93 Laboratory Results Laboratory Results - last 24 hr 11/20/21 11/20/21 11/20/21 07:03 07:03 07:03 WBC 1.22 L RBC 2.77 L Hgb 7.0 L Hct 22.0 L MCV 79.4 L MCH 25.3 MCHC 31.8 L RDW Std Deviation 55.5 H RDW Coeff of Irasema 19.6 H Plt Count 33 L D Absolute Nucleated RBC 0.10 H Nucleated RBC % (auto) 8.0 Neutrophils % (Manual) 45.8 Lymphocytes % (Manual) 40.8 Monocytes % (Manual) 6.7 Blast Cells % (Manual) 6.7 Neutrophils # (Manual) 0.56 L Total Absolute Neuts 0.56 L* Lymphocytes # (Manual) 0.50 L Total Abs Lymphocytes 0.50 L Monocytes # (Manual) 0.08 L Blast Cells # (Man) 0.08 H Anisocytosis Present Spherocytes Occasional Schistocytes 1+ PT 11.9 INR 1.2 H Sodium 137 Potassium 3.4 L Chloride 109 H Carbon Dioxide 20 L Anion Gap 8 BUN 20 Creatinine 0.85 Est Cr Clr Drug Dosing 48.2 Est GFR ( Amer) 82.8 Est GFR (Non-Af Amer) 71.4 BUN/Creatinine Ratio 23.5 H Glucose 112 H Calcium 7.9 L Magnesium 1.7 Medications Administered Current Inpatient Medications Acetaminophen (Acetaminophen 500 Mg Tab) 500 mg PO QID PRN PRN Reason: Pain Stop: 12/17/21 21:39 Last Admin: 11/19/21 16:35 Dose: 500 mg Documented by: Acyclovir (Acyclovir 400 Mg Tab) 400 mg PO BID [facility] Stop: 12/17/21 21:20 Last Admin: 11/20/21 07:58 Dose: 400 mg Documented by: Albuterol (Albuterol Hfa 8 Gm Inhaler) 2 puffs INH QID PRN PRN Reason: Wheezing Stop: 12/17/21 21:40 Cetirizine HCl (Cetirizine Hcl 10 Mg Tablet) 10 mg PO QAM [facility] Stop: 12/18/21 08:59 Last Admin: 11/20/21 07:58 Dose: 10 mg Documented by: Ferrous Sulfate (Ferrous Sulfate 325 Mg Tab) 325 mg PO QAM [facility] Stop: 12/18/21 08:59 Last Admin: 11/20/21 07:58 Dose: 325 mg Documented by: Fluticasone/Vilanterol (Fluticasone/Vilanterol 100/25mcg 14 Puffs/Inhaler) 1 puffs INH DAILY [facility] Stop: 12/18/21 08:59 Last Admin: 11/20/21 07:59 Dose: 1 puffs Documented by: Folic Acid (Folic Acid 1 Mg Tab) 1 mg PO QAM [facility] Stop: 12/18/21 08:59 Last Admin: 11/20/21 07:58 Dose: 1 mg Documented by: Gabap[facility] ([facility] 400 Mg Cap) [facility] Stop: 12/18/21 08:59 Last Admin: 11/20/21 07:58 Dose: 400 mg Documented by: Meropenem 500 mg/ Syringe 10 mls @ 2 mls/min IV Q8H [facility]; Protocol Stop: 11/28/21 09:59 Last Admin: 11/20/21 17:15 Dose: 2 mls/min Documented by: Mirabegron (Mirabegron Er 25 Mg Tab) 50 mg PO [facility] Stop: 12/17/21 21:20 Last Admin: 11/19/21 22:45 Dose: 50 mg Documented by: Miscellaneous Information (Meropenem Consult Active) 1 ea N/A UD PRN PRN Reason: Consult Stop: 12/17/21 21:20 Ondansetron HCl (Ondansetron Inj 2 Mg/Ml 2 Ml Vial) 4 mg IV Q6H PRN PRN Reason: Nausea Stop: 12/18/21 01:21 Last Admin: 11/18/21 01:32 Dose: 4 mg Documented by: Oxybutynin Chloride (Oxybutynin Chloride Xl 5 Mg Tabcr) 10 mg PO [facility] Stop: 12/18/21 08:59 Last Admin: 11/20/21 07:58 Dose: 10 mg Documented by: Oxycodone HCl (Oxycodone Hcl Ir 5 Mg Tab (Immediate Release)) 5 mg PO Q4H PRN PRN Reason: pain Stop: 12/01/21 21:20 Last Admin: 11/20/21 15:17 Dose: 5 mg Documented by: Raspberry (Raspberry Syrup 5 Ml Udp) 5 ml PO MoFr [facility] Stop: 12/01/21 08:29 Rizatriptan Benzoate (Rizatriptan Benzoate 10 Mg Tab) 10 mg PO DAILY PRN PRN Reason: Migraine Headache Stop: 12/17/21 21:20 Saccharomyces Boulardii (Saccharomyces Boulardii 250 Mg Cap) 250 mg PO DAILY [facility] Stop: 12/19/21 10:59 Last Admin: 11/20/21 07:58 Dose: 250 mg Documented by: Sertraline HCl (Sertraline Hcl 50 Mg Tablet) 50 mg PO HS [facility] Stop: 12/17/21 21:20 Last Admin: 11/19/21 22:45 Dose: 50 mg Documented by: Topiramate (Topiramate 100 Mg Tab) 100 mg PO QAM [facility] Stop: 12/18/21 08:59 Last Admin: 11/20/21 07:58 Dose: 100 mg Documented by: Topiramate (Topiramate 100 Mg Tab) 200 mg PO HS [facility] Stop: 12/17/21 21:20 Last Admin: 11/19/21 22:45 Dose: 200 mg Documented by: Vancomycin HCl (Vancomycin Hcl 125 Mg/2.5ml Soln) 125 mg PO MoFr [facility] Stop: 12/01/21 08:29 PG Care Time/CCT Total # of Minutes Spent Total Time Spent with Patient: Total time spent is greater than 50% in coordination of care (as documented) at patient's floor/unit and/or counseling patient: Coding Level of Care Code 18753 Subseq Hosp Care Lvl 3 Diagnoses Sepsis A41.9 COVID-19 U07.1 Myelodysplastic disease C94.6 Obstructive sleep apnea G47.33 Pancytopenia due to antineoplastic chemotherapy D61.810; T45.1X5A S/P ureteral stent placement Z96.0 Chronic kidney disease, stage III (moderate) N18.30 Chronic kidney disease stage 3 subtype: unspecified whether 3a or 3b Neutropenic fever D70.9; R50.81 Hydronephrosis N13.30 Hx of Clostridium difficile infection Z86.19 DVT prophylaxis Z29.9 Coagulopathy D68.9 (1) Chronic kidney disease, stage III (moderate) Chronic kidney disease stage 3 subtype: unspecified whether 3a or 3b Qualified Code(s): N18.30 - Chronic kidney disease, stage 3 unspecified
[2021-11-20] MEDS: SERTRALINE HCL 50 MG TABLET PO SCH (21:55)
[2021-11-20] MEDS: MIRABEGRON ER 25 MG TAB PO SCH (21:55)
[2021-11-21] MEDS: MEROPENEM 500 MG in SYRINGE 0 ML IV SCH (02:25)
[2021-11-21 06:56] LABS: Hematocrit (blood only) 21.6 % (37-47); Hemoglobin 6.9 g/dL (12.0-16.0); Mean Corpuscular Hemoglobin 25.2 pg (25-34); Mean Corpuscular Hgb Conc 31.9 g/dL (32-36); Mean Corpuscular Volume 78.8 fL (80-100); Nucleated RBC # (auto) 0.08 K/uL (0-0); Nucleated RBC % (auto) 5.6 %; Platelet Count 16 K/uL (130-400); RDW Coefficient of Variation 20.2 % (11.5-14.5); RDW Standard Deviation 55.4 fL (36.4-46.3); Red Blood Count 2.74 M/uL (4.2-5.4)
[2021-11-21 06:58] LABS: BUN Creatinine Ratio 23.8 (10-20); Calcium 7.9 mg/dl (8.5-10.1); Creatinine Clr Calc Pharmacy 51.2 ml/min; Est GFR (Non-African American) 76.8 ml/min; Magnesium 1.7 mg/dl (1.7-2.4); Phosphorus 2.6 mg/dl (2.5-4.9); Potassium 3.3 mmol/L (3.5-5.1)
[2021-11-21 07:07] LABS: Anisocytosis Present; Platelet Estimate SIGNIFIC DECREASED (Normal); Poikilocytosis Present; Tear Drop Cells 1+; Toxic Vacuolation 1+
[2021-11-21 07:12] LABS: ALC (manual) 0.35 K/uL (1.2-3.4); ANC (manual) 0.83 K/uL (1.4-6.5); Basophils # (manual) 0.01 K/uL (0-0.2); Basophils % (manual) 0.6 %; Blast # (manual) 0.11 K/uL (0-0); Blast Cells % (manual) 7.5 %; Lymphocytes # (manual) 0.35 K/uL (1.2-3.4); Monocytes # (manual) 0.16 K/uL (0.11-0.59); Monocytes % (manual) 10.9 %; Myelocytes # (manual) 0.04 K/uL (0-0); Myelocytes % (manual) 2.9 %; Neutrophils # (manual) 0.83 K/uL (1.4-6.5); Neutrophils % (manual) 55.1 %
[2021-11-21 07:15] LABS: INR 1.2 (0.9-1.1); Prothrombin Time 11.9 Seconds (9.0-12.0)
[2021-11-21] MEDS ORDERED: SODIUM CHLORIDE 0.9% 250 ML IV PRN (07:56)
[2021-11-21] MEDS: RASPBERRY SYRUP 5 ML UDP PO SCH ×2 (08:21→09:16)
[2021-11-21] MEDS: FOLIC ACID 1 MG TAB PO SCH (08:22)
[2021-11-21] MEDS: OXYBUTYNIN CHLORIDE XL 5 MG TABCR PO SCH (08:23)
[2021-11-21] MEDS: GABAPENTIN 400 MG CAP PO SCH (08:23)
[2021-11-21] MEDS: CETIRIZINE HCL 10 MG TABLET PO SCH (08:23)
[2021-11-21] MEDS: SACCHAROMYCES BOULARDII 250 MG CAP PO SCH (08:23)
[2021-11-21] MEDS: ACYCLOVIR 400 MG TAB PO SCH ×2 (08:23→21:07)
[2021-11-21] MEDS: TOPIRAMATE 100 MG TAB PO SCH ×2 (08:24→21:08)
[2021-11-21] MEDS: FERROUS SULFATE 325 MG TAB PO SCH (08:24)
[2021-11-21] MEDS: FLUTICASONE/VILANTEROL 100/25MCG 14 PUFFS/INHALER INH SCH (08:24)
[2021-11-21] MEDS ORDERED: VANCOMYCIN HCL 125 MG/2.5ML SOLN PO SCH (08:30)
[2021-11-21] MEDS ORDERED: FILGRASTIM 480 MCG/1.6 ML VIAL SC ONE (08:45)
--- NOTE | 2021-11-21 15:33 | Hospitalist Progress Note ---
Date of Service November 21, 2021 Assessment & Plan (1) Sepsis: Plan: Technically met sepsis criteria on admission with fever, hypotension, neutropenia, and organ dysfunction. has chronic fever with her MDS no growth on blood and urine culture thus far, stop Meropenem after today fever, sepsis could just be due to COVID neutropenic today, give another dose of Neupogen 480mcg (2) COVID-19: Plan: likely had it for about a week, got it from family no hypoxemia, no infiltrates on CXR has a fever but this is chronic issue with MDS no role for dexamethasone, Remdesivir monitor oxygen levels which continue to be stable (3) Myelodysplastic disease: Plan: As per HPI - with her treatments this has resulted in continued fevers and pancytopenia as noted - Difficult to ascertain if COVID is effecting her WBC count as well - She has received Epogen on 11/15 she reports - She has also received Neupogen 480 mcg 11/18/21 give Neupogen this morning transfuse PRBC today for Hb 6.9 (4) Obstructive sleep apnea: Plan: Continue CPAP at night or PRN if hypoxia ensues secondary to sepsis/COVID - CPAP at home AutoPap 5-15 or CPAP of 10 if unable to do AutoPap (5) Pancytopenia due to antineoplastic chemotherapy: Plan: Is neutropenic this can be neutropenic fever as being treated for marginal zone lymphoma, history of squamous cell carcinoma right upper lobe and also resultant myelodysplasia. give Neupogen 480mcg again this morning Hb is 6.9, give PRBC 1 unit today (6) S/P ureteral stent placement: Plan: Placed for hydronephrosis 08/11 with exchange done 09/26/21 previously has had both Klebsiella pneumoniae ESBL, and Rachelle glabrata no growth on urine culture this admission, stop Meropenem (7) Chronic kidney disease, stage III (moderate): Plan: As above- follow post resuscitation - renally dose medications - avoid further nephrotoxic medications - [facility] (8) Neutropenic fever: Plan: stop Meropenem, no growth on cultures (9) Hydronephrosis: Plan: As above (10) Hx of Clostridium difficile infection: Plan: No diarrhea - has been on prophy Vancomycin in the past while on ABX -Given pancytopenia previous history of C. difficile chronic suppressive therapy will continue oral vancomycin (11) DVT prophylaxis: Plan: Chemoprophylaxis is contraindicated with thrombocytopenia will use SCDs cautiously and assess for bruising (12) Coagulopathy: Plan: INR elevated due to nutritional deficits down to 1.2 after Vitamin K Plan: CBC in AM consider discharge if stable and not hypoxic Admission and Anticipated Discharge Date Admission Date: November 17, 2021 Subjective patient feels fine reviewed labs, Hb 6.9 and ANC 0.8, plts are < 20k patient agrees to transfusion of PRBC, will take a few hours for antibody testing and irradiated will check labs in AM and get her home Review of Systems Review of Systems: All systems reviewed & are unremarkable except as noted in Subjective Constitutional: + fatigue and + weakness; no fever Respiratory: no cough and no dyspnea Cardiovascular: no chest pain Gastrointestinal: + early satiety; no abdominal pain, no nausea, no vomiting, no constipation and no diarrhea/loose stools Physical Exam Physical Exam: General: well developed, thin female, no acute distress, comfortable, appears older than age Neck: supple, trachea midline, normal thyroid Lungs: clear to auscultation bilaterally, normal respiratory effort, no accessory muscle use, no distress Heart: regular S1 and S2, no murmur, peripheral pulses normal, capillary refill normal, no edema Abdomen: soft, NT, ND, + BS, no hepatomegaly, normal to percussion Extremities: normal in appearance, no cyanosis, no petechiae, strength is 5/5 bilaterally Neuro: awake, cooperative, moves all extremities, no focal motor deficits, CN II-XII intact, sensation in extremities intact, normal speech Skin: warm, dry, no rash, normal turgor Psych: Awake, alert oriented x 3, euthymic affect Results & Data Results & Data ([facility]) Vital Signs (Past 12 Hours) Vital Signs Temp Pulse Pulse Resp BP BP Pulse Ox 11/21/21 14:15 103 H 11/21/21 11:31 36.9 C 93 H 20 97/54 L 96 11/21/21 07:41 36.8 C 106 H 18 109/51 L 95 11/21/21 06:19 134 H Laboratory Results Laboratory Results - last 24 hr 11/21/21 11/21/21 11/21/21 05:51 05:51 05:51 WBC 1.50 L RBC 2.74 L Hgb 6.9 L* Hct 21.6 L MCV 78.8 L MCH 25.2 MCHC 31.9 L RDW Std Deviation 55.4 H RDW Coeff of Irasema 20.2 H Plt Count 16 L* D Absolute Nucleated RBC 0.08 H Nucleated RBC % (auto) 5.6 Neutrophils % (Manual) 55.1 Lymphocytes % (Manual) 23.0 Monocytes % (Manual) 10.9 Basophils % (Manual) 0.6 Myelocytes % (Man) 2.9 Blast Cells % (Manual) 7.5 Neutrophils # (Manual) 0.83 L Total Absolute Neuts 0.83 L* Lymphocytes # (Manual) 0.35 L Total Abs Lymphocytes 0.35 L Monocytes # (Manual) 0.16 Basophils # (Manual) 0.01 Myelocytes # (Manual) 0.04 H Blast Cells # (Man) 0.11 H Hyposegmented Neuts 1+ Toxic Vacuolation 1+ Platelet Estimate SIGNIFIC DECREASED Poikilocytosis Present Anisocytosis Present Tear Drop Cells 1+ PT 11.9 INR 1.2 H Sodium 135 L Potassium 3.3 L Chloride 107 Carbon Dioxide 21 Anion Gap 7 BUN 19 Creatinine 0.80 Est Cr Clr Drug Dosing 51.2 Est GFR ( Amer) 89.0 Est GFR (Non-Af Amer) 76.8 BUN/Creatinine Ratio 23.8 H Glucose 108 H Calcium 7.9 L Phosphorus 2.6 Magnesium 1.7 Blood Type Antibody Screen Antibody Identification Antibody ID Referred Antibody ID Comment Crossmatch 11/21/21 11/21/21 07:56 08:23 WBC RBC Hgb Hct MCV MCH MCHC RDW Std Deviation RDW Coeff of Irasema Plt Count Absolute Nucleated RBC Nucleated RBC % (auto) Neutrophils % (Manual) Lymphocytes % (Manual) Monocytes % (Manual) Basophils % (Manual) Myelocytes % (Man) Blast Cells % (Manual) Neutrophils # (Manual) Total Absolute Neuts Lymphocytes # (Manual) Total Abs Lymphocytes Monocytes # (Manual) Basophils # (Manual) Myelocytes # (Manual) Blast Cells # (Man) Hyposegmented Neuts Toxic Vacuolation Platelet Estimate Poikilocytosis Anisocytosis Tear Drop Cells PT INR Sodium Potassium Chloride Carbon Dioxide Anion Gap BUN Creatinine Est Cr Clr Drug Dosing Est GFR ( Amer) Est GFR (Non-Af Amer) BUN/Creatinine Ratio Glucose Calcium Phosphorus Magnesium Blood Type B Positive Antibody Screen POSITIVE A Antibody Identification Pending Antibody ID Referred Pending Antibody ID Comment Pending Crossmatch See Detail Medications Administered Current Inpatient Medications Acetaminophen (Acetaminophen 500 Mg Tab) 500 mg PO QID PRN PRN Reason: Pain Stop: 12/17/21 21:39 Last Admin: 11/19/21 16:35 Dose: 500 mg Documented by: Acyclovir (Acyclovir 400 Mg Tab) 400 mg PO BID [facility] Stop: 12/17/21 21:20 Last Admin: 11/21/21 08:23 Dose: 400 mg Documented by: Albuterol (Albuterol Hfa 8 Gm Inhaler) 2 puffs INH QID PRN PRN Reason: Wheezing Stop: 12/17/21 21:40 Cetirizine HCl (Cetirizine Hcl 10 Mg Tablet) 10 mg PO QAM [facility] Stop: 12/18/21 08:59 Last Admin: 11/21/21 08:23 Dose: 10 mg Documented by: Ferrous Sulfate (Ferrous Sulfate 325 Mg Tab) 325 mg PO QAM [facility] Stop: 12/18/21 08:59 Last Admin: 11/21/21 08:24 Dose: 325 mg Documented by: Fluticasone/Vilanterol (Fluticasone/Vilanterol 100/25mcg 14 Puffs/Inhaler) 1 puffs INH DAILY [facility] Stop: 12/18/21 08:59 Last Admin: 11/21/21 08:24 Dose: 1 puffs Documented by: Folic Acid (Folic Acid 1 Mg Tab) 1 mg PO QAM [facility] Stop: 12/18/21 08:59 Last Admin: 11/21/21 08:22 Dose: 1 mg Documented by: Gabapentin (Gabapentin 400 Mg Cap) 400 mg PO QAM [facility] Stop: 12/18/21 08:59 Last Admin: 11/21/21 08:23 Dose: 400 mg Documented by: Sodium Chloride (Nss) 250 mls @ 15 mls/hr IV .[id number] PRN PRN Reason: For Transfusion Stop: 11/21/21 17:56 Mirabegron (Mirabegron Er 25 Mg Tab) 50 mg PO HS [facility] Stop: 12/17/21 21:20 Last Admin: 11/20/21 21:55 Dose: 50 mg Documented by: Ondansetron HCl (Ondansetron Inj 2 Mg/Ml 2 Ml Vial) 4 mg IV Q6H PRN PRN Reason: Nausea Stop: 12/18/21 01:21 Last Admin: 11/18/21 01:32 Dose: 4 mg Documented by: Oxybutynin Chloride (Oxybutynin Chloride Xl 5 Mg Tabcr) 10 mg PO QAM [facility] Stop: 12/18/21 08:59 Last Admin: 11/21/21 08:23 Dose: 10 mg Documented by: Oxycodone HCl (Oxycodone Hcl Ir 5 Mg Tab (Immediate Release)) 5 mg PO Q4H PRN PRN Reason: pain Stop: 12/01/21 21:20 Last Admin: 11/20/21 15:17 Dose: 5 mg Documented by: Raspberry (Raspberry Syrup 5 Ml Udp) 5 ml PO MoFr [facility] Stop: 12/01/21 08:29 Last Admin: 11/21/21 09:16 Dose: 5 ml Documented by: Rizatriptan Benzoate (Rizatriptan Benzoate 10 Mg Tab) 10 mg PO DAILY PRN PRN Reason: Migraine Headache Stop: 12/17/21 21:20 Saccharomyces Boulardii (Saccharomyces Boulardii 250 Mg Cap) 250 mg PO DAILY [facility] Stop: 12/19/21 10:59 Last Admin: 11/21/21 08:23 Dose: 250 mg Documented by: Sertraline HCl (Sertraline Hcl 50 Mg Tablet) 50 mg PO [facility] Stop: 12/17/21 21:20 Last Admin: 11/20/21 21:55 Dose: 50 mg Documented by: Topiramate (Topiramate 100 Mg Tab) 100 mg PO [facility] Stop: 12/18/21 08:59 Last Admin: 11/21/21 08:24 Dose: 100 mg Documented by: Topiramate (Topiramate 100 Mg Tab) 200 mg PO [facility] Stop: 12/17/21 21:20 Last Admin: 11/20/21 21:55 Dose: 200 mg Documented by: Vancomycin HCl (Vancomycin Hcl 125 Mg/2.5ml Soln) 125 mg PO MoFr [facility] Stop: 12/01/21 08:29 Last Admin: 11/21/21 09:16 Dose: 125 mg Documented by: PG Care Time/CCT Total # of Minutes Spent Total Time Spent with Patient: Total time spent is greater than 50% in coordination of care (as documented) at patient's floor/unit and/or counseling patient: Coding Level of Care Code 50046 Subseq Hosp Care Lvl 2 Diagnoses Sepsis A41.9 COVID-19 U07.1 Myelodysplastic disease C94.6 Obstructive sleep apnea G47.33 Pancytopenia due to antineoplastic chemotherapy D61.810; T45.1X5A S/P ureteral stent placement Z96.0 Chronic kidney disease, stage III (moderate) N18.30 Chronic kidney disease stage 3 subtype: unspecified whether 3a or 3b Neutropenic fever D70.9; R50.81 Hydronephrosis N13.30 Hx of Clostridium difficile infection Z86.19 DVT prophylaxis Z29.9 Coagulopathy D68.9 (1) Chronic kidney disease, stage III (moderate) Chronic kidney disease stage 3 subtype: unspecified whether 3a or 3b Qualified Code(s): N18.30 - Chronic kidney disease, stage 3 unspecified
[2021-11-21] MEDS: oxyCODONE HCL IR 5 MG TAB (IMMEDIATE RELEASE) PO PRN ×2 (16:51→21:06)
[2021-11-21] MEDS ORDERED: diphenhydrAMINE 50 MG/ML VIAL IV STA (17:46)
[2021-11-21] MEDS ORDERED: ACETAMINOPHEN 325 MG TAB PO STA (17:46)
[2021-11-21] MEDS: SERTRALINE HCL 50 MG TABLET PO SCH (21:08)
[2021-11-21] MEDS: MIRABEGRON ER 25 MG TAB PO SCH (21:08)
[2021-11-22] MEDS: oxyCODONE HCL IR 5 MG TAB (IMMEDIATE RELEASE) PO PRN ×2 (07:18→13:17)
[2021-11-22 07:31] LABS: Hematocrit (blood only) 25.2 % (37-47); Hemoglobin 8.3 g/dL (12.0-16.0); Mean Corpuscular Hemoglobin 26.2 pg (25-34); Mean Corpuscular Hgb Conc 32.9 g/dL (32-36); Mean Corpuscular Volume 79.5 fL (80-100); Nucleated RBC # (auto) 0.06 K/uL (0-0); Nucleated RBC % (auto) 3.5 %; Platelet Count 14 K/uL (130-400); RDW Coefficient of Variation 18.2 % (11.5-14.5); RDW Standard Deviation 51.7 fL (36.4-46.3); Red Blood Count 3.17 M/uL (4.2-5.4); White Blood Count 1.74 K/uL (4.8-10.8)
[2021-11-22 07:33] LABS: BUN Creatinine Ratio 27.3 (10-20); Calcium 7.8 mg/dl (8.5-10.1); Creatinine Clr Calc Pharmacy 52.4 ml/min; Est GFR (African American) 93.3 ml/min; Est GFR (Non-African American) 80.5 ml/min; Magnesium 1.7 mg/dl (1.7-2.4); Potassium 3.3 mmol/L (3.5-5.1)
[2021-11-22 07:37] LABS: Anisocytosis Present; Hypochromasia Present; Platelet Estimate SIGNIFIC DECREASED (Normal); Poikilocytosis Present; Toxic Vacuolation 1+
[2021-11-22 07:42] LABS: ALC (manual) 0.79 K/uL (1.2-3.4); ANC (manual) 0.64 K/uL (1.4-6.5); Basophils # (manual) 0.02 K/uL (0-0.2); Basophils % (manual) 0.9 %; Blast # (manual) 0.03 K/uL (0-0); Blast Cells % (manual) 1.9 %; Lymphocytes # (manual) 0.77 K/uL (1.2-3.4); Lymphocytes % (manual) 44.4 %; Monocytes # (manual) 0.21 K/uL (0.11-0.59); Monocytes % (manual) 12.3 %; Myelocytes # (manual) 0.05 K/uL (0-0); Myelocytes % (manual) 2.8 %; Neutrophils # (manual) 0.64 K/uL (1.4-6.5); Neutrophils % (manual) 36.8 %; Reactive Lymphocytes # (manual) 0.02 K/uL; Reactive Lymphocytes % (manual) 0.9 %
[2021-11-22] MEDS ORDERED: FILGRASTIM 480 MCG/1.6 ML VIAL SC ONE (08:30)
[2021-11-22] MEDS ORDERED: EPOETIN ALFA 40,000 UNITS/ML VIAL SC ONE (08:45)
[2021-11-22] MEDS: FLUTICASONE/VILANTEROL 100/25MCG 14 PUFFS/INHALER INH SCH (09:07)
[2021-11-22] MEDS: OXYBUTYNIN CHLORIDE XL 5 MG TABCR PO SCH (09:08)
[2021-11-22] MEDS: GABAPENTIN 400 MG CAP PO SCH (09:08)
[2021-11-22] MEDS: TOPIRAMATE 100 MG TAB PO SCH (09:08)
[2021-11-22] MEDS: CETIRIZINE HCL 10 MG TABLET PO SCH (09:09)
[2021-11-22] MEDS: FOLIC ACID 1 MG TAB PO SCH (09:09)
[2021-11-22] MEDS: SACCHAROMYCES BOULARDII 250 MG CAP PO SCH (09:09)
[2021-11-22] MEDS: FERROUS SULFATE 325 MG TAB PO SCH (09:10)
[2021-11-22] MEDS: ACYCLOVIR 400 MG TAB PO SCH (09:10)
--- NOTE | 2021-11-22 10:02 | Discharge Summary ---
Date of Service November 22, 2021 Admission HPI Per Admitting Provider 66 YOF with past medical history of: Myelodysplastic syndrome ( on 5-azacitidine- dx 2020), anemia secondary to chemotherapy(receives blood transfusions and Epogen injections), SACHA, urinary incontinence, COPD (emphysema), SCLC of the lung, Pro-thombin factor 2 mutation, celiac disease, CVA, she is on suppressive therapy of acyclovir and doxycycline (for cellulitis), frequent UTI with (ESBL Klebsiella and glabrata)- she has bilateral urinary stents that were placed 08/11 and exchanged in 10/11 and have not been removed secondary to continued infection and low platelet counts. The patient was admitted in September with known bilateral hydronephrosis, AURORA, fever, and UTI with ESBL Klebsiella. ID was consulted as well as urology for evaluation- she was treated with meropenem. There was some discussion regarding exchanging or irrigating and/or diverting with urostomy if she continued to not improve or clinically worsen. The patient was discharged on 10/17. Since then patient con tinues to have fevers at home as she checks them daily with her history of pancytopenia. She reports that over the past week few days she has been getting chills, lower back/flank pain, and worsening of her discomfort around her bladder. She had an Epogen shot on Sunday- she reports, and normally her fever goes up with that. Today she endorsed fever of 102.0 associated with the above symptoms. She remains anemic in the [facility] at 6.2- she was 8.1 on . She was typed and crossed, consented for blood by [facility] physician and is receiving 1unit PRBC. Patient denies any blood loss or dark stools. Her WBC today are 1.00, and her other lab work continues to show pancytopenia as well as elevated [employer] to 1.59. Patient had sepsis workup initiated in the [facility] with blood cultures x2, U/A with reflexive culture, lactate and PCT. Her CXR does not have any opacities or suspected sources. She was started on Meropenem for suspected UTI as source. Unfortunately her COVID test was positive prior to admission as well. The rest of her viral panel is negative. She does meet sepsis criteria. She received 1L of crystalloid and will also get 1unit of PRBC as above. Renal organ dysfunction noted, as well as INR 1.4, Troponin Negative and no anginal symptoms. Patient will be admitted to COVID telemetry floor and continue to follow her clinical course and await her culture results- impossible at this time to differentiate- currently no COVID therapies to offer with her Renal function and immunosuppression. Will send other inflammatory markers. Patient has received her vaccine and her boosters: COVID test on admission is: POSITIVE Principal Diagnosis COVID Pancytopenia Neutropenic fever Discharge Exam General: well developed, thin female, no acute distress, comfortable, appears older than age Neck: supple, trachea midline, normal thyroid Lungs: clear to auscultation bilaterally, normal respiratory effort, no accessory muscle use, no distress Heart: regular S1 and S2, no murmur, peripheral pulses normal, capillary refill normal, no edema Abdomen: soft, NT, ND, + BS, no hepatomegaly, normal to percussion Extremities: normal in appearance, no cyanosis, no petechiae, strength is 5/5 bilaterally Neuro: awake, cooperative, moves all extremities, no focal motor deficits, CN II-XII intact, sensation in extremities intact, normal speech Skin: warm, dry, no rash, normal turgor Psych: Awake, alert oriented x 3, euthymic affect Discharge Data Allergies Allergy/AdvReac Type Severity Reaction Status Date / Time bee venom protein (honey bee) Allergy Severe Difficulty Verified 11/17/21 18:01 Breathing adhesive Allergy Intermediate Red torn Verified 11/17/21 18:01 skin Iodinated Contrast Media Allergy Intermediate Hives Verified 11/17/21 18:01 iodine Allergy Intermediate Hives Verified 11/17/21 18:01 levofloxacin Allergy Intermediate numbness/we Verified 11/17/21 18:01 akness pregabalin Allergy Intermediate fever?/?cher Verified 11/17/21 18:01 h strawberry Allergy Intermediate Hives Verified 11/17/21 18:01 Sulfa (Sulfonamide Allergy Intermediate Rash, hives Verified 11/17/21 18:01 Antibiotics) vancomycin Allergy Intermediate Bullous Verified 11/17/21 18:01 skin rash allopurinol Allergy Mild Rash Verified 11/17/21 18:01 ceftriaxone [From Rocephin] Allergy Mild Rash Verified 11/17/21 18:01 piperacillin [From Zosyn] Allergy Mild Rash Verified 11/17/21 18:01 tazobactam [From Zosyn] Allergy Mild Rash Verified 11/17/21 18:01 venlafaxine Allergy Unknown Unknown Verified 11/17/21 18:01 gluten AdvReac Severe Celiac Dz Verified 11/17/21 18:01 = GI symptoms propoxyphene AdvReac Intermediate [employer] side Verified 11/17/21 18:01 effects Consultations 11/17/21 18:49 ED Decision to Admit Stat Hospital Course (1) COVID-19: (2) Sepsis: (3) Chronic kidney disease: (4) AURORA (acute kidney injury): (5) Pancytopenia: (6) Coagulopathy: 1) Sepsis: Plan: Technically met sepsis criteria on admission with fever, hypotension, neutropenia, and organ dysfunction. has chronic fever with her MDS no growth on blood and urine culture thus far, stop Meropenem 11/21 fever, sepsis could just be due to COVID neutropenic, got several doses of Neupogen (2) COVID-19: Plan: likely had it for about a week, got it from family no hypoxemia, no infiltrates on CXR has a fever but this is chronic issue with MDS no role for dexamethasone, Remdesivir monitor oxygen levels which continue to be stable (3) Myelodysplastic disease: Plan: As per HPI - with her treatments this has resulted in continued fevers and pancytopenia as noted - Difficult to ascertain if COVID is effecting her WBC count as well - She has received Epogen on 11/15 she reports - She has also received Neupogen 480 mcg 11/18/21 give Neupogen 11/20, 11/21 and 11/22 transfuse PRBC 11/21, up to 8.3 gave Procrit again on 11/22 (4) Obstructive sleep apnea: Plan: Continue CPAP at night or PRN if hypoxia ensues secondary to sepsis/COVID - CPAP at home AutoPap 5-15 or CPAP of 10 if unable to do AutoPap (5) Pancytopenia due to antineoplastic chemotherapy: Plan: Is neutropenic this can be neutropenic fever as being treated for marginal zone lymphoma, history of squamous cell carcinoma right upper lobe and also resultant myelodysplasia. several doses of neupogen given Hb up to 8.3 after PRBC transfusion (6) S/P ureteral stent placement: Plan: Placed for hydronephrosis 08/11 with exchange done 09/26/21 previously has had both Klebsiella pneumoniae ESBL, and Rachelle glabrata no growth on urine culture this admission, stop Meropenem (7) Chronic kidney disease, stage III (moderate): Plan: As above- follow post resuscitation - renally dose medications - avoid further nephrotoxic medications - AURORA (8) Neutropenic fever: Plan: stop Meropenem, no growth on cultures (9) Hydronephrosis: Plan: As above (10) Hx of Clostridium difficile infection: Plan: No diarrhea - has been on prophy Vancomycin in the past while on ABX -Given pancytopenia previous history of C. difficile chronic suppressive therapy will continue oral vancomycin (11) DVT prophylaxis: Plan: Chemoprophylaxis is contraindicated with thrombocytopenia will use SCDs cautiously and assess for bruising (12) Coagulopathy: Plan: INR elevated due to nutritional deficits down to 1.2 after Vitamin K Total Time Total Time Spent Total Time Spent (In Minutes): 33 Total Time Includes: Examination of the Patient, Discharge Planning, Medication Reconciliation and Communication With Other Providers Discharge Plan Discharge Items Patient Disposition: Home - Self-Care Reason For Visit: Pancytopenia, fever, COVID Discharge Diagnosis: COVID infection Anemia Neutropenia Thrombocytopenia Condition on Discharge: Good Goals: follow up with hematology/oncology next week Activity: Resume your previous activity Non-emergency contact: Primary Care Provider Call non-emergency contact if: you have any medication questions and your symptoms worsen Follow-up/Referrals: Reynold Villegas MD [Primary Care Provider] - 12/05/21 2:00 pm Diet: Regular Addtl Attending Provider Instructions: Medications: no changes, resume rotating antibiotics, continue valacyclovir, Vancomycin Neutropenia, fever no growth on urine or blood cultures, stopped Meropenem after a few days gave Neupogen on 11/18, 11/20, 11/21 and 11/22 Anemia: received Procrit on 11/15 as well as 11/22 received total of 2 units of PRBC Hemoglobin is 8.3 today Thrombocytopenia: platelets remain very low but this is chronic, no signs of bleeding COVID: no signs of pneumonia, stable on room air no further need for isolation Pending Studies at Discharge: No Stand-Alone Forms: My [employer], Smoking Cessation Medications and DC Order Prescriptions: Continued Prolia 60 mg/mL syringe 60 mg subcut .q 6 months RF: 0 calcium carbonate-vitamin D3 [Caltrate with Vitamin D3] 600 mg(1,500mg) -800 unit tablet 1 tab PO QPM RF: 0 ergocalciferol (vitamin D2) 1,250 mcg (50,000 unit) capsule 50,000 unit PO WEEKLY Qty: 12 RF: 1 albuterol sulfate [ProAir HFA] 90 mcg/actuation HFA aerosol inhaler 2 puff INHALATION QID PRN (Reason: Wheezing) Qty: 8.5 RF: 5 metoprolol succinate 50 mg tablet extended release 24 hr 25 mg PO QAM Qty: 45 RF: 3 rizatriptan 10 mg tablet 10 mg PO DAILY PRN (Reason: Migraine Headache) Qty: 9 RF: 5 methocarbamol 750 mg tablet 750 mg PO BID PRN (Reason: Pain) Qty: 60 RF: 5 oxybutynin chloride 10 mg tablet extended release 24hr 10 mg PO QAM Qty: 90 RF: 1 Myrbetriq 50 mg tablet extended release 24 hr 50 mg PO HS Qty: 90 RF: 3 gabapentin [Neurontin] 400 mg capsule 400 mg PO QAM 30 Days Qty: 30 RF: 3 potassium chloride 20 mEq tablet extended release 20 meq PO QAM Qty: 30 RF: 5 quetiapine [Seroquel] 50 mg tablet 50 mg PO HS Qty: 30 RF: 5 clonazepam 1 mg tablet 0.5 mg PO HS Qty: 30 RF: 2 budesonide-formoterol [Symbicort] 80-4.5 mcg/actuation HFA aerosol inhaler 2 puff inhalation BID Qty: 3 RF: 3 rvnpwghtex-awgqdhktvoriu-iywa [Esgic] 50-325-40 mg tablet 1 tab PO DAILY PRN (Reason: HEADACHES) 30 Days Qty: 12 RF: 0 phenazopyridine [Pyridium] 200 mg tablet 200 mg PO BID PRN (Reason: pain) Qty: 7 RF: 0 sertraline [Zoloft] 50 mg tablet 50 mg PO HS Qty: 30 RF: 11 ciprofloxacin HCl [Cipro] 250 mg tablet 250 mg PO BID Qty: 10 RF: 0 (DME) Auto Titrating CPAP Misc See Rx Instructions .ROUTE .MEDSUPPLY Qty: 1 RF: 0 (DME) CPAP Supplies Misc See Rx Instructions .ROUTE .MEDSUPPLY Qty: 1 RF: 0 cyanocobalamin (vitamin B-12) 1,000 mcg/mL Solution 1,000 mcg IM MONTHLY RF: 0 ferrous sulfate [iron] 325 mg (65 mg iron) Tablet 325 mg PO QAM RF: 0 vitamin E 400 unit Capsule 400 unit PO QAM RF: 0 multivitamin Tablet 1 tab PO QAM RF: 0 cetirizine [Zyrtec] 10 mg Tablet 10 mg PO QAM RF: 0 vitamin B complex [B-Complex] Tablet 1 tab PO QAM RF: 0 folic acid 1 mg Tablet 1 mg PO QAM RF: 0 magnesium oxide 400 mg Capsule 400 mg PO QAM RF: 0 Medical Marijuana 1 ml sublingual UD PRN (Reason: Pain) RF: 0 coQ10 (ubiquinol) 200 mg Capsule 200 mg PO QAM RF: 0 doxycycline hyclate 100 mg capsule 100 mg PO QDD RF: 0 oxycodone 5 mg tablet 5 mg PO Q4H PRN (Reason: pain) Qty: 20 RF: 0 acetaminophen 500 mg Capsule 500 mg PO QID PRN (Reason: Pain) RF: 0 L.acidoph-B.lactis-B.longum 15 billion cell Capsule 1 cap PO QAM RF: 0 cephalexin 500 mg capsule 500 mg PO QDD RF: 0 triamcinolone acetonide 0.025 % Cream 1 applic TOPICAL BID PRN (Reason: Skin Irritation) Qty: 80 RF: 0 diphenhydramine HCl [Benadryl] 25 mg Capsule 25 mg PO Q6H PRN (Reason: Allergic Symptoms) RF: 0 acyclovir 400 mg tablet 400 mg PO .AM & HS RF: 0 topiramate [Topamax] 100 mg tablet 100 mg PO QAM RF: 0 topiramate [Topamax] 200 mg Tablet 200 mg PO HS RF: 0 vancomycin 125 mg capsule 125 mg PO 2XWK RF: 0 Discharge Orders: Discharge Order (Routine); Ordered 11/22/21 Ordered By: James Thomas Admission Data Admit Date/Time: 11/17/21 19:03 Attending Provider: James Thomas Admit Provider: Oswaldo Gibson Primary Care Provider: Reynold Villegas Other Providers: Oswaldo Gibson Coding Level of Care Code D/C DAY MANAGEMENT >30 MINS Diagnoses COVID-19 U07.1 Sepsis A41.9 Chronic kidney disease N18.9 AURORA (acute kidney injury) N17.9 Pancytopenia D61.818 Coagulopathy D68.9
[2021-11-22 12:16] VITALS: PULSE 88; TEMP 99; O2SAT 94
[2021-11-22 13:00] VITALS: BP 109/51
== END 2021-11-22 15:30 | disposition home or self-care (01) | DRG 871 ==
LOC: ED 16:19 → SUATTDRO 19:03 → 2W 19:03

== ENCOUNTER 2021-11-26 20:33 | Inpatient (IN) ==
[2021-11-26] MEDS ORDERED: SODIUM CHLORIDE 0.9% 250 ML IV PRN ×4 (20:45→22:41)
[2021-11-26] MEDS ORDERED: SODIUM CHLORIDE 0.9% 1000ML 1,000 ML IV SCH ×2 (20:45→22:45)
[2021-11-26] MEDS ORDERED: PANTOPRAZOLE BOLUS/DRIP 1 EA IV STA (21:09)
[2021-11-26] MEDS ORDERED: PANTOprazole 80 MG in DEXTROSE 5% 100 ML IV ONE (21:09)
[2021-11-26] MEDS: PANTOprazole 40 MG in DEXTROSE 5% 100 ML IV SCH (21:41)
[2021-11-26 22:04] LABS: INR 2.5 (0.9-1.1); Partial Thromboplastin Ratio 2.9; Prothrombin Time 23.4 Seconds (9.0-12.0)
[2021-11-26 22:06] LABS: Hematocrit (blood only) 25.4 % (37-47); Hemoglobin 7.9 g/dL (12.0-16.0); Mean Corpuscular Hemoglobin 25.4 pg (25-34); Mean Corpuscular Hgb Conc 31.1 g/dL (32-36); Mean Corpuscular Volume 81.7 fL (80-100); RDW Coefficient of Variation 20.7 % (11.5-14.5); RDW Standard Deviation 60.2 fL (36.4-46.3); Red Blood Count 3.11 M/uL (4.2-5.4); White Blood Count 1.24 K/uL (4.8-10.8)
[2021-11-26 22:08] LABS: Alanine Aminotransferase 15 U/L (7-52); Albumin Globulin Ratio 1.2 (0.9-2); Albumin Level 3.4 gm/dl (3.4-5.0); Alkaline Phosphatase 84 U/L (34-104); Anion Gap 8 (3-11); Aspartate Aminotransferase 12 U/L (13-39); BUN Creatinine Ratio 27.8 (10-20); Bilirubin,Total 0.7 mg/dl (0.2-1.0); Blood Urea Nitrogen 35 mg/dl (6-23); Calcium 8.9 mg/dl (8.5-10.1); Carbon Dioxide 22 mmol/L (21-32); Chloride 107 mmol/L (98-107); Est GFR (African American) 51.4 ml/min; Est GFR (Non-African American) 44.4 ml/min; Globulin 2.8 gm/dl (2.5-4.0); Glucose 121 mg/dl (70-99(Fasting)); Potassium 4.4 mmol/L (3.5-5.1); Sodium 137 mmol/L (136-145); Total Protein 6.2 gm/dl (6.0-8.3)
[2021-11-26 22:09] LABS: Anisocytosis Present; Nucleated RBC % (auto) 8.4 %; Platelet Count 11 K/uL (130-400); Platelet Estimate SIGNIFIC DECREASED (Normal); Polychromasia 1+; Schistocytes 1+; Toxic Granulation 2+
[2021-11-26 22:10] LABS: ALC (manual) 0.77 K/uL (1.2-3.4); ANC (manual) 0.36 K/uL (1.4-6.5); Blast # (manual) 0.02 K/uL (0-0); Blast Cells % (manual) 1.8 %; Lymphocytes # (manual) 0.44 K/uL (1.2-3.4); Lymphocytes % (manual) 35.5 %; Monocytes # (manual) 0.06 K/uL (0.11-0.59); Monocytes % (manual) 4.5 %; Myelocytes # (manual) 0.03 K/uL (0-0); Myelocytes % (manual) 2.7 %; Neutrophils # (manual) 0.36 K/uL (1.4-6.5); Neutrophils % (manual) 29.1 %; Reactive Lymphocytes # (manual) 0.33 K/uL; Reactive Lymphocytes % (manual) 26.4 %
[2021-11-26 22:13] LABS: Partial Thromboplastin Time 77.2 Seconds (21.0-31.0)
--- NOTE | 2021-11-26 22:15 | XRay Report ---
SINGLE VIEW CHEST CLINICAL HISTORY: Unspecified bleeding. Lung cancer. FINDINGS: An AP, portable, upright chest radiograph is compared to study dated 11/17/2021 and correlat ed with chest CT dated 08/01/2021 and PET/CT dated 02/02/2021. The cardiomediastinal silhouette is unr emarkable noting atherosclerotic calcification of the thoracic aorta. Advanced emphysema and chronic interstitial thickening is similar to previous. Parenchyma scarring in the right upper lobe is unchan ged. There are mild bibasilar airspace opacities. No large pleural effusion or pneumothorax is identi fied. The skeletal structures are osteopenic. Thickening and sclerosis of the right anterior upper ri bs is similar to previous. There is chronic posttraumatic deformity of the left proximal humerus. IMPRESSION: 1. There are mild bibasilar airspace opacities. Left basilar opacities are new from previous. Correla te clinically for evidence of an infectious/inflammatory pneumonitis. 2. Emphysema with chronic and treatment related changes as above. ACT 112: Negative or not required by law. Electronically signed by: Zohaib Montoya M.D. 11/26/2021 10:13 PM
[2021-11-26] MEDS ORDERED: PHYTONADIONE 10 MG in DEXTROSE 5% 50 ML IV ONE (22:19)
--- NOTE | 2021-11-26 22:26 | Emergency Department Note ---
Impression & Plan UGIB (upper gastrointestinal bleed), MDS (myelodysplastic syndrome), Anemia, Neutropenia, COVID-19 ED Provider Note CHIEF COMPLAINT: vomiting blood, myelodysplastic disorder, Covid positive end of October HISTORY OF PRESENT ILLNESS: This 66-year-old female patient presents to the emergency department with complaints of vomiting blood. Patient states she developed a fairly sudden onset of nausea and discomfort today. She did have some looser stools/diarrhea. She states her stools are always dark due to her iron supplementation. She did not have any vomiting until this evening she de veloped some chest discomfort and suddenly vomited. Patient denies taking any blood thinners. She states she was recently hospitalized due to a urinary tract infection and was positive for COVID-19 at the end of October. She has had periodic fevers which she is told is related to her MDS. Patient denies any significant chest discomfort shortness of breath, urinary symptoms. REVIEW OF SYSTEMS: A review of systems was performed with positives and pertinent negatives listed in the history of present illness. 10 systems were reviewed and are otherwise negative. ALLERGIES: see below MEDICATIONS: see below PMH: see below SOCIAL HISTORY: see below DDx: Diverticulosis, AVM, coagulopathy, colitis, inflammatory bowel disease, malignancy, Danielle-Garnett tear, esophagitis, peptic ulcer disease, variceal bleed, gastritis, epistaxis, fissure, hemorrhoids, as well as other pathologies. PHYSICAL EXAM: Vital signs reviewed. General: Chronically ill-appearing 66-year-old female, in no significant distress. HEENT: No scleral icterus, PERRLA, neck supple. Bright red blood noted to the posterior oropharynx, no active bleeding. Cardiovascular: Regular rate and rhythm, no extra sounds. Pulmonary: Clear to auscultation bilaterally, normal work of breathing. Abdomen: Soft, nontender, nondistended, positive bowel sounds. Musculoskeletal: Atraumatic, no peripheral edema. Neurologic: Patient awake alert and oriented x 3, speech is clear Skin: Warm, dry, no rash EMERGENCY DEPARTMENT COURSE/MDM: This patient was evaluated and appeared to be in no significant distress. IV access was obtained and laboratory work was drawn. Patient was placed on airborne operations superintendent and noted to be in a normal sinus rhythm. Blood pressure was reevaluated by myself and systolic pressure was above 100. Patient was hydrated with normal saline solution. She was typed and crossed for 2 units of PRBCs. Patient was consented for blood transfusion anticipating the need. Platelet count is 11 with a hemoglobin of 7.9. 2 units PRBC and 2 units plts were ordered. Patient was started on IV Protonix bolus and drip. Patient's INR is noted to be 2.5 and per previous documentation this is related to nutritional deficits. Patient was given 10 mg of IV vitamin K. Based he alcohol on previous blood bank results, blood will need to come from larger blood bank. Patient's case was discussed with the hospitalist service, Dr. Beckford who will evaluate the patient for admission and further managem ent. MONITORING: An order for cardiac monitoring was placed and the patient is noted to be in a NSR at 84 beats per minute. RADIOLOGY: see below EKG:NSR at 78 bpm, normal ST segments, no PVC, no PAC, likely previous septal infarct. QTc 446. Normal axis. DISPOSITION: admit I have personally spent 35 minutes of critical care time in the direct management of this patient. This was a life/limb threatening event. This 35 minutes is in excess of all separately billable procedures. Past Med/Surg History Medical History Acute UTI (urinary tract infection) [place] (acute kidney injury) Asthma Celiac disease Cellulitis Recurrent B/L LE - on prophylactic abx (Follows with Dr. Nielson). on chronic Cephalexin and Doxy Chronic back pain Chronic kidney disease Stage III > follows Dr. Fleming Chronic obstructive pulmonary disease Emphysema Cirrhosis of liver Hx of Hep C with cirrhosis COVID-19 Dehydration Depression Fever History of blood transfusion History of recurrent UTI (urinary tract infection) Hx MRSA infection several yrs ago Hx of cancer of lung s/p radiation (2012), recurrence (2019 in [facility]) s/p radiation- follows with heme/onc Hx of Clostridium difficile infection on Vanco 2x/week for prophylaxis Hx of deep venous thrombosis LLE (1976) Hx of hepatitis C 2013 > "resolved" Hx of non-Hodgkin's lymphoma s/p treatment in 2013 Hydronephrosis b/l chronic hydronephrosis requiring routine stent exchanges Hyperlipidemia Migraine Mood disorder Myelodysplasia (myelodysplastic syndrome) Diagnosed 07/09/21 by bone marrow biopsy. Being treated with Azacitidine and Procrit injections. 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 Pagan Thrombocytopenia Chronic (platelet baseline in the 40-70s over the past few months) Venous stasis dermatitis Surgical History H/O bursectomy Right knee History of bone marrow biopsy History of bronchoscopy History of carpal tunnel release Left History of cystoscopy Multiple Bilateral Retrograde Pyelogram (05/27/21): MAC at [facility] History of esophagogastroduodenoscopy (EGD) History of liver biopsy History of tooth extraction History of ureter stent MULTIPLE Hx of bladder repair surgery FOR PROLAPSE Hx of colonoscopy Hx of tonsillectomy Hx of tubal ligation Family History Unknown Heart disease Hypertension Mother Psoriasis Diabetes Social History Smoking Status: Former smoker Tobacco Type: Cigarettes Cigarettes Per Day: Quit 02/2011; Second Hand Exposure: No; Hx Alcohol Use: No Hx Substance Use: No Preferred Language: Swedish Communication Ability: Effective Visual Impairment: No Limitations Hearing Ability: Normal Grocery Store Associate Required: No Beliefs That Will Affect Care: None marital status: / Current Living Situation: Family Current Living Situation Comment: Son and son's girlfriend current occupational status: retired How many Children do You have: 2 Feels Safe at Home: Yes Assistive Devices: None Allergies Allergies Allergy/AdvReac Type Severity Reaction Status Date / Time bee venom protein (honey bee) Allergy Severe Difficulty Verified 11/26/21 21:14 Breathing adhesive Allergy Intermediate Red torn Verified 11/26/21 21:14 skin Iodinated Contrast Media Allergy Intermediate Hives Verified 11/26/21 21:14 iodine Allergy Intermediate Hives Verified 11/26/21 21:14 levofloxacin Allergy Intermediate numbness/we Verified 11/26/21 21:14 akness pregabalin Allergy Intermediate fever?/?cher Verified 11/26/21 21:14 h strawberry Allergy Intermediate Hives Verified 02/05/22 21:14 Sulfa (Sulfonamide Allergy Intermediate Rash, hives Verified 11/26/21 21:14 Antibiotics) vancomycin Allergy Intermediate Bullous Verified 11/26/21 21:14 skin rash allopurinol Allergy Mild Rash Verified 11/26/21 21:14 ceftriaxone [From Rocephin] Allergy Mild Rash Verified 11/26/21 21:14 piperacillin [From Zosyn] Allergy Mild Rash Verified 11/26/21 21:14 tazobactam [From Zosyn] Allergy Mild Rash Verified 11/26/21 21:14 venlafaxine Allergy Unknown Unknown Verified 11/26/21 21:14 gluten AdvReac Severe Celiac Dz Verified 11/26/21 21:14 = GI symptoms propoxyphene AdvReac Intermediate WAITER/WAITRESS [employer]IN [employer] side Verified 11/26/21 21:14 effects Home Meds Home Medications Medication Instructions Recorded Confirmed cetirizine 10 mg tablet (Zyrtec) 10 mg PO QAM 07/16/18 11/26/21 folic acid 1 mg tablet 1 mg PO QAM 07/16/18 11/26/21 magnesium oxide 400 mg PO QAM 07/16/18 11/26/21 multivitamin 1 tab PO QAM 07/16/18 11/26/21 vitamin B complex (B-Complex) 1 tab PO QAM 07/16/18 11/26/21 calcium carbonate 600 mg-vitamin 1 tab PO QPM 11/26/18 11/26/21 D3 20 mcg (800 unit) tablet (Caltrate with Vitamin D3) cyanocobalamin (vitamin B-12) 1,000 mcg IM MONTHLY 02/10/19 11/26/21 1,000 mcg/mL injection solution ferrous sulfate 325 mg (65 mg 325 mg PO QAM 02/10/19 11/26/21 iron) tablet (iron) vitamin E 400 unit capsule 400 unit PO QAM 08/28/19 11/26/21 Medical Marijuana 1 ml SUBLINGUAL UD PRN 06/27/20 11/26/21 denosumab 60 mg/mL subcutaneous 60 mg SUBCUT .q 6 months ml 12/17/20 11/26/21 syringe (Prolia) acetaminophen 500 mg capsule 500 mg PO QID PRN 01/24/21 11/26/21 L.acidophilus-B.animalis-B.longum 1 cap PO QAM 02/03/21 11/26/21 15 billion cell capsule coQ10 (ubiquinol) 200 mg capsule 200 mg PO QAM 08/10/21 11/26/21 doxycycline hyclate 100 mg capsule 100 mg PO QDD 08/10/21 11/26/21 cephalexin 500 mg capsule 500 mg PO QDD 10/12/21 11/26/21 diphenhydramine HCl 25 mg capsule 25 mg PO Q6H PRN 10/31/21 11/26/21 (Benadryl) acyclovir 400 mg tablet 400 mg PO AMHS 11/17/21 11/26/21 topiramate 100 mg tablet (Topamax) 100 mg PO QAM 11/17/21 11/26/21 topiramate 200 mg tablet (Topamax) 200 mg PO HS 11/17/21 11/26/21 vancomycin 125 mg capsule 125 mg PO 2XWK 11/17/21 11/26/21 ergocalciferol (vitamin D2) 1,250 50,000 unit PO WK 11/26/21 11/26/21 mcg (50,000 unit) capsule phenazopyridine 200 mg tablet 200 mg PO BID PRN 11/26/21 11/26/21 (Pyridium) Previous Rx's Medication Instructions Recorded albuterol sulfate 90 mcg/actuation 2 puff INHALATION QID PRN #8.5 gm 04/22/21 aerosol inhaler (ProAir HFA) metoprolol succinate 50 mg 25 mg PO QAM #45 tab 05/23/21 tablet,extended release 24 hr Auto Titrating CPAP #1 ea 06/01/21 CPAP Supplies #1 ea 06/01/21 methocarbamol 750 mg tablet 750 mg PO BID PRN #60 tab 06/21/21 rizatriptan 10 mg tablet 10 mg PO DAILY PRN #9 tab 06/21/21 oxybutynin chloride 10 mg 10 mg PO QAM #90 tab 07/14/21 tablet,extended release 24 hr mirabegron 50 mg tablet,extended 50 mg PO HS #90 tab 07/25/21 release 24 hr (Myrbetriq) gabapentin 400 mg capsule 400 mg PO QAM 30 Days #30 cap 08/11/21 (Neurontin) potassium chloride 20 mEq 20 meq PO QAM #30 tab 08/11/21 tablet,extended release oxycodone 5 mg tablet 5 mg PO Q4H PRN #20 tab 08/18/21 budesonide-formoterol HFA 80 2 puff INHALATION BID #3 inhaler 08/22/21 mcg-4.5 mcg/actuation aerosol inhaler (Symbicort) clonazepam 1 mg tablet 0.5 mg PO HS #30 tab 08/22/21 quetiapine 50 mg tablet (Seroquel) 50 mg PO HS #30 tab 08/22/21 opybdphror-qbtihyncrxjmo-ihljrokx 1 tab PO DAILY PRN 30 Days #12 tab 09/27/21 50 mg-325 mg-40 mg tablet (Esgic) sertraline 50 mg tablet (Zoloft) 50 mg PO HS #30 tab 10/03/21 triamcinolone acetonide 0.025 % 1 applic TOPICAL BID PRN #80 g 10/17/21 topical cream Results & Data (ED) Vital Signs Vital Signs - 24 hr 11/26/21 20:35 11/26/21 21:51 Temperature 36.5 C Temperature Source Temporal Artery Scan Pulse Rate 99 H 84 Pulse Rate [Apical] 84 Pulse Rhythm Regular Respiratory Rate 18 20 Respiratory Effort / Characteristics Non-Labored Spontaneous Respiratory Depth Normal Blood Pressure 96/33 L Blood Pressure [Right Arm] 108/57 L Blood Pressure Mean 54 Blood Pressure Mean [Right Arm] 74 Blood Pressure Position [Right Arm] Lying Pulse Oximetry 93 96 Oxygen Delivery Method Room Air Room Air Sepsis Recent Fever Within 48 Hours No Sepsis New/Unexplained Change in Mental Status No Sepsis Action Taken by Nursing No Action Required Home Medications Current Medication List: was personally reviewed by me Laboratory Data Attestation: I reviewed the patient's lab results. Result diagrams: 11/26/21 21:18 11/26/21 21:18 Lab Results 11/26/21 11/26/21 11/26/21 Range/Units 21:18 21:18 21:18 WBC 1.24 L (4.8-10.8) K/uL RBC 3.11 L (4.2-5.4) M/uL Hgb 7.9 L (12.0-16.0) g/dL Hct 25.4 L (37-47) % MCV 81.7 (80-100) fL MCH 25.4 (25-34) pg MCHC 31.1 L (32-36) g/dL RDW Std Deviation 60.2 H (36.4-46.3) fL RDW Coeff of Irasema 20.7 H (11.5-14.5) % Plt Count 11 L* (130-400) K/uL Absolute Nucleated RBC 0.10 H (0-0) K/uL Nucleated RBC % (auto) 8.4 % Neutrophils % (Manual) 29.1 % Lymphocytes % (Manual) 35.5 % Reactive Lymphs % (Man) 26.4 % Monocytes % (Manual) 4.5 % Myelocytes % (Man) 2.7 % Blast Cells % (Manual) 1.8 % Neutrophils # (Manual) 0.36 L (1.4-6.5) K/uL Total Absolute Neuts 0.36 L* (1.4-6.5) K/uL Lymphocytes # (Manual) 0.44 L (1.2-3.4) K/uL Reactive Lymphs # 0.33 K/uL Total Abs Lymphocytes 0.77 L (1.2-3.4) K/uL Monocytes # (Manual) 0.06 L (0.11-0.59) K/uL Myelocytes # (Manual) 0.03 H (0-0) K/uL Blast Cells # (Man) 0.02 H (0-0) K/uL Toxic Granulation 2+ Platelet Estimate SIGNIFIC DECREASED (Normal) Polychromasia 1+ Anisocytosis Present Schistocytes 1+ PT 23.4 H (9.0-12.0) Seconds INR 2.5 H (0.9-1.1) APTT 77.2 H* (21.0-31.0) Seconds PTT Ratio 2.9 Sodium (136-145) mmol/L Potassium (3.5-5.1) mmol/L Chloride (98-107) mmol/L Carbon Dioxide (21-32) mmol/L Anion Gap (3-11) BUN (6-23) mg/dl Creatinine (0.6-1.2) mg/dl Est Cr Clr Drug Dosing Est GFR ( Amer) ml/min Est GFR (Non-Af Amer) ml/min BUN/Creatinine Ratio (10-20) Glucose (70-99(Fasting)) mg/dl Calcium (8.5-10.1) mg/dl Total Bilirubin (0.2-1.0) mg/dl AST (13-39) U/L ALT (7-52) U/L Alkaline Phosphatase (34-104) U/L Total Protein (6.0-8.3) gm/dl Albumin (3.4-5.0) gm/dl Globulin (2.5-4.0) gm/dl Albumin/Globulin Ratio (0.9-2) SARS-CoV-2, RNA, NAAT (NEGATIVE) Crossmatch See Detail 11/26/21 11/26/21 Range/Units 21:18 Unknown WBC (4.8-10.8) K/uL RBC (4.2-5.4) M/uL Hgb (12.0-16.0) g/dL Hct (37-47) % MCV (80-100) fL MCH (25-34) pg MCHC (32-36) g/dL RDW Std Deviation (36.4-46.3) fL RDW Coeff of Irasema (11.5-14.5) % Plt Count (130-400) K/uL Absolute Nucleated RBC (0-0) K/uL Nucleated RBC % (auto) % Neutrophils % (Manual) % Lymphocytes % (Manual) % Reactive Lymphs % (Man) % Monocytes % (Manual) % Myelocytes % (Man) % Blast Cells % (Manual) % Neutrophils # (Manual) (1.4-6.5) K/uL Total Absolute Neuts (1.4-6.5) K/uL Lymphocytes # (Manual) (1.2-3.4) K/uL Reactive Lymphs # K/uL Total Abs Lymphocytes (1.2-3.4) K/uL Monocytes # (Manual) (0.11-0.59) K/uL Myelocytes # (Manual) (0-0) K/uL Blast Cells # (Man) (0-0) K/uL Toxic Granulation Platelet Estimate (Normal) Polychromasia Anisocytosis Schistocytes PT (9.0-12.0) Seconds INR (0.9-1.1) APTT (21.0-31.0) Seconds PTT Ratio Sodium 137 (136-145) mmol/L Potassium 4.4 (3.5-5.1) mmol/L Chloride 107 (98-107) mmol/L Carbon Dioxide 22 (21-32) mmol/L Anion Gap 8 (3-11) BUN 35 H (6-23) mg/dl Creatinine 1.26 H (0.6-1.2) mg/dl Est Cr Clr Drug Dosing Not Reportable Est GFR ( Amer) 51.4 ml/min Est GFR (Non-Af Amer) 44.4 ml/min BUN/Creatinine Ratio 27.8 H (10-20) Glucose 121 H (70-99(Fasting)) mg/dl Calcium 8.9 (8.5-10.1) mg/dl Total Bilirubin 0.7 (0.2-1.0) mg/dl AST 12 L (13-39) U/L ALT 15 (7-52) U/L Alkaline Phosphatase 84 (34-104) U/L Total Protein 6.2 (6.0-8.3) gm/dl Albumin 3.4 (3.4-5.0) gm/dl Globulin 2.8 (2.5-4.0) gm/dl Albumin/Globulin Ratio 1.2 (0.9-2) SARS-CoV-2, RNA, NAAT POSITIVE A* (NEGATIVE) Crossmatch Administered Medications Pantoprazole Sodium 40 mg/ (Dextrose) 100 mls @ 20 mls/hr IV Q5H BIRDIE Stop: 12/26/21 21:29 Last Admin: 11/26/21 21:41 Dose: 8 mg/hr, 20 mls/hr Documented by: [id number] Discontinued Medications Sodium Chloride (Nss 1000ml) 1,000 mls @ 999 mls/hr IV .Q1H1M BIRDIE Stop: 11/26/21 21:45 Last Infusion: 11/26/21 22:39 Dose: 0 mls/hr Documented by: [id number] Admin: 11/26/21 21:30 Dose: 999 mls/hr Documented by: [id number] Pantoprazole Sodium (Protonix Bolus/Drip) 0 mls @ 1 mls/hr IV ONE STA Stop: 11/26/21 21:10 Last Admin: 11/26/21 21:54 Dose: Not Given Documented by: [id number] Pantoprazole Sodium 80 mg/ (Dextrose) 120 mls @ 400 mls/hr IV NOW ONE Stop: 11/26/21 21:26 Last Infusion: 11/26/21 22:43 Dose: 0 mls/hr Documented by: [id number] Admin: 11/26/21 21:41 Dose: 400 mls/hr Documented by: [id number] Imaging Data Radiologist's Impression: Chest X-Ray 11/26/21 20:45 SINGLE VIEW CHEST CLINICAL HISTORY: Unspecified bleeding. Lung cancer. FINDINGS: An AP, portable, upright chest radiograph is compared to study dated 11/17/2021 and correlated with chest CT dated 08/01/2021 and PET/CT dated 02/02/2021. The cardiomediastinal silhouette is unremarkable noting atherosclerotic calcification of the thoracic aorta. Advanced emphysema and chronic interstitial thickening is similar to previous. Parenchyma scarring in the right upper lobe is unchanged. There are mild bibasilar airspace opacities. No large pleural effusion or pneumothorax is identified. The skeletal structures are osteopenic. Thickening and sclerosis of the right anterior upper ribs is similar to previous. There is chronic posttraumatic deformity of the left proximal humerus. IMPRESSION: 1. There are mild bibasilar airspace opacities. Left basilar opacities are new from previous. Correlate clinically for evidence of an infectious/inflammatory pneumonitis. 2. Emphysema with chronic and treatment related changes as above. ACT 112: Negative or not required by law. Electronically signed by: Zohaib Montoya M.D. 11/26/2021 10:13 PM Blood Pressure Blood Pressure Findings: Low blood pressure Blood Pressure Disposition: further management by hospitalist Discharge Plan Visit Data Chief Complaint: Bleeding Stated Complaint: BLEEDING FROM MOUTH AND NOSE, COVID+ 11/17 ED Provider: Muna Bazzi Discharge Problem: UGIB (upper gastrointestinal bleed), MDS (myelodysplastic syndrome), Anemia, Neutropenia, COVID-19 Forms Stand Alone Forms: [employer] Prescriptions Prescriptions: No Action Prolia 60 mg/mL syringe 60 mg subcut .q 6 months RF: 0 calcium carbonate-vitamin D3 [Caltrate with Vitamin D3] 600 mg(1,500mg) -800 unit tablet 1 tab PO QPM RF: 0 albuterol sulfate [ProAir HFA] 90 mcg/actuation HFA aerosol inhaler 2 puff INHALATION QID PRN (Reason: Wheezing) Qty: 8.5 RF: 5 metoprolol succinate 50 mg tablet extended release 24 hr 25 mg PO QAM Qty: 45 RF: 3 rizatriptan 10 mg tablet 10 mg PO DAILY PRN (Reason: Migraine Headache) Qty: 9 RF: 5 methocarbamol 750 mg tablet 750 mg PO BID PRN (Reason: Pain) Qty: 60 RF: 5 oxybutynin chloride 10 mg tablet extended release 24hr 10 mg PO QAM Qty: 90 RF: 1 Myrbetriq 50 mg tablet extended release 24 hr 50 mg PO HS Qty: 90 RF: 3 gabapentin [Neurontin] 400 mg capsule 400 mg PO QAM 30 Days Qty: 30 RF: 3 potassium chloride 20 mEq tablet extended release 20 meq PO QAM Qty: 30 RF: 5 quetiapine [Seroquel] 50 mg tablet 50 mg PO HS Qty: 30 RF: 5 clonazepam 1 mg tablet 0.5 mg PO HS Qty: 30 RF: 2 budesonide-formoterol [Symbicort] 80-4.5 mcg/actuation HFA aerosol inhaler 2 puff inhalation BID Qty: 3 RF: 3 arbddtnldr-iadhqgbiggcey-oehp [Esgic] 50-325-40 mg tablet 1 tab PO DAILY PRN (Reason: HEADACHES) 30 Days Qty: 12 RF: 0 sertraline [Zoloft] 50 mg tablet 50 mg PO HS Qty: 30 RF: 11 (DME) Auto Titrating CPAP Misc See Rx Instructions .ROUTE .MEDSUPPLY Qty: 1 RF: 0 (DME) CPAP Supplies Misc See Rx Instructions .ROUTE .MEDSUPPLY Qty: 1 RF: 0 cyanocobalamin (vitamin B-12) 1,000 mcg/mL Solution 1,000 mcg IM MONTHLY RF: 0 ferrous sulfate [iron] 325 mg (65 mg iron) Tablet 325 mg PO QAM RF: 0 vitamin E 400 unit Capsule 400 unit PO QAM RF: 0 multivitamin Tablet 1 tab PO QAM RF: 0 cetirizine [Zyrtec] 10 mg Tablet 10 mg PO QAM RF: 0 vitamin B complex [B-Complex] Tablet 1 tab PO QAM RF: 0 folic acid 1 mg Tablet 1 mg PO QAM RF: 0 magnesium oxide 400 mg Capsule 400 mg PO QAM RF: 0 Medical Marijuana 1 ml sublingual UD PRN (Reason: Pain) RF: 0 coQ10 (ubiquinol) 200 mg Capsule 200 mg PO QAM RF: 0 doxycycline hyclate 100 mg capsule 100 mg PO QDD RF: 0 oxycodone 5 mg tablet 5 mg PO Q4H PRN (Reason: pain) Qty: 20 RF: 0 phenazopyridine [Pyridium] 200 mg tablet 200 mg PO BID PRN (Reason: BLADDER PAIN) RF: 0 ergocalciferol (vitamin D2) 1,250 mcg (50,000 unit) capsule 50,000 unit PO WK RF: 0 acetaminophen 500 mg Capsule 500 mg PO QID PRN (Reason: Pain) RF: 0 L.acidoph-B.animalis-B.longum 15 billion cell Capsule 1 cap PO QAM RF: 0 cephalexin 500 mg capsule 500 mg PO QDD RF: 0 triamcinolone acetonide 0.025 % Cream 1 applic TOPICAL BID PRN (Reason: Skin Irritation) Qty: 80 RF: 0 diphenhydramine HCl [Benadryl] 25 mg Capsule 25 mg PO Q6H PRN (Reason: Allergic Symptoms) RF: 0 acyclovir 400 mg tablet 400 mg PO AMHS RF: 0 topiramate [Topamax] 100 mg tablet 100 mg PO QAM RF: 0 topiramate [Topamax] 200 mg Tablet 200 mg PO HS RF: 0 vancomycin 125 mg capsule 125 mg PO 2XWK RF: 0 Referrals Referrals: Reynold Villegas MD [Primary Care Provider] - Discharge Problem: Anemia Qualifiers: Anemia type: bone marrow failure Bone marrow failure anemia type: other bone marrow failure Qualified Code(s): D61.89 - Other specified aplastic anemias and other bone marrow failure syndromes Neutropenia Qualifiers: Neutropenia type: other Qualified Code(s): D70.8 - Other neutropenia
--- NOTE | 2021-11-26 22:30 | History & Physical Report ---
Date of Service November 26, 2021 Assessment & Plan (1) UGIB (upper gastrointestinal bleed): Plan: Aleja Duron is a 66-year-old female with a history of HCV-induced cirrhosis s/p treatment with EGD last in 10/2019 not demonstrating varices (PSH - Dr. 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 She was found to have significant coagulopathy and thrombocytopenia on arrival. Suspected UGIB - History primarily concerning for hematemesis/UGIB based on recent odynophagia, "spitting up blood" (non-projectile), nausea, decreased appetite. However, patient's history could also be c/w hemoptysis. - Known history of HCV-induced cirrhosis. Last EGD seems to be 10/2019, per Dr. Chavez's PSH note, which did NOT reveal any esophageal varices; did show Z-line irregularities and esophageal plaques c/w candidiasis - In setting of significant coagulopathy (INR 2.5, PTT 77.2, Plt 11) -- notably progressed since prior admission - Hgb 7.9 on arrival. Hemodynamically stable on arrival. Monitor. - Received PPI bolus in ED, will continue pantoprazole gtt - Make NPO now - Place 2-large bore IVs - Consult GI: appreciate assistance + technical expertise with EGD - No evidence of esophageal varices on last EGD in 2019 - hold from initiation of octreotide from now - Will consult oven tender bagels for ICU placement. Given patient's significant coagulopathy, frail state, and suspected hematemesis, strong concern for airway protection / hemorrhage requiring intensive monitoring - Should blood be required immediately, blood bank does have emergency-use blood (2U) - 2U are ordered from [facility] that are matched to patient's blood type / Ig's -- unfortunately will not arrive until ~afternoon of 11/27 - If emergent utilization of blood required, may require transfer to tertiary care facility with larger blood bank given limitations here and patient's difficult Ig situation - Consider TXA if needed Coagulopathy / Thrombocytopenia - Admission labs concerning for INR 2.5 / PTT 77.2 / PLT 11 in setting of H&H 7.9 on arrival - notably worse from previous - Etiology of increased INR / PTT unclear -- in setting of active bleed, suspect consumptive coagulopathy, however source unclear: concern for DIC, sepsis, COVID; lower suspicion for TTP - s/p Vitamin K 10mg IV x 1 in the ER -- may want to consider additional doses moving forward - Obtain fibrinogen/D-dimer to further characterize - BCX, UCX pending - Give FFP x 2, give platelets x 2 Pancytopenia - On arrival: patient was found to be persistently leukopenic to 1.24 and neutropenic to 0.36; she was also anemic to 7.9, thrombocytopenic to 11 - Patient with known history of severe pancytopenia secondary to MDS that arose from treatment of marginal zone lymphoma, SCLC - Give Neuopgen x 1 - Plt being administered, as above - May want to consider additional doses of Procrit once reticulocyte count returns Acute Hypoxic Respiratory Failure - Upon arrival here, patient did not have O2 requirement -- however, shortly into her course, did begin desaturating into 70-80s requiring NC/OxyMask - ABG obtained shortly after demonstrating acidemia to 7.23 without hypercapnia; +adequate oxygenation with O2 therapy - Cause unclear as of present: due to anemia? aspiration? atelectasis? COVID-19? bacterial PNA? Appears euvolemic. - Patient did again test positive for COVID-19 on arrival - initially tested positive approx. 7-8 days prior - CXR demonstrating new L basilar opacities with emphysema - Obtain procal, sputum culture, MRSA swab - Consider initiation of ABX or dexamethasone for COVID-19 pending above results, repeat CXR, respiratory status COVID-19 - Patient recently tested positive again for COVID-19, first time approx. ~7 da ys ago at the end of October - During last hospitalization, was not hypoxic and therefore was not started on dexamethasone / remdesivir - AHRF management, as above; working with ICU, may consider initiation of steroids - Isolation precautions Acute Kidney Injury - Has history of CKD with creatinine baseline around 0.7 - 0.9 - On arrival, patient found to have BUN 35 / Cr 1.26 - Suspect largely prerenal in the setting of suspected hemorrhage, as above - Continue mIVF, transfusions p.r.n. - Monitor BMP History of Hydronephrosis with Ureteral Stent Placement - Recent history of ureteral stents placed in 07/2021 and 09/2021 (exchanged) - Unfortunately, had associated UTI that grew ESBL Klebsiella, alongside Rachelle glabrata - Obtain UCX given patient's toxic presentation - Consider addition of ABX moving forward p.r.n. Obstructive Sleep Apnea - Utilizes CPAP qHS -- utilize while here History of C. difficile Infection - Patient reported 2 episodes of bowel incontinence earlier today, unusual for her -- however fine before. ?effect of GIB. - On chronic vancomycin suppressive therapy -- should plan to continue once appropriate while here once again PO Code: Full code on admission Dispo: To ICU Diet: NPO PPX: SCDs for now, stop if bruising; pharmacologic PPX contraindicated in setting of coagulopathy (2) COVID-19: (3) Neutropenia: (4) Chronic kidney disease: (5) Pancytopenia: (6) MDS (myelodysplastic syndrome): (7) Anemia: (8) Stroke: (9) Migraine: (10) Celiac disease: (11) Prothrombin [id number] mutation: (12) Chronic back pain: (13) Urge and stress incontinence: (14) COPD (chronic obstructive pulmonary disease): (15) Hx of Clostridium difficile infection: (16) Cirrhosis of liver: History of Present Illness Primary Care Provider: Reynold Villegas MD Aleja Duron is a 66-year-old female with a history of HCV-induced cirrhosis s/p treatment with EGD last in 10/2019 not demonstrating varices (PSH - Dr. 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 requiring regular Procrit/Neuopgen, SACHA, urinary incontinence, COPD, prothrombin factor II mutation, celiac disease, previous CVA, recurrent cellulitis requiring chronic doxycycline, frequent UTI with previous bouts including ESBL Klebsiella and Rachelle, s/p bilateral urinary stent placements recently exchanged in 09/2021 who was recently discharged on 11/22 sepsis thought to be due to COVID-19 (consideration also given to urinary source, but UCx given negative) who presents to [facility] for evaluation of spitting up blood and epistaxis. She reports that she has continued to feel fatigue since her hospital discharge. She also said that she has not had an appetite. Earlier today, she reports having 2 bouts of bowel incontinencewhich is very unusual for her. She says that, at baseline, she takes oral iron so her stools always look more darkly discolored. However, between 1300 and 1900, patient had multiple episodes of feeling ill and "bringing clots up." She said that her nose was also bleeding around this time. She says that her throat has been hurting; it has been difficult to eat/drink because of this. When asked if she thought she coughed up the blood or vomited up the blood, she was not quite sure, but thinks it was more likely vomit like in origin. She denies syncope, but endorses fatigue. No shortness of breath. No chest pain. No changes in medications within the last several days; does endorse getting Procrit on Sunday (6 days ago). In the ER, patient was found to be persistently leukopenic to 1.24 and neutropenic to 0.36; she was also anemic to 7.9, thrombocytopenic to 11 (14 at previous discharge). PTT 77.2, INR 2.5. She was noted to have mild AURORA BUN 35/creatinine 1.26. She also retested positive again for COVID-19. Her chest x-ray did demonstrate bilateral airspace opacities and chronic emphysema; L- sided opacities are new. She was given a bolus of normal saline, started on Protonix. Allergies Allergy/AdvReac Type Severity Reaction Status Date / Time bee venom protein (honey bee) Allergy Severe Difficulty Verified 11/26/21 21:14 Breathing adhesive Allergy Intermediate Red torn Verified 11/26/21 21:14 skin Iodinated Contrast Media Allergy Intermediate Hives Verified 11/26/21 21:14 iodine Allergy Intermediate Hives Verified 11/26/21 21:14 levofloxacin Allergy Intermediate numbness/we Verified 11/26/21 21:14 akness pregabalin Allergy Intermediate fever?/?cher Verified 11/26/21 21:14 h strawberry Allergy Intermediate Hives Verified 11/26/21 21:14 Sulfa (Sulfonamide Allergy Intermediate Rash, hives Verified 11/26/21 21:14 Antibiotics) vancomycin Allergy Intermediate Bullous Verified 11/26/21 21:14 skin rash allopurinol Allergy Mild Rash Verified 11/26/21 21:14 ceftriaxone [From Rocephin] Allergy Mild Rash Verified 11/26/21 21:14 piperacillin [From Zosyn] Allergy Mild Rash Verified 11/26/21 21:14 tazobactam [From Zosyn] Allergy Mild Rash Verified 11/26/21 21:14 venlafaxine Allergy Unknown Unknown Verified 11/26/21 21:14 gluten AdvReac Severe Celiac Dz Verified 11/26/21 21:14 = GI symptoms propoxyphene AdvReac Intermediate PREFITTER side Verified 11/26/21 21:14 effects Home Medications Medication Instructions Recorded Confirmed Type cetirizine 10 mg tablet (Zyrtec) 10 mg PO QAM 07/16/18 11/26/21 History folic acid 1 mg tablet 1 mg PO QAM 07/16/18 11/26/21 History magnesium oxide 400 mg PO QAM 07/16/18 11/26/21 History multivitamin 1 tab PO QAM 07/16/18 11/26/21 History vitamin B complex (B-Complex) 1 tab PO QAM 07/16/18 11/26/21 History calcium carbonate 600 mg-vitamin 1 tab PO QPM 11/26/18 11/26/21 History D3 20 mcg (800 unit) tablet (Caltrate with Vitamin D3) cyanocobalamin (vitamin B-12) 1,000 mcg IM MONTHLY 02/10/19 11/26/21 History 1,000 mcg/mL injection solution ferrous sulfate 325 mg (65 mg 325 mg PO QAM 02/10/19 11/26/21 History iron) tablet (iron) vitamin E 400 unit capsule 400 unit PO QAM 08/28/19 11/26/21 History Medical Marijuana 1 ml SUBLINGUAL UD PRN 06/27/20 11/26/21 History denosumab 60 mg/mL subcutaneous 60 mg SUBCUT .q 6 months ml 12/17/20 11/26/21 History syringe (Prolia) acetaminophen 500 mg capsule 500 mg PO QID PRN 01/24/21 11/26/21 History L.acidophilus-B.animalis-B.longum 1 cap PO QAM 02/03/21 11/26/21 History 15 billion cell capsule albuterol sulfate 90 mcg/actuation 2 puff INHALATION QID PRN #8.5 gm 04/22/21 11/26/21 Rx aerosol inhaler (ProAir HFA) metoprolol succinate 50 mg 25 mg PO QAM #45 tab 05/23/21 11/26/21 Rx tablet,extended release 24 hr Auto Titrating CPAP #1 ea 06/01/21 10/24/21 Rx CPAP Supplies #1 ea 06/01/21 10/24/21 Rx methocarbamol 750 mg tablet 750 mg PO BID PRN #60 tab 06/21/21 11/26/21 Rx rizatriptan 10 mg tablet 10 mg PO DAILY PRN #9 tab 06/21/21 11/26/21 Rx oxybutynin chloride 10 mg 10 mg PO QAM #90 tab 07/14/21 11/26/21 Rx tablet,extended release 24 hr mirabegron 50 mg tablet,extended 50 mg PO HS #90 tab 07/25/21 11/26/21 Rx release 24 hr (Myrbetriq) coQ10 (ubiquinol) 200 mg capsule 200 mg PO QAM 08/10/21 11/26/21 History doxycycline hyclate 100 mg capsule 100 mg PO QDD 08/10/21 11/26/21 History gabapentin 400 mg capsule 400 mg PO QAM 30 Days #30 cap 08/11/21 11/26/21 Rx (Neurontin) potassium chloride 20 mEq 20 meq PO QAM #30 tab 08/11/21 11/26/21 Rx tablet,extended release oxycodone 5 mg tablet 5 mg PO Q4H PRN #20 tab 08/18/21 11/26/21 Rx budesonide-formoterol HFA 80 2 puff INHALATION BID #3 inhaler 08/22/21 11/26/21 Rx mcg-4.5 mcg/actuation aerosol inhaler (Symbicort) clonazepam 1 mg tablet 0.5 mg PO HS #30 tab 08/22/21 11/26/21 Rx quetiapine 50 mg tablet (Seroquel) 50 mg PO HS #30 tab 08/22/21 11/26/21 Rx yltdkteryi-krzowomisyezs-pnqlwqlh 1 tab PO DAILY PRN 30 Days #12 tab 09/27/21 11/26/21 Rx 50 mg-325 mg-40 mg tablet (Esgic) sertraline 50 mg tablet (Zoloft) 50 mg PO HS #30 tab 10/03/21 11/26/21 Rx cephalexin 500 mg capsule 500 mg PO QDD 10/12/21 11/26/21 History triamcinolone acetonide 0.025 % 1 applic TOPICAL BID PRN #80 g 10/17/21 11/26/21 Rx topical cream diphenhydramine HCl 25 mg capsule 25 mg PO Q6H PRN 10/31/21 11/26/21 History (Benadryl) acyclovir 400 mg tablet 400 mg PO AMHS 11/17/21 11/26/21 History topiramate 100 mg tablet (Topamax) 100 mg PO QAM 11/17/21 11/26/21 History topiramate 200 mg tablet (Topamax) 200 mg PO HS 11/17/21 11/26/21 History vancomycin 125 mg capsule 125 mg PO 2XWK 11/17/21 11/26/21 History ergocalciferol (vitamin D2) 1,250 50,000 unit PO WK 11/26/21 11/26/21 History mcg (50,000 unit) capsule phenazopyridine 200 mg tablet 200 mg PO BID PRN 11/26/21 11/26/21 History (Pyridium) Past Med/Surg History Medical History Acute UTI (urinary tract infection) AURORA (acute kidney injury) Asthma Celiac disease Cellulitis Recurrent B/L LE - on prophylactic abx (Follows with Dr. Nielson). on chronic Cephalexin and Doxy Chronic back pain Chronic kidney disease Stage III > follows Dr. Fleming Chronic obstructive pulmonary disease Emphysema Cirrhosis of liver Hx of Hep C with cirrhosis COVID-19 Dehydration Depression Fever History of blood transfusion History of recurrent UTI (urinary tract infection) Hx MRSA infection several yrs ago Hx of cancer of lung s/p radiation (2012), recurrence (2019 in [facility]) s/p radiation- follows with heme/onc Hx of Clostridium difficile infection on Vanco 2x/week for prophylaxis Hx of deep venous thrombosis LLE (1976) Hx of hepatitis C 2013 > "resolved" Hx of non-Hodgkin's lymphoma s/p treatment in 2014 Hydronephrosis b/l chronic hydronephrosis requiring routine stent exchanges Hyperlipidemia Migraine Mood disorder Myelodysplasia (myelodysplastic syndrome) Diagnosed 07/09/21 by bone marrow biopsy. Being treated with Azacitidine and Procrit injections. Neutropenic fever Obstructive sleep apnea 1L O2 HS Osteoporosis Poor historian R/t hx stroke Prediabetes diet control Prothrombin [id number] mutation "Factor 2 mutation" on Lovenox (lifelong), follows with [facility] Psoriasis Radiation pneumonitis Stroke 1996, residual decreased right sided sensation, memory impairment, follows with Dr. Pagan Thrombocytopenia Chronic (platelet baseline in the 40-70s over the past few months) Venous stasis dermatitis Surgical History H/O bursectomy Right knee History of bone marrow biopsy History of bronchoscopy History of carpal tunnel release Left History of cystoscopy Multiple Bilateral Retrograde Pyelogram (05/27/21): [facility] at [facility] History of esophagogastroduodenoscopy (EGD) History of liver biopsy History of tooth extraction History of ureter stent MULTIPLE Hx of bladder repair surgery FOR PROLAPSE Hx of colonoscopy Hx of tonsillectomy Hx of tubal ligation Family History Unknown Heart disease Hypertension Mother Psoriasis Diabetes Social History Smoking Status: Former smoker Tobacco Type: Cigarettes Cigarettes Per Day: Quit 02/2011; Second Hand Exposure: No; Hx Alcohol Use: No Hx Substance Use: No Preferred Language: Guamanian Communication Ability: Unable Visual Impairment: No Limitations Hearing Ability: Normal [employer] Required: No Beliefs That Will Affect Care: None marital status: / Current Living Situation: Family Current Living Situation Comment: Son and son's girlfriend current occupational status: retired How many Children do You have: 1 Other Information That Helps Us Care for You: No Feels Safe at Home: Yes Safety Concerns: Feels Safe At This Time Assistive Devices: CPAP Review of Systems Review of Systems: as per HPI Physical Exam Physical Exam: General: Ill and pale appearing 66-year-old female who is lying back in her hospital bed in mild distress secondary to abdominal discomfort. HEENT: Trachea midline. Examination of the mouth does reveal dried blood over the teeth. No JVD. Cardiac: Normal rate, regular rhythm, S1 and S2 are present without murmurs rubs or gallops Pulmonary: Easy respiratory effort with symmetric stench of the chest. Lungs are clear to auscultation bilaterally without crackles or wheezes. Abdominal: There is mild epigastric discomfort that extends into the left upper quadrant. No rebound or guarding. Extremities: No evidence of peripheral edema. Results & Data Results & Data ([facility]) Vital Signs (Past 12 Hours) Vital Signs Temp Pulse Pulse Resp BP BP Pulse Ox 11/26/21 21:51 84 84 20 108/57 L 96 11/26/21 20:35 36.5 C 99 H 18 96/33 L 93 Critical Care Time 65 minutes Supervising Physician Co-Signing Physician Notes Attending addendum: I have physically seen this patient, have supervised the medical residents activities, and agree with the H&P unless as otherwise noted. Assessment and Plan: Bleeding via mouth and nose/pancytopenia/myelodysplastic syndrome Hematemesis more likely than hemoptysis NPO Continue Protonix drip begun in the ED Transfusing 2 units platelets, and 2 units FFP. Order for 2 units PRBCs placed, however, patient has significant number of antibodies and blood will be not be available until the following morning We will transfuse O- blood if emergently needed overnight Given vitamin K 10 mg IV in addition to transfusions above, for coagulopathy manifested as INR of 2.5 and PTT of 77.2 H&H every 6 hours. Repeat PT/INR/PTT in 4 hours and then serially as indicated Patient briefly hypotensive in the ED, did respond to IV fluid rehydration ICU has been consulted, patient will be admitted to the ICU If patient becomes hypotensive, in spite of both treatments, and prior to PRBCs being available transfused, will need to be placed on Levophed Consult gastroenterology Acute respiratory failure with hypoxia/recent COVID-19 infection- Patient not a candidate for remdesivir or antibodies, and would be concerned about placing on steroids due to present GI bleeding Titrating from nasal cannula oxygen to heated high flow. Try to avoid mask due to recent episode of hematemesis, which patient did bring up clots while in the ED History of ureteral stent and hydronephrosis/ESBL Klebsiella Follow urine culture and sensitivity Continue IV fluids History of C. difficile infection- Has been on chronic vancomycin suppression therapy Continue as able to with respiratory failure and supply of oxygen Remaining orders and notations as noted Resident Activity Tracking Resident Involvement: Resident Care Provided Care Provided: Adult Hospital Medicine (1) Anemia Anemia type: bone marrow failure Bone marrow failure anemia type: other bone marrow failure Qualified Code(s): D61.89 - Other specified aplastic anemias and other bone marrow failure syndromes (2) Neutropenia Neutropenia type: other Qualified Code(s): D70.8 - Other neutropenia
[2021-11-26] MEDS ORDERED: FILGRASTIM 480 MCG/1.6 ML VIAL SC ONE (23:25)
[2021-11-27] MEDS ORDERED: ACETAMINOPHEN 1000 MG/100 ML IV IV ONE (00:17)
[2021-11-27 00:26] LABS: iSTAT Arterial Blood Gas HCO3 13 meg/L (19-24); iSTAT Arterial Blood Gas pCO2 32 mmHg (35-46); iSTAT Arterial Blood Gas pH 7.23 (7.35-7.45); iSTAT Arterial Blood Gas pO2 125 mmHg (80-95); iSTAT Carbon Dioxide 14 mmol/L (24-31)
[2021-11-27] MEDS ORDERED: SODIUM BICARBONATE 8.4% 100 MEQ in WATER, STERILE 1,000 ML IV SCH (00:30)
[2021-11-27 01:32] LABS: Hematocrit (blood only) 28.9 % (37-47)
[2021-11-27] MEDS ORDERED: TRIAMCINOLONE ACET 0.025% CR 15 GM TUBE TOP PRN (02:26)
[2021-11-27] MEDS ORDERED: RIZATRIPTAN BENZOATE 10 MG TAB PO PRN (02:26)
[2021-11-27] MEDS ORDERED: STAT IV Infusion **Titration per Protocol STA (02:29)
[2021-11-27] MEDS: NOREPINEPHRINE/D5W 8 MG/508 ML BAG IV SCH ×2 (02:30→16:49)
[2021-11-27] MEDS ORDERED: ALBUTEROL HFA 8 GM INHALER INH PRN (02:35)
[2021-11-27] MEDS ORDERED: PATIENT'S HEIGHT AND/OR WEIGHT NEEDED SCH (02:45)
[2021-11-27 03:01] LABS: Reticulocyte % 1.5 % (0.5-2.0); Reticulocytes # 0.05 10^6/uL (0.02-0.10)
--- NOTE | 2021-11-27 03:01 | Procedure Note ---
Procedure Note Date of Service November 27, 2021 Note Procedure: Arterial Line Placement Attending: Dr. Thompson APC: James Reed PA-C Indication: Hemodynamic monitoring Anesthesia: Lidocaine 1% Emergent Consent implied in the setting of clinical deterioration and need for close hemodynamic monitoring, ABG monitoring, frequent lab draws, etc. A time-out was completed verifying correct patient, procedure, site, positioning, and implant(s) or special equipment if applicable. Allens test was performed to ensure adequate perfusion. Patients LEFT wrist was prepped and draped in the usual sterile fashion. Ultrasound guidance was used to aid needle placement. A 20g Arrow arterial line was introduced into the LEFT Radial artery. Catheter was threaded, and the needle was removed with appropriate blood return. Good waveform was observed. The patient tolerated the procedure well. Confir mation of placement with ultrasound. Blood Loss: Minimal Complications: Initial stick was able to thread wire, unable to thread catheter. Repeat attempt more proximal was successful. Small hematoma at site of first stick. Procedural Ultrasound Guidance: Procedure Date: 11/27/2021 Indication: Hemodynamic Monitoring, Frequent ABGs/Lab draws. Attending: Dr. Thompson APC: James Reed PA-C Artery Identified: YES Line confirmed in Artery with ultrasound: YES Complications: NONE Patient tolerated procedure: WELL Coding CPT Codes Tubes, Drains, and Vasc Access - Tubes, Drains, and Vasc Access: [id number] Place Catheter In Artery ([id number]) [facility] [place] Codes (Charges) Tubes, Drains, and Vasc Access Procedure 1: Tubes, Drains, and Vasc Access: [id number] Place Catheter In Artery
--- NOTE | 2021-11-27 03:01 | Critical Care Consultation ---
Date of Consultation November 27, 2021 Assessment & Plan (1) Admitted to intensive care unit: Reason Critically Ill: 66-year-old female with concerns for upper GI bleeding in the setting of significant coagulopathy and pancytopenia requiring blood product transfusion and close hemodynamic monitoring with concerns for possible underlying sepsis. NEURO - * CAM ICU: NEGATIVE * Chronic pain: * Continue home medications as tolerated. CARDIAC/VASCULAR - * Hypotension: * Multifactorial in the setting of acute blood loss anemia, hypovolemia, sepsis, febrile state, etc. * Continue to support blood pressure with blood products. * Initiation of Levophed. Titrate down as tolerated. * Monitor on telemetry. RESPIRATORY - * Hypoxia: * Patient with transient episode of hypoxemia with associated tachypnea during fever in excess of 40 C. * Titrating back oxygen therapy at this time. * Has shown great improvement with correction today temperature. * Repeat chest x-ray without new acute finding. * Concerning the patient caring COVID-19 diagnosis, however chest x-ray without significant infiltrative changes. * Current hypoxia: * Continue supplemental O2 as needed. GI/NUTRITION - * Concerns for upper GI bleeding: * Presented with hemoptysis. * No further vomiting on admission. * Continue Protonix * Continue to support blood volume. RENAL/LYTES - * AURORA on CKD 3: * Received appropriate IV fluid resuscitation in the emergency department. * Ongoing gentle hydration at this time. * Replace electrolytes as needed. * IVF: NSS at 100 mL's per hour - * Recurrent ESBL and fungal UTIs: * Collect urinalysis. * Covered with meropenem given previous cultures in the past. * [place] in place - Strict I&Os. ENDO - * No history of diabetes * BSGs per unit protocol. ISS --> gtt per unit policy. HEME - * Myelodysplastic syndrome: * Did not tolerate chemotherapeutic well. * Patient with recurrent pancytopenia associated infections. * Patient has essentially become transfusion dependent at this point. * Acute on chronic anemia: * Patient will be difficult to transfuse 2/2 previous findings of antibodies and need for screened blood from outside blood bank. ID - * Sepsis syndrome: * Meets criteria based on fever, tachycardia, tachypnea, and oxygen requirement. * Given recent hospitalizations and ESBL UTI, will cover with meropenem pending cultures. * Certainly could be related to Covid 19 infection also. Outside window of treatment and MDS likely precludes and other treatment. LINES/IV ACCESS - * PIVs x2 * [place] * LEFT Radial Arterial Line DVT PROPHYLAXIS - * Hold on chemotherapeutics 2/2 anemia, thrombocytopenia, elevated INR, GIB, etc.0 * SCDs CODE STATUS - * Had an extensive conversation with the patient and son at bedside. Discussed concerns given rapid decline in status with underlying chronic conditions. Despite in-depth conversation regarding CODE STATUS and concerns for unfavora ble outcome in a patient with recurrent infections and current COVID-19 infection, patient wishes to be full code at this time. Patient does have capacity to make decisions at this point. Family is comfortable with decision making at this time as well. I have personally spent 65 minutes of critical care time in the direct management of this patient. This is a life/limb threatening event. This includes time spent evaluating patient, direct bedside care, chart review, placing orders, interpretation of diagnostic studies, discussion with consultants, patient, and family members, as well as other required patient management activities. This time is exclusive of all separately billable procedures, and teaching time and separate from and in addition to any other critical care service time. Thank you for allowing us to participate in the care of this patient. Please refer to my attending physician's documentation for any further recommendations. (2) UGIB (upper gastrointestinal bleed): (3) Anemia: (4) MDS (myelodysplastic syndrome): (5) Neutropenia: (6) COVID-19: (7) Pancytopenia: (8) Chronic kidney disease: (9) Myelodysplasia (myelodysplastic syndrome): (10) Pancytopenia: History of Present Illness Attending Physician: Cameron Holloway MD History of Present Illness Patient is an unfortunate 66-year-old female with extensive past medical history including myelodysplastic disease, pancytopenia, obstructive sleep apnea, recurrent UTIs, obstructive uropathy, history of lung CA, radiation pneumonitis, chronic hypoxemic respiratory failure, hyperlipidemia, COPD, CKD 3, recurrent DVTs, and history of CVA. Patient had most recently been receiving 5- azacitidine at the end of last year, however she has developed significant clinical difficulties with refractory pancytopenia is and transfusion dependence since receiving these medications. She has had multiple hospitalizations recently with ESBL UTIs as well as fungal UTIs. Unfortunately, the patient contracted COVID-19 and was recently hospitalized for 5 days with improvement of symptoms. She was discharged home on 11/22. Unfortunately, today, she developed nausea with upper abdominal discomfort. Patient had bloody vomiting this evening. Since arrival in the emergency department, she has been "spitting up" some blood and clots without nathan vomiting. Patient was again found to be pancytopenic in the emergency department. Of concern, her platelet count is 11. INR was elevated greater than 2. She received vitamin K and orders for platelet transfusion. Unfortunately, patient spiked a fever in excess of 40 C while in the emergency department. This was accompanied by tachycardia with heart rates into the 140s and increasing oxygen requirement. Repeat H&H demonstrates no significant change. Extensive discussion with patient and son at bedside. Patient remains full CODE STATUS. We will admit to the ICU for ongoing blood product resuscitation and likely need for vasopressor support. On evaluation in the emergency department, the patient is awake, alert, and oriented. She complains of some low back pain as well as lower abdominal discomfort which she describes as not new. She denies complaints of chest pain, lightheadedness, shortness of breath, nausea, or upper abdominal discomfort. Allergies Allergy/AdvReac Type Severity Reaction Status Date / Time bee venom protein (honey bee) Allergy Severe Difficulty Verified 11/26/21 21:14 Breathing adhesive Allergy Intermediate Red torn Verified 11/26/21 21:14 skin Iodinated Contrast Media Allergy Intermediate Hives Verified 11/26/21 21:14 iodine Allergy Intermediate Hives Verified 11/26/21 21:14 levofloxacin Allergy Intermediate numbness/we Verified 11/26/21 21:14 akness pregabalin Allergy Intermediate fever?/?cher Verified 11/26/21 21:14 h strawberry Allergy Intermediate Hives Verified 11/26/21 21:14 Sulfa (Sulfonamide Allergy Intermediate Rash, hives Verified 11/26/21 21:14 Antibiotics) vancomycin Allergy Intermediate Bullous Verified 11/26/21 21:14 skin rash allopurinol Allergy Mild Rash Verified 11/26/21 21:14 ceftriaxone [From Rocephin] Allergy Mild Rash Verified 11/26/21 21:14 piperacillin [From Zosyn] Allergy Mild Rash Verified 11/26/21 21:14 tazobactam [From Zosyn] Allergy Mild Rash Verified 11/26/21 21:14 venlafaxine Allergy Unknown Unknown Verified 11/26/21 21:14 gluten AdvReac Severe Celiac Dz Verified 11/26/21 21:14 = GI symptoms propoxyphene AdvReac Intermediate SOURCING ASSISTANT side Verified 11/26/21 21:14 effects Home Medications Medication Instructions Recorded Confirmed Type cetirizine 10 mg tablet (Zyrtec) 10 mg PO QAM 07/16/18 11/26/21 History folic acid 1 mg tablet 1 mg PO QAM 07/16/18 11/26/21 History magnesium oxide 400 mg PO QAM 07/16/18 11/26/21 History multivitamin 1 tab PO QAM 07/16/18 11/26/21 History vitamin B complex (B-Complex) 1 tab PO QAM 07/16/18 11/26/21 History calcium carbonate 600 mg-vitamin 1 tab PO QPM 11/26/18 11/26/21 History D3 20 mcg (800 unit) tablet (Caltrate with Vitamin D3) cyanocobalamin (vitamin B-12) 1,000 mcg IM MONTHLY 02/10/19 11/26/21 History 1,000 mcg/mL injection solution ferrous sulfate 325 mg (65 mg 325 mg PO QAM 02/10/19 11/26/21 History iron) tablet (iron) vitamin E 400 unit capsule 400 unit PO QAM 08/28/19 11/26/21 History Medical Marijuana 1 ml SUBLINGUAL UD PRN 06/27/20 11/26/21 History denosumab 60 mg/mL subcutaneous 60 mg SUBCUT .q 6 months ml 12/17/20 11/26/21 History syringe (Prolia) acetaminophen 500 mg capsule 500 mg PO QID PRN 01/24/21 11/26/21 History L.acidophilus-B.animalis-B.longum 1 cap PO QAM 02/03/21 11/26/21 History 15 billion cell capsule albuterol sulfate 90 mcg/actuation 2 puff INHALATION QID PRN #8.5 gm 04/22/21 11/26/21 Rx aerosol inhaler (ProAir HFA) metoprolol succinate 50 mg 25 mg PO QAM #45 tab 05/23/21 11/26/21 Rx tablet,extended release 24 hr Auto Titrating CPAP #1 ea 06/01/21 10/24/21 Rx CPAP Supplies #1 ea 06/01/21 10/24/21 Rx methocarbamol 750 mg tablet 750 mg PO BID PRN #60 tab 06/21/21 11/26/21 Rx rizatriptan 10 mg tablet 10 mg PO DAILY PRN #9 tab 06/21/21 11/26/21 Rx oxybutynin chloride 10 mg 10 mg PO QAM #90 tab 07/14/21 11/26/21 Rx tablet,extended release 24 hr mirabegron 50 mg tablet,extended 50 mg PO HS #90 tab 07/25/21 11/26/21 Rx release 24 hr (Myrbetriq) coQ10 (ubiquinol) 200 mg capsule 200 mg PO QAM 08/10/21 11/26/21 History doxycycline hyclate 100 mg capsule 100 mg PO QDD 08/10/21 11/26/21 History gabapentin 400 mg capsule 400 mg PO QAM 30 Days #30 cap 08/11/21 11/26/21 Rx (Neurontin) potassium chloride 20 mEq 20 meq PO QAM #30 tab 08/11/21 11/26/21 Rx tablet,extended release oxycodone 5 mg tablet 5 mg PO Q4H PRN #20 tab 08/18/21 11/26/21 Rx budesonide-formoterol HFA 80 2 puff INHALATION BID #3 inhaler 08/22/21 11/26/21 Rx mcg-4.5 mcg/actuation aerosol inhaler (Symbicort) clonazepam 1 mg tablet 0.5 mg PO HS #30 tab 08/22/21 11/26/21 Rx quetiapine 50 mg tablet (Seroquel) 50 mg PO HS #30 tab 08/22/21 11/26/21 Rx gweizzgrie-gqmtrlqwxxcde-eaahaihn 1 tab PO DAILY PRN 30 Days #12 tab 09/27/21 11/26/21 Rx 50 mg-325 mg-40 mg tablet (Esgic) sertraline 50 mg tablet (Zoloft) 50 mg PO HS #30 tab 10/03/21 11/26/21 Rx cephalexin 500 mg capsule 500 mg PO QDD 10/12/21 11/26/21 History triamcinolone acetonide 0.025 % 1 applic TOPICAL BID PRN #80 g 10/17/21 11/26/21 Rx topical cream diphenhydramine HCl 25 mg capsule 25 mg PO Q6H PRN 10/31/21 11/26/21 History (Benadryl) acyclovir 400 mg tablet 400 mg PO AMHS 11/17/21 11/26/21 History topiramate 100 mg tablet (Topamax) 100 mg PO QAM 11/17/21 11/26/21 History topiramate 200 mg tablet (Topamax) 200 mg PO HS 11/17/21 11/26/21 History vancomycin 125 mg capsule 125 mg PO 2XWK 11/17/21 11/26/21 History ergocalciferol (vitamin D2) 1,250 50,000 unit PO WK 11/26/21 11/26/21 History mcg (50,000 unit) capsule phenazopyridine 200 mg tablet 200 mg PO BID PRN 11/26/21 11/26/21 History (Pyridium) Patient History Medical History Acute UTI (urinary tract infection) AURORA (acute kidney injury) Asthma Celiac disease Cellulitis Recurrent B/L LE - on prophylactic abx (Follows with Dr. Nielson). on chronic Cephalexin and Doxy Chronic back pain Chronic kidney disease Stage III > follows Dr. Fleming Chronic obstructive pulmonary disease Emphysema Cirrhosis of liver Hx of Hep C with cirrhosis COVID-19 Dehydration Depression Fever History of blood transfusion History of recurrent UTI (urinary tract infection) Hx MRSA infection several yrs ago Hx of cancer of lung s/p radiation (2012), recurrence (2019 in [facility]) s/p radiation- follows with heme/onc Hx of Clostridium difficile infection on Vanco 2x/week for prophylaxis Hx of deep venous thrombosis LLE (1976) Hx of hepatitis C 2013 > "resolved" Hx of non-Hodgkin's lymphoma s/p treatment in 2013 Hydronephrosis b/l chronic hydronephrosis requiring routine stent exchanges Hyperlipidemia Migraine Mood disorder Myelodysplasia (myelodysplastic syndrome) Diagnosed 07/09/21 by bone marrow biopsy. Being treated with Azacitidine and Procrit injections. 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 Pagan Thrombocytopenia Chronic (platelet baseline in the 40-70s over the past few months) Venous stasis dermatitis Surgical History H/O bursectomy Right knee History of bone marrow biopsy History of bronchoscopy History of carpal tunnel release Left History of cystoscopy Multiple Bilateral Retrograde Pyelogram (05/27/21): [facility] at [facility] History of esophagogastroduodenoscopy (EGD) History of liver biopsy History of tooth extraction History of ureter stent MULTIPLE Hx of bladder repair surgery FOR PROLAPSE Hx of colonoscopy Hx of tonsillectomy Hx of tubal ligation Family History Unknown Heart disease Hypertension Mother Psoriasis Diabetes Social History Smoking Status: Former smoker Tobacco Type: Cigarettes Cigarettes Per Day: Quit 02/2011; Second Hand Exposure: No; Hx Alcohol Use: No Hx Substance Use: No Preferred Language: Amharic Communication Ability: Effective Visual Impairment: No Limitations Hearing Ability: Normal Guitar Player Required: No Beliefs That Will Affect Care: None marital status: / Current Living Situation: Family Current Living Situation Comment: Son and son's girlfriend current occupational status: retired How many Children do You have: 2 Other Information That Helps Us Care for You: No Feels Safe at Home: Yes Safety Concerns: Feels Safe At This Time Assistive Devices: Glasses Review of Systems Review of Systems: A complete 10 point review of systems was reviewed with the patient with pertinent positives and negatives as per history of present illness. All else were negative. Physical Exam Physical Exam: VITAL SIGNS - Vital signs and nursing notes were reviewed. GENERAL - 66-year-old female appearing her stated age who is in no acute distress. Communicates well with provider and answers questions appropriately. SKIN - Multiple areas of bruising. Hemosiderin staining noted to the bilateral lower extremities. HEAD - NC/AT. EYES - PERRL with EOMI bilaterally. Sclera anicteric. EARS - No deformities of external structures noted on gross examination bilaterally. NOSE - Midline and without cyanosis. No epistaxis or purulent drainage noted. MOUTH/OROPHARYNX - Without perioral cyanosis. Buccal mucosa pink and dry. NECK - Neck with FROM. Supple to palpation. No lymphadenopathy noted. No nuchal rigidity. LUNGS - Chest wall symmetric without accessory muscle use, intercostals retractions, or central cyanosis. Normal vesicular breath sounds CTA B/L. No wheezes, rales, or rhonchi appreciated. CARDIAC - RRR with S1/S2. No murmur, rubs, or gallops appreciated. ABDOMEN - Abdominal contour flat without pulsations or visible masses. BS normoactive all four quadrants. Mild TTP in the suprapubic area. EXTREMITIES - No clubbing or peripheral cyanosis. Hemosiderin staining noted to the bilateral lower extremities. No pretibial edema present. +3/5 radial and dorsalis pedis pulses palpated throughout. NEUROLOGIC - Cranial nerves II through XII grossly intact. PSYCH - A&Ox3 and cooperates fully with examiner. Pt is very pleasant and interacts well with examiner. Results & Data Results & [facility] ([facility]) Vital Signs (Past 12 Hours) Vital Signs Temp Pulse Pulse Resp BP BP Pulse Ox 11/27/21 02:52 36.6 C 100 H 26 H 95/59 L 98 11/27/21 01:58 122 H 20 80/44 L 98 11/27/21 00:47 39.3 C H 142 H 150 H 26 H 114/58 L 114/58 L 99 11/27/21 00:44 39.3 C H 152 H 29 H 113/85 95 11/27/21 00:17 39 C H 152 H 34 H 120/83 95 11/27/21 00:15 150 H 30 H 11/27/21 00:02 38.9 C H 151 H 81/66 L 11/26/21 23:55 38.6 C H 144 H 25 H 99/72 L 11/26/21 23:37 37.1 C 137 H 22 114/74 93 11/26/21 21:51 84 84 20 108/57 L 96 11/26/21 20:35 36.5 C 99 H 18 96/33 L 93 Coding Level of Care Code Critical Care 1st 30-74 mins Diagnoses Admitted to intensive care unit Z78.9 UGIB (upper gastrointestinal bleed) K92.2 Anemia D61.89 Anemia type: bone marrow failure Bone marrow failure anemia type: other bone marrow failure MDS (myelodysplastic syndrome) D46.9 Neutropenia D70.8 Neutropenia type: other COVID-19 U07.1 Pancytopenia D61.818 Chronic kidney disease N18.9 Myelodysplasia (myelodysplastic syndrome) D46.9 Pancytopenia D61.818 Time Spent (min) 65 (1) Anemia Anemia type: bone marrow failure Bone marrow failure anemia type: other bone marrow failure Qualified Code(s): D61.89 - Other specified aplastic anemias and other bone marrow failure syndromes (2) Neutropenia Neutropenia type: other Qualified Code(s): D70.8 - Other neutropenia
[2021-11-27 03:19] LABS: INR 1.6 (0.9-1.1); Prothrombin Time 15.6 Seconds (9.0-12.0)
[2021-11-27 03:26] LABS: Fibrinogen 362 mg/dl (184-400)
[2021-11-27] MEDS ORDERED: MEROPENEM CONSULT ACTIVE PRN (03:27)
[2021-11-27 03:28] LABS: BUN Creatinine Ratio 27.7 (10-20); Calcium 7.1 mg/dl (8.5-10.1); Creatinine Clr Calc Pharmacy 30.2 ml/min; Est GFR (African American) 49.5 ml/min; Est GFR (Non-African American) 42.7 ml/min; Magnesium 1.5 mg/dl (1.7-2.4); Phosphorus 4.7 mg/dl (2.5-4.9); Potassium 3.7 mmol/L (3.5-5.1)
[2021-11-27 03:35] LABS: Hemoglobin 7.6 g/dL (12.0-16.0); Mean Corpuscular Hemoglobin 25.4 pg (25-34); Mean Corpuscular Hgb Conc 31.7 g/dL (32-36); Mean Corpuscular Volume 80.3 fL (80-100); Nucleated RBC % (auto) 39.1 %; Platelet Count 17 K/uL (130-400); RDW Coefficient of Variation 20.6 % (11.5-14.5); Red Blood Count 2.99 M/uL (4.2-5.4); White Blood Count 1.52 K/uL (4.8-10.8)
[2021-11-27] MEDS ORDERED: STAT IV STA ×2 (03:35→05:47)
[2021-11-27] MEDS ORDERED: MAGNESIUM SULFATE / D5W 1 GM/100 ML BAG IV ONE (03:35)
[2021-11-27 03:41] LABS: Anisocytosis Present; Giant Platelets 2+; Platelet Estimate SIGNIFIC DECREASED (Normal); Schistocytes 1+; Toxic Granulation 1+; Toxic Vacuolation 1+
[2021-11-27 03:44] LABS: D Dimer 5710 ug/L FEU (0-500)
[2021-11-27 03:45] LABS: ALC (manual) 0.79 K/uL (1.2-3.4); ANC (manual) 0.67 K/uL (1.4-6.5); Lymphocytes # (manual) 0.56 K/uL (1.2-3.4); Monocytes # (manual) 0.05 K/uL (0.11-0.59); Myelocytes # (manual) 0.02 K/uL (0-0); Neutrophils # (manual) 0.67 K/uL (1.4-6.5); Reactive Lymphocytes # (manual) 0.23 K/uL
[2021-11-27] MEDS ORDERED: CALCIUM GLUCONATE 10% 2,000 MG in DEXTROSE 5% 50 ML IV ONE (04:00)
[2021-11-27] MEDS: MEROPENEM 500 MG in SYRINGE 0 ML IV SCH ×2 (04:05→16:52)
[2021-11-27] MEDS ORDERED: CALCIUM GLUCONATE 10% 1,000 MG in DEXTROSE 5% 50 ML IV ONE (06:00)
[2021-11-27] MEDS: PANTOprazole 40 MG in DEXTROSE 5% 100 ML IV SCH ×5 (06:36→22:51)
[2021-11-27 06:49] LABS: Appearance Urine Cloudy (Clear); Bilirubin Urine Negative (Negative); Blood Urine 3+ (Negative); Color Urine Brown; Glucose Urine UA Negative (Negative); Ketones Urine Negative (Negative); Leukocyte Esterase Urine 1+ (Negative); Nitrite Urine Positive (Negative); Protein Urine 3+ (Negative); Specific Gravity Urine 1.025 (1.000-1.030); Urobilinogen Urine Negative (Negative)
[2021-11-27 06:54] LABS: Bacteria Urine 1+ (Negative); Epithelial Cell Urine 0-5 /lpf (0-5); RBC Urine >30 /hpf (0-4); WBC Urine >30 /hpf (0-5)
[2021-11-27] MEDS ORDERED: CASPOFUNGIN 70 MG in SODIUM CHLORIDE 0.9% 250 ML IV ONE (07:30)
--- NOTE | 2021-11-27 08:15 | XRay Report ---
XR chest 1V portable CLINICAL HISTORY: SOB, c/f UGIB. COMPARISON STUDY: 11/26/2021 TECHNIQUE: 1 view of the chest FINDINGS: Single frontal view of the chest demonstrates the cardiomediastinal silhouette to be within normal li mits. Compared to the previous examination, COPD with interstitial fibrotic changes are again seen. T here is a deeper inspiration on the current study with resolution of left basilar opacity which most likely represented atelectasis. Compared to the previous study, stable lung opacities are again seen involving the right upper lobe c haracteristic of scarring. Patient has history of lung cancer. There is no evidence for pleural effus ion. There is no evidence for vascular congestion. There is no acute osseous pathology. IMPRESSION: COPD with interstitial fibrotic changes present. Deeper inspiration on the current study with resolution of left basilar opacity which most likely represented atelectasis. Stable right upper lobe scarring. Otherwise, no acute chest disease. ACT 112: Negative or not required by law. Electronically signed by: Holland Rodgers M.D. 11/27/2021 8:13 AM
[2021-11-27 08:19] LABS: Base Excess VBG -3.9 mEq/L; HCO3 VBG 22 mmol/L; PCO2 VBG 41 mmHg (38-50); PO2 VBG 28 mmHg; pH VBG 7.34 (7.36-7.41)
[2021-11-27 08:20] LABS: Oxygen Saturation VBG < 60.0 %
[2021-11-27 08:32] LABS: Hematocrit (blood only) 21.5 % (37-47); Hemoglobin 6.9 g/dL (12.0-16.0); Platelet Count 12 K/uL (130-400)
[2021-11-27] MEDS ORDERED: SODIUM CHLORIDE 0.9% 250 ML IV PRN (08:32)
[2021-11-27] MEDS ORDERED: POTASSIUM CHLORIDE CRTAB 20 MEQ TABCR PO SCH (09:00)
[2021-11-27] MEDS ORDERED: MULTIVITAMIN TAB PO SCH (09:00)
[2021-11-27] MEDS ORDERED: VITAMIN B COMPLEX TAB PO SCH (09:00)
[2021-11-27] MEDS ORDERED: NON-FORMULARY MEDICATION (Coq10 (Ubiquinol) 200 mg Capsule) PO SCH (09:00)
[2021-11-27] MEDS ORDERED: TOCOPHERYL, DL-ALPHA 400 UNITS 180 MG CAP PO SCH (09:00)
[2021-11-27] MEDS: FLUTICASONE/VILANTEROL 100/25MCG 14 PUFFS/INHALER INH SCH (09:26)
--- NOTE | 2021-11-27 09:29 | Electrocardiogram Report ---
Test Reason : Blood Pressure : / mmHG Vent. Rate : 078 BPM Atrial Rate : 078 BPM P-R Int : 150 ms QRS Dur : 078 ms QT Int : 392 ms P-R-T Axes : 094 078 086 degrees QTc Int : 446 ms Normal sinus rhythm Poor R wave progression, consider anterior MD vs. lead placement vs. LVH Abnormal ECG When compared with ECG of 17-NOV-2021 16:57, No significant change Confirmed by Collin Deng ([id number]) on 11/27/2021 9:29:15 AM Referred By: REFERRED SELF Confirmed By:Collin Deng
[2021-11-27] MEDS: TOPIRAMATE 100 MG TAB PO SCH ×2 (09:32→21:42)
[2021-11-27] MEDS: GABAPENTIN 400 MG CAP PO SCH ×2 (09:32→11:26)
[2021-11-27] MEDS: ACYCLOVIR 400 MG TAB PO SCH ×2 (09:32→22:52)
[2021-11-27] MEDS: ONDANSETRON INJ 2 MG/ML 2 ML VIAL IV PRN (09:40)
[2021-11-27] MEDS ORDERED: SODIUM BICARB 8.4% INJ 50 MEQ/50 ML SYR IV STA (09:42)
[2021-11-27] MEDS: CETIRIZINE HCL 10 MG TABLET PO SCH (11:25)
[2021-11-27] MEDS: FOLIC ACID 1 MG TAB PO SCH (11:26)
[2021-11-27] MEDS: ADVANCED PROBIOTIC 1250 MG CAPSULE PO SCH (11:26)
[2021-11-27] MEDS: MAGNESIUM OXIDE 400 MG TAB PO SCH (11:26)
[2021-11-27] MEDS: METOPROLOL SUCC 25MG EXT REL TAB PO SCH (11:26)
[2021-11-27] MEDS: FERROUS SULFATE 325 MG TAB PO SCH (11:26)
[2021-11-27] MEDS: OXYBUTYNIN CHLORIDE XL 5 MG TABCR PO SCH (11:27)
[2021-11-27] MEDS: MAGNESIUM SULFATE / D5W 1 GM/100 ML BAG IV SCH ×2 (12:05→13:48)
--- NOTE | 2021-11-27 12:39 | Critical Care Progress Note ---
Date of Service November 27, 2021 Assessment & Plan (1) Admitted to intensive care unit: (2) MDS (myelodysplastic syndrome): (3) COVID-19: (4) Neutropenia: (5) Pulmonary emphysema: (6) Chronic kidney disease, stage III (moderate): (7) COPD (chronic obstructive pulmonary disease): Plan: Reason Critically Ill: 66-year-old female with concerns for upper GI bleeding in the setting of significant coagulopathy and pancytopenia requiring blood product transfusion and close hemodynamic monitoring with concerns for possible underlying sepsis. NEURO - * CAM ICU: NEGATIVE * Chronic pain: * Continue home medications as tolerated. CARDIAC/VASCULAR - * Hypotension: * Multifactorial in the setting of acute blood loss anemia, hypovolemia, sep sis, febrile state, etc. * Continue to support blood pressure with blood products. * Initiation of Levophed. Titrate down as tolerated. * Monitor on telemetry. RESPIRATORY - * Hypoxia: * Patient with transient episode of hypoxemia with associated tachypnea during fever in excess of 40 C. * Repeat chest x-ray without new acute finding. * Has been off oxygen History of lung cancer small cell Status post chemoradiation SACHA On home CPAP GI/NUTRITION - * Concerns for upper GI bleeding: * Presented with hemetemesis * No further vomiting on admission. * Continue Protonix * Continue to support blood volume. RENAL/LYTES - * AURORA on CKD 3: * Received appropriate IV fluid resuscitation in the emergency department. * Ongoing gentle hydration at this time. * Replace electrolytes as needed. - * Recurrent ESBL and fungal UTIs: * Collect urinalysis. * Covered with meropenem given previous cultures in the past. * [place] in place - Strict I&Os. ENDO - * No history of diabetes * BSGs per unit protocol. ISS --> gtt per unit policy. HEME - * Myelodysplastic syndrome with pancytopenia * Did not tolerate chemotherapeutic well. * Patient with recurrent pancytopenia associated infections. * Patient has essentially become transfusion dependent at this point. * Acute on chronic anemia: * Patient will be difficult to transfuse 2/2 previous findings of antibodies and need for screened blood from outside blood bank. Monitor H&H, keep hemoglobin greater than 7 Severe thrombocytopenia Patient was given 1 unit of platelets Coagulopathy Patient got vitamin K as well as 2 units FFP Repeat INR 1.6 ID - * Sepsis syndrome: * Given recent hospitalizations and ESBL UTI, will cover with meropenem pending cultures. * Certainly could be related to Covid 19 infection also. Patient is not hypoxic * Caspofungin added given the pancytopenia and neutropenia, absolute neutrophil count 670 * Procalcitonin 0.37 History of recurrent cellulitis On chronic doxycycline and cephalexin --Prophylaxis VTE: IPC GI: Pantoprazole drip Lines: Left radial, peripheral Diet: N.p.o. Plan: Transfuse 2 unit of PRBC which will be coming from [place] Patient is still severely thrombocytopenic which is most likely from underlying MDS Given the patient still is on vasopressors we will try to get him a PICC line or midline for the vasopressor support Follow-up cortisol level He may being replaced Patient bicarb is 16. I will give an amp of bicarb. Discussed with RN Leeroy I have personally spent 42 minutes of critical care time in the direct management of this patient. This is a life/limb threatening event. This includes time spent evaluating patient, direct bedside care, chart review, placing orders, interpretation of diagnostic studies, discussion with consultants, patient, and family members, as well as other required patient management activities. This time is exclusive of all separately billable procedures, and teaching time and separate from and in addition to any other critical care service time. Please note the above document was generated using voice recognition software. It may contain grammatical, syntax or spelling errors. Admission and Anticipated Discharge Date Admission Date: November 26, 2021 Subjective Patient seen and examined at bedside. No acute distress She was 0.14 of Levophed at time of examination with map in the high 60s to low 70s She stated that she is feeling better compared to before Still complaining of nausea did not throw up anything. No hemoptysis or hematemesis since coming to the hospital No chest pain, no abdominal pain. Review of Systems Review of Systems: All systems reviewed & are unremarkable except as noted in Subjective Physical Exam Physical Exam: Constitutional: No acute distress, frail-appearing HEENT: EOMI, PERRLA Respiratory system: Good air entry bilaterally, no wheeze, rhonchi, mild crackles bilaterally CVS: S1-S2 positive, no murmurs or gallops Abdomen: Soft, nontender, nondistended, positive bowel sounds x4 Extremities: +1 pulses bilaterally radialis/ dorsalis pedis, no cyanosis, no edema Neuro: Awake alert oriented x3 Psych: Normal mood and affect G/U: Positive [place] Skin: no rashes, warm and dry Lymphatic: no cervical or axillary lymphadenopathy Results & Data Results & Data ([facility]) Vital Signs (Past 12 Hours) Vital Signs Temp Pulse Pulse Resp BP BP Pulse Ox 11/27/21 08:45 70 15 103/54 L 100 11/27/21 08:30 77 15 114/58 L 100 11/27/21 08:18 36.6 C 11/27/21 08:15 75 21 108/56 L 100 11/27/21 08:00 80 16 99 11/27/21 07:45 84 17 104/55 L 100 11/27/21 07:30 85 18 104/53 L 98 11/27/21 07:15 82 17 102/55 L 99 11/27/21 07:00 83 19 108/52 L 99 11/27/21 06:30 122 H 11/27/21 04:22 36.9 C 89 18 105/58 L 98 11/27/21 04:10 39.9 C H 87 18 104/54 L 100 11/27/21 03:51 37.1 C 90 16 101/51 L 100 11/27/21 03:42 36.5 C 89 14 102/50 L 98 11/27/21 03:39 36.5 C 91 H 14 102/52 L 99 11/27/21 03:24 36.5 C 92 H 19 96/53 L 98 11/27/21 03:12 36.6 C 97 H 19 81/51 L 98 11/27/21 03:11 36.4 C L 97 H 19 81/51 L 11/27/21 02:55 36.7 C 101 H 22 111/61 99 11/27/21 02:52 36.6 C 100 H 26 H 95/59 L 98 11/27/21 01:58 122 H 20 80/44 L 98 11/27/21 00:47 39.3 C H 142 H 150 H 26 H 114/58 L 114/58 L 99 11/27/21 00:44 39.3 C H 152 H 29 H 113/85 95 Laboratory Results 11/27/21 08:05 11/27/21 02:31 Coding Level of Care Code Critical Care 1st 30-74 mins Diagnoses Admitted to intensive care unit Z78.9 MDS (myelodysplastic syndrome) D46.9 COVID-19 U07.1 Neutropenia D70.8 Neutropenia type: other Pulmonary emphysema J43.9 Chronic kidney disease, stage III (moderate) N18.30 Chronic kidney disease stage 3 subtype: unspecified whether 3a or 3b COPD (chronic obstructive pulmonary disease) J44.9 Time Spent (min) 42 Comment [id number] plus [id number] (1) Neutropenia Neutropenia type: other Qualified Code(s): D70.8 - Other neutropenia (2) Chronic kidney disease, stage III (moderate) Chronic kidney disease stage 3 subtype: unspecified whether 3a or 3b Qualified Code(s): N18.30 - Chronic kidney disease, stage 3 unspecified
[2021-11-27] MEDS ORDERED: HYDROCORTISONE SOD 100 MG in SYRINGE 0 ML IV STA (14:05)
[2021-11-27] MEDS: FILGRASTIM 480 MCG/1.6 ML VIAL SC SCH (14:55)
[2021-11-27] MEDS ORDERED: diphenhydrAMINE 50 MG/ML VIAL IV STA (15:06)
[2021-11-27] MEDS ORDERED: diphenhydrAMINE 50 MG/ML VIAL ONE (15:10)
--- NOTE | 2021-11-27 15:12 | Hospitalist Progress Note ---
Date of Service November 27, 2021 Assessment & Plan (1) UGIB (upper gastrointestinal bleed): Plan: Aleja Duron is a 66-year-old female with a history of HCV-induced cirrhosis s/p treatment with EGD last in 10/2019 not demonstrating varices (PSH - Dr. 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 requiring regular Procrit/Neuopgen, SACHA, urinary incontinence, COPD, prothrombin factor II mutation, celiac disease, previous CVA, recurrent cellulitis requiring chronic doxycycline, frequent UTI with previous bouts including ESBL Klebsiella and Rachelle, s/p bilateral urinary stent placements recently exchanged in 09/2021 who was recently discharged on 11/22 sepsis thought to be due to COVID-19 (consideration also given to urinary source, but UCx given negative) who presents to [facility] for evaluation of spitting up blood and ?melena, thought to be hematemesis, and epistaxis. She was found to have significant coagulopathy and thrombocytopenia on arrival. SHortly after arrival, she spiked a fever and became hypotensive, hypoxic. Sepsis-suspect recurrent UTI. Has a h/o fungal infections. With septic shock requiring vasopressors -continue broad spectrum abx with Meropenem and Caspofungin -follow Ur and BCxs -continue levophed appreciate ICU management Suspected UGIB - History primarily concerning for hematemesis/UGIB based on recent odynophagia, "spitting up blood" (non-projectile), nausea, decreased appetite. - Known history of HCV-induced cirrhosis. Last EGD seems to be 10/2019, per Dr. Chavez's PSH note, which did NOT reveal any esophageal varices; did show Z-line irregularities and esophageal plaques c/w candidiasis - In setting of significant coagulopathy (INR 2.5, PTT 77.2, Plt 11) -- notably progressed since prior admission , INR now improved with FFP - Hgb 7.9 on arrival, now 6.9, awaiting 2 units PRBCs from [place] as she has antibodies - continue pantoprazole gtt - continue NPO status -consult GI although sh eis not stable now for EGD and bleeding seems ot have stopped - No evidence of esophageal varices on last EGD in 2019 - hold from initiation of octreotide from now - If emergent utilization of blood required, may require transfer to tertiary care facility with larger blood bank given limitations here and patient's difficult Ig situation - Consider TXA if needed -gave platelets and FFP Coagulopathy / Thrombocytopenia - Admission labs concerning for INR 2.5 / PTT 77.2 / PLT 11 in setting of H&H 7.9 on arrival - notably worse from previous - Etiology of increased INR / PTT unclear -- in setting of active bleed, suspect consumptive coagulopathy, however source unclear: concern for DIC, sepsis, COVID; lower suspicion for TTP - s/p 2 units FFP -received 2 pack plts Pancytopenia - Patient with known history of severe pancytopenia secondary to MDS that arose from treatment of marginal zone lymphoma, SCLC - transfuse plts, PRBCs as needed -give Neupogen 480 mcg SQ daily x 2-3 days Acute Hypoxic Respiratory Failure - Upon arrival here, patient did not have O2 requirement -- however, shortly into her course, did begin desaturating into 70-80s requiring NC/OxyMask - ABG obtained shortly after demonstrating acidemia to 7.23 without hypercapnia; +adequate oxygenation with O2 therapy -now down to 2LNC - secondary to sepsis and does have recent COVID infection, COPD, PNA - Patient did again test positive for COVID-19 on arrival - initially tested positive approx. 7-8 days prior - CXR demonstrating new L basilar opacities with emphysema - sputum culture, MRSA swab COVID-19 - Patient recently tested positive again for COVID-19, first time approx. ~7 days ago at the end of October - During last hospitalization, was not hypoxic and therefore was not started on dexamethasone / remdesivir - consider initiation of steroids - Isolation precautions Acute Kidney Injury - Has history of CKD with creatinine baseline around 0.7 - 0.9 - On arrival, patient found to have BUN 35 / Cr 1.26 , stable today at 1.3 - Suspect largely prerenal in the setting of suspected hemorrhage, as above - Continue mIVF, transfusions p.r.n. - Monitor BMP, UOP -gave sodium bicarb today History of Hydronephrosis with Ureteral Stent Placement - Recent history of ureteral stents placed in 07/2021 and 09/2021 (exchanged) - Unfortunately, had associated UTI that grew ESBL Klebsiella, alongside Rachelle glabrata - Obtain UCX given patient's toxic presentation - continue meropenem and caspofungin although caspo not great for source I believe Obstructive Sleep Apnea - Utilizes CPAP qHS -- utilize while here History of C. difficile Infection - Patient reported 2 episodes of bowel incontinence earlier today, unusual for her -- however fine before. ?effect of GIB. - On chronic vancomycin suppressive therapy -- should plan to continue once appropriate while here once again PO Code: Full code on admission Dispo: To ICU Diet: NPO PPX: SCDs for now, stop if bruising; pharmacologic PPX contraindicated in setting of coagulopathy (2) Sepsis: (3) UTI (urinary tract infection): (4) COVID-19: (5) Neutropenia: (6) Chronic kidney disease: (7) Pancytopenia: (8) MDS (myelodysplastic syndrome): (9) Anemia: (10) Stroke: (11) Migraine: (12) Celiac disease: (13) Prothrombin [id number] mutation: (14) Chronic back pain: (15) Urge and stress incontinence: (16) COPD (chronic obstructive pulmonary disease): (17) Hx of Clostridium difficile infection: (18) Cirrhosis of liver: Admission and Anticipated Discharge Date Admission Date: November 26, 2021 Subjective Remains on levophed. Is coughing up a lot of sputum. No pain anywhere. Currently getting her PRBC transfusion when I saw her. Says she did have 2 large black tarry stools the day of admission, but none since, no abd pain. Not coughing up blood or vomiting blood today. Did also have a bloody nose yesterday. Tele with NSR, rates 60-100s Review of Systems Review of Systems: All systems reviewed & are unremarkable except as noted in HPI & below Physical Exam Constitutional: WD/WN, vitals as above Eyes: + anicteric sclerae Neck: trachea midline, no thyromegaly Respiratory: normal respiratory effort and + cough Auscultation: + di minished lung sounds (throughout) and + rhonchi; no wheezes Cardiovascular: RRR, no murmur, no edema Chest (Breasts): Chest: normal inspection of chest Gastrointestinal (Abdomen): normal bowel sounds, soft, nontender, no hepatosplenomegaly Musculoskeletal: Extremities: extremities normal to inspection; no cyanosis and no clubbing Skin: no rashes, warm and dry Neurologic: moves all extremities and awake; no focal motor deficits Psychiatric: A+Ox3, euthymic affect Lymphatic: no lymphedema Results & Data Results & [facility] ([facility]) Vital Signs (Past 12 Hours) Vital Signs Temp Pulse Resp BP Pulse Ox 11/27/21 12:37 36.7 C 11/27/21 12:30 70 113/53 L 100 11/27/21 12:15 69 100 11/27/21 12:00 66 104/56 L 100 11/27/21 11:54 74 103/50 L 100 11/27/21 11:48 71 108/54 L 100 11/27/21 11:45 83 74/37 L 100 11/27/21 11:30 74 115/54 L 100 11/27/21 11:15 72 17 106/46 L 100 11/27/21 11:00 73 19 109/54 L 100 11/27/21 10:45 62 14 116/50 L 98 11/27/21 10:30 71 21 110/52 L 100 11/27/21 10:15 68 14 114/54 L 100 11/27/21 10:00 70 20 113/60 100 11/27/21 09:45 79 15 109/58 L 96 11/27/21 09:30 68 20 109/56 L 100 11/27/21 09:15 75 16 109/63 100 11/27/21 09:00 79 15 100/51 L 100 11/27/21 08:45 70 15 103/54 L 100 11/27/21 08:30 77 15 114/58 L 100 11/27/21 08:18 36.6 C 11/27/21 08:15 75 21 108/56 L 100 11/27/21 08:00 80 16 99 11/27/21 07:45 84 17 104/55 L 100 11/27/21 07:30 85 18 104/53 L 98 11/27/21 07:15 82 17 102/55 L 99 11/27/21 07:00 83 19 108/52 L 99 11/27/21 06:30 122 H 11/27/21 04:22 36.9 C 89 18 105/58 L 98 11/27/21 04:10 39.9 C H 87 18 104/54 L 100 11/27/21 03:51 37.1 C 90 16 101/51 L 100 11/27/21 03:42 36.5 C 89 14 102/50 L 98 11/27/21 03:39 36.5 C 91 H 14 102/52 L 99 11/27/21 03:24 36.5 C 92 H 19 96/53 L 98 Laboratory Results labs reviewed PG Care Time/CCT Total # of Minutes Spent Total Time Spent with Patient: Total time spent is greater than 50% in coordination of care (as documented) at patient's floor/unit and/or counseling patient: Coding Level of Care Code 61493 Subseq Hosp Care Lvl 3 Diagnoses UGIB (upper gastrointestinal bleed) K92.2 COVID-19 U07.1 Neutropenia D70.8 Neutropenia type: other Chronic kidney disease N18.9 Pancytopenia D61.818 MDS (myelodysplastic syndrome) D46.9 Anemia D61.89 Anemia type: bone marrow failure Bone marrow failure anemia type: other bone marrow failure Stroke I63.9 Migraine G43.909 Celiac disease K90.0 Prothrombin [id number] mutation D68.52 Chronic back pain M54.9; G89.29 Urge and stress incontinence N39.46 COPD (chronic obstructive pulmonary disease) J44.9 Hx of Clostridium difficile infection Z86.19 Cirrhosis of liver K74.60 UTI (urinary tract infection) N39.0 Sepsis A41.9 (1) Anemia Anemia type: bone marrow failure Bone marrow failure anemia type: other bone marrow failure Qualified Code(s): D61.89 - Other specified aplastic anemias and other bone marrow failure syndromes (2) Neutropenia Neutropenia type: other Qualified Code(s): D70.8 - Other neutropenia
[2021-11-27] MEDS ORDERED: cephALEXin 500 MG CAP PO SCH (16:30)
[2021-11-27] MEDS ORDERED: DOXYCYCLINE HYCLATE 100 MG CAP PO SCH (16:30)
--- NOTE | 2021-11-27 20:36 | Billing Data ---
Date of Service November 27, 2021 Coding Level of Care Code Critical Care 1st - mins
[2021-11-27] MEDS ORDERED: CALCIUM 600MG + VIT D 400 IU TAB PO SCH (21:00)
[2021-11-27] MEDS: BUTALBITAL/ACETAMIN/CAFFEINE TAB PO PRN (21:40)
[2021-11-27] MEDS: QUEtiapine FUMARATE 25 MG TABLET PO SCH (21:41)
[2021-11-27] MEDS: SERTRALINE HCL 50 MG TABLET PO SCH (21:42)
[2021-11-27] MEDS: MIRABEGRON ER 25 MG TAB PO SCH (21:42)
[2021-11-27] MEDS: clonazePAM 0.5 MG TAB PO SCH (22:50)
[2021-11-27] MEDS: HYDROCORTISONE SOD 50 MG in SYRINGE 0 ML IV SCH (22:51)
[2021-11-28] MEDS: NOREPINEPHRINE/D5W 8 MG/508 ML BAG IV SCH ×3 (00:23→03:44)
[2021-11-28 01:38] LABS: Hematocrit (blood only) 33.4 % (37-47); Platelet Count 12 K/uL (130-400)
[2021-11-28 02:23] LABS: BUN Creatinine Ratio 28.4 (10-20); Creatinine Clr Calc Pharmacy 44.7 ml/min; Est GFR (African American) 79.4 ml/min; Est GFR (Non-African American) 68.5 ml/min; Magnesium 2.1 mg/dl (1.7-2.4); Phosphorus 4.2 mg/dl (2.5-4.9); Potassium 3.9 mmol/L (3.5-5.1)
[2021-11-28] MEDS ORDERED: STAT IV STA (02:34)
[2021-11-28] MEDS ORDERED: CALCIUM GLUCONATE 10% 1,000 MG in DEXTROSE 5% 50 ML IV ONE (02:34)
[2021-11-28] MEDS: MEROPENEM 500 MG in SYRINGE 0 ML IV SCH ×3 (03:39→20:02)
[2021-11-28] MEDS: PANTOprazole 40 MG in DEXTROSE 5% 100 ML IV SCH ×4 (03:41→19:50)
[2021-11-28 06:31] LABS: INR 1.1 (0.9-1.1); Prothrombin Time 11.4 Seconds (9.0-12.0)
[2021-11-28 06:50] LABS: Albumin Level 2.5 gm/dl (3.4-5.0); BUN Creatinine Ratio 30.5 (10-20); Bilirubin Direct 0.2 mg/dl (0-0.2); Bilirubin,Total 0.9 mg/dl (0.2-1.0); Calcium 8.2 mg/dl (8.5-10.1); Creatinine Clr Calc Pharmacy 47.9 ml/min; Est GFR (African American) 86.4 ml/min; Est GFR (Non-African American) 74.6 ml/min; Phosphorus 4.5 mg/dl (2.5-4.9)
[2021-11-28] MEDS: HYDROCORTISONE SOD 50 MG in SYRINGE 0 ML IV SCH ×2 (06:50→20:02)
[2021-11-28 06:55] LABS: Hematocrit (blood only) 32.7 % (37-47); Hemoglobin 10.9 g/dL (12.0-16.0); Mean Corpuscular Hemoglobin 26.8 pg (25-34); Mean Corpuscular Hgb Conc 33.3 g/dL (32-36); Mean Corpuscular Volume 80.5 fL (80-100); Nucleated RBC # (auto) 0.09 K/uL (0-0); Nucleated RBC % (auto) 6.7 %; Platelet Count 9 K/uL (130-400); RDW Coefficient of Variation 17.7 % (11.5-14.5); RDW Standard Deviation 51.4 fL (36.4-46.3); Red Blood Count 4.06 M/uL (4.2-5.4); White Blood Count 1.33 K/uL (4.8-10.8)
[2021-11-28 06:56] LABS: ALC (manual) 0.32 K/uL (1.2-3.4); ANC (manual) 0.86 K/uL (1.4-6.5); Basophils # (manual) 0.03 K/uL (0-0.2); Blast # (manual) 0.03 K/uL (0-0); Lymphocytes # (manual) 0.32 K/uL (1.2-3.4); Lymphocytes % (manual) 23.8 %; Monocytes # (manual) 0.11 K/uL (0.11-0.59); Monocytes % (manual) 7.9 %; Neutrophils # (manual) 0.86 K/uL (1.4-6.5); Neutrophils % (manual) 64.3 %; Platelet Estimate SIGNIFIC DECREASED (Normal); Schistocytes Occasional
[2021-11-28] MEDS: FLUTICASONE/VILANTEROL 100/25MCG 14 PUFFS/INHALER INH SCH (08:25)
[2021-11-28] MEDS: CASPOFUNGIN 50 MG in SODIUM CHLORIDE 0.9% 250 ML IV SCH (08:27)
[2021-11-28] MEDS: ACYCLOVIR 400 MG TAB PO SCH ×2 (08:34→21:52)
[2021-11-28] MEDS: GABAPENTIN 400 MG CAP PO SCH (08:38)
[2021-11-28] MEDS: TOPIRAMATE 100 MG TAB PO SCH ×2 (08:40→21:52)
[2021-11-28] MEDS: OXYBUTYNIN CHLORIDE XL 5 MG TABCR PO SCH (08:42)
[2021-11-28] MEDS: FERROUS SULFATE 325 MG TAB PO SCH (08:44)
[2021-11-28] MEDS: CETIRIZINE HCL 10 MG TABLET PO SCH (08:45)
[2021-11-28] MEDS: ADVANCED PROBIOTIC 1250 MG CAPSULE PO SCH (08:46)
[2021-11-28] MEDS: FOLIC ACID 1 MG TAB PO SCH (08:47)
[2021-11-28] MEDS: MAGNESIUM OXIDE 400 MG TAB PO SCH (08:48)
[2021-11-28] MEDS: METOPROLOL SUCC 25MG EXT REL TAB PO SCH (08:53)
[2021-11-28] MEDS: FILGRASTIM 480 MCG/1.6 ML VIAL SC SCH (09:36)
--- NOTE | 2021-11-28 10:44 | Critical Care Progress Note ---
Date of Service November 28, 2021 Assessment & Plan (1) Admitted to intensive care unit: (2) MDS (myelodysplastic syndrome): (3) COVID-19: (4) Neutropenia: (5) Pulmonary emphysema: (6) Chronic kidney disease, stage III (moderate): (7) COPD (chronic obstructive pulmonary disease): Plan: Reason Critically Ill: 66-year-old female with concerns for upper GI bleeding in the setting of significant coagulopathy and pancytopenia requiring blood product transfusion and close hemodynamic monitoring with concerns for possible underlying sepsis. NEURO - * CAM ICU: NEGATIVE * Chronic pain: * Continue home medications as tolerated. CARDIAC/VASCULAR - * Hypotension: * Multifactorial in the setting of acute blood loss anemia, hypovolemia, sep sis, febrile state, etc. * Continue to support blood pressure with blood products. * Off pressors * Wean stress dose steroids to BID today, q day tomorrow and off Sunday * Monitor on telemetry. RESPIRATORY - * Hypoxia: * Patient with transient episode of hypoxemia with associated tachypnea during fever in excess of 40 C. * Repeat chest x-ray without new acute finding. 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 * Restart home CPAP for SACHA GI/NUTRITION - * Concerns for upper GI bleeding: * Presented with hemetemesis * No further vomiting on admission. * Continue Protonix * Continue to support blood volume. RENAL/LYTES - * AUR[place] on CKD 3: * Received appropriate IV fluid resuscitation in the emergency department. * Ongoing gentle hydration at this time. * Replace electrolytes as needed. - * Recurrent ESBL and fungal UTIs: * Urine culture growing gram-negative rods * Covered with meropenem given previous cultures in the past. * [place] in place - Strict I&Os. ENDO - * No history of diabetes * BSGs per unit protocol. ISS --> gtt per unit policy. HEME - * Myelodysplastic syndrome with pancytopenia * Did not tolerate chemotherapy well. * Patient with recurrent pancytopenia and associated infections. * Patient has essentially become transfusion dependent at this point. * Acute on chronic anemia: * Patient will be difficult to transfuse 2/2 previous findings of antibodies and need for screened blood from outside blood bank. Monitor H&H, keep hemoglobin greater than 7 Severe thrombocytopenia We will hold on platelet therapy at this time as no signs of bleeding. Heme consult recommended as below. D/w hospitalist. Coagulopathy Patient got vitamin K as well as 2 units FFP Repeat INR 1.6 Strongly recommend heme consult given advanced MDS that is transfusion dependent. Prognosis is very poor. ID - * Sepsis syndrome: * Given recent hospitalizations and ESBL UTI, will cover with meropenem pending cultures. * Certainly could be related to Covid 19 infection also. Patient is not hypoxic * Caspofungin added given the pancytopenia and neutropenia, absolute neutrophil count 670 * Procalcitonin 0.37 History of recurrent cellulitis On chronic doxycycline and cephalexin --Prophylaxis VTE: SCD GI: Pantoprazole drip Lines: Left radial, peripheral Diet: N.p.o. Stable for downgrade to PCU status. Admission and Anticipated Discharge Date Admission Date: November 26, 2021 Subjective No significant events overnight. Wean off vasopressors early this morning. Denies any obvious complaints of pain. Currently on 1 L oxygen mask for comfort. Review of Systems Review of Systems: All systems reviewed & are unremarkable except as noted in Subjective Physical Exam Physical Exam: Constitutional: No acute distress, frail-appearing HEENT: EOMI, PERRLA Respiratory system: Good air entry bilaterally, no wheeze, rhonchi, mild crackles bilaterally CVS: S1-S2 positive, no murmurs or gallops Abdomen: Soft, nontender, nondistended, positive bowel sounds x4 Extremities: +1 pulses bilaterally radialis/ dorsalis pedis, no cyanosis, no edema Neuro: Awake alert oriented x3 Psych: Normal mood and affect G/U: Positive [place] Skin: no rashes, warm and dry Lymphatic: no cervical or axillary lymphadenopathy Results & Data Results & [facility] ([facility]) Vital Signs (Past 12 Hours) Vital Signs Pulse Resp BP Pulse Ox 11/28/21 06:00 66 27 H 132/61 96 11/28/21 05:00 55 L 20 129/57 L 99 11/28/21 04:00 52 L 14 123/61 93 11/28/21 03:01 54 L 142/61 H 100 11/28/21 03:00 35 L 100 11/28/21 02:00 56 L 128/66 88 L 11/28/21 01:00 55 L 121/62 100 11/28/21 00:00 59 L 120/56 L 100 11/27/21 23:59 60 11/27/21 23:00 58 L 122/63 99 Coding Level of Care Code 40695 Subseq Hosp Care Lvl 3 Diagnoses Admitted to intensive care unit Z78.9 MDS (myelodysplastic syndrome) D46.9 COVID-19 U07.1 Neutropenia D70.8 Neutropenia type: other Pulmonary emphysema J43.9 Chronic kidney disease, stage III (moderate) N18.30 Chronic kidney disease stage 3 subtype: unspecified whether 3a or 3b COPD (chronic obstructive pulmonary disease) J44.9 (1) Neutropenia Neutropenia type: other Qualified Code(s): D70.8 - Other neutropenia (2) Chronic kidney disease, stage III (moderate) Chronic kidney disease stage 3 subtype: unspecified whether 3a or 3b Qualified Code(s): N18.30 - Chronic kidney disease, stage 3 unspecified
--- NOTE | 2021-11-28 13:38 | Hospitalist Progress Note ---
Date of Service November 28, 2021 Assessment & Plan (1) UGIB (upper gastrointestinal bleed): Plan: Aleja Duron is a 66-year-old female with a history of HCV-induced cirrhosis s/p treatment with EGD last in 10/2019 not demonstrating varices (PSH - Dr. 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 requiring regular Procrit/Neuopgen, SACHA, urinary incontinence, COPD, prothrombin factor II mutation, celiac disease, previous CVA, recurrent cellulitis requiring chronic doxycycline, frequent UTI with previous bouts including ESBL Klebsiella and Rachelle, s/p bilateral urinary stent placements recently exchanged in 09/2021 who was recently discharged on 11/22 sepsis thought to be due to COVID-19 (consideration also given to urinary source, but UCx given negative) who presents to [facility] for evaluation of spitting up blood and ?melena, thought to be hematemesis, and epistaxis. She was found to have significant coagulopathy and thrombocytopenia on arrival. SHortly after arrival, she spiked a fever and became hypotensive, hypoxic. Sepsis- with recurrent UTI. Has a h/o fungal infections. With septic shock requiring vasopressors-now off pressors with ureteral stents in place, last exchanged stents 09/2021 -continue broad spectrum abx with Meropenem and Caspofungin -follow Ur cx-GNR -follow BCxs-NGTD -started hydrocortisone IV for pressor support-taper off over 3 days appreciate ICU management-stable for downgrade out of ICU -Oncology recommends continuing on po dilfucan for prophylaxis at discharge also plan to restart doxy and keflex for prophylaxis at dc Suspected UGIB - History primarily concerning for hematemesis/UGIB based on recent odynophagia, "spitting up blood" (non-projectile), nausea, decreased appetite. - Known history of HCV-induced cirrhosis. Last EGD seems to be 10/2019, per Dr. Chavez's PSH note, which did NOT reveal any esophageal varices; did show Z-line irregularities and esophageal plaques c/w candidiasis -no need for octreotide with no h/o known varices - In setting of significant coagulopathy (INR 2.5, PTT 77.2, Plt 11) -- notably progressed since prior admission , coagulopathy now improved with FFP and Vit K - Hgb 7.9 on arrival, then 6.9,received 2 units PRBCs from [place] as she has antibodies on 11/28 - appreciate GI consult--> no urgent EGD given tenuous status and she has stopped bleeding, consider outpt EGD -no BM since admission makes GI bleed less likely; perhaps was epistaxis and hemoptysis - change PPI gtt to PPI po bid -advance diet to clears, gluten free - If emergent utilization of blood required, may require transfer to tertiary care facility with larger blood bank given limitations here and patient's difficult situation - Consider TXA if needed -follow CBC Coagulopathy / Thrombocytopenia - Admission labs concerning for INR 2.5 / PTT 77.2 / PLT 11 in setting of H&H 7.9 on arrival - notably worse from previous. ALso D-dimer 5000 - most likely etiology secondary to DIC from sepsis, in setting of MDS, liver disease with HCV history, poor nutrition (Vit K deficiency possibility) - s/p 2 units FFP and Vit K and now coags normalized -plts 9 today , no further bleeding, hold off on plts follow CBC Pancytopenia - Patient with known history of severe pancytopenia secondary to MDS that arose from treatment of marginal zone lymphoma, SCLC - transfuse plts, PRBCs as needed -give Neupogen 480 mcg SQ daily x 3 days -follow CBC Acute Hypoxic Respiratory Failure - Upon arrival here, patient did not have O2 requirement -- however, shortly into her course, did begin desaturating into 70-80s requiring NC/OxyMask - ABG obtained shortly after demonstrating acidemia to 7.23 without hypercapnia; +adequate oxygenation with O2 therapy -now down to room air - secondary to sepsis and does have recent COVID infection, COPD, PNA - Patient did again test positive for COVID-19 on arrival - initially tested p ositive approx. 7-8 days prior - CXR demonstrating new L basilar opacities with emphysema, repeat CXR with resolution of LLL opacity-likely atelectasis -MRSA swab neg COVID-19 - Patient recently tested positive again for COVID-19, first time approx. ~7 days ago at the end of October - During last hospitalization, was not hypoxic and therefore was not started on dexamethasone / remdesivir -no steroids needed as her hypoxia is not from COVID - Isolation precautions for now Acute Kidney Injury - Has history of CKD with creatinine baseline around 0.7 - 0.9 - On arrival, patient found to have BUN 35 / Cr 1.26 ,now normal - Suspect largely prerenal in the setting of suspected hemorrhage, as above -received volume support with transfusion and maintenance fluids - Monitor BMP, UOP History of Hydronephrosis with Ureteral Stent Placement - Recent history of ureteral stents placed in 07/2021 and 09/2021 (exchanged) - Unfortunately, had associated UTI that grew ESBL Klebsiella, alongside Rachelle glabrata -follow UR cx as above -consult Urology about stent exchange - continue meropenem and caspofungin although caspo not great for source I believe Obstructive Sleep Apnea - Utilizes CPAP qHS -- utilize while here History of C. difficile Infection-no diarrhea here since admisison - On chronic vancomycin suppressive therapy -- restart this prophylactic dose twice a week Code: Full code on admission, continue for now but overall very poor prognosis a s discussed with her and her son on phone, consider Hospice if continues to decline Dispo: downgrade to PCU PPX: SCDs for now, stop if bruising; pharmacologic PPX contraindicated in setting of coagulopathy (2) Sepsis: (3) UTI (urinary tract infection): (4) COVID-19: (5) Neutropenia: (6) Chronic kidney disease: (7) Pancytopenia: (8) MDS (myelodysplastic syndrome): (9) Anemia: (10) Stroke: (11) Migraine: (12) Celiac disease: (13) Prothrombin [id number] mutation: (14) Chronic back pain: (15) Urge and stress incontinence: (16) COPD (chronic obstructive pulmonary disease): (17) Hx of Clostridium difficile infection: (18) Cirrhosis of liver: Admission and Anticipated Discharge Date Admission Date: November 26, 2021 Subjective Patient feels a little bit better today. No bowel movement since admission, no vomiting or blood coming from her nose or mouth. Coughing up some mucus. She was weaned off Levophed this morning and I discussed her care with the technical inspector. She is stable for downgrade from the ICU. When I addressed goals of care, she tells me she still wants to keep coming back to the hospital for treatment for infections and transfusions. Says "I have a reason to live" in reference to her grandchildren and great grandchildren. She asked me to update her son Matt by phone. We had a long talk about her very grave prognosis and what hospice services are if she chooses to pursue that in the future. Tele with NSR, PVCs, bigem, rates 50-80s Review of Systems Review of Systems: All systems reviewed & are unremarkable except as noted in HPI & below Physical Exam Constitutional: + ill appearing and + thin Eyes: + anicteric sclerae Neck: trachea midline, no thyromegaly Respiratory: normal respiratory effort and + cough Auscultation: + diminished lung sounds (throughout) and + rhonchi; no wheezes Cardiovascular: RRR, no murmur, no edema Chest (Breasts): Chest: normal inspection of chest Gastrointestinal (Abdomen): normal bowel sounds, soft, nontender, no hepatosplenomegaly Musculoskeletal: Extremities: extremities normal to inspection; no cyanosis and no clubbing Skin: + ecchymosis (numerous areas of bruising and ecchymosis, petechiae on extremities) Neurologic: moves all extremities and awake; no focal motor deficits Psychiatric: Orientation: alert, oriented x 3 and cooperative Genitourinary: Ayala in place with clear yellow urine Lymphatic: no lymphedema Results & Data Results & Data ([facility]) Vital Signs (Past 12 Hours) Vital Signs Temp Pulse Resp BP Pulse Ox 11/28/21 11:22 36.5 C 11/28/21 11:00 62 15 111/53 L 95 11/28/21 10:30 65 16 113/58 L 97 11/28/21 10:00 59 L 18 126/61 97 11/28/21 09:30 62 18 131/62 100 11/28/21 09:00 79 14 132/70 91 11/28/21 08:30 65 16 134/73 96 11/28/21 08:00 74 18 116/66 97 11/28/21 07:30 67 19 120/61 96 11/28/21 07:00 51 L 10 L 94 11/28/21 06:30 58 L 25 H 127/61 100 11/28/21 06:00 66 27 H 132/61 96 11/28/21 05:00 55 L 20 129/57 L 99 11/28/21 04:00 52 L 14 123/61 93 11/28/21 03:01 54 L 142/61 H 100 11/28/21 03:00 35 L 100 11/28/21 02:00 56 L 128/66 88 L Laboratory Results 11/29/21 11/29/21 11/28/21 Range/Units 05:24 05:24 20:39 WBC 1.24 L (4.8-10.8) K/uL RBC 3.43 L (4.2-5.4) M/uL Hgb 9.0 L (12.0-16.0) g/dL Hct 28.1 L (37-47) % MCV 81.9 (80-100) fL MCH 26.2 (25-34) pg MCHC 32.0 (32-36) g/dL RDW Std Deviation 53.6 H (36.4-46.3) fL RDW Coeff of Irasema 18.1 H (11.5-14.5) % Plt Count 6 L* (130-400) K/uL Absolute Nucleated RBC 0.06 H (0-0) K/uL Nucleated RBC % (auto) 4.7 % Neutrophils % (Manual) 75.4 % Lymphocytes % (Manual) 20.2 % Monocytes % (Manual) 3.5 % Blast Cells % (Manual) 0.9 % Neutrophils # (Manual) 0.93 L (1.4-6.5) K/uL Total Absolute Neuts 0.93 L* (1.4-6.5) K/uL Lymphocytes # (Manual) 0.25 L (1.2-3.4) K/uL Total Abs Lymphocytes 0.25 L (1.2-3.4) K/uL Monocytes # (Manual) 0.04 L (0.11-0.59) K/uL Blast Cells # (Man) 0.01 H (0-0) K/uL Hyposegmented Neuts 1+ Platelet Estimate SIGNIFIC DECREASED (Normal) Giant Platelets 1+ Poikilocytosis Present Schistocytes 1+ Sodium 137 (136-145) mmol/L Potassium 4.0 (3.5-5.1) mmol/L Chloride 108 H (98-107) mmol/L Carbon Dioxide 24 (21-32) mmol/L Anion Gap 5 (3-11) BUN 29 H (6-23) mg/dl Creatinine 0.81 (0.6-1.2) mg/dl Est Cr Clr Drug Dosing 51.6 ml/min Est GFR ( Amer) 87.7 ml/min Est GFR (Non-Af Amer) 75.7 ml/min BUN/Creatinine Ratio 35.8 H (10-20) Glucose 112 H (70-99(Fasting)) mg/dl POC Glucose 98 (70-99) mg/dl Calcium 8.1 L (8.5-10.1) mg/dl Phosphorus 3.7 (2.5-4.9) mg/dl Magnesium 1.8 (1.7-2.4) mg/dl Total Bilirubin 0.9 (0.2-1.0) mg/dl AST 9 L (13-39) U/L ALT 11 (7-52) U/L Alkaline Phosphatase 55 (34-104) U/L Total Protein 4.8 L (6.0-8.3) gm/dl Albumin 2.6 L (3.4-5.0) gm/dl Globulin 2.2 L (2.5-4.0) gm/dl Albumin/Globulin Ratio 1.2 (0.9-2) IMP Carbapenemase (STEPHANIE) KPC Carbapenemase (STEPHANIE) NDM Carbapenemase (STEPHANIE) OXA Carbapenemase (STEPHANIE) VIM Carbapenemase (STEPHANIE) Antibody ID Referred Crossmatch 11/28/21 11/27/21 11/26/21 Range/Units 11:55 00:52 21:18 WBC (4.8-10.8) K/uL RBC (4.2-5.4) M/uL Hgb (12.0-16.0) g/dL Hct (37-47) % MCV (80-100) fL MCH (25-34) pg MCHC (32-36) g/dL RDW Std Deviation (36.4-46.3) fL RDW Coeff of Irasema (11.5-14.5) % Plt Count (130-400) K/uL Absolute Nucleated RBC (0-0) K/uL Nucleated RBC % (auto) % Neutrophils % (Manual) % Lymphocytes % (Manual) % Monocytes % (Manual) % Blast Cells % (Manual) % Neutrophils # (Manual) (1.4-6.5) K/uL Total Absolute Neuts (1.4-6.5) K/uL Lymphocytes # (Manual) (1.2-3.4) K/uL Total Abs Lymphocytes (1.2-3.4) K/uL Monocytes # (Manual) (0.11-0.59) K/uL Blast Cells # (Man) (0-0) K/uL Hyposegmented Neuts Platelet Estimate (Normal) Giant Platelets Poikilocytosis Schistocytes Sodium (136-145) mmol/L Potassium (3.5-5.1) mmol/L Chloride (98-107) mmol/L Carbon Dioxide (21-32) mmol/L Anion Gap (3-11) BUN (6-23) mg/dl Creatinine (0.6-1.2) mg/dl Est Cr Clr Drug Dosing ml/min Est GFR ( Amer) ml/min Est GFR (Non-Af Amer) ml/min BUN/Creatinine Ratio (10-20) Glucose (70-99(Fasting)) mg/dl POC Glucose 120 H (70-99) mg/dl Calcium (8.5-10.1) mg/dl Phosphorus (2.5-4.9) mg/dl Magnesium (1.7-2.4) mg/dl Total Bilirubin (0.2-1.0) mg/dl AST (13-39) U/L ALT (7-52) U/L Alkaline Phosphatase (34-104) U/L Total Protein (6.0-8.3) gm/dl Albumin (3.4-5.0) gm/dl Globulin (2.5-4.0) gm/dl Albumin/Globulin Ratio (0.9-2) IMP Carbapenemase (STEPHANIE) Pending KPC Carbapenemase (STEPHANIE) Pending NDM Carbapenemase (STEPHANIE) Pending OXA Carbapenemase (STEPHANIE) Pending VIM Carbapenemase (STEPHANIE) Pending Antibody ID Referred Crossmatch 11/26/21 Range/Units 21:18 WBC (4.8-10.8) K/uL RBC (4.2-5.4) M/uL Hgb (12.0-16.0) g/dL Hct (37-47) % MCV (80-100) fL MCH (25-34) pg MCHC (32-36) g/dL RDW Std Deviation (36.4-46.3) fL RDW Coeff of Irasema (11.5-14.5) % Plt Count (130-400) K/uL Absolute Nucleated RBC (0-0) K/uL Nucleated RBC % (auto) % Neutrophils % (Manual) % Lymphocytes % (Manual) % Monocytes % (Manual) % Blast Cells % (Manual) % Neutrophils # (Manual) (1.4-6.5) K/uL Total Absolute Neuts (1.4-6.5) K/uL Lymphocytes # (Manual) (1.2-3.4) K/uL Total Abs Lymphocytes (1.2-3.4) K/uL Monocytes # (Manual) (0.11-0.59) K/uL Blast Cells # (Man) (0-0) K/uL Hyposegmented Neuts Platelet Estimate (Normal) Giant Platelets Poikilocytosis Schistocytes Sodium (136-145) mmol/L Potassium (3.5-5.1) mmol/L Chloride (98-107) mmol/L Carbon Dioxide (21-32) mmol/L Anion Gap (3-11) BUN (6-23) mg/dl Creatinine (0.6-1.2) mg/dl Est Cr Clr Drug Dosing ml/min Est GFR ( Amer) ml/min Est GFR (Non-Af Amer) ml/min BUN/Creatinine Ratio (10-20) Glucose (70-99(Fasting)) mg/dl POC Glucose (70-99) mg/dl Calcium (8.5-10.1) mg/dl Phosphorus (2.5-4.9) mg/dl Magnesium (1.7-2.4) mg/dl Total Bilirubin (0.2-1.0) mg/dl AST (13-39) U/L ALT (7-52) U/L Alkaline Phosphatase (34-104) U/L Total Protein (6.0-8.3) gm/dl Albumin (3.4-5.0) gm/dl Globulin (2.5-4.0) gm/dl Albumin/Globulin Ratio (0.9-2) IMP Carbapenemase (STEPHANIE) KPC Carbapenemase (STEPHANIE) NDM Carbapenemase (STEPHANIE) OXA Carbapenemase (STEPHANIE) VIM Carbapenemase (STEPHANIE) Antibody ID Referred Crossmatch See Detail PG Care Time/CCT Total # of Minutes Spent Total Time Spent with Patient: Total time spent is greater than 50% in coordination of care (as documented) at patient's floor/unit and/or counseling patient: Coding Level of Care Code 87741 Subseq Hosp Care Lvl 3 Diagnoses UGIB (upper gastrointestinal bleed) K92.2 Sepsis A41.9 UTI (urinary tract infection) N39.0 COVID-19 U07.1 Neutropenia D70.8 Neutropenia type: other Chronic kidney disease N18.9 Pancytopenia D61.818 MDS (myelodysplastic syndrome) D46.9 Anemia D61.89 Anemia type: bone marrow failure Bone marrow failure anemia type: other bone marrow failure Stroke I63.9 Migraine G43.909 Celiac disease K90.0 Prothrombin [id number] mutation D68.52 Chronic back pain M54.9; G89.29 Urge and stress incontinence N39.46 COPD (chronic obstructive pulmonary disease) J44.9 Hx of Clostridium difficile infection Z86.19 Cirrhosis of liver K74.60 (1) Anemia Anemia type: bone marrow failure Bone marrow failure anemia type: other bone marrow failure Qualified Code(s): D61.89 - Other specified aplastic anemias and other bone marrow failure syndromes (2) Neutropenia Neutropenia type: other Qualified Code(s): D70.8 - Other neutropenia
[2021-11-28] MEDS ORDERED: VANCOMYCIN HCL 125 MG/2.5ML SOLN PO SCH (15:00)
[2021-11-28] MEDS ORDERED: RASPBERRY SYRUP 5 ML UDP PO SCH (15:00)
--- NOTE | 2021-11-28 16:15 | Gastrointestinal Consultation ---
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 It is questionable whether there has been any gastrointestinal bleeding in this case. By history from the patient, she describes hemoptysis, not hematemesis, and there has been no evidence of GI bleeding during this entire hospitalization episode. She has underlying hepatic cirrhosis, no varices detected at EGD 2 years ago. There is no indication for urgent intervention for GI bleeding in this case. I recommend elective endoscopy to evaluate the upper GI tract for a potential bleeding site when the patient is stable and out of Covid isolation. Agree with empiric PPI administration, could be switched to PO administration now that she is on a clear liquid diet, advance diet as tolerated, and continued observation for GI bleeding in the hospital We will discontinue daily in person rounding and we will follow this patient with daily chart reviews, and intervene in care as requested by the primary care team. History of Present Illness Reason for Consultation: Possible upper GI bleeding with exacerbation of existing anemia Requesting Physician: July Garrett MD Attending Physician: July Garrett MD History of Present Illness 66 yo woman readmitted to the hospital evening of 11-26-21 with persistent hemoptysis beginning in the the afternoon on 11-26-21. The patient describes multiple episodes of coughing up and spitting up fresh blood and dark red clots mixed with clear sputum, and not hematemesis. She did also have dark bowel movements without visible blood and not melenic stools. Dark stools she has had chronically, attributed to oral iron supplementation. She denies, and the nursing staff confirms that she has had no bowel movements since admission to the hospital. She has continued to infrequently cough up dark abilio sputum but no fresh bleeding noted. She has underlying compensated cirrhosis due to chronic hepatitis C which was successfully eradicated in the past. EGD in October 2019 was negative for esophageal or gastric varices, negative for portal hypertensive gastropathy. There is history of celiac disease diagnosed by duodenal biopsies and she has been on a gluten free diet for years. There is recent severe pancytopenia related to chemotherapy (Azacitidine) for myelodysplastic syndrome in June 2021 (WBC=1.24, Hgb=7.9, Plt=11,000 on admission), and past history of Prothrombin [id number] mutation for which she was treated with Lovenox in the past. On admission she was found to have severe coagulopathy ( PT=23.4, INR=2.5, APTT=77.2 on admission), coagulopathy now corrected with FFP and vitamin K. She also has had transfusion of platelets and packed red blood cells, post transfusion Hgb= 10.9 and PLT=9,000. Multiple other medical problems including Covid + status, as noted by the primary care team. Allergies Allergy/AdvReac Type Severity Reaction Status Date / Time bee venom protein (honey bee) Allergy Severe Difficulty Verified 11/26/21 21:14 Breathing adhesive Allergy Intermediate Red torn Verified 11/26/21 21:14 skin Iodinated Contrast Media Allergy Intermediate Hives Verified 11/26/21 21:14 iodine Allergy Intermediate Hives Verified 11/26/21 21:14 levofloxacin Allergy Intermediate numbness/we Verified 11/26/21 21:14 akness pregabalin Allergy Intermediate fever?/?cher Verified 11/26/21 21:14 h strawberry Allergy Intermediate Hives Verified 11/26/21 21:14 Sulfa (Sulfonamide Allergy Intermediate Rash, hives Verified 11/26/21 21:14 Antibiotics) vancomycin Allergy Intermediate Bullous Verified 11/26/21 21:14 skin rash allopurinol Allergy Mild Rash Verified 11/26/21 21:14 ceftriaxone [From Rocephin] Allergy Mild Rash Verified 11/26/21 21:14 piperacillin [From Zosyn] Allergy Mild Rash Verified 11/26/21 21:14 tazobactam [From Zosyn] Allergy Mild Rash Verified 11/26/21 21:14 venlafaxine Allergy Unknown Unknown Verified 11/26/21 21:14 gluten AdvReac Severe Celiac Dz Verified 11/26/21 21:14 = GI symptoms propoxyphene AdvReac Intermediate ABATTOIR MANAGER side Verified 11/26/21 21:14 effects Home Medications Medication Instructions Recorded Confirmed Type cetirizine 10 mg tablet (Zyrtec) 10 mg PO QAM 09/25/18 02/05/22 History folic acid 1 mg tablet 1 mg PO QAM 07/16/18 11/26/21 History magnesium oxide 400 mg PO QAM 07/16/18 11/26/21 History multivitamin 1 tab PO QAM 07/16/18 11/26/21 History vitamin B complex (B-Complex) 1 tab PO QAM 07/16/18 11/26/21 History calcium carbonate 600 mg-vitamin 1 tab PO QPM 11/26/18 11/26/21 History D3 20 mcg (800 unit) tablet (Caltrate with Vitamin D3) cyanocobalamin (vitamin B-12) 1,000 mcg IM MONTHLY 02/10/19 11/26/21 History 1,000 mcg/mL injection solution ferrous sulfate 325 mg (65 mg 325 mg PO QAM 02/10/19 11/26/21 History iron) tablet (iron) vitamin E 400 unit capsule 400 unit PO QAM 08/28/19 11/26/21 History Medical Marijuana 1 ml SUBLINGUAL UD PRN 06/27/20 11/26/21 History denosumab 60 mg/mL subcutaneous 60 mg SUBCUT .q 6 months ml 12/17/20 11/26/21 History syringe (Prolia) acetaminophen 500 mg capsule 500 mg PO QID PRN 01/24/21 11/26/21 History L.acidophilus-B.animalis-B.longum 1 cap PO QAM 02/03/21 11/26/21 History 15 billion cell capsule albuterol sulfate 90 mcg/actuation 2 puff INHALATION QID PRN #8.5 gm 04/22/21 11/26/21 Rx aerosol inhaler (ProAir HFA) metoprolol succinate 50 mg 25 mg PO QAM #45 tab 05/23/21 11/26/21 Rx tablet,extended release 24 hr Auto Titrating CPAP #1 ea 06/01/21 10/24/21 Rx CPAP Supplies #1 ea 06/01/21 10/24/21 Rx methocarbamol 750 mg tablet 750 mg PO BID PRN #60 tab 06/21/21 11/26/21 Rx rizatriptan 10 mg tablet 10 mg PO DAILY PRN #9 tab 06/21/21 11/26/21 Rx oxybutynin chloride 10 mg 10 mg PO QAM #90 tab 07/14/21 11/26/21 Rx tablet,extended release 24 hr mirabegron 50 mg tablet,extended 50 mg PO HS #90 tab 07/25/21 11/26/21 Rx release 24 hr (Myrbetriq) coQ10 (ubiquinol) 200 mg capsule 200 mg PO QAM 08/10/21 11/26/21 History doxycycline hyclate 100 mg capsule 100 mg PO QDD 08/10/21 11/26/21 History gabapentin 400 mg capsule 400 mg PO QAM 30 Days #30 cap 08/11/21 11/26/21 Rx (Neurontin) potassium chloride 20 mEq 20 meq PO QAM #30 tab 08/11/21 11/26/21 Rx tablet,extended release oxycodone 5 mg tablet 5 mg PO Q4H PRN #20 tab 08/18/21 11/26/21 Rx budesonide-formoterol HFA 80 2 puff INHALATION BID #3 inhaler 08/22/21 11/26/21 Rx mcg-4.5 mcg/actuation aerosol inhaler (Symbicort) clonazepam 1 mg tablet 0.5 mg PO HS #30 tab 08/22/21 11/26/21 Rx quetiapine 50 mg tablet (Seroquel) 50 mg PO HS #30 tab 08/22/21 11/26/21 Rx dhzbfbqxnt-jzoklkrjyavdm-txjiysgy 1 tab PO DAILY PRN 30 Days #12 tab 09/27/21 11/26/21 Rx 50 mg-325 mg-40 mg tablet (Esgic) sertraline 50 mg tablet (Zoloft) 50 mg PO HS #30 tab 10/03/21 11/26/21 Rx cephalexin 500 mg capsule 500 mg PO QDD 10/12/21 11/26/21 History triamcinolone acetonide 0.025 % 1 applic TOPICAL BID PRN #80 g 10/17/21 11/26/21 Rx topical cream diphenhydramine HCl 25 mg capsule 25 mg PO Q6H PRN 10/31/21 11/26/21 History (Benadryl) acyclovir 400 mg tablet 400 mg PO AMHS 11/17/21 11/26/21 History topiramate 100 mg tablet (Topamax) 100 mg PO QAM 11/17/21 11/26/21 History topiramate 200 mg tablet (Topamax) 200 mg PO HS 11/17/21 11/26/21 History vancomycin 125 mg capsule 125 mg PO 2XWK 11/17/21 11/26/21 History ergocalciferol (vitamin D2) 1,250 50,000 unit PO WK 11/26/21 11/26/21 History mcg (50,000 unit) capsule phenazopyridine 200 mg tablet 200 mg PO BID PRN 11/26/21 11/26/21 History (Pyridium) Patient History Medical History Acute UTI (urinary tract infection) [place] (acute kidney injury) Asthma Celiac disease Cellulitis Recurrent B/L LE - on prophylactic abx (Follows with Dr. Nielson). on chronic Cephalexin and Doxy Chronic back pain Chronic kidney disease Stage III > follows Dr. Fleming Chronic obstructive pulmonary disease Emphysema Cirrhosis of liver Hx of Hep C with cirrhosis COVID-19 Dehydration Depression Fever History of blood transfusion History of recurrent UTI (urinary tract infection) Hx MRSA infection several yrs ago Hx of cancer of lung s/p radiation (2012), recurrence (2019 in [facility]) s/p radiation- follows with heme/onc Hx of Clostridium difficile infection on Vanco 2x/week for prophylaxis Hx of deep venous thrombosis LLE (1976) Hx of hepatitis C 2013 > "resolved" Hx of non-Hodgkin's lymphoma s/p treatment in 2013 Hydronephrosis b/l chronic hydronephrosis requiring routine stent exchanges Hyperlipidemia Migraine Mood disorder Myelodysplasia (myelodysplastic syndrome) Diagnosed 07/09/21 by bone marrow biopsy. Being treated with Azacitidine and Procrit injections. 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 Pagan Thrombocytopenia Chronic (platelet baseline in the 40-70s over the past few months) Venous stasis dermatitis Surgical History H/O bursectomy Right knee History of bone marrow biopsy History of bronchoscopy History of carpal tunnel release Left History of cystoscopy Multiple Bilateral Retrograde Pyelogram (05/27/21): MAC at [facility] History of esophagogastroduodenoscopy (EGD) History of liver biopsy History of tooth extraction History of ureter stent MULTIPLE Hx of bladder repair surgery FOR PROLAPSE Hx of colonoscopy Hx of tonsillectomy Hx of tubal ligation Family History Unknown Heart disease Hypertension Mother Psoriasis Diabetes Social History Smoking Status: Former smoker Tobacco Type: Cigarettes Cigarettes Per Day: Quit 02/2011; Second Hand Exposure: No; Hx Alcohol Use: No Hx Substance Use: No Preferred Language: Sudanese Communication Ability: Unable Visual Impairment: No Limitations Hearing Ability: Normal Superintendent Mechanical Required: No Beliefs That Will Affect Care: None marital status: / Current Living Situation: Family Current Living Situation Comment: Son and son's girlfriend current occupational status: retired How many Children do You have: 1 Other Information That Helps Us Care for You: No Feels Safe at Home: Yes Safety Concerns: Feels Safe At This Time Assistive Devices: CPAP Review of Systems Review of Systems: Review of systems performed and no other findings pertinent to this consultation Physical Exam Constitutional: The patient is alert, cooperative. she appears thin, malnourished, and chronically ill, with prominent muscle wasting, not pale or icteric Gastrointestinal (Abdomen): Not distended, no obvious ascites no localized tenderness, guarding, masses. Neurologic: No focal neurologic signs Psychiatric: A+Ox3, euthymic affect Results & Data ([facility]) Vital Signs (Past 12 Hours) Vital Signs Temp Pulse Resp BP Pulse Ox 11/28/21 11:22 36.5 C 11/28/21 11:00 62 15 111/53 L 95 11/28/21 10:30 65 16 113/58 L 97 11/28/21 10:00 59 L 18 126/61 97 11/28/21 09:30 62 18 131/62 100 11/28/21 09:00 79 14 132/70 91 11/28/21 08:30 65 16 134/73 96 11/28/21 08:00 74 18 116/66 97 11/28/21 07:30 67 19 120/61 96 11/28/21 07:00 51 L 10 L 94 11/28/21 06:30 58 L 25 H 127/61 100 11/28/21 06:00 66 27 H 132/61 96 11/28/21 05:00 55 L 20 129/57 L 99 Laboratory Results Laboratory Results WBC 1.33 K/uL (4.8-10.8) L 11/28/21 05:54 RBC 4.06 M/uL (4.2-5.4) L 11/28/21 05:54 Hgb 10.9 g/dL (12.0-16.0) L 11/28/21 05:54 Hct 32.7 % (37-47) L 11/28/21 05:54 MCV 80.5 fL (80-100) 11/28/21 05:54 MCH 26.8 pg (25-34) 11/28/21 05:54 MCHC 33.3 g/dL (32-36) 11/28/21 05:54 RDW Std Deviation 51.4 fL (36.4-46.3) H 11/28/21 05:54 RDW Coeff of Irasema 17.7 % (11.5-14.5) H 11/28/21 05:54 Plt Count 9 K/uL (130-400) L* 11/28/21 05:54 Reticulocyte % (Auto) 1.5 % (0.5-2.0) 11/27/21 02:31 Reticulocyte # 0.05 10^6/uL (0.02-0.10) 11/27/21 02:31 Absolute Nucleated RBC 0.09 K/uL (0-0) H 11/28/21 05:54 Nucleated RBC % (auto) 6.7 % 11/28/21 05:54 Neutrophils % (Manual) 64.3 % 11/28/21 05:54 Lymphocytes % (Manual) 23.8 % 11/28/21 05:54 Reactive Lymphs % (Man) 15.0 % 11/27/21 02:31 Monocytes % (Manual) 7.9 % 11/28/21 05:54 Basophils % (Manual) 2.0 % 11/28/21 05:54 Myelocytes % (Man) 1.0 % 11/27/21 02:31 Blast Cells % (Manual) 2.0 % 11/28/21 05:54 Neutrophils # (Manual) 0.86 K/uL (1.4-6.5) L 11/28/21 05:54 Total Absolute Neuts 0.86 K/uL (1.4-6.5) L* 11/28/21 05:54 Lymphocytes # (Manual) 0.32 K/uL (1.2-3.4) L 11/28/21 05:54 Reactive Lymphs # 0.23 K/uL 11/27/21 02:31 Total Abs Lymphocytes 0.32 K/uL (1.2-3.4) L 11/28/21 05:54 Monocytes # (Manual) 0.11 K/uL (0.11-0.59) 11/28/21 05:54 Basophils # (Manual) 0.03 K/uL (0-0.2) 11/28/21 05:54 Myelocytes # (Manual) 0.02 K/uL (0-0) H 11/27/21 02:31 Blast Cells # (Man) 0.03 K/uL (0-0) H 11/28/21 05:54 Hyposegmented Neuts 1+ 11/28/21 05:54 Toxic Granulation 1+ 11/27/21 02:31 Toxic Vacuolation 1+ 11/27/21 02:31 Platelet Estimate SIGNIFIC DECREASED (Normal) 11/28/21 05:54 Giant Platelets 2+ 11/27/21 02:31 Polychromasia 1+ 11/26/21 21:18 Anisocytosis Present 11/27/21 02:31 Schistocytes Occasional 11/28/21 05:54 PT 11.4 Seconds (9.0-12.0) 11/28/21 05:54 INR 1.1 (0.9-1.1) 11/28/21 05:54 APTT 77.2 Seconds (21.0-31.0) H* 11/26/21 21:18 PTT Ratio 2.9 11/26/21 21:18 Fibrinogen 362 mg/dl (184-400) 11/27/21 02:31 D-Dimer 5710 ug/L FEU (0-500) H* 11/27/21 02:31 POC pH 7.23 (7.35-7.45) L 11/27/21 00:13 POC pCO2 32 mmHg (35-46) L 11/27/21 00:13 POC pO2 125 mmHg (80-95) H 11/27/21 00:13 POC HCO3 13 leonor/L (19-24) L 11/27/21 00:13 POC Total CO2 14 mmol/L (24-31) L 11/27/21 00:13 POC Base Excess -14.0 leonor/L (-9-1.8) L 11/27/21 00:13 POC ABG O2 Sat 98.0 % (90-95) H 11/27/21 00:13 VBG pH 7.34 (7.36-7.41) L 11/27/21 08:05 VBG pCO2 41 mmHg (38-50) 11/27/21 08:05 VBG pO2 28 mmHg 11/27/21 08:05 VBG HCO3 22 mmol/L 11/27/21 08:05 VBG O2 Saturation < 60.0 % 11/27/21 08:05 VBG Base Excess -3.9 mEq/L 11/27/21 08:05 Barometric Pressure 744.2 mm/Hg 11/27/21 08:05 Sodium 137 mmol/L (136-145) 11/28/21 05:54 Potassium 4.0 mmol/L (3.5-5.1) 11/28/21 05:54 Chloride 108 mmol/L (98-107) H 11/28/21 05:54 Carbon Dioxide 21 mmol/L (21-32) 11/28/21 05:54 Anion Gap 8 (3-11) 11/28/21 05:54 BUN 25 mg/dl (6-23) H 11/28/21 05:54 Creatinine 0.82 mg/dl (0.6-1.2) 11/28/21 05:54 Est Cr Clr Drug Dosing 47.9 ml/min 11/28/21 05:54 Est GFR ( Amer) 86.4 ml/min 11/28/21 05:54 Est GFR (Non-Af Amer) 74.6 ml/min 11/28/21 05:54 BUN/Creatinine Ratio 30.5 (10-20) H 11/28/21 05:54 Glucose 137 mg/dl (70-99(Fasting)) H 11/28/21 05:54 POC Glucose 120 mg/dl (70-99) H 11/28/21 11:55 POC Glucose (other) 144 mg/dl (70-99) H 11/27/21 18:33 Calcium 8.2 mg/dl (8.5-10.1) L 11/28/21 05:54 Phosphorus 4.5 mg/dl (2.5-4.9) 11/28/21 05:54 Magnesium 2.0 mg/dl (1.7-2.4) 11/28/21 05:54 Total Bilirubin 0.9 mg/dl (0.2-1.0) 11/28/21 05:54 Direct Bilirubin 0.2 mg/dl (0-0.2) 11/28/21 05:54 AST 8 U/L (13-39) L 11/28/21 05:54 ALT 10 U/L (7-52) 11/28/21 05:54 Alkaline Phosphatase 61 U/L (34-104) 11/28/21 05:54 Total Protein 5.0 gm/dl (6.0-8.3) L D 11/28/21 05:54 Albumin 2.5 gm/dl (3.4-5.0) L 11/28/21 05:54 Globulin 2.8 gm/dl (2.5-4.0) 11/26/21 21:18 Albumin/Globulin Ratio 1.2 (0.9-2) 11/26/21 21:18 Procalcitonin 0.37 ng/ml (0-0.5) 11/26/21 21:21 Random Cortisol 19.42 mcg/dl 11/27/21 08:07 Urine Color Brown 11/27/21 Unknown Urine Appearance Cloudy (Clear) A 11/27/21 Unknown Urine pH 6.0 (4.5-7.5) 11/27/21 Unknown Ur Specific [place] 1.025 (1.000-1.030) 11/27/21 Unknown Urine Protein 3+ (Negative) H 11/27/21 Unknown Urine Glucose (UA) Negative (Negative) 11/27/21 Unknown Urine Ketones Negative (Negative) 11/27/21 Unknown Urine Blood 3+ (Negative) H 11/27/21 Unknown Urine Nitrite Positive (Negative) A 11/27/21 Unknown Urine Bilirubin Negative (Negative) 11/27/21 Unknown Urine Urobilinogen Negative (Negative) 11/27/21 Unknown Ur Leukocyte Esterase 1+ (Negative) H 11/27/21 Unknown Urine RBC >30 /hpf (0-4) H 11/27/21 Unknown Urine WBC >30 /hpf (0-5) H 11/27/21 Unknown Ur Epithelial Cells 0-5 /lpf (0-5) 11/27/21 Unknown Urine Bacteria 1+ (Negative) H 11/27/21 Unknown Nasal Screen MRSA (PCR) Negative (Negative) 11/27/21 02:00 SARS-CoV-2, RNA, NAAT POSITIVE (NEGATIVE) A* 11/26/21 Unknown Blood Type B Positive 11/26/21 21:18 Antibody Screen POSITIVE A 11/26/21 21:18 Antibody Identification Auto [place] Agglutinin 11/26/21 21:18 Antibody ID Referred 11/26/21 21:18 Antibody ID Comment Cancelled 11/26/21 21:18 Crossmatch See Detail 11/26/21 21:18 Impressions Chest X-Ray 11/27/21 00:30 XR chest 1V portable CLINICAL HISTORY: SOB, c/f UGIB. COMPARISON STUDY: 11/26/2021 TECHNIQUE: 1 view of the chest FINDINGS: Single frontal view of the chest demonstrates the cardiomediastinal silhouette to be within normal limits. Compared to the previous examination, COPD with interstitial fibrotic changes are again seen. There is a deeper inspiration on the current study with resolution of left basilar opacity which most likely represented atelectasis. Compared to the previous study, stable lung opacities are again seen involving the right upper lobe characteristic of scarring. Patient has history of lung cancer. There is no evidence for pleural effusion. There is no evidence for vascular congestion. There is no acute osseous pathology. IMPRESSION: COPD with interstitial fibrotic changes present. Deeper inspiration on the current study with resolution of left basilar opacity which most likely represented atelectasis. Stable right upper lobe scarring. Otherwise, no acute chest disease. ACT 112: Negative or not required by law. Electronically signed by: Holland Rodgers M.D. 11/27/2021 8:13 AM
[2021-11-28] MEDS: oxyCODONE HCL IR 5 MG TAB (IMMEDIATE RELEASE) PO PRN ×2 (18:46→22:00)
[2021-11-28] MEDS: clonazePAM 0.5 MG TAB PO SCH (21:52)
[2021-11-28] MEDS: BUTALBITAL/ACETAMIN/CAFFEINE TAB PO PRN (21:52)
[2021-11-28] MEDS: PANTOprazole 40 MG TAB PO SCH (21:53)
[2021-11-28] MEDS: QUEtiapine FUMARATE 25 MG TABLET PO SCH (21:53)
[2021-11-28] MEDS: MIRABEGRON ER 25 MG TAB PO SCH (21:53)
[2021-11-28] MEDS: SERTRALINE HCL 50 MG TABLET PO SCH (21:53)
--- NOTE | 2021-11-29 00:59 | Urology Consultation ---
Date of Consultation November 29, 2021 Assessment & Plan (1) UTI (urinary tract infection): Recommend continue treatment with broad-spectrum antibiotics and antifungals. She is current receiving caspofungin and meropenem. Antibiotics will be further adjusted based on culture results when further culture data is available At the present time the patient has normal renal function and is not requiring pressor support to maintain her blood pressure and she is afebrile. Numerous other comorbidities are not feel urgent urologic intervention is required this evening. Patient will be reassessed in the morning by her urology service to determine if stent exchange is required or if her other medical comorbidities preclude operative intervention. I have made the patient n.p.o. for the present time ~determine whether or not she require cystoscopy. History of Present Illness Reason for Consultation: Abscess, urinary tract infection, history of ureteral stents Attending Physician: July Garrett MD History of Present Illness This is a 66-year-old female with an underlying history of hepatitis C and resultant cirrhosis along with a history of lymphoma and myelodysplastic syndrome. Who was admitted to [facility] on 11/26/2021 secondary to GI bleed as the patient had an episode of hematemesis. This patient was recently mated to [facility] in October/November of this year secondary to sepsis that was attributed to COVID-19. At that time consideration was given to sepsis from urinary source but urine cultures were negative. Patient does have a history of bilateral ureteral stents that were initially placed in July 2021 and most recently exchanged in September 26, 2021. Since admission patient has been treated for her GI bleed but was also found to be septic requiring vasopressors. She has been treated with broad-spectrum antibiotics and antifungals in the form of meropenem and caspofungin. Patient's most recent cultures included blood cultures from 11/27/2021 that showed no growth however patient did have a urine culture from 11/27/2021 that showed gram-negative bacilli with further identification pending. Prior urine cultures were reviewed and patient did have a urine culture on 11/09/2021 that grew out Klebsiella with multiple resistances and she also grew out Klebsiella urine culture from 10/12/2021 also with multiple resistances. I visited with the patient at bedside and discussed with the bedside nurse. Over the past shift the patient has been afebrile and has not required any vasopressor support. Urology has been asked to see the patient due to her urinary tract infection to see if stent exchange will be required again. At the present time the patient denies any fevers, shakes, chills. She denies any flank pain. She does not report any nausea vomiting or abdominal pain. She does not express any urinary symptoms but does have an indwelling [place] catheter. Patient's most recent chest x-ray was from 11/27/2021 that showed findings consistent with COPD and interstitial fibrotic changes. His recent labs were from yesterday which showed a white blood cell count of 1.3 and a neutrophil count of 0.8. Her hemoglobin and hematocrit were 10.9 and 32.7 and her platelet count was only 9000. Chemistry profile showed sodium and potassium were both normal. Her creatinine was noted to be within normal range and her BUN was elevated at 25. It is also no over the mention that during this admission the patient has tested positive for COVID-19. She was in no distress at the time of my interview Allergies Allergy/AdvReac Type Severity Reaction Status Date / Time bee venom protein (honey bee) Allergy Severe Difficulty Verified 11/26/21 21:14 Breathing adhesive Allergy Intermediate Red torn Verified 11/26/21 21:14 skin Iodinated Contrast Media Allergy Intermediate Hives Verified 11/26/21 21:14 iodine Allergy Intermediate Hives Verified 11/26/21 21:14 levofloxacin Allergy Intermediate numbness/we Verified 11/26/21 21:14 akness pregabalin Allergy Intermediate fever?/?cher Verified 11/26/21 21:14 h strawberry Allergy Intermediate Hives Verified 11/26/21 21:14 Sulfa (Sulfonamide Allergy Intermediate Rash, hives Verified 11/26/21 21:14 Antibiotics) vancomycin Allergy Intermediate Bullous Verified 11/26/21 21:14 skin rash allopurinol Allergy Mild Rash Verified 11/26/21 21:14 ceftriaxone [From Rocephin] Allergy Mild Rash Verified 11/26/21 21:14 piperacillin [From Zosyn] Allergy Mild Rash Verified 11/26/21 21:14 tazobactam [From Zosyn] Allergy Mild Rash Verified 11/26/21 21:14 venlafaxine Allergy Unknown Unknown Verified 11/26/21 21:14 gluten AdvReac Severe Celiac Dz Verified 11/26/21 21:14 = GI symptoms propoxyphene AdvReac Intermediate SECTIONIZER side Verified 11/26/21 21:14 effects Home Medications Medication Instructions Recorded Confirmed Type cetirizine 10 mg tablet (Zyrtec) 10 mg PO QAM 07/16/18 11/26/21 History folic acid 1 mg tablet 1 mg PO QAM 07/16/18 11/26/21 History magnesium oxide 400 mg PO QAM 07/16/18 11/26/21 History multivitamin 1 tab PO QAM 07/16/18 11/26/21 History vitamin B complex (B-Complex) 1 tab PO QAM 07/16/18 11/26/21 History calcium carbonate 600 mg-vitamin 1 tab PO QPM 11/26/18 11/26/21 History D3 20 mcg (800 unit) tablet (Caltrate with Vitamin D3) cyanocobalamin (vitamin B-12) 1,000 mcg IM MONTHLY 02/10/19 11/26/21 History 1,000 mcg/mL injection solution ferrous sulfate 325 mg (65 mg 325 mg PO QAM 02/10/19 11/26/21 History iron) tablet (iron) vitamin E 400 unit capsule 400 unit PO QAM 08/28/19 11/26/21 History Medical Marijuana 1 ml SUBLINGUAL UD PRN 06/27/20 11/26/21 History denosumab 60 mg/mL subcutaneous 60 mg SUBCUT .q 6 months ml 12/17/20 11/26/21 History syringe (Prolia) acetaminophen 500 mg capsule 500 mg PO QID PRN 01/24/21 11/26/21 History L.acidophilus-B.animalis-B.longum 1 cap PO QAM 02/03/21 11/26/21 History 15 billion cell capsule albuterol sulfate 90 mcg/actuation 2 puff INHALATION QID PRN #8.5 gm 04/22/21 11/26/21 Rx aerosol inhaler (ProAir HFA) metoprolol succinate 50 mg 25 mg PO QAM #45 tab 05/23/21 11/26/21 Rx tablet,extended release 24 hr Auto Titrating CPAP #1 ea 06/01/21 10/24/21 Rx CPAP Supplies #1 ea 06/01/21 10/24/21 Rx methocarbamol 750 mg tablet 750 mg PO BID PRN #60 tab 06/21/21 11/26/21 Rx rizatriptan 10 mg tablet 10 mg PO DAILY PRN #9 tab 06/21/21 11/26/21 Rx oxybutynin chloride 10 mg 10 mg PO QAM #90 tab 07/14/21 11/26/21 Rx tablet,extended release 24 hr mirabegron 50 mg tablet,extended 50 mg PO HS #90 tab 07/25/21 11/26/21 Rx release 24 hr (Myrbetriq) coQ10 (ubiquinol) 200 mg capsule 200 mg PO QAM 08/10/21 11/26/21 History doxycycline hyclate 100 mg capsule 100 mg PO QDD 08/10/21 11/26/21 History gabapentin 400 mg capsule 400 mg PO QAM 30 Days #30 cap 08/11/21 11/26/21 Rx (Neurontin) potassium chloride 20 mEq 20 meq PO QAM #30 tab 08/11/21 11/26/21 Rx tablet,extended release oxycodone 5 mg tablet 5 mg PO Q4H PRN #20 tab 08/18/21 11/26/21 Rx budesonide-formoterol HFA 80 2 puff INHALATION BID #3 inhaler 08/22/21 11/26/21 Rx mcg-4.5 mcg/actuation aerosol inhaler (Symbicort) clonazepam 1 mg tablet 0.5 mg PO HS #30 tab 08/22/21 11/26/21 Rx quetiapine 50 mg tablet (Seroquel) 50 mg PO HS #30 tab 08/22/21 11/26/21 Rx cbjvlpevjw-afponjztgxwsk-fwngsblf 1 tab PO DAILY PRN 30 Days #12 tab 09/27/21 11/26/21 Rx 50 mg-325 mg-40 mg tablet (Esgic) sertraline 50 mg tablet (Zoloft) 50 mg PO HS #30 tab 10/03/21 11/26/21 Rx cephalexin 500 mg capsule 500 mg PO QDD 10/12/21 11/26/21 History triamcinolone acetonide 0.025 % 1 applic TOPICAL BID PRN #80 g 10/17/21 11/26/21 Rx topical cream diphenhydramine HCl 25 mg capsule 25 mg PO Q6H PRN 10/31/21 11/26/21 History (Benadryl) acyclovir 400 mg tablet 400 mg PO AMHS 11/17/21 11/26/21 History topiramate 100 mg tablet (Topamax) 100 mg PO QAM 11/17/21 11/26/21 History topiramate 200 mg tablet (Topamax) 200 mg PO HS 11/17/21 11/26/21 History vancomycin 125 mg capsule 125 mg PO 2XWK 11/17/21 11/26/21 History ergocalciferol (vitamin D2) 1,250 50,000 unit PO WK 11/26/21 11/26/21 History mcg (50,000 unit) capsule phenazopyridine 200 mg tablet 200 mg PO BID PRN 11/26/21 11/26/21 History (Pyridium) Patient History Medical History Acute UTI (urinary tract infection) [place] (acute kidney injury) Asthma Celiac disease Cellulitis Recurrent B/L LE - on prophylactic abx (Follows with Dr. Nielson). on chronic Cephalexin and Doxy Chronic back pain Chronic kidney disease Stage III > follows Dr. Fleming Chronic obstructive pulmonary disease Emphysema Cirrhosis of liver Hx of Hep C with cirrhosis COVID-19 Dehydration Depression Fever History of blood transfusion History of recurrent UTI (urinary tract infection) Hx MRSA infection several yrs ago Hx of cancer of lung s/p radiation (2012), recurrence (2019 in [facility]) s/p radiation- follows with heme/onc Hx of Clostridium difficile infection on Vanco 2x/week for prophylaxis Hx of deep venous thrombosis LLE (1976) Hx of hepatitis C 2013 > "resolved" Hx of non-Hodgkin's lymphoma s/p treatment in 2013 Hydronephrosis b/l chronic hydronephrosis requiring routine stent exchanges Hyperlipidemia Migraine Mood disorder Myelodysplasia (myelodysplastic syndrome) Diagnosed 07/09/21 by bone marrow biopsy. Being treated with Azacitidine and Procrit injections. 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 Pagan Thrombocytopenia Chronic (platelet baseline in the 40-70s over the past few months) Venous stasis dermatitis Surgical History H/O bursectomy Right knee History of bone marrow biopsy History of bronchoscopy History of carpal tunnel release Left History of cystoscopy Multiple Bilateral Retrograde Pyelogram (05/27/21): MAC at [facility] History of esophagogastroduodenoscopy (EGD) History of liver biopsy History of tooth extraction History of ureter stent MULTIPLE Hx of bladder repair surgery FOR PROLAPSE Hx of colonoscopy Hx of tonsillectomy Hx of tubal ligation Family History Unknown Heart disease Hypertension Mother Psoriasis Diabetes Social History Smoking Status: Former smoker Tobacco Type: Cigarettes Cigarettes Per Day: Quit 02/2011; Second Hand Exposure: No; Hx Alcohol Use: No Hx Substance Use: No Preferred Language: Mosotho Communication Ability: Unable Visual Impairment: No Limitations Hearing Ability: Normal [place]illa Machine Operator Required: No Beliefs That Will Affect Care: None marital status: / Current Living Situation: Family Current Living Situation Comment: Son and son's girlfriend current occupational status: retired How many Children do You have: 1 Other Information That Helps Us Care for You: No Feels Safe at Home: Yes Safety Concerns: Feels Safe At This Time Assistive Devices: CPAP Review of Systems Constitutional: + fever and + chills Eyes: no diplopia Ear, Nose, Mouth, Throat: no ear pain Respiratory: no cough Cardiovascular: no chest pain Gastrointestinal: no abdominal pain Genitourinary: as per Subjective / HPI Musculoskeletal: no back pain Integumentary: no rash Neurologic: no localized weakness Physical Exam Constitutional: no acute distress Eyes: no conjunctival abnormality ENMT: Ears: no hearing impairment Neck: trachea midline Respiratory: Patient is currently on BiPAP machine. She did not appear to be in respiratory distress. Breath sounds were present bilaterally. Cardiovascular: Rate/Rhythm: regular rate and regular rhythm Gastrointestinal (Abdomen): Soft and nondistended. Palpation did not cause pain Musculoskeletal: No calf tenderness Skin: no rashes Neurologic: moves all extremities Results & Data ([facility]) Vital Signs (Past 12 Hours) Vital Signs Temp Pulse Pulse Resp BP BP Pulse Ox 11/29/21 00:05 82 12 95 11/28/21 23:18 36.7 C 86 16 106/53 L 93 11/28/21 19:58 36.7 C 83 17 108/52 L 94 11/28/21 17:30 98 H 115/63 91 11/28/21 17:12 36.6 C 11/28/21 17:00 73 113/58 L 96 11/28/21 16:00 101 H 123/57 L 93 11/28/21 15:30 85 109/60 93 11/28/21 15:00 87 134/80 95 11/28/21 14:30 80 113/62 92 11/28/21 14:00 82 110/57 L 92 11/28/21 13:30 74 114/58 L 91 11/28/21 13:00 74 94 PG Care Time/CCT Total # of Minutes Spent Total Time Spent with Patient: Total time spent is greater than 50% in coordination of care (as documented) at patient's floor/unit and/or counseling patient: Coding Level of Care Code 11955 Inpt Consult Level 5 Diagnoses UTI (urinary tract infection) N39.0
[2021-11-29] MEDS: MEROPENEM 500 MG in SYRINGE 0 ML IV SCH ×3 (06:40→20:16)
[2021-11-29 06:46] LABS: Albumin Globulin Ratio 1.2 (0.9-2); Albumin Level 2.6 gm/dl (3.4-5.0); BUN Creatinine Ratio 35.8 (10-20); Bilirubin,Total 0.9 mg/dl (0.2-1.0); Calcium 8.1 mg/dl (8.5-10.1); Creatinine Clr Calc Pharmacy 51.6 ml/min; Est GFR (African American) 87.7 ml/min; Est GFR (Non-African American) 75.7 ml/min; Globulin 2.2 gm/dl (2.5-4.0); Magnesium 1.8 mg/dl (1.7-2.4); Phosphorus 3.7 mg/dl (2.5-4.9); Total Protein 4.8 gm/dl (6.0-8.3)
[2021-11-29 06:51] LABS: Nucleated RBC # (auto) 0.06 K/uL (0-0); Nucleated RBC % (auto) 4.7 %; Platelet Count 6 K/uL (130-400)
[2021-11-29 06:52] LABS: Giant Platelets 1+; Platelet Estimate SIGNIFIC DECREASED (Normal); Poikilocytosis Present; Schistocytes 1+
[2021-11-29 07:02] LABS: ALC (manual) 0.25 K/uL (1.2-3.4); ANC (manual) 0.93 K/uL (1.4-6.5); Blast # (manual) 0.01 K/uL (0-0); Blast Cells % (manual) 0.9 %; Hematocrit (blood only) 28.1 % (37-47); Lymphocytes # (manual) 0.25 K/uL (1.2-3.4); Lymphocytes % (manual) 20.2 %; Mean Corpuscular Hemoglobin 26.2 pg (25-34); Mean Corpuscular Volume 81.9 fL (80-100); Monocytes # (manual) 0.04 K/uL (0.11-0.59); Monocytes % (manual) 3.5 %; Neutrophils # (manual) 0.93 K/uL (1.4-6.5); Neutrophils % (manual) 75.4 %; RDW Coefficient of Variation 18.1 % (11.5-14.5); RDW Standard Deviation 53.6 fL (36.4-46.3); Red Blood Count 3.43 M/uL (4.2-5.4); White Blood Count 1.24 K/uL (4.8-10.8)
[2021-11-29] MEDS: ACETAMINOPHEN 500 MG TAB PO PRN (08:23)
[2021-11-29] MEDS: diphenhydrAMINE Capsule 25 MG CAP PO PRN (08:24)
[2021-11-29] MEDS: CETIRIZINE HCL 10 MG TABLET PO SCH (08:45)
[2021-11-29] MEDS: GABAPENTIN 400 MG CAP PO SCH (08:46)
[2021-11-29] MEDS: METOPROLOL SUCC 25MG EXT REL TAB PO SCH (08:46)
[2021-11-29] MEDS: MAGNESIUM OXIDE 400 MG TAB PO SCH (08:46)
[2021-11-29] MEDS: FOLIC ACID 1 MG TAB PO SCH (08:46)
[2021-11-29] MEDS: ADVANCED PROBIOTIC 1250 MG CAPSULE PO SCH (08:46)
[2021-11-29] MEDS: FERROUS SULFATE 325 MG TAB PO SCH (08:46)
[2021-11-29] MEDS: ACYCLOVIR 400 MG TAB PO SCH ×2 (08:46→22:43)
[2021-11-29] MEDS: TOPIRAMATE 100 MG TAB PO SCH ×2 (08:47→22:42)
[2021-11-29] MEDS: OXYBUTYNIN CHLORIDE XL 5 MG TABCR PO SCH (08:47)
[2021-11-29] MEDS: PANTOprazole 40 MG TAB PO SCH ×2 (08:47→22:42)
[2021-11-29] MEDS: FLUTICASONE/VILANTEROL 100/25MCG 14 PUFFS/INHALER INH SCH (08:48)
[2021-11-29] MEDS: HYDROCORTISONE SOD 50 MG in SYRINGE 0 ML IV SCH ×2 (08:55→20:16)
[2021-11-29] MEDS: CASPOFUNGIN 50 MG in SODIUM CHLORIDE 0.9% 250 ML IV SCH (08:55)
[2021-11-29] MEDS ORDERED: EPOETIN ALFA 40,000 UNITS/ML VIAL SQ ONE (09:00)
[2021-11-29 09:05] LABS: KPC Carbapenemase NOT DETECTED (NotDetected); NDM Carbapenemase NOT DETECTED (NotDetected)
[2021-11-29] MEDS: FILGRASTIM 480 MCG/1.6 ML VIAL SC SCH (10:10)
--- NOTE | 2021-11-29 11:47 | Consultation Report ---
MEDICAL ONCOLOGY CONSULTATION DATE OF SERVICE: 11/29/2021. REASON FOR CONSULTATION: Secondary MDS. HISTORY OF PRESENT ILLNESS: Aleja Duron is a pleasant, but unfortunate 66-year-old female, well known to [facility], status post lung cancer, non-Hodgkin lymphoma, and now with a secondary myelodysplasia. Aleja Haq has unfortunately returned to the hospital on multiple occasions over the past couple of months, most recently for upper GI bleeding and COVID-19. Most of Aleja Haq's most recent issues have been urologic in nature with frequent UTI including Klebsiella and Rachelle, status post bilateral urinary stents that were recently exchanged in 09/2021. She was recently discharged in early November thought to be due to COVID-19. She continues to myers with fatigue and refractory anemia, again secondary to myelodysplasia. She receives blood transfusion and Procrit as supportive measures. She received 5-azacitidine x1, which resulted in profound pancytopenia for which she has not been able to recover. Thus, I have been following her closely in the outpatient office in the hopes of avoiding hospitalization; however, unfortunately that has not been the case. Apparently, this time, she started coughing up blood on Sunday, her hemoglobin on presentation was 7.9 and again not surprisingly leukopenic with an absolute neutrophil count of 360. She was coagulopathic attributable to possible consumptive process. I have been asked to render opinion on the terminality of her condition. Aleja Haq and I have had multiple discussions in the past regarding this issue. She understands that myelodysplasia is not curable and secondary myelodysplasias are quite difficult to manage and control. Again, she received an initial cycle of 5-azacitidine, which unfortunately resulted in profound neutropenia and the subsequent cascade of hospitalizations thereafter. PAST MEDICAL HISTORY: Significant for cirrhosis of the liver, history of Clostridium difficile infection, COPD, chronic back pain, celiac disease, migraine headache, stroke, myelodysplasia, lung cancer, non-Hodgkin lymphoma, chronic kidney disease, pancytopenia. CURRENT MEDICATIONS: The list is lengthy. Pyridium 200 mg p.o. b.i.d. p.r.n., vitamin D2 50,000 units p.o. weekly, vancomycin 125 mg p.o. twice weekly, Topamax 200 mg p.o. at bedtime, Topamax 100 mg p.o. q.a.m., acyclovir 400 mg p.o. daily, Benadryl 25 mg p.o. q.6 hours p.r.n., cephalexin 500 mg p.o. every other day, sertraline 50 mg p.o. at bedtime, butalbital/acetaminophen/caffeine 1 tablet p.o. p.r.n. for headaches, quetiapine that is Seroquel 50 mg p.o. at bedtime, clonazepam 0.5 mg p.o. at bedtime, Symbicort 2 puffs inhaled b.i.d., oxycodone 5 mg p.o. q.4 hours p.r.n., potassium chloride 20 mEq p.o. daily, gabapentin 400 mg p.o. daily, doxycycline 100 mg p.o. every other day, Coenzyme Q10 200 mg p.o. daily, Myrbetriq 50 mg p.o. at bedtime, oxybutynin chloride 10 mg p.o. daily, rizatriptan 10 mg p.o. daily, methocarbamol 750 mg p.o. b.i.d., ProAir inhaler 2 puffs inhaled q.i.d., metoprolol 25 mg p.o. daily, acetaminophen 500 mg p.o. q.i.d. p.r.n., Prolia 60 mg q.6 months IV, medical marijuana 1 mL sublingual as directed p.r.n., vitamin E 400 international units p.o. daily, ferrous sulfate 325 mg p.o. daily, cyanocobalamin 1000 mcg IM monthly, magnesium oxide 400 mg p.o. q.a.m., folic acid 1 mg p.o. daily, cetirizine 10 mg p.o. daily. ALLERGY LIST: PROPOXYPHENE, GLUTEN, VENLAFAXINE, ZOSYN, ROCEPHIN, ALLOPURINOL, ____, SULFA, STRAWBERRY, PREGABALIN, LEVOFLOXACIN, IODINE, ADHESIVE, BEE VENOM. SOCIAL HISTORY: The patient is a . She lives with her son and son's girlfriend. She quit cigarettes in 02/2011. Negative for alcohol. FAMILY HISTORY: Mother suffered from diabetes mellitus and psoriasis. REVIEW OF SYSTEMS: As per HPI. PHYSICAL EXAMINATION: GENERAL: A pleasant 66-year-old female, awake, alert, appropriate, in no acute distress. VITAL SIGNS: Temperature 36.3, pulse 72, respiratory rate 18, blood pressure 108/63. SKIN: Warm, dry, noncyanotic. Scattered ecchymoses. No petechiae otherwise noted. No rashes or lesions. HEENT: Atraumatic, normocephalic. Eyes: PAULINE, EOMI. Nares patent without rhinorrhea or discharge. Throat is clear. Tongue is midline. Mucous membranes are moist. NECK: Supple without JVD or thyromegaly. LYMPHATICS: No cervical, supraclavicular, axillary or inguinal palpable nodes. HEART: Regular rate and rhythm. No clicks, rubs, murmurs or gallops. LUNGS: Diffuse rhonchi. Distant breath sounds. ABDOMEN: Soft, nontender, nondistended. EXTREMITIES: No clubbing, cyanosis or edema. NEUROLOGIC: She is awake, alert and oriented x3. Grossly intact otherwise. LABORATORY DATA: WBC count 1240, hemoglobin 9, platelet count 6, absolute neutrophil count 930. Sodium 137, potassium 4.0, chloride 108, carbon dioxide 24, creatinine 0.81, BUN 29, albumin 2.6. IMPRESSION: 1. Upper gastrointestinal bleeding. 2. Possible sepsis/urinary tract infection. 3. Coagulopathy/thrombocytopenia. 4. Pancytopenia attributable to myelodysplasia. 5. Acute hypoxic respiratory failure. 6. COVID-19. 7. Acute renal injury. 8. Hydronephrosis with ureteral stent placement. 9. History of Clostridium difficile infection. PLAN: Aleja Haq is a very complex and unfortunately a critically ill patient. She has survived 2 bouts of cancer, but now suffers from a secondary myelodysplasia, which cannot be cured. I carried out many discussions with Aleja Haq and family members regarding her condition. She has been largely transfusion dependent and receives erythropoietin. Patients with myelodysplasia generally succumb to either infection or bleeding. It would appear Aleja Haq has manifested both. I agree with current management. Regarding MDS, nothing further can be done with the exception of transfusional support when available and fixing the coagulopathy.. Made it very clear to Aleja Haq that she needs to consider DNR/DNI status and will continue to treat her supportively, but she should not be considered for any heroic measures moving forward. I will discuss the case further with Dr. Garrett. Thank you very much for allowing me to participate in her care. Job ID: [id number]
[2021-11-29] MEDS: oxyCODONE HCL IR 5 MG TAB (IMMEDIATE RELEASE) PO PRN ×2 (17:43→22:53)
--- NOTE | 2021-11-29 21:25 | Hospitalist Progress Note ---
Date of Service November 29, 2021 Assessment & Plan (1) UGIB (upper gastrointestinal bleed): Plan: Aleja Duron is a 66-year-old female with a history of HCV-induced cirrhosis s/p treatment with EGD last in 10/2019 not demonstrating varices ([facility] - Dr. 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 requiring regular Procrit/Neuopgen, SACHA, urinary incontinence, COPD, prothrombin factor II mutation, celiac disease, previous CVA, recurrent cellulitis requiring chronic doxycycline, frequent UTI with previous bouts including ESBL Klebsiella and Rachelle, s/p bilateral urinary stent placements recently exchanged in 09/2021 who was recently discharged on 11/22 sepsis thought to be due to COVID-19 (consideration also given to urinary source, but UCx given negative) who presents to [facility] for evaluation of spitting up blood and ?melena, thought to be hematemesis, and epistaxis. She was found to have significant coagulopathy and thrombocytopenia on arrival. SHortly after arrival, she spiked a fever and became hypotensive, hypoxic. Sepsis- with recurrent UTI. Has a h/o fungal infections. With septic shock requiring vasopressors-now off pressors and blood pressures are improved with ureteral stents in place, last exchanged stents 09/2021 -Appreciate urology consultation-two high risk for ureteral stent exchange- recommends no acute intervention at this time given her multiple acute issues including being Covid positive-recommends continuing antibiotics, antifungals, supportive care, and surgical intervention when medically stable. Also recommends considering nephrostomy tube placement to be done under local anesthesia-discussed with patient and she will consider nephrostomy tubes if she would even be accepted at an outside facility for such -continue broad spectrum abx with Meropenem and Caspofungin -follow Ur cx-GNR and no ID yet -follow BCxs-NGTD -started hydrocortisone IV for pressor support-taper down to twice daily for today and once daily for tomorrow, then stop appreciate ICU management-has since been downgraded out of the ICU on 11/28 -Oncology recommends continuing on po dilfucan for prophylaxis at discharge also plan to restart doxy and keflex for prophylaxis at dc -Arterial line discontinued today Suspected UGIB - History primarily concerning for hematemesis/UGIB based on recent odynophagia, "spitting up blood" (non-projectile), nausea, decreased appetite. But could also be secondary to hemoptysis or epistaxis - Known history of HCV-induced cirrhosis. Last EGD seems to be 10/2019, per Dr. Chavez's PSH note, which did NOT reveal any esophageal varices; did show Z-line irregularities and esophageal plaques c/w candidiasis -no need for octreotide with no h/o known varices - In setting of significant coagulopathy (INR 2.5, PTT 77.2, Plt 11) -- notably progressed since prior admission , coagulopathy now improved with FFP and Vit K - Hgb 7.9 on arrival, then 6.9,received 2 units PRBCs from [facility] as she has antibodies on 11/28-hemoglobin now up appropriately to 9.0 - appreciate GI consult--> no urgent EGD given tenuous status and she has stopped bleeding, consider outpt EGD -no BM since admission makes GI bleed less likely; perhaps was epistaxis and hemoptysis -Initially received PPI gtt but has now been converted to PPI po bid -advance diet to gluten free - If emergent utilization of blood required, may require transfer to tertiary care facility with larger blood bank given limitations here and patient's difficult situation - Consider TXA if needed -follow CBC Coagulopathy / Thrombocytopenia - Admission labs concerning for INR 2.5 / PTT 77.2 / PLT 11 in setting of H&H 7.9 on arrival - notably worse from previous. ALso D-dimer 5000 - most likely etiology secondary to DIC from sepsis, in setting of MDS, liver disease with HCV history, poor nutrition (Vit K deficiency possibility) - s/p 2 units FFP and Vit K and now coags normalized -plts 6 today , no further bleeding, but hematology does recommend transfusion of platelets-gave platelets on 11/29 follow CBC, PT/PTT/INR, D-dimer in the morning Pancytopenia/secondary MDS - Patient with known history of severe pancytopenia secondary to MDS that arose from treatment of marginal zone lymphoma, SCLC - transfuse plts, PRBCs as needed-1 unit platelets given on 11/29 -give Neupogen 480 mcg SQ daily x 3 days-final dose on 11/29 -follow CBC -She is transfusion dependent -Give Procrit 40,000 units x 1 on 11/29 -Appreciate oncology consultation-she is approaching end-of-life but wants to maintain transfusional support and treatment of infections and bleeding. She also desires to continue to be a full code for resuscitation despite multiple conversations regarding the futility of such Acute Hypoxic Respiratory Failure - Upon arrival here, patient did not have O2 requirement -- however, shortly into her course, did begin desaturating into 70-80s requiring NC/OxyMask - ABG obtained shortly after demonstrating acidemia to 7.23 without hypercapnia; +adequate oxygenation with O2 therapy -now down to room air - secondary to sepsis and does have recent COVID infection, COPD, PNA - Patient did again test positive for COVID-19 on arrival - initially tested positive approx. 7-8 days prior - CXR demonstrating new L basilar opacities with emphysema, repeat CXR with resolution of LLL opacity-likely atelectasis rather than pneumonia -MRSA swab neg COVID-19 - Patient recently tested positive again for COVID-19, first time approx. ~7 day s ago at the end of October - During last hospitalization, was not hypoxic and therefore was not started on dexamethasone / remdesivir -no steroids needed as her hypoxia is not from COVID - Isolation precautions for now Acute Kidney Injury - Has history of CKD with creatinine baseline around 0.7 - 0.9 - On arrival, patient found to have BUN 35 / Cr 1.26 ,now normal - Suspect largely prerenal in the setting of suspected hemorrhage, as above -received volume support with transfusion and maintenance fluids - Monitor BMP, UOP -Maintain [place] catheter for now History of Hydronephrosis with Ureteral Stent Placement - Recent history of ureteral stents placed in 07/2021 and 09/2021 (exchanged) - Unfortunately, had associated UTI that grew ESBL Klebsiella, alongside Rachelle glabrata -follow UR cx as above -consult Urology about stent exchange-as above - continue meropenem and caspofungin although caspo not great for source I believe Obstructive Sleep Apnea - Utilizes CPAP qHS -- utilize while here History of C. difficile Infection-no diarrhea here since admisison - On chronic vancomycin suppressive therapy --continue this prophylactic dose twice a week Code: Full code on admission, continue for now but overall very poor prognosis as discussed with her and her son on phone, consider Hospice if continues to decline. Patient maintains she would like to remain a full code on multiple occasions Dispo: Continued stay on PCU. Will consult PT/OT to see if we will need rehab placement PPX: SCDs for now, stop if bruising; pharmacologic PPX contraindicated in setting of coagulopathy (2) Sepsis: (3) UTI (urinary tract infection): (4) COVID-19: (5) Neutropenia: (6) Chronic kidney disease: (7) Pancytopenia: (8) MDS (myelodysplastic syndrome): (9) Anemia: (10) Stroke: (11) Migraine: (12) Celiac disease: (13) Prothrombin [id number] mutation: (14) Chronic back pain: (15) Urge and stress incontinence: (16) COPD (chronic obstructive pulmonary disease): (17) Hx of Clostridium difficile infection: (18) Cirrhosis of liver: Admission and Anticipated Discharge Date Admission Date: November 26, 2021 Subjective Patient reports feeling a little better today. She denies abdominal pains, no bowel movement yet since admission, no nausea or vomiting. Has been n.p.o. in case of urologic procedure, but I discussed her care with urology and they feel she is too high risk for stent exchange. Discussed with her the possibility of transferring for nephrostomy tubes as per urology's recommendation to tertiary care center and she would like to think about it and discuss with her children. Again discussed her poor prognosis and CODE STATUS and she desires to be full code and continue all treatment and return to the hospital. Review of Systems Review of Systems: All systems reviewed & are unremarkable except as noted in HPI & below Physical Exam Constitutional: WD/WN, vitals as above + ill appearing and + thin Eyes: + anicteric sclerae Neck: trachea midline, no thyromegaly Respiratory: normal respiratory effort and + cough Auscultation: + diminished lung sounds (throughout) and + rhonchi; no wheezes Cardiovascular: RRR, no murmur, no edema Chest (Breasts): Chest: normal inspection of chest Gastrointestinal (Abdomen): normal bowel sounds, soft, nontender, no hepatosplenomegaly Musculoskeletal: Extremities: extremities normal to inspection; no cyanosis and no clubbing Skin: no rashes, warm and dry + ecchymosis (numerous areas of bruising and ecchymosis, petechiae on extremities) Neurologic: moves all extremities and awake; no focal motor deficits Psychiatric: Orientation: alert, oriented x 3 and cooperative Genitourinary: + abnormal external appearance ([place] catheter with brown urine with sediment ) Lymphatic: no lymphedema Results & Data Results & Data ([facility]) Vital Signs (Past 12 Hours) Vital Signs Temp Pulse Pulse Resp BP BP BP 11/29/21 19:43 36.5 C 90 18 104/53 L 11/29/21 15:21 36.6 C 88 20 132/68 11/29/21 11:58 36.4 C L 76 20 122/58 L 11/29/21 11:26 36.4 C 70 128/67 11/29/21 10:59 65 11/29/21 10:34 36.5 C 67 123/61 11/29/21 09:34 36.6 C 68 127/62 Pulse Ox 11/29/21 19:43 93 11/29/21 15:21 95 11/29/21 11:58 93 11/29/21 11:26 93 11/29/21 10:59 11/29/21 10:34 95 11/29/21 09:34 92 Laboratory Results 11/29/21 11/29/21 11/27/21 Range/Units 05:24 05:24 00:52 WBC 1.24 L (4.8-10.8) K/uL RBC 3.43 L (4.2-5.4) M/uL Hgb 9.0 L (12.0-16.0) g/dL Hct 28.1 L (37-47) % MCV 81.9 (80-100) fL MCH 26.2 (25-34) pg MCHC 32.0 (32-36) g/dL RDW Std Deviation 53.6 H (36.4-46.3) fL RDW Coeff of Irasema 18.1 H (11.5-14.5) % Plt Count 6 L* (130-400) K/uL Absolute Nucleated RBC 0.06 H (0-0) K/uL Nucleated RBC % (auto) 4.7 % Neutrophils % (Manual) 75.4 % Lymphocytes % (Manual) 20.2 % Monocytes % (Manual) 3.5 % Blast Cells % (Manual) 0.9 % Neutrophils # (Manual) 0.93 L (1.4-6.5) K/uL Total Absolute Neuts 0.93 L* (1.4-6.5) K/uL Lymphocytes # (Manual) 0.25 L (1.2-3.4) K/uL Total Abs Lymphocytes 0.25 L (1.2-3.4) K/uL Monocytes # (Manual) 0.04 L (0.11-0.59) K/uL Blast Cells # (Man) 0.01 H (0-0) K/uL Hyposegmented Neuts 1+ Platelet Estimate SIGNIFIC DECREASED (Normal) Giant Platelets 1+ Poikilocytosis Present Schistocytes 1+ Sodium 137 (136-145) mmol/L Potassium 4.0 (3.5-5.1) mmol/L Chloride 108 H (98-107) mmol/L Carbon Dioxide 24 (21-32) mmol/L Anion Gap 5 (3-11) BUN 29 H (6-23) mg/dl Creatinine 0.81 (0.6-1.2) mg/dl Est Cr Clr Drug Dosing 51.6 ml/min Est GFR ( Amer) 87.7 ml/min Est GFR (Non-Af Amer) 75.7 ml/min BUN/Creatinine Ratio 35.8 H (10-20) Glucose 112 H (70-99(Fasting)) mg/dl Calcium 8.1 L (8.5-10.1) mg/dl Phosphorus 3.7 (2.5-4.9) mg/dl Magnesium 1.8 (1.7-2.4) mg/dl Total Bilirubin 0.9 (0.2-1.0) mg/dl AST 9 L (13-39) U/L ALT 11 (7-52) U/L Alkaline Phosphatase 55 (34-104) U/L Total Protein 4.8 L (6.0-8.3) gm/dl Albumin 2.6 L (3.4-5.0) gm/dl Globulin 2.2 L (2.5-4.0) gm/dl Albumin/Globulin Ratio 1.2 (0.9-2) IMP Carbapenemase (STEPHANIE) NOT DETECTED (NotDetected) KPC Carbapenemase (STEPHANIE) NOT DETECTED (NotDetected) NDM Carbapenemase (STEPHANIE) NOT DETECTED (NotDetected) OXA Carbapenemase (STEPHANIE) NOT DETECTED (NotDetected) VIM Carbapenemase (STEPHANIE) NOT DETECTED (NotDetected) Blood Type Antibody Screen Antibody Identification Antibody ID Comment Crossmatch 11/26/21 Range/Units 21:18 WBC (4.8-10.8) K/uL RBC (4.2-5.4) M/uL Hgb (12.0-16.0) g/dL Hct (37-47) % MCV (80-100) fL MCH (25-34) pg MCHC (32-36) g/dL RDW Std Deviation (36.4-46.3) fL RDW Coeff of Irasema (11.5-14.5) % Plt Count (130-400) K/uL Absolute Nucleated RBC (0-0) K/uL Nucleated RBC % (auto) % Neutrophils % (Manual) % Lymphocytes % (Manual) % Monocytes % (Manual) % Blast Cells % (Manual) % Neutrophils # (Manual) (1.4-6.5) K/uL Total Absolute Neuts (1.4-6.5) K/uL Lymphocytes # (Manual) (1.2-3.4) K/uL Total Abs Lymphocytes (1.2-3.4) K/uL Monocytes # (Manual) (0.11-0.59) K/uL Blast Cells # (Man) (0-0) K/uL Hyposegmented Neuts Platelet Estimate (Normal) Giant Platelets Poikilocytosis Schistocytes Sodium (136-145) mmol/L Potassium (3.5-5.1) mmol/L Chloride (98-107) mmol/L Carbon Dioxide (21-32) mmol/L Anion Gap (3-11) BUN (6-23) mg/dl Creatinine (0.6-1.2) mg/dl Est Cr Clr Drug Dosing ml/min Est GFR ( Amer) ml/min Est GFR (Non-Af Amer) ml/min BUN/Creatinine Ratio (10-20) Glucose (70-99(Fasting)) mg/dl Calcium (8.5-10.1) mg/dl Phosphorus (2.5-4.9) mg/dl Magnesium (1.7-2.4) mg/dl Total Bilirubin (0.2-1.0) mg/dl AST (13-39) U/L ALT (7-52) U/L Alkaline Phosphatase (34-104) U/L Total Protein (6.0-8.3) gm/dl Albumin (3.4-5.0) gm/dl Globulin (2.5-4.0) gm/dl Albumin/Globulin Ratio (0.9-2) IMP Carbapenemase (STEPHANIE) (NotDetected) KPC Carbapenemase (STEPHANIE) (NotDetected) NDM Carbapenemase (STEPHANIE) (NotDetected) OXA Carbapenemase (STEPHANIE) (NotDetected) VIM Carbapenemase (STEPHANIE) (NotDetected) Blood Type B Positive Antibody Screen POSITIVE A Antibody Identification Auto [place] Agglutinin Antibody ID Comment Cancelled Crossmatch See Detail PG Care Time/CCT Total # of Minutes Spent Total Time Spent with Patient: Total time spent is greater than 50% in coordination of care (as documented) at patient's floor/unit and/or counseling patient: Coding Level of Care Code 96772 Subseq Hosp Care Lvl 3 Diagnoses UGIB (upper gastrointestinal bleed) K92.2 Sepsis A41.9 UTI (urinary tract infection) N39.0 COVID-19 U07.1 Neutropenia D70.8 Neutropenia type: other Chronic kidney disease N18.9 Pancytopenia D61.818 MDS (myelodysplastic syndrome) D46.9 Anemia D61.89 Anemia type: bone marrow failure Bone marrow failure anemia type: other bone marrow failure Stroke I63.9 Migraine G43.909 Celiac disease K90.0 Prothrombin [id number] mutation D68.52 Chronic back pain M54.9; G89.29 Urge and stress incontinence N39.46 COPD (chronic obstructive pulmonary disease) J44.9 Hx of Clostridium difficile infection Z86.19 Cirrhosis of liver K74.60 (1) Neutropenia Neutropenia type: other Qualified Code(s): D70.8 - Other neutropenia (2) Anemia Anemia type: bone marrow failure Bone marrow failure anemia type: other bone marrow failure Qualified Code(s): D61.89 - Other specified aplastic anemias and other bone marrow failure syndromes
[2021-11-29] MEDS: SERTRALINE HCL 50 MG TABLET PO SCH (22:43)
[2021-11-29] MEDS: QUEtiapine FUMARATE 25 MG TABLET PO SCH (22:43)
[2021-11-29] MEDS: MIRABEGRON ER 25 MG TAB PO SCH (22:44)
[2021-11-29] MEDS: METHOCARBAMOL 750 MG TABLET PO PRN (22:53)
[2021-11-29] MEDS: clonazePAM 0.5 MG TAB PO SCH (22:53)
[2021-11-30] MEDS: MEROPENEM 500 MG in SYRINGE 0 ML IV SCH ×3 (04:48→21:07)
[2021-11-30 07:08] LABS: INR 1.1 (0.9-1.1); Partial Thromboplastin Ratio 1.7; Partial Thromboplastin Time 44.9 Seconds (21.0-31.0); Prothrombin Time 11.1 Seconds (9.0-12.0)
[2021-11-30 07:11] LABS: Hematocrit (blood only) 29.3 % (37-47); Hemoglobin 9.3 g/dL (12.0-16.0); Mean Corpuscular Hemoglobin 26.4 pg (25-34); Mean Corpuscular Hgb Conc 31.7 g/dL (32-36); Mean Corpuscular Volume 83.2 fL (80-100); Nucleated RBC # (auto) 0.04 K/uL (0-0); Platelet Count 11 K/uL (130-400); RDW Coefficient of Variation 17.9 % (11.5-14.5); RDW Standard Deviation 54.1 fL (36.4-46.3); Red Blood Count 3.52 M/uL (4.2-5.4)
[2021-11-30 07:12] LABS: Eosinophils # (auto) 0.01 K/uL (0-0.5); Eosinophils % (auto) 0.8 %; Hypogranular Neutrophils 1+; Immature Granulocytes # (auto) 0.05 K/uL (0.00-0.02); Immature Granulocytes % (auto) 4.2 %; Lymphocytes % (auto) 41.7 %; Monocytes # (auto) 0.12 K/uL (0.11-0.59); Neutrophils # (auto) 0.52 K/uL (1.4-6.5); Neutrophils % (auto) 43.3 %; Platelet Estimate SIGNIFIC DECREASED (Normal); Tear Drop Cells 1+; Toxic Vacuolation 1+
[2021-11-30 08:02] LABS: Albumin Globulin Ratio 1.2 (0.9-2); Albumin Level 2.7 gm/dl (3.4-5.0); BUN Creatinine Ratio 30.5 (10-20); Bilirubin,Total 0.8 mg/dl (0.2-1.0); Calcium 8.2 mg/dl (8.5-10.1); Creatinine Clr Calc Pharmacy 50.9 ml/min; Est GFR (African American) 86.4 ml/min; Est GFR (Non-African American) 74.6 ml/min; Globulin 2.3 gm/dl (2.5-4.0); Magnesium 1.7 mg/dl (1.7-2.4); Phosphorus 3.4 mg/dl (2.5-4.9); Potassium 3.4 mmol/L (3.5-5.1)
[2021-11-30] MEDS: CASPOFUNGIN 50 MG in SODIUM CHLORIDE 0.9% 250 ML IV SCH (08:17)
[2021-11-30] MEDS: FOLIC ACID 1 MG TAB PO SCH (08:18)
[2021-11-30] MEDS: OXYBUTYNIN CHLORIDE XL 5 MG TABCR PO SCH (08:18)
[2021-11-30] MEDS: METOPROLOL SUCC 25MG EXT REL TAB PO SCH (08:19)
[2021-11-30] MEDS: MAGNESIUM OXIDE 400 MG TAB PO SCH (08:20)
[2021-11-30] MEDS: FERROUS SULFATE 325 MG TAB PO SCH (08:20)
[2021-11-30] MEDS: CETIRIZINE HCL 10 MG TABLET PO SCH (08:21)
[2021-11-30] MEDS: ADVANCED PROBIOTIC 1250 MG CAPSULE PO SCH (08:22)
[2021-11-30] MEDS: PHENAZOPYRIDINE HCL 200 MG TAB PO PRN ×2 (08:25→18:06)
[2021-11-30] MEDS: ACYCLOVIR 400 MG TAB PO SCH ×2 (08:26→22:49)
[2021-11-30] MEDS: TOPIRAMATE 100 MG TAB PO SCH ×2 (08:26→22:50)
[2021-11-30] MEDS: METHOCARBAMOL 750 MG TABLET PO PRN ×2 (08:28→22:50)
[2021-11-30] MEDS ORDERED: POTASSIUM CHLORIDE CRTAB 20 MEQ TABCR PO STA (08:29)
[2021-11-30] MEDS: PANTOprazole 40 MG TAB PO SCH ×2 (08:29→22:51)
[2021-11-30] MEDS: FLUTICASONE/VILANTEROL 100/25MCG 14 PUFFS/INHALER INH SCH (08:29)
[2021-11-30] MEDS: GABAPENTIN 400 MG CAP PO SCH (08:29)
[2021-11-30 08:42] LABS: D Dimer 3470 ug/L FEU (0-500)
[2021-11-30] MEDS: oxyCODONE HCL IR 5 MG TAB (IMMEDIATE RELEASE) PO PRN ×3 (08:47→22:49)
[2021-11-30] MEDS ORDERED: HYDROCORTISONE SOD 50 MG in SYRINGE 0 ML IV SCH (09:00)
--- NOTE | 2021-11-30 12:13 | Communication Note ---
Date of Service: November 30, 2021 Follow-up acute UTI, bilateral stents in place. Chart reviewed. Patient was not seen today due to COVID status. Remains afebrile. Lab work reviewed - Creatinine 0.82, WBC 1.20, Hgb 9.3, Platelets 11. Per chart review, she has received PRBCs, FFP, and platelets during admission. Urine culture grew Klebsiella ESBL, sensitive to Meropenem. Blood cultures preliminary no growth x 48 hours. Remains on IV Meropenem and Caspofungin. Plan of care reviewed with Dr. Marroquin. Creatinine within normal limits and blood cultures showing no growth to date. Patient has chronic obstructive issues currently managed with bilateral stent exchanges. No acute intervention at this time given her multiple acute/chronic issues including COVID positive. Consider surgical intervention when medically stable and recovered from COVID. Can consider nephrostomy tubes in future but not acutely - her thrombocytopenia likely precludes this option at present. Please contact our service if any questions or acute changes in patient status.
--- NOTE | 2021-11-30 19:37 | Hospitalist Progress Note ---
Date of Service November 30, 2021 Assessment & Plan (1) Sepsis: Plan: Aleja Duron is a 66-year-old female with a history of HCV-induced cirrhosis s/p treatment with EGD last in 10/2019 not demonstrating varices ([facility] - Dr. 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 requiring regular Procrit/Neuopgen, SACHA, urinary incontinence, COPD, prothrombin factor II mutation, celiac disease, previous CVA, recurrent cellulitis requiring chronic doxycycline, frequent UTI with previous bouts including ESBL Klebsiella and Rachelle, s/p bilateral urinary stent placements recently exchanged in 09/2021 who was recently discharged on 11/22 sepsis thought to be due to COVID-19 (consideration also given to urinary source, but UCx given negative) who presents to [facility] for evaluation of spitting up blood and ?melena, thought to be hematemesis, and epistaxis. She was found to have significant coagulopathy and thrombocytopenia on arrival. SHortly after arrival, she spiked a fever and became hypotensive, hypoxic. Sepsis- with recurrent UTI. Has a h/o fungal infections. With septic shock requiring vasopressors-now off pressors and blood pressures are improved with ureteral stents in place, last exchanged stents 09/2021 -Appreciate urology consultation-two high risk for ureteral stent exchange- recommends no acute intervention at this time given her multiple acute issues including being Covid positive-recommends continuing antibiotics, antifungals, supportive care, and surgical intervention when medically stable. Also recommends considering nephrostomy tube placement to be done under local anesthesia-discussed with patient and she does not want to try for transfer nephrostomy tubes, and furthermore I do not think anyone would perform this with her platelets as low as they are Urine culture growing ESBL Klebsiella -continue Meropenem given allergies to sulfa and fluoroquinolones which this bacteria is also sensitive to -Continue Caspofungin for 1 more day and if still no fungal growth, will discontinue -follow BCxs-NGTD -started hydrocortisone IV for pressor support-tapered down and now will stop after today appreciate ICU management-has since been downgraded out of the ICU on 11/28 -Oncology recommends continuing on po diflucan for prophylaxis at discharge also plan to restart doxy and keflex for prophylaxis at dc -Follow CBC, CMP, magnesium, phosphorus in the morning (2) UGIB (upper gastrointestinal bleed): Plan: Suspected UGIB - History primarily concerning for hematemesis/UGIB based on recent odynophagia, "spitting up blood" (non-projectile), nausea, decreased appetite. But could also be secondary to hemoptysis or epistaxis - Known history of HCV-induced cirrhosis. Last EGD seems to be 10/2019, per Dr. Chavez's [facility] note, which did NOT reveal any esophageal varices; did show Z-line irregularities and esophageal plaques c/w candidiasis -no need for octreotide with no h/o known varices - In setting of significant coagulopathy (INR 2.5, PTT 77.2, Plt 11) -- notably progressed since prior admission , coagulopathy now improved with FFP and Vit K - Hgb 7.9 on arrival, then 6.9,received 2 units PRBCs from [place] as she has antibodies on 11/28-hemoglobin now up appropriately to 9.3 and stable - appreciate GI consult--> no urgent EGD given tenuous status and she has st opped bleeding, consider outpt EGD -no BM since admission for 3 days makes GI bleed less likely; perhaps was epistaxis and hemoptysis -Initially received PPI gtt but has now been converted to PPI po bid -Tolerating gluten free diet - If emergent utilization of blood required, may require transfer to tertiary care facility with larger blood bank given limitations here and patient's difficult situation - Consider TXA if needed -follow CBC (3) Coagulopathy: Plan: Coagulopathy / Thrombocytopenia - Admission labs concerning for INR 2.5 / PTT 77.2 / PLT 11 in setting of H&H 7.9 on arrival - notably worse from previous. ALso D-dimer 5000 - most likely etiology secondary to DIC from sepsis, in setting of MDS, liver disease with HCV history, poor nutrition (Vit K deficiency possibility) - s/p 2 units FFP and Vit K and now coags normalized -plts 6 on 11/29 and received transfusion of platelets -Platelets up to 11 on 11/30-hold off on further platelet transfusion if platelets greater than 10 as long as no bleeding Follow CBC (4) Acute respiratory failure with hypoxia: Plan: Acute Hypoxic Respiratory Failure - Upon arrival here, patient did not have O2 requirement -- however, shortly into her course, did begin desaturating into 70-80s requiring NC/OxyMask - ABG obtained shortly after demonstrating acidemia to 7.23 without hypercapnia; +adequate oxygenation with O2 therapy -now down to room air for many days - secondary to sepsis and does have recent COVID infection, COPD, PNA - Patient did again test positive for COVID-19 on arrival - initially tested positive approx. 7-8 days prior - CXR demonstrating new L basilar opacities with emphysema, repeat CXR with resolution of LLL opacity-likely atelectasis rather than pneumonia -MRSA swab neg (5) UTI (urinary tract infection): Plan: History of Hydronephrosis with Ureteral Stent Placement - Recent history of ureteral stents placed in 07/2021 and 09/2021 (exchanged) - Unfortunately, had associated UTIs since that time-currently with ESBL Klebsiella -consult Urology about stent exchange-as above - continue meropenem (6) AURORA (acute kidney injury): Plan: Acute Kidney Injury - Has history of CKD with creatinine baseline around 0.7 - 0.9 - On arrival, patient found to have BUN 35 / Cr 1.26 ,now normal - Suspect largely prerenal in the setting of suspected hemorrhage, as above -received volume support with transfusion and maintenance fluids - Monitor BMP, UOP -Plan to remove [place] catheter in the morning (7) COVID-19: Plan: COVID-19 - Patient recently tested positive again for COVID-19, first time approx. ~7 days ago at the end of October - During last hospitalization, was not hypoxic and therefore was not started on dexamethasone / remdesivir -no steroids needed as her hypoxia is not from COVID - Isolation precautions for now until infection control improves removal precautions (8) Chronic kidney disease: Plan: CKD stage II-III (9) Pancytopenia: Plan: Pancytopenia/secondary MDS - Patient with known history of severe pancytopenia secondary to MDS that arose from treatment of marginal zone lymphoma, SCLC - transfuse plts, PRBCs as needed-1 unit platelets given on 11/29 -give Neupogen 480 mcg SQ daily x 3 days-final dose on 11/29 -follow CBC -She is transfusion dependent -Give Procrit 40,000 units x 1 on 11/29 -Appreciate oncology consultation-she is approaching end-of-life but wants to maintain transfusional support and treatment of infections and bleeding. She also desires to continue to be a full code for resuscitation despite multiple conversations regarding the futility of such (10) MDS (myelodysplastic syndrome): Plan: As above (11) Migraine: Plan: Continue Topamax, Fioricet as needed (12) Celiac disease: Plan: Needs gluten-free diet (13) Prothrombin [id number] mutation: Plan: With a history of VTE, no longer on anticoagulation given severe pancytopenia and history of bleeding (14) Urge and stress incontinence: Plan: Continue oxybutynin Removing [place] catheter (15) COPD (chronic obstructive pulmonary disease): Plan: With a history of smoking and lung cancer Nebs as needed (16) Hx of Clostridium difficile infection: Plan: History of C. difficile Infection-with 2 loose stools on 11/30 - On chronic vancomycin suppressive therapy twice weekly -Increase vancomycin 125 Mg p.o. once daily while on antibiotics -Check C. difficile if has more than 3 loose stools in a 24-hour timeframe (17) Cirrhosis of liver: Plan: Noted with a history of hep C that has been treated (18) SACHA (obstructive sleep apnea): Plan: Obstructive Sleep Apnea - Utilizes CPAP qHS -- utilize while here Plan: Code: Full code on admission, continue for now but overall very poor prognosis as discussed with her and her son on phone, consider Hospice if continues to decline. Patient maintains she would like to remain a full code on multiple occasions Dispo: Continued stay on PCU. Appreciate PT/OT consultations, however patient desires to return home with home health upon discharge She needs 5 more days of IV antibiotics and will likely end up staying in the hospital to complete this course PPX: SCDs for now, stop if bruising; pharmacologic PPX contraindicated in setting of coagulopathy I discussed her care with her son on the phone on 11/28 as well as 11/30 Admission and Anticipated Discharge Date Admission Date: November 26, 2021 Subjective Patient reports feeling better today. She got out of bed with therapy and walked to the toilet and back for the first time in 4 days. She had 2 loose stools today. No abdominal pain. Review of Systems Review of Systems: All systems reviewed & are unremarkable except as noted in HPI & below Physical Exam Constitutional: + ill appearing and + thin Eyes: + anicteric sclerae Neck: trachea midline, no thyromegaly Respiratory: normal respiratory effort; no cough Auscultation: + diminished lung sounds (throughout); no rhonchi and no wheezes Cardiovascular: RRR, no murmur, no edema Chest (Breasts): Chest: normal inspection of chest Gastrointestinal (Abdomen): normal bowel sounds, soft, nontender, no hepatosplenomegaly Musculoskeletal: Extremities: extremities normal to inspection; no cyanosis and no clubbing Skin: no rashes, warm and dry + ecchymosis (numerous areas of bruising and ecchymosis, petechiae on extremities) Neurologic: moves all extremities and awake; no focal motor deficits Psychiatric: A+Ox3, euthymic affect Orientation: cooperative Genitourinary: + abnormal external appearance ([place] catheter with brown urine with sediment ) Lymphatic: no lymphedema Results & Data Results & Data ([facility]) Vital Signs (Past 12 Hours) Vital Signs Temp Pulse Pulse Pulse Resp BP Pulse Ox 11/30/21 16:00 76 11/30/21 15:31 36.9 C 83 16 123/55 L 92 11/30/21 13:28 36.5 C 82 18 115/52 L 93 11/30/21 13:02 11/30/21 08:00 36.4 C L 82 15 134/55 L 94 Pulse Ox Pulse Ox 11/30/21 16:00 11/30/21 15:31 11/30/21 13:28 11/30/21 13:02 94 95 11/30/21 08:00 Laboratory Results 11/30/21 11/30/21 11/30/21 Range/Units 05:40 05:40 05:40 WBC 1.20 L (4.8-10.8) K/uL RBC 3.52 L (4.2-5.4) M/uL Hgb 9.3 L (12.0-16.0) g/dL Hct 29.3 L (37-47) % MCV 83.2 (80-100) fL MCH 26.4 (25-34) pg MCHC 31.7 L (32-36) g/dL RDW Std Deviation 54.1 H (36.4-46.3) fL RDW Coeff of Irasema 17.9 H (11.5-14.5) % Plt Count 11 L* D (130-400) K/uL Immature Gran % (Auto) 4.2 % Neut % (Auto) 43.3 % Lymph % (Auto) 41.7 % [place] % (Auto) 10.0 % Eos % (Auto) 0.8 % Baso % (Auto) 0.0 % Neut # (Auto) 0.52 L* (1.4-6.5) K/uL Lymph # (Auto) 0.50 L (1.2-3.4) K/uL [place] # (Auto) 0.12 (0.11-0.59) K/uL Eos # (Auto) 0.01 (0-0.5) K/uL Baso # (Auto) 0.00 (0-0.2) K/uL Immature Gran # (Auto) 0.05 H (0.00-0.02) K/uL Absolute Nucleated RBC 0.04 H (0-0) K/uL Nucleated RBC % (auto) 3.0 % Hyposegmented Neuts 1+ Hypogranular Neuts 1+ Toxic Vacuolation 1+ Platelet Estimate SIGNIFIC DECREASED (Normal) Tear Drop Cells 1+ PT 11.1 (9.0-12.0) Seconds INR 1.1 (0.9-1.1) APTT 44.9 H (21.0-31.0) Seconds PTT Ratio 1.7 D-Dimer 3470 H* (0-500) ug/L FEU Sodium 140 (136-145) mmol/L Potassium 3.4 L (3.5-5.1) mmol/L Chloride 108 H (98-107) mmol/L Carbon Dioxide 27 (21-32) mmol/L Anion Gap 5 (3-11) BUN 25 H (6-23) mg/dl Creatinine 0.82 (0.6-1.2) mg/dl Est Cr Clr Drug Dosing 50.9 ml/min Est GFR ( Amer) 86.4 ml/min Est GFR (Non-Af Amer) 74.6 ml/min BUN/Creatinine Ratio 30.5 H (10-20) Glucose 95 (70-99(Fasting)) mg/dl Calcium 8.2 L (8.5-10.1) mg/dl Phosphorus 3.4 (2.5-4.9) mg/dl Magnesium 1.7 (1.7-2.4) mg/dl Total Bilirubin 0.8 (0.2-1.0) mg/dl AST 10 L (13-39) U/L ALT 13 (7-52) U/L Alkaline Phosphatase 57 (34-104) U/L Total Protein 5.0 L (6.0-8.3) gm/dl Albumin 2.7 L (3.4-5.0) gm/dl Globulin 2.3 L (2.5-4.0) gm/dl Albumin/Globulin Ratio 1.2 (0.9-2) PG Care Time/CCT Total # of Minutes Spent Total Time Spent with Patient: Total time spent is greater than 50% in coordination of care (as documented) at patient's floor/unit and/or counseling patient: Coding Level of Care Code 14637 Subseq Hosp Care Lvl 3 Diagnoses UGIB (upper gastrointestinal bleed) K92.2 Sepsis A41.9 UTI (urinary tract infection) N39.0 COVID-19 U07.1 Chronic kidney disease N18.9 Pancytopenia D61.818 MDS (myelodysplastic syndrome) D46.9 Migraine G43.909 Celiac disease K90.0 Prothrombin [id number] mutation D68.52 Urge and stress incontinence N39.46 COPD (chronic obstructive pulmonary disease) J44.9 Hx of Clostridium difficile infection Z86.19 Cirrhosis of liver K74.60 Coagulopathy D68.9 Acute respiratory failure with hypoxia J96.01 AURORA (acute kidney injury) N17.9 SACHA (obstructive sleep apnea) G47.33
[2021-11-30] MEDS: clonazePAM 0.5 MG TAB PO SCH (22:49)
[2021-11-30] MEDS: SERTRALINE HCL 50 MG TABLET PO SCH (22:50)
[2021-11-30] MEDS: MIRABEGRON ER 25 MG TAB PO SCH (22:50)
[2021-11-30] MEDS: QUEtiapine FUMARATE 25 MG TABLET PO SCH (22:51)
[2021-11-30] MEDS: ONDANSETRON INJ 2 MG/ML 2 ML VIAL IV PRN (23:34)
[2021-12-01] MEDS: MEROPENEM 500 MG in SYRINGE 0 ML IV SCH ×4 (04:06→22:48)
[2021-12-01 07:14] LABS: Albumin Globulin Ratio 1.2 (0.9-2); Albumin Level 2.5 gm/dl (3.4-5.0); Bilirubin,Total 0.6 mg/dl (0.2-1.0); Calcium 7.9 mg/dl (8.5-10.1); Creatinine Clr Calc Pharmacy 52.2 ml/min; Est GFR (Non-African American) 76.8 ml/min; Globulin 2.1 gm/dl (2.5-4.0); Magnesium 1.7 mg/dl (1.7-2.4); Phosphorus 2.6 mg/dl (2.5-4.9); Potassium 3.4 mmol/L (3.5-5.1); Total Protein 4.6 gm/dl (6.0-8.3)
[2021-12-01 07:46] LABS: Nucleated RBC # (auto) 0.05 K/uL (0-0); Nucleated RBC % (auto) 4.3 %; Platelet Count 7 K/uL (130-400)
[2021-12-01 07:47] LABS: Hypochromasia Present; Hypogranular Neutrophils 1+; Ovalocytes 1+; Platelet Estimate SIGNIFIC DECREASED (Normal); Schistocytes 1+; Tear Drop Cells 1+; Toxic Granulation 1+
[2021-12-01 07:50] LABS: ALC (manual) 0.58 K/uL (1.2-3.4); ANC (manual) 0.41 K/uL (1.4-6.5); Basophils # (manual) 0.02 K/uL (0-0.2); Basophils % (manual) 1.9 %; Blast # (manual) 0.02 K/uL (0-0); Blast Cells % (manual) 1.9 %; Hematocrit (blood only) 25.9 % (37-47); Hemoglobin 8.3 g/dL (12.0-16.0); Lymphocytes # (manual) 0.46 K/uL (1.2-3.4); Lymphocytes % (manual) 43.9 %; Mean Corpuscular Hemoglobin 26.6 pg (25-34); Metamyelocytes # (manual) 0.01 K/uL (0-0); Metamyelocytes % (manual) 0.9 %; Neutrophils # (manual) 0.41 K/uL (1.4-6.5); Neutrophils % (manual) 39.3 %; Promyelocytes # (manual) 0.01 K/uL (0-0); Promyelocytes % (manual) 0.9 %; RDW Coefficient of Variation 17.9 % (11.5-14.5); RDW Standard Deviation 53.9 fL (36.4-46.3); Reactive Lymphocytes # (manual) 0.12 K/uL; Reactive Lymphocytes % (manual) 11.2 %; Red Blood Count 3.12 M/uL (4.2-5.4); White Blood Count 1.05 K/uL (4.8-10.8)
[2021-12-01] MEDS ORDERED: POTASSIUM CHLORIDE CRTAB 20 MEQ TABCR PO STA (08:48)
[2021-12-01] MEDS ORDERED: SODIUM CHLORIDE 0.9% 250 ML IV PRN (08:48)
[2021-12-01] MEDS ORDERED: MAGNESIUM SULFATE / D5W 1 GM/100 ML BAG IV ONE (09:00)
[2021-12-01] MEDS: oxyCODONE HCL IR 5 MG TAB (IMMEDIATE RELEASE) PO PRN ×4 (09:04→22:47)
[2021-12-01] MEDS: PHENAZOPYRIDINE HCL 200 MG TAB PO PRN ×2 (09:04→22:50)
[2021-12-01] MEDS: METHOCARBAMOL 750 MG TABLET PO PRN (09:05)
[2021-12-01] MEDS: CETIRIZINE HCL 10 MG TABLET PO SCH (09:06)
[2021-12-01] MEDS: METOPROLOL SUCC 25MG EXT REL TAB PO SCH (09:06)
[2021-12-01] MEDS: FOLIC ACID 1 MG TAB PO SCH (09:06)
[2021-12-01] MEDS: ACYCLOVIR 400 MG TAB PO SCH ×2 (09:06→22:50)
[2021-12-01] MEDS: FERROUS SULFATE 325 MG TAB PO SCH (09:06)
[2021-12-01] MEDS: OXYBUTYNIN CHLORIDE XL 5 MG TABCR PO SCH (09:06)
[2021-12-01] MEDS: TOPIRAMATE 100 MG TAB PO SCH ×2 (09:06→22:47)
[2021-12-01] MEDS: PANTOprazole 40 MG TAB PO SCH ×2 (09:07→22:59)
[2021-12-01] MEDS: MAGNESIUM OXIDE 400 MG TAB PO SCH (09:07)
[2021-12-01] MEDS: ADVANCED PROBIOTIC 1250 MG CAPSULE PO SCH (09:07)
[2021-12-01] MEDS: GABAPENTIN 400 MG CAP PO SCH (09:07)
[2021-12-01] MEDS: FLUTICASONE/VILANTEROL 100/25MCG 14 PUFFS/INHALER INH SCH (09:08)
[2021-12-01] MEDS: ACETAMINOPHEN 500 MG TAB PO PRN (10:41)
[2021-12-01] MEDS: diphenhydrAMINE Capsule 25 MG CAP PO PRN (10:42)
[2021-12-01] MEDS: VANCOMYCIN HCL 125 MG/2.5ML SOLN PO SCH (10:43)
[2021-12-01] MEDS: RASPBERRY SYRUP 5 ML UDP PO SCH (10:43)
--- NOTE | 2021-12-01 11:30 | Hospitalist Progress Note ---
Date of Service December 01, 2021 Assessment & Plan (1) Sepsis: Plan: Aleja Duron is a 66-year-old female with a history of HCV-induced cirrhosis s/p treatment with EGD last in 10/2019 not demonstrating varices ([facility] - Dr. 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 requiring regular Procrit/Neuopgen, SACHA, urinary incontinence, COPD, prothrombin factor II mutation, celiac disease, previous CVA, recurrent cellulitis requiring chronic doxycycline, frequent UTI with previous bouts including ESBL Klebsiella and Rachelle, s/p bilateral urinary stent placements recently exchanged in 09/2021 who was recently discharged on 11/22 sepsis thought to be due to COVID-19 (consideration also given to urinary source, but UCx given negative) who presents to [facility] for evaluation of spitting up blood and ?melena, thought to be hematemesis, and epistaxis. She was found to have significant coagulopathy and thrombocytopenia on arrival. SHortly after arrival, she spiked a fever and became hypotensive, hypoxic. Sepsis- with recurrent UTI. Has a h/o fungal infections. With septic shock requiring vasopressors-now off pressors and blood pressures are improved with ureteral stents in place, last exchanged stents 09/2021 -Appreciate urology consultation-too high risk for ureteral stent exchange- recommends no acute intervention at this time given her multiple acute issues including being Covid positive-recommends continuing antibiotics, antifungals, supportive care, and surgical intervention when medically stable. Also recommends considering nephrostomy tube placement to be done under local anesthesia-discussed with patient and she does not want to try for transfer nephrostomy tubes, and furthermore I do not think anyone would perform this with her platelets as low as they are Urine culture growing ESBL Klebsiella -continue Meropenem given allergies to sulfa and fluoroquinolones -Plan to complete a 10-day course of IV meropenem given indwelling ureteral stents and septic shock-last dose will be on 12/06 -Can now discontinue caspofungin as there is still no fungal growth -follow BCxs-NGTD -Received hydrocortisone IV for pressor support-and then tapered off appreciate ICU management-has since been downgraded out of the ICU on 11/28 -Oncology recommends continuing on po diflucan for prophylaxis at discharge-will start tomorrow also plan to restart doxy and keflex for prophylaxis at az -Follow CBC, CMP, magnesium, phosphorus in the morning (2) UGIB (upper gastrointestinal bleed): Plan: Suspected UGIB - History primarily concerning for hematemesis/UGIB based on recent odynophagia, "spitting up blood" (non-projectile), nausea, decreased appetite. But could also be secondary to hemoptysis or epistaxis - Known history of HCV-induced cirrhosis. Last EGD seems to be 10/2019, per Dr. Chavez's [facility] note, which did NOT reveal any esophageal varices; did show Z-line irregularities and esophageal plaques c/w candidiasis -no need for octreotide with no h/o known varices - In setting of significant coagulopathy (INR 2.5, PTT 77.2, Plt 11) -- notably progressed since prior admission , coagulopathy now improved with FFP and Vit K - Hgb 7.9 on arrival, then 6.9,received 2 units PRBCs from [place] as she has antibodies on 11/28 -hemoglobin was up appropriately to 9.3, but now trending back downward to 8.3 - appreciate GI consult--> no urgent EGD given tenuous status and she has stopped bleeding, consider outpt EGD -Did not have a bowel movement at all for the first 3 days of admission-this makes GI bleed less likely; perhaps etiology was epistaxis and hemoptysis -Initially received PPI gtt but has now been converted to PPI po bid -Tolerating gluten free diet - If emergent utilization of blood required, may require transfer to tertiary care facility with larger blood bank given limitations here and patient's difficult situation - Consider TXA if needed -follow CBC in the morning (3) Coagulopathy: Plan: Coagulopathy / Thrombocytopenia - Admission labs concerning for INR 2.5 / PTT 77.2 / PLT 11 in setting of H&H 7.9 on arrival - notably worse from previous. ALso D-dimer 5000 - most likely etiology secondary to DIC from sepsis, in setting of MDS, liver disease with HCV history, poor nutrition (Vit K deficiency possibility) - s/p 2 units FFP and Vit K and now coags normalized -plts 6 on 11/29 and received transfusion of platelets -Platelets up to 11 on 11/30 -Platelets back down again to 7 on 12/01-give 1 pack of platelets -hold off on further platelet transfusion if platelets greater than 10 as long as no bleeding Follow CBC (4) Acute respiratory failure with hypoxia: Plan: Acute Hypoxic Respiratory Failure - Upon arrival here, patient did not have O2 requirement -- however, shortly into her course, did begin desaturating into 70-80s requiring NC/OxyMask - ABG obtained shortly after demonstrating acidemia to 7.23 without hypercapnia; +adequate oxygenation with O2 therapy -now down to room air for many days - secondary to sepsis and does have recent COVID infection, COPD, PNA, however I do not feel that this admission is related to Covid-19 at all - Patient did again test positive for COVID-19 on arrival - initially tested positive approx. 7-8 days prior - CXR demonstrating new L basilar opacities with emphysema, repeat CXR with resolution of LLL opacity-likely atelectasis rather than pneumonia (5) UTI (urinary tract infection): Plan: History of Hydronephrosis with Ureteral Stent Placement - Recent history of ureteral stents placed in 07/2021 and 09/2021 (exchanged) - Unfortunately, had associated UTIs since that time-currently with ESBL Klebsiella -consult Urology about stent exchange-as above - continue meropenem (6) AURORA (acute kidney injury): Plan: Acute Kidney Injury - Has history of CKD with creatinine baseline around 0.7 - 0.9 - On arrival, patient found to have BUN 35 / Cr 1.26 ,now normal - Suspect largely prerenal in the setting of suspected hemorrhage, as above -received volume support with transfusion and maintenance fluids - Monitor BMP, UOP -Discontinued [place] catheter on 12/01 (7) COVID-19: Plan: COVID-19 - Patient recently tested positive again for COVID-19, first time approx. ~7 days ago at the end of October - During last hospitalization, was not hypoxic and therefore was not started on dexamethasone / remdesivir -no steroids needed as her hypoxia is not from COVID - Isolation precautions for now until infection control improves removal precautions Again, I do not feel that this hospitalization with respiratory failure was related to Covid-19 at all but rather from septic shock from UTI (8) Chronic kidney disease: Plan: CKD stage II-III (9) Pancytopenia: Plan: Pancytopenia/secondary MDS - Patient with known history of severe pancytopenia secondary to MDS that arose from treatment of marginal zone lymphoma, SCLC - transfuse plts, PRBCs as needed-1 unit platelets given on 11/29 and again on 12/01 -Gave Neupogen 480 mcg SQ daily x 3 days-final dose on 11/29 -follow CBC -She is transfusion dependent -Gave Procrit 40,000 units x 1 on 11/29 -Appreciate oncology consultation-she is approaching end-of-life but wants to ma intain transfusional support and treatment of infections and bleeding. She also desires to continue to be a full code for resuscitation despite multiple conversations regarding the futility of such (10) MDS (myelodysplastic syndrome): Plan: As above I suspect her prognosis is very poor with less than 6 months of life to live Discussed hospice with both the patient and her family, but patient declines this at this time (11) Migraine: Plan: Continue Topamax, Fioricet as needed (12) Celiac disease: Plan: Needs gluten-free diet (13) Prothrombin [id number] mutation: Plan: With a history of VTE, no longer on anticoagulation given severe pancytopenia and history of bleeding (14) Urge and stress incontinence: Plan: Continue oxybutynin (15) COPD (chronic obstructive pulmonary disease): Plan: With a history of smoking and lung cancer Nebs as needed (16) Hx of Clostridium difficile infection: Plan: History of C. difficile Infection-with 2 loose stools on 11/30 and 1 on 12/01 - On chronic vancomycin suppressive therapy twice weekly -Increased vancomycin 125 Mg p.o. once daily while on antibiotics -Check C. difficile if has more than 3 loose stools in a 24-hour timeframe (17) Cirrhosis of liver: Plan: Noted with a history of hep C that has been treated (18) SACHA (obstructive sleep apnea): Plan: Obstructive Sleep Apnea - Utilizes CPAP qHS -- utilize while here Plan: Code: Full code on admission, continue for now but overall very poor prognosis as discussed with her and her son on phone, consider Hospice if continues to decline. Patient maintains she would like to remain a full code on multiple occasions Dispo: Continued stay on PCU. Appreciate PT/OT consultations, however patient desires to return home with home health upon discharge She needs 5 more days of IV antibiotics and will likely end up staying in the hospital to complete this course through 2/15 PPX: SCDs for now, stop if bruising; pharmacologic PPX contraindicated in setting of coagulopathy I discussed her care with her son on the phone on 11/28 as well as 11/30 Admission and Anticipated Discharge Date Admission Date: November 26, 2021 Subjective Patient feeling fairly well. No bleeding from anywhere. Still with some loose stool that was incontinent this morning. Telemetry with normal sinus rhythm with rates in the 70s to 80s Review of Systems Review of Systems: All systems reviewed & are unremarkable except as noted in HPI & below Physical Exam Constitutional: + ill appearing and + thin Eyes: + anicteric sclerae Neck: trachea midline, no thyromegaly Respiratory: normal respiratory effort; no cough Auscultation: + diminished lung sounds (throughout); no rhonchi and no wheezes Cardiovascular: RRR, no murmur, no edema Chest (Breasts): Chest: normal inspection of chest Gastrointestinal (Abdomen): normal bowel sounds, soft, nontender, no hepatosplenomegaly Musculoskeletal: Extremities: extremities normal to inspection; no cyanosis and no clubbing Skin: no rashes, warm and dry + ecchymosis (numerous areas of bruising and ecchymosis, petechiae on extremities) Neurologic: moves all extremities and awake; no focal motor deficits Psychiatric: A+Ox3, euthymic affect Orientation: cooperative Lymphatic: no lymphedema Results & Data Results & Data ([facility]) Vital Signs (Past 12 Hours) Vital Signs Temp Pulse Pulse Resp BP BP Pulse Ox 12/01/21 11:14 36.6 C 81 18 107/51 L 91 12/01/21 10:58 36.6 C 84 18 113/56 L 92 12/01/21 10:52 36.6 C 90 18 113/56 L 91 12/01/21 07:45 76 12/01/21 07:40 36.6 C 86 16 99/53 L 94 12/01/21 03:43 36.5 C 72 16 119/55 L 93 12/01/21 01:02 77 11/30/21 23:48 36.6 C 79 18 117/63 93 Laboratory Results 12/01/21 12/01/21 11/26/21 Range/Units 06:16 06:16 21:18 WBC 1.05 L (4.8-10.8) K/uL RBC 3.12 L (4.2-5.4) M/uL Hgb 8.3 L (12.0-16.0) g/dL Hct 25.9 L (37-47) % MCV 83.0 (80-100) fL MCH 26.6 (25-34) pg MCHC 32.0 (32-36) g/dL RDW Std Deviation 53.9 H (36.4-46.3) fL RDW Coeff of Irasema 17.9 H (11.5-14.5) % Plt Count 7 L* (130-400) K/uL Absolute Nucleated RBC 0.05 H (0-0) K/uL Nucleated RBC % (auto) 4.3 % Neutrophils % (Manual) 39.3 % Lymphocytes % (Manual) 43.9 % Reactive Lymphs % (Man) 11.2 % Basophils % (Manual) 1.9 % Metamyelocytes % (Man) 0.9 % Promyelocytes % (Man) 0.9 % Blast Cells % (Manual) 1.9 % Neutrophils # (Manual) 0.41 L (1.4-6.5) K/uL Total Absolute Neuts 0.41 L* (1.4-6.5) K/uL Lymphocytes # (Manual) 0.46 L (1.2-3.4) K/uL Reactive Lymphs # 0.12 K/uL Total Abs Lymphocytes 0.58 L (1.2-3.4) K/uL Basophils # (Manual) 0.02 (0-0.2) K/uL Metamyelocytes # (Man) 0.01 H (0-0) K/uL Promyelocytes # (Man) 0.01 H (0-0) K/uL Blast Cells # (Man) 0.02 H (0-0) K/uL Hypersegmented Neuts 1+ Hypogranular Neuts 1+ Toxic Granulation 1+ Platelet Estimate SIGNIFIC DECREASED (Normal) Hypochromasia Present Tear Drop Cells 1+ Ovalocytes 1+ Schistocytes 1+ Sodium 139 (136-145) mmol/L Potassium 3.4 L (3.5-5.1) mmol/L Chloride 109 H (98-107) mmol/L Carbon Dioxide 26 (21-32) mmol/L Anion Gap 4 (3-11) BUN 20 (6-23) mg/dl Creatinine 0.80 (0.6-1.2) mg/dl Est Cr Clr Drug Dosing 52.2 ml/min Est GFR ( Amer) 89.0 ml/min Est GFR (Non-Af Amer) 76.8 ml/min BUN/Creatinine Ratio 25.0 H (10-20) Glucose 88 (70-99(Fasting)) mg/dl Calcium 7.9 L (8.5-10.1) mg/dl Phosphorus 2.6 (2.5-4.9) mg/dl Magnesium 1.7 (1.7-2.4) mg/dl Total Bilirubin 0.6 (0.2-1.0) mg/dl AST 9 L (13-39) U/L ALT 14 (7-52) U/L Alkaline Phosphatase 54 (34-104) U/L Total Protein 4.6 L (6.0-8.3) gm/dl Albumin 2.5 L (3.4-5.0) gm/dl Globulin 2.1 L (2.5-4.0) gm/dl Albumin/Globulin Ratio 1.2 (0.9-2) Crossmatch See Detail PG Care Time/CCT Total # of Minutes Spent Total Time Spent with Patient: Total time spent is greater than 50% in coordination of care (as documented) at patient's floor/unit and/or counseling patient: Coding Level of Care Code 80911 Subseq Hosp Care Lvl 3 Diagnoses Sepsis A41.9 UGIB (upper gastrointestinal bleed) K92.2 Coagulopathy D68.9 Acute respiratory failure with hypoxia J96.01 UTI (urinary tract infection) N39.0 AURORA (acute kidney injury) N17.9 COVID-19 U07.1 Chronic kidney disease N18.9 Pancytopenia D61.818 MDS (myelodysplastic syndrome) D46.9 Migraine G43.909 Celiac disease K90.0 Prothrombin [id number] mutation D68.52 Urge and stress incontinence N39.46 COPD (chronic obstructive pulmonary disease) J44.9 Hx of Clostridium difficile infection Z86.19 Cirrhosis of liver K74.60 SACHA (obstructive sleep apnea) G47.33
[2021-12-01] MEDS: clonazePAM 0.5 MG TAB PO SCH (22:47)
[2021-12-01] MEDS: QUEtiapine FUMARATE 25 MG TABLET PO SCH (22:48)
[2021-12-01] MEDS: MIRABEGRON ER 25 MG TAB PO SCH (22:48)
[2021-12-01] MEDS: SERTRALINE HCL 50 MG TABLET PO SCH (22:50)
[2021-12-02] MEDS: MEROPENEM 500 MG in SYRINGE 0 ML IV SCH ×4 (05:20→22:24)
[2021-12-02] MEDS: oxyCODONE HCL IR 5 MG TAB (IMMEDIATE RELEASE) PO PRN ×3 (05:54→22:16)
[2021-12-02 07:06] LABS: BUN Creatinine Ratio 19.3 (10-20); Calcium 8.2 mg/dl (8.5-10.1); Creatinine Clr Calc Pharmacy 47.5 ml/min; Est GFR (African American) 79.4 ml/min; Est GFR (Non-African American) 68.5 ml/min; Magnesium 1.8 mg/dl (1.7-2.4); Phosphorus 3.1 mg/dl (2.5-4.9); Potassium 3.9 mmol/L (3.5-5.1)
[2021-12-02 07:38] LABS: Hematocrit (blood only) 27.1 % (37-47); Hemoglobin 8.5 g/dL (12.0-16.0); Mean Corpuscular Hemoglobin 26.2 pg (25-34); Mean Corpuscular Hgb Conc 31.4 g/dL (32-36); Mean Corpuscular Volume 83.6 fL (80-100); Nucleated RBC # (auto) 0.04 K/uL (0-0); Nucleated RBC % (auto) 4.3 %; Platelet Count 9 K/uL (130-400); RDW Standard Deviation 54.8 fL (36.4-46.3); Red Blood Count 3.24 M/uL (4.2-5.4); White Blood Count 1.04 K/uL (4.8-10.8)
[2021-12-02 07:39] LABS: Giant Platelets 2+; Hypogranular Neutrophils 1+; Platelet Estimate SIGNIFIC DECREASED (Normal); Schistocytes 1+
[2021-12-02 07:40] LABS: ALC (manual) 0.68 K/uL (1.2-3.4); ANC (manual) 0.14 K/uL (1.4-6.5); Basophils # (manual) 0.01 K/uL (0-0.2); Basophils % (manual) 1.2 %; Blast # (manual) 0.03 K/uL (0-0); Blast Cells % (manual) 2.5 %; Lymphocytes # (manual) 0.68 K/uL (1.2-3.4); Lymphocytes % (manual) 65.5 %; Metamyelocytes # (manual) 0.01 K/uL (0-0); Metamyelocytes % (manual) 1.2 %; Monocytes # (manual) 0.09 K/uL (0.11-0.59); Monocytes % (manual) 8.6 %; Myelocytes # (manual) 0.08 K/uL (0-0); Myelocytes % (manual) 7.4 %; Neutrophils # (manual) 0.14 K/uL (1.4-6.5); Neutrophils % (manual) 13.6 %
[2021-12-02] MEDS: FLUCONAZOLE 100 MG TAB PO SCH (08:09)
[2021-12-02] MEDS: VANCOMYCIN HCL 125 MG/2.5ML SOLN PO SCH (08:10)
[2021-12-02] MEDS: PANTOprazole 40 MG TAB PO SCH ×2 (08:10→22:14)
[2021-12-02] MEDS: TOPIRAMATE 100 MG TAB PO SCH ×2 (08:11→22:16)
[2021-12-02] MEDS: METHOCARBAMOL 750 MG TABLET PO PRN ×2 (08:11→23:44)
[2021-12-02] MEDS: GABAPENTIN 400 MG CAP PO SCH (08:11)
[2021-12-02] MEDS: FERROUS SULFATE 325 MG TAB PO SCH (08:11)
[2021-12-02] MEDS: ADVANCED PROBIOTIC 1250 MG CAPSULE PO SCH (08:11)
[2021-12-02] MEDS: BUTALBITAL/ACETAMIN/CAFFEINE TAB PO PRN (08:12)
[2021-12-02] MEDS: OXYBUTYNIN CHLORIDE XL 5 MG TABCR PO SCH (08:12)
[2021-12-02] MEDS: CETIRIZINE HCL 10 MG TABLET PO SCH (08:12)
[2021-12-02] MEDS: PHENAZOPYRIDINE HCL 200 MG TAB PO PRN ×2 (08:13→23:44)
[2021-12-02] MEDS: ACYCLOVIR 400 MG TAB PO SCH ×2 (08:13→22:12)
[2021-12-02] MEDS: METOPROLOL SUCC 25MG EXT REL TAB PO SCH (08:13)
[2021-12-02] MEDS: MAGNESIUM OXIDE 400 MG TAB PO SCH (08:13)
[2021-12-02] MEDS: FOLIC ACID 1 MG TAB PO SCH (08:13)
[2021-12-02] MEDS: RASPBERRY SYRUP 5 ML UDP PO SCH (08:14)
[2021-12-02] MEDS: FLUTICASONE/VILANTEROL 100/25MCG 14 PUFFS/INHALER INH SCH (08:14)
[2021-12-02] MEDS ORDERED: SODIUM CHLORIDE 0.9% 250 ML IV PRN (08:45)
[2021-12-02] MEDS: diphenhydrAMINE Capsule 25 MG CAP PO PRN (09:22)
[2021-12-02] MEDS: ACETAMINOPHEN 500 MG TAB PO PRN (09:22)
[2021-12-02] MEDS: ONDANSETRON INJ 2 MG/ML 2 ML VIAL IV PRN (11:33)
--- NOTE | 2021-12-02 19:18 | Hospitalist Progress Note ---
Date of Service December 02, 2021 Assessment & Plan (1) Sepsis: Plan: Aleja Duron is a 66-year-old female with a history of HCV-induced cirrhosis s/p treatment with EGD last in 10/2019 not demonstrating varices ([facility] - Dr. 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 requiring regular Procrit/Neuopgen, SACHA, urinary incontinence, COPD, prothrombin factor II mutation, celiac disease, previous CVA, recurrent cellulitis requiring chronic doxycycline, frequent UTI with previous bouts including ESBL Klebsiella and Rachelle, s/p bilateral urinary stent placements recently exchanged in 09/2021 who was recently discharged on 11/22 sepsis thought to be due to COVID-19 (consideration also given to urinary source, but UCx given negative) who presents to [facility] for evaluation of spitting up blood and ?melena, thought to be hematemesis, and epistaxis. She was found to have significant coagulopathy and thrombocytopenia on arrival. SHortly after arrival, she spiked a fever and became hypotensive, hypoxic. Sepsis- with recurrent UTI. Has a h/o fungal infections. With septic shock requiring vasopressors-now off pressors and blood pressures are improved with ureteral stents in place, last exchanged stents 09/2021 -Appreciate urology consultation-too high risk for ureteral stent exchange- recommends no acute intervention at this time given her multiple acute issues including being Covid positive-recommends continuing antibiotics, antifungals, supportive care, and surgical intervention when medically stable. Also recommends considering nephrostomy tube placement to be done under local anesthesia-discussed with patient and she does not want to try for transfer nephrostomy tubes, and furthermore I do not think anyone would perform this with her platelets as low as they are Urine culture growing ESBL Klebsiella -continue Meropenem given allergies to sulfa and fluoroquinolones -Plan to complete a 10-day course of IV meropenem given indwelling ureteral stents and septic shock-last dose will be on 12/06 -have since discontinued caspofungin as there was no fungal growth -follow BCxs-NGTD -Received hydrocortisone IV for pressor support-and then tapered off appreciate ICU management-has since been downgraded out of the ICU on 11/28 -Oncology recommends continuing on po diflucan for prophylaxis at discharge- started diflucan 200mg po daily also plan to restart doxy and keflex for prophylaxis at [place] -Follow CBC, CMP, magnesium, phosphorus in the morning (2) UGIB (upper gastrointestinal bleed): Plan: Suspected UGIB - History primarily concerning for hematemesis/UGIB based on recent odynophagia, "spitting up blood" (non-projectile), nausea, decreased appetite. But could also be secondary to hemoptysis or epistaxis - Known history of HCV-induced cirrhosis. Last EGD seems to be 10/2019, per Dr. Chavez's [facility] note, which did NOT reveal any esophageal varices; did show Z-line irregularities and esophageal plaques c/w candidiasis -no need for octreotide with no h/o known varices - In setting of significant coagulopathy (INR 2.5, PTT 77.2, Plt 11) -- notably progressed since prior admission , coagulopathy now improved with FFP and Vit K - Hgb 7.9 on arrival, then 6.9,received 2 units PRBCs on 11/28 -hemoglobin was up appropriately to 9.3, but now trending back downward to 8.5 - appreciate GI consult--> no urgent EGD given tenuous status and she has stopped bleeding, consider outpt EGD -Did not have a bowel movement at all for the first 3 days of admission-this makes GI bleed less likely; perhaps etiology was epistaxis and hemoptysis -Initially received PPI gtt but has now been converted to PPI po bid -Tolerating gluten free diet - If emergent utilization of blood required, may require transfer to tertiary care facility with larger blood bank given limitations with her antibodies in blood - Consider TXA if needed -follow CBC in the morning (3) Coagulopathy: Plan: Coagulopathy / Thrombocytopenia - Admission labs concerning for INR 2.5 / PTT 77.2 / PLT 11 in setting of H&H 7.9 on arrival - notably worse from previous. ALso D-dimer 5000 - most likely etiology secondary to DIC from sepsis, in setting of MDS, liver disease with HCV history, poor nutrition (Vit K deficiency possibility) - s/p 2 units FFP and Vit K and now coags normalized -plts 6 on 11/29 and received transfusion of platelets -Platelets up to 11 on 11/30 -Platelets back down again to 7 on 12/01-give 1 pack of platelets -gave more plts on 12/02 - platelet transfusion for plts<10 unless has bleeding Follow CBC (4) Acute respiratory failure with hypoxia: Plan: Acute Hypoxic Respiratory Failure - Upon arrival here, patient did not have O2 requirement -- however, shortly into her course, did begin desaturating into 70-80s requiring NC/OxyMask - ABG obtained shortly after demonstrating acidemia to 7.23 without hypercapnia; +adequate oxygenation with O2 therapy -now down to room air for many days - secondary to sepsis and does have recent COVID infection, COPD, PNA, however I do not feel that this admission is related to Covid-19 at all - Patient did again test positive for COVID-19 on arrival - initially tested positive approx. 7-8 days prior - CXR demonstrating new L basilar opacities with emphysema, repeat CXR with resolution of LLL opacity-likely atelectasis rather than pneumonia (5) UTI (urinary tract infection): Plan: History of Hydronephrosis with Ureteral Stent Placement - Recent history of ureteral stents placed in 07/2021 and 09/2021 (exchanged) - Unfortunately, had associated UTIs since that time-currently with ESBL Klebsiella -consult Urology about stent exchange-as above - continue meropenem (6) AURORA (acute kidney injury): Plan: Acute Kidney Injury - Has history of CKD with creatinine baseline around 0.7 - 0.9 - On arrival, patient found to have BUN 35 / Cr 1.26 ,now normal - Suspect largely prerenal in the setting of suspected hemorrhage, as above -received volume support with transfusion and maintenance fluids - Monitor BMP, UOP -Discontinued [place] catheter on 12/01 (7) COVID-19: Plan: COVID-19 - Patient recently tested positive again for COVID-19, first time approx. ~7 days ago at the end of October - During last hospitalization, was not hypoxic and therefore was not started on dexamethasone / remdesivir -no steroids needed as her hypoxia is not from COVID - Isolation precautions for now until infection control improves removal precautions Again, I do not feel that this hospitalization with respiratory failure was related to Covid-19 at all but rather from septic shock from UTI As per infection control on 12/02, she can come off isolation precautions (8) Chronic kidney disease: Plan: CKD stage II-III (9) Pancytopenia: Plan: Pancytopenia/secondary MDS - Patient with known history of severe pancytopenia secondary to MDS that arose from treatment of marginal zone lymphoma, SCLC - transfuse plts, PRBCs as needed-1 unit platelets given on 11/29 and again on 12/01 -Gave Neupogen 480 mcg SQ daily x 3 days-final dose on 11/29 -follow CBC -She is transfusion dependent -Gave Procrit 40,000 units x 1 on 11/29 -Appreciate oncology consultation-she is approaching end-of-life but wants to maintain transfusional support and treatment of infections and bleeding. She also desires to continue to be a full code for resuscitation despite multiple conversations regarding the futility of such (10) MDS (myelodysplastic syndrome): Plan: As above I suspect her prognosis is very poor with less than 6 months of life to live Discussed hospice with both the patient and her family, but patient declines this at this time (11) Migraine: Plan: Continue Topamax, Fioricet as needed (12) Celiac disease: Plan: Needs gluten-free diet (13) Prothrombin [id number] mutation: Plan: With a history of VTE, no longer on anticoagulation given severe pancytopenia and history of bleeding (14) Urge and stress incontinence: Plan: Continue oxybutynin (15) COPD (chronic obstructive pulmonary disease): Plan: With a history of smoking and lung cancer Nebs as needed (16) Hx of Clostridium difficile infection: Plan: History of C. difficile Infection-with 2 loose stools on 11/30 and 1 on 12/01 - On chronic vancomycin suppressive therapy twice weekly -Increased vancomycin 125 Mg p.o. once daily while on antibiotics -Check C. difficile if has more than 3 loose stools in a 24-hour timeframe (17) Cirrhosis of liver: Plan: Noted with a history of hep C that has been treated (18) SACHA (obstructive sleep apnea): Plan: Obstructive Sleep Apnea - Utilizes CPAP qHS -- utilize while here Plan: Code: Full code on admission, continue for now but overall very poor prognosis as discussed with her and her son on phone, consider Hospice if continues to decline. Patient maintains she would like to remain a full code on multiple occasions Dispo: Downgrade to med/surg. Appreciate PT/OT consultations, however patient desires to return home with home health upon discharge She needs 4 more days of IV antibiotics and will likely end up staying in the hospital to complete this course through 12/06 PPX: SCDs only due to bleeding and thrombocytopenia I discussed her care with her son on the phone on 11/28 as well as 11/30 Admission and Anticipated Discharge Date Admission Date: November 26, 2021 Subjective Pt has some loose stools still today. No other complaints. Tele with NSR, normal rate Review of Systems Review of Systems: All systems reviewed & are unremarkable except as noted in HPI & below Physical Exam Constitutional: WD/WN, vitals as above + ill appearing and + thin Eyes: + anicteric sclerae Neck: trachea midline, no thyromegaly Respiratory: normal respiratory effort; no cough Auscultation: + diminished lung sounds (throughout); no rhonchi and no wheezes Cardiovascular: RRR, no murmur, no edema Chest (Breasts): Chest: normal inspection of chest Gastrointestinal (Abdomen): normal bowel sounds, soft, nontender, no hepatosplenomegaly Musculoskeletal: Extremities: extremities normal to inspection; no cyanosis and no clubbing Skin: no rashes, warm and dry + ecchymosis (numerous areas of bruising and ecchymosis, petechiae on extremities) Neurologic: moves all extremities and awake; no focal motor deficits Psychiatric: A+Ox3, euthymic affect Orientation: cooperative Lymphatic: no lymphedema Results & Data Results & Data ([facility]) Vital Signs (Past 12 Hours) Vital Signs Temp Pulse Pulse Pulse Resp BP BP 12/02/21 19:15 36.9 C 82 18 99/56 L 12/02/21 16:45 36.5 C 87 15 115/52 L 12/02/21 15:43 73 12/02/21 12:00 36.6 C 76 76 15 107/45 L 12/02/21 11:51 36.6 C 76 14 107/45 L 12/02/21 11:21 36.6 C 81 14 107/45 L 12/02/21 10:21 36.6 C 81 14 100/50 L 12/02/21 09:51 36.6 C 84 16 112/48 L 12/02/21 09:36 36.7 C 83 14 111/48 L 12/02/21 09:32 36.7 C 86 16 108/55 L 12/02/21 09:18 36.5 C 84 16 111/47 L 12/02/21 07:34 36.7 C 88 16 104/51 L Pulse Ox 12/02/21 19:15 91 12/02/21 16:45 89 L 12/02/21 15:43 12/02/21 12:00 94 12/02/21 11:51 94 12/02/21 11:21 12/02/21 10:21 92 12/02/21 09:51 93 12/02/21 09:36 92 12/02/21 09:32 93 12/02/21 09:18 94 12/02/21 07:34 89 L Laboratory Results 12/02/21 12/02/21 Range/Units 05:39 05:39 WBC 1.04 L (4.8-10.8) K/uL RBC 3.24 L (4.2-5.4) M/uL Hgb 8.5 L (12.0-16.0) g/dL Hct 27.1 L (37-47) % MCV 83.6 (80-100) fL MCH 26.2 (25-34) pg MCHC 31.4 L (32-36) g/dL RDW Std Deviation 54.8 H (36.4-46.3) fL RDW Coeff of Irasema 18.0 H (11.5-14.5) % Plt Count 9 L* (130-400) K/uL Absolute Nucleated RBC 0.04 H (0-0) K/uL Nucleated RBC % (auto) 4.3 % Neutrophils % (Manual) 13.6 % Lymphocytes % (Manual) 65.5 % Monocytes % (Manual) 8.6 % Basophils % (Manual) 1.2 % Metamyelocytes % (Man) 1.2 % Myelocytes % (Man) 7.4 % Blast Cells % (Manual) 2.5 % Neutrophils # (Manual) 0.14 L (1.4-6.5) K/uL Total Absolute Neuts 0.14 L* (1.4-6.5) K/uL Lymphocytes # (Manual) 0.68 L (1.2-3.4) K/uL Total Abs Lymphocytes 0.68 L (1.2-3.4) K/uL Monocytes # (Manual) 0.09 L (0.11-0.59) K/uL Basophils # (Manual) 0.01 (0-0.2) K/uL Metamyelocytes # (Man) 0.01 H (0-0) K/uL Myelocytes # (Manual) 0.08 H (0-0) K/uL Blast Cells # (Man) 0.03 H (0-0) K/uL Hyposegmented Neuts 1+ Hypogranular Neuts 1+ Platelet Estimate SIGNIFIC DECREASED (Normal) Giant Platelets 2+ Schistocytes 1+ Sodium 138 (136-145) mmol/L Potassium 3.9 (3.5-5.1) mmol/L Chloride 106 (98-107) mmol/L Carbon Dioxide 27 (21-32) mmol/L Anion Gap 5 (3-11) BUN 17 (6-23) mg/dl Creatinine 0.88 (0.6-1.2) mg/dl Est Cr Clr Drug Dosing 47.5 ml/min Est GFR ( Amer) 79.4 ml/min Est GFR (Non-Af Amer) 68.5 ml/min BUN/Creatinine Ratio 19.3 (10-20) Glucose 88 (70-99(Fasting)) mg/dl Calcium 8.2 L (8.5-10.1) mg/dl Phosphorus 3.1 (2.5-4.9) mg/dl Magnesium 1.8 (1.7-2.4) mg/dl PG Care Time/CCT Total # of Minutes Spent Total Time Spent with Patient: Total time spent is greater than 50% in coordination of care (as documented) at patient's floor/unit and/or counseling patient: Coding Level of Care Code 90556 Subseq Hosp Care Lvl 2 Diagnoses Sepsis A41.9 UGIB (upper gastrointestinal bleed) K92.2 Coagulopathy D68.9 Acute respiratory failure with hypoxia J96.01 UTI (urinary tract infection) N39.0 AURORA (acute kidney injury) N17.9 COVID-19 U07.1 Chronic kidney disease N18.9 Pancytopenia D61.818 MDS (myelodysplastic syndrome) D46.9 Migraine G43.909 Celiac disease K90.0 Prothrombin [id number] mutation D68.52 Urge and stress incontinence N39.46 COPD (chronic obstructive pulmonary disease) J44.9 Hx of Clostridium difficile infection Z86.19 Cirrhosis of liver K74.60 SACHA (obstructive sleep apnea) G47.33
[2021-12-02] MEDS: clonazePAM 0.5 MG TAB PO SCH (22:12)
[2021-12-02] MEDS: MIRABEGRON ER 25 MG TAB PO SCH (22:13)
[2021-12-02] MEDS: QUEtiapine FUMARATE 25 MG TABLET PO SCH (22:14)
[2021-12-02] MEDS: SERTRALINE HCL 50 MG TABLET PO SCH (22:15)
[2021-12-03] MEDS: MEROPENEM 500 MG in SYRINGE 0 ML IV SCH ×4 (05:58→22:28)
[2021-12-03 07:23] LABS: BUN Creatinine Ratio 17.5 (10-20); Creatinine Clr Calc Pharmacy 52.2 ml/min; Est GFR (Non-African American) 76.8 ml/min; Potassium 3.7 mmol/L (3.5-5.1)
[2021-12-03 07:29] LABS: Mean Corpuscular Hgb Conc 32.1 g/dL (32-36); Nucleated RBC # (auto) 0.07 K/uL (0-0); Nucleated RBC % (auto) 7.9 %; Platelet Count 10 K/uL (130-400)
[2021-12-03 07:30] LABS: ALC (manual) 0.58 K/uL (1.2-3.4); ANC (manual) 0.12 K/uL (1.4-6.5); Blast # (manual) 0.03 K/uL (0-0); Blast Cells % (manual) 4.1 %; Eosinophils # (manual) 0.01 K/uL (0-0.5); Giant Platelets 1+; Hematocrit (blood only) 23.4 % (37-47); Hemoglobin 7.5 g/dL (12.0-16.0); Lymphocytes # (manual) 0.58 K/uL (1.2-3.4); Lymphocytes % (manual) 68.3 %; Mean Corpuscular Hemoglobin 26.3 pg (25-34); Mean Corpuscular Volume 82.1 fL (80-100); Monocytes # (manual) 0.07 K/uL (0.11-0.59); Monocytes % (manual) 8.2 %; Myelocytes # (manual) 0.03 K/uL (0-0); Myelocytes % (manual) 4.1 %; Neutrophils # (manual) 0.12 K/uL (1.4-6.5); Neutrophils % (manual) 14.3 %; Platelet Estimate SIGNIFIC DECREASED (Normal); RDW Coefficient of Variation 17.8 % (11.5-14.5); RDW Standard Deviation 52.7 fL (36.4-46.3); Red Blood Count 2.85 M/uL (4.2-5.4); Schistocytes 1+; Tear Drop Cells 1+; White Blood Count 0.85 K/uL (4.8-10.8)
[2021-12-03] MEDS: TOPIRAMATE 100 MG TAB PO SCH ×2 (09:36→22:27)
[2021-12-03] MEDS: FLUTICASONE/VILANTEROL 100/25MCG 14 PUFFS/INHALER INH SCH (09:36)
[2021-12-03] MEDS: GABAPENTIN 400 MG CAP PO SCH (09:37)
[2021-12-03] MEDS: MAGNESIUM OXIDE 400 MG TAB PO SCH (09:37)
[2021-12-03] MEDS: OXYBUTYNIN CHLORIDE XL 5 MG TABCR PO SCH (09:38)
[2021-12-03] MEDS: ADVANCED PROBIOTIC 1250 MG CAPSULE PO SCH (09:38)
[2021-12-03] MEDS: METOPROLOL SUCC 25MG EXT REL TAB PO SCH (09:38)
[2021-12-03] MEDS: FOLIC ACID 1 MG TAB PO SCH (09:39)
[2021-12-03] MEDS: FERROUS SULFATE 325 MG TAB PO SCH (09:39)
[2021-12-03] MEDS: ACYCLOVIR 400 MG TAB PO SCH ×2 (09:40→22:26)
[2021-12-03] MEDS: FLUCONAZOLE 100 MG TAB PO SCH (09:40)
[2021-12-03] MEDS: CETIRIZINE HCL 10 MG TABLET PO SCH (09:40)
[2021-12-03] MEDS: PANTOprazole 40 MG TAB PO SCH ×2 (09:40→22:26)
[2021-12-03] MEDS: RASPBERRY SYRUP 5 ML UDP PO SCH (09:41)
[2021-12-03] MEDS: oxyCODONE HCL IR 5 MG TAB (IMMEDIATE RELEASE) PO PRN ×3 (10:14→22:35)
[2021-12-03] MEDS: VANCOMYCIN HCL 125 MG/2.5ML SOLN PO SCH (10:51)
--- NOTE | 2021-12-03 18:17 | Hospitalist Progress Note ---
Date of Service December 03, 2021 Assessment & Plan (1) UTI (urinary tract infection): Plan: History of Hydronephrosis with Ureteral Stent Placement. - Recent history of ureteral stents placed in 07/2021 and 09/2021 (exchanged) - Unfortunately, had associated UTIs since that time-currently with ESBL Klebsiella - Consulted urology about stent exchange - Will reach out on Sunday, 12/05 as the last note indicates no intervention while acutely ill. Overall, improving though low platelets will remain an impediment to any procedure. - Continue meropenem until 12/06. => Plan to start Keflex/doxy for urine ppx at discharge. 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 - Gave Neupogen 480 mcg SQ daily x 3 days-final dose on 11/29 - Gave Procrit 40,000 units x 1 on 11/29 - Received platelets on 11/27, 12/01, 12/02 (3) Sepsis: Plan: Sepsis- with recurrent UTI. (4) UGIB (upper gastrointestinal bleed): Plan: Suspected UGIB - History primarily concerning for hematemesis/UGIB based on recent odynophagia, "spitting up blood" (non-projectile), nausea, decreased appetite. But could also be secondary to hemoptysis or epistaxis - Known history of HCV-induced cirrhosis. Last EGD seems to be 10/2019, per Dr. Chavez's [facility] note, which did NOT reveal any esophageal varices; did show Z-line irregularities and esophageal plaques c/w candidiasis - No need for octreotide with no h/o known varices - In setting of significant coagulopathy (INR 2.5, PTT 77.2, Plt 11) -- notably progressed since prior admission , coagulopathy now improved with FFP and Vit K. - Hgb 7.9 on arrival, then 6.9,received 2 units PRBCs on 11/28 -hemoglobin was up appropriately to 9.3, but now trending back downward to 7.5. - Appreciate GI consult--> no urgent EGD given tenuous status and she has stopped bleeding, consider outpt EGD -Initially received PPI gtt but has now been converted to PPI po bid - Tolerating gluten free diet - If emergent utilization of blood required, may require transfer to tertiary care facility with larger blood bank given limitations with her antibodies in blood. - Consider TXA if needed - Follow CBC in the morning -> Lower today. (5) Coagulopathy: Plan: Coagulopathy / Thrombocytopenia - Admission labs concerning for INR 2.5 / PTT 77.2 / PLT 11 in setting of H&H 7.9 on arrival - notably worse from previous. ALso D-dimer 5000 - most likely etiology secondary to DIC from sepsis, in setting of MDS, liver disease with HCV history, poor nutrition (Vit K deficiency possibility) - s/p 2 units FFP and Vit K and now coags normalized - Received platelets on 11/27, 12/01, 12/02 (6) Acute respiratory failure with hypoxia: Plan: Acute Hypoxic Respiratory Failure. Upon arrival here, patient did not have O2 re quirement -- however, shortly into her course, did begin desaturating into 70- 80s requiring NC/OxyMask. - Secondary to sepsis and does have recent COVID infection, COPD, PNA, however I do not feel that this admission is related to Covid-19 at all. (7) AURORA (acute kidney injury): Plan: Acute Kidney Injury - Has history of CKD with creatinine baseline around 0.7 - 0.9. Cr up to 1.26. - With fluids and blood products, returned to baseline. (8) COVID-19: Plan: COVID-19 - Patient recently tested positive again for COVID-19, first time approx. ~7 days ago at the end of October. - During last hospitalization, was not hypoxic and therefore was not started on dexamethasone / remdesivir. - No steroids needed as her hypoxia is not from COVID. 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 Discussed hospice with both the patient and her family, but patient declines this at this time. (11) Migraine: Plan: No pain reported today. - Continue Topamax, Fioricet as needed (12) Celiac disease: Plan: Needs gluten-free diet (13) Prothrombin [id number] mutation: Plan: With a history of VTE, no longer on anticoagulation given severe pancytopenia and history of bleeding. (14) Urge and stress incontinence: Plan: - Continue oxybutynin (15) COPD (chronic obstructive pulmonary disease): Plan: With a history of smoking and lung cancer. - Nebs as needed (16) Hx of Clostridium difficile infection: Plan: History of C. difficile Infection-with 4 loose stools on 12/03. - On chronic vancomycin suppressive therapy twice weekly - Increased vancomycin 125 Mg p.o. once daily while on antibiotics (17) Cirrhosis of liver: Plan: - Noted with a history of hep C that has been treated (18) SACHA (obstructive sleep apnea): Plan: Obstructive Sleep Apnea - Utilizes CPAP qHS -- utilize while here Admission and Anticipated Discharge Date Admission Date: November 26, 2021 Subjective Doing well today. Feels better than last week. More strength. Having 4-5 softer stools per day presently. Reports no fevers/chills, chest pain, shortness of breath, abdominal pain, nausea, or vomiting. Physical Exam Constitutional: WD/WN, vitals as above Eyes: EOM intact bilaterally; no conjunctival abnormality ENMT: external ear and nose normal, oropharynx normal Neck: trachea midline, no thyromegaly normal visual inspection Respiratory: normal respiratory effort, lungs clear to auscultation no respiratory distress Cardiovascular: RRR, no murmur, no edema Gastrointestinal (Abdomen): Inspection/Auscultation: abdomen normal to inspection; abdomen not distended Musculoskeletal: no cyanosis or clubbing, extremities motor strength 5/5 Skin: no rashes, warm and dry Neurologic: moves all extremities and awake Psychiatric: Orientation: alert, oriented to person and cooperative Results & Data Results & Data ([facility]) Vital Signs (Past 12 Hours) Vital Signs Temp Pulse Resp BP Pulse Ox 12/03/21 16:30 82 94/55 L 12/03/21 15:44 36.7 C 84 18 79/50 L 93 12/03/21 07:47 36.3 C L 74 18 96/57 L 91 PG Care Time/CCT Total # of Minutes Spent Total Time Spent with Patient: Total time spent is greater than 50% in coordination of care (as documented) at patient's floor/unit and/or counseling patient: Coding Level of Care Code 86265 Subseq Hosp Care Lvl 3 Diagnoses Sepsis A41.9 UGIB (upper gastrointestinal bleed) K92.2 Coagulopathy D68.9 Acute respiratory failure with hypoxia J96.01 UTI (urinary tract infection) N39.0 AURORA (acute kidney injury) N17.9 COVID-19 U07.1 Chronic kidney disease N18.9 Pancytopenia D61.818 MDS (myelodysplastic syndrome) D46.9 Migraine G43.909 Celiac disease K90.0 Prothrombin [id number] mutation D68.52 Urge and stress incontinence N39.46 COPD (chronic obstructive pulmonary disease) J44.9 Hx of Clostridium difficile infection Z86.19 Cirrhosis of liver K74.60 SACHA (obstructive sleep apnea) G47.33
[2021-12-03] MEDS: QUEtiapine FUMARATE 25 MG TABLET PO SCH (22:26)
[2021-12-03] MEDS: clonazePAM 0.5 MG TAB PO SCH (22:27)
[2021-12-03] MEDS: MIRABEGRON ER 25 MG TAB PO SCH (22:27)
[2021-12-03] MEDS: METHOCARBAMOL 750 MG TABLET PO PRN (22:32)
[2021-12-03] MEDS: SERTRALINE HCL 50 MG TABLET PO SCH (22:32)
[2021-12-03] MEDS: PHENAZOPYRIDINE HCL 200 MG TAB PO PRN (22:33)
[2021-12-04] MEDS: MEROPENEM 500 MG in SYRINGE 0 ML IV SCH ×4 (05:45→23:04)
[2021-12-04] MEDS: oxyCODONE HCL IR 5 MG TAB (IMMEDIATE RELEASE) PO PRN ×3 (06:10→20:13)
[2021-12-04 06:40] LABS: INR 1.1 (0.9-1.1); Partial Thromboplastin Ratio 1.6; Partial Thromboplastin Time 41.2 Seconds (21.0-31.0); Prothrombin Time 11.3 Seconds (9.0-12.0)
[2021-12-04 06:55] LABS: Albumin Globulin Ratio 1.2 (0.9-2); Albumin Level 2.7 gm/dl (3.4-5.0); BUN Creatinine Ratio 16.7 (10-20); Bilirubin,Total 0.6 mg/dl (0.2-1.0); Calcium 8.1 mg/dl (8.5-10.1); Creatinine Clr Calc Pharmacy 49.7 ml/min; Est GFR (African American) 83.9 ml/min; Est GFR (Non-African American) 72.4 ml/min; Globulin 2.2 gm/dl (2.5-4.0); Magnesium 1.8 mg/dl (1.7-2.4); Phosphorus 3.4 mg/dl (2.5-4.9); Potassium 3.7 mmol/L (3.5-5.1); Total Protein 4.9 gm/dl (6.0-8.3)
[2021-12-04 06:56] LABS: Hematocrit (blood only) 22.8 % (37-47); Hemoglobin 7.3 g/dL (12.0-16.0); Mean Corpuscular Hemoglobin 26.7 pg (25-34); Mean Corpuscular Volume 83.5 fL (80-100); Nucleated RBC # (auto) 0.08 K/uL (0-0); Platelet Count 9 K/uL (130-400); RDW Coefficient of Variation 17.9 % (11.5-14.5); RDW Standard Deviation 54.4 fL (36.4-46.3); Red Blood Count 2.73 M/uL (4.2-5.4); White Blood Count 0.71 K/uL (4.8-10.8)
[2021-12-04 06:58] LABS: Basophils # (auto) 0.02 K/uL (0-0.2); Basophils % (auto) 2.8 %; Giant Platelets 1+; Immature Granulocytes # (auto) 0.01 K/uL (0.00-0.02); Immature Granulocytes % (auto) 1.4 %; Lymphocytes # (auto) 0.41 K/uL (1.2-3.4); Lymphocytes % (auto) 57.7 %; Monocytes % (auto) 14.1 %; Neutrophils # (auto) 0.17 K/uL (1.4-6.5); Platelet Estimate SIGNIFIC DECREASED (Normal); Poikilocytosis Present; Schistocytes Occasional; Toxic Granulation 1+
[2021-12-04] MEDS: VANCOMYCIN HCL 125 MG/2.5ML SOLN PO SCH (09:00)
[2021-12-04] MEDS: PANTOprazole 40 MG TAB PO SCH ×2 (09:01→22:59)
[2021-12-04] MEDS: METHOCARBAMOL 750 MG TABLET PO PRN ×2 (09:01→23:01)
[2021-12-04] MEDS: PHENAZOPYRIDINE HCL 200 MG TAB PO PRN ×2 (09:01→22:59)
[2021-12-04] MEDS: FLUTICASONE/VILANTEROL 100/25MCG 14 PUFFS/INHALER INH SCH (09:02)
[2021-12-04] MEDS: METOPROLOL SUCC 25MG EXT REL TAB PO SCH (09:02)
[2021-12-04] MEDS: RASPBERRY SYRUP 5 ML UDP PO SCH (09:44)
[2021-12-04] MEDS: FOLIC ACID 1 MG TAB PO SCH (09:46)
[2021-12-04] MEDS: FLUCONAZOLE 100 MG TAB PO SCH (09:46)
[2021-12-04] MEDS: ACYCLOVIR 400 MG TAB PO SCH ×2 (09:47→22:59)
[2021-12-04] MEDS: GABAPENTIN 400 MG CAP PO SCH (09:47)
[2021-12-04] MEDS: CETIRIZINE HCL 10 MG TABLET PO SCH (09:47)
[2021-12-04] MEDS: OXYBUTYNIN CHLORIDE XL 5 MG TABCR PO SCH (09:47)
[2021-12-04] MEDS: MAGNESIUM OXIDE 400 MG TAB PO SCH (09:48)
[2021-12-04] MEDS: FERROUS SULFATE 325 MG TAB PO SCH (09:48)
[2021-12-04] MEDS: TOPIRAMATE 100 MG TAB PO SCH ×2 (09:48→22:57)
[2021-12-04] MEDS: ADVANCED PROBIOTIC 1250 MG CAPSULE PO SCH (09:48)
[2021-12-04] MEDS: diphenhydrAMINE Capsule 25 MG CAP PO PRN (11:08)
[2021-12-04] MEDS: ACETAMINOPHEN 500 MG TAB PO PRN (11:08)
--- NOTE | 2021-12-04 17:04 | Hospitalist Progress Note ---
Date of Service December 04, 2021 Assessment & Plan (1) UTI (urinary tract infection): Plan: History of Hydronephrosis with Ureteral Stent Placement. - Recent history of ureteral stents placed in 07/2021 and 09/2021 (exchanged) - Unfortunately, had associated UTIs since that time-currently with ESBL Klebsiella - Consulted urology about stent exchange - Will reach out on Sunday, 12/05 as the last note indicates no intervention while acutely ill. Overall, improving though low platelets will remain an impediment to any procedure. - Continue meropenem until 12/06. => Plan to start Keflex/doxy for urine ppx at discharge. 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 - Gave Neupogen 480 mcg SQ daily x 3 days-final dose on 11/29 - Gave Procrit 40,000 units x 1 on 11/29 - Received platelets on 11/27, 12/01, 12/02, 12/04 (3) Sepsis: Plan: Sepsis- with recurrent UTI. (4) UGIB (upper gastrointestinal bleed): Plan: Suspected UGIB - History primarily concerning for hematemesis/UGIB based on recent odynophagia, "spitting up blood" (non-projectile), nausea, decreased appetite. But could also be secondary to hemoptysis or epistaxis - Known history of HCV-induced cirrhosis. Last EGD seems to be 10/2019, per Dr. Chavez's [facility] note, which did NOT reveal any esophageal varices; did show Z-line irregularities and esophageal plaques c/w candidiasis - No need for octreotide with no h/o known varices - In setting of significant coagulopathy (INR 2.5, PTT 77.2, Plt 11) -- notably progressed since prior admission , coagulopathy now improved with FFP and Vit K. - Hgb 7.9 on arrival, then 6.9,received 2 units PRBCs on 11/28 -hemoglobin was up appropriately to 9.3. - Appreciate GI consult--> no urgent EGD given tenuous status and she has stopped bleeding, consider outpt EGD -Initially received PPI gtt but has now been converted to PPI po bid - Tolerating gluten free diet - If emergent utilization of blood required, may require transfer to tertiary care facility with larger blood bank given limitations with her antibodies in blood. - Consider TXA if needed - Follow CBC in the morning -> Lower today at 7.3, but not moving quickly. (5) Coagulopathy: Plan: Coagulopathy / Thrombocytopenia - Admission labs concerning for INR 2.5 / PTT 77.2 / PLT 11 in setting of H&H 7.9 on arrival - notably worse from previous. ALso D-dimer 5000 - most likely etiology secondary to DIC from sepsis, in setting of MDS, liver disease with HCV history, poor nutrition (Vit K deficiency possibility) - S/p 2 units FFP and Vit K and now coags normalized as of 12/04 - Received platelets on 11/27, 12/01, 12/02, 12/03 (6) Acute respiratory failure with hypoxia: Plan: Acute Hypoxic Respiratory Failure. Upon arrival here, patient did not have O2 requirement -- however, shortly into her course, did begin desaturating into 70- 80s requiring NC/OxyMask. - Secondary to sepsis and does have recent COVID infection, COPD, PNA, however I do not feel that this admission is related to Covid-19 at all. (7) AURORA (acute kidney injury): Plan: Acute Kidney Injury - Has history of CKD with creatinine baseline around 0.7 - 0.9. Cr at baseline as of 12/04. - With fluids and blood products, returned to baseline. (8) COVID-19: Plan: COVID-19 - Patient recently tested positive again for COVID-19, first time approx. ~7 days ago at the end of October. - During last hospitalization, was not hypoxic and therefore was not started on dexamethasone / remdesivir. - No steroids needed as her hypoxia is not from COVID. 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 Discussed hospice with both the patient and her family, but patient declines this at this time. (11) Migraine: Plan: No pain reported today. 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 (14) Urge and stress incontinence: Plan: - Continue oxybutynin (15) COPD (chronic obstructive pulmonary disease): Plan: With a history of smoking and lung cancer. - Nebs as needed (16) Hx of Clostridium difficile infection: Plan: History of C. difficile Infection-with 4 loose stools on 12/03. - On chronic vancomycin suppressive therapy twice weekly - Increased vancomycin 125 Mg p.o. once daily while on antibiotics (17) Cirrhosis of liver: Plan: - Noted with a history of hep C that has been treated (18) SACHA (obstructive sleep apnea): Plan: Obstructive Sleep Apnea - Utilizes CPAP qHS -- utilize while here Admission and Anticipated Discharge Date Admission Date: November 26, 2021 Subjective Doing well today. Feels better than last week. More strength. Having fewer stools per day presently and they are firmer. Reports no fevers/chills, chest pain, shortness of breath, abdominal pain, nausea, or vomiting. Physical Exam Constitutional: WD/WN, vitals as above Eyes: EOM intact bilaterally; no conjunctival abnormality ENMT: external ear and nose normal, oropharynx normal Neck: trachea midline, no thyromegaly normal visual inspection Respiratory: normal respiratory effort, lungs clear to auscultation no respiratory distress Cardiovascular: RRR, no murmur, no edema Gastrointestinal (Abdomen): Inspection/Auscultation: abdomen normal to inspec tion; abdomen not distended Musculoskeletal: no cyanosis or clubbing, extremities motor strength 5/5 Skin: no rashes, warm and dry Neurologic: moves all extremities and awake Psychiatric: Orientation: alert, oriented to person and cooperative Results & Data Results & Data ([facility]) Vital Signs (Past 12 Hours) Vital Signs Temp Pulse Pulse Resp BP BP Pulse Ox 12/04/21 15:27 36.5 C 88 18 104/64 91 12/04/21 14:36 36.5 C 82 16 106/54 L 12/04/21 13:40 36.5 C 96 H 18 93/53 L 90 12/04/21 12:40 36.6 C 84 16 98/53 L 92 12/04/21 12:10 36.6 C 86 18 98/57 L 92 12/04/21 11:53 36.5 C 85 18 100/59 L 95 12/04/21 11:38 36.7 C 83 18 101/62 95 12/04/21 07:29 36.6 C 88 14 98/58 L 90 PG Care Time/CCT Total # of Minutes Spent Total Time Spent with Patient: Total time spent is greater than 50% in coordination of care (as documented) at patient's floor/unit and/or counseling patient: Coding Level of Care Code 05507 Subseq Hosp Care Lvl 2 Diagnoses UTI (urinary tract infection) N39.0 Pancytopenia D61.818 Sepsis A41.9 UGIB (upper gastrointestinal bleed) K92.2 Coagulopathy D68.9 Acute respiratory failure with hypoxia J96.01 AURORA (acute kidney injury) N17.9 COVID-19 U07.1 Chronic kidney disease N18.9 MDS (myelodysplastic syndrome) D46.9 Migraine G43.909 Celiac disease K90.0 Prothrombin [id number] mutation D68.52 Urge and stress incontinence N39.46 COPD (chronic obstructive pulmonary disease) J44.9 Hx of Clostridium difficile infection Z86.19 Cirrhosis of liver K74.60 SACHA (obstructive sleep apnea) G47.33
[2021-12-04] MEDS: QUEtiapine FUMARATE 25 MG TABLET PO SCH (22:59)
[2021-12-04] MEDS: MIRABEGRON ER 25 MG TAB PO SCH (23:00)
[2021-12-04] MEDS: SERTRALINE HCL 50 MG TABLET PO SCH (23:00)
[2021-12-04] MEDS: clonazePAM 0.5 MG TAB PO SCH (23:04)
[2021-12-05] MEDS: oxyCODONE HCL IR 5 MG TAB (IMMEDIATE RELEASE) PO PRN ×3 (03:32→17:38)
[2021-12-05] MEDS: MEROPENEM 500 MG in SYRINGE 0 ML IV SCH ×4 (06:07→22:21)
[2021-12-05 06:45] LABS: Albumin Globulin Ratio 1.3 (0.9-2); Albumin Level 2.8 gm/dl (3.4-5.0); BUN Creatinine Ratio 14.6 (10-20); Bilirubin,Total 0.7 mg/dl (0.2-1.0); Calcium 8.2 mg/dl (8.5-10.1); Creatinine Clr Calc Pharmacy 46.9 ml/min; Est GFR (African American) 78.3 ml/min; Est GFR (Non-African American) 67.5 ml/min; Globulin 2.2 gm/dl (2.5-4.0); Magnesium 1.7 mg/dl (1.7-2.4); Phosphorus 3.4 mg/dl (2.5-4.9); Potassium 3.6 mmol/L (3.5-5.1)
[2021-12-05 07:15] LABS: Hematocrit (blood only) 21.9 % (37-47); Mean Corpuscular Hemoglobin 26.2 pg (25-34); Nucleated RBC # (auto) 0.07 K/uL (0-0); Nucleated RBC % (auto) 9.5 %; Platelet Count 11 K/uL (130-400); RDW Coefficient of Variation 17.9 % (11.5-14.5); RDW Standard Deviation 52.6 fL (36.4-46.3); Red Blood Count 2.67 M/uL (4.2-5.4); White Blood Count 0.78 K/uL (4.8-10.8)
[2021-12-05 07:20] LABS: ALC (manual) 0.42 K/uL (1.2-3.4); ANC (manual) 0.27 K/uL (1.4-6.5); Blast # (manual) 0.03 K/uL (0-0); Blast Cells % (manual) 3.4 %; Giant Platelets 1+; Lymphocytes # (manual) 0.42 K/uL (1.2-3.4); Lymphocytes % (manual) 54.1 %; Monocytes # (manual) 0.04 K/uL (0.11-0.59); Monocytes % (manual) 5.7 %; Myelocytes # (manual) 0.02 K/uL (0-0); Myelocytes % (manual) 2.3 %; Neutrophils # (manual) 0.27 K/uL (1.4-6.5); Neutrophils % (manual) 34.5 %; Platelet Estimate SIGNIFIC DECREASED (Normal); Schistocytes Occasional; Toxic Granulation 1+
[2021-12-05] MEDS ORDERED: SODIUM CHLORIDE 0.9% 250 ML IV PRN (07:32)
[2021-12-05] MEDS: METOPROLOL SUCC 25MG EXT REL TAB PO SCH (09:00)
[2021-12-05] MEDS: ACYCLOVIR 400 MG TAB PO SCH ×2 (09:06→22:21)
[2021-12-05] MEDS: OXYBUTYNIN CHLORIDE XL 5 MG TABCR PO SCH (09:07)
[2021-12-05] MEDS: GABAPENTIN 400 MG CAP PO SCH (09:07)
[2021-12-05] MEDS: FOLIC ACID 1 MG TAB PO SCH (09:07)
[2021-12-05] MEDS: MAGNESIUM OXIDE 400 MG TAB PO SCH (09:07)
[2021-12-05] MEDS: RASPBERRY SYRUP 5 ML UDP PO SCH (09:07)
[2021-12-05] MEDS: ADVANCED PROBIOTIC 1250 MG CAPSULE PO SCH (09:07)
[2021-12-05] MEDS: VANCOMYCIN HCL 125 MG/2.5ML SOLN PO SCH (09:07)
[2021-12-05] MEDS: PANTOprazole 40 MG TAB PO SCH ×2 (09:07→22:22)
[2021-12-05] MEDS: TOPIRAMATE 100 MG TAB PO SCH ×2 (09:07→22:23)
[2021-12-05] MEDS: CETIRIZINE HCL 10 MG TABLET PO SCH (09:08)
[2021-12-05] MEDS: FERROUS SULFATE 325 MG TAB PO SCH (09:08)
[2021-12-05] MEDS: FLUCONAZOLE 100 MG TAB PO SCH (09:08)
[2021-12-05] MEDS: FLUTICASONE/VILANTEROL 100/25MCG 14 PUFFS/INHALER INH SCH (09:08)
[2021-12-05] MEDS: METHOCARBAMOL 750 MG TABLET PO PRN (12:34)
--- NOTE | 2021-12-05 13:50 | Hospitalist Progress Note ---
Date of Service December 05, 2021 Assessment & Plan (1) UTI (urinary tract infection): Plan: History of Hydronephrosis with Ureteral Stent Placement. - Recent history of ureteral stents placed in 07/2021 and 09/2021 (exchanged) - Unfortunately, had associated UTIs since that time-currently with ESBL Klebsiella - Consulted urology about stent exchange - Spoke with urology on 12/05. No further stent exchanges. Recommend that she be evaluated by tertiary care center for stent removal and nephrostomy tubes. Will speak with patient about possible transfer before calling [facility]. - Continue meropenem until 12/06. => Plan to start Keflex/doxy for urine ppx at discharge. 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 - Gave Neupogen 480 mcg SQ daily x 3 days-final dose on 11/29 - Gave Procrit 40,000 units x 1 on 11/29 - Received platelets on 11/27, 12/01, 12/02, 12/04 - Received PRBCs on 11/27 & 12/05 Plan: Transfuse for RBCs ~7 mg/dL and platelets < 10k. -> Reached out to oncology on 12/05 who confirmed present transfusion plan. (3) Sepsis: Plan: Sepsis- with recurrent UTI. (4) UGIB (upper gastrointestinal bleed): Plan: Suspected UGIB - History primarily concerning for hematemesis/UGIB based on recent odynophagia, "spitting up blood" (non-projectile), nausea, decreased appetite. But could also be secondary to hemoptysis or epistaxis - Known history of HCV-induced cirrhosis. Last EGD seems to be 10/2019, per Dr. Chavez's [facility] note, which did NOT reveal any esophageal varices; did show Z-line irregularities and esophageal plaques c/w candidiasis - No need for octreotide with no h/o known varices - In setting of significant coagulopathy (INR 2.5, PTT 77.2, Plt 11) -- notably progressed since prior admission , coagulopathy now improved with FFP and Vit K. - Hgb 7.9 on arrival, then 6.9,received 2 units PRBCs on 11/28 -hemoglobin was up appropriately to 9.3. - Appreciate GI consult--> no urgent EGD given tenuous status and she has stopped bleeding, consider outpt EGD -Initially received PPI gtt but has now been converted to PPI po bid - Tolerating gluten free diet - If emergent utilization of blood required, may require transfer to tertiary care facility with larger blood bank given limitations with her antibodies in blood. - Consider TXA if needed - Follow CBC in the morning -> Lower today at 7.0, but not moving quickly. Did order 1 unit of PRBCs which should come tonight from [employer]. (5) Coagulopathy: Plan: Coagulopathy / Thrombocytopenia - Admission labs concerning for INR 2.5 / PTT 77.2 / PLT 11 in setting of H&H 7.9 on arrival - notably worse from previous. ALso D-dimer 5000 - most likely etiology secondary to DIC from sepsis, in setting of MDS, liver disease with HCV history, poor nutrition (Vit K deficiency possibility) - S/p 2 units FFP and Vit K and now coags normalized as of 12/04 - Received platelets on 11/27, 12/01, 12/02, 12/03 -> Coags normal on recheck on 12/04. (6) Acute respiratory failure with hypoxia: Plan: Acute Hypoxic Respiratory Failure. Upon arrival here, patient did not have O2 requirement -- however, shortly into her course, did begin desaturating into 70- 80s requiring NC/OxyMask. - Secondary to sepsis and does have recent COVID infection, COPD, PNA, however I do not feel that this admission is related to Covid-19 at all. (7) AURORA (acute kidney injury): Plan: Acute Kidney Injury - Has history of CKD with creatinine baseline around 0.7 - 0.9. Cr at baseline as of 12/04. - With fluids and blood products, returned to baseline. (8) COVID-19: Plan: COVID-19 - Patient recently tested positive again for COVID-19, first time approx. ~7 days ago at the end of October. - During last hospitalization, was not hypoxic and therefore was not started on dexamethasone / remdesivir. - No steroids needed as her hypoxia is not from COVID. 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 Discussed hospice with both the patient and her family, but patient declines this at this time. When asked where she sees herself in 3-6 months, she says "At home, with my family." but cannot really relate how she will get there given she needs daily transfusions. (11) Migraine: Plan: No pain reported today. - Continue Topamax, Fioricet as needed (12) Celiac disease: Plan: Needs gluten-free diet (13) Prothrombin [id number] mutation: Plan: With a history of VTE, no longer on anticoagulation given severe pancytopenia and history of bleeding. (14) Urge and stress incontinence: Plan: - Continue oxybutynin (15) COPD (chronic obstructive pulmonary disease): Plan: With a history of smoking and lung cancer. - Nebs as needed (16) Hx of Clostridium difficile infection: Plan: History of C. difficile Infection-with 4 loose stools on 12/03, but on 12/04 & 12/05, she has firmed stools. - On chronic vancomycin suppressive therapy twice weekly - Increased vancomycin 125 Mg p.o. once daily while on antibiotics (17) Cirrhosis of liver: Plan: - Noted with a history of hep C that has been treated (18) SACHA (obstructive sleep apnea): Plan: Obstructive Sleep Apnea - Utilizes CPAP qHS -- utilize while here Admission and Anticipated Discharge Date Admission Date: November 26, 2021 Subjective Feels weak today. Otherwise, stable. Some burning with urination that improves with Pyridium. Reports no fevers/chills, chest pain, shortness of breath, abdominal pain, nausea, or vomiting. Physical Exam Constitutional: WD/WN, vitals as above Eyes: EOM intact bilaterally; no conjunctival abnormality ENMT: external ear and nose normal, oropharynx normal Neck: trachea midline, no thyromegaly normal visual inspection Respiratory: normal respiratory effort, lungs clear to auscultation no respiratory distress Cardiovascular: RRR, no murmur, no edema Gastrointestinal (Abdomen): Inspection/Auscultation: abdomen normal to inspection; abdomen not distended Musculoskeletal: no cyanosis or clubbing, extremities motor strength 5/5 Skin: no rashes, warm and dry Neurologic: moves all extremities and awake Psychiatric: Orientation: alert, oriented to person and cooperative Results & Data Results & Data ([place]) Vital Signs (Past 12 Hours) Vital Signs Temp Pulse Pulse Resp BP Pulse Ox 12/05/21 09:13 88/51 L 12/05/21 07:29 36.7 C 104 H 16 95/48 L 94 12/05/21 03:37 74 20 91 PG Care Time/CCT Total # of Minutes Spent Total Time Spent with Patient: Total time spent is greater than 50% in coordination of care (as documented) at patient's floor/unit and/or counseling patient: Coding Level of Care Code 47167 Subseq Hosp Care Lvl 2 Diagnoses UTI (urinary tract infection) N39.0 Pancytopenia D61.818 Sepsis A41.9 UGIB (upper gastrointestinal bleed) K92.2 Coagulopathy D68.9 Acute respiratory failure with hypoxia J96.01 AURORA (acute kidney injury) N17.9 COVID-19 U07.1 Chronic kidney disease N18.9 MDS (myelodysplastic syndrome) D46.9 Migraine G43.909 Celiac disease K90.0 Prothrombin [id number] mutation D68.52 Urge and stress incontinence N39.46 COPD (chronic obstructive pulmonary disease) J44.9 Hx of Clostridium difficile infection Z86.19 Cirrhosis of liver K74.60 SACHA (obstructive sleep apnea) G47.33
[2021-12-05] MEDS: clonazePAM 0.5 MG TAB PO SCH (22:21)
[2021-12-05] MEDS: QUEtiapine FUMARATE 25 MG TABLET PO SCH (22:22)
[2021-12-05] MEDS: MIRABEGRON ER 25 MG TAB PO SCH (22:22)
[2021-12-05] MEDS: SERTRALINE HCL 50 MG TABLET PO SCH (22:23)
[2021-12-06] MEDS: MEROPENEM 500 MG in SYRINGE 0 ML IV SCH ×4 (05:49→22:35)
[2021-12-06 06:27] LABS: BUN Creatinine Ratio 16.3 (10-20); Calcium 8.2 mg/dl (8.5-10.1); Creatinine Clr Calc Pharmacy 45.4 ml/min; Est GFR (African American) 75.2 ml/min; Est GFR (Non-African American) 64.9 ml/min; Potassium 3.7 mmol/L (3.5-5.1)
[2021-12-06 06:41] LABS: Hematocrit (blood only) 20.4 % (37-47); Hemoglobin 6.5 g/dL (12.0-16.0); Mean Corpuscular Hemoglobin 26.2 pg (25-34); Mean Corpuscular Hgb Conc 31.9 g/dL (32-36); Mean Corpuscular Volume 82.3 fL (80-100); Nucleated RBC # (auto) 0.05 K/uL (0-0); Nucleated RBC % (auto) 4.9 %; Platelet Count 12 K/uL (130-400); RDW Coefficient of Variation 17.9 % (11.5-14.5); Red Blood Count 2.48 M/uL (4.2-5.4); White Blood Count 0.92 K/uL (4.8-10.8)
[2021-12-06 06:52] LABS: Giant Platelets 1+; Microcytosis Present; Platelet Estimate SIGNIFIC DECREASED (Normal); Polychromasia 1+; Schistocytes 1+; Toxic Granulation 1+
[2021-12-06] MEDS ORDERED: SODIUM CHLORIDE 0.9% 250 ML IV PRN (06:59)
[2021-12-06 07:01] LABS: ALC (manual) 0.54 K/uL (1.2-3.4); ANC (manual) 0.28 K/uL (1.4-6.5); Basophils # (manual) 0.02 K/uL (0-0.2); Basophils % (manual) 2.2 %; Blast # (manual) 0.03 K/uL (0-0); Blast Cells % (manual) 3.2 %; Lymphocytes # (manual) 0.54 K/uL (1.2-3.4); Lymphocytes % (manual) 59.1 %; Monocytes # (manual) 0.05 K/uL (0.11-0.59); Monocytes % (manual) 5.4 %; Neutrophils # (manual) 0.28 K/uL (1.4-6.5); Neutrophils % (manual) 30.1 %
[2021-12-06] MEDS: CETIRIZINE HCL 10 MG TABLET PO SCH (07:53)
[2021-12-06] MEDS: diphenhydrAMINE Capsule 25 MG CAP PO PRN ×2 (07:55→14:49)
[2021-12-06] MEDS: FLUCONAZOLE 100 MG TAB PO SCH (07:55)
[2021-12-06] MEDS: ACETAMINOPHEN 500 MG TAB PO PRN ×2 (07:55→14:50)
[2021-12-06] MEDS: METOPROLOL SUCC 25MG EXT REL TAB PO SCH (07:56)
[2021-12-06] MEDS: FOLIC ACID 1 MG TAB PO SCH (07:56)
[2021-12-06] MEDS: OXYBUTYNIN CHLORIDE XL 5 MG TABCR PO SCH (07:57)
[2021-12-06] MEDS: TOPIRAMATE 100 MG TAB PO SCH ×2 (07:57→22:36)
[2021-12-06] MEDS: GABAPENTIN 400 MG CAP PO SCH (07:58)
[2021-12-06] MEDS: MAGNESIUM OXIDE 400 MG TAB PO SCH (07:59)
[2021-12-06] MEDS: FERROUS SULFATE 325 MG TAB PO SCH (07:59)
[2021-12-06] MEDS: ADVANCED PROBIOTIC 1250 MG CAPSULE PO SCH (08:00)
[2021-12-06] MEDS: METHOCARBAMOL 750 MG TABLET PO PRN ×2 (08:01→22:35)
[2021-12-06] MEDS: RASPBERRY SYRUP 5 ML UDP PO SCH (08:01)
[2021-12-06] MEDS: ACYCLOVIR 400 MG TAB PO SCH ×2 (08:01→22:37)
[2021-12-06] MEDS: VANCOMYCIN HCL 125 MG/2.5ML SOLN PO SCH (08:01)
[2021-12-06] MEDS: PANTOprazole 40 MG TAB PO SCH ×2 (08:02→22:37)
[2021-12-06] MEDS: oxyCODONE HCL IR 5 MG TAB (IMMEDIATE RELEASE) PO PRN ×3 (08:05→22:35)
[2021-12-06] MEDS: FLUTICASONE/VILANTEROL 100/25MCG 14 PUFFS/INHALER INH SCH (12:08)
--- NOTE | 2021-12-06 12:27 | Hospitalist Progress Note ---
Date of Service December 06, 2021 Assessment & Plan (1) UTI (urinary tract infection): Plan: History of Hydronephrosis with Ureteral Stent Placement. - Recent history of ureteral stents placed in 07/2021 and 09/2021 (exchanged) - Unfortunately, had associated UTIs since that time-currently with ESBL Klebsiella - Consulted urology about stent exchange - Spoke with urology on 12/05. No further stent exchanges. Recommend that she be evaluated by tertiary [facility] for stent removal and nephrostomy tubes. Patient and myself previously spoke about transfer to tertiary care facility for nephrostomy tubes and both agreed that she is high risk for any sort of procedure given her severe, chronic thrombocytopenia. Her oncologist also does not think that IR would be willing to do this. Urology did suggest previously also that she may need to go to a facility at an even larger center than [facility] t[facility] that is used to dealing with high risk interventional cases. Patient declines to do this at this time - Continue meropenem until the evening of 12/06- this will complete a 10-day course => Plan to start Keflex/doxy for urine ppx at discharge. 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 - Gave Neupogen 480 mcg SQ daily x 3 days-final dose on 11/29 - Gave Procrit 40,000 units x 1 on 11/29 - Received platelets on 11/27, 12/01, 12/02, 12/04, and now again on 12/06 - Received PRBCs on 11/27 & 12/05, and now again on 12/06 for hemoglobin 6.5 Plan: Transfuse for RBCs ~7 mg/dL and platelets < 10k. -> Reached out to oncology on 12/05 who confirmed present transfusion plan. -Follow CBC in the morning -Follows with hematology once weekly with labs followed by transfusions in the next day typically -Follow-up with hematology after discharge (3) Sepsis: Plan: Sepsis- with recurrent UTI. Now resolved (4) UGIB (upper gastrointestinal bleed): Plan: Suspected UGIB - History primarily concerning for hematemesis/UGIB based on recent odynophagia, "spitting up blood" (non-projectile), nausea, decreased appetite. But could also be secondary to hemoptysis or epistaxis - Known history of HCV-induced cirrhosis. Last EGD seems to be 10/2019, per Dr. Chavez's [facility] note, which did NOT reveal any esophageal varices; did show Z-line irregularities and esophageal plaques c/w candidiasis - No need for octreotide with no h/o known varices - In setting of significant coagulopathy (INR 2.5, PTT 77.2, Plt 11) -- notably progressed since prior admission , coagulopathy now improved with FFP and Vit K. - Hgb 7.9 on arrival, then 6.9,received 2 units PRBCs on 11/28 -hemoglobin was up appropriately to 9.3. - Appreciate GI consult--> no urgent EGD given tenuous status and she has stopped bleeding, consider outpt EGD -Initially received PPI gtt but has now been converted to PPI po bid - Tolerating gluten free diet, no further bleeding - If emergent utilization of blood required, may require transfer to tertiary care facility with larger blood bank given limitations with her antibodies in blood. - Consider TXA if needed - Follow CBC in the morning (5) Coagulopathy: Plan: Coagulopathy / Thrombocytopenia - Admission labs concerning for INR 2.5 / PTT 77.2 / PLT 11 in setting of H&H 7.9 on arrival - notably worse from previous. ALso D-dimer 5000 - most likely etiology secondary to DIC from sepsis, in setting of MDS, liver disease with HCV history, poor nutrition (Vit K deficiency possibility) - S/p 2 units FFP and Vit K and now coags normalized as of 12/04 - Received platelets on 11/27, 12/01, 12/02, 12/03, and again on 12/06 -> Coags normal on recheck on 12/04. (6) Acute respiratory failure with hypoxia: Plan: Acute Hypoxic Respiratory Failure. Upon arrival here, patient did not have O2 requirement -- however, shortly into her course, did begin desaturating into 70- 80s requiring NC/OxyMask. - Secondary to sepsis and does have recent COVID infection, COPD, PNA, however I do not feel that this admission is related to Covid-19 at all. -Now completely resolved for many days Does not need oxygen at discharge (7) AURORA (acute kidney injury): Plan: Acute Kidney Injury - Has history of CKD with creatinine baseline around 0.7 - 0.9. Cr at baseline as of 12/04. - With fluids and blood products, returned to baseline. (8) COVID-19: Plan: COVID-19 - Patient recently tested positive again for COVID-19, first time approx. ~7 days ago at the end of October. - During last hospitalization, was not hypoxic and therefore was not started on dexamethasone / remdesivir. - No steroids needed as her hypoxia is not from COVID. 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 Discussed hospice with both the patient and her family, but patient declines this at this time. When asked where she sees herself in 3-6 months, she says "At home, with my family." but cannot really relate how she will get there given she needs daily transfusions. (11) Migraine: Plan: No pain reported today. 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 (14) Urge and stress incontinence: Plan: - Continue oxybutynin although this could contribute to recurrent UTIs-consider stopping this at discharge (15) COPD (chronic obstructive pulmonary disease): Plan: With a history of smoking and lung cancer. - Nebs as needed (16) Hx of Clostridium difficile infection: Plan: History of C. difficile Infection-with 4 loose stools on 12/03, but on 12/04 & 12/05, she has firmed stools. - On chronic vancomycin suppressive therapy twice weekly - Increased vancomycin 125 Mg p.o. once daily while on antibiotics-we will now decrease back to her usual twice weekly dosing (17) Cirrhosis of liver: Plan: - Noted with a history of hep C that has been treated (18) SACHA (obstructive sleep apnea): Plan: Obstructive Sleep Apnea - Utilizes CPAP qHS -- utilize while here Plan: DVT prophylaxis-SCDs Disposition-plan to discharge to home tomorrow with home health as long as blood counts are stable, no further IV antibiotics needed Admission and Anticipated Discharge Date Admission Date: November 26, 2021 Anticipated date of discharge: 12/07/21 Subjective Patient feels a little worn out today and hemoglobin is on 6.5, she is currently receiving her first unit of PRBCs that was ordered yesterday. No bleeding from anywhere. Reports some scant hemoptysis within the last day but nothing major. No blood in the stool or melena. Is eating and drinking like usual, no diarrhea. She is ambulating around the room and reports a physical therapy told her she does not need any physical therapy. Also reports that her son and his girlfriend that live with her are currently dealing with a GI bug and she is worried about going home and being around them tomorrow. Review of Systems Review of Systems: All systems reviewed & are unremarkable except as noted in HPI & below Physical Exam Constitutional: + thin Eyes: + anicteric sclerae Neck: trachea midline, no thyromegaly Respiratory: normal respiratory effort; no cough Auscultation: + diminished lung sounds (throughout); no rhonchi and no wheezes Cardiovascular: RRR, no murmur, no edema Chest (Breasts): Chest: normal inspection of chest Gastrointestinal (Abdomen): normal bowel sounds, soft, nontender, no hepatosplenomegaly Musculoskeletal: Extremities: extremities normal to inspection; no cyanosis and no clubbing Skin: no rashes, warm and dry + ecchymosis (numerous areas of bruising and ecchymosis, petechiae on extremities) Neurologic: moves all extremities and awake; no focal motor deficits Psychiatric: A+Ox3, euthymic affect Orientation: cooperative Lymphatic: no lymphedema Results & Data Results & Data ([facility]) Vital Signs (Past 12 Hours) Vital Signs Temp Pulse Pulse Pulse Resp BP BP 12/06/21 12:00 36.8 C 91 H 16 90/48 L 12/06/21 11:45 36.5 C 94 H 16 94/58 L 12/06/21 11:26 36.6 C 83 16 95/57 L 12/06/21 10:02 37.2 C 107 H 16 81/41 L 12/06/21 09:35 36.6 C 105 H 104 H 18 97/51 L 12/06/21 08:46 36.7 C 105 H 18 89/56 L 12/06/21 08:30 36.7 C 105 H 16 91/48 L 12/06/21 08:15 36.6 C 97 H 16 97/54 L 12/06/21 07:50 36.6 C 104 H 16 97/54 L 12/06/21 04:06 80 21 Pulse Ox 12/06/21 12:00 12/06/21 11:45 12/06/21 11:26 12/06/21 10:02 12/06/21 09:35 90 12/06/21 08:46 91 12/06/21 08:30 12/06/21 08:15 91 12/06/21 07:50 91 12/06/21 04:06 94 Laboratory Results 12/06/21 12/06/21 12/05/21 Range/Units 05:46 05:46 07:54 WBC 0.92 L* (4.8-10.8) K/uL RBC 2.48 L (4.2-5.4) M/uL Hgb 6.5 L* (12.0-16.0) g/dL Hct 20.4 L* (37-47) % MCV 82.3 (80-100) fL MCH 26.2 (25-34) pg MCHC 31.9 L (32-36) g/dL RDW Std Deviation 53.0 H (36.4-46.3) fL RDW Coeff of Irasema 17.9 H (11.5-14.5) % Plt Count 12 L* (130-400) K/uL Absolute Nucleated RBC 0.05 H (0-0) K/uL Nucleated RBC % (auto) 4.9 % Neutrophils % (Manual) 30.1 % Lymphocytes % (Manual) 59.1 % Monocytes % (Manual) 5.4 % Basophils % (Manual) 2.2 % Blast Cells % (Manual) 3.2 % Neutrophils # (Manual) 0.28 L (1.4-6.5) K/uL Total Absolute Neuts 0.28 L* (1.4-6.5) K/uL Lymphocytes # (Manual) 0.54 L (1.2-3.4) K/uL Total Abs Lymphocytes 0.54 L (1.2-3.4) K/uL Monocytes # (Manual) 0.05 L (0.11-0.59) K/uL Basophils # (Manual) 0.02 (0-0.2) K/uL Blast Cells # (Man) 0.03 H (0-0) K/uL Toxic Granulation 1+ Platelet Estimate SIGNIFIC DECREASED (Normal) Giant Platelets 1+ Polychromasia 1+ Microcytosis Present Schistocytes 1+ Sodium 136 (136-145) mmol/L Potassium 3.7 (3.5-5.1) mmol/L Chloride 103 (98-107) mmol/L Carbon Dioxide 29 (21-32) mmol/L Anion Gap 4 (3-11) BUN 15 (6-23) mg/dl Creatinine 0.92 (0.6-1.2) mg/dl Est Cr Clr Drug Dosing 45.4 ml/min Est GFR ( Amer) 75.2 ml/min Est GFR (Non-Af Amer) 64.9 ml/min BUN/Creatinine Ratio 16.3 (10-20) Glucose 96 (70-99(Fasting)) mg/dl Calcium 8.2 L (8.5-10.1) mg/dl Blood Type Antibody Screen Antibody Identification Antibody ID Referred Antibody ID Comment Crossmatch 12/05/21 Range/Units 07:54 WBC (4.8-10.8) K/uL RBC (4.2-5.4) M/uL Hgb (12.0-16.0) g/dL Hct (37-47) % MCV (80-100) fL MCH (25-34) pg MCHC (32-36) g/dL RDW Std Deviation (36.4-46.3) fL RDW Coeff of Irasema (11.5-14.5) % Plt Count (130-400) K/uL Absolute Nucleated RBC (0-0) K/uL Nucleated RBC % (auto) % Neutrophils % (Manual) % Lymphocytes % (Manual) % Monocytes % (Manual) % Basophils % (Manual) % Blast Cells % (Manual) % Neutrophils # (Manual) (1.4-6.5) K/uL Total Absolute Neuts (1.4-6.5) K/uL Lymphocytes # (Manual) (1.2-3.4) K/uL Total Abs Lymphocytes (1.2-3.4) K/uL Monocytes # (Manual) (0.11-0.59) K/uL Basophils # (Manual) (0-0.2) K/uL Blast Cells # (Man) (0-0) K/uL Toxic Granulation Platelet Estimate (Normal) Giant Platelets Polychromasia Microcytosis Schistocytes Sodium (136-145) mmol/L Potassium (3.5-5.1) mmol/L Chloride (98-107) mmol/L Carbon Dioxide (21-32) mmol/L Anion Gap (3-11) BUN (6-23) mg/dl Creatinine (0.6-1.2) mg/dl Est Cr Clr Drug Dosing ml/min Est GFR ( Amer) ml/min Est GFR (Non-Af Amer) ml/min BUN/Creatinine Ratio (10-20) Glucose (70-99(Fasting)) mg/dl Calcium (8.5-10.1) mg/dl Blood Type B Positive Antibody Screen POSITIVE A Antibody Identification Anti-E Antibody ID Referred Antibody ID Comment Cancelled Crossmatch See Detail PG Care Time/CCT Total # of Minutes Spent Total Time Spent with Patient: Total time spent is greater than 50% in coordination of care (as documented) at patient's floor/unit and/or counseling patient: Coding Level of Care Code 34432 Subseq Hosp Care Lvl 2 Diagnoses UTI (urinary tract infection) N39.0 Pancytopenia D61.818 Sepsis A41.9 UGIB (upper gastrointestinal bleed) K92.2 Coagulopathy D68.9 Acute respiratory failure with hypoxia J96.01 AURORA (acute kidney injury) N17.9 COVID-19 U07.1 Chronic kidney disease N18.9 MDS (myelodysplastic syndrome) D46.9 Migraine G43.909 Celiac disease K90.0 Prothrombin [id number] mutation D68.52 Urge and stress incontinence N39.46 COPD (chronic obstructive pulmonary disease) J44.9 Hx of Clostridium difficile infection Z86.19 Cirrhosis of liver K74.60 SACHA (obstructive sleep apnea) G47.33
[2021-12-06] MEDS ORDERED: CYANOCOBALAMIN 1000 MCG/ML VIAL IM ONE (14:37)
[2021-12-06] MEDS ORDERED: EPOETIN ALFA 40,000 UNITS/ML VIAL SQ ONE (14:37)
[2021-12-06] MEDS: clonazePAM 0.5 MG TAB PO SCH (22:36)
[2021-12-06] MEDS: SERTRALINE HCL 50 MG TABLET PO SCH (22:36)
[2021-12-06] MEDS: MIRABEGRON ER 25 MG TAB PO SCH (22:37)
[2021-12-06] MEDS: QUEtiapine FUMARATE 25 MG TABLET PO SCH (22:37)
[2021-12-06] MEDS: PHENAZOPYRIDINE HCL 200 MG TAB PO PRN (22:38)
[2021-12-07] MEDS: ACYCLOVIR 400 MG TAB PO SCH ×2 (07:34→22:49)
[2021-12-07] MEDS: GABAPENTIN 400 MG CAP PO SCH (07:35)
[2021-12-07] MEDS: METHOCARBAMOL 750 MG TABLET PO PRN (07:35)
[2021-12-07] MEDS: PANTOprazole 40 MG TAB PO SCH ×2 (07:35→22:51)
[2021-12-07] MEDS: MAGNESIUM OXIDE 400 MG TAB PO SCH (07:36)
[2021-12-07] MEDS: TOPIRAMATE 100 MG TAB PO SCH ×2 (07:37→22:52)
[2021-12-07] MEDS: CETIRIZINE HCL 10 MG TABLET PO SCH (07:37)
[2021-12-07] MEDS: FLUCONAZOLE 100 MG TAB PO SCH (07:38)
[2021-12-07] MEDS: FERROUS SULFATE 325 MG TAB PO SCH (07:38)
[2021-12-07] MEDS: FOLIC ACID 1 MG TAB PO SCH (07:39)
[2021-12-07] MEDS: ADVANCED PROBIOTIC 1250 MG CAPSULE PO SCH (07:39)
[2021-12-07] MEDS: METOPROLOL SUCC 25MG EXT REL TAB PO SCH (07:40)
[2021-12-07] MEDS: OXYBUTYNIN CHLORIDE XL 5 MG TABCR PO SCH ×2 (07:40→22:49)
[2021-12-07] MEDS: RASPBERRY SYRUP 5 ML UDP PO SCH (07:46)
[2021-12-07] MEDS: oxyCODONE HCL IR 5 MG TAB (IMMEDIATE RELEASE) PO PRN ×3 (07:46→22:48)
[2021-12-07] MEDS: VANCOMYCIN HCL 125 MG/2.5ML SOLN PO SCH (07:47)
[2021-12-07] MEDS: FLUTICASONE/VILANTEROL 100/25MCG 14 PUFFS/INHALER INH SCH (07:48)
[2021-12-07 09:01] LABS: BUN Creatinine Ratio 18.2 (10-20); Calcium 8.2 mg/dl (8.5-10.1); Creatinine Clr Calc Pharmacy 47.5 ml/min; Est GFR (African American) 79.4 ml/min; Est GFR (Non-African American) 68.5 ml/min; Potassium 3.5 mmol/L (3.5-5.1)
[2021-12-07 09:03] LABS: Hemoglobin 8.9 g/dL (12.0-16.0); Mean Corpuscular Hemoglobin 26.9 pg (25-34); Mean Corpuscular Volume 81.6 fL (80-100); Platelet Count 10 K/uL (130-400); RDW Coefficient of Variation 16.5 % (11.5-14.5); RDW Standard Deviation 48.6 fL (36.4-46.3); Red Blood Count 3.31 M/uL (4.2-5.4); White Blood Count 1.03 K/uL (4.8-10.8)
[2021-12-07 09:14] LABS: Nucleated RBC # (auto) 0.05 K/uL (0-0); Nucleated RBC % (auto) 4.9 %
[2021-12-07 09:15] LABS: Giant Platelets 1+; Platelet Estimate SIGNIFIC DECREASED (Normal); Tear Drop Cells 1+
[2021-12-07 09:16] LABS: ALC (manual) 0.69 K/uL (1.2-3.4); ANC (manual) 0.26 K/uL (1.4-6.5); Blast # (manual) 0.04 K/uL (0-0); Blast Cells % (manual) 3.9 %; Lymphocytes # (manual) 0.69 K/uL (1.2-3.4); Lymphocytes % (manual) 66.7 %; Monocytes # (manual) 0.02 K/uL (0.11-0.59); Myelocytes # (manual) 0.03 K/uL (0-0); Myelocytes % (manual) 2.6 %; Neutrophils # (manual) 0.26 K/uL (1.4-6.5); Neutrophils % (manual) 24.8 %
[2021-12-07] MEDS: ACETAMINOPHEN 500 MG TAB PO PRN ×2 (11:15→23:40)
[2021-12-07] MEDS: diphenhydrAMINE Capsule 25 MG CAP PO PRN (11:15)
--- NOTE | 2021-12-07 12:35 | Progress Notes ---
DATE OF SERVICE: 12/07/2021 DIAGNOSIS: Myelodysplasia (refractory anemia). OUTLINE OF DISCUSSION: I was asked by the hospitalist service initially for consultation and subsequ ently for further discussion with Aleja Haq regarding end-of-life care moving forward. DICTATION ENDS HERE Job ID: [id number]
--- NOTE | 2021-12-07 13:02 | Progress Notes ---
DATE OF SERVICE: 12/07/2021 I met with Aleja Haq at bedside today. I initially saw her in consultation on 11/29 outlining her overall prognosis regarding specifically myelodysplasia and refractory anemia. Aleja Haq unfortunately has had a pattern of hospitalization, discharged home for perhaps a week and readmitted because of intermittent fever. She has clearly documented urologic issues with ureteral stents in place, which are most likely ongoing source of her infections moving forward. Unfortunately, urology is reluctant to change out these stents because of Aleja haq's comorbid issues and from hematologic standpoint, particularly refractory platelet count. The patient continues receiving blood products on average every 2-3 days of either supplemental platelets or packed RBCs. I was asked by the hospitalist service to engage Aleja Haq once again to reinforce her prognosis, which is quite poor. 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 However, bone marrow biopsy and aspiration done in June unfortunately didn't yield adequate aspirate for cytogenetics or flow cytometry. That said, there is no argument, her bone marrow is failing as she requies supplemental Procrit as well as transfusional support over the past several months. She was given one course of 5-azacitidine, which unfortunately resulted in refractory pancytopenia moving forward. Thus, multiple resources, particularly blood products, have been utilized and unfortunately there's nothing further to offer her at [facility] regarding myelodysplasia moving forward other than supportive care already provided. I explained to Aleja Haq, patients with myelodysplasia generally succumb to either bleeding or infection. She is at risk for both. In fairness, I asked Aleja Haq if she would prefer a tertiary center consultation, specifically for repeat bone marrow biopsy and speak to another specialist regarding her care moving forward. I suspect the senior consultant will echo my concerns with Aleja Haq and her overall prognosis specifically. Aleja Haq had replied to me that she wishes to see her grandchildren and great grandchildren grow up, and I advised her that must be probably not realistic that based on her pattern of inpatient admissions and requirement for blood products that her survival is probably measured in months at this point. That said, also discussed the pitfalls of frequent transfusion including alloimmunization and iron overload. I suspect her ferritin is very high secondary iron overload. Aleja haq has agreed to tertiary center consultation and we will make arrangements for her to visit with [facility] in the coming weeks, specifically for repeat bone marrow biopsy and aspiration and discussion regarding diagnosis, prognosis and treatment options. Lastly, I engaged in discussion regarding hospice care. Aleja Haq specifically inquired how the process worked. Hospice can be initiated in patients who understand the terminality of their disease and have abandoned the desire to receive heroic measures. Once Aleja Haq decides that she will not pursue intubation, mechanical ventilation, CPR and/or dialysis, I would be more than happy to proceed with orders for hospice care. I briefly outlined how hospice works and the benefits thereof. I was informed by the hospitalist service that Aleja Haq will return home today. We will plan to see her at [facility] within the next week or 2 while monitoring her blood counts at least twice weekly. Questions and concerns were addressed during today's encounter. Job ID: [id number] [facility]
--- NOTE | 2021-12-07 13:37 | Hospitalist Progress Note ---
Date of Service December 07, 2021 Assessment & Plan (1) UTI (urinary tract infection): Plan: History of Hydronephrosis with Ureteral Stent Placement. - Recent history of ureteral stents placed in 07/2021 and 09/2021 (exchanged) - Unfortunately, had associated UTIs since that time-currently with ESBL Klebsiella - Consulted urology about stent exchange - Spoke with urology on 12/05. No further stent exchanges. Recommend that she be evaluated by tertiary care center for stent removal and nephrostomy tubes. Will speak with patient about possible transfer before calling [facility]. - Finished meropenem on 12/06. => Plan to start Keflex/doxy for urine ppx at discharge. 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 - Gave Neupogen 480 mcg SQ daily x 3 days-final dose on 11/29 - Gave Procrit 40,000 units x 1 on 11/29 - Received platelets on 11/27, 12/01, 12/02, 12/04, 12/06 - Received 2 units of PRBCs on 11/27 & 2 units on 12/06 Plan: Transfuse for RBCs ~7 mg/dL and platelets < 10k. -> Reached out to oncology on 12/05 who confirmed present transfusion plan. (3) Sepsis: Plan: Sepsis- with recurrent UTI. (4) UGIB (upper gastrointestinal bleed): Plan: Suspected UGIB - History primarily concerning for hematemesis/UGIB based on recent odynophagia, "spitting up blood" (non-projectile), nausea, decreased appetite. But could also be secondary to hemoptysis or epistaxis - Known history of HCV-induced cirrhosis. Last EGD seems to be 10/2019, per Dr. Chavez's [facility] note, which did NOT reveal any esophageal varices; did show Z-line irregularities and esophageal plaques c/w candidiasis - No need for octreotide with no h/o known varices - In setting of significant coagulopathy (INR 2.5, PTT 77.2, Plt 11) -- notably progressed since prior admission , coagulopathy now improved with FFP and Vit K. - Hgb 7.9 on arrival, then 6.9,received 2 units PRBCs on 11/28 -hemoglobin was up appropriately to 9.3. - Appreciate GI consult--> no urgent EGD given tenuous status and she has stopped bleeding, consider outpt EGD -Initially received PPI gtt but has now been converted to PPI po bid - Tolerating gluten free diet - If emergent utilization of blood required, may require transfer to tertiary care facility with larger blood bank given limitations with her antibodies in blood. - Consider TXA if needed - Follow CBC in the morning (5) Coagulopathy: Plan: Coagulopathy / Thrombocytopenia - Admission labs concerning for INR 2.5 / PTT 77.2 / PLT 11 in setting of H&H 7.9 on arrival - notably worse from previous. ALso D-dimer 5000 - most likely etiology secondary to DIC from sepsis, in setting of MDS, liver disease with HCV history, poor nutrition (Vit K deficiency possibility) - S/p 2 units FFP and Vit K and now coags normalized as of 12/04 - Received platelets on 11/27, 12/01, 12/02, 12/03 -> Coags normal on recheck on 12/04. (6) Acute respiratory failure with hypoxia: Plan: Acute Hypoxic Respiratory Failure. Upon arrival here, patient did not have O2 requirement -- however, shortly into her course, did begin desaturating into 70- 80s requiring NC/OxyMask. - Secondary to sepsis and does have recent COVID infection, COPD, PNA, however I do not feel that this admission is related to Covid-19 at all. (7) AURORA (acute kidney injury): Plan: Acute Kidney Injury - Has history of CKD with creatinine baseline around 0.7 - 0.9. Cr at baseline as of 12/04. - With fluids and blood products, returned to baseline. (8) COVID-19: Plan: COVID-19 - Patient recently tested positive again for COVID-19, first time approx. ~7 days ago at the end of October. - During last hospitalization, was not hypoxic and therefore was not started on dexamethasone / remdesivir. - No steroids needed as her hypoxia is not from COVID. 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 Discussed hospice with both the patient and her family, but patient declines this at this time. When asked where she sees herself in 3-6 months, she says "At home, with my family." but cannot really relate how she will get there given she needs daily transfusions. (11) Migraine: Plan: No pain reported today. - Continue Topamax, Fioricet as needed (12) Celiac disease: Plan: Needs gluten-free diet (13) Prothrombin [id number] mutation: Plan: With a history of VTE, no longer on anticoagulation given severe pancytopenia and history of bleeding. (14) Urge and stress incontinence: Plan: - Continue oxybutynin (15) COPD (chronic obstructive pulmonary disease): Plan: With a history of smoking and lung cancer. - Nebs as needed (16) Hx of Clostridium difficile infection: Plan: History of C. difficile Infection-with 4 loose stools on 12/03, but on 12/04 & 12/05, she has firmed stools. - On chronic vancomycin suppressive therapy twice weekly - Increased vancomycin 125 Mg p.o. once daily while on antibiotics (17) Cirrhosis of liver: Plan: - Noted with a history of hep C that has been treated (18) SACHA (obstructive sleep apnea): Plan: Obstructive Sleep Apnea - Utilizes CPAP qHS -- utilize while here Admission and Anticipated Discharge Date Admission Date: November 26, 2021 Subjective Feels tired today. No major issues otherwise. Still stable BMs. Reports no fevers/chills, chest pain, shortness of breath, abdominal pain, nausea, or vomiting. Physical Exam Constitutional: WD/WN, vitals as above Eyes: EOM intact bilaterally; no conjunctival abnormality ENMT: external ear and nose normal, oropharynx normal Neck: trachea midline, no thyromegaly normal visual inspection Respiratory: normal respiratory effort, lungs clear to auscultation no respiratory distress Cardiovascular: RRR, no murmur, no edema Gastrointestinal (Abdomen): Inspection/Auscultation: abdomen normal to inspection; abdomen not distended Musculoskeletal: no cyanosis or clubbing, extremities motor strength 5/5 Skin: no rashes, warm and dry Neurologic: moves all extremities and awake Psychiatric: Orientation: alert, oriented to person and cooperative Results & Data Results & Data ([facility]) Vital Signs (Past 12 Hours) Vital Signs Temp Pulse Pulse Resp BP BP Pulse Ox 02/16/22 12:40 36.9 C 90 18 94/60 L 91 12/07/21 12:05 36.9 C 85 16 81/46 L 96 12/07/21 11:50 36.4 C L 85 16 82/54 L 96 12/07/21 11:28 36.7 C 18 93/56 L 91 12/07/21 07:14 36.8 C 85 16 102/61 96 12/07/21 03:40 90 20 96 PG Care Time/CCT Total # of Minutes Spent Total Time Spent with Patient: Total time spent is greater than 50% in coordination of care (as documented) at patient's floor/unit and/or counseling patient: Coding Level of Care Code 43412 Subseq Hosp Care Lvl 2 Diagnoses UTI (urinary tract infection) N39.0 Pancytopenia D61.818 Sepsis A41.9 UGIB (upper gastrointestinal bleed) K92.2 Coagulopathy D68.9 Acute respiratory failure with hypoxia J96.01 AURORA (acute kidney injury) N17.9 COVID-19 U07.1 Chronic kidney disease N18.9 MDS (myelodysplastic syndrome) D46.9 Migraine G43.909 Celiac disease K90.0 Prothrombin [id number] mutation D68.52 Urge and stress incontinence N39.46 COPD (chronic obstructive pulmonary disease) J44.9 Hx of Clostridium difficile infection Z86.19 Cirrhosis of liver K74.60 SACHA (obstructive sleep apnea) G47.33
[2021-12-07] MEDS: clonazePAM 0.5 MG TAB PO SCH (22:49)
[2021-12-07] MEDS: PHENAZOPYRIDINE HCL 200 MG TAB PO PRN (22:49)
[2021-12-07] MEDS: QUEtiapine FUMARATE 25 MG TABLET PO SCH (22:50)
[2021-12-07] MEDS: SERTRALINE HCL 50 MG TABLET PO SCH (22:51)
[2021-12-07] MEDS: MIRABEGRON ER 25 MG TAB PO SCH (22:52)
[2021-12-08 06:59] LABS: Hematocrit (blood only) 24.5 % (37-47); Hemoglobin 7.9 g/dL (12.0-16.0); Mean Corpuscular Hemoglobin 26.4 pg (25-34); Mean Corpuscular Volume 81.9 fL (80-100); Platelet Count 12 K/uL (130-400); RDW Coefficient of Variation 16.5 % (11.5-14.5); RDW Standard Deviation 48.2 fL (36.4-46.3); Red Blood Count 2.99 M/uL (4.2-5.4); White Blood Count 0.74 K/uL (4.8-10.8)
[2021-12-08 07:04] LABS: Calcium 8.1 mg/dl (8.5-10.1); Creatinine Clr Calc Pharmacy 44.4 ml/min; Est GFR (African American) 73.3 ml/min; Est GFR (Non-African American) 63.2 ml/min; Magnesium 1.7 mg/dl (1.7-2.4); Potassium 3.3 mmol/L (3.5-5.1)
[2021-12-08 07:06] LABS: Mean Corpuscular Hgb Conc 32.2 g/dL (32-36); Nucleated RBC # (auto) 0.03 K/uL (0-0); Nucleated RBC % (auto) 4.5 %
[2021-12-08 07:20] LABS: ALC (manual) 0.41 K/uL (1.2-3.4); ANC (manual) 0.21 K/uL (1.4-6.5); Basophils # (manual) 0.02 K/uL (0-0.2); Basophils % (manual) 2.7 %; Blast # (manual) 0.04 K/uL (0-0); Blast Cells % (manual) 5.4 %; Giant Platelets 1+; Lymphocytes # (manual) 0.41 K/uL (1.2-3.4); Lymphocytes % (manual) 55.9 %; Monocytes # (manual) 0.03 K/uL (0.11-0.59); Monocytes % (manual) 4.5 %; Myelocytes # (manual) 0.02 K/uL (0-0); Myelocytes % (manual) 2.7 %; Neutrophils # (manual) 0.21 K/uL (1.4-6.5); Neutrophils % (manual) 28.8 %; Platelet Estimate SIGNIFIC DECREASED (Normal); Tear Drop Cells 1+; Toxic Granulation 1+
[2021-12-08] MEDS: METOPROLOL SUCC 25MG EXT REL TAB PO SCH (08:56)
--- NOTE | 2021-12-08 09:02 | Electrocardiogram Report ---
Test Reason : Blood Pressure : / mmHG Vent. Rate : 113 BPM Atrial Rate : 113 BPM P-R Int : 154 ms QRS Dur : 070 ms QT Int : 310 ms P-R-T Axes : 073 083 074 degrees QTc Int : 425 ms Sinus tachycardia Otherwise normal ECG When compared with ECG of 26-NOV-2021 21:25, HR has increased by 35 bpm Otherwise no significant change Confirmed by Collin Deng ([id number]) on 12/08/2021 9:01:47 AM Referred By: REFERRED SELF Confirmed By:Collin Deng
[2021-12-08] MEDS: oxyCODONE HCL IR 5 MG TAB (IMMEDIATE RELEASE) PO PRN ×4 (09:04→22:47)
[2021-12-08] MEDS: VANCOMYCIN HCL 125 MG/2.5ML SOLN PO SCH (09:05)
[2021-12-08] MEDS: CETIRIZINE HCL 10 MG TABLET PO SCH (09:06)
[2021-12-08] MEDS: FLUCONAZOLE 100 MG TAB PO SCH (09:06)
[2021-12-08] MEDS: FERROUS SULFATE 325 MG TAB PO SCH (09:06)
[2021-12-08] MEDS: ACYCLOVIR 400 MG TAB PO SCH ×2 (09:06→22:43)
[2021-12-08] MEDS: FLUTICASONE/VILANTEROL 100/25MCG 14 PUFFS/INHALER INH SCH (09:07)
[2021-12-08] MEDS: GABAPENTIN 400 MG CAP PO SCH (09:08)
[2021-12-08] MEDS: ADVANCED PROBIOTIC 1250 MG CAPSULE PO SCH (09:08)
[2021-12-08] MEDS: FOLIC ACID 1 MG TAB PO SCH (09:08)
[2021-12-08] MEDS: MAGNESIUM OXIDE 400 MG TAB PO SCH (09:08)
[2021-12-08] MEDS: PANTOprazole 40 MG TAB PO SCH ×2 (09:09→22:45)
[2021-12-08] MEDS: RASPBERRY SYRUP 5 ML UDP PO SCH (09:09)
[2021-12-08] MEDS: TOPIRAMATE 100 MG TAB PO SCH ×2 (09:09→22:44)
[2021-12-08] MEDS: METHOCARBAMOL 750 MG TABLET PO PRN ×2 (09:52→22:47)
[2021-12-08] MEDS ORDERED: MEROPENEM CONSULT ACTIVE PRN (12:05)
--- NOTE | 2021-12-08 12:05 | Hospitalist Progress Note ---
Date of Service December 08, 2021 Assessment & Plan (1) UTI (urinary tract infection): Plan: History of Hydronephrosis with Ureteral Stent Placement. - Recent history of ureteral stents placed in 07/2021 and 09/2021 (exchanged) - Unfortunately, had associated UTIs since that time-currently with ESBL Klebsiella - Consulted urology about stent exchange - Spoke with urology on 12/05. No further stent exchanges. Recommend that she be evaluated by tertiary care center for stent removal and nephrostomy tubes. Will speak with patient about possible transfer before calling [facility]. - Finished meropenem on 12/06. Had another fever on 12/07 after 24 hours off antibiotics. - Recultured. Will restart meropenem. => Plan to start Keflex/doxy for urine ppx at discharge. 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 - Gave Neupogen 480 mcg SQ daily x 3 days-final dose on 11/29 - Gave Procrit 40,000 units x 1 on 11/29 - Received platelets on 11/27, 12/01, 12/02, 12/04, 12/06 - Received 2 units of PRBCs on 11/27 & 2 units on 12/06 Plan: Transfuse for RBCs ~7 mg/dL and platelets < 10k. -> Reached out to oncology on 12/05 who confirmed present transfusion plan. (3) Sepsis: Plan: Sepsis- with recurrent UTI. (4) UGIB (upper gastrointestinal bleed): Plan: Suspected UGIB - History primarily concerning for hematemesis/UGIB based on recent odynophagia, "spitting up blood" (non-projectile), nausea, decreased appetite. But could also be secondary to hemoptysis or epistaxis - Known history of HCV-induced cirrhosis. Last EGD seems to be 10/2019, per Dr. Chavez's [facility] note, which did NOT reveal any esophageal varices; did show Z-line irregularities and esophageal plaques c/w candidiasis - No need for octreotide with no h/o known varices - In setting of significant coagulopathy (INR 2.5, PTT 77.2, Plt 11) -- notably progressed since prior admission , coagulopathy now improved with FFP and Vit K. - Hgb 7.9 on arrival, then 6.9,received 2 units PRBCs on 11/28 -hemoglobin was up appropriately to 9.3. - Appreciate GI consult--> no urgent EGD given tenuous status and she has stopped bleeding, consider outpt EGD -Initially received PPI gtt but has now been converted to PPI po bid - Tolerating gluten free diet - If emergent utilization of blood required, may require transfer to tertiary care facility with larger blood bank given limitations with her antibodies in blood. - Consider TXA if needed - Follow CBC in the morning (5) Coagulopathy: Plan: Coagulopathy / Thrombocytopenia - Admission labs concerning for INR 2.5 / PTT 77.2 / PLT 11 in setting of H&H 7.9 on arrival - notably worse from previous. ALso D-dimer 5000 - most likely etiology secondary to DIC from sepsis, in setting of MDS, liver disease with HCV history, poor nutrition (Vit K deficiency possibility) - S/p 2 units FFP and Vit K and now coags normalized as of 12/04 - Received platelets on 11/27, 12/01, 12/02, 12/03 -> Coags normal on recheck on 12/04. (6) Acute respiratory failure with hypoxia: Plan: Acute Hypoxic Respiratory Failure. Upon arrival here, patient did not have O2 requirement -- however, shortly into her course, did begin desaturating into 70- 80s requiring NC/OxyMask. - Secondary to sepsis and does have recent COVID infection, COPD, PNA, however I do not feel that this admission is related to Covid-19 at all. (7) AURORA (acute kidney injury): Plan: Acute Kidney Injury - Has history of CKD with creatinine baseline around 0.7 - 0.9. Cr at baseline as of 12/04. - With fluids and blood products, returned to baseline. (8) COVID-19: Plan: COVID-19 - Patient recently tested positive again for COVID-19, first time approx. ~7 days ago at the end of October. - During last hospitalization, was not hypoxic and therefore was not started on dexamethasone / remdesivir. - No steroids needed as her hypoxia is not from COVID. 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 Discussed hospice with both the patient and her family, but patient declines this at this time. When asked where she sees herself in 3-6 months, she says "At home, with my family." but cannot really relate how she will get there given she needs daily transfusions. (11) Migraine: Plan: No pain reported today. 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 (14) Urge and stress incontinence: Plan: - Continue oxybutynin (15) COPD (chronic obstructive pulmonary disease): Plan: With a history of smoking and lung cancer. - Nebs as needed (16) Hx of Clostridium difficile infection: Plan: History of C. difficile Infection-with 4 loose stools on 12/03, but on 12/04 & 12/05, she has firmed stools. - On chronic vancomycin suppressive therapy twice weekly - Increased vancomycin 125 Mg p.o. once daily while on antibiotics (17) Cirrhosis of liver: Plan: - Noted with a history of hep C that has been treated (18) SACHA (obstructive sleep apnea): Plan: Obstructive Sleep Apnea - Utilizes CPAP qHS -- utilize while here Admission and Anticipated Discharge Date Admission Date: November 26, 2021 Subjective No complaints this morning, but she did have a fever overnight. She is discouraged by this, and is asking if she can possibly go home. Reports no chest pain, shortness of breath, abdominal pain, nausea, or vomiting. Physical Exam Constitutional: WD/WN, vitals as above Eyes: EOM intact bilaterally; no conjunctival abnormality ENMT: external ear and nose normal, oropharynx normal Neck: trachea midline, no thyromegaly normal visual inspection Respiratory: normal respiratory effort, lungs clear to auscultation no respiratory distress Cardiovascular: RRR, no murmur, no edema Gastrointestinal (Abdomen): Inspection/Auscultation: abdomen normal to inspection; abdomen not distended Musculoskeletal: no cyanosis or clubbing, extremities motor strength 5/5 Skin: no rashes, warm and dry Neurologic: moves all extremities and awake Psychiatric: Orientation: alert, oriented to person and cooperative Results & Data Results & Data ([facility]) Vital Signs (Past 12 Hours) Vital Signs Temp Pulse Pulse Resp BP Pulse Ox 12/08/21 07:38 36.3 C L 60 16 94/53 L 94 12/08/21 03:23 95 H 16 95 12/08/21 00:15 103 H 19 96 12/08/21 00:13 36.9 C 106 H 18 116/60 89 L PG Care Time/CCT Total # of Minutes Spent Total Time Spent with Patient: Total time spent is greater than 50% in coordination of care (as documented) at patient's floor/unit and/or counseling patient: Coding Level of Care Code 10193 Subseq Hosp Care Lvl 2 Diagnoses UTI (urinary tract infection) N39.0 Pancytopenia D61.818 Sepsis A41.9 UGIB (upper gastrointestinal bleed) K92.2 Coagulopathy D68.9 Acute respiratory failure with hypoxia J96.01 AURORA (acute kidney injury) N17.9 COVID-19 U07.1 Chronic kidney disease N18.9 MDS (myelodysplastic syndrome) D46.9 Migraine G43.909 Celiac disease K90.0 Prothrombin [id number] mutation D68.52 Urge and stress incontinence N39.46 COPD (chronic obstructive pulmonary disease) J44.9 Hx of Clostridium difficile infection Z86.19 Cirrhosis of liver K74.60 SACHA (obstructive sleep apnea) G47.33
[2021-12-08 12:19] LABS: Appearance Urine Cloudy (Clear); Bilirubin Urine Negative (Negative); Blood Urine 3+ (Negative); Color Urine Dark Yellow; Glucose Urine UA Negative (Negative); Ketones Urine Negative (Negative); Leukocyte Esterase Urine 2+ (Negative); Nitrite Urine Positive (Negative); Protein Urine 2+ (Negative); Specific Gravity Urine 1.012 (1.000-1.030); Urobilinogen Urine Negative (Negative); WBC Urine Automated >30 /hpf (0-5); pH Urine 6.5 (4.5-7.5)
[2021-12-08 12:40] LABS: Bacteria Urine Automated 1+ (Negative); Calcium Oxalate Crystals Urine Present (None Prsent)
[2021-12-08] MEDS: MEROPENEM 500 MG in SYRINGE 0 ML IV SCH ×2 (13:45→18:08)
[2021-12-08] MEDS: clonazePAM 0.5 MG TAB PO SCH (22:42)
[2021-12-08] MEDS: QUEtiapine FUMARATE 25 MG TABLET PO SCH (22:44)
[2021-12-08] MEDS: MIRABEGRON ER 25 MG TAB PO SCH (22:45)
[2021-12-08] MEDS: SERTRALINE HCL 50 MG TABLET PO SCH (22:46)
[2021-12-09] MEDS: MEROPENEM 500 MG in SYRINGE 0 ML IV SCH ×4 (01:27→22:47)
[2021-12-09 06:44] LABS: Hematocrit (blood only) 22.8 % (37-47); Hemoglobin 7.4 g/dL (12.0-16.0); Mean Corpuscular Hemoglobin 26.8 pg (25-34); Mean Corpuscular Volume 82.6 fL (80-100); Platelet Count 13 K/uL (130-400); RDW Standard Deviation 50.6 fL (36.4-46.3); Red Blood Count 2.76 M/uL (4.2-5.4); White Blood Count 0.93 K/uL (4.8-10.8)
[2021-12-09 07:02] LABS: BUN Creatinine Ratio 15.6 (10-20); Calcium 8.1 mg/dl (8.5-10.1); Creatinine Clr Calc Pharmacy 38.3 ml/min; Est GFR (African American) 61.3 ml/min; Est GFR (Non-African American) 52.9 ml/min; Magnesium 1.6 mg/dl (1.7-2.4); Potassium 3.3 mmol/L (3.5-5.1)
[2021-12-09 07:06] LABS: Basophils # (auto) 0.01 K/uL (0-0.2); Basophils % (auto) 1.1 %; Giant Platelets 2+; Immature Granulocytes # (auto) 0.01 K/uL (0.00-0.02); Immature Granulocytes % (auto) 1.1 %; Lymphocytes # (auto) 0.54 K/uL (1.2-3.4); Lymphocytes % (auto) 58.1 %; Mean Corpuscular Hgb Conc 32.5 g/dL (32-36); Monocytes # (auto) 0.14 K/uL (0.11-0.59); Monocytes % (auto) 15.1 %; Neutrophils # (auto) 0.23 K/uL (1.4-6.5); Neutrophils % (auto) 24.6 %; Nucleated RBC # (auto) 0.05 K/uL (0-0); Nucleated RBC % (auto) 5.3 %; Platelet Estimate SIGNIFIC DECREASED (Normal); Poikilocytosis Present
[2021-12-09] MEDS: oxyCODONE HCL IR 5 MG TAB (IMMEDIATE RELEASE) PO PRN ×3 (07:50→22:41)
[2021-12-09] MEDS: FLUTICASONE/VILANTEROL 100/25MCG 14 PUFFS/INHALER INH SCH (08:19)
[2021-12-09] MEDS: RASPBERRY SYRUP 5 ML UDP PO SCH (08:19)
[2021-12-09] MEDS: VANCOMYCIN HCL 125 MG/2.5ML SOLN PO SCH (08:20)
[2021-12-09] MEDS: ACYCLOVIR 400 MG TAB PO SCH ×2 (08:20→22:40)
[2021-12-09] MEDS: FERROUS SULFATE 325 MG TAB PO SCH (08:20)
[2021-12-09] MEDS: CETIRIZINE HCL 10 MG TABLET PO SCH (08:20)
[2021-12-09] MEDS: FLUCONAZOLE 100 MG TAB PO SCH (08:20)
[2021-12-09] MEDS: FOLIC ACID 1 MG TAB PO SCH (08:22)
[2021-12-09] MEDS: MAGNESIUM OXIDE 400 MG TAB PO SCH (08:23)
[2021-12-09] MEDS: PANTOprazole 40 MG TAB PO SCH ×2 (08:23→22:40)
[2021-12-09] MEDS: OXYBUTYNIN CHLORIDE XL 5 MG TABCR PO SCH (08:23)
[2021-12-09] MEDS: TOPIRAMATE 100 MG TAB PO SCH ×2 (08:23→22:39)
[2021-12-09] MEDS: ADVANCED PROBIOTIC 1250 MG CAPSULE PO SCH (08:23)
[2021-12-09] MEDS: METOPROLOL SUCC 25MG EXT REL TAB PO SCH (09:23)
[2021-12-09] MEDS: GABAPENTIN 400 MG CAP PO SCH (10:15)
[2021-12-09] MEDS: METHOCARBAMOL 750 MG TABLET PO PRN ×2 (10:15→22:39)
[2021-12-09] MEDS ORDERED: ACETAMINOPHEN 325 MG TAB PO ONE (10:20)
[2021-12-09] MEDS ORDERED: POTASSIUM CHLORIDE CRTAB 20 MEQ TABCR PO STA (10:20)
[2021-12-09] MEDS ORDERED: SODIUM CHLORIDE 0.9% 250 ML IV PRN (10:20)
--- NOTE | 2021-12-09 10:27 | Hospitalist Progress Note ---
Date of Service December 09, 2021 Assessment & Plan (1) UTI (urinary tract infection): Plan: History of Hydronephrosis with Ureteral Stent Placement. - Recent history of ureteral stents placed in 07/2021 and 09/2021 (exchanged) - Unfortunately, had associated UTIs since that time-currently with ESBL Klebsiella - Consulted urology about stent exchange - Spoke with urology on 12/05. No further stent exchanges. Recommend that she be evaluated by tertiary care center for stent removal and nephrostomy tubes. Will speak with patient about possible transfer before calling [facility]. - Finished meropenem on 12/06. Had another fever on 12/07 after 24 hours off antibiotics. - Recultured. Restarted meropenem 12/08/2021 => Plan to start Keflex/doxy for urine ppx at discharge. 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 - Gave Neupogen 480 mcg SQ daily x 3 days-final dose on 11/29 - Gave Procrit 40,000 units x 1 on 11/29 - Received platelets on 11/27, 12/01, 12/02, 12/04, 12/06 - Received 2 units of PRBCs on 11/27 & 2 units on 12/06 Plan: Transfuse for RBCs ~7 mg/dL and platelets < 10k. -> Reached out to oncology on 12/05 who confirmed present transfusion plan. At this time will give patient 1 unit of packed red blood cells irradiated and leukoreduced 12/09/2021 Hold on further transfusion of platelets unless platelet count dropped below 10,000 or patient has active bleeding -patient does have antibodies and requires supply from blood bank in [place] (3) Sepsis: Plan: Sepsis- with recurrent UTI. Resolved but requires ongoing antibiotics for ESBL with Klebsiella pneumonia (4) UGIB (upper gastrointestinal bleed): Plan: Suspected UGIB - History primarily concerning for hematemesis/UGIB based on recent odynophagia, "spitting up blood" (non-projectile), nausea, decreased appetite. But could also be secondary to hemoptysis or epistaxis - Known history of HCV-induced cirrhosis. Last EGD seems to be 10/2019, per Dr. Chavez's [facility] note, which did NOT reveal any esophageal varices; did show Z-line irregularities and esophageal plaques c/w candidiasis - No need for octreotide with no h/o known varices - In setting of significant coagulopathy (INR 2.5, PTT 77.2, Plt 11) -- notably progressed since prior admission , coagulopathy now improved with FFP and Vit K. - Hgb 7.9 on arrival, then 6.9,received 2 units PRBCs on 11/28 -hemoglobin was up appropriately to 9.3. - Appreciate GI consult--> no urgent EGD given tenuous status and she has stopped bleeding, consider outpt EGD -Initially received PPI gtt but has now been converted to PPI po bid - Tolerating gluten free diet -Follow serial labs (5) Coagulopathy: Plan: Coagulopathy / Thrombocytopenia - Admission labs concerning for INR 2.5 / PTT 77.2 / PLT 11 in setting of H&H 7.9 on arrival - notably worse from previous. ALso D-dimer 5000 - most likely etiology secondary to DIC from sepsis, in setting of MDS, liver disease with HCV history, poor nutrition (Vit K deficiency possibility) - S/p 2 units FFP and Vit K and now coags normalized as of 12/04 - Received platelets on 11/27, 12/01, 12/02, 12/03 -> Coags normal on recheck on 12/04. -No active bleeding (6) Acute respiratory failure with hypoxia: Plan: Acute Hypoxic Respiratory Failure. Upon arrival here, patient did not have O2 requirement -- however, shortly into her course, did begin desaturating into 70- 80s requiring NC/OxyMask. - Secondary to sepsis and does have recent COVID infection, COPD, PNA, however I do not feel that this admission is related to Covid-19 at all. Hypoxia is now resolved and patient is oxygenating well on room air. (7) AURORA (acute kidney injury): Plan: Acute Kidney Injury - Has history of CKD with creatinine baseline around 0.7 - 0.9. Cr at baseline as of 12/04. - With fluids and blood products, returned to baseline. -Follow serial labs (8) COVID-19: Plan: COVID-19 - Patient recently tested positive again for COVID-19, first time at the end of October. - During last hospitalization, was not hypoxic and therefore was not started on dexamethasone / remdesivir. - No steroids needed as her hypoxia is not from COVID. - As per infection control on 12/02, she can come off isolation precautions -Oxygenating well on room air (9) Chronic kidney disease: Plan: CKD stage II-III (10) MDS (myelodysplastic syndrome): Plan: As above. Patient currently is transfusion dependent. Long discussion with patient today and explained that she cannot indefinitely continue with transfusion of platelets and packed red blood cells. Family meeting scheduled for today at 3:30 PM to discuss hospice versus transfer to tertiary care facility for bone marrow biopsy and consideration of bone marrow transplant At this time we are only providing temporizing conditions with transfusions (11) Migraine: Plan: No pain reported today. - Continue Topamax, Fioricet as needed (12) Celiac disease: Plan: Continue gluten-free diet (13) Prothrombin [id number] mutation: Plan: With a history of VTE, no longer on anticoagulation given severe pancytopenia and history of bleeding. (14) Urge and stress incontinence: Plan: - Continue oxybutynin (15) COPD (chronic obstructive pulmonary disease): Plan: With a history of smoking and lung cancer. - Nebs as needed (16) Hx of Clostridium difficile infection: Plan: History of C. difficile Infection-with 4 loose stools on 12/03, but on 12/04 & 12/05, she has firmed stools. - On chronic vancomycin suppressive therapy twice weekly - Increased vancomycin 125 Mg p.o. once daily while on antibiotics (17) Cirrhosis of liver: Plan: - Noted with a history of hep C that has been treated (18) SACHA (obstructive sleep apnea): Plan: Obstructive Sleep Apnea - Utilizes CPAP qHS -- utilize while here (19) Electrolyte imbalance: Plan: Potassium 3.3. Will replete with 40 mEq of p.o. potassium chloride today Magnesium is 1.6. Will replete with 2 g of magnesium sulfate Plan: Disposition: Family meeting scheduled for 3:30pm this afternoon to discuss care plan Admission and Anticipated Discharge Date Admission Date: November 26, 2021 Supervising Physician Co-Signing Physician Notes chart reviewed, case d/w E Angela PAC Subjective Attending: Dr. Rider Patient seen and examined at bedside in room 302. She has no acute complaints at this time. She continues to have chronic weakness secondary to her chronic disease. She continues to be pancytopenic and an order for packed red blood cells has been placed for transfusion today. Patient has a stable platelet count at 13,000. No active bleeding. Patient denies any fever, chills, sweats, rigors. No pain or shortness of breath reported. Long discussion with Mrs. Duron at bedside lasting approximately 45 minutes. 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 She is aware that the only option for treatment is evaluation for possible bone marrow biopsy and transfusion. She is also aware that this can only be done at a tertiary care facility. A family meeting has been scheduled for 330 this afternoon. Will discuss plan of care at that time. Review of Systems Review of Systems: All systems reviewed & are unremarkable except as noted in Subjective Physical Exam Physical Exam: GENERAL : No acute distress. Patient appears frail and cachectic. EYES: No icterus, gaze conjugate NOSE: No evidence of epistaxis MOUTH: No lesions or candidiasis NECK: Supple LUNGS: CTA B/L, no wheezes, rales or rhonchi. Good inspirational effort. HEART: Regular, rate controlled ABDOMEN: Soft, NT, ND, BS Present EXTREMITIES: No LE edema, pedal pulses intact NEURO: A&OX3 Results & Data Results & Data ([facility]) Vital Signs (Past 12 Hours) Vital Signs Temp Pulse Pulse Resp BP Pulse Ox 12/09/21 08:25 37.1 C 101 H 18 95/54 L 90 12/09/21 03:02 97 H 16 91 12/09/21 00:23 106 H 16 94 12/08/21 23:20 37.4 C 101 H 20 117/63 90 Critical Care Results & Data Vital Signs (Past 12 Hours) Vital Signs Temp Pulse Pulse Resp BP Pulse Ox 12/09/21 08:25 37.1 C 101 H 18 95/54 L 90 12/09/21 03:02 97 H 16 91 Lab & Micro Results (Past 24 Hours) RBC 2.76 M/uL (4.2-5.4) L 12/09/21 WBC 0.93 K/uL (4.8-10.8) L* 12/09/21 Hgb 7.4 g/dL (12.0-16.0) L 12/09/21 Hct 22.8 % (37-47) L 12/09/21 MCV 82.6 fL (80-100) 12/09/21 MCH 26.8 pg (25-34) 12/09/21 MCHC 32.5 g/dL (32-36) 12/09/21 RDW Standard Deviation 50.6 fL (36.4-46.3) H 12/09/21 RDW Coefficient of Variation 17.0 % (11.5-14.5) H 12/09/21 Plt Count 13 K/uL (130-400) L* 12/09/21 Nucleated Red Blood Cells % (auto) 5.3 % 12/09/21 Nucleated RBC Absolute Count (auto) 0.05 K/uL (0-0) H 12/09/21 Neutrophils (%) (Auto) 24.6 % 12/09/21 Lymphocytes (%) (Auto) 58.1 % 12/09/21 Monocytes # (Auto) 0.14 K/uL (0.11-0.59) 12/09/21 Eosinophils # (Auto) 0.00 K/uL (0-0.5) 12/09/21 Immature Granulocyte % (Auto) 1.1 % 12/09/21 Neutrophils # (Auto) 0.23 K/uL (1.4-6.5) L* 12/09/21 Lymphocytes # (Auto) 0.54 K/uL (1.2-3.4) L 12/09/21 Monocytes # (Auto) 0.14 K/uL (0.11-0.59) 12/09/21 Eosinophils # (Auto) 0.00 K/uL (0-0.5) 12/09/21 Basophils # (Auto) 0.01 K/uL (0-0.2) 12/09/21 Immature Granulocyte # (Auto) 0.01 K/uL (0.00-0.02) 12/09/21 Hyposegmented Neutrophils 1+ 12/09/21 Giant Platelets 2+ 12/09/21 Poikilocytosis Present 12/09/21 Na 133 mmol/L (136-145) L 12/09/21 K 3.3 mmol/L (3.5-5.1) L 12/09/21 Cl 100 mmol/L (98-107) 12/09/21 CO2 26 mmol/L (21-32) 12/09/21 Anion Gap 7 (3-11) 12/09/21 BUN 17 mg/dl (6-23) 12/09/21 Creatinine 1.09 mg/dl (0.6-1.2) 12/09/21 Estimated GFR ( Amer) 61.3 ml/min 12/09/21 Estimated GFR (Non-Af Amer) 52.9 ml/min 12/09/21 BUN/Creatinine Ratio 15.6 (10-20) 12/09/21 Glu 97 mg/dl (70-99(Fasting)) 12/09/21 Ca 8.1 mg/dl (8.5-10.1) L 12/09/21 Mg 1.6 mg/dl (1.7-2.4) L 12/09/21 06:06 12/09/21 Calcium Level 8.1 mg/dl (8.5-10.1) L 12/09/21 06:06 12/09/21 Microbiology 12/08/21 11:45 Urine Culture - Preliminary Urine,Clean Catch No growth - Less than 1,000 colonies/mL, Final report to follow. 12/07/21 23:55 Aerobic Blood Culture - Preliminary Blood No growth in Aerobic bottle after 24 hours. Anaerobic Blood Culture - Preliminary No growth in Anaerobic bottle after 24 hours. 12/08/21 00:04 Aerobic Blood Culture - Preliminary Blood No growth in Aerobic bottle after 24 hours. Anaerobic Blood Culture - Preliminary No growth in Anaerobic bottle after 24 hours. I & O Totals 24 Hours 12/08/21 12/09/21 12/10/21 06:59 06:59 06:59 Intake Total 1609 / 1609 550 / 550 100 / 100 Output Total 3 Balance 1609 / 1609 547 / 547 99 / 99 Cumulative 11/26/21 20:33 thru 12/09/21 12:56 Intake Total 48645.004 Output Total 5888 Balance 18075.004 RT Ventilator Mngmt (Last Documented) Ventilator Ordered Settings Respiratory Rate 18 12/09/21 08:25 Fraction of Inspired Oxygen 100 11/27/21 00:15 Ventilator - PT Measurements Respiratory Rate 18 PG Care Time/CCT Total # of Minutes Spent Total Time Spent with Patient: Total time spent is greater than 50% in coordination of care (as documented) at patient's floor/unit and/or counseling patient: Coding Level of Care Code 63875 Subseq Hosp Care Lvl 3 Diagnoses UTI (urinary tract infection) N39.0 Pancytopenia D61.818 Sepsis A41.9 UGIB (upper gastrointestinal bleed) K92.2 Coagulopathy D68.9 Acute respiratory failure with hypoxia J96.01 AURORA (acute kidney injury) N17.9 COVID-19 U07.1 Chronic kidney disease N18.9 MDS (myelodysplastic syndrome) D46.9 Migraine G43.909 Celiac disease K90.0 Prothrombin [id number] mutation D68.52 Urge and stress incontinence N39.46 COPD (chronic obstructive pulmonary disease) J44.9 Hx of Clostridium difficile infection Z86.19 Cirrhosis of liver K74.60 SACHA (obstructive sleep apnea) G47.33 Electrolyte imbalance E87.8 Time Spent (min) 60
[2021-12-09] MEDS: MAGNESIUM SULFATE / D5W 1 GM/100 ML BAG IV SCH ×2 (10:56→13:06)
[2021-12-09] MEDS: ACETAMINOPHEN 500 MG TAB PO PRN (18:28)
[2021-12-09] MEDS: SERTRALINE HCL 50 MG TABLET PO SCH (22:39)
[2021-12-09] MEDS: MIRABEGRON ER 25 MG TAB PO SCH (22:40)
[2021-12-09] MEDS: QUEtiapine FUMARATE 25 MG TABLET PO SCH (22:40)
[2021-12-09] MEDS: clonazePAM 0.5 MG TAB PO SCH (22:41)
[2021-12-10] MEDS: MEROPENEM 500 MG in SYRINGE 0 ML IV SCH ×3 (05:47→22:05)
[2021-12-10] MEDS: oxyCODONE HCL IR 5 MG TAB (IMMEDIATE RELEASE) PO PRN ×2 (08:48→13:48)
[2021-12-10] MEDS: VANCOMYCIN HCL 125 MG/2.5ML SOLN PO SCH (08:49)
[2021-12-10] MEDS: RASPBERRY SYRUP 5 ML UDP PO SCH (08:49)
[2021-12-10] MEDS: TOPIRAMATE 100 MG TAB PO SCH ×2 (08:52→22:02)
[2021-12-10] MEDS: PANTOprazole 40 MG TAB PO SCH ×2 (08:52→22:02)
[2021-12-10] MEDS: METOPROLOL SUCC 25MG EXT REL TAB PO SCH (08:53)
[2021-12-10] MEDS: OXYBUTYNIN CHLORIDE XL 5 MG TABCR PO SCH (08:54)
[2021-12-10] MEDS: MAGNESIUM OXIDE 400 MG TAB PO SCH (08:54)
[2021-12-10] MEDS: FERROUS SULFATE 325 MG TAB PO SCH (08:54)
[2021-12-10] MEDS: FOLIC ACID 1 MG TAB PO SCH (08:54)
[2021-12-10] MEDS: FLUTICASONE/VILANTEROL 100/25MCG 14 PUFFS/INHALER INH SCH (08:54)
[2021-12-10] MEDS: ADVANCED PROBIOTIC 1250 MG CAPSULE PO SCH (08:54)
[2021-12-10] MEDS: GABAPENTIN 400 MG CAP PO SCH (08:54)
[2021-12-10] MEDS: CETIRIZINE HCL 10 MG TABLET PO SCH (08:54)
[2021-12-10] MEDS: FLUCONAZOLE 100 MG TAB PO SCH (08:54)
[2021-12-10] MEDS: ACYCLOVIR 400 MG TAB PO SCH ×2 (08:54→22:02)
[2021-12-10 09:01] LABS: Platelet Count 13 K/uL (130-400)
[2021-12-10 09:12] LABS: Hematocrit (blood only) 24.5 % (37-47); Hemoglobin 7.9 g/dL (12.0-16.0); Mean Corpuscular Hemoglobin 26.3 pg (25-34); Mean Corpuscular Hgb Conc 32.2 g/dL (32-36); Mean Corpuscular Volume 81.7 fL (80-100); Nucleated RBC # (auto) 0.04 K/uL (0-0); Nucleated RBC % (auto) 6.4 %; RDW Coefficient of Variation 16.7 % (11.5-14.5)
[2021-12-10 09:16] LABS: Lymphocytes # (auto) 0.44 K/uL (1.2-3.4); Lymphocytes % (auto) 62.9 %; Monocytes % (auto) 14.3 %; Neutrophils # (auto) 0.16 K/uL (1.4-6.5); Neutrophils % (auto) 22.8 %; Platelet Estimate SIGNIFIC DECREASED (Normal); Poikilocytosis Present
[2021-12-10 09:19] LABS: Albumin Globulin Ratio 1.1 (0.9-2); Albumin Level 2.7 gm/dl (3.4-5.0); Bilirubin,Total 0.8 mg/dl (0.2-1.0); Calcium 8.1 mg/dl (8.5-10.1); Creatinine Clr Calc Pharmacy 41.8 ml/min; Est GFR (Non-African American) 58.7 ml/min; Globulin 2.5 gm/dl (2.5-4.0); Magnesium 1.8 mg/dl (1.7-2.4); Potassium 3.8 mmol/L (3.5-5.1); Total Protein 5.2 gm/dl (6.0-8.3)
--- NOTE | 2021-12-10 14:00 | Hospitalist Progress Note ---
Date of Service December 10, 2021 Assessment & Plan (1) UTI (urinary tract infection): Plan: History of Hydronephrosis with Ureteral Stent Placement. - Recent history of ureteral stents placed in 07/2021 and 09/2021 (exchanged) - Unfortunately, had associated UTIs since that time-currently with ESBL Klebsiella - Consulted urology about stent exchange - Spoke with urology on 12/05. No further stent exchanges. Recommend that she be evaluated by tertiary care center for stent removal and nephrostomy tubes. Will hold transfer to tertiary care over the next 24 hours, as goals of care are currently being determined by the patient and her family. - Finished Meropenem on 12/06. Had another fever on 12/07 after 24 hours off antibiotics. - Recultured on 12/08, UC negative. Restarted meropenem 12/08/2021, last documented fever of 37.7 degrees C on 12/09 at 17:00. => Plan to start Keflex/doxy for urine ppx at discharge. 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 - Gave Neupogen 480 mcg SQ daily x 3 days-final dose on 11/29 - Gave Procrit 40,000 units x 1 on 11/29 - Received platelets on 11/27, 12/01, 12/02, 12/04, 12/06 - Received 2 units of PRBCs on 11/27 & 2 units on 12/06; 1 unit on 12/09. Plan: Transfuse for RBCs ~7 mg/dL and platelets < 10k or active bleeding. Does not require transfusion support at this time. Hold on further transfusion of platelets unless platelet count dropped below 10,000 or patient has active bleeding - patient does have antibodies and requires supply from blood bank in [place] (3) Sepsis: Plan: Sepsis- with recurrent UTI. Resolved but requires ongoing antibiotics for ESBL with Klebsiella pneumonia (4) UGIB (upper gastrointestinal bleed): Plan: Suspected UGIB - History primarily concerning for hematemesis/UGIB based on recent odynophagia, "spitting up blood" (non-projectile), nausea, decreased appetite. But could also be secondary to hemoptysis or epistaxis - Known history of HCV-induced cirrhosis. Last EGD seems to be 10/2019, per Dr. Chavez's [facility] note, which did NOT reveal any esophageal varices; did show Z-line irregularities and esophageal plaques c/w candidiasis - No need for octreotide with no h/o known varices - In setting of significant coagulopathy (INR 2.5, PTT 77.2, Plt 11) -- notably progressed since prior admission , coagulopathy now improved with FFP and Vit K. - Appreciate GI consult--> no urgent EGD given tenuous status and she has stopped bleeding, consider outpt EGD - Initially received PPI gtt but has now been converted to PPI po bid - Tolerating gluten free diet (5) Coagulopathy: Plan: Coagulopathy / Thrombocytopenia - Admission labs concerning for INR 2.5 / PTT 77.2 / PLT 11 in setting of H&H 7.9 on arrival - notably worse from previous. ALso D-dimer 5000 - Most likely etiology secondary to DIC from sepsis, in setting of MDS, liver disease with HCV history, poor nutrition (Vit K deficiency possibility) - S/p 2 units FFP and Vit K and now coags normalized as of 12/04 - Received platelets on 11/27, 12/01, 12/02, 12/03 -> Coags normal on recheck on 12/04. (6) Acute respiratory failure with hypoxia: Plan: Acute Hypoxic Respiratory Failure. Upon arrival here, patient did not have O2 requirement -- however, shortly into her course, did begin desaturating into 70- 80s requiring NC/OxyMask. - Secondary to sepsis and does have recent COVID infection, COPD, PNA, however I do not feel that this admission is related to Covid-19 at all. Hypoxia is now resolved and patient is oxygenating well on room air. (7) AURORA (acute kidney injury): Plan: Acute Kidney Injury - Has history of CKD with creatinine baseline around 0.7 - 0.9. Cr at baseline as of 12/04. - With fluids and blood products, returned to baseline. - Follow serial labs (8) COVID-19: Plan: COVID-19 - Patient recently tested positive again for COVID-19, first time at the end of October. - During last hospitalization, was not hypoxic and therefore was not started on dexamethasone / remdesivir. - No steroids needed as her hypoxia is not from COVID. - As per infection control on 12/02, she can come off isolation precautions -Oxygenating well on room air. 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 Patient currently is transfusion dependent. The patient has discussed her prognosis with multiple providers but does not want to pursue hospice care at this time. Discussed with her daughter and son via telephone call today, will speak with their mother this afternoon. Recommend to hold tertiary care transfer until goals of care have been determined. At this time we are only providing temporizing conditions with transfusions & IV abx. 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 (14) Urge and stress incontinence: Plan: - Continue oxybutynin (15) COPD (chronic obstructive pulmonary disease): Plan: With a history of smoking and lung cancer. - Nebs as needed (16) Hx of Clostridium difficile infection: Plan: History of C. difficile Infection-with 4 loose stools on 12/03, but on 12/04 & 12/05, she has firmed stools. - On chronic vancomycin suppressive therapy twice weekly - Increased vancomycin 125 Mg p.o. once daily while on antibiotics (17) Cirrhosis of liver: Plan: - Noted with a history of hep C that has been treated (18) SACHA (obstructive sleep apnea): Plan: Obstructive Sleep Apnea - Utilizes CPAP qHS -- utilize while here (19) Electrolyte imbalance: Plan: Monitor and replete prn. Plan: Disposition: Transfer to tertiary care vs. home with hospice pending goals of care. Admission and Anticipated Discharge Date Admission Date: November 26, 2021 Supervising Physician Co-Signing Physician Notes Attending Attestation - Chart reviewed, care plan d/w RHINA Stevenson. I agree w/ the george components of her documentation. Leeroy Mcelroy MD Subjective Ms. Duron continues to experience severe pancytopenias related to MDS diagnosis. She is transfusion dependent. The patient does report she is able to accomplish tasks in her hospital room, including ambulating to the restroom. A family meeting was held yesterday afternoon with Zohaib Miller PA-C along with Aleja Haq and her daughter/son. The patient does understand that her diagnosis is terminal but has reported on multiple occasions that she is not ready to give up yet. The concept of hospice has been mentioned to her but the patient has not agreed to service yet. Discussed her prognosis with the patient this morning along with her daughter/son via phone call. Her children are agreeable to hospice but want to honor their mothers wishes. She is agreeable to holding [facility] transfer at this point. Review of Systems Review of Systems: Constitutional: +Fatigue; Negative for weight loss, night sweats, or fever Eyes: Negative for event change of vision ENT: Negative for epistaxis, nasal discharge, sore throat, or deafness Cardiovascular: Negative for anginal type chest pain, palpitations, dizziness, diaphoresis Respiratory: Negative for new shortness of breath,hemoptysis, or purulent cough Gastrointestinal: Negative for diarrhea, hematemesis, melena, nausea, vomiting, or dyspepsia Integumentary (skin): Negative for rash or jaundice discoloration Genitourinary: Negative for urinary frequency, hematuria, or dysuria Neurological: Negative for weakness, seizure activity, headache, or dizziness Lymphatic/Hematologic: Negative for petechiae, bleeding or new adenopathy Musculoskeletal: Negative for new joint or back pain Allergic/Immunologic: Negative for unusual rash or pruritis Physical Exam Physical Exam: Constitutional: Extremely frail appearing elderly female. Respiratory: Lung sounds were generally clear bilaterally. Cardiovascular: Heart was RRR without significant murmur, gallops or rubs. Gastrointestinal: No palpable hepatic or splenomegaly. The abdomen was soft with normal bowel sounds. Musculoskeletal System: The musculoskeletal system seemed concordant with age. Skin: The skin was negative for jaundice. Extremities: Negative for edema or erythema Results & Data Results & Data ([facility]) Vital Signs (Past 12 Hours) Vital Signs Temp Pulse Pulse Resp BP Pulse Ox 12/10/21 08:21 37.2 C 111 H 19 111/60 90 12/10/21 05:50 97 H 102/54 L 12/10/21 03:08 82 17 96 Laboratory Results 12/10/21 12/10/21 12/09/21 Range/Units 08:43 08:43 10:29 WBC 0.70 L* (4.8-10.8) K/uL RBC 3.00 L (4.2-5.4) M/uL Hgb 7.9 L (12.0-16.0) g/dL Hct 24.5 L (37-47) % MCV 81.7 (80-100) fL MCH 26.3 (25-34) pg MCHC 32.2 (32-36) g/dL RDW Std Deviation 49.0 H (36.4-46.3) fL RDW Coeff of Irasema 16.7 H (11.5-14.5) % Plt Count 13 L* (130-400) K/uL Immature Gran % (Auto) 0.0 % Neut % (Auto) 22.8 % Lymph % (Auto) 62.9 % [place] % (Auto) 14.3 % Eos % (Auto) 0.0 % Baso % (Auto) 0.0 % Neut # (Auto) 0.16 L* (1.4-6.5) K/uL Lymph # (Auto) 0.44 L (1.2-3.4) K/uL [place] # (Auto) 0.10 L (0.11-0.59) K/uL Eos # (Auto) 0.00 (0-0.5) K/uL Baso # (Auto) 0.00 (0-0.2) K/uL Immature Gran # (Auto) 0.00 (0.00-0.02) K/uL Absolute Nucleated RBC 0.04 H (0-0) K/uL Nucleated RBC % (auto) 6.4 % Platelet Estimate SIGNIFIC DECREASED (Normal) Poikilocytosis Present Sodium 132 L (136-145) mmol/L Potassium 3.8 (3.5-5.1) mmol/L Chloride 99 (98-107) mmol/L Carbon Dioxide 26 (21-32) mmol/L Anion Gap 7 (3-11) BUN 17 (6-23) mg/dl Creatinine 1.00 (0.6-1.2) mg/dl Est Cr Clr Drug Dosing 41.8 ml/min Est GFR ( Amer) 68.0 ml/min Est GFR (Non-Af Amer) 58.7 ml/min BUN/Creatinine Ratio 17.0 (10-20) Glucose 100 H (70-99(Fasting)) mg/dl Calcium 8.1 L (8.5-10.1) mg/dl Magnesium 1.8 (1.7-2.4) mg/dl Total Bilirubin 0.8 (0.2-1.0) mg/dl AST 10 L (13-39) U/L ALT 13 (7-52) U/L Alkaline Phosphatase 115 H (34-104) U/L Total Protein 5.2 L (6.0-8.3) gm/dl Albumin 2.7 L (3.4-5.0) gm/dl Globulin 2.5 (2.5-4.0) gm/dl Albumin/Globulin Ratio 1.1 (0.9-2) Antibody Identification Auto [place] Agglutinin Antibody ID Comment Cancelled PG Care Time/CCT Total # of Minutes Spent Total Time Spent with Patient: Total time spent is greater than 50% in coordination of care (as documented) at patient's floor/unit and/or counseling patient: [place] [address] Subseq Hosp Care Lvl 2 Patient Type Established Diagnoses UTI (urinary tract infection) N39.0 Pancytopenia D61.818 Sepsis A41.9 UGIB (upper gastrointestinal bleed) K92.2 Coagulopathy D68.9 Acute respiratory failure with hypoxia J96.01 AURORA (acute kidney injury) N17.9 COVID-19 U07.1 Chronic kidney disease N18.9 MDS (myelodysplastic syndrome) D46.9 Migraine G43.909 Celiac disease K90.0 Prothrombin [id number] mutation D68.52 Urge and stress incontinence N39.46 COPD (chronic obstructive pulmonary disease) J44.9 Hx of Clostridium difficile infection Z86.19 Cirrhosis of liver K74.60 SACHA (obstructive sleep apnea) G47.33 Electrolyte imbalance E87.8
[2021-12-10] MEDS: diphenhydrAMINE Capsule 25 MG CAP PO PRN (16:31)
[2021-12-10] MEDS: ACETAMINOPHEN 500 MG TAB PO PRN (16:31)
[2021-12-10] MEDS: clonazePAM 0.5 MG TAB PO SCH (22:00)
[2021-12-10] MEDS: QUEtiapine FUMARATE 25 MG TABLET PO SCH (22:00)
[2021-12-10] MEDS: SERTRALINE HCL 50 MG TABLET PO SCH (22:01)
[2021-12-10] MEDS: METHOCARBAMOL 750 MG TABLET PO PRN (22:02)
[2021-12-10] MEDS: MIRABEGRON ER 25 MG TAB PO SCH (22:03)
[2021-12-11] MEDS: MEROPENEM 500 MG in SYRINGE 0 ML IV SCH ×3 (06:02→22:57)
[2021-12-11 06:20] LABS: BUN Creatinine Ratio 18.6 (10-20); Calcium 8.1 mg/dl (8.5-10.1); Creatinine Clr Calc Pharmacy 40.9 ml/min; Est GFR (African American) 66.4 ml/min; Est GFR (Non-African American) 57.3 ml/min; Potassium 3.9 mmol/L (3.5-5.1)
[2021-12-11 07:16] LABS: Platelet Count 9 K/uL (130-400)
[2021-12-11 07:17] LABS: Hematocrit (blood only) 26.1 % (37-47); Hemoglobin 8.3 g/dL (12.0-16.0); Mean Corpuscular Hemoglobin 26.9 pg (25-34); Mean Corpuscular Hgb Conc 31.8 g/dL (32-36); Mean Corpuscular Volume 84.5 fL (80-100); Nucleated RBC # (auto) 0.03 K/uL (0-0); Nucleated RBC % (auto) 4.7 %; RDW Coefficient of Variation 16.7 % (11.5-14.5); RDW Standard Deviation 51.1 fL (36.4-46.3); Red Blood Count 3.09 M/uL (4.2-5.4); White Blood Count 0.64 K/uL (4.8-10.8)
[2021-12-11 07:18] LABS: Platelet Estimate SIGNIFIC DECREASED (Normal); Poikilocytosis Present
[2021-12-11 07:21] LABS: ALC (manual) 0.42 K/uL (1.2-3.4); ANC (manual) 0.17 K/uL (1.4-6.5); Basophils # (manual) 0.01 K/uL (0-0.2); Eosinophils # (manual) 0.01 K/uL (0-0.5); Lymphocytes # (manual) 0.42 K/uL (1.2-3.4); Monocytes # (manual) 0.03 K/uL (0.11-0.59); Neutrophils # (manual) 0.17 K/uL (1.4-6.5)
[2021-12-11] MEDS: ACYCLOVIR 400 MG TAB PO SCH ×2 (08:51→22:56)
[2021-12-11] MEDS: VANCOMYCIN HCL 125 MG/2.5ML SOLN PO SCH (08:51)
[2021-12-11] MEDS: METHOCARBAMOL 750 MG TABLET PO PRN ×2 (08:51→22:56)
[2021-12-11] MEDS: FLUTICASONE/VILANTEROL 100/25MCG 14 PUFFS/INHALER INH SCH (08:51)
[2021-12-11] MEDS: FOLIC ACID 1 MG TAB PO SCH (08:52)
[2021-12-11] MEDS: GABAPENTIN 400 MG CAP PO SCH (08:52)
[2021-12-11] MEDS: PANTOprazole 40 MG TAB PO SCH ×2 (08:52→22:56)
[2021-12-11] MEDS: FERROUS SULFATE 325 MG TAB PO SCH (08:52)
[2021-12-11] MEDS: OXYBUTYNIN CHLORIDE XL 5 MG TABCR PO SCH (08:52)
[2021-12-11] MEDS: TOPIRAMATE 100 MG TAB PO SCH ×2 (08:52→22:55)
[2021-12-11] MEDS: MAGNESIUM OXIDE 400 MG TAB PO SCH (08:52)
[2021-12-11] MEDS: METOPROLOL SUCC 25MG EXT REL TAB PO SCH (08:52)
[2021-12-11] MEDS: ADVANCED PROBIOTIC 1250 MG CAPSULE PO SCH (08:52)
[2021-12-11] MEDS: CETIRIZINE HCL 10 MG TABLET PO SCH (08:52)
[2021-12-11] MEDS: FLUCONAZOLE 100 MG TAB PO SCH (08:52)
[2021-12-11] MEDS: RASPBERRY SYRUP 5 ML UDP PO SCH (09:00)
[2021-12-11] MEDS ORDERED: Nursing to Pharmacy Communication SCH (10:45)
[2021-12-11] MEDS: oxyCODONE HCL IR 5 MG TAB (IMMEDIATE RELEASE) PO PRN ×2 (13:42→22:57)
--- NOTE | 2021-12-11 19:55 | Hospitalist Progress Note ---
Date of Service December 11, 2021 Assessment & Plan (1) UTI (urinary tract infection): Plan: History of Hydronephrosis with Ureteral Stent Placement. - Recent history of ureteral stents placed in 07/2021 and 09/2021 (exchanged) - Unfortunately, had associated UTIs since that time-currently with ESBL Klebsiella - Consulted urology about stent exchange - Spoke with urology on 12/05. No further stent exchanges. Recommend that she be evaluated by tertiary care center for stent removal and nephrostomy tubes. Will hold transfer to tertiary care over the next 24 hours, as goals of care are currently being determined by the patient and her family. - Finished Meropenem on 12/06. Had another fever on 12/07 after 24 hours off antibiotics. - Recultured on 12/08, UC negative. Restarted meropenem 12/08/2021, last documented fever of 37.7 degrees C on 12/09 at 17:00. => Plan to start Keflex/doxy for urine ppx at discharge. 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 - Gave Neupogen 480 mcg SQ daily x 3 days-final dose on 11/29 - Gave Procrit 40,000 units x 1 on 11/29 - Received platelets on 11/27, 12/01, 12/02, 12/04, 12/06 - Received 2 units of PRBCs on 11/27 & 2 units on 12/06; 1 unit on 12/09. Plan: Transfuse for RBCs ~7 mg/dL and platelets < 10k or active bleeding. will transfuse platelets as it is below 10k will recheck tomorrow level Hold on further transfusion of platelets unless repeat platelet count remained below 10,000 or patient has active bleeding - patient does have antibodies and requires supply from blood bank in [place] (3) Sepsis: Plan: Sepsis- with recurrent UTI. Resolved but requires ongoing antibiotics for ESBL with Klebsiella pneumonia (4) UGIB (upper gastrointestinal bleed): Plan: Suspected UGIB - History primarily concerning for hematemesis/UGIB based on recent odynophagia, "spitting up blood" (non-projectile), nausea, decreased appetite. But could also be secondary to hemoptysis or epistaxis - Known history of HCV-induced cirrhosis. Last EGD seems to be 10/2019, per Dr. Chavez's PSYCHIATRIC note, which did NOT reveal any esophageal varices; did show Z-line irregularities and esophageal plaques c/w candidiasis - No need for octreotide with no h/o known varices - In setting of significant coagulopathy (INR 2.5, PTT 77.2, Plt 11) -- notably progressed since prior admission , coagulopathy now improved with FFP and Vit K. - Appreciate GI consult--> no urgent EGD given tenuous status and she has stopped bleeding, consider outpt EGD - Initially received PPI gtt but has now been converted to PPI po bid - Tolerating gluten free diet (5) Coagulopathy: Plan: Coagulopathy / Thrombocytopenia - Admission labs concerning for INR 2.5 / PTT 77.2 / PLT 11 in setting of H&H 7.9 on arrival - notably worse from previous. ALso D-dimer 5000 - Most likely etiology secondary to DIC from sepsis, in setting of MDS, liver disease with HCV history, poor nutrition (Vit K deficiency possibility) - S/p 2 units FFP and Vit K and now coags normalized as of 12/04 - Received platelets on 11/27, 12/01, 12/02, 12/03 -> Coags normal on recheck on 12/04. (6) Acute respiratory failure with hypoxia: Plan: Acute Hypoxic Respiratory Failure. Upon arrival here, patient did not have O2 requirement -- however, shortly into her course, did begin desaturating into 70- 80s requiring NC/OxyMask. - Secondary to sepsis and does have recent COVID infection, COPD, PNA, however I do not feel that this admission is related to Covid-19 at all. Hypoxia is now resolved and patient is oxygenating well on room air. (7) AURORA (acute kidney injury): Plan: Acute Kidney Injury - Has history of CKD with creatinine baseline around 0.7 - 0.9. Cr at baseline as of 12/04. - With fluids and blood products, returned to baseline. - Follow serial labs (8) COVID-19: Plan: COVID-19 - Patient recently tested positive again for COVID-19, first time at the end of October. - During last hospitalization, was not hypoxic and therefore was not started on dexamethasone / remdesivir. - No steroids needed as her hypoxia is not from COVID. - As per infection control on 12/02, she can come off isolation precautions -Oxygenating well on room air. 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 Patient currently is transfusion dependent. The patient has discussed her prognosis with multiple providers but does not wa nt to pursue hospice care at this time. Discussed with her daughter and son via telephone call today, will speak with their mother this afternoon. Recommend to hold tertiary care transfer until goals of care have been determined. At this time we are only providing temporizing conditions with transfusions & IV abx. (11) Migraine: Plan: - Continue Topamax, Fioricet as needed (12) Celiac disease: Plan: Continue gluten-free diet (13) Prothrombin [id number] mutation: Plan: With a history of VTE, no longer on anticoagulation given severe pancytopenia and history of bleeding. (14) Urge and stress incontinence: Plan: - Continue oxybutynin (15) COPD (chronic obstructive pulmonary disease): Plan: With a history of smoking and lung cancer. - Nebs as needed (16) Hx of Clostridium difficile infection: Plan: History of C. difficile Infection-with 4 loose stools on 12/03, but on 12/04 & 12/05, she has firmed stools. - On chronic vancomycin suppressive therapy twice weekly - Increased vancomycin 125 Mg p.o. once daily while on antibiotics (17) Cirrhosis of liver: Plan: - Noted with a history of hep C that has been treated (18) SACHA (obstructive sleep apnea): Plan: Obstructive Sleep Apnea - Utilizes CPAP qHS -- utilize while here (19) Electrolyte imbalance: Plan: Monitor and replete prn. Plan: Disposition: Transfer to tertiary care vs. home with hospice pending goals of care. Admission and Anticipated Discharge Date Admission Date: November 26, 2021 Subjective Patient reports no new symptoms. Review of Systems Review of Systems: All systems reviewed & are unremarkable except as noted in HPI & below Physical Exam Physical Exam: Constitutional: Extremely frail appearing elderly female. Respiratory: Lung sounds were generally clear bilaterally. Cardiovascular: Heart was RRR without significant murmur, gallops or rubs. Gastrointestinal: No palpable hepatic or splenomegaly. The abdomen was soft with normal bowel sounds. Musculoskeletal System: The musculoskeletal system seemed concordant with age. Skin: The skin was negative for jaundice. Extremities: Negative for edema or erythema Results & Data Results & Data ([facility]) Vital Signs (Past 12 Hours) Vital Signs Temp Pulse Resp BP Pulse Ox 12/11/21 15:37 36.7 C 84 17 94/52 L 90 PG Care Time/CCT Total # of Minutes Spent Total Time Spent with Patient: Total time spent is greater than 50% in coordination of care (as documented) at patient's floor/unit and/or counseling patient: Coding Level of Care Code 55402 Subseq Hosp Care Lvl 2 Diagnoses UTI (urinary tract infection) N39.0 Pancytopenia D61.818 Sepsis A41.9 UGIB (upper gastrointestinal bleed) K92.2 Coagulopathy D68.9 Acute respiratory failure with hypoxia J96.01 AURORA (acute kidney injury) N17.9 COVID-19 U07.1 Chronic kidney disease N18.9 MDS (myelodysplastic syndrome) D46.9 Migraine G43.909 Celiac disease K90.0 Prothrombin [id number] mutation D68.52 Urge and stress incontinence N39.46 COPD (chronic obstructive pulmonary disease) J44.9 Hx of Clostridium difficile infection Z86.19 Cirrhosis of liver K74.60 SACHA (obstructive sleep apnea) G47.33 Electrolyte imbalance E87.8
[2021-12-11] MEDS: diphenhydrAMINE Capsule 25 MG CAP PO PRN (21:18)
[2021-12-11] MEDS: ACETAMINOPHEN 500 MG TAB PO PRN (21:18)
[2021-12-11] MEDS: MIRABEGRON ER 25 MG TAB PO SCH (22:55)
[2021-12-11] MEDS: QUEtiapine FUMARATE 25 MG TABLET PO SCH (22:55)
[2021-12-11] MEDS: clonazePAM 0.5 MG TAB PO SCH (22:56)
[2021-12-11] MEDS: SERTRALINE HCL 50 MG TABLET PO SCH (22:56)
[2021-12-12] MEDS: MEROPENEM 500 MG in SYRINGE 0 ML IV SCH ×3 (05:57→21:50)
[2021-12-12 06:50] LABS: Hematocrit (blood only) 24.2 % (37-47); Hemoglobin 7.9 g/dL (12.0-16.0); Mean Corpuscular Hemoglobin 27.5 pg (25-34); Mean Corpuscular Volume 84.3 fL (80-100); Platelet Count 6 K/uL (130-400); RDW Standard Deviation 51.6 fL (36.4-46.3); Red Blood Count 2.87 M/uL (4.2-5.4); White Blood Count 0.75 K/uL (4.8-10.8)
[2021-12-12 07:00] LABS: BUN Creatinine Ratio 18.1 (10-20); Creatinine Clr Calc Pharmacy 39.8 ml/min; Est GFR (African American) 64.1 ml/min; Est GFR (Non-African American) 55.3 ml/min; Potassium 3.6 mmol/L (3.5-5.1)
[2021-12-12 07:01] LABS: Lymphocytes % (auto) 66.7 %; Mean Corpuscular Hgb Conc 32.6 g/dL (32-36); Monocytes # (auto) 0.12 K/uL (0.11-0.59); Neutrophils # (auto) 0.13 K/uL (1.4-6.5); Neutrophils % (auto) 17.3 %; Platelet Estimate SIGNIFIC DECREASED (Normal); Tear Drop Cells 1+
[2021-12-12] MEDS: oxyCODONE HCL IR 5 MG TAB (IMMEDIATE RELEASE) PO PRN ×2 (08:16→21:54)
[2021-12-12] MEDS: RASPBERRY SYRUP 5 ML UDP PO SCH (08:17)
[2021-12-12] MEDS: CETIRIZINE HCL 10 MG TABLET PO SCH (08:17)
[2021-12-12] MEDS: PANTOprazole 40 MG TAB PO SCH ×2 (08:17→21:48)
[2021-12-12] MEDS: ACYCLOVIR 400 MG TAB PO SCH ×2 (08:17→21:48)
[2021-12-12] MEDS: MAGNESIUM OXIDE 400 MG TAB PO SCH (08:18)
[2021-12-12] MEDS: OXYBUTYNIN CHLORIDE XL 5 MG TABCR PO SCH (08:18)
[2021-12-12] MEDS: METOPROLOL SUCC 25MG EXT REL TAB PO SCH (08:18)
[2021-12-12] MEDS: FERROUS SULFATE 325 MG TAB PO SCH (08:18)
[2021-12-12] MEDS: ADVANCED PROBIOTIC 1250 MG CAPSULE PO SCH (08:18)
[2021-12-12] MEDS: GABAPENTIN 400 MG CAP PO SCH (08:18)
[2021-12-12] MEDS: FOLIC ACID 1 MG TAB PO SCH (08:18)
[2021-12-12] MEDS: FLUCONAZOLE 100 MG TAB PO SCH (08:18)
[2021-12-12] MEDS: VANCOMYCIN HCL 125 MG/2.5ML SOLN PO SCH (08:19)
[2021-12-12] MEDS: FLUTICASONE/VILANTEROL 100/25MCG 14 PUFFS/INHALER INH SCH (08:19)
[2021-12-12] MEDS: TOPIRAMATE 100 MG TAB PO SCH ×2 (08:19→21:49)
[2021-12-12] MEDS: PHENAZOPYRIDINE HCL 200 MG TAB PO PRN (08:26)
[2021-12-12] MEDS: ACETAMINOPHEN 500 MG TAB PO PRN (10:29)
[2021-12-12] MEDS: diphenhydrAMINE Capsule 25 MG CAP PO PRN (10:29)
--- NOTE | 2021-12-12 20:55 | Hospitalist Progress Note ---
Date of Service December 12, 2021 Assessment & Plan (1) UTI (urinary tract infection): Plan: History of Hydronephrosis with Ureteral Stent Placement. - Recent history of ureteral stents placed in 07/2021 and 09/2021 (exchanged) - Unfortunately, had associated UTIs since that time-currently with ESBL Klebsiella - Consulted urology about stent exchange - Spoke with urology on 12/05. No further stent exchanges. Recommend that she be evaluated by tertiary care center for stent removal and nephrostomy tubes. Will hold transfer to tertiary care over the next 24 hours, as goals of care are currently being determined by the patient and her family. - Finished Meropenem on 12/06. Had another fever on 12/07 after 24 hours off antibiotics. - Recultured on 12/08, UC negative. Restarted meropenem 12/08/2021, last documented fever of 37.7 degrees C on 12/09 at 17:00. => Plan to start Keflex/doxy for urine ppx at discharge. 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 - Gave Neupogen 480 mcg SQ daily x 3 days-final dose on 11/29 - Gave Procrit 40,000 units x 1 on 11/29 - Received platelets on 11/27, 12/01, 12/02, 12/04, 12/06 - Received 2 units of PRBCs on 11/27 & 2 units on 12/06; 1 unit on 12/09. Plan: Transfuse for RBCs ~7 mg/dL and platelets < 10k or active bleeding. platelets remain below 10. will transfuse again. Hold on further transfusion of platelets unless repeat platelet count remained below 10,000 or patient has active bleeding - patient does have antibodies and requires supply from blood bank in [place] Patient is still considering tertiary center, however, patient appears to be terminally ill. will call tertiary facilities for possible transfer. (3) Sepsis: Plan: Sepsis- with recurrent UTI. Resolved but requires ongoing antibiotics for ESBL with Klebsiella pneumonia (4) UGIB (upper gastrointestinal bleed): Plan: Suspected UGIB - History primarily concerning for hematemesis/UGIB based on recent odynophagia, "spitting up blood" (non-projectile), nausea, decreased appetite. But could also be secondary to hemoptysis or epistaxis - Known history of HCV-induced cirrhosis. Last EGD seems to be 10/2019, per Dr. Chavez's PSYCHIATRIC note, which did NOT reveal any esophageal varices; did show Z-line irregularities and esophageal plaques c/w candidiasis - No need for octreotide with no h/o known varices - In setting of significant coagulopathy (INR 2.5, PTT 77.2, Plt 11) -- notably progressed since prior admission , coagulopathy now improved with FFP and Vit K. - Appreciate GI consult--> no urgent EGD given tenuous status and she has stopped bleeding, consider outpt EGD - Initially received PPI gtt but has now been converted to PPI po bid - Tolerating gluten free diet (5) Coagulopathy: Plan: Coagulopathy / Thrombocytopenia - Admission labs concerning for INR 2.5 / PTT 77.2 / PLT 11 in setting of H&H 7.9 on arrival - notably worse from previous. ALso D-dimer 5000 - Most likely etiology secondary to DIC from sepsis, in setting of MDS, liver disease with HCV history, poor nutrition (Vit K deficiency possibility) - S/p 2 units FFP and Vit K and now coags normalized as of 12/04 - Received platelets on 11/27, 12/01, 12/02, 12/03 -> Coags normal on recheck on 12/04. (6) Acute respiratory failure with hypoxia: Plan: Acute Hypoxic Respiratory Failure. Upon arrival here, patient did not have O2 requirement -- however, shortly into her course, did begin desaturating into 70- 80s requiring NC/OxyMask. - Secondary to sepsis and does have recent COVID infection, COPD, PNA, however I do not feel that this admission is related to Covid-19 at all. Hypoxia is now resolved and patient is oxygenating well on room air. (7) AURORA (acute kidney injury): Plan: Acute Kidney Injury - Has history of CKD with creatinine baseline around 0.7 - 0.9. Cr at baseline as of 12/04. - With fluids and blood products, returned to baseline. - Follow serial labs (8) COVID-19: Plan: COVID-19 - Patient recently tested positive again for COVID-19, first time at the end of October. - During last hospitalization, was not hypoxic and therefore was not started on dexamethasone / remdesivir. - No steroids needed as her hypoxia is not from COVID. - As per infection control on 12/02, she can come off isolation precautions -Oxygenating well on room air. 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 Patient currently is transfusion dependent. The patient has discussed her prognosis with multiple providers but does not want to pursue hospice care at this time. Discussed with her daughter and son via telephone call today, will speak with their mother this afternoon. Recommend to hold tertiary care transfer until goals of care have been determined. At this time we are only providing temporizing conditions with transfusions & IV abx. 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 (14) Urge and stress incontinence: Plan: - Continue oxybutynin (15) COPD (chronic obstructive pulmonary disease): Plan: With a history of smoking and lung cancer. - Nebs as needed (16) Hx of Clostridium difficile infection: Plan: History of C. difficile Infection-with 4 loose stools on 12/03, but on 12/04 & 12/05, she has firmed stools. - On chronic vancomycin suppressive therapy twice weekly - Increased vancomycin 125 Mg p.o. once daily while on antibiotics (17) Cirrhosis of liver: Plan: - Noted with a history of hep C that has been treated (18) SACHA (obstructive sleep apnea): Plan: Obstructive Sleep Apnea - Utilizes CPAP qHS -- utilize while here (19) Electrolyte imbalance: Plan: Monitor and replete prn. Plan: Disposition: Transfer to tertiary care vs. home with hospice pending goals of care. Admission and Anticipated Discharge Date Admission Date: November 26, 2021 Subjective Patient reports no new symptoms. Review of Systems Review of Systems: All systems reviewed & are unremarkable except as noted in HPI & below Physical Exam Physical Exam: Constitutional: Extremely frail appearing elderly female. Respiratory: Lung sounds were generally clear bilaterally. Cardiovascular: Heart was RRR without significant murmur, gallops or rubs. Gastrointestinal: No palpable hepatic or splenomegaly. The abdomen was soft with normal bowel sounds. Musculoskeletal System: The musculoskeletal system seemed concordant with age. Skin: The skin was negative for jaundice. Extremities: Negative for edema or erythema Results & Data Results & Data ([facility]) Vital Signs (Past 12 Hours) Vital Signs Temp Pulse Pulse Resp BP BP Pulse Ox 12/12/21 15:20 36.3 C L 77 18 96/57 L 96 12/12/21 15:10 36.6 C 76 16 99/58 L 95 12/12/21 14:40 36.3 C L 77 18 96/57 L 96 12/12/21 13:40 36.6 C 72 18 91/50 L 93 12/12/21 12:40 36.5 C 79 18 90/45 L 93 12/12/21 12:10 36.6 C 82 18 89/46 L 95 12/12/21 11:40 36.6 C 87 18 92/46 L 95 12/12/21 11:23 36.7 C 83 18 97/55 L 93 12/12/21 11:08 36.9 C 78 18 101/55 L 98 PG Care Time/CCT Total # of Minutes Spent Total Time Spent with Patient: Total time spent is greater than 50% in coordination of care (as documented) at patient's floor/unit and/or counseling patient: Coding Level of Care Code 62585 Subseq Hosp Care Lvl 3 Diagnoses UTI (urinary tract infection) N39.0 Pancytopenia D61.818 Sepsis A41.9 UGIB (upper gastrointestinal bleed) K92.2 Coagulopathy D68.9 Acute respiratory failure with hypoxia J96.01 AURORA (acute kidney injury) N17.9 COVID-19 U07.1 Chronic kidney disease N18.9 MDS (myelodysplastic syndrome) D46.9 Migraine G43.909 Celiac disease K90.0 Prothrombin [id number] mutation D68.52 Urge and stress incontinence N39.46 COPD (chronic obstructive pulmonary disease) J44.9 Hx of Clostridium difficile infection Z86.19 Cirrhosis of liver K74.60 SACHA (obstructive sleep apnea) G47.33 Electrolyte imbalance E87.8 Time Spent (min) 35
[2021-12-12] MEDS: clonazePAM 0.5 MG TAB PO SCH (21:48)
[2021-12-12] MEDS: QUEtiapine FUMARATE 25 MG TABLET PO SCH (21:48)
[2021-12-12] MEDS: MIRABEGRON ER 25 MG TAB PO SCH (21:49)
[2021-12-12] MEDS: SERTRALINE HCL 50 MG TABLET PO SCH (21:49)
[2021-12-13] MEDS: MEROPENEM 500 MG in SYRINGE 0 ML IV SCH ×3 (05:17→22:30)
[2021-12-13 06:53] LABS: Hematocrit (blood only) 22.2 % (37-47); Hemoglobin 7.3 g/dL (12.0-16.0); Mean Corpuscular Hemoglobin 27.4 pg (25-34); Mean Corpuscular Volume 83.5 fL (80-100); Platelet Count 8 K/uL (130-400); RDW Coefficient of Variation 16.9 % (11.5-14.5); RDW Standard Deviation 50.7 fL (36.4-46.3); Red Blood Count 2.66 M/uL (4.2-5.4); White Blood Count 0.64 K/uL (4.8-10.8)
[2021-12-13 07:09] LABS: BUN Creatinine Ratio 17.2 (10-20); Calcium 7.9 mg/dl (8.5-10.1); Creatinine Clr Calc Pharmacy 42.2 ml/min; Est GFR (African American) 68.8 ml/min; Est GFR (Non-African American) 59.4 ml/min; Potassium 3.4 mmol/L (3.5-5.1)
[2021-12-13 07:20] LABS: Mean Corpuscular Hgb Conc 32.9 g/dL (32-36); Nucleated RBC # (auto) 0.02 K/uL (0-0); Nucleated RBC % (auto) 3.9 %
[2021-12-13 07:22] LABS: Giant Platelets 1+
[2021-12-13 07:39] LABS: ALC (manual) 0.34 K/uL (1.2-3.4); ANC (manual) 0.14 K/uL (1.4-6.5); Blast # (manual) 0.02 K/uL (0-0); Blast Cells % (manual) 3.6 %; Lymphocytes # (manual) 0.34 K/uL (1.2-3.4); Lymphocytes % (manual) 53.6 %; Monocytes # (manual) 0.14 K/uL (0.11-0.59); Monocytes % (manual) 21.4 %; Neutrophils # (manual) 0.14 K/uL (1.4-6.5); Neutrophils % (manual) 21.4 %
[2021-12-13] MEDS: FOLIC ACID 1 MG TAB PO SCH (09:50)
[2021-12-13] MEDS: FLUCONAZOLE 100 MG TAB PO SCH (09:50)
[2021-12-13] MEDS: FERROUS SULFATE 325 MG TAB PO SCH (09:50)
[2021-12-13] MEDS: ADVANCED PROBIOTIC 1250 MG CAPSULE PO SCH (09:50)
[2021-12-13] MEDS: ACYCLOVIR 400 MG TAB PO SCH ×2 (09:50→21:32)
[2021-12-13] MEDS: PANTOprazole 40 MG TAB PO SCH ×2 (09:50→22:37)
[2021-12-13] MEDS: MAGNESIUM OXIDE 400 MG TAB PO SCH (09:50)
[2021-12-13] MEDS: TOPIRAMATE 100 MG TAB PO SCH ×2 (09:50→22:37)
[2021-12-13] MEDS: CETIRIZINE HCL 10 MG TABLET PO SCH (09:50)
[2021-12-13] MEDS: GABAPENTIN 400 MG CAP PO SCH (09:50)
[2021-12-13] MEDS: OXYBUTYNIN CHLORIDE XL 5 MG TABCR PO SCH (09:50)
[2021-12-13] MEDS: METOPROLOL SUCC 25MG EXT REL TAB PO SCH (09:51)
[2021-12-13] MEDS: FLUTICASONE/VILANTEROL 100/25MCG 14 PUFFS/INHALER INH SCH (09:51)
[2021-12-13] MEDS: METHOCARBAMOL 750 MG TABLET PO PRN (09:55)
[2021-12-13] MEDS: VANCOMYCIN HCL 125 MG/2.5ML SOLN PO SCH (10:08)
[2021-12-13] MEDS: RASPBERRY SYRUP 5 ML UDP PO SCH (10:08)
[2021-12-13] MEDS: oxyCODONE HCL IR 5 MG TAB (IMMEDIATE RELEASE) PO PRN ×2 (10:08→15:17)
[2021-12-13] MEDS: ONDANSETRON INJ 2 MG/ML 2 ML VIAL IV PRN (18:08)
--- NOTE | 2021-12-13 20:46 | Hospitalist Progress Note ---
Date of Service December 13, 2021 Assessment & Plan (1) UTI (urinary tract infection): Plan: History of Hydronephrosis with Ureteral Stent Placement. - Recent history of ureteral stents placed in 07/2021 and 09/2021 (exchanged) - Unfortunately, had associated UTIs since that time-currently with ESBL Klebsiella - Consulted urology about stent exchange - Spoke with urology on 12/05. No further stent exchanges. Recommend that she be evaluated by tertiary care center for stent removal and nephrostomy tubes. Will hold transfer to tertiary care over the next 24 hours, as goals of care are currently being determined by the patient and her family. - Finished Meropenem on 12/06. Had another fever on 12/07 after 24 hours off antibiotics. - Recultured on 12/08, UC negative. Restarted meropenem 12/08/2021, last documented fever of 37.7 degrees C on 12/09 at 17:00. => Plan to start Keflex/doxy for urine ppx at discharge. Called [facility], they did not accept transfer for nephrostomy tube placement. discussed with nurse navigator, will obtain heme follow up. 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 - Gave Neupogen 480 mcg SQ daily x 3 days-final dose on 11/29 - Gave Procrit 40,000 units x 1 on 11/29 - Received platelets on 11/27, 12/01, 12/02, 12/04, 12/06 - Received 2 units of PRBCs on 11/27 & 2 units on 12/06; 1 unit on 12/09. Plan: Transfuse for RBCs ~7 mg/dL and platelets < 10k or active bleeding. platelets remain below 10. will transfuse again. Hold on further transfusion of platelets unless repeat platelet count remained below 10,000 or patient has active bleeding - patient does have antibodies and requires supply from blood bank in [place] Patient is still considering tertiary center, however, patient appears to be terminally ill. will call tertiary facilities for possible transfer. (3) Sepsis: Plan: Sepsis- with recurrent UTI. Resolved but requires ongoing antibiotics for ESBL with Klebsiella pneumonia (4) UGIB (upper gastrointestinal bleed): Plan: Suspected UGIB - History primarily concerning for hematemesis/UGIB based on recent odynophagia, "spitting up blood" (non-projectile), nausea, decreased appetite. But could also be secondary to hemoptysis or epistaxis - Known history of HCV-induced cirrhosis. Last EGD seems to be 10/2019, per Dr. Chavez's [facility] note, which did NOT reveal any esophageal varices; did show Z-line irregularities and esophageal plaques c/w candidiasis - No need for octreotide with no h/o known varices - In setting of significant coagulopathy (INR 2.5, PTT 77.2, Plt 11) -- notably progressed since prior admission , coagulopathy now improved with FFP and Vit K. - Appreciate GI consult--> no urgent EGD given tenuous status and she has stopped bleeding, consider outpt EGD - Initially received PPI gtt but has now been converted to PPI po bid - Tolerating gluten free diet (5) Coagulopathy: Plan: Coagulopathy / Thrombocytopenia - Admission labs concerning for INR 2.5 / PTT 77.2 / PLT 11 in setting of H&H 7.9 on arrival - notably worse from previous. ALso D-dimer 5000 - Most likely etiology secondary to DIC from sepsis, in setting of MDS, liver disease with HCV history, poor nutrition (Vit K deficiency possibility) - S/p 2 units FFP and Vit K and now coags normalized as of 12/04 - Received platelets on 11/27, 12/01, 12/02, 12/03 -> Coags normal on recheck on 12/04. (6) Acute respiratory failure with hypoxia: Plan: Acute Hypoxic Respiratory Failure. Upon arrival here, patient did not have O2 requirement -- however, shortly into her course, did begin desaturating into 70- 80s requiring NC/OxyMask. - Secondary to sepsis and does have recent COVID infection, COPD, PNA, however I do not feel that this admission is related to Covid-19 at all. Hypoxia is now resolved and patient is oxygenating well on room air. (7) AURORA (acute kidney injury): Plan: Acute Kidney Injury - Has history of CKD with creatinine baseline around 0.7 - 0.9. Cr at baseline as of 12/04. - With fluids and blood products, returned to baseline. - Follow serial labs (8) COVID-19: Plan: COVID-19 - Patient recently tested positive again for COVID-19, first time at the end of October. - During last hospitalization, was not hypoxic and therefore was not started on dexamethasone / remdesivir. - No steroids needed as her hypoxia is not from COVID. - As per infection control on 12/02, she can come off isolation precautions -Oxygenating well on room air. 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 Patient currently is transfusion dependent. The patient has discussed her prognosis with multiple providers but does not want to pursue hospice care at this time. Discussed with her daughter and son via telephone call today, will speak with their mother this afternoon. Recommend to hold tertiary care transfer until goals of care have been determined. At this time we are only providing temporizing conditions with transfusions & IV abx. (11) Migraine: Plan: - Continue Topamax, Fioricet as needed (12) Celiac disease: Plan: Continue gluten-free diet (13) Prothrombin [id number] mutation: Plan: With a history of VTE, no longer on anticoagulation given severe pancytopenia and history of bleeding. (14) Urge and stress incontinence: Plan: - Continue oxybutynin (15) COPD (chronic obstructive pulmonary disease): Plan: With a history of smoking and lung cancer. - Nebs as needed (16) Hx of Clostridium difficile infection: Plan: History of C. difficile Infection-with 4 loose stools on 12/03, but on 12/04 & 12/05, she has firmed stools. - On chronic vancomycin suppressive therapy twice weekly - Increased vancomycin 125 Mg p.o. once daily while on antibiotics (17) Cirrhosis of liver: Plan: - Noted with a history of hep C that has been treated (18) SACHA (obstructive sleep apnea): Plan: Obstructive Sleep Apnea - Utilizes CPAP qHS -- utilize while here (19) Electrolyte imbalance: Plan: Monitor and replete prn. Plan: Disposition: Transfer to tertiary care vs. home with hospice pending goals of care. Admission and Anticipated Discharge Date Admission Date: November 26, 2021 Subjective Patient reports no new complaints. Review of Systems Review of Systems: All systems reviewed & are unremarkable except as noted in HPI & below Physical Exam Physical Exam: Constitutional: Extremely frail appearing elderly female. Respiratory: Lung sounds were generally clear bilaterally. Cardiovascular: Heart was RRR without significant murmur, gallops or rubs. Gastrointestinal: No palpable hepatic or splenomegaly. The abdomen was soft with normal bowel sounds. Musculoskeletal System: The musculoskeletal system seemed concordant with age. Skin: The skin was negative for jaundice. Extremities: Negative for edema or erythema Results & Data Results & Data ([facility]) Vital Signs (Past 12 Hours) Vital Signs Temp Pulse Resp BP 12/13/21 16:44 36.9 C 101 H 18 110/61 PG Care Time/CCT Total # of Minutes Spent Total Time Spent with Patient: Total time spent is greater than 50% in coordination of care (as documented) at patient's floor/unit and/or counseling patient: Coding Level of Care Code 26024 Subseq Hosp Care Lvl 3 Diagnoses UTI (urinary tract infection) N39.0 Pancytopenia D61.818 Sepsis A41.9 UGIB (upper gastrointestinal bleed) K92.2 Coagulopathy D68.9 Acute respiratory failure with hypoxia J96.01 AURORA (acute kidney injury) N17.9 COVID-19 U07.1 Chronic kidney disease N18.9 MDS (myelodysplastic syndrome) D46.9 Migraine G43.909 Celiac disease K90.0 Prothrombin [id number] mutation D68.52 Urge and stress incontinence N39.46 COPD (chronic obstructive pulmonary disease) J44.9 Hx of Clostridium difficile infection Z86.19 Cirrhosis of liver K74.60 SACHA (obstructive sleep apnea) G47.33 Electrolyte imbalance E87.8 Time Spent (min) 35
[2021-12-13] MEDS: diphenhydrAMINE Capsule 25 MG CAP PO PRN (22:37)
[2021-12-13] MEDS: MIRABEGRON ER 25 MG TAB PO SCH (22:37)
[2021-12-13] MEDS: SERTRALINE HCL 50 MG TABLET PO SCH (22:37)
[2021-12-13] MEDS: QUEtiapine FUMARATE 25 MG TABLET PO SCH (22:37)
[2021-12-13] MEDS: ACETAMINOPHEN 500 MG TAB PO PRN (22:37)
[2021-12-13] MEDS: clonazePAM 0.5 MG TAB PO SCH (22:43)
[2021-12-14] MEDS: MEROPENEM 500 MG in SYRINGE 0 ML IV SCH ×3 (05:25→22:15)
[2021-12-14] MEDS: oxyCODONE HCL IR 5 MG TAB (IMMEDIATE RELEASE) PO PRN ×2 (08:53→16:22)
[2021-12-14] MEDS: RASPBERRY SYRUP 5 ML UDP PO SCH (09:42)
[2021-12-14] MEDS: FOLIC ACID 1 MG TAB PO SCH (09:43)
[2021-12-14] MEDS: ADVANCED PROBIOTIC 1250 MG CAPSULE PO SCH (09:44)
[2021-12-14] MEDS: FLUCONAZOLE 100 MG TAB PO SCH (09:45)
[2021-12-14] MEDS: MAGNESIUM OXIDE 400 MG TAB PO SCH (09:45)
[2021-12-14] MEDS: VANCOMYCIN HCL 125 MG/2.5ML SOLN PO SCH (09:48)
[2021-12-14] MEDS: TOPIRAMATE 100 MG TAB PO SCH ×2 (09:49→22:14)
[2021-12-14] MEDS: FERROUS SULFATE 325 MG TAB PO SCH (09:49)
[2021-12-14] MEDS: GABAPENTIN 400 MG CAP PO SCH (09:50)
[2021-12-14] MEDS: CETIRIZINE HCL 10 MG TABLET PO SCH (09:50)
[2021-12-14] MEDS: OXYBUTYNIN CHLORIDE XL 5 MG TABCR PO SCH (09:51)
[2021-12-14] MEDS: FLUTICASONE/VILANTEROL 100/25MCG 14 PUFFS/INHALER INH SCH (09:51)
[2021-12-14] MEDS: PANTOprazole 40 MG TAB PO SCH ×2 (09:52→22:14)
[2021-12-14] MEDS: ACYCLOVIR 400 MG TAB PO SCH ×2 (09:52→22:14)
[2021-12-14] MEDS: METHOCARBAMOL 750 MG TABLET PO PRN ×2 (09:54→22:19)
--- NOTE | 2021-12-14 10:29 | Urology Progress Note ---
Date of Service December 14, 2021 Assessment & Plan (1) Obstructive uropathy: (2) S/P ureteral stent placement: Plan: 66yo F with an extensive past medical history admitted with significant coagulopathy and thrombocytopenia on arrival and found to have GI bleed, Covid positive, and sepsis. Urology initially consulted for sepsis/UTI in the setting of chronic indwelling bilateral ureteral stents. However, given her multiple acute issues including Covid-19 infection on admission, no intervention was indicated at that time. Discussion of proceeding with stent exchange when medically stable verses nephrostomy tubes was considered. - Pt with chronic b/l hydronephrosis managed with chronic b/l ureteral stents - Last exchanged 09/26/[address] Cervantes. - Pt approaching timeframe for regularly scheduled stent exchange. Multiple discussions between urology/Dr. Cervantes and hospital team. Pt was not accepted for transfer for nephrostomy tube placement. - Hospital team feels she is medically optimized for stent exchange at this time. - She is afebrile, Labs reviewed- Wbc 0.76, Hgb 7.7, Creatinine 1.05 - Continue to trend. - UCx 2 with Klebsiella ESBL - Treated with course of IV Meropenem. Repeat UCx 12/08 negative. Pt restarted on Meropenem 12/08. - Blood cultures 11/27 and repeat 12/07 negative. - Plan of care reviewed with Dr. Cervantes. - Given there are no acute changes in patient status, will plan to proceed to OR tomorrow for cystoscopy, bilateral retrograde pyelogram, bilateral ureteral stent exchange. - Risks and benefits to be reviewed with patient by Dr. Cervantes. OR notified. - Recommend continue IV Meropenem and will initiate IV Caspofungin in place of oral fluconazole. - Plan for NPO at midnight. - Continue supportive care and close monitoring. - Discussed plan with hospital team. - Patient agreeable to plan, all questions were answered. - Will continue to follow. Admission and Anticipated Discharge Date Admission Date: November 26, 2021 Subjective Pt examined at bedside. Awake, resting in bed on arrival. No acute distress. No fevers. Does report chronic back/abdominal pain. Reports she is voiding spontaneously without difficulty. No hematuria. Some mild dysuria, however reports this as baseline. Denies nausea or vomiting. Offers no additional complaints at time of exam. Review of Systems Constitutional: as per Subjective / HPI Gastrointestinal: as per Subjective / HPI Genitourinary: as per Subjective / HPI Physical Exam Constitutional: + thin and + frail appearing; no acute distress Respiratory: no respiratory distress and no labored breathing Gastrointestinal (Abdomen): Inspection/Auscultation: abdomen normal to inspection Skin: Warm and dry. No visible rashes to exposed skin areas. Neurologic: moves all extremities and awake Psychiatric: Orientation: alert, oriented x 3 and cooperative Genitourinary: no CVA tenderness Results & Data ([facility]) Vital Signs (Past 12 Hours) Vital Signs Temp Pulse Pulse Pulse Resp BP BP 12/14/21 08:07 36.7 C 92 H 16 114/67 12/14/21 03:33 36.8 C 73 16 96/53 L 12/14/21 03:00 36.6 C 76 16 99/58 L 12/14/21 02:30 36.6 C 76 18 97/57 L 12/14/21 02:00 36.4 C L 81 18 96/56 L 12/14/21 01:45 36.5 C 83 18 96/59 L 12/14/21 01:36 36.5 C 84 18 90/50 L 12/14/21 01:17 36.5 C 84 18 90/50 L 12/14/21 01:15 36.5 C 84 18 90/50 L 12/14/21 00:55 37.0 C 93 H 18 90/50 L 12/14/21 00:35 36.5 C 84 18 90/50 L 12/14/21 00:05 37.1 C 88 16 88/43 L 12/13/21 23:35 37.1 C 91 H 18 89/48 L 12/13/21 23:05 36.7 C 96 H 16 90/52 L 12/13/21 22:50 37.1 C 103 H 20 100/61 12/13/21 22:32 37.2 C 112 H 20 111/57 L Pulse Ox 12/14/21 08:07 92 12/14/21 03:33 97 12/14/21 03:00 97 12/14/21 02:30 98 12/14/21 02:00 95 12/14/21 01:45 96 12/14/21 01:36 96 12/14/21 01:17 96 12/14/21 01:15 96 12/14/21 00:55 96 12/14/21 00:35 96 12/14/21 00:05 93 12/13/21 23:35 96 12/13/21 23:05 94 12/13/21 22:50 96 12/13/21 22:32 92 PG Care Time/CCT Total # of Minutes Spent Total Time Spent with Patient: Total time spent is greater than 50% in coordination of care (as documented) at patient's floor/unit and/or counseling patient: Coding Level of Care Code 97504 Subseq Hosp Care Lvl 2 Diagnoses S/P ureteral stent placement Z96.0 Obstructive uropathy N13.9
[2021-12-14] MEDS: METOPROLOL SUCC 25MG EXT REL TAB PO SCH (10:36)
--- NOTE | 2021-12-14 14:34 | Anesthesiology Consultation ---
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 Surgery Operation Date: 12/15/21 11:55 Proposed Procedures p Cystoscopy Bilateral Retrograde Pyelograms and Stent Exchange - Luis Cervantes, Height/Weight Height: 5 ft 1 in Weight: 50.5 kg Allergies Allergy/AdvReac Type Severity Reaction Status Date / Time bee venom protein (honey bee) Allergy Severe Difficulty Verified 11/26/21 21:14 Breathing adhesive Allergy Intermediate Red torn Verified 11/26/21 21:14 skin Iodinated Contrast Media Allergy Intermediate Hives Verified 11/26/21 21:14 iodine Allergy Intermediate Hives Verified 11/26/21 21:14 levofloxacin Allergy Intermediate numbness/we Verified 11/26/21 21:14 akness pregabalin Allergy Intermediate fever?/?cher Verified 11/26/21 21:14 h strawberry Allergy Intermediate Hives Verified 11/26/21 21:14 Sulfa (Sulfonamide Allergy Intermediate Rash, hives Verified 11/26/21 21:14 Antibiotics) vancomycin Allergy Intermediate Bullous Verified 11/26/21 21:14 skin rash allopurinol Allergy Mild Rash Verified 11/26/21 21:14 ceftriaxone [From Rocephin] Allergy Mild Rash Verified 11/26/21 21:14 piperacillin [From Zosyn] Allergy Mild Rash Verified 11/26/21 21:14 tazobactam [From Zosyn] Allergy Mild Rash Verified 11/26/21 21:14 venlafaxine Allergy Unknown Unknown Verified 11/26/21 21:14 gluten AdvReac Severe Celiac Dz Verified 11/26/21 21:14 = GI symptoms propoxyphene AdvReac Intermediate HOMOEOPATH side Verified 11/26/21 21:14 effects Medications Home Medications Medication Instructions Recorded Confirmed Last Taken cetirizine 10 mg tablet (Zyrtec) 10 mg PO QAM 07/16/18 11/26/21 11/26/21 folic acid 1 mg tablet 1 mg PO QAM 07/16/18 11/26/21 11/26/21 magnesium oxide 400 mg PO QAM 07/16/18 11/26/21 11/26/21 multivitamin 1 tab PO QAM 07/16/18 11/26/21 11/26/21 vitamin B complex (B-Complex) 1 tab PO QAM 07/16/18 11/26/21 11/26/21 calcium carbonate 600 mg-vitamin 1 tab PO QPM 11/26/18 11/26/21 11/25/21 D3 20 mcg (800 unit) tablet (Caltrate with Vitamin D3) cyanocobalamin (vitamin B-12) 1,000 mcg IM MONTHLY 02/10/19 11/26/21 10/06/21 1,000 mcg/mL injection solution ferrous sulfate 325 mg (65 mg 325 mg PO QAM 02/10/19 11/26/21 11/26/21 iron) tablet (iron) vitamin E 400 unit capsule 400 unit PO QAM 08/28/19 11/26/21 11/26/21 Medical Marijuana 1 ml SUBLINGUAL UD PRN 06/27/20 11/26/21 10/12/21 denosumab 60 mg/mL subcutaneous 60 mg SUBCUT .q 6 months ml 12/17/20 11/26/21 07/15/21 syringe (Prolia) acetaminophen 500 mg capsule 500 mg PO QID PRN 01/24/21 11/26/21 10/31/21 05:45 L.acidophilus-B.animalis-B.longum 1 cap PO QAM 02/03/21 11/26/21 11/26/21 15 billion cell capsule albuterol sulfate 90 mcg/actuation 2 puff INHALATION QID PRN #8.5 gm 04/22/21 11/26/21 05/30/21 07:00 aerosol inhaler (ProAir HFA) metoprolol succinate 50 mg 25 mg PO QAM #45 tab 05/23/21 11/26/21 11/26/21 tablet,extended release 24 hr Auto Titrating CPAP #1 ea 06/01/21 10/24/21 Unknown CPAP Supplies #1 ea 06/01/21 10/24/21 Unknown methocarbamol 750 mg tablet 750 mg PO BID PRN #60 tab 06/21/21 11/26/21 10/12/21 rizatriptan 10 mg tablet 10 mg PO DAILY PRN #9 tab 06/21/21 11/26/21 Unknown oxybutynin chloride 10 mg 10 mg PO QAM #90 tab 07/14/21 11/26/21 11/26/21 tablet,extended release 24 hr mirabegron 50 mg tablet,extended 50 mg PO HS #90 tab 07/25/21 11/26/21 11/25/21 release 24 hr (Myrbetriq) coQ10 (ubiquinol) 200 mg capsule 200 mg PO QAM 08/10/21 11/26/21 11/26/21 doxycycline hyclate 100 mg capsule 100 mg PO QDD 08/10/21 11/26/21 11/25/21 gabapentin 400 mg capsule 400 mg PO QAM 30 Days #30 cap 08/11/21 11/26/21 11/26/21 (Neurontin) potassium chloride 20 mEq 20 meq PO QAM #30 tab 08/11/21 11/26/21 11/26/21 tablet,extended release oxycodone 5 mg tablet 5 mg PO Q4H PRN #20 tab 08/18/21 11/26/21 10/12/21 budesonide-formoterol HFA 80 2 puff INHALATION BID #3 inhaler 08/22/21 11/26/21 11/26/21 08:00 mcg-4.5 mcg/actuation aerosol inhaler (Symbicort) clonazepam 1 mg tablet 0.5 mg PO HS #30 tab 08/22/21 11/26/21 11/25/21 quetiapine 50 mg tablet (Seroquel) 50 mg PO HS #30 tab 08/22/21 11/26/21 11/25/21 pmqeocxurl-zqttngvxcznhy-flhdyvxz 1 tab PO DAILY PRN 30 Days #12 tab 09/27/21 11/26/21 Unknown 50 mg-325 mg-40 mg tablet (Esgic) sertraline 50 mg tablet (Zoloft) 50 mg PO HS #30 tab 10/03/21 11/26/21 11/25/21 cephalexin 500 mg capsule 500 mg PO QDD 10/12/21 11/26/21 11/25/21 triamcinolone acetonide 0.025 % 1 applic TOPICAL BID PRN #80 g 10/17/21 11/26/21 Unknown topical cream diphenhydramine HCl 25 mg capsule 25 mg PO Q6H PRN 10/31/21 11/26/21 10/31/21 05:45 (Benadryl) acyclovir 400 mg tablet 400 mg PO AMHS 11/17/21 11/26/21 11/26/21 08:00 topiramate 100 mg tablet (Topamax) 100 mg PO QAM 11/17/21 11/26/21 11/26/21 topiramate 200 mg tablet (Topamax) 200 mg PO HS 11/17/21 11/26/21 11/25/21 vancomycin 125 mg capsule 125 mg PO 2XWK 11/17/21 11/26/21 Unknown ergocalciferol (vitamin D2) 1,250 50,000 unit PO WK 11/26/21 11/26/21 11/26/21 mcg (50,000 unit) capsule phenazopyridine 200 mg tablet 200 mg PO BID PRN 11/26/21 11/26/21 Unknown (Pyridium) Active Medications Generic Name Dose Route Start Last Admin Trade Name Freq PRN Reason Stop Dose Admin Acetaminophen 1,000 mg 12/07/21 23:17 12/13/21 22:37 Acetaminophen 500 Mg Tab PO 01/06/22 23:16 1,000 mg Q8H PRN Administration fever, pain Acetaminophen/Butalbital/Caffeine 1 tab 11/27/21 02:26 12/02/21 08:12 Butalbital/Acetamin/Caffeine Tab PO 12/27/21 02:25 1 tab DAILY PRN Administration HEADACHES Acyclovir 400 mg 11/27/21 09:00 12/14/21 09:52 Acyclovir 400 Mg Tab PO 12/30/21 08:59 400 mg BID BIRDIE Administration Cetirizine HCl 10 mg 11/27/21 09:00 12/14/21 09:50 Cetirizine Hcl 10 Mg Tablet PO 12/27/21 08:59 10 mg QAM BIRDIE Administration Clonazepam 0.5 mg 11/27/21 21:00 12/13/21 22:43 Clonazepam 0.5 Mg Tab PO 12/27/21 20:59 0.5 mg HS BIRDIE Administration Diphenhydramine HCl 25 mg 11/27/21 02:26 12/13/21 22:37 Diphenhydramine Capsule 25 Mg Cap PO 12/27/21 02:25 25 mg Q6H PRN Administration Allergic Symptoms Ferrous Sulfate 325 mg 11/27/21 09:00 12/14/21 09:49 Ferrous Sulfate 325 Mg Tab PO 12/27/21 08:59 325 mg QAM BIRDIE Administration Fluconazole 200 mg 12/02/21 09:00 12/14/21 09:45 Fluconazole 100 Mg Tab PO 01/01/22 08:59 200 mg QAM BIRDIE Administration Fluticasone/Vilanterol 1 puffs 11/27/21 09:00 12/14/21 09:51 Fluticasone/Vilanterol 100/25mcg 14 Puffs/Inhaler INH 12/27/21 08:59 1 puffs DAILY BIRDIE Administration Folic Acid 1 mg 11/27/21 09:00 12/14/21 09:43 Folic Acid 1 Mg Tab PO 12/27/21 08:59 1 mg QAM BIRDIE Administration Gabapentin 400 mg 11/27/21 09:00 12/14/21 09:50 Gabapentin 400 Mg Cap PO 12/27/21 08:59 400 mg QAM BIRDIE Administration Meropenem 500 mg/ Syringe 10 mls @ 2 mls/min 12/09/21 14:00 12/14/21 13:40 IV 12/19/21 13:59 2 mls/min Q8H BIRDIE Administration Protocol Lactobacillus Acidophilus 1 cap 11/27/21 09:00 12/14/21 09:44 Advanced Probiotic 1250 Mg Capsule PO 12/27/21 08:59 1 cap QAM BIRDIE Administration Magnesium Oxide 400 mg 11/27/21 09:00 12/14/21 09:45 Magnesium Oxide 400 Mg Tab PO 12/27/21 08:59 400 mg QAM BIRDIE Administration Methocarbamol 750 mg 11/27/21 02:26 12/14/21 09:54 Methocarbamol 750 Mg Tablet PO 12/27/21 02:25 750 mg BID PRN Administration Pain Metoprolol Succinate 25 mg 11/27/21 09:00 12/14/21 10:36 Metoprolol Succ 25mg Ext Rel Tab PO 12/27/21 08:59 Not Given QAM BIRDIE Mirabegron 50 mg 11/27/21 21:00 12/13/21 22:37 Mirabegron Er 25 Mg Tab PO 12/27/21 20:59 50 mg HS BIRDIE Administration Ondansetron HCl 4 mg 11/26/21 22:30 12/13/21 18:08 Ondansetron Inj 2 Mg/Ml 2 Ml Vial IV 12/26/21 22:29 4 mg Q6H PRN Administration Nausea Oxybutynin Chloride 10 mg 11/27/21 09:00 12/14/21 09:51 Oxybutynin Chloride Xl 5 Mg Tabcr PO 12/27/21 08:59 10 mg QAM BIRDIE Administration Oxycodone HCl 5 mg 12/11/21 02:46 12/14/21 08:53 Oxycodone Hcl Ir 5 Mg Tab (Immediate Release) PO 12/25/21 02:45 5 mg Q4H PRN Administration Pain Pantoprazole Sodium 40 mg 11/28/21 21:00 12/14/21 09:52 Pantoprazole 40 Mg Tab PO 12/28/21 20:59 40 mg BID BIRDIE Administration Phenazopyridine HCl 200 mg 11/27/21 02:26 12/12/21 08:26 Phenazopyridine Hcl 200 Mg Tab PO 12/27/21 02:25 200 mg BID PRN Administration BLADDER PAIN Quetiapine Fumarate 50 mg 11/27/21 21:00 12/13/21 22:37 Quetiapine Fumarate 25 Mg Tablet PO 12/27/21 20:59 50 mg HS BIRDIE Administration Raspberry 5 ml 12/01/21 09:00 12/14/21 09:42 Raspberry Syrup 5 Ml Udp PO 12/31/21 08:59 5 ml DAILY BIRDIE Administration Sertraline HCl 50 mg 11/27/21 21:00 12/13/21 22:37 Sertraline Hcl 50 Mg Tablet PO 12/27/21 20:59 50 mg HS BIRDIE Administration Topiramate 200 mg 11/27/21 21:00 12/13/21 22:37 Topiramate 100 Mg Tab PO 12/27/21 20:59 200 mg HS BIRDIE Administration Topiramate 100 mg 11/27/21 09:00 12/14/21 09:49 Topiramate 100 Mg Tab PO 12/27/21 08:59 100 mg QAM BIRDIE Administration Vancomycin HCl 125 mg 12/01/21 09:00 12/14/21 09:48 Vancomycin Hcl 125 Mg/2.5ml Soln PO 12/31/21 08:59 125 mg DAILY BIRDIE Administration Past Medical History Medical History Acute UTI (urinary tract infection) [place] (acute kidney injury) Asthma Celiac disease Cellulitis Recurrent B/L LE - on prophylactic abx (Follows with Dr. Nielson). on chronic Cephalexin and Doxy Chronic back pain Chronic kidney disease Stage III > follows Dr. Fleming Chronic obstructive pulmonary disease Emphysema Cirrhosis of liver Hx of Hep C with cirrhosis COVID-19 Dehydration Depression Fever History of blood transfusion History of recurrent UTI (urinary tract infection) Hx MRSA infection several yrs ago Hx of cancer of lung s/p radiation (2012), recurrence (2019 in [facility]) s/p radiation- follows with heme/onc Hx of Clostridium difficile infection on Vanco 2x/week for prophylaxis Hx of deep venous thrombosis LLE (1976) Hx of hepatitis C 2013 > "resolved" Hx of non-Hodgkin's lymphoma s/p treatment in 2013 Hydronephrosis b/l chronic hydronephrosis requiring routine stent exchanges Hyperlipidemia Migraine Mood disorder Myelodysplasia (myelodysplastic syndrome) Diagnosed 07/09/21 by bone marrow biopsy. Being treated with Azacitidine and Procrit injections. 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 Pagan Thrombocytopenia Chronic (platelet baseline in the 40-70s over the past few months) Venous stasis dermatitis Past Family History Family History Unknown Heart disease Hypertension Mother Psoriasis Diabetes Past Surgical History Surgical History H/O bursectomy Right knee History of bone marrow biopsy History of bronchoscopy History of carpal tunnel release Left History of cystoscopy Multiple Bilateral Retrograde Pyelogram (05/27/21): MAC at [facility] History of esophagogastroduodenoscopy (EGD) History of liver biopsy History of tooth extraction History of ureter stent MULTIPLE Hx of bladder repair surgery FOR PROLAPSE Hx of colonoscopy Hx of tonsillectomy Hx of tubal ligation Social History Smoking Status: Former smoker tobacco type: cigarettes Smoking cigarettes per day: Quit 02/2011 Hx Alcohol Use: No Hx Substance Use: No substance use type: marijuana Substance Use Type Other:: medical marijuana card Last Used Substance: Just Prior to Arrival Last Used Substance Other:: medical [facility] Physical Exam Vital Signs Last Vital Signs Temp 98.1 F 02/23/22 08:07 Pulse 92 H 12/14/21 08:07 Resp 16 12/14/21 08:07 BP 94/56 L 12/14/21 10:35 Pulse Ox 92 12/14/21 08:07 Testing Laboratory Results 12/13/21 06:12 12/13/21 06:12 PT 11.3 Seconds (9.0-12.0) 12/04/21 06:10 INR 1.1 (0.9-1.1) 12/04/21 06:10 APTT 41.2 Seconds (21.0-31.0) H 12/04/21 06:10 Urine Color Dark Yellow 12/08/21 11:45 Urine Appearance Cloudy (Clear) A 12/08/21 11:45 Urine pH 6.5 (4.5-7.5) 12/08/21 11:45 Ur Specific [place] 1.012 (1.000-1.030) 12/08/21 11:45 Urine Protein 2+ (Negative) H 12/08/21 11:45 Urine Glucose (UA) Negative (Negative) 12/08/21 11:45 Urine Ketones Negative (Negative) 12/08/21 11:45 Urine Nitrite Positive (Negative) A 12/08/21 11:45 Ur Leukocyte Esterase 2+ (Negative) H 12/08/21 11:45 Urine WBC (Auto) >30 /hpf (0-5) H 12/08/21 11:45 Urine RBC (Auto) 10-30 /hpf (0-4) H 12/08/21 11:45 U Hyaline Cast (Auto) 5-10 /lpf (0-5) H 12/08/21 11:45 U Epithel Cells (Auto) 5-10 /lpf (0-5) H 12/08/21 11:45 Urine Bacteria (Auto) 1+ (Negative) H 12/08/21 11:45 Urine RBC >30 /hpf (0-4) H 11/27/21 Unknown Urine WBC >30 /hpf (0-5) H 11/27/21 Unknown Ur Epithelial Cells 0-5 /lpf (0-5) 11/27/21 Unknown Blood Type B Positive 12/09/21 10:29 Antibody Screen POSITIVE A 12/09/21 10:29 12/07/21 23:55 Aerobic Blood Culture - Final Blood No growth in Aerobic bottle after 5 days. Anaerobic Blood Culture - Final No growth in Anaerobic bottle after 5 days. 12/08/21 00:04 Aerobic Blood Culture - Final Blood No growth in Aerobic bottle after 5 days. Anaerobic Blood Culture - Final No growth in Anaerobic bottle after 5 days. 12/08/21 11:45 Urine Culture - Final Urine,Clean Catch No growth - less than 1,000 colonies/mL. 11/27/21 08:05 Aerobic Blood Culture - Final Blood No growth in Aerobic bottle after 5 days. Anaerobic Blood Culture - Final No growth in Anaerobic bottle after 5 days. 11/27/21 02:31 Aerobic Blood Culture - Final Blood No growth in Aerobic bottle after 5 days. Anaerobic Blood Culture - Final No growth in Anaerobic bottle after 5 days. 11/27/21 00:52 Urine Culture - Final Urine,Clean Catch Klebsiella pneumoniae ESBL Electrocardiogram Date: 12/07/21 Sinus tachycardia, rate 113 bpm Otherwise normal ECG When compared with ECG of 26-NOV-2021 21:25, HR has increased by 35 bpm Otherwise no significant change Confirmed by Collin Deng ([id number]) on 12/08/2021 9:01:47 AM Chest X-Ray Date: 11/27/21 IMPRESSION: COPD with interstitial fibrotic changes present. Deeper inspiration on the current study with resolution of left basilar opacity which most likely represented atelectasis. Stable right upper lobe scarring. Otherwise, no acute chest disease. Echocardiogram Date: 05/10/21 LV systolic function is normal No regional wall motion abnormalities noted EF 55-60% Mild MR Compared with study of 02/13/18, no significant change
[2021-12-14 15:26] LABS: BUN Creatinine Ratio 16.2 (10-20); Calcium 7.9 mg/dl (8.5-10.1); Creatinine Clr Calc Pharmacy 39.8 ml/min; Est GFR (African American) 64.1 ml/min; Est GFR (Non-African American) 55.3 ml/min; Potassium 3.4 mmol/L (3.5-5.1)
[2021-12-14 15:43] LABS: Hematocrit (blood only) 23.8 % (37-47); Hemoglobin 7.7 g/dL (12.0-16.0); Mean Corpuscular Hemoglobin 26.8 pg (25-34); Mean Corpuscular Hgb Conc 32.4 g/dL (32-36); Mean Corpuscular Volume 82.9 fL (80-100); Nucleated RBC # (auto) 0.02 K/uL (0-0); Nucleated RBC % (auto) 3.1 %; Platelet Count 17 K/uL (130-400); RDW Coefficient of Variation 16.9 % (11.5-14.5); RDW Standard Deviation 50.3 fL (36.4-46.3); Red Blood Count 2.87 M/uL (4.2-5.4); White Blood Count 0.76 K/uL (4.8-10.8)
[2021-12-14 15:49] LABS: Platelet Estimate SIGNIFIC DECREASED (Normal); Poikilocytosis Present
[2021-12-14 15:50] LABS: ALC (manual) 0.44 K/uL (1.2-3.4); ANC (manual) 0.16 K/uL (1.4-6.5); Lymphocytes # (manual) 0.44 K/uL (1.2-3.4); Lymphocytes % (manual) 57.6 %; Monocytes # (manual) 0.16 K/uL (0.11-0.59); Monocytes % (manual) 21.2 %; Neutrophils # (manual) 0.16 K/uL (1.4-6.5); Neutrophils % (manual) 21.2 %
[2021-12-14] MEDS ORDERED: CASPOFUNGIN 50 MG in SODIUM CHLORIDE 0.9% 250 ML IV ONE (16:08)
--- NOTE | 2021-12-14 16:56 | Gastroenterology Progress Note ---
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 Elective endoscopy to evaluate bleeding risk not indicated due to risk exceeding any possible benefit. Recommend continue empiric treatment with an oral proton pump inhibitor and avoid endoscopic intervention unless there is evidence for destabilizing GI bleeding. We will see the patient again as requested by the primary care team. Admission and Anticipated Discharge Date Admission Date: November 26, 2021 Subjective Follow up visit to reassess possible GI blood loss and need for endoscopic intervention. Both the patient and her son state that there was hemoptysis on admission to the hospital 2 weeks ago, but no further episodes of hemoptysis since then. Patient and son both deny that there has been any hematemesis, melena, hematochezia, there has been no overt GI bleeding over the course of this hospitalization. Stools are dark, related to oral iron supplementation. There was a drop in H/H last week, requiring packed red blood cell transfusion, but no overt bleeding detected at that time. Review of Systems Review of Systems: All systems reviewed & are unremarkable except as noted in Subjective Results & Data ([facility]) Vital Signs (Past 12 Hours) Vital Signs Temp Pulse Resp BP Pulse Ox 12/14/21 10:35 94/56 L 12/14/21 08:07 36.7 C 92 H 16 114/67 92 Laboratory Results Laboratory Results WBC 0.76 K/uL (4.8-10.8) L* 12/14/21 14:49 RBC 2.87 M/uL (4.2-5.4) L 12/14/21 14:49 Hgb 7.7 g/dL (12.0-16.0) L 12/14/21 14:49 Hct 23.8 % (37-47) L 12/14/21 14:49 MCV 82.9 fL (80-100) 12/14/21 14:49 MCH 26.8 pg (25-34) 12/14/21 14:49 MCHC 32.4 g/dL (32-36) 12/14/21 14:49 RDW Std Deviation 50.3 fL (36.4-46.3) H 12/14/21 14:49 RDW Coeff of Irasema 16.9 % (11.5-14.5) H 12/14/21 14:49 Plt Count 17 K/uL (130-400) L* D 12/14/21 14:49 Immature Gran % (Auto) 0.0 % 12/12/21 06:01 Neut % (Auto) 17.3 % 12/12/21 06:01 Lymph % (Auto) 66.7 % 12/12/21 06:01 [place] % (Auto) 16.0 % 12/12/21 06:01 Eos % (Auto) 0.0 % 12/12/21 06:01 Baso % (Auto) 0.0 % 12/12/21 06:01 Reticulocyte % (Auto) 1.5 % (0.5-2.0) 11/27/21 02:31 Neut # (Auto) 0.13 K/uL (1.4-6.5) L* 12/12/21 06:01 Lymph # (Auto) 0.50 K/uL (1.2-3.4) L 12/12/21 06:01 [place] # (Auto) 0.12 K/uL (0.11-0.59) 12/12/21 06:01 Eos # (Auto) 0.00 K/uL (0-0.5) 12/12/21 06:01 Baso # (Auto) 0.00 K/uL (0-0.2) 12/12/21 06:01 Reticulocyte # 0.05 10^6/uL (0.02-0.10) 11/27/21 02:31 Immature Gran # (Auto) 0.00 K/uL (0.00-0.02) 12/12/21 06:01 Absolute Nucleated RBC 0.02 K/uL (0-0) H 12/14/21 14:49 Nucleated RBC % (auto) 3.1 % 12/14/21 14:49 Neutrophils % (Manual) 21.2 % 12/14/21 14:49 Lymphocytes % (Manual) 57.6 % 12/14/21 14:49 Reactive Lymphs % (Man) 11.2 % 12/01/21 06:16 Monocytes % (Manual) 21.2 % 12/14/21 14:49 Eosinophils % (Manual) 2.0 % 12/11/21 05:14 Basophils % (Manual) 2.0 % 12/11/21 05:14 Metamyelocytes % (Man) 1.2 % 12/02/21 05:39 Myelocytes % (Man) 2.7 % 12/08/21 06:24 Promyelocytes % (Man) 0.9 % 12/01/21 06:16 Blast Cells % (Manual) 3.6 % 12/13/21 06:12 Neutrophils # (Manual) 0.16 K/uL (1.4-6.5) L 12/14/21 14:49 Total Absolute Neuts 0.16 K/uL (1.4-6.5) L* 12/14/21 14:49 Lymphocytes # (Manual) 0.44 K/uL (1.2-3.4) L 12/14/21 14:49 Reactive Lymphs # 0.12 K/uL 12/01/21 06:16 Total Abs Lymphocytes 0.44 K/uL (1.2-3.4) L 12/14/21 14:49 Monocytes # (Manual) 0.16 K/uL (0.11-0.59) 12/14/21 14:49 Eosinophils # (Manual) 0.01 K/uL (0-0.5) 12/11/21 05:14 Basophils # (Manual) 0.01 K/uL (0-0.2) 12/11/21 05:14 Metamyelocytes # (Man) 0.01 K/uL (0-0) H 12/02/21 05:39 Myelocytes # (Manual) 0.02 K/uL (0-0) H 12/08/21 06:24 Promyelocytes # (Man) 0.01 K/uL (0-0) H 12/01/21 06:16 Blast Cells # (Man) 0.02 K/uL (0-0) H 12/13/21 06:12 Hypersegmented Neuts 1+ 12/01/21 06:16 Hyposegmented Neuts 1+ 12/12/21 06:01 Hypogranular Neuts 1+ 12/02/21 05:39 Toxic Granulation 1+ 12/08/21 06:24 Toxic Vacuolation 1+ 11/30/21 05:40 Platelet Estimate SIGNIFIC DECREASED (Normal) 12/14/21 14:49 Giant Platelets 1+ 12/13/21 06:12 Polychromasia 1+ 12/06/21 05:46 Hypochromasia Present 12/01/21 06:16 Poikilocytosis Present 12/14/21 14:49 Anisocytosis Present 11/27/21 02:31 Microcytosis Present 12/06/21 05:46 Tear Drop Cells 1+ 12/12/21 06:01 Ovalocytes 1+ 12/01/21 06:16 Schistocytes 1+ 12/06/21 05:46 PT 11.3 Seconds (9.0-12.0) 12/04/21 06:10 INR 1.1 (0.9-1.1) 12/04/21 06:10 APTT 41.2 Seconds (21.0-31.0) H 12/04/21 06:10 PTT Ratio 1.6 12/04/21 06:10 Fibrinogen 362 mg/dl (184-400) 11/27/21 02:31 D-Dimer 3470 ug/L FEU (0-500) H* 11/30/21 05:40 POC pH 7.23 (7.35-7.45) L 11/27/21 00:13 POC pCO2 32 mmHg (35-46) L 11/27/21 00:13 POC pO2 125 mmHg (80-95) H 11/27/21 00:13 POC HCO3 13 leonor/L (19-24) L 11/27/21 00:13 POC Total CO2 14 mmol/L (24-31) L 11/27/21 00:13 POC Base Excess -14.0 leonor/L (-9-1.8) L 11/27/21 00:13 POC ABG O2 Sat 98.0 % (90-95) H 11/27/21 00:13 VBG pH 7.34 (7.36-7.41) L 11/27/21 08:05 VBG pCO2 41 mmHg (38-50) 11/27/21 08:05 VBG pO2 28 mmHg 11/27/21 08:05 VBG HCO3 22 mmol/L 11/27/21 08:05 VBG O2 Saturation < 60.0 % 11/27/21 08:05 VBG Base Excess -3.9 mEq/L 11/27/21 08:05 Barometric Pressure 744.2 mm/Hg 11/27/21 08:05 Sodium 133 mmol/L (136-145) L 12/14/21 14:49 Potassium 3.4 mmol/L (3.5-5.1) L 12/14/21 14:49 Chloride 99 mmol/L (98-107) 12/14/21 14:49 Carbon Dioxide 26 mmol/L (21-32) 12/14/21 14:49 Anion Gap 8 (3-11) 12/14/21 14:49 BUN 17 mg/dl (6-23) 12/14/21 14:49 Creatinine 1.05 mg/dl (0.6-1.2) 12/14/21 14:49 Est Cr Clr Drug Dosing 39.8 ml/min 12/14/21 14:49 Est GFR ( Amer) 64.1 ml/min 12/14/21 14:49 Est GFR (Non-Af Amer) 55.3 ml/min 12/14/21 14:49 BUN/Creatinine Ratio 16.2 (10-20) 12/14/21 14:49 Glucose 102 mg/dl (70-99(Fasting)) H 12/14/21 14:49 POC Glucose 98 mg/dl (70-99) 11/28/21 20:39 POC Glucose (other) 144 mg/dl (70-99) H 11/27/21 18:33 Calcium 7.9 mg/dl (8.5-10.1) L 12/14/21 14:49 Phosphorus 3.4 mg/dl (2.5-4.9) 12/05/21 05:48 Magnesium 1.8 mg/dl (1.7-2.4) 12/10/21 08:43 Total Bilirubin 0.8 mg/dl (0.2-1.0) 12/10/21 08:43 Direct Bilirubin 0.2 mg/dl (0-0.2) 11/28/21 05:54 AST 10 U/L (13-39) L 12/10/21 08:43 ALT 13 U/L (7-52) 12/10/21 08:43 Alkaline Phosphatase 115 U/L (34-104) H 12/10/21 08:43 Total Protein 5.2 gm/dl (6.0-8.3) L 12/10/21 08:43 Albumin 2.7 gm/dl (3.4-5.0) L 12/10/21 08:43 Globulin 2.5 gm/dl (2.5-4.0) 12/10/21 08:43 Albumin/Globulin Ratio 1.1 (0.9-2) 12/10/21 08:43 Procalcitonin 0.37 ng/ml (0-0.5) 11/26/21 21:21 Random Cortisol 19.42 mcg/dl 11/27/21 08:07 Urine Color Dark Yellow 12/08/21 11:45 Urine Appearance Cloudy (Clear) A 12/08/21 11:45 Urine pH 6.5 (4.5-7.5) 12/08/21 11:45 Ur Specific [place] 1.012 (1.000-1.030) 12/08/21 11:45 Urine Protein 2+ (Negative) H 12/08/21 11:45 Urine Glucose (UA) Negative (Negative) 12/08/21 11:45 Urine Ketones Negative (Negative) 12/08/21 11:45 Urine Blood 3+ (Negative) H 12/08/21 11:45 Urine Nitrite Positive (Negative) A 12/08/21 11:45 Urine Bilirubin Negative (Negative) 12/08/21 11:45 Urine Urobilinogen Negative (Negative) 12/08/21 11:45 Ur Leukocyte Esterase 2+ (Negative) H 12/08/21 11:45 Urine WBC (Auto) >30 /hpf (0-5) H 12/08/21 11:45 Urine RBC (Auto) 10-30 /hpf (0-4) H 12/08/21 11:45 U Hyaline Cast (Auto) 5-10 /lpf (0-5) H 12/08/21 11:45 U Epithel Cells (Auto) 5-10 /lpf (0-5) H 12/08/21 11:45 Urine Bacteria (Auto) 1+ (Negative) H 12/08/21 11:45 Urine RBC >30 /hpf (0-4) H 11/27/21 Unknown Urine WBC >30 /hpf (0-5) H 11/27/21 Unknown Ur Epithelial Cells 0-5 /lpf (0-5) 11/27/21 Unknown Urine Crystals Not Reportable 12/08/21 11:45 Calcium Oxalate Crystal Present (None Prsent) A 12/08/21 11:45 Urine Bacteria 1+ (Negative) H 11/27/21 Unknown Nasal Screen MRSA (PCR) Negative (Negative) 11/27/21 02:00 SARS-CoV-2, RNA, NAAT POSITIVE (NEGATIVE) A* 11/26/21 Unknown IMP Carbapenemase (STEPHANIE) NOT DETECTED (NotDetected) 11/27/21 00:52 KPC Carbapenemase (STEPHANIE) NOT DETECTED (NotDetected) 11/27/21 00:52 NDM Carbapenemase (STEPHANIE) NOT DETECTED (NotDetected) 11/27/21 00:52 OXA Carbapenemase (STEPHANIE) NOT DETECTED (NotDetected) 11/27/21 00:52 VIM Carbapenemase (STEPHANIE) NOT DETECTED (NotDetected) 11/27/21 00:52 Blood Type B Positive 12/09/21 10:29 Antibody Screen POSITIVE A 12/09/21 10:29 Antibody Identification Auto [place] Agglutinin 12/09/21 10:29 Antibody ID Referred 12/09/21 10:42 Antibody ID Comment Cancelled 12/09/21 10:29 Crossmatch See Detail 12/09/21 10:29 Impressions Chest X-Ray 11/27/21 00:30 XR chest 1V portable CLINICAL HISTORY: SOB, c/f UGIB. COMPARISON STUDY: 11/26/2021 TECHNIQUE: 1 view of the chest FINDINGS: Single frontal view of the chest demonstrates the cardiomediastinal silhouette to be within normal limits. Compared to the previous examination, COPD with interstitial fibrotic changes are again seen. There is a deeper inspiration on the current study with resolution of left basilar opacity which most likely represented atelectasis. Compared to the previous study, stable lung opacities are again seen involving the right upper lobe characteristic of scarring. Patient has history of lung cancer. There is no evidence for pleural effusion. There is no evidence for vascular congestion. There is no acute osseous pathology. IMPRESSION: COPD with interstitial fibrotic changes present. Deeper inspiration on the current study with resolution of left basilar opacity which most likely represented atelectasis. Stable right upper lobe scarring. Otherwise, no acute chest disease. ACT 112: Negative or not required by law. Electronically signed by: Holland Rodgers M.D. 11/27/2021 8:13 AM
[2021-12-14] MEDS ORDERED: CASPOFUNGIN 70 MG in SODIUM CHLORIDE 0.9% 250 ML IV ONE (17:00)
--- NOTE | 2021-12-14 20:34 | Hospitalist Progress Note ---
Date of Service December 14, 2021 Assessment & Plan (1) UTI (urinary tract infection): Plan: History of Hydronephrosis with Ureteral Stent Placement. - Recent history of ureteral stents placed in 07/2021 and 09/2021 (exchanged) - Unfortunately, had associated UTIs since that time-currently with ESBL Klebsiella - Consulted urology about stent exchange - Spoke with urology on 12/05. No further stent exchanges. Recommend that she be evaluated by tertiary care center for stent removal and nephrostomy tubes. Will hold transfer to tertiary care over the next 24 hours, as goals of care are currently being determined by the patient and her family. - Finished Meropenem on 12/06. Had another fever on 12/07 after 24 hours off antibiotics. - Recultured on 12/08, UC negative. Restarted meropenem 12/08/2021, last documented fever of 37.7 degrees C on 12/09 at 17:00. => Plan to start Keflex/doxy for urine ppx at discharge. Called [facility], they did not accept transfer for nephrostomy tube placement. discussed with nurse navigator, will obtain heme follow up. However, [facility] is now agreeable to exchaning the stents on 12/15 ordering caspofungin IV to replace fluconazole PO perioperatively. 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 - Gave Neupogen 480 mcg SQ daily x 3 days-final dose on 11/29 - Gave Procrit 40,000 units x 1 on 11/29 - Received platelets on 11/27, 12/01, 12/02, 12/04, 12/06 - Received 2 units of PRBCs on 11/27 & 2 units on 12/06; 1 unit on 12/09. Plan: Transfuse for RBCs ~7 mg/dL and platelets < 10k or active bleeding. platelets remain below 10. will transfuse again. Hold on further transfusion of platelets unless repeat platelet count remained below 10,000 or patient has active bleeding - patient does have antibodies and requires supply from blood bank in [place] Patient is still considering tertiary center, however, patient appears to be terminally ill. Called [facility] for possible transfer for additional work up on patient. Transferred was denied but would like to discuss case with Dr. lBoom for more information for outpatient practice visit. Transfer does not appear to be an option. Will depend on phone call with Dr. Bloom and [facility] (3) Sepsis: Plan: Sepsis- with recurrent UTI. Resolved but requires ongoing antibiotics for ESBL with Klebsiella pneumonia (4) UGIB (upper gastrointestinal bleed): Plan: Suspected UGIB - History primarily concerning for hematemesis/UGIB based on recent odynophagia, "spitting up blood" (non-projectile), nausea, decreased appetite. But could also be secondary to hemoptysis or epistaxis - Known history of HCV-induced cirrhosis. Last EGD seems to be 10/2019, per Dr. Chavez's [facility] note, which did NOT reveal any esophageal varices; did show Z-line irregularities and esophageal plaques c/w candidiasis - No need for octreotide with no h/o known varices - In setting of significant coagulopathy (INR 2.5, PTT 77.2, Plt 11) -- notably progressed since prior admission , coagulopathy now improved with FFP and Vit K. - Appreciate GI consult--> no urgent EGD given tenuous status and she has stopped bleeding, consider outpt EGD - Initially received PPI gtt but has now been converted to PPI po bid - Tolerating gluten free diet -On 12/14 discussed case with GI. At this point an upper endoscopy does not provide much value as patient has not had signs/symptoms of upper GI bleed. -Risks curently outweigh possible benefits at this time. -Son is updated and agreeable. (5) Coagulopathy: Plan: Coagulopathy / Thrombocytopenia - Admission labs concerning for INR 2.5 / PTT 77.2 / PLT 11 in setting of H&H 7.9 on arrival - notably worse from previous. ALso D-dimer 5000 - Most likely etiology secondary to DIC from sepsis, in setting of MDS, liver disease with HCV history, poor nutrition (Vit K deficiency possibility) - S/p 2 units FFP and Vit K and now coags normalized as of 12/04 - Received platelets on 11/27, 12/01, 12/02, 12/03 -> Coags normal on recheck on 12/04. (6) Acute respiratory failure with hypoxia: Plan: Acute Hypoxic Respiratory Failure. Upon arrival here, patient did not have O2 r equirement -- however, shortly into her course, did begin desaturating into 70- 80s requiring NC/OxyMask. - Secondary to sepsis and does have recent COVID infection, COPD, PNA, however I do not feel that this admission is related to Covid-19 at all. Hypoxia is now resolved and patient is oxygenating well on room air. (7) AURORA (acute kidney injury): Plan: Acute Kidney Injury - Has history of CKD with creatinine baseline around 0.7 - 0.9. Cr at baseline as of 12/04. - With fluids and blood products, returned to baseline. - Follow serial labs (8) COVID-19: Plan: COVID-19 - Patient recently tested positive again for COVID-19, first time at the end of October. - During last hospitalization, was not hypoxic and therefore was not started on dexamethasone / remdesivir. - No steroids needed as her hypoxia is not from COVID. - As per infection control on 12/02, she can come off isolation precautions -Oxygenating well on room air. 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 Patient currently is transfusion dependent. The patient has discussed her prognosis with multiple providers but does not want to pursue hospice care at this time. Discussed with her daughter and son via telephone call today, will speak with their mother this afternoon. Recommend to hold tertiary care transfer until goals of care have been determined. At this time we are only providing temporizing conditions with transfusions & IV abx. (11) Migraine: Plan: - Continue Topamax, Fioricet as needed (12) Celiac disease: Plan: Continue gluten-free diet (13) Prothrombin [id number] mutation: Plan: With a history of VTE, no longer on anticoagulation given severe pancytopenia and history of bleeding. (14) Urge and stress incontinence: Plan: - Continue oxybutynin (15) COPD (chronic obstructive pulmonary disease): Plan: With a history of smoking and lung cancer. - Nebs as needed (16) Hx of Clostridium difficile infection: Plan: History of C. difficile Infection-with 4 loose stools on 12/03, but on 12/04 & 0 12/05, she has firmed stools. - On chronic vancomycin suppressive therapy twice weekly - Increased vancomycin 125 Mg p.o. once daily while on antibiotics (17) Cirrhosis of liver: Plan: - Noted with a history of hep C that has been treated (18) SACHA (obstructive sleep apnea): Plan: Obstructive Sleep Apnea - Utilizes CPAP qHS -- utilize while here (19) Electrolyte imbalance: Plan: Monitor and replete prn. Plan: Disposition: Transfer to tertiary care vs. home with hospice pending goals of care. Admission and Anticipated Discharge Date Admission Date: November 26, 2021 Subjective Patient reports she is not ready to go the comfort route. On later visit, son is updated. Called [facility] and they do not accept her transfer but are agreeable for an outpatient visit. They would like to discuss case with Dr. Bloom. Review of Systems Review of Systems: All systems reviewed & are unremarkable except as noted in HPI & below Physical Exam Physical Exam: Constitutional: Extremely frail appearing elderly female. Respiratory: Lung sounds were generally clear bilaterally. Cardiovascular: Heart was RRR without significant murmur, gallops or rubs. Gastrointestinal: No palpable hepatic or splenomegaly. The abdomen was soft with normal bowel sounds. Musculoskeletal System: The musculoskeletal system seemed concordant with age. Skin: The skin was negative for jaundice. Extremities: Negative for edema or erythema Results & Data Results & Data ([facility]) Vital Signs (Past 12 Hours) Vital Signs BP 12/14/21 10:35 94/56 L PG Care Time/CCT Total # of Minutes Spent Total Time Spent with Patient: Total time spent is greater than 50% in coordination of care (as documented) at patient's floor/unit and/or counseling patient: Coding Level of Care Code 57082 Subseq Hosp Care Lvl 3 Diagnoses UTI (urinary tract infection) N39.0 Pancytopenia D61.818 Sepsis A41.9 UGIB (upper gastrointestinal bleed) K92.2 Coagulopathy D68.9 Acute respiratory failure with hypoxia J96.01 AURORA (acute kidney injury) N17.9 COVID-19 U07.1 Chronic kidney disease N18.9 MDS (myelodysplastic syndrome) D46.9 Migraine G43.909 Celiac disease K90.0 Prothrombin [id number] mutation D68.52 Urge and stress incontinence N39.46 COPD (chronic obstructive pulmonary disease) J44.9 Hx of Clostridium difficile infection Z86.19 Cirrhosis of liver K74.60 SACHA (obstructive sleep apnea) G47.33 Electrolyte imbalance E87.8 Time Spent (min) 40
[2021-12-14] MEDS: QUEtiapine FUMARATE 25 MG TABLET PO SCH (22:14)
[2021-12-14] MEDS: clonazePAM 0.5 MG TAB PO SCH (22:15)
[2021-12-14] MEDS: MIRABEGRON ER 25 MG TAB PO SCH (22:15)
[2021-12-14] MEDS: SERTRALINE HCL 50 MG TABLET PO SCH (22:16)
[2021-12-14] MEDS: BUTALBITAL/ACETAMIN/CAFFEINE TAB PO PRN (22:19)
[2021-12-15] MEDS: MEROPENEM 500 MG in SYRINGE 0 ML IV SCH ×3 (05:33→23:09)
[2021-12-15] MEDS: oxyCODONE HCL IR 5 MG TAB (IMMEDIATE RELEASE) PO PRN ×2 (05:52→22:30)
[2021-12-15 06:16] LABS: BUN Creatinine Ratio 16.1 (10-20); Calcium 7.7 mg/dl (8.5-10.1); Creatinine Clr Calc Pharmacy 35.4 ml/min; Est GFR (African American) 55.7 ml/min; Potassium 3.1 mmol/L (3.5-5.1)
[2021-12-15 06:28] LABS: Basophils # (auto) 0.02 K/uL (0-0.2); Basophils % (auto) 2.6 %; Hematocrit (blood only) 20.1 % (37-47); Hemoglobin 6.7 g/dL (12.0-16.0); Immature Granulocytes # (auto) 0.02 K/uL (0.00-0.02); Immature Granulocytes % (auto) 2.6 %; Lymphocytes # (auto) 0.46 K/uL (1.2-3.4); Lymphocytes % (auto) 60.5 %; Mean Corpuscular Hemoglobin 27.5 pg (25-34); Mean Corpuscular Hgb Conc 33.3 g/dL (32-36); Mean Corpuscular Volume 82.4 fL (80-100); Monocytes # (auto) 0.14 K/uL (0.11-0.59); Monocytes % (auto) 18.4 %; Neutrophils # (auto) 0.12 K/uL (1.4-6.5); Neutrophils % (auto) 15.9 %; Nucleated RBC # (auto) 0.02 K/uL (0-0); Nucleated RBC % (auto) 3.1 %; Platelet Count 9 K/uL (130-400); RDW Coefficient of Variation 16.9 % (11.5-14.5); RDW Standard Deviation 50.5 fL (36.4-46.3); Red Blood Count 2.44 M/uL (4.2-5.4); White Blood Count 0.76 K/uL (4.8-10.8)
[2021-12-15 06:29] LABS: Platelet Estimate SIGNIFIC DECREASED (Normal); Tear Drop Cells 1+
[2021-12-15] MEDS: METOPROLOL SUCC 25MG EXT REL TAB PO SCH (08:13)
[2021-12-15] MEDS ORDERED: SODIUM CHLORIDE 0.9% 250 ML IV PRN (08:28)
--- NOTE | 2021-12-15 09:09 | Urology Progress Note ---
Date of Service December 15, 2021 Assessment & Plan (1) Obstructive uropathy: (2) S/P ureteral stent placement: Plan: 66yo F with an extensive past medical history admitted with significant coagulopathy and thrombocytopenia on arrival and found to have GI bleed, Covid positive, and sepsis. Urology initially consulted for sepsis/UTI in the setting of chronic indwelling bilateral ureteral stents. However, given her multiple acute issues including Covid-19 infection on admission, no intervention was indicated at that time. Discussion of proceeding with stent exchange when medically stable verses nephrostomy tubes was considered. - Plan of care reviewed with Dr. Cervantes. - Pt with chronic b/l hydronephrosis managed with chronic b/l ureteral stents - Last exchanged 09/26/[address] Cervantes. - Pt approaching timeframe for regularly scheduled stent exchange. Multiple discussions between urology/Dr. Cervantes and hospital team. Pt was not accepted for transfer for nephrostomy tube placement. - Hospital team feels she is medically optimized for stent exchange at this time. - Discussed plan with hospital team. - Unfortunately, morning labs reveal need for PRBC transfusion and pt requires supply from blood bank in [place], which is unlikely to be here until tomorrow. - As patient is high risk with chronic severe pancytopenia and thrombocytopenia, will hold on surgical intervention until patient is stable and optimized for surgery. - She is afebrile, Labs reviewed- Wbc 0.76, Hgb 6.7, Creatinine 1.18 - Continue to trend. - UCx 2/ with Klebsiella ESBL - Treated with course of IV Meropenem. Repeat UCx 12/08 negative. Repeat UCx pending. - Blood cultures / and repeat 12/07 negative. - Currently on IV Meropenem and Caspofungin. - Continue supportive care and acute management per primary team. - Will continue to monitor and if still inpatient, we will try to schedule for next available time for stent exchange. Otherwise, will set up as outpatient. - Please contact us with any questions, concerns, or changes in patient status. Admission and Anticipated Discharge Date Admission Date: November 26, 2021 Subjective Pt examined at bedside this AM. Awake, sitting in bedside chair on arrival. No fevers. Has been NPO. Voiding without issue. Denies hematuria and dysuria. Review of Systems Constitutional: as per Subjective / HPI Gastrointestinal: as per Subjective / HPI Genitourinary: as per Subjective / HPI Physical Exam Constitutional: + thin and + frail appearing; no acute distress Respiratory: no respiratory distress and no labored breathing Gastrointestinal (Abdomen): Inspection/Auscultation: abdomen normal to inspection Skin: Warm and dry. No visible rashes to exposed skin areas. Neurologic: moves all extremities and awake Psychiatric: Orientation: alert, oriented x 3 and cooperative Results & Data ([facility]) Vital Signs (Past 12 Hours) Vital Signs Temp Pulse Pulse Resp BP Pulse Ox 12/15/21 08:12 93 12/15/21 07:49 36.6 C 96 H 21 91/53 L 12/15/21 02:55 96 H 15 93 12/14/21 23:55 18 93 12/14/21 22:00 37 C 125 H 22 91/52 L 91 PG Care Time/CCT Total # of Minutes Spent Total Time Spent with Patient: Total time spent is greater than 50% in coordination of care (as documented) at patient's floor/unit and/or counseling patient: Coding Level of Care Code 06746 Subseq Hosp Care Lvl 2 Diagnoses Obstructive uropathy N13.9 S/P ureteral stent placement Z96.0
[2021-12-15] MEDS: diphenhydrAMINE Capsule 25 MG CAP PO PRN ×2 (10:21→21:04)
[2021-12-15] MEDS: ACETAMINOPHEN 500 MG TAB PO PRN (10:21)
[2021-12-15] MEDS ORDERED: SODIUM CHLORIDE 0.9% 500 ML IV ONE (11:45)
--- NOTE | 2021-12-15 11:46 | Hospitalist Progress Note ---
Date of Service December 15, 2021 Assessment & Plan (1) UTI (urinary tract infection): Plan: Goals of care discussion: Discussed goals of care with patient at the bedside. She reports an understanding of her medical condition, and that she would like to pursue treatments including ICU, pressors, CPR, and intubation if needed at this time. She understands that she is transfusion dependent, that she would likely need a repeat bone marrow biopsy for further hematology work-up and even at that she may not be a good candidate for transplant/treatment but she would like to pursue aggressive care at this time and follow-up on any options available to her. She does express understanding that many of these, especially CPR, would have a substantial compromise to her quality of life and surgical interventions could be futile to her given her level of medical fragility. She is able to verbalize this risk, but expresses she would want to pursue these at this time if there is a chance in extending the length of her life. Discussed with her family by phone, who expressed that while they feel that she may benefit from a palliative approach History of Hydronephrosis with Ureteral Stent Placement. - history of ureteral stents placed in 07/2021 and subsequent exchange every 3 months, with some delays due to acute medical issues - chronic obstruction hydronephrosis with candidal UTI. - Unfortunately, had associated UTIs since that time-currently with ESBL Klebsiella -Urology consulted about stent exchange - Spoke with urology on 12/05. Recommend that she be evaluated by tertiary care center for stent removal and nephrostomy tubes. This was discussed with tertiary care who did not accept patient for nephrostomy tube placement, stent exchange was revisited with urology and was to be performed 12/15 but ultimately deferred due to acute anemia and hypotension. This can be reassessed in the future, either as outpatient or if she continues to remain in the hospital but is unlikely to be able to be done over the weekend. Completed course of meropenem on 12/06. Became febrile again 12/07, meropenem was restarted 12/08 for 10 day course Anticipate Keflex/doxycycline for urine prophylaxis at discharge and if doing well Multiple discussions week of 12/15 with [facility] who did not accept patient for transfer for nephrostomy tube placement. Also discussed with [facility] hematology who recommended outpatient follow-up as below. Caspofungin dose adjusted perioperatively with history of Rachelle glabrata, anticipate conversion back to fluconazole if no surgical intervention planned. 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 -S/p Neupogen 480 mcg SQ daily x 3 days-final dose on 11/29 -S/p Procrit 40,000 units x 1 on 11/29 - Received platelets on 11/27, 12/01, 12/02, 12/04, 12/06, 12/15 - Received 2 units of PRBCs on 11/27 & 2 units on 12/06; 1 unit on 12/09. Transfusion threshold 7 mg/DL, platelets less than 10K or active bleeding Patient difficult blood bank transfusion, requires [place] blood bank supply Discussed with PSSean hagan, patient was recommended for outpatient follow-up with repeat bone marrow biopsy, was not accepted/recommended for transfer. Discussion with [facility]. While patient could have bone marrow biopsy repeated here, first attempt was suboptimal and suggested that this be done by tertiary care where she would follow-up. May consider pending clinical course 12/15 routine Hgb decreased to 6.7, platelets less than 10K. Platelets given, blood ordered but delayed in transit. In the morning/early afternoon patient p ersistently hypotensive with MAP approximately [id number], is fluid responsive but with continued anemia pending blood transfusion which will not be able to be performed until overnight at the earliest, likely until tomorrow morning. Retyping and screen was required. Hemoccult is negative, and patient has not had any clinical bleeding. Discussed with ICU provider, while patient is maintaining a borderline map at this time she is high risk with borderline perfusing pressures an earlier ICU admission this hospital stay and ongoing anemia. Patient was pending transfer to PCU for additional fluids/monitoring, on discussion will moved to ICU pending blood transfusion. Coags pending, fibrinogen pending (3) Coagulopathy: Plan: Coagulopathy / Thrombocytopenia - Admission labs concerning for INR 2.5 / PTT 77.2 / PLT 11 in setting of H&H 7.9 on arrival - notably worse from previous. ALso D-dimer 5000 - Suspected secondary to DIC from sepsis, in setting of MDS, liver disease with HCV history, poor nutrition (Vit K deficiency possibility) - S/p 2 units FFP and Vit K and coags normalized 12/04 - Received platelets on 11/27, 12/01, 12/02, 12/03, 12/15 -? Liver synthetic dysfunction versus nutritional deficiency with history of reported cirrhosis, treated hep C. Recent liver imaging with heterogenous texture but not cirrhotic in appearance. INR increased today to 1.4 with decreased hemoglobin, fibrinogen pending, vitamin K supplementation ordered. Hemoglobin uptrending on recheck, additional FFP deferred (4) Sepsis: Plan: Sepsis- with recurrent UTI. 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 ?hemoptysis or epistaxis - Known history of HCV-induced cirrhosis. Last EGD seems to be 10/2019, per Dr. Chavez's [facility] note, which did NOT reveal any esophageal varices; did show Z-line irregularities and esophageal plaques c/w candidiasis - No need for octreotide with no h/o known varices - Initially in setting of significant coagulopathy (INR 2.5, PTT 77.2, Plt 11) -- notably progressed since prior admission, coagulopathy improved after FFP and Vit K. - GI consulted: Defer EGD unless emergent/emergent specialist patient has not had any signs/symptoms of upper GI bleed or melena/blood per rectum. consider outpatient EGD. patient with high periprocedural risk, continue PPI converted to twice daily. Hemoccult negative. - Initially on PPI gtt now been converted to PPI po bid (6) Acute respiratory failure with hypoxia: Plan: Acute Hypoxic Respiratory Failure. 2/2 sepsis with concern for recent Covid, no other respiratory symptoms - Home O2 1-2L Resolved (7) AURORA (acute kidney injury): Plan: Acute Kidney Injury - Has history of CKD with creatinine baseline around 0.7 - 0.9. Cr at baseline as of 12/04. - With fluids and blood products, returned to baseline. - Follow serial labs (8) COVID-19: Plan: COVID-19 - Patient recently tested positive again for COVID-19, first time at the end of October. - During last hospitalization, was not hypoxic and therefore was not started on dexamethasone / remdesivir. - No steroids needed as her hypoxia is not from COVID. - As per infection control on 12/02, she can come off isolation precautions (9) Chronic kidney disease: Plan: CKD stage II-III (10) MDS (myelodysplastic syndrome): Plan: - As above. -Patient currently is transfusion dependent. - The patient has discussed her prognosis with multiple providers but does not want to pursue hospice care at this time. See goals discussion above - At this time we are only providing temporizing conditions with transfusions & IV abx. 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 (14) Urge and stress incontinence: Plan: - Continue oxybutynin (15) COPD (chronic obstructive pulmonary disease): Plan: With a history of smoking and lung cancer. - Nebs as needed (16) Hx of Clostridium difficile infection: Plan: History of C. difficile Infection, loose BM earlier in admission since improved - On chronic vancomycin suppressive therapy twice weekly - Increased vancomycin 125 Mg p.o. once daily while on antibiotics (17) Cirrhosis of liver: Plan: - Noted with a history of hep C that has been treated (18) SACHA (obstructive sleep apnea): Plan: Obstructive Sleep Apnea - Utilizes CPAP qHS -- utilize while here (19) Electrolyte imbalance: Plan: Monitor and replete prn. Plan: Disposition: See goals above. Pt wishes to ultimately return home, rodriguez snot wish for hospice but with poor progrnosis and multiple comorbidities limiting tx. Admission and Anticipated Discharge Date Admission Date: November 26, 2021 Subjective Morning Humalog labs with decrease less than 7. Patient is asymptomatic from this, denies lightheadedness, dizziness, chest pain, chest pressure, palpitations, increased fatigue, bright red blood per rectum, melena, bowel movement change, nausea, vomiting, hemoptysis. No clinical signs of bleeding, platelets also low. No new rash. Was awaiting stent exchange, likely to be deferred her procedure as an outpatient given high procedural risk. Patient has not been accepted at [facility]. Prior bone marrow biopsy with MDS, suboptimal. [facility] requested marrow repeat prior to outpatient f/u. Discussed goals of care with patient at the bedside. She reports an understanding of her medical condition, and that she would like to pursue treatments including ICU, pressors, CPR, and intubation if needed at this time. She understands that she is transfusion dependent, that she would likely need a repeat bone marrow biopsy for further hematology work-up and even at that she may not be a good candidate for transplant/treatment but she would like to pursue aggressive care at this time and follow-up on any options available to her. She does express understanding that many of these, especially CPR, would have a substantial compromise to her quality of life and surgical interventions could be futile to her given her level of medical fragility. She is able to verbalize this risk, but expresses she would want to pursue these at this time if there is a chance in extending the length of her life. Discussed with her family by phone Review of Systems Review of Systems: All systems reviewed & are unremarkable except as noted in Subjective Physical Exam Physical Exam: General: Chronically ill, cachectic appearing female. No acute distress. Oriented to name, place, and month. HEENT: Atraumatic, normocephalic. Visual acuity/hearing grossly intact Pulm: CTAB A&P. -wheezes, -rales, -rhonchi. Symmetrical chest rise. No increase in work of breathing. No respiratory distress. Cardiac: RRR, -mrg. Radial pulses intact and symmetrical. Abdominal: Nontender, nondistended, soft. BS present. Extremities: Moving all extremities. No petechiae. Results & Data Results & Data ([facility]) Vital Signs (Past 12 Hours) Vital Signs Temp Pulse Pulse Resp BP BP Pulse Ox 12/15/21 11:30 36.5 C 99 H 18 84/37 L 12/15/21 11:15 36.6 C 102 H 18 96/60 L 12/15/21 10:55 36.5 C 108 H 16 90/52 L 12/15/21 08:12 93 12/15/21 07:49 36.6 C 96 H 21 91/53 L 12/15/21 02:55 96 H 15 93 12/14/21 23:55 18 93 PG Care Time/CCT Total # of Minutes Spent Total Time Spent with Patient: Total time spent is greater than 50% in coordination of care (as documented) at patient's floor/unit and/or counseling patient: Coding Level of Care Code 61562 Subseq Hosp Care Lvl 3 Diagnoses UTI (urinary tract infection) N39.0 Pancytopenia D61.818 Sepsis A41.9 UGIB (upper gastrointestinal bleed) K92.2 Coagulopathy D68.9 Acute respiratory failure with hypoxia J96.01 AURORA (acute kidney injury) N17.9 COVID-19 U07.1 Chronic kidney disease N18.9 MDS (myelodysplastic syndrome) D46.9 Migraine G43.909 Celiac disease K90.0 Prothrombin [id number] mutation D68.52 Urge and stress incontinence N39.46 COPD (chronic obstructive pulmonary disease) J44.9 Hx of Clostridium difficile infection Z86.19 Cirrhosis of liver K74.60 SACHA (obstructive sleep apnea) G47.33 Electrolyte imbalance E87.8
[2021-12-15] MEDS ORDERED: SODIUM CHLORIDE 0.9% 1000ML 500 ML IV ONE (12:39)
[2021-12-15] MEDS: FLUTICASONE/VILANTEROL 100/25MCG 14 PUFFS/INHALER INH SCH (13:14)
[2021-12-15] MEDS: FERROUS SULFATE 325 MG TAB PO SCH (13:15)
[2021-12-15] MEDS: RASPBERRY SYRUP 5 ML UDP PO SCH (13:15)
[2021-12-15] MEDS: GABAPENTIN 400 MG CAP PO SCH (13:15)
[2021-12-15] MEDS: ACYCLOVIR 400 MG TAB PO SCH ×2 (13:15→21:11)
[2021-12-15] MEDS: CETIRIZINE HCL 10 MG TABLET PO SCH (13:15)
[2021-12-15] MEDS: PANTOprazole 40 MG TAB PO SCH ×2 (13:15→21:11)
[2021-12-15] MEDS: OXYBUTYNIN CHLORIDE XL 5 MG TABCR PO SCH (13:15)
[2021-12-15] MEDS: MAGNESIUM OXIDE 400 MG TAB PO SCH (13:15)
[2021-12-15] MEDS: FOLIC ACID 1 MG TAB PO SCH (13:15)
[2021-12-15] MEDS: ADVANCED PROBIOTIC 1250 MG CAPSULE PO SCH (13:15)
[2021-12-15] MEDS: TOPIRAMATE 100 MG TAB PO SCH ×2 (13:15→21:10)
[2021-12-15] MEDS: VANCOMYCIN HCL 125 MG/2.5ML SOLN PO SCH (13:16)
[2021-12-15] MEDS: POTASSIUM CHLORIDE / WTR 10 MEQ/100 ML PLCT IV SCH ×4 (13:48→18:20)
--- NOTE | 2021-12-15 16:40 | Critical Care Consultation ---
Date of Consultation December 15, 2021 Assessment & Plan (1) Electrolyte imbalance: (2) AURORA (acute kidney injury): (3) MDS (myelodysplastic syndrome): (4) Anemia: (5) Pancytopenia: (6) Chronic kidney disease: Patient is a 66-year-old female with extensive past medical history including transfusion dependent anemia secondary to myelodysplastic syndrome presenting to the ICU for hypotension and anemia. Currently patient is hemodynamically stable but may require pressors in the event that transfusion is not available and she continues to decline. Neuro -CAM ICU negative. PT/OT when clinically stable. Cardiovascular -Hypotensive at this time secondary to hypovolemia and myelodysplastic syndrome with poor red blood cell repletion. At this time mean arterial pressure is 73 with the latest recorded blood pressure. At this time no additional fluids to be given as her hemoglobin is 6.7 and this may cause dilution. Continue p.o. intake as tolerated. If mean arterial pressure falls below 65 consider adding phenylephrine as patient has 2 ultrasound placed peripheral IV sites. Last liter of fluid was given at 1300. Continue to monitor fluid status. Pulm -Patient is 91% on 2 L nasal cannula. Patient is on 1 to 2 L of oxygen at home at baseline. Previously had a bout of acute hypoxic respiratory failure at the initial part of admission but has since recovered. -Continue home CPAP for obstructive sleep apnea. GI/ Diet -Patient presented with concerns for upper GI bleeding which was a possible suspect for why she continues to have reducing hemoglobin. However, Hemoccult today was negative. Continue Protonix. Continue to support blood volume. Renal/ Electrolytes -Kidney function at baseline with the most recent creatinine at 1.18. She is hyponatremic with a sodium of 130 and hypokalemic with a potassium of 3.1. ICU electrolyte replacement as needed. Continue oral hydration. Endo -No history of diabetes. Blood sugars per unit protocol. Heme-Onc -Patient is transfusion dependent anemic secondary to myelodysplastic syndrome with pancytopenia. Continue to transfuse with a threshold of hemoglobin less than 7. Patient is currently at a hemoglobin of 6.7, however, the blood that we need is in [place] and will not be here until late this evening or most likely early tomorrow morning. Patient is difficult to transfuse secondary to findings of antibodies and need for screen blood from outside blood bank. Continue to monitor. Replete as able. Patient also has severe thrombocytopenia. Patient did receive 2 bags of platelets today due to platelet count being less than 10. After platelets, fibrinogen 457 today and INR at 1.4. Chemical DVT prophylaxis contraindicated at this time due to severe thrombocytopenia. Infectious disease -Given severe UTI and Covid resulting in sepsis, even though patient was to finish meropenem today, continue meropenem to not introduce the risk of septic shock in addition to patient's myelodysplastic syndrome. If pressure stabilized, especially after receiving packed red blood cells, will take off meropenem. Patient is on chronic doxycycline and cephalexin in the outpatient setting due to recurrent cellulitis, this is on hold while in hospital, but will be reinitiated whenever patient is discharged. DVT Prophylaxis: SCDs Diet: Gluten Free Code Status: Full Code Supervising Physician Co-Signing Physician Notes Dr. Cassidy was resident physician during care of patient. I separately evaluated patient for george portions of the history and the exam. I was present during the critical portion of medical decision making, and I discussed the case with the resident. I generally agree with the findings and plan. Transfusion dependent, critically ill due to acute anemia, awaiting blood from [place] patient has multiple inhibitors and antibodies. Discussed with patient and family at bedside regarding prognosis and concern for eventually being unresponsive to transfusion dependency. I have personally spent 35 minutes of critical care time in the direct management of this patient. This is a life/limb threatening event. This includes time spent evaluating patient, direct bedside care, chart review, placing orders, interpretation of diagnostic studies, discussion with consultants, patient, and/or family members regarding treatment decisions, as well as other required patient management activities. This time is exclusive of all separately billable procedures, and teaching time and separate from and in addition to any other critical care service time. History of Present Illness Attending Physician: Babar Phan MD History of Present Illness This is a 66-year-old female with an extensive past medical history including previous small cell lung cancer, myelodysplastic syndrome, pancytopenia, recent upper GI bleed, celiac disease, recent sepsis, transfusion dependent anemia, and coagulopathy who presented to the hospital on November 26, 2021 due to concern of hematemesis.She is a transfusion dependent anemic secondary to mild dysplastic syndrome. Because she has been here she has received multiple units of packed red blood cells. Due to her extensive history of blood transfusions, she has multiple antibodies that require very selective typing for packed red blood cells. None of the blood required for her transfusions are in-house and have a been ordered from [place]. Our team was consulted because she has been continuously hypotensive despite adequate fluid resuscitation as well as having a hemoglobin of 6.7 without any available blood to provide to the patient into the earliest being tomorrow morning from [place].Subjectively patient feels okay but is weak and fatigued, rightfully so. Patient has not had much of appetite and has not been eating much food per her history she has been able to tolerate drinking fluids. Otherwise remains asymptomatic and is not having any dizziness, chest pain, chest pressure, active bleeding, nausea, or vomiting. No reported fevers. No other complaints at this time. Discussed goals of care with patient and she understands that her mortality is high and that aggressive measures such as pressors and CPR could lead to a reduced quality of life. She feels that if it extends her life at all it will be worth it regardless of the risks. Allergies Allergy/AdvReac Type Severity Reaction Status Date / Time bee venom protein (honey bee) Allergy Severe Difficulty Verified 11/26/21 21:14 Breathing adhesive Allergy Intermediate Red torn Verified 11/26/21 21:14 skin Iodinated Contrast Media Allergy Intermediate Hives Verified 11/26/21 21:14 iodine Allergy Intermediate Hives Verified 11/26/21 21:14 levofloxacin Allergy Intermediate numbness/we Verified 11/26/21 21:14 akness pregabalin Allergy Intermediate fever?/?cher Verified 11/26/21 21:14 h strawberry Allergy Intermediate Hives Verified 11/26/21 21:14 Sulfa (Sulfonamide Allergy Intermediate Rash, hives Verified 11/26/21 21:14 Antibiotics) vancomycin Allergy Intermediate Bullous Verified 11/26/21 21:14 skin rash allopurinol Allergy Mild Rash Verified 11/26/21 21:14 ceftriaxone [From Rocephin] Allergy Mild Rash Verified 11/26/21 21:14 piperacillin [From Zosyn] Allergy Mild Rash Verified 11/26/21 21:14 tazobactam [From Zosyn] Allergy Mild Rash Verified 11/26/21 21:14 venlafaxine Allergy Unknown Unknown Verified 11/26/21 21:14 gluten AdvReac Severe Celiac Dz Verified 11/26/21 21:14 = GI symptoms propoxyphene AdvReac Intermediate 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 side Verified 11/26/21 21:14 effects Home Medications Medication Instructions Recorded Confirmed Type cetirizine 10 mg tablet (Zyrtec) 10 mg PO QAM 07/16/18 11/26/21 History folic acid 1 mg tablet 1 mg PO QAM 07/16/18 11/26/21 History magnesium oxide 400 mg PO QAM 07/16/18 11/26/21 History multivitamin 1 tab PO QAM 07/16/18 11/26/21 History vitamin B complex (B-Complex) 1 tab PO QAM 07/16/18 11/26/21 History calcium carbonate 600 mg-vitamin 1 tab PO QPM 11/26/18 11/26/21 History D3 20 mcg (800 unit) tablet (Caltrate with Vitamin D3) cyanocobalamin (vitamin B-12) 1,000 mcg IM MONTHLY 02/10/19 11/26/21 History 1,000 mcg/mL injection solution ferrous sulfate 325 mg (65 mg 325 mg PO QAM 02/10/19 11/26/21 History iron) tablet (iron) vitamin E 400 unit capsule 400 unit PO QAM 08/28/19 11/26/21 History Medical Marijuana 1 ml SUBLINGUAL UD PRN 06/27/20 11/26/21 History denosumab 60 mg/mL subcutaneous 60 mg SUBCUT .q 6 months ml 12/17/20 11/26/21 History syringe (Prolia) acetaminophen 500 mg capsule 500 mg PO QID PRN 01/24/21 11/26/21 History L.acidophilus-B.animalis-B.longum 1 cap PO QAM 02/03/21 11/26/21 History 15 billion cell capsule albuterol sulfate 90 mcg/actuation 2 puff INHALATION QID PRN #8.5 gm 04/22/21 11/26/21 Rx aerosol inhaler (ProAir HFA) metoprolol succinate 50 mg 25 mg PO QAM #45 tab 05/23/21 11/26/21 Rx tablet,extended release 24 hr Auto Titrating CPAP #1 ea 06/01/21 10/24/21 Rx CPAP Supplies #1 ea 06/01/21 10/24/21 Rx methocarbamol 750 mg tablet 750 mg PO BID PRN #60 tab 06/21/21 11/26/21 Rx rizatriptan 10 mg tablet 10 mg PO DAILY PRN #9 tab 06/21/21 11/26/21 Rx oxybutynin chloride 10 mg 10 mg PO QAM #90 tab 07/14/21 11/26/21 Rx tablet,extended release 24 hr mirabegron 50 mg tablet,extended 50 mg PO HS #90 tab 07/25/21 11/26/21 Rx release 24 hr (Myrbetriq) coQ10 (ubiquinol) 200 mg capsule 200 mg PO QAM 08/10/21 11/26/21 History doxycycline hyclate 100 mg capsule 100 mg PO QDD 08/10/21 11/26/21 History gabapentin 400 mg capsule 400 mg PO QAM 30 Days #30 cap 08/11/21 11/26/21 Rx (Neurontin) potassium chloride 20 mEq 20 meq PO QAM #30 tab 08/11/21 11/26/21 Rx tablet,extended release oxycodone 5 mg tablet 5 mg PO Q4H PRN #20 tab 08/18/21 11/26/21 Rx budesonide-formoterol HFA 80 2 puff INHALATION BID #3 inhaler 08/22/21 11/26/21 Rx mcg-4.5 mcg/actuation aerosol inhaler (Symbicort) clonazepam 1 mg tablet 0.5 mg PO HS #30 tab 08/22/21 11/26/21 Rx quetiapine 50 mg tablet (Seroquel) 50 mg PO HS #30 tab 08/22/21 11/26/21 Rx vprfyeiapn-pcgcklocqkjjq-qjgatntc 1 tab PO DAILY PRN 30 Days #12 tab 09/27/21 11/26/21 Rx 50 mg-325 mg-40 mg tablet (Esgic) sertraline 50 mg tablet (Zoloft) 50 mg PO HS #30 tab 10/03/21 11/26/21 Rx cephalexin 500 mg capsule 500 mg PO QDD 10/12/21 11/26/21 History triamcinolone acetonide 0.025 % 1 applic TOPICAL BID PRN #80 g 10/17/21 11/26/21 Rx topical cream diphenhydramine HCl 25 mg capsule 25 mg PO Q6H PRN 10/31/21 11/26/21 History (Benadryl) acyclovir 400 mg tablet 400 mg PO AMHS 11/17/21 11/26/21 History topiramate 100 mg tablet (Topamax) 100 mg PO QAM 11/17/21 11/26/21 History topiramate 200 mg tablet (Topamax) 200 mg PO HS 11/17/21 11/26/21 History vancomycin 125 mg capsule 125 mg PO 2XWK 11/17/21 11/26/21 History ergocalciferol (vitamin D2) 1,250 50,000 unit PO WK 11/26/21 11/26/21 History mcg (50,000 unit) capsule phenazopyridine 200 mg tablet 200 mg PO BID PRN 11/26/21 11/26/21 History (Pyridium) Patient History Medical History Acute UTI (urinary tract infection) AURORA (acute kidney injury) Asthma Celiac disease Cellulitis Recurrent B/L LE - on prophylactic abx (Follows with Dr. Nielson). on chronic Cephalexin and Doxy Chronic back pain Chronic kidney disease Stage III > follows Dr. Fleming Chronic obstructive pulmonary disease Emphysema Cirrhosis of liver Hx of Hep C with cirrhosis COVID-19 Dehydration Depression Fever History of blood transfusion History of recurrent UTI (urinary tract infection) Hx MRSA infection several yrs ago Hx of cancer of lung s/p radiation (2012), recurrence (2019 in [facility]) s/p radiation- follows with heme/onc Hx of Clostridium difficile infection on Vanco 2x/week for prophylaxis Hx of deep venous thrombosis LLE (1976) Hx of hepatitis C 2013 > "resolved" Hx of non-Hodgkin's lymphoma s/p treatment in 2013 Hydronephrosis b/l chronic hydronephrosis requiring routine stent exchanges Hyperlipidemia Migraine Mood disorder Myelodysplasia (myelodysplastic syndrome) Diagnosed 07/09/21 by bone marrow biopsy. Being treated with Azacitidine and Procrit injections. 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 Pagan Thrombocytopenia Chronic (platelet baseline in the 40-70s over the past few months) Venous stasis dermatitis Surgical History H/O bursectomy Right knee History of bone marrow biopsy History of bronchoscopy History of carpal tunnel release Left History of cystoscopy Multiple Bilateral Retrograde Pyelogram (05/27/21): [facility] at [facility] History of esophagogastroduodenoscopy (EGD) History of liver biopsy History of tooth extraction History of ureter stent MULTIPLE Hx of bladder repair surgery FOR PROLAPSE Hx of colonoscopy Hx of tonsillectomy Hx of tubal ligation Family History Unknown Heart disease Hypertension Mother Psoriasis Diabetes Social History Smoking Status: Former smoker Tobacco Type: Cigarettes Cigarettes Per Day: Quit 02/2011; Second Hand Exposure: No; Hx Alcohol Use: No Hx Substance Use: No Preferred Language: Thai Communication Ability: Unable Visual Impairment: No Limitations Hearing Ability: Normal Transportation Consultant Required: No Beliefs That Will Affect Care: None marital status: / Current Living Situation: Family Current Living Situation Comment: Son and son's girlfriend current occupational status: retired How many Children do You have: 1 Feels Safe at Home: Yes Assistive Devices: Oxygen - Continuous Review of Systems Review of Systems: All systems reviewed & are unremarkable except as noted in HPI & below Physical Exam Constitutional: + ill appearing, + frail appearing, cooperative and comfortable; no acute distress Eyes: PERRL, conjunctivae normal, anicteric sclerae Neck: trachea midline, no thyromegaly Respiratory: normal respiratory effort, lungs clear to auscultation Cardiovascular: RRR, no murmur, no edema Gastrointestinal (Abdomen): Inspection/Auscultation: abdomen normal to inspection; abdomen not distended and no abdominal edema Percussion/Palpation: abdomen soft Rectal Exam: heme negative stool Musculoskeletal: Head/Neck/Chest: normocephalic and head atraumatic Skin: no rashes, warm and dry Neurologic: moves all extremities Psychiatric: A+Ox3, euthymic affect Results & Data Results & Data ([facility]) Vital Signs (Past 12 Hours) Vital Signs Temp Pulse Pulse Resp BP BP Pulse Ox 12/15/21 15:41 36.6 C 91 H 18 103/68 12/15/21 15:14 36.7 C 88 92/52 L 12/15/21 15:11 36.7 C 89 95/60 L 12/15/21 15:00 36.6 C 87 16 89/48 L 12/15/21 14:37 36.7 C 89 18 79/41 L 12/15/21 13:30 36.5 C 100 H 18 92/53 L 93 12/15/21 12:30 36.5 C 102 H 18 82/42 L 12/15/21 11:30 36.5 C 99 H 18 84/37 L 12/15/21 11:15 36.6 C 102 H 18 96/60 L 12/15/21 10:55 36.5 C 108 H 16 90/52 L 12/15/21 08:12 93 12/15/21 07:49 36.6 C 96 H 21 91/53 L Resident Activity Tracking Resident Involvement: Resident Care Provided Care Provided: Adult Hospital Medicine (1) Anemia Anemia type: bone marrow failure Bone marrow failure anemia type: other bone marrow failure Qualified Code(s): D61.89 - Other specified aplastic anemias and other bone marrow failure syndromes
[2021-12-15] MEDS ORDERED: CASPOFUNGIN 50 MG in SODIUM CHLORIDE 0.9% 250 ML IV SCH (17:00)
[2021-12-15] MEDS: CASPOFUNGIN 35 MG in SODIUM CHLORIDE 0.9% 250 ML IV SCH (17:33)
[2021-12-15 17:50] LABS: INR 1.4 (0.9-1.1); Partial Thromboplastin Ratio 1.7; Partial Thromboplastin Time 44.4 Seconds (21.0-31.0); Prothrombin Time 13.5 Seconds (9.0-12.0)
[2021-12-15 18:02] LABS: Hematocrit (blood only) 20.8 % (37-47); Mean Corpuscular Hemoglobin 27.8 pg (25-34); Mean Corpuscular Hgb Conc 33.7 g/dL (32-36); Mean Corpuscular Volume 82.5 fL (80-100); Nucleated RBC # (auto) 0.02 K/uL (0-0); Nucleated RBC % (auto) 3.8 %; Platelet Count 9 K/uL (130-400); RDW Standard Deviation 51.2 fL (36.4-46.3); Red Blood Count 2.52 M/uL (4.2-5.4); White Blood Count 0.62 K/uL (4.8-10.8)
[2021-12-15 18:05] LABS: Eosinophils # (auto) 0.01 K/uL (0-0.5); Eosinophils % (auto) 1.6 %; Immature Granulocytes # (auto) 0.04 K/uL (0.00-0.02); Immature Granulocytes % (auto) 6.5 %; Lymphocytes # (auto) 0.34 K/uL (1.2-3.4); Lymphocytes % (auto) 54.8 %; Microcytosis Present; Monocytes # (auto) 0.12 K/uL (0.11-0.59); Monocytes % (auto) 19.4 %; Neutrophils # (auto) 0.11 K/uL (1.4-6.5); Neutrophils % (auto) 17.7 %; Platelet Estimate SIGNIFIC DECREASED (Normal); Poikilocytosis Present
[2021-12-15] MEDS ORDERED: PHYTONADIONE 5 MG TAB PO STA (18:27)
[2021-12-15 19:16] LABS: Fibrinogen 457 mg/dl (184-400)
[2021-12-15] MEDS: PHENAZOPYRIDINE HCL 200 MG TAB PO PRN (20:28)
[2021-12-15] MEDS: METHOCARBAMOL 750 MG TABLET PO PRN (20:28)
[2021-12-15] MEDS: QUEtiapine FUMARATE 25 MG TABLET PO SCH (21:09)
[2021-12-15] MEDS: MIRABEGRON ER 25 MG TAB PO SCH (21:10)
[2021-12-15] MEDS: SERTRALINE HCL 50 MG TABLET PO SCH (21:10)
[2021-12-15] MEDS: clonazePAM 0.5 MG TAB PO SCH (22:28)
[2021-12-16] MEDS: ACETAMINOPHEN 500 MG TAB PO PRN ×2 (01:13→17:27)
--- NOTE | 2021-12-16 01:22 | Communication Note ---
Date of Service: December 16, 2021 Was notified by the patient's RN that she had developed significant fever of 39 C approximately 30 minutes into transfusion of RBCs. Transfusion was i mmediately stopped and has been sent to blood bank. Patient had been pretreated with diphenhydramine. Patient was examined thoroughly and otherwise the patient is asymptomatic and appears she has had febrile nonhemolytic reaction. Transfusion reaction lab work pending. Repeat CBC pending. Patient does have multiple antibodies from prior transfusions and has blood ordered from [place]. Understand that likelihood of transfusion reaction is high will need further pretreatment prior to additional transfusions. We will continue to monitor closely. Coding Level of Care Code None
[2021-12-16 01:40] LABS: Blood Urine 3+ (Negative); RBC Urine Automated >30 /hpf (0-4)
[2021-12-16 02:10] LABS: Hematocrit (blood only) 19.7 % (37-47); Hemoglobin 6.6 g/dL (12.0-16.0); Mean Corpuscular Hemoglobin 27.8 pg (25-34); Mean Corpuscular Hgb Conc 33.5 g/dL (32-36); Mean Corpuscular Volume 83.1 fL (80-100); Nucleated RBC # (auto) 0.02 K/uL (0-0); Nucleated RBC % (auto) 3.4 %; Platelet Count 9 K/uL (130-400); RDW Coefficient of Variation 16.7 % (11.5-14.5); RDW Standard Deviation 49.1 fL (36.4-46.3); Red Blood Count 2.37 M/uL (4.2-5.4); White Blood Count 0.57 K/uL (4.8-10.8)
[2021-12-16] MEDS ORDERED: ALBUMIN 5% 250 ML IV ONE ×2 (02:20→02:50)
[2021-12-16 02:25] LABS: BUN Creatinine Ratio 17.1 (10-20); Calcium 7.4 mg/dl (8.5-10.1); Creatinine Clr Calc Pharmacy 35.7 ml/min; Est GFR (African American) 56.2 ml/min; Est GFR (Non-African American) 48.5 ml/min; Potassium 3.8 mmol/L (3.5-5.1)
[2021-12-16 02:32] LABS: Giant Platelets 2+; Lymphocytes # (auto) 0.32 K/uL (1.2-3.4); Lymphocytes % (auto) 56.1 %; Monocytes # (auto) 0.11 K/uL (0.11-0.59); Monocytes % (auto) 19.3 %; Neutrophils # (auto) 0.14 K/uL (1.4-6.5); Neutrophils % (auto) 24.6 %; Platelet Estimate SIGNIFIC DECREASED (Normal); Poikilocytosis Present
[2021-12-16] MEDS ORDERED: LACTATED RINGER'S 1,000 ML IV ONE (04:41)
[2021-12-16 05:18] LABS: BUN Creatinine Ratio 16.9 (10-20); Calcium 7.6 mg/dl (8.5-10.1); Creatinine Clr Calc Pharmacy 35.4 ml/min; Est GFR (African American) 55.7 ml/min; Hematocrit (blood only) 19.7 % (37-47); Hemoglobin 6.6 g/dL (12.0-16.0); Magnesium 1.5 mg/dl (1.7-2.4); Mean Corpuscular Hemoglobin 27.6 pg (25-34); Mean Corpuscular Hgb Conc 33.5 g/dL (32-36); Mean Corpuscular Volume 82.4 fL (80-100); Phosphorus 5.4 mg/dl (2.5-4.9); Platelet Count 5 K/uL (130-400); Potassium 3.4 mmol/L (3.5-5.1); RDW Coefficient of Variation 16.5 % (11.5-14.5); RDW Standard Deviation 49.2 fL (36.4-46.3); Red Blood Count 2.39 M/uL (4.2-5.4); White Blood Count 0.69 K/uL (4.8-10.8)
[2021-12-16] MEDS: MEROPENEM 500 MG in SYRINGE 0 ML IV SCH ×3 (05:25→20:49)
[2021-12-16] MEDS ORDERED: POTASSIUM CHLORIDE 20 MEQ/15 ML UDC PO STA (05:30)
[2021-12-16] MEDS: MAGNESIUM SULFATE / D5W 1 GM/100 ML BAG IV SCH ×3 (05:39→09:22)
[2021-12-16 06:01] LABS: Fibrinogen 415 mg/dl (184-400); INR 1.4 (0.9-1.1)
[2021-12-16] MEDS ORDERED: STAT IV Infusion **Titration per Protocol STA (06:58)
[2021-12-16] MEDS ORDERED: NOREPINEPHRINE/D5W 8 MG/508 ML BAG IV SCH (07:00)
[2021-12-16] MEDS ORDERED: SODIUM CHLORIDE 0.9% 250 ML IV PRN (07:39)
--- NOTE | 2021-12-16 08:42 | Billing Data ---
Date of Service December 15, 2021 Coding Level of Care Code Critical Care 1st - mins
--- NOTE | 2021-12-16 08:49 | Billing Data ---
Date of Service December 16, 2021 Coding Level of Care Code Critical Care 1st - mins
[2021-12-16] MEDS: FLUTICASONE/VILANTEROL 100/25MCG 14 PUFFS/INHALER INH SCH (09:23)
--- NOTE | 2021-12-16 09:31 | Critical Care Progress Note ---
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 Currently patient is hemodynamically stable but may require pressors in the event that transfusion is not available and she continues to decline. Neuro -CAM ICU negative. PT/OT when clinically stable. Cardiovascular -Hypotensive at this time secondary to hypovolemia and myelodysplastic syndrome with poor red blood cell repletion. At this time mean arterial pressure is 73 with the latest recorded blood pressure. At this time no additional fluids to be given as her hemoglobin is 6.7 and this may cause dilution. Continue p.o. intake as tolerated. Levophed started overnight. Continue Levophed with a map goal of 65 or greater. Pulm -Patient is 90% on 2 L nasal cannula. Patient is on 1 to 2 L of oxygen at home at baseline. Previously had a bout of acute hypoxic respiratory failure at the initial part of admission but has since recovered. -Continue home CPAP for obstructive sleep apnea. GI/ Diet -Patient presented with concerns for upper GI bleeding which was a possible suspect for why she continues to have reducing hemoglobin. However, Hemoccult yesterday was negative. Continue Protonix. Continue to support blood volume. Renal/ Electrolytes -Kidney function at baseline with the most recent creatinine at 1.18. She is hyponatremic with a sodium of 131 and hypokalemic with a potassium of 3.4. ICU electrolyte replacement as needed. Mag at 1.5. Calcium 7.6. Continue oral hydration. Endo -No history of diabetes. Blood sugars per unit protocol. Heme-Onc -Patient is transfusion dependent anemic secondary to myelodysplastic syndrome with pancytopenia. Continue to transfuse with a threshold of hemoglobin less than 7. Patient is currently at a hemoglobin of 6.7, however, the blood that we need is in [place] and will not be here until late this evening or most likely early tomorrow morning. Patient is difficult to transfuse secondary to findings of antibodies and need for screen blood from outside blood bank. Continue to monitor. Replete as able. Patient also has severe thrombocytopenia. Platelet count was 5 this morning, ordered 1 unit of platelets. Chemical DVT prophylaxis contraindicated at this time due to severe thrombocytopenia. Infectious disease -Given severe UTI and Covid resulting in sepsis, even though patient was to finish meropenem yesterday, continue meropenem to not introduce the risk of septic shock in addition to patient's myelodysplastic syndrome. If pressure sta bilized, especially after receiving packed red blood cells, will take off meropenem. Patient is on chronic doxycycline and cephalexin in the outpatient setting due to recurrent cellulitis, this is on hold while in hospital, but will be reinitiated whenever patient is discharged. DVT Prophylaxis: SCDs Diet: Gluten Free Code Status: Full Code Admission and Anticipated Discharge Date Admission Date: November 26, 2021 Supervising Physician Co-Signing Physician Notes Dr. Cassidy was resident physician during care of patient. I separately evaluated patient for george portions of the history and the exam. I was present during the critical portion of medical decision making, and I discussed the case with the resident. I generally agree with the findings and plan. Hypotension secondary to anemia. Awaiting blood from [place]. Had a transfusion reaction last night. Poor prognosis continues to be critically ill. On PPI. I have personally spent 35 minutes of critical care time in the direct management of this patient. This is a life/limb threatening event. This includes time spent evaluating patient, direct bedside care, chart review, placing orders, interpretation of diagnostic studies, discussion with consultants, patient, and/or family members regarding treatment decisions, as well as other required patient management activities. This time is exclusive of all separately billable procedures, and teaching time and separate from and in addition to any other critical care service time. Subjective Patient seen at bedside this morning. Overnight patient did have blood transfusion that resulted in afebrile, nonhemolytic reaction which was treated with Benadryl. Transfusion was discontinued senior care through due to the reaction. At this time we are waiting for 2 additional units to come from [place] which have been expedited. Patient otherwise unchanged from yesterday subjectively. Nothing else to report. Review of Systems Review of Systems: All systems reviewed & are unremarkable except as noted in HPI & below Physical Exam Constitutional: + ill appearing, + frail appearing, cooperative and comfortable; no acute distress Eyes: PERRL, conjunctivae normal, anicteric sclerae Neck: trachea midline, no thyromegaly Respiratory: normal respiratory effort, lungs clear to auscultation Cardiovascular: RRR, no murmur, no edema Gastrointestinal (Abdomen): Inspection/Auscultation: abdomen normal to inspection; abdomen not distended and no abdominal edema Percussion/Palpation: abdomen soft Rectal Exam: heme negative stool Musculoskeletal: Head/Neck/Chest: normocephalic and head atraumatic Skin: no rashes, warm and dry Neurologic: moves all extremities Psychiatric: A+Ox3, euthymic affect Results & Data Results & Data ([facility]) Vital Signs (Past 12 Hours) Vital Signs Temp Pulse Pulse Resp BP BP Pulse Ox 12/16/21 09:20 36 C L 81 14 103/61 95 12/16/21 08:00 78 16 89/54 L 96 12/16/21 07:53 35.9 C L 12/16/21 07:30 81 18 81/45 L 95 12/16/21 07:00 82 27 H 73/42 L 94 12/16/21 06:57 82 24 77/40 L 94 12/16/21 06:04 37.8 C H 100/51 L 12/16/21 05:30 91 H 18 89/43 L 95 12/16/21 05:15 94 H 16 87/41 L 94 12/16/21 05:03 96 H 12/16/21 05:00 97 H 17 75/42 L 94 12/16/21 04:45 100 H 21 86/43 L 94 12/16/21 04:42 100 H 18 93 12/16/21 04:31 102 H 20 78/42 L 93 12/16/21 04:30 103 H 19 80/40 L 92 12/16/21 04:15 104 H 22 85/43 L 92 12/16/21 04:00 107 H 20 85/44 L 92 12/16/21 03:45 110 H 23 88/44 L 91 12/16/21 03:30 112 H 23 89/48 L 90 12/16/21 03:15 115 H 24 91 12/16/21 03:00 118 H 21 81/38 L 91 12/16/21 02:45 119 H 23 83/36 L 91 12/16/21 02:30 121 H 25 H 81/37 L 88 L 12/16/21 02:18 38.3 C H 12/16/21 02:15 120 H 24 80/39 L 88 L 12/16/21 02:08 117 H 24 87/35 L 94 12/16/21 02:05 118 H 17 79/39 L 96 12/16/21 02:00 117 H 22 77/30 L 96 12/16/21 01:30 126 H 21 88/43 L 90 12/16/21 01:25 125 H 26 H 103/51 L 93 12/16/21 01:20 127 H 16 109/57 L 93 12/16/21 01:15 39.4 C H 129 H 129 H 26 H 96/54 L 100/79 92 12/16/21 01:10 131 H 26 H 100/79 93 12/16/21 01:05 124 H 28 H 95/43 L 96 12/16/21 01:00 124 H 28 H 87/53 L 96 12/16/21 00:59 39.1 C H 124 H 15 92/64 L 94 12/16/21 00:55 127 H 20 88/44 L 92 12/16/21 00:50 126 H 19 91/44 L 92 12/16/21 00:45 127 H 23 82/44 L 91 12/16/21 00:44 37.5 C 124 H 16 93/44 L 94 12/16/21 00:40 125 H 21 93/42 L 93 12/16/21 00:36 127 H 19 81/48 L 90 12/16/21 00:30 123 H 19 97/49 L 92 12/16/21 00:25 37.6 C H 127 H 15 90/55 L 91 12/16/21 00:06 127 H 26 H 90/55 L 93 12/16/21 00:04 129 H 17 93 12/16/21 00:02 130 H 17 93 12/16/21 00:01 120 H 12/16/21 00:00 129 H 17 85 L 12/15/21 23:30 127 H 36 H 105/58 L 95 12/15/21 23:12 126 H 39 H 101/62 95 12/15/21 23:05 128 H 25 H 90/62 L 89 L 12/15/21 23:04 37.2 C 118 H 16 101/76 94 12/15/21 23:00 117 H 31 H 101/63 89 L 12/15/21 22:55 121 H 30 H 104/70 88 L 12/15/21 22:54 37.1 C 120 H 16 104/70 94 12/15/21 22:50 120 H 19 116/82 71 L 12/15/21 22:45 122 H 22 137/86 83 L 12/15/21 22:40 122 H 25 H 130/57 L 93 12/15/21 22:36 37.1 C 119 H 16 116/60 94 12/15/21 22:35 122 H 19 116/60 76 L 12/15/21 22:34 121 H 24 114/57 L 80 L 12/15/21 22:31 126 H 26 H 82 L 12/15/21 22:25 120 H 26 H 120/58 L 86 L 12/15/21 22:20 120 H 29 H 134/63 87 L 12/15/21 22:10 120 H 29 H 116/68 76 L 12/15/21 22:08 120 H 20 133/97 93 12/15/21 22:06 37.4 C 116 H 16 124/74 94 12/15/21 22:00 124 H 19 85 L 12/15/21 21:51 37.4 C 115 H 16 123/61 95 12/15/21 21:32 37.3 C 115 H 30 H 123/61 91 (1) Anemia Anemia type: bone marrow failure Bone marrow failure anemia type: other bone marrow failure Qualified Code(s): D61.89 - Other specified aplastic anemias and other bone marrow failure syndromes
[2021-12-16] MEDS ORDERED: fentaNYL citrate 100 MCG/2 ML VIAL ONE (09:45)
[2021-12-16] MEDS ORDERED: MIDAZOLAM HCL 1 MG/ML 2ML VIAL ONE (09:45)
[2021-12-16] MEDS ORDERED: PROPOFOL IV EMULSION 10 MG/ML 20 ML VIAL IV ONE (09:45)
[2021-12-16] MEDS ORDERED: ONDANSETRON INJ 2 MG/ML 2 ML VIAL ONE (09:45)
[2021-12-16] MEDS ORDERED: LIDOCAINE 2% 2 ML VIAL/AMP(20MG/ML) INFIL ONE (09:45)
--- NOTE | 2021-12-16 10:03 | Anesthesiology Consultation ---
Date of Service December 16, 2021 Assessment & Plan (1) Encounter for pre-operative examination: Chart Review Chart Review: Acceptable Risk for Surgery and Patient NOT seen in Pre Admission Testing Consults Requested none History Surgery Operation Date: 12/15/21 11:55 Proposed Procedures p Cystoscopy Bilateral Retrograde Pyelograms and Stent Exchange - Luis Cervantes DO Operation Date: 12/16/21 18:05 Proposed Procedures p Cystocsopy with Bilateral Stent Exchanges - Luis Cervantes DO Height/Weight Height: 5 ft 1 in Weight: 50.5 kg Allergies Allergy/AdvReac Type Severity Reaction Status Date / Time bee venom protein (honey bee) Allergy Severe Difficulty Verified 11/26/21 21:14 Breathing adhesive Allergy Intermediate Red torn Verified 11/26/21 21:14 skin Iodinated Contrast Media Allergy Intermediate Hives Verified 11/26/21 21:14 iodine Allergy Intermediate Hives Verified 11/26/21 21:14 levofloxacin Allergy Intermediate numbness/we Verified 11/26/21 21:14 akness pregabalin Allergy Intermediate fever?/?cher Verified 11/26/21 21:14 h strawberry Allergy Intermediate Hives Verified 11/26/21 21:14 Sulfa (Sulfonamide Allergy Intermediate Rash, hives Verified 11/26/21 21:14 Antibiotics) vancomycin Allergy Intermediate Bullous Verified 11/26/21 21:14 skin rash allopurinol Allergy Mild Rash Verified 11/26/21 21:14 ceftriaxone [From Rocephin] Allergy Mild Rash Verified 11/26/21 21:14 piperacillin [From Zosyn] Allergy Mild Rash Verified 11/26/21 21:14 tazobactam [From Zosyn] Allergy Mild Rash Verified 11/26/21 21:14 venlafaxine Allergy Unknown Unknown Verified 11/26/21 21:14 gluten AdvReac Severe Celiac Dz Verified 11/26/21 21:14 = GI symptoms propoxyphene AdvReac Intermediate [employer] side Verified 11/26/21 21:14 effects Medications Home Medications Medication Instructions Recorded Confirmed Last Taken cetirizine 10 mg tablet (Zyrtec) 10 mg PO QAM 07/16/18 11/26/21 11/26/21 folic acid 1 mg tablet 1 mg PO QAM 07/16/18 11/26/21 11/26/21 magnesium oxide 400 mg PO QAM 09/11/26/21 11/26/21 multivitamin 1 tab PO QAM 07/16/18 11/26/21 11/26/21 vitamin B complex (B-Complex) 1 tab PO QAM 07/16/18 11/26/21 11/26/21 calcium carbonate 600 mg-vitamin 1 tab PO QPM 11/26/18 11/26/21 11/25/21 D3 20 mcg (800 unit) tablet (Caltrate with Vitamin D3) cyanocobalamin (vitamin B-12) 1,000 mcg IM MONTHLY 02/10/19 11/26/21 10/06/21 1,000 mcg/mL injection solution ferrous sulfate 325 mg (65 mg 325 mg PO QAM 02/10/19 11/26/21 11/26/21 iron) tablet (iron) vitamin E 400 unit capsule 400 unit PO QAM 08/28/19 11/26/21 11/26/21 Medical Marijuana 1 ml SUBLINGUAL UD PRN 06/27/20 11/26/21 10/12/21 denosumab 60 mg/mL subcutaneous 60 mg SUBCUT .q 6 months ml 12/17/20 11/26/21 07/15/21 syringe (Prolia) acetaminophen 500 mg capsule 500 mg PO QID PRN 01/24/21 11/26/21 10/31/21 05:45 L.acidophilus-B.animalis-B.longum 1 cap PO QAM 02/03/21 11/26/21 11/26/21 15 billion cell capsule albuterol sulfate 90 mcg/actuation 2 puff INHALATION QID PRN #8.5 gm 04/22/21 11/26/21 05/30/21 07:00 aerosol inhaler (ProAir HFA) metoprolol succinate 50 mg 25 mg PO QAM #45 tab 05/23/21 11/26/21 11/26/21 tablet,extended release 24 hr Auto Titrating CPAP #1 ea 06/01/21 10/24/21 Unknown CPAP Supplies #1 ea 06/01/21 10/24/21 Unknown methocarbamol 750 mg tablet 750 mg PO BID PRN #60 tab 06/21/21 11/26/21 10/12/21 rizatriptan 10 mg tablet 10 mg PO DAILY PRN #9 tab 06/21/21 11/26/21 Unknown oxybutynin chloride 10 mg 10 mg PO QAM #90 tab 07/14/21 11/26/21 11/26/21 tablet,extended release 24 hr mirabegron 50 mg tablet,extended 50 mg PO HS #90 tab 07/25/21 11/26/21 11/25/21 release 24 hr (Myrbetriq) coQ10 (ubiquinol) 200 mg capsule 200 mg PO QAM 08/10/21 11/26/21 11/26/21 doxycycline hyclate 100 mg capsule 100 mg PO QDD 08/10/21 11/26/21 11/25/21 gabapentin 400 mg capsule 400 mg PO QAM 30 Days #30 cap 08/11/21 11/26/21 (Neurontin) potassium chloride 20 mEq 20 meq PO QAM #30 tab 08/11/21 11/26/21 11/26/21 tablet,extended release oxycodone 5 mg tablet 5 mg PO Q4H PRN #20 tab 08/18/21 11/26/21 10/12/21 budesonide-formoterol HFA 80 2 puff INHALATION BID #3 inhaler 08/22/21 11/26/21 11/26/21 08:00 mcg-4.5 mcg/actuation aerosol inhaler (Symbicort) clonazepam 1 mg tablet 0.5 mg PO HS #30 tab 08/22/21 11/26/21 11/25/21 quetiapine 50 mg tablet (Seroquel) 50 mg PO HS #30 tab 08/22/21 11/26/21 11/25/21 zzjzjnijnh-jclnzoyzypzkt-ukfpigbc 1 tab PO DAILY PRN 30 Days #12 tab 09/27/21 11/26/21 Unknown 50 mg-325 mg-40 mg tablet (Esgic) sertraline 50 mg tablet (Zoloft) 50 mg PO HS #30 tab 10/03/21 11/26/21 11/25/21 cephalexin 500 mg capsule 500 mg PO QDD 10/12/21 11/26/21 11/25/21 triamcinolone acetonide 0.025 % 1 applic TOPICAL BID PRN #80 g 10/17/21 11/26/21 Unknown topical cream diphenhydramine HCl 25 mg capsule 25 mg PO Q6H PRN 10/31/21 11/26/21 10/31/21 05:45 (Benadryl) acyclovir 400 mg tablet 400 mg PO AMHS 11/17/21 11/26/21 11/26/21 08:00 topiramate 100 mg tablet (Topamax) 100 mg PO QAM 11/17/21 11/26/21 11/26/21 topiramate 200 mg tablet (Topamax) 200 mg PO HS 11/17/21 11/26/21 11/25/21 vancomycin 125 mg capsule 125 mg PO 2XWK 11/17/21 11/26/21 Unknown ergocalciferol (vitamin D2) 1,250 50,000 unit PO WK 11/26/21 11/26/21 11/26/21 mcg (50,000 unit) capsule phenazopyridine 200 mg tablet 200 mg PO BID PRN 11/26/21 11/26/21 Unknown (Pyridium) Active Medications Generic Name Dose Route Start Last Admin Trade Name Freq PRN Reason Stop Dose Admin Acetaminophen 1,000 mg 12/07/21 23:17 12/16/21 01:13 Acetaminophen 500 Mg Tab PO 01/06/22 23:16 1,000 mg Q8H PRN Administration fever, pain Acetaminophen/Butalbital/Caffeine 1 tab 11/27/21 02:26 12/14/21 22:19 Butalbital/Acetamin/Caffeine Tab PO 12/27/21 02:25 1 tab DAILY PRN Administration HEADACHES Acyclovir 400 mg 11/27/21 09:00 12/15/21 21:11 Acyclovir 400 Mg Tab PO 12/30/21 08:59 400 mg BID BIRDIE Administration Cetirizine HCl 10 mg 11/27/21 09:00 12/15/21 13:15 Cetirizine Hcl 10 Mg Tablet PO 12/27/21 08:59 10 mg QAM BIRDIE Administration Clonazepam 0.5 mg 11/27/21 21:00 12/15/21 22:28 Clonazepam 0.5 Mg Tab PO 12/27/21 20:59 0.5 mg HS BIRDIE Administration Diphenhydramine HCl 25 mg 11/27/21 02:26 12/15/21 21:04 Diphenhydramine Capsule 25 Mg Cap PO 12/27/21 02:25 25 mg Q6H PRN Administration Allergic Symptoms Ferrous Sulfate 325 mg 11/27/21 09:00 12/15/21 13:15 Ferrous Sulfate 325 Mg Tab PO 12/27/21 08:59 325 mg QAM BIRDIE Administration Fluticasone/Vilanterol 1 puffs 11/27/21 09:00 12/16/21 09:23 Fluticasone/Vilanterol 100/25mcg 14 Puffs/Inhaler INH 12/27/21 08:59 1 puffs DAILY BIRDIE Administration Folic Acid 1 mg 11/27/21 09:00 12/15/21 13:15 Folic Acid 1 Mg Tab PO 12/27/21 08:59 1 mg QAM BIRDIE Administration Gabapentin 400 mg 11/27/21 09:00 12/15/21 13:15 Gabapentin 400 Mg Cap PO 12/27/21 08:59 400 mg QAM BIRDIE Administration Meropenem 500 mg/ Syringe 10 mls @ 2 mls/min 12/09/21 14:00 12/16/21 05:25 IV 12/19/21 13:59 2 mls/min Q8H BIRDIE Administration Protocol Caspofungin 35 mg/ Sodium 257 mls @ 260 mls/hr 12/15/21 17:00 12/15/21 20:42 Chloride IV 01/14/22 16:59 Infused Q24H BIRDIE Infusion Protocol Magnesium Sulfate/Dextrose 1 gm in 100 mls @ 50 mls/hr 12/16/21 05:30 12/16/21 09:22 Magnesium Sulfate / D5w IV 12/16/21 11:29 50 mls/hr Q2H BIRDIE Administration Norepinephrine Bitartrate 8 mg in 508 mls @ 13.468 mls/hr 12/16/21 07:00 12/16/21 09:05 Levophed/D5w IV 01/15/22 06:59 0.07 mcg/kg/min .Q24H BIRDIE 13.5 mls/hr Titration Protocol 0.07 MCG/KG/MIN Sodium Chloride 250 mls @ 15 mls/hr 12/16/21 07:39 12/16/21 09:23 Nss IV 12/16/21 17:39 15 mls/hr .[id number] PRN Administration For Transfusion Lactobacillus Acidophilus 1 cap 11/27/21 09:00 12/15/21 13:15 Advanced Probiotic 1250 Mg Capsule PO 12/27/21 08:59 1 cap QAM BIRDIE Administration Magnesium Oxide 400 mg 11/27/21 09:00 12/15/21 13:15 Magnesium Oxide 400 Mg Tab PO 12/27/21 08:59 400 mg QAM BIRDIE Administration Methocarbamol 750 mg 11/27/21 02:26 12/15/21 20:28 Methocarbamol 750 Mg Tablet PO 12/27/21 02:25 750 mg BID PRN Administration Pain Metoprolol Succinate 25 mg 11/27/21 09:00 12/15/21 08:13 Metoprolol Succ 25mg Ext Rel Tab PO 12/27/21 08:59 Not Given QAM BIRDIE Mirabegron 50 mg 11/27/21 21:00 12/15/21 21:10 Mirabegron Er 25 Mg Tab PO 12/27/21 20:59 50 mg HS BIRDIE Administration Ondansetron HCl 4 mg 11/26/21 22:30 12/13/21 18:08 Ondansetron Inj 2 Mg/Ml 2 Ml Vial IV 12/26/21 22:29 4 mg Q6H PRN Administration Nausea Oxybutynin Chloride 10 mg 11/27/21 09:00 12/15/21 13:15 Oxybutynin Chloride Xl 5 Mg Tabcr PO 12/27/21 08:59 10 mg QAM BIRDIE Administration Oxycodone HCl 5 mg 12/11/21 02:46 12/15/21 22:30 Oxycodone Hcl Ir 5 Mg Tab (Immediate Release) PO 12/25/21 02:45 5 mg Q4H PRN Administration Pain Pantoprazole Sodium 40 mg 11/28/21 21:00 12/15/21 21:11 Pantoprazole 40 Mg Tab PO 12/28/21 20:59 40 mg BID BIRDIE Administration Phenazopyridine HCl 200 mg 11/27/21 02:26 12/15/21 20:28 Phenazopyridine Hcl 200 Mg Tab PO 12/27/21 02:25 200 mg BID PRN Administration BLADDER PAIN Quetiapine Fumarate 50 mg 11/27/21 21:00 12/15/21 21:09 Quetiapine Fumarate 25 Mg Tablet PO 12/27/21 20:59 50 mg HS BIRDIE Administration Raspberry 5 ml 12/01/21 09:00 12/15/21 13:15 Raspberry Syrup 5 Ml Udp PO 12/31/21 08:59 5 ml DAILY BIRDIE Administration Sertraline HCl 50 mg 11/27/21 21:00 12/15/21 21:10 Sertraline Hcl 50 Mg Tablet PO 12/27/21 20:59 50 mg HS BIRDIE Administration Topiramate 200 mg 11/27/21 21:00 12/15/21 21:10 Topiramate 100 Mg Tab PO 12/27/21 20:59 200 mg HS BIRDIE Administration Topiramate 100 mg 11/27/21 09:00 12/15/21 13:15 Topiramate 100 Mg Tab PO 12/27/21 08:59 100 mg QAM BIRDIE Administration Vancomycin HCl 125 mg 12/01/21 09:00 12/15/21 13:16 Vancomycin Hcl 125 Mg/2.5ml Soln PO 12/31/21 08:59 125 mg DAILY BIRDIE Administration Past Medical History Medical History Acute UTI (urinary tract infection) [place] (acute kidney injury) Asthma Celiac disease Cellulitis Recurrent B/L LE - on prophylactic abx (Follows with Dr. Nielson). on chronic Cephalexin and Doxy Chronic back pain Chronic kidney disease Stage III > follows Dr. Fleming Chronic obstructive pulmonary disease Emphysema Cirrhosis of liver Hx of Hep C with cirrhosis COVID-19 Dehydration Depression Fever History of blood transfusion History of recurrent UTI (urinary tract infection) Hx MRSA infection several yrs ago Hx of cancer of lung s/p radiation (2012), recurrence (2019 in [facility]) s/p radiation- follows with heme/onc Hx of Clostridium difficile infection on Vanco 2x/week for prophylaxis Hx of deep venous thrombosis LLE (1976) Hx of hepatitis C 2013 > "resolved" Hx of non-Hodgkin's lymphoma s/p treatment in 2013 Hydronephrosis b/l chronic hydronephrosis requiring routine stent exchanges Hyperlipidemia Migraine Mood disorder Myelodysplasia (myelodysplastic syndrome) Diagnosed 07/09/21 by bone marrow biopsy. Being treated with Azacitidine and Procrit injections. 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 Pagan Thrombocytopenia Chronic (platelet baseline in the 40-70s over the past few months) Venous stasis dermatitis Date of Service: December 16, 2021 Was notified by the patient's RN that she had developed significant fever of 39 C approximately 30 minutes into transfusion of RBCs. Transfusion was immediately stopped and has been sent to blood bank. Patient had been pretreated with diphenhydramine. Patient was examined thoroughly and otherwise the patient is asymptomatic and appears she has had febrile nonhemolytic reaction. Transfusion reaction lab work pending. Repeat CBC pending. Patient does have multiple antibodies from prior transfusions and has blood ordered from [facility]. Understand that likelihood of transfusion reaction is high will need further pretreatment prior to additional transfusions. We will continue to monitor closely. History of Hydronephrosis with Ureteral Stent Placement. - history of ureteral stents placed in 07/2021 and subsequent exchange every 3 months, with some delays due to acute medical issues - chronic obstruction hydronephrosis with candidal UTI. - Unfortunately, had associated UTIs since that time-currently with ESBL Klebsiella -Urology consulted about stent exchange - Spoke with urology on 12/05. Recommend that she be evaluated by tertiary care center for stent removal and nephrostomy tubes. This was discussed with tertiary care who did not accept patient for nephrostomy tube placement, stent exchange was revisited with urology andwas to be performed 12/15 but ultimately deferred due to acute anemia and hypotension. This can be reassessed in the future, either as outpatient or if she continues to remain in the hospital but is unlikely to be able to be done over the weekend. Completed course of meropenem on 12/06. Became febrile again 12/07, meropenem was restarted 12/08 for 10 day course Anticipate Keflex/doxycycline for urine prophylaxis at discharge and if doing well Multiple discussions week of 12/15 with [facility] who did not accept patient for transfer for nephrostomy tube placement. Also discussed with [facility] hematology who recommended outpatient follow-up as below. Caspofungin dose adjusted perioperatively with history of Rachelle glabrata, anticipate conversion back to fluconazole if no surgical intervention planned. 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 -S/p Neupogen 480 mcg SQ daily x 3 days-final dose on 11/29 -S/p Procrit 40,000 units x 1 on 11/29 - Received platelets on 11/27, 12/01, 12/02, 12/04, 12/06, 12/15 - Received 2 units of PRBCs on 11/27 & 2 units on 12/06; 1 unit on 12/09. Transfusion threshold 7 mg/DL, platelets less than 10K or active bleeding Patient difficult blood bank transfusion, requires [facility] blood bank supply Discussed with [facility], patient was recommended for outpatient follow-up with repeat bone marrow biopsy, was not accepted/recommended for transfer. Discussion with [facility]. While patient could have bone marrow biopsy repeated here, first attempt was suboptimal and suggested that this be done by tertiary care where she would follow-up. May consider pending clinical course 12/15 routine Hgb decreased to 6.7, platelets less than 10K. Platelets given, blood ordered but delayed in transit. In the morning/early afternoon patient persistently hypotensive with MAP approximately [id number], is fluid responsive but with continued anemia pending blood transfusion which will not be able to be performed until overnight at the earliest, likely until tomorrow morning. Retyping and screen was required. Hemoccult is negative, and patient has not had any clinical bleeding. Discussed with ICU provider, while patient is maintaining a borderline map at this time she is high risk with borderline perfusing pressures an earlier ICU admission this hospital stay and ongoing anemia. Patient was pending transfer to PCU for additional fluids/monitoring, on discussion will moved to ICU pending blood transfusion. Coags pending, fibrinogen pending (3) Coagulopathy: Plan: Coagulopathy / Thrombocytopenia - Admission labs concerning for INR 2.5 / PTT 77.2 / PLT 11 in setting of H&H 7.9 on arrival - notably worse from previous. ALso D-dimer 5000 - Suspected secondary to DIC from sepsis, in setting of MDS, liver disease with HCV history, poor nutrition (Vit K deficiency possibility) - S/p 2 units FFP and Vit K and coags normalized 12/04 - Received platelets on 11/27, 12/01, 12/02, 12/03, 12/15 -? Liver synthetic dysfunction versus nutritional deficiency with history of reported cirrhosis, treated hep C. Recent liver imaging with heterogenous texture but not cirrhotic in appearance. INR increased today to 1.4 with decreased hemoglobin, fibrinogen pending, vitamin K supplementation ordered. Hemoglobin uptrending on recheck, additional FFP deferred Past Family History Family History Unknown Heart disease Hypertension Mother Psoriasis Diabetes Past Surgical History Surgical History H/O bursectomy Right knee History of bone marrow biopsy History of bronchoscopy History of carpal tunnel release Left History of cystoscopy Multiple Bilateral Retrograde Pyelogram (05/27/21): MAC at [facility] History of esophagogastroduodenoscopy (EGD) History of liver biopsy History of tooth extraction History of ureter stent MULTIPLE Hx of bladder repair surgery FOR PROLAPSE Hx of colonoscopy Hx of tonsillectomy Hx of tubal ligation Social History Smoking Status: Former smoker tobacco type: cigarettes Smoking cigarettes per day: Quit 02/2011 Hx Alcohol Use: No Hx Substance Use: No substance use type: marijuana Substance Use Type Other:: medical marijuana card Last Used Substance: Just Prior to Arrival Last Used Substance Other:: medical [facility] Physical Exam Vital Signs Last Vital Signs Temp 36 C L 12/16/21 09:20 Pulse 81 12/16/21 09:20 Resp 14 12/16/21 09:20 BP 103/61 12/16/21 09:20 Pulse Ox 95 12/16/21 09:20 Testing Laboratory Results 12/16/21 04:36 12/16/21 04:36 PT 14.0 Seconds (9.0-12.0) H 12/16/21 04:48 INR 1.4 (0.9-1.1) H 12/16/21 04:48 APTT 44.4 Seconds (21.0-31.0) H 12/15/21 17:10 Urine Color Dark Yellow 12/08/21 11:45 Urine Appearance Cloudy (Clear) A 12/08/21 11:45 Urine pH 6.5 (4.5-7.5) 12/08/21 11:45 Ur Specific [place] 1.012 (1.000-1.030) 12/08/21 11:45 Urine Protein 2+ (Negative) H 12/08/21 11:45 Urine Glucose (UA) Negative (Negative) 12/08/21 11:45 Urine Ketones Negative (Negative) 12/08/21 11:45 Urine Nitrite Positive (Negative) A 12/08/21 11:45 Ur Leukocyte Esterase 2+ (Negative) H 12/08/21 11:45 Urine WBC (Auto) >30 /hpf (0-5) H 12/08/21 11:45 Urine RBC (Auto) >30 /hpf (0-4) H 12/16/21 01:20 U Hyaline Cast (Auto) 5-10 /lpf (0-5) H 12/08/21 11:45 U Epithel Cells (Auto) 5-10 /lpf (0-5) H 12/08/21 11:45 Urine Bacteria (Auto) 1+ (Negative) H 12/08/21 11:45 Urine RBC >30 /hpf (0-4) H 11/27/21 Unknown Urine WBC >30 /hpf (0-5) H 11/27/21 Unknown Ur Epithelial Cells 0-5 /lpf (0-5) 11/27/21 Unknown Blood Type B Positive 12/15/21 09:37 Antibody Screen POSITIVE A 12/15/21 09:37 12/14/21 Unknown Urine Culture - Preliminary Urine,Clean Catch No growth - Less than 1,000 colonies/mL, Final report to follow. 12/07/21 23:55 Aerobic Blood Culture - Final Blood No growth in Aerobic bottle after 5 days. Anaerobic Blood Culture - Final No growth in Anaerobic bottle after 5 days. 12/08/21 00:04 Aerobic Blood Culture - Final Blood No growth in Aerobic bottle after 5 days. Anaerobic Blood Culture - Final No growth in Anaerobic bottle after 5 days. 12/08/21 11:45 Urine Culture - Final Urine,Clean Catch No growth - less than 1,000 colonies/mL. 11/27/21 08:05 Aerobic Blood Culture - Final Blood No growth in Aerobic bottle after 5 days. Anaerobic Blood Culture - Final No growth in Anaerobic bottle after 5 days. 11/27/21 02:31 Aerobic Blood Culture - Final Blood No growth in Aerobic bottle after 5 days. Anaerobic Blood Culture - Final No growth in Anaerobic bottle after 5 days. 11/27/21 00:52 Urine Culture - Final Urine,Clean Catch Klebsiella pneumoniae ESBL Electrocardiogram Date: 12/07/21 Sinus tachycardia, rate 113 bpm Otherwise normal ECG When compared with ECG of 26-NOV-2021 21:25, HR has increased by 35 bpm Otherwise no significant change Confirmed by Collin Deng ([id number]) on 12/08/2021 9:01:47 AM Chest X-Ray Date: 11/27/21 IMPRESSION: COPD with interstitial fibrotic changes present. Deeper inspiration on the current study with resolution of left basilar opacity which most likely represented atelectasis. Stable right upper lobe scarring. Otherwise, no acute chest disease. Echocardiogram Date: 05/10/21 LV systolic function is normal No regional wall motion abnormalities noted EF 55-60% Mild MR Compared with study of 02/13/18, no significant change
[2021-12-16] MEDS ORDERED: KETAMINE 50 MG/5 ML SYRINGE ONE (10:14)
[2021-12-16] MEDS: ADVANCED PROBIOTIC 1250 MG CAPSULE PO SCH (10:20)
[2021-12-16] MEDS: ACYCLOVIR 400 MG TAB PO SCH ×2 (10:20→20:49)
[2021-12-16] MEDS: GABAPENTIN 400 MG CAP PO SCH (10:20)
[2021-12-16] MEDS: RASPBERRY SYRUP 5 ML UDP PO SCH (10:21)
[2021-12-16] MEDS: PANTOprazole 40 MG TAB PO SCH ×2 (10:21→20:52)
[2021-12-16] MEDS: VANCOMYCIN HCL 125 MG/2.5ML SOLN PO SCH (10:21)
[2021-12-16] MEDS: FERROUS SULFATE 325 MG TAB PO SCH (10:22)
[2021-12-16] MEDS: TOPIRAMATE 100 MG TAB PO SCH ×2 (10:22→20:51)
[2021-12-16] MEDS: FOLIC ACID 1 MG TAB PO SCH (10:22)
[2021-12-16] MEDS: OXYBUTYNIN CHLORIDE XL 5 MG TABCR PO SCH ×2 (10:23→18:37)
[2021-12-16] MEDS: CETIRIZINE HCL 10 MG TABLET PO SCH ×2 (10:23→18:33)
[2021-12-16] MEDS: MAGNESIUM OXIDE 400 MG TAB PO SCH (10:23)
--- NOTE | 2021-12-16 11:23 | Urology Progress Note ---
Date of Service December 16, 2021 Assessment & Plan (1) Obstructive uropathy: (2) S/P ureteral stent placement: Plan: 66yo F with an extensive past medical history admitted with significant coagulopathy and thrombocytopenia on arrival and found to have GI bleed, Covid positive, and sepsis. Urology initially consulted for sepsis/UTI in the setting of chronic indwelling bilateral ureteral stents. However, given her multiple acute issues including Covid-19 infection on admission, no intervention was indicated at that time. Discussion of proceeding with stent exchange when medically stable verses nephrostomy tubes was considered. - Plan of care reviewed with Dr. Cervantes. - Pt with chronic b/l hydronephrosis managed with chronic b/l ureteral stents - Last exchanged 09/26/[address] Cervantes. - Multiple discussions between urology/Dr. Cervantes and hospital team. - Pt was not accepted for transfer for nephrostomy tube placement. - Plan was to proceed with bilateral stent exchange when medically optimized. - B/L stent exchange for yesterday was cancelled due to critical labs and need for transfusion - awaiting from [facility]. - She was transferred to ICU yesterday for hemodynamic monitoring - started on pressors overnight. - She became febrile during transfusion, Tmax 39.4, which was stopped. Afebrile this AM. - Unfortunately, Hgb remains 6.6, Platelets 5 this AM - currently with 1 unit of platelets transfusing this AM. - Still awaiting blood from [facility]. - Continue to trend labs. - UCx 11/27 with Klebsiella ESBL - Treated with course of IV Meropenem.Repeat UCx 12/08 negative.Repeat UCx 12/14 no growth. - Blood cultures 11/27 and repeat 12/07 negative. - Currently on IV Meropenem and Caspofungin. - Continue supportive care and acute management per primary team. - As patient is high risk with chronic severe pancytopenia and thrombocytopenia, we will hold on surgical intervention until patient is stable and medically optimized for surgery or if deterioration in clinical status such as sepsis. - If patient remains hospitalized, will try to schedule for next available time for stent exchange presuming she is stable.Otherwise, will set up intervention as an outpatient. - Please contact us with any questions, concerns, or changes in patient status. Admission and Anticipated Discharge Date Admission Date: November 26, 2021 Subjective Patient seen at bedside this AM in ICU. Awake, alert and resting in bed. Pt transferred to ICU yesterday for hemodynamic monitoring. She was started on Levophed overnight for hypotension. Febrile overnight, Tmax 39.4, occurred during transfusion of PRBCs, transfusion stopped chcf through per notes. Subjectively doing about the same. Notes discomfort across lower abdomen, unchanged. Voiding without difficulty, no dysuria or hematuria. No nausea or vomiting. Denies fever or chills at present. Currently has 1 unit of platelets infusing. NPO at this time. Review of Systems Constitutional: as per Subjective / HPI Gastrointestinal: as per Subjective / HPI Genitourinary: as per Subjective / HPI Physical Exam Constitutional: + thin and + frail appearing; no acute distress Chronically ill appearing Respiratory: no respiratory distress and no labored breathing Cardiovascular: Extremities: no pedal edema Gastrointestinal (Abdomen): Inspection/Auscultation: abdomen normal to inspection; abdomen not distended Percussion/Palpation: + abdomen tender (mildly tender to palpation across lower abdomen) and abdomen soft; no guarding Musculoskeletal: Head/Neck/Chest: normocephalic and head atraumatic Skin: Warm and dry. No visible rashes to exposed skin areas. Neurologic: moves all extremities and awake Psychiatric: Orientation: alert, oriented x 3 and cooperative Results & Data ([facility]) Vital Signs (Past 12 Hours) Vital Signs Temp Pulse Pulse Resp BP BP Pulse Ox 12/16/21 09:20 36 C L 81 14 103/61 95 12/16/21 09:07 87 18 91/55 L 84 L 12/16/21 09:01 85 20 81/51 L 87 L 12/16/21 09:00 87 27 H 88 L 12/16/21 08:45 80 20 105/61 99 12/16/21 08:30 79 15 90/53 L 96 12/16/21 08:15 75 15 89/53 L 96 12/16/21 08:05 77 18 96 12/16/21 08:00 78 16 89/54 L 96 12/16/21 07:53 35.9 C L 12/16/21 07:30 81 18 81/45 L 95 12/16/21 07:00 82 27 H 73/42 L 94 12/16/21 06:57 82 24 77/40 L 94 12/16/21 06:04 37.8 C H 100/51 L 12/16/21 05:30 91 H 18 89/43 L 95 12/16/21 05:15 94 H 16 87/41 L 94 12/16/21 05:03 96 H 12/16/21 05:00 97 H 17 75/42 L 94 12/16/21 04:45 100 H 21 86/43 L 94 12/16/21 04:42 100 H 18 93 12/16/21 04:31 102 H 20 78/42 L 93 12/16/21 04:30 103 H 19 80/40 L 92 12/16/21 04:15 104 H 22 85/43 L 92 12/16/21 04:00 107 H 20 85/44 L 92 12/16/21 03:45 110 H 23 88/44 L 91 12/16/21 03:30 112 H 23 89/48 L 90 12/16/21 03:15 115 H 24 91 12/16/21 03:00 118 H 21 81/38 L 91 12/16/21 02:45 119 H 23 83/36 L 91 12/16/21 02:30 121 H 25 H 81/37 L 88 L 12/16/21 02:18 38.3 C H 12/16/21 02:15 120 H 24 80/39 L 88 L 12/16/21 02:08 117 H 24 87/35 L 94 12/16/21 02:05 118 H 17 79/39 L 96 12/16/21 02:00 117 H 22 77/30 L 96 12/16/21 01:30 126 H 21 88/43 L 90 12/16/21 01:25 125 H 26 H 103/51 L 93 12/16/21 01:20 127 H 16 109/57 L 93 12/16/21 01:15 39.4 C H 129 H 129 H 26 H 96/54 L 100/79 92 12/16/21 01:10 131 H 26 H 100/79 93 12/16/21 01:05 124 H 28 H 95/43 L 96 12/16/21 01:00 124 H 28 H 87/53 L 96 12/16/21 00:59 39.1 C H 124 H 15 92/64 L 94 12/16/21 00:55 127 H 20 88/44 L 92 12/16/21 00:50 126 H 19 91/44 L 92 12/16/21 00:45 127 H 23 82/44 L 91 12/16/21 00:44 37.5 C 124 H 16 93/44 L 94 12/16/21 00:40 125 H 21 93/42 L 93 12/16/21 00:36 127 H 19 81/48 L 90 12/16/21 00:30 123 H 19 97/49 L 92 12/16/21 00:25 37.6 C H 127 H 15 90/55 L 91 12/16/21 00:06 127 H 26 H 90/55 L 93 12/16/21 00:04 129 H 17 93 12/16/21 00:02 130 H 17 93 12/16/21 00:01 120 H 12/16/21 00:00 129 H 17 85 L 12/15/21 23:30 127 H 36 H 105/58 L 95 PG Care Time/CCT Total # of Minutes Spent Total Time Spent with Patient: Total time spent is greater than 50% in coordination of care (as documented) at patient's floor/unit and/or counseling patient: Coding Level of Care Code 42284 Subseq Hosp Care Lvl 2 Diagnoses Obstructive uropathy N13.9 S/P ureteral stent placement Z96.0
[2021-12-16] MEDS: diphenhydrAMINE Capsule 25 MG CAP PO PRN (17:27)
[2021-12-16] MEDS: CASPOFUNGIN 35 MG in SODIUM CHLORIDE 0.9% 250 ML IV SCH (17:27)
--- NOTE | 2021-12-16 17:28 | Hospitalist Progress Note ---
Date of Service December 16, 2021 Assessment & Plan (1) UTI (urinary tract infection): Plan: 12/15: Goals of care discussion: Discussed goals of care with patient at the bedside. She reports an understanding of her medical condition, and that she would like to pursue treatments including ICU, pressors, CPR, and intubation if needed at this time. She understands that she is transfusion dependent, that she would likely need a repeat bone marrow biopsy for further hematology work-up and even at that she may not be a good candidate for transplant/treatment but she would like to pursue aggressive care at this time and follow-up on any options available to her. She does express understanding that many of these, especially CPR, would have a substantial compromise to her quality of life and surgical interventions could be futile to her given her level of medical fragility. She is able to verbalize this risk, but expresses she would want to pursue these at this time if there is a chance in extending the length of her life. Discussed with her family by phone, who expressed that while they feel that she may benefit from a palliative approach History of Hydronephrosis with Ureteral Stent Placement. - history of ureteral stents placed in 07/2021 and subsequent exchange every 3 months, with some delays due to acute medical issues - chronic obstruction hydronephrosis with candidal UTI. - Unfortunately, had associated UTIs since that time-currently with ESBL Klebsiella -Urology consulted about stent exchange - Spoke with urology on 12/05. Recommend that she be evaluated by tertiary care center for stent removal and nephrostomy tubes. This was discussed with tertiary care who did not accept patient for nephrostomy tube placement, stent exchange was revisited with urology and was to be performed 12/15 but ultimately deferred due to acute anemia and hypotension. This can be reassessed in the future, either as outpatient or if she continues to remain in the hospital but is unlikely to be able to be done over the weekend. Completed course of meropenem on 12/06. Became febrile again 12/07, meropenem was restarted 12/08 for 10 day course Anticipate Keflex/doxycycline for urine prophylaxis at discharge and if doing well Multiple discussions week of 12/15 with [facility] who did not accept patient for transfer for nephrostomy tube placement. Also discussed with [facility] hematology who recommended outpatient follow-up as below. Caspofungin dose adjusted perioperatively with history of Rachelle glabrata, anticipate conversion back to fluconazole if no surgical intervention planned. 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 -S/p Neupogen 480 mcg SQ daily x 3 days-final dose on 11/29 -S/p Procrit 40,000 units x 1 on 11/29 - Received platelets on 11/27, 12/01, 12/02, 12/04, 12/06, 12/15 - Received 2 units of PRBCs on 11/27 & 2 units on 12/06; 1 unit on 12/09. Transfusion threshold 7 mg/DL, platelets less than 10K or active bleeding Patient difficult blood bank transfusion, requires [facility] blood bank supply Discussed with SHOLA hagan, patient was recommended for outpatient follow-up with repeat bone marrow biopsy, was not accepted/recommended for transfer. Discussion with HOLLIS CONTRERAS. While patient could have bone marrow biopsy repeated here, first attempt was suboptimal and suggested that this be done by tertiary care where she would follow-up. May consider pending clinical course 12/15 routine Hgb decreased to 6.7, platelets less than 10K. Platelets given, blood ordered but delayed in transit. In the morning/early afternoon patient persistently hypotensive with MAP approximately 5861, is fluid responsive but with continued anemia pending blood transfusion which will not be able to be performed until overnight at the earliest, likely until tomorrow morning. Retyping and screen was required. Hemoccult is negative, and patient has not had any clinical bleeding. Discussed with ICU provider, while patient is maintaining a borderline map at this time she is high risk with borderline perfusing pressures an earlier ICU admission this hospital stay and ongoing anemia. Patient was pending transfer to PCU for additional fluids/monitoring, on discussion will moved to ICU pending blood transfusion. Coags pending, fibrinogen pending 12/16: Afebrile nonhemolytic reaction with blood transfusion, received Benadryl. Additional transfusion x2 units pending. Receiving additional platelets today for platelet count remaining below 10. Hemoccult was negative, concern for potential dark stool with repeat pending. (3) Coagulopathy: Plan: Coagulopathy / Thrombocytopenia - Admission labs concerning for INR 2.5 / PTT 77.2 / PLT 11 in setting of H&H 7.9 on arrival - notably worse from previous. ALso D-dimer 5000 - Suspected secondary to DIC from sepsis, in setting of MDS, liver disease with HCV history, poor nutrition (Vit K deficiency possibility) - S/p 2 units FFP and Vit K and coags normalized 12/04 - Received platelets on 11/27, 12/01, 12/02, 12/03, 12/15, 12/16 -? Liver synthetic dysfunction versus nutritional deficiency with history of reported cirrhosis, treated hep C. Recent liver imaging with heterogenous texture but not cirrhotic in appearance. INR remains 1.4 with decreased hemoglobin, fibrinogen has not decreased, received vitamin K supplementation (4) Sepsis: Plan: Sepsis- with recurrent UTI. 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 ?hemoptysis or epistaxis - Known history of HCV-induced cirrhosis. Last EGD seems to be 10/2019, per Dr. Chavez's [facility] note, which did NOT reveal any esophageal varices; did show Z-line irregularities and esophageal plaques c/w candidiasis - No need for octreotide with no h/o known varices - Initially in setting of significant coagulopathy (INR 2.5, PTT 77.2, Plt 11) -- notably progressed since prior admission, coagulopathy improved after FFP and Vit K. - GI consulted: Defer EGD unless emergent/emergent specialist patient has not had any signs/symptoms of upper GI bleed or melena/blood per rectum. consider outpatient EGD. patient with high periprocedural risk, continue PPI converted to twice daily. Hemoccult negative. - Initially on PPI gtt now been converted to PPI po bid (6) Acute respiratory failure with hypoxia: Plan: Acute Hypoxic Respiratory Failure. 2/2 sepsis with concern for recent Covid, no other respiratory symptoms - Home O2 1-2L Resolved (7) AURORA (acute kidney injury): Plan: Acute Kidney Injury - Has history of CKD with creatinine baseline around 0.7 - 0.9. Cr at baseline as of 12/04. - With fluids and blood products, returned to baseline. - Follow serial labs (8) COVID-19: Plan: COVID-19 - Patient recently tested positive again for COVID-19, first time at the end of October. - During last hospitalization, was not hypoxic and therefore was not started on dexamethasone / remdesivir. - No steroids needed as her hypoxia is not from COVID. - As per infection control on 12/02, she can come off isolation precautions (9) Chronic kidney disease: Plan: CKD stage II-III (10) MDS (myelodysplastic syndrome): Plan: - As above. -Patient currently is transfusion dependent. - The patient has discussed her prognosis with multiple providers but does not want to pursue hospice care at this time. See goals discussion above - At this time we are only providing temporizing conditions with transfusions & IV abx. 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 (14) Urge and stress incontinence: Plan: - Continue oxybutynin (15) COPD (chronic obstructive pulmonary disease): Plan: With a history of smoking and lung cancer. - Nebs as needed (16) Hx of Clostridium difficile infection: Plan: History of C. difficile Infection, loose BM earlier in admission since improved - On chronic vancomycin suppressive therapy twice weekly - Increased vancomycin 125 Mg p.o. once daily while on antibiotics (17) Cirrhosis of liver: Plan: - Noted with a history of hep C that has been treated (18) SACHA (obstructive sleep apnea): Plan: Obstructive Sleep Apnea - Utilizes CPAP qHS -- utilize while here (19) Electrolyte imbalance: Plan: Monitor and replete prn. Plan: Disposition: See goals above. Pt wishes to ultimately return home, rodriguez snot wish for hospice but with poor progrnosis and multiple comorbidities limiting tx. Admission and Anticipated Discharge Date Admission Date: November 26, 2021 Subjective Seen at bedside Blood transfusion overnight, nonhemolytic reaction treated with Benadryl Continues to be anemic, Hemoccult was negative pending repeat for report of potential melenic stool Receiving additional platelets today Denies chest pain, fever, chills, sweats, shortness of breath, difficulty breathing, abdominal pain Stent exchange to be deferred Review of Systems Review of Systems: All systems reviewed & are unremarkable except as noted in Subjective Physical Exam Physical Exam: General: Chronically ill, cachectic appearing female. No acute distress. Oriented to name, place, and month. HEENT: Atraumatic, normocephalic. Visual acuity/hearing grossly intact Pulm: CTAB A&P. -wheezes, -rales, -rhonchi. Symmetrical chest rise. No increase in work of breathing. No respiratory distress. Cardiac: RRR, -mrg. Radial pulses intact and symmetrical. Abdominal: Nontender, nondistended, soft. BS present. Extremities: Moving all extremities. No petechiae. Results & Data Results & Data ([facility]) Vital Signs (Past 12 Hours) Vital Signs Temp Pulse Resp BP BP Pulse Ox 12/16/21 16:39 37.5 C 111 H 22 120/83 92 12/16/21 15:00 37.1 C 110 H 24 128/74 98 12/16/21 14:30 37 C 99 H 21 121/75 99 12/16/21 14:15 37 C 104 H 22 143/65 H 97 12/16/21 14:08 36.6 C 100 H 19 116/73 98 12/16/21 13:44 36.6 C 104 H 23 116/73 98 12/16/21 11:21 36.2 C L 93 H 19 113/65 98 12/16/21 10:21 36.2 C L 93 H 19 108/65 88 L 12/16/21 09:51 36 C L 83 18 111/61 94 12/16/21 09:36 36 C L 80 15 99/61 L 93 12/16/21 09:20 36 C L 81 14 103/61 95 12/16/21 09:07 87 18 91/55 L 84 L 12/16/21 09:01 85 20 81/51 L 87 L 12/16/21 09:00 87 27 H 88 L 12/16/21 08:45 80 20 105/61 99 12/16/21 08:30 79 15 90/53 L 96 12/16/21 08:15 75 15 89/53 L 96 12/16/21 08:05 77 18 96 12/16/21 08:00 78 16 89/54 L 96 12/16/21 07:53 35.9 C L 12/16/21 07:30 81 18 81/45 L 95 12/16/21 07:00 82 27 H 73/42 L 94 12/16/21 06:57 82 24 77/40 L 94 12/16/21 06:04 37.8 C H 100/51 L 12/16/21 05:30 91 H 18 89/43 L 95 PG Care Time/CCT Total # of Minutes Spent Total Time Spent with Patient: Total time spent is greater than 50% in coordination of care (as documented) at patient's floor/unit and/or counseling patient: Coding Level of Care Code 70526 Subseq Hosp Care Lvl 2 Diagnoses UTI (urinary tract infection) N39.0 Pancytopenia D61.818 Coagulopathy D68.9 Sepsis A41.9 UGIB (upper gastrointestinal bleed) K92.2 Acute respiratory failure with hypoxia J96.01 AURORA (acute kidney injury) N17.9 COVID-19 U07.1 Chronic kidney disease N18.9 MDS (myelodysplastic syndrome) D46.9 Migraine G43.909 Celiac disease K90.0 Prothrombin [id number] mutation D68.52 Urge and stress incontinence N39.46 COPD (chronic obstructive pulmonary disease) J44.9 Hx of Clostridium difficile infection Z86.19 Cirrhosis of liver K74.60 SACHA (obstructive sleep apnea) G47.33 Electrolyte imbalance E87.8
[2021-12-16] MEDS: clonazePAM 0.5 MG TAB PO SCH (20:49)
[2021-12-16] MEDS: METHOCARBAMOL 750 MG TABLET PO PRN (20:50)
[2021-12-16] MEDS: QUEtiapine FUMARATE 25 MG TABLET PO SCH (20:51)
[2021-12-16] MEDS: MIRABEGRON ER 25 MG TAB PO SCH (20:52)
[2021-12-16] MEDS: SERTRALINE HCL 50 MG TABLET PO SCH (20:52)
[2021-12-16] MEDS: oxyCODONE HCL IR 5 MG TAB (IMMEDIATE RELEASE) PO PRN (22:57)
[2021-12-17 02:24] LABS: Hematocrit (blood only) 29.3 % (37-47); Hemoglobin 9.8 g/dL (12.0-16.0)
[2021-12-17] MEDS: MEROPENEM 500 MG in SYRINGE 0 ML IV SCH ×3 (06:20→23:37)
[2021-12-17 06:24] LABS: BUN Creatinine Ratio 17.3 (10-20); Calcium 7.9 mg/dl (8.5-10.1); Creatinine Clr Calc Pharmacy 42.6 ml/min; Est GFR (African American) 69.7 ml/min; Est GFR (Non-African American) 60.1 ml/min; Magnesium 1.9 mg/dl (1.7-2.4); Phosphorus 4.4 mg/dl (2.5-4.9)
[2021-12-17 06:44] LABS: Hematocrit (blood only) 31.1 % (37-47); Hemoglobin 10.3 g/dL (12.0-16.0); Mean Corpuscular Hemoglobin 27.7 pg (25-34); Mean Corpuscular Hgb Conc 33.1 g/dL (32-36); Mean Corpuscular Volume 83.6 fL (80-100); Nucleated RBC # (auto) 0.03 K/uL (0-0); Nucleated RBC % (auto) 3.3 %; Platelet Count 10 K/uL (130-400); RDW Coefficient of Variation 15.5 % (11.5-14.5); RDW Standard Deviation 47.7 fL (36.4-46.3); Red Blood Count 3.72 M/uL (4.2-5.4); White Blood Count 0.96 K/uL (4.8-10.8)
[2021-12-17 06:53] LABS: Platelet Estimate SIGNIFIC DECREASED (Normal); Schistocytes 1+
[2021-12-17 07:10] LABS: ALC (manual) 0.58 K/uL (1.2-3.4); ANC (manual) 0.29 K/uL (1.4-6.5); Basophils # (manual) 0.01 K/uL (0-0.2); Lymphocytes # (manual) 0.58 K/uL (1.2-3.4); Lymphocytes % (manual) 60.6 %; Monocytes # (manual) 0.07 K/uL (0.11-0.59); Monocytes % (manual) 7.1 %; Myelocytes # (manual) 0.01 K/uL (0-0); Neutrophils # (manual) 0.29 K/uL (1.4-6.5); Neutrophils % (manual) 30.3 %
[2021-12-17] MEDS: TOPIRAMATE 100 MG TAB PO SCH ×2 (09:12→22:58)
[2021-12-17] MEDS: CETIRIZINE HCL 10 MG TABLET PO SCH (09:12)
[2021-12-17] MEDS: PHENAZOPYRIDINE HCL 200 MG TAB PO PRN (09:12)
[2021-12-17] MEDS: METHOCARBAMOL 750 MG TABLET PO PRN (09:13)
[2021-12-17] MEDS: OXYBUTYNIN CHLORIDE XL 5 MG TABCR PO SCH (09:13)
[2021-12-17] MEDS: ADVANCED PROBIOTIC 1250 MG CAPSULE PO SCH (09:13)
[2021-12-17] MEDS: FOLIC ACID 1 MG TAB PO SCH (09:13)
[2021-12-17] MEDS: GABAPENTIN 400 MG CAP PO SCH (09:13)
[2021-12-17] MEDS: FERROUS SULFATE 325 MG TAB PO SCH (09:14)
[2021-12-17] MEDS: ACYCLOVIR 400 MG TAB PO SCH ×2 (09:15→23:00)
[2021-12-17] MEDS: PANTOprazole 40 MG TAB PO SCH ×2 (09:15→22:56)
[2021-12-17] MEDS: FLUTICASONE/VILANTEROL 100/25MCG 14 PUFFS/INHALER INH SCH (09:16)
[2021-12-17] MEDS: RASPBERRY SYRUP 5 ML UDP PO SCH (09:19)
[2021-12-17] MEDS: VANCOMYCIN HCL 125 MG/2.5ML SOLN PO SCH (09:19)
[2021-12-17] MEDS: MAGNESIUM OXIDE 400 MG TAB PO SCH (09:22)
--- NOTE | 2021-12-17 11:52 | Critical Care Progress Note ---
Date of Service December 17, 2021 Assessment & Plan (1) Electrolyte imbalance: Plan: Improved, start daily magnesium supplement (2) AURORA (acute kidney injury): Plan: resolved (3) MDS (myelodysplastic syndrome): Plan: chronic, transfusion dependant (4) Anemia: Plan: transfusion dependant (5) Pancytopenia: (6) Chronic kidney disease: Plan: Stable for downgrade from ICU Admission and Anticipated Discharge Date Admission Date: November 26, 2021 Subjective Sleeping in room when I presented for evaluation Physical Exam Physical Exam: General: Alert. nontoxic. Skin: Warm, dry, Head: Atraumatic Ears, nose, mouth and throat: airway patent Cardiovascular: Normal peripheral perfusion Respiratory: no respiratory distress Gastrointestinal: Non distended Musculoskeletal: No deformity Results & Data Results & Data ([facility]) Vital Signs (Past 12 Hours) Vital Signs Temp Pulse Resp BP Pulse Ox 12/17/21 11:00 117 H 24 111/50 L 93 12/17/21 10:00 116 H 33 H 103/55 L 93 12/17/21 09:00 119 H 29 H 102/44 L 89 L 12/17/21 08:30 118 H 26 H 109/56 L 94 12/17/21 08:00 121 H 31 H 116/54 L 96 12/17/21 07:30 120 H 28 H 107/57 L 94 12/17/21 07:00 122 H 26 H 113/54 L 94 12/17/21 06:30 123 H 28 H 111/51 L 94 12/17/21 06:00 125 H 34 H 103/55 L 94 12/17/21 05:30 125 H 29 H 99/45 L 88 L 12/17/21 05:00 133 H 22 112/53 L 95 12/17/21 04:30 127 H 32 H 100/47 L 95 12/17/21 04:00 124 H 21 97/56 L 93 12/17/21 03:30 114 H 26 H 119/59 L 91 12/17/21 03:00 113 H 24 110/55 L 91 12/17/21 02:30 112 H 24 104/51 L 92 12/17/21 02:00 112 H 24 98/48 L 92 12/17/21 01:21 36.9 C 101 H 19 106/63 92 12/17/21 01:11 110 H 26 H 96/53 L 88 L 12/17/21 00:30 109 H 24 112/63 88 L 12/17/21 00:00 98 H 22 107/46 L 94 Critical Care Results & Data Vital Signs (Past 12 Hours) Vital Signs Temp Pulse Resp BP Pulse Ox 12/17/21 11:00 117 H 24 111/50 L 93 12/17/21 10:00 116 H 33 H 103/55 L 93 12/17/21 09:00 119 H 29 H 102/44 L 89 L 12/17/21 08:30 118 H 26 H 109/56 L 94 12/17/21 08:00 121 H 31 H 116/54 L 96 12/17/21 07:30 120 H 28 H 107/57 L 94 12/17/21 07:00 122 H 26 H 113/54 L 94 12/17/21 06:30 123 H 28 H 111/51 L 94 12/17/21 06:00 125 H 34 H 103/55 L 94 12/17/21 05:30 125 H 29 H 99/45 L 88 L 12/17/21 05:00 133 H 22 112/53 L 95 12/17/21 04:30 127 H 32 H 100/47 L 95 12/17/21 04:00 124 H 21 97/56 L 93 12/17/21 03:30 114 H 26 H 119/59 L 91 12/17/21 03:00 113 H 24 110/55 L 91 12/17/21 02:30 112 H 24 104/51 L 92 12/17/21 02:00 112 H 24 98/48 L 92 12/17/21 01:21 36.9 C 101 H 19 106/63 92 12/17/21 01:11 110 H 26 H 96/53 L 88 L 12/17/21 00:30 109 H 24 112/63 88 L 12/17/21 00:00 98 H 22 107/46 L 94 Lab & Micro Results (Past 24 Hours) RBC 3.72 M/uL (4.2-5.4) L 12/17/21 WBC 0.96 K/uL (4.8-10.8) L* 12/17/21 Hgb 10.3 g/dL (12.0-16.0) L 12/17/21 Hct 31.1 % (37-47) L 12/17/21 MCV 83.6 fL (80-100) 12/17/21 MCH 27.7 pg (25-34) 12/17/21 MCHC 33.1 g/dL (32-36) 12/17/21 RDW Standard Deviation 47.7 fL (36.4-46.3) H 12/17/21 RDW Coefficient of Variation 15.5 % (11.5-14.5) H 12/17/21 Plt Count 10 K/uL (130-400) L* 12/17/21 Nucleated Red Blood Cells % (auto) 3.3 % 12/17/21 Nucleated RBC Absolute Count (auto) 0.03 K/uL (0-0) H 12/17/21 ANC 0.29 K/uL (1.4-6.5) L* 12/17/21 ALC 0.58 K/uL (1.2-3.4) L 12/17/21 Neutrophils % (Manual) 30.3 % 12/17/21 Lymphocytes % (Manual) 60.6 % 12/17/21 Monocytes % (Manual) 7.1 % 12/17/21 Basophils % (Manual) 1.0 % 12/17/21 Myelocytes % (Manual) 1.0 % 12/17/21 Neutrophils # (Manual) 0.29 K/uL (1.4-6.5) L 12/17/21 Lymphocytes # (Manual) 0.58 K/uL (1.2-3.4) L 12/17/21 Monocytes # (Manual) 0.07 K/uL (0.11-0.59) L 12/17/21 Basophils # (Manual) 0.01 K/uL (0-0.2) 12/17/21 Myelocytes # (Manual) 0.01 K/uL (0-0) H 12/17/21 Schistocytes 1+ 12/17/21 Na 137 mmol/L (136-145) 12/17/21 K 4.0 mmol/L (3.5-5.1) 12/17/21 Cl 105 mmol/L (98-107) 12/17/21 CO2 24 mmol/L (21-32) 12/17/21 Anion Gap 8 (3-11) 12/17/21 BUN 17 mg/dl (6-23) 12/17/21 Creatinine 0.98 mg/dl (0.6-1.2) 12/17/21 Estimated GFR ( Amer) 69.7 ml/min 12/17/21 Estimated GFR (Non-Af Amer) 60.1 ml/min 12/17/21 BUN/Creatinine Ratio 17.3 (10-20) 12/17/21 Glu 102 mg/dl (70-99(Fasting)) H 12/17/21 Ca 7.9 mg/dl (8.5-10.1) L 12/17/21 Phosphorus Level 4.4 mg/dl (2.5-4.9) 12/17/21 Mg 1.9 mg/dl (1.7-2.4) 12/17/21 05:14 12/17/21 Calcium Level 7.9 mg/dl (8.5-10.1) L 12/17/21 05:14 12/17/21 Microbiology 12/14/21 Unknown Urine Culture - Final Urine,Clean Catch No growth - less than 1,000 colonies/mL. I & O Totals 24 Hours 12/16/21 12/17/21 12/18/21 06:59 06:59 06:59 Intake Total 5239.000 / 5239.000 1831.034 / 1831.034 Output Total 603 / 603 508 / 508 Balance 4636.000 / 4636.000 1323.034 / 1323.034 Cumulative 11/26/21 20:33 thru 12/17/21 06:00 Intake Total 52699.038 Output Total 7004 Balance 73169.038 RT Ventilator Mngmt (Last Documented) Ventilator Ordered Settings Respiratory Rate 24 12/17/21 11:00 Fraction of Inspired Oxygen 100 11/27/21 00:15 Ventilator - PT Measurements Respiratory Rate 24 Coding Level of Care Code 07151 Subseq Hosp Care Lvl 3 Diagnoses Electrolyte imbalance E87.8 AURORA (acute kidney injury) N17.9 MDS (myelodysplastic syndrome) D46.9 Anemia D61.89 Anemia type: bone marrow failure Bone marrow failure anemia type: other bone marrow failure Pancytopenia D61.818 Chronic kidney disease N18.9 (1) Anemia Anemia type: bone marrow failure Bone marrow failure anemia type: other bone marrow failure Qualified Code(s): D61.89 - Other specified aplastic anemias and other bone marrow failure syndromes
--- NOTE | 2021-12-17 13:05 | Hospitalist Progress Note ---
Date of Service December 17, 2021 Assessment & Plan (1) UTI (urinary tract infection): Plan: 12/15: Goals of care discussion: Discussed goals of care with patient at the bedside. She reports an understanding of her medical condition, and that she would like to pursue treatments including ICU, pressors, CPR, and intubation if needed at this time. She understands that she is transfusion dependent, that she would likely need a repeat bone marrow biopsy for further hematology work-up and even at that she may not be a good candidate for transplant/treatment but she would like to pursue aggressive care at this time and follow-up on any options available to her. She does express understanding that many of these, especially CPR, would have a substantial compromise to her quality of life and surgical interventions could be futile to her given her level of medical fragility. She is able to verbalize this risk, but expresses she would want to pursue these at this time if there is a chance in extending the length of her life. Discussed with her family by phone, who expressed that while they feel that she may benefit from a palliative approach History of Hydronephrosis with Ureteral Stent Placement. - history of ureteral stents placed in 07/2021 and subsequent exchange every 3 months, with some delays due to acute medical issues - chronic obstruction hydronephrosis with candidal UTI. - Unfortunately, had associated UTIs since that time-currently with ESBL Klebsiella -Urology consulted about stent exchange - Spoke with urology on 12/05. Recommend that she be evaluated by tertiary care center for stent removal and nephrostomy tubes. This was discussed with tertiary care who did not accept patient for nephrostomy tube placement, stent exchange was revisited with urology and was to be performed 12/15 but ultimately deferred due to acute anemia and hypotension. This can be reassessed in the future, either as outpatient or if she continues to remain in the hospital but is unlikely to be able to be done over the weekend. Completed course of meropenem on 12/06. Became febrile again 12/07, meropenem was restarted 12/08 for 10 day course Anticipate Keflex/doxycycline for urine prophylaxis at discharge and if doing well Multiple discussions week of 12/15 with [facility] who did not accept patient for transfer for nephrostomy tube placement. Also discussed with [facility] [place] who recommended outpatient follow-up as below. Caspofungin dose adjusted perioperatively with history of Rachelle glabrata, anticipate conversion back to fluconazole if no surgical intervention planned. Stent exchange again deferred 12/16 due to pressor requirements, critical illness Patient downgraded from ICU, hemodynamically stable and off pressors. Patient with improved hemoglobin and pressures 12/17, downgraded as above. Anticipating stent exchange with urology tomorrow, platelets borderline 10 today. Will transfuse 2 units of platelets preop to be complete at ~5 AM to grimaldo with CBC time tomorrow morning after completion. N.p.o. at midnight. We will continue caspofungin around the stent exchange per prior recommendations. 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 -S/p Neupogen 480 mcg SQ daily x 3 days-final dose on 11/29 -S/p Procrit 40,000 units x 1 on 11/29 - Received platelets on 11/27, 12/01, 12/02, 12/04, 12/06, 12/15 - Received 2 units of PRBCs on 11/27 & 2 units on 12/06; 1 unit on 12/09. Transfusion threshold 7 mg/DL, platelets less than 10K or active bleeding Patient difficult blood bank transfusion, requires [facility] blood bank supply Discussed with SOHLA hagan, patient was recommended for outpatient follow-up with repeat bone marrow biopsy, was not accepted/recommended for transfer. Discussion with [facility]. While patient could have bone marrow biopsy repeated here, first attempt was suboptimal and suggested that this be done by tertiary care where she would follow-up. May consider pending clinical course 12/15 routine Hgb decreased to 6.7, platelets less than 10K. Platelets given, blood ordered but delayed in transit. In the morning/early afternoon patient persistently hypotensive with MAP approximately 5861, is fluid responsive but with continued anemia pending blood transfusion which will not be able to be performed until overnight at the earliest, likely until tomorrow morning. Retyping and screen was required. Hemoccult is negative, and patient has not had any clinical bleeding. Discussed with ICU provider, while patient is maintaining a borderline map at this time she is high risk with borderline perfusing pressures an earlier ICU admission this hospital stay and ongoing anemia. Patient was pending transfer to PCU for additional fluids/monitoring, on discussion will moved to ICU pending blood transfusion. Coags pending, fibrinogen pending 12/16: Afebrile nonhemolytic reaction with blood transfusion, received Benadryl. Additional transfusion x2 units pending. Receiving additional platelets today for platelet count remaining below 10. Hemoccult was negative, concern for potential dark stool with repeat pending. 12/17: Overnight had a slight temperature rise of less than 0.5 degrees, not meeting criteria for transfusion reaction after first unit of blood. Did receive pretreatment with Tylenol/Benadryl, second unit transfused and well tolerated. Remains slightly tachycardic, but with a stable blood pressure. Hemoglobin has improved from 6.6-10.3 with transfusion series. Downgraded to medical telemetry, platelet count borderline at 10 today improved from 5. Will defer additional platelets today. Patient is at increased risk for hemolysis due to sensitization, and does have 1+ schistocytes on smear. Creatinine normal. Trend hemoglobin in a.m. (3) Coagulopathy: Plan: Coagulopathy / Thrombocytopenia - Admission labs concerning for INR 2.5 / PTT 77.2 / PLT 11 in setting of H&H 7.9 on arrival - notably worse from previous. ALso D-dimer 5000 - Suspected secondary to DIC from sepsis, in setting of MDS, liver disease with HCV history, poor nutrition (Vit K deficiency possibility) - S/p 2 units FFP and Vit K and coags normalized 12/04 - Received platelets on 11/27, 12/01, 12/02, 12/03, 12/15, 12/16 -? Liver synthetic dysfunction versus nutritional deficiency with history of reported cirrhosis, treated hep C. Recent liver imaging with heterogenous texture but not cirrhotic in appearance. INR remains 1.4 with decreased hemoglobin, fibrinogen has not decreased, received vitamin K supplementation Hemoglobin improved as above (4) Sepsis: Plan: Sepsis- with recurrent UTI. ESBL with Klebsiella pneumonia, patient did finish a course of meropenem on 12/06 but became febrile 24 hours on antibiotics and was recultured positive for ESBL E. coli sensitive to meropenem. 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 (5) UGIB (upper gastrointestinal bleed): Plan: Suspected UGIB - History primarily concerning for hematemesis/UGIB based on recent odynophagia, "spitting up blood" (non-projectile), nausea, decreased appetite. ?hemoptysis or epistaxis - Known history of HCV-induced cirrhosis. Last EGD seems to be 10/2019, per Dr. Chavez's PS note, which did NOT reveal any esophageal varices; did show Z-line irregularities and esophageal plaques c/w candidiasis - No need for octreotide with no h/o known varices - Initially in setting of significant coagulopathy (INR 2.5, PTT 77.2, Plt 11) -- notably progressed since prior admission, coagulopathy improved after FFP and Vit K. - GI consulted: Defer EGD unless emergent/emergent specialist patient has not had any signs/symptoms of upper GI bleed or melena/blood per rectum. consider outpatient EGD. patient with high periprocedural risk, continue PPI converted to twice daily. Hemoccult negative. - Initially on PPI gtt now been converted to PPI po bid - Hgb improved above after xfusion, follow overnight for stability (6) Acute respiratory failure with hypoxia: Plan: Acute Hypoxic Respiratory Failure. 2/ sepsis with concern for recent Covid, no other respiratory symptoms - Home O2 1-2L (7) AURORA (acute kidney injury): Plan: Acute Kidney Injury - Has history of CKD with creatinine baseline around 0.7 - 0.9. Cr at baseline as of 12/04. - With fluids and blood products, returned to baseline. - Follow serial labs (8) COVID-19: Plan: COVID-19 - Patient recently tested positive again for COVID-19, first time at the end of October. - During last hospitalization, was not hypoxic and therefore was not started on dexamethasone / remdesivir. - No steroids needed as her hypoxia is not from COVID. - As per infection control on 12/02, she can come off isolation precautions (9) Chronic kidney disease: Plan: CKD stage II-III (10) MDS (myelodysplastic syndrome): Plan: - As above. -Patient currently is transfusion dependent. - The patient has discussed her prognosis with multiple providers but does not want to pursue hospice care at this time. See goals discussion above - At this time we are only providing temporizing conditions with transfusions & IV abx. If her hemoglobin remained stable, she should follow up with [facility] [place] and will require a repeat marrow biopsy either before or at that appointment. 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 (14) Urge and stress incontinence: Plan: - Continue oxybutynin (15) COPD (chronic obstructive pulmonary disease): Plan: With a history of smoking and lung cancer. - Nebs as needed (16) Hx of Clostridium difficile infection: Plan: History of C. difficile Infection, loose BM earlier in admission since improved - On chronic vancomycin suppressive therapy twice weekly - Increased vancomycin 125 Mg p.o. once daily while on antibiotics (17) Cirrhosis of liver: Plan: - Noted with a history of hep C that has been treated (18) SACHA (obstructive sleep apnea): Plan: Obstructive Sleep Apnea - Utilizes CPAP qHS -- utilize while here (19) Electrolyte imbalance: Plan: Monitor and replete prn. Plan: Disposition: See goals above. Pt wishes to ultimately return home, rodriguez snot wish for hospice but with poor progrnosis and multiple comorbidities limiting tx. Admission and Anticipated Discharge Date Admission Date: November 26, 2021 Subjective Patient sleeping comfortably, arouses easily for exam, no acute change. Stable for downgrade from ICU. No clinical bleeding. No fever/chills overnight. Continues to want full care, aware will revisit stenting tomorrow. Review of Systems Review of Systems: All systems reviewed & are unremarkable except as noted in Subjective Physical Exam Physical Exam: General: Chronically ill, cachectic appearing female. No acute distress. Oriented to name, place, and month. HEENT: Atraumatic, normocephalic. Visual acuity/hearing grossly intact Pulm: Sleeping comfortably, symmetrical chest rise. No increase in work of breathing. No respiratory distress. Cardiac: RRR, -mrg. Radial pulses intact and symmetrical. Abdominal: Nontender, nondistended, soft. BS present. Extremities: Moving all extremities. No petechiae. Results & Data Results & Data ([facility]) Vital Signs (Past 12 Hours) Vital Signs Temp Pulse Resp BP Pulse Ox 12/17/21 11:00 117 H 24 111/50 L 93 12/17/21 10:00 116 H 33 H 103/55 L 93 12/17/21 09:00 119 H 29 H 102/44 L 89 L 12/17/21 08:30 118 H 26 H 109/56 L 94 12/17/21 08:00 121 H 31 H 116/54 L 96 12/17/21 07:30 120 H 28 H 107/57 L 94 12/17/21 07:00 122 H 26 H 113/54 L 94 12/17/21 06:30 123 H 28 H 111/51 L 94 12/17/21 06:00 125 H 34 H 103/55 L 94 12/17/21 05:30 125 H 29 H 99/45 L 88 L 12/17/21 05:00 133 H 22 112/53 L 95 12/17/21 04:30 127 H 32 H 100/47 L 95 12/17/21 04:00 124 H 21 97/56 L 93 12/17/21 03:30 114 H 26 H 119/59 L 91 12/17/21 03:00 113 H 24 110/55 L 91 12/17/21 02:30 112 H 24 104/51 L 92 12/17/21 02:00 112 H 24 98/48 L 92 12/17/21 01:21 36.9 C 101 H 19 106/63 92 12/17/21 01:11 110 H 26 H 96/53 L 88 L PG Care Time/CCT Total # of Minutes Spent Total Time Spent with Patient: Total time spent is greater than 50% in coordination of care (as documented) at patient's floor/unit and/or counseling patient: Coding Level of Care Code 13389 Subseq Hosp Care Lvl 2 Diagnoses UTI (urinary tract infection) N39.0 Pancytopenia D61.818 Coagulopathy D68.9 Sepsis A41.9 UGIB (upper gastrointestinal bleed) K92.2 Acute respiratory failure with hypoxia J96.01 AURORA (acute kidney injury) N17.9 COVID-19 U07.1 Chronic kidney disease N18.9 MDS (myelodysplastic syndrome) D46.9 Migraine G43.909 Celiac disease K90.0 Prothrombin [id number] mutation D68.52 Urge and stress incontinence N39.46 COPD (chronic obstructive pulmonary disease) J44.9 Hx of Clostridium difficile infection Z86.19 Cirrhosis of liver K74.60 SACHA (obstructive sleep apnea) G47.33 Electrolyte imbalance E87.8
--- NOTE | 2021-12-17 14:09 | Urology Progress Note ---
Date of Service December 17, 2021 Assessment & Plan (1) Obstructive uropathy: (2) S/P ureteral stent placement: Plan: Patient with chronic indwelling stents with colonization with glabrata and multiple episodes of neutropenic fever with significant glabrata fungemia Patient on antimicrobials. Patient is getting to the point that stents will need to be changed. Were placed in the beginning of September. Patient is undergoing admission close monitoring. Was found to be severely anemic prior to stent exchange on and required transfusions which led to transfusion reaction and fever. Patient's hemoglobin has improved. Platelets still remain low. Discussion extensively with anesthesia for optimal time for procedure. Are going to allow further time for resuscitation and normalization of labs with plans to intervene with stent exchange tomorrow with patient on continued antifungal and antibiotics. N.p.o. at midnight. Patient well aware risks and benefits. Will extensively reviewed tomorrow prior to procedure. Will plan for observation after stent exchange. Patient is extremely high risk for recurrent significant episode of illness and fever with any instrumentation. Long-term still recommend patient be assessed for nephrostomy tube placement. Once in place patient patient have exchanges done without anesthesia under local. The indwelling stents would be able to be removed and the only indwelling catheterization will be at the level of the kidney which would allow considerable better access and drainage as well as the ability to place medications into the collecting system. Patient would need to be transferred to a high acuity tertiary center with dedicated IR as patient would be very high risk with severe pancytopenia. We will plan to continue with monitoring. Plan for stent exchange tomorrow morning Admission and Anticipated Discharge Date Admission Date: November 26, 2021 Subjective Very well-known patient. Seen in the ICU today. Has severe pancytopenia with significantly low platelet and recent significant anemia requiring transfusion which then led to transfusion reaction with fever. Patient has indwelling stents that are changed every 3 months. Has colonization with glabrata and has had multiple episodes of neutropenic fever due to fungemia Patient is currently on antimicrobials and being closely monitored. Patient is resting comfortably in ICU today. Plan to coordinate care. Hemoglobin has elevated appropriately with transfusion however platelets still remain low. Patient currently n.p.o. however will give approval to the patient with plans for possible intervention tomorrow Review of Systems Review of Systems: Other Limited due to patient's severe illness Physical Exam Physical Exam: General: Resting comfortably, frail HEENT: Normocephalic Atraumatic. Inspection normal. Respiratory: Nonlabored. No use of accessory muscles. No tachypnea or dyspnea. Cardiovascular: No tachycardia Skin: [place] and Dry. No rashes or visible lesions. Results & Data ([facility]) Vital Signs (Past 12 Hours) Vital Signs Pulse Resp BP Pulse Ox 12/17/21 11:00 117 H 24 111/50 L 93 12/17/21 10:00 116 H 33 H 103/55 L 93 12/17/21 09:00 119 H 29 H 102/44 L 89 L 12/17/21 08:30 118 H 26 H 109/56 L 94 12/17/21 08:00 121 H 31 H 116/54 L 96 12/17/21 07:30 120 H 28 H 107/57 L 94 12/17/21 07:00 122 H 26 H 113/54 L 94 12/17/21 06:30 123 H 28 H 111/51 L 94 12/17/21 06:00 125 H 34 H 103/55 L 94 12/17/21 05:30 125 H 29 H 99/45 L 88 L 12/17/21 05:00 133 H 22 112/53 L 95 12/17/21 04:30 127 H 32 H 100/47 L 95 12/17/21 04:00 124 H 21 97/56 L 93 12/17/21 03:30 114 H 26 H 119/59 L 91 12/17/21 03:00 113 H 24 110/55 L 91 12/17/21 02:30 112 H 24 104/51 L 92 PG Care Time/CCT Total # of Minutes Spent Total Time Spent with Patient: Total time spent is greater than 50% in coordination of care (as documented) at patient's floor/unit and/or counseling patient: Coding Level of Care Code 60445 Subseq Hosp Care Lvl 2 Diagnoses Obstructive uropathy N13.9 S/P ureteral stent placement Z96.0
[2021-12-17] MEDS: oxyCODONE HCL IR 5 MG TAB (IMMEDIATE RELEASE) PO PRN ×2 (17:55→23:03)
[2021-12-17] MEDS: CASPOFUNGIN 35 MG in SODIUM CHLORIDE 0.9% 250 ML IV SCH (17:56)
[2021-12-17] MEDS ORDERED: SODIUM CHLORIDE 0.9% 250 ML IV PRN (18:45)
[2021-12-17] MEDS ORDERED: MAGNESIUM OXIDE 400 MG TAB PO SCH (21:00)
[2021-12-17] MEDS: clonazePAM 0.5 MG TAB PO SCH (22:54)
[2021-12-17] MEDS: QUEtiapine FUMARATE 25 MG TABLET PO SCH (22:56)
[2021-12-17] MEDS: SERTRALINE HCL 50 MG TABLET PO SCH (22:57)
[2021-12-17] MEDS: MIRABEGRON ER 25 MG TAB PO SCH (22:59)
[2021-12-18] MEDS: ACETAMINOPHEN 500 MG TAB PO PRN ×2 (03:36→23:11)
[2021-12-18] MEDS: diphenhydrAMINE Capsule 25 MG CAP PO PRN (05:10)
[2021-12-18] MEDS: MEROPENEM 500 MG in SYRINGE 0 ML IV SCH ×3 (05:57→22:17)
[2021-12-18] MEDS ORDERED: MIDAZOLAM HCL 1 MG/ML 2ML VIAL ONE (07:45)
[2021-12-18] MEDS ORDERED: fentaNYL citrate 100 MCG/2 ML VIAL ONE (07:46)
[2021-12-18 08:18] LABS: BUN Creatinine Ratio 19.8 (10-20); Calcium 7.3 mg/dl (8.5-10.1); Creatinine Clr Calc Pharmacy 43.5 ml/min; Est GFR (African American) 71.4 ml/min; Est GFR (Non-African American) 61.6 ml/min; Magnesium 1.6 mg/dl (1.7-2.4); Phosphorus 4.9 mg/dl (2.5-4.9); Potassium 3.3 mmol/L (3.5-5.1)
[2021-12-18 08:36] LABS: Basophils # (auto) 0.01 K/uL (0-0.2); Basophils % (auto) 1.3 %; Hematocrit (blood only) 25.5 % (37-47); Hemoglobin 8.4 g/dL (12.0-16.0); Immature Granulocytes # (auto) 0.02 K/uL (0.00-0.02); Immature Granulocytes % (auto) 2.6 %; Lymphocytes # (auto) 0.34 K/uL (1.2-3.4); Lymphocytes % (auto) 44.2 %; Mean Corpuscular Hemoglobin 27.9 pg (25-34); Mean Corpuscular Hgb Conc 32.9 g/dL (32-36); Mean Corpuscular Volume 84.7 fL (80-100); Monocytes # (auto) 0.14 K/uL (0.11-0.59); Monocytes % (auto) 18.2 %; Neutrophils # (auto) 0.26 K/uL (1.4-6.5); Neutrophils % (auto) 33.7 %; Platelet Count 7 K/uL (130-400); RDW Coefficient of Variation 15.8 % (11.5-14.5); RDW Standard Deviation 48.6 fL (36.4-46.3); Red Blood Count 3.01 M/uL (4.2-5.4); White Blood Count 0.77 K/uL (4.8-10.8)
[2021-12-18 08:45] LABS: Dohle Bodies 1+; Giant Platelets 1+; Platelet Estimate SIGNIFIC DECREASED (Normal)
[2021-12-18] MEDS ORDERED: POTASSIUM CHLORIDE CRTAB 20 MEQ TABCR PO STA (11:21)
[2021-12-18] MEDS: FLUTICASONE/VILANTEROL 100/25MCG 14 PUFFS/INHALER INH SCH (12:02)
[2021-12-18] MEDS: CETIRIZINE HCL 10 MG TABLET PO SCH (12:29)
[2021-12-18] MEDS: ACYCLOVIR 400 MG TAB PO SCH ×2 (12:29→22:15)
[2021-12-18] MEDS: FERROUS SULFATE 325 MG TAB PO SCH (12:29)
[2021-12-18] MEDS: FOLIC ACID 1 MG TAB PO SCH (12:30)
[2021-12-18] MEDS: GABAPENTIN 400 MG CAP PO SCH (12:30)
[2021-12-18] MEDS: ADVANCED PROBIOTIC 1250 MG CAPSULE PO SCH (12:30)
[2021-12-18] MEDS: MAGNESIUM OXIDE 400 MG TAB PO SCH (12:31)
[2021-12-18] MEDS: PANTOprazole 40 MG TAB PO SCH ×2 (12:31→22:16)
[2021-12-18] MEDS: OXYBUTYNIN CHLORIDE XL 5 MG TABCR PO SCH (12:31)
--- NOTE | 2021-12-18 12:36 | Hospitalist Progress Note ---
Date of Service December 18, 2021 Assessment & Plan (1) Fever: Plan: Spiked a fever again on the morning of 12/18, with new onset acute respiratory failure with hypoxia requiring 4 LNC and noted to have crackles on pulmonary examination Checked chest x-ray-shows multifocal pneumonia most pronounced in the right upper lobe Fortunately her blood pressure is remaining stable -Tylenol as needed for fever -Check blood cultures, UA -Add on cefepime to cover for Pseudomonas as she is already on meropenem in case of resistance -Continue caspofungin and meropenem as before to cover for previous UTI and empirically in case of fungemia in preparation for ureteral stent exchange (2) UTI (urinary tract infection): Plan: 12/15: Goals of care discussion: Discussed goals of care with patient at the bedside. She reports an understanding of her medical condition, and that she would like to pursue treatments including ICU, pressors, CPR, and intubation if needed at this time. She understands that she is transfusion dependent, that she would likely need a repeat bone marrow biopsy for further hematology work-up and even at that she may not be a good candidate for transplant/treatment but she would like to pursue aggressive care at this time and follow-up on any options available to her. She does express understanding that many of these, especially CPR, would have a substantial compromise to her quality of life and surgical interventions could be futile to her given her level of medical fragility. She is able to verbalize this risk, but expresses she would want to pursue these at this time if there is a chance in extending the length of her life. Discussed with her family by phone, who expressed that while they feel that she may benefit from a palliative approach History of Hydronephrosis with Ureteral Stent Placement. - history of ureteral stents placed in 07/2021 and subsequent exchange every 3 months, with some delays due to acute medical issues - chronic obstruction hydronephrosis with candidal UTI. - Unfortunately, had associated UTIs since that time-this admission with ESBL Klebsiella -Urology consulted about stent exchange - Spoke with urology on 12/05. Recommend that she be evaluated by tertiary care center for stent removal and nephrostomy tubes. This was discussed with tertiary care who did not accept patient for nephrostomy tube placement, stent exchange was revisited with urology and was to be performed 12/15 but ultimately deferred due to acute anemia and hypotension. Completed course of meropenem on 12/06. Became febrile again 12/07, meropenem was restarted 12/08 for 10 day course Anticipate Keflex/doxycycline for urine prophylaxis at discharge and if doing well Multiple discussions week of 12/15 with [facility] who did not accept patient for transfer for nephrostomy tube placement. Also discussed with [facility] hematology who recommended outpatient follow-up as below. Caspofungin dose adjusted perioperatively with history of Rachelle glabrata, anticipate conversion back to fluconazole if no surgical intervention planned. Stent exchange again deferred 12/16 due to pressor requirements, critical illness and again deferred on 12/18 due to febrile illness and hypoxia with pneumonia Patient downgraded from ICU, hemodynamically stable and off pressors. -Awaiting repeat UA after having fever on 12/18 (3) Sepsis: Plan: Sepsis- with recurrent UTI early in the course of admission, and now with pneumonia on 12/18 She is chronically neutropenic and immunosuppressed ESBL with Klebsiella pneumonia, patient did finish a course of meropenem on 12/06 but became febrile 24 hours on antibiotics and was recultured positive for ESBL E. coli sensitive to meropenem. 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 -S/p Neupogen 480 mcg SQ daily x 3 days-final dose on 11/29 -S/p Procrit 40,000 units x 1 on 11/29 - Received platelets on 11/27, 12/01, 12/02, 12/04, 12/06, 12/15, 12/18 - Received 2 units of PRBCs on 11/27 & 2 units on 12/06; 1 unit on 12/09, and 2 units on 12/16 Transfusion threshold 7 mg/DL, platelets less than 10K or active bleeding- platelets 7 today but she had just finished receiving a unit of platelet tr ansfusion Patient difficult blood bank transfusion, requires [place] blood bank supply Discussed with PSSean hagan, patient was recommended for outpatient follow-up with repeat bone marrow biopsy, was not accepted/recommended for transfer. Discussion with [facility]. While patient could have bone marrow biopsy repeated here, first attempt was suboptimal and suggested that this be done by tertiary care where she would follow-up. May consider pending clinical course 12/15 routine Hgb decreased to 6.7, platelets less than 10K. Platelets given, blood ordered but delayed in transit. In the morning/early afternoon patient persistently hypotensive with MAP approximately [id number], wasfluid responsive but with continued anemia pending blood transfusion, she was transferred to the ICU for vasopressors with Levophed 12/16: Afebrile nonhemolytic reaction with blood transfusion, received Benadryl. (5) Acute respiratory failure with hypoxia: Plan: Acute Hypoxic Respiratory Failure. 11/23 sepsis with concern for recent Covid, no other respiratory symptoms - Home O2 1-2L (6) Chronic kidney disease: Plan: CKD stage II-III (7) MDS (myelodysplastic syndrome): Plan: - As above. -Patient currently is transfusion dependent. - The patient has discussed her prognosis with multiple providers but does not want to pursue hospice care at this time. See goals discussion above - At this time we are only providing temporizing conditions with transfusions & IV abx. If her hemoglobin remained stable, she should follow up with [facility] as outpatient and will require a repeat marrow biopsy either before or at that appointment. 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 (11) Urge and stress incontinence: Plan: - Continue oxybutynin (12) UGIB (upper gastrointestinal bleed): Plan: Suspected UGIB upon initial arrival - History primarily concerning for hematemesis/UGIB based on recent odynophagia, "spitting up blood" (non-projectile), nausea, decreased appetite. ?hemoptysis or epistaxis - Known history of HCV-induced cirrhosis. Last EGD seems to be 10/2019, per Dr. Chavez's [facility] note, which did NOT reveal any esophageal varices; did show Z-line irregularities and esophageal plaques c/w candidiasis - No need for octreotide with no h/o known varices - Initially in setting of significant coagulopathy (INR 2.5, PTT 77.2, Plt 11) -- notably progressed since prior admission, coagulopathy improved after FFP and Vit K. - GI consulted: Defer EGD unless emergent/emergent specialist patient has not had any signs/symptoms of upper GI bleed or melena/blood per rectum. consider outpatient EGD. patient with high periprocedural risk, continue PPI converted to twice daily. Hemoccult negative. - Initially on PPI gtt now been converted to PPI po bid (13) COPD (chronic obstructive pulmonary disease): Plan: With a history of smoking and lung cancer. - Nebs as needed (14) Coagulopathy: Plan: Coagulopathy / Thrombocytopenia - Admission labs concerning for INR 2.5 / PTT 77.2 / PLT 11 in setting of H&H 7.9 on arrival - notably worse from previous. ALso D-dimer 5000 - Suspected secondary to DIC from sepsis, in setting of MDS, liver disease with HCV history, poor nutrition (Vit K deficiency possibility) - S/p 2 units FFP and Vit K and coags normalized 12/04 - Received platelets on 11/27, 12/01, 12/02, 12/03, 12/15, 12/16,12/18 -? Liver synthetic dysfunction versus nutritional deficiency with history of reported cirrhosis, treated hep C. Recent liver imaging with heterogenous texture but not cirrhotic in appearance. INR remains 1.4 with decreased hemoglobin, fibrinogen has not decreased, received vitamin K supplementation Hemoglobin improved as above (15) AURORA (acute kidney injury): Plan: Acute Kidney Injury - Has history of CKD with creatinine baseline around 0.7 - 0.9. Cr at baseline as of 12/04. - With fluids and blood products, returned to baseline. - Follow serial labs (16) Hx of Clostridium difficile infection: Plan: History of C. difficile Infection, loose BM earlier in admission since improved - On chronic vancomycin suppressive therapy twice weekly - Increased vancomycin 125 Mg p.o. once daily while on antibiotics (17) Cirrhosis of liver: Plan: - Noted with a history of hep C that has been treated (18) SACHA (obstructive sleep apnea): Plan: Obstructive Sleep Apnea - Utilizes CPAP qHS -- utilize while here (19) COVID-19: Plan: COVID-19 - Patient recently tested positive again for COVID-19, first time at the end of October. - During last hospitalization, was not hypoxic and therefore was not started on dexamethasone / remdesivir. - No steroids needed as her hypoxia is not from COVID. - As per infection control on 12/02, she can come off isolation precautions (20) Electrolyte imbalance: Plan: Monitor and replete prn. Plan: Disposition: See goals above. Pt wishes to ultimately return home, does not wish for hospice but with poor prognosis and multiple comorbidities limiting tx. Continued stay Admission and Anticipated Discharge Date Admission Date: November 26, 2021 Subjective Patient had a fever this morning before getting her platelet transfusion and has been hypoxic requiring 4 L nasal cannula since yesterday evening. Because some of her shortness of breath seem to worsen after her first platelet transfusion, the second bag was discontinued. She does feel tired and does report coughing. Telemetry with sinus tachycardia with rates in the 100s to 110s. Her urology procedure was canceled for today due to new onset fever and hypoxia Review of Systems Review of Systems: All systems reviewed & are unremarkable except as noted in HPI & below Physical Exam Constitutional: WD/WN, vitals as above + thin Eyes: + anicteric sclerae Neck: trachea midline, no thyromegaly Respiratory: normal respiratory effort Auscultation: + crackles (In the right middle and upper lung romero as well as left lower lung field); no rhonchi and no wheezes Cardiovascular: Rate/Rhythm: regular rhythm and + tachycardic Heart Sounds: no murmur Chest (Breasts): Chest: normal inspection of chest Gastrointestinal (Abdomen): normal bowel sounds, soft, nontender, no hepatosplenomegaly Musculoskeletal: Extremities: extremities normal to inspection; no cyanosis and no clubbing Skin: no rashes, warm and dry + ecchymosis (numerous areas of bruising and ecchymosis, petechiae on extremities) Neurologic: moves all extremities and awake; no focal motor deficits Psychiatric: A+Ox3, euthymic affect Orientation: cooperative Lymphatic: no lymphedema Results & Data Results & Data ([facility]) Vital Signs (Past 12 Hours) Vital Signs Temp Pulse Pulse Resp BP BP Pulse Ox 12/18/21 11:18 91 H 12/18/21 11:07 36.5 C 101 H 19 128/71 93 12/18/21 07:20 36.5 C 92 H 18 92/54 L 92 12/18/21 06:00 37.0 C 94 H 20 91/50 L 98 12/18/21 05:59 36.3 C L 95 H 16 97/52 L 97 12/18/21 05:45 36.4 C L 95 H 16 93/51 L 98 12/18/21 05:26 36.6 C 104 H 16 92/47 L 93 12/18/21 04:26 118 H 12/18/21 04:05 38.5 C H 118 H 24 103/51 L 90 12/18/21 03:50 113 H 26 H 91 12/18/21 00:45 116 H 24 91 Laboratory Results 12/18/21 12/18/21 12/18/21 Range/Units 13:01 07:33 07:33 WBC 0.77 L* (4.8-10.8) K/uL RBC 3.01 L (4.2-5.4) M/uL Hgb 8.4 L (12.0-16.0) g/dL Hct 25.5 L (37-47) % MCV 84.7 (80-100) fL MCH 27.9 (25-34) pg MCHC 32.9 (32-36) g/dL RDW Std Deviation 48.6 H (36.4-46.3) fL RDW Coeff of Irasema 15.8 H (11.5-14.5) % Plt Count 7 L* (130-400) K/uL Immature Gran % (Auto) 2.6 % Neut % (Auto) 33.7 % Lymph % (Auto) 44.2 % [place] % (Auto) 18.2 % Eos % (Auto) 0.0 % Baso % (Auto) 1.3 % Neut # (Auto) 0.26 L* (1.4-6.5) K/uL Lymph # (Auto) 0.34 L (1.2-3.4) K/uL [place] # (Auto) 0.14 (0.11-0.59) K/uL Eos # (Auto) 0.00 (0-0.5) K/uL Baso # (Auto) 0.01 (0-0.2) K/uL Immature Gran # (Auto) 0.02 (0.00-0.02) K/uL Dohle Bodies 1+ Platelet Estimate SIGNIFIC DECREASED (Normal) Giant Platelets 1+ Sodium 135 L (136-145) mmol/L Potassium 3.3 L (3.5-5.1) mmol/L Chloride 103 (98-107) mmol/L Carbon Dioxide 26 (21-32) mmol/L Anion Gap 6 (3-11) BUN 19 (6-23) mg/dl Creatinine 0.96 (0.6-1.2) mg/dl Est Cr Clr Drug Dosing 43.5 ml/min Est GFR ( Amer) 71.4 ml/min Est GFR (Non-Af Amer) 61.6 ml/min BUN/Creatinine Ratio 19.8 (10-20) Glucose 100 H (70-99(Fasting)) mg/dl Calcium 7.3 L (8.5-10.1) mg/dl Phosphorus 4.9 (2.5-4.9) mg/dl Magnesium 1.6 L (1.7-2.4) mg/dl Nasal Screen MRSA (PCR) Negative (Negative) Blood Type Antibody Screen Antibody Identification Antibody ID Comment Crossmatch 12/15/21 Range/Units 09:37 WBC (4.8-10.8) K/uL RBC (4.2-5.4) M/uL Hgb (12.0-16.0) g/dL Hct (37-47) % MCV (80-100) fL MCH (25-34) pg MCHC (32-36) g/dL RDW Std Deviation (36.4-46.3) fL RDW Coeff of Irasema (11.5-14.5) % Plt Count (130-400) K/uL Immature Gran % (Auto) % Neut % (Auto) % Lymph % (Auto) % [place] % (Auto) % Eos % (Auto) % Baso % (Auto) % Neut # (Auto) (1.4-6.5) K/uL Lymph # (Auto) (1.2-3.4) K/uL [place] # (Auto) (0.11-0.59) K/uL Eos # (Auto) (0-0.5) K/uL Baso # (Auto) (0-0.2) K/uL Immature Gran # (Auto) (0.00-0.02) K/uL Dohle Bodies Platelet Estimate (Normal) Giant Platelets Sodium (136-145) mmol/L Potassium (3.5-5.1) mmol/L Chloride (98-107) mmol/L Carbon Dioxide (21-32) mmol/L Anion Gap (3-11) BUN (6-23) mg/dl Creatinine (0.6-1.2) mg/dl Est Cr Clr Drug Dosing ml/min Est GFR ( Amer) ml/min Est GFR (Non-Af Amer) ml/min BUN/Creatinine Ratio (10-20) Glucose (70-99(Fasting)) mg/dl Calcium (8.5-10.1) mg/dl Phosphorus (2.5-4.9) mg/dl Magnesium (1.7-2.4) mg/dl Nasal Screen MRSA (PCR) (Negative) Blood Type B Positive Antibody Screen POSITIVE A Antibody Identification Anti-E Antibody ID Comment Cancelled Crossmatch See Detail PG Care Time/CCT Total # of Minutes Spent Total Time Spent with Patient: Total time spent is greater than 50% in coordination of care (as documented) at patient's floor/unit and/or counseling patient: Coding Level of Care Code 61493 Subseq Hosp Care Lvl 3 Diagnoses UTI (urinary tract infection) N39.0 Pancytopenia D61.818 Coagulopathy D68.9 Sepsis A41.9 UGIB (upper gastrointestinal bleed) K92.2 Acute respiratory failure with hypoxia J96.01 AURORA (acute kidney injury) N17.9 COVID-19 U07.1 Chronic kidney disease N18.9 MDS (myelodysplastic syndrome) D46.9 Migraine G43.909 Celiac disease K90.0 Prothrombin [id number] mutation D68.52 Urge and stress incontinence N39.46 COPD (chronic obstructive pulmonary disease) J44.9 Hx of Clostridium difficile infection Z86.19 Cirrhosis of liver K74.60 SACHA (obstructive sleep apnea) G47.33 Electrolyte imbalance E87.8 Fever R50.9
[2021-12-18] MEDS: VANCOMYCIN HCL 125 MG/2.5ML SOLN PO SCH (12:42)
[2021-12-18] MEDS: RASPBERRY SYRUP 5 ML UDP PO SCH (12:42)
[2021-12-18] MEDS: TOPIRAMATE 100 MG TAB PO SCH ×2 (12:42→22:17)
--- NOTE | 2021-12-18 12:47 | XRay Report ---
XR chest 1V portable HISTORY: hypoxia,fever,assess for PNA COMPARISON: Chest 11/27/2021. FINDINGS: Interval development of multifocal bilateral airspace opacities with a consolidative airspa ce opacity within the right upper lobe. The heart is top normal in size. No pneumothorax. Trace bilat eral pleural effusions. Emphysema. Calcified granulomas again noted within the right upper lobe. IMPRESSION: Interval development of multifocal bilateral airspace opacities most pronounced within the right uppe r lobe. This likely represents a pneumonia. ACT 112: Negative or not required by law. Electronically signed by: Jimi Bangura M.D. 12/18/2021 12:45 PM
[2021-12-18] MEDS: MAGNESIUM SULFATE / D5W 1 GM/100 ML BAG IV SCH ×2 (12:50→14:50)
[2021-12-18] MEDS: oxyCODONE HCL IR 5 MG TAB (IMMEDIATE RELEASE) PO PRN (12:56)
[2021-12-18] MEDS: CEFEPIME 2,000 MG in SYRINGE 0 ML IV SCH (13:40)
[2021-12-18] MEDS: CASPOFUNGIN 35 MG in SODIUM CHLORIDE 0.9% 250 ML IV SCH (18:15)
[2021-12-18] MEDS: clonazePAM 0.5 MG TAB PO SCH (22:15)
[2021-12-18] MEDS: MIRABEGRON ER 25 MG TAB PO SCH (22:15)
[2021-12-18] MEDS: QUEtiapine FUMARATE 25 MG TABLET PO SCH (22:16)
[2021-12-18] MEDS: SERTRALINE HCL 50 MG TABLET PO SCH (22:17)
[2021-12-18] MEDS: METHOCARBAMOL 750 MG TABLET PO PRN (22:21)
[2021-12-18] MEDS ORDERED: LACTATED RINGER'S 1,000 ML IV ONE (23:41)
--- NOTE | 2021-12-19 00:02 | Communication Note ---
Date of Service: December 18, 2021 Called to assess the patient due to fever 39.4C, BP 98/50 and HR 130. She reports feeling hot, somewhat tremulous and mildly short of breath despite NC at 4L/min. Patient is somewhat pale with mild generalized tremors and has mildly increased WOB although no tachypnea or hypoxia. No JVD or LE edema on exam. Tachycardic rate and regular rhythm without murmurs. Bilateral crackles without wheezes on lung auscultation. Reviewed labs which show pancytopenia (chronic) with severe neutropenia and lymphopenia. Reviewed CXR today which shows interval development of multifocal bilateral airspace opacities (largest in RUL). Sepsis: Suspect 2/2 Pneumonia. Patient already on Caspofungin and Meropenem, and was started on Cefepime today for new PNA. Patient is immunocompromised due to severe MGUS (transfusion dependent) and is thus at risk for severe atypical infections. - Ordered Procal and Lactate as well as CBC/BMP/Mg. - Ordered LR 1L bolus with plan for another if no significant improvement in VS. - I spoke with the patient regarding goals of care, given earlier discussions per perusal of previous hospitalist notes. Patient re-affirms that she would like to have full escalation of care if necessary, and is fine with pressors/invasive lines/intubation if necessary. Will plan on transfer to ICU if does not respond to fluid boluses.
[2021-12-19] MEDS: CEFEPIME 2,000 MG in SYRINGE 0 ML IV SCH ×2 (00:04→18:37)
[2021-12-19 00:46] LABS: Hematocrit (blood only) 29.1 % (37-47); Hemoglobin 9.6 g/dL (12.0-16.0); Mean Corpuscular Hemoglobin 27.9 pg (25-34); Mean Corpuscular Volume 84.6 fL (80-100); Nucleated RBC # (auto) 0.03 K/uL (0-0); Nucleated RBC % (auto) 3.7 %; Platelet Count 6 K/uL (130-400); RDW Coefficient of Variation 15.7 % (11.5-14.5); RDW Standard Deviation 48.5 fL (36.4-46.3); Red Blood Count 3.44 M/uL (4.2-5.4); White Blood Count 0.74 K/uL (4.8-10.8)
[2021-12-19 00:54] LABS: Platelet Estimate SIGNIFIC DECREASED (Normal)
[2021-12-19 01:02] LABS: BUN Creatinine Ratio 20.9 (10-20); Calcium 7.8 mg/dl (8.5-10.1); Creatinine Clr Calc Pharmacy 45.9 ml/min; Est GFR (African American) 76.2 ml/min; Est GFR (Non-African American) 65.7 ml/min; Magnesium 1.6 mg/dl (1.7-2.4)
[2021-12-19] MEDS ORDERED: SODIUM CHLORIDE 0.9% 1000ML 1,000 ML IV ONE (01:07)
[2021-12-19] MEDS: MAGNESIUM SULFATE / D5W 1 GM/100 ML BAG IV SCH ×5 (01:33→11:35)
[2021-12-19] MEDS: MEROPENEM 500 MG in SYRINGE 0 ML IV SCH ×3 (06:14→21:59)
[2021-12-19] MEDS ORDERED: SODIUM CHLORIDE 0.9% 250 ML IV PRN (07:46)
[2021-12-19] MEDS ORDERED: LACTATED RINGER'S 1,000 ML IV ONE (07:48)
[2021-12-19 08:06] LABS: Hematocrit (blood only) 29.8 % (37-47); Hemoglobin 9.7 g/dL (12.0-16.0); Mean Corpuscular Hemoglobin 27.6 pg (25-34); Mean Corpuscular Volume 84.9 fL (80-100); Platelet Count 7 K/uL (130-400); Red Blood Count 3.51 M/uL (4.2-5.4); White Blood Count 0.94 K/uL (4.8-10.8)
[2021-12-19 08:10] LABS: BUN Creatinine Ratio 20.9 (10-20); Calcium 7.3 mg/dl (8.5-10.1); Creatinine Clr Calc Pharmacy 49.9 ml/min; Est GFR (African American) 76.2 ml/min; Est GFR (Non-African American) 65.7 ml/min; Magnesium 2.3 mg/dl (1.7-2.4); Mean Corpuscular Hgb Conc 32.6 g/dL (32-36); Nucleated RBC # (auto) 0.02 K/uL (0-0); Nucleated RBC % (auto) 2.4 %; Phosphorus 3.8 mg/dl (2.5-4.9)
[2021-12-19 08:20] LABS: Hypogranular Neutrophils 1+; Platelet Estimate SIGNIFIC DECREASED (Normal)
[2021-12-19 08:21] LABS: ALC (manual) 0.19 K/uL (1.2-3.4); ANC (manual) 0.57 K/uL (1.4-6.5); Basophils # (manual) 0.03 K/uL (0-0.2); Basophils % (manual) 3.2 %; Blast # (manual) 0.09 K/uL (0-0); Blast Cells % (manual) 9.5 %; Lymphocytes # (manual) 0.19 K/uL (1.2-3.4); Lymphocytes % (manual) 20.6 %; Monocytes # (manual) 0.03 K/uL (0.11-0.59); Monocytes % (manual) 3.2 %; Myelocytes # (manual) 0.03 K/uL (0-0); Myelocytes % (manual) 3.2 %; Neutrophils # (manual) 0.57 K/uL (1.4-6.5); Neutrophils % (manual) 60.3 %
--- NOTE | 2021-12-19 09:00 | Urology Progress Note ---
Date of Service December 19, 2021 Assessment & Plan (1) Obstructive uropathy: (2) S/P ureteral stent placement: Plan: 66yo F with an extensive past medical history admitted with significant coagulopathy and thrombocytopenia on arrival and found to have GI bleed, Covid positive, and sepsis. Urology initially consulted for sepsis/UTI in the setting of chronic indwelling bilateral ureteral stents. However, given her multiple acute issues including Covid-19 infection on admission, no intervention was indicated at that time. Discussion of proceeding with stent exchange when medically stable verses nephrostomy tubes was considered. Multiple discussions between urology/Dr. Cervantes and hospital team.Pt was not accepted for transfer for nephrostomy tube placement. Plan was to proceed with bilateral stent exchange when medically optimized. - Plan of care reviewed with Dr. Cervantes, on-call urologist. - Pt with chronic b/l hydronephrosis managed with chronic b/l ureteral stents - Last exchanged 09/26/[address] Cervantes. - She is approaching timeframe for regularly scheduled stent exchange. - Febrile overnight at 39.4C, hypotensive, tachycardic - Pt received fluid bolus and started on IV Cefepime for suspected PNA. - Currently afebrile, Labs reviewed - Wbc 0.94, Hgb 9.7, Creatinine 0.91. - Platelets 7k this AM - pt to receive transfusion this morning. - UCx 11/27 with Klebsiella ESBL - Treated with course of IV Meropenem.Repeat UCx 12/08 negative.Repeat UCx 12/14 no growth. - Blood cultures 11/27 and repeat 12/07 negative. Repeat 12/18 pending. - Currently on IV Meropenem, Cefepime, and Caspofungin. - Will tentatively plan for OR today pending patient status for cystoscopy, bilateral retrograde pyelogram, bilateral ureteral stent exchange. - Risks and benefits to be reviewed with patient by Dr. Cervantes. OR notified. Covered with scheduled IV antibiotics/antifungals. - Keep NPO. - Continue supportive care, antibiotic/antifungal therapy, and acute management per primary team. - Will continue to follow closely. ATTENDING NOTE: Independently examined, evaluated, interviewed, and consented. Discussed extensively different options. Spoke directly to the hospitalist team today as well to try to coordinate care. 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 Has multiple antibodies to blood due to multiple previous transfusions. Patient developed fevers overnight has been determined to have likely a pneumonia. Extensively discussed options. Discussed need for exchange in the near future and with patient optimized on antifungal therapy versus continuing antifungal therapy for a delayed procedure elected to proceed with the stent exchange. We will use minimal anesthesia. And plan to set up for stent exchange today. Risks and benefits discussed at length for procedure. These include bleeding, infection, injury to surrounding tissues or organs, and risks associated with anesthesia. Patient states understanding and agrees to proceed. Will sign consent and proceed with bilateral stent exchange Admission and Anticipated Discharge Date Admission Date: November 26, 2021 Subjective Pt examined at bedside this AM. Awake, resting in bed on arrival. Overnight, pt was febrile at 39.4C, tachycardic, hypotensive. She was given fluid bolus and started on Cefepime for suspected PNA. Currently on 4L O2 NC. Offers no new complaints at time of exam this morning. Has been NPO. Pt to receive fluid bolus and platelets this morning per nursing. Tentatively scheduled for OR today for stent exchange. Stent exchange has been deferred several times - 12/16 due to pressor requirements, critical illnessand again deferred on 12/18 due to febrile illness and hypoxia with pneumonia Review of Systems Constitutional: as per Subjective / HPI Genitourinary: as per Subjective / HPI Physical Exam Constitutional: + thin and + frail appearing; no acute distress Chronically ill appearing Respiratory: no respiratory distress on 4L O2 NC Gastrointestinal (Abdomen): Inspection/Auscultation: abdomen normal to inspection Skin: Warm and dry. No visible rashes to exposed skin areas. Neurologic: awake Psychiatric: Orientation: alert, oriented x 3 and cooperative Results & Data ([facility]) Vital Signs (Past 12 Hours) Vital Signs Temp Pulse Pulse Resp BP BP BP 12/19/21 07:55 37.2 C 89 18 12/19/21 07:28 111 H 12/19/21 05:18 37 C 94 H 20 91/50 L 12/19/21 03:10 95 H 21 12/19/21 02:22 36.9 C 97 H 20 100/57 L 12/19/21 01:14 37.1 C 115 H 24 94/50 L 12/19/21 00:01 39 C H 130 H 24 12/18/21 23:50 100 H 22 12/18/21 23:30 121 H 12/18/21 22:59 39.4 C H 131 H 18 98/50 L BP Pulse Ox 12/19/21 07:55 147/77 H 96 12/19/21 07:28 12/19/21 05:18 98 12/19/21 03:10 96 12/19/21 02:22 94 12/19/21 01:14 93 12/19/21 00:01 130/54 L 91 12/18/21 23:50 92 12/18/21 23:30 12/18/21 22:59 90 PG Care Time/CCT Total # of Minutes Spent Total Time Spent with Patient: Total time spent is greater than 50% in coordination of care (as documented) at patient's floor/unit and/or counseling patient: Coding Level of Care Code 70465 Subseq Hosp Care Lvl 2 Diagnoses Obstructive uropathy N13.9 S/P ureteral stent placement Z96.0
[2021-12-19] MEDS: diphenhydrAMINE Capsule 25 MG CAP PO PRN (09:36)
[2021-12-19] MEDS: ACETAMINOPHEN 500 MG TAB PO PRN (09:36)
--- NOTE | 2021-12-19 11:42 | Hospitalist Progress Note ---
Date of Service December 19, 2021 Assessment & Plan (1) Fever: Plan: Spiked a fever again on the morning of 12/18, with new onset acute respiratory failure with hypoxia requiring 4 LNC and noted to have crackles on pulmonary examination Checked chest x-ray-shows multifocal pneumonia most pronounced in the right upper lobe Spiked another fever overnight on 12/18-12/19 and became mildly hypotensive, tachycardic in the 130s Responded to 2 L bolus of LR UA still not collected Suspect the fevers and sepsis at this time are from her pneumonia, but could have recurrent UTI -Continue Tylenol as needed for fever -Blood cultures drawn-no growth to date -Discussed with nursing and urology about obtaining UA intraoperatively during her stent exchange today -Added on cefepime on 12/18 to cover for Pseudomonas as she is already on meropenem in case of resistance -Continue caspofungin and meropenem as before to cover for previous UTI and empirically in case of fungemia in preparation for ureteral stent exchange which is happening on 12/19 (2) UTI (urinary tract infection): Plan: History of Hydronephrosis with Ureteral Stent Placement. - history of ureteral stents placed in 07/2021 and subsequent exchange every 3 months, with some delays due to acute medical issues - chronic obstruction hydronephrosis with candidal UTI and known colonization of her ureteral stents - Unfortunately, had associated UTIs since that time-this admission with ESBL Klebsiella -Urology consulted about stent exchange - Spoke with urology on 12/05. Recommend that she be evaluated by tertiary care center for stent removal and nephrostomy tubes. This was discussed with tertiary care who did not accept patient for nephrostomy tube placement, stent exchange was revisited with urology and was to be performed 12/15 but ultimately deferred due to acute anemia and hypotension. Completed course of meropenem on 12/06. Became febrile again 12/07, meropenem was restarted 12/08 for 10 day course Multiple discussions week of 12/15 with [facility] who did not accept patient for transfer for nephrostomy tube placement. Also discussed with [facility] who recommended outpatient follow-up as below. Caspofungin dose adjusted perioperatively with history of Rachelle glabrata, anticipate conversion back to fluconazole for prophylaxis after course of caspofungin complete Stent exchange again deferred 12/16 due to pressor requirements, critical illness and again deferred on 12/18 due to febrile illness and hypoxia with pneumonia -Finally went for ureteral stent exchange on 12/19 despite ongoing fevers-needed to do it while on caspofungin to have best chance of not inducing candidemia -Awaiting repeat UA after having fever on 12/18 -On 12/19, again asked patient if she would be willing to transfer for nephrostomy tube placement to a larger hospital that is used to having cancer patients with thrombocytopenia and an experienced IR department i.e. somewhere in [place] or [place] or [place]. She still is unsure if she would do that at this time (3) Sepsis: Plan: Sepsis- with recurrent UTI early in the course of admission, and now with pneumonia on 12/18 She is chronically neutropenic and immunosuppressed ESBL with Klebsiella pneumonia, patient did finish a course of meropenem on 12/06 but became febrile 24 hours on antibiotics and was recultured positive for ESBL E. coli sensitive to meropenem. 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, temporarily converted to caspofungin pending stent exchange-continue for at least 2 more days for stent exchange-through 12/21 -Then added on cefepime to cover in case of resistant Pseudomonas with pneumonia MRSA swab is negative-no need for MRSA coverage but if not improving with pneumonia, could consider adding on doxycycline as she is allergic to vancomycin and linezolid could cause pancytopenia Could also consider ceftaroline -Will consult ID for further recommendations as she is quite complex (4) Pancytopenia: Plan: Pancytopenia/secondary MDS - Patient with known 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 -S/p Neupogen 480 mcg SQ daily x 3 days-final dose on 11/29 -S/p Procrit 40,000 units x 1 on 11/29 - Received platelets on 11/27, 12/01, 12/02, 12/04, 12/06, 12/15, 12/18 12/19 - Received 2 units of PRBCs on 11/27 & 2 units on 12/06; 1 unit on 12/09, and 2 units on 12/16 Transfusion threshold 7 mg/DL, platelets less than 10K or active bleeding- platelets 7 today but she had just finished receiving a unit of platelet transfusion Patient difficult blood bank transfusion, requires [place] blood bank supply Discussed with PSSean hagan, patient was recommended for outpatient follow-up with repeat bone marrow biopsy, was not accepted/recommended for transfer. Discussion with [facility]. While patient could have bone marrow biopsy repeated here, first attempt was suboptimal and suggested that this be done by tertiary care where she would follow-up. May consider pending clinical course 12/15 routine Hgb decreased to 6.7, platelets less than 10K. Platelets given, blood ordered but delayed in transit. In the morning/early afternoon patient persistently hypotensive with MAP approximately [id number], wasfluid responsive but w ith continued anemia pending blood transfusion, she was transferred to the ICU for vasopressors with Levophed 12/16: Afebrile nonhemolytic reaction with blood transfusion, received Benadryl. (5) Acute respiratory failure with hypoxia: Plan: Acute Hypoxic Respiratory Failure. 11/23 sepsis with concern for recent Covid upon admission Then was on room air for several weeks, now back on 4 L nasal cannula as of 12/18 with sepsis and pneumonia Wean off as tolerated Treating pneumonia as above (6) Chronic kidney disease: Plan: CKD stage II-III (7) MDS (myelodysplastic syndrome): Plan: - As above. -Patient currently is transfusion dependent. - The patient has discussed her prognosis with multiple providers but does not want to pursue hospice care at this time. See goals discussion above - At this time we are only providing temporizing conditions with transfusions & IV abx. If her hemoglobin remained stable, she should follow up with [facility] as outpatient and will require a repeat marrow biopsy either before or at that appointment. 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 (11) Urge and stress incontinence: Plan: - Continue oxybutynin (12) UGIB (upper gastrointestinal bleed): Plan: Suspected UGIB upon initial arrival - History primarily concerning for hematemesis/UGIB based on recent odynophagia, "spitting up blood" (non-projectile), nausea, decreased appetite. ?hemoptysis or epistaxis - Known history of HCV-induced cirrhosis. Last EGD seems to be 10/2019, per Dr. Chavez's [facility] note, which did NOT reveal any esophageal varices; did show Z-line irregularities and esophageal plaques c/w candidiasis - No need for octreotide with no h/o known varices - Initially in setting of significant coagulopathy (INR 2.5, PTT 77.2, Plt 11) -- notably progressed since prior admission, coagulopathy improved after FFP and Vit K. - GI consulted: Defer EGD unless emergent/emergent specialist patient has not had any signs/symptoms of upper GI bleed or melena/blood per rectum. consider outpatient EGD. patient with high periprocedural risk, continue PPI converted to twice daily. Hemoccult negative. - Initially on PPI gtt now been converted to PPI po bid (13) COPD (chronic obstructive pulmonary disease): Plan: With a history of smoking and lung cancer. - Nebs as needed (14) Coagulopathy: Plan: Coagulopathy / Thrombocytopenia - Admission labs concerning for INR 2.5 / PTT 77.2 / PLT 11 in setting of H&H 7.9 on arrival - notably worse from previous. ALso D-dimer 5000 - Suspected secondary to DIC from sepsis, in setting of MDS, liver disease with HCV history, poor nutrition (Vit K deficiency possibility) - S/p 2 units FFP and Vit K and coags normalized 12/04 - Received platelets on 11/27, 12/01, 12/02, 12/03, 12/15, 12/16,12/18 -? Liver synthetic dysfunction versus nutritional deficiency with history of reported cirrhosis, treated hep C. Recent liver imaging with heterogenous texture but not cirrhotic in appearance. INR remains 1.4 with decreased hemoglobin, fibrinogen has not decreased, received vitamin K supplementation Hemoglobin improved as above (15) AURORA (acute kidney injury): Plan: Acute Kidney Injury - Has history of CKD with creatinine baseline around 0.7 - 0.9. Cr at baseline as of 12/04. - With fluids and blood products, returned to baseline. - Follow serial labs (16) Hx of Clostridium difficile infection: Plan: History of C. difficile Infection, loose BM earlier in admission since improved - On chronic vancomycin suppressive therapy twice weekly - Increased vancomycin 125 Mg p.o. once daily while on antibiotics (17) Cirrhosis of liver: Plan: - Noted with a history of hep C that has been treated (18) SACHA (obstructive sleep apnea): Plan: Obstructive Sleep Apnea - Utilizes CPAP qHS -- utilize while here (19) COVID-19: Plan: COVID-19 - Patient recently tested positive again for COVID-19, first time at the end of October. - During last hospitalization, was not hypoxic and therefore was not started on dexamethasone / remdesivir. - No steroids needed as her hypoxia is not from COVID. - As per infection control on 12/02, she can come off isolation precautions Plan: Disposition: Multiple goals of care discussions have been had throughout this hospitalization with multiple providers She reports an understanding of her medical condition, and that she would like to pursue treatments including ICU, pressors, CPR, and intubation if needed at this time. She understands that she is transfusion dependent, that she would likely need a repeat bone marrow biopsy for further hematology work-up and even at that she may not be a good candidate for transplant/treatment but she would like to pursue aggressive care at this time and follow-up on any options available to her. She does express understanding that many of these, especially CPR, would have a substantial compromise to her quality of life and surgical interventions could be futile to her given her level of medical fragility. She is able to verbalize this risk, but expresses she would want to pursue these at this time if there is a chance in extending the length of her life. Discussed with her family by phone, who expressed that while they feel that she may benefit from a palliative approach. I again discussed her care with her son on the phone on 12/19 and advised him of how ill she was. He will be coming to visit her later today Continued stay Admission and Anticipated Discharge Date Admission Date: November 26, 2021 Subjective Spiked fevers again overnight and this AM, borderline hypotensive and with sinus tachycardia into the 130s. Received 2L LR bolus and tachycardia improved, BP improved. Received tylenol and benadryl for plt transfusion. I discussed her care extensively with Urology this AM and plan to do stent exchange now while on Caspofungin. I again asked Aleja Haq if she would want to transfer to a larger hospital in [facility] or [facility] for nephrostomy tubes and she says she just doesn't know. No bleeding from anywhere. Has same lower abd pain no worse than previous. Remains on 4LNC. I also discussed her care with Pharmacy about extending the meropenem past today, continuing Caspo. Called her son Matt and updated him. He is aware of how sick she is. Review of Systems Review of Systems: All systems reviewed & are unremarkable except as noted in HPI & below Physical Exam Constitutional: + ill appearing and + thin; no acute distress Eyes: + anicteric sclerae Neck: trachea midline, no thyromegaly Respiratory: normal respiratory effort; no cough Auscultation: + diminished lung sounds (throughout) and + crackles (In the right middle and upper lung romero as well as left lower lung field); no rhonchi and no wheezes Cardiovascular: Rate/Rhythm: regular rhythm and + tachycardic Heart Sounds: no murmur Chest (Breasts): Chest: normal inspection of chest Gastrointestinal (Abdomen): normal bowel sounds, soft, nontender, no hepatosplenomegaly Musculoskeletal: Extremities: extremities normal to inspection; no cyanosis and no clubbing Skin: no rashes, warm and dry + ecchymosis (numerous areas of bruising and ecchymosis, petechiae on extremities) Neurologic: moves all extremities and awake; no focal motor deficits Psychiatric: A+Ox3, euthymic affect (But slightly more lethargic than usual) Orientation: cooperative Lymphatic: no lymphedema Results & Data Results & Data ([facility]) Vital Signs (Past 12 Hours) Vital Signs Temp Pulse Pulse Resp BP BP BP 12/19/21 11:02 37.9 C H 110 H 20 113/56 L 12/19/21 11:00 37.1 C 112 H 20 132/56 L 12/19/21 10:32 37.4 C 110 H 20 132/56 L 12/19/21 10:17 37.8 C H 117 H 18 118/74 12/19/21 09:59 37.1 C 116 H 20 123/57 L 12/19/21 07:55 37.2 C 89 18 12/19/21 07:28 111 H 12/19/21 05:18 37 C 94 H 20 91/50 L 12/19/21 03:10 95 H 21 12/19/21 02:22 36.9 C 97 H 20 100/57 L 12/19/21 01:14 37.1 C 115 H 24 94/50 L 12/19/21 00:01 39 C H 130 H 24 12/18/21 23:50 100 H 22 BP Pulse Ox 12/19/21 11:02 94 12/19/21 11:00 96 12/19/21 10:32 96 12/19/21 10:17 95 12/19/21 09:59 12/19/21 07:55 147/77 H 96 12/19/21 07:28 12/19/21 05:18 98 12/19/21 03:10 96 12/19/21 02:22 94 12/19/21 01:14 93 12/19/21 00:01 130/54 L 91 12/18/21 23:50 92 Laboratory Results 12/19/21 12/19/21 12/19/21 Range/Units 19:34 07:25 07:25 WBC 0.94 L* (4.8-10.8) K/uL RBC 3.51 L (4.2-5.4) M/uL Hgb 9.7 L (12.0-16.0) g/dL Hct 29.8 L (37-47) % MCV 84.9 (80-100) fL MCH 27.6 (25-34) pg MCHC 32.6 (32-36) g/dL RDW Std Deviation 49.0 H (36.4-46.3) fL RDW Coeff of Irasema 16.0 H (11.5-14.5) % Plt Count 7 L* (130-400) K/uL Absolute Nucleated RBC 0.02 H (0-0) K/uL Nucleated RBC % (auto) 2.4 % Neutrophils % (Manual) 60.3 % Lymphocytes % (Manual) 20.6 % Monocytes % (Manual) 3.2 % Basophils % (Manual) 3.2 % Myelocytes % (Man) 3.2 % Blast Cells % (Manual) 9.5 % Neutrophils # (Manual) 0.57 L (1.4-6.5) K/uL Total Absolute Neuts 0.57 L* (1.4-6.5) K/uL Lymphocytes # (Manual) 0.19 L (1.2-3.4) K/uL Total Abs Lymphocytes 0.19 L (1.2-3.4) K/uL Monocytes # (Manual) 0.03 L (0.11-0.59) K/uL Basophils # (Manual) 0.03 (0-0.2) K/uL Myelocytes # (Manual) 0.03 H (0-0) K/uL Blast Cells # (Man) 0.09 H (0-0) K/uL Hyposegmented Neuts 1+ Hypogranular Neuts 1+ Platelet Estimate SIGNIFIC DECREASED (Normal) Sodium 133 L (136-145) mmol/L Potassium 4.0 (3.5-5.1) mmol/L Chloride 102 (98-107) mmol/L Carbon Dioxide 23 (21-32) mmol/L Anion Gap 8 (3-11) BUN 19 (6-23) mg/dl Creatinine 0.91 (0.6-1.2) mg/dl Est Cr Clr Drug Dosing 49.9 ml/min Est GFR ( Amer) 76.2 ml/min Est GFR (Non-Af Amer) 65.7 ml/min BUN/Creatinine Ratio 20.9 H (10-20) Glucose 119 H (70-99(Fasting)) mg/dl Lactate (0.4-2.0) mmol/L Calcium 7.3 L (8.5-10.1) mg/dl Phosphorus 3.8 D (2.5-4.9) mg/dl Magnesium 2.3 (1.7-2.4) mg/dl Procalcitonin (0-0.5) ng/ml Urine Color Red Urine Appearance Turbid A (Clear) Urine pH 7.5 (4.5-7.5) Ur Specific [place] 1.025 (1.000-1.030) Urine Protein 3+ H (Negative) Urine Glucose (UA) Negative (Negative) Urine Ketones Negative (Negative) Urine Blood 3+ H (Negative) Urine Nitrite Negative (Negative) Urine Bilirubin 1+ H (Negative) Urine Urobilinogen Negative (Negative) Ur Leukocyte Esterase Trace H (Negative) Urine RBC >30 H (0-4) /hpf Urine WBC 0-5 (0-5) /hpf Ur Epithelial Cells 0-5 (0-5) /lpf Urine Bacteria Negative (Negative) Blood Type Antibody Screen Antibody Identification Antibody ID Comment Crossmatch 12/19/21 12/18/2112/18/22 Range/Units 00:14 23:58 23:58 WBC (4.8-10.8) K/uL RBC (4.2-5.4) M/uL Hgb (12.0-16.0) g/dL Hct (37-47) % MCV (80-100) fL MCH (25-34) pg MCHC (32-36) g/dL RDW Std Deviation (36.4-46.3) fL RDW Coeff of Irasema (11.5-14.5) % Plt Count (130-400) K/uL Absolute Nucleated RBC (0-0) K/uL Nucleated RBC % (auto) % Neutrophils % (Manual) % Lymphocytes % (Manual) % Monocytes % (Manual) % Basophils % (Manual) % Myelocytes % (Man) % Blast Cells % (Manual) % Neutrophils # (Manual) (1.4-6.5) K/uL Total Absolute Neuts (1.4-6.5) K/uL Lymphocytes # (Manual) (1.2-3.4) K/uL Total Abs Lymphocytes (1.2-3.4) K/uL Monocytes # (Manual) (0.11-0.59) K/uL Basophils # (Manual) (0-0.2) K/uL Myelocytes # (Manual) (0-0) K/uL Blast Cells # (Man) (0-0) K/uL Hyposegmented Neuts Hypogranular Neuts Platelet Estimate (Normal) Sodium 132 L (136-145) mmol/L Potassium 4.0 D (3.5-5.1) mmol/L Chloride 101 (98-107) mmol/L Carbon Dioxide 22 (21-32) mmol/L Anion Gap 9 (3-11) BUN 19 (6-23) mg/dl Creatinine 0.91 (0.6-1.2) mg/dl Est Cr Clr Drug Dosing 45.9 ml/min Est GFR ( Amer) 76.2 ml/min Est GFR (Non-Af Amer) 65.7 ml/min BUN/Creatinine Ratio 20.9 H (10-20) Glucose 155 H (70-99(Fasting)) mg/dl Lactate 2.0 (0.4-2.0) mmol/L Calcium 7.8 L (8.5-10.1) mg/dl Phosphorus (2.5-4.9) mg/dl Magnesium 1.6 L (1.7-2.4) mg/dl Procalcitonin 0.75 H (0-0.5) ng/ml Urine Color Urine Appearance (Clear) Urine pH (4.5-7.5) Ur Specific [place] (1.000-1.030) Urine Protein (Negative) Urine Glucose (UA) (Negative) Urine Ketones (Negative) Urine Blood (Negative) Urine Nitrite (Negative) Urine Bilirubin (Negative) Urine Urobilinogen (Negative) Ur Leukocyte Esterase (Negative) Urine RBC (0-4) /hpf Urine WBC (0-5) /hpf Ur Epithelial Cells (0-5) /lpf Urine Bacteria (Negative) Blood Type Antibody Screen Antibody Identification Antibody ID Comment Crossmatch 12/18/21 12/15/21 Range/Units 23:58 09:37 WBC 0.74 L* (4.8-10.8) K/uL RBC 3.44 L (4.2-5.4) M/uL Hgb 9.6 L (12.0-16.0) g/dL Hct 29.1 L (37-47) % MCV 84.6 (80-100) fL MCH 27.9 (25-34) pg MCHC 33.0 (32-36) g/dL RDW Std Deviation 48.5 H (36.4-46.3) fL RDW Coeff of Irasema 15.7 H (11.5-14.5) % Plt Count 6 L* (130-400) K/uL Absolute Nucleated RBC 0.03 H (0-0) K/uL Nucleated RBC % (auto) 3.7 % Neutrophils % (Manual) % Lymphocytes % (Manual) % Monocytes % (Manual) % Basophils % (Manual) % Myelocytes % (Man) % Blast Cells % (Manual) % Neutrophils # (Manual) (1.4-6.5) K/uL Total Absolute Neuts (1.4-6.5) K/uL Lymphocytes # (Manual) (1.2-3.4) K/uL Total Abs Lymphocytes (1.2-3.4) K/uL Monocytes # (Manual) (0.11-0.59) K/uL Basophils # (Manual) (0-0.2) K/uL Myelocytes # (Manual) (0-0) K/uL Blast Cells # (Man) (0-0) K/uL Hyposegmented Neuts Hypogranular Neuts Platelet Estimate SIGNIFIC DECREASED (Normal) Sodium (136-145) mmol/L Potassium (3.5-5.1) mmol/L Chloride (98-107) mmol/L Carbon Dioxide (21-32) mmol/L Anion Gap (3-11) BUN (6-23) mg/dl Creatinine (0.6-1.2) mg/dl Est Cr Clr Drug Dosing ml/min Est GFR ( Amer) ml/min Est GFR (Non-Af Amer) ml/min BUN/Creatinine Ratio (10-20) Glucose (70-99(Fasting)) mg/dl Lactate (0.4-2.0) mmol/L Calcium (8.5-10.1) mg/dl Phosphorus (2.5-4.9) mg/dl Magnesium (1.7-2.4) mg/dl Procalcitonin (0-0.5) ng/ml Urine Color Urine Appearance (Clear) Urine pH (4.5-7.5) Ur Specific [place] (1.000-1.030) Urine Protein (Negative) Urine Glucose (UA) (Negative) Urine Ketones (Negative) Urine Blood (Negative) Urine Nitrite (Negative) Urine Bilirubin (Negative) Urine Urobilinogen (Negative) Ur Leukocyte Esterase (Negative) Urine RBC (0-4) /hpf Urine WBC (0-5) /hpf Ur Epithelial Cells (0-5) /lpf Urine Bacteria (Negative) Blood Type B Positive Antibody Screen POSITIVE A Antibody Identification Anti-E Antibody ID Comment Cancelled Crossmatch See Detail PG Care Time/CCT Total # of Minutes Spent Total Time Spent with Patient: Total time spent is greater than 50% in coordination of care (as documented) at patient's floor/unit and/or counseling patient: Coding Level of Care Code 19427 Subseq Hosp Care Lvl 3 Diagnoses Fever R50.9 UTI (urinary tract infection) N39.0 Sepsis A41.9 Pancytopenia D61.818 Acute respiratory failure with hypoxia J96.01 Chronic kidney disease N18.9 MDS (myelodysplastic syndrome) D46.9 Migraine G43.909 Celiac disease K90.0 Prothrombin [id number] mutation D68.52 Urge and stress incontinence N39.46 UGIB (upper gastrointestinal bleed) K92.2 COPD (chronic obstructive pulmonary disease) J44.9 Coagulopathy D68.9 AURORA (acute kidney injury) N17.9 Hx of Clostridium difficile infection Z86.19 Cirrhosis of liver K74.60 SACHA (obstructive sleep apnea) G47.33 COVID-19 U07.1
[2021-12-19] MEDS ORDERED: PROPOFOL IV EMULSION 10 MG/ML 20 ML VIAL IV ONE (12:32)
[2021-12-19] MEDS ORDERED: DIATRIZOATE MEGLUMINE 30% 100ML VIAL INSTIL ONE (12:43)
--- NOTE | 2021-12-19 12:56 | Operative Report ---
PG Post Operative Report Pre & Post Diagnosis Operation Date: 12/19/21 12:50 Pre-Op Diagnosis: ACUTE ANEMIA Post-Op Diagnosis: ACUTE ANEMIA I identified the patient and participated in the time-out.: Yes Procedure Operation Date: 12/19/21 12:50 Actual Procedures p Cystoscopy with Bilateral Stent Exchange and Retrograde pyelograms(Bilateral) - Luis Cervantes DO Surgeon Luis Cervantes, II, DO Formula Clerk None Estimated Blood Loss 1 Findings Consistent with Post-Op Diagnosis Stents exchanged and placed in good position. Moderate debris on ureteral stents bilaterally. Severe hydronephrosis and hydroureter on right with significant narrowing on left. Specimens None Drains 6 Fr x 22 cm bilateral Anesthesia Type MAC Complications none Disposition Disposition: Recovery Room Indications Patient with obstruction with chronic stent changes with Glabrata colonization/Funguria. Risks and benefits discussed at length. Description of Procedure Patient was consented and brought back to the operating room. Patient was placed under anesthesia in the supine position and moved to the dorsal lithotomy position. Patient was prepped and draped in the regular sterile fashion. A time out was completed. A 30degree Cystoscope was placed into the bladder and the entire bladder was examined. The UO's were identified. The left stent was grasped and partially removed. A wire was then placed and the stent fully removed. The UO was cannulized over the wire with a dual lumen catheter and a retrograde pyelogram was completed. The wire was maintained and the catheter removed. With the wire in place, a 6 Fr Double J stent was placed. It was confirmed with fluoroscopy. This was then completed for the right stent. With the stents in place, the bladder was emptied. The scope was removed. The patient was cleaned, aroused from anesthesia, and transferred to the pacu in stable condition having tolerated the procedure well with no complications. I was present and participated in all aspects of the procedure. The patient will be monitored in the PACU until transferred. Plan to monitor post procedure. In hospital most recently with Pneumonia as well as chronic severe pancytopenia. I attest to the content of the Intraoperative Record and any orders documented therein. Any exceptions are noted below.
[2021-12-19] MEDS: FERROUS SULFATE 325 MG TAB PO SCH (12:58)
[2021-12-19] MEDS: CETIRIZINE HCL 10 MG TABLET PO SCH (12:58)
[2021-12-19] MEDS: ACYCLOVIR 400 MG TAB PO SCH ×2 (12:58→21:38)
[2021-12-19] MEDS: FOLIC ACID 1 MG TAB PO SCH (12:59)
[2021-12-19] MEDS: ADVANCED PROBIOTIC 1250 MG CAPSULE PO SCH (12:59)
[2021-12-19] MEDS: FLUTICASONE/VILANTEROL 100/25MCG 14 PUFFS/INHALER INH SCH (12:59)
[2021-12-19] MEDS: GABAPENTIN 400 MG CAP PO SCH (12:59)
[2021-12-19] MEDS: PANTOprazole 40 MG TAB PO SCH ×2 (13:00→21:38)
[2021-12-19] MEDS: MAGNESIUM OXIDE 400 MG TAB PO SCH (13:00)
[2021-12-19] MEDS: OXYBUTYNIN CHLORIDE XL 5 MG TABCR PO SCH (13:00)
[2021-12-19] MEDS: RASPBERRY SYRUP 5 ML UDP PO SCH (13:01)
[2021-12-19] MEDS: VANCOMYCIN HCL 125 MG/2.5ML SOLN PO SCH (13:01)
[2021-12-19] MEDS: TOPIRAMATE 100 MG TAB PO SCH ×2 (13:01→21:39)
[2021-12-19] MEDS ORDERED: SODIUM CHLORIDE 0.9% 1000ML 1,000 ML IV SCH (13:30)
--- NOTE | 2021-12-19 13:43 | Anesthesiology Progress Note ---
Date of Service December 19, 2021 Anesthesia Post Procedure Vital Signs Vital Signs: Temp Pulse Pulse Pulse Pulse Resp BP 12/19/21 13:35 86 20 12/19/21 13:25 36.4 C L 83 20 12/19/21 13:15 84 20 12/19/21 13:05 36.3 C L 93 H 16 12/19/21 11:47 36.8 C 96 H 20 12/19/21 11:02 37.9 C H 110 H 20 113/56 L 12/19/21 11:00 37.1 C 112 H 20 12/19/21 10:32 37.4 C 110 H 20 132/56 L 12/19/21 10:17 37.8 C H 117 H 18 118/74 12/19/21 09:59 37.1 C 116 H 20 123/57 L 12/19/21 07:55 37.2 C 89 18 12/19/21 07:28 111 H 12/19/21 05:18 37 C 94 H 20 91/50 L 12/19/21 03:10 95 H 21 12/19/21 02:22 36.9 C 97 H 20 12/19/21 01:14 37.1 C 115 H 24 12/19/21 00:01 39 C H 130 H 24 12/18/21 23:50 100 H 22 12/18/21 23:30 121 H 12/18/21 22:59 39.4 C H 131 H 18 12/18/21 19:27 36.8 C 98 H 18 12/18/21 16:46 108 H 12/18/21 15:20 37 C 112 H 18 BP BP BP Pulse Ox 12/19/21 13:35 109/59 L 92 12/19/21 13:25 106/51 L 92 12/19/21 13:15 95/53 L 97 12/19/21 13:05 81/54 L 95 12/19/21 11:47 109/48 L 95 12/19/21 11:02 94 12/19/21 11:00 132/56 L 96 12/19/21 10:32 96 12/19/21 10:17 95 12/19/21 09:59 12/19/21 07:55 147/77 H 96 12/19/21 07:28 12/19/21 05:18 98 12/19/21 03:10 96 12/19/21 02:22 100/57 L 94 12/19/21 01:14 94/50 L 93 12/19/21 00:01 130/54 L 91 12/18/21 23:50 92 12/18/21 23:30 12/18/21 22:59 98/50 L 90 12/18/21 19:27 123/63 90 12/18/21 16:46 12/18/21 15:20 102/59 L 90 Pain Intensity Back: Pain Intensity: 4 Abdomen: Pain Intensity: 8 Transfer of Care Handoff Completed per policy Notes Mental Status: alert / awake / arousable and participated in evaluation Patient Amnestic to Procedure: Yes Nausea / Vomiting: adequately controlled Pain: adequately controlled Airway Patency, RR, SpO2: stable & adequate BP & HR: stable & adequate Hydration State: stable & adequate Anesthetic Complications: no major complications apparent
--- NOTE | 2021-12-19 13:57 | Fluoroscopy Report ---
FL retrograde includes kub CLINICAL HISTORY: B/L CYSTO STENT EXCHANGE COMPARISON STUDY: None. FLUOROSCOPY TIME: 40 seconds. FINDINGS: 13 fluoroscopic spot images of the abdomen and pelvis demonstrate retrograde opacification of bilateral renal collecting systems followed by placement of bilateral ureteral stents. These appea r in good position. There is bilateral hydronephrosis noted. IMPRESSION: Fluoroscopic assistance for bilateral ureteral stent placement which appear in good posit ion. ACT 112: Negative or not required by law. Electronically signed by: Jimi Bangura M.D. 12/19/2021 1:56 PM
[2021-12-19] MEDS: oxyCODONE HCL IR 5 MG TAB (IMMEDIATE RELEASE) PO PRN (15:36)
[2021-12-19] MEDS: ONDANSETRON INJ 2 MG/ML 2 ML VIAL IV PRN (18:50)
[2021-12-19] MEDS: CASPOFUNGIN 35 MG in SODIUM CHLORIDE 0.9% 250 ML IV SCH (18:52)
[2021-12-19 19:55] LABS: Appearance Urine Turbid (Clear); Bilirubin Urine 1+ (Negative); Blood Urine 3+ (Negative); Color Urine Red; Glucose Urine UA Negative (Negative); Ketones Urine Negative (Negative); Leukocyte Esterase Urine Trace (Negative); Nitrite Urine Negative (Negative); Protein Urine 3+ (Negative); Specific Gravity Urine 1.025 (1.000-1.030); Urobilinogen Urine Negative (Negative); pH Urine 7.5 (4.5-7.5)
[2021-12-19 20:02] LABS: Epithelial Cell Urine 0-5 /lpf (0-5); RBC Urine >30 /hpf (0-4)
[2021-12-19 20:03] LABS: Bacteria Urine Negative (Negative); WBC Urine 0-5 /hpf (0-5)
[2021-12-19] MEDS: SERTRALINE HCL 50 MG TABLET PO SCH (21:38)
[2021-12-19] MEDS: clonazePAM 0.5 MG TAB PO SCH (21:38)
[2021-12-19] MEDS: METHOCARBAMOL 750 MG TABLET PO PRN (21:38)
[2021-12-19] MEDS: QUEtiapine FUMARATE 25 MG TABLET PO SCH (21:38)
[2021-12-19] MEDS: MIRABEGRON ER 25 MG TAB PO SCH (21:40)
[2021-12-20] MEDS: CEFEPIME 2,000 MG in SYRINGE 0 ML IV SCH ×2 (00:02→13:50)
[2021-12-20] MEDS: MEROPENEM 500 MG in SYRINGE 0 ML IV SCH ×3 (05:29→21:35)
[2021-12-20] MEDS ORDERED: LACTATED RINGER'S 1,000 ML IV SCH (08:15)
[2021-12-20 08:44] LABS: Hematocrit (blood only) 25.9 % (37-47); Hemoglobin 8.6 g/dL (12.0-16.0); Mean Corpuscular Hgb Conc 33.2 g/dL (32-36); Mean Corpuscular Volume 84.4 fL (80-100); Platelet Count 7 K/uL (130-400); RDW Standard Deviation 48.8 fL (36.4-46.3); Red Blood Count 3.07 M/uL (4.2-5.4); White Blood Count 0.72 K/uL (4.8-10.8)
[2021-12-20 08:47] LABS: Ovalocytes 1+; Platelet Estimate SIGNIFIC DECREASED (Normal); Target Cells 1+; Toxic Granulation 1+
[2021-12-20 08:52] LABS: ALC (manual) 0.18 K/uL (1.2-3.4); ANC (manual) 0.37 K/uL (1.4-6.5); Basophils # (manual) 0.03 K/uL (0-0.2); Blast # (manual) 0.02 K/uL (0-0); Blast Cells % (manual) 2.7 %; Eosinophils # (manual) 0.03 K/uL (0-0.5); Lymphocytes # (manual) 0.18 K/uL (1.2-3.4); Lymphocytes % (manual) 25.3 %; Metamyelocytes # (manual) 0.01 K/uL (0-0); Metamyelocytes % (manual) 1.3 %; Monocytes # (manual) 0.05 K/uL (0.11-0.59); Monocytes % (manual) 6.7 %; Myelocytes # (manual) 0.03 K/uL (0-0); Neutrophils # (manual) 0.37 K/uL (1.4-6.5)
[2021-12-20 08:56] LABS: Albumin Level 2.1 gm/dl (3.4-5.0); BUN Creatinine Ratio 19.5 (10-20); Bilirubin,Total 0.5 mg/dl (0.2-1.0); Calcium 7.5 mg/dl (8.5-10.1); Creatinine Clr Calc Pharmacy 35.8 ml/min; Est GFR (African American) 50.4 ml/min; Est GFR (Non-African American) 43.5 ml/min; Globulin 2.1 gm/dl (2.5-4.0); Magnesium 2.2 mg/dl (1.7-2.4); Phosphorus 4.8 mg/dl (2.5-4.9); Potassium 3.8 mmol/L (3.5-5.1); Total Protein 4.2 gm/dl (6.0-8.3)
[2021-12-20] MEDS: TOPIRAMATE 100 MG TAB PO SCH ×2 (09:36→21:11)
[2021-12-20] MEDS: METHOCARBAMOL 750 MG TABLET PO PRN ×2 (09:36→21:07)
[2021-12-20] MEDS: PANTOprazole 40 MG TAB PO SCH ×2 (09:36→21:11)
[2021-12-20] MEDS: ACYCLOVIR 400 MG TAB PO SCH ×2 (09:36→21:11)
[2021-12-20] MEDS: FERROUS SULFATE 325 MG TAB PO SCH (09:37)
[2021-12-20] MEDS: GABAPENTIN 400 MG CAP PO SCH (09:37)
[2021-12-20] MEDS: PHENAZOPYRIDINE HCL 200 MG TAB PO PRN (09:37)
[2021-12-20] MEDS: FOLIC ACID 1 MG TAB PO SCH (09:38)
[2021-12-20] MEDS: CETIRIZINE HCL 10 MG TABLET PO SCH (09:38)
[2021-12-20] MEDS: FLUTICASONE/VILANTEROL 100/25MCG 14 PUFFS/INHALER INH SCH (09:38)
[2021-12-20] MEDS: ADVANCED PROBIOTIC 1250 MG CAPSULE PO SCH (09:38)
[2021-12-20] MEDS: OXYBUTYNIN CHLORIDE XL 5 MG TABCR PO SCH (09:38)
[2021-12-20] MEDS: MAGNESIUM OXIDE 400 MG TAB PO SCH (09:39)
[2021-12-20] MEDS: RASPBERRY SYRUP 5 ML UDP PO SCH (09:53)
[2021-12-20] MEDS: VANCOMYCIN HCL 125 MG/2.5ML SOLN PO SCH (09:54)
[2021-12-20] MEDS: METOPROLOL SUCC 25MG EXT REL TAB PO SCH (10:41)
--- NOTE | 2021-12-20 13:41 | Urology Progress Note ---
Date of Service December 20, 2021 Assessment & Plan (1) Obstructive uropathy: (2) S/P ureteral stent placement: Plan: 66yo F with an extensive past medical history admitted with significant coagulopathy and thrombocytopenia on arrival and found to have GI bleed, Covid p ositive, and sepsis. Urology initially consulted for sepsis/UTI in the setting of chronic indwelling bilateral ureteral stents. However, given her multiple acute issues including Covid-19 infection on admission, no intervention was indicated at that time. Discussion of proceeding with stent exchange when medically stable verses nephrostomy tubes was considered. Multiple discussions between urology/Dr. Cervantes and hospital team.Pt was not accepted for transfer for nephrostomy tube placement. Plan was to proceed with bilateral stent exchange when medically optimized. - Pt POD #1 s/p cystoscopy and bilateral stent exchange with Dr. Cervantes. - Afebrile overnight, lab work reviewed - creatinine 1.28, WBC 0.72, Hgb 8.6, platelets 7. - UCx 2/ with Klebsiella ESBL - Treated with course of IV Meropenem.Repeat UCx 12/08 negative.Repeat UCx 12/14 no growth. - Blood cultures / and repeat 12/07 negative. Repeat 12/18 no growth x 48 hours. - Currently on IV Meropenem and Caspofungin, also IV Cefepime for presumed PNA. - Tolerating bilateral ureteral stents with mild bother. - Voiding spontaneously, continue to monitor. - Continue supportive care, antibiotics/antifungals and acute care management per hospital team. - Will arrange outpatient follow-up with our service. - will follow peripherally, please contact our service with any additional questions, concerns. Admission and Anticipated Discharge Date Admission Date: November 26, 2021 Subjective Pt seen and examined at bedside this afternoon. She is awake, alert and resting in bed. No acute issues overnight. Reports generalized pain "all over." Reports some mild discomfort in flank and abdomen generalized. Notes pain is currently tolerable, has not been utilizing pain medication. She is voiding spontaneously on bedpan. Mild dysuria and hematuria post procedure. Denies fever, chills, nausea or vomiting. Offers no additional concerns at present. Review of Systems Constitutional: as per Subjective / HPI Gastrointestinal: as per Subjective / HPI Genitourinary: as per Subjective / HPI Physical Exam Constitutional: + thin and + frail appearing; no acute distress chronically ill appearing Respiratory: no respiratory distress and no labored breathing O2 via nasal cannula Cardiovascular: Extremities: + edema (mild edema of bilateral lower extremities) Gastrointestinal (Abdomen): Inspection/Auscultation: abdomen normal to inspection; abdomen not distended Percussion/Palpation: + abdomen tender (mildly tender to palpation across lower abdomen bilaterally) and abdomen soft; no guarding Musculoskeletal: Head/Neck/Chest: normocephalic and head atraumatic Skin: Face appears flushed; skin of bilateral lower extremities with hyperpigmentation, taut and dry Neurologic: moves all extremities and awake Psychiatric: Orientation: alert and oriented x 3 Genitourinary: no CVA tenderness Results & Data ([facility]) Vital Signs (Past 12 Hours) Vital Signs Temp Pulse Pulse Resp BP Pulse Ox 12/20/21 11:20 36.2 C L 105 H 20 148/66 H 93 12/20/21 07:22 36.3 C L 106 H 19 117/54 L 90 12/20/21 07:00 105 H 12/20/21 03:25 36.6 C 104 H 26 H 124/54 L 94 PG Care Time/CCT Total # of Minutes Spent Total Time Spent with Patient: Total time spent is greater than 50% in coordination of care (as documented) at patient's floor/unit and/or counseling patient: Coding Level of Care Code 59591 Subseq Hosp Care Lvl 2 Diagnoses Obstructive uropathy N13.9 S/P ureteral stent placement Z96.0
[2021-12-20] MEDS: oxyCODONE HCL IR 5 MG TAB (IMMEDIATE RELEASE) PO PRN (17:47)
[2021-12-20] MEDS: CASPOFUNGIN 35 MG in SODIUM CHLORIDE 0.9% 250 ML IV SCH (17:47)
--- NOTE | 2021-12-20 18:11 | Hospitalist Progress Note ---
Date of Service December 20, 2021 Assessment & Plan (1) Fever: Plan: Spiked a fever again on the morning of 12/18, with new onset acute respiratory failure with hypoxia requiring 4 LNC and noted to have crackles on pulmonary examination Checked chest x-ray-shows multifocal pneumonia most pronounced in the right upper lobe Spiked another fever overnight on 12/18-12/19 and became mildly hypotensive, tachycardic in the 130s Responded to 2 L bolus of LR UA repeat on 12/19 without evidence of infection Suspect the fevers and sepsis at this time are from her pneumonia Fever now resolved -Continue Tylenol as needed for fever -Blood cultures drawn-no growth to date -Added on cefepime on 12/18 to cover for Pseudomonas as she is already on meropenem in case of resistance. HOWEVER first noticed red color to skin while had fever 12/19, then developed worsening erythema and large bullae right lateral thigh on 12/20--> likely allergic reaction to Cefepime -dc Cefepime and add to allergy list -start aztreonam for gram neg PNA -Continue caspofungin and meropenem as before to cover for previous UTI and empirically in case of fungemia now s/p ureteral stent exchange from 12/19 (2) UTI (urinary tract infection): Plan: History of Hydronephrosis with Ureteral Stent Placement. - history of ureteral stents placed in 07/2021 and subsequent exchange every 3 months, with some delays due to acute medical issues - chronic obstruction hydronephrosis with candidal UTI and known colonization of her ureteral stents - Unfortunately, had associated UTIs since that time-this admission with ESBL Klebsiella -Urology consulted about stent exchange - Spoke with urology on 12/05. Recommend that she be evaluated by tertiary care center for stent removal and nephrostomy tubes. This was discussed with tertiary care who did not accept patient for nephrostomy tube placement, stent exchange was revisited with urology and was to be performed 12/15 but ultimately deferred due to acute anemia and hypotension. Completed course of meropenem on 12/06. Became febrile again 12/07, meropenem was restarted 12/08 for 10 day course Multiple discussions week of 12/15 with [facility] who did not accept patient for transfer for nephrostomy tube placement. Also discussed with [facility] hematology who recommended outpatient follow-up as below. Caspofungin dose a djusted perioperatively with history of Rachelle glabrata, anticipate conversion back to fluconazole for prophylaxis after course of caspofungin complete Stent exchange again deferred 12/16 due to pressor requirements, critical illness and again deferred on 12/18 due to febrile illness and hypoxia with pneumonia -Finally went for ureteral stent exchange on 12/19 despite ongoing fevers-needed to do it while on caspofungin to have best chance of not inducing candidemia repeat UA 12/19 neg for infection -On 12/19, again asked patient if she would be willing to transfer for nep hrostomy tube placement to a larger hospital that is used to having cancer patients with thrombocytopenia and an experienced IR department i.e. somewhere in [place] or [place] or [place]. She still is unsure if she would do that at this time (3) Sepsis: Plan: Sepsis- with recurrent UTI early in the course of admission, and now with pneumonia on 12/18 She is chronically neutropenic and immunosuppressed ESBL with Klebsiella pneumonia, patient did finish a course of meropenem on 12/06 but became febrile 24 hours on antibiotics and was recultured positive for ESBL E. coli sensitive to meropenem. 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, temporarily converted to caspofungin pending stent exchange-continue for at least 2 more days for stent exchange-through 12/21 -Then added on cefepime to cover in case of resistant Pseudomonas with pneumonia on 12/18 -allergic reaction to Cefepime 12/19 with rash and bullae developing 12/20--> stop Cefepime, start Aztrenam MRSA swab is negative-no need for MRSA coverage but if not improving with pneumonia, could consider adding on doxycycline as she is allergic to vancomycin and linezolid could cause pancytopenia Could also consider ceftaroline -Will consult ID for further recommendations as she is quite complex-awaiting consult results (4) Pancytopenia: Plan: Pancytopenia/secondary MDS - Patient with known 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 -S/p Neupogen 480 mcg SQ daily x 3 days-final dose on 11/29 -S/p Procrit 40,000 units x 1 on 11/29 - Received platelets on 11/27, 12/01, 12/02, 12/04, 12/06, 12/15, 12/18 12/19 - Received 2 units of PRBCs on 11/27 & 2 units on 12/06; 1 unit on 12/09, and 2 units on 12/16 Transfusion threshold 7 mg/DL,-platelets 7 today-no transfusion unless bleeding Patient difficult blood bank transfusion, requires [place] blood bank supply Discussed with PS danya, patient was recommended for outpatient follow-up with repeat bone marrow biopsy, was not accepted/recommended for transfer. Discussion with [facility]. While patient could have bone marrow biopsy repeated here, first attempt was suboptimal and suggested that this be done by tertiary care where she would follow-up. May consider pending clinical course 12/15 routine Hgb decreased to 6.7, platelets less than 10K. Platelets given, blood ordered but delayed in transit. In the morning/early afternoon patient persistently hypotensive with MAP approximately [id number], wasfluid responsive but with continued anemia pending blood transfusion, she was transferred to the ICU for vasopressors with Levophed 12/16: Afebrile nonhemolytic reaction with blood transfusion, received Benadryl. (5) Acute respiratory failure with hypoxia: Plan: Acute Hypoxic Respiratory Failure. 11/23 sepsis with concern for recent Covid upon admission Then was on room air for several weeks, now back on 4 L nasal cannula as of 12/18 with sepsis and pneumonia Wean off as tolerated Treating pneumonia as above (6) Chronic kidney disease: Plan: CKD stage II-III (7) MDS (myelodysplastic syndrome): Plan: - As above. -Patient currently is transfusion dependent. - The patient has discussed her prognosis with multiple providers but does not want to pursue hospice care at this time. See goals discussion above - At this time we are only providing temporizing conditions with transfusions & IV abx. If her hemoglobin remained stable, she should follow up with [facility] as outpatient and will require a repeat marrow biopsy either before or at that appointment. 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 (11) Urge and stress incontinence: Plan: - Continue oxybutynin (12) UGIB (upper gastrointestinal bleed): Plan: Suspected UGIB upon initial arrival - History primarily concerning for hematemesis/UGIB based on recent odynophagia, "spitting up blood" (non-projectile), nausea, decreased appetite. ?hemoptysis or epistaxis - Known history of HCV-induced cirrhosis. Last EGD seems to be 10/2019, per Dr. Chavez's [facility] note, which did NOT reveal any esophageal varices; did show Z-line irregularities and esophageal plaques c/w candidiasis - No need for octreotide with no h/o known varices - Initially in setting of significant coagulopathy (INR 2.5, PTT 77.2, Plt 11) -- notably progressed since prior admission, coagulopathy improved after FFP and Vit K. - GI consulted: Defer EGD unless emergent/emergent specialist patient has not mandujano d any signs/symptoms of upper GI bleed or melena/blood per rectum. consider outpatient EGD. patient with high periprocedural risk, continue PPI converted to twice daily. Hemoccult negative. - Initially on PPI gtt now been converted to PPI po bid (13) COPD (chronic obstructive pulmonary disease): Plan: With a history of smoking and lung cancer. - Nebs as needed (14) Coagulopathy: Plan: Coagulopathy / Thrombocytopenia - Admission labs concerning for INR 2.5 / PTT 77.2 / PLT 11 in setting of H&H 7.9 on arrival - notably worse from previous. ALso D-dimer 5000 - Suspected secondary to DIC from sepsis, in setting of MDS, liver disease with HCV history, poor nutrition (Vit K deficiency possibility) - S/p 2 units FFP and Vit K and coags normalized 12/04 - Received platelets on 11/27, 12/01, 12/02, 12/03, 12/15, 12/16,12/18 -? Liver synthetic dysfunction versus nutritional deficiency with history of reported cirrhosis, treated hep C. Recent liver imaging with heterogenous texture but not cirrhotic in appearance. INR remains 1.4 with decreased hemoglobin, fibrinogen has not decreased, received vitamin K supplementation Hemoglobin improved as above (15) AURORA (acute kidney injury): Plan: Acute Kidney Injury - Has history of CKD with creatinine baseline around 0.7 - 0.9. Cr at baseline as of 12/04. - With fluids and blood products, returned to baseline, but now learning operations specialist up slightly to 1.2 after most recent bout of sepsis and ureteral stent exchange - Follow serial labs -gave another 1 L LR today (16) Hx of Clostridium difficile infection: Plan: History of C. difficile Infection, loose BM earlier in admission since improved - On chronic vancomycin suppressive therapy twice weekly - Increased vancomycin 125 Mg p.o. once daily while on antibiotics (17) Cirrhosis of liver: Plan: - Noted with a history of hep C that has been treated (18) SACHA (obstructive sleep apnea): Plan: Obstructive Sleep Apnea - Utilizes CPAP qHS -- utilize while here (19) COVID-19: Plan: COVID-19 - Patient recently tested positive again for COVID-19, first time at the end of October. - During last hospitalization, was not hypoxic and therefore was not started on dexamethasone / remdesivir. - No steroids needed as her hypoxia is not from COVID. - As per infection control on 12/02, she can come off isolation precautions Plan: Disposition: Multiple goals of care discussions have been had throughout this hospitalization with multiple providers She reports an understanding of her medical condition, and that she would like to pursue treatments including ICU, pressors, CPR, and intubation if needed at this time. She understands that she is transfusion dependent, that she would likely need a repeat bone marrow biopsy for further hematology work-up and even at that she may not be a good candidate for transplant/treatment but she would like to pursue aggressive care at this time and follow-up on any options available to her. She does express understanding that many of these, especially CPR, would have a substantial compromise to her quality of life and surgical interventions could be futile to her given her level of medical fragility. She is able to verbalize this risk, but expresses she would want to pursue these at this time if there is a chance in extending the length of her life. Discussed with her family by phone, who expressed that while they feel that she may benefit from a palliative approach. I again discussed her care with her son on the phone on 12/19 and advised him of how ill she was. Multiple family members and all her grandchildren came to see her on 12/19 Continued stay , no end in sight for discharge, prognosis remains quite guarded Admission and Anticipated Discharge Date Admission Date: November 26, 2021 Subjective Pt developed bullae on her right thigh today that are quite large. SHe appears red all over, not itchy. Is tired, has pain "all over" and just took an oxyco done. No further fevers. Has somewhat of a cough. Tele with ST, PVCs, rates 100s Review of Systems Review of Systems: All systems reviewed & are unremarkable except as noted in HPI & below Physical Exam Constitutional: + ill appearing and + thin; no acute distress Eyes: + anicteric sclerae Neck: trachea midline, no thyromegaly Respiratory: normal respiratory effort; no cough Auscultation: + diminished lung sounds (throughout) and + crackles (In the right middle and upper lung romero as well as left lower lung field); no rhonchi and no wheezes Cardiovascular: RRR, no murmur, no edema Chest (Breasts): Chest: normal inspection of chest Gastrointestinal (Abdomen): normal bowel sounds, soft, nontender, no hepato splenomegaly Musculoskeletal: Extremities: extremities normal to inspection; no cyanosis and no clubbing Skin: + rash (trunk,arms, thighs w/ confluent erythema,2 large 6cm bullae rt lat thigh ) Neurologic: moves all extremities and awake; no focal motor deficits Psychiatric: A+Ox3, euthymic affect (But slightly more lethargic than usual) Orientation: cooperative Lymphatic: no lymphedema Results & Data Results & Data ([facility]) Vital Signs (Past 12 Hours) Vital Signs Temp Pulse Pulse Resp BP Pulse Ox 12/20/21 14:51 36.3 C L 19 151/84 H 95 12/20/21 14:17 100 H 12/20/21 11:20 36.2 C L 105 H 20 148/66 H 93 12/20/21 07:22 36.3 C L 106 H 19 117/54 L 90 12/20/21 07:00 105 H Laboratory Results 12/20/21 07:43 12/20/21 07:43 PG Care Time/CCT Total # of Minutes Spent Total Time Spent with Patient: Total time spent is greater than 50% in coordination of care (as documented) at patient's floor/unit and/or counseling patient: Coding Level of Care Code 29885 Subseq Hosp Care Lvl 3 Diagnoses Fever R50.9 UTI (urinary tract infection) N39.0 Sepsis A41.9 Pancytopenia D61.818 Acute respiratory failure with hypoxia J96.01 Chronic kidney disease N18.9 MDS (myelodysplastic syndrome) D46.9 Migraine G43.909 Celiac disease K90.0 Prothrombin [id number] mutation D68.52 Urge and stress incontinence N39.46 UGIB (upper gastrointestinal bleed) K92.2 COPD (chronic obstructive pulmonary disease) J44.9 Coagulopathy D68.9 AURORA (acute kidney injury) N17.9 Hx of Clostridium difficile infection Z86.19 Cirrhosis of liver K74.60 SACHA (obstructive sleep apnea) G47.33 COVID-19 U07.1
[2021-12-20] MEDS ORDERED: SODIUM CHLORIDE 0.9% 250 ML IV PRN (18:39)
[2021-12-20] MEDS: AZTREONAM 2,000 MG in DEXTROSE 5% 100 ML IV SCH (19:21)
[2021-12-20 19:41] LABS: Hematocrit (blood only) 25.8 % (37-47); Hemoglobin 8.4 g/dL (12.0-16.0); Mean Corpuscular Hemoglobin 27.7 pg (25-34); Mean Corpuscular Hgb Conc 32.6 g/dL (32-36); Mean Corpuscular Volume 85.1 fL (80-100); Nucleated RBC # (auto) 0.02 K/uL (0-0); Nucleated RBC % (auto) 2.4 %; Platelet Count 5 K/uL (130-400); RDW Coefficient of Variation 15.9 % (11.5-14.5); RDW Standard Deviation 49.1 fL (36.4-46.3); Red Blood Count 3.03 M/uL (4.2-5.4); White Blood Count 0.72 K/uL (4.8-10.8)
[2021-12-20] MEDS: SERTRALINE HCL 50 MG TABLET PO SCH (21:07)
[2021-12-20] MEDS: MIRABEGRON ER 25 MG TAB PO SCH (21:10)
[2021-12-20] MEDS: QUEtiapine FUMARATE 25 MG TABLET PO SCH (21:11)
[2021-12-20] MEDS: clonazePAM 0.5 MG TAB PO SCH (21:11)
[2021-12-20] MEDS: diphenhydrAMINE Capsule 25 MG CAP PO PRN (21:23)
[2021-12-20] MEDS: ACETAMINOPHEN 500 MG TAB PO PRN (21:23)
[2021-12-21 00:48] LABS: Hematocrit (blood only) 23.3 % (37-47); Hemoglobin 7.7 g/dL (12.0-16.0)
[2021-12-21] MEDS ORDERED: SODIUM CHLORIDE 0.9% 250 ML IV PRN ×2 (01:55→08:33)
[2021-12-21] MEDS: AZTREONAM 2,000 MG in DEXTROSE 5% 100 ML IV SCH ×3 (02:21→20:42)
[2021-12-21 02:59] LABS: BUN Creatinine Ratio 21.1 (10-20); Calcium 8.2 mg/dl (8.5-10.1); Creatinine Clr Calc Pharmacy 42.1 ml/min; Est GFR (African American) 61.3 ml/min; Est GFR (Non-African American) 52.9 ml/min; Magnesium 1.7 mg/dl (1.7-2.4); Phosphorus 4.5 mg/dl (2.5-4.9); Potassium 3.4 mmol/L (3.5-5.1)
[2021-12-21 03:24] LABS: Hematocrit (blood only) 22.3 % (37-47); Hemoglobin 7.4 g/dL (12.0-16.0); Mean Corpuscular Hemoglobin 28.1 pg (25-34); Mean Corpuscular Hgb Conc 33.2 g/dL (32-36); Mean Corpuscular Volume 84.8 fL (80-100); Platelet Count 4 K/uL (130-400); RDW Standard Deviation 49.6 fL (36.4-46.3); Red Blood Count 2.63 M/uL (4.2-5.4); White Blood Count 0.67 K/uL (4.8-10.8)
[2021-12-21 03:32] LABS: ALC (manual) 0.22 K/uL (1.2-3.4); ANC (manual) 0.31 K/uL (1.4-6.5); Basophils # (manual) 0.01 K/uL (0-0.2); Basophils % (manual) 1.7 %; Blast # (manual) 0.01 K/uL (0-0); Blast Cells % (manual) 1.7 %; Eosinophils # (manual) 0.01 K/uL (0-0.5); Eosinophils % (manual) 1.7 %; Giant Platelets 3+; Lymphocytes # (manual) 0.22 K/uL (1.2-3.4); Lymphocytes % (manual) 32.8 %; Monocytes # (manual) 0.07 K/uL (0.11-0.59); Monocytes % (manual) 10.3 %; Myelocytes # (manual) 0.03 K/uL (0-0); Myelocytes % (manual) 5.2 %; Neutrophils # (manual) 0.31 K/uL (1.4-6.5); Neutrophils % (manual) 46.6 %; Ovalocytes 1+; Platelet Estimate SIGNIFIC DECREASED (Normal); Schistocytes Occasional
[2021-12-21] MEDS: MEROPENEM 500 MG in SYRINGE 0 ML IV SCH ×3 (06:05→23:34)
[2021-12-21] MEDS: oxyCODONE HCL IR 5 MG TAB (IMMEDIATE RELEASE) PO PRN ×3 (06:05→21:28)
[2021-12-21] MEDS ORDERED: POTASSIUM CHLORIDE CRTAB 20 MEQ TABCR PO STA (08:34)
[2021-12-21] MEDS: ACYCLOVIR 400 MG TAB PO SCH ×2 (09:50→22:33)
[2021-12-21] MEDS: CETIRIZINE HCL 10 MG TABLET PO SCH (09:50)
[2021-12-21] MEDS: FERROUS SULFATE 325 MG TAB PO SCH (09:51)
[2021-12-21] MEDS: FLUTICASONE/VILANTEROL 100/25MCG 14 PUFFS/INHALER INH SCH (09:51)
[2021-12-21] MEDS: FOLIC ACID 1 MG TAB PO SCH (09:52)
[2021-12-21] MEDS: GABAPENTIN 400 MG CAP PO SCH (09:53)
[2021-12-21] MEDS: MAGNESIUM SULFATE / D5W 1 GM/100 ML BAG IV SCH ×2 (09:53→11:53)
[2021-12-21] MEDS: MAGNESIUM OXIDE 400 MG TAB PO SCH (09:53)
[2021-12-21] MEDS: ADVANCED PROBIOTIC 1250 MG CAPSULE PO SCH (09:53)
[2021-12-21] MEDS: PANTOprazole 40 MG TAB PO SCH ×2 (09:54→22:36)
[2021-12-21] MEDS: METOPROLOL SUCC 25MG EXT REL TAB PO SCH (09:54)
[2021-12-21] MEDS: RASPBERRY SYRUP 5 ML UDP PO SCH (09:54)
[2021-12-21] MEDS: OXYBUTYNIN CHLORIDE XL 5 MG TABCR PO SCH (09:54)
[2021-12-21] MEDS: VANCOMYCIN HCL 125 MG/2.5ML SOLN PO SCH (09:55)
[2021-12-21] MEDS: TOPIRAMATE 100 MG TAB PO SCH ×2 (09:55→22:37)
--- NOTE | 2021-12-21 14:11 | Hospitalist Progress Note ---
Date of Service December 21, 2021 Assessment & Plan (1) Fever: Plan: Spiked a fever again on the morning of 12/18, with new onset acute respiratory failure with hypoxia requiring 4 LNC and noted to have crackles on pulmonary examination Checked chest x-ray-shows multifocal pneumonia most pronounced in the right upper lobe Spiked another fever overnight on 12/18-12/19 and became mildly hypotensive, tachycardic in the 130s Responded to 2 L bolus of LR UA repeat on 12/19 without evidence of infection Suspect the fevers and sepsis at this time are from her pneumonia Fever now resolved Added on cefepime on 12/18 to cover for Pseudomonas pneumonia as she was already on meropenem in case of resistance. HOWEVER first noticed red color to skin while had fever 12/19, then developed worsening erythema and large bullae right lateral thigh on 12/20--> likely allergic reaction to Cefepime which was then discontinued -Aztreonam started on 12/20 to cover for resistant gram-negative pneumonia Appreciate ID consultation-recommends discontinuing aztreonam as would expect meropenem to cover for Pseudomonas; also recommends checking respiratory virus panel and Legionella antigen, possible chest CT and pulmonary consult -Check Legionella antigen -Check respiratory virus panel -We will continue aztreonam for now as she improved on cefepime and continues to improve on aztreonam -Continue Tylenol as needed for fever -Blood cultures drawn-no growth to date -Okay to DC meropenem and caspofungin which were for previous complicated UTI (2) UTI (urinary tract infection): Plan: History of Hydronephrosis with Ureteral Stent Placement. - history of ureteral stents placed in 07/2021 and subsequent exchange every 3 months, with some delays due to acute medical issues - chronic obstruction hydronephrosis with candidal UTI and known colonization of her ureteral stents - Unfortunately, had associated UTIs since that time-this admission with ESBL Klebsiella -Urology consulted about stent exchange - Spoke with urology on 12/05. Recommend that she be evaluated by tertiary care center for stent removal and nephrostomy tubes. This was discussed with tertiary care who did not accept patient for nephrostomy tube placement, stent exchange was revisited with urology and delayed multiple days secondary to acute anemia and hypotension/sepsis Completed course of meropenem on 12/06. Became febrile again 12/07, meropenem was restarted 12/08 for 10 day course Multiple discussions week of 12/15 with [facility] who did not accept patient for transfer for nephrostomy tube placement. Also discussed with [facility] hematology who recommended outpatient follow-up as below. Caspofungin dose adjusted perioperatively with history of Rachelle glabrata, anticipate conversion back to fluconazole for daily prophylaxis after course of caspofungin complete -Finally went for ureteral stent exchange on 12/19 despite ongoing fevers-needed to do it while on caspofungin to have best chance of not inducing candidemia repeat UA 12/19 neg for infection -On 12/19, again asked patient if she would be willing to transfer for nephrostomy tube placement to a larger hospital that is used to having cancer patients with thrombocytopenia and an experienced IR department i.e. somewhere in [place] or [place] or [place]. She still is unsure if she would do that at this time -Okay to discontinue meropenem and caspofungin now on 12/21 (3) Sepsis: Plan: Sepsis- with recurrent UTI early in the course of admission, then another round of sepsis for recurrent UTI, and now with pneumonia on 12/18 She is chronically neutropenic and immunosuppressed Did require ICU stay twice during this admission for Levophed ESBL with Klebsiella pneumonia, patient did finish a course of meropenem on 12/06 but became febrile 24 hours on antibiotics and was recultured positive for ESBL E. coli sensitive to meropenem. 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, temporarily converted to caspofungin pending stent exchange-now complete -Then added on cefepime to cover in case of resistant Pseudomonas with pneumonia on 12/18 -allergic reaction to Cefepime 12/19 with rash and bullae developing 12/20--> stop Cefepime, start Aztrenam MRSA swab is negative-no need for MRSA coverage Appreciate ID consultation Checking Legionella, respiratory virus panel, sputum culture (4) Pancytopenia: Plan: Pancytopenia/secondary MDS - Patient with known 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 -S/p Neupogen 480 mcg SQ daily x 3 days-final dose on 11/29 -S/p Procrit 40,000 units x 1 on 11/29 - Received platelets on 11/27, 12/01, 12/02, 12/04, 12/06, 12/15, 12/18 12/19, 12/20 - Received 2 units of PRBCs on 11/27 & 2 units on 12/06; 1 unit on 12/09, and 2 units on 12/16, awaiting 2 units PRBCs on 12/21 Transfusion threshold 7 mg/DL,-no transfusion unless bleeding Patient difficult blood bank transfusion, requires [place] blood bank supply Discussed with PSSean hagan, patient was recommended for outpatient follow-up with repeat bone marrow biopsy, was not accepted/recommended for transfer. Discussion with [facility]. While patient could have bone marrow biopsy repeated here, first attempt was suboptimal and suggested that this be done by tertiary care where she would follow-up. May consider pending clinical course (5) Acute respiratory failure with hypoxia: Plan: Acute Hypoxic Respiratory Failure. 11/23 sepsis with concern for recent Covid upon admission Then was on room air for several weeks, now back on 4 L nasal cannula as of 12/18 with sepsis and pneumonia Wean off as tolerated Treating pneumonia as above (6) Chronic kidney disease: Plan: CKD stage II-III (7) MDS (myelodysplastic syndrome): Plan: - As above. -Patient currently is transfusion dependent. - The patient has discussed her prognosis with multiple providers but does not want to pursue hospice care at this time. See goals discussion above - At this time we are only providing temporizing conditions with transfusions & IV abx. If her hemoglobin remained stable, she should follow up with [facility] as outpatient and will require a repeat marrow biopsy either before or at that appointment. Platelets down to 4 despite receiving platelets last night for hematuria Possibly worsened by current sepsis Transfuse platelets on 12/21 Hemoglobin also down to 7.4 after having episode of hematuria on 12/20 Awaiting 2 units of PRBCs to come from central blood bank hopefully on 12/21 Requires Tylenol Benadryl prior to any transfusions (8) UGIB (upper gastrointestinal bleed): Plan: Suspected UGIB upon initial arrival - History primarily concerning for hematemesis/UGIB based on recent odynophagia, "spitting up blood" (non-projectile), nausea, decreased appetite. ?hemoptysis or epistaxis - Known history of HCV-induced cirrhosis. Last EGD seems to be 10/2019, per Dr. Chavez's [facility] note, which did NOT reveal any esophageal varices; did show Z-line irregularities and esophageal plaques c/w candidiasis - No need for octreotide with no h/o known varices - Initially in setting of significant coagulopathy (INR 2.5, PTT 77.2, Plt 11) -- notably progressed since prior admission, coagulopathy improved after FFP and Vit K. - GI consulted: Defer EGD unless emergent/emergent specialist patient has not had any signs/symptoms of upper GI bleed or melena/blood per rectum. consider outpatient EGD. patient with high periprocedural risk, continue PPI converted to twice daily. Hemoccult negative. - Initially on PPI gtt now been converted to PPI po bid (9) COPD (chronic obstructive pulmonary disease): Plan: With a history of smoking and lung cancer. - Nebs as needed (10) Coagulopathy: Plan: Coagulopathy / Thrombocytopenia - Admission labs concerning for INR 2.5 / PTT 77.2 / PLT 11 in setting of H&H 7.9 on arrival - notably worse from previous. ALso D-dimer 5000 - Suspected secondary to DIC from sepsis, in setting of MDS, liver disease with HCV history, poor nutrition (Vit K deficiency possibility) - S/p 2 units FFP and Vit K and coags normalized 12/04 - Received platelets on 11/27, 12/01, 12/02, 12/03, 12/15, 12/16,12/18 -? Liver synthetic dysfunction versus nutritional deficiency with history of reported cirrhosis, treated hep C. Recent liver imaging with heterogenous texture but not cirrhotic in appearance. INR remains 1.4 with decreased hemoglobin, fibrinogen has not decreased, received vitamin K supplementation Hemoglobin improved as above (11) AURORA (acute kidney injury): Plan: Acute Kidney Injury - Has history of CKD with creatinine baseline around 0.7 - 0.9. Cr at baseline as of 12/04. With recurrent acute kidney injury on 12/20 Creatinine now improved after IV fluids and improved blood pressure with sepsis (12) Drug reaction: Plan: Secondary to cefepime With erythematous rash all over her trunk, arms, legs with large bullae all over thighs and buttocks Have since discontinued cefepime Continue Benadryl as needed Wound care for ruptured bullae No oral lesions (13) COVID-19: Plan: COVID-19 - Patient recently tested positive again for COVID-19, first time at the end of October. - During last hospitalization, was not hypoxic and therefore was not started on dexamethasone / remdesivir. - No steroids needed as her hypoxia is not from COVID. - As per infection control on 12/02, she can come off isolation precautions (14) Hx of Clostridium difficile infection: Plan: History of C. difficile Infection, loose BM earlier in admission since improved - On chronic vancomycin suppressive therapy twice weekly - Increased vancomycin 125 Mg p.o. 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 (18) Migraine: Plan: - Continue Topamax, Fioricet as needed (19) Celiac disease: Plan: Continue gluten-free diet (20) Urge and stress incontinence: Plan: - Continue oxybutynin Plan: Disposition: Multiple goals of care discussions have been had throughout this hospitalization with multiple providers She reports an understanding of her medical condition, and that she would like to pursue treatments including ICU, pressors, CPR, and intubation if needed at this time. She understands that she is transfusion dependent, that she would likely need a repeat bone marrow biopsy for further hematology work-up and even at that she may not be a good candidate for transplant/treatment but she would like to pursue aggressive care at this time and follow-up on any options available to her. She does express understanding that many of these, especially CPR, would have a substantial compromise to her quality of life and surgical interventions could be futile to her given her level of medical fragility. She is able to verbalize this risk, but expresses she would want to pursue these at this time if there is a chance in extending the length of her life. Discussed with her family by phone, who expressed that while they feel that she may benefit from a palliative approach. I again discussed her care with her son on the phone on 12/19 and advised him of how ill she was. Multiple family members and all her grandchildren came to see her on 12/19 I left a message for her son with an update on her condition on 12/21 Continued stay , no end in sight for discharge, prognosis remains quite guarded Admission and Anticipated Discharge Date Admission Date: November 26, 2021 Subjective Pt c/o pain all over her body. Developed more bullae on her buttocks today as per nursing. She is having some sputum production with her cough. No further hematuria today and no hematochezia or melena. No itching with the rash. She says that the oxycodone 5 mg is not helping her pain and asked for an increase in the dose. She reaffirms that she still wants to be aggressive with all her care. Telemetry with normal sinus rhythm 90s to 100s Review of Systems Review of Systems: All systems reviewed & are unremarkable except as noted in HPI & below Physical Exam Constitutional: + ill appearing and + thin; no acute distress Eyes: + anicteric sclerae Neck: trachea midline, no thyromegaly Respiratory: normal respiratory effort; no cough Auscultation: + diminished lung sounds (throughout) and + crackles (In the right middle and upper lung romero as well as left lower lung field); no rhonchi and no wheezes Cardiovascular: RRR, no murmur, no edema Chest (Breasts): Chest: normal inspection of chest Gastrointestinal (Abdomen): normal bowel sounds, soft, nontender, no hepatosplenomegaly Musculoskeletal: Extremities: extremities normal to inspection; no cyanosis and no clubbing Skin: + rash (trunk,arms, thighs w/erythema,multple large 6cm bullae thighs/butt) Neurologic: moves all extremities and awake; no focal motor deficits Psychiatric: A+Ox3, euthymic affect Orientation: cooperative Lymphatic: no lymphedema Results & Data Results & Data ([facility]) Vital Signs (Past 12 Hours) Vital Signs Temp Pulse Pulse Resp BP Pulse Ox 12/21/21 12:00 92 12/21/21 11:13 36.4 C L 107 H 20 134/64 88 L 12/21/21 08:22 87 12/21/21 07:27 36.4 C L 97 H 20 113/53 L 90 12/21/21 03:50 93 H 22 91 12/21/21 02:46 36.6 C 98 H 20 103/50 L 90 Laboratory Results 12/21/21 02:32 12/21/21 02:32 PG Care Time/CCT Total # of Minutes Spent Total Time Spent with Patient: Total time spent is greater than 50% in coordination of care (as documented) at patient's floor/unit and/or counseling patient: Coding Level of Care Code 54231 Subseq Hosp Care Lvl 3 Diagnoses Fever R50.9 UTI (urinary tract infection) N39.0 Sepsis A41.9 Pancytopenia D61.818 Acute respiratory failure with hypoxia J96.01 Chronic kidney disease N18.9 MDS (myelodysplastic syndrome) D46.9 Migraine G43.909 Celiac disease K90.0 Prothrombin [id number] mutation D68.52 Urge and stress incontinence N39.46 UGIB (upper gastrointestinal bleed) K92.2 COPD (chronic obstructive pulmonary disease) J44.9 Coagulopathy D68.9 AURORA (acute kidney injury) N17.9 Hx of Clostridium difficile infection Z86.19 Cirrhosis of liver K74.60 SACHA (obstructive sleep apnea) G47.33 COVID-19 U07.1 Drug reaction T50.905A
[2021-12-21] MEDS: CASPOFUNGIN 35 MG in SODIUM CHLORIDE 0.9% 250 ML IV SCH (17:58)
[2021-12-21] MEDS: ACETAMINOPHEN 500 MG TAB PO PRN (21:27)
[2021-12-21] MEDS: diphenhydrAMINE Capsule 25 MG CAP PO PRN (21:27)
[2021-12-21] MEDS: clonazePAM 0.5 MG TAB PO SCH (22:32)
[2021-12-21] MEDS: MIRABEGRON ER 25 MG TAB PO SCH (22:33)
[2021-12-21] MEDS: QUEtiapine FUMARATE 25 MG TABLET PO SCH (22:34)
[2021-12-21] MEDS: METHOCARBAMOL 750 MG TABLET PO PRN (22:38)
[2021-12-21] MEDS: SERTRALINE HCL 50 MG TABLET PO SCH (22:41)
[2021-12-22] MEDS: AZTREONAM 2,000 MG in DEXTROSE 5% 100 ML IV SCH ×3 (04:07→19:49)
[2021-12-22 07:06] LABS: BUN Creatinine Ratio 23.1 (10-20); Bilirubin,Total 0.6 mg/dl (0.2-1.0); Calcium 7.4 mg/dl (8.5-10.1); Creatinine Clr Calc Pharmacy 45.7 ml/min; Est GFR (African American) 64.8 ml/min; Est GFR (Non-African American) 55.9 ml/min; Magnesium 1.7 mg/dl (1.7-2.4); Potassium 3.9 mmol/L (3.5-5.1)
[2021-12-22 07:15] LABS: Hematocrit (blood only) 25.4 % (37-47); Hemoglobin 8.4 g/dL (12.0-16.0); Mean Corpuscular Hemoglobin 27.9 pg (25-34); Mean Corpuscular Hgb Conc 33.1 g/dL (32-36); Mean Corpuscular Volume 84.4 fL (80-100); Platelet Count 5 K/uL (130-400); RDW Standard Deviation 49.6 fL (36.4-46.3); Red Blood Count 3.01 M/uL (4.2-5.4); White Blood Count 0.86 K/uL (4.8-10.8)
[2021-12-22 07:16] LABS: Ovalocytes 1+; Platelet Estimate SIGNIFIC DECREASED (Normal); Toxic Granulation 1+
[2021-12-22 07:40] LABS: ALC (manual) 0.38 K/uL (1.2-3.4); ANC (manual) 0.34 K/uL (1.4-6.5); Basophils # (manual) 0.02 K/uL (0-0.2); Basophils % (manual) 2.3 %; Blast # (manual) 0.05 K/uL (0-0); Blast Cells % (manual) 5.7 %; Eosinophils # (manual) 0.01 K/uL (0-0.5); Eosinophils % (manual) 1.1 %; Lymphocytes # (manual) 0.38 K/uL (1.2-3.4); Lymphocytes % (manual) 44.3 %; Metamyelocytes # (manual) 0.01 K/uL (0-0); Metamyelocytes % (manual) 1.1 %; Monocytes # (manual) 0.05 K/uL (0.11-0.59); Monocytes % (manual) 5.7 %; Neutrophils # (manual) 0.34 K/uL (1.4-6.5); Neutrophils % (manual) 39.8 %
[2021-12-22] MEDS ORDERED: FUROSEMIDE INJ 20 MG/2 ML VIAL IV ONE ×2 (08:39→10:15)
[2021-12-22] MEDS: FOLIC ACID 1 MG TAB PO SCH (08:56)
[2021-12-22] MEDS: METOPROLOL SUCC 25MG EXT REL TAB PO SCH (08:56)
[2021-12-22] MEDS: GABAPENTIN 400 MG CAP PO SCH (08:56)
[2021-12-22] MEDS: ACYCLOVIR 400 MG TAB PO SCH ×2 (08:56→23:12)
[2021-12-22] MEDS: FERROUS SULFATE 325 MG TAB PO SCH (08:56)
[2021-12-22] MEDS: ADVANCED PROBIOTIC 1250 MG CAPSULE PO SCH (08:56)
[2021-12-22] MEDS: CETIRIZINE HCL 10 MG TABLET PO SCH (08:56)
[2021-12-22] MEDS: MAGNESIUM OXIDE 400 MG TAB PO SCH (08:56)
[2021-12-22] MEDS: FLUTICASONE/VILANTEROL 100/25MCG 14 PUFFS/INHALER INH SCH (08:57)
[2021-12-22] MEDS: OXYBUTYNIN CHLORIDE XL 5 MG TABCR PO SCH (08:57)
[2021-12-22] MEDS: PANTOprazole 40 MG TAB PO SCH ×2 (08:57→23:14)
[2021-12-22] MEDS: TOPIRAMATE 100 MG TAB PO SCH ×2 (08:58→23:11)
[2021-12-22] MEDS: oxyCODONE HCL IR 5 MG TAB (IMMEDIATE RELEASE) PO PRN ×2 (08:58→14:56)
--- NOTE | 2021-12-22 09:15 | XRay Report ---
XR chest 1V portable HISTORY: Hypoxia, cxr COMPARISON: Chest 12/18/2021. FINDINGS: Multifocal bilateral airspace opacities are again noted. This is most pronounced within the right upper lobe which demonstrates consolidation. Possible 2.3 cm cavitary focus within the consoli dation. Small bilateral pleural effusions. Diffuse interstitial thickening has slightly progressed an d favors mild congestive change. The heart is mildly enlarged. No pneumothorax. Calcified granulomas again noted within the right upper lobe. IMPRESSION: 1. Multifocal bilateral airspace opacities consistent with a pneumonia. The right upper lobe consolid ation has slightly progressed. Possible 2.3 cm cavitary focus within the right upper lobe. 2. Interval progression of the mild interstitial pulmonary edema and small bilateral pleural effusion s. ACT 112: Negative or not required by law. Electronically signed by: Jimi Bangura M.D. 12/22/2021 9:13 AM
[2021-12-22] MEDS: FLUCONAZOLE 100 MG TAB PO SCH (09:42)
[2021-12-22] MEDS ORDERED: FUROSEMIDE INJ 20 MG/2 ML VIAL IV PRN (10:01)
[2021-12-22] MEDS: VANCOMYCIN HCL 125 MG/2.5ML SOLN PO SCH (10:43)
[2021-12-22] MEDS: RASPBERRY SYRUP 5 ML UDP PO SCH (10:43)
--- NOTE | 2021-12-22 13:09 | Hospitalist Progress Note ---
Date of Service December 22, 2021 Assessment & Plan (1) Fever: Plan: Spiked a fever again on the morning of 12/18, with new onset acute respiratory failure with hypoxia requiring 4 LNC and noted to have crackles on pulmonary examination Checked chest x-ray-shows multifocal pneumonia most pronounced in the right upper lobe Spiked another fever overnight on 12/18-12/19 and became mildly hypotensive, tachycardic in the 130s Responded to 2 L bolus of LR UA repeat on 12/19 without evidence of infection Suspect the fevers and sepsis at this time are from her pneumonia Fever now resolved Added on cefepime on 12/18 to cover for Pseudomonas pneumonia as she was already on meropenem in case of resistance. HOWEVER first noticed red color to skin while had fever 12/19, then developed worsening erythema and large bullae right lateral thigh on 12/20--> likely allergic reaction to Cefepime which was then discontinued -Aztreonam started on 12/20 to cover for resistant gram-negative pneumonia Appreciate ID consultation-recommends discontinuing aztreonam as would expect meropenem to cover for Pseudomonas; also recommends checking respiratory virus panel and Legionella antigen, possible chest CT and pulmonary consult -Legionella antigen pending -RVP pending -We will continue aztreonam for now as she improved on cefepime and continues to improve on aztreonam, will continue for at least 5-day course -Continue Tylenol as needed for fever -Blood cultures drawn-no growth to date -Prior meropenem for UTI completed and discontinued as noted below Chronic suppressive Diflucan resumed (2) UTI (urinary tract infection): Plan: History of Hydronephrosis with Ureteral Stent Placement. - history of ureteral stents placed in 07/2021 and subsequent exchange every 3 months, with some delays due to acute medical issues - chronic obstruction hydronephrosis with candidal UTI and known colonization of her ureteral stents - Unfortunately, had associated UTIs since that time-this admission with ESBL Klebsiella -Urology consulted about stent exchange - Spoke with urology on 12/05. Recommend that she be evaluated by tertiary care center for stent removal and nephrostomy tubes. This was discussed with tertiary care who did not accept patient for nephrostomy tube placement, stent exchange was revisited with urology and delayed multiple days secondary to acute anemia and hypotension/sepsis Completed course of meropenem on 12/06. Became febrile again 12/07, meropenem was restarted 12/08 for 10 day course Multiple discussions week of 12/15 with [facility] who did not accept patient for transfer for nephrostomy tube placement. Also discussed with [facility] hematology who recommended outpatient follow-up as below. Caspofungin dose adjusted perioperatively with history of Rachelle glabrata, anticipate conversion back to fluconazole for daily prophylaxis after course of caspofungin complete -Finally went for ureteral stent exchange on 12/19 despite ongoing fevers-needed to do it while on caspofungin to have best chance of not inducing candidemia repeat UA 12/19 neg for infection -On 12/19, again asked patient if she would be willing to transfer for nephrostomy tube placement to a larger hospital that is used to having cancer patients with thrombocytopenia and an experienced IR department i.e. somewhere in [place] or [place] or [place]. She still is unsure if she would do that at this time -Meropenem/caspofungin discontinued 12/21 (3) Sepsis: Plan: Sepsis- with recurrent UTI early in the course of admission, then another round of sepsis for recurrent UTI, and now with pneumonia on 12/18 She is chronically neutropenic and immunosuppressed Did require ICU stay twice during this admission for Levophed ESBL with Klebsiella pneumonia, patient did finish a course of meropenem on 12/06 but became febrile 24 hours on antibiotics and was recultured positive for ESBL E. coli sensitive to meropenem. 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, temporarily converted to caspofungin pending stent exchange-now complete -Then added on cefepime to cover in case of resistant Pseudomonas with pneumonia on 12/18 -allergic reaction to Cefepime 12/19 with rash and bullae developing 12/20--> stop Cefepime, start Aztrenam MRSA swab is negative-no need for MRSA coverage Appreciate ID consultation Checking Legionella, respiratory virus panel, sputum culture pending as above (4) Pancytopenia: Plan: Pancytopenia/secondary MDS - Patient with known 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 -S/p Neupogen 480 mcg SQ daily x 3 days-final dose on 11/29 -S/p Procrit 40,000 units x 1 on 11/29 - Received platelets on 11/27, 12/01, 12/02, 12/04, 12/06, 12/15, 12/18 12/19, 12/20, 3 3 - Received 2 units of PRBCs on 11/27 & 2 units on 12/06; 1 unit on 12/09, and 2 units on 12/16, awaiting 2 units PRBCs on 12/21 Transfusion threshold 7 mg/DL,-no transfusion unless bleeding Patient difficult blood bank transfusion, requires [facility] blood bank supply Discussed with [facility], patient was recommended for outpatient follow-up with repeat bone marrow biopsy, was not accepted/recommended for transfer. Discussion with [facility]. While patient could have bone marrow biopsy repeated here, first attempt was suboptimal and suggested that this be done by tertiary care where she would follow-up. May consider pending clinical course Revisited with hematology 01/18, considering repeat bone marrow biopsy although patient with comorbid infection, pancytopenia, and severe sensitization with grim prognosis (5) Acute respiratory failure with hypoxia: Plan: Acute Hypoxic Respiratory Failure. 11/23 sepsis with concern for recent Covid upon admission Then was on room air for several weeks, now with increased oxygen requirements in the setting of pneumonia with? Underlying fluid overload from transfusions Wean off as tolerated Treating pneumonia as above Lasix x1 today with some clinical improvement, blood pressure tolerating (6) Chronic kidney disease: Plan: CKD stage II-III (7) MDS (myelodysplastic syndrome): Plan: - As above. -Patient currently is transfusion dependent. - The patient has discussed her prognosis with multiple providers but does not want to pursue hospice care at this time. See goals discussion above - At this time we are only providing temporizing conditions with transfusions & IV abx. If her hemoglobin remained stable, she should follow up with [facility] as outpatient and will require a repeat marrow biopsy either before or at that appointment. Platelets down to 4 despite receiving platelets last night for hematuria Possibly worsened by current sepsis Transfuse platelets on 12/21 Hemoglobin also down to 7.4 after having episode of hematuria on 12/20 Awaiting 2 units of PRBCs to come from central blood bank hopefully on 12/21 Requires Tylenol Benadryl prior to any transfusions (8) UGIB (upper gastrointestinal bleed): Plan: Suspected UGIB upon initial arrival - History primarily concerning for hematemesis/UGIB based on recent odynophagia, "spitting up blood" (non-projectile), nausea, decreased appetite. ?hemoptysis or epistaxis - Known history of HCV-induced cirrhosis. Last EGD seems to be 10/2019, per Dr. Chavez's [facility] note, which did NOT reveal any esophageal varices; did show Z-line irregularities and esophageal plaques c/w candidiasis - No need for octreotide with no h/o known varices - Initially in setting of significant coagulopathy (INR 2.5, PTT 77.2, Plt 11) -- notably progressed since prior admission, coagulopathy improved after FFP and Vit K. - GI consulted: Defer EGD unless emergent/emergent specialist patient has not had any signs/symptoms of upper GI bleed or melena/blood per rectum. consider outpatient EGD. patient with high periprocedural risk, continue PPI converted to twice daily. Hemoccult negative. - Initially on PPI gtt now been converted to PPI po bid (9) COPD (chronic obstructive pulmonary disease): Plan: With a history of smoking and lung cancer. - Nebs as needed (10) Coagulopathy: Plan: Coagulopathy / Thrombocytopenia - Admission labs concerning for INR 2.5 / PTT 77.2 / PLT 11 in setting of H&H 7.9 on arrival - notably worse from previous. ALso D-dimer 5000 - Suspected secondary to DIC from sepsis, in setting of MDS, liver disease with HCV history, poor nutrition (Vit K deficiency possibility) - S/p 2 units FFP and Vit K and coags normalized 12/04 - Received platelets on 11/27, 12/01, 12/02, 12/03, 12/15, 12/16,12/18 -? Liver synthetic dysfunction versus nutritional deficiency with history of reported cirrhosis, treated hep C. Recent liver imaging with heterogenous texture but not cirrhotic in appearance. Was repleted with vitamin K, continue management as above (11) AURORA (acute kidney injury): Plan: Acute Kidney Injury - Has history of CKD with creatinine baseline around 0.7 - 0.9. Cr at baseline as of 12/04. With recurrent acute kidney injury on 12/20 Creatinine now improved after IV fluids and improved blood pressure with sepsis (12) Drug reaction: Plan: Secondary to cefepime With erythematous rash all over her trunk, arms, legs with large bullae all over thighs and buttocks Have since discontinued cefepime Continue Benadryl as needed Wound care for ruptured bullae No oral lesions (13) COVID-19: Plan: COVID-19 - Patient recently tested positive again for COVID-19, first time at the end of October. - During last hospitalization, was not hypoxic and therefore was not started on dexamethasone / remdesivir. - No steroids needed as her hypoxia is not from COVID. - As per infection control on 12/02, off isolation precautions (14) Hx of Clostridium difficile infection: Plan: History of C. difficile Infection, loose BM earlier in admission since improved - On chronic vancomycin suppressive therapy twice weekly - Increased vancomycin 125 Mg p.o. 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 (18) Migraine: Plan: - Continue Topamax, Fioricet as needed (19) Celiac disease: Plan: Continue gluten-free diet (20) Urge and stress incontinence: Plan: - Continue oxybutynin Plan: Disposition: Multiple goals of care discussions have been had throughout this hospitalization with multiple providers She reports an understanding of her medical condition, and that she would like to pursue treatments including ICU, pressors, CPR, and intubation if needed at this time. She understands that she is transfusion dependent, that she would likely need a repeat bone marrow biopsy for further hematology work-up and even at that she may not be a good candidate for transplant/treatment but she would like to pursue aggressive care at this time and follow-up on any options available to her. She does express understanding that many of these, especially CPR, would have a substantial compromise to her quality of life and surgical interventions could be futile to her given her level of medical fragility. She is able to verbalize this risk, but expresses she would want to pursue these at this time if there is a chance in extending the length of her life. Discussed with her family by phone, who expressed that while they feel that she may benefit from a palliative approach. 3/3 Discussed her care with hematology/oncology. Patient is critically ill with likely secondary MDS, could have repeat bone marrow biopsy to confirm this but treatment options are limited and is unlikely to survive allograft. She remains sensitized with pressures to sites in her smear, continues to have severe thrombocytopenia and progressive weakening/worsening clinical status. Prognosis is poor, given her level of cross sensitivity from repeated transfusions and concurrent iron overload her treatment options are extremely limited. Patient is also suffering from a concurrent severe pneumonia with signs of cavitatio n/necrosis. ID recommendations also reviewed, Legionella pending.The above was discussed with Aleja Haq who reports that she understands her condition and would like to continue her current care, including intubation if necessary. Does not wish for hospice at this time, and expresses an understanding that she could become too sick to leave the hospital for outpatient hospice should she worsen she reports she understands that with her level of medical frailty she is highly likely to pass away on a vent and may not survive coming off of this, and that CPR would likely have a devastating effect on her quality of life but would like to remain full code at this time. Did have a visit with her grandkids, and has been discussing her goals of care extensively with her family who are appreciated of care, but also expressed that they understand that her prognosis is extremely grim. Continued stay , no end in sight for discharge, prognosis remains quite guarded Admission and Anticipated Discharge Date Admission Date: November 26, 2021 Subjective Continues to feel very fatigued, somewhat short of breath on nasal cannula, mild intermittent cough. Denies active bleeding. Denies pain at time of bedside assessment. Discussed her care with hematology/oncology. Patient is critically ill with likely secondary MDS, could have repeat bone marrow biopsy to confirm this but treatment options are limited and is unlikely to survive allograft. She remains sensitized with pressures to sites in her smear, continues to have severe thrombocytopenia and progressive weakening/worsening clinical status. Prognosis is poor, given her level of cross sensitivity from repeated transfusions and concurrent iron overload her treatment options are extremely limited. Patient is also suffering from a concurrent severe pneumonia with signs of cavitation/ necrosis. ID recommendations also reviewed, Legionella pending. The above was discussed with Aleja Haq who reports that she understands her condition and would like to continue her current care, including intubation if necessary. Does not wish for hospice at this time, and expresses an understanding that she could become too sick to leave the hospital for outpatient hospice should she worsen she reports she understands that with her level of medical frailty she is highly likely to pass away on a vent and may not survive coming off of this, and that CPR would likely have a devastating effect on her quality of life but would like to remain full code at this time. Did have a visit with her grandkids, and has been discussing her goals of care extensively with her family who are appreciated of care, but also expressed that they understand that her prognosis is extremely grim. Review of Systems Review of Systems: All systems reviewed & are unremarkable except as noted in Subjective Physical Exam Physical Exam: General: Chronically ill, frail, cachectic appearing female. No acute distress. Oriented to name, place, and month. HEENT: Atraumatic, normocephalic. Visual acuity/hearing grossly intact Pulm: Coarse breath sounds bilaterally, chest rise. No increase in work of breathing. No respiratory distress. Cardiac: RRR, -mrg. Radial pulses intact and symmetrical. Abdominal: Nontender, nondistended, soft. BS present. Extremities: Moving all extremities. Results & Data Results & Data ([facility]) Vital Signs (Past 12 Hours) Vital Signs Temp Pulse Resp BP Pulse Ox 12/22/21 04:15 36.9 C 91 H 19 96/55 L 94 12/22/21 04:12 36.8 C 102 H 20 94/53 L 91 12/22/21 03:45 37.3 C 102 H 20 80/41 L 93 12/22/21 03:32 108 H 20 93 12/22/21 03:30 36.8 C 108 H 20 93/52 L 94 12/22/21 03:20 37.2 C 104 H 20 101/57 L 12/22/21 03:06 37.2 C 113 H 20 101/57 L 90 12/22/21 00:50 37.3 C 112 H 20 101/57 L 77 L 12/22/21 00:10 110 H 23 92 12/22/21 00:00 103 H 12/21/21 23:50 37.5 C 112 H 18 104/57 L 84 L 12/21/21 22:50 36.4 C L 112 H 19 94/45 L 89 L 12/21/21 22:20 36.7 C 109 H 20 97/65 L 90 12/21/21 22:10 36.7 C 103 H 20 104/51 L 92 12/21/21 22:04 36.8 C 103 H 20 132/64 12/21/21 21:50 36.6 C 102 H 20 127/56 L 89 L PG Care Time/CCT Total # of Minutes Spent Total Time Spent with Patient: Total time spent is greater than 50% in coordination of care (as documented) at patient's floor/unit and/or counseling patient: Coding Level of Care Code 21750 Subseq Hosp Care Lvl 3 Diagnoses Fever R50.9 UTI (urinary tract infection) N39.0 Sepsis A41.9 Pancytopenia D61.818 Acute respiratory failure with hypoxia J96.01 Chronic kidney disease N18.9 MDS (myelodysplastic syndrome) D46.9 UGIB (upper gastrointestinal bleed) K92.2 COPD (chronic obstructive pulmonary disease) J44.9 Coagulopathy D68.9 AURORA (acute kidney injury) N17.9 Drug reaction [id number] COVID-19 U07.1 Hx of Clostridium difficile infection Z86.19 Cirrhosis of liver K74.60 SACHA (obstructive sleep apnea) G47.33 Prothrombin [id number] mutation D68.52 Migraine G43.909 Celiac disease K90.0 Urge and stress incontinence N39.46
[2021-12-22] MEDS: ONDANSETRON INJ 2 MG/ML 2 ML VIAL IV PRN (20:31)
[2021-12-22] MEDS: SERTRALINE HCL 50 MG TABLET PO SCH (23:12)
[2021-12-22] MEDS: METHOCARBAMOL 750 MG TABLET PO PRN (23:12)
[2021-12-22] MEDS: QUEtiapine FUMARATE 25 MG TABLET PO SCH (23:13)
[2021-12-22] MEDS: clonazePAM 0.5 MG TAB PO SCH (23:13)
[2021-12-22] MEDS: MIRABEGRON ER 25 MG TAB PO SCH (23:13)
[2021-12-23] MEDS: oxyCODONE HCL IR 5 MG TAB (IMMEDIATE RELEASE) PO PRN ×3 (01:23→20:28)
[2021-12-23] MEDS: AZTREONAM 2,000 MG in DEXTROSE 5% 100 ML IV SCH ×3 (02:07→19:26)
[2021-12-23] MEDS ORDERED: ALBUMIN 25% 100 mL 25 GM/100 ML VIAL IV ONE ×2 (04:12→11:15)
[2021-12-23] MEDS ORDERED: FUROSEMIDE 40 MG/4 ML VIAL IV ONE (04:13)
--- NOTE | 2021-12-23 04:21 | Communication Note ---
Date of Service: December 23, 2021 Called to assess the patient due to hypoxia and increased work of breathing in comparison to earlier in the night. Patient is afebrile but tachycardic at 116bpm and hypoxic at 89% while on 7L/min O2 via NC (previously on 6L over the last day). Tachypneic in high 20s as well. Normotensive 124/57. On exam the patient has subcostal/abdominal retractions and is tracheal tugging. Lung sounds are coarse with crackles bilaterally throughout. No LE edema. +abdominal fluid wave. Decline in respiratory status is largely in part due to fluid overload 2/2 re current need for infusions. PNA also contributing - already on abx for this. - ordered 25% Albumin 25g x1 as well as Lasix 40mg IV x1, given that patient has been intermittently hypotensive and is third spacing
[2021-12-23] MEDS ORDERED: FUROSEMIDE INJ 20 MG/2 ML VIAL IV ONE ×2 (04:31→09:00)
[2021-12-23 08:14] LABS: Hematocrit (blood only) 22.6 % (37-47); Hemoglobin 7.4 g/dL (12.0-16.0); Mean Corpuscular Hemoglobin 27.6 pg (25-34); Mean Corpuscular Volume 84.3 fL (80-100); Platelet Count 6 K/uL (130-400); RDW Coefficient of Variation 15.9 % (11.5-14.5); RDW Standard Deviation 49.9 fL (36.4-46.3); Red Blood Count 2.68 M/uL (4.2-5.4); White Blood Count 0.81 K/uL (4.8-10.8)
[2021-12-23 08:29] LABS: Calcium 7.5 mg/dl (8.5-10.1); Est GFR (African American) 61.9 ml/min; Est GFR (Non-African American) 53.5 ml/min; Potassium 3.6 mmol/L (3.5-5.1)
[2021-12-23] MEDS ORDERED: SODIUM CHLORIDE 0.9% 250 ML IV PRN ×3 (08:30→22:38)
--- NOTE | 2021-12-23 08:34 | Hospitalist Progress Note ---
Date of Service December 23, 2021 Assessment & Plan (1) Fever: Plan: Fever, recurrent She with multiple course of antibiotics during admission with intermittent resolution of fevers Fever 12/18 recurrent and acute hypoxic respiratory failure with crackles, UA clear, CXR with evidence of pneumonia Patient treated with cefepime 12/18 as was already on Merrem, patient had a allergic reaction with bullae to cefepime which was discontinued Aztreonam started 12/20 for gram-negative coverage Legionella pending RVP pending Respiratory sputum pending Repeat CXR with recent pneumonia and concern for necrosis/cavitation in upper field, with superimposed edema Treated with diuresis balanced against blood pressure, patient is also hypoalbuminemic and borderline hypotensive but improved with diuresis creatinine stable -Aztreonam started on 12/20 to cover for resistant gram-negative pneumonia Appreciate ID consultation-recommends discontinuing aztreonam as would expect meropenem to cover for Pseudomonas; also recommends checking respiratory virus panel and Legionella antigen, possible chest CT and pulmonary consult Chronic suppressive Diflucan resumed Worsened hypotension 12/23 in the setting of diuresis. Initially well tolerated, but hypotensive with hypoalbuminemia following morning doses. Repeat chest x- ray does show continued pulmonary edema, but with worsening pneumonia as well. RVP, Legionella remains pending as noted above, sputum culture pending, patient is maintained on aztreonam gram-negative coverage at this time. Patient with hives, rash and severe allergy to vancomycin, Rocephin, Zosyn, cefepime, sulfa and adverse reactions to levofloxacin in the past. 4: patient's clinical worsening, persistent fever, and worsening pneumonia on chest x-ray expanding antibiotics is reasonable and would cover for Legionella. Atypical coverage added with azithromycin, and EKG recheck prior for QT. Patient is on multiple QT prolonging medications and will need QT monitoring daily. Patient receiving blood, albumin, and a small amount of fluid back as suspect some of her hypotension is from overly rapid diuresis versus worsening infection. Pro-Paul/repeat cultures pending. Midodrine 7.5mg TID started for hypotension. DNR/DNI but not yet ready for CML, see below (2) UTI (urinary tract infection): Plan: History of Hydronephrosis with Ureteral Stent Placement. - history of ureteral stents placed in 07/2021 and subsequent exchange every 3 months, with some delays due to acute medical issues - chronic obstruction hydronephrosis with candidal UTI and known colonization of her ureteral stents - Unfortunately, had associated UTIs since that time-this admission with ESBL Klebsiella -Urology consulted about stent exchange - Spoke with urology on 12/05. Recommend that she be evaluated by tertiary care center for stent removal and nephrostomy tubes. This was discussed with tertiary care who did not accept patient for nephrostomy tube placement, stent exchange was revisited with urology and delayed multiple days secondary to acute anemia and hypotension/sepsis Completed course of meropenem on 12/06. Became febrile again 12/07, meropenem was restarted 12/08 for 10 day course Multiple discussions week of 12/15 with [facility] who did not accept patient for transfer for nephrostomy tube placement. Also discussed with [facility] hematology who recommended outpatient follow-up as below. Caspofungin dose adjusted perioperatively with history of Rachelle glabrata, anticipate conversion back to fluconazole for daily prophylaxis after course of caspofungin complete -Finally went for ureteral stent exchange on 12/19 despite ongoing fevers-needed to do it while on caspofungin to have best chance of not inducing candidemia repeat UA 12/19 neg for infection -On 12/19, again asked patient if she would be willing to transfer for nephrostomy tube placement to a larger hospital that is used to having cancer patients with thrombocytopenia and an experienced IR department i.e. somewhere in [place] or [place] or [place]. She still is unsure if she would do that at this time -Meropenem/caspofungin discontinued 12/21. Prophylactic Diflucan resumed. Additional abx as above (3) Sepsis: Plan: Sepsis- with recurrent UTI early in the course of admission, then another round of sepsis for recurrent UTI, and now with pneumonia on 12/18 She is chronically neutropenic and immunosuppressed Did require ICU stay twice during this admission for Levophed ESBL with Klebsiella pneumonia, patient did finish a course of meropenem on 12/06 but became febrile 24 hours on antibiotics and was recultured positive for ESBL E. coli sensitive to meropenem. 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 -S/p Neupogen 480 mcg SQ daily x 3 days-final dose on 11/29 -S/p Procrit 40,000 units x 1 on 11/29 - Received platelets on 11/27, 12/01, 12/02, 12/04, 12/06, 12/15, 12/18 12/19, 12/20, 3 3 - Received 2 units of PRBCs on 11/27 & 2 units on 12/06; 1 unit on 12/09, and 2 units on 12/16 Transfusion threshold 7 mg/DL,-no transfusion unless bleeding Patient difficult blood bank transfusion, requires [facility] blood bank supply Discussed with [facility] heme, patient was recommended for outpatient follow-up with repeat bone marrow biopsy, was not accepted/recommended for transfer. Discussion with [facility]. While patient could have bone marrow biopsy repeated here, first attempt was suboptimal and suggested that this be done by tertiary care where she would follow-up. May consider pending clinical course Revisited with hematology 01/18, considering repeat bone marrow biopsy although patient with comorbid infection, pancytopenia, and severe sensitization with grim prognosis Was remain less than 10, hemoglobin downtrending close to 7 likely gradual intravascular hemolysis. 3/4 with downtrending hemoglobin, hypotension today in the setting of diuresis above. 1 unit expiring today, to be given, platelets pending on order (5) Acute respiratory failure with hypoxia: Plan: Acute Hypoxic Respiratory Failure. 2/2 sepsis with concern for recent Covid upon admission Then was on room air for several weeks, now with increased oxygen requirements in the setting of pneumonia with? Underlying fluid overload from transfusions Wean off as tolerated Treating pneumonia as above Lasix as above, currently held with hypotension following AM dosing (6) Chronic kidney disease: Plan: CKD stage II-III (7) MDS (myelodysplastic syndrome): Plan: - As above. -Patient currently is transfusion dependent. - The patient has discussed her prognosis with multiple providers but does not want to pursue hospice care at this time. See goals discussion above - At this time we are only providing temporizing conditions with transfusions & IV abx. -Platelets down to 4 despite receiving platelets last night for hematuria Possibly worsened by current sepsis Transfuse platelets on 3/ Benadryl and Tylenol prior to transfusions Treatment as above (8) UGIB (upper gastrointestinal bleed): Plan: Suspected UGIB upon initial arrival - History primarily concerning for hematemesis/UGIB based on recent odynophagia, "spitting up blood" (non-projectile), nausea, decreased appetite. ?hemoptysis or epistaxis - Known history of HCV-induced cirrhosis. Last EGD seems to be 10/2019, per Dr. Chavez's [facility] note, which did NOT reveal any esophageal varices; did show Z-line irregularities and esophageal plaques c/w candidiasis - No need for octreotide with no h/o known varices - Initially in setting of significant coagulopathy (INR 2.5, PTT 77.2, Plt 11) -- notably progressed since prior admission, coagulopathy improved after FFP and Vit K. - GI consulted: Defer EGD unless emergent/emergent specialist patient has not had any signs/symptoms of upper GI bleed or melena/blood per rectum. consider outpatient EGD. patient with high periprocedural risk, continue PPI converted to twice daily. Hemoccult negative. - Initially on PPI gtt now been converted to PPI po bid -Patient with intravascular hemolysis and schistocytes, no overt GI bleeding 3/ (9) COPD (chronic obstructive pulmonary disease): Plan: With a history of smoking and lung cancer. - Nebs as needed (10) Coagulopathy: Plan: Coagulopathy / Thrombocytopenia - Admission labs concerning for INR 2.5 / PTT 77.2 / PLT 11 in setting of H&H 7.9 on arrival - notably worse from previous. ALso D-dimer 5000 - Suspected secondary to DIC from sepsis, in setting of MDS, liver disease with HCV history, poor nutrition (Vit K deficiency possibility) - S/p 2 units FFP and Vit K and coags normalized 12/04 - Received platelets on 11/27, 12/01, 12/02, 12/03, 12/15, 12/16,12/18 -? Liver synthetic dysfunction versus nutritional deficiency with history of reported cirrhosis, treated hep C. Recent liver imaging with heterogenous texture but not cirrhotic in appearance. Was repleted with vitamin K, continue management as above (11) AURORA (acute kidney injury): Plan: Acute Kidney Injury - Has history of CKD with creatinine baseline around 0.7 - 0.9. Cr at baseline as of 12/04. With recurrent acute kidney injury on 12/20 Creatinine now improved after IV fluids and improved blood pressure with sepsis (12) Drug reaction: Plan: Secondary to cefepime With erythematous rash all over her trunk, arms, legs with large bullae all over thighs and buttocks Have since discontinued cefepime Continue Benadryl as needed Wound care for ruptured bullae No oral lesions (13) COVID-19: Plan: COVID-19 - Patient recently tested positive again for COVID-19, first time at the end of October. - During last hospitalization, was not hypoxic and therefore was not started on dexamethasone / remdesivir. - No steroids needed as her hypoxia is not from COVID. - As per infection control on 12/02, off isolation precautions (14) Hx of Clostridium difficile infection: Plan: History of C. difficile Infection, loose BM earlier in admission since improved - On chronic vancomycin suppressive therapy twice weekly - Increased vancomycin 125 Mg p.o. 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 (18) Migraine: Plan: - Continue Topamax, Fioricet as needed (19) Celiac disease: Plan: Continue gluten-free diet (20) Urge and stress incontinence: Plan: - Continue oxybutynin Plan: Disposition: Multiple goals of care discussions have been had throughout this hospitalization with multiple providers She reports an understanding of her medical condition, and that she would like to pursue treatments including ICU, pressors, CPR, and intubation if needed at this time. She understands that she is transfusion dependent, that she would likely need a repeat bone marrow biopsy for further hematology work-up and even at that she may not be a good candidate for transplant/treatment but she would like to pursue aggressive care at this time and follow-up on any options available to her. She does express un derstanding that many of these, especially CPR, would have a substantial compromise to her quality of life and surgical interventions could be futile to her given her level of medical fragility. She is able to verbalize this risk, but expresses she would want to pursue these at this time if there is a chance in extending the length of her life. Discussed with her family by phone, who expressed that while they feel that she may benefit from a palliative approach. / Discussed her care with hematology/oncology. Patient is critically ill with likely secondary MDS, could have repeat bone marrow biopsy to confirm this but treatment options are limited and is unlikely to survive allograft. She remains sensitized with pressures to sites in her smear, continues to have severe thrombocytopenia and progressive weakening/worsening clinical status. Prognosis is poor, given her level of cross sensitivity from repeated transfusions and concurrent iron overload her treatment options are extremely limited. Patient is also suffering from a concurrent severe pneumonia with signs of cavitation/necrosis. ID recommendations also reviewed, Legionella pending.The above was discussed with Aleja Haq who reports that she understands her condition and would like to continue her current care, including intubation if necessary. Does not wish for hospice at this time, and expresses an understanding that she could become too sick to leave the hospital for outpatient hospice should she worsen she reports she understands that with her level of medical frailty she is highly likely to pass away on a vent and may not survive coming off of this, and that CPR would likely have a devastating effect on her quality of life but would like to remain full code at this time. Did have a visit with her grandkids, and has been discussing her goals of care extensively with her family who are appreciated of care, but also expressed that they understand that her prognosis is extremely grim. 3/4: Clinical deterioration with hypotension requiring addition of midodrine and ICU evaluation. Patient remains anemic with extremely limited ability to give blood transfusions and progressive iron overload, thrombocytopenic receiving platelets daily at this point, and continues with worsening pneumonia now expanded for atypical coverage as above. Visited goals of care with patient, initially expressing unchanged as above, on revisit patient expresses an understanding that CPR/intubation would likely be devastating to her quality of life and would like to move DNR/DNI but is not yet ready for comfort measures. Did discuss at length with her son who is an advocate for comfort measures for the patient so she could be with her children at the end of her life, but also respects marriages decision making. Patient of care and will continue to be in contact with provider team. Continued stay , no end in sight for discharge, prognosis remains quite guarded Admission and Anticipated Discharge Date Admission Date: November 26, 2021 Subjective Seen the bedside this morning. Received in extra dose of Lasix last night for pulmonary edema, tolerated well. Same dose of Lasix scheduled for this morning.Patient with severe hypotension to 60/40 following morning Lasix, suspect intravascular depletion despite continued pulmonary edema in the setting of hypoalbuminemia. Decreased oncotic pressure from both anemia and hypoalbuminemia.Hemoglobin 7.4, has 1 unit on hold which expires tonight at 230. Platelets pending arrival.She reports that she feels more tired this morning, but denies chest pain, chest pressure. Some shortness of breath improved with oxygen and Lasix overnight. Not feel feverish this morning, aware that she had a fever overnight. No nausea/vomiting. Eye abrasion continues to heal, patient denies bleeding or pain from this. Discussed her condition and care with both her and her son. Son is an advocate for her to see her family at the end of her life, and is aware that she is critically ill and secondary MDS complicated by severe sensitization and superimposed infection now with limited antibiotic choices due to extensive allergy with bullous skin reaction has an extremely poor prognosis. Aleja Haq expresses an understanding of this, affirms full measures including CPR/intubation at time of bedside visit. Her son reports that while he would not advocate that for her, also wants to respect her decision making. Does worry about her passing alone, and is going to have another discussion with patient's daughter and the patient this afternoon. Review of Systems 2 Review of Systems: All systems reviewed & are unremarkable except as noted in Subjective Physical Exam Physical Exam: General: Cachectic, frail. Awakens to voice easily and follows commands, oriented to name, place, and year. HEENT: PERRL acuity and hearing grossly intact. Abrasion overlying left eye. Multiple areas of skin hyperpigmentation/darkening and some scattered contusions and ecchymosis. Pulm: Diminished, coarse in the bases, no wheeze, bilateral lower lobe crackles with slight rales. On oxygen mask. Cardiac: Tachycardic. Radial pulses intact and symmetrical. Abdominal: Nontender, nondistended, soft. BS present. Results & Data Results & Data ([facility]) Vital Signs (Past 12 Hours) Vital Signs Temp Pulse Pulse Resp BP Pulse Ox 12/23/21 04:33 37.9 C H 115 H 18 92/50 L 90 12/23/21 00:00 115 H 12/22/21 23:00 36.4 C L 116 H 20 124/57 L 89 L PG Care Time/CCT Total # of Minutes Spent Total Time Spent with Patient: Total time spent is greater than 50% in coordination of care (as documented) at patient's floor/unit and/or counseling patient: Coding Level of Care Code 54648 Subseq Hosp Care Lvl 3 Diagnoses Fever R50.9 UTI (urinary tract infection) N39.0 Sepsis A41.9 Pancytopenia D61.818 Acute respiratory failure with hypoxia J96.01 Chronic kidney disease N18.9 MDS (myelodysplastic syndrome) D46.9 UGIB (upper gastrointestinal bleed) K92.2 COPD (chronic obstructive pulmonary disease) J44.9 Coagulopathy D68.9 AURORA (acute kidney injury) N17.9 Drug reaction T50.905A COVID-19 U07.1 Hx of Clostridium difficile infection Z86.19 Cirrhosis of liver K74.60 SACHA (obstructive sleep apnea) G47.33 Prothrombin [id number] mutation D68.52 Migraine G43.909 Celiac disease K90.0 Urge and stress incontinence N39.46
[2021-12-23] MEDS: VANCOMYCIN HCL 125 MG/2.5ML SOLN PO SCH (09:01)
[2021-12-23] MEDS: ACETAMINOPHEN 500 MG TAB PO PRN (09:01)
[2021-12-23] MEDS: METOPROLOL SUCC 25MG EXT REL TAB PO SCH (09:02)
[2021-12-23] MEDS: ACYCLOVIR 400 MG TAB PO SCH ×2 (09:02→20:06)
[2021-12-23 09:03] LABS: Mean Corpuscular Hgb Conc 32.7 g/dL (32-36)
[2021-12-23 09:04] LABS: Giant Platelets 1+; Ovalocytes 1+; Platelet Estimate SIGNIFIC DECREASED (Normal)
[2021-12-23] MEDS: PHENAZOPYRIDINE HCL 200 MG TAB PO PRN (09:04)
[2021-12-23] MEDS: OXYBUTYNIN CHLORIDE XL 5 MG TABCR PO SCH (09:05)
[2021-12-23] MEDS: FLUCONAZOLE 100 MG TAB PO SCH (09:05)
[2021-12-23] MEDS: RASPBERRY SYRUP 5 ML UDP PO SCH (09:05)
[2021-12-23] MEDS: MAGNESIUM OXIDE 400 MG TAB PO SCH (09:06)
[2021-12-23] MEDS: ADVANCED PROBIOTIC 1250 MG CAPSULE PO SCH (09:06)
[2021-12-23] MEDS: FERROUS SULFATE 325 MG TAB PO SCH (09:06)
[2021-12-23] MEDS: GABAPENTIN 400 MG CAP PO SCH (09:07)
[2021-12-23] MEDS: TOPIRAMATE 100 MG TAB PO SCH ×2 (09:07→20:08)
[2021-12-23] MEDS: CETIRIZINE HCL 10 MG TABLET PO SCH (09:07)
[2021-12-23] MEDS: PANTOprazole 40 MG TAB PO SCH ×2 (09:07→20:08)
[2021-12-23 09:08] LABS: ANC (manual) 0.25 K/uL (1.4-6.5); Basophils # (manual) 0.03 K/uL (0-0.2); Basophils % (manual) 3.4 %; Blast # (manual) 0.06 K/uL (0-0); Eosinophils # (manual) 0.01 K/uL (0-0.5); Eosinophils % (manual) 1.1 %; Lymphocytes % (manual) 48.9 %; Monocytes # (manual) 0.06 K/uL (0.11-0.59); Monocytes % (manual) 6.8 %; Myelocytes # (manual) 0.01 K/uL (0-0); Myelocytes % (manual) 1.1 %; Neutrophils # (manual) 0.25 K/uL (1.4-6.5); Neutrophils % (manual) 30.7 %
[2021-12-23] MEDS: FOLIC ACID 1 MG TAB PO SCH (09:08)
[2021-12-23] MEDS: FLUTICASONE/VILANTEROL 100/25MCG 14 PUFFS/INHALER INH SCH (09:08)
[2021-12-23] MEDS: METHOCARBAMOL 750 MG TABLET PO PRN ×2 (09:16→20:07)
[2021-12-23] MEDS ORDERED: SODIUM CHLORIDE 0.9% 1000ML 250 ML IV ONE (10:51)
--- NOTE | 2021-12-23 11:29 | XRay Report ---
XR chest 1V portable CLINICAL HISTORY: pulm edema serial exam TECHNIQUE: Single frontal radiograph of the chest was obtained. Comparison: Comparison is made to chest one view 12/22/2021 FINDINGS: No lines and tubes are seen. Calcified aortic knob is seen. Redemonstration of density in the right u pper lung. Interval worsening of diffuse airspace opacities. Prominence of the pulmonary vasculature is seen with interstitial thickening. No evidence of pleural effusion or pneumothorax. IMPRESSION: Interval worsening of multifocal airspace opacities compatible with pneumonia. Moderate pulmonary margarita ma, stable. ACT 112: Negative or not required by law. Electronically signed by: James Castañeda M.D. 12/23/2021 11:28 AM
--- NOTE | 2021-12-23 13:13 | Critical Care Consultation ---
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 We will continue with low doses of narcotics given her diffuse pain, but will avoid higher doses given the risk of worsening encephalopathy, decreased respiratory drive and hypertension. Pulmonary: History of COPD. Evidence of increased interstitial edema on chest x-ray likely related to volume. Will consider gentle diuresis once blood pressure allows. Cardiovascular: We will initiate the patient on midodrine 7.5 mg 3 times daily to maintain systolic blood pressures 90 or above. Hold all antihypertensives. Possible element of sepsis. Will obtain cultures as noted below. Obtain troponin and EKG. EF from 05/10/2021 reviewed with an EF of 55 to 60%. Gastrointestinal: History of cirrhosis. No evidence of ascites at this time. Renal: Creatinine stable. Follow urine output closely. Lactate within normal limits. Infectious disease: Obtain blood cultures and urine cultures. Procalcitonin ordered. Continue current antibiotics including azithromycin and aztreonam. Prior ID consult reviewed. She has a history of Rachelle glabrata. Hematologic: Patient with advanced MDS essentially transfusion dependent on a nearly daily basis. Oncology following the patient. Likely a poor candidate for bone marrow transplantation given her significant comorbidities. Essentially end-of-life. Patient reluctant at this time Endocrine: Monitor blood sugars closely. Consider stress dose steroids. Lines and tubes: Peripheral IVs and [place] catheter in place. VTE prophylaxis: SCDs. CODE STATUS: Code discussion held at length with patient at bedside. She is understanding that CPR and mechanical ventilation would likely not change her outcome and potentially cause prolonged suffering. She is agreeable to DNR/DNI at this time, but would like to continue with critical care services. Family at bedside: None present at this time. Disposition: ICU I have personally spent 65 minutes of critical care time in the direct management of this patient. This is a life/limb threatening event. This includes time spent evaluating patient, direct bedside care, chart review, placing orders, interpretation of diagnostic studies, discussion with consultants, patient, and family members, as well as other required patient management activities. This time is exclusive of all separately billable procedures, and teaching time and separate from and in addition to any other critical care service time. Thank you for allowing us to participate in the care of this patient. History of Present Illness Reason for Consultation: Hypotension Attending Physician: Babar Phan MD History of Present Illness 66-year-old female with a past medical history of myelodysplasia, refractory anemia, squamous cell carcinoma of the lung who has had a prolonged hospitalization presenting to the ICU due to hypotension. She is profoundly weak and complains of pain throughout her chest and back. She has been transfusion dependent on platelets and packed red blood cells almost on a daily basis. She was ultimately transferred to the ICU due to hypotension with systolic blood pressures in the 60s and diastolic blood pressures in the 30s. She had received platelet products and albumin and now she has systolic pressures in the 90s. Lactate is 1.3. She is currently on aztreonam. She has a history of recent hydronephrosis and ureteral stent placement. She is currently on fluconazole for daily prophylaxis given her history of Rachelle glabrata. Her chest x-ray from this afternoon demonstrated interval worsening multifocal airspace opacities with a suspicion of pulmonary edema. Hemoglobin checked this morning was 7.4. Platelet count of 6000. Creatinine was within normal limits. Blood cultures from 12/18 were negative. Urine cultures from 12/14 also unremarkable. Allergies Allergy/AdvReac Type Severity Reaction Status Date / Time bee venom protein (honey bee) Allergy Severe Difficulty Verified 11/26/21 21:14 Breathing adhesive Allergy Intermediate Red torn Verified 11/26/21 21:14 skin cefepime Allergy Intermediate Rash Verified 12/20/21 17:57 Iodinated Contrast Media Allergy Intermediate Hives Verified 11/26/21 21:14 iodine Allergy Intermediate Hives Verified 11/26/21 21:14 levofloxacin Allergy Intermediate numbness/we Verified 11/26/21 21:14 akness pregabalin Allergy Intermediate fever?/?cher Verified 11/26/21 21:14 h strawberry Allergy Intermediate Hives Verified 11/26/21 21:14 Sulfa (Sulfonamide Allergy Intermediate Rash, hives Verified 11/26/21 21:14 Antibiotics) vancomycin Allergy Intermediate Bullous Verified 11/26/21 21:14 skin rash allopurinol Allergy Mild Rash Verified 11/26/21 21:14 ceftriaxone [From Rocephin] Allergy Mild Rash Verified 11/26/21 21:14 piperacillin [From Zosyn] Allergy Mild Rash Verified 11/26/21 21:14 tazobactam [From Zosyn] Allergy Mild Rash Verified 11/26/21 21:14 venlafaxine Allergy Unknown Unknown Verified 11/26/21 21:14 gluten AdvReac Severe Celiac Dz Verified 11/26/21 21:14 = GI symptoms propoxyphene AdvReac Intermediate [employer] side Verified 11/26/21 21:14 effects Home Medications Medication Instructions Recorded Confirmed Type cetirizine 10 mg tablet (Zyrtec) 10 mg PO QAM 07/16/18 11/26/21 History folic acid 1 mg tablet 1 mg PO QAM 07/16/18 11/26/21 History magnesium oxide 400 mg PO QAM 07/16/18 11/26/21 History multivitamin 1 tab PO QAM 07/16/18 11/26/21 History vitamin B complex (B-Complex) 1 tab PO QAM 07/16/18 11/26/21 History calcium carbonate 600 mg-vitamin 1 tab PO QPM 11/26/18 11/26/21 History D3 20 mcg (800 unit) tablet (Caltrate with Vitamin D3) cyanocobalamin (vitamin B-12) 1,000 mcg IM MONTHLY 02/10/19 11/26/21 History 1,000 mcg/mL injection solution ferrous sulfate 325 mg (65 mg 325 mg PO QAM 02/10/19 11/26/21 History iron) tablet (iron) vitamin E 400 unit capsule 400 unit PO QAM 08/28/19 11/26/21 History Medical Marijuana 1 ml SUBLINGUAL UD PRN 06/27/20 11/26/21 History denosumab 60 mg/mL subcutaneous 60 mg SUBCUT .q 6 months ml 12/17/20 11/26/21 History syringe (Prolia) acetaminophen 500 mg capsule 500 mg PO QID PRN 01/24/21 11/26/21 History L.acidophilus-B.animalis-B.longum 1 cap PO QAM 02/03/21 11/26/21 History 15 billion cell capsule albuterol sulfate 90 mcg/actuation 2 puff INHALATION QID PRN #8.5 gm 04/22/21 11/26/21 Rx aerosol inhaler (ProAir HFA) metoprolol succinate 50 mg 25 mg PO QAM #45 tab 05/23/21 11/26/21 Rx tablet,extended release 24 hr Auto Titrating CPAP #1 ea 06/01/21 10/24/21 Rx CPAP Supplies #1 ea 06/01/21 10/24/21 Rx methocarbamol 750 mg tablet 750 mg PO BID PRN #60 tab 06/21/21 11/26/21 Rx rizatriptan 10 mg tablet 10 mg PO DAILY PRN #9 tab 06/21/21 11/26/21 Rx oxybutynin chloride 10 mg 10 mg PO QAM #90 tab 07/14/21 11/26/21 Rx tablet,extended release 24 hr mirabegron 50 mg tablet,extended 50 mg PO HS #90 tab 07/25/21 11/26/21 Rx release 24 hr (Myrbetriq) coQ10 (ubiquinol) 200 mg capsule 200 mg PO QAM 08/10/21 11/26/21 History doxycycline hyclate 100 mg capsule 100 mg PO QDD 08/10/21 11/26/21 History gabapentin 400 mg capsule 400 mg PO QAM 30 Days #30 cap 08/11/21 11/26/21 Rx (Neurontin) potassium chloride 20 mEq 20 meq PO QAM #30 tab 08/11/21 11/26/21 Rx tablet,extended release oxycodone 5 mg tablet 5 mg PO Q4H PRN #20 tab 08/18/21 11/26/21 Rx budesonide-formoterol HFA 80 2 puff INHALATION BID #3 inhaler 08/22/21 11/26/21 Rx mcg-4.5 mcg/actuation aerosol inhaler (Symbicort) clonazepam 1 mg tablet 0.5 mg PO HS #30 tab 08/22/21 11/26/21 Rx quetiapine 50 mg tablet (Seroquel) 50 mg PO HS #30 tab 08/22/21 11/26/21 Rx pbxvzzebre-txsderahtwjav-hqtkazfe 1 tab PO DAILY PRN 30 Days #12 tab 09/27/21 11/26/21 Rx 50 mg-325 mg-40 mg tablet (Esgic) sertraline 50 mg tablet (Zoloft) 50 mg PO HS #30 tab 10/03/21 11/26/21 Rx cephalexin 500 mg capsule 500 mg PO QDD 10/12/21 11/26/21 History triamcinolone acetonide 0.025 % 1 applic TOPICAL BID PRN #80 g 10/17/21 11/26/21 Rx topical cream diphenhydramine HCl 25 mg capsule 25 mg PO Q6H PRN 10/31/21 11/26/21 History (Benadryl) acyclovir 400 mg tablet 400 mg PO AMHS 11/17/21 11/26/21 History topiramate 100 mg tablet (Topamax) 100 mg PO QAM 11/17/21 11/26/21 History topiramate 200 mg tablet (Topamax) 200 mg PO HS 11/17/21 11/26/21 History vancomycin 125 mg capsule 125 mg PO 2XWK 11/17/21 11/26/21 History ergocalciferol (vitamin D2) 1,250 50,000 unit PO WK 11/26/21 11/26/21 History mcg (50,000 unit) capsule phenazopyridine 200 mg tablet 200 mg PO BID PRN 11/26/21 11/26/21 History (Pyridium) Patient History Medical History (Updated 12/23/21 @ 13:23 by Alex Sampson MD) Acute UTI (urinary tract infection) [facility] (acute kidney injury) Arterial hypotension Asthma Celiac disease Cellulitis Recurrent B/L LE - on prophylactic abx (Follows with Dr. Nielson). on chronic Cephalexin and Doxy Chronic back pain Chronic kidney disease Stage III > follows Dr. Fleming Chronic obstructive pulmonary disease Emphysema Cirrhosis of liver Hx of Hep C with cirrhosis COVID-19 Dehydration Depression End of life care Fever History of blood transfusion History of recurrent UTI (urinary tract infection) Hx MRSA infection several yrs ago Hx of cancer of lung s/p radiation (2012), recurrence (2019 in [facility]) s/p radiation- follows with heme/onc Hx of Clostridium difficile infection on Vanco 2x/week for prophylaxis Hx of deep venous thrombosis LLE (1976) Hx of hepatitis C 2013 > "resolved" Hx of non-Hodgkin's lymphoma s/p treatment in 2013 Hydronephrosis b/l chronic hydronephrosis requiring routine stent exchanges Hyperlipidemia Migraine Mood disorder Myelodysplasia (myelodysplastic syndrome) Diagnosed 07/09/21 by bone marrow biopsy. Being treated with Azacitidine and Procrit injections. 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 Pagan Thrombocytopenia Chronic (platelet baseline in the 40-70s over the past few months) Venous stasis dermatitis Surgical History H/O bursectomy Right knee History of bone marrow biopsy History of bronchoscopy History of carpal tunnel release Left History of cystoscopy Multiple Bilateral Retrograde Pyelogram (05/27/21): MAC at [facility] History of esophagogastroduodenoscopy (EGD) History of liver biopsy History of tooth extraction History of ureter stent MULTIPLE Hx of bladder repair surgery FOR PROLAPSE Hx of colonoscopy Hx of tonsillectomy Hx of tubal ligation Family History Unknown Heart disease Hypertension Mother Psoriasis Diabetes Social History Smoking Status: Former smoker Tobacco Type: Cigarettes Cigarettes Per Day: Quit 02/2011; Second Hand Exposure: No; Hx Alcohol Use: No Hx Substance Use: No Preferred Language: Portuguese Communication Ability: Unable Visual Impairment: No Limitations Hearing Ability: Normal Digester Operator Required: No Beliefs That Will Affect Care: None marital status: / Current Living Situation: Family Current Living Situation Comment: Son and son's girlfriend current occupational status: retired How many Children do You have: 1 Feels Safe at Home: Yes Assistive Devices: Glasses, Oxygen - at Night and Oxygen - Continuous Review of Systems Review of Systems: All systems reviewed & are unremarkable except as noted in Subjective Physical Exam Physical Exam: Constitutional: Frail and cachectic appearing female. Eyes: Pupils are equal round and reactive to light. Conjunctivae are normal. Anicteric sclera. Ears nose, mouth and throat: Oral mucosa is dry. Neck: Trachea is midline. Visual inspection is normal. Respiratory: Tachypnea present. Coarse rhonchi bilaterally. Cardiovascular: Regular rate and rhythm. No murmurs. No edema. Gastrointestinal: Normal bowel sounds, soft, nontender and nondistended. No hepatosplenomegaly noted. Musculoskeletal: Diffusely weak. Able to move extremities. Skin: Diffuse areas of bruising, erythema and blisters Neurologic: No obvious focal neurological deficits seen. Psychiatric: Alert and oriented x3 with a euthymic affect. Results & Data Results & Data ([facility]) Vital Signs (Past 12 Hours) Vital Signs Temp Pulse Pulse Resp BP BP BP 12/23/21 12:24 22 65/35 L 12/23/21 12:11 36.8 C 103 H 18 63/28 L 12/23/21 12:04 63/28 L 12/23/21 11:45 62/32 L 12/23/21 11:33 60/32 L 12/23/21 11:16 60/40 L 12/23/21 10:51 36.2 C L 107 H 16 68/37 L 12/23/21 10:45 65/36 L 12/23/21 08:00 112 H 12/23/21 07:30 37.7 C H 123 H 22 102/52 L 12/23/21 04:33 37.9 C H 115 H 18 92/50 L Pulse Ox 12/23/21 12:24 12/23/21 12:11 90 12/23/21 12:04 12/23/21 11:45 12/23/21 11:33 12/23/21 11:16 12/23/21 10:51 94 12/23/21 10:45 12/23/21 08:00 12/23/21 07:30 90 12/23/21 04:33 90 Coding Level of Care Code Critical Care 1st 30-74 mins Diagnoses Arterial hypotension I95.9 MDS (myelodysplastic syndrome) D46.9 Acute respiratory failure with hypoxia J96.01 Chronic kidney disease N18.9 Pulmonary emphysema J43.9 COPD (chronic obstructive pulmonary disease) J44.9 End of life care Z51.5 Time Spent (min) 65
[2021-12-23] MEDS: MIDODRINE HCL 2.5 MG TAB PO SCH ×2 (13:42→18:25)
[2021-12-23] MEDS ORDERED: AZITHROMYCIN 500 MG in DEXTROSE 5% 250 ML IV ONE (14:30)
[2021-12-23 14:45] LABS: Hematocrit (blood only) 23.6 % (37-47); Hemoglobin 7.9 g/dL (12.0-16.0); Mean Corpuscular Hemoglobin 27.9 pg (25-34); Mean Corpuscular Volume 83.4 fL (80-100); Platelet Count 6 K/uL (130-400); RDW Coefficient of Variation 15.8 % (11.5-14.5); RDW Standard Deviation 48.7 fL (36.4-46.3); Red Blood Count 2.83 M/uL (4.2-5.4); White Blood Count 0.79 K/uL (4.8-10.8)
[2021-12-23 14:51] LABS: Mean Corpuscular Hgb Conc 33.5 g/dL (32-36)
[2021-12-23 14:53] LABS: ALC (manual) 0.34 K/uL (1.2-3.4); ANC (manual) 0.24 K/uL (1.4-6.5); Basophils # (manual) 0.06 K/uL (0-0.2); Basophils % (manual) 7.7 %; Blast # (manual) 0.04 K/uL (0-0); Blast Cells % (manual) 5.1 %; Hypogranular Neutrophils 1+; Lymphocytes # (manual) 0.34 K/uL (1.2-3.4); Lymphocytes % (manual) 43.5 %; Monocytes # (manual) 0.08 K/uL (0.11-0.59); Monocytes % (manual) 10.3 %; Myelocytes # (manual) 0.02 K/uL (0-0); Myelocytes % (manual) 2.6 %; Neutrophils # (manual) 0.24 K/uL (1.4-6.5); Neutrophils % (manual) 30.8 %; Platelet Estimate SIGNIFIC DECREASED (Normal); Toxic Vacuolation 1+
[2021-12-23] MEDS ORDERED: STAT IV Infusion **Titration per Protocol STA (15:54)
[2021-12-23] MEDS: PHENYLEPHRINE HCL 20 MG in DEXTROSE 5% 500 ML IV SCH ×2 (16:09→22:10)
--- NOTE | 2021-12-23 19:12 | Electrocardiogram Report ---
Test Reason : Blood Pressure : / mmHG Vent. Rate : 099 BPM Atrial Rate : 099 BPM P-R Int : 134 ms QRS Dur : 080 ms QT Int : 376 ms P-R-T Axes : 063 059 003 degrees QTc Int : 482 ms Normal sinus rhythm Low voltage QRS Incomplete right bundle branch block Nonspecific ST abnormality Abnormal ECG When compared with ECG of 07-DEC-2021 23:44, QRS voltage has decreased Nonspecific T wave abnormality now evident in Inferior leads T wave inversion now evident in Anterior leads Confirmed by Reynold Garcia ([id number]) on 12/23/2021 7:11:55 PM Referred By: REFERRED SELF Confirmed By:Agus Garcia
[2021-12-23] MEDS: MIRABEGRON ER 25 MG TAB PO SCH (20:07)
[2021-12-23] MEDS: QUEtiapine FUMARATE 25 MG TABLET PO SCH (20:07)
[2021-12-23] MEDS: SERTRALINE HCL 50 MG TABLET PO SCH (20:08)
[2021-12-23] MEDS: clonazePAM 0.5 MG TAB PO SCH (20:11)
[2021-12-24] MEDS: AZTREONAM 2,000 MG in DEXTROSE 5% 100 ML IV SCH ×3 (02:16→18:20)
[2021-12-24] MEDS: PHENYLEPHRINE HCL 20 MG in DEXTROSE 5% 500 ML IV SCH ×3 (02:54→14:20)
[2021-12-24 05:07] LABS: BUN Creatinine Ratio 23.6 (10-20); Calcium 7.8 mg/dl (8.5-10.1); Creatinine Clr Calc Pharmacy 32.1 ml/min; Est GFR (African American) 42.3 ml/min; Est GFR (Non-African American) 36.5 ml/min; Potassium 3.8 mmol/L (3.5-5.1)
[2021-12-24 05:29] LABS: Mean Corpuscular Hemoglobin 27.7 pg (25-34); Mean Corpuscular Hgb Conc 33.3 g/dL (32-36); Nucleated RBC # (auto) 0.03 K/uL (0-0); Nucleated RBC % (auto) 1.4 %; Platelet Count 14 K/uL (130-400); Platelet Estimate SIGNIFIC DECREASED (Normal); RBC Morphology Unremarkable; RDW Standard Deviation 48.9 fL (36.4-46.3); Red Blood Count 2.89 M/uL (4.2-5.4); White Blood Count 2.33 K/uL (4.8-10.8)
[2021-12-24 06:27] LABS: ALC (manual) 1.01 K/uL (1.2-3.4); ANC (manual) 0.91 K/uL (1.4-6.5); Basophils # (manual) 0.04 K/uL (0-0.2); Basophils % (manual) 1.8 %; Blast # (manual) 0.12 K/uL (0-0); Blast Cells % (manual) 5.3 %; Lymphocytes # (manual) 1.01 K/uL (1.2-3.4); Lymphocytes % (manual) 43.4 %; Monocytes # (manual) 0.25 K/uL (0.11-0.59); Monocytes % (manual) 10.6 %; Neutrophils # (manual) 0.91 K/uL (1.4-6.5); Neutrophils % (manual) 38.9 %
[2021-12-24] MEDS ORDERED: MoRPHine SULFATE 2 MG/ML CARP IV STA (08:32)
--- NOTE | 2021-12-24 08:43 | Critical Care Progress Note ---
Date of Service December 24, 2021 Assessment & Plan (1) Arterial hypotension: (2) MDS (myelodysplastic syndrome): (3) Acute respiratory failure with hypoxia: (4) Chronic kidney disease: (5) Pulmonary emphysema: (6) COPD (chronic obstructive pulmonary disease): (7) End of life care: Plan: 66-year-old female with refractory thrombocytopenia, HCV induced cirrhosis, MDS, COPD and lung cancer with squamous cell lung cancer status post SBRT who is currently in the ICU due to hypotension and failure to thrive Neurologic: Patient remains lethargic but alert and oriented x3. She describes having a lot of pain and is requesting pain medications. Discussion with patient at bedside regarding goals of care. At this time she would like to proceed with comfort measures only. The son was informed and is agreeable. He would like to be present before we discontinue certain things such as pressors routine medical care so that he can be by her side in case she passes quickly. Pulmonary: History of COPD. Evidence of increased interstitial edema on chest x-ray likely related to volume. Will consider gentle diuresis once blood pressure allows. Cardiovascular: Continue midodrine 7.5 3 times daily until comfort measures are officially initiated. Continue phenylephrine for the time being to maintain mean arterial pressures above 55. Gastrointestinal: History of cirrhosis. No evidence of ascites at this time. Renal: Creatinine worsening likely related to ischemic ATN. Infectious disease: Repeat blood and urine cultures pending. Continue current antibiotics including azithromycin and aztreonam. Prior ID consult reviewed. She has a history of Rachelle glabrata. Hematologic: Patient with advanced MDS essentially transfusion dependent on a nearly daily basis. Oncology following the patient. Likely a poor candidate for bone marrow transplantation given her significant comorbidities. Essentially end-of-life. Patient is agreeable to comfort measures at this time. Endocrine: Monitor blood sugars closely. Lines and tubes: Peripheral IVs and [place] catheter in place. VTE prophylaxis: SCDs. CODE STATUS: DNR/DNI with progression to comfort measures once family is at bedside. Family at bedside: None present at this time. Disposition: ICU I have personally spent 48 minutes of critical care time in the direct management of this patient. This is a life/limb threatening event. This includes time spent evaluating patient, direct bedside care, chart review, placing orders, interpretation of diagnostic studies, discussion with consultants, patient, and family members, as well as other required patient management activities. This time is exclusive of all separately billable procedures, and teaching time and separate from and in addition to any other critical care service time. Thank you for allowing us to participate in the care of this patient. Admission and Anticipated Discharge Date Admission Date: November 26, 2021 Subjective Patient seen and examined. She has marked tachypnea and shortness of breath this morning. She is currently on BiPAP. She describes diffuse pain. She is currently on low-dose of phenylephrine via peripheral IV. Review of Systems Review of Systems: All systems reviewed & are unremarkable except as noted in HPI & below Physical Exam Physical Exam: Constitutional: Frail and cachectic appearing female. Eyes: Pupils are equal round and reactive to light. Conjunctivae are normal. Anicteric sclera. Ears nose, mouth and throat: Oral mucosa is dry. Neck: Trachea is midline. Visual inspection is normal. Respiratory: Tachypnea present. Coarse rhonchi bilaterally. Cardiovascular: Regular rate and rhythm. No murmurs. No edema. Gastrointestinal: Normal bowel sounds, soft, nontender and nondistended. No hepatosplenomegaly noted. Musculoskeletal: Diffusely weak. Able to move extremities. Skin: Diffuse areas of bruising, erythema and blisters Neurologic: No obvious focal neurological deficits seen. Psychiatric: Alert and oriented x3 with a euthymic affect. Results & Data Results & Data ([facility]) Vital Signs (Past 12 Hours) Vital Signs Temp Pulse Resp BP Pulse Ox 12/24/21 07:00 96 H 16 92/40 L 92 12/24/21 06:00 95 H 102/46 L 93 12/24/21 05:30 94 H 87/46 L 92 12/24/21 05:00 92 H 98/42 L 95 12/24/21 04:30 94 H 97/44 L 93 12/24/21 04:14 37.1 C 12/24/21 04:00 93 H 93/46 L 95 12/24/21 03:35 93 H 16 90 12/24/21 03:00 100 H 96 12/24/21 02:00 92 H 82/46 L 12/24/21 01:30 91 H 97/48 L 12/24/21 01:00 91 H 100/50 L 92 12/24/21 00:30 93 H 90/46 L 03/05/22 00:29 37.2 C 12/24/21 00:00 92 H 96/47 L 94 12/23/21 23:30 93 H 14 87/40 L 92 12/23/21 23:00 93 H 94/44 L 92 12/23/21 22:32 94 H 93/38 L 92 12/23/21 22:30 94 H 58/39 L 91 12/23/21 22:00 97 H 72/50 L 12/23/21 21:31 96 H 15 153/121 H 12/23/21 21:00 98 H 16 90/44 L 12/23/21 20:45 37.3 C Coding Level of Care Code Critical Care 1st 30-74 mins Diagnoses Arterial hypotension I95.9 MDS (myelodysplastic syndrome) D46.9 Acute respiratory failure with hypoxia J96.01 Chronic kidney disease N18.9 Pulmonary emphysema J43.9 COPD (chronic obstructive pulmonary disease) J44.9 End of life care Z51.5 Time Spent (min) 48
[2021-12-24] MEDS ORDERED: AZITHROMYCIN 250 MG in DEXTROSE 5% 250 ML IV SCH (09:00)
[2021-12-24] MEDS: CETIRIZINE HCL 10 MG TABLET PO SCH (10:15)
[2021-12-24] MEDS: FERROUS SULFATE 325 MG TAB PO SCH (10:15)
[2021-12-24] MEDS: ACYCLOVIR 400 MG TAB PO SCH (10:15)
[2021-12-24] MEDS: MIDODRINE HCL 2.5 MG TAB PO SCH ×3 (10:15→17:50)
[2021-12-24] MEDS: FLUTICASONE/VILANTEROL 100/25MCG 14 PUFFS/INHALER INH SCH (10:15)
[2021-12-24] MEDS: GABAPENTIN 400 MG CAP PO SCH (10:16)
[2021-12-24] MEDS: PANTOprazole 40 MG TAB PO SCH ×2 (10:16→21:08)
[2021-12-24] MEDS: METOPROLOL SUCC 25MG EXT REL TAB PO SCH (10:16)
[2021-12-24] MEDS: ADVANCED PROBIOTIC 1250 MG CAPSULE PO SCH (10:16)
[2021-12-24] MEDS: MAGNESIUM OXIDE 400 MG TAB PO SCH (10:16)
[2021-12-24] MEDS: OXYBUTYNIN CHLORIDE XL 5 MG TABCR PO SCH (10:16)
[2021-12-24] MEDS: FOLIC ACID 1 MG TAB PO SCH (10:16)
[2021-12-24] MEDS: RASPBERRY SYRUP 5 ML UDP PO SCH (10:17)
[2021-12-24] MEDS: TOPIRAMATE 100 MG TAB PO SCH ×2 (10:17→21:09)
[2021-12-24] MEDS: VANCOMYCIN HCL 125 MG/2.5ML SOLN PO SCH (10:17)
--- NOTE | 2021-12-24 10:49 | Hospitalist Progress Note ---
Date of Service December 24, 2021 Assessment & Plan (1) Comfort measures only status: Plan: Comfort measures status 12/24: Patient with continued clinical deterioration on pressors with extensive treatment as below. Patient expressed readiness to move to comfort measures only today with son at bedside to inkjet operator, and then later to hospitalist at bedside. Like to continue phenylephrine and current treatment until additional family is able to be at bedside, then discontinue pressors and moved to comfort measures status in the hospital. At this time patient is to critically ill with worsening multiorgan failure including pancytopenia/bone marrow shutdown, intra vascular hemolysis with blood sensitization, iron overload, AURORA, and progressive hypoxic respiratory failure with superimposed fevers likely from pneumonia not responding to broad and atypical coverage with treatment course limited by extensive severe allergic reactions. Will follow, convert to comfort measures once family has arrived. Will have on-call Ativan for anxiety, morphine for pain, glycopyrrolate/atropine as needed, discontinue lab draws/vitals monitoring, no further transfusions/antibiotics/interventions. Discussed with nursing visitation in the circumstance, patient may have family with her and will transfer to third floor once ready, however should not have children/family members under age 18 at this time. Documentation below left for narrative completion; labs, antibiotics, transfusions, pressors, and other interventions noted below being discontinued on moved to [employer]. (2) Fever: Plan: Fever, recurrent She with multiple course of antibiotics during admission with intermittent resolution of fevers Fever 12/18 recurrent and acute hypoxic respiratory failure with crackles, UA clear, CXR with evidence of pneumonia Patient treated with cefepime 12/18 as was already on Merrem, patient had a allergic reaction with bullae to cefepime which was discontinued Aztreonam started 12/20 for gram-negative coverage Legionella pending RVP pending Respiratory sputum was ordered, unable to be collected due to inability to expectorate, collection deferred following [employer] goals of care Repeat CXR with recent pneumonia and concern for necrosis/cavitation in upper field, with superimposed edema Treated with diuresis balanced against blood pressure, patient is also hypoalbuminemic and borderline hypotensive but improved with diuresis creatinine stable -Aztreonam started on 12/20 to cover for resistant gram-negative pneumonia Appreciate ID consultation-recommends discontinuing aztreonam as would expect meropenem to cover for Pseudomonas; also recommends checking respiratory virus panel and Legionella antigen, possible chest CT and pulmonary consult Chronic suppressive Diflucan resumed Worsened hypotension 3/ in the setting of diuresis. Initially well tolerated, but hypotensive with hypoalbuminemia following morning doses. Repeat chest x- ray does show continued pulmonary edema, but with worsening pneumonia as well. RVP, Legionella remains pending as noted above, sputum culture pending, patient is maintained on aztreonam gram-negative coverage at this time. Patient with hives, rash and severe allergy to vancomycin, Rocephin, Zosyn, cefepime, sulfa and adverse reactions to levofloxacin in the past. 3/4: patient's clinical worsening, persistent fever, and worsening pneumonia on chest x-ray expanding antibiotics is reasonable and would cover for Legionella. Atypical coverage added with azithromycin, and EKG recheck prior for QT. Patient is on multiple QT prolonging medications and will need QT monitoring daily. Patient receiving blood, albumin, and a small amount of fluid back as suspect some of her hypotension is from overly rapid diuresis versus w orsening infection. Pro-Paul/repeat cultures pending. Midodrine 7.5mg TID started for hypotension. DNR/DNI but not yet ready for CML, see below 3/5: Worsened hypoxia, AURORA, required BiPAP overnight, on oxygen mask. Decision made to pursue [employer] goals of care as noted above. (3) UTI (urinary tract infection): Plan: History of Hydronephrosis with Ureteral Stent Placement. - history of ureteral stents placed in 07/2021 and subsequent exchange every 3 months, with some delays due to acute medical issues - chronic obstruction hydronephrosis with candidal UTI and known colonization of her ureteral stents - Unfortunately, had associated UTIs since that time-this admission with ESBL Klebsiella -Urology consulted about stent exchange - Spoke with urology on 12/05. Recommend that she be evaluated by tertiary care center for stent removal and nephrostomy tubes. This was discussed with tertiary care who did not accept patient for nephrostomy tube placement, stent exchange was revisited with urology and delayed multiple days secondary to acute anemia and hypotension/sepsis Completed course of meropenem on 12/06. Became febrile again 12/07, meropenem was restarted 12/08 for 10 day course Multiple discussions week of 12/15 with [facility] who did not accept patient for transfer for nephrostomy tube placement. Also discussed with [facility] hematology who recommended outpatient follow-up as below. Caspofungin dose adjusted perioperatively with history of Rachelle glabrata, anticipate conversion back to fluconazole for daily prophylaxis after course of caspofungin complete -Finally went for ureteral stent exchange on 12/19 despite ongoing fevers-needed to do it while on caspofungin to have best chance of not inducing candidemia repeat UA 12/19 neg for infection -On 12/19, again asked patient if she would be willing to transfer for nephrostomy tube placement to a larger hospital that is used to having cancer patients with thrombocytopenia and an experienced IR department i.e. somewhere in [place] or [place] or [place]. She still is unsure if she would do that at this time -Meropenem/caspofungin discontinued 12/21. Prophylactic Diflucan resumed. Additional abx as above (4) Sepsis: Plan: Sepsis- with recurrent UTI early in the course of admission, then another round of sepsis for recurrent UTI, and now with pneumonia on 12/18 She is chronically neutropenic and immunosuppressed Did require ICU stay twice during this admission for Levophed ESBL with Klebsiella pneumonia, patient did finish a course of meropenem on 12/06 but became febrile 24 hours on antibiotics and was recultured positive for ESBL E. coli sensitive to meropenem. 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, temporarily converted to caspofungin pending stent exchange-now complete -Then added on cefepime to cover in case of resistant Pseudomonas with pneumonia on 12/18 -allergic reaction to Cefepime 12/19 with rash and bullae developing 12/20--> stopped Cefepime, Azithro started as above MRSA swab is negative Appreciate ID consultation Legionella ordered, was pending at time of [employer] order set although patient was treated with adjunct azithromycin with continued clinical deterioration (5) Pancytopenia: Plan: Pancytopenia/secondary MDS - Patient with known 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 -S/p Neupogen 480 mcg SQ daily x 3 days-final dose on 11/29 -S/p Procrit 40,000 units x 1 on 11/29 - Received platelets on 11/27, 12/01, 12/02, 12/04, 12/06, 12/15, 12/18 12/19, 12/20, 3 3 - Received 2 units of PRBCs on 11/27 & 2 units on 12/06; 1 unit on 12/09, and 2 units on 12/16 Transfusion threshold 7 mg/DL,-no transfusion unless bleeding Patient difficult blood bank transfusion, requires [place] blood bank supply Discussed with [facility], patient was recommended for outpatient follow-up with repeat bone marrow biopsy, was not accepted/recommended for transfer. Discussion with [facility]. While patient could have bone marrow biopsy repeated here, first attempt was suboptimal and suggested that this be done by tertiary care where she would follow-up. May consider pending clinical course Revisited with hematology 01/18, considering repeat bone marrow biopsy although patient with comorbid infection, pancytopenia, and severe sensitization with grim prognosis Was remain less than 10, hemoglobin downtrending close to 7 likely gradual intravascular hemolysis. 3/ with downtrending hemoglobin, hypotension today in the setting of diuresis above. 1 unit expiring today, to be given, platelets pending on order 3/ still tender as above (6) Acute respiratory failure with hypoxia: Plan: Acute Hypoxic Respiratory Failure. 2/ sepsis with concern for recent Covid upon admission Then was on room air for several weeks, now with increased oxygen requirements in the setting of pneumonia with? Underlying fluid overload from transfusions Wean off as tolerated Treating pneumonia as above Lasix as above, held with hypotension following AM dosing worsening respiratory failure on bipap 3/4, [employer] 3/5 (7) Chronic kidney disease: Plan: CKD stage II-III (8) MDS (myelodysplastic syndrome): Plan: - As above. -Patient currently is transfusion dependent. - The patient has discussed her prognosis with multiple providers but does not want to pursue hospice care at this time. See goals discussion above - At this time we are only providing temporizing conditions with transfusions & IV abx. -Platelets down to 4 despite receiving platelets last night for hematuria Possibly worsened by current sepsis Transfuse platelets on 12/21 Benadryl and Tylenol prior to transfusions Treatment as above (9) UGIB (upper gastrointestinal bleed): Plan: Suspected UGIB upon initial arrival - History primarily concerning for hematemesis/UGIB based on recent odynophagia, "spitting up blood" (non-projectile), nausea, decreased appetite. ?hemoptysis or epistaxis - Known history of HCV-induced cirrhosis. Last EGD seems to be 10/2019, per Dr. Chavez's [facility] note, which did NOT reveal any esophageal varices; did show Z-line irregularities and esophageal plaques c/w candidiasis - No need for octreotide with no h/o known varices - Initially in setting of significant coagulopathy (INR 2.5, PTT 77.2, Plt 11) -- notably progressed since prior admission, coagulopathy improved after FFP and Vit K. - GI consulted: Defer EGD unless emergent/emergent specialist patient has not had any signs/symptoms of upper GI bleed or melena/blood per rectum. consider outpatient EGD. patient with high periprocedural risk, continue PPI converted to twice daily. Hemoccult negative. - Initially on PPI gtt now been converted to PPI po bid -Patient with intravascular hemolysis and schistocytes, no overt GI bleeding (10) COPD (chronic obstructive pulmonary disease): Plan: With a history of smoking and lung cancer. - Nebs as needed (11) Coagulopathy: Plan: Coagulopathy / Thrombocytopenia - Admission labs concerning for INR 2.5 / PTT 77.2 / PLT 11 in setting of H&H 7.9 on arrival - notably worse from previous. ALso D-dimer 5000 - Suspected secondary to DIC from sepsis, in setting of MDS, liver disease with HCV history, poor nutrition (Vit K deficiency possibility) - S/p 2 units FFP and Vit K and coags normalized 12/04 - Received platelets on 11/27, 12/01, 12/02, 12/03, 12/15, 12/16,12/18 -? Liver synthetic dysfunction versus nutritional deficiency with history of reported cirrhosis, treated hep C. Recent liver imaging with heterogenous texture but not cirrhotic in appearance. Was repleted with vitamin K, continue management as above (12) AURORA (acute kidney injury): Plan: Acute Kidney Injury - Has history of CKD with creatinine baseline around 0.7 - 0.9. Cr at baseline as of 12/04. With recurrent acute kidney injury on 12/20 Creatinine now improved after IV fluids and improved blood pressure with sepsis (13) Drug reaction: Plan: Secondary to cefepime With erythematous rash all over her trunk, arms, legs with large bullae all over thighs and buttocks Have since discontinued cefepime Continue Benadryl as needed Wound care for ruptured bullae No oral lesions (14) COVID-19: Plan: COVID-19 - Patient recently tested positive again for COVID-19, first time at the end of October. - During last hospitalization, was not hypoxic and therefore was not started on dexamethasone / remdesivir. - No steroids needed as her hypoxia is not from COVID. - As per infection control on 12/02, off isolation precautions (15) Hx of Clostridium difficile infection: Plan: History of C. difficile Infection, loose BM earlier in admission since improved - On chronic vancomycin suppressive therapy twice weekly - Increased vancomycin 125 Mg p.o. 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 (19) Migraine: Plan: - Continue Topamax, Fioricet as needed (20) Celiac disease: Plan: Continue gluten-free diet (21) Urge and stress incontinence: Plan: - Continue oxybutynin Plan: Disposition: Multiple goals of care discussions have been had throughout this hospitalization with multiple providers She reports an understanding of her medical condition, and that she would like to pursue treatments including ICU, pressors, CPR, and intubation if needed at this time. She understands that she is transfusion dependent, that she would likely need a repeat bone marrow biopsy for further hematology work-up and even at that she may not be a good candidate for transplant/treatment but she would like to pursue aggressive care at this time and follow-up on any options available to her. She does express understanding that many of these, especially CPR, would have a substantial compromise to her quality of life and surgical interventions could be futile to her given her level of medical fragility. She is able to verbalize this risk, but expresses she would want to pursue these at this time if there is a chance in extending the length of her life. Discussed with her family by phone, who expressed that while they feel that she may benefit from a palliative approach. 3/ Discussed her care with hematology/oncology. Patient is critically ill with likely secondary MDS, could have repeat bone marrow biopsy to confirm this but treatment options are limited and is unlikely to survive allograft. She remains sensitized with pressures to sites in her smear, continues to have severe thrombocytopenia and progressive weakening/worsening clinical status. Prognosis is poor, given her level of cross sensitivity from repeated transfusions and concurrent iron overload her treatment options are extremely limited. Patient is also suffering from a concurrent severe pneumonia with signs of cavitation/necrosis. ID recommendations also reviewed, Legionella pending.The above was discussed with Aleja Haq who reports that she understands her condition and would like to continue her current care, including intubation if necessary. Does not wish for hospice at this time, and expresses an understanding that she could become too sick to leave the hospital for outpatient hospice should she worsen she reports she understands that with her level of medical frailty she is highly likely to pass away on a vent and may not survive coming off of this, and that CPR would likely have a devastating effect on her quality of life but would like to remain full code at this time. Did have a visit with her grandkids, and has been discussing her goals of care extensively with her family who are appreciated of care, but also expressed that they understand that her prognosis is extremely grim. 3/4: Clinical deterioration with hypotension requiring addition of midodrine and ICU evaluation. Patient remains anemic with extremely limited ability to give blood transfusions and progressive iron overload, thrombocytopenic receiving platelets daily at this point, and continues with worsening pneumonia now expanded for atypical coverage as above. Visited goals of care with patient, initially expressing unchanged as above, on revisit patient expresses an understanding that CPR/intubation would likely be devastating to her quality of life and would like to move DNR/DNI but is not yet ready for comfort measures. Did discuss at length with her son who is an advocate for comfort measures for the patient so she could be with her children at the end of her life, but also respects marriages decision making. Patient of care and will continue to be in contact with provider team. 12/24: [employer]ELOPER as above Admission and Anticipated Discharge Date Admission Date: November 26, 2021 Subjective Seen at bedside with her son present appears chronically and critically ill. Not offer a lot of spontaneous speech, notes increased shortness of breath this morning and required BiPAP overnight. Endorses fatigue. denies acute bleeding. Denies chest pain. Confirms decision to move to comfort measures once family has been able to come in to bedside to see her. Review of Systems Review of Systems: 10 point review systems negative except as noted in subjective Physical Exam Physical Exam: General: Cachectic, frail. Appears severely ill. oriented to name, place, and year. HEENT: Abrasion overlying left eye. Multiple areas of skin hyperpigmentation/darkening and some scattered contusions and ecchymosis. Pulm: Tachypneic, on oxygen mask. Cardiac: Tachycardic on radial palpation. Abdominal: Deferred Results & Data Results & Data ([facility]) Vital Signs (Past 12 Hours) Vital Signs Temp Pulse Resp BP Pulse Ox 12/24/21 09:30 100 H 17 96/43 L 93 12/24/21 09:00 100 H 15 94/45 L 93 12/24/21 08:30 99 H 19 102/45 L 93 12/24/21 08:00 97 H 17 96/43 L 93 12/24/21 07:30 97 H 14 106/50 L 92 12/24/21 07:00 96 H 16 92/40 L 92 12/24/21 06:00 95 H 102/46 L 93 12/24/21 05:30 94 H 87/46 L 92 12/24/21 05:00 92 H 98/42 L 95 12/24/21 04:30 94 H 97/44 L 93 12/24/21 04:14 37.1 C 12/24/21 04:00 93 H 93/46 L 95 12/24/21 03:35 93 H 16 90 12/24/21 03:00 100 H 96 12/24/21 02:00 92 H 82/46 L 12/24/21 01:30 91 H 97/48 L 12/24/21 01:00 91 H 100/50 L 92 12/24/21 00:30 93 H 90/46 L 12/24/21 00:29 37.2 C 12/24/21 00:00 92 H 96/47 L 94 12/23/21 23:30 93 H 14 87/40 L 92 12/23/21 23:00 93 H 94/44 L 92 PG Care Time/CCT Total # of Minutes Spent Total Time Spent with Patient: Total time spent is greater than 50% in coordination of care (as documented) at patient's floor/unit and/or counseling patient: Coding Level of Care Code 68518 Subseq Hosp Care Lvl 1 Diagnoses Fever R50.9 UTI (urinary tract infection) N39.0 Sepsis A41.9 Pancytopenia D61.818 Acute respiratory failure with hypoxia J96.01 Chronic kidney disease N18.9 MDS (myelodysplastic syndrome) D46.9 UGIB (upper gastrointestinal bleed) K92.2 COPD (chronic obstructive pulmonary disease) J44.9 Coagulopathy D68.9 AURORA (acute kidney injury) N17.9 Drug reaction T50.905A COVID-19 U07.1 Hx of Clostridium difficile infection Z86.19 Cirrhosis of liver K74.60 SACHA (obstructive sleep apnea) G47.33 Prothrombin [id number] mutation D68.52 Migraine G43.909 Celiac disease K90.0 Urge and stress incontinence N39.46 Comfort measures only status Z51.5
[2021-12-24] MEDS ORDERED: ONDANSETRON 4 MG OD TAB SL PRN (10:51)
[2021-12-24] MEDS ORDERED: GLYCOPYRROLATE 0.2 MG/ML VIAL IV PRN (10:51)
[2021-12-24] MEDS ORDERED: LORazepam 0.5 MG TAB PO PRN (10:51)
[2021-12-24] MEDS ORDERED: ONDANSETRON INJ 2 MG/ML 2 ML VIAL IV PRN (10:51)
[2021-12-24] MEDS: HYDROmorphone INJ 0.5 MG/0.5 ML SYR IV PRN ×5 (11:11→23:12)
[2021-12-24 18:39] VITALS: BP 95/57; PULSE 103; TEMP 98.8; O2SAT 91
[2021-12-24] MEDS: MIRABEGRON ER 25 MG TAB PO SCH (21:08)
[2021-12-24] MEDS: clonazePAM 0.5 MG TAB PO SCH (21:08)
[2021-12-24] MEDS: SERTRALINE HCL 50 MG TABLET PO SCH (21:09)
[2021-12-24] MEDS: QUEtiapine FUMARATE 25 MG TABLET PO SCH (21:09)
[2021-12-24] MEDS: LORazepam 2 MG/1 ML VIAL IV PRN (21:10)
[2021-12-25] MEDS: LORazepam 2 MG/1 ML VIAL IV PRN ×2 (01:21→05:59)
[2021-12-25] MEDS: HYDROmorphone INJ 0.5 MG/0.5 ML SYR IV PRN (01:22)
[2021-12-25] MEDS ORDERED: HYDROmorphone INJ 0.5 MG/0.5 ML SYR IV STA (01:43)
[2021-12-25] MEDS: HYDROmorphone INJ 1 MG/ML SYRINGE IV PRN ×3 (01:54→08:37)
[2021-12-25] MEDS: PANTOprazole 40 MG TAB PO SCH (10:21)
[2021-12-25] MEDS: VANCOMYCIN HCL 125 MG/2.5ML SOLN PO SCH (10:21)
[2021-12-25] MEDS: TOPIRAMATE 100 MG TAB PO SCH (10:21)
[2021-12-25] MEDS: FLUTICASONE/VILANTEROL 100/25MCG 14 PUFFS/INHALER INH SCH (10:21)
[2021-12-25] MEDS: RASPBERRY SYRUP 5 ML UDP PO SCH (10:21)
[2021-12-25] MEDS: GABAPENTIN 400 MG CAP PO SCH (10:21)
[2021-12-25] MEDS: OXYBUTYNIN CHLORIDE XL 5 MG TABCR PO SCH (10:21)
[2021-12-25] MEDS: ADVANCED PROBIOTIC 1250 MG CAPSULE PO SCH (10:21)
--- NOTE | 2021-12-26 12:33 | Discharge Summary ---
Date of Service December 26, 2021 Admission HPI Per Admitting Provider Aleja Duron is a 66-year-old female with a history of HCV-induced cirrhosis s/p treatment with EGD last in 10/2019 not demonstrating varices ([facility] - Dr. 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 She reports that she has continued to feel fatigue since her hospital discharge. She also said that she has not had an appetite. Earlier today, she reports having 2 bouts of bowel incontinencewhich is very unusual for her. She says that, at baseline, she takes oral iron so her stools always look more darkly discolored. However, between 1300 and 1900, patient had multiple episodes of feeling ill and "bringing clots up." She said that her nose was also bleeding around this time. She says that her throat has been hurting; it has been difficult to eat/drink because of this. When asked if she thought she coughed up the blood or vomited up the blood, she was not quite sure, but thinks it was more likely vomit like in origin. She denies syncope, but endorses fatigue. No shortness of breath. No chest pain. No changes in medications within the last several days; does endorse getting Procrit on Sunday (6 days ago). In the ER, patient was found to be persistently leukopenic to 1.24 and neutropenic to 0.36; she was also anemic to 7.9, thrombocytopenic to 11 (14 at previous discharge). PTT 77.2, INR 2.5. She was noted to have mild AURORA BUN 35/creatinine 1.26. She also retested positive again for COVID-19. Her chest x-ray did demonstrate bilateral airspace opacities and chronic emphysema; L- sided opacities are new. She was given a bolus of normal saline, started on Protonix. Discharge Data Allergies Allergy/AdvReac Type Severity Reaction Status Date / Time bee venom protein (honey bee) Allergy Severe Difficulty Verified 11/26/21 21:14 Breathing adhesive Allergy Intermediate Red torn Verified 11/26/21 21:14 skin cefepime Allergy Intermediate Rash Verified 12/20/21 17:57 Iodinated Contrast Media Allergy Intermediate Hives Verified 11/26/21 21:14 iodine Allergy Intermediate Hives Verified 11/26/21 21:14 levofloxacin Allergy Intermediate numbness/we Verified 11/26/21 21:14 akness pregabalin Allergy Intermediate fever?/?cher Verified 11/26/21 21:14 h strawberry Allergy Intermediate Hives Verified 11/26/21 21:14 Sulfa (Sulfonamide Allergy Intermediate Rash, hives Verified 11/26/21 21:14 Antibiotics) vancomycin Allergy Intermediate Bullous Verified 11/26/21 21:14 skin rash allopurinol Allergy Mild Rash Verified 11/26/21 21:14 ceftriaxone [From Rocephin] Allergy Mild Rash Verified 11/26/21 21:14 piperacillin [From Zosyn] Allergy Mild Rash Verified 11/26/21 21:14 tazobactam [From Zosyn] Allergy Mild Rash Verified 11/26/21 21:14 venlafaxine Allergy Unknown Unknown Verified 11/26/21 21:14 gluten AdvReac Severe Celiac Dz Verified 11/26/21 21:14 = GI symptoms propoxyphene AdvReac Intermediate BACK END WEB DEVELOPER side Verified 11/26/21 21:14 effects Consultations 11/26/21 22:20 ED Decision to Admit Stat 11/26/21 22:41 Consult Gastroenterology Routine 11/26/21 23:25 Consult Beef Boner Routine 11/28/21 13:34 Consult Hematology Routine 11/28/21 20:08 Consult Urology Routine 12/14/21 13:36 Consult Gastroenterology Routine 12/19/21 12:01 Consult Infectious Diseases Routine 12/24/21 10:52 Consult Palliative Care Routine Procedures Performed Operation Date: 12/15/21 11:55 <No data on this case meets the specified criteria> Operation Date: 12/16/21 16:55 <No data on this case meets the specified criteria> Operation Date: 12/18/21 08:30 <No data on this case meets the specified criteria> Operation Date: 12/19/21 12:50 Actual Procedures p Cystoscopy, Bilateral Stent Exchange, Retrograde pyelograms(Bilateral) - Luis Cervantes, Ordered Studies 12/19/21 12:00 FL retrograde includes kub Routine Hospital Course (1) Comfort measures only status: Comfort measures status 12/24: Patient with continued clinical deterioration on pressors with extensive treatment as below. Patient expressed readiness to move to comfort measures only today with son at bedside to kettle operator, and then later to hospitalist at bedside. Like to continue phenylephrine and current treatment until additional family is able to be at bedside, then discontinue pressors and moved to comfort measures status in the hospital. At this time patient is to critically ill with worsening multiorgan failure including pancytopenia/bone marrow shutdown, intravascular hemolysis with blood sensitization, iron overload, AURORA, and progressive hypoxic respiratory failure with superimposed fevers likely from pneumonia not responding to broad and atypical coverage with treatment course limited by extensive severe allergic reactions. Will follow, convert to comfort measures once family has arrived. [facility], morphine for pain, glycopyrrolate/atropine as needed, discontinue lab draws/vitals monitoring, no further transfusions/antibiotics/interventions. Discussed with nursing visitation in the circumstance, patient may have family with her and will transfer to third floor once ready, however should not have children/family members under age 18 at this time. Documentation below left for narrative completion; labs, antibiotics, transfusions, pressors, and other interventions noted below being discontinued on moved to ACROBATIC DANCER. (2) Fever: Fever, recurrent She with multiple course of antibiotics during admission with intermittent resolution of fevers Fever 12/18 recurrent and acute hypoxic respiratory failure with crackles, UA clear, CXR with evidence of pneumonia Patient treated with cefepime 12/18 as was already on Merrem, patient had a allergic reaction with bullae to cefepime which was discontinued Aztreonam started 12/20 for gram-negative coverage Legionella pending RVP pending Respiratory sputum was ordered, unable to be collected due to inability to expectorate, collection deferred following ACROBATIC DANCER goals of care Repeat CXR with recent pneumonia and concern for necrosis/cavitation in upper field, with superimposed edema Treated with diuresis balanced against blood pressure, patient is also hypoalbuminemic and borderline hypotensive but improved with diuresis creatinine stable -Aztreonam started on 12/20 to cover for resistant gram-negative pneumonia Appreciate ID consultation-recommends discontinuing aztreonam as would expect meropenem to cover for Pseudomonas; also recommends checking respiratory virus panel and Legionella antigen, possible chest CT and pulmonary consult Chronic suppressive Diflucan resumed Worsened hypotension 12/23 in the setting of diuresis. Initially well tolerated, but hypotensive with hypoalbuminemia following morning doses. Repeat chest x- ray does show continued pulmonary edema, but with worsening pneumonia as well. RVP, Legionella remains pending as noted above, sputum culture pending, patient is maintained on aztreonam gram-negative coverage at this time. Patient with hives, rash and severe allergy to vancomycin, Rocephin, Zosyn, cefepime, sulfa and adverse reactions to levofloxacin in the past. 12/23: patient's clinical worsening, persistent fever, and worsening pneumonia on chest x-ray expanding antibiotics is reasonable and would cover for Legionella. Atypical coverage added with azithromycin, and EKG recheck prior for QT. Patient is on multiple QT prolonging medications and will need QT monitoring daily. Patient receiving blood, albumin, and a small amount of fluid back as suspect some of her hypotension is from overly rapid diuresis versus worsening infection. Pro-Paul/repeat cultures pending. Midodrine 7.5mg TID started for hypotension. DNR/DNI but not yet ready for CML, see below 12/24: Worsened hypoxia, AURORA, required BiPAP overnight, on oxygen mask. Decision made to pursue ACROBATIC DANCER goals of care as noted above. (3) UTI (urinary tract infection): History of Hydronephrosis with Ureteral Stent Placement. - history of ureteral stents placed in 07/2021 and subsequent exchange every 3 months, with some delays due to acute medical issues - chronic obstruction hydronephrosis with candidal UTI and known colonization of her ureteral stents - Unfortunately, had associated UTIs since that time-this admission with ESBL Klebsiella -Urology consulted about stent exchange - Spoke with urology on 12/05. Recommend that she be evaluated by tertiary care center for stent removal and nephrostomy tubes. This was discussed with tertiary care who did not accept patient for nephrostomy tube placement, stent exchange was revisited with urology and delayed multiple days secondary to acute anemia and hypotension/sepsis Completed course of meropenem on 12/06. Became febrile again 12/07, meropenem was restarted 12/08 for 10 day course Multiple discussions week of 12/15 with [facility] who did not accept patient for transfer for nephrostomy tube placement. Also discussed with [facility] hematology who recommended outpatient follow-up as below. Caspofungin dose adjusted perioperatively with history of Rachelle glabrata, anticipate conversion back to fluconazole for daily prophylaxis after course of caspofungin complete -Finally went for ureteral stent exchange on 12/19 despite ongoing fevers-needed to do it while on caspofungin to have best chance of not inducing candidemia repeat UA 12/19 neg for infection -On 12/19, again asked patient if she would be willing to transfer for nephrostomy tube placement to a larger hospital that is used to having cancer patients with thrombocytopenia and an experienced IR department i.e. somewhere in [place] or [place] or [place]. She still is unsure if she would do that at this time -Meropenem/caspofungin discontinued 12/21. Prophylactic Diflucan resumed. Additional abx as above (4) Sepsis: Sepsis- with recurrent UTI early in the course of admission, then another round of sepsis for recurrent UTI, and now with pneumonia on 12/18 She is chronically neutropenic and immunosuppressed Did require ICU stay twice during this admission for Levophed ESBL with Klebsiella pneumonia, patient did finish a course of meropenem on 12/06 but became febrile 24 hours on antibiotics and was recultured positive for ESBL E. coli sensitive to meropenem. 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, temporarily converted to caspofungin pending stent exchange-now complete -Then added on cefepime to cover in case of resistant Pseudomonas with pneumonia on 12/18 -allergic reaction to Cefepime 12/19 with rash and bullae developing 12/20--> stopped Cefepime, Azithro started as above MRSA swab is negative Appreciate ID consultation Legionella ordered, was pending at time of ACROBATIC DANCER order set although patient was treated with adjunct azithromycin with continued clinical deterioration (5) Pancytopenia: Pancytopenia/secondary MDS - Patient with known 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 -S/p Neupogen 480 mcg SQ daily x 3 days-final dose on 11/29 -S/p Procrit 40,000 units x 1 on 11/29 - Received platelets on 11/27, 12/01, 12/02, 12/04, 12/06, 12/15, 12/18 12/19, 12/20, 3 3 - Received 2 units of PRBCs on 11/27 & 2 units on 12/06; 1 unit on 12/09, and 2 units on 12/16 Transfusion threshold 7 mg/DL,-no transfusion unless bleeding Patient difficult blood bank transfusion, requires [place] blood bank supply Discussed with PS danya, patient was recommended for outpatient follow-up with repeat bone marrow biopsy, was not accepted/recommended for transfer. Discussion with [facility]. While patient could have bone marrow biopsy repeated here, first attempt was suboptimal and suggested that this be done by tertiary care where she would follow-up. May consider pending clinical course Revisited with hematology 01/18, considering repeat bone marrow biopsy although patient with comorbid infection, pancytopenia, and severe sensitization with grim prognosis Was remain less than 10, hemoglobin downtrending close to 7 likely gradual intravascular hemolysis. 3/ with downtrending hemoglobin, hypotension today in the setting of diuresis above. 1 unit expiring today, to be given, platelets pending on order 12/24 prisoner classification interviewer as above (6) Acute respiratory failure with hypoxia: Acute Hypoxic Respiratory Failure. 2/2 sepsis with concern for recent Covid upon admission Then was on room air for several weeks, now with increased oxygen requirements in the setting of pneumonia with? Underlying fluid overload from transfusions Wean off as tolerated Treating pneumonia as above Lasix as above, held with hypotension following AM dosing worsening respiratory failure on bipap 12/23, ACROBATIC DANCER / (7) Chronic kidney disease: CKD stage II-III (8) MDS (myelodysplastic syndrome): - As above. -Patient currently is transfusion dependent. - The patient has discussed her prognosis with multiple providers but does not want to pursue hospice care at this time. See goals discussion above - At this time we are only providing temporizing conditions with transfusions & IV abx. -Platelets down to 4 despite receiving platelets last night for hematuria Possibly worsened by current sepsis Transfuse platelets on 12/21 Benadryl and Tylenol prior to transfusions Treatment as above (9) UGIB (upper gastrointestinal bleed): Suspected UGIB upon initial arrival - History primarily concerning for hematemesis/UGIB based on recent odynophagia, "spitting up blood" (non-projectile), nausea, decreased appetite. ?hemoptysis or epistaxis - Known history of HCV-induced cirrhosis. Last EGD seems to be 10/2019, per Dr. Chavez's [facility] note, which did NOT reveal any esophageal varices; did show Z-line irregularities and esophageal plaques c/w candidiasis - No need for octreotide with no h/o known varices - Initially in setting of significant coagulopathy (INR 2.5, PTT 77.2, Plt 11) -- notably progressed since prior admission, coagulopathy improved after FFP and Vit K. - GI consulted: Defer EGD unless emergent/emergent specialist patient has not had any signs/symptoms of upper GI bleed or melena/blood per rectum. consider outpatient EGD. patient with high periprocedural risk, continue PPI converted to twice daily. Hemoccult negative. - Initially on PPI gtt now been converted to PPI po bid -Patient with intravascular hemolysis and schistocytes, no overt GI bleeding (10) COPD (chronic obstructive pulmonary disease): With a history of smoking and lung cancer. - Nebs as needed (11) Coagulopathy: Coagulopathy / Thrombocytopenia - Admission labs concerning for INR 2.5 / PTT 77.2 / PLT 11 in setting of H&H 7.9 on arrival - notably worse from previous. ALso D-dimer 5000 - Suspected secondary to DIC from sepsis, in setting of MDS, liver disease with HCV history, poor nutrition (Vit K deficiency possibility) - S/p 2 units FFP and Vit K and coags normalized 12/04 - Received platelets on 11/27, 12/01, 12/02, 12/03, 12/15, 12/16,12/18 -? Liver synthetic dysfunction versus nutritional deficiency with history of reported cirrhosis, treated hep C. Recent liver imaging with heterogenous texture but not cirrhotic in appearance. Was repleted with vitamin K, continue management as above (12) AURORA (acute kidney injury): Acute Kidney Injury - Has history of CKD with creatinine baseline around 0.7 - 0.9. Cr at baseline as of 12/04. With recurrent acute kidney injury on 12/20 Creatinine now improved after IV fluids and improved blood pressure with sepsis (13) Drug reaction: Secondary to cefepime With erythematous rash all over her trunk, arms, legs with large bullae all over thighs and buttocks Have since discontinued cefepime Continue Benadryl as needed Wound care for ruptured bullae No oral lesions (14) COVID-19: COVID-19 - Patient recently tested positive again for COVID-19, first time at the end of October. - During last hospitalization, was not hypoxic and therefore was not started on dexamethasone / remdesivir. - No steroids needed as her hypoxia is not from COVID. - As per infection control on 12/02, off isolation precautions (15) Hx of Clostridium difficile infection: History of C. difficile Infection, loose BM earlier in admission since improved - On chronic vancomycin suppressive therapy twice weekly - Increased vancomycin 125 Mg p.o. once daily while on antibiotics (16) Cirrhosis of liver: - Noted with a history of hep C that has been treated (17) SACHA (obstructive sleep apnea): Obstructive Sleep Apnea - Utilizes CPAP qHS -- utilize while here (18) Prothrombin [id number] mutation: With a history of VTE, no longer on anticoagulation given severe pancytopenia and history of bleeding. (19) Migraine: - Continue Topamax, Fioricet as needed (20) Celiac disease: Continue gluten-free diet (21) Urge and stress incontinence: - Continue oxybutynin Disposition: Multiple goals of care discussions have been had throughout this hospitalization with multiple providers She reports an understanding of her medical condition, and that she would like to pursue treatments including ICU, pressors, CPR, and intubation if needed at this time. She understands that she is transfusion dependent, that she would likely need a repeat bone marrow biopsy for further hematology work-up and even at that she may not be a good candidate for transplant/treatment but she would like to pursue aggressive care at this time and follow-up on any options available to her. She does express understanding that many of these, especially CPR, would have a substantial compromise to her quality of life and surgical interventions could be futile to her given her level of medical fragility. She is able to verbalize this risk, but expresses she would want to pursue these at this time if there is a chance in extending the length of her life. Discussed with her family by phone, who expressed that while they feel that she may benefit from a palliative approach. 3/3 Discussed her care with hematology/oncology. Patient is critically ill with likely secondary MDS, could have repeat bone marrow biopsy to confirm this but treatment options are limited and is unlikely to survive allograft. She remains sensitized with pressures to sites in her smear, continues to have severe thr ombocytopenia and progressive weakening/worsening clinical status. Prognosis is poor, given her level of cross sensitivity from repeated transfusions and concurrent iron overload her treatment options are extremely limited. Patient is also suffering from a concurrent severe pneumonia with signs of cavitation/necrosis. ID recommendations also reviewed, Legionella pending.The above was discussed with Aleja Haq who reports that she understands her condition and would like to continue her current care, including intubation if necessary. Does not wish for hospice at this time, and expresses an understanding that she could become too sick to leave the hospital for outpatient hospice should she worsen she reports she understands that with her level of medical frailty she is highly likely to pass away on a vent and may not survive coming off of this, and that CPR would likely have a devastating effect on her quality of life but would like to remain full code at this time. Did have a visit with her grandkids, and has been discussing her goals of care extensively with her family who are appreciated of care, but also expressed that they understand that her prognosis is extremely grim. 3/4: Clinical deterioration with hypotension requiring addition of midodrine and ICU evaluation. Patient remains anemic with extremely limited ability to give blood transfusions and progressive iron overload, thrombocytopenic receiving platelets daily at this point, and continues with worsening pneumonia now expanded for atypical coverage as above. Visited goals of care with patient, initially expressing unchanged as above, on revisit patient expresses an understanding that CPR/intubation would likely be devastating to her quality of life and would like to move DNR/DNI but is not yet ready for comfort measures. Did discuss at length with her son who is an advocate for comfort measures for the patient so she could be with her children at the end of her life, but also respects marriages decision making. Patient of care and will continue to be in contact with provider team. 3/5: ACROBATIC DANCER as above Discharge Plan Discharge Items Patient Disposition: Other Date/Time: 12/25/21 10:44 Coding Diagnoses Comfort measures only status Z51.5 Fever R50.9 UTI (urinary tract infection) N39.0 Sepsis A41.9 Pancytopenia D61.818 Acute respiratory failure with hypoxia J96.01 Chronic kidney disease N18.9 MDS (myelodysplastic syndrome) D46.9 UGIB (upper gastrointestinal bleed) K92.2 COPD (chronic obstructive pulmonary disease) J44.9 Coagulopathy D68.9 AURORA (acute kidney injury) N17.9 Drug reaction T50.905A COVID-19 U07.1 Hx of Clostridium difficile infection Z86.19 Cirrhosis of liver K74.60 SACHA (obstructive sleep apnea) G47.33 Prothrombin [id number] mutation D68.52 Migraine G43.909 Celiac disease K90.0 Urge and stress incontinence N39.46
--- NOTE | 2021-12-26 12:35 | Death Pronouncement Note ---
Date of Service December 26, 2021 Pronouncement Note Admission Date November 26, 2021 Preliminary Cause of (1) Fever: (2) Pancytopenia: (3) Acute respiratory failure with hypoxia: (4) MDS (myelodysplastic syndrome): (5) COPD (chronic obstructive pulmonary disease): (6) Cirrhosis of liver: Additional Data Attending physician: Oswaldo Gibson Coding Diagnoses Fever R50.9 Pancytopenia D61.818 Acute respiratory failure with hypoxia J96.01 MDS (myelodysplastic syndrome) D46.9 COPD (chronic obstructive pulmonary disease) J44.9 Cirrhosis of liver K74.60
== END 2021-12-25 12:35 | disposition expired | DRG 853 ==
LOC: ED 20:33 → EDINP 22:30 → SUATTDRO 22:30 → 2E 11-27 01:11 → 3E 12-02 23:28 → 1E 12-15 16:48 → 2N 12-17 20:47 → 1E 12-23 12:43